=== PATIENT | female | born 1945 | race Caucasian/White ===

== ENCOUNTER → 2016-08-25 | Outpatient (CLI) | payer MEDICARE, OTHER ==
[~2016-08-25] MED LIST: ACET-2469 PO; ALPR0.254 PO; AMLO5TAB2 PO; ASPI-999 PO; CYCL10TA9 PO; DIPH25TA49 PO; DOCU-238 PO; FURO-125 PO; GLYC10.7 IH; LISI-552 PO; METO-395 PO; OMEP40CA36 PO; OXYC-471 PO; PIRO20CA2 PO; PRD10T PO; SIMV40TA4 PO; TRIA1CAP4 PO
== END ==
LOC: CARD 14:51
PROVIDERS: ATTEND Internal Medicine Cardiovascular Disease
DX: I25.10 Atherosclerotic heart disease of native coronary artery without angina pectoris (principal); I10 Essential (primary) hypertension; R06.02 Shortness of breath; Z72.0 Tobacco use
CPT/HCPCS: 93306

== ENCOUNTER → 2016-08-27 | Outpatient (CLI) | payer MEDICARE, OTHER ==
--- NOTE | 2016-08-27 12:28 | Diagnostic Imaging Report ---
PROCEDURE: Lung cancer screening CT chest without contrast. TECHNIQUE: Multiple contiguous axial images were obtained through the chest without the use of intravenous contrast. This is performed with a low-dose protocol. INDICATION: Currently asymptomatic patient with 46 pack years history of smoking. Comparison: None. Findings: There is upper lobe predominant emphysema. There is a noncalcified nonspecific 6 mm nodule in the right lower lobe, axial image 36 and 6 mm left lower lobe nodule image 37 seen. There are other nodules that are calcified, less than a centimeter in size in the left lung base and there are calcified lymph nodes in the right hilum. There are focal areas of consolidation with suggestion of volume loss within the medial segment of the right middle lobe and the inferior lingula suggestive of scarring or atelectasis. No fibrotic changes or bronchiectasis. The mediastinum demonstrates no significantly enlarged noncalcified nodes. No enlarged axillary lymph nodes. Normal caliber of the thoracic aorta is seen. The heart size is normal. No pericardial or pleural effusion. Moderate coronary artery calcified atherosclerotic plaque is seen. The osseous structures demonstrate an age-indeterminate compression fracture of T6 vertebral body. Nonspecific slightly asymmetric parenchymal densities are seen in the breast, possibly a normal variation. Correlation with clinical exam and mammography is recommended. IMPRESSION: 1. Noncalcified bilateral lower lobe 6 mm pulmonary nodules seen. Other calcified nodules are suggestive of prior granulomatous infection. Six months followup for the noncalcified nodules recommended. 2. Nonspecific atelectasis or scarring is seen in the medial segment of the right middle lobe, and in the inferior lingula presumably sequela of prior infection. 3. Mild emphysema. 4. Age-indeterminate compression fracture of T6 vertebral body. 5. Nonspecific slightly asymmetric appearance of the breast parenchyma could be a normal variation. Correlate with mammography and breast ultrasound. Lung Rads Category 3. Likely benign. Recommendations: 6 months low-dose CT scan followup exam. Also clinical correlation for the other findings and mammography evaluation is suggested. Dictated by: Dictated on workstation # [id number]
== END ==
LOC: RAD 11:08 → EDUNIT# 11:45
PROVIDERS: ATTEND Nurse Practitioner Family
DX: R91.8 Other nonspecific abnormal finding of lung field (principal); M48.54XA Collapsed vertebra, not elsewhere classified, thoracic region, initial encounter for fracture; N64.89 Other specified disorders of breast; F17.210 Nicotine dependence, cigarettes, uncomplicated

== ENCOUNTER → 2016-09-10 | Outpatient (CLI) | payer MEDICARE, OTHER ==
[~2016-09-10] MED LIST changes: -ACET-2469 PO; -ALPR0.254 PO; -AMLO5TAB2 PO; -ASPI-999 PO; -CYCL10TA9 PO; -DIPH25TA49 PO; -DOCU-238 PO; -FURO-125 PO; -GLYC10.7 IH; -LISI-552 PO; -METO-395 PO; -OMEP40CA36 PO; -OXYC-471 PO; -PIRO20CA2 PO; -PRD10T PO; +RT-ALBUTEROL SULF 2.5 MG/3 ML PRE-MIX VIAL IH ONE; -SIMV40TA4 PO; -TRIA1CAP4 PO
== END ==
LOC: EDUNIT# 08-30 16:45 → RT 14:51
PROVIDERS: ATTEND Nurse Practitioner Family
DX: R06.02 Shortness of breath (principal); F17.200 Nicotine dependence, unspecified, uncomplicated
CPT/HCPCS: 94060; 94640; 94726; 94729

== ENCOUNTER → 2016-10-04 | Outpatient (CLI) | payer MEDICARE, OTHER | LOC: LAB 08:20 | PROVIDERS: ATTEND Nurse Practitioner Family | DX: R06.02 Shortness of breath (principal) ==

== ENCOUNTER → 2016-10-04 | Outpatient (CLI) | payer MEDICARE, OTHER ==
[~2016-10-04] VITALS: Ht 160 cm; Wt 64.9 kg
[~2016-10-04] MED LIST changes: +CATHETER FLUSH 10 ML SYR IV PRN; +REGADENOSON 0.4 MG/5 ML SYR (LEXISCAN) IV ONE; -RT-ALBUTEROL SULF 2.5 MG/3 ML PRE-MIX VIAL IH ONE
[2016-10-04 09:29] VITALS: BP 157/121
--- NOTE | 2016-10-04 12:29 | STRESS TEST ---
DATE OF SERVICE: 10/04/2016 LEXISCAN MYOVIEW STRESS TEST REPORT REFERRING PHYSICIAN: There is no local physician. Baseline heart rate is 71. Baseline blood pressure is 157/120. Baseline EKG is sinus rhythm with no ischemic changes. SUMMARY: The patient was injected with 10.43 mCi of technetium-99 Myoview and the resting images were obtained. Then, the patient received 0.4 mg of Lexiscan followed by 32.5 mCi of technetium-99 Myoview. Throughout the test, there were no EKG changes. The resting and stress images were reviewed and compared in the short axis, horizontal long axis, and vertical long axis views. Review of the images showed good radiotracer uptake with no significant ischemia or infarction with SSS is zero TID value 1.07. On the gated images, the left ventricle appeared to be normal size with normal contractility, calculated ejection fraction 84%. CONCLUSION: 1. The patient tolerated Lexiscan well. 2. No ischemia or infarction on SPECT images. 3. Normal left ventricular size with normal contractility, calculated ejection fraction 84%. Job ID: [id number] DocumentID: [id number] Dictated Date: 10/04/2016 11:51:54 Manager Multicultural Date: 10/04/2016 12:23:32 Dictated By: ORTEGA SCHAEFFER MD
== END ==
LOC: CARD 08:14 → EDUNIT# 10:45
PROVIDERS: ATTEND Internal Medicine Cardiovascular Disease
DX: I25.10 Atherosclerotic heart disease of native coronary artery without angina pectoris (principal); I10 Essential (primary) hypertension; R06.02 Shortness of breath; Z72.0 Tobacco use
CPT/HCPCS: 78452; 93017

== ENCOUNTER 2016-11-22 09:15 | Outpatient (CLI) | payer MEDICARE, OTHER ==
[~2016-11-22] VITALS: Ht 154.9 cm; Wt 69.4 kg
[2016-11-22 09:24] VITALS: BP 138/71
[2016-11-22] MEDS ORDERED: GLYC10.7 IH (09:45)
[2016-11-22] MEDS ORDERED: DOCU-238 PO (09:45)
[2016-11-22] MEDS ORDERED: METO-274 PO (09:45)
[2016-11-22] MEDS ORDERED: ALPR0.254 PO (09:45)
[2016-11-22] MEDS ORDERED: ACET-2469 PO (09:45)
[2016-11-22] MEDS ORDERED: TRIA1CAP4 PO (09:45)
[2016-11-22] MEDS ORDERED: ASPI-999 PO (09:45)
[2016-11-22] MEDS ORDERED: SIMV40TA4 PO (09:45)
[2016-11-22] MEDS ORDERED: DIPH25TA49 PO (09:45)
[2016-11-22] MEDS ORDERED: OMEP40CA36 PO (09:45)
[2016-11-22] MEDS ORDERED: LISI-552 PO (09:45)
[2016-11-22] MEDS ORDERED: PIRO20CA2 PO (09:45)
[2016-11-22 10:24] LABS: BASOPHILS % (AUTO) 0 % (0-10); EOSINOPHILS # (AUTO) 0.2 10^3/uL (0.0-0.3); EOSINOPHILS % (AUTO) 2 % (0-10); LYMPHOCYTES # (AUTO) 2.5 X 10^3 (1.0-4.0); LYMPHOCYTES % (AUTO) 33 % (12-44); MEAN CORPUSCULAR HEMOGLOBIN 31 PG (25-34); MEAN CORPUSCULAR HGB CONC 34 G/DL (32-36); MEAN CORPUSCULAR VOLUME 90 FL (80-99); MEAN PLATELET VOLUME 9.3 FL (7.4-10.4); MONOCYTES # (AUTO) 0.8 X 10^3 (0.0-1.0); MONOCYTES % (AUTO) 11 % (0-12); NEUTROPHILS # (AUTO) 3.9 X 10^3 (1.8-7.8); NEUTROPHILS % (AUTO) 53 % (42-75); PLATELET COUNT 241 10^3/uL (130-400); RED BLOOD COUNT 4.96 10^6/uL (4.35-5.85); RED CELL DISTRIBUTION WIDTH 13.2 % (10.0-14.5); WHITE BLOOD COUNT 7.4 10^3/uL (4.3-11.0)
[2016-11-22 10:55] LABS: ANION GAP 12 MMOL/L (5-14); BLOOD UREA NITROGEN 22 MG/DL (7-18); BUN/CREATININE RATIO 28; CALCIUM 9.2 MG/DL (8.5-10.1); CARBON DIOXIDE 25 MMOL/L (21-32); CHLORIDE 98 MMOL/L (98-107); CREATININE SERUM 0.78 MG/DL (0.60-1.30); GFR ESTIMATED > 60; GLUCOSE 99 MG/DL (70-105); POTASSIUM 4.5 MMOL/L (3.6-5.0); SODIUM 135 MMOL/L (135-145)
== END 2016-11-22 10:15 | disposition home or self-care (01) ==
LOC: PREOP 09:15
PROVIDERS: ATTEND Orthopaedic Surgery
DX: Z01.812 Encounter for preprocedural laboratory examination (principal); M48.061 Spinal stenosis, lumbar region without neurogenic claudication
CPT/HCPCS: 36415; 80048; 85025; 86850; 86900; 86901; 87081

== ENCOUNTER 2016-12-06 07:45 | Inpatient (IN) | payer MEDICARE, OTHER ==
[2016-12-06] VITALS (10 sets, daily range): BP systolic 74–150; BP diastolic 42–86
[~2016-12-06] VITALS: Ht 154.9 cm; Wt 69.4 kg
[~2016-12-06 07:45] MED LIST changes: +ACET-2469 PO; +ALPR0.254 PO; +ASPI-999 PO; -CATHETER FLUSH 10 ML SYR IV PRN; +DIPH25TA49 PO; +DOCU-238 PO; +GLYC10.7 IH; +LISI-552 PO; +METO-274 PO; +OMEP40CA36 PO; +PIRO20CA2 PO; -REGADENOSON 0.4 MG/5 ML SYR (LEXISCAN) IV ONE; +SIMV40TA4 PO; +TRIA1CAP4 PO
--- OUTSIDE RECORDS SUMMARY | 2016-12-06 07:53 | XMS REPORT ---
Author Author [facility] Medical Staff Organization [facility] Address [address] [id number] Phone [phone] Summary purpose TRANSITION OF CARE AUTO GENERATION Chief Complaint and Reason for Visit No authorized Reason for Visit (Admitting Diagnosis) is available for this visit. Problem list No authorized problems tracked for continuity of care are available for this visit. Encounters No authorized problems tracked for encounter diagnoses are available for this visit. Medications No medications recorded for this patient visit Allergies, adverse reactions, alerts Allergen Category Ingredient Status Reaction Severity Onset No known drug allergies No known drug allergies No known drug allergies Confirmed or Verified Immunizations No immunizations recorded for this patient visit Relevant diagnostic tests and/or laboratory data RESULTS Radiology Results [id number] Bilateral Screen Digital Mammo DATE OF EXAM: 2015 [facility] 0845-BILAT SCREEN DIG MAMMO : RADIOLOGY REPORT ADDENDED REPORT: DATE OF SERVICE: 05/28/15 HISTORY: Screening exam BILATERAL DIGITAL SCREENING MAMMOGRAM 0917 HOURS Comparison is made with 11/05/2013 and 10/10/2012. There are scattered residual fibroglandular densities. There are no masses or grouped microcalculi. There is no distortion or asymmetry. IMPRESSION: Negative mammograms BI-RADS I. Fidel White MD [facility]/mo05/28/2015 09:49:00 / 05/28/2015 09:53:01 cc:Dr. Rajesh Acosta This document has been electronically Signed by: FIDEL WHITE MD On: Jun 06 20154:40P History of procedures Procedure Code Code Type Description Date Performed Performing Physician 17608 CPT-4 MAMMOGRAM, SCREENING 05-28-2015 RAJESH ACOSTA 10870 CPT-4 COMP SCREEN MAMMOGRAM ADD-ON 05-28-2015 RAJESH ACOSTA Functional status No functional or cognitive status observations are available for this visit. Vital signs No authorized vital signs are available for this visit. Social history No Social History or smoking status observations were recorded for this visit. ( Unknown if ever smoked.) Treatment Plan No treatment plan text is available for this visit. Hospital discharge instructions No discharge instruction text is available for this visit.
--- OUTSIDE RECORDS SUMMARY | 2016-12-06 07:54 | XMS REPORT | Clinical Summary ---
Author Author Admin, HILARIA Organization [employer] Address Unknown Phone Unavailable Allergies, Adverse Reactions, Alerts Allergy Name Reaction Description Start Date Severity Status Provider HYDROCODONE Critical Active Danuta Modi Conditions or Problems Problem Name Problem Code Onset Date Status Entry Date Provider Comment Standard Description Annotate HYPERTENSION 401.9 Active Gareth Cancino MD Unspecified essential hypertension HYPERCHOLESTEROLEMIA, PURE 272.0 Active Gareth Cancino MD Pure hypercholesterolemia NICOTINE ADDICTION 305.1 Active Gareth Cancino MD Tobacco use disorder INSOMNIA 780.52 Active Gareth Cancino MD Insomnia, unspecified HYPERLIPIDEMIA, OTHER UNSPECIFIED 272.4 Active Gareth Cancino MD Other and unspecified hyperlipidemia PREVENTIVE HEALTH CARE V70.0 Active Gareth Cancino MD Routine general medical examination at a health care facility SKIN LESION 709.9 Active Gareth Cancino MD Unspecified disorder of skin and subcutaneous tissue CAULIFLOWER EAR 738.7 Active Gareth Cancino MD Cauliflower ear DYSPLASTIC NEVUS, CHEST 216.5 Active Gareth Cancino MD Benign neoplasm of skin of trunk, except scrotum DYSPLASTIC NEVUS, FACE 216.3 Active Gareth Cancino MD Benign neoplasm of skin of other and unspecified parts of face SEBACEOUS CYST 706.2 Active Gareth Cancino MD Sebaceous cyst ENCOUNTER FOR REMOVAL OF SUTURES V58.32 Active Gareth Cancino MD Encounter for removal of sutures BRONCHITIS, ACUTE WITH MILD BRONCHOSPASM 466.0 Active Noman Edwards DO Acute bronchitis URINARY FREQUENCY 788.41 Active Danuta Modi Urinary frequency URINARY HESITANCY 788.64 Active Gareth Cancino MD Urinary hesitancy TOBACCO ABUSE 305.1 Active Gareth Cancino MD Tobacco use disorder SEBORRHEIC KERATOSIS 702.19 Active Gareth Cancino MD Other seborrheic keratosis COPD 496 Active Gareth Cancino MD Chronic airway obstruction, not elsewhere classified ACTINIC KERATOSIS, CHEEK, LEFT 702.0 Active Gareth Cancino MD Actinic keratosis Rib pain, left sided 786.50 Active Gareth Cancino MD Unspecified chest pain Bronchitis-Acute 466.0 Inactive Gareth Cancino MD Acute bronchitis GERD 530.81 Active Gareth Cancino MD Esophageal reflux Dysuria 788.1 Active Gareth Cancino MD Dysuria Contact dermatitis 692.9 Active Gareth Cancino MD Contact dermatitis and other eczema, unspecified cause Skin lesion 709.9 Active 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 Unspecified disorder of skin and subcutaneous tissue Folliculitis 704.8 Active Gareth Cancino MD Other specified diseases of hair and hair follicles Low back pain, chronic 724.2 Active Gareth Cancino MD Lumbago Frequency of urination 788.41 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 Urinary frequency Actinic keratosis 702.0 Active Gareth Cancino MD Actinic keratosis Pneumonia 486 Active Gareth Cancino MD Pneumonia, organism unspecified Hypokalemia 276.8 Active Gareth Cancino MD Hypopotassemia Spinal stenosis 724.00 Active Gareth Cancino MD Spinal stenosis of unspecified region Bronchitis-Acute ICD-466.0 Inactive Gareth Cancino MD Medication List Medication Instructions Start Date Stop Date Generic Name NDC Status Provider Patient Instruction IPRATROPIUM-ALBUTEROL 0.5-2.5 (3) MG/3ML INH SOLN nebulize 1 vial every 6hrs prn shortness of breath IPRATROPIUM-ALBUTEROL 11346028985 Active Gareth Cancino MD Active FENTANYL 25 MCG/HR PT72 Apply to clean, dry skin and change every 72 hours FENTANYL 17922310255 Active Gareth Cancino MD Active AZITHROMYCIN 250 MG ORAL TABS 1 tab daily AZITHROMYCIN 32021126598 Active Gareth Cancino MD Active WELLBUTRIN SR 150 MG ORAL [id number] take 1 tab po BID BUPROPION HCL 71333379564 No Longer Active Gareth Cancino MD Active ZOFRAN 4 MG ORAL TABS 1 by mouth every 6 hours prn nausea ONDANSETRON HCL 12237022598 Active Tangela Forte Active TRAMADOL HCL 50 MG TABS 1 po tid PRN TRAMADOL HCL 10978855266 Active Danuta Modi Active HYDROCODONE-ACETAMINOPHEN 5-325 MG TABS 1 tab by mouth every 6 hours as needed for bck pain HYDROCODONE-ACETAMINOPHEN 03143881138 Active Gareth Cancino MD Active ALPRAZOLAM 0.25 MG TAB 1/2 to 1 tablet by mouth qhs prn ALPRAZOLAM 55796885350 No Longer Active Gareth Cancino MD Active CLOBETASOL PROPIONATE 0.05 % CREA apply to hand rash bid CLOBETASOL PROPIONATE 83874699665 No Longer Active Gareth Cancino MD Active BACTROBAN 2 % CREAM Apply to affected area BID MUPIROCIN CALCIUM 01365709203 No Longer Active Gareth Cancino MD Active LISINOPRIL 20 MG TABS 1 tablet by mouth daily for high blood pressure 10/14 LISINOPRIL 09061188659 Active Gareth Cancino MD Active BACTRIM DS 800-160 MG TAB 1 tab by mouth twice daily TRIMETHOPRIM-SULFAMETHOXAZOLE 64952498906 No Longer Active Gareth Cancino MD Active METOPROLOL SUCCINATE ER 100 MG [id number] 1 pill by mouth daily, for blood pressure METOPROLOL SUCCINATE 13549541451 Active Gareth Cancino MD Active KEFLEX 500 MG CAP 1 po TID x 10 days CEPHALEXIN 02013374414 No Longer Active Blanca Castillo APRN Active METOPROLOL SUCCINATE 50 MG TB24 1 tablet by mouth daily METOPROLOL SUCCINATE 85917760316 No Longer Active Gareth Cancino MD Active OMEPRAZOLE 20 MG TBEC Take one by mouth daily OMEPRAZOLE 77895740839 No Longer Active Gareth Cancino MD Active OMEPRAZOLE 40 MG CPDR 1 tab po qday for acid reflux. OMEPRAZOLE 32132616880 Active Mary Shah APRN Active LEVAQUIN 500 MG TAB 1 tablet by mouth daily LEVOFLOXACIN 10892217442 No Longer Active Gareth Cancino MD Active ALEVE 220 MG TAB 2 tab po qd NAPROXEN SODIUM 90897861670 Active Gareth Cancino MD Active ASPIRIN 81 MG CHEW TAB 1 tablet by mouth daily ASPIRIN 61526449974 Active Gareth Cancino MD Active VENTOLIN HFA 108 (90 BASE) MCG/ACT AERS 1-2 puffs four times a day PRN shortness of breath ALBUTEROL SULFATE 08237380291 Active Mary Shah APRN Active CENTRUM SILVER TABS 1 TAB PO DAILY MULTIPLE VITAMINS-MINERALS 79212407708 Active Gareth Cancino MD Active VITAMIN B12 100 MCG TABS 1 TAB PO DAILY CYANOCOBALAMIN 79628522692 Active Gareth Cancino MD Active CIPRO 500 MG TABS 1 TAB PO BID CIPROFLOXACIN HCL 60187441843 No Longer Active Gareth Cancino MD Active BACTRIM DS 800-160 MG TAB 1 tab by mouth twice daily TRIMETHOPRIM-SULFAMETHOXAZOLE 70462534138 No Longer Active Gareth Cancino MD Active PREDNISONE 20 MG TAB 1 tab po BID for 3 days, then 1 tab po qday for 3 days PREDNISONE 07815766838 No Longer Active Gareth Cancino MD Active FOLIC ACID 800 MCG TABS Take one by mouth daily FOLIC ACID 81167214476 No Longer Active Gareth Cancino MD Active VITAMIN B-6 250 MG TABS Take one by mouth daily PYRIDOXINE HCL 60124431594 No Longer Active Gareth Cancino MD Active B-12 1000 MCG CAPS Take one by mouth daily CYANOCOBALAMIN 16580671516 No Longer Active Gareth Cancino MD Active DOXYCYCLINE HYCLATE 100 MG CAP 1 cap by mouth twice daily DOXYCYCLINE HYCLATE 59552991176 No Longer Active Gareth Cancino MD Active PREDNISONE 20 MG TAB 1 po bid 3 days, then 1 po q day 3 days 2011 PREDNISONE 01627720552 No Longer Active Gareth Cancino MD Active CHANTIX STARTING MONTH RUBEN 0.5 MG X 11 & 1 MG X 42 TABS 0.5mg daily for 3 days , then 0.5mg BID for 4 days, then 1mg BID VARENICLINE TARTRATE 26104988619 No Longer Active Gareth Cancino MD Active SIMVASTATIN 40 MG TABS Take one by mouth daily SIMVASTATIN 63314457956 Active Gareth Cancino MD Active TRIAMTERENE-HCTZ 37.5-25 MG CAPS Take one by mouth daily TRIAMTERENE- HCTZ 14273204591 Active Gareth Cancino MD Active CHANTIX STARTING MONTH RUBEN 0.5 MG X 11 & 1 MG X 42 TABS 0.5mg daily for 3 days , then 0.5mg BID for 4 days, then 1mg BID CHANTIX STARTING MONTH RUBEN 0.5 MG X 11 & 1 MG X 42 TABS VARENICLINE TARTRATE Inactive PREDNISONE 20 MG TAB 1 po bid 3 days, then 1 po q day 3 days 2011 PREDNISONE 20 MG TAB 004399 PREDNISONE Inactive DOXYCYCLINE HYCLATE 100 MG CAP 1 cap by mouth twice daily DOXYCYCLINE HYCLATE 100 MG CAP 4873301 DOXYCYCLINE HYCLATE Inactive B-12 1000 MCG CAPS Take one by mouth daily B-12 1000 MCG CAPS CYANOCOBALAMIN Inactive VITAMIN B-6 250 MG TABS Take one by mouth daily VITAMIN B-6 250 MG TABS PYRIDOXINE HCL Inactive FOLIC ACID 800 MCG TABS Take one by mouth daily FOLIC ACID 800 MCG TABS 454423 FOLIC ACID Inactive CIPRO 500 MG TABS 1 TAB PO BID CIPRO 500 MG TABS 224963 CIPROFLOXACIN HCL Inactive OMEPRAZOLE 20 MG TBEC Take one by mouth daily OMEPRAZOLE 20 MG TBEC 554966 OMEPRAZOLE Inactive METOPROLOL SUCCINATE 50 MG TB24 1 tablet by mouth daily METOPROLOL SUCCINATE 50 MG TB24 METOPROLOL SUCCINATE Inactive BACTROBAN 2 % CREAM Apply to affected area BID BACTROBAN 2 % CREAM 707142 MUPIROCIN CALCIUM Inactive CLOBETASOL PROPIONATE 0.05 % CREA apply to hand rash bid CLOBETASOL PROPIONATE 0.05 % CREA 545057 CLOBETASOL PROPIONATE Inactive ALPRAZOLAM 0.25 MG TAB 1/2 to 1 tablet by mouth qhs prn ALPRAZOLAM 0.25 MG TAB 323994 ALPRAZOLAM Inactive WELLBUTRIN SR 150 MG ORAL [id number] take 1 tab po BID WELLBUTRIN SR 150 MG ORAL [id number] BUPROPION HCL Inactive PREDNISONE 20 MG TAB 1 tab po BID for 3 days, then 1 tab po qday for 3 days PREDNISONE 20 MG TAB 520834 PREDNISONE Inactive BACTRIM DS 800-160 MG TAB 1 tab by mouth twice daily BACTRIM DS 800-160 MG TAB 518192 TRIMETHOPRIM-SULFAMETHOXAZOLE Inactive LEVAQUIN 500 MG TAB 1 tablet by mouth daily LEVAQUIN 500 MG TAB 887263 LEVOFLOXACIN Inactive KEFLEX 500 MG CAP 1 po TID x 10 days KEFLEX 500 MG CAP 369882 CEPHALEXIN Inactive BACTRIM DS 800-160 MG TAB 1 tab by mouth twice daily BACTRIM DS 800-160 MG TAB 435251 TRIMETHOPRIM-SULFAMETHOXAZOLE Inactive Vital Signs Date Name Value Unit Range Description blood pressure, diastolic - 8462-4 88 mm[Hg] BP mcmahon blood pressure, systolic - 8480-6 150 mm[Hg] BP sys pulse rate E&M - 8867-4 70 /min Heart rate temperature E&M 98.2 [degF] Body temperature weight E&M - 3141-9 156 [lb_av] Weight Measured blood pressure, diastolic - 8462-4 88 mm[Hg] BP mcmahon blood pressure, systolic - 8480-6 170 mm[Hg] BP sys pulse rate E&M - 8867-4 72 /min Heart rate temperature E&M 98.2 [degF] Body temperature weight E&M - 3141-9 156.5 [lb_av] Weight Measured blood pressure, diastolic - 8462-4 67 mm[Hg] BP mcmahon blood pressure, systolic - 8480-6 159 mm[Hg] BP sys pulse rate E&M - 8867-4 70 /min Heart rate temperature E&M 98.4 [degF] Body temperature weight E&M - 3141-9 157 [lb_av] Weight Measured Diagnostic Results Date Name Value Unit Range Description Lab Report: Basic Metabolic Panel - Chemistry sodium, serum 133 mmol/L 606-624 1206/08/24 potassium, serum 4.4 mmol/L 3.5-5.2 chloride, serum 95 mmol/L 98-107 carbon dioxide, venous blood 33.0 mmol/L 21.0-32.0 blood glucose 107 mg/dL 65-110 calcium, serum 8.8 mg/dL 8.5-10.1 urea nitrogen, blood 12 mg/dL 7-18 creatinine, serum 0.69 mg/dL 0.55-1.30 Lab Report: CBC, Basic Metabolic Panel - Chemistry sodium, serum 132 mmol/L 168-966 1637/10/12 potassium, serum 4.7 mmol/L 3.5-5.2 chloride, serum 95 mmol/L 98-107 carbon dioxide, venous blood 30.5 mmol/L 21.0-32.0 blood glucose 103 mg/dL 65-110 calcium, serum 8.7 mg/dL 8.5-10.1 urea nitrogen, blood 11 mg/dL 7-18 creatinine, serum 0.56 mg/dL 0.55-1.30 Lab Report: CBC, Basic Metabolic Panel - Hematology leukocyte count, blood 5.9 10^3/MM^3 10*3/mm3 4.6-10.2 erythrocyte (RBC) count 4.29 10^6/MM^3 10*6/mm3 4.04-5.48 hemoglobin, blood 14.1 g/dL 12.0-16.0 hematocrit, blood 40.7 % 36.0-46.0 mean corpuscular volume, RBC 95 fL 80-97 mean corpuscular hemoglobin, RBC 33.0 pg 27.0-31.2 mean corpuscular hemoglobin concentration, RBC 34.8 G/DL % 31.8- 35.4 red blood cell distribution width 12.9 % 11.6-14.8 platelet count 305 10^3/MM^3 10*3/mm3 142-424 Lab Report: Lipid Panel, Comp. Metabolic Panel, CBC W/DIFF, MICROALB/CRE ... - Chemistry cholesterol, serum 195 mg/dL 355-019 1861/12/02 triglyceride, serum, fasting 74 mg/dL 30-200 HDL cholesterol, serum 52 mg/dL 32-96 LDL cholesterol, serum 128 mg/dL 0-130 sodium, serum 134 mmol/L 001-037 2318/12/02 carbon dioxide, venous blood 30.3 mmol/L 21.0-32.0 potassium, serum 5.2 mmol/L 3.5-5.2 chloride, serum 97 mmol/L 98-107 blood glucose 103 mg/dL 65-110 urea nitrogen, blood 13 mg/dL 7-18 creatinine, serum 0.76 mg/dL 0.55-1.30 alanine aminotransferase (SGPT), serum 24 U/L 12-78 aspartate aminotransferase (SGOT), serum 19 U/L 15-37 calcium, serum 9.2 mg/dL 8.5-10.1 bilirubin, serum, total 0.50 mg/dL 0.00-1.00 albumin/creatinine ratio, urine < 30 mg/g mg/g{creat} 0-29 Lab Report: Lipid Panel, Comp. Metabolic Panel, CBC W/DIFF, MICROALB/CRE ... - Hematology leukocyte count, blood 6.2 10^3/MM^3 10*3/mm3 4.6-10.2 neutrophils as percent of blood leukocytes 48.0 % 42.2-75.2 monocytes as percent of blood leukocytes 5.3 % 1.7-9.3 lymphocytes as percent of blood leukocytes 42.6 % 20.5-51.1 erythrocyte (RBC) count 4.45 10^6/MM^3 10*6/mm3 4.04-5.48 hemoglobin, blood 15.0 g/dL 12.0-16.0 hematocrit, blood 42.8 % 36.0-46.0 mean corpuscular volume, RBC 96 fL 80-97 mean corpuscular hemoglobin, RBC 33.6 pg 27.0-31.2 mean corpuscular hemoglobin concentration, RBC 35.0 G/DL % 31.8- 35.4 red blood cell distribution width 13.3 % 11.6-14.8 platelet count 277 10^3/MM^3 10*3/mm3 142-424 Lab Report: Lipid Panel, Comp. Metabolic Panel, CBC W/DIFF, MICROALB/CRE ... - Lab microalbumin, urine 10 0-19 Lab Report: UADIP W/MICRO, AUTO - Chemistry protein, total urine random Negative mg/dL Negative RBC, urine, dipstick Negative Negative Lab Report: UADIP W/MICRO, AUTO - Urinalysis urobilinogen, urine, semiquantitative (dipstick) 0.2 Normal leukocyte esterase, urine, by dipstick Negative Negative nitrite, urine, semiquantitative Negative Negative glucose, urine, semiquantitative Negative Negative ketones, urine, by test strip Negative Negative bilirubin, urine Negative Negative urine color Yellow Colorless;Lightyellow;Straw;Yellow appearance, urine Clear Clear specific gravity, urine 1.015 1.000-1.030 pH, urine, semiquantitative 7.5 5.0-8.5 Encounters Code Encounter Date Provider Facility CPT-21752 Level 4 Est. Patient 09:00:18 CDT Gareth Cancino MD [facility]-63383 Level 3 Est. Patient 15:12:03 CDT Gareth Cancino MD [facility] CPT-63781 Level 3 Est. Patient 23:08:20 CDT Gareth Cancino MD [facility]-69383 Level 4 Est. Patient 20:40:10 CDT Gareth Cancino MD [facility]-18645 Level 4 Est. Patient 19:50:11 CDT Gareth Cancino MD [facility] CPT-41322 Level 3 Est. Patient 11:00:13 CDT Gareth Cancino MD [facility]-26244 Level 4 Est. Patient 11:20:21 CDT Gareth Cancino MD [facility]-53927 Level 4 Est. Patient 09:22:18 NETEZZA ARCHITECT Gareth Cancino MD [facility] CPT-13074 Level 3 Est. Patient 09:48:04 CDT Gareth Cancino MD [facility]-02684 Level 3 Est. Patient 10:13:16 CDT Gareth Cancino MD [facility] CPT-21209 Level 2 Est. Patient 18:36:56 CDT Gareth Cancino MD [facility] CPT-69973 Level 4 Est. Patient 13:50:53 CDT Gareth Cancino MD [facility] CPT-26199 Level 3 Est. Patient 14:58:33 NETEZZA ARCHITECT Gareth Cancino MD [facility]-44527 Level 4 Est. Patient 09:25:57 CDT Gareth Cancino MD [facility]-46246 Level 3 Est. Patient 20:39:33 CDT Noman Edwards DO [facility] CPT-03147 Level 2 Est. Patient 13:17:39 CDT Gareth Cancino MD [facility] CPT-04480 Level 3 Est. Patient 13:37:20 CDT Gareth Cancino MD [facility] CPT-70752 Level 3 Est. Patient 18:09:08 CDT Gareth Cancino MD [facility] CPT-67882 Level 4 Est. Patient 09:59:07 CDT Gareth Cancino MD [facility] Procedures Code Procedure Name Date Entry Date Standard Description CPT-50842 BMP - LAB USE ONLY 14:37:27 CDT CPT-27650 CBC - LAB USE ONLY 14:37:27 CDT CPT-12018 Venipuncture Draw Fee 14:37:27 CDT CPT-TCMM Transitional Care Mgmt-Moderate 14:43:38 CDT CPT-64759 Venipuncture Draw Fee 10:33:47 CDT CPT-82424 BMP - LAB USE ONLY 10:33:46 CDT CPT-Cryo Cryotherapy 15:12:03 CDT CPT-41111 LS spine AP and Lat - XRAY USE ONLY 10:31:51 CDT 07/27 CPT-12879 Punch biopsy 1 lsn 20:40:09 CDT CPT-G0008 Administration of Influenza Virus Vaccine 10:04:48 NETEZZA ARCHITECT CPT-16854 Fluzone High-Dose Intramuscular Suspension 10:04:48 NETEZZA ARCHITECT CPT-66510 Ribs unilat w PA chst min 3V 10:45:40 CDT CPT-LR Lesion Removal 13:14:55 CDT CPT-Cryo Cryotherapy 13:14:55 CDT CPT-73722 Venipuncture Draw Fee 10:25:49 CDT CPT-98875 Administration single or combination vaccine inc oral 13 :22:14 NETEZZA ARCHITECT CPT-57267 Influenza High Dose age 65+ 13:22:14 NETEZZA ARCHITECT
--- OUTSIDE RECORDS SUMMARY | 2016-12-06 07:55 | XMS REPORT | Clinical Summary ---
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 Unspecified disorder of skin and subcutaneous tissue Folliculitis 704.8 Active Gareth Cancino MD Other specified diseases of hair and hair follicles Bronchitis-Acute ICD-466.0 Inactive Gareth Cancino MD Medication List Medication Instructions Start Date Stop Date Generic Name NDC Status Provider Patient Instruction ALPRAZOLAM 0.25 MG TAB 1/2 to 1 tablet by mouth qhs prn ALPRAZOLAM 86931062223 No Longer Active Gareth Cancino MD Active CLOBETASOL PROPIONATE 0.05 % CREA apply to hand rash bid CLOBETASOL PROPIONATE 16589960398 No Longer Active Gareth Cancino MD Active BACTROBAN 2 % CREAM Apply to affected area BID MUPIROCIN CALCIUM 37948615667 No Longer Active Gareth Cancino MD Active LISINOPRIL 20 MG TABS 1 tablet by mouth daily for high blood pressure 10/14 LISINOPRIL 51729696663 Active Gareth Cancino MD Active BACTRIM DS 800-160 MG TAB 1 tab by mouth twice daily TRIMETHOPRIM-SULFAMETHOXAZOLE 85610277029 No Longer Active Gareth Cancino MD Active METOPROLOL SUCCINATE ER 100 MG [id number] 1 pill by mouth daily, for blood pressure METOPROLOL SUCCINATE 99669739431 Active Gareth Cancino MD Active KEFLEX 500 MG CAP 1 po TID x 10 days CEPHALEXIN 67052579713 No Longer Active Blanca Castillo APRN Active WELLBUTRIN SR 150 MG ORAL [id number] take 1 tab po BID BUPROPION HCL 53935028578 Active Gareth Cancino MD Active METOPROLOL SUCCINATE 50 MG TB24 1 tablet by mouth daily METOPROLOL SUCCINATE 24517584228 No Longer Active Gareth Cancino MD Active OMEPRAZOLE 20 MG TBEC Take one by mouth daily OMEPRAZOLE 38755579658 No Longer Active Gareth Cancino MD Active OMEPRAZOLE 40 MG CPDR 1 tab po qday for acid reflux. OMEPRAZOLE 11104527022 Active Mary Shah APRN Active LEVAQUIN 500 MG TAB 1 tablet by mouth daily LEVOFLOXACIN 19784934708 No Longer Active Gareth Cancino MD Active ALEVE 220 MG TAB 2 tab po qd NAPROXEN SODIUM 06263611399 Active Gareth Cancino MD Active ASPIRIN 81 MG CHEW TAB 1 tablet by mouth daily ASPIRIN 72606085877 Active Gareth Cancino MD Active VENTOLIN HFA 108 (90 BASE) MCG/ACT AERS 1-2 puffs four times a day PRN shortness of breath ALBUTEROL SULFATE 55084883267 Active Mary Shah FINANCIAL SALES CONSULTANT Active CENTRUM SILVER TABS 1 TAB PO DAILY MULTIPLE VITAMINS-MINERALS 43556263161 Active Gareth Cancino MD Active VITAMIN B12 100 MCG TABS 1 TAB PO DAILY CYANOCOBALAMIN 64831174112 Active Gareth Cancino MD Active CIPRO 500 MG TABS 1 TAB PO BID CIPROFLOXACIN HCL 32236314443 No Longer Active Gareth Cancino MD Active BACTRIM DS 800-160 MG TAB 1 tab by mouth twice daily TRIMETHOPRIM-SULFAMETHOXAZOLE 30552197935 No Longer Active Gareth Cancino MD Active PREDNISONE 20 MG TAB 1 tab po BID for 3 days, then 1 tab po qday for 3 days PREDNISONE 76589095034 No Longer Active Gareth Cancino MD Active FOLIC ACID 800 MCG TABS Take one by mouth daily FOLIC ACID 97341115159 No Longer Active Gareth Cancino MD Active VITAMIN B-6 250 MG TABS Take one by mouth daily PYRIDOXINE HCL 19397434917 No Longer Active Gareth Cancino MD Active B-12 1000 MCG CAPS Take one by mouth daily CYANOCOBALAMIN 55050192046 No Longer Active Gareth Cancino MD Active DOXYCYCLINE HYCLATE 100 MG CAP 1 cap by mouth twice daily DOXYCYCLINE HYCLATE 34164813986 No Longer Active Gareth Cancino MD Active PREDNISONE 20 MG TAB 1 po bid 3 days, then 1 po q day 3 days 2011 PREDNISONE 73323371283 No Longer Active Gareth Cancino MD Active CHANTIX STARTING MONTH RUBEN 0.5 MG X 11 & 1 MG X 42 TABS 0.5mg daily for 3 days , then 0.5mg BID for 4 days, then 1mg BID VARENICLINE TARTRATE 02048366751 No Longer Active Gareth Cancino MD Active SIMVASTATIN 40 MG TABS Take one by mouth daily SIMVASTATIN 20558288948 Active Gareth Cancino MD Active TRIAMTERENE-HCTZ 37.5-25 MG CAPS Take one by mouth daily TRIAMTERENE- HCTZ 66522539019 Active Gareth Cancino MD Active CHANTIX STARTING [...] 3 days 2011 PREDNISONE 20 MG TAB 551585 PREDNISONE Inactive DOXYCYCLINE HYCLATE 100 MG CAP 1 cap by mouth twice daily DOXYCYCLINE HYCLATE 100 MG CAP 4002660 DOXYCYCLINE HYCLATE Inactive B-12 1000 MCG CAPS Take one by mouth daily B-12 1000 MCG CAPS CYANOCOBALAMIN Inactive VITAMIN B-6 250 MG TABS Take one by mouth daily VITAMIN B-6 250 MG TABS PYRIDOXINE HCL Inactive FOLIC ACID 800 MCG TABS Take one by mouth daily FOLIC ACID 800 MCG TABS 883194 FOLIC ACID Inactive CIPRO 500 MG TABS 1 TAB PO BID CIPRO 500 MG TABS 134168 CIPROFLOXACIN HCL Inactive OMEPRAZOLE 20 MG TBEC Take one by mouth daily OMEPRAZOLE 20 MG TBEC 252467 OMEPRAZOLE Inactive METOPROLOL SUCCINATE 50 MG TB24 1 tablet by mouth daily METOPROLOL SUCCINATE 50 MG TB24 METOPROLOL SUCCINATE Inactive BACTROBAN 2 % CREAM Apply to affected area BID BACTROBAN 2 % CREAM 939443 MUPIROCIN CALCIUM Inactive CLOBETASOL PROPIONATE 0.05 % CREA apply to hand rash bid CLOBETASOL PROPIONATE 0.05 % CREA 645456 CLOBETASOL PROPIONATE Inactive ALPRAZOLAM 0.25 MG TAB 1/2 to 1 tablet by mouth qhs prn ALPRAZOLAM 0.25 MG TAB 888281 ALPRAZOLAM Inactive PREDNISONE 20 MG TAB 1 tab po BID for 3 days, then 1 tab po qday for 3 days PREDNISONE 20 MG TAB 706136 PREDNISONE Inactive BACTRIM DS 800-160 MG TAB 1 tab by mouth twice daily BACTRIM DS 800-160 MG TAB 815901 TRIMETHOPRIM-SULFAMETHOXAZOLE Inactive LEVAQUIN 500 MG TAB 1 tablet by mouth daily LEVAQUIN 500 MG TAB 153615 LEVOFLOXACIN Inactive KEFLEX 500 MG CAP 1 po TID x 10 days KEFLEX 500 MG CAP 267055 CEPHALEXIN Inactive BACTRIM DS 800-160 MG TAB 1 tab by mouth twice daily BACTRIM DS 800-160 MG TAB 19820425 TRIMETHOPRIM-SULFAMETHOXAZOLE Inactive Vital Signs Date Name Value Unit Range Description blood pressure, diastolic - 8462-4 79 mm[Hg] BP mcmahon blood pressure, systolic - 8480-6 121 mm[Hg] BP sys pulse rate E&M - 8867-4 62 /min Heart rate temperature E&M 99.0 [degF] Body temperature weight E&M - 3141-9 161 [lb_av] Weight Measured blood pressure, diastolic - 8462-4 86 mm[Hg] BP mcmahon blood pressure, systolic - 8480-6 151 mm[Hg] BP sys pulse rate E&M - 8867-4 67 /min Heart rate temperature E&M 98.7 [degF] Body temperature weight E&M - 3141-9 161 [lb_av] Weight Measured blood pressure, diastolic - 8462-4 83 mm[Hg] BP mcmahon blood pressure, systolic - 8480-6 138 mm[Hg] BP sys pulse rate E&M - 8867-4 56 /min Heart rate temperature E&M 98.8 [degF] Body temperature weight E&M - 3141-9 158 [lb_av] Weight Measured blood pressure, diastolic - 8462-4 83 mm[Hg] BP mcmahon blood pressure, systolic - 8480-6 155 mm[Hg] BP sys pulse rate E&M - 8867-4 76 /min Heart rate temperature E&M 98.9 [degF] Body temperature weight E&M - 3141-9 160 [lb_av] Weight Measured Diagnostic Results Date Name Value Unit Range Description Lab Report: Lipid Panel, Comp. Metabolic Panel, CBC W/DIFF, MICROALB/CRE ... - Chemistry cholesterol, serum 195 mg/dL 409-137 4685/12/02 triglyceride, serum, fasting 74 mg/dL 30-200 HDL cholesterol, serum 52 mg/dL 32-96 LDL cholesterol, serum 128 mg/dL 0-130 sodium, serum 134 mmol/L 536-303 7589/12/02 carbon dioxide, venous blood 30.3 mmol/L 21.0-32.0 [...] ... - Lab microalbumin, urine 10 0-19 Encounters Code Encounter Date Provider Facility CPT-89899 Level 4 Est. Patient 20:40:10 CDT Gareth Cancino MD [facility] CPT-10385 Level 4 Est. Patient 19:50:11 CDT Gareth Cancino MD [facility] CPT-56851 Level 3 Est. Patient 11:00:13 CDT Gareth Cancino MD [facility] CPT-19651 Level 4 Est. Patient 11:20:21 CDT Gareth Cancino MD [facility] CPT-31375 Level 4 Est. 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 Patient 09:48:04 CDT Gareth Cancino MD [facility] CPT-20501 Level 3 Est. Patient 10:13:16 CDT Gareth Cancino MD [facility] CPT-42543 Level 2 Est. Patient 18:36:56 CDT Gareth Cancino MD [facility] CPT-03414 Level 4 Est. Patient 13:50:53 CDT Gareth Cancino MD [facility] CPT-72431 Level 3 Est. Patient 14:58:33 GRAIN ELEVATOR MAN Gareth Cancino MD [facility] CPT-72406 Level 4 Est. Patient 09:25:57 CDT Gareth Cancino MD [facility] CPT-35835 Level 3 Est. Patient 20:39:33 CDT Noman Edwards DO [facility] CPT-06439 Level 2 Est. Patient 13:17:39 CDT Gareth Cancino MD [facility] CPT-27703 Level 3 Est. Patient 13:37:20 CDT Gareth Cancino MD [facility] CPT-53277 Level 3 Est. Patient 18:09:08 CDT Gareth Cancino MD [facility] CPT-29599 Level 4 Est. Patient 09:59:07 CDT Gareth Cancino MD [facility] Procedures Code Procedure Name Date Entry Date Standard Description CPT-14116 LS spine AP and Lat - XRAY USE ONLY 10:31:51 CDT 07/27 CPT-13391 Punch biopsy 1 lsn 20:40:09 CDT CPT-G0008 Administration of Influenza Virus Vaccine 10:04:48 GRAIN ELEVATOR MAN CPT-74938 Fluzone High-Dose Intramuscular Suspension 10:04:48 GRAIN ELEVATOR MAN CPT-38138 Ribs ida w PA chst min 3V 10:45:40 CDT CPT-LR Lesion Removal 13:14:55 CDT CPT-Cryo Cryotherapy 13:14:55 CDT CPT-42267 Venipuncture Draw Fee 10:25:49 CDT CPT-71491 Administration single or combination vaccine inc oral 13 :22:14 GRAIN ELEVATOR MAN CPT-37249 Influenza High Dose age 65+ 13:22:14 GRAIN ELEVATOR MAN
--- OUTSIDE RECORDS SUMMARY | 2016-12-06 07:55 | XMS REPORT | Clinical Summary ---
Author Author Admin, Leon Organization [facility] Address Unknown Phone Unavailable Allergies, Adverse Reactions, Alerts Allergy Name Reaction Description Start Date Severity Status Provider No Known Allergies Tangela Raida Conditions or Problems Problem Name Problem Code [...] cause Skin lesion 709.9 Active Blanca Castillo APRN Unspecified disorder of skin and subcutaneous tissue Folliculitis 704.8 Active Gareth Cancino MD Other specified diseases of hair and hair follicles Low back pain, chronic 724.2 Active Gareth Cancino MD Lumbago Bronchitis-Acute ICD-466.0 Inactive Gareth Cancino MD Medication List Medication Instructions Start Date Stop Date Generic Name NDC Status Provider Patient Instruction ALPRAZOLAM 0.25 MG TAB 1/2 to 1 tablet by mouth qhs prn ALPRAZOLAM 86634958819 No Longer Active Gareth Cancino MD Active CLOBETASOL PROPIONATE 0.05 % CREA apply to hand rash bid CLOBETASOL PROPIONATE 32816197089 No Longer Active Gareth Cancino MD Active BACTROBAN 2 % CREAM Apply to affected area BID MUPIROCIN CALCIUM 78058688626 No Longer Active Gareth Cancino MD Active LISINOPRIL 20 MG TABS 1 tablet by mouth daily for high blood pressure 10/14 LISINOPRIL 36839008226 Active Gareth Cancino MD Active BACTRIM DS 800-160 MG TAB 1 tab by mouth twice daily TRIMETHOPRIM-SULFAMETHOXAZOLE 51430389573 No Longer Active Gareth Cancino MD Active METOPROLOL SUCCINATE ER 100 MG [id number] 1 pill by mouth daily, for blood pressure METOPROLOL SUCCINATE 45299877280 Active Gareth Cancino MD Active KEFLEX 500 MG CAP 1 po TID x 10 days CEPHALEXIN 56275134811 No Longer Active Blanca Castillo APRN Active WELLBUTRIN SR 150 MG ORAL [id number] take 1 tab po BID BUPROPION HCL 98739019348 Active Gareth Cancino MD Active METOPROLOL SUCCINATE 50 MG TB24 1 tablet by mouth daily METOPROLOL SUCCINATE 62322642830 No Longer Active Gareth Cancino MD Active OMEPRAZOLE 20 MG TBEC Take one by mouth daily OMEPRAZOLE 51127302494 No Longer Active Gareth Cancino MD Active OMEPRAZOLE 40 MG CPDR 1 tab po qday for acid reflux. OMEPRAZOLE 47756180307 Active Mary Shah APRN Active LEVAQUIN 500 MG TAB 1 tablet by mouth daily LEVOFLOXACIN 07755546743 No Longer Active Gareth Cancino MD Active ALEVE 220 MG TAB 2 tab po qd NAPROXEN SODIUM 92963622219 Active Gareth Cancino MD Active ASPIRIN 81 MG CHEW TAB 1 tablet by mouth daily ASPIRIN 53682220399 Active Gareth Cancino MD Active VENTOLIN HFA 108 (90 BASE) MCG/ACT AERS 1-2 puffs four times a day PRN shortness of breath ALBUTEROL SULFATE 94250585673 Active Mary Shah ENGRAVER JEWELRY Active CENTRUM SILVER TABS 1 TAB PO DAILY MULTIPLE VITAMINS-MINERALS 37839244312 Active Gareth Cancino MD Active VITAMIN B12 100 MCG TABS 1 TAB PO DAILY CYANOCOBALAMIN 44122814094 Active Gareth Cancino MD Active CIPRO 500 MG TABS 1 TAB PO BID CIPROFLOXACIN HCL 37322318831 No Longer Active Gareth Cancino MD Active BACTRIM DS 800-160 MG TAB 1 tab by mouth twice daily TRIMETHOPRIM-SULFAMETHOXAZOLE 27619564543 No Longer Active Gareth Cancino MD Active PREDNISONE 20 MG TAB 1 tab po BID for 3 days, then 1 tab po qday for 3 days PREDNISONE 70528009834 No Longer Active Gareth Cancino MD Active FOLIC ACID 800 MCG TABS Take one by mouth daily FOLIC ACID 93385722034 No Longer Active Gareth Cancino MD Active VITAMIN B-6 250 MG TABS Take one by mouth daily PYRIDOXINE HCL 00024457347 No Longer Active Gareth Cancino MD Active B-12 1000 MCG CAPS Take one by mouth daily CYANOCOBALAMIN 10103428813 No Longer Active Gareth Cancino MD Active DOXYCYCLINE HYCLATE 100 MG CAP 1 cap by mouth twice daily DOXYCYCLINE HYCLATE 69957278760 No Longer Active Gareth Cancino MD Active PREDNISONE 20 MG TAB 1 po bid 3 days, then 1 po q day 3 days 2011 PREDNISONE 22707294036 No Longer Active Gareth Cancino MD Active CHANTIX STARTING MONTH RUBEN 0.5 MG X 11 & 1 MG X 42 TABS 0.5mg daily for 3 days , then 0.5mg BID for 4 days, then 1mg BID VARENICLINE TARTRATE 17480467396 No Longer Active Gareth Cancino MD Active SIMVASTATIN 40 MG TABS Take one by mouth daily SIMVASTATIN 80167683047 Active Gareth Cancino MD Active TRIAMTERENE-HCTZ 37.5-25 MG CAPS Take one by mouth daily TRIAMTERENE- HCTZ 37837756822 Active Gareth Cancino MD Active CHANTIX STARTING [...] 3 days 2011 PREDNISONE 20 MG TAB 976236 PREDNISONE Inactive DOXYCYCLINE HYCLATE 100 MG CAP 1 cap by mouth twice daily DOXYCYCLINE HYCLATE 100 MG CAP 4090328 DOXYCYCLINE HYCLATE Inactive B-12 1000 MCG CAPS Take one by mouth daily B-12 1000 MCG CAPS CYANOCOBALAMIN Inactive VITAMIN B-6 250 MG TABS Take one by mouth daily VITAMIN B-6 250 MG TABS PYRIDOXINE HCL Inactive FOLIC ACID 800 MCG TABS Take one by mouth daily FOLIC ACID 800 MCG TABS 760498 FOLIC ACID Inactive CIPRO 500 MG TABS 1 TAB PO BID CIPRO 500 MG TABS 437297 CIPROFLOXACIN HCL Inactive OMEPRAZOLE 20 MG TBEC Take one by mouth daily OMEPRAZOLE 20 MG TBEC 696169 OMEPRAZOLE Inactive METOPROLOL SUCCINATE 50 MG TB24 1 tablet by mouth daily METOPROLOL SUCCINATE 50 MG TB24 METOPROLOL SUCCINATE Inactive BACTROBAN 2 % CREAM Apply to affected area BID BACTROBAN 2 % CREAM 498835 MUPIROCIN CALCIUM Inactive CLOBETASOL PROPIONATE 0.05 % CREA apply to hand rash bid CLOBETASOL PROPIONATE 0.05 % CREA 110513 CLOBETASOL PROPIONATE Inactive ALPRAZOLAM 0.25 MG TAB 1/2 to 1 tablet by mouth qhs prn ALPRAZOLAM 0.25 MG TAB 173312 ALPRAZOLAM Inactive PREDNISONE 20 MG TAB 1 tab po BID for 3 days, then 1 tab po qday for 3 days PREDNISONE 20 MG TAB 513379 PREDNISONE Inactive BACTRIM DS 800-160 MG TAB 1 tab by mouth twice daily BACTRIM DS 800-160 MG TAB 800384 TRIMETHOPRIM-SULFAMETHOXAZOLE Inactive LEVAQUIN 500 MG TAB 1 tablet by mouth daily LEVAQUIN 500 MG TAB 290159 LEVOFLOXACIN Inactive KEFLEX 500 MG CAP 1 po TID x 10 days KEFLEX 500 MG CAP 463225 CEPHALEXIN Inactive BACTRIM DS 800-160 MG TAB 1 tab by mouth twice daily BACTRIM DS 800-160 MG TAB 019386 TRIMETHOPRIM-SULFAMETHOXAZOLE Inactive Vital Signs Date Name Value Unit Range Description blood pressure, diastolic - 8462-4 67 mm[Hg] BP mcmahon blood pressure, systolic - 8480-6 159 mm[Hg] BP sys pulse rate E&M - 8867-4 70 /min Heart rate temperature E&M 98.4 [degF] Body temperature weight E&M - 3141-9 157 [lb_av] Weight Measured blood pressure, diastolic - 8462-4 79 mm[Hg] [...] E&M - 3141-9 158 [lb_av] Weight Measured Diagnostic Results Date Name Value Unit Range Description Lab Report: Lipid Panel, Comp. Metabolic Panel, CBC W/DIFF, MICROALB/CRE ... - Chemistry cholesterol, serum 195 mg/dL 315-076 8008/12/02 triglyceride, serum, fasting 74 mg/dL 30-200 HDL cholesterol, serum 52 mg/dL 32-96 LDL cholesterol, serum 128 mg/dL 0-130 sodium, serum 134 mmol/L 078-889 7523/12/02 carbon dioxide, venous blood 30.3 mmol/L 21.0-32.0 [...] 0-19 Encounters Code Encounter Date Provider Facility CPT-80497 Level 3 Est. Patient 23:08:20 CDT Gareth Cancino MD [facility] CPT-34776 Level 4 Est. Patient 20:40:10 CDT Gareth Cancino MD [facility] CPT-36606 Level 4 Est. Patient 19:50:11 CDT Gareth Cancino MD [facility] CPT-37336 Level 3 Est. Patient 11:00:13 CDT Gareth Cancino MD [facility] CPT-42755 Level 4 Est. Patient 11:20:21 CDT Gareth Cancino MD [facility] CPT-98300 Level 4 Est. 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 Patient 09:48:04 CDT Gareth Cancino MD [facility] CPT-73733 Level 3 Est. Patient 10:13:16 CDT Gareth Cancino MD [facility] CPT-58474 Level 2 Est. Patient 18:36:56 CDT Gareth Cancino MD [facility] CPT-98468 Level 4 Est. Patient 13:50:53 CDT Gareth Cancino MD [facility] CPT-34736 Level 3 Est. 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 Patient 09:25:57 CDT Gareth Cancino MD [facility] CPT-45754 Level 3 Est. Patient 20:39:33 CDT Noman Edwards DO [facility] CPT-68178 Level 2 Est. Patient 13:17:39 CDT Gareth Cancino MD [facility] CPT-59577 Level 3 Est. Patient 13:37:20 CDT Gareth Cancino MD [facility] CPT-64501 Level 3 Est. Patient 18:09:08 CDT Gareth Cancino MD [facility] CPT-71835 Level 4 Est. 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
--- OUTSIDE RECORDS SUMMARY | 2016-12-06 07:56 | XMS REPORT | Clinical Summary ---
Author Author Admin, HILARIA Organization [facility] Address Unknown Phone Unavailable Allergies, Adverse Reactions, [...] Contact dermatitis and other eczema, unspecified cause Bronchitis-Acute ICD-466.0 Inactive Gareth Cancino MD Medication List Medication Instructions Start Date Stop Date Generic Name NDC Status Provider Patient Instruction CLOBETASOL PROPIONATE 0.05 % CREA apply to hand rash bid CLOBETASOL PROPIONATE 87115209081 Active Gareth Cancino MD Active WELLBUTRIN SR 150 MG ORAL [id number] take 1 tab po BID BUPROPION HCL 27565451150 Active Gareth Cancino MD Active METOPROLOL SUCCINATE 50 MG TB24 1 tablet by mouth daily METOPROLOL SUCCINATE 94622146622 No Longer Active Gareth Cancino MD Active METOPROLOL SUCCINATE ER 100 MG [id number] 1 pill by mouth daily, for blood pressure METOPROLOL SUCCINATE 81715830338 Active Gareth Cancino MD Active OMEPRAZOLE 20 MG TBEC Take one by mouth daily OMEPRAZOLE 73440888830 No Longer Active Gareth Cancino MD Active OMEPRAZOLE 40 MG CPDR 1 tab po qday for acid reflux. OMEPRAZOLE 42169387210 Active Gareth Cancino MD Active LEVAQUIN 500 MG TAB 1 tablet by mouth daily LEVOFLOXACIN 45911899882 No Longer Active Gareth Cancino MD Active ALEVE 220 MG TAB 2 tab po qd NAPROXEN SODIUM 77385844326 Active Gareth Cancino MD Active ASPIRIN 81 MG CHEW TAB 1 tablet by mouth daily ASPIRIN 22883728488 Active Gareth Cancino MD Active VENTOLIN HFA 108 (90 BASE) MCG/ACT AERS 1-2 puffs four times a day PRN shortness of breath ALBUTEROL SULFATE 50569807192 Active Fuad Franks MD Active CENTRUM SILVER TABS 1 TAB PO DAILY MULTIPLE VITAMINS-MINERALS 03163489556 Active Gareth Cancino MD Active VITAMIN B12 100 MCG TABS 1 TAB PO DAILY CYANOCOBALAMIN 88504724506 Active Gareth Cancino MD Active CIPRO 500 MG TABS 1 TAB PO BID CIPROFLOXACIN HCL 29172935617 No Longer Active Gareth Cancino MD Active BACTRIM DS 800-160 MG TAB 1 tab by mouth twice daily TRIMETHOPRIM-SULFAMETHOXAZOLE 65828418956 No Longer Active Gareth Cancino MD Active PREDNISONE 20 MG TAB 1 tab po BID for 3 days, then 1 tab po qday for 3 days PREDNISONE 28473326870 No Longer Active Gareth Cancino MD Active FOLIC ACID 800 MCG TABS Take one by mouth daily FOLIC ACID 92006101313 No Longer Active Gareth Cancino MD Active VITAMIN B-6 250 MG TABS Take one by mouth daily PYRIDOXINE HCL 28367897056 No Longer Active Gareth Cancino MD Active B-12 1000 MCG CAPS Take one by mouth daily CYANOCOBALAMIN 85440207895 No Longer Active Gareth Cancino MD Active DOXYCYCLINE HYCLATE 100 MG CAP 1 cap by mouth twice daily DOXYCYCLINE HYCLATE 00789017620 No Longer Active Gareth Cancino MD Active PREDNISONE 20 MG TAB 1 po bid 3 days, then 1 po q day 3 days 2011 PREDNISONE 65510088516 No Longer Active Gareth Cancino MD Active CHANTIX STARTING MONTH RUBEN 0.5 MG X 11 & 1 MG X 42 TABS 0.5mg daily for 3 days , then 0.5mg BID for 4 days, then 1mg BID VARENICLINE TARTRATE 88818106185 No Longer Active Gareth Cancino MD Active ALPRAZOLAM 0.25 MG TAB 1/2 to 1 tablet by mouth qhs prn ALPRAZOLAM 72216919493 Active Gareth Cancino MD Active SIMVASTATIN 40 MG TABS Take one by mouth daily SIMVASTATIN 14214047569 Active Gareth Cancino MD Active TRIAMTERENE-HCTZ 37.5-25 MG CAPS Take one by mouth daily TRIAMTERENE- HCTZ 26066053257 Active Gareth Cancino MD Active CHANTIX STARTING [...] 3 days 2011 PREDNISONE 20 MG TAB 719053 PREDNISONE Inactive DOXYCYCLINE HYCLATE 100 MG CAP 1 cap by mouth twice daily DOXYCYCLINE HYCLATE 100 MG CAP 9560813 DOXYCYCLINE HYCLATE Inactive B-12 1000 MCG CAPS Take one by mouth daily B-12 1000 MCG CAPS CYANOCOBALAMIN Inactive VITAMIN B-6 250 MG TABS Take one by mouth daily VITAMIN B-6 250 MG TABS PYRIDOXINE HCL Inactive FOLIC ACID 800 MCG TABS Take one by mouth daily FOLIC ACID 800 MCG TABS 768434 FOLIC ACID Inactive CIPRO 500 MG TABS 1 TAB PO BID CIPRO 500 MG TABS 564754 CIPROFLOXACIN HCL Inactive OMEPRAZOLE 20 MG TBEC Take one by mouth daily OMEPRAZOLE 20 MG TBEC 137582 OMEPRAZOLE Inactive METOPROLOL SUCCINATE 50 MG TB24 1 tablet by mouth daily METOPROLOL SUCCINATE 50 MG TB24 METOPROLOL SUCCINATE Inactive PREDNISONE 20 MG TAB 1 tab po BID for 3 days, then 1 tab po qday for 3 days PREDNISONE 20 MG TAB 607046 PREDNISONE Inactive BACTRIM DS 800-160 MG TAB 1 tab by mouth twice daily BACTRIM DS 800-160 MG TAB TRIMETHOPRIM-SULFAMETHOXAZOLE Inactive LEVAQUIN 500 MG TAB 1 tablet by mouth daily LEVAQUIN 500 MG TAB 534706 LEVOFLOXACIN Inactive Vital Signs Date Name Value Unit Range Description blood pressure, diastolic - 8462-4 83 mm[Hg] BP mcmahon blood pressure, systolic - 8480-6 144 mm[Hg] BP sys pulse rate E&M - 8867-4 79 /min Heart rate temperature E&M 98.4 [degF] Body temperature weight E&M - 3141-9 156 [lb_av] Weight Measured blood pressure, diastolic - 8462-4 80 mm[Hg] BP mcmahon blood pressure, systolic - 8480-6 153 mm[Hg] BP sys pulse rate E&M - 8867-4 87 /min Heart rate temperature E&M 98.5 [degF] Body temperature weight E&M - 3141-9 157 [lb_av] Weight Measured Diagnostic Results Date Name Value Unit Range Description Lab Report: CBC, Comp. Metabolic Panel, Lipid Panel, MICROALBUMIN - Chemistry sodium, serum 138 mmol/L 808-504 4350/09/10 potassium, serum 4.2 mmol/L 3.5-5.2 chloride, serum 100 mmol/L 98-107 carbon dioxide, venous blood 29.6 mmol/L 21.0-32.0 blood glucose 106 mg/dL 65-110 urea nitrogen, blood 10 mg/dL 7-18 creatinine, serum 0.70 mg/dL 0.60-1.30 alanine aminotransferase (SGPT), serum 19 U/L 12-78 aspartate aminotransferase (SGOT), serum 19 U/L 15-37 alkaline phosphatase, serum 75 U/L 50-136 calcium, serum 9.0 mg/dL 8.5-10.1 bilirubin, serum, total 0.20 mg/dL 0.00-1.00 cholesterol, serum 153 mg/dL 775-759 2703/09/10 triglyceride, serum, fasting 69 mg/dL 30-200 HDL cholesterol, serum 34 mg/dL 32-96 LDL cholesterol, serum 105 mg/dL 0-130 albumin/creatinine ratio, urine < 30 mg/g mg/g{creat} 0-29 Lab Report: CBC, Comp. Metabolic Panel, Lipid Panel, MICROALBUMIN - Hematology mean corpuscular hemoglobin, RBC 33.6 pg 27.0-31.2 mean corpuscular hemoglobin concentration, RBC 34.9 G/DL % 31.8- 35.4 red blood cell distribution width 13.6 % 11.6-14.8 platelet count 296 10^3/MM^3 10*3/mm3 357-939 5760/09/10 mean corpuscular volume, RBC 96 fL 80-97 hematocrit, blood 42.7 % 36.0-46.0 hemoglobin, blood 14.9 g/dL 12.0-16.0 erythrocyte (RBC) count 4.44 10^6/MM^3 10*6/mm3 4.04-5.48 leukocyte count, blood 5.2 10^3/MM^3 10*3/mm3 4.6-10.2 Lab Report: CBC, Comp. Metabolic Panel, Lipid Panel, MICROALBUMIN - Lab microalbumin, urine 30 0-19 Lab Report: UADIP W/MICRO, AUTO - Chemistry RBC, urine, dipstick Negative Negative protein, total urine random Negative mg/dL Negative RBC, urine, dipstick Negative Negative protein, total urine random Negative mg/dL Negative Lab Report: UADIP W/MICRO, AUTO - Urinalysis glucose, urine, semiquantitative Negative Negative ketones, urine, by test strip Trace Negative urobilinogen, urine, semiquantitative (dipstick) 0.2 Normal leukocyte esterase, urine, by dipstick Negative Negative nitrite, urine, semiquantitative Negative Negative glucose, urine, semiquantitative Negative Negative ketones, urine, by test strip Negative Negative bilirubin, urine Negative Negative urobilinogen, urine, semiquantitative (dipstick) 0.2 Normal leukocyte esterase, urine, by dipstick Negative Negative nitrite, urine, semiquantitative Negative Negative urine color Yellow Colorless;Lightyellow;Straw;Yellow appearance, urine Clear Clear specific gravity, urine 1.010 1.000-1.030 pH, urine, semiquantitative 7.5 5.0-8.5 bilirubin, urine 1+ Negative urine color Yellow Colorless;Lightyellow;Straw;Yellow appearance, urine Clear Clear specific gravity, urine 1.020 1.000-1.030 pH, urine, semiquantitative 6.5 5.0-8.5 Office Visit: NAUSEA, UPPER ABD. DISCOMFORT - Chemistry cholesterol, target level 200 mg/dL LDL target level 100 mg/dL HDL cholesterol, serum, target level 40 mg/dL triglyceride, target level 150 mg/dL Encounters Code Encounter Date Provider Facility CPT-16374 Level 4 Est. Patient 11:20:21 CDT Gareth Cancino MD [facility] CPT-55248 Level 4 Est. Patient 09:22:18 LAYER OFF Gareth Cancino MD [facility] CPT-82841 Level 3 Est. Patient 09:48:04 CDT Gareth Cancino MD [facility] CPT-58659 Level 3 Est. Patient 10:13:16 CDT Gareth Cancino MD [facility] CPT-81148 Level 2 Est. Patient 18:36:56 CDT Gareth Cancino MD [facility] CPT-45450 Level 4 Est. Patient 13:50:53 CDT Gareth Cancino MD [facility] CPT-71778 Level 3 Est. Patient 14:58:33 LAYER OFF Gareth Cancino MD [facility] CPT-89581 Level 4 Est. Patient 09:25:57 CDT Gareth Cancino MD [facility] CPT-41569 Level 3 Est. Patient 20:39:33 CDT Noman Edwards DO [facility] CPT-10767 Level 2 Est. Patient 13:17:39 CDT Gareth Cancino MD [facility] CPT-42324 Level 3 Est. Patient 13:37:20 CDT Gareth Cancino MD [facility] CPT-75488 Level 3 Est. Patient 18:09:08 CDT Gareth Cancino MD [facility] CPT-47243 Level 4 Est. Patient 09:59:07 CDT Gareth Cancino MD [facility] Procedures Code Procedure Name Date Entry Date Standard Description CPT-G0008 Administration of Influenza Virus Vaccine 10:04:48 LAYER OFF CPT-65550 Fluzone High-Dose Intramuscular Suspension 10:04:48 LAYER OFF CPT-40548 Ribs unilat w PA chst min 3V 10:45:40 CDT CPT-LR Lesion Removal 13:14:55 CDT CPT-Cryo Cryotherapy 13:14:55 CDT CPT-89243 Venipuncture Draw Fee 10:25:49 CDT CPT-45674 Administration single or combination vaccine inc oral 13 :22:14 LAYER OFF CPT-16906 Influenza High Dose age 65+ 13:22:14 LAYER OFF
--- OUTSIDE RECORDS SUMMARY | 2016-12-06 07:56 | XMS REPORT | Clinical Summary ---
Author Author Admin, HILARIA Organization [employer] Address Unknown Phone Unavailable Allergies, Adverse Reactions, [...] MD Insomnia, unspecified HYPERLIPIDEMIA, OTHER UNSPECIFIED 272.4 Resolved Gareth Cancino MD Other and unspecified hyperlipidemia PREVENTIVE HEALTH CARE V70.0 Active Gareth Cancino MD Routine general medical examination at a health care facility SKIN LESION 709.9 Resolved Gareth Cancino MD Unspecified disorder of skin and subcutaneous tissue CAULIFLOWER EAR 738.7 Resolved Gareth Cancino MD Cauliflower ear DYSPLASTIC NEVUS, CHEST 216.5 Resolved Gareth Cancino MD Benign neoplasm of skin of trunk, except scrotum DYSPLASTIC NEVUS, FACE 216.3 Resolved Gareth Cancino MD Benign neoplasm of skin of other and unspecified parts of face SEBACEOUS CYST 706.2 Resolved Gareth Cancino MD Sebaceous cyst ENCOUNTER FOR REMOVAL OF SUTURES V58.32 Resolved Gareth Cancino MD Encounter for removal of sutures BRONCHITIS, ACUTE WITH MILD BRONCHOSPASM 466.0 Resolved Gareth Cancino MD Acute bronchitis URINARY FREQUENCY 788.41 Resolved Gareth Cancino MD Urinary frequency URINARY HESITANCY 788.64 Resolved Gareth aCncino MD Urinary hesitancy TOBACCO ABUSE 305.1 Active Gareth Cancino MD Tobacco use disorder SEBORRHEIC KERATOSIS 702.19 Resolved Gareth Cancino MD Other seborrheic keratosis COPD 496 Active Gareth Cancino MD Chronic airway obstruction, not elsewhere classified ACTINIC KERATOSIS, CHEEK, LEFT 702.0 Resolved Gareth Cancino MD Actinic keratosis Rib pain, left sided 786.50 Resolved Gareth Cancino MD Unspecified chest pain Bronchitis-Acute 466.0 Inactive Gareth Cancino MD Acute bronchitis GERD 530.81 Active Gareth Cancino MD Esophageal reflux Dysuria 788.1 Resolved Gareth Cancino MD Dysuria Contact dermatitis 692.9 Resolved Gareth Cancino MD Contact dermatitis and other eczema, unspecified cause Skin lesion 709.9 Resolved Gareth Cancino MD Unspecified disorder of skin and subcutaneous tissue Folliculitis 704.8 Resolved Gareth Cancino MD Other specified diseases of hair and hair follicles Low back pain, chronic 724.2 Active Gareth Cancino MD Lumbago Frequency of urination 788.41 Resolved Gareth Cancino MD Urinary frequency Actinic keratosis 702.0 Resolved Gareth Cancino MD Actinic keratosis Pneumonia 486 Active Gareth Cancino MD Pneumonia, organism unspecified Hypokalemia 276.8 Resolved Gareth Cancino MD Hypopotassemia Spinal stenosis 724.00 Active Gareth Cancino MD Spinal stenosis of unspecified region Dizziness 780.4 Active Gareth Cancino MD Dizziness and giddiness Dysuria 788.1 Active Gareth Cancino MD Dysuria Preventive health care V70.0 Active Gareth Cancino MD Routine general medical examination at a health care facility Hyperlipidemia 272.4 Active Gareth Cancino MD Other and unspecified hyperlipidemia COPD, acute exacerbation 491.21 Active Mary Shah APRN Obstructive chronic bronchitis with (acute) exacerbation HYPERLIPIDEMIA, OTHER UNSPECIFIED ICD-272.4 Inactive Gareth Cancino MD SKIN LESION ICD-709.9 Inactive Gareth Cancino MD CAULIFLOWER EAR ICD-738.7 Inactive Gareth Cancino MD DYSPLASTIC NEVUS, CHEST ICD-216.5 Inactive Gareth Cancino MD DYSPLASTIC NEVUS, FACE ICD-216.3 Inactive Gareth Cancino MD SEBACEOUS CYST ICD-706.2 Inactive Gareth Cancino MD ENCOUNTER FOR REMOVAL OF SUTURES ICD-V58.32 Inactive Gareth Cancino MD BRONCHITIS, ACUTE WITH MILD BRONCHOSPASM ICD-466.0 Inactive Gareth Cancino MD URINARY FREQUENCY ICD-788.41 Inactive Garteh Cancino MD URINARY HESITANCY ICD-788.64 Inactive Gareth Cancino MD SEBORRHEIC KERATOSIS ICD-702.19 Inactive Gareth Cancino MD ACTINIC KERATOSIS, CHEEK, LEFT ICD-702.0 Inactive Gareth Cancino MD Rib pain, left sided ICD-786.50 Inactive Gareth Cancino MD Bronchitis-Acute ICD-466.0 Inactive Gareth Cancino MD Dysuria ICD-788.1 Inactive Gareth Cancino MD 2015 Contact dermatitis ICD-692.9 Inactive Gareth Cancino MD Skin lesion ICD-709.9 Inactive Gareth Cancino MD Folliculitis ICD-704.8 Inactive Gareth Cancino MD Frequency of urination ICD-788.41 Inactive Gareth Cancino MD Actinic keratosis ICD-702.0 Inactive Gareth Cancino MD Hypokalemia ICD-276.8 Inactive Gareth Cancino MD Medication List Medication Instructions Start Date Stop Date Generic Name NDC Status Provider Patient Instruction FENTANYL 25 MCG/HR TRANS PT72 1 patch every 72 hours FENTANYL [id number] Active Mary Shah APRN Active PREDNISONE 20 MG TAB take 3 tabs daily for 3 days, 2 tabs daily for 3 days, 1 tab daily for 3 days, 1/2 tab daily for 4 days PREDNISONE 08002524417 No Longer Active Mary Shah APRN Active LEVAQUIN 500 MG TAB 1 tablet by mouth daily for 7 days LEVOFLOXACIN 70648128301 Active Marylennox Shah APRN Active AZITHROMYCIN 250 MG TABS 2 po qd x 1 day, then 1 po qd x 4 days AZITHROMYCIN 72690118434 No Longer Active Danuta Modi Active AZITHROMYCIN 250 MG TABS 2 po qd x 1 day, then 1 po qd x 4 days AZITHROMYCIN 18889794503 No Longer Active Tangela Rameseret Active HYDROCODONE-ACETAMINOPHEN 5-325 MG TABS 1 tab by mouth every 6 hours as needed for bck pain HYDROCODONE-ACETAMINOPHEN 02311800057 No Longer Active Gareth Cancino MD Active ALPRAZOLAM 0.25 MG TAB 1 tablet by mouth q hs prn ALPRAZOLAM 51392667474 Active Gareth Cancino MD Active AZITHROMYCIN 250 MG ORAL TABS 1 tab daily AZITHROMYCIN 79770988376 No Longer Active Gareth Cancino MD Active ZITHROMAX 250 MG TAB 2 po today, then 1 po q days 2-5 AZITHROMYCIN 18839283913 No Longer Active Tangelashar Forte Active IPRATROPIUM-ALBUTEROL 0.5-2.5 (3) MG/3ML INH SOLN nebulize 1 vial every 6hrs prn shortness of breath IPRATROPIUM-ALBUTEROL 73791771161 Active Gareth Cancino MD Active FENTANYL 25 MCG/HR PT72 Apply to clean, dry skin and change every 72 hours FENTANYL 40399996642 No Longer Active Gareth Cancino MD Active WELLBUTRIN SR 150 MG ORAL [id number] take 1 tab po BID BUPROPION HCL 43755530288 No Longer Active Gareth Cancino MD Active ZOFRAN 4 MG ORAL TABS 1 by mouth every 6 hours prn nausea ONDANSETRON HCL 34914950422 Active Tangela Forte Active TRAMADOL HCL 50 MG TABS 1 po tid PRN TRAMADOL HCL 47985633024 Active Gareth Cancino MD Active ALPRAZOLAM 0.25 MG TAB 1/2 to 1 tablet by mouth qhs prn ALPRAZOLAM 49301932659 No Longer Active Gareth Cancino MD Active CLOBETASOL PROPIONATE 0.05 % CREA apply to hand rash bid CLOBETASOL PROPIONATE 51318179496 No Longer Active Gareth Cancino MD Active BACTROBAN 2 % CREAM Apply to affected area BID MUPIROCIN CALCIUM 10613960343 No Longer Active Gareth Cancino MD Active LISINOPRIL 20 MG TABS 1 tablet by mouth daily for high blood pressure 10/14 LISINOPRIL 58508846632 Active Mary Shah APRN Active BACTRIM DS 800-160 MG TAB 1 tab by mouth twice daily TRIMETHOPRIM-SULFAMETHOXAZOLE 20095996958 No Longer Active Gareth Cancino MD Active METOPROLOL SUCCINATE ER 100 MG [id number] 1 pill by mouth daily, for blood pressure METOPROLOL SUCCINATE 83505230081 Active Mary Shah APRN Active KEFLEX 500 MG CAP 1 po TID x 10 days CEPHALEXIN 23057221143 No Longer Active Blanca Castillo APRN Active METOPROLOL SUCCINATE 50 MG TB24 1 tablet by mouth daily METOPROLOL SUCCINATE 36346007579 No Longer Active Gareth Cancino MD Active OMEPRAZOLE 20 MG TBEC Take one by mouth daily OMEPRAZOLE 27956919817 No Longer Active Gareth Cancino MD Active OMEPRAZOLE 40 MG CPDR 1 tab po qday for acid reflux. 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 CENTRUM SILVER TABS 1 TAB PO DAILY MULTIPLE VITAMINS-MINERALS 45197093586 Active Gareth Cancino MD Active VITAMIN B12 100 MCG TABS 1 TAB PO DAILY CYANOCOBALAMIN 46773677742 Active Gareth Cancino MD Active CIPRO 500 MG TABS 1 TAB PO BID CIPROFLOXACIN HCL 37370197579 No Longer Active Gareth Cancino MD Active BACTRIM DS 800-160 MG TAB 1 tab by mouth twice daily TRIMETHOPRIM-SULFAMETHOXAZOLE 98338050458 No Longer Active Gareth Cancino MD Active PREDNISONE 20 MG TAB 1 tab po BID for 3 days, then 1 tab po qday for 3 days PREDNISONE 06603960160 No Longer Active Gareth Cancino MD Active FOLIC ACID 800 MCG TABS Take one by mouth daily FOLIC ACID 85406908288 No Longer Active Gareth Cancino MD Active VITAMIN B-6 250 MG TABS Take one by mouth daily PYRIDOXINE HCL 57379769004 No Longer Active Gareth Cancino MD Active B-12 1000 MCG CAPS Take one by mouth daily CYANOCOBALAMIN 48916414635 No Longer Active Gareth Cancino MD Active DOXYCYCLINE HYCLATE 100 MG CAP 1 cap by mouth twice daily DOXYCYCLINE HYCLATE 72044124516 No Longer Active Gareth Cancino MD Active PREDNISONE 20 MG TAB 1 po bid 3 days, then 1 po q day 3 days 2011 PREDNISONE 53887624407 No Longer Active Gareth Cancino MD Active CHANTIX STARTING MONTH RUBEN 0.5 MG X 11 & 1 MG X 42 TABS 0.5mg daily for 3 days , then 0.5mg BID for 4 days, then 1mg BID VARENICLINE TARTRATE 38846803257 No Longer Active Gareth Cancino MD Active SIMVASTATIN 40 MG TABS Take one by mouth daily SIMVASTATIN 03282013756 Active Gareth Cancino MD Active TRIAMTERENE-HCTZ 37.5-25 MG CAPS Take one by mouth daily TRIAMTERENE- HCTZ 73896472387 Active Gareth Cancino MD Active CHANTIX STARTING [...] 3 days 2011 PREDNISONE 20 MG TAB 789298 PREDNISONE Inactive DOXYCYCLINE HYCLATE 100 MG CAP 1 cap by mouth twice daily DOXYCYCLINE HYCLATE 100 MG CAP 1621747 DOXYCYCLINE HYCLATE Inactive B-12 1000 MCG CAPS Take one by mouth daily B-12 1000 MCG CAPS CYANOCOBALAMIN Inactive VITAMIN B-6 250 MG TABS Take one by mouth daily VITAMIN B-6 250 MG TABS PYRIDOXINE HCL Inactive FOLIC ACID 800 MCG TABS Take one by mouth daily FOLIC ACID 800 MCG TABS 851557 FOLIC ACID Inactive CIPRO 500 MG TABS 1 TAB PO BID CIPRO 500 MG TABS 664044 CIPROFLOXACIN HCL Inactive OMEPRAZOLE 20 MG TBEC Take one by mouth daily OMEPRAZOLE 20 MG TBEC 277728 OMEPRAZOLE Inactive METOPROLOL SUCCINATE 50 MG TB24 1 tablet by mouth daily METOPROLOL SUCCINATE 50 MG TB24 METOPROLOL SUCCINATE Inactive BACTROBAN 2 % CREAM Apply to affected area BID BACTROBAN 2 % CREAM 717188 MUPIROCIN CALCIUM Inactive CLOBETASOL PROPIONATE 0.05 % CREA apply to hand rash bid CLOBETASOL PROPIONATE 0.05 % CREA 884286 CLOBETASOL PROPIONATE Inactive ALPRAZOLAM 0.25 MG TAB 1/2 to 1 tablet by mouth qhs prn ALPRAZOLAM 0.25 MG TAB 446839 ALPRAZOLAM Inactive WELLBUTRIN SR 150 MG ORAL [id number] take 1 tab po BID WELLBUTRIN SR 150 MG ORAL [id number] BUPROPION HCL Inactive AZITHROMYCIN 250 MG ORAL TABS 1 tab daily AZITHROMYCIN 250 MG ORAL TABS 8417938 AZITHROMYCIN Inactive HYDROCODONE-ACETAMINOPHEN 5-325 MG TABS 1 tab by mouth every 6 hours as needed for bck pain HYDROCODONE-ACETAMINOPHEN 5-325 MG TABS 116310 HYDROCODONE-ACETAMINOPHEN Inactive PREDNISONE 20 MG TAB 1 tab po BID for 3 days, then 1 tab po qday for 3 days PREDNISONE 20 MG TAB 259095 PREDNISONE Inactive BACTRIM DS 800-160 MG TAB 1 tab by mouth twice daily BACTRIM DS 800-160 MG TAB 584468 TRIMETHOPRIM-SULFAMETHOXAZOLE Inactive LEVAQUIN 500 MG TAB 1 tablet by mouth daily LEVAQUIN 500 MG TAB 426876 LEVOFLOXACIN Inactive KEFLEX 500 MG CAP 1 po TID x 10 days KEFLEX 500 MG CAP 191753 CEPHALEXIN Inactive BACTRIM DS 800-160 MG TAB 1 tab by mouth twice daily BACTRIM DS 800-160 MG TAB 19820425 TRIMETHOPRIM-SULFAMETHOXAZOLE Inactive FENTANYL 25 MCG/HR PT72 Apply to clean, dry skin and change every 72 hours FENTANYL 25 MCG/HR PT72 952276 FENTANYL Inactive ZITHROMAX 250 MG TAB 2 po today, then 1 po q days 2-5 ZITHROMAX 250 MG TAB 1749115 AZITHROMYCIN Inactive AZITHROMYCIN 250 MG TABS 2 po qd x 1 day, then 1 po qd x 4 days AZITHROMYCIN 250 MG TABS 7200112 AZITHROMYCIN Inactive AZITHROMYCIN 250 MG TABS 2 po qd x 1 day, then 1 po qd x 4 days AZITHROMYCIN 250 MG TABS 9171196 AZITHROMYCIN Inactive PREDNISONE 20 MG TAB take 3 tabs daily for 3 days, 2 tabs daily for 3 days, 1 tab daily for 3 days, 1/2 tab daily for 4 days PREDNISONE 20 MG TAB 915706 PREDNISONE Inactive Vital Signs Date Name Value Unit Range Description blood pressure, diastolic - 8462-4 81 mm[Hg] BP mcmahon blood pressure, systolic - 8480-6 148 mm[Hg] BP sys pulse rate E&M - 8867-4 81 /min Heart rate temperature E&M 98.6 [degF] Body temperature weight E&M - 3141-9 147 [lb_av] Weight Measured blood pressure, diastolic - 8462-4 79 mm[Hg] BP mcmahon blood pressure, systolic - 8480-6 146 mm[Hg] BP sys pulse rate E&M - 8867-4 74 /min Heart rate temperature E&M 98.8 [degF] Body temperature weight E&M - 3141-9 152 [lb_av] Weight Measured blood pressure, diastolic - 8462-4 68 mm[Hg] BP mcmahon blood pressure, systolic - 8480-6 136 mm[Hg] BP sys pulse rate E&M - 8867-4 73 /min Heart rate temperature E&M 98.1 [degF] Body temperature weight E&M - 3141-9 152.5 [lb_av] Weight Measured blood pressure, diastolic - 8462-4 69 mm[Hg] BP mcmahon blood pressure, systolic - 8480-6 155 mm[Hg] BP sys pulse rate E&M - 8867-4 68 /min Heart rate temperature E&M 95.1 [degF] Body temperature weight E&M - 3141-9 154.70 [lb_av] Weight Measured blood pressure, diastolic - [...] Panel - Chemistry sodium, serum 133 mmol/L 068-513 8758/08/24 potassium, serum 4.4 mmol/L 3.5-5.2 chloride, serum 95 mmol/L 98-107 carbon dioxide, venous blood 33.0 mmol/L 21.0-32.0 blood glucose 107 mg/dL 65-110 calcium, serum 8.8 mg/dL 8.5-10.1 urea nitrogen, blood 12 mg/dL 7-18 creatinine, serum 0.69 mg/dL 0.55-1.30 Lab Report: CBC, Basic Metabolic Panel - Chemistry sodium, serum 132 mmol/L 727-026 1289/10/12 potassium, serum 4.7 mmol/L 3.5-5.2 chloride, serum [...] count 305 10^3/MM^3 10*3/mm3 142-424 Lab Report: Comp. Metabolic Panel, CBC - Chemistry sodium, serum 136 mmol/L 585-654 1217/11/01 carbon dioxide, venous blood 32.1 mmol/L 21.0-32.0 potassium, serum 4.9 mmol/L 3.5-5.2 chloride, serum 98 mmol/L 98-107 blood glucose 104 mg/dL 65-110 urea nitrogen, blood 7 mg/dL 7-18 creatinine, serum 0.67 mg/dL 0.55-1.30 alanine aminotransferase (SGPT), serum 23 U/L 12-78 aspartate aminotransferase (SGOT), serum 17 U/L 15-37 calcium, serum 9.3 mg/dL 8.5-10.1 bilirubin, serum, total 0.40 mg/dL 0.00-1.00 Lab Report: Comp. Metabolic Panel, CBC - Hematology leukocyte count, blood 5.6 10^3/MM^3 10*3/mm3 4.6-10.2 erythrocyte (RBC) count 4.63 10^6/MM^3 10*6/mm3 4.04-5.48 hemoglobin, blood 14.9 g/dL 12.0-16.0 hematocrit, blood 43.6 % 36.0-46.0 mean corpuscular volume, RBC 94 fL 80-97 mean corpuscular hemoglobin, RBC 32.2 pg 27.0-31.2 mean corpuscular hemoglobin concentration, RBC 34.2 G/DL % 31.8- 35.4 red blood cell distribution width 13.4 % 11.6-14.8 platelet count 262 10^3/MM^3 10*3/mm3 142-424 Lab Report: Free Thyroxine (L), Thyroid Stimulating Hormone (L) - Chemistry thyroxine, serum, free 1.11 ng/dL 0.76-1.46 TSH 2.59 m[iU]/mL 0.36-3.74 Lab Report: UADIP W/MICRO, AUTO - Chemistry [...] 1.015 1.000-1.030 pH, urine, semiquantitative 7.5 5.0-8.5 urine color Yellow Colorless;Lightyellow;Straw;Yellow appearance, urine Clear Clear specific gravity, urine 1.010 1.000-1.030 pH, urine, semiquantitative 7.5 5.0-8.5 urobilinogen, urine, semiquantitative (dipstick) 0.2 Normal leukocyte esterase, urine, by dipstick Negative Negative nitrite, urine, semiquantitative Negative Negative Encounters Code Encounter Date Provider Facility CPT-77378 Level 3 Est. Patient 09:05:25 [employer] Mary Shah APRN [facility] CPT-21056 Level 3 Est. Patient 20:53:25 [employer] Gareth Cancino MD [facility] CPT-38100 Level 3 Est. Patient 10:34:55 CDT Gareth Cancino MD [facility] CPT-81419 Level 4 Est. Patient 09:00:18 CDT Gareth Cancino MD [facility] CPT-74741 Level 3 Est. Patient 15:12:03 CDT Gareth Cancino MD [facility] CPT-94849 Level 3 Est. Patient 23:08:20 CDT Gareth Cancino MD [facility] CPT-52925 Level 4 Est. Patient 20:40:10 CDT Gareth Cancino MD [facility] CPT-80739 Level 4 Est. Patient 19:50:11 CDT Gareth Cancino MD [facility] CPT-05329 Level 3 Est. Patient 11:00:13 CDT Gareth Cancino MD [facility] CPT-65877 Level 4 Est. Patient 11:20:21 CDT Gareth Cancino MD [facility] CPT-82000 Level 4 Est. Patient 09:22:18 [employer] Gareth Cancino MD [facility] CPT-50301 Level 3 Est. Patient 09:48:04 CDT Gareth Cancino MD [facility] CPT-50440 Level 3 Est. Patient 10:13:16 CDT Gareth aCncino MD [facility] CPT-08135 Level 2 Est. Patient 18:36:56 CDT Gareth Cancino MD [facility] CPT-08574 Level 4 Est. Patient 13:50:53 CDT Gareth Cancino MD [facility] CPT-62058 Level 3 Est. Patient 14:58:33 [employer] Gareth Cancino MD [facility] CPT-23344 Level 4 Est. Patient 09:25:57 CDT Gareth Cancino MD [facility] CPT-68891 Level 3 Est. Patient 20:39:33 CDT Noman Edwards DO [facility] CPT-18997 Level 2 Est. Patient 13:17:39 CDT Gareth Cancino MD [facility]-11009 Level 3 Est. Patient 13:37:20 CDT Gareth Cancino MD [facility] CPT-08854 Level 3 Est. Patient 18:09:08 CDT Gareth Cancino MD [facility] CPT-63845 Level 4 Est. Patient 09:59:07 CDT Gareth Cancino MD [facility] Procedures Code Procedure Name Date Entry Date Standard Description CPT-000 Give Appropriate Flu Vaccine 09:29:52 [employer] CPT-000 Give Appropriate Flu Vaccine 09:22:20 [employer] CPT-71802 TSH - LAB USE ONLY 08:11:40 [employer] CPT-40894 Free T4 - LAB USE ONLY 08:11:40 [employer] CPT-07827 Venipuncture Draw Fee 08:11:40 [employer] CPT-02492 UA w micro - LAB USE ONLY 14:26:22 [employer] CPT-G0438 Initial Annual Wellness Exam 20:53:25 [employer] CPT-G0009 Administration of Pneumococcal Vaccine 11:42:53 [employer] CPT-02721 Prevnar 13 Intramuscular Suspension 11:42:53 [employer] 01/07 CPT-73041 First Vx - Ix admin for Medicare patients 11:39:44 [employer] CPT-15711 Fluzone High-Dose Intramuscular Suspension 11:39:44 [employer] CPT-89980 Prevnar 13 Intramuscular Suspension 09:29:52 [employer] 01/07 CPT-97086 CMP - LAB USE ONLY 16:31:15 CDT CPT-75115 CBC - LAB USE ONLY 16:31:14 CDT CPT-01971 Venipuncture Draw Fee 16:31:14 CDT CPT-48310 BMP - LAB USE ONLY 14:37:27 CDT CPT-14179 CBC - LAB USE ONLY 14:37:27 CDT CPT-25883 Venipuncture Draw Fee 14:37:27 CDT CPT-TCMM Transitional Care Mgmt-Moderate 14:43:38 CDT CPT-42763 Venipuncture Draw Fee 10:33:47 CDT CPT-18469 BMP - LAB USE ONLY 10:33:46 CDT CPT-Cryo Cryotherapy 15:12:03 CDT CPT-70601 LS spine AP and Lat - XRAY USE ONLY 10:31:51 CDT 07/27 CPT-76131 Punch biopsy 1 lsn 20:40:09 CDT CPT-G0008 Administration of Influenza Virus Vaccine 10:04:48 [employer] CPT-42238 Fluzone High-Dose Intramuscular Suspension 10:04:48 [employer] CPT-47791 Ribs unilat w PA chst min 3V 10:45:40 CDT CPT-LR Lesion Removal 13:14:55 CDT CPT-Cryo Cryotherapy 13:14:55 CDT CPT-21895 Venipuncture Draw Fee 10:25:49 CDT CPT-26574 Administration single or combination vaccine inc oral 13 :22:14 [employer] CPT-95414 Influenza High Dose age 65+ 13:22:14 [employer]
--- OUTSIDE RECORDS SUMMARY | 2016-12-06 07:57 | XMS REPORT | Clinical Summary ---
Author Author Admin, HILARIA Organization [employer] Address Unknown Phone Unavailable Allergies, Adverse Reactions, [...] FOR REMOVAL OF SUTURES V58.32 Resolved Gareth Cacnino MD Encounter for removal of sutures BRONCHITIS, ACUTE WITH MILD BRONCHOSPASM 466.0 Resolved Gareth Cancino MD Acute bronchitis URINARY FREQUENCY 788.41 Resolved Gareth Cancino MD Urinary frequency URINARY HESITANCY 788.64 Resolved Gareth Cancino MD Urinary hesitancy TOBACCO ABUSE [...] Gareth Cancino MD URINARY FREQUENCY ICD-788.41 Inactive Gareth Cancino MD URINARY HESITANCY ICD-788.64 Inactive Gareth [...] Generic Name NDC Status Provider Patient Instruction ZITHROMAX 1 GM ORAL PACK as directed AZITHROMYCIN [id number] Active Tangela Forte Active PIROXICAM 20 MG ORAL CAPS 1 po daily as needed for arthritis/pain PIROXICAM 43437330937 Active Gareth Cancino MD Active ZITHROMAX Z-RUBEN 250 MG TABS 2 today, then 1 daily for 4 days 2016 AZITHROMYCIN 54215959991 No Longer Active Tangelashar Forte Active FENTANYL 25 MCG/HR TRANS PT72 1 patch every 72 hours FENTANYL 04892268259 Active Mary Shah APRN Active PREDNISONE 20 MG TAB take 3 tabs daily for 3 days, 2 tabs daily for 3 days, 1 tab daily for 3 days, 1/2 tab daily for 4 days PREDNISONE 21049736504 No Longer Active Mary Shah APRN Active LEVAQUIN 500 MG TAB 1 tablet by mouth daily for 7 days LEVOFLOXACIN 04919434004 Active Mary Shah APRN Active AZITHROMYCIN 250 MG TABS 2 po qd x 1 day, then 1 po qd x 4 days AZITHROMYCIN 04593168650 No Longer Active Danuta Modi Active AZITHROMYCIN 250 MG TABS 2 po qd x 1 day, then 1 po qd x 4 days AZITHROMYCIN 79086052207 No Longer Active Tangela Forte Active HYDROCODONE-ACETAMINOPHEN 5-325 MG TABS 1 tab by mouth every 6 hours as needed for bck pain HYDROCODONE-ACETAMINOPHEN 61825799506 No Longer Active Gareth Cancino MD Active ALPRAZOLAM 0.25 MG TAB 1 tablet by mouth q hs prn ALPRAZOLAM 60631323703 Active Gareth Cancino MD Active AZITHROMYCIN 250 MG ORAL TABS 1 tab daily AZITHROMYCIN 21692978902 No Longer Active Gareth Cancino MD Active ZITHROMAX 250 MG TAB 2 po today, then 1 po q days 2-5 AZITHROMYCIN 64838167768 No Longer Active Tangela Forte Active IPRATROPIUM-ALBUTEROL 0.5-2.5 (3) MG/3ML INH SOLN nebulize 1 vial every 6hrs prn shortness of breath IPRATROPIUM-ALBUTEROL 95097188639 Active Gareth Cancino MD Active FENTANYL 25 MCG/HR PT72 Apply to clean, dry skin and change every 72 hours FENTANYL 43029194401 No Longer Active Gareth Cancino MD Active WELLBUTRIN SR 150 MG ORAL [id number] take 1 tab po BID BUPROPION HCL 82996972329 No Longer Active Gareth Cancino MD Active ZOFRAN 4 MG ORAL TABS 1 by mouth every 6 hours prn nausea ONDANSETRON HCL 98551903114 Active Tangela Forte Active TRAMADOL HCL 50 MG TABS 1 po tid PRN TRAMADOL HCL 10905586581 Active Gareth Cancino MD Active ALPRAZOLAM 0.25 MG TAB 1/2 to 1 tablet by mouth qhs prn ALPRAZOLAM 86283078234 No Longer Active Gareth Cancino MD Active CLOBETASOL PROPIONATE 0.05 % CREA apply to hand rash bid CLOBETASOL PROPIONATE 42061985640 No Longer Active Gareth Cancino MD Active BACTROBAN 2 % CREAM Apply to affected area BID MUPIROCIN CALCIUM 54897655062 No Longer Active Gareth Cancino MD Active LISINOPRIL 20 MG TABS 1 tablet by mouth daily for high blood pressure 10/14 LISINOPRIL 30040014091 Active Gareth Cancino MD Active BACTRIM DS 800-160 MG TAB 1 tab by mouth twice daily TRIMETHOPRIM-SULFAMETHOXAZOLE 77234746660 No Longer Active Gareth Cancino MD Active METOPROLOL SUCCINATE ER 100 MG [id number] 1 pill by mouth daily, for blood pressure METOPROLOL SUCCINATE 71587528644 Active Gareth Cancino MD Active KEFLEX 500 MG CAP 1 po TID x 10 days CEPHALEXIN 90201450069 No Longer Active Blanca Castillo APRN Active METOPROLOL SUCCINATE 50 MG TB24 1 tablet by mouth daily METOPROLOL SUCCINATE 80188634526 No Longer Active Gareth Cancino MD Active OMEPRAZOLE 20 MG TBEC Take one by mouth daily OMEPRAZOLE 92050608938 No Longer Active Gareth Cancino MD Active OMEPRAZOLE 40 MG CPDR 1 tab po qday for acid reflux. OMEPRAZOLE 73403343272 Active Mary Shah APRN Active LEVAQUIN 500 MG TAB 1 tablet by mouth daily LEVOFLOXACIN 42776149352 No Longer Active Gareth Cancino MD Active ALEVE 220 MG TAB 2 tab po qd NAPROXEN SODIUM 61125031405 Active Gareth Cancino MD Active ASPIRIN 81 MG CHEW TAB 1 tablet by mouth daily ASPIRIN 47337929153 Active Gareth Cancino MD Active VENTOLIN HFA 108 (90 BASE) MCG/ACT AERS 1-2 puffs four times a day PRN shortness of breath ALBUTEROL SULFATE 75940037623 Active Mary Shah APRN Active CENTRUM SILVER TABS 1 TAB PO DAILY MULTIPLE VITAMINS-MINERALS 65356187895 Active Gareth Cancino MD Active VITAMIN B12 100 MCG TABS 1 TAB PO DAILY CYANOCOBALAMIN 50252279112 Active Gareth Cancino MD Active CIPRO 500 MG TABS 1 TAB PO BID CIPROFLOXACIN HCL 36727150565 No Longer Active Gareth Cancino MD Active BACTRIM DS 800-160 MG TAB 1 tab by mouth twice daily TRIMETHOPRIM-SULFAMETHOXAZOLE 33750482551 No Longer Active Gareth Cancino MD Active PREDNISONE 20 MG TAB 1 tab po BID for 3 days, then 1 tab po qday for 3 days PREDNISONE 17523102780 No Longer Active Gareth Cancino MD Active FOLIC ACID 800 MCG TABS Take one by mouth daily FOLIC ACID 32798554125 No Longer Active Gareth Cancino MD Active VITAMIN B-6 250 MG TABS Take one by mouth daily PYRIDOXINE HCL 26883106611 No Longer Active Gareth Cancino MD Active B-12 1000 MCG CAPS Take one by mouth daily CYANOCOBALAMIN 92717553369 No Longer Active Gareth Cancino MD Active DOXYCYCLINE HYCLATE 100 MG CAP 1 cap by mouth twice daily DOXYCYCLINE HYCLATE 73485320361 No Longer Active Gareth Cancino MD Active PREDNISONE 20 MG TAB 1 po bid 3 days, then 1 po q day 3 days 2011 PREDNISONE 46287749505 No Longer Active Gareth Cancino MD Active CHANTIX STARTING MONTH RUBEN 0.5 MG X 11 & 1 MG X 42 TABS 0.5mg daily for 3 days , then 0.5mg BID for 4 days, then 1mg BID VARENICLINE TARTRATE 74201365583 No Longer Active Gareth Cancino MD Active SIMVASTATIN 40 MG TABS Take one by mouth daily SIMVASTATIN 23725386350 Active Gareth Cancino MD Active TRIAMTERENE-HCTZ 37.5-25 MG CAPS Take one by mouth daily TRIAMTERENE- HCTZ 20026795773 Active Mary Shah APRN Active CHANTIX STARTING MONTH RUBEN 0.5 MG [...] 3 days 2011 PREDNISONE 20 MG TAB 257750 PREDNISONE Inactive DOXYCYCLINE HYCLATE 100 MG CAP 1 cap by mouth twice daily DOXYCYCLINE HYCLATE 100 MG CAP 7522590 DOXYCYCLINE HYCLATE Inactive B-12 1000 MCG CAPS Take one by mouth daily B-12 1000 MCG CAPS CYANOCOBALAMIN Inactive VITAMIN B-6 250 MG TABS Take one by mouth daily VITAMIN B-6 250 MG TABS PYRIDOXINE HCL Inactive FOLIC ACID 800 MCG TABS Take one by mouth daily FOLIC ACID 800 MCG TABS 335195 FOLIC ACID Inactive CIPRO 500 MG TABS 1 TAB PO BID CIPRO 500 MG TABS 764945 CIPROFLOXACIN HCL Inactive OMEPRAZOLE 20 MG TBEC Take one by mouth daily OMEPRAZOLE 20 MG TBEC 459191 OMEPRAZOLE Inactive METOPROLOL SUCCINATE 50 MG TB24 1 tablet by mouth daily METOPROLOL SUCCINATE 50 MG TB24 METOPROLOL SUCCINATE Inactive BACTROBAN 2 % CREAM Apply to affected area BID BACTROBAN 2 % CREAM 370763 MUPIROCIN CALCIUM Inactive CLOBETASOL PROPIONATE 0.05 % CREA apply to hand rash bid CLOBETASOL PROPIONATE 0.05 % CREA 156185 CLOBETASOL PROPIONATE Inactive ALPRAZOLAM 0.25 MG TAB 1/2 to 1 tablet by mouth qhs prn ALPRAZOLAM 0.25 MG TAB 565408 ALPRAZOLAM Inactive WELLBUTRIN SR 150 MG ORAL [id number] take 1 tab po BID WELLBUTRIN SR 150 MG ORAL [id number] BUPROPION HCL Inactive AZITHROMYCIN 250 MG ORAL TABS 1 tab daily AZITHROMYCIN 250 MG ORAL TABS 0433248 AZITHROMYCIN Inactive HYDROCODONE-ACETAMINOPHEN 5-325 MG TABS 1 tab by mouth every 6 hours as needed for bck pain HYDROCODONE-ACETAMINOPHEN 5-325 MG TABS 925628 HYDROCODONE-ACETAMINOPHEN Inactive PREDNISONE 20 MG TAB 1 tab po BID for 3 days, then 1 tab po qday for 3 days PREDNISONE 20 MG TAB 001163 PREDNISONE Inactive BACTRIM DS 800-160 MG TAB 1 tab by mouth twice daily BACTRIM DS 800-160 MG TAB 850112 TRIMETHOPRIM-SULFAMETHOXAZOLE Inactive LEVAQUIN 500 MG TAB 1 tablet by mouth daily LEVAQUIN 500 MG TAB 947301 LEVOFLOXACIN Inactive KEFLEX 500 MG CAP 1 po TID x 10 days KEFLEX 500 MG CAP 734434 CEPHALEXIN Inactive BACTRIM DS 800-160 MG TAB 1 tab by mouth twice daily BACTRIM DS 800-160 MG TAB 823281 TRIMETHOPRIM-SULFAMETHOXAZOLE Inactive FENTANYL 25 MCG/HR PT72 Apply to clean, dry skin and change every 72 hours FENTANYL 25 MCG/HR PT72 485126 FENTANYL Inactive ZITHROMAX 250 MG TAB 2 po today, then 1 po q days 2-5 ZITHROMAX 250 MG TAB 2794571 AZITHROMYCIN Inactive AZITHROMYCIN 250 MG TABS 2 po qd x 1 day, then 1 po qd x 4 days AZITHROMYCIN 250 MG TABS 3051052 AZITHROMYCIN Inactive AZITHROMYCIN 250 MG TABS 2 po qd x 1 day, then 1 po qd x 4 days AZITHROMYCIN 250 MG TABS 6818693 AZITHROMYCIN Inactive PREDNISONE 20 MG TAB take 3 tabs daily for 3 days, 2 tabs daily for 3 days, 1 tab daily for 3 days, 1/2 tab daily for 4 days PREDNISONE 20 MG TAB 704405 PREDNISONE Inactive ZITHROMAX Z-RUBEN 250 MG TABS 2 today, then 1 daily for 4 days 2016 ZITHROMAX Z-RUBEN 250 MG TABS 2918541 AZITHROMYCIN Inactive Vital Signs Date Name Value Unit Range Description blood pressure, diastolic - 8462-4 67 mm[Hg] BP mcmahon blood pressure, systolic - 8480-6 137 mm[Hg] BP sys height E&M - 8302-2 63 [in_us] Bdy height pulse rate E&M - 8867-4 71 /min Heart rate temperature E&M 98.6 [degF] Body temperature weight E&M - 3141-9 140.5 [lb_av] Weight Measured blood pressure, diastolic - 8462-4 81 mm[Hg] [...] E&M - 3141-9 156.5 [lb_av] Weight Measured Diagnostic Results Date Name Value Unit Range Description Lab Report: Basic Metabolic Panel - Chemistry sodium, serum 133 mmol/L 230-313 7781/08/24 potassium, serum 4.4 mmol/L 3.5-5.2 chloride, serum 95 mmol/L 98-107 carbon dioxide, venous blood 33.0 mmol/L 21.0-32.0 blood glucose 107 mg/dL 65-110 calcium, serum 8.8 mg/dL 8.5-10.1 urea nitrogen, blood 12 mg/dL 7-18 creatinine, serum 0.69 mg/dL 0.55-1.30 Lab Report: CBC, Basic Metabolic Panel - Chemistry sodium, serum 132 mmol/L 152-052 7816/10/12 potassium, serum 4.7 mmol/L 3.5-5.2 chloride, serum [...] CBC - Chemistry sodium, serum 136 mmol/L 355-720 6785/11/01 carbon dioxide, venous blood 32.1 mmol/L 21.0-32.0 [...] 0.76-1.46 TSH 2.59 m[iU]/mL 0.36-3.74 Lab Report: LIPID PANEL - Chemistry cholesterol, serum 169 mg/dL 546-515 2716/05/09 HDL cholesterol, serum 54 mg/dL > OR=46 triglyceride, serum, fasting 79 mg/dL <150 LDL cholesterol, serum 99 MG/DL (CALC) mg/dL <130 cholesterol/HDL ratio, serum 3.1 (calc) < OR=5.0 Lab Report: UADIP W/MICRO, AUTO - Chemistry [...] Negative Negative nitrite, urine, semiquantitative Negative Negative Office Visit: labs and checkup - Basic LDL target level 130 mg/dL Office Visit: labs and checkup - Chemistry HDL cholesterol, serum, target level 40 mg/dL triglyceride, target level 150 mg/dL cholesterol, target level 200 mg/dL Encounters Code Encounter Date Provider Facility CPT-41171 Level 4 Est. Patient 07:23:02 CDT Gareth Cancino MD [facility] CPT-45188 Level 3 Est. Patient 09:05:25 CLIENT PARTNER Mary Shah APRN [facility] CPT-79024 Level 3 Est. Patient 20:53:25 CLIENT PARTNER Gareth Cancino MD [facility] CPT-47079 Level 3 Est. Patient 10:34:55 CDT Gareth Cancino MD [facility] CPT-03422 Level 4 Est. Patient 09:00:18 CDT Gareth Cancino MD [facility] CPT-46530 Level 3 Est. Patient 15:12:03 CDT Gareth Cancino MD [facility] CPT-43515 Level 3 Est. Patient 23:08:20 CDT Gareth Cancino MD [facility] CPT-12834 Level 4 Est. Patient 20:40:10 CDT Gareth Cancino MD [facility] CPT-36643 Level 4 Est. Patient 19:50:11 CDT Gareth Cancino MD [facility] CPT-93354 Level 3 Est. Patient 11:00:13 CDT Gareth Cancino MD [facility] CPT-73252 Level 4 Est. Patient 11:20:21 CDT Gareth Cancino MD [facility] CPT-22460 Level 4 Est. Patient 09:22:18 CLIENT PARTNER Gareth Cancino MD [facility] CPT-04744 Level 3 Est. Patient 09:48:04 CDT Gareth Cancino MD [facility] CPT-56727 Level 3 Est. Patient 10:13:16 CDT Gareth Cancino MD [facility] CPT-00700 Level 2 Est. Patient 18:36:56 CDT Gareth Cancino MD [facility] CPT-66867 Level 4 Est. Patient 13:50:53 CDT Gareth Cancino MD [facility] CPT-62882 Level 3 Est. Patient 14:58:33 CLIENT PARTNER Gareth Cancino MD [facility] CPT-55984 Level 4 Est. Patient 09:25:57 CDT Gareth Cancino MD [facility] CPT-68589 Level 3 Est. Patient 20:39:33 CDT Noman Edwards DO [facility] CPT-85059 Level 2 Est. Patient 13:17:39 CDT Gareth Cancino MD [facility] CPT-40839 Level 3 Est. Patient 13:37:20 CDT Gareth Cancino MD [facility] CPT-15706 Level 3 Est. Patient 18:09:08 CDT Gareth Cancino MD [facility] CPT-18396 Level 4 Est. Patient 09:59:07 CDT Gareth Cancino MD [facility] Procedures Code Procedure Name Date Entry Date Standard Description CPT-000 Give Appropriate Flu Vaccine 09:29:52 CLIENT PARTNER CPT-000 Give Appropriate Flu Vaccine 09:22:20 CLIENT PARTNER CPT-68340 TSH - LAB USE ONLY 08:11:40 CLIENT PARTNER CPT-98959 Free T4 - LAB USE ONLY 08:11:40 CLIENT PARTNER CPT-81540 Venipuncture Draw Fee 08:11:40 CLIENT PARTNER CPT-32340 UA w micro - LAB USE ONLY 14:26:22 CLIENT PARTNER CPT-G0438 Initial Annual Wellness Exam 20:53:25 CLIENT PARTNER CPT-G0009 Administration of Pneumococcal Vaccine 11:42:53 CLIENT PARTNER CPT-53761 Prevnar 13 Intramuscular Suspension 11:42:53 CLIENT PARTNER 01/07 CPT-19961 First Vx - Ix admin for Medicare patients 11:39:44 CLIENT PARTNER CPT-91072 Fluzone High-Dose Intramuscular Suspension 11:39:44 CLIENT PARTNER CPT-46787 Prevnar 13 Intramuscular Suspension 09:29:52 CLIENT PARTNER 01/07 CPT-67762 CMP - LAB USE ONLY 16:31:15 CDT CPT-44621 CBC - LAB USE ONLY 16:31:14 CDT CPT-05451 Venipuncture Draw Fee 16:31:14 CDT CPT-22955 BMP - LAB USE ONLY 14:37:27 CDT CPT-03382 CBC - LAB USE ONLY 14:37:27 CDT CPT-56903 Venipuncture Draw Fee 14:37:27 CDT CPT-TCMM Transitional Care Mgmt-Moderate 14:43:38 CDT CPT-19201 Venipuncture Draw Fee 10:33:47 CDT CPT-99961 BMP - LAB USE ONLY 10:33:46 CDT CPT-Cryo Cryotherapy 15:12:03 CDT CPT-74210 LS spine AP and Lat - XRAY USE ONLY 10:31:51 CDT 07/27 CPT-88819 Punch biopsy 1 lsn 20:40:09 CDT CPT-G0008 Administration of Influenza Virus Vaccine 10:04:48 CLIENT PARTNER CPT-83319 Fluzone High-Dose Intramuscular Suspension 10:04:48 CLIENT PARTNER CPT-70900 Ribs unilat w PA chst min 3V 10:45:40 CDT CPT-LR Lesion Removal 13:14:55 CDT CPT-Cryo Cryotherapy 13:14:55 CDT CPT-42834 Venipuncture Draw Fee 10:25:49 CDT CPT-67614 Administration single or combination vaccine inc oral 13 :22:14 CLIENT PARTNER CPT-95895 Influenza High Dose age 65+ 13:22:14 CLIENT PARTNER
--- OUTSIDE RECORDS SUMMARY | 2016-12-06 07:58 | XMS REPORT | Clinical Summary ---
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 Urinary frequency Actinic keratosis 702.0 Active Gareth Cancino MD Actinic keratosis Bronchitis-Acute ICD-466.0 Inactive Gareth Cancino MD Medication List Medication Instructions Start Date Stop Date Generic Name ND Status Provider Patient Instruction TRAMADOL HCL 50 MG TABS 1 po tid PRN TRAMADOL HCL 02348428629 Active Danuta Rian Active HYDROCODONE-ACETAMINOPHEN 5-325 MG TABS 1 tab by mouth every 6 hours as needed for bck pain HYDROCODONE-ACETAMINOPHEN 84361102443 Active Gareth Cancino MD Active ALPRAZOLAM 0.25 MG TAB 1/2 to 1 tablet by mouth qhs prn ALPRAZOLAM 57386930595 No Longer Active Gareth Cancino MD Active CLOBETASOL PROPIONATE 0.05 % CREA apply to hand rash bid CLOBETASOL PROPIONATE 07107178577 No Longer Active Gareth Cancino MD Active BACTROBAN 2 % CREAM Apply to affected area BID MUPIROCIN CALCIUM 55795137562 No Longer Active Gareth Cancino MD Active LISINOPRIL 20 MG TABS 1 tablet by mouth daily for high blood pressure 10/14 LISINOPRIL 31285432742 Active Gareth Cancino MD Active BACTRIM DS 800-160 MG TAB 1 tab by mouth twice daily TRIMETHOPRIM-SULFAMETHOXAZOLE 35193946658 No Longer Active Gareth Cancino MD Active METOPROLOL SUCCINATE ER 100 MG [id number] 1 pill by mouth daily, for blood pressure METOPROLOL SUCCINATE 74448436713 Active Gareth Cancino MD Active KEFLEX 500 MG CAP 1 po TID x 10 days CEPHALEXIN 25195884849 No Longer Active Blanca Castillo APRN Active WELLBUTRIN SR 150 MG ORAL [id number] take 1 tab po BID BUPROPION HCL 97930720275 Active Gareth Cancino MD Active METOPROLOL SUCCINATE 50 MG TB24 1 tablet by mouth daily METOPROLOL SUCCINATE 14311556306 No Longer Active Gareth Cancino MD Active OMEPRAZOLE 20 MG TBEC Take one by mouth daily OMEPRAZOLE 84870302460 No Longer Active Gareth Cancino MD Active OMEPRAZOLE 40 MG CPDR 1 tab po qday for acid reflux. OMEPRAZOLE 65414936548 Active Mary Shah APRN Active LEVAQUIN 500 MG TAB 1 tablet by mouth daily LEVOFLOXACIN 02877913735 No Longer Active Gareth Cancino MD Active ALEVE 220 MG TAB 2 tab po qd NAPROXEN SODIUM 87978705357 Active Gareth Cancino MD Active ASPIRIN 81 MG CHEW TAB 1 tablet by mouth daily ASPIRIN 97951088361 Active Gareth Cancino MD Active VENTOLIN HFA 108 (90 BASE) MCG/ACT AERS 1-2 puffs four times a day PRN shortness of breath ALBUTEROL SULFATE 48653058802 Active Mary Shah APRN Active CENTRUM SILVER TABS 1 TAB PO DAILY MULTIPLE VITAMINS-MINERALS 87229252198 Active Gareth Cancino MD Active VITAMIN B12 100 MCG TABS 1 TAB PO DAILY CYANOCOBALAMIN 22825601204 Active Gareth Cancino MD Active CIPRO 500 MG TABS 1 TAB PO BID CIPROFLOXACIN HCL 89607593230 No Longer Active Gareth Cancino MD Active BACTRIM DS 800-160 MG TAB 1 tab by mouth twice daily TRIMETHOPRIM-SULFAMETHOXAZOLE 95997806246 No Longer Active Gareth Cancino MD Active PREDNISONE 20 MG TAB 1 tab po BID for 3 days, then 1 tab po qday for 3 days PREDNISONE 72507046497 No Longer Active Gareth Cancino MD Active FOLIC ACID 800 MCG TABS Take one by mouth daily FOLIC ACID 15366922340 No Longer Active Gareth Cancino MD Active VITAMIN B-6 250 MG TABS Take one by mouth daily PYRIDOXINE HCL 36482277273 No Longer Active Gareth Cancino MD Active B-12 1000 MCG CAPS Take one by mouth daily CYANOCOBALAMIN 90918427185 No Longer Active Gareth Cancino MD Active DOXYCYCLINE HYCLATE 100 MG CAP 1 cap by mouth twice daily DOXYCYCLINE HYCLATE 76345690381 No Longer Active Gareth Cancino MD Active PREDNISONE 20 MG TAB 1 po bid 3 days, then 1 po q day 3 days 2011 PREDNISONE 34500108301 No Longer Active Gareth Cancino MD Active CHANTIX STARTING MONTH RUBEN 0.5 MG X 11 & 1 MG X 42 TABS 0.5mg daily for 3 days , then 0.5mg BID for 4 days, then 1mg BID VARENICLINE TARTRATE 78439243223 No Longer Active Gareth Cancino MD Active SIMVASTATIN 40 MG TABS Take one by mouth daily SIMVASTATIN 61349151496 Active Gareth Cancino MD Active TRIAMTERENE-HCTZ 37.5-25 MG CAPS Take one by mouth daily TRIAMTERENE- HCTZ 90128700296 Active Gareth Cancino MD Active CHANTIX STARTING [...] 3 days 2011 PREDNISONE 20 MG TAB 417388 PREDNISONE Inactive DOXYCYCLINE HYCLATE 100 MG CAP 1 cap by mouth twice daily DOXYCYCLINE HYCLATE 100 MG CAP 7314603 DOXYCYCLINE HYCLATE Inactive B-12 1000 MCG CAPS Take one by mouth daily B-12 1000 MCG CAPS CYANOCOBALAMIN Inactive VITAMIN B-6 250 MG TABS Take one by mouth daily VITAMIN B-6 250 MG TABS PYRIDOXINE HCL Inactive FOLIC ACID 800 MCG TABS Take one by mouth daily FOLIC ACID 800 MCG TABS 588636 FOLIC ACID Inactive CIPRO 500 MG TABS 1 TAB PO BID CIPRO 500 MG TABS 494537 CIPROFLOXACIN HCL Inactive OMEPRAZOLE 20 MG TBEC Take one by mouth daily OMEPRAZOLE 20 MG TBEC 563105 OMEPRAZOLE Inactive METOPROLOL SUCCINATE 50 MG TB24 1 tablet by mouth daily METOPROLOL SUCCINATE 50 MG TB24 METOPROLOL SUCCINATE Inactive BACTROBAN 2 % CREAM Apply to affected area BID BACTROBAN 2 % CREAM 927700 MUPIROCIN CALCIUM Inactive CLOBETASOL PROPIONATE 0.05 % CREA apply to hand rash bid CLOBETASOL PROPIONATE 0.05 % CREA 229431 CLOBETASOL PROPIONATE Inactive ALPRAZOLAM 0.25 MG TAB 1/2 to 1 tablet by mouth qhs prn ALPRAZOLAM 0.25 MG TAB 800506 ALPRAZOLAM Inactive PREDNISONE 20 MG TAB 1 tab po BID for 3 days, then 1 tab po qday for 3 days PREDNISONE 20 MG TAB 579406 PREDNISONE Inactive BACTRIM DS 800-160 MG TAB 1 tab by mouth twice daily BACTRIM DS 800-160 MG TAB 770647 TRIMETHOPRIM-SULFAMETHOXAZOLE Inactive LEVAQUIN 500 MG TAB 1 tablet by mouth daily LEVAQUIN 500 MG TAB 052158 LEVOFLOXACIN Inactive KEFLEX 500 MG CAP 1 po TID x 10 days KEFLEX 500 MG CAP 214497 CEPHALEXIN Inactive BACTRIM DS 800-160 MG TAB 1 tab by mouth twice daily BACTRIM DS 800-160 MG TAB 018808 TRIMETHOPRIM-SULFAMETHOXAZOLE Inactive Vital Signs Date Name Value [...] Panel - Chemistry sodium, serum 133 mmol/L 752-280 7526/08/24 potassium, serum 4.4 mmol/L 3.5-5.2 chloride, serum 95 mmol/L 98-107 carbon dioxide, venous blood 33.0 mmol/L 21.0-32.0 blood glucose 107 mg/dL 65-110 calcium, serum 8.8 mg/dL 8.5-10.1 urea nitrogen, blood 12 mg/dL 7-18 creatinine, serum 0.69 mg/dL 0.55-1.30 Lab Report: Lipid Panel, Comp. Metabolic Panel, CBC W/DIFF, MICROALB/CRE ... - Chemistry albumin/creatinine ratio, urine < 30 mg/g mg/g{creat} 0-29 cholesterol, serum 195 mg/dL 340-369 8966/12/02 triglyceride, serum, fasting 74 mg/dL 30-200 HDL cholesterol, serum 52 mg/dL 32-96 LDL cholesterol, serum 128 mg/dL 0-130 sodium, serum 134 mmol/L 071-941 4947/12/02 carbon dioxide, venous blood 30.3 mmol/L 21.0-32.0 potassium, serum 5.2 mmol/L 3.5-5.2 chloride, serum 97 mmol/L 98-107 blood glucose 103 mg/dL 65-110 urea nitrogen, blood 13 mg/dL 7-18 creatinine, serum 0.76 mg/dL 0.55-1.30 alanine aminotransferase (SGPT), serum 24 U/L 12-78 aspartate aminotransferase (SGOT), serum 19 U/L 15-37 calcium, serum 9.2 mg/dL 8.5-10.1 bilirubin, serum, total 0.50 mg/dL 0.00-1.00 Lab Report: Lipid Panel, Comp. Metabolic Panel, [...] 5.0-8.5 Encounters Code Encounter Date Provider Facility CPT-49345 Level 4 Est. Patient 09:00:18 CDT Gareth Cancino MD [facility] CPT-38182 Level 3 Est. Patient 15:12:03 CDT Gareth Cancino MD [facility] CPT-52579 Level 3 Est. Patient 23:08:20 CDT Gareth Cancino MD [facility] CPT-60737 Level 4 Est. Patient 20:40:10 CDT Gareth Cancino MD [facility] CPT-12451 Level 4 Est. Patient 19:50:11 CDT Gareth Cancino MD [facility] CPT-85700 Level 3 Est. Patient 11:00:13 CDT Gareth Cancino MD [facility] CPT-27818 Level 4 Est. Patient 11:20:21 CDT Gareth Cancino MD [facility] CPT-14297 Level 4 Est. Patient 09:22:18 ACCOUNT RESOLUTION SPECIALIST Gareth Cancino MD [facility] CPT-82902 Level 3 Est. Patient 09:48:04 CDT Gareth Cancino MD [facility] CPT-11596 Level 3 Est. Patient 10:13:16 CDT Gareth Cancino MD [facility] CPT-90820 Level 2 Est. Patient 18:36:56 CDT Gareth Cancino MD [facility] CPT-98229 Level 4 Est. Patient 13:50:53 CDT Gareth Cancino MD [facility] CPT-52759 Level 3 Est. Patient 14:58:33 ACCOUNT RESOLUTION SPECIALIST Gareth Cancino MD [facility] CPT-49506 Level 4 Est. Patient 09:25:57 CDT Gareth Cancino MD [facility] CPT-25040 Level 3 Est. Patient 20:39:33 CDT Noman Edwards DO [facility] CPT-45965 Level 2 Est. Patient 13:17:39 CDT Gareth Cancino MD [facility] CPT-85853 Level 3 Est. Patient 13:37:20 CDT Gareth Cancino MD [facility] CPT-42190 Level 3 Est. Patient 18:09:08 CDT Gareth Cancino MD [facility] CPT-38818 Level 4 Est. Patient 09:59:07 CDT Gareth Cancino MD [facility] Procedures Code Procedure Name Date Entry Date Standard Description CPT-28082 Venipuncture Draw Fee 10:33:47 CDT CPT-41071 BMP - LAB USE ONLY 10:33:46 CDT CPT-Cryo Cryotherapy 15:12:03 CDT CPT-81603 LS spine AP and Lat - XRAY USE ONLY 10:31:51 CDT 07/27 CPT-80255 Punch biopsy 1 lsn 20:40:09 CDT CPT-G0008 Administration of Influenza Virus Vaccine 10:04:48 ACCOUNT RESOLUTION SPECIALIST CPT-39361 Fluzone High-Dose Intramuscular Suspension 10:04:48 ACCOUNT RESOLUTION SPECIALIST CPT-71569 Ribs ida w PA chst min 3V 10:45:40 CDT CPT-LR Lesion Removal 13:14:55 CDT CPT-Cryo Cryotherapy 13:14:55 CDT CPT-34905 Venipuncture Draw Fee 10:25:49 CDT CPT-46223 Administration single or combination vaccine inc oral 13 :22:14 ACCOUNT RESOLUTION SPECIALIST CPT-14822 Influenza High Dose age 65+ 13:22:14 ACCOUNT RESOLUTION SPECIALIST
--- OUTSIDE RECORDS SUMMARY | 2016-12-06 07:59 | XMS REPORT | Clinical Summary ---
Author Author Admin, HILARIA Organization [facility] Address Unknown Phone Unavailable Allergies, Adverse Reactions, [...] Gareth Cancino MD Other and unspecified hyperlipidemia HYPERLIPIDEMIA, OTHER UNSPECIFIED ICD-272.4 Inactive Gareth Cancino [...] Generic Name NDC Status Provider Patient Instruction AZITHROMYCIN 250 MG TABS 2 po qd x 1 day, then 1 po qd x 4 days AZITHROMYCIN 72797469930 Active Tangela Forte Active HYDROCODONE-ACETAMINOPHEN 5-325 MG TABS 1 tab by mouth every 6 hours as needed for bck pain HYDROCODONE-ACETAMINOPHEN 51129422830 No Longer Active Gareth Cancino MD Active FENTANYL 12 MCG/HR PT72 Apply to clean, dry skin and change every 72 hours FENTANYL 12600697903 Active Gareth Cancino MD Active ALPRAZOLAM 0.25 MG TAB 1 tablet by mouth q hs prn ALPRAZOLAM 86719866132 Active Gareth Cancino MD Active AZITHROMYCIN 250 MG ORAL TABS 1 tab daily AZITHROMYCIN 23693139979 No Longer Active Gareth Cancino MD Active ZITHROMAX 250 MG TAB 2 po today, then 1 po q days 2-5 AZITHROMYCIN 57596372159 No Longer Active Tangela Forte Active IPRATROPIUM-ALBUTEROL 0.5-2.5 (3) MG/3ML INH SOLN nebulize 1 vial every 6hrs prn shortness of breath IPRATROPIUM-ALBUTEROL 58903546222 Active Gareth Cancino MD Active FENTANYL 25 MCG/HR PT72 Apply to clean, dry skin and change every 72 hours FENTANYL 09233724823 No Longer Active Gareth Cancino MD Active WELLBUTRIN SR 150 MG ORAL [id number] take 1 tab po BID BUPROPION HCL 16437252634 No Longer Active Gareth Cancino MD Active ZOFRAN 4 MG ORAL TABS 1 by mouth every 6 hours prn nausea ONDANSETRON HCL 02719176254 Active Tangela Forte Active TRAMADOL HCL 50 MG TABS 1 po tid PRN TRAMADOL HCL 95462171276 Active Gareth Cancino MD Active ALPRAZOLAM 0.25 MG TAB 1/2 to 1 tablet by mouth qhs prn ALPRAZOLAM 70932261860 No Longer Active Gareth Cancino MD Active CLOBETASOL PROPIONATE 0.05 % CREA apply to hand rash bid CLOBETASOL PROPIONATE 54139679701 No Longer Active Gareth Cancino MD Active BACTROBAN 2 % CREAM Apply to affected area BID MUPIROCIN CALCIUM 28609553842 No Longer Active Gareth Cancino MD Active LISINOPRIL 20 MG TABS 1 tablet by mouth daily for high blood pressure 10/14 LISINOPRIL 07220969081 Active Gareth Cancino MD Active BACTRIM DS 800-160 MG TAB 1 tab by mouth twice daily TRIMETHOPRIM-SULFAMETHOXAZOLE 58615430907 No Longer Active Gareth Cancino MD Active METOPROLOL SUCCINATE ER 100 MG [id number] 1 pill by mouth daily, for blood pressure METOPROLOL SUCCINATE 81495404782 Active Gareth Cancino MD Active KEFLEX 500 MG CAP 1 po TID x 10 days CEPHALEXIN 21994405293 No Longer Active Blanca Castillo APRN Active METOPROLOL SUCCINATE 50 MG TB24 1 tablet by mouth daily METOPROLOL SUCCINATE 97696346955 No Longer Active Gareth Cancino MD Active OMEPRAZOLE 20 MG TBEC Take one by mouth daily OMEPRAZOLE 01280767826 No Longer Active Gareth Cancino MD Active OMEPRAZOLE 40 MG CPDR 1 tab po qday for acid reflux. OMEPRAZOLE 11517575080 Active Mary Shah APRN Active LEVAQUIN 500 MG TAB 1 tablet by mouth daily LEVOFLOXACIN 48774010827 No Longer Active Gareth Cancino MD Active ALEVE 220 MG TAB 2 tab po qd NAPROXEN SODIUM 63461651517 Active Gareth Cancino MD Active ASPIRIN 81 MG CHEW TAB 1 tablet by mouth daily ASPIRIN 90389478988 Active Gareth Cancino MD Active VENTOLIN HFA 108 (90 BASE) MCG/ACT AERS 1-2 puffs four times a day PRN shortness of breath ALBUTEROL SULFATE 15807058028 Active Mary Shah APRN Active CENTRUM SILVER TABS 1 TAB PO DAILY MULTIPLE VITAMINS-MINERALS 29885753701 Active Gareth Cancino MD Active VITAMIN B12 100 MCG TABS 1 TAB PO DAILY CYANOCOBALAMIN 89677448997 Active Gareth Cancino MD Active CIPRO 500 MG TABS 1 TAB PO BID CIPROFLOXACIN HCL 08948147713 No Longer Active Gareth Cancino MD Active BACTRIM DS 800-160 MG TAB 1 tab by mouth twice daily TRIMETHOPRIM-SULFAMETHOXAZOLE 76202416985 No Longer Active Gareth Cancino MD Active PREDNISONE 20 MG TAB 1 tab po BID for 3 days, then 1 tab po qday for 3 days PREDNISONE 14604242716 No Longer Active Gareth Cancino MD Active FOLIC ACID 800 MCG TABS Take one by mouth daily FOLIC ACID 11780453905 No Longer Active Gareth Cancino MD Active VITAMIN B-6 250 MG TABS Take one by mouth daily PYRIDOXINE HCL 22964567631 No Longer Active Gareth Cancino MD Active B-12 1000 MCG CAPS Take one by mouth daily CYANOCOBALAMIN 25758529307 No Longer Active Gareth Cancino MD Active DOXYCYCLINE HYCLATE 100 MG CAP 1 cap by mouth twice daily DOXYCYCLINE HYCLATE 68742856837 No Longer Active Gareth Cancino MD Active PREDNISONE 20 MG TAB 1 po bid 3 days, then 1 po q day 3 days 2011 PREDNISONE 26874389101 No Longer Active Gareth Cancino MD Active CHANTIX STARTING MONTH RUBEN 0.5 MG X 11 & 1 MG X 42 TABS 0.5mg daily for 3 days , then 0.5mg BID for 4 days, then 1mg BID VARENICLINE TARTRATE 31421347632 No Longer Active Gareth Cancino MD Active SIMVASTATIN 40 MG TABS Take one by mouth daily SIMVASTATIN 00007099435 Active Gareth Cancino MD Active TRIAMTERENE-HCTZ 37.5-25 MG CAPS Take one by mouth daily TRIAMTERENE- HCTZ 59601628812 Active Gareth Cancino MD Active CHANTIX STARTING [...] 3 days 2011 PREDNISONE 20 MG TAB 263727 PREDNISONE Inactive DOXYCYCLINE HYCLATE 100 MG CAP 1 cap by mouth twice daily DOXYCYCLINE HYCLATE 100 MG CAP 3737148 DOXYCYCLINE HYCLATE Inactive B-12 1000 MCG CAPS Take one by mouth daily B-12 1000 MCG CAPS CYANOCOBALAMIN Inactive VITAMIN B-6 250 MG TABS Take one by mouth daily VITAMIN B-6 250 MG TABS PYRIDOXINE HCL Inactive FOLIC ACID 800 MCG TABS Take one by mouth daily FOLIC ACID 800 MCG TABS 878006 FOLIC ACID Inactive CIPRO 500 MG TABS 1 TAB PO BID CIPRO 500 MG TABS 653871 CIPROFLOXACIN HCL Inactive OMEPRAZOLE 20 MG TBEC Take one by mouth daily OMEPRAZOLE 20 MG TBEC 432429 OMEPRAZOLE Inactive METOPROLOL SUCCINATE 50 MG TB24 1 tablet by mouth daily METOPROLOL SUCCINATE 50 MG TB24 METOPROLOL SUCCINATE Inactive BACTROBAN 2 % CREAM Apply to affected area BID BACTROBAN 2 % CREAM 476488 MUPIROCIN CALCIUM Inactive CLOBETASOL PROPIONATE 0.05 % CREA apply to hand rash bid CLOBETASOL PROPIONATE 0.05 % CREA 867058 CLOBETASOL PROPIONATE Inactive ALPRAZOLAM 0.25 MG TAB 1/2 to 1 tablet by mouth qhs prn ALPRAZOLAM 0.25 MG TAB 281364 ALPRAZOLAM Inactive WELLBUTRIN SR 150 MG ORAL [id number] take 1 tab po BID WELLBUTRIN SR 150 MG ORAL [id number] BUPROPION HCL Inactive AZITHROMYCIN 250 MG ORAL TABS 1 tab daily AZITHROMYCIN 250 MG ORAL TABS 1423964 AZITHROMYCIN Inactive HYDROCODONE-ACETAMINOPHEN 5-325 MG TABS 1 tab by mouth every 6 hours as needed for bck pain HYDROCODONE-ACETAMINOPHEN 5-325 MG TABS 042044 HYDROCODONE-ACETAMINOPHEN Inactive PREDNISONE 20 MG TAB 1 tab po BID for 3 days, then 1 tab po qday for 3 days PREDNISONE 20 MG TAB 937880 PREDNISONE Inactive BACTRIM DS 800-160 MG TAB 1 tab by mouth twice daily BACTRIM DS 800-160 MG TAB 438866 TRIMETHOPRIM-SULFAMETHOXAZOLE Inactive LEVAQUIN 500 MG TAB 1 tablet by mouth daily LEVAQUIN 500 MG TAB 685179 LEVOFLOXACIN Inactive KEFLEX 500 MG CAP 1 po TID x 10 days KEFLEX 500 MG CAP 038167 CEPHALEXIN Inactive BACTRIM DS 800-160 MG TAB 1 tab by mouth twice daily BACTRIM DS 800-160 MG TAB 729468 TRIMETHOPRIM-SULFAMETHOXAZOLE Inactive FENTANYL 25 MCG/HR PT72 Apply to clean, dry skin and change every 72 hours FENTANYL 25 MCG/HR PT72 427422 FENTANYL Inactive ZITHROMAX 250 MG TAB 2 po today, then 1 po q days 2-5 ZITHROMAX 250 MG TAB 5403449 AZITHROMYCIN Inactive Vital Signs Date Name Value Unit Range Description blood pressure, diastolic - 8462-4 68 mm[Hg] [...] Panel - Chemistry sodium, serum 133 mmol/L 180-112 6618/08/24 potassium, serum 4.4 mmol/L 3.5-5.2 chloride, serum 95 mmol/L 98-107 carbon dioxide, venous blood 33.0 mmol/L 21.0-32.0 blood glucose 107 mg/dL 65-110 calcium, serum 8.8 mg/dL 8.5-10.1 urea nitrogen, blood 12 mg/dL 7-18 creatinine, serum 0.69 mg/dL 0.55-1.30 Lab Report: CBC, Basic Metabolic Panel - Chemistry sodium, serum 132 mmol/L 670-249 0925/10/12 potassium, serum 4.7 mmol/L 3.5-5.2 chloride, serum [...] CBC - Chemistry sodium, serum 136 mmol/L 843-544 5044/11/01 carbon dioxide, venous blood 32.1 mmol/L 21.0-32.0 [...] Negative Encounters Code Encounter Date Provider Facility CPT-75816 Level 3 Est. Patient 20:53:25 FORMING ACID DUMPER Gareth Cancino MD [facility] CPT-44963 Level 3 Est. Patient 10:34:55 CDT Gareth Cancino MD [facility] CPT-96831 Level 4 Est. Patient 09:00:18 CDT Gareth Cancino MD [facility] CPT-82636 Level 3 Est. Patient 15:12:03 CDT Gareth Cancino MD [facility] CPT-50723 Level 3 Est. Patient 23:08:20 CDT Gareth Cancino MD [facility] CPT-47675 Level 4 Est. Patient 20:40:10 CDT Gareth Cancino MD [facility] CPT-73814 Level 4 Est. Patient 19:50:11 CDT Gareth Cancino MD [facility]-68549 Level 3 Est. Patient 11:00:13 CDT Gareth Cancino MD [facility] CPT-88855 Level 4 Est. Patient 11:20:21 CDT Gareth Cancino MD [facility] CPT-17450 Level 4 Est. Patient 09:22:18 FORMING ACID DUMPER Gareth Cancino MD [facility] CPT-22801 Level 3 Est. Patient 09:48:04 CDT Gareth Cancino MD [facility] CPT-79414 Level 3 Est. Patient 10:13:16 CDT Gareth Cancino MD [facility] CPT-48466 Level 2 Est. Patient 18:36:56 CDT Gareth Cancino MD [facility] CPT-22911 Level 4 Est. Patient 13:50:53 CDT Gareth Cancino MD [facility]-29341 Level 3 Est. Patient 14:58:33 FORMING ACID DUMPER Gareth Cancino MD [facility] CPT-80727 Level 4 Est. Patient 09:25:57 CDT Gareth Cancino MD [facility] CPT-02965 Level 3 Est. Patient 20:39:33 CDT Noman Edwards DO [facility] CPT-00904 Level 2 Est. Patient 13:17:39 CDT Gareth Cancino MD [facility]-78927 Level 3 Est. Patient 13:37:20 CDT Gareth Cancino MD [facility]-47845 Level 3 Est. Patient 18:09:08 CDT Gareth Cancino MD [facility] CPT-30865 Level 4 Est. Patient 09:59:07 CDT Gareth Cancino MD [facility] Procedures Code Procedure Name Date Entry Date Standard Description CPT-53901 TSH - LAB USE ONLY 08:11:40 FORMING ACID DUMPER CPT-91818 Free T4 - LAB USE ONLY 08:11:40 FORMING ACID DUMPER CPT-28881 Venipuncture Draw Fee 08:11:40 FORMING ACID DUMPER CPT-12655 UA w micro - LAB USE ONLY 14:26:22 FORMING ACID DUMPER CPT-G0438 Initial Annual Wellness Exam 20:53:25 FORMING ACID DUMPER CPT-G0009 Administration of Pneumococcal Vaccine 11:42:53 FORMING ACID DUMPER CPT-32126 Prevnar 13 Intramuscular Suspension 11:42:53 FORMING ACID DUMPER 01/07 CPT-57300 First Vx - Ix admin for Medicare patients 11:39:44 FORMING ACID DUMPER CPT-94321 Fluzone High-Dose Intramuscular Suspension 11:39:44 FORMING ACID DUMPER CPT-58913 Prevnar 13 Intramuscular Suspension 09:29:52 FORMING ACID DUMPER 01/07 CPT-34074 CMP - LAB USE ONLY 16:31:15 CDT CPT-76818 CBC - LAB USE ONLY 16:31:14 CDT CPT-05224 Venipuncture Draw Fee 16:31:14 CDT CPT-85290 BMP - LAB USE ONLY 14:37:27 CDT CPT-11983 CBC - LAB USE ONLY 14:37:27 CDT CPT-49245 Venipuncture Draw Fee 14:37:27 CDT CPT-TCMM Transitional Care Mgmt-Moderate 14:43:38 CDT CPT-41169 Venipuncture Draw Fee 10:33:47 CDT CPT-32811 BMP - LAB USE ONLY 10:33:46 CDT CPT-Cryo Cryotherapy 15:12:03 CDT CPT-93112 LS spine AP and Lat - XRAY USE ONLY 10:31:51 CDT 07/27 CPT-16136 Punch biopsy 1 lsn 20:40:09 CDT CPT-G0008 Administration of Influenza Virus Vaccine 10:04:48 FORMING ACID DUMPER CPT-69653 Fluzone High-Dose Intramuscular Suspension 10:04:48 FORMING ACID DUMPER CPT-20453 Ribs unilat w PA chst min 3V 10:45:40 CDT CPT-LR Lesion Removal 13:14:55 CDT CPT-Cryo Cryotherapy 13:14:55 CDT CPT-15334 Venipuncture Draw Fee 10:25:49 CDT CPT-75531 Administration single or combination vaccine inc oral 13 :22:14 FORMING ACID DUMPER CPT-32500 Influenza High Dose age 65+ 13:22:14 FORMING ACID DUMPER
--- OUTSIDE RECORDS SUMMARY | 2016-12-06 08:00 | XMS REPORT | Clinical Summary ---
Author Author Admin, Leon Organization [employer] Address Unknown Phone Unavailable Allergies, Adverse Reactions, [...] cause Skin lesion 709.9 Active Blanca Castillo SAND ANALYST Unspecified disorder of skin and subcutaneous tissue Folliculitis 704.8 Active Gareth Cancino MD Other specified diseases of hair and hair follicles Low back pain, chronic 724.2 Active Graeth Cancino MD Lumbago Frequency of urination 788.41 Active Negin Garcia LPN Urinary frequency Bronchitis-Acute ICD-466.0 Inactive Gareth Cancino MD Medication List Medication Instructions Start Date Stop Date Generic Name [facility] Status Provider Patient Instruction ALPRAZOLAM 0.25 MG TAB 1/2 to 1 tablet by mouth qhs prn ALPRAZOLAM 76008471034 No Longer Active Gareth Cancino MD Active CLOBETASOL PROPIONATE 0.05 % CREA apply to hand rash bid CLOBETASOL PROPIONATE 82808493758 No Longer Active Gareth Cancino MD Active BACTROBAN 2 % CREAM Apply to affected area BID MUPIROCIN CALCIUM 63472122899 No Longer Active Gareth Cancino MD Active LISINOPRIL 20 MG TABS 1 tablet by mouth daily for high blood pressure 10/14 LISINOPRIL 48918043109 Active Gareth Cancino MD Active BACTRIM DS 800-160 MG TAB 1 tab by mouth twice daily TRIMETHOPRIM-SULFAMETHOXAZOLE 87703567871 No Longer Active Gareth Cancino MD Active METOPROLOL SUCCINATE ER 100 MG [id number] 1 pill by mouth daily, for blood pressure METOPROLOL SUCCINATE 63941366953 Active Gareth Cancino MD Active KEFLEX 500 MG CAP 1 po TID x 10 days CEPHALEXIN 10873128542 No Longer Active Blanca Castillo APRN Active WELLBUTRIN SR 150 MG ORAL AH85G-CAB take 1 tab po BID BUPROPION HCL 08538202072 Active Gareth Cancino MD Active METOPROLOL SUCCINATE 50 MG TB24 1 tablet by mouth daily METOPROLOL SUCCINATE 81165393960 No Longer Active Gareth Cancino MD Active OMEPRAZOLE 20 MG TBEC Take one by mouth daily OMEPRAZOLE 96697020382 No Longer Active Gareth Cancino MD Active OMEPRAZOLE 40 MG CPDR 1 tab po qday for acid reflux. OMEPRAZOLE 98582240916 Active Mary Shah APRN Active LEVAQUIN 500 MG TAB 1 tablet by mouth daily LEVOFLOXACIN 72856043089 No Longer Active Gareth Cancino MD Active ALEVE 220 MG TAB 2 tab po qd NAPROXEN SODIUM 45240624400 Active Gareth Cancino MD Active ASPIRIN 81 MG CHEW TAB 1 tablet by mouth daily ASPIRIN 11599395635 Active Gareth Cancino MD Active VENTOLIN HFA 108 (90 BASE) MCG/ACT AERS 1-2 puffs four times a day PRN shortness of breath ALBUTEROL SULFATE 89449219951 Active Mary Shah SAND ANALYST Active CENTRUM SILVER TABS 1 TAB PO DAILY MULTIPLE VITAMINS-MINERALS 30978089741 Active Gareth Cancino MD Active VITAMIN B12 100 MCG TABS 1 TAB PO DAILY CYANOCOBALAMIN 65654759186 Active Gareth Cancino MD Active CIPRO 500 MG TABS 1 TAB PO BID CIPROFLOXACIN HCL 00934326668 No Longer Active Gareth Cancino MD Active BACTRIM DS 800-160 MG TAB 1 tab by mouth twice daily TRIMETHOPRIM-SULFAMETHOXAZOLE 58281758984 No Longer Active Gareth Cancino MD Active PREDNISONE 20 MG TAB 1 tab po BID for 3 days, then 1 tab po qday for 3 days PREDNISONE 73162860688 No Longer Active Gareth Cancino MD Active FOLIC ACID 800 MCG TABS Take one by mouth daily FOLIC ACID 09744053056 No Longer Active Gareth Cancino MD Active VITAMIN B-6 250 MG TABS Take one by mouth daily PYRIDOXINE HCL 45122171311 No Longer Active Gareth Cancino MD Active B-12 1000 MCG CAPS Take one by mouth daily CYANOCOBALAMIN 08858628957 No Longer Active Gareth Cancino MD Active DOXYCYCLINE HYCLATE 100 MG CAP 1 cap by mouth twice daily DOXYCYCLINE HYCLATE 92379613856 No Longer Active Gareth Cancino MD Active PREDNISONE 20 MG TAB 1 po bid 3 days, then 1 po q day 3 days 2011 PREDNISONE 44845154997 No Longer Active Gareth Cancino MD Active CHANTIX STARTING MONTH RUBEN 0.5 MG X 11 & 1 MG X 42 TABS 0.5mg daily for 3 days , then 0.5mg BID for 4 days, then 1mg BID VARENICLINE TARTRATE 90868580790 No Longer Active Gareth Cancino MD Active SIMVASTATIN 40 MG TABS Take one by mouth daily SIMVASTATIN 38020300771 Active Gareth Cancino MD Active TRIAMTERENE-HCTZ 37.5-25 MG CAPS Take one by mouth daily TRIAMTERENE- HCTZ 38553834280 Active Gareth Cancino MD Active CHANTIX STARTING [...] 3 days 2011 PREDNISONE 20 MG TAB 903447 PREDNISONE Inactive DOXYCYCLINE HYCLATE 100 MG CAP 1 cap by mouth twice daily DOXYCYCLINE HYCLATE 100 MG CAP 3484683 DOXYCYCLINE HYCLATE Inactive B-12 1000 MCG CAPS Take one by mouth daily B-12 1000 MCG CAPS CYANOCOBALAMIN Inactive VITAMIN B-6 250 MG TABS Take one by mouth daily VITAMIN B-6 250 MG TABS PYRIDOXINE HCL Inactive FOLIC ACID 800 MCG TABS Take one by mouth daily FOLIC ACID 800 MCG TABS 697387 FOLIC ACID Inactive CIPRO 500 MG TABS 1 TAB PO BID CIPRO 500 MG TABS 792141 CIPROFLOXACIN HCL Inactive OMEPRAZOLE 20 MG TBEC Take one by mouth daily OMEPRAZOLE 20 MG TBEC 823853 OMEPRAZOLE Inactive METOPROLOL SUCCINATE 50 MG TB24 1 tablet by mouth daily METOPROLOL SUCCINATE 50 MG TB24 METOPROLOL SUCCINATE Inactive BACTROBAN 2 % CREAM Apply to affected area BID BACTROBAN 2 % CREAM 822632 MUPIROCIN CALCIUM Inactive CLOBETASOL PROPIONATE 0.05 % CREA apply to hand rash bid CLOBETASOL PROPIONATE 0.05 % CREA 496694 CLOBETASOL PROPIONATE Inactive ALPRAZOLAM 0.25 MG TAB 1/2 to 1 tablet by mouth qhs prn ALPRAZOLAM 0.25 MG TAB 925602 ALPRAZOLAM Inactive PREDNISONE 20 MG TAB 1 tab po BID for 3 days, then 1 tab po qday for 3 days PREDNISONE 20 MG TAB 528800 PREDNISONE Inactive BACTRIM DS 800-160 MG TAB 1 tab by mouth twice daily BACTRIM DS 800-160 MG TAB 396216 TRIMETHOPRIM-SULFAMETHOXAZOLE Inactive LEVAQUIN 500 MG TAB 1 tablet by mouth daily LEVAQUIN 500 MG TAB 068084 LEVOFLOXACIN Inactive KEFLEX 500 MG CAP 1 po TID x 10 days KEFLEX 500 MG CAP 604903 CEPHALEXIN Inactive BACTRIM DS 800-160 MG TAB 1 tab by mouth twice daily BACTRIM DS 800-160 MG TAB 810308 TRIMETHOPRIM-SULFAMETHOXAZOLE Inactive Vital Signs Date Name Value [...] ... - Chemistry cholesterol, serum 195 mg/dL 883-079 0217/12/02 triglyceride, serum, fasting 74 mg/dL 30-200 HDL cholesterol, serum 52 mg/dL 32-96 LDL cholesterol, serum 128 mg/dL 0-130 sodium, serum 134 mmol/L 356-506 9694/12/02 carbon dioxide, venous blood 30.3 mmol/L 21.0-32.0 [...] 0-19 Encounters Code Encounter Date Provider Facility CPT-40312 Level 3 Est. Patient 23:08:20 CDT Gareth Cancino MD [facility] CPT-15417 Level 4 Est. Patient 20:40:10 CDT Gareth Cancino MD [facility] CPT-12936 Level 4 Est. Patient 19:50:11 CDT Gareth Cancino MD [facility] CPT-00330 Level 3 Est. Patient 11:00:13 CDT Gareth Cancino MD [facility]-92880 Level 4 Est. Patient 11:20:21 CDT Gareth Cancino MD [facility] CPT-13533 Level 4 Est. Patient 09:22:18 VENEER GLUER Gareth Cancino MD [facility] CPT-36326 Level 3 Est. Patient 09:48:04 CDT Gareth Cancino MD [facility] CPT-56628 Level 3 Est. Patient 10:13:16 CDT Gareth Cancino MD [facility]-30381 Level 2 Est. Patient 18:36:56 CDT Gareth Cancino MD [facility]-46377 Level 4 Est. Patient 13:50:53 CDT Gareth Cancino MD [facility] CPT-22371 Level 3 Est. Patient 14:58:33 VENEER GLUER Gareth Cancino MD [facility] CPT-47382 Level 4 Est. Patient 09:25:57 CDT Gareth Cancino MD [facility] CPT-98055 Level 3 Est. Patient 20:39:33 CDT Noman Edwards DO [facility] CPT-59930 Level 2 Est. Patient 13:17:39 CDT Gareth Cancino MD [facility] CPT-25051 Level 3 Est. Patient 13:37:20 CDT Gareth Cancino MD [facility]-55858 Level 3 Est. Patient 18:09:08 CDT Gareth Cancino MD [facility]-13614 Level 4 Est. Patient 09:59:07 CDT Gareth Cancino MD [facility] Procedures Code Procedure Name Date Entry Date Standard Description CPT-51425 LS spine AP and Lat - XRAY USE ONLY 10:31:51 CDT 07/27 CPT-91118 Punch biopsy 1 lsn 20:40:09 CDT CPT-G0008 Administration of Influenza Virus Vaccine 10:04:48 VENEER GLUER CPT-29723 Fluzone High-Dose Intramuscular Suspension 10:04:48 VENEER GLUER CPT-41934 Ribs unilat w PA chst min 3V 10:45:40 CDT CPT-LR Lesion Removal 13:14:55 CDT CPT-Cryo Cryotherapy 13:14:55 CDT CPT-88579 Venipuncture Draw Fee 10:25:49 CDT CPT-17246 Administration single or combination vaccine inc oral 13 :22:14 VENEER GLUER CPT-00342 Influenza High Dose age 65+ 13:22:14 VENEER GLUER
--- OUTSIDE RECORDS SUMMARY | 2016-12-06 08:00 | XMS REPORT | Clinical Summary ---
Author Author Admin, HILARIA Organization [employer] Address Unknown Phone Unavailable Allergies, Adverse Reactions, [...] Gareth Cancino MD Hypokalemia ICD-276.8 Inactive Gareth Cancion MD Medication List Medication Instructions Start Date Stop Date Generic Name NDC Status Provider Patient Instruction ZITHROMAX 1 GM ORAL PACK as directed AZITHROMYCIN 55306069296 Active Tangela Forte Active PIROXICAM 20 MG ORAL CAPS 1 po daily as needed for arthritis/pain PIROXICAM 00996539318 Active Gareth Cancino MD Active ZITHROMAX Z-RUBEN 250 MG TABS 2 today, then 1 daily for 4 days 2016 AZITHROMYCIN 58059630878 No Longer Active Tangelashar Forte Active FENTANYL 25 MCG/HR TRANS PT72 1 patch every 72 hours FENTANYL 73721705320 Active Mary Shah APRN Active PREDNISONE 20 MG TAB take 3 tabs daily for 3 days, 2 tabs daily for 3 days, 1 tab daily for 3 days, 1/2 tab daily for 4 days PREDNISONE 33602676981 No Longer Active Mary Shah APRN Active LEVAQUIN 500 MG TAB 1 tablet by mouth daily for 7 days LEVOFLOXACIN 68100691663 Active Mary Shah APRN Active AZITHROMYCIN 250 MG TABS 2 po qd x 1 day, then 1 po qd x 4 days AZITHROMYCIN 93981029722 No Longer Active Danuta Modi Active AZITHROMYCIN 250 MG TABS 2 po qd x 1 day, then 1 po qd x 4 days AZITHROMYCIN 31235926535 No Longer Active Tangela Forte Active HYDROCODONE-ACETAMINOPHEN 5-325 MG TABS 1 tab by mouth every 6 hours as needed for bck pain HYDROCODONE-ACETAMINOPHEN 42473829945 No Longer Active Gareth Cancino MD Active ALPRAZOLAM 0.25 MG TAB 1 tablet by mouth q hs prn ALPRAZOLAM 65148101485 Active Gareth Cancino MD Active AZITHROMYCIN 250 MG ORAL TABS 1 tab daily AZITHROMYCIN 23409711470 No Longer Active Gareth Cancino MD Active ZITHROMAX 250 MG TAB 2 po today, then 1 po q days 2-5 AZITHROMYCIN 72982174933 No Longer Active Tangela Forte Active IPRATROPIUM-ALBUTEROL 0.5-2.5 (3) MG/3ML INH SOLN nebulize 1 vial every 6hrs prn shortness of breath IPRATROPIUM-ALBUTEROL 21570152681 Active Gareth Cancino MD Active FENTANYL 25 MCG/HR PT72 Apply to clean, dry skin and change every 72 hours FENTANYL 22359508800 No Longer Active Gareth Cancino MD Active WELLBUTRIN SR 150 MG ORAL [id number] take 1 tab po BID BUPROPION HCL 16780305412 No Longer Active Gareth Cancino MD Active ZOFRAN 4 MG ORAL TABS 1 by mouth every 6 hours prn nausea ONDANSETRON HCL 36854025416 Active Tangela oFrte Active TRAMADOL HCL 50 MG TABS 1 po tid PRN TRAMADOL HCL 17739295451 Active Gareth Cancino MD Active ALPRAZOLAM 0.25 MG TAB 1/2 to 1 tablet by mouth qhs prn ALPRAZOLAM 83118936994 No Longer Active Gareth Cancino MD Active CLOBETASOL PROPIONATE 0.05 % CREA apply to hand rash bid CLOBETASOL PROPIONATE 19018657483 No Longer Active Gareth Cancino MD Active BACTROBAN 2 % CREAM Apply to affected area BID MUPIROCIN CALCIUM 60383524271 No Longer Active Gareth Cancino MD Active LISINOPRIL 20 MG TABS 1 tablet by mouth daily for high blood pressure 10/14 LISINOPRIL 42475626460 Active Gareth Cancino MD Active BACTRIM DS 800-160 MG TAB 1 tab by mouth twice daily TRIMETHOPRIM-SULFAMETHOXAZOLE 31590736236 No Longer Active Gareth Cancino MD Active METOPROLOL SUCCINATE ER 100 MG [id number] 1 pill by mouth daily, for blood pressure METOPROLOL SUCCINATE 90166048228 Active Gareth Cancino MD Active KEFLEX 500 MG CAP 1 po TID x 10 days CEPHALEXIN 10750017865 No Longer Active Blanca Castillo APRN Active METOPROLOL SUCCINATE 50 MG TB24 1 tablet by mouth daily METOPROLOL SUCCINATE 92577361531 No Longer Active Gareth Cancino MD Active OMEPRAZOLE 20 MG TBEC Take one by mouth daily OMEPRAZOLE 24865347677 No Longer Active Gareth Cancino MD Active OMEPRAZOLE 40 MG CPDR 1 tab po qday for acid reflux. OMEPRAZOLE 50589612818 Active Mary Shah APRN Active LEVAQUIN 500 MG TAB 1 tablet by mouth daily LEVOFLOXACIN 49612481772 No Longer Active Gareth Cancino MD Active ALEVE 220 MG TAB 2 tab po qd NAPROXEN SODIUM 28336928079 Active Gareth Cancino MD Active ASPIRIN 81 MG CHEW TAB 1 tablet by mouth daily ASPIRIN 76605953882 Active Gareth Cancino MD Active VENTOLIN HFA 108 (90 BASE) MCG/ACT AERS 1-2 puffs four times a day PRN shortness of breath ALBUTEROL SULFATE 27445990749 Active Mary Shah APRN Active CENTRUM SILVER TABS 1 TAB PO DAILY MULTIPLE VITAMINS-MINERALS 34975561166 Active Gareth Cancino MD Active VITAMIN B12 100 MCG TABS 1 TAB PO DAILY CYANOCOBALAMIN 33511823390 Active Gareth Cancino MD Active CIPRO 500 MG TABS 1 TAB PO BID CIPROFLOXACIN HCL 70220035172 No Longer Active Gareth Cancino MD Active BACTRIM DS 800-160 MG TAB 1 tab by mouth twice daily TRIMETHOPRIM-SULFAMETHOXAZOLE 90946578635 No Longer Active Gareth Cancino MD Active PREDNISONE 20 MG TAB 1 tab po BID for 3 days, then 1 tab po qday for 3 days PREDNISONE 20188451697 No Longer Active Gareth Cancino MD Active FOLIC ACID 800 MCG TABS Take one by mouth daily FOLIC ACID 46167597576 No Longer Active Gareth Cancino MD Active VITAMIN B-6 250 MG TABS Take one by mouth daily PYRIDOXINE HCL 27991883306 No Longer Active Gareth Cancino MD Active B-12 1000 MCG CAPS Take one by mouth daily CYANOCOBALAMIN 53126250499 No Longer Active Gareth Cancino MD Active DOXYCYCLINE HYCLATE 100 MG CAP 1 cap by mouth twice daily DOXYCYCLINE HYCLATE 94006763063 No Longer Active Gareth Cancino MD Active PREDNISONE 20 MG TAB 1 po bid 3 days, then 1 po q day 3 days 2011 PREDNISONE 83975358157 No Longer Active Gareth Cancino MD Active CHANTIX STARTING MONTH RUBEN 0.5 MG X 11 & 1 MG X 42 TABS 0.5mg daily for 3 days , then 0.5mg BID for 4 days, then 1mg BID VARENICLINE TARTRATE 35457494733 No Longer Active Gareth Cancino MD Active SIMVASTATIN 40 MG TABS Take one by mouth daily SIMVASTATIN 16446069474 Active Gareth Cancino MD Active TRIAMTERENE-HCTZ 37.5-25 MG CAPS Take one by mouth daily TRIAMTERENE- HCTZ 24965971556 Active Mary Shah APRN Active CHANTIX STARTING [...] 3 days 2011 PREDNISONE 20 MG TAB 111871 PREDNISONE Inactive DOXYCYCLINE HYCLATE 100 MG CAP 1 cap by mouth twice daily DOXYCYCLINE HYCLATE 100 MG CAP 8008748 DOXYCYCLINE HYCLATE Inactive B-12 1000 MCG CAPS Take one by mouth daily B-12 1000 MCG CAPS CYANOCOBALAMIN Inactive VITAMIN B-6 250 MG TABS Take one by mouth daily VITAMIN B-6 250 MG TABS PYRIDOXINE HCL Inactive FOLIC ACID 800 MCG TABS Take one by mouth daily FOLIC ACID 800 MCG TABS 479526 FOLIC ACID Inactive CIPRO 500 MG TABS 1 TAB PO BID CIPRO 500 MG TABS 232694 CIPROFLOXACIN HCL Inactive OMEPRAZOLE 20 MG TBEC Take one by mouth daily OMEPRAZOLE 20 MG TBEC 832716 OMEPRAZOLE Inactive METOPROLOL SUCCINATE 50 MG TB24 1 tablet by mouth daily METOPROLOL SUCCINATE 50 MG TB24 METOPROLOL SUCCINATE Inactive BACTROBAN 2 % CREAM Apply to affected area BID BACTROBAN 2 % CREAM 838915 MUPIROCIN CALCIUM Inactive CLOBETASOL PROPIONATE 0.05 % CREA apply to hand rash bid CLOBETASOL PROPIONATE 0.05 % CREA 797122 CLOBETASOL PROPIONATE Inactive ALPRAZOLAM 0.25 MG TAB 1/2 to 1 tablet by mouth qhs prn ALPRAZOLAM 0.25 MG TAB 280578 ALPRAZOLAM Inactive WELLBUTRIN SR 150 MG ORAL [id number] take 1 tab po BID WELLBUTRIN SR 150 MG ORAL [id number] BUPROPION HCL Inactive AZITHROMYCIN 250 MG ORAL TABS 1 tab daily AZITHROMYCIN 250 MG ORAL TABS 6934606 AZITHROMYCIN Inactive HYDROCODONE-ACETAMINOPHEN 5-325 MG TABS 1 tab by mouth every 6 hours as needed for bck pain HYDROCODONE-ACETAMINOPHEN 5-325 MG TABS 127461 HYDROCODONE-ACETAMINOPHEN Inactive PREDNISONE 20 MG TAB 1 tab po BID for 3 days, then 1 tab po qday for 3 days PREDNISONE 20 MG TAB 672768 PREDNISONE Inactive BACTRIM DS 800-160 MG TAB 1 tab by mouth twice daily BACTRIM DS 800-160 MG TAB 044787 TRIMETHOPRIM-SULFAMETHOXAZOLE Inactive LEVAQUIN 500 MG TAB 1 tablet by mouth daily LEVAQUIN 500 MG TAB 862634 LEVOFLOXACIN Inactive KEFLEX 500 MG CAP 1 po TID x 10 days KEFLEX 500 MG CAP 940555 CEPHALEXIN Inactive BACTRIM DS 800-160 MG TAB 1 tab by mouth twice daily BACTRIM DS 800-160 MG TAB 200501 TRIMETHOPRIM-SULFAMETHOXAZOLE Inactive FENTANYL 25 MCG/HR PT72 Apply to clean, dry skin and change every 72 hours FENTANYL 25 MCG/HR PT72 335884 FENTANYL Inactive ZITHROMAX 250 MG TAB 2 po today, then 1 po q days 2-5 ZITHROMAX 250 MG TAB 4192344 AZITHROMYCIN Inactive AZITHROMYCIN 250 MG TABS 2 po qd x 1 day, then 1 po qd x 4 days AZITHROMYCIN 250 MG TABS 5772224 AZITHROMYCIN Inactive AZITHROMYCIN 250 MG TABS 2 po qd x 1 day, then 1 po qd x 4 days AZITHROMYCIN 250 MG TABS 1713660 AZITHROMYCIN Inactive PREDNISONE 20 MG TAB take 3 tabs daily for 3 days, 2 tabs daily for 3 days, 1 tab daily for 3 days, 1/2 tab daily for 4 days PREDNISONE 20 MG TAB 918291 PREDNISONE Inactive ZITHROMAX Z-RUBEN 250 MG TABS 2 today, then 1 daily for 4 days 2016 ZITHROMAX Z-RUBEN 250 MG TABS 8478843 AZITHROMYCIN Inactive Vital Signs Date Name Value Unit Range Description blood pressure, diastolic 67 mm[Hg] BP mcmahon blood pressure, systolic 137 mm[Hg] BP sys height E&M 63 [in_us] Bdy height pulse rate E&M 71 /min Heart rate temperature E&M 98.6 [degF] Body temperature weight E&M 140.5 [lb_av] Weight Measured blood pressure, diastolic 81 mm[Hg] BP mcmahon blood pressure, systolic 148 mm[Hg] BP sys pulse rate E&M 81 /min Heart rate temperature E&M 98.6 [degF] Body temperature weight E&M 147 [lb_av] Weight Measured blood pressure, diastolic 79 mm[Hg] BP mcmahon blood pressure, systolic 146 mm[Hg] BP sys pulse rate E&M 74 /min Heart rate temperature E&M 98.8 [degF] Body temperature weight E&M 152 [lb_av] Weight Measured blood pressure, diastolic 68 mm[Hg] BP mcmahon blood pressure, systolic 136 mm[Hg] BP sys pulse rate E&M 73 /min Heart rate temperature E&M 98.1 [degF] Body temperature weight E&M 152.5 [lb_av] Weight Measured blood pressure, diastolic 69 mm[Hg] BP mcmahon blood pressure, systolic 155 mm[Hg] BP sys pulse rate E&M 68 /min Heart rate temperature E&M 95.1 [degF] Body temperature weight E&M 154.70 [lb_av] Weight Measured blood pressure, diastolic 88 mm[Hg] BP mcmahon blood pressure, systolic 150 mm[Hg] BP sys pulse rate E&M 70 /min Heart rate temperature E&M 98.2 [degF] Body temperature weight E&M 156 [lb_av] Weight Measured Diagnostic Results Date Name Value Unit Range Description Lab Report: Basic Metabolic Panel - Chemistry sodium, serum 133 mmol/L 696-207 6292/08/24 potassium, serum 4.4 mmol/L 3.5-5.2 chloride, serum 95 mmol/L 98-107 carbon dioxide, venous blood 33.0 mmol/L 21.0-32.0 blood glucose 107 mg/dL 65-110 calcium, serum 8.8 mg/dL 8.5-10.1 urea nitrogen, blood 12 mg/dL 7-18 creatinine, serum 0.69 mg/dL 0.55-1.30 Lab Report: CBC, Basic Metabolic Panel - Chemistry sodium, serum 132 mmol/L 660-124 0191/10/12 potassium, serum 4.7 mmol/L 3.5-5.2 chloride, serum [...] CBC - Chemistry sodium, serum 136 mmol/L 545-656 8917/11/01 carbon dioxide, venous blood 32.1 mmol/L 21.0-32.0 [...] PANEL - Chemistry cholesterol, serum 169 mg/dL 624-092 4954/05/09 HDL cholesterol, serum 54 mg/dL > OR=46 triglyceride, serum, fasting 79 mg/dL <150 LDL cholesterol, serum 99 MG/DL (CALC) mg/dL <130 cholesterol/HDL ratio, serum 3.1 (calc) < OR=5.0 Lab Report: MICROALB/CREAT W/RATIO - Chemistry albumin/creatinine ratio, urine <30 mg/g Normal mg/g mg/g{creat} 0-29 Lab Report: MICROALB/CREAT W/RATIO - Lab microalbumin, urine 10 mg/L 0-19 Lab Report: UADIP W/MICRO, AUTO - [...] 1.010 1.000-1.030 pH, urine, semiquantitative 7.5 5.0-8.5 Office Visit: labs and checkup - Basic LDL target level 130 mg/dL Office Visit: labs and checkup - Chemistry HDL cholesterol, serum, target level 40 mg/dL triglyceride, target level 150 mg/dL cholesterol, target level 200 mg/dL Encounters Code Encounter Date Provider Facility CPT-52036 Level 4 Est. Patient 07:23:02 CDT Gareth Cancino MD [facility] CPT-18544 Level 3 Est. Patient 09:05:25 LEASING AGENT Mary Shah APRN [facility] CPT-62956 Level 3 Est. Patient 20:53:25 LEASING AGENT Gareth Cancino MD [facility] CPT-80588 Level 3 Est. Patient 10:34:55 CDT Gareth Cancino MD [facility] CPT-73474 Level 4 Est. Patient 09:00:18 CDT Gareth Cancino MD [facility] CPT-70665 Level 3 Est. Patient 15:12:03 CDT Gareth Cancino MD [facility] CPT-20504 Level 3 Est. Patient 23:08:20 CDT Gareth Cancino MD [facility] CPT-42589 Level 4 Est. Patient 20:40:10 CDT Gareth Cancino MD [facility] CPT-60876 Level 4 Est. Patient 19:50:11 CDT Gareth Cancino MD [facility] CPT-99473 Level 3 Est. Patient 11:00:13 CDT Gareth Cancino MD [facility]-73629 Level 4 Est. Patient 11:20:21 CDT Gareth Cancino MD [facility]-83812 Level 4 Est. Patient 09:22:18 LEASING AGENT Gareth Cancino MD [facility] CPT-47820 Level 3 Est. Patient 09:48:04 CDT Gareth Cancino MD [facility] CPT-01014 Level 3 Est. Patient 10:13:16 CDT Gareth Cancino MD [facility] CPT-78857 Level 2 Est. Patient 18:36:56 CDT Gareth Cancino MD [facility] CPT-30546 Level 4 Est. Patient 13:50:53 CDT Gareth Cancino MD [facility] CPT-88723 Level 3 Est. Patient 14:58:33 LEASING AGENT Gareth Cancino MD [facility] CPT-34332 Level 4 Est. Patient 09:25:57 CDT Gareth Cancino MD [facility] CPT-49561 Level 3 Est. Patient 20:39:33 CDT Noman Edwards DO [facility] CPT-45803 Level 2 Est. Patient 13:17:39 CDT Gareth Cancino MD [facility] CPT-19907 Level 3 Est. Patient 13:37:20 CDT Gareth Cancino MD [facility] CPT-83409 Level 3 Est. Patient 18:09:08 CDT Gareth Cancino MD [facility] CPT-66824 Level 4 Est. Patient 09:59:07 CDT Gareth Cancino MD [facility] Procedures Code Procedure Name Date Entry Date Standard Description CPT-000 Give Appropriate Flu Vaccine 09:29:52 LEASING AGENT CPT-000 Give Appropriate Flu Vaccine 09:22:20 LEASING AGENT CPT-43216 TSH - LAB USE ONLY 08:11:40 LEASING AGENT CPT-91309 Free T4 - LAB USE ONLY 08:11:40 LEASING AGENT CPT-34605 Venipuncture Draw Fee 08:11:40 LEASING AGENT CPT-26682 UA w micro - LAB USE ONLY 14:26:22 LEASING AGENT CPT-G0438 Initial Annual Wellness Exam 20:53:25 LEASING AGENT CPT-G0009 Administration of Pneumococcal Vaccine 11:42:53 LEASING AGENT CPT-97485 Prevnar 13 Intramuscular Suspension 11:42:53 LEASING AGENT 01/07 CPT-64817 First Vx - Ix admin for Medicare patients 11:39:44 LEASING AGENT CPT-66374 Fluzone High-Dose Intramuscular Suspension 11:39:44 LEASING AGENT CPT-20115 Prevnar 13 Intramuscular Suspension 09:29:52 LEASING AGENT 01/07 CPT-56450 CMP - LAB USE ONLY 16:31:15 CDT CPT-26958 CBC - LAB USE ONLY 16:31:14 CDT CPT-82324 Venipuncture Draw Fee 16:31:14 CDT CPT-47882 BMP - LAB USE ONLY 14:37:27 CDT CPT-53846 CBC - LAB USE ONLY 14:37:27 CDT CPT-43572 Venipuncture Draw Fee 14:37:27 CDT CPT-TCMM Transitional Care Mgmt-Moderate 14:43:38 CDT CPT-31207 Venipuncture Draw Fee 10:33:47 CDT CPT-65576 BMP - LAB USE ONLY 10:33:46 CDT CPT-Cryo Cryotherapy 15:12:03 CDT CPT-58747 LS spine AP and Lat - XRAY USE ONLY 10:31:51 CDT 07/27 CPT-52059 Punch biopsy 1 lsn 20:40:09 CDT CPT-G0008 Administration of Influenza Virus Vaccine 10:04:48 LEASING AGENT CPT-55542 Fluzone High-Dose Intramuscular Suspension 10:04:48 LEASING AGENT CPT-78119 Ribs unilat w PA chst min 3V 10:45:40 CDT CPT-LR Lesion Removal 13:14:55 CDT CPT-Cryo Cryotherapy 13:14:55 CDT CPT-08827 Venipuncture Draw Fee 10:25:49 CDT CPT-16277 Administration single or combination vaccine inc oral 13 :22:14 LEASING AGENT CPT-60502 Influenza High Dose age 65+ 13:22:14 LEASING AGENT
--- OUTSIDE RECORDS SUMMARY | 2016-12-06 08:01 | XMS REPORT | Clinical Summary ---
Author Author Admin, HILARIA Organization [facility] Address Unknown Phone Unavailable Allergies, Adverse Reactions, [...] apply to hand rash bid CLOBETASOL PROPIONATE 87325651760 Active Gareth Cancino MD Active WELLBUTRIN SR 150 MG ORAL [id number] take 1 tab po BID BUPROPION HCL 09490633030 Active Gareth Cancino MD Active METOPROLOL SUCCINATE 50 MG TB24 1 tablet by mouth daily METOPROLOL SUCCINATE 76050136810 No Longer Active Gareth Cancino MD Active METOPROLOL SUCCINATE ER 100 MG [id number] 1 pill by mouth daily, for blood pressure METOPROLOL SUCCINATE 80948587724 Active Gareth Cancino MD Active OMEPRAZOLE 20 MG TBEC Take one by mouth daily OMEPRAZOLE 27480349201 No Longer Active Gareth Cancino MD Active OMEPRAZOLE 40 MG CPDR 1 tab po qday for acid reflux. OMEPRAZOLE 80336877519 Active Gareth Cancino MD Active LEVAQUIN 500 MG TAB 1 tablet by mouth daily LEVOFLOXACIN 90785668614 No Longer Active Gareth Cancino MD Active ALEVE 220 MG TAB 2 tab po qd NAPROXEN SODIUM 73999561783 Active Gareth Cancino MD Active ASPIRIN 81 MG CHEW TAB 1 tablet by mouth daily ASPIRIN 23914638985 Active Gareth Cancino MD Active VENTOLIN HFA 108 (90 BASE) MCG/ACT AERS 1-2 puffs four times a day PRN shortness of breath ALBUTEROL SULFATE 49719060466 Active Fuad Franks MD Active CENTRUM SILVER TABS 1 TAB PO DAILY MULTIPLE VITAMINS-MINERALS 86968893284 Active Gareth Cancino MD Active VITAMIN B12 100 MCG TABS 1 TAB PO DAILY CYANOCOBALAMIN 73207983325 Active Gareth Cancino MD Active CIPRO 500 MG TABS 1 TAB PO BID CIPROFLOXACIN HCL 71925044209 No Longer Active Gareth Cancino MD Active BACTRIM DS 800-160 MG TAB 1 tab by mouth twice daily TRIMETHOPRIM-SULFAMETHOXAZOLE 21628059151 No Longer Active Gareth Cancino MD Active PREDNISONE 20 MG TAB 1 tab po BID for 3 days, then 1 tab po qday for 3 days PREDNISONE 05589715641 No Longer Active Gareth Cancino MD Active FOLIC ACID 800 MCG TABS Take one by mouth daily FOLIC ACID 24883178482 No Longer Active Gareth Cancino MD Active VITAMIN B-6 250 MG TABS Take one by mouth daily PYRIDOXINE HCL 72177077591 No Longer Active Gareth Cancino MD Active B-12 1000 MCG CAPS Take one by mouth daily CYANOCOBALAMIN 69171155860 No Longer Active Gareth Cancino MD Active DOXYCYCLINE HYCLATE 100 MG CAP 1 cap by mouth twice daily DOXYCYCLINE HYCLATE 99565103484 No Longer Active Gareth Cancino MD Active PREDNISONE 20 MG TAB 1 po bid 3 days, then 1 po q day 3 days 2011 PREDNISONE 81621923839 No Longer Active Gareth Cancino MD Active CHANTIX STARTING MONTH RUBEN 0.5 MG X 11 & 1 MG X 42 TABS 0.5mg daily for 3 days , then 0.5mg BID for 4 days, then 1mg BID VARENICLINE TARTRATE 77228544088 No Longer Active Gareth Cancino MD Active ALPRAZOLAM 0.25 MG TAB 1/2 to 1 tablet by mouth qhs prn ALPRAZOLAM 43263178820 Active Gareth Cancino MD Active SIMVASTATIN 40 MG TABS Take one by mouth daily SIMVASTATIN 99476917462 Active Gareth Cancino MD Active TRIAMTERENE-HCTZ 37.5-25 MG CAPS Take one by mouth daily TRIAMTERENE- HCTZ 76461911940 Active Gareth Cancino MD Active CHANTIX STARTING [...] 3 days 2011 PREDNISONE 20 MG TAB 235675 PREDNISONE Inactive DOXYCYCLINE HYCLATE 100 MG CAP 1 cap by mouth twice daily DOXYCYCLINE HYCLATE 100 MG CAP 3049079 DOXYCYCLINE HYCLATE Inactive B-12 1000 MCG CAPS Take one by mouth daily B-12 1000 MCG CAPS CYANOCOBALAMIN Inactive VITAMIN B-6 250 MG TABS Take one by mouth daily VITAMIN B-6 250 MG TABS PYRIDOXINE HCL Inactive FOLIC ACID 800 MCG TABS Take one by mouth daily FOLIC ACID 800 MCG TABS 078945 FOLIC ACID Inactive CIPRO 500 MG TABS 1 TAB PO BID CIPRO 500 MG TABS 341570 CIPROFLOXACIN HCL Inactive OMEPRAZOLE 20 MG TBEC Take one by mouth daily OMEPRAZOLE 20 MG TBEC 077312 OMEPRAZOLE Inactive METOPROLOL SUCCINATE 50 MG TB24 1 tablet by mouth daily METOPROLOL SUCCINATE 50 MG TB24 METOPROLOL SUCCINATE Inactive PREDNISONE 20 MG TAB 1 tab po BID for 3 days, then 1 tab po qday for 3 days PREDNISONE 20 MG TAB 346979 PREDNISONE Inactive BACTRIM DS 800-160 MG TAB 1 tab by mouth twice daily BACTRIM DS 800-160 MG TAB TRIMETHOPRIM-SULFAMETHOXAZOLE Inactive LEVAQUIN 500 MG TAB 1 tablet by mouth daily LEVAQUIN 500 MG TAB 701717 LEVOFLOXACIN Inactive Vital Signs Date Name Value [...] MICROALBUMIN - Chemistry sodium, serum 138 mmol/L 010-546 9140/09/10 potassium, serum 4.2 mmol/L 3.5-5.2 chloride, serum [...] 0.20 mg/dL 0.00-1.00 cholesterol, serum 153 mg/dL 404-300 8480/09/10 triglyceride, serum, fasting 69 mg/dL 30-200 HDL cholesterol, serum 34 mg/dL 32-96 LDL cholesterol, serum 105 mg/dL 0-130 albumin/creatinine ratio, urine < 30 mg/g mg/g{creat} 0-29 Lab Report: CBC, Comp. Metabolic Panel, Lipid Panel, MICROALBUMIN - Hematology leukocyte count, blood 5.2 10^3/MM^3 10*3/mm3 4.6-10.2 erythrocyte (RBC) count 4.44 10^6/MM^3 10*6/mm3 4.04-5.48 hemoglobin, blood 14.9 g/dL 12.0-16.0 hematocrit, blood 42.7 % 36.0-46.0 mean corpuscular volume, RBC 96 fL 80-97 mean corpuscular hemoglobin, RBC 33.6 pg 27.0-31.2 mean corpuscular hemoglobin concentration, RBC 34.9 G/DL % 31.8- 35.4 red blood cell distribution width 13.6 % 11.6-14.8 platelet count 296 10^3/MM^3 10*3/mm3 142-424 Lab Report: CBC, Comp. Metabolic Panel, Lipid Panel, MICROALBUMIN - Lab microalbumin, urine 30 0-19 Lab Report: UADIP W/MICRO, AUTO - Chemistry RBC, urine, dipstick Negative Negative protein, total urine random Negative mg/dL Negative protein, total urine random Negative mg/dL Negative RBC, urine, dipstick Negative Negative Lab Report: UADIP W/MICRO, AUTO - Urinalysis urobilinogen, urine, semiquantitative (dipstick) 0.2 Normal leukocyte esterase, urine, by dipstick Negative Negative nitrite, urine, semiquantitative Negative Negative glucose, urine, semiquantitative Negative Negative ketones, urine, by test strip Negative Negative bilirubin, urine Negative Negative glucose, urine, semiquantitative Negative Negative ketones, urine, by test strip Trace Negative bilirubin, urine 1+ Negative urobilinogen, urine, semiquantitative (dipstick) 0.2 Normal leukocyte esterase, urine, by dipstick Negative Negative nitrite, urine, semiquantitative Negative Negative urine color Yellow Colorless;Lightyellow;Straw;Yellow appearance, urine Clear Clear specific gravity, urine 1.010 1.000-1.030 pH, urine, semiquantitative 7.5 5.0-8.5 urine color Yellow Colorless;Lightyellow;Straw;Yellow appearance, urine Clear Clear specific gravity, urine 1.020 1.000-1.030 pH, urine, semiquantitative 6.5 5.0-8.5 Office Visit: NAUSEA, UPPER ABD. DISCOMFORT - Chemistry cholesterol, target level 200 mg/dL LDL target level 100 mg/dL HDL cholesterol, serum, target level 40 mg/dL triglyceride, target level 150 mg/dL Encounters Code Encounter Date Provider Facility CPT-56597 Level 4 Est. Patient 11:20:21 CDT Gareth Cancino MD [facility] CPT-34100 Level 4 Est. Patient 09:22:18 PARTITION ASSEMBLER Gareth Cancino MD [facility] CPT-52026 Level 3 Est. Patient 09:48:04 CDT Gareth Cancino MD [facility] CPT-19329 Level 3 Est. Patient 10:13:16 CDT Gareth Cancino MD [facility] CPT-03225 Level 2 Est. Patient 18:36:56 CDT Gareth Cancino MD [facility] CPT-85419 Level 4 Est. Patient 13:50:53 CDT Gareth Cancino MD [facility] CPT-90987 Level 3 Est. Patient 14:58:33 PARTITION ASSEMBLER Gareth Cancino MD [facility] CPT-50691 Level 4 Est. Patient 09:25:57 CDT Gareth Cancino MD [facility] CPT-00184 Level 3 Est. Patient 20:39:33 CDT Noman Edwards DO [facility] CPT-14638 Level 2 Est. Patient 13:17:39 CDT Gareth Cancino MD [facility] CPT-50098 Level 3 Est. Patient 13:37:20 CDT Gareth Cancino MD [facility] CPT-00418 Level 3 Est. Patient 18:09:08 CDT Gareth Cancino MD [facility] CPT-75034 Level 4 Est. Patient 09:59:07 CDT Gareth Cancino MD [facility] Procedures Code Procedure Name Date Entry Date Standard Description CPT-G0008 Administration of Influenza Virus Vaccine 10:04:48 PARTITION ASSEMBLER CPT-81753 Fluzone High-Dose Intramuscular Suspension 10:04:48 PARTITION ASSEMBLER CPT-55401 Ribs unilat w PA chst min 3V 10:45:40 CDT CPT-LR Lesion Removal 13:14:55 CDT CPT-Cryo Cryotherapy 13:14:55 CDT CPT-70100 Venipuncture Draw Fee 10:25:49 CDT CPT-82022 Administration single or combination vaccine inc oral 13 :22:14 PARTITION ASSEMBLER CPT-80785 Influenza High Dose age 65+ 13:22:14 PARTITION ASSEMBLER
--- OUTSIDE RECORDS SUMMARY | 2016-12-06 08:02 | XMS REPORT | Clinical Summary ---
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 Urinary frequency Actinic keratosis 702.0 Active Gareth [...] medical examination at a health care facility Bronchitis-Acute ICD-466.0 Inactive Gareth Cancino MD Medication List Medication Instructions Start Date Stop Date Generic Name NDC Status Provider Patient Instruction HYDROCODONE-ACETAMINOPHEN 5-325 MG TABS 1 tab by mouth every 6 hours as needed for bck pain HYDROCODONE-ACETAMINOPHEN 78991562752 No Longer Active Gareth Cancino MD Active FENTANYL 12 MCG/HR PT72 Apply to clean, dry skin and change every 72 hours FENTANYL 17465677341 Active Gareth Cancino MD Active ALPRAZOLAM 0.25 MG TAB 1 tablet by mouth q hs prn ALPRAZOLAM 62203438743 Active Gareth Cancino MD Active AZITHROMYCIN 250 MG ORAL TABS 1 tab daily AZITHROMYCIN 79336762231 No Longer Active Gareth Cancino MD Active ZITHROMAX 250 MG TAB 2 po today, then 1 po q days 2-5 AZITHROMYCIN 60063934469 No Longer Active Tangela Forte Active IPRATROPIUM-ALBUTEROL 0.5-2.5 (3) MG/3ML INH SOLN nebulize 1 vial every 6hrs prn shortness of breath IPRATROPIUM-ALBUTEROL 93735035981 Active Gareth Cancino MD Active FENTANYL 25 MCG/HR PT72 Apply to clean, dry skin and change every 72 hours FENTANYL 87039716213 No Longer Active Gareth Cancino MD Active WELLBUTRIN SR 150 MG ORAL [id number] take 1 tab po BID BUPROPION HCL 36192815381 No Longer Active Gareth Cancino MD Active ZOFRAN 4 MG ORAL TABS 1 by mouth every 6 hours prn nausea ONDANSETRON HCL 21888763965 Active Tangela Forte Active TRAMADOL HCL 50 MG TABS 1 po tid PRN TRAMADOL HCL 51451416794 Active Gareth Cancino MD Active ALPRAZOLAM 0.25 MG TAB 1/2 to 1 tablet by mouth qhs prn ALPRAZOLAM 04102000588 No Longer Active Gareth Cancino MD Active CLOBETASOL PROPIONATE 0.05 % CREA apply to hand rash bid CLOBETASOL PROPIONATE 67568163563 No Longer Active Gareth Cancino MD Active BACTROBAN 2 % CREAM Apply to affected area BID MUPIROCIN CALCIUM 44961370882 No Longer Active Gareth Cancino MD Active LISINOPRIL 20 MG TABS 1 tablet by mouth daily for high blood pressure 10/14 LISINOPRIL 29118430016 Active Gareth Cancino MD Active BACTRIM DS 800-160 MG TAB 1 tab by mouth twice daily TRIMETHOPRIM-SULFAMETHOXAZOLE 99702448511 No Longer Active Gareth Cancino MD Active METOPROLOL SUCCINATE ER 100 MG [id number] 1 pill by mouth daily, for blood pressure METOPROLOL SUCCINATE 87104425178 Active Gareth Cancino MD Active KEFLEX 500 MG CAP 1 po TID x 10 days CEPHALEXIN 14977662281 No Longer Active Blanca Castillo APRN Active METOPROLOL SUCCINATE 50 MG TB24 1 tablet by mouth daily METOPROLOL SUCCINATE 25213101916 No Longer Active Gareth Cancino MD Active OMEPRAZOLE 20 MG TBEC Take one by mouth daily OMEPRAZOLE 71505719512 No Longer Active Gareth Cancino MD Active OMEPRAZOLE 40 MG CPDR 1 tab po qday for acid reflux. OMEPRAZOLE 09884765911 Active Mary Shah APRN Active LEVAQUIN 500 MG TAB 1 tablet by mouth daily LEVOFLOXACIN 31700795803 No Longer Active Gareth Cancino MD Active ALEVE 220 MG TAB 2 tab po qd NAPROXEN SODIUM 40944449196 Active Gareth Cancino MD Active ASPIRIN 81 MG CHEW TAB 1 tablet by mouth daily ASPIRIN 66459842525 Active Gareth Cancino MD Active VENTOLIN HFA 108 (90 BASE) MCG/ACT AERS 1-2 puffs four times a day PRN shortness of breath ALBUTEROL SULFATE 74996818436 Active Mary Shah APRN Active CENTRUM SILVER TABS 1 TAB PO DAILY MULTIPLE VITAMINS-MINERALS 86326479843 Active Gareth Cancino MD Active VITAMIN B12 100 MCG TABS 1 TAB PO DAILY CYANOCOBALAMIN 33132258239 Active Gareth Cancino MD Active CIPRO 500 MG TABS 1 TAB PO BID CIPROFLOXACIN HCL 01803086919 No Longer Active Gareth Cancino MD Active BACTRIM DS 800-160 MG TAB 1 tab by mouth twice daily TRIMETHOPRIM-SULFAMETHOXAZOLE 47331936342 No Longer Active Gareth Cancino MD Active PREDNISONE 20 MG TAB 1 tab po BID for 3 days, then 1 tab po qday for 3 days PREDNISONE 94363976247 No Longer Active Gareth Cancino MD Active FOLIC ACID 800 MCG TABS Take one by mouth daily FOLIC ACID 77048359725 No Longer Active Gareth Cancino MD Active VITAMIN B-6 250 MG TABS Take one by mouth daily PYRIDOXINE HCL 00742179614 No Longer Active Gareth Cancino MD Active B-12 1000 MCG CAPS Take one by mouth daily CYANOCOBALAMIN 44044447322 No Longer Active Gareth Cancino MD Active DOXYCYCLINE HYCLATE 100 MG CAP 1 cap by mouth twice daily DOXYCYCLINE HYCLATE 62840264023 No Longer Active Gareth Cancino MD Active PREDNISONE 20 MG TAB 1 po bid 3 days, then 1 po q day 3 days 2011 PREDNISONE 86980298125 No Longer Active Gareth Cancino MD Active CHANTIX STARTING MONTH RUBEN 0.5 MG X 11 & 1 MG X 42 TABS 0.5mg daily for 3 days , then 0.5mg BID for 4 days, then 1mg BID VARENICLINE TARTRATE 27089815761 No Longer Active Gareth Cancino MD Active SIMVASTATIN 40 MG TABS Take one by mouth daily SIMVASTATIN 13677965231 Active Gareth Cancino MD Active TRIAMTERENE-HCTZ 37.5-25 MG CAPS Take one by mouth daily TRIAMTERENE- HCTZ 62476218704 Active Gareth Cancino MD Active CHANTIX STARTING [...] 3 days 2011 PREDNISONE 20 MG TAB 635821 PREDNISONE Inactive DOXYCYCLINE HYCLATE 100 MG CAP 1 cap by mouth twice daily DOXYCYCLINE HYCLATE 100 MG CAP 7085501 DOXYCYCLINE HYCLATE Inactive B-12 1000 MCG CAPS Take one by mouth daily B-12 1000 MCG CAPS CYANOCOBALAMIN Inactive VITAMIN B-6 250 MG TABS Take one by mouth daily VITAMIN B-6 250 MG TABS PYRIDOXINE HCL Inactive FOLIC ACID 800 MCG TABS Take one by mouth daily FOLIC ACID 800 MCG TABS 729812 FOLIC ACID Inactive CIPRO 500 MG TABS 1 TAB PO BID CIPRO 500 MG TABS 123426 CIPROFLOXACIN HCL Inactive OMEPRAZOLE 20 MG TBEC Take one by mouth daily OMEPRAZOLE 20 MG TBEC 653946 OMEPRAZOLE Inactive METOPROLOL SUCCINATE 50 MG TB24 1 tablet by mouth daily METOPROLOL SUCCINATE 50 MG TB24 METOPROLOL SUCCINATE Inactive BACTROBAN 2 % CREAM Apply to affected area BID BACTROBAN 2 % CREAM 959150 MUPIROCIN CALCIUM Inactive CLOBETASOL PROPIONATE 0.05 % CREA apply to hand rash bid CLOBETASOL PROPIONATE 0.05 % CREA 726677 CLOBETASOL PROPIONATE Inactive ALPRAZOLAM 0.25 MG TAB 1/2 to 1 tablet by mouth qhs prn ALPRAZOLAM 0.25 MG TAB 879617 ALPRAZOLAM Inactive WELLBUTRIN SR 150 MG ORAL [id number]-[id number] take 1 tab po BID WELLBUTRIN SR 150 MG ORAL [id number] BUPROPION HCL Inactive AZITHROMYCIN 250 MG ORAL TABS 1 tab daily AZITHROMYCIN 250 MG ORAL TABS 5875226 AZITHROMYCIN Inactive HYDROCODONE-ACETAMINOPHEN 5-325 MG TABS 1 tab by mouth every 6 hours as needed for bck pain HYDROCODONE-ACETAMINOPHEN 5-325 MG TABS 684252 HYDROCODONE-ACETAMINOPHEN Inactive PREDNISONE 20 MG TAB 1 tab po BID for 3 days, then 1 tab po qday for 3 days PREDNISONE 20 MG TAB 164122 PREDNISONE Inactive BACTRIM DS 800-160 MG TAB 1 tab by mouth twice daily BACTRIM DS 800-160 MG TAB 252921 TRIMETHOPRIM-SULFAMETHOXAZOLE Inactive LEVAQUIN 500 MG TAB 1 tablet by mouth daily LEVAQUIN 500 MG TAB 569148 LEVOFLOXACIN Inactive KEFLEX 500 MG CAP 1 po TID x 10 days KEFLEX 500 MG CAP 211059 CEPHALEXIN Inactive BACTRIM DS 800-160 MG TAB 1 tab by mouth twice daily BACTRIM DS 800-160 MG TAB 736882 TRIMETHOPRIM-SULFAMETHOXAZOLE Inactive FENTANYL 25 MCG/HR PT72 Apply to clean, dry skin and change every 72 hours FENTANYL 25 MCG/HR PT72 507785 FENTANYL Inactive ZITHROMAX 250 MG TAB 2 po today, then 1 po q days 2-5 ZITHROMAX 250 MG TAB 4519487 AZITHROMYCIN Inactive Vital Signs Date Name Value [...] Panel - Chemistry sodium, serum 133 mmol/L 473-849 0464/08/24 potassium, serum 4.4 mmol/L 3.5-5.2 chloride, serum 95 mmol/L 98-107 carbon dioxide, venous blood 33.0 mmol/L 21.0-32.0 blood glucose 107 mg/dL 65-110 calcium, serum 8.8 mg/dL 8.5-10.1 urea nitrogen, blood 12 mg/dL 7-18 creatinine, serum 0.69 mg/dL 0.55-1.30 Lab Report: CBC, Basic Metabolic Panel - Chemistry sodium, serum 132 mmol/L 481-472 7708/10/12 potassium, serum 4.7 mmol/L 3.5-5.2 chloride, serum [...] CBC - Chemistry sodium, serum 136 mmol/L 959-483 6995/11/01 carbon dioxide, venous blood 32.1 mmol/L 21.0-32.0 [...] count 262 10^3/MM^3 10*3/mm3 142-424 Lab Report: Lipid Panel, Comp. Metabolic Panel, CBC W/DIFF, MICROALB/CRE ... - Chemistry cholesterol, serum 195 mg/dL 860-698 4884/12/02 triglyceride, serum, fasting 74 mg/dL 30-200 HDL cholesterol, serum 52 mg/dL 32-96 LDL cholesterol, serum 128 mg/dL 0-130 sodium, serum 134 mmol/L 747-719 7379/12/02 carbon dioxide, venous blood 30.3 mmol/L 21.0-32.0 [...] 1.010 1.000-1.030 pH, urine, semiquantitative 7.5 5.0-8.5 Encounters Code Encounter Date Provider Facility CPT-65890 Level 3 Est. Patient 10:34:55 CDT Gareth Cancino MD [facility]-64157 Level 4 Est. Patient 09:00:18 CDT Gareth Cancino MD [facility]-41509 Level 3 Est. Patient 15:12:03 CDT Gareth Cancino MD [facility]-87057 Level 3 Est. Patient 23:08:20 CDT Gareth Cancino MD [facility]-28524 Level 4 Est. Patient 20:40:10 CDT Gareth Cancino MD [facility] CPT-08957 Level 4 Est. Patient 19:50:11 CDT Gareth Cancino MD [facility] CPT-37575 Level 3 Est. Patient 11:00:13 CDT Gareth Cancino MD [facility] CPT-33938 Level 4 Est. Patient 11:20:21 CDT Gareth Cancino MD [facility] CPT-81398 Level 4 Est. Patient 09:22:18 ADVERTISING SPECIALIST Gareth Cancino MD [facility] CPT-37417 Level 3 Est. Patient 09:48:04 CDT Gareth Cancino MD [facility] CPT-96238 Level 3 Est. Patient 10:13:16 CDT Gareth Cancino MD [facility] CPT-64004 Level 2 Est. Patient 18:36:56 CDT Gareth Cancino MD [facility] CPT-22937 Level 4 Est. Patient 13:50:53 CDT Gareth Cancino MD [facility] CPT-66408 Level 3 Est. Patient 14:58:33 ADVERTISING SPECIALIST Gareth Cancino MD [facility] CPT-09745 Level 4 Est. Patient 09:25:57 CDT Gareth Cancino MD [facility] CPT-46279 Level 3 Est. Patient 20:39:33 CDT Noman Edwards DO [facility] CPT-12165 Level 2 Est. Patient 13:17:39 CDT Gareth Cancino MD [facility] CPT-29655 Level 3 Est. Patient 13:37:20 CDT Gareth Cancino MD [facility] CPT-84184 Level 3 Est. Patient 18:09:08 CDT Gareth Cancino MD [facility] CPT-20930 Level 4 Est. Patient 09:59:07 CDT Gareth Cancino MD [facility] Procedures Code Procedure Name Date Entry Date Standard Description CPT-G0009 Administration of Pneumococcal Vaccine 11:42:53 ADVERTISING SPECIALIST CPT-53929 Prevnar 13 Intramuscular Suspension 11:42:53 ADVERTISING SPECIALIST 01/07 CPT-46254 First Vx - Ix admin for Medicare patients 11:39:44 ADVERTISING SPECIALIST CPT-17346 Fluzone High-Dose Intramuscular Suspension 11:39:44 ADVERTISING SPECIALIST CPT-24505 Prevnar 13 Intramuscular Suspension 09:29:52 ADVERTISING SPECIALIST 01/07 CPT-95065 CMP - LAB USE ONLY 16:31:15 CDT CPT-21473 CBC - LAB USE ONLY 16:31:14 CDT CPT-60974 Venipuncture Draw Fee 16:31:14 CDT CPT-62630 BMP - LAB USE ONLY 14:37:27 CDT CPT-37005 CBC - LAB USE ONLY 14:37:27 CDT CPT-97712 Venipuncture Draw Fee 14:37:27 CDT CPT-TCMM Transitional Care Mgmt-Moderate 14:43:38 CDT CPT-21580 Venipuncture Draw Fee 10:33:47 CDT CPT-81814 BMP - LAB USE ONLY 10:33:46 CDT CPT-Cryo Cryotherapy 15:12:03 CDT CPT-88848 LS spine AP and Lat - XRAY USE ONLY 10:31:51 CDT 07/27 CPT-48923 Punch biopsy 1 lsn 20:40:09 CDT CPT-G0008 Administration of Influenza Virus Vaccine 10:04:48 ADVERTISING SPECIALIST CPT-21826 Fluzone High-Dose Intramuscular Suspension 10:04:48 ADVERTISING SPECIALIST CPT-88455 Ribs unilat w PA chst min 3V 10:45:40 CDT CPT-LR Lesion Removal 13:14:55 CDT CPT-Cryo Cryotherapy 13:14:55 CDT CPT-04833 Venipuncture Draw Fee 10:25:49 CDT CPT-38448 Administration single or combination vaccine inc oral 13 :22:14 ADVERTISING SPECIALIST CPT-69367 Influenza High Dose age 65+ 13:22:14 ADVERTISING SPECIALIST
--- OUTSIDE RECORDS SUMMARY | 2016-12-06 08:03 | XMS REPORT | Clinical Summary ---
Author Author Admin, HILARIA Organization [facility] Address Unknown Phone Unavailable Allergies, Adverse Reactions, Alerts Allergy Name Reaction Description Start Date Severity Status Provider No Known Allergies Negin Garcia LPN Conditions or Problems Problem Name Problem Code [...] eczema, unspecified cause Skin lesion 709.9 Active Jillina Shannanl STOCKROOM SELECTOR Unspecified disorder of skin and subcutaneous tissue Bronchitis-Acute ICD-466.0 Inactive Gareth Cancino MD Medication List Medication Instructions Start Date Stop Date Generic Name NDC Status Provider Patient Instruction KEFLEX 500 MG CAP 1 po TID x 10 days CEPHALEXIN 60713667236 No Longer Active Jillina Frazell [employer]OCKROOM SELECTOR Active CLOBETASOL PROPIONATE 0.05 % CREA apply to hand rash bid CLOBETASOL PROPIONATE 00312743379 Active Gareth Cancino MD Active WELLBUTRIN SR 150 MG ORAL [id number] take 1 tab po BID BUPROPION HCL 33700866101 Active Gareth Cancino MD Active METOPROLOL SUCCINATE 50 MG TB24 1 tablet by mouth daily METOPROLOL SUCCINATE 63934419650 No Longer Active Gareth Cancino MD Active METOPROLOL SUCCINATE ER 100 MG [id number] 1 pill by mouth daily, for blood pressure METOPROLOL SUCCINATE 00936325034 Active Gareth Cancino MD Active OMEPRAZOLE 20 MG TBEC Take one by mouth daily OMEPRAZOLE 27783323068 No Longer Active Gareth Cancino MD Active OMEPRAZOLE 40 MG CPDR 1 tab po qday for acid reflux. OMEPRAZOLE 50217528282 Active Gareth Cancino MD Active LEVAQUIN 500 MG TAB 1 tablet by mouth daily LEVOFLOXACIN 58607612999 No Longer Active Gareth Cancino MD Active ALEVE 220 MG TAB 2 tab po qd NAPROXEN SODIUM 83565244392 Active Gareth Cancino MD Active ASPIRIN 81 MG CHEW TAB 1 tablet by mouth daily ASPIRIN 01352896343 Active Gareth Cancino MD Active VENTOLIN HFA 108 (90 BASE) MCG/ACT AERS 1-2 puffs four times a day PRN shortness of breath ALBUTEROL SULFATE 79116391181 Active Fuad Franks MD Active CENTRUM SILVER TABS 1 TAB PO DAILY MULTIPLE VITAMINS-MINERALS 22810281745 Active Gareth Cancino MD Active VITAMIN B12 100 MCG TABS 1 TAB PO DAILY CYANOCOBALAMIN 37499228509 Active Gareth Cancino MD Active CIPRO 500 MG TABS 1 TAB PO BID CIPROFLOXACIN HCL 24839021741 No Longer Active Gareth Cancino MD Active BACTRIM DS 800-160 MG TAB 1 tab by mouth twice daily TRIMETHOPRIM-SULFAMETHOXAZOLE 44101084536 No Longer Active Gareth Cancino MD Active PREDNISONE 20 MG TAB 1 tab po BID for 3 days, then 1 tab po qday for 3 days PREDNISONE 91483520668 No Longer Active Gareth Cancino MD Active FOLIC ACID 800 MCG TABS Take one by mouth daily FOLIC ACID 65332993875 No Longer Active Gareth Cancino MD Active VITAMIN B-6 250 MG TABS Take one by mouth daily PYRIDOXINE HCL 68188904431 No Longer Active Gareth Cancino MD Active B-12 1000 MCG CAPS Take one by mouth daily CYANOCOBALAMIN 08754003164 No Longer Active Gareth Cancino MD Active DOXYCYCLINE HYCLATE 100 MG CAP 1 cap by mouth twice daily DOXYCYCLINE HYCLATE 81922202956 No Longer Active Gareth Cancino MD Active PREDNISONE 20 MG TAB 1 po bid 3 days, then 1 po q day 3 days 2011 PREDNISONE 04005352870 No Longer Active Gareth Cancino MD Active CHANTIX STARTING MONTH RUBEN 0.5 MG X 11 & 1 MG X 42 TABS 0.5mg daily for 3 days , then 0.5mg BID for 4 days, then 1mg BID VARENICLINE TARTRATE 12513693575 No Longer Active Gareth Cancino MD Active ALPRAZOLAM 0.25 MG TAB 1/2 to 1 tablet by mouth qhs prn ALPRAZOLAM 20966641570 Active Gareth Cancino MD Active SIMVASTATIN 40 MG TABS Take one by mouth daily SIMVASTATIN 02144466741 Active Gareth Cancino MD Active TRIAMTERENE-HCTZ 37.5-25 MG CAPS Take one by mouth daily TRIAMTERENE- HCTZ 35335978372 Active Gareth Cancino MD Active CHANTIX STARTING [...] 3 days 2011 PREDNISONE 20 MG TAB 834130 PREDNISONE Inactive DOXYCYCLINE HYCLATE 100 MG CAP 1 cap by mouth twice daily DOXYCYCLINE HYCLATE 100 MG CAP 4519358 DOXYCYCLINE HYCLATE Inactive B-12 1000 MCG CAPS Take one by mouth daily B-12 1000 MCG CAPS CYANOCOBALAMIN Inactive VITAMIN B-6 250 MG TABS Take one by mouth daily VITAMIN B-6 250 MG TABS PYRIDOXINE HCL Inactive FOLIC ACID 800 MCG TABS Take one by mouth daily FOLIC ACID 800 MCG TABS 126649 FOLIC ACID Inactive CIPRO 500 MG TABS 1 TAB PO BID CIPRO 500 MG TABS 880721 CIPROFLOXACIN HCL Inactive OMEPRAZOLE 20 MG TBEC Take one by mouth daily OMEPRAZOLE 20 MG TBEC 339059 OMEPRAZOLE Inactive METOPROLOL SUCCINATE 50 MG TB24 1 tablet by mouth daily METOPROLOL SUCCINATE 50 MG TB24 METOPROLOL SUCCINATE Inactive PREDNISONE 20 MG TAB 1 tab po BID for 3 days, then 1 tab po qday for 3 days PREDNISONE 20 MG TAB 893685 PREDNISONE Inactive BACTRIM DS 800-160 MG TAB 1 tab by mouth twice daily BACTRIM DS 800-160 MG TAB TRIMETHOPRIM-SULFAMETHOXAZOLE Inactive LEVAQUIN 500 MG TAB 1 tablet by mouth daily LEVAQUIN 500 MG TAB 451824 LEVOFLOXACIN Inactive KEFLEX 500 MG CAP 1 po TID x 10 days KEFLEX 500 MG CAP 590458 CEPHALEXIN Inactive Vital Signs Date Name Value Unit [...] E&M - 3141-9 160 [lb_av] Weight Measured blood pressure, diastolic - [...] MICROALBUMIN - Chemistry sodium, serum 138 mmol/L 220-585 3553/09/10 potassium, serum 4.2 mmol/L 3.5-5.2 chloride, serum [...] 0.20 mg/dL 0.00-1.00 cholesterol, serum 153 mg/dL 297-615 9521/09/10 triglyceride, serum, fasting 69 mg/dL 30-200 HDL [...] mg/dL Encounters Code Encounter Date Provider Facility CPT-30780 Level 4 Est. Patient 11:20:21 CDT Gareth Cancnio MD [facility] CPT-17679 Level 4 Est. Patient 09:22:18 CODING COMPLIANCE MANAGER Gareth Cancino MD [facility] CPT-42570 Level 3 Est. Patient 09:48:04 CDT Gareth Cancino MD [facility] CPT-89760 Level 3 Est. Patient 10:13:16 CDT Gareth Cancino MD [facility] CPT-31097 Level 2 Est. Patient 18:36:56 CDT Gareth Cancino MD [facility] CPT-64325 Level 4 Est. Patient 13:50:53 CDT Gareth Cancino MD [facility] CPT-39183 Level 3 Est. Patient 14:58:33 CODING COMPLIANCE MANAGER Gareth Cancino MD [facility] CPT-20233 Level 4 Est. Patient 09:25:57 CDT Gareth Cancino MD [facility] CPT-32572 Level 3 Est. Patient 20:39:33 CDT Noman Edwards DO [facility] CPT-05031 Level 2 Est. Patient 13:17:39 CDT Gareth Cancino MD [facility] CPT-55865 Level 3 Est. Patient 13:37:20 CDT Gareth Cancino MD [facility] CPT-97705 Level 3 Est. Patient 18:09:08 CDT Gareth Cancino MD [facility] CPT-11016 Level 4 Est. Patient 09:59:07 CDT Gareth Cancino MD [facility] Procedures Code Procedure Name Date Entry Date Standard Description CPT-G0008 Administration of Influenza Virus Vaccine 10:04:48 CODING COMPLIANCE MANAGER CPT-03319 Fluzone High-Dose Intramuscular Suspension 10:04:48 CODING COMPLIANCE MANAGER CPT-90884 Ribs unilat w PA chst min 3V 10:45:40 CDT CPT-LR Lesion Removal 13:14:55 CDT CPT-Cryo Cryotherapy 13:14:55 CDT CPT-60261 Venipuncture Draw Fee 10:25:49 CDT CPT-25090 Administration single or combination vaccine inc oral 13 :22:14 CODING COMPLIANCE MANAGER CPT-25206 Influenza High Dose age 65+ 13:22:14 CODING COMPLIANCE MANAGER
--- OUTSIDE RECORDS SUMMARY | 2016-12-06 08:03 | XMS REPORT | Clinical Summary ---
Author Author Admin, HILARIA Organization [facility] Address Unknown Phone Unavailable Allergies, Adverse Reactions, [...] 1 GM ORAL PACK as directed AZITHROMYCIN 04807992761 Active Tangela Forte Active PIROXICAM 20 MG ORAL CAPS 1 po daily as needed for arthritis/pain PIROXICAM 51120977097 Active aGreth Cancino MD Active ZITHROMAX Z-RUBEN 250 MG TABS 2 today, then 1 daily for 4 days 2016 AZITHROMYCIN 78005690183 No Longer Active Tangelashar Forte Active FENTANYL 25 MCG/HR TRANS PT72 1 patch every 72 hours FENTANYL 61366789912 Active Mary Shah APRN Active PREDNISONE 20 MG TAB take 3 tabs daily for 3 days, 2 tabs daily for 3 days, 1 tab daily for 3 days, 1/2 tab daily for 4 days PREDNISONE 06090891004 No Longer Active Mary Shah APRN Active LEVAQUIN 500 MG TAB 1 tablet by mouth daily for 7 days LEVOFLOXACIN 50282076045 Active Mray Shah APRN Active AZITHROMYCIN 250 MG TABS 2 po qd x 1 day, then 1 po qd x 4 days AZITHROMYCIN 13558502548 No Longer Active Danuta Modi Active AZITHROMYCIN 250 MG TABS 2 po qd x 1 day, then 1 po qd x 4 days AZITHROMYCIN 19127985819 No Longer Active Tangela Forte Active HYDROCODONE-ACETAMINOPHEN 5-325 MG TABS 1 tab by mouth every 6 hours as needed for bck pain HYDROCODONE-ACETAMINOPHEN 34877942123 No Longer Active Gareth Cancino MD Active ALPRAZOLAM 0.25 MG TAB 1 tablet by mouth q hs prn ALPRAZOLAM 89470513833 Active Gareth Cancino MD Active AZITHROMYCIN 250 MG ORAL TABS 1 tab daily AZITHROMYCIN 66444992624 No Longer Active Gareth Cancino MD Active ZITHROMAX 250 MG TAB 2 po today, then 1 po q days 2-5 AZITHROMYCIN 85518249430 No Longer Active Tangela Forte Active IPRATROPIUM-ALBUTEROL 0.5-2.5 (3) MG/3ML INH SOLN nebulize 1 vial every 6hrs prn shortness of breath IPRATROPIUM-ALBUTEROL 21450119467 Active Gareth Cancino MD Active FENTANYL 25 MCG/HR PT72 Apply to clean, dry skin and change every 72 hours FENTANYL 19728180093 No Longer Active Gareth Cancino MD Active WELLBUTRIN SR 150 MG ORAL [id number] take 1 tab po BID BUPROPION HCL 94454342827 No Longer Active Gareth Cancino MD Active ZOFRAN 4 MG ORAL TABS 1 by mouth every 6 hours prn nausea ONDANSETRON HCL 63449560284 Active Tangela Forte Active TRAMADOL HCL 50 MG TABS 1 po tid PRN TRAMADOL HCL 27731706943 Active Gareth Cancino MD Active ALPRAZOLAM 0.25 MG TAB 1/2 to 1 tablet by mouth qhs prn ALPRAZOLAM 53734214071 No Longer Active Gareth Cancino MD Active CLOBETASOL PROPIONATE 0.05 % CREA apply to hand rash bid CLOBETASOL PROPIONATE 93782230091 No Longer Active Gareth Cancino MD Active BACTROBAN 2 % CREAM Apply to affected area BID MUPIROCIN CALCIUM 73066267434 No Longer Active Gareth Cancino MD Active LISINOPRIL 20 MG TABS 1 tablet by mouth daily for high blood pressure 10/14 LISINOPRIL 38044042145 Active Gareth Cancino MD Active BACTRIM DS 800-160 MG TAB 1 tab by mouth twice daily TRIMETHOPRIM-SULFAMETHOXAZOLE 58383529203 No Longer Active Gareth Cancino MD Active METOPROLOL SUCCINATE ER 100 MG [id number] 1 pill by mouth daily, for blood pressure METOPROLOL SUCCINATE 24987836236 Active Gareth Cancino MD Active KEFLEX 500 MG CAP 1 po TID x 10 days CEPHALEXIN 43079825192 No Longer Active Blanca Castillo APRN Active METOPROLOL SUCCINATE 50 MG TB24 1 tablet by mouth daily METOPROLOL SUCCINATE 57719565531 No Longer Active Gareth Cancino MD Active OMEPRAZOLE 20 MG TBEC Take one by mouth daily OMEPRAZOLE 34380922554 No Longer Active Gareth Cancino MD Active OMEPRAZOLE 40 MG CPDR 1 tab po qday for acid reflux. OMEPRAZOLE 82106279377 Active Mary Shah APRN Active LEVAQUIN 500 MG TAB 1 tablet by mouth daily LEVOFLOXACIN 23049223342 No Longer Active Gareth Cancino MD Active ALEVE 220 MG TAB 2 tab po qd NAPROXEN SODIUM 26921133906 Active Gareth Cancino MD Active ASPIRIN 81 MG CHEW TAB 1 tablet by mouth daily ASPIRIN 95587160283 Active Gareth Cancino MD Active VENTOLIN HFA 108 (90 BASE) MCG/ACT AERS 1-2 puffs four times a day PRN shortness of breath ALBUTEROL SULFATE 39280630318 Active Mary Shah APRN Active CENTRUM SILVER TABS 1 TAB PO DAILY MULTIPLE VITAMINS-MINERALS 02150183652 Active Gareth Cancino MD Active VITAMIN B12 100 MCG TABS 1 TAB PO DAILY CYANOCOBALAMIN 77814251007 Active Gareth Cancino MD Active CIPRO 500 MG TABS 1 TAB PO BID CIPROFLOXACIN HCL 63653551899 No Longer Active Gareth Cancino MD Active BACTRIM DS 800-160 MG TAB 1 tab by mouth twice daily TRIMETHOPRIM-SULFAMETHOXAZOLE 40603462537 No Longer Active Gareth Cancino MD Active PREDNISONE 20 MG TAB 1 tab po BID for 3 days, then 1 tab po qday for 3 days PREDNISONE 64560894693 No Longer Active Gareth Cancino MD Active FOLIC ACID 800 MCG TABS Take one by mouth daily FOLIC ACID 02319391010 No Longer Active Gareth Cancino MD Active VITAMIN B-6 250 MG TABS Take one by mouth daily PYRIDOXINE HCL 97140130716 No Longer Active Gareth Cancino MD Active B-12 1000 MCG CAPS Take one by mouth daily CYANOCOBALAMIN 76679883111 No Longer Active Gareth Cancino MD Active DOXYCYCLINE HYCLATE 100 MG CAP 1 cap by mouth twice daily DOXYCYCLINE HYCLATE 09239834509 No Longer Active Gareth Cancino MD Active PREDNISONE 20 MG TAB 1 po bid 3 days, then 1 po q day 3 days 2011 PREDNISONE 69976831805 No Longer Active Gareth Cancino MD Active CHANTIX STARTING MONTH RUBEN 0.5 MG X 11 & 1 MG X 42 TABS 0.5mg daily for 3 days , then 0.5mg BID for 4 days, then 1mg BID VARENICLINE TARTRATE 57056036216 No Longer Active Gareth Cancino MD Active SIMVASTATIN 40 MG TABS Take one by mouth daily SIMVASTATIN 03110087184 Active Gareth Cancino MD Active TRIAMTERENE-HCTZ 37.5-25 MG CAPS Take one by mouth daily TRIAMTERENE- HCTZ 53692455580 Active Mary Shah APRN Active CHANTIX STARTING [...] 3 days 2011 PREDNISONE 20 MG TAB 088113 PREDNISONE Inactive DOXYCYCLINE HYCLATE 100 MG CAP 1 cap by mouth twice daily DOXYCYCLINE HYCLATE 100 MG CAP 9448735 DOXYCYCLINE HYCLATE Inactive B-12 1000 MCG CAPS Take one by mouth daily B-12 1000 MCG CAPS CYANOCOBALAMIN Inactive VITAMIN B-6 250 MG TABS Take one by mouth daily VITAMIN B-6 250 MG TABS PYRIDOXINE HCL Inactive FOLIC ACID 800 MCG TABS Take one by mouth daily FOLIC ACID 800 MCG TABS 801903 FOLIC ACID Inactive CIPRO 500 MG TABS 1 TAB PO BID CIPRO 500 MG TABS 660069 CIPROFLOXACIN HCL Inactive OMEPRAZOLE 20 MG TBEC Take one by mouth daily OMEPRAZOLE 20 MG TBEC 463718 OMEPRAZOLE Inactive METOPROLOL SUCCINATE 50 MG TB24 1 tablet by mouth daily METOPROLOL SUCCINATE 50 MG TB24 METOPROLOL SUCCINATE Inactive BACTROBAN 2 % CREAM Apply to affected area BID BACTROBAN 2 % CREAM 466858 MUPIROCIN CALCIUM Inactive CLOBETASOL PROPIONATE 0.05 % CREA apply to hand rash bid CLOBETASOL PROPIONATE 0.05 % CREA 847089 CLOBETASOL PROPIONATE Inactive ALPRAZOLAM 0.25 MG TAB 1/2 to 1 tablet by mouth qhs prn ALPRAZOLAM 0.25 MG TAB 222198 ALPRAZOLAM Inactive WELLBUTRIN SR 150 MG ORAL [id number] take 1 tab po BID WELLBUTRIN SR 150 MG ORAL [id number] BUPROPION HCL Inactive AZITHROMYCIN 250 MG ORAL TABS 1 tab daily AZITHROMYCIN 250 MG ORAL TABS 0901031 AZITHROMYCIN Inactive HYDROCODONE-ACETAMINOPHEN 5-325 MG TABS 1 tab by mouth every 6 hours as needed for bck pain HYDROCODONE-ACETAMINOPHEN 5-325 MG TABS 189275 HYDROCODONE-ACETAMINOPHEN Inactive PREDNISONE 20 MG TAB 1 tab po BID for 3 days, then 1 tab po qday for 3 days PREDNISONE 20 MG TAB 161983 PREDNISONE Inactive BACTRIM DS 800-160 MG TAB 1 tab by mouth twice daily BACTRIM DS 800-160 MG TAB 874258 TRIMETHOPRIM-SULFAMETHOXAZOLE Inactive LEVAQUIN 500 MG TAB 1 tablet by mouth daily LEVAQUIN 500 MG TAB 917894 LEVOFLOXACIN Inactive KEFLEX 500 MG CAP 1 po TID x 10 days KEFLEX 500 MG CAP 784908 CEPHALEXIN Inactive BACTRIM DS 800-160 MG TAB 1 tab by mouth twice daily BACTRIM DS 800-160 MG TAB 813476 TRIMETHOPRIM-SULFAMETHOXAZOLE Inactive FENTANYL 25 MCG/HR PT72 Apply to clean, dry skin and change every 72 hours FENTANYL 25 MCG/HR PT72 150466 FENTANYL Inactive ZITHROMAX 250 MG TAB 2 po today, then 1 po q days 2-5 ZITHROMAX 250 MG TAB 0834108 AZITHROMYCIN Inactive AZITHROMYCIN 250 MG TABS 2 po qd x 1 day, then 1 po qd x 4 days AZITHROMYCIN 250 MG TABS 9168337 AZITHROMYCIN Inactive AZITHROMYCIN 250 MG TABS 2 po qd x 1 day, then 1 po qd x 4 days AZITHROMYCIN 250 MG TABS 4275175 AZITHROMYCIN Inactive PREDNISONE 20 MG TAB take 3 tabs daily for 3 days, 2 tabs daily for 3 days, 1 tab daily for 3 days, 1/2 tab daily for 4 days PREDNISONE 20 MG TAB 323411 PREDNISONE Inactive ZITHROMAX Z-RUBEN 250 MG TABS 2 today, then 1 daily for 4 days 2016 ZITHROMAX Z-RUBEN 250 MG TABS 7777142 AZITHROMYCIN Inactive Vital Signs Date Name Value [...] Panel - Chemistry sodium, serum 133 mmol/L 156-339 4386/08/24 potassium, serum 4.4 mmol/L 3.5-5.2 chloride, serum 95 mmol/L 98-107 carbon dioxide, venous blood 33.0 mmol/L 21.0-32.0 blood glucose 107 mg/dL 65-110 calcium, serum 8.8 mg/dL 8.5-10.1 urea nitrogen, blood 12 mg/dL 7-18 creatinine, serum 0.69 mg/dL 0.55-1.30 Lab Report: CBC, Basic Metabolic Panel - Chemistry sodium, serum 132 mmol/L 123-254 2383/10/12 potassium, serum 4.7 mmol/L 3.5-5.2 chloride, serum [...] CBC - Chemistry sodium, serum 136 mmol/L 318-613 8593/11/01 carbon dioxide, venous blood 32.1 mmol/L 21.0-32.0 [...] PANEL - Chemistry cholesterol, serum 169 mg/dL 764-244 2522/05/09 HDL cholesterol, serum 54 mg/dL > OR=46 [...] mg/dL Encounters Code Encounter Date Provider Facility CPT-52967 Level 4 Est. Patient 07:23:02 CDT Gareth Cancino MD [facility] CPT-33008 Level 3 Est. Patient 09:05:25 AIRPORT SKILLED MAINTENANCE SUPERVISOR Mary Shah APRN [facility] CPT-31401 Level 3 Est. Patient 20:53:25 AIRPORT SKILLED MAINTENANCE SUPERVISOR Gareth Cancino MD [facility] CPT-13626 Level 3 Est. Patient 10:34:55 CDT Gareth Cancino MD [facility] CPT-29110 Level 4 Est. Patient 09:00:18 CDT Gareth Cancino MD [facility] CPT-08661 Level 3 Est. Patient 15:12:03 CDT Gareth Cancino MD [facility] CPT-78138 Level 3 Est. Patient 23:08:20 CDT Gareth Cancino MD [facility] CPT-70627 Level 4 Est. Patient 20:40:10 CDT Gareth Cancino MD [facility] CPT-33647 Level 4 Est. Patient 19:50:11 CDT Gareth Cancino MD [facility] CPT-89404 Level 3 Est. Patient 11:00:13 CDT Gareth Cancino MD [facility] CPT-78067 Level 4 Est. Patient 11:20:21 CDT Gareth Cancino MD [facility] CPT-53851 Level 4 Est. Patient 09:22:18 AIRPORT SKILLED MAINTENANCE SUPERVISOR Gareth Cancino MD [facility] CPT-16008 Level 3 Est. Patient 09:48:04 CDT Gareth Cancino MD [facility] CPT-52158 Level 3 Est. Patient 10:13:16 CDT Gareth Cancino MD [facility] CPT-08273 Level 2 Est. Patient 18:36:56 CDT Gareth Cancino MD [facility] CPT-37128 Level 4 Est. Patient 13:50:53 CDT Gareth Cancino MD [facility] CPT-70087 Level 3 Est. Patient 14:58:33 AIRPORT SKILLED MAINTENANCE SUPERVISOR Gareth Cancino MD [facility] CPT-42681 Level 4 Est. Patient 09:25:57 CDT Gareth Cancino MD [facility] CPT-97097 Level 3 Est. Patient 20:39:33 CDT Noman Edwards DO [facility] CPT-51020 Level 2 Est. Patient 13:17:39 CDT Gareth Cancino MD [facility] CPT-49065 Level 3 Est. Patient 13:37:20 CDT Gareth Cancino MD [facility] CPT-68993 Level 3 Est. Patient 18:09:08 CDT Gareth Cancino MD [facility] CPT-20192 Level 4 Est. Patient 09:59:07 CDT Gareth Cancino MD [facility] Procedures Code Procedure Name Date Entry Date Standard Description CPT-000 Give Appropriate Flu Vaccine 09:29:52 AIRPORT SKILLED MAINTENANCE SUPERVISOR CPT-000 Give Appropriate Flu Vaccine 09:22:20 AIRPORT SKILLED MAINTENANCE SUPERVISOR CPT-64489 TSH - LAB USE ONLY 08:11:40 AIRPORT SKILLED MAINTENANCE SUPERVISOR CPT-36208 Free T4 - LAB USE ONLY 08:11:40 AIRPORT SKILLED MAINTENANCE SUPERVISOR CPT-51746 Venipuncture Draw Fee 08:11:40 AIRPORT SKILLED MAINTENANCE SUPERVISOR CPT-54918 UA w micro - LAB USE ONLY 14:26:22 AIRPORT SKILLED MAINTENANCE SUPERVISOR CPT-G0438 Initial Annual Wellness Exam 20:53:25 AIRPORT SKILLED MAINTENANCE SUPERVISOR CPT-G0009 Administration of Pneumococcal Vaccine 11:42:53 AIRPORT SKILLED MAINTENANCE SUPERVISOR CPT-72835 Prevnar 13 Intramuscular Suspension 11:42:53 AIRPORT SKILLED MAINTENANCE SUPERVISOR 01/07 CPT-25862 First Vx - Ix admin for Medicare patients 11:39:44 AIRPORT SKILLED MAINTENANCE SUPERVISOR CPT-38052 Fluzone High-Dose Intramuscular Suspension 11:39:44 AIRPORT SKILLED MAINTENANCE SUPERVISOR CPT-50946 Prevnar 13 Intramuscular Suspension 09:29:52 AIRPORT SKILLED MAINTENANCE SUPERVISOR 01/07 CPT-88600 CMP - LAB USE ONLY 16:31:15 CDT CPT-47795 CBC - LAB USE ONLY 16:31:14 CDT CPT-66696 Venipuncture Draw Fee 16:31:14 CDT CPT-86277 BMP - LAB USE ONLY 14:37:27 CDT CPT-28476 CBC - LAB USE ONLY 14:37:27 CDT CPT-77874 Venipuncture Draw Fee 14:37:27 CDT CPT-TCMM Transitional Care Mgmt-Moderate 14:43:38 CDT CPT-92156 Venipuncture Draw Fee 10:33:47 CDT CPT-18886 BMP - LAB USE ONLY 10:33:46 CDT CPT-Cryo Cryotherapy 15:12:03 CDT CPT-11828 LS spine AP and Lat - XRAY USE ONLY 10:31:51 CDT 07/27 CPT-42345 Punch biopsy 1 lsn 20:40:09 CDT CPT-G0008 Administration of Influenza Virus Vaccine 10:04:48 AIRPORT SKILLED MAINTENANCE SUPERVISOR CPT-23791 Fluzone High-Dose Intramuscular Suspension 10:04:48 AIRPORT SKILLED MAINTENANCE SUPERVISOR CPT-56467 Ribs unilat w PA chst min 3V 10:45:40 CDT CPT-LR Lesion Removal 13:14:55 CDT CPT-Cryo Cryotherapy 13:14:55 CDT CPT-76764 Venipuncture Draw Fee 10:25:49 CDT CPT-99662 Administration single or combination vaccine inc oral 13 :22:14 AIRPORT SKILLED MAINTENANCE SUPERVISOR CPT-41827 Influenza High Dose age 65+ 13:22:14 AIRPORT SKILLED MAINTENANCE SUPERVISOR
--- OUTSIDE RECORDS SUMMARY | 2016-12-06 08:04 | XMS REPORT | Clinical Summary ---
Author Author Admin, HILARIA Organization [facility] Address Unknown Phone Unavailable Allergies, Adverse Reactions, [...] MD Unspecified chest pain Bronchitis-Acute 466.0 Inactive Graeth Cancino MD Acute bronchitis GERD 530.81 Active [...] Generic Name NDC Status Provider Patient Instruction PIROXICAM 20 MG ORAL CAPS 1 po daily as needed for arthritis/pain PIROXICAM 86554069229 Active Gareth Cancino MD Active ZITHROMAX Z-RUBEN 250 MG TABS 2 today, then 1 daily for 4 days 2016 AZITHROMYCIN 78667791340 No Longer Active Tangelashar Forte Active FENTANYL 25 MCG/HR TRANS PT72 1 patch every 72 hours FENTANYL 77387666880 Active Mary Shah APRN Active PREDNISONE 20 MG TAB take 3 tabs daily for 3 days, 2 tabs daily for 3 days, 1 tab daily for 3 days, 1/2 tab daily for 4 days PREDNISONE 65777246147 No Longer Active Mary Shah APRN Active LEVAQUIN 500 MG TAB 1 tablet by mouth daily for 7 days LEVOFLOXACIN 73532012444 Active Marylennox Shah APRN Active AZITHROMYCIN 250 MG TABS 2 po qd x 1 day, then 1 po qd x 4 days AZITHROMYCIN 67037541069 No Longer Active Danuta Rian Active AZITHROMYCIN 250 MG TABS 2 po qd x 1 day, then 1 po qd x 4 days AZITHROMYCIN 34151161076 No Longer Active Tnagela Forte Active HYDROCODONE-ACETAMINOPHEN 5-325 MG TABS 1 tab by mouth every 6 hours as needed for bck pain HYDROCODONE-ACETAMINOPHEN 74070755561 No Longer Active Gareth Cancino MD Active ALPRAZOLAM 0.25 MG TAB 1 tablet by mouth q hs prn ALPRAZOLAM 08060556335 Active Gareth Cancino MD Active AZITHROMYCIN 250 MG ORAL TABS 1 tab daily AZITHROMYCIN 75629400515 No Longer Active Gareth Cancino MD Active ZITHROMAX 250 MG TAB 2 po today, then 1 po q days 2-5 AZITHROMYCIN 91249403490 No Longer Active Tangela Raida Active IPRATROPIUM-ALBUTEROL 0.5-2.5 (3) MG/3ML INH SOLN nebulize 1 vial every 6hrs prn shortness of breath IPRATROPIUM-ALBUTEROL 70432177514 Active Gareth Cancino MD Active FENTANYL 25 MCG/HR PT72 Apply to clean, dry skin and change every 72 hours FENTANYL 90997825559 No Longer Active Gareth Cancino MD Active WELLBUTRIN SR 150 MG ORAL [id number] take 1 tab po BID BUPROPION HCL 06915365680 No Longer Active Gareth Cancino MD Active ZOFRAN 4 MG ORAL TABS 1 by mouth every 6 hours prn nausea ONDANSETRON HCL 15090255356 Active Tangela Forte Active TRAMADOL HCL 50 MG TABS 1 po tid PRN TRAMADOL HCL 77616011696 Active Gareth Cancino MD Active ALPRAZOLAM 0.25 MG TAB 1/2 to 1 tablet by mouth qhs prn ALPRAZOLAM 89914507402 No Longer Active Gareth Cancino MD Active CLOBETASOL PROPIONATE 0.05 % CREA apply to hand rash bid CLOBETASOL PROPIONATE 25572918598 No Longer Active Gareth Cancino MD Active BACTROBAN 2 % CREAM Apply to affected area BID MUPIROCIN CALCIUM 50192601811 No Longer Active Gareth Cancino MD Active LISINOPRIL 20 MG TABS 1 tablet by mouth daily for high blood pressure 10/14 LISINOPRIL 99995502703 Active Gareth Cancino MD Active BACTRIM DS 800-160 MG TAB 1 tab by mouth twice daily TRIMETHOPRIM-SULFAMETHOXAZOLE 23827335593 No Longer Active Gareth Cancino MD Active METOPROLOL SUCCINATE ER 100 MG [id number] 1 pill by mouth daily, for blood pressure METOPROLOL SUCCINATE 70586770124 Active Garteh Cancino MD Active KEFLEX 500 MG CAP 1 po TID x 10 days CEPHALEXIN 72172806700 No Longer Active Blanca Castillo APRN Active METOPROLOL SUCCINATE 50 MG TB24 1 tablet by mouth daily METOPROLOL SUCCINATE 33868964205 No Longer Active Gareth Cancino MD Active OMEPRAZOLE 20 MG TBEC Take one by mouth daily OMEPRAZOLE 09536659133 No Longer Active Gareth Cancino MD Active OMEPRAZOLE 40 MG CPDR 1 tab po qday for acid reflux. OMEPRAZOLE 66620785002 Active Mary Shah APRN Active LEVAQUIN 500 MG TAB 1 tablet by mouth daily LEVOFLOXACIN 70610985069 No Longer Active Gareth Cancino MD Active ALEVE 220 MG TAB 2 tab po qd NAPROXEN SODIUM 37240014440 Active Gareth Cancino MD Active ASPIRIN 81 MG CHEW TAB 1 tablet by mouth daily ASPIRIN 35331698303 Active Gareth Cancino MD Active VENTOLIN HFA 108 (90 BASE) MCG/ACT AERS 1-2 puffs four times a day PRN shortness of breath ALBUTEROL SULFATE 81524945899 Active Mary Shah APRN Active CENTRUM SILVER TABS 1 TAB PO DAILY MULTIPLE VITAMINS-MINERALS 52816646938 Active Gareth Cancino MD Active VITAMIN B12 100 MCG TABS 1 TAB PO DAILY CYANOCOBALAMIN 51316478200 Active Gareth Cancino MD Active CIPRO 500 MG TABS 1 TAB PO BID CIPROFLOXACIN HCL 25802377072 No Longer Active Gareth Cancino MD Active BACTRIM DS 800-160 MG TAB 1 tab by mouth twice daily TRIMETHOPRIM-SULFAMETHOXAZOLE 33822447916 No Longer Active Gareth Cancino MD Active PREDNISONE 20 MG TAB 1 tab po BID for 3 days, then 1 tab po qday for 3 days PREDNISONE 37703308238 No Longer Active Gareth Cancino MD Active FOLIC ACID 800 MCG TABS Take one by mouth daily FOLIC ACID 40011105445 No Longer Active Gareth Cancino MD Active VITAMIN B-6 250 MG TABS Take one by mouth daily PYRIDOXINE HCL 44510096008 No Longer Active Gareth Cancino MD Active B-12 1000 MCG CAPS Take one by mouth daily CYANOCOBALAMIN 49012812021 No Longer Active Gareth Cancino MD Active DOXYCYCLINE HYCLATE 100 MG CAP 1 cap by mouth twice daily DOXYCYCLINE HYCLATE 66944086324 No Longer Active Gareth Cancino MD Active PREDNISONE 20 MG TAB 1 po bid 3 days, then 1 po q day 3 days 2011 PREDNISONE 00030751320 No Longer Active Gareth Cancino MD Active CHANTIX STARTING MONTH RUBEN 0.5 MG X 11 & 1 MG X 42 TABS 0.5mg daily for 3 days , then 0.5mg BID for 4 days, then 1mg BID VARENICLINE TARTRATE 19920720428 No Longer Active Gareth Cancino MD Active SIMVASTATIN 40 MG TABS Take one by mouth daily SIMVASTATIN 69470932852 Active Gareth Cancino MD Active TRIAMTERENE-HCTZ 37.5-25 MG CAPS Take one by mouth daily TRIAMTERENE- HCTZ 82506665963 Active Gareth Cancino MD Active CHANTIX STARTING [...] 3 days 2011 PREDNISONE 20 MG TAB 139828 PREDNISONE Inactive DOXYCYCLINE HYCLATE 100 MG CAP 1 cap by mouth twice daily DOXYCYCLINE HYCLATE 100 MG CAP 0194722 DOXYCYCLINE HYCLATE Inactive B-12 1000 MCG CAPS Take one by mouth daily B-12 1000 MCG CAPS CYANOCOBALAMIN Inactive VITAMIN B-6 250 MG TABS Take one by mouth daily VITAMIN B-6 250 MG TABS PYRIDOXINE HCL Inactive FOLIC ACID 800 MCG TABS Take one by mouth daily FOLIC ACID 800 MCG TABS 738361 FOLIC ACID Inactive CIPRO 500 MG TABS 1 TAB PO BID CIPRO 500 MG TABS 088621 CIPROFLOXACIN HCL Inactive OMEPRAZOLE 20 MG TBEC Take one by mouth daily OMEPRAZOLE 20 MG TBEC 730577 OMEPRAZOLE Inactive METOPROLOL SUCCINATE 50 MG TB24 1 tablet by mouth daily METOPROLOL SUCCINATE 50 MG TB24 METOPROLOL SUCCINATE Inactive BACTROBAN 2 % CREAM Apply to affected area BID BACTROBAN 2 % CREAM 999392 MUPIROCIN CALCIUM Inactive CLOBETASOL PROPIONATE 0.05 % CREA apply to hand rash bid CLOBETASOL PROPIONATE 0.05 % CREA 744008 CLOBETASOL PROPIONATE Inactive ALPRAZOLAM 0.25 MG TAB 1/2 to 1 tablet by mouth qhs prn ALPRAZOLAM 0.25 MG TAB 542459 ALPRAZOLAM Inactive WELLBUTRIN SR 150 MG ORAL [id number] take 1 tab po BID WELLBUTRIN SR 150 MG ORAL [id number] BUPROPION HCL Inactive AZITHROMYCIN 250 MG ORAL TABS 1 tab daily AZITHROMYCIN 250 MG ORAL TABS 1201310 AZITHROMYCIN Inactive HYDROCODONE-ACETAMINOPHEN 5-325 MG TABS 1 tab by mouth every 6 hours as needed for bck pain HYDROCODONE-ACETAMINOPHEN 5-325 MG TABS 379557 HYDROCODONE-ACETAMINOPHEN Inactive PREDNISONE 20 MG TAB 1 tab po BID for 3 days, then 1 tab po qday for 3 days PREDNISONE 20 MG TAB 471025 PREDNISONE Inactive BACTRIM DS 800-160 MG TAB 1 tab by mouth twice daily BACTRIM DS 800-160 MG TAB 237729 TRIMETHOPRIM-SULFAMETHOXAZOLE Inactive LEVAQUIN 500 MG TAB 1 tablet by mouth daily LEVAQUIN 500 MG TAB 251467 LEVOFLOXACIN Inactive KEFLEX 500 MG CAP 1 po TID x 10 days KEFLEX 500 MG CAP 268796 CEPHALEXIN Inactive BACTRIM DS 800-160 MG TAB 1 tab by mouth twice daily BACTRIM DS 800-160 MG TAB 19820425 TRIMETHOPRIM-SULFAMETHOXAZOLE Inactive FENTANYL 25 MCG/HR PT72 Apply to clean, dry skin and change every 72 hours FENTANYL 25 MCG/HR PT72 462222 FENTANYL Inactive ZITHROMAX 250 MG TAB 2 po today, then 1 po q days 2-5 ZITHROMAX 250 MG TAB 2266503 AZITHROMYCIN Inactive AZITHROMYCIN 250 MG TABS 2 po qd x 1 day, then 1 po qd x 4 days AZITHROMYCIN 250 MG TABS 1293312 AZITHROMYCIN Inactive AZITHROMYCIN 250 MG TABS 2 po qd x 1 day, then 1 po qd x 4 days AZITHROMYCIN 250 MG TABS 4557310 AZITHROMYCIN Inactive PREDNISONE 20 MG TAB take 3 tabs daily for 3 days, 2 tabs daily for 3 days, 1 tab daily for 3 days, 1/2 tab daily for 4 days PREDNISONE 20 MG TAB 759607 PREDNISONE Inactive ZITHROMAX Z-RUBEN 250 MG TABS 2 today, then 1 daily for 4 days 2016 ZITHROMAX Z-RUBEN 250 MG TABS 4747805 AZITHROMYCIN Inactive Vital Signs Date Name Value [...] Panel - Chemistry sodium, serum 133 mmol/L 636-578 0810/08/24 potassium, serum 4.4 mmol/L 3.5-5.2 chloride, serum 95 mmol/L 98-107 carbon dioxide, venous blood 33.0 mmol/L 21.0-32.0 blood glucose 107 mg/dL 65-110 calcium, serum 8.8 mg/dL 8.5-10.1 urea nitrogen, blood 12 mg/dL 7-18 creatinine, serum 0.69 mg/dL 0.55-1.30 Lab Report: CBC, Basic Metabolic Panel - Chemistry sodium, serum 132 mmol/L 953-172 3599/10/12 potassium, serum 4.7 mmol/L 3.5-5.2 chloride, serum [...] CBC - Chemistry sodium, serum 136 mmol/L 256-168 9619/11/01 carbon dioxide, venous blood 32.1 mmol/L 21.0-32.0 [...] PANEL - Chemistry cholesterol, serum 169 mg/dL 525-084 0040/05/09 HDL cholesterol, serum 54 mg/dL > OR=46 [...] Negative Encounters Code Encounter Date Provider Facility CPT-27514 Level 3 Est. 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 Patient 20:53:25 METAL MILLING MACHINE OPERATOR Gareth Cancino MD [facility] CPT-86468 Level 3 Est. Patient 10:34:55 CDT Gareth Cancino MD [facility] CPT-07772 Level 4 Est. Patient 09:00:18 CDT Gareth Cancino MD [facility] CPT-10905 Level 3 Est. Patient 15:12:03 CDT Gareth Cancino MD [facility] CPT-61581 Level 3 Est. Patient 23:08:20 CDT Gareth Cancino MD [facility] CPT-01495 Level 4 Est. Patient 20:40:10 CDT Gareth Cancino MD [facility] CPT-07341 Level 4 Est. Patient 19:50:11 CDT Gareth Cancino MD [facility] CPT-15046 Level 3 Est. Patient 11:00:13 CDT Gareth Cancino MD [facility] CPT-67525 Level 4 Est. Patient 11:20:21 CDT Gareth Cancino MD [facility] CPT-93862 Level 4 Est. 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 Patient 09:48:04 CDT Gareth Cancino MD [facility] CPT-96388 Level 3 Est. Patient 10:13:16 CDT Gareth Cancino MD [facility] CPT-75076 Level 2 Est. Patient 18:36:56 CDT Gareth Cancino MD [facility] CPT-51342 Level 4 Est. Patient 13:50:53 CDT Gareth Cancino MD [facility] CPT-32169 Level 3 Est. Patient 14:58:33 METAL MILLING MACHINE OPERATOR Gareth Cancino MD [facility] CPT-59670 Level 4 Est. Patient 09:25:57 CDT Gareth Cancino MD [facility] CPT-14277 Level 3 Est. Patient 20:39:33 CDT Noman Edwards DO [facility] CPT-91495 Level 2 Est. Patient 13:17:39 CDT Gareth Cancino MD [facility] CPT-75487 Level 3 Est. Patient 13:37:20 CDT Gareth Cancino MD [facility] CPT-32072 Level 3 Est. Patient 18:09:08 CDT Gareth Cancino MD [facility] CPT-82173 Level 4 Est. Patient 09:59:07 CDT Gareth Cancino MD [facility] Procedures Code Procedure Name Date Entry Date Standard Description CPT-000 Give Appropriate Flu Vaccine 09:29:52 METAL MILLING MACHINE OPERATOR CPT-000 Give Appropriate Flu Vaccine 09:22:20 METAL MILLING MACHINE OPERATOR CPT-32509 TSH - LAB USE ONLY 08:11:40 METAL MILLING MACHINE OPERATOR CPT-06180 Free T4 - LAB USE ONLY 08:11:40 METAL MILLING MACHINE OPERATOR CPT-50878 Venipuncture Draw Fee 08:11:40 METAL MILLING MACHINE OPERATOR CPT-35073 UA w micro - LAB USE ONLY 14:26:22 METAL MILLING MACHINE OPERATOR CPT-G0438 Initial Annual Wellness Exam 20:53:25 METAL MILLING MACHINE OPERATOR CPT-G0009 Administration of Pneumococcal Vaccine 11:42:53 METAL MILLING MACHINE OPERATOR CPT-64754 Prevnar 13 Intramuscular Suspension 11:42:53 METAL MILLING MACHINE OPERATOR 01/07 CPT-98030 First Vx - Ix admin for Medicare patients 11:39:44 METAL MILLING MACHINE OPERATOR CPT-87435 Fluzone High-Dose Intramuscular Suspension 11:39:44 METAL MILLING MACHINE OPERATOR CPT-63017 Prevnar 13 Intramuscular Suspension 09:29:52 METAL MILLING MACHINE OPERATOR 01/07 CPT-05987 CMP - LAB USE ONLY 16:31:15 CDT CPT-17347 CBC - LAB USE ONLY 16:31:14 CDT CPT-93594 Venipuncture Draw Fee 16:31:14 CDT CPT-97268 BMP - LAB USE ONLY 14:37:27 CDT CPT-21769 CBC - LAB USE ONLY 14:37:27 CDT CPT-01704 Venipuncture Draw Fee 14:37:27 CDT CPT-TCMM Transitional Care Mgmt-Moderate 14:43:38 CDT CPT-94167 Venipuncture Draw Fee 10:33:47 CDT CPT-30713 BMP - LAB USE ONLY 10:33:46 CDT CPT-Cryo Cryotherapy 15:12:03 CDT CPT-28521 LS spine AP and Lat - XRAY USE ONLY 10:31:51 CDT 07/27 CPT-53171 Punch biopsy 1 lsn 20:40:09 CDT CPT-G0008 Administration of Influenza Virus Vaccine 10:04:48 METAL MILLING MACHINE OPERATOR CPT-67741 Fluzone High-Dose Intramuscular Suspension 10:04:48 METAL MILLING MACHINE OPERATOR CPT-73815 Ribs unilat w PA chst min 3V 10:45:40 CDT CPT-LR Lesion Removal 13:14:55 CDT CPT-Cryo Cryotherapy 13:14:55 CDT CPT-11214 Venipuncture Draw Fee 10:25:49 CDT CPT-91757 Administration single or combination vaccine inc oral 13 :22:14 METAL MILLING MACHINE OPERATOR CPT-30392 Influenza High Dose age 65+ 13:22:14 METAL MILLING MACHINE OPERATOR
--- OUTSIDE RECORDS SUMMARY | 2016-12-06 08:05 | XMS REPORT | Clinical Summary ---
Author Author Admin, HILARIA Organization [employer] Address Unknown Phone Unavailable Allergies, Adverse Reactions, [...] Generic Name NDC Status Provider Patient Instruction PREDNISONE 20 MG TAB take 3 tabs daily for 3 days, 2 tabs daily for 3 days, 1 tab daily for 3 days, 1/2 tab daily for 4 days PREDNISONE 07249123699 No Longer Active Mary Shah APRN Active LEVAQUIN 500 MG TAB 1 tablet by mouth daily for 7 days LEVOFLOXACIN 36812739892 Active Mary Shah APRN Active AZITHROMYCIN 250 MG TABS 2 po qd x 1 day, then 1 po qd x 4 days AZITHROMYCIN 40524940868 No Longer Active Danuta Modi Active AZITHROMYCIN 250 MG TABS 2 po qd x 1 day, then 1 po qd x 4 days AZITHROMYCIN 69660972133 No Longer Active Tangela Forte Active HYDROCODONE-ACETAMINOPHEN 5-325 MG TABS 1 tab by mouth every 6 hours as needed for bck pain HYDROCODONE-ACETAMINOPHEN 82150858468 No Longer Active Gareth Cancino MD Active FENTANYL 12 MCG/HR PT72 Apply to clean, dry skin and change every 72 hours FENTANYL 08991409272 Active Gareth Cancino MD Active ALPRAZOLAM 0.25 MG TAB 1 tablet by mouth q hs prn ALPRAZOLAM 85055403043 Active Gareth Cancino MD Active AZITHROMYCIN 250 MG ORAL TABS 1 tab daily AZITHROMYCIN 26864245684 No Longer Active Gareth Cancino MD Active ZITHROMAX 250 MG TAB 2 po today, then 1 po q days 2-5 AZITHROMYCIN 24510975901 No Longer Active Tangela Forte Active IPRATROPIUM-ALBUTEROL 0.5-2.5 (3) MG/3ML INH SOLN nebulize 1 vial every 6hrs prn shortness of breath IPRATROPIUM-ALBUTEROL 44854776985 Active Gareth Cancino MD Active FENTANYL 25 MCG/HR PT72 Apply to clean, dry skin and change every 72 hours FENTANYL 96293423991 No Longer Active Gareth Cancino MD Active WELLBUTRIN SR 150 MG ORAL [id number] take 1 tab po BID BUPROPION HCL 22542753986 No Longer Active Gareth Cancino MD Active ZOFRAN 4 MG ORAL TABS 1 by mouth every 6 hours prn nausea ONDANSETRON HCL 24926716398 Active Tangela Forte Active TRAMADOL HCL 50 MG TABS 1 po tid PRN TRAMADOL HCL 42001453316 Active Gareth Cancino MD Active ALPRAZOLAM 0.25 MG TAB 1/2 to 1 tablet by mouth qhs prn ALPRAZOLAM 91300473811 No Longer Active Gareth Cancino MD Active CLOBETASOL PROPIONATE 0.05 % CREA apply to hand rash bid CLOBETASOL PROPIONATE 41334961619 No Longer Active Gareth Cancino MD Active BACTROBAN 2 % CREAM Apply to affected area BID MUPIROCIN CALCIUM 78854456630 No Longer Active Gareth Cancino MD Active LISINOPRIL 20 MG TABS 1 tablet by mouth daily for high blood pressure 10/14 LISINOPRIL 15971694623 Active Mary Shah APRN Active BACTRIM DS 800-160 MG TAB 1 tab by mouth twice daily TRIMETHOPRIM-SULFAMETHOXAZOLE 39544162165 No Longer Active Gareth Cancino MD Active METOPROLOL SUCCINATE ER 100 MG [id number] 1 pill by mouth daily, for blood pressure METOPROLOL SUCCINATE 25351923782 Active Mary Shah APRN Active KEFLEX 500 MG CAP 1 po TID x 10 days CEPHALEXIN 58974990163 No Longer Active Blanca Castillo APRN Active METOPROLOL SUCCINATE 50 MG TB24 1 tablet by mouth daily METOPROLOL SUCCINATE 45283843026 No Longer Active Gareth Cancino MD Active OMEPRAZOLE 20 MG TBEC Take one by mouth daily OMEPRAZOLE 32756759330 No Longer Active Gareth Cancino MD Active OMEPRAZOLE 40 MG CPDR 1 tab po qday for acid reflux. OMEPRAZOLE 67061271123 Active Mary Shah APRN Active LEVAQUIN 500 MG TAB 1 tablet by mouth daily LEVOFLOXACIN 42838255973 No Longer Active Gareth Cancino MD Active ALEVE 220 MG TAB 2 tab po qd NAPROXEN SODIUM 94154997081 Active Gareth Cancino MD Active ASPIRIN 81 MG CHEW TAB 1 tablet by mouth daily ASPIRIN 08873803344 Active Gareth Cancino MD Active VENTOLIN HFA 108 (90 BASE) MCG/ACT AERS 1-2 puffs four times a day PRN shortness of breath ALBUTEROL SULFATE 99690422322 Active Mary Shah SENIOR BUDGET ANALYST Active CENTRUM SILVER TABS 1 TAB PO DAILY MULTIPLE VITAMINS-MINERALS 71471960305 Active Gareth Cancino MD Active VITAMIN B12 100 MCG TABS 1 TAB PO DAILY CYANOCOBALAMIN 88650350291 Active Gareth Cancino MD Active CIPRO 500 MG TABS 1 TAB PO BID CIPROFLOXACIN HCL 98242946451 No Longer Active Gareth Cancino MD Active BACTRIM DS 800-160 MG TAB 1 tab by mouth twice daily TRIMETHOPRIM-SULFAMETHOXAZOLE 78673269129 No Longer Active Gareth Cancino MD Active PREDNISONE 20 MG TAB 1 tab po BID for 3 days, then 1 tab po qday for 3 days PREDNISONE 30039911707 No Longer Active Gareth Cancino MD Active FOLIC ACID 800 MCG TABS Take one by mouth daily FOLIC ACID 87630805087 No Longer Active Gareth Cancino MD Active VITAMIN B-6 250 MG TABS Take one by mouth daily PYRIDOXINE HCL 34403711670 No Longer Active Gareth Cancino MD Active B-12 1000 MCG CAPS Take one by mouth daily CYANOCOBALAMIN 07666025608 No Longer Active Gareth Cancino MD Active DOXYCYCLINE HYCLATE 100 MG CAP 1 cap by mouth twice daily DOXYCYCLINE HYCLATE 72555939140 No Longer Active Gareth Cancino MD Active PREDNISONE 20 MG TAB 1 po bid 3 days, then 1 po q day 3 days 2011 PREDNISONE 90337080912 No Longer Active Gareth Cancino MD Active CHANTIX STARTING MONTH RUBEN 0.5 MG X 11 & 1 MG X 42 TABS 0.5mg daily for 3 days , then 0.5mg BID for 4 days, then 1mg BID VARENICLINE TARTRATE 75734058830 No Longer Active Gareth Cancino MD Active SIMVASTATIN 40 MG TABS Take one by mouth daily SIMVASTATIN 91440440164 Active Gareth Cancino MD Active TRIAMTERENE-HCTZ 37.5-25 MG CAPS Take one by mouth daily TRIAMTERENE- HCTZ 11643232599 Active Gareth Cancino MD Active CHANTIX STARTING [...] 3 days 2011 PREDNISONE 20 MG TAB 124093 PREDNISONE Inactive DOXYCYCLINE HYCLATE 100 MG CAP 1 cap by mouth twice daily DOXYCYCLINE HYCLATE 100 MG CAP 4931243 DOXYCYCLINE HYCLATE Inactive B-12 1000 MCG CAPS Take one by mouth daily B-12 1000 MCG CAPS CYANOCOBALAMIN Inactive VITAMIN B-6 250 MG TABS Take one by mouth daily VITAMIN B-6 250 MG TABS PYRIDOXINE HCL Inactive FOLIC ACID 800 MCG TABS Take one by mouth daily FOLIC ACID 800 MCG TABS 462443 FOLIC ACID Inactive CIPRO 500 MG TABS 1 TAB PO BID CIPRO 500 MG TABS 557946 CIPROFLOXACIN HCL Inactive OMEPRAZOLE 20 MG TBEC Take one by mouth daily OMEPRAZOLE 20 MG TBEC 952937 OMEPRAZOLE Inactive METOPROLOL SUCCINATE 50 MG TB24 1 tablet by mouth daily METOPROLOL SUCCINATE 50 MG TB24 METOPROLOL SUCCINATE Inactive BACTROBAN 2 % CREAM Apply to affected area BID BACTROBAN 2 % CREAM 556451 MUPIROCIN CALCIUM Inactive CLOBETASOL PROPIONATE 0.05 % CREA apply to hand rash bid CLOBETASOL PROPIONATE 0.05 % CREA 467565 CLOBETASOL PROPIONATE Inactive ALPRAZOLAM 0.25 MG TAB 1/2 to 1 tablet by mouth qhs prn ALPRAZOLAM 0.25 MG TAB 135028 ALPRAZOLAM Inactive WELLBUTRIN SR 150 MG ORAL [id number] take 1 tab po BID WELLBUTRIN SR 150 MG ORAL [id number] BUPROPION HCL Inactive AZITHROMYCIN 250 MG ORAL TABS 1 tab daily AZITHROMYCIN 250 MG ORAL TABS 6222862 AZITHROMYCIN Inactive HYDROCODONE-ACETAMINOPHEN 5-325 MG TABS 1 tab by mouth every 6 hours as needed for bck pain HYDROCODONE-ACETAMINOPHEN 5-325 MG TABS 539900 HYDROCODONE-ACETAMINOPHEN Inactive PREDNISONE 20 MG TAB 1 tab po BID for 3 days, then 1 tab po qday for 3 days PREDNISONE 20 MG TAB 821963 PREDNISONE Inactive BACTRIM DS 800-160 MG TAB 1 tab by mouth twice daily BACTRIM DS 800-160 MG TAB 310710 TRIMETHOPRIM-SULFAMETHOXAZOLE Inactive LEVAQUIN 500 MG TAB 1 tablet by mouth daily LEVAQUIN 500 MG TAB 816042 LEVOFLOXACIN Inactive KEFLEX 500 MG CAP 1 po TID x 10 days KEFLEX 500 MG CAP 628349 CEPHALEXIN Inactive BACTRIM DS 800-160 MG TAB 1 tab by mouth twice daily BACTRIM DS 800-160 MG TAB 19820425 TRIMETHOPRIM-SULFAMETHOXAZOLE Inactive FENTANYL 25 MCG/HR PT72 Apply to clean, dry skin and change every 72 hours FENTANYL 25 MCG/HR PT72 513352 FENTANYL Inactive ZITHROMAX 250 MG TAB 2 po today, then 1 po q days 2-5 ZITHROMAX 250 MG TAB 4480667 AZITHROMYCIN Inactive AZITHROMYCIN 250 MG TABS 2 po qd x 1 day, then 1 po qd x 4 days AZITHROMYCIN 250 MG TABS 7885420 AZITHROMYCIN Inactive AZITHROMYCIN 250 MG TABS 2 po qd x 1 day, then 1 po qd x 4 days AZITHROMYCIN 250 MG TABS 4771918 AZITHROMYCIN Inactive PREDNISONE 20 MG TAB take 3 tabs daily for 3 days, 2 tabs daily for 3 days, 1 tab daily for 3 days, 1/2 tab daily for 4 days PREDNISONE 20 MG TAB 020927 PREDNISONE Inactive Vital Signs Date Name Value [...] Panel - Chemistry sodium, serum 133 mmol/L 293-735 1569/08/24 potassium, serum 4.4 mmol/L 3.5-5.2 chloride, serum 95 mmol/L 98-107 carbon dioxide, venous blood 33.0 mmol/L 21.0-32.0 blood glucose 107 mg/dL 65-110 calcium, serum 8.8 mg/dL 8.5-10.1 urea nitrogen, blood 12 mg/dL 7-18 creatinine, serum 0.69 mg/dL 0.55-1.30 Lab Report: CBC, Basic Metabolic Panel - Chemistry sodium, serum 132 mmol/L 011-719 0824/10/12 potassium, serum 4.7 mmol/L 3.5-5.2 chloride, serum [...] CBC - Chemistry sodium, serum 136 mmol/L 293-890 7647/11/01 carbon dioxide, venous blood 32.1 mmol/L 21.0-32.0 [...] Negative Encounters Code Encounter Date Provider Facility CPT-95433 Level 3 Est. Patient 09:05:25 ONLINE BANKING SPECIALIST Mary Shah APRN [facility] CPT-71275 Level 3 Est. Patient 20:53:25 ONLINE BANKING SPECIALIST Gareth Cancino MD [facility] CPT-77132 Level 3 Est. Patient 10:34:55 CDT Gareth Cancino MD [facility] CPT-60920 Level 4 Est. Patient 09:00:18 CDT Gareth Cancino MD [facility] CPT-96801 Level 3 Est. Patient 15:12:03 CDT Gareth Cancino MD [facility] CPT-50461 Level 3 Est. Patient 23:08:20 CDT Gareth Cancino MD [facility] CPT-47810 Level 4 Est. Patient 20:40:10 CDT Gareth Cancino MD [facility] CPT-93790 Level 4 Est. Patient 19:50:11 CDT Gareth Cancino MD [facility] CPT-27845 Level 3 Est. Patient 11:00:13 CDT Gareth Cancino MD [facility] CPT-73409 Level 4 Est. Patient 11:20:21 CDT Gareth Cancino MD [facility]-78892 Level 4 Est. Patient 09:22:18 ONLINE BANKING SPECIALIST Gareth Cancino MD [facility] CPT-87567 Level 3 Est. Patient 09:48:04 CDT Gareth Cancino MD [facility] CPT-43290 Level 3 Est. Patient 10:13:16 CDT Gareth Cancino MD [facility] CPT-46362 Level 2 Est. Patient 18:36:56 CDT Gareth Cancino MD [facility] CPT-82791 Level 4 Est. Patient 13:50:53 CDT Gareth Cancino MD [facility] CPT-71899 Level 3 Est. Patient 14:58:33 ONLINE BANKING SPECIALIST Gareth Cancino MD [facility] CPT-67438 Level 4 Est. Patient 09:25:57 CDT Gareth Cancino MD [facility] CPT-18609 Level 3 Est. Patient 20:39:33 CDT Noman Edwards DO [facility] CPT-60207 Level 2 Est. Patient 13:17:39 CDT Gareth Cancino MD [facility] CPT-43692 Level 3 Est. Patient 13:37:20 CDT Gareth Cancino MD [facility] CPT-11521 Level 3 Est. Patient 18:09:08 CDT Gareth Cancino MD [facility] CPT-66338 Level 4 Est. Patient 09:59:07 CDT Gareth Cancino MD [facility] Procedures Code Procedure Name Date Entry Date Standard Description CPT-000 Give Appropriate Flu Vaccine 09:29:52 ONLINE BANKING SPECIALIST CPT-000 Give Appropriate Flu Vaccine 09:22:20 ONLINE BANKING SPECIALIST CPT-80439 TSH - LAB USE ONLY 08:11:40 ONLINE BANKING SPECIALIST CPT-11888 Free T4 - LAB USE ONLY 08:11:40 ONLINE BANKING SPECIALIST CPT-68564 Venipuncture Draw Fee 08:11:40 ONLINE BANKING SPECIALIST CPT-32218 UA w micro - LAB USE ONLY 14:26:22 ONLINE BANKING SPECIALIST CPT-G0438 Initial Annual Wellness Exam 20:53:25 ONLINE BANKING SPECIALIST CPT-G0009 Administration of Pneumococcal Vaccine 11:42:53 ONLINE BANKING SPECIALIST CPT-62707 Prevnar 13 Intramuscular Suspension 11:42:53 ONLINE BANKING SPECIALIST 01/07 CPT-20476 First Vx - Ix admin for Medicare patients 11:39:44 ONLINE BANKING SPECIALIST CPT-81091 Fluzone High-Dose Intramuscular Suspension 11:39:44 ONLINE BANKING SPECIALIST CPT-60093 Prevnar 13 Intramuscular Suspension 09:29:52 ONLINE BANKING SPECIALIST 01/07 CPT-12782 CMP - LAB USE ONLY 16:31:15 CDT CPT-82943 CBC - LAB USE ONLY 16:31:14 CDT CPT-93757 Venipuncture Draw Fee 16:31:14 CDT CPT-20948 BMP - LAB USE ONLY 14:37:27 CDT CPT-94512 CBC - LAB USE ONLY 14:37:27 CDT CPT-26197 Venipuncture Draw Fee 14:37:27 CDT CPT-TCMM Transitional Care Mgmt-Moderate 14:43:38 CDT CPT-13793 Venipuncture Draw Fee 10:33:47 CDT CPT-57494 BMP - LAB USE ONLY 10:33:46 CDT CPT-Cryo Cryotherapy 15:12:03 CDT CPT-75211 LS spine AP and Lat - XRAY USE ONLY 10:31:51 CDT 07/27 CPT-68809 Punch biopsy 1 lsn 20:40:09 CDT CPT-G0008 Administration of Influenza Virus Vaccine 10:04:48 ONLINE BANKING SPECIALIST CPT-04025 Fluzone High-Dose Intramuscular Suspension 10:04:48 ONLINE BANKING SPECIALIST CPT-43633 Ribs unilat w PA chst min 3V 10:45:40 CDT CPT-LR Lesion Removal 13:14:55 CDT CPT-Cryo Cryotherapy 13:14:55 CDT CPT-30086 Venipuncture Draw Fee 10:25:49 CDT CPT-01981 Administration single or combination vaccine inc oral 13 :22:14 ONLINE BANKING SPECIALIST CPT-34081 Influenza High Dose age 65+ 13:22:14 ONLINE BANKING SPECIALIST
--- OUTSIDE RECORDS SUMMARY | 2016-12-06 08:06 | XMS REPORT | Clinical Summary ---
Author Author Admin, HILARIA Organization [employer] Address Unknown Phone Unavailable Allergies, Adverse Reactions, [...] 1 po qd x 4 days AZITHROMYCIN 51904411230 Active Tangela Forte Active HYDROCODONE-ACETAMINOPHEN 5-325 MG TABS 1 tab by mouth every 6 hours as needed for bck pain HYDROCODONE-ACETAMINOPHEN 91259929423 No Longer Active Gareth Cancino MD Active FENTANYL 12 MCG/HR PT72 Apply to clean, dry skin and change every 72 hours FENTANYL 16507102824 Active Gareth Cancino MD Active ALPRAZOLAM 0.25 MG TAB 1 tablet by mouth q hs prn ALPRAZOLAM 71373346163 Active Gareth Cancino MD Active AZITHROMYCIN 250 MG ORAL TABS 1 tab daily AZITHROMYCIN 61162629612 No Longer Active Gareth Cancino MD Active ZITHROMAX 250 MG TAB 2 po today, then 1 po q days 2-5 AZITHROMYCIN 25464612439 No Longer Active Tangela Forte Active IPRATROPIUM-ALBUTEROL 0.5-2.5 (3) MG/3ML INH SOLN nebulize 1 vial every 6hrs prn shortness of breath IPRATROPIUM-ALBUTEROL 89463529086 Active Gareth Cancino MD Active FENTANYL 25 MCG/HR PT72 Apply to clean, dry skin and change every 72 hours FENTANYL 94543414192 No Longer Active Gareth Cancino MD Active WELLBUTRIN SR 150 MG ORAL [id number] take 1 tab po BID BUPROPION HCL 77410298879 No Longer Active Gareth Cancino MD Active ZOFRAN 4 MG ORAL TABS 1 by mouth every 6 hours prn nausea ONDANSETRON HCL 83752176137 Active Tangela Forte Active TRAMADOL HCL 50 MG TABS 1 po tid PRN TRAMADOL HCL 89739426479 Active Gareth Cancino MD Active ALPRAZOLAM 0.25 MG TAB 1/2 to 1 tablet by mouth qhs prn ALPRAZOLAM 31418872080 No Longer Active Gareth Cancino MD Active CLOBETASOL PROPIONATE 0.05 % CREA apply to hand rash bid CLOBETASOL PROPIONATE 59073727875 No Longer Active Gareth Cancino MD Active BACTROBAN 2 % CREAM Apply to affected area BID MUPIROCIN CALCIUM 50851302289 No Longer Active Gareth Cancino MD Active LISINOPRIL 20 MG TABS 1 tablet by mouth daily for high blood pressure 10/14 LISINOPRIL 17175539924 Active Gareth Cancino MD Active BACTRIM DS 800-160 MG TAB 1 tab by mouth twice daily TRIMETHOPRIM-SULFAMETHOXAZOLE 18469082941 No Longer Active Gareth Cancino MD Active METOPROLOL SUCCINATE ER 100 MG [id number] 1 pill by mouth daily, for blood pressure METOPROLOL SUCCINATE 23041941923 Active Gareth Cancino MD Active KEFLEX 500 MG CAP 1 po TID x 10 days CEPHALEXIN 09030782205 No Longer Active Blanca Castillo APRN Active METOPROLOL SUCCINATE 50 MG TB24 1 tablet by mouth daily METOPROLOL SUCCINATE 28787608963 No Longer Active Gareth Cnacino MD Active OMEPRAZOLE 20 MG TBEC Take one by mouth daily OMEPRAZOLE 84198215999 No Longer Active Gareth Cancino MD Active OMEPRAZOLE 40 MG CPDR 1 tab po qday for acid reflux. OMEPRAZOLE 40104698054 Active Mary Shah APRN Active LEVAQUIN 500 MG TAB 1 tablet by mouth daily LEVOFLOXACIN 15645935945 No Longer Active Gareth Cancino MD Active ALEVE 220 MG TAB 2 tab po qd NAPROXEN SODIUM 24692673357 Active Gareth Cancino MD Active ASPIRIN 81 MG CHEW TAB 1 tablet by mouth daily ASPIRIN 80404676083 Active Gareth Cancino MD Active VENTOLIN HFA 108 (90 BASE) MCG/ACT AERS 1-2 puffs four times a day PRN shortness of breath ALBUTEROL SULFATE 82989098677 Active Mary Shah APRN Active CENTRUM SILVER TABS 1 TAB PO DAILY MULTIPLE VITAMINS-MINERALS 39838526758 Active Gareth Cancino MD Active VITAMIN B12 100 MCG TABS 1 TAB PO DAILY CYANOCOBALAMIN 85001822542 Active Gareth Cancino MD Active CIPRO 500 MG TABS 1 TAB PO BID CIPROFLOXACIN HCL 34371041835 No Longer Active Gareth Cancino MD Active BACTRIM DS 800-160 MG TAB 1 tab by mouth twice daily TRIMETHOPRIM-SULFAMETHOXAZOLE 23820943257 No Longer Active Gareth Cancino MD Active PREDNISONE 20 MG TAB 1 tab po BID for 3 days, then 1 tab po qday for 3 days PREDNISONE 25238074220 No Longer Active Gareth Cancino MD Active FOLIC ACID 800 MCG TABS Take one by mouth daily FOLIC ACID 76200559144 No Longer Active Gareth Cancino MD Active VITAMIN B-6 250 MG TABS Take one by mouth daily PYRIDOXINE HCL 23695979667 No Longer Active Gareth Cancino MD Active B-12 1000 MCG CAPS Take one by mouth daily CYANOCOBALAMIN 00296055108 No Longer Active Gareth Cancino MD Active DOXYCYCLINE HYCLATE 100 MG CAP 1 cap by mouth twice daily DOXYCYCLINE HYCLATE 80170831580 No Longer Active Gareth Cancino MD Active PREDNISONE 20 MG TAB 1 po bid 3 days, then 1 po q day 3 days 2011 PREDNISONE 67391132634 No Longer Active Gareth Cancino MD Active CHANTIX STARTING MONTH RUBEN 0.5 MG X 11 & 1 MG X 42 TABS 0.5mg daily for 3 days , then 0.5mg BID for 4 days, then 1mg BID VARENICLINE TARTRATE 86980341719 No Longer Active Gareth Cancino MD Active SIMVASTATIN 40 MG TABS Take one by mouth daily SIMVASTATIN 87480363911 Active Gareth Cancino MD Active TRIAMTERENE-HCTZ 37.5-25 MG CAPS Take one by mouth daily TRIAMTERENE- HCTZ 19249898113 Active Gareth Cancino MD Active CHANTIX STARTING [...] 3 days 2011 PREDNISONE 20 MG TAB 590165 PREDNISONE Inactive DOXYCYCLINE HYCLATE 100 MG CAP 1 cap by mouth twice daily DOXYCYCLINE HYCLATE 100 MG CAP 1808830 DOXYCYCLINE HYCLATE Inactive B-12 1000 MCG CAPS Take one by mouth daily B-12 1000 MCG CAPS CYANOCOBALAMIN Inactive VITAMIN B-6 250 MG TABS Take one by mouth daily VITAMIN B-6 250 MG TABS PYRIDOXINE HCL Inactive FOLIC ACID 800 MCG TABS Take one by mouth daily FOLIC ACID 800 MCG TABS 580192 FOLIC ACID Inactive CIPRO 500 MG TABS 1 TAB PO BID CIPRO 500 MG TABS 217311 CIPROFLOXACIN HCL Inactive OMEPRAZOLE 20 MG TBEC Take one by mouth daily OMEPRAZOLE 20 MG TBEC 123317 OMEPRAZOLE Inactive METOPROLOL SUCCINATE 50 MG TB24 1 tablet by mouth daily METOPROLOL SUCCINATE 50 MG TB24 METOPROLOL SUCCINATE Inactive BACTROBAN 2 % CREAM Apply to affected area BID BACTROBAN 2 % CREAM 540697 MUPIROCIN CALCIUM Inactive CLOBETASOL PROPIONATE 0.05 % CREA apply to hand rash bid CLOBETASOL PROPIONATE 0.05 % CREA 932878 CLOBETASOL PROPIONATE Inactive ALPRAZOLAM 0.25 MG TAB 1/2 to 1 tablet by mouth qhs prn ALPRAZOLAM 0.25 MG TAB 432901 ALPRAZOLAM Inactive WELLBUTRIN SR 150 MG ORAL [id number] take 1 tab po BID WELLBUTRIN SR 150 MG ORAL [id number] BUPROPION HCL Inactive AZITHROMYCIN 250 MG ORAL TABS 1 tab daily AZITHROMYCIN 250 MG ORAL TABS 3680487 AZITHROMYCIN Inactive HYDROCODONE-ACETAMINOPHEN 5-325 MG TABS 1 tab by mouth every 6 hours as needed for bck pain HYDROCODONE-ACETAMINOPHEN 5-325 MG TABS 023530 HYDROCODONE-ACETAMINOPHEN Inactive PREDNISONE 20 MG TAB 1 tab po BID for 3 days, then 1 tab po qday for 3 days PREDNISONE 20 MG TAB 241403 PREDNISONE Inactive BACTRIM DS 800-160 MG TAB 1 tab by mouth twice daily BACTRIM DS 800-160 MG TAB 063090 TRIMETHOPRIM-SULFAMETHOXAZOLE Inactive LEVAQUIN 500 MG TAB 1 tablet by mouth daily LEVAQUIN 500 MG TAB 864162 LEVOFLOXACIN Inactive KEFLEX 500 MG CAP 1 po TID x 10 days KEFLEX 500 MG CAP 831757 CEPHALEXIN Inactive BACTRIM DS 800-160 MG TAB 1 tab by mouth twice daily BACTRIM DS 800-160 MG TAB 039500 TRIMETHOPRIM-SULFAMETHOXAZOLE Inactive FENTANYL 25 MCG/HR PT72 Apply to clean, dry skin and change every 72 hours FENTANYL 25 MCG/HR PT72 358452 FENTANYL Inactive ZITHROMAX 250 MG TAB 2 po today, then 1 po q days 2-5 ZITHROMAX 250 MG TAB 0216181 AZITHROMYCIN Inactive Vital Signs Date Name Value [...] Panel - Chemistry sodium, serum 133 mmol/L 399-960 6923/08/24 potassium, serum 4.4 mmol/L 3.5-5.2 chloride, serum 95 mmol/L 98-107 carbon dioxide, venous blood 33.0 mmol/L 21.0-32.0 blood glucose 107 mg/dL 65-110 calcium, serum 8.8 mg/dL 8.5-10.1 urea nitrogen, blood 12 mg/dL 7-18 creatinine, serum 0.69 mg/dL 0.55-1.30 Lab Report: CBC, Basic Metabolic Panel - Chemistry sodium, serum 132 mmol/L 538-441 4175/10/12 potassium, serum 4.7 mmol/L 3.5-5.2 chloride, serum [...] CBC - Chemistry sodium, serum 136 mmol/L 764-780 4100/11/01 carbon dioxide, venous blood 32.1 mmol/L 21.0-32.0 [...] Negative Encounters Code Encounter Date Provider Facility CPT-44641 Level 3 Est. Patient 20:53:25 BUILDING DISMANTLER Gareth Cancino MD [facility] CPT-71794 Level 3 Est. Patient 10:34:55 CDT Gareth Cancino MD [facility] CPT-30366 Level 4 Est. Patient 09:00:18 CDT Gareth Cancino MD [facility] CPT-68457 Level 3 Est. Patient 15:12:03 CDT Gareth Cancino MD [facility]-37609 Level 3 Est. Patient 23:08:20 CDT Gareth Cancino MD [facility] CPT-67549 Level 4 Est. Patient 20:40:10 CDT Gareth Cancino MD [facility] CPT-60187 Level 4 Est. Patient 19:50:11 CDT Gareth Cancino MD [facility] CPT-48247 Level 3 Est. Patient 11:00:13 CDT Gareth Cancino MD [facility] [place]177 Level 4 Est. Patient 11:20:21 CDT Gareth Cancino MD [facility] [place]66137 Level 4 Est. Patient 09:22:18 BUILDING DISMANTLER Gareth Cancino MD [facility] CPT-85441 Level 3 Est. Patient 09:48:04 CDT Gareth Cancino MD [facility] CPT-54164 Level 3 Est. Patient 10:13:16 CDT Gareth Cancino MD [facility] CPT-17672 Level 2 Est. Patient 18:36:56 CDT Gareth Cancino MD [facility] CPT-57828 Level 4 Est. Patient 13:50:53 CDT Gareth Cancino MD [facility] CPT-43043 Level 3 Est. Patient 14:58:33 BUILDING DISMANTLER Gareth Cancino MD [facility] [place]-88192 Level 4 Est. Patient 09:25:57 CDT Gareth Cancino MD [facility] [place]-08674 Level 3 Est. Patient 20:39:33 CDT Noman Edwards DO [facility] CPT-33881 Level 2 Est. Patient 13:17:39 CDT Gareth Cancino MD [facility] CPT-53034 Level 3 Est. Patient 13:37:20 CDT Gareth Cancino MD [facility] CPT-30217 Level 3 Est. Patient 18:09:08 CDT Gareth Cancino MD [facility] CPT-17500 Level 4 Est. Patient 09:59:07 CDT Gareth Cancino MD [facility] Procedures Code Procedure Name Date Entry Date Standard Description CPT-23059 TSH - LAB USE ONLY 08:11:40 BUILDING DISMANTLER CPT-28070 Free T4 - LAB USE ONLY 08:11:40 BUILDING DISMANTLER CPT-38406 Venipuncture Draw Fee 08:11:40 BUILDING DISMANTLER CPT-33915 UA w micro - LAB USE ONLY 14:26:22 BUILDING DISMANTLER CPT-G0438 Initial Annual Wellness Exam 20:53:25 BUILDING DISMANTLER CPT-G0009 Administration of Pneumococcal Vaccine 11:42:53 BUILDING DISMANTLER CPT-05134 Prevnar 13 Intramuscular Suspension 11:42:53 BUILDING DISMANTLER 01/07 CPT-22399 First Vx - Ix admin for Medicare patients 11:39:44 BUILDING DISMANTLER CPT-90736 Fluzone High-Dose Intramuscular Suspension 11:39:44 BUILDING DISMANTLER CPT-49223 Prevnar 13 Intramuscular Suspension 09:29:52 BUILDING DISMANTLER 01/07 CPT-93619 CMP - LAB USE ONLY 16:31:15 CDT CPT-15975 CBC - LAB USE ONLY 16:31:14 CDT CPT-94570 Venipuncture Draw Fee 16:31:14 CDT CPT-05186 BMP - LAB USE ONLY 14:37:27 CDT CPT-47151 CBC - LAB USE ONLY 14:37:27 CDT CPT-77933 Venipuncture Draw Fee 14:37:27 CDT CPT-TCMM Transitional Care Mgmt-Moderate 14:43:38 CDT CPT-15591 Venipuncture Draw Fee 10:33:47 CDT CPT-31551 BMP - LAB USE ONLY 10:33:46 CDT CPT-Cryo Cryotherapy 15:12:03 CDT CPT-58540 LS spine AP and Lat - XRAY USE ONLY 10:31:51 CDT 07/27 CPT-36715 Punch biopsy 1 lsn 20:40:09 CDT CPT-G0008 Administration of Influenza Virus Vaccine 10:04:48 BUILDING DISMANTLER CPT-26084 Fluzone High-Dose Intramuscular Suspension 10:04:48 BUILDING DISMANTLER CPT-56924 Ribs unilat w PA chst min 3V 10:45:40 CDT CPT-LR Lesion Removal 13:14:55 CDT CPT-Cryo Cryotherapy 13:14:55 CDT CPT-42003 Venipuncture Draw Fee 10:25:49 CDT CPT-71513 Administration single or combination vaccine inc oral 13 :22:14 BUILDING DISMANTLER CPT-10384 Influenza High Dose age 65+ 13:22:14 BUILDING DISMANTLER
--- OUTSIDE RECORDS SUMMARY | 2016-12-06 08:07 | XMS REPORT | Clinical Summary ---
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 Unspecified disorder of skin and subcutaneous tissue Folliculitis 704.8 Active Gareth Cancino MD Other specified diseases of hair and hair follicles Low back pain, chronic 724.2 Active Gareth Cancino MD Lumbago Frequency of urination 788.41 Active 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 Urinary frequency Actinic keratosis 702.0 Active Gareth Cancino MD Actinic keratosis Bronchitis-Acute ICD-466.0 Inactive Gareth Cancino MD Medication List Medication Instructions Start Date Stop Date Generic Name NDC Status Provider Patient Instruction ZOFRAN 4 MG ORAL TABS 1 by mouth every 6 hours prn nausea ONDANSETRON HCL 64285679357 Active Tangela Forte Active TRAMADOL HCL 50 MG TABS 1 po tid PRN TRAMADOL HCL 14061310749 Active Danuta Modi Active HYDROCODONE-ACETAMINOPHEN 5-325 MG TABS 1 tab by mouth every 6 hours as needed for bck pain HYDROCODONE-ACETAMINOPHEN 64227497599 Active Gareth Cancino MD Active ALPRAZOLAM 0.25 MG TAB 1/2 to 1 tablet by mouth qhs prn ALPRAZOLAM 70329856117 No Longer Active Gareth Cancino MD Active CLOBETASOL PROPIONATE 0.05 % CREA apply to hand rash bid CLOBETASOL PROPIONATE 56312297186 No Longer Active Gareth Cancino MD Active BACTROBAN 2 % CREAM Apply to affected area BID MUPIROCIN CALCIUM 77089623784 No Longer Active Gareth Cancino MD Active LISINOPRIL 20 MG TABS 1 tablet by mouth daily for high blood pressure 10/14 LISINOPRIL 41448303618 Active Gareth Cancino MD Active BACTRIM DS 800-160 MG TAB 1 tab by mouth twice daily TRIMETHOPRIM-SULFAMETHOXAZOLE 38470952499 No Longer Active Gareth Cancino MD Active METOPROLOL SUCCINATE ER 100 MG [id number] 1 pill by mouth daily, for blood pressure METOPROLOL SUCCINATE 12452969251 Active Gareth Cancino MD Active KEFLEX 500 MG CAP 1 po TID x 10 days CEPHALEXIN 68896746385 No Longer Active Jillchaim Castillo TANK INSULATOR RUBBER Active WELLBUTRIN SR 150 MG ORAL [id number] take 1 tab po BID BUPROPION HCL 67182091151 Active Gareth Cancino MD Active METOPROLOL SUCCINATE 50 MG TB24 1 tablet by mouth daily METOPROLOL SUCCINATE 54356431583 No Longer Active Gareth Cancino MD Active OMEPRAZOLE 20 MG TBEC Take one by mouth daily OMEPRAZOLE 46827088568 No Longer Active Gareth Cancino MD Active OMEPRAZOLE 40 MG CPDR 1 tab po qday for acid reflux. OMEPRAZOLE 24629485465 Active Mary Shah APRN Active LEVAQUIN 500 MG TAB 1 tablet by mouth daily LEVOFLOXACIN 92816505188 No Longer Active Gareth Cancino MD Active ALEVE 220 MG TAB 2 tab po qd NAPROXEN SODIUM 67264085057 Active Gareth Cancino MD Active ASPIRIN 81 MG CHEW TAB 1 tablet by mouth daily ASPIRIN 36691540827 Active Gareth Cancino MD Active VENTOLIN HFA 108 (90 BASE) MCG/ACT AERS 1-2 puffs four times a day PRN shortness of breath ALBUTEROL SULFATE 83243295653 Active Mary Shah APRN Active CENTRUM SILVER TABS 1 TAB PO DAILY MULTIPLE VITAMINS-MINERALS 93058012463 Active Gareth Cancino MD Active VITAMIN B12 100 MCG TABS 1 TAB PO DAILY CYANOCOBALAMIN 93028780150 Active Gareth Cancino MD Active CIPRO 500 MG TABS 1 TAB PO BID CIPROFLOXACIN HCL 93377342204 No Longer Active Gareth Cancino MD Active BACTRIM DS 800-160 MG TAB 1 tab by mouth twice daily TRIMETHOPRIM-SULFAMETHOXAZOLE 96620929303 No Longer Active Gareth Cancino MD Active PREDNISONE 20 MG TAB 1 tab po BID for 3 days, then 1 tab po qday for 3 days PREDNISONE 95164717528 No Longer Active Gareth Cancino MD Active FOLIC ACID 800 MCG TABS Take one by mouth daily FOLIC ACID 19680436695 No Longer Active Gareth Cancino MD Active VITAMIN B-6 250 MG TABS Take one by mouth daily PYRIDOXINE HCL 47632215715 No Longer Active Gareth Cancino MD Active B-12 1000 MCG CAPS Take one by mouth daily CYANOCOBALAMIN 66444401841 No Longer Active Gareth Cancino MD Active DOXYCYCLINE HYCLATE 100 MG CAP 1 cap by mouth twice daily DOXYCYCLINE HYCLATE 44040425096 No Longer Active Gareth Cancino MD Active PREDNISONE 20 MG TAB 1 po bid 3 days, then 1 po q day 3 days 2011 PREDNISONE 82303483317 No Longer Active Gareth Cancino MD Active CHANTIX STARTING MONTH RUBEN 0.5 MG X 11 & 1 MG X 42 TABS 0.5mg daily for 3 days , then 0.5mg BID for 4 days, then 1mg BID VARENICLINE TARTRATE 86933146980 No Longer Active Gareth Cancino MD Active SIMVASTATIN 40 MG TABS Take one by mouth daily SIMVASTATIN 58546105500 Active Gareth Cancino MD Active TRIAMTERENE-HCTZ 37.5-25 MG CAPS Take one by mouth daily TRIAMTERENE- HCTZ 50928535577 Active Gareth Cancino MD Active CHANTIX STARTING [...] 3 days 2011 PREDNISONE 20 MG TAB 678195 PREDNISONE Inactive DOXYCYCLINE HYCLATE 100 MG CAP 1 cap by mouth twice daily DOXYCYCLINE HYCLATE 100 MG CAP 9402818 DOXYCYCLINE HYCLATE Inactive B-12 1000 MCG CAPS Take one by mouth daily B-12 1000 MCG CAPS CYANOCOBALAMIN Inactive VITAMIN B-6 250 MG TABS Take one by mouth daily VITAMIN B-6 250 MG TABS PYRIDOXINE HCL Inactive FOLIC ACID 800 MCG TABS Take one by mouth daily FOLIC ACID 800 MCG TABS 815782 FOLIC ACID Inactive CIPRO 500 MG TABS 1 TAB PO BID CIPRO 500 MG TABS 806222 CIPROFLOXACIN HCL Inactive OMEPRAZOLE 20 MG TBEC Take one by mouth daily OMEPRAZOLE 20 MG TBEC 821470 OMEPRAZOLE Inactive METOPROLOL SUCCINATE 50 MG TB24 1 tablet by mouth daily METOPROLOL SUCCINATE 50 MG TB24 METOPROLOL SUCCINATE Inactive BACTROBAN 2 % CREAM Apply to affected area BID BACTROBAN 2 % CREAM 424925 MUPIROCIN CALCIUM Inactive CLOBETASOL PROPIONATE 0.05 % CREA apply to hand rash bid CLOBETASOL PROPIONATE 0.05 % CREA 187289 CLOBETASOL PROPIONATE Inactive ALPRAZOLAM 0.25 MG TAB 1/2 to 1 tablet by mouth qhs prn ALPRAZOLAM 0.25 MG TAB 505940 ALPRAZOLAM Inactive PREDNISONE 20 MG TAB 1 tab po BID for 3 days, then 1 tab po qday for 3 days PREDNISONE 20 MG TAB 777130 PREDNISONE Inactive BACTRIM DS 800-160 MG TAB 1 tab by mouth twice daily BACTRIM DS 800-160 MG TAB 525235 TRIMETHOPRIM-SULFAMETHOXAZOLE Inactive LEVAQUIN 500 MG TAB 1 tablet by mouth daily LEVAQUIN 500 MG TAB 237109 LEVOFLOXACIN Inactive KEFLEX 500 MG CAP 1 po TID x 10 days KEFLEX 500 MG CAP 658074 CEPHALEXIN Inactive BACTRIM DS 800-160 MG TAB [...] Panel - Chemistry sodium, serum 133 mmol/L 182-842 1637/08/24 potassium, serum 4.4 mmol/L 3.5-5.2 chloride, serum 95 mmol/L 98-107 carbon dioxide, venous blood 33.0 mmol/L 21.0-32.0 blood glucose 107 mg/dL 65-110 calcium, serum 8.8 mg/dL 8.5-10.1 urea nitrogen, blood 12 mg/dL 7-18 creatinine, serum 0.69 mg/dL 0.55-1.30 Lab Report: Lipid Panel, Comp. Metabolic Panel, CBC W/DIFF, MICROALB/CRE ... - Chemistry albumin/creatinine ratio, urine < 30 mg/g mg/g{creat} 0-29 cholesterol, serum 195 mg/dL 761-336 2402/12/02 triglyceride, serum, fasting 74 mg/dL 30-200 HDL cholesterol, serum 52 mg/dL 32-96 LDL cholesterol, serum 128 mg/dL 0-130 sodium, serum 134 mmol/L 503-777 4080/12/02 carbon dioxide, venous blood 30.3 mmol/L 21.0-32.0 [...] 5.0-8.5 Encounters Code Encounter Date Provider Facility CPT-12907 Level 4 Est. Patient 09:00:18 CDT Gareth Cancino MD [facility] CPT-65461 Level 3 Est. Patient 15:12:03 CDT Gareth Cancino MD [facility] CPT-53106 Level 3 Est. Patient 23:08:20 CDT Graeth Cancino MD [facility] CPT-95598 Level 4 Est. Patient 20:40:10 CDT Gareth Cancino MD [facility] CPT-28953 Level 4 Est. Patient 19:50:11 CDT Gareth Cancino MD [facility] CPT-86381 Level 3 Est. Patient 11:00:13 CDT Gareth Cancino MD [facility] CPT-29213 Level 4 Est. Patient 11:20:21 CDT Gareth Cancino MD [facility] CPT-52856 Level 4 Est. Patient 09:22:18 SAP BW CONSULTANT Gareth Cancino MD [facility] CPT-81611 Level 3 Est. Patient 09:48:04 CDT Gareth Cancino MD [facility] CPT-63532 Level 3 Est. Patient 10:13:16 CDT Gareth Cancino MD [facility] CPT-14106 Level 2 Est. Patient 18:36:56 CDT Gareth Cancino MD [facility] CPT-94392 Level 4 Est. Patient 13:50:53 CDT Gareth Cancino MD [facility] CPT-85576 Level 3 Est. Patient 14:58:33 SAP BW CONSULTANT Gareth Cancino MD [facility] CPT-23103 Level 4 Est. Patient 09:25:57 CDT Gareth Cancino MD [facility] CPT-72586 Level 3 Est. Patient 20:39:33 CDT Noman Edwards DO [facility] CPT-32451 Level 2 Est. Patient 13:17:39 CDT Gareth Cancino MD [facility] CPT-20312 Level 3 Est. Patient 13:37:20 CDT Gareth Cancino MD [facility] CPT-01143 Level 3 Est. Patient 18:09:08 CDT Gareth Cancino MD [facility] CPT-07349 Level 4 Est. Patient 09:59:07 CDT Gareth Cancino MD [facility] Procedures Code Procedure Name Date Entry Date Standard Description CPT-51959 Venipuncture Draw Fee 10:33:47 CDT CPT-97185 BMP - LAB USE ONLY 10:33:46 CDT CPT-Cryo Cryotherapy 15:12:03 CDT CPT-19613 LS spine AP and Lat - XRAY USE ONLY 10:31:51 CDT 07/27 CPT-86834 Punch biopsy 1 lsn 20:40:09 CDT CPT-G0008 Administration of Influenza Virus Vaccine 10:04:48 SAP BW CONSULTANT CPT-66719 Fluzone High-Dose Intramuscular Suspension 10:04:48 SAP BW CONSULTANT CPT-13152 Ribs unilat w PA chst min 3V 10:45:40 CDT CPT-LR Lesion Removal 13:14:55 CDT CPT-Cryo Cryotherapy 13:14:55 CDT CPT-63437 Venipuncture Draw Fee 10:25:49 CDT CPT-45409 Administration single or combination vaccine inc oral 13 :22:14 SAP BW CONSULTANT CPT-90038 Influenza High Dose age 65+ 13:22:14 SAP BW CONSULTANT
--- OUTSIDE RECORDS SUMMARY | 2016-12-06 08:08 | XMS REPORT | Clinical Summary ---
Author Author Admin, HILARIA Organization [employer] Address Unknown Phone Unavailable Allergies, Adverse Reactions, [...] 1/2 tab daily for 4 days PREDNISONE 32623071138 Active Mary Pablo [employer]ING [employer]ES Active LEVAQUIN 500 MG TAB 1 tablet by mouth daily for 7 days LEVOFLOXACIN 01229534842 Active Mary Shah APRN Active AZITHROMYCIN 250 MG TABS 2 po qd x 1 day, then 1 po qd x 4 days AZITHROMYCIN 29440313243 No Longer Active Danuta Modi Active AZITHROMYCIN 250 MG TABS 2 po qd x 1 day, then 1 po qd x 4 days AZITHROMYCIN 48243246235 No Longer Active Tangela Forte Active HYDROCODONE-ACETAMINOPHEN 5-325 MG TABS 1 tab by mouth every 6 hours as needed for bck pain HYDROCODONE-ACETAMINOPHEN 59600350126 No Longer Active Gareth Cancino MD Active FENTANYL 12 MCG/HR PT72 Apply to clean, dry skin and change every 72 hours FENTANYL 96865153336 Active Gareth Cancino MD Active ALPRAZOLAM 0.25 MG TAB 1 tablet by mouth q hs prn ALPRAZOLAM 92670916462 Active Gareth Cancino MD Active AZITHROMYCIN 250 MG ORAL TABS 1 tab daily AZITHROMYCIN 21812811261 No Longer Active Gareth Cancino MD Active ZITHROMAX 250 MG TAB 2 po today, then 1 po q days 2-5 AZITHROMYCIN 05557013250 No Longer Active Tangela Forte Active IPRATROPIUM-ALBUTEROL 0.5-2.5 (3) MG/3ML INH SOLN nebulize 1 vial every 6hrs prn shortness of breath IPRATROPIUM-ALBUTEROL 14221411552 Active Gareth Cancino MD Active FENTANYL 25 MCG/HR PT72 Apply to clean, dry skin and change every 72 hours FENTANYL 36256077732 No Longer Active Gareth Cancino MD Active WELLBUTRIN SR 150 MG ORAL [id number] take 1 tab po BID BUPROPION HCL 10954647062 No Longer Active Gareth Cancino MD Active ZOFRAN 4 MG ORAL TABS 1 by mouth every 6 hours prn nausea ONDANSETRON HCL 78341052920 Active Tangela Forte Active TRAMADOL HCL 50 MG TABS 1 po tid PRN TRAMADOL HCL 54262401709 Active Gareth Cancino MD Active ALPRAZOLAM 0.25 MG TAB 1/2 to 1 tablet by mouth qhs prn ALPRAZOLAM 53955575473 No Longer Active Gareth Cancino MD Active CLOBETASOL PROPIONATE 0.05 % CREA apply to hand rash bid CLOBETASOL PROPIONATE 82842681556 No Longer Active Gareth Cancino MD Active BACTROBAN 2 % CREAM Apply to affected area BID MUPIROCIN CALCIUM 35031777125 No Longer Active Gareth Cancino MD Active LISINOPRIL 20 MG TABS 1 tablet by mouth daily for high blood pressure 10/14 LISINOPRIL 17855538385 Active Mary Shah APRN Active BACTRIM DS 800-160 MG TAB 1 tab by mouth twice daily TRIMETHOPRIM-SULFAMETHOXAZOLE 01604761156 No Longer Active Gareth Cancino MD Active METOPROLOL SUCCINATE ER 100 MG [id number] 1 pill by mouth daily, for blood pressure METOPROLOL SUCCINATE 86852931574 Active Mary Shah APRN Active KEFLEX 500 MG CAP 1 po TID x 10 days CEPHALEXIN 69114742452 No Longer Active Blanca Castillo APRN Active METOPROLOL SUCCINATE 50 MG TB24 1 tablet by mouth daily METOPROLOL SUCCINATE 22435568882 No Longer Active Gareht Cancino MD Active OMEPRAZOLE 20 MG TBEC Take one by mouth daily OMEPRAZOLE 37914722319 No Longer Active Gareth Cancino MD Active OMEPRAZOLE 40 MG CPDR 1 tab po qday for acid reflux. OMEPRAZOLE 47953410866 Active Mary Shah APRN Active LEVAQUIN 500 MG TAB 1 tablet by mouth daily LEVOFLOXACIN 71295293925 No Longer Active Gareth Cancino MD Active ALEVE 220 MG TAB 2 tab po qd NAPROXEN SODIUM 41340307797 Active Gareth Cancino MD Active ASPIRIN 81 MG CHEW TAB 1 tablet by mouth daily ASPIRIN 66187617376 Active Gareth Cancino MD Active VENTOLIN HFA 108 (90 BASE) MCG/ACT AERS 1-2 puffs four times a day PRN shortness of breath ALBUTEROL SULFATE 38540410041 Active Mary Shah [employer] Active CENTRUM SILVER TABS 1 TAB PO DAILY MULTIPLE VITAMINS-MINERALS 19664024428 Active Gareth Cancino MD Active VITAMIN B12 100 MCG TABS 1 TAB PO DAILY CYANOCOBALAMIN 21255676248 Active Gareth Cancino MD Active CIPRO 500 MG TABS 1 TAB PO BID CIPROFLOXACIN HCL 39011488231 No Longer Active Gareth Cancino MD Active BACTRIM DS 800-160 MG TAB 1 tab by mouth twice daily TRIMETHOPRIM-SULFAMETHOXAZOLE 03267030144 No Longer Active Gareth Cancino MD Active PREDNISONE 20 MG TAB 1 tab po BID for 3 days, then 1 tab po qday for 3 days PREDNISONE 48898615055 No Longer Active Gareth Cancino MD Active FOLIC ACID 800 MCG TABS Take one by mouth daily FOLIC ACID 33399949180 No Longer Active Gareth Cancino MD Active VITAMIN B-6 250 MG TABS Take one by mouth daily PYRIDOXINE HCL 76277100541 No Longer Active Gareth Cancino MD Active B-12 1000 MCG CAPS Take one by mouth daily CYANOCOBALAMIN 34369785042 No Longer Active Gareth Cancino MD Active DOXYCYCLINE HYCLATE 100 MG CAP 1 cap by mouth twice daily DOXYCYCLINE HYCLATE 77256858633 No Longer Active Gareth Cancino MD Active PREDNISONE 20 MG TAB 1 po bid 3 days, then 1 po q day 3 days 2011 PREDNISONE 20655897289 No Longer Active Gareth Cancino MD Active CHANTIX STARTING MONTH RUBEN 0.5 MG X 11 & 1 MG X 42 TABS 0.5mg daily for 3 days , then 0.5mg BID for 4 days, then 1mg BID VARENICLINE TARTRATE 93438047311 No Longer Active Gareth Cancino MD Active SIMVASTATIN 40 MG TABS Take one by mouth daily SIMVASTATIN 17356349042 Active Gareth Cancino MD Active TRIAMTERENE-HCTZ 37.5-25 MG CAPS Take one by mouth daily TRIAMTERENE- HCTZ 84665743090 Active Gareth Cancino MD Active CHANTIX STARTING [...] 3 days 2011 PREDNISONE 20 MG TAB 299205 PREDNISONE Inactive DOXYCYCLINE HYCLATE 100 MG CAP 1 cap by mouth twice daily DOXYCYCLINE HYCLATE 100 MG CAP 9062691 DOXYCYCLINE HYCLATE Inactive B-12 1000 MCG CAPS Take one by mouth daily B-12 1000 MCG CAPS CYANOCOBALAMIN Inactive VITAMIN B-6 250 MG TABS Take one by mouth daily VITAMIN B-6 250 MG TABS PYRIDOXINE HCL Inactive FOLIC ACID 800 MCG TABS Take one by mouth daily FOLIC ACID 800 MCG TABS 609241 FOLIC ACID Inactive CIPRO 500 MG TABS 1 TAB PO BID CIPRO 500 MG TABS 157996 CIPROFLOXACIN HCL Inactive OMEPRAZOLE 20 MG TBEC Take one by mouth daily OMEPRAZOLE 20 MG TBEC 859499 OMEPRAZOLE Inactive METOPROLOL SUCCINATE 50 MG TB24 1 tablet by mouth daily METOPROLOL SUCCINATE 50 MG TB24 METOPROLOL SUCCINATE Inactive BACTROBAN 2 % CREAM Apply to affected area BID BACTROBAN 2 % CREAM 754211 MUPIROCIN CALCIUM Inactive CLOBETASOL PROPIONATE 0.05 % CREA apply to hand rash bid CLOBETASOL PROPIONATE 0.05 % CREA 239777 CLOBETASOL PROPIONATE Inactive ALPRAZOLAM 0.25 MG TAB 1/2 to 1 tablet by mouth qhs prn ALPRAZOLAM 0.25 MG TAB 905526 ALPRAZOLAM Inactive WELLBUTRIN SR 150 MG ORAL [id number] take 1 tab po BID WELLBUTRIN SR 150 MG ORAL [id number] BUPROPION HCL Inactive AZITHROMYCIN 250 MG ORAL TABS 1 tab daily AZITHROMYCIN 250 MG ORAL TABS 0214038 AZITHROMYCIN Inactive HYDROCODONE-ACETAMINOPHEN 5-325 MG TABS 1 tab by mouth every 6 hours as needed for bck pain HYDROCODONE-ACETAMINOPHEN 5-325 MG TABS 501986 HYDROCODONE-ACETAMINOPHEN Inactive PREDNISONE 20 MG TAB 1 tab po BID for 3 days, then 1 tab po qday for 3 days PREDNISONE 20 MG TAB 299518 PREDNISONE Inactive BACTRIM DS 800-160 MG TAB 1 tab by mouth twice daily BACTRIM DS 800-160 MG TAB 277799 TRIMETHOPRIM-SULFAMETHOXAZOLE Inactive LEVAQUIN 500 MG TAB 1 tablet by mouth daily LEVAQUIN 500 MG TAB 139375 LEVOFLOXACIN Inactive KEFLEX 500 MG CAP 1 po TID x 10 days KEFLEX 500 MG CAP 415894 CEPHALEXIN Inactive BACTRIM DS 800-160 MG TAB 1 tab by mouth twice daily BACTRIM DS 800-160 MG TAB 19820425 TRIMETHOPRIM-SULFAMETHOXAZOLE Inactive FENTANYL 25 MCG/HR PT72 Apply to clean, dry skin and change every 72 hours FENTANYL 25 MCG/HR PT72 757517 FENTANYL Inactive ZITHROMAX 250 MG TAB 2 po today, then 1 po q days 2-5 ZITHROMAX 250 MG TAB 4291200 AZITHROMYCIN Inactive AZITHROMYCIN 250 MG TABS 2 po qd x 1 day, then 1 po qd x 4 days AZITHROMYCIN 250 MG TABS 9310715 AZITHROMYCIN Inactive AZITHROMYCIN 250 MG TABS 2 po qd x 1 day, then 1 po qd x 4 days AZITHROMYCIN 250 MG TABS 2321627 AZITHROMYCIN Inactive Vital Signs Date Name Value [...] Panel - Chemistry sodium, serum 133 mmol/L 482-281 2441/08/24 potassium, serum 4.4 mmol/L 3.5-5.2 chloride, serum 95 mmol/L 98-107 carbon dioxide, venous blood 33.0 mmol/L 21.0-32.0 blood glucose 107 mg/dL 65-110 calcium, serum 8.8 mg/dL 8.5-10.1 urea nitrogen, blood 12 mg/dL 7-18 creatinine, serum 0.69 mg/dL 0.55-1.30 Lab Report: CBC, Basic Metabolic Panel - Chemistry sodium, serum 132 mmol/L 971-877 4184/10/12 potassium, serum 4.7 mmol/L 3.5-5.2 chloride, serum [...] CBC - Chemistry sodium, serum 136 mmol/L 581-880 3365/11/01 carbon dioxide, venous blood 32.1 mmol/L 21.0-32.0 [...] Negative Encounters Code Encounter Date Provider Facility CPT-48695 Level 3 Est. Patient 20:53:25 DORMITORY MAID Gareth Cancino MD [facility] CPT-06412 Level 3 Est. Patient 10:34:55 CDT Gareth Cancino MD [facility]-45802 Level 4 Est. Patient 09:00:18 CDT Gareth Cancino MD [facility] CPT-89448 Level 3 Est. Patient 15:12:03 CDT Gareth Cancino MD [facility]-24185 Level 3 Est. Patient 23:08:20 CDT Gareth Cancino MD [facility] CPT-44655 Level 4 Est. Patient 20:40:10 CDT Gareth Cancino MD [facility] CPT-20508 Level 4 Est. Patient 19:50:11 CDT Gareth Cancino MD [facility] CPT-43803 Level 3 Est. Patient 11:00:13 CDT Gareth Cancino MD [facility] CPT-95276 Level 4 Est. Patient 11:20:21 CDT Gareth Cancino MD [facility] CPT-12094 Level 4 Est. Patient 09:22:18 DORMITORY MAID Gareth Cancino MD [facility] CPT-76427 Level 3 Est. Patient 09:48:04 CDT Gareth Cancino MD [facility] CPT-13193 Level 3 Est. Patient 10:13:16 CDT Gareth Cancino MD [facility] CPT-12921 Level 2 Est. Patient 18:36:56 CDT Gareth Cancino MD [facility] CPT-99255 Level 4 Est. Patient 13:50:53 CDT Gareth Cancino MD [facility] CPT-80032 Level 3 Est. Patient 14:58:33 DORMITORY MAID Gareth Cancino MD [facility] CPT-37056 Level 4 Est. Patient 09:25:57 CDT Gareth Cancino MD [facility] CPT-59182 Level 3 Est. Patient 20:39:33 CDT Noman Edwards DO [facility] CPT-98556 Level 2 Est. Patient 13:17:39 CDT Gareth Cancino MD [facility] CPT-26409 Level 3 Est. Patient 13:37:20 CDT Gareth Cancino MD [facility] CPT-34616 Level 3 Est. Patient 18:09:08 CDT Gareth Cancino MD [facility] CPT-91786 Level 4 Est. Patient 09:59:07 CDT Gareth Cancino MD [facility] Procedures Code Procedure Name Date Entry Date Standard Description CPT-000 Give Appropriate Flu Vaccine 09:29:52 DORMITORY MAID CPT-000 Give Appropriate Flu Vaccine 09:22:20 DORMITORY MAID CPT-61724 TSH - LAB USE ONLY 08:11:40 DORMITORY MAID CPT-30785 Free T4 - LAB USE ONLY 08:11:40 DORMITORY MAID CPT-60832 Venipuncture Draw Fee 08:11:40 DORMITORY MAID CPT-41077 UA w micro - LAB USE ONLY 14:26:22 DORMITORY MAID CPT-G0438 Initial Annual Wellness Exam 20:53:25 DORMITORY MAID CPT-G0009 Administration of Pneumococcal Vaccine 11:42:53 DORMITORY MAID CPT-93733 Prevnar 13 Intramuscular Suspension 11:42:53 DORMITORY MAID 01/07 CPT-13412 First Vx - Ix admin for Medicare patients 11:39:44 DORMITORY MAID CPT-57833 Fluzone High-Dose Intramuscular Suspension 11:39:44 DORMITORY MAID CPT-05322 Prevnar 13 Intramuscular Suspension 09:29:52 DORMITORY MAID 01/07 CPT-80885 CMP - LAB USE ONLY 16:31:15 CDT CPT-04430 CBC - LAB USE ONLY 16:31:14 CDT CPT-13097 Venipuncture Draw Fee 16:31:14 CDT CPT-91396 BMP - LAB USE ONLY 14:37:27 CDT CPT-37551 CBC - LAB USE ONLY 14:37:27 CDT CPT-25816 Venipuncture Draw Fee 14:37:27 CDT CPT-TCMM Transitional Care Mgmt-Moderate 14:43:38 CDT CPT-42473 Venipuncture Draw Fee 10:33:47 CDT CPT-08468 BMP - LAB USE ONLY 10:33:46 CDT CPT-Cryo Cryotherapy 15:12:03 CDT CPT-23804 LS spine AP and Lat - XRAY USE ONLY 10:31:51 CDT 07/27 CPT-96473 Punch biopsy 1 lsn 20:40:09 CDT CPT-G0008 Administration of Influenza Virus Vaccine 10:04:48 DORMITORY MAID CPT-90125 Fluzone High-Dose Intramuscular Suspension 10:04:48 DORMITORY MAID CPT-95832 Ribs unilat w PA chst min 3V 10:45:40 CDT CPT-LR Lesion Removal 13:14:55 CDT CPT-Cryo Cryotherapy 13:14:55 CDT CPT-21555 Venipuncture Draw Fee 10:25:49 CDT CPT-25856 Administration single or combination vaccine inc oral 13 :22:14 DORMITORY MAID CPT-56172 Influenza High Dose age 65+ 13:22:14 DORMITORY MAID
--- OUTSIDE RECORDS SUMMARY | 2016-12-06 08:08 | XMS REPORT | Clinical Summary ---
Author Author Admin, Leon Organization [employer] Address Unknown Phone Unavailable Allergies, Adverse Reactions, [...] BRONCHITIS, ACUTE WITH MILD BRONCHOSPASM 466.0 Active Nomna Edwards DO Acute bronchitis URINARY FREQUENCY 788.41 [...] cause Skin lesion 709.9 Active Blanca Castillo EDUCATIONAL ADMINISTRATION TEACHER Unspecified disorder of skin and subcutaneous tissue Folliculitis 704.8 Active Gareth Cancino MD Other specified diseases of hair and hair follicles Low back pain, chronic 724.2 Active Gareth Cancino MD Lumbago Frequency of urination 788.41 Active Negin Garcia TECHNOLOGY EDUCATION TEACHER Urinary frequency Actinic keratosis 702.0 Active Gareth Cancino MD Actinic keratosis Bronchitis-Acute ICD-466.0 Inactive Gareth Cancino MD Medication List Medication Instructions Start Date Stop Date Generic Name NDC Status Provider Patient Instruction ALPRAZOLAM 0.25 MG TAB 1/2 to 1 tablet by mouth qhs prn ALPRAZOLAM 17353234166 No Longer Active Gareth Cancino MD Active CLOBETASOL PROPIONATE 0.05 % CREA apply to hand rash bid CLOBETASOL PROPIONATE 27263714588 No Longer Active Gareth Cancino MD Active BACTROBAN 2 % CREAM Apply to affected area BID MUPIROCIN CALCIUM 51076104051 No Longer Active Gareth Cancino MD Active LISINOPRIL 20 MG TABS 1 tablet by mouth daily for high blood pressure 10/14 LISINOPRIL 24125888011 Active Gareth Cancino MD Active BACTRIM DS 800-160 MG TAB 1 tab by mouth twice daily TRIMETHOPRIM-SULFAMETHOXAZOLE 10124080533 No Longer Active Gareth Cancino MD Active METOPROLOL SUCCINATE ER 100 MG [id number] 1 pill by mouth daily, for blood pressure METOPROLOL SUCCINATE 77862100771 Active Gareth Cancino MD Active KEFLEX 500 MG CAP 1 po TID x 10 days CEPHALEXIN 43523287570 No Longer Active Blanca Castillo APRN Active WELLBUTRIN SR 150 MG ORAL [id number] take 1 tab po BID BUPROPION HCL 03819212107 Active Gareth Cancino MD Active METOPROLOL SUCCINATE 50 MG TB24 1 tablet by mouth daily METOPROLOL SUCCINATE 20742492650 No Longer Active Gareth Cancino MD Active OMEPRAZOLE 20 MG TBEC Take one by mouth daily OMEPRAZOLE 23610823175 No Longer Active Gareth Cancino MD Active OMEPRAZOLE 40 MG CPDR 1 tab po qday for acid reflux. OMEPRAZOLE 50117561248 Active aMry Shah APRN Active LEVAQUIN 500 MG TAB 1 tablet by mouth daily LEVOFLOXACIN 78590447469 No Longer Active Gareth Cancino MD Active ALEVE 220 MG TAB 2 tab po qd NAPROXEN SODIUM 33184524225 Active Gareth Cancino MD Active ASPIRIN 81 MG CHEW TAB 1 tablet by mouth daily ASPIRIN 54651006534 Active Gareth Cancino MD Active VENTOLIN HFA 108 (90 BASE) MCG/ACT AERS 1-2 puffs four times a day PRN shortness of breath ALBUTEROL SULFATE 06651600205 Active Mary Shah APRN Active CENTRUM SILVER TABS 1 TAB PO DAILY MULTIPLE VITAMINS-MINERALS 13564357973 Active Gareth Cancino MD Active VITAMIN B12 100 MCG TABS 1 TAB PO DAILY CYANOCOBALAMIN 69857136392 Active Gareth Cancino MD Active CIPRO 500 MG TABS 1 TAB PO BID CIPROFLOXACIN HCL 52527731114 No Longer Active Gareth Cancino MD Active BACTRIM DS 800-160 MG TAB 1 tab by mouth twice daily TRIMETHOPRIM-SULFAMETHOXAZOLE 32775315732 No Longer Active Gareth Cancino MD Active PREDNISONE 20 MG TAB 1 tab po BID for 3 days, then 1 tab po qday for 3 days PREDNISONE 77945058430 No Longer Active Gareth Cancino MD Active FOLIC ACID 800 MCG TABS Take one by mouth daily FOLIC ACID 59050529480 No Longer Active Gareth Cancino MD Active VITAMIN B-6 250 MG TABS Take one by mouth daily PYRIDOXINE HCL 00624334221 No Longer Active Gareth Cancino MD Active B-12 1000 MCG CAPS Take one by mouth daily CYANOCOBALAMIN 53591583627 No Longer Active Gareth Cancino MD Active DOXYCYCLINE HYCLATE 100 MG CAP 1 cap by mouth twice daily DOXYCYCLINE HYCLATE 24647043652 No Longer Active Gareth Cancino MD Active PREDNISONE 20 MG TAB 1 po bid 3 days, then 1 po q day 3 days 2011 PREDNISONE 48644161049 No Longer Active Gareth Cancino MD Active CHANTIX STARTING MONTH RUBEN 0.5 MG X 11 & 1 MG X 42 TABS 0.5mg daily for 3 days , then 0.5mg BID for 4 days, then 1mg BID VARENICLINE TARTRATE 12879761202 No Longer Active Gareth Cancino MD Active SIMVASTATIN 40 MG TABS Take one by mouth daily SIMVASTATIN 92345095646 Active Gareth Cancino MD Active TRIAMTERENE-HCTZ 37.5-25 MG CAPS Take one by mouth daily TRIAMTERENE- HCTZ 24820448501 Active Gareth Cancino MD Active CHANTIX STARTING [...] 3 days 2011 PREDNISONE 20 MG TAB 629769 PREDNISONE Inactive DOXYCYCLINE HYCLATE 100 MG CAP 1 cap by mouth twice daily DOXYCYCLINE HYCLATE 100 MG CAP 7681574 DOXYCYCLINE HYCLATE Inactive B-12 1000 MCG CAPS Take one by mouth daily B-12 1000 MCG CAPS CYANOCOBALAMIN Inactive VITAMIN B-6 250 MG TABS Take one by mouth daily VITAMIN B-6 250 MG TABS PYRIDOXINE HCL Inactive FOLIC ACID 800 MCG TABS Take one by mouth daily FOLIC ACID 800 MCG TABS 079167 FOLIC ACID Inactive CIPRO 500 MG TABS 1 TAB PO BID CIPRO 500 MG TABS 177999 CIPROFLOXACIN HCL Inactive OMEPRAZOLE 20 MG TBEC Take one by mouth daily OMEPRAZOLE 20 MG TBEC 956149 OMEPRAZOLE Inactive METOPROLOL SUCCINATE 50 MG TB24 1 tablet by mouth daily 2015/06/ 30 METOPROLOL SUCCINATE 50 MG TB24 METOPROLOL SUCCINATE Inactive BACTROBAN 2 % CREAM Apply to affected area BID BACTROBAN 2 % CREAM 044286 MUPIROCIN CALCIUM Inactive CLOBETASOL PROPIONATE 0.05 % CREA apply to hand rash bid CLOBETASOL PROPIONATE 0.05 % CREA 450555 CLOBETASOL PROPIONATE Inactive ALPRAZOLAM 0.25 MG TAB 1/2 to 1 tablet by mouth qhs prn ALPRAZOLAM 0.25 MG TAB 639071 ALPRAZOLAM Inactive PREDNISONE 20 MG TAB 1 tab po BID for 3 days, then 1 tab po qday for 3 days PREDNISONE 20 MG TAB 753810 PREDNISONE Inactive BACTRIM DS 800-160 MG TAB 1 tab by mouth twice daily BACTRIM DS 800-160 MG TAB 072939 TRIMETHOPRIM-SULFAMETHOXAZOLE Inactive LEVAQUIN 500 MG TAB 1 tablet by mouth daily LEVAQUIN 500 MG TAB 332768 LEVOFLOXACIN Inactive KEFLEX 500 MG CAP 1 po TID x 10 days KEFLEX 500 MG CAP 846495 CEPHALEXIN Inactive BACTRIM DS 800-160 MG TAB 1 tab by mouth twice daily BACTRIM DS 800-160 MG TAB 821828 TRIMETHOPRIM-SULFAMETHOXAZOLE Inactive Vital Signs Date Name Value [...] E&M - 3141-9 161 [lb_av] Weight Measured Diagnostic Results Date Name Value Unit Range Description Lab Report: Lipid Panel, Comp. Metabolic Panel, CBC W/DIFF, MICROALB/CRE ... - Chemistry cholesterol, serum 195 mg/dL 102-957 2252/12/02 triglyceride, serum, fasting 74 mg/dL 30-200 HDL cholesterol, serum 52 mg/dL 32-96 LDL cholesterol, serum 128 mg/dL 0-130 sodium, serum 134 mmol/L 258-105 8399/12/02 carbon dioxide, venous blood 30.3 mmol/L 21.0-32.0 [...] 5.0-8.5 Encounters Code Encounter Date Provider Facility CPT-88870 Level 3 Est. Patient 15:12:03 CDT Gareth Cancino MD [facility] CPT-16997 Level 3 Est. Patient 23:08:20 CDT Gareth Cancino MD [facility] CPT-37442 Level 4 Est. Patient 20:40:10 CDT Gareth Cancino MD [facility] CPT-16740 Level 4 Est. Patient 19:50:11 CDT Gareth Cancino MD [facility] CPT-42365 Level 3 Est. Patient 11:00:13 CDT Gareth Cancino MD [facility] CPT-01770 Level 4 Est. Patient 11:20:21 CDT Gareth Cancino MD [facility] CPT-04523 Level 4 Est. Patient 09:22:18 EXCAVATING MACHINE OPERATOR Gareth Cancino MD [facility] CPT-78205 Level 3 Est. Patient 09:48:04 CDT Gareth Cancino MD [facility] CPT-65859 Level 3 Est. Patient 10:13:16 CDT Gareth Cancino MD [facility] CPT-83551 Level 2 Est. Patient 18:36:56 CDT Gareth Cancino MD [facility] CPT-32429 Level 4 Est. Patient 13:50:53 CDT Gareth Cancino MD [facility] CPT-50388 Level 3 Est. Patient 14:58:33 EXCAVATING MACHINE OPERATOR Gareth Cancino MD [facility] CPT-35848 Level 4 Est. Patient 09:25:57 CDT Gareth Cancino MD [facility] CPT-91184 Level 3 Est. Patient 20:39:33 CDT Noman Edwards DO [facility] CPT-24134 Level 2 Est. Patient 13:17:39 CDT Gareth Cancino MD [facility] CPT-13533 Level 3 Est. Patient 13:37:20 CDT Gareth Cancino MD [facility] CPT-87360 Level 3 Est. Patient 18:09:08 CDT Gareth Cancino MD [facility] CPT-90879 Level 4 Est. Patient 09:59:07 CDT Gareth Cancino MD [facility] Procedures Code Procedure Name Date Entry Date Standard Description CPT-62237 Venipuncture Draw Fee 10:33:47 CDT CPT-77693 BMP - LAB USE ONLY 10:33:46 CDT CPT-Cryo Cryotherapy 15:12:03 CDT CPT-08248 LS spine AP and Lat - XRAY USE ONLY 10:31:51 CDT 07/27 CPT-95635 Punch biopsy 1 lsn 20:40:09 CDT CPT-G0008 Administration of Influenza Virus Vaccine 10:04:48 EXCAVATING MACHINE OPERATOR CPT-79656 Fluzone High-Dose Intramuscular Suspension 10:04:48 EXCAVATING MACHINE OPERATOR CPT-51492 Ribs unilat w PA chst min 3V 10:45:40 CDT CPT-LR Lesion Removal 13:14:55 CDT CPT-Cryo Cryotherapy 13:14:55 CDT CPT-89306 Venipuncture Draw Fee 10:25:49 CDT CPT-42221 Administration single or combination vaccine inc oral 13 :22:14 EXCAVATING MACHINE OPERATOR CPT-42030 Influenza High Dose age 65+ 13:22:14 EXCAVATING MACHINE OPERATOR
--- OUTSIDE RECORDS SUMMARY | 2016-12-06 08:09 | XMS REPORT | Clinical Summary ---
Author Author Admin, HILARIA Organization [employer] Address Unknown Phone Unavailable Allergies, Adverse Reactions, [...] Gareth Cancino MD Actinic keratosis ICD-702.0 Inactive Garteh Cancino MD Hypokalemia ICD-276.8 Inactive Gareth Cancino MD Medication List Medication Instructions Start Date Stop Date Generic Name NDC Status Provider Patient Instruction PIROXICAM 20 MG ORAL CAPS 1 po daily as needed for arthritis/pain PIROXICAM 56349861819 Active Gareth Cancino MD Active ZITHROMAX Z-RUBEN 250 MG TABS 2 today, then 1 daily for 4 days 2016 AZITHROMYCIN 60029923727 No Longer Active Tangelashar Forte Active FENTANYL 25 MCG/HR TRANS PT72 1 patch every 72 hours FENTANYL 97140556161 Active Mary Shah APRN Active PREDNISONE 20 MG TAB take 3 tabs daily for 3 days, 2 tabs daily for 3 days, 1 tab daily for 3 days, 1/2 tab daily for 4 days PREDNISONE 59368732196 No Longer Active Mary Shah APRN Active LEVAQUIN 500 MG TAB 1 tablet by mouth daily for 7 days LEVOFLOXACIN 74913432053 Active Marylennox Shah APRN Active AZITHROMYCIN 250 MG TABS 2 po qd x 1 day, then 1 po qd x 4 days AZITHROMYCIN 77893480592 No Longer Active Danuta Rian Active AZITHROMYCIN 250 MG TABS 2 po qd x 1 day, then 1 po qd x 4 days AZITHROMYCIN 80030488406 No Longer Active Tangela Forte Active HYDROCODONE-ACETAMINOPHEN 5-325 MG TABS 1 tab by mouth every 6 hours as needed for bck pain HYDROCODONE-ACETAMINOPHEN 19099901604 No Longer Active Gareth Cancino MD Active ALPRAZOLAM 0.25 MG TAB 1 tablet by mouth q hs prn ALPRAZOLAM 91289110703 Active Gareth Cancino MD Active AZITHROMYCIN 250 MG ORAL TABS 1 tab daily AZITHROMYCIN 25813965114 No Longer Active Gareth Cancino MD Active ZITHROMAX 250 MG TAB 2 po today, then 1 po q days 2-5 AZITHROMYCIN 85245498160 No Longer Active Tangela Raida Active IPRATROPIUM-ALBUTEROL 0.5-2.5 (3) MG/3ML INH SOLN nebulize 1 vial every 6hrs prn shortness of breath IPRATROPIUM-ALBUTEROL 08554974848 Active Gareth Cancino MD Active FENTANYL 25 MCG/HR PT72 Apply to clean, dry skin and change every 72 hours FENTANYL 16996452149 No Longer Active Gareth Cancino MD Active WELLBUTRIN SR 150 MG ORAL [id number] take 1 tab po BID BUPROPION HCL 52605295235 No Longer Active Gareth Cancino MD Active ZOFRAN 4 MG ORAL TABS 1 by mouth every 6 hours prn nausea ONDANSETRON HCL 26329741567 Active Tangela Forte Active TRAMADOL HCL 50 MG TABS 1 po tid PRN TRAMADOL HCL 10093945178 Active Gareth Cancino MD Active ALPRAZOLAM 0.25 MG TAB 1/2 to 1 tablet by mouth qhs prn ALPRAZOLAM 40109390662 No Longer Active Gareth Cancino MD Active CLOBETASOL PROPIONATE 0.05 % CREA apply to hand rash bid CLOBETASOL PROPIONATE 32396018755 No Longer Active Gareth Cancino MD Active BACTROBAN 2 % CREAM Apply to affected area BID MUPIROCIN CALCIUM 79883845126 No Longer Active Gareth Cancino MD Active LISINOPRIL 20 MG TABS 1 tablet by mouth daily for high blood pressure 10/14 LISINOPRIL 90208897806 Active Gareth Cancino MD Active BACTRIM DS 800-160 MG TAB 1 tab by mouth twice daily TRIMETHOPRIM-SULFAMETHOXAZOLE 67170740085 No Longer Active Gareth Cancino MD Active METOPROLOL SUCCINATE ER 100 MG [id number] 1 pill by mouth daily, for blood pressure METOPROLOL SUCCINATE 78985848870 Active Gareth Cancino MD Active KEFLEX 500 MG CAP 1 po TID x 10 days CEPHALEXIN 46194497812 No Longer Active Blanca Castillo APRN Active METOPROLOL SUCCINATE 50 MG TB24 1 tablet by mouth daily METOPROLOL SUCCINATE 97890374349 No Longer Active Gareth Cancino MD Active OMEPRAZOLE 20 MG TBEC Take one by mouth daily OMEPRAZOLE 26693042439 No Longer Active Gareth Cancino MD Active OMEPRAZOLE 40 MG CPDR 1 tab po qday for acid reflux. OMEPRAZOLE 24502790139 Active Mary Shah APRN Active LEVAQUIN 500 MG TAB 1 tablet by mouth daily LEVOFLOXACIN 47291807370 No Longer Active Gareth Cancino MD Active ALEVE 220 MG TAB 2 tab po qd NAPROXEN SODIUM 73203007467 Active Gareth Cancino MD Active ASPIRIN 81 MG CHEW TAB 1 tablet by mouth daily ASPIRIN 20788264059 Active Gareth Cancino MD Active VENTOLIN HFA 108 (90 BASE) MCG/ACT AERS 1-2 puffs four times a day PRN shortness of breath ALBUTEROL SULFATE 27964897082 Active Mary Shah APRN Active CENTRUM SILVER TABS 1 TAB PO DAILY MULTIPLE VITAMINS-MINERALS 80158202739 Active Gareth Cancino MD Active VITAMIN B12 100 MCG TABS 1 TAB PO DAILY CYANOCOBALAMIN 31664983862 Active Gareth Cancino MD Active CIPRO 500 MG TABS 1 TAB PO BID CIPROFLOXACIN HCL 03258242124 No Longer Active Gareth Cancino MD Active BACTRIM DS 800-160 MG TAB 1 tab by mouth twice daily TRIMETHOPRIM-SULFAMETHOXAZOLE 11105209156 No Longer Active Gareth Cancino MD Active PREDNISONE 20 MG TAB 1 tab po BID for 3 days, then 1 tab po qday for 3 days PREDNISONE 74387662462 No Longer Active Gareth Cancino MD Active FOLIC ACID 800 MCG TABS Take one by mouth daily FOLIC ACID 90207409670 No Longer Active Gareth Cancino MD Active VITAMIN B-6 250 MG TABS Take one by mouth daily PYRIDOXINE HCL 73223084690 No Longer Active Gareth Cancino MD Active B-12 1000 MCG CAPS Take one by mouth daily CYANOCOBALAMIN 06555512991 No Longer Active Gareth Cancino MD Active DOXYCYCLINE HYCLATE 100 MG CAP 1 cap by mouth twice daily DOXYCYCLINE HYCLATE 57532156097 No Longer Active Gareth Cancino MD Active PREDNISONE 20 MG TAB 1 po bid 3 days, then 1 po q day 3 days 2011 PREDNISONE 02467692165 No Longer Active Gareth Cancino MD Active CHANTIX STARTING MONTH RUBEN 0.5 MG X 11 & 1 MG X 42 TABS 0.5mg daily for 3 days , then 0.5mg BID for 4 days, then 1mg BID VARENICLINE TARTRATE 82058076661 No Longer Active Gareth Cancino MD Active SIMVASTATIN 40 MG TABS Take one by mouth daily SIMVASTATIN 55172352320 Active Gareth Cancino MD Active TRIAMTERENE-HCTZ 37.5-25 MG CAPS Take one by mouth daily TRIAMTERENE- HCTZ 87966246155 Active Mary Shah APRN Active CHANTIX STARTING [...] 3 days 2011 PREDNISONE 20 MG TAB 495427 PREDNISONE Inactive DOXYCYCLINE HYCLATE 100 MG CAP 1 cap by mouth twice daily DOXYCYCLINE HYCLATE 100 MG CAP 3993182 DOXYCYCLINE HYCLATE Inactive B-12 1000 MCG CAPS Take one by mouth daily B-12 1000 MCG CAPS CYANOCOBALAMIN Inactive VITAMIN B-6 250 MG TABS Take one by mouth daily VITAMIN B-6 250 MG TABS PYRIDOXINE HCL Inactive FOLIC ACID 800 MCG TABS Take one by mouth daily FOLIC ACID 800 MCG TABS 207312 FOLIC ACID Inactive CIPRO 500 MG TABS 1 TAB PO BID CIPRO 500 MG TABS 809713 CIPROFLOXACIN HCL Inactive OMEPRAZOLE 20 MG TBEC Take one by mouth daily OMEPRAZOLE 20 MG [facility] 017637 OMEPRAZOLE Inactive METOPROLOL SUCCINATE 50 MG TB24 1 tablet by mouth daily METOPROLOL SUCCINATE 50 MG TB24 METOPROLOL SUCCINATE Inactive BACTROBAN 2 % CREAM Apply to affected area BID BACTROBAN 2 % CREAM 423387 MUPIROCIN CALCIUM Inactive CLOBETASOL PROPIONATE 0.05 % CREA apply to hand rash bid CLOBETASOL PROPIONATE 0.05 % CREA 978120 CLOBETASOL PROPIONATE Inactive ALPRAZOLAM 0.25 MG TAB 1/2 to 1 tablet by mouth qhs prn ALPRAZOLAM 0.25 MG TAB 411095 ALPRAZOLAM Inactive WELLBUTRIN SR 150 MG ORAL [id number] take 1 tab po BID WELLBUTRIN SR 150 MG ORAL [id number] BUPROPION HCL Inactive AZITHROMYCIN 250 MG ORAL TABS 1 tab daily AZITHROMYCIN 250 MG ORAL TABS 9736174 AZITHROMYCIN Inactive HYDROCODONE-ACETAMINOPHEN 5-325 MG TABS 1 tab by mouth every 6 hours as needed for bck pain HYDROCODONE-ACETAMINOPHEN 5-325 MG TABS 264334 HYDROCODONE-ACETAMINOPHEN Inactive PREDNISONE 20 MG TAB 1 tab po BID for 3 days, then 1 tab po qday for 3 days PREDNISONE 20 MG TAB 685066 PREDNISONE Inactive BACTRIM DS 800-160 MG TAB 1 tab by mouth twice daily BACTRIM DS 800-160 MG TAB 798330 TRIMETHOPRIM-SULFAMETHOXAZOLE Inactive LEVAQUIN 500 MG TAB 1 tablet by mouth daily LEVAQUIN 500 MG TAB 343243 LEVOFLOXACIN Inactive KEFLEX 500 MG CAP 1 po TID x 10 days KEFLEX 500 MG CAP 859776 CEPHALEXIN Inactive BACTRIM DS 800-160 MG TAB 1 tab by mouth twice daily BACTRIM DS 800-160 MG TAB 798668 TRIMETHOPRIM-SULFAMETHOXAZOLE Inactive FENTANYL 25 MCG/HR PT72 Apply to clean, dry skin and change every 72 hours FENTANYL 25 MCG/HR PT72 103934 FENTANYL Inactive ZITHROMAX 250 MG TAB 2 po today, then 1 po q days 2-5 ZITHROMAX 250 MG TAB 9974968 AZITHROMYCIN Inactive AZITHROMYCIN 250 MG TABS 2 po qd x 1 day, then 1 po qd x 4 days AZITHROMYCIN 250 MG TABS 7626568 AZITHROMYCIN Inactive AZITHROMYCIN 250 MG TABS 2 po qd x 1 day, then 1 po qd x 4 days AZITHROMYCIN 250 MG TABS 8051154 AZITHROMYCIN Inactive PREDNISONE 20 MG TAB take 3 tabs daily for 3 days, 2 tabs daily for 3 days, 1 tab daily for 3 days, 1/2 tab daily for 4 days PREDNISONE 20 MG TAB 875555 PREDNISONE Inactive ZITHROMAX Z-RUBEN 250 MG TABS 2 today, then 1 daily for 4 days 2016 ZITHROMAX Z-RUBEN 250 MG TABS 7061465 AZITHROMYCIN Inactive Vital Signs Date Name Value [...] Panel - Chemistry sodium, serum 133 mmol/L 725-538 6841/08/24 potassium, serum 4.4 mmol/L 3.5-5.2 chloride, serum 95 mmol/L 98-107 carbon dioxide, venous blood 33.0 mmol/L 21.0-32.0 blood glucose 107 mg/dL 65-110 calcium, serum 8.8 mg/dL 8.5-10.1 urea nitrogen, blood 12 mg/dL 7-18 creatinine, serum 0.69 mg/dL 0.55-1.30 Lab Report: CBC, Basic Metabolic Panel - Chemistry sodium, serum 132 mmol/L 886-534 1389/10/12 potassium, serum 4.7 mmol/L 3.5-5.2 chloride, serum [...] CBC - Chemistry sodium, serum 136 mmol/L 783-527 9908/11/01 carbon dioxide, venous blood 32.1 mmol/L 21.0-32.0 [...] PANEL - Chemistry cholesterol, serum 169 mg/dL 186-501 0649/05/09 HDL cholesterol, serum 54 mg/dL > OR=46 [...] mg/dL Encounters Code Encounter Date Provider Facility CPT-00152 Level 4 Est. Patient 07:23:02 CDT Gareth Cancino MD [facility] CPT-66823 Level 3 Est. Patient 09:05:25 FOOD AND DRUG INSPECTOR Mary Shah APRN [facility] CPT-93228 Level 3 Est. Patient 20:53:25 FOOD AND DRUG INSPECTOR Gareth Cancino MD [facility] CPT-96975 Level 3 Est. Patient 10:34:55 CDT Gareth Cancino MD [facility] CPT-17028 Level 4 Est. Patient 09:00:18 CDT Gareth Cancino MD [facility] CPT-04808 Level 3 Est. Patient 15:12:03 CDT Gareth Cancino MD [facility] CPT-29628 Level 3 Est. Patient 23:08:20 CDT Gareth Cancino MD [facility] CPT-52884 Level 4 Est. Patient 20:40:10 CDT Gareth Cancino MD [facility] CPT-15317 Level 4 Est. Patient 19:50:11 CDT Gareth Cancino MD [facility] CPT-43512 Level 3 Est. Patient 11:00:13 CDT Gareth Cancino MD [facility] CPT-18785 Level 4 Est. Patient 11:20:21 CDT Gareth Cancino MD [facility] CPT-36076 Level 4 Est. Patient 09:22:18 FOOD AND DRUG INSPECTOR Gareth Cancino MD [facility] CPT-12226 Level 3 Est. Patient 09:48:04 CDT Gareth Cancino MD [facility] CPT-33473 Level 3 Est. Patient 10:13:16 CDT Gareth Cancino MD [facility] CPT-20876 Level 2 Est. Patient 18:36:56 CDT Gareth Cancino MD [facility] CPT-25977 Level 4 Est. Patient 13:50:53 CDT Gareth Cancino MD [facility] CPT-94873 Level 3 Est. Patient 14:58:33 FOOD AND DRUG INSPECTOR Gareth Cancino MD [facility] CPT-18939 Level 4 Est. Patient 09:25:57 CDT Gareth Cancino MD [facility] CPT-39218 Level 3 Est. Patient 20:39:33 CDT Noman Edwards DO [facility] CPT-33929 Level 2 Est. Patient 13:17:39 CDT Gareth Cancino MD [facility] CPT-00604 Level 3 Est. Patient 13:37:20 CDT Gareth Cancino MD [facility] CPT-65896 Level 3 Est. Patient 18:09:08 CDT Gareth Cancino MD [facility] CPT-85124 Level 4 Est. Patient 09:59:07 CDT Gareth Cancino MD [facility] Procedures Code Procedure Name Date Entry Date Standard Description CPT-000 Give Appropriate Flu Vaccine 09:29:52 FOOD AND DRUG INSPECTOR CPT-000 Give Appropriate Flu Vaccine 09:22:20 FOOD AND DRUG INSPECTOR CPT-74185 TSH - LAB USE ONLY 08:11:40 FOOD AND DRUG INSPECTOR CPT-07591 Free T4 - LAB USE ONLY 08:11:40 FOOD AND DRUG INSPECTOR CPT-83716 Venipuncture Draw Fee 08:11:40 FOOD AND DRUG INSPECTOR CPT-41785 UA w micro - LAB USE ONLY 14:26:22 FOOD AND DRUG INSPECTOR CPT-G0438 Initial Annual Wellness Exam 20:53:25 FOOD AND DRUG INSPECTOR CPT-G0009 Administration of Pneumococcal Vaccine 11:42:53 FOOD AND DRUG INSPECTOR CPT-82823 Prevnar 13 Intramuscular Suspension 11:42:53 FOOD AND DRUG INSPECTOR 01/07 CPT-91185 First Vx - Ix admin for Medicare patients 11:39:44 FOOD AND DRUG INSPECTOR CPT-80452 Fluzone High-Dose Intramuscular Suspension 11:39:44 FOOD AND DRUG INSPECTOR CPT-69286 Prevnar 13 Intramuscular Suspension 09:29:52 FOOD AND DRUG INSPECTOR 01/07 CPT-20163 CMP - LAB USE ONLY 16:31:15 CDT CPT-74150 CBC - LAB USE ONLY 16:31:14 CDT CPT-85186 Venipuncture Draw Fee 16:31:14 CDT CPT-79073 BMP - LAB USE ONLY 14:37:27 CDT CPT-80561 CBC - LAB USE ONLY 14:37:27 CDT CPT-42123 Venipuncture Draw Fee 14:37:27 CDT CPT-TCMM Transitional Care Mgmt-Moderate 14:43:38 CDT CPT-06666 Venipuncture Draw Fee 10:33:47 CDT CPT-63210 BMP - LAB USE ONLY 10:33:46 CDT CPT-Cryo Cryotherapy 15:12:03 CDT CPT-53914 LS spine AP and Lat - XRAY USE ONLY 10:31:51 CDT 07/27 CPT-00616 Punch biopsy 1 lsn 20:40:09 CDT CPT-G0008 Administration of Influenza Virus Vaccine 10:04:48 FOOD AND DRUG INSPECTOR CPT-88301 Fluzone High-Dose Intramuscular Suspension 10:04:48 FOOD AND DRUG INSPECTOR CPT-47047 Ribs unilat w PA chst min 3V 10:45:40 CDT CPT-LR Lesion Removal 13:14:55 CDT CPT-Cryo Cryotherapy 13:14:55 CDT CPT-61107 Venipuncture Draw Fee 10:25:49 CDT CPT-01384 Administration single or combination vaccine inc oral 13 :22:14 FOOD AND DRUG INSPECTOR CPT-51010 Influenza High Dose age 65+ 13:22:14 FOOD AND DRUG INSPECTOR
--- OUTSIDE RECORDS SUMMARY | 2016-12-06 08:10 | XMS REPORT | Clinical Summary ---
Author Author Admin, HILARIA Organization [employer] Address Unknown Phone Unavailable Allergies, Adverse Reactions, [...] Cancino MD Acute bronchitis GERD 530.81 Active Gaerth Cancino MD Esophageal reflux Dysuria 788.1 Resolved [...] (acute) exacerbation HYPERLIPIDEMIA, OTHER UNSPECIFIED ICD-272.4 Inactive Graeth Cancino MD SKIN LESION ICD-709.9 Inactive Gareth [...] PT72 1 patch every 72 hours FENTANYL 79144301267 Active Mary Shah APRN Active PREDNISONE 20 MG TAB take 3 tabs daily for 3 days, 2 tabs daily for 3 days, 1 tab daily for 3 days, 1/2 tab daily for 4 days PREDNISONE 43383065060 No Longer Active Mary Shah APRN Active LEVAQUIN 500 MG TAB 1 tablet by mouth daily for 7 days LEVOFLOXACIN 31461369958 Active Marylennox Shah APRN Active AZITHROMYCIN 250 MG TABS 2 po qd x 1 day, then 1 po qd x 4 days AZITHROMYCIN 54697042243 No Longer Active Danuta Modi Active AZITHROMYCIN 250 MG TABS 2 po qd x 1 day, then 1 po qd x 4 days AZITHROMYCIN 68753741046 No Longer Active Tangela Rameseret Active HYDROCODONE-ACETAMINOPHEN 5-325 MG TABS 1 tab by mouth every 6 hours as needed for bck pain HYDROCODONE-ACETAMINOPHEN 23179536825 No Longer Active Gareth Cancino MD Active ALPRAZOLAM 0.25 MG TAB 1 tablet by mouth q hs prn ALPRAZOLAM 81175729746 Active Gareth Cancino MD Active AZITHROMYCIN 250 MG ORAL TABS 1 tab daily AZITHROMYCIN 17879342462 No Longer Active Gareth Cancino MD Active ZITHROMAX 250 MG TAB 2 po today, then 1 po q days 2-5 AZITHROMYCIN 51973396076 No Longer Active Tangelashar Forte Active IPRATROPIUM-ALBUTEROL 0.5-2.5 (3) MG/3ML INH SOLN nebulize 1 vial every 6hrs prn shortness of breath IPRATROPIUM-ALBUTEROL 65805186530 Active Gareth Cancino MD Active FENTANYL 25 MCG/HR PT72 Apply to clean, dry skin and change every 72 hours FENTANYL 71149788028 No Longer Active Gareth Cancino MD Active WELLBUTRIN SR 150 MG ORAL [id number] take 1 tab po BID BUPROPION HCL 84451287637 No Longer Active Gareth Cancino MD Active ZOFRAN 4 MG ORAL TABS 1 by mouth every 6 hours prn nausea ONDANSETRON HCL 51172223426 Active Tangela Forte Active TRAMADOL HCL 50 MG TABS 1 po tid PRN TRAMADOL HCL 31270530813 Active Gareth Cancino MD Active ALPRAZOLAM 0.25 MG TAB 1/2 to 1 tablet by mouth qhs prn ALPRAZOLAM 40401105117 No Longer Active Gareth Cancino MD Active CLOBETASOL PROPIONATE 0.05 % CREA apply to hand rash bid CLOBETASOL PROPIONATE 43314766700 No Longer Active Gareth Cancino MD Active BACTROBAN 2 % CREAM Apply to affected area BID MUPIROCIN CALCIUM 84139360260 No Longer Active Gareth Cancino MD Active LISINOPRIL 20 MG TABS 1 tablet by mouth daily for high blood pressure 10/14 LISINOPRIL 51225187587 Active Mary Shah APRN Active BACTRIM DS 800-160 MG TAB 1 tab by mouth twice daily TRIMETHOPRIM-SULFAMETHOXAZOLE 89603301343 No Longer Active Gareth Cancino MD Active METOPROLOL SUCCINATE ER 100 MG [id number] 1 pill by mouth daily, for blood pressure METOPROLOL SUCCINATE 18416318188 Active Mary Shah APRN Active KEFLEX 500 MG CAP 1 po TID x 10 days CEPHALEXIN 47191443454 No Longer Active Blanca Castillo APRN Active METOPROLOL SUCCINATE 50 MG TB24 1 tablet by mouth daily METOPROLOL SUCCINATE 45787118341 No Longer Active Gareth Cancino MD Active OMEPRAZOLE 20 MG TBEC Take one by mouth daily OMEPRAZOLE 54843475396 No Longer Active Gareth Cancino MD Active OMEPRAZOLE 40 MG CPDR 1 tab po qday for acid reflux. OMEPRAZOLE 41475216417 Active Mary Shah APRN Active LEVAQUIN 500 MG TAB 1 tablet by mouth daily LEVOFLOXACIN 34466220441 No Longer Active Gareth Cancino MD Active ALEVE 220 MG TAB 2 tab po qd NAPROXEN SODIUM 19285338433 Active Gareth Cancino MD Active ASPIRIN 81 MG CHEW TAB 1 tablet by mouth daily ASPIRIN 13236769749 Active Gareth Cancino MD Active VENTOLIN HFA 108 (90 BASE) MCG/ACT AERS 1-2 puffs four times a day PRN shortness of breath ALBUTEROL SULFATE 41087566698 Active Mary Shah [employer]OR [employer] Active CENTRUM SILVER TABS 1 TAB PO DAILY MULTIPLE VITAMINS-MINERALS 47269820903 Active Gareth Cancino MD Active VITAMIN B12 100 MCG TABS 1 TAB PO DAILY CYANOCOBALAMIN 04161466928 Active Gareth Cancino MD Active CIPRO 500 MG TABS 1 TAB PO BID CIPROFLOXACIN HCL 44114277051 No Longer Active Gareth Cancino MD Active BACTRIM DS 800-160 MG TAB 1 tab by mouth twice daily TRIMETHOPRIM-SULFAMETHOXAZOLE 89548709308 No Longer Active Gareth Cancino MD Active PREDNISONE 20 MG TAB 1 tab po BID for 3 days, then 1 tab po qday for 3 days PREDNISONE 54215977606 No Longer Active Gareth Cancino MD Active FOLIC ACID 800 MCG TABS Take one by mouth daily FOLIC ACID 69784507964 No Longer Active Gareth Cancino MD Active VITAMIN B-6 250 MG TABS Take one by mouth daily PYRIDOXINE HCL 58730888627 No Longer Active Gareth Cancino MD Active B-12 1000 MCG CAPS Take one by mouth daily CYANOCOBALAMIN 48024673488 No Longer Active Gareth Cancino MD Active DOXYCYCLINE HYCLATE 100 MG CAP 1 cap by mouth twice daily DOXYCYCLINE HYCLATE 44283186366 No Longer Active Gareth Cancino MD Active PREDNISONE 20 MG TAB 1 po bid 3 days, then 1 po q day 3 days 2011 PREDNISONE 91854222285 No Longer Active Gareth Cancino MD Active CHANTIX STARTING MONTH RUBEN 0.5 MG X 11 & 1 MG X 42 TABS 0.5mg daily for 3 days , then 0.5mg BID for 4 days, then 1mg BID VARENICLINE TARTRATE 79621243981 No Longer Active Gareth Cancino MD Active SIMVASTATIN 40 MG TABS Take one by mouth daily SIMVASTATIN 50461984915 Active Gareth Cancino MD Active TRIAMTERENE-HCTZ 37.5-25 MG CAPS Take one by mouth daily TRIAMTERENE- HCTZ 64309510186 Active Gareth Cancino MD Active CHANTIX STARTING [...] 3 days 2011 PREDNISONE 20 MG TAB 114828 PREDNISONE Inactive DOXYCYCLINE HYCLATE 100 MG CAP 1 cap by mouth twice daily DOXYCYCLINE HYCLATE 100 MG CAP 2727291 DOXYCYCLINE HYCLATE Inactive B-12 1000 MCG CAPS Take one by mouth daily B-12 1000 MCG CAPS CYANOCOBALAMIN Inactive VITAMIN B-6 250 MG TABS Take one by mouth daily VITAMIN B-6 250 MG TABS PYRIDOXINE HCL Inactive FOLIC ACID 800 MCG TABS Take one by mouth daily FOLIC ACID 800 MCG TABS 942868 FOLIC ACID Inactive CIPRO 500 MG TABS 1 TAB PO BID CIPRO 500 MG TABS 555414 CIPROFLOXACIN HCL Inactive OMEPRAZOLE 20 MG TBEC Take one by mouth daily OMEPRAZOLE 20 MG TBEC 386628 OMEPRAZOLE Inactive METOPROLOL SUCCINATE 50 MG TB24 1 tablet by mouth daily METOPROLOL SUCCINATE 50 MG TB24 METOPROLOL SUCCINATE Inactive BACTROBAN 2 % CREAM Apply to affected area BID BACTROBAN 2 % CREAM 895688 MUPIROCIN CALCIUM Inactive CLOBETASOL PROPIONATE 0.05 % CREA apply to hand rash bid CLOBETASOL PROPIONATE 0.05 % CREA 565654 CLOBETASOL PROPIONATE Inactive ALPRAZOLAM 0.25 MG TAB 1/2 to 1 tablet by mouth qhs prn ALPRAZOLAM 0.25 MG TAB 809116 ALPRAZOLAM Inactive WELLBUTRIN SR 150 MG ORAL [id number] take 1 tab po BID WELLBUTRIN SR 150 MG ORAL [id number] BUPROPION HCL Inactive AZITHROMYCIN 250 MG ORAL TABS 1 tab daily AZITHROMYCIN 250 MG ORAL TABS 0138661 AZITHROMYCIN Inactive HYDROCODONE-ACETAMINOPHEN 5-325 MG TABS 1 tab by mouth every 6 hours as needed for bck pain HYDROCODONE-ACETAMINOPHEN 5-325 MG TABS 380715 HYDROCODONE-ACETAMINOPHEN Inactive PREDNISONE 20 MG TAB 1 tab po BID for 3 days, then 1 tab po qday for 3 days PREDNISONE 20 MG TAB 356844 PREDNISONE Inactive BACTRIM DS 800-160 MG TAB 1 tab by mouth twice daily BACTRIM DS 800-160 MG TAB 471891 TRIMETHOPRIM-SULFAMETHOXAZOLE Inactive LEVAQUIN 500 MG TAB 1 tablet by mouth daily LEVAQUIN 500 MG TAB 815091 LEVOFLOXACIN Inactive KEFLEX 500 MG CAP 1 po TID x 10 days KEFLEX 500 MG CAP 730336 CEPHALEXIN Inactive BACTRIM DS 800-160 MG TAB 1 tab by mouth twice daily BACTRIM DS 800-160 MG TAB 19820425 TRIMETHOPRIM-SULFAMETHOXAZOLE Inactive FENTANYL 25 MCG/HR PT72 Apply to clean, dry skin and change every 72 hours FENTANYL 25 MCG/HR PT72 535847 FENTANYL Inactive ZITHROMAX 250 MG TAB 2 po today, then 1 po q days 2-5 ZITHROMAX 250 MG TAB 7605857 AZITHROMYCIN Inactive AZITHROMYCIN 250 MG TABS 2 po qd x 1 day, then 1 po qd x 4 days AZITHROMYCIN 250 MG TABS 9471616 AZITHROMYCIN Inactive AZITHROMYCIN 250 MG TABS 2 po qd x 1 day, then 1 po qd x 4 days AZITHROMYCIN 250 MG TABS 9068681 AZITHROMYCIN Inactive PREDNISONE 20 MG TAB take 3 tabs daily for 3 days, 2 tabs daily for 3 days, 1 tab daily for 3 days, 1/2 tab daily for 4 days PREDNISONE 20 MG TAB 407760 PREDNISONE Inactive Vital Signs Date Name Value [...] Panel - Chemistry sodium, serum 133 mmol/L 651-735 4186/08/24 potassium, serum 4.4 mmol/L 3.5-5.2 chloride, serum 95 mmol/L 98-107 carbon dioxide, venous blood 33.0 mmol/L 21.0-32.0 blood glucose 107 mg/dL 65-110 calcium, serum 8.8 mg/dL 8.5-10.1 urea nitrogen, blood 12 mg/dL 7-18 creatinine, serum 0.69 mg/dL 0.55-1.30 Lab Report: CBC, Basic Metabolic Panel - Chemistry sodium, serum 132 mmol/L 103-292 1811/10/12 potassium, serum 4.7 mmol/L 3.5-5.2 chloride, serum [...] CBC - Chemistry sodium, serum 136 mmol/L 680-580 6537/11/01 carbon dioxide, venous blood 32.1 mmol/L 21.0-32.0 [...] Negative Encounters Code Encounter Date Provider Facility CPT-25880 Level 3 Est. Patient 09:05:25 SPECIAL OFFICER Mary Shah APRN [facility] CPT-86520 Level 3 Est. Patient 20:53:25 SPECIAL OFFICER Gareth Cancino MD [facility] CPT-35134 Level 3 Est. Patient 10:34:55 CDT Gareth Cancino MD [facility] CPT-36703 Level 4 Est. Patient 09:00:18 CDT Gareth Cancino MD [facility] CPT-99590 Level 3 Est. Patient 15:12:03 CDT Gareth Cancino MD [facility] CPT-06921 Level 3 Est. Patient 23:08:20 CDT Gareth Cancino MD [facility] CPT-80211 Level 4 Est. Patient 20:40:10 CDT Gareth Cancino MD [facility] CPT-08102 Level 4 Est. Patient 19:50:11 CDT Gareth Cancino MD [facility] CPT-48120 Level 3 Est. Patient 11:00:13 CDT Gareth Cancino MD [facility] CPT-30324 Level 4 Est. Patient 11:20:21 CDT Gareth Cancino MD [facility] CPT-10228 Level 4 Est. Patient 09:22:18 SPECIAL OFFICER Gareth Cancino MD [facility] CPT-21350 Level 3 Est. Patient 09:48:04 CDT Gareth Cancino MD [facility] CPT-49907 Level 3 Est. Patient 10:13:16 CDT Gareth Cancino MD [facility] CPT-89978 Level 2 Est. Patient 18:36:56 CDT Gareth Cancino MD [facility] CPT-08097 Level 4 Est. Patient 13:50:53 CDT Gareth Cancino MD [facility] CPT-42496 Level 3 Est. Patient 14:58:33 SPECIAL OFFICER Gareth Cancino MD [facility] CPT-25907 Level 4 Est. Patient 09:25:57 CDT Gareth Cancino MD [facility] CPT-05788 Level 3 Est. Patient 20:39:33 CDT Noman Edwards DO [facility] CPT-97385 Level 2 Est. Patient 13:17:39 CDT Gareth Cancino MD [facility]-21584 Level 3 Est. Patient 13:37:20 CDT Gareth Cancino MD [facility] CPT-38377 Level 3 Est. Patient 18:09:08 CDT Gareth Cancino MD [facility] CPT-35036 Level 4 Est. Patient 09:59:07 CDT Gareth Cancino MD [facility] Procedures Code Procedure Name Date Entry Date Standard Description CPT-000 Give Appropriate Flu Vaccine 09:29:52 SPECIAL OFFICER CPT-000 Give Appropriate Flu Vaccine 09:22:20 SPECIAL OFFICER CPT-00578 TSH - LAB USE ONLY 08:11:40 SPECIAL OFFICER CPT-12716 Free T4 - LAB USE ONLY 08:11:40 SPECIAL OFFICER CPT-36244 Venipuncture Draw Fee 08:11:40 SPECIAL OFFICER CPT-28455 UA w micro - LAB USE ONLY 14:26:22 SPECIAL OFFICER CPT-G0438 Initial Annual Wellness Exam 20:53:25 SPECIAL OFFICER CPT-G0009 Administration of Pneumococcal Vaccine 11:42:53 SPECIAL OFFICER CPT-96115 Prevnar 13 Intramuscular Suspension 11:42:53 SPECIAL OFFICER 01/07 CPT-34492 First Vx - Ix admin for Medicare patients 11:39:44 SPECIAL OFFICER CPT-69850 Fluzone High-Dose Intramuscular Suspension 11:39:44 SPECIAL OFFICER CPT-32564 Prevnar 13 Intramuscular Suspension 09:29:52 SPECIAL OFFICER 01/07 CPT-95443 CMP - LAB USE ONLY 16:31:15 CDT CPT-00940 CBC - LAB USE ONLY 16:31:14 CDT CPT-96328 Venipuncture Draw Fee 16:31:14 CDT CPT-40877 BMP - LAB USE ONLY 14:37:27 CDT CPT-86123 CBC - LAB USE ONLY 14:37:27 CDT CPT-71865 Venipuncture Draw Fee 14:37:27 CDT CPT-TCMM Transitional Care Mgmt-Moderate 14:43:38 CDT CPT-96770 Venipuncture Draw Fee 10:33:47 CDT CPT-18205 BMP - LAB USE ONLY 10:33:46 CDT CPT-Cryo Cryotherapy 15:12:03 CDT CPT-80192 LS spine AP and Lat - XRAY USE ONLY 10:31:51 CDT 07/27 CPT-92968 Punch biopsy 1 lsn 20:40:09 CDT CPT-G0008 Administration of Influenza Virus Vaccine 10:04:48 SPECIAL OFFICER CPT-46474 Fluzone High-Dose Intramuscular Suspension 10:04:48 SPECIAL OFFICER CPT-56170 Ribs unilat w PA chst min 3V 10:45:40 CDT CPT-LR Lesion Removal 13:14:55 CDT CPT-Cryo Cryotherapy 13:14:55 CDT CPT-50575 Venipuncture Draw Fee 10:25:49 CDT CPT-03261 Administration single or combination vaccine inc oral 13 :22:14 SPECIAL OFFICER CPT-22380 Influenza High Dose age 65+ 13:22:14 SPECIAL OFFICER
--- OUTSIDE RECORDS SUMMARY | 2016-12-06 08:10 | XMS REPORT ---
Author Author [employer] [facility] Medical Staff Organization [facility] Address [address] [phone] Phone [phone] Summary purpose TRANSITION OF CARE AUTO GENERATION [...] tests and/or laboratory data RESULTS Radiology Results [id number] Bilateral Screen Digital Mammo PACs Image DATE OF EXAM: 2015 [facility] 0845-BILAT SCREEN DIG MAMMO : RADIOLOGY REPORT DATE OF SERVICE: 05/28/15 HISTORY: Screening exam BILATERAL DIGITAL SCREENING MAMMOGRAM WITH iCAD SecondLook 7.2-H+ 0917 HOURS Comparison is made with 11/05/2013 and 10/10/2012. There are scattered residual fibroglandular densities. There are no masses or grouped microcalculi. There is no distortion or asymmetry. IMPRESSION: Negative mammograms BI-RADS I. Fidel White MD [facility]/ct05/28/2015 09:49:00 / 05/28/2015 09:53:01 cc:Dr. Gareth Cancino This document has been electronically Signed by: On: DATE OF EXAM: 2015 [facility] 0845-BILAT SCREEN DIG MAMMO : RADIOLOGY REPORT DATE OF SERVICE: 05/28/15 HISTORY: Screening exam BILATERAL DIGITAL SCREENING MAMMOGRAM WITH iCAD SecondLook 7.2-H+ 0917 HOURS Comparison is made with 11/05/2013 and 10/10/2012. There are scattered residual fibroglandular densities. There are no masses or grouped microcalculi. There is no distortion or asymmetry. IMPRESSION: Negative mammograms BI-RADS I. Fidel White MD [facility]/nh05/28/2015 09:49:00 / 05/28/2015 09:53:01 cc:Dr. Gareth Cancino This document has been electronically Signed by: FIDEL WHITE MD On: 2015 10:37A Result Amended on 2015-05-28 at 10:37:58. Previous status was [place]. History of procedures No procedures recorded for this patient visit. Functional status No functional or cognitive status [...]
--- OUTSIDE RECORDS SUMMARY | 2016-12-06 08:11 | XMS REPORT | Clinical Summary ---
Author Author Admin, HILARIA Organization [employer] Address Unknown Phone Unavailable Allergies, Adverse Reactions, [...] cause Skin lesion 709.9 Active Blanca Castillo ENTERPRISE INTEGRATION DEVELOPER Unspecified disorder of skin and subcutaneous tissue Folliculitis 704.8 Active Gareth Cancino MD Other specified diseases of hair and hair follicles Low back pain, chronic 724.2 Active Gareth Cancino MD Lumbago Frequency of urination 788.41 Active Negin Garcia PATTERN MAKER Urinary frequency Actinic keratosis 702.0 Active Gareth Cancino MD Actinic keratosis Pneumonia 486 Active Gareth Cancino MD Pneumonia, organism unspecified Hypokalemia 276.8 Active Gareth Cancino MD Hypopotassemia Spinal stenosis 724.00 Active Gareth Cancino MD Spinal stenosis of unspecified region Dizziness 780.4 Active Gareth Cancino MD Dizziness and giddiness Bronchitis-Acute ICD-466.0 Inactive Gareth Cancino MD Medication List Medication Instructions Start Date Stop Date Generic Name NDC Status Provider Patient Instruction AZITHROMYCIN 250 MG ORAL TABS 1 tab daily AZITHROMYCIN 64490218795 No Longer Active Gareth Cancino MD Active ZITHROMAX 250 MG TAB 2 po today, then 1 po q days 2-5 AZITHROMYCIN 75550924310 No Longer Active Tangela Forte Active IPRATROPIUM-ALBUTEROL 0.5-2.5 (3) MG/3ML INH SOLN nebulize 1 vial every 6hrs prn shortness of breath IPRATROPIUM-ALBUTEROL 49886304182 Active Gareth Cancino MD Active FENTANYL 25 MCG/HR PT72 Apply to clean, dry skin and change every 72 hours FENTANYL 83121635245 Active Gareth Cancino MD Active WELLBUTRIN SR 150 MG ORAL [id number] take 1 tab po BID BUPROPION HCL 66159662866 No Longer Active Gareth Cancino MD Active ZOFRAN 4 MG ORAL TABS 1 by mouth every 6 hours prn nausea ONDANSETRON HCL 53932530734 Active Tangela Forte Active TRAMADOL HCL 50 MG TABS 1 po tid PRN TRAMADOL HCL 73530583345 Active Gareth Cancino MD Active HYDROCODONE-ACETAMINOPHEN 5-325 MG TABS 1 tab by mouth every 6 hours as needed for bck pain HYDROCODONE-ACETAMINOPHEN 05673960552 Active Gareth Cancino MD Active ALPRAZOLAM 0.25 MG TAB 1/2 to 1 tablet by mouth qhs prn ALPRAZOLAM 67820686690 No Longer Active Gareth Cancino MD Active CLOBETASOL PROPIONATE 0.05 % CREA apply to hand rash bid CLOBETASOL PROPIONATE 52688429889 No Longer Active Gareth Cancino MD Active BACTROBAN 2 % CREAM Apply to affected area BID MUPIROCIN CALCIUM 85817817429 No Longer Active Gareth Cancino MD Active LISINOPRIL 20 MG TABS 1 tablet by mouth daily for high blood pressure 10/14 LISINOPRIL 58808599061 Active Gareth Cancino MD Active BACTRIM DS 800-160 MG TAB 1 tab by mouth twice daily TRIMETHOPRIM-SULFAMETHOXAZOLE 92804651329 No Longer Active Gareth Cancino MD Active METOPROLOL SUCCINATE ER 100 MG [id number] 1 pill by mouth daily, for blood pressure METOPROLOL SUCCINATE 90032885309 Active Gareth Cancino MD Active KEFLEX 500 MG CAP 1 po TID x 10 days CEPHALEXIN 16704091631 No Longer Active Blanca Castillo APRN Active METOPROLOL SUCCINATE 50 MG TB24 1 tablet by mouth daily METOPROLOL SUCCINATE 29234033243 No Longer Active Gareth Cancino MD Active OMEPRAZOLE 20 MG TBEC Take one by mouth daily OMEPRAZOLE 48510999534 No Longer Active Gareth Cancino MD Active OMEPRAZOLE 40 MG CPDR 1 tab po qday for acid reflux. OMEPRAZOLE 63020978207 Active Mary Shah APRN Active LEVAQUIN 500 MG TAB 1 tablet by mouth daily LEVOFLOXACIN 06150036879 No Longer Active Gareth Cancino MD Active ALEVE 220 MG TAB 2 tab po qd NAPROXEN SODIUM 26050538752 Active Gareth Cancino MD Active ASPIRIN 81 MG CHEW TAB 1 tablet by mouth daily ASPIRIN 02805587548 Active Gareth Cancino MD Active VENTOLIN HFA 108 (90 BASE) MCG/ACT AERS 1-2 puffs four times a day PRN shortness of breath ALBUTEROL SULFATE 30983251012 Active Mary Shah ENTERPRISE INTEGRATION DEVELOPER Active CENTRUM SILVER TABS 1 TAB PO DAILY MULTIPLE VITAMINS-MINERALS 29627987147 Active Gareth Cancino MD Active VITAMIN B12 100 MCG TABS 1 TAB PO DAILY CYANOCOBALAMIN 18512860253 Active Gareth Cancino MD Active CIPRO 500 MG TABS 1 TAB PO BID CIPROFLOXACIN HCL 29790485042 No Longer Active Gareth Cancino MD Active BACTRIM DS 800-160 MG TAB 1 tab by mouth twice daily TRIMETHOPRIM-SULFAMETHOXAZOLE 71537072366 No Longer Active Gareth Cancino MD Active PREDNISONE 20 MG TAB 1 tab po BID for 3 days, then 1 tab po qday for 3 days PREDNISONE 70131711610 No Longer Active Gareth Cancino MD Active FOLIC ACID 800 MCG TABS Take one by mouth daily FOLIC ACID 45678729693 No Longer Active Gareth Cancino MD Active VITAMIN B-6 250 MG TABS Take one by mouth daily PYRIDOXINE HCL 98108828273 No Longer Active Gareth Cancino MD Active B-12 1000 MCG CAPS Take one by mouth daily CYANOCOBALAMIN 80474961038 No Longer Active Gareth Cancino MD Active DOXYCYCLINE HYCLATE 100 MG CAP 1 cap by mouth twice daily DOXYCYCLINE HYCLATE 68705030135 No Longer Active Gareth Cancino MD Active PREDNISONE 20 MG TAB 1 po bid 3 days, then 1 po q day 3 days 2011 PREDNISONE 25434154870 No Longer Active Gareth Cancino MD Active CHANTIX STARTING MONTH RUBEN 0.5 MG X 11 & 1 MG X 42 TABS 0.5mg daily for 3 days , then 0.5mg BID for 4 days, then 1mg BID VARENICLINE TARTRATE 67001830801 No Longer Active Gareth Cancino MD Active SIMVASTATIN 40 MG TABS Take one by mouth daily SIMVASTATIN 33807677743 Active Gareth Cancino MD Active TRIAMTERENE-HCTZ 37.5-25 MG CAPS Take one by mouth daily TRIAMTERENE- HCTZ 40966921033 Active Gareth Cancino MD Active CHANTIX STARTING [...] 3 days 2011 PREDNISONE 20 MG TAB 676324 PREDNISONE Inactive DOXYCYCLINE HYCLATE 100 MG CAP 1 cap by mouth twice daily DOXYCYCLINE HYCLATE 100 MG CAP 6678895 DOXYCYCLINE HYCLATE Inactive B-12 1000 MCG CAPS Take one by mouth daily B-12 1000 MCG CAPS CYANOCOBALAMIN Inactive VITAMIN B-6 250 MG TABS Take one by mouth daily VITAMIN B-6 250 MG TABS PYRIDOXINE HCL Inactive FOLIC ACID 800 MCG TABS Take one by mouth daily FOLIC ACID 800 MCG TABS 441120 FOLIC ACID Inactive CIPRO 500 MG TABS 1 TAB PO BID CIPRO 500 MG TABS 390589 CIPROFLOXACIN HCL Inactive OMEPRAZOLE 20 MG TBEC Take one by mouth daily OMEPRAZOLE 20 MG TBEC 633513 OMEPRAZOLE Inactive METOPROLOL SUCCINATE 50 MG TB24 1 tablet by mouth daily METOPROLOL SUCCINATE 50 MG TB24 METOPROLOL SUCCINATE Inactive BACTROBAN 2 % CREAM Apply to affected area BID BACTROBAN 2 % CREAM 078115 MUPIROCIN CALCIUM Inactive CLOBETASOL PROPIONATE 0.05 % CREA apply to hand rash bid 2016/06/ 06 CLOBETASOL PROPIONATE 0.05 % CREA 939201 CLOBETASOL PROPIONATE Inactive ALPRAZOLAM 0.25 MG TAB 1/2 to 1 tablet by mouth qhs prn ALPRAZOLAM 0.25 MG TAB 412462 ALPRAZOLAM Inactive WELLBUTRIN SR 150 MG ORAL [id number] take 1 tab po BID WELLBUTRIN SR 150 MG ORAL [id number] BUPROPION HCL Inactive AZITHROMYCIN 250 MG ORAL TABS 1 tab daily AZITHROMYCIN 250 MG ORAL TABS 8750354 AZITHROMYCIN Inactive PREDNISONE 20 MG TAB 1 tab po BID for 3 days, then 1 tab po qday for 3 days PREDNISONE 20 MG TAB 015223 PREDNISONE Inactive BACTRIM DS 800-160 MG TAB 1 tab by mouth twice daily BACTRIM DS 800-160 MG TAB 641231 TRIMETHOPRIM-SULFAMETHOXAZOLE Inactive LEVAQUIN 500 MG TAB 1 tablet by mouth daily LEVAQUIN 500 MG TAB 610840 LEVOFLOXACIN Inactive KEFLEX 500 MG CAP 1 po TID x 10 days KEFLEX 500 MG CAP 214239 CEPHALEXIN Inactive BACTRIM DS 800-160 MG TAB 1 tab by mouth twice daily BACTRIM DS 800-160 MG TAB 916587 TRIMETHOPRIM-SULFAMETHOXAZOLE Inactive ZITHROMAX 250 MG TAB 2 po today, then 1 po q days 2-5 ZITHROMAX 250 MG TAB 7350185 AZITHROMYCIN Inactive Vital Signs Date Name Value [...] Panel - Chemistry sodium, serum 133 mmol/L 748-938 2594/08/24 potassium, serum 4.4 mmol/L 3.5-5.2 chloride, serum 95 mmol/L 98-107 carbon dioxide, venous blood 33.0 mmol/L 21.0-32.0 blood glucose 107 mg/dL 65-110 calcium, serum 8.8 mg/dL 8.5-10.1 urea nitrogen, blood 12 mg/dL 7-18 creatinine, serum 0.69 mg/dL 0.55-1.30 Lab Report: CBC, Basic Metabolic Panel - Chemistry sodium, serum 132 mmol/L 680-580 6121/10/12 potassium, serum 4.7 mmol/L 3.5-5.2 chloride, serum [...] CBC - Chemistry sodium, serum 136 mmol/L 527-501 0216/11/01 carbon dioxide, venous blood 32.1 mmol/L 21.0-32.0 [...] mg/g mg/g{creat} 0-29 cholesterol, serum 195 mg/dL 281-895 4544/12/02 triglyceride, serum, fasting 74 mg/dL 30-200 HDL cholesterol, serum 52 mg/dL 32-96 LDL cholesterol, serum 128 mg/dL 0-130 sodium, serum 134 mmol/L 449-097 6402/12/02 carbon dioxide, venous blood 30.3 mmol/L 21.0-32.0 [...] 5.0-8.5 Encounters Code Encounter Date Provider Facility CPT-13038 Level 3 Est. Patient 10:34:55 CDT Gareth Cancino MD [facility] CPT-48214 Level 4 Est. Patient 09:00:18 CDT Gareth Cancino MD [facility] CPT-77670 Level 3 Est. Patient 15:12:03 CDT Gareth Cancino MD [facility] CPT-19364 Level 3 Est. Patient 23:08:20 CDT Gareth Cancino MD [facility] CPT-70461 Level 4 Est. Patient 20:40:10 CDT Gareth Cancino MD [facility] CPT-35100 Level 4 Est. Patient 19:50:11 CDT Gareth Cancino MD [facility] CPT-05993 Level 3 Est. Patient 11:00:13 CDT Gareth Cancino MD [facility] CPT-00264 Level 4 Est. Patient 11:20:21 CDT Gareth Cancino MD [facility] CPT-85131 Level 4 Est. Patient 09:22:18 LINEN CHECKER Gareth Cancino MD [facility] CPT-53108 Level 3 Est. Patient 09:48:04 CDT Gareth Cancino MD [facility] CPT-08219 Level 3 Est. Patient 10:13:16 CDT Gareth Cancino MD [facility] CPT-48891 Level 2 Est. Patient 18:36:56 CDT Gareth Cancino MD [facility] CPT-84855 Level 4 Est. Patient 13:50:53 CDT Gareth Cancino MD [facility] CPT-05632 Level 3 Est. Patient 14:58:33 LINEN CHECKER Gareth Cancino MD [facility] CPT-55933 Level 4 Est. Patient 09:25:57 CDT Gareth Cancino MD [facility] CPT-31298 Level 3 Est. Patient 20:39:33 CDT Noman Edwards DO [facility] CPT-46430 Level 2 Est. Patient 13:17:39 CDT Gareth Cancino MD [facility] CPT-01622 Level 3 Est. Patient 13:37:20 CDT Gareth Cancino MD [facility] CPT-00941 Level 3 Est. Patient 18:09:08 CDT Gareth Cancino MD [facility] CPT-23797 Level 4 Est. Patient 09:59:07 CDT Gareth Cancino MD [facility] Procedures Code Procedure Name Date Entry Date Standard Description CPT-84589 CMP - LAB USE ONLY 16:31:15 CDT CPT-34807 CBC - LAB USE ONLY 16:31:14 CDT CPT-69354 Venipuncture Draw Fee 16:31:14 CDT CPT-67517 BMP - LAB USE ONLY 14:37:27 CDT CPT-97452 CBC - LAB USE ONLY 14:37:27 CDT CPT-09274 Venipuncture Draw Fee 14:37:27 CDT CPT-TCMM Transitional Care Mgmt-Moderate 14:43:38 CDT CPT-29276 Venipuncture Draw Fee 10:33:47 CDT CPT-12536 BMP - LAB USE ONLY 10:33:46 CDT CPT-Cryo Cryotherapy 15:12:03 CDT CPT-22954 LS spine AP and Lat - XRAY USE ONLY 10:31:51 CDT 07/27 CPT-49863 Punch biopsy 1 lsn 20:40:09 CDT CPT-G0008 Administration of Influenza Virus Vaccine 10:04:48 LINEN CHECKER CPT-63604 Fluzone High-Dose Intramuscular Suspension 10:04:48 LINEN CHECKER CPT-51926 Ribs unilat w PA chst min 3V 10:45:40 CDT CPT-LR Lesion Removal 13:14:55 CDT CPT-Cryo Cryotherapy 13:14:55 CDT CPT-25638 Venipuncture Draw Fee 10:25:49 CDT CPT-13816 Administration single or combination vaccine inc oral 13 :22:14 LINEN CHECKER CPT-90143 Influenza High Dose age 65+ 13:22:14 LINEN CHECKER
--- OUTSIDE RECORDS SUMMARY | 2016-12-06 08:12 | XMS REPORT | Clinical Summary ---
Author Author Admin, Leon Organization [employer] Address Unknown Phone Unavailable Allergies, Adverse Reactions, [...] 1 tablet by mouth qhs prn ALPRAZOLAM 61380146256 No Longer Active Gareth Cancino MD Active CLOBETASOL PROPIONATE 0.05 % CREA apply to hand rash bid CLOBETASOL PROPIONATE 99949758835 No Longer Active Gareth Cancino MD Active BACTROBAN 2 % CREAM Apply to affected area BID MUPIROCIN CALCIUM 81249673536 No Longer Active Gareth Cancino MD Active LISINOPRIL 20 MG TABS 1 tablet by mouth daily for high blood pressure 10/14 LISINOPRIL 48198142488 Active Gareth Cancino MD Active BACTRIM DS 800-160 MG TAB 1 tab by mouth twice daily TRIMETHOPRIM-SULFAMETHOXAZOLE 65263743737 No Longer Active Gareth Cancino MD Active METOPROLOL SUCCINATE ER 100 MG [id number] 1 pill by mouth daily, for blood pressure METOPROLOL SUCCINATE 82859991899 Active Gareth Cancino MD Active KEFLEX 500 MG CAP 1 po TID x 10 days CEPHALEXIN 28577721614 No Longer Active Blanca Castillo APRN Active WELLBUTRIN SR 150 MG ORAL [id number] take 1 tab po BID BUPROPION HCL 88503891757 Active Gareth Cancino MD Active METOPROLOL SUCCINATE 50 MG TB24 1 tablet by mouth daily METOPROLOL SUCCINATE 91352988866 No Longer Active Gareth Cancino MD Active OMEPRAZOLE 20 MG TBEC Take one by mouth daily OMEPRAZOLE 65254281274 No Longer Active Gareth Cancino MD Active OMEPRAZOLE 40 MG CPDR 1 tab po qday for acid reflux. OMEPRAZOLE 98752383592 Active Mary Shah APRN Active LEVAQUIN 500 MG TAB 1 tablet by mouth daily LEVOFLOXACIN 65237075909 No Longer Active Gareth Cancino MD Active ALEVE 220 MG TAB 2 tab po qd NAPROXEN SODIUM 04398744893 Active Gareth Cancino MD Active ASPIRIN 81 MG CHEW TAB 1 tablet by mouth daily ASPIRIN 54995098625 Active Gareth Cancino MD Active VENTOLIN HFA 108 (90 BASE) MCG/ACT AERS 1-2 puffs four times a day PRN shortness of breath ALBUTEROL SULFATE 13926426381 Active Mary Shah ROTOR ASSEMBLER Active CENTRUM SILVER TABS 1 TAB PO DAILY MULTIPLE VITAMINS-MINERALS 08205239661 Active Gareth Cancino MD Active VITAMIN B12 100 MCG TABS 1 TAB PO DAILY CYANOCOBALAMIN 61021176040 Active Gareth Cancino MD Active CIPRO 500 MG TABS 1 TAB PO BID CIPROFLOXACIN HCL 21724733847 No Longer Active Gareth Cancino MD Active BACTRIM DS 800-160 MG TAB 1 tab by mouth twice daily TRIMETHOPRIM-SULFAMETHOXAZOLE 84169981245 No Longer Active Gareth Cancino MD Active PREDNISONE 20 MG TAB 1 tab po BID for 3 days, then 1 tab po qday for 3 days PREDNISONE 33768303229 No Longer Active Gareth Cancino MD Active FOLIC ACID 800 MCG TABS Take one by mouth daily FOLIC ACID 56417283675 No Longer Active Gareth Cancino MD Active VITAMIN B-6 250 MG TABS Take one by mouth daily PYRIDOXINE HCL 31315365403 No Longer Active Gareth Cancino MD Active B-12 1000 MCG CAPS Take one by mouth daily CYANOCOBALAMIN 24312098810 No Longer Active Gareth Cancino MD Active DOXYCYCLINE HYCLATE 100 MG CAP 1 cap by mouth twice daily DOXYCYCLINE HYCLATE 42778056641 No Longer Active Gareth Cancino MD Active PREDNISONE 20 MG TAB 1 po bid 3 days, then 1 po q day 3 days 2011 PREDNISONE 32383178216 No Longer Active Gareth Cancino MD Active CHANTIX STARTING MONTH RUBEN 0.5 MG X 11 & 1 MG X 42 TABS 0.5mg daily for 3 days , then 0.5mg BID for 4 days, then 1mg BID VARENICLINE TARTRATE 53881894264 No Longer Active Gareth Cancino MD Active SIMVASTATIN 40 MG TABS Take one by mouth daily SIMVASTATIN 86329035158 Active Gareth Cancino MD Active TRIAMTERENE-HCTZ 37.5-25 MG CAPS Take one by mouth daily TRIAMTERENE- HCTZ 89341400415 Active Gareth Cancino MD Active CHANTIX STARTING [...] 3 days 2011 PREDNISONE 20 MG TAB 664302 PREDNISONE Inactive DOXYCYCLINE HYCLATE 100 MG CAP 1 cap by mouth twice daily DOXYCYCLINE HYCLATE 100 MG CAP 8486467 DOXYCYCLINE HYCLATE Inactive B-12 1000 MCG CAPS Take one by mouth daily B-12 1000 MCG CAPS CYANOCOBALAMIN Inactive VITAMIN B-6 250 MG TABS Take one by mouth daily VITAMIN B-6 250 MG TABS PYRIDOXINE HCL Inactive FOLIC ACID 800 MCG TABS Take one by mouth daily FOLIC ACID 800 MCG TABS 847557 FOLIC ACID Inactive CIPRO 500 MG TABS 1 TAB PO BID CIPRO 500 MG TABS 130903 CIPROFLOXACIN HCL Inactive OMEPRAZOLE 20 MG TBEC Take one by mouth daily OMEPRAZOLE 20 MG TBEC 475050 OMEPRAZOLE Inactive METOPROLOL SUCCINATE 50 MG TB24 1 tablet by mouth daily METOPROLOL SUCCINATE 50 MG TB24 METOPROLOL SUCCINATE Inactive BACTROBAN 2 % CREAM Apply to affected area BID BACTROBAN 2 % CREAM 037262 MUPIROCIN CALCIUM Inactive CLOBETASOL PROPIONATE 0.05 % CREA apply to hand rash bid CLOBETASOL PROPIONATE 0.05 % CREA 184784 CLOBETASOL PROPIONATE Inactive ALPRAZOLAM 0.25 MG TAB 1/2 to 1 tablet by mouth qhs prn ALPRAZOLAM 0.25 MG TAB 368572 ALPRAZOLAM Inactive PREDNISONE 20 MG TAB 1 tab po BID for 3 days, then 1 tab po qday for 3 days PREDNISONE 20 MG TAB 568229 PREDNISONE Inactive BACTRIM DS 800-160 MG TAB 1 tab by mouth twice daily BACTRIM DS 800-160 MG TAB 685270 TRIMETHOPRIM-SULFAMETHOXAZOLE Inactive LEVAQUIN 500 MG TAB 1 tablet by mouth daily LEVAQUIN 500 MG TAB 425460 LEVOFLOXACIN Inactive KEFLEX 500 MG CAP 1 po TID x 10 days KEFLEX 500 MG CAP 137001 CEPHALEXIN Inactive BACTRIM DS 800-160 MG TAB 1 tab by mouth twice daily BACTRIM DS 800-160 MG TAB 307919 TRIMETHOPRIM-SULFAMETHOXAZOLE Inactive Vital Signs Date Name Value [...] ... - Chemistry cholesterol, serum 195 mg/dL 406-389 8646/12/02 triglyceride, serum, fasting 74 mg/dL 30-200 HDL cholesterol, serum 52 mg/dL 32-96 LDL cholesterol, serum 128 mg/dL 0-130 sodium, serum 134 mmol/L 297-200 6193/12/02 carbon dioxide, venous blood 30.3 mmol/L 21.0-32.0 [...] 0-19 Encounters Code Encounter Date Provider Facility CPT-20333 Level 3 Est. Patient 23:08:20 CDT Gareth Cancino MD [facility] CPT-80111 Level 4 Est. Patient 20:40:10 CDT Gareth Cancino MD [facility] CPT-21375 Level 4 Est. Patient 19:50:11 CDT Gareth Cancino MD [facility] CPT-08182 Level 3 Est. Patient 11:00:13 CDT Gareth Cancino MD [facility] CPT-89907 Level 4 Est. Patient 11:20:21 CDT Gareth Cancino MD [facility] CPT-26776 Level 4 Est. Patient 09:22:18 PUBLIC SERVICE DIRECTOR Gareth Cacnino MD [facility] CPT-76428 Level 3 Est. Patient 09:48:04 CDT Gareth Cancino MD [facility] CPT-13551 Level 3 Est. Patient 10:13:16 CDT Gareth Cancino MD [facility] CPT-06049 Level 2 Est. Patient 18:36:56 CDT Gareth Cancino MD [facility] CPT-55854 Level 4 Est. Patient 13:50:53 CDT Gareth Cancino MD [facility] CPT-89654 Level 3 Est. Patient 14:58:33 PUBLIC SERVICE DIRECTOR Gareth Cancino MD [facility] CPT-48793 Level 4 Est. Patient 09:25:57 CDT Gareth Cancino MD [facility] CPT-52239 Level 3 Est. Patient 20:39:33 CDT Noman Edwards DO [facility] CPT-82775 Level 2 Est. Patient 13:17:39 CDT Gareth Cancino MD [facility] CPT-63425 Level 3 Est. Patient 13:37:20 CDT Gareth Cancino MD [facility] CPT-41730 Level 3 Est. Patient 18:09:08 CDT Gareth Cancino MD [facility] CPT-85882 Level 4 Est. Patient 09:59:07 CDT Gareth Cancino MD [facility] Procedures Code Procedure Name Date Entry Date Standard Description CPT-04649 LS spine AP and Lat - XRAY USE ONLY 10:31:51 CDT 07/27 CPT-76237 Punch biopsy 1 lsn 20:40:09 CDT CPT-G0008 Administration of Influenza Virus Vaccine 10:04:48 PUBLIC SERVICE DIRECTOR CPT-16167 Fluzone High-Dose Intramuscular Suspension 10:04:48 PUBLIC SERVICE DIRECTOR CPT-44206 Ribs unilat w PA chst min 3V 10:45:40 CDT CPT-LR Lesion Removal 13:14:55 CDT CPT-Cryo Cryotherapy 13:14:55 CDT CPT-58575 Venipuncture Draw Fee 10:25:49 CDT CPT-58124 Administration single or combination vaccine inc oral 13 :22:14 PUBLIC SERVICE DIRECTOR CPT-95199 Influenza High Dose age 65+ 13:22:14 PUBLIC SERVICE DIRECTOR
--- OUTSIDE RECORDS SUMMARY | 2016-12-06 08:12 | XMS REPORT | Clinical Summary ---
Author Author Admin, HILARIA Organization [employer] Address Unknown Phone Unavailable Allergies, Adverse Reactions, [...] po daily as needed for arthritis/pain PIROXICAM 35531523163 Active Tangela Raida Active ZITHROMAX Z-RUBEN 250 MG TABS 2 today, then 1 daily for 4 days 2016 AZITHROMYCIN 54268954112 No Longer Active Tangela Forte Active FENTANYL 25 MCG/HR TRANS PT72 1 patch every 72 hours FENTANYL 66721783975 Active Mary Shah APRN Active PREDNISONE 20 MG TAB take 3 tabs daily for 3 days, 2 tabs daily for 3 days, 1 tab daily for 3 days, 1/2 tab daily for 4 days PREDNISONE 46568216451 No Longer Active Mary Shah APRN Active LEVAQUIN 500 MG TAB 1 tablet by mouth daily for 7 days LEVOFLOXACIN 15848300867 Active Mary Shah APRN Active AZITHROMYCIN 250 MG TABS 2 po qd x 1 day, then 1 po qd x 4 days AZITHROMYCIN 20293310641 No Longer Active Danuta Rian Active AZITHROMYCIN 250 MG TABS 2 po qd x 1 day, then 1 po qd x 4 days AZITHROMYCIN 39594816576 No Longer Active Tangela Forte Active HYDROCODONE-ACETAMINOPHEN 5-325 MG TABS 1 tab by mouth every 6 hours as needed for bck pain HYDROCODONE-ACETAMINOPHEN 26880401660 No Longer Active Gareth Cancino MD Active ALPRAZOLAM 0.25 MG TAB 1 tablet by mouth q hs prn ALPRAZOLAM 27952990236 Active Gareth Cancino MD Active AZITHROMYCIN 250 MG ORAL TABS 1 tab daily AZITHROMYCIN 96638654296 No Longer Active Gareth Cancino MD Active ZITHROMAX 250 MG TAB 2 po today, then 1 po q days 2-5 AZITHROMYCIN 97670087630 No Longer Active Tangela Rameseret Active IPRATROPIUM-ALBUTEROL 0.5-2.5 (3) MG/3ML INH SOLN nebulize 1 vial every 6hrs prn shortness of breath IPRATROPIUM-ALBUTEROL 85726702964 Active Gareth Cancino MD Active FENTANYL 25 MCG/HR PT72 Apply to clean, dry skin and change every 72 hours FENTANYL 89982032082 No Longer Active Gareth Cancino MD Active WELLBUTRIN SR 150 MG ORAL [id number] take 1 tab po BID BUPROPION HCL 86641056617 No Longer Active Gareth Cancino MD Active ZOFRAN 4 MG ORAL TABS 1 by mouth every 6 hours prn nausea ONDANSETRON HCL 06654506234 Active Tangela Forte Active TRAMADOL HCL 50 MG TABS 1 po tid PRN TRAMADOL HCL 23774104395 Active Gareth Cancino MD Active ALPRAZOLAM 0.25 MG TAB 1/2 to 1 tablet by mouth qhs prn ALPRAZOLAM 88503905833 No Longer Active Gareth Cancino MD Active CLOBETASOL PROPIONATE 0.05 % CREA apply to hand rash bid CLOBETASOL PROPIONATE 12727379034 No Longer Active Gareth Cancino MD Active BACTROBAN 2 % CREAM Apply to affected area BID MUPIROCIN CALCIUM 16562539196 No Longer Active Gareth Cancino MD Active LISINOPRIL 20 MG TABS 1 tablet by mouth daily for high blood pressure 10/14 LISINOPRIL 34043090654 Active Mary Shah APRN Active BACTRIM DS 800-160 MG TAB 1 tab by mouth twice daily TRIMETHOPRIM-SULFAMETHOXAZOLE 70425067348 No Longer Active Gareth Cancino MD Active METOPROLOL SUCCINATE ER 100 MG [id number] 1 pill by mouth daily, for blood pressure METOPROLOL SUCCINATE 60163016837 Active Mary Shah APRN Active KEFLEX 500 MG CAP 1 po TID x 10 days CEPHALEXIN 75782659168 No Longer Active Blanca Castillo APRN Active METOPROLOL SUCCINATE 50 MG TB24 1 tablet by mouth daily METOPROLOL SUCCINATE 49939033249 No Longer Active Gareth Cancino MD Active OMEPRAZOLE 20 MG TBEC Take one by mouth daily OMEPRAZOLE 71436650932 No Longer Active Gareth Cancino MD Active OMEPRAZOLE 40 MG CPDR 1 tab po qday for acid reflux. OMEPRAZOLE 12954111949 Active Mary Shah APRN Active LEVAQUIN 500 MG TAB 1 tablet by mouth daily LEVOFLOXACIN 37006281909 No Longer Active Gareth Cancino MD Active ALEVE 220 MG TAB 2 tab po qd NAPROXEN SODIUM 33541111416 Active Gareth Cancino MD Active ASPIRIN 81 MG CHEW TAB 1 tablet by mouth daily ASPIRIN 15252902408 Active Gareth Cancino MD Active VENTOLIN HFA 108 (90 BASE) MCG/ACT AERS 1-2 puffs four times a day PRN shortness of breath ALBUTEROL SULFATE 88363932356 Active Mary Shah APRN Active CENTRUM SILVER TABS 1 TAB PO DAILY MULTIPLE VITAMINS-MINERALS 60243133852 Active Gareth Cancino MD Active VITAMIN B12 100 MCG TABS 1 TAB PO DAILY CYANOCOBALAMIN 16318174677 Active Gareth Cancino MD Active CIPRO 500 MG TABS 1 TAB PO BID CIPROFLOXACIN HCL 76980117729 No Longer Active Gareth Cancino MD Active BACTRIM DS 800-160 MG TAB 1 tab by mouth twice daily TRIMETHOPRIM-SULFAMETHOXAZOLE 29536362767 No Longer Active Gareth Cancino MD Active PREDNISONE 20 MG TAB 1 tab po BID for 3 days, then 1 tab po qday for 3 days PREDNISONE 95167840231 No Longer Active Gareth Cancino MD Active FOLIC ACID 800 MCG TABS Take one by mouth daily FOLIC ACID 08256993057 No Longer Active Gareth Cancino MD Active VITAMIN B-6 250 MG TABS Take one by mouth daily PYRIDOXINE HCL 44310590204 No Longer Active Gareth Cancino MD Active B-12 1000 MCG CAPS Take one by mouth daily CYANOCOBALAMIN 52252134782 No Longer Active Garteh Cancino MD Active DOXYCYCLINE HYCLATE 100 MG CAP 1 cap by mouth twice daily DOXYCYCLINE HYCLATE 52910881843 No Longer Active Gareth Cancino MD Active PREDNISONE 20 MG TAB 1 po bid 3 days, then 1 po q day 3 days 2011 PREDNISONE 88416235481 No Longer Active Gareth Cancino MD Active CHANTIX STARTING MONTH RUBEN 0.5 MG X 11 & 1 MG X 42 TABS 0.5mg daily for 3 days , then 0.5mg BID for 4 days, then 1mg BID VARENICLINE TARTRATE 39288427106 No Longer Active Gareth Cancino MD Active SIMVASTATIN 40 MG TABS Take one by mouth daily SIMVASTATIN 36456484575 Active Gareth Cancino MD Active TRIAMTERENE-HCTZ 37.5-25 MG CAPS Take one by mouth daily TRIAMTERENE- HCTZ 91361685982 Active Gareth Cancino MD Active CHANTIX STARTING [...] 3 days 2011 PREDNISONE 20 MG TAB 439766 PREDNISONE Inactive DOXYCYCLINE HYCLATE 100 MG CAP 1 cap by mouth twice daily DOXYCYCLINE HYCLATE 100 MG CAP 8136556 DOXYCYCLINE HYCLATE Inactive B-12 1000 MCG CAPS Take one by mouth daily B-12 1000 MCG CAPS CYANOCOBALAMIN Inactive VITAMIN B-6 250 MG TABS Take one by mouth daily VITAMIN B-6 250 MG TABS PYRIDOXINE HCL Inactive FOLIC ACID 800 MCG TABS Take one by mouth daily FOLIC ACID 800 MCG TABS 398325 FOLIC ACID Inactive CIPRO 500 MG TABS 1 TAB PO BID CIPRO 500 MG TABS 350976 CIPROFLOXACIN HCL Inactive OMEPRAZOLE 20 MG TBEC Take one by mouth daily OMEPRAZOLE 20 MG TBEC 440589 OMEPRAZOLE Inactive METOPROLOL SUCCINATE 50 MG TB24 1 tablet by mouth daily METOPROLOL SUCCINATE 50 MG TB24 METOPROLOL SUCCINATE Inactive BACTROBAN 2 % CREAM Apply to affected area BID BACTROBAN 2 % CREAM 041729 MUPIROCIN CALCIUM Inactive CLOBETASOL PROPIONATE 0.05 % CREA apply to hand rash bid CLOBETASOL PROPIONATE 0.05 % CREA 840248 CLOBETASOL PROPIONATE Inactive ALPRAZOLAM 0.25 MG TAB 1/2 to 1 tablet by mouth qhs prn ALPRAZOLAM 0.25 MG TAB 794492 ALPRAZOLAM Inactive WELLBUTRIN SR 150 MG ORAL [id number] take 1 tab po BID WELLBUTRIN SR 150 MG ORAL [id number] BUPROPION HCL Inactive AZITHROMYCIN 250 MG ORAL TABS 1 tab daily AZITHROMYCIN 250 MG ORAL TABS 2505036 AZITHROMYCIN Inactive HYDROCODONE-ACETAMINOPHEN 5-325 MG TABS 1 tab by mouth every 6 hours as needed for bck pain HYDROCODONE-ACETAMINOPHEN 5-325 MG TABS 994237 HYDROCODONE-ACETAMINOPHEN Inactive PREDNISONE 20 MG TAB 1 tab po BID for 3 days, then 1 tab po qday for 3 days PREDNISONE 20 MG TAB 481458 PREDNISONE Inactive BACTRIM DS 800-160 MG TAB 1 tab by mouth twice daily BACTRIM DS 800-160 MG TAB 500616 TRIMETHOPRIM-SULFAMETHOXAZOLE Inactive LEVAQUIN 500 MG TAB 1 tablet by mouth daily LEVAQUIN 500 MG TAB 095605 LEVOFLOXACIN Inactive KEFLEX 500 MG CAP 1 po TID x 10 days KEFLEX 500 MG CAP 501789 CEPHALEXIN Inactive BACTRIM DS 800-160 MG TAB 1 tab by mouth twice daily BACTRIM DS 800-160 MG TAB 19820425 TRIMETHOPRIM-SULFAMETHOXAZOLE Inactive FENTANYL 25 MCG/HR PT72 Apply to clean, dry skin and change every 72 hours FENTANYL 25 MCG/HR PT72 880005 FENTANYL Inactive ZITHROMAX 250 MG TAB 2 po today, then 1 po q days 2-5 ZITHROMAX 250 MG TAB 4246364 AZITHROMYCIN Inactive AZITHROMYCIN 250 MG TABS 2 po qd x 1 day, then 1 po qd x 4 days AZITHROMYCIN 250 MG TABS 5386771 AZITHROMYCIN Inactive AZITHROMYCIN 250 MG TABS 2 po qd x 1 day, then 1 po qd x 4 days AZITHROMYCIN 250 MG TABS 9194567 AZITHROMYCIN Inactive PREDNISONE 20 MG TAB take 3 tabs daily for 3 days, 2 tabs daily for 3 days, 1 tab daily for 3 days, 1/2 tab daily for 4 days PREDNISONE 20 MG TAB 953122 PREDNISONE Inactive ZITHROMAX Z-RUBEN 250 MG TABS 2 today, then 1 daily for 4 days 2016 ZITHROMAX Z-RUBEN 250 MG TABS 7397026 AZITHROMYCIN Inactive Vital Signs Date Name Value [...] Panel - Chemistry sodium, serum 133 mmol/L 096-278 8387/08/24 potassium, serum 4.4 mmol/L 3.5-5.2 chloride, serum 95 mmol/L 98-107 carbon dioxide, venous blood 33.0 mmol/L 21.0-32.0 blood glucose 107 mg/dL 65-110 calcium, serum 8.8 mg/dL 8.5-10.1 urea nitrogen, blood 12 mg/dL 7-18 creatinine, serum 0.69 mg/dL 0.55-1.30 Lab Report: CBC, Basic Metabolic Panel - Chemistry sodium, serum 132 mmol/L 433-455 4590/10/12 potassium, serum 4.7 mmol/L 3.5-5.2 chloride, serum [...] CBC - Chemistry sodium, serum 136 mmol/L 061-367 8580/11/01 carbon dioxide, venous blood 32.1 mmol/L 21.0-32.0 [...] Negative Encounters Code Encounter Date Provider Facility CPT-85593 Level 3 Est. Patient 09:05:25 CLINICAL GENETICIST Mary Shah [facility] CPT-81205 Level 3 Est. Patient 20:53:25 CLINICAL GENETICIST Gareth Cancino MD [facility]-71638 Level 3 Est. Patient 10:34:55 CDT Gareth Cancino MD [facility]-20061 Level 4 Est. Patient 09:00:18 CDT Gareth Cancino MD [facility]-95999 Level 3 Est. Patient 15:12:03 CDT Gareth Cancino MD [facility]-75913 Level 3 Est. Patient 23:08:20 CDT Gareth Cancino MD [facility]-82410 Level 4 Est. Patient 20:40:10 CDT Gareth Cancino MD [facility] [place]-49307 Level 4 Est. Patient 19:50:11 CDT Gareth Cancino MD [facility] [place]-67720 Level 3 Est. Patient 11:00:13 CDT Gareth Cancino MD [facility] [place]-16481 Level 4 Est. Patient 11:20:21 CDT Gareth Cancino MD [facility] [place]-34416 Level 4 Est. Patient 09:22:18 CLINICAL GENETICIST Gareth Cancino MD [facility] [place]-36865 Level 3 Est. Patient 09:48:04 CDT Gareth Cancino MD [facility] CPT-38989 Level 3 Est. Patient 10:13:16 CDT Gareth Cancino MD [facility] CPT-45424 Level 2 Est. Patient 18:36:56 CDT Gareth Cancino MD [facility] [place]-53582 Level 4 Est. Patient 13:50:53 CDT Gareth Cancino MD [facility] [place]-16624 Level 3 Est. Patient 14:58:33 CLINICAL GENETICIST Gareth Cancino MD [facility] [place]-36800 Level 4 Est. Patient 09:25:57 CDT Gareth Cancino MD [facility] CPT-16189 Level 3 Est. Patient 20:39:33 CDT Noman Edwards DO [facility] CPT-72470 Level 2 Est. Patient 13:17:39 CDT Gareth Cancino MD [facility] CPT-72879 Level 3 Est. Patient 13:37:20 CDT Gareth Cancino MD [facility] CPT-79411 Level 3 Est. Patient 18:09:08 CDT Gareth Cancino MD [facility] CPT-13071 Level 4 Est. Patient 09:59:07 CDT Gareth Cancino MD [facility] Procedures Code Procedure Name Date Entry Date Standard Description CPT-000 Give Appropriate Flu Vaccine 09:29:52 CLINICAL GENETICIST CPT-000 Give Appropriate Flu Vaccine 09:22:20 CLINICAL GENETICIST CPT-12940 TSH - LAB USE ONLY 08:11:40 CLINICAL GENETICIST CPT-20656 Free T4 - LAB USE ONLY 08:11:40 CLINICAL GENETICIST CPT-60650 Venipuncture Draw Fee 08:11:40 CLINICAL GENETICIST CPT-21014 UA w micro - LAB USE ONLY 14:26:22 CLINICAL GENETICIST CPT-G0438 Initial Annual Wellness Exam 20:53:25 CLINICAL GENETICIST CPT-G0009 Administration of Pneumococcal Vaccine 11:42:53 CLINICAL GENETICIST CPT-18910 Prevnar 13 Intramuscular Suspension 11:42:53 CLINICAL GENETICIST 01/07 CPT-49848 First Vx - Ix admin for Medicare patients 11:39:44 CLINICAL GENETICIST CPT-43341 Fluzone High-Dose Intramuscular Suspension 11:39:44 CLINICAL GENETICIST CPT-74332 Prevnar 13 Intramuscular Suspension 09:29:52 CLINICAL GENETICIST 01/07 CPT-19500 CMP - LAB USE ONLY 16:31:15 CDT CPT-67619 CBC - LAB USE ONLY 16:31:14 CDT CPT-20678 Venipuncture Draw Fee 16:31:14 CDT CPT-24160 BMP - LAB USE ONLY 14:37:27 CDT CPT-90508 CBC - LAB USE ONLY 14:37:27 CDT CPT-18219 Venipuncture Draw Fee 14:37:27 CDT CPT-TCMM Transitional Care Mgmt-Moderate 14:43:38 CDT CPT-38289 Venipuncture Draw Fee 10:33:47 CDT CPT-59930 BMP - LAB USE ONLY 10:33:46 CDT CPT-Cryo Cryotherapy 15:12:03 CDT CPT-66714 LS spine AP and Lat - XRAY USE ONLY 10:31:51 CDT 07/27 CPT-20512 Punch biopsy 1 lsn 20:40:09 CDT CPT-G0008 Administration of Influenza Virus Vaccine 10:04:48 CLINICAL GENETICIST CPT-96908 Fluzone High-Dose Intramuscular Suspension 10:04:48 CLINICAL GENETICIST CPT-38265 Ribs unilat w PA chst min 3V 10:45:40 CDT CPT-LR Lesion Removal 13:14:55 CDT CPT-Cryo Cryotherapy 13:14:55 CDT CPT-11587 Venipuncture Draw Fee 10:25:49 CDT CPT-54777 Administration single or combination vaccine inc oral 13 :22:14 CLINICAL GENETICIST CPT-95781 Influenza High Dose age 65+ 13:22:14 CLINICAL GENETICIST
--- OUTSIDE RECORDS SUMMARY | 2016-12-06 08:13 | XMS REPORT | Clinical Summary ---
Author Author Admin, HILARIA Organization [employer] Address Unknown Phone Unavailable Allergies, Adverse Reactions, [...] cause Skin lesion 709.9 Active Blanca Castillo POST DOCTORAL FELLOW Unspecified disorder of skin and subcutaneous tissue Folliculitis 704.8 Active Gareth Cancino MD Other specified diseases of hair and hair follicles Low back pain, chronic 724.2 Active Gareth Cancino MD Lumbago Frequency of urination 788.41 Active Negin Garcia RF ENGINEER Urinary frequency Actinic keratosis 702.0 Active Gareth Cancino MD Actinic keratosis Pneumonia 486 Active Gareth Cancino MD Pneumonia, organism unspecified Hypokalemia 276.8 Active Gareth Cancino MD Hypopotassemia Spinal stenosis 724.00 Active Gareth Cancino MD Spinal stenosis of unspecified region Bronchitis-Acute ICD-466.0 Inactive Gareth Cancino MD Medication List Medication Instructions Start Date Stop Date Generic Name NDC Status Provider Patient Instruction ZITHROMAX 250 MG TAB 2 po today, then 1 po q days 2-5 AZITHROMYCIN 06292290235 Active Tangela Forte Active IPRATROPIUM-ALBUTEROL 0.5-2.5 (3) MG/3ML INH SOLN nebulize 1 vial every 6hrs prn shortness of breath IPRATROPIUM-ALBUTEROL 61418507838 Active Gareth Cancino MD Active FENTANYL 25 MCG/HR PT72 Apply to clean, dry skin and change every 72 hours FENTANYL 21747976608 Active Gareth Cancino MD Active AZITHROMYCIN 250 MG ORAL TABS 1 tab daily AZITHROMYCIN 70495781230 Active Gareth Cancino MD Active WELLBUTRIN SR 150 MG ORAL [id number] take 1 tab po BID BUPROPION HCL 30958497229 No Longer Active Gareth Cancino MD Active ZOFRAN 4 MG ORAL TABS 1 by mouth every 6 hours prn nausea ONDANSETRON HCL 88760150205 Active Tangela Forte Active TRAMADOL HCL 50 MG TABS 1 po tid PRN TRAMADOL HCL 26294873465 Active Gareth Cancino MD Active HYDROCODONE-ACETAMINOPHEN 5-325 MG TABS 1 tab by mouth every 6 hours as needed for bck pain HYDROCODONE-ACETAMINOPHEN 11753310554 Active Gareth Cancino MD Active ALPRAZOLAM 0.25 MG TAB 1/2 to 1 tablet by mouth qhs prn ALPRAZOLAM 91490398692 No Longer Active Gareth Cancino MD Active CLOBETASOL PROPIONATE 0.05 % CREA apply to hand rash bid CLOBETASOL PROPIONATE 80613876385 No Longer Active Gareth Cancino MD Active BACTROBAN 2 % CREAM Apply to affected area BID MUPIROCIN CALCIUM 40024141754 No Longer Active Gareth Cancino MD Active LISINOPRIL 20 MG TABS 1 tablet by mouth daily for high blood pressure 10/14 LISINOPRIL 70834930709 Active Gareth Cancino MD Active BACTRIM DS 800-160 MG TAB 1 tab by mouth twice daily TRIMETHOPRIM-SULFAMETHOXAZOLE 35623243212 No Longer Active Gareth Cancino MD Active METOPROLOL SUCCINATE ER 100 MG [id number] 1 pill by mouth daily, for blood pressure METOPROLOL SUCCINATE 07869390124 Active Gareth Cancino MD Active KEFLEX 500 MG CAP 1 po TID x 10 days CEPHALEXIN 45314178536 No Longer Active Blanca Castillo APRN Active METOPROLOL SUCCINATE 50 MG TB24 1 tablet by mouth daily METOPROLOL SUCCINATE 35257637715 No Longer Active Gareth Cancino MD Active OMEPRAZOLE 20 MG TBEC Take one by mouth daily OMEPRAZOLE 01680840963 No Longer Active Gareth Cancino MD Active OMEPRAZOLE 40 MG CPDR 1 tab po qday for acid reflux. OMEPRAZOLE 07768265436 Active Mary Shah APRN Active LEVAQUIN 500 MG TAB 1 tablet by mouth daily LEVOFLOXACIN 82734557139 No Longer Active Gareth Cancino MD Active ALEVE 220 MG TAB 2 tab po qd NAPROXEN SODIUM 97846135712 Active Gareth Cancino MD Active ASPIRIN 81 MG CHEW TAB 1 tablet by mouth daily ASPIRIN 18240253921 Active Gareth Cancino MD Active VENTOLIN HFA 108 (90 BASE) MCG/ACT AERS 1-2 puffs four times a day PRN shortness of breath ALBUTEROL SULFATE 63883871160 Active Mary Shah POST DOCTORAL FELLOW Active CENTRUM SILVER TABS 1 TAB PO DAILY MULTIPLE VITAMINS-MINERALS 53183875072 Active Gareth Cancino MD Active VITAMIN B12 100 MCG TABS 1 TAB PO DAILY CYANOCOBALAMIN 57694188051 Active Gareth Cancino MD Active CIPRO 500 MG TABS 1 TAB PO BID CIPROFLOXACIN HCL 64937466935 No Longer Active Gareth Cancino MD Active BACTRIM DS 800-160 MG TAB 1 tab by mouth twice daily TRIMETHOPRIM-SULFAMETHOXAZOLE 40685142482 No Longer Active Gareth Cancino MD Active PREDNISONE 20 MG TAB 1 tab po BID for 3 days, then 1 tab po qday for 3 days PREDNISONE 88079703385 No Longer Active Gareth Cancino MD Active FOLIC ACID 800 MCG TABS Take one by mouth daily FOLIC ACID 23312963734 No Longer Active Gareth Cancino MD Active VITAMIN B-6 250 MG TABS Take one by mouth daily PYRIDOXINE HCL 71685318410 No Longer Active Gareth Cancino MD Active B-12 1000 MCG CAPS Take one by mouth daily CYANOCOBALAMIN 41282848395 No Longer Active Gareth Cancino MD Active DOXYCYCLINE HYCLATE 100 MG CAP 1 cap by mouth twice daily DOXYCYCLINE HYCLATE 80109373803 No Longer Active Gareth Cancino MD Active PREDNISONE 20 MG TAB 1 po bid 3 days, then 1 po q day 3 days 2011 PREDNISONE 31175972337 No Longer Active Gareth Cancino MD Active CHANTIX STARTING MONTH RUBEN 0.5 MG X 11 & 1 MG X 42 TABS 0.5mg daily for 3 days , then 0.5mg BID for 4 days, then 1mg BID VARENICLINE TARTRATE 59837469608 No Longer Active Gareth Cancino MD Active SIMVASTATIN 40 MG TABS Take one by mouth daily SIMVASTATIN 65071236363 Active Gareth Cancino MD Active TRIAMTERENE-HCTZ 37.5-25 MG CAPS Take one by mouth daily TRIAMTERENE- HCTZ 33383047606 Active Gareth Cancino MD Active CHANTIX STARTING [...] 3 days 2011 PREDNISONE 20 MG TAB 548933 PREDNISONE Inactive DOXYCYCLINE HYCLATE 100 MG CAP 1 cap by mouth twice daily DOXYCYCLINE HYCLATE 100 MG CAP 1097077 DOXYCYCLINE HYCLATE Inactive B-12 1000 MCG CAPS Take one by mouth daily B-12 1000 MCG CAPS CYANOCOBALAMIN Inactive VITAMIN B-6 250 MG TABS Take one by mouth daily VITAMIN B-6 250 MG TABS PYRIDOXINE HCL Inactive FOLIC ACID 800 MCG TABS Take one by mouth daily FOLIC ACID 800 MCG TABS 122014 FOLIC ACID Inactive CIPRO 500 MG TABS 1 TAB PO BID CIPRO 500 MG TABS 891032 CIPROFLOXACIN HCL Inactive OMEPRAZOLE 20 MG TBEC Take one by mouth daily OMEPRAZOLE 20 MG TBEC 578315 OMEPRAZOLE Inactive METOPROLOL SUCCINATE 50 MG TB24 1 tablet by mouth daily METOPROLOL SUCCINATE 50 MG TB24 METOPROLOL SUCCINATE Inactive BACTROBAN 2 % CREAM Apply to affected area BID BACTROBAN 2 % CREAM 434241 MUPIROCIN CALCIUM Inactive CLOBETASOL PROPIONATE 0.05 % CREA apply to hand rash bid CLOBETASOL PROPIONATE 0.05 % CREA 050609 CLOBETASOL PROPIONATE Inactive ALPRAZOLAM 0.25 MG TAB 1/2 to 1 tablet by mouth qhs prn ALPRAZOLAM 0.25 MG TAB 026864 ALPRAZOLAM Inactive WELLBUTRIN SR 150 MG ORAL [id number] take 1 tab po BID WELLBUTRIN SR 150 MG ORAL [id number] BUPROPION HCL Inactive PREDNISONE 20 MG TAB 1 tab po BID for 3 days, then 1 tab po qday for 3 days PREDNISONE 20 MG TAB 190937 PREDNISONE Inactive BACTRIM DS 800-160 MG TAB 1 tab by mouth twice daily BACTRIM DS 800-160 MG TAB 880449 TRIMETHOPRIM-SULFAMETHOXAZOLE Inactive LEVAQUIN 500 MG TAB 1 tablet by mouth daily LEVAQUIN 500 MG TAB 571482 LEVOFLOXACIN Inactive KEFLEX 500 MG CAP 1 po TID x 10 days KEFLEX 500 MG CAP 003048 CEPHALEXIN Inactive BACTRIM DS 800-160 MG TAB 1 tab by mouth twice daily BACTRIM DS 800-160 MG TAB 800835 TRIMETHOPRIM-SULFAMETHOXAZOLE Inactive Vital Signs Date Name Value Unit Range Description blood pressure, diastolic - 8462-4 69 mm[Hg] [...] Panel - Chemistry sodium, serum 133 mmol/L 088-977 2154/08/24 potassium, serum 4.4 mmol/L 3.5-5.2 chloride, serum 95 mmol/L 98-107 carbon dioxide, venous blood 33.0 mmol/L 21.0-32.0 blood glucose 107 mg/dL 65-110 calcium, serum 8.8 mg/dL 8.5-10.1 urea nitrogen, blood 12 mg/dL 7-18 creatinine, serum 0.69 mg/dL 0.55-1.30 Lab Report: CBC, Basic Metabolic Panel - Chemistry sodium, serum 132 mmol/L 647-670 5108/10/12 potassium, serum 4.7 mmol/L 3.5-5.2 chloride, serum [...] ... - Chemistry cholesterol, serum 195 mg/dL 778-065 1303/12/02 triglyceride, serum, fasting 74 mg/dL 30-200 HDL cholesterol, serum 52 mg/dL 32-96 LDL cholesterol, serum 128 mg/dL 0-130 sodium, serum 134 mmol/L 136-536 2017/12/02 carbon dioxide, venous blood 30.3 mmol/L 21.0-32.0 [...] 5.0-8.5 Encounters Code Encounter Date Provider Facility CPT-34112 Level 4 Est. Patient 09:00:18 CDT Gareth Cancino MD [facility]-02092 Level 3 Est. Patient 15:12:03 CDT Gareth Cancino MD [facility]-61911 Level 3 Est. Patient 23:08:20 CDT Gareth Cancino MD [facility]-97994 Level 4 Est. Patient 20:40:10 CDT Gareth Cancino MD [facility] CPT-91446 Level 4 Est. Patient 19:50:11 CDT Gareth Cancino MD [facility] CPT-97858 Level 3 Est. Patient 11:00:13 CDT Gareth Cancino MD [facility] CPT-38661 Level 4 Est. Patient 11:20:21 CDT Gareth Cancino MD [facility]-93275 Level 4 Est. Patient 09:22:18 LIBRARY SPECIALIST Gareth Cancino MD [facility] CPT-97520 Level 3 Est. Patient 09:48:04 CDT Gareth Cancino MD [facility]-64125 Level 3 Est. Patient 10:13:16 CDT Gareth Cancino MD [facility] CPT-65875 Level 2 Est. Patient 18:36:56 CDT Gareth Cancino MD [facility] CPT-17757 Level 4 Est. Patient 13:50:53 CDT Gareth Cancino MD [facility] CPT-56600 Level 3 Est. Patient 14:58:33 LIBRARY SPECIALIST Gareth Cancino MD [facility] CPT-58337 Level 4 Est. Patient 09:25:57 CDT Gareth Cancino MD [facility] CPT-92191 Level 3 Est. Patient 20:39:33 CDT Noman Edwards DO [facility] CPT-49991 Level 2 Est. Patient 13:17:39 CDT Gareth Cancino MD [facility] CPT-38852 Level 3 Est. Patient 13:37:20 CDT Gareth Cancino MD [facility] CPT-29831 Level 3 Est. Patient 18:09:08 CDT Gareth Cancino MD [facility] CPT-29973 Level 4 Est. Patient 09:59:07 CDT Gareth Cancino MD [facility] Procedures Code Procedure Name Date Entry Date Standard Description CPT-51288 BMP - LAB USE ONLY 14:37:27 CDT CPT-01951 CBC - LAB USE ONLY 14:37:27 CDT CPT-02995 Venipuncture Draw Fee 14:37:27 CDT CPT-TCMM Transitional Care Mgmt-Moderate 14:43:38 CDT CPT-81783 Venipuncture Draw Fee 10:33:47 CDT CPT-09612 BMP - LAB USE ONLY 10:33:46 CDT CPT-Cryo Cryotherapy 15:12:03 CDT CPT-56284 LS spine AP and Lat - XRAY USE ONLY 10:31:51 CDT 07/27 CPT-03414 Punch biopsy 1 lsn 20:40:09 CDT CPT-G0008 Administration of Influenza Virus Vaccine 10:04:48 LIBRARY SPECIALIST CPT-46587 Fluzone High-Dose Intramuscular Suspension 10:04:48 LIBRARY SPECIALIST CPT-64308 Ribs unilat w PA chst min 3V 10:45:40 CDT CPT-LR Lesion Removal 13:14:55 CDT CPT-Cryo Cryotherapy 13:14:55 CDT CPT-32113 Venipuncture Draw Fee 10:25:49 CDT CPT-97241 Administration single or combination vaccine inc oral 13 :22:14 LIBRARY SPECIALIST CPT-66336 Influenza High Dose age 65+ 13:22:14 LIBRARY SPECIALIST
--- OUTSIDE RECORDS SUMMARY | 2016-12-06 08:14 | XMS REPORT | Clinical Summary ---
Author Author Admin, Leon Organization [employer] Address Unknown Phone Unavailable Allergies, Adverse Reactions, [...] 1 tablet by mouth qhs prn ALPRAZOLAM 75848041420 No Longer Active Gareth Cancino MD Active CLOBETASOL PROPIONATE 0.05 % CREA apply to hand rash bid CLOBETASOL PROPIONATE 96622023120 No Longer Active Gareth Cancino MD Active BACTROBAN 2 % CREAM Apply to affected area BID MUPIROCIN CALCIUM 96813637353 No Longer Active Gareth Cancino MD Active LISINOPRIL 20 MG TABS 1 tablet by mouth daily for high blood pressure 10/14 LISINOPRIL 56133072792 Active Gareth Cancino MD Active BACTRIM DS 800-160 MG TAB 1 tab by mouth twice daily TRIMETHOPRIM-SULFAMETHOXAZOLE 92476143858 No Longer Active Gareth Cancino MD Active METOPROLOL SUCCINATE ER 100 MG [id number] 1 pill by mouth daily, for blood pressure METOPROLOL SUCCINATE 81808933765 Active Gareth Cancino MD Active KEFLEX 500 MG CAP 1 po TID x 10 days CEPHALEXIN 24143176015 No Longer Active Blanca Castillo APRN Active WELLBUTRIN SR 150 MG ORAL [id number] take 1 tab po BID BUPROPION HCL 47575423962 Active Gareth Cancino MD Active METOPROLOL SUCCINATE 50 MG TB24 1 tablet by mouth daily METOPROLOL SUCCINATE 83518452774 No Longer Active Gareth Cancino MD Active OMEPRAZOLE 20 MG TBEC Take one by mouth daily OMEPRAZOLE 33155941826 No Longer Active Gareth Cancino MD Active OMEPRAZOLE 40 MG CPDR 1 tab po qday for acid reflux. OMEPRAZOLE 10860894890 Active Mary Shah APRN Active LEVAQUIN 500 MG TAB 1 tablet by mouth daily LEVOFLOXACIN 96579493484 No Longer Active Gareth Cancino MD Active ALEVE 220 MG TAB 2 tab po qd NAPROXEN SODIUM 50548025259 Active Gareth Cancino MD Active ASPIRIN 81 MG CHEW TAB 1 tablet by mouth daily ASPIRIN 07887365812 Active Gareth Cancino MD Active VENTOLIN HFA 108 (90 BASE) MCG/ACT AERS 1-2 puffs four times a day PRN shortness of breath ALBUTEROL SULFATE 18002931843 Active Mary Shah STOCKROOM CLERK Active CENTRUM SILVER TABS 1 TAB PO DAILY MULTIPLE VITAMINS-MINERALS 92379496801 Active Gareth Cancino MD Active VITAMIN B12 100 MCG TABS 1 TAB PO DAILY CYANOCOBALAMIN 95047301580 Active Gareth Cancino MD Active CIPRO 500 MG TABS 1 TAB PO BID CIPROFLOXACIN HCL 44060186603 No Longer Active Gareth Cancino MD Active BACTRIM DS 800-160 MG TAB 1 tab by mouth twice daily TRIMETHOPRIM-SULFAMETHOXAZOLE 47729185258 No Longer Active Gareth Cancino MD Active PREDNISONE 20 MG TAB 1 tab po BID for 3 days, then 1 tab po qday for 3 days PREDNISONE 21305851434 No Longer Active Gareth Cancino MD Active FOLIC ACID 800 MCG TABS Take one by mouth daily FOLIC ACID 55508593919 No Longer Active Gareth Cancino MD Active VITAMIN B-6 250 MG TABS Take one by mouth daily PYRIDOXINE HCL 51670578402 No Longer Active Gareth Cancino MD Active B-12 1000 MCG CAPS Take one by mouth daily CYANOCOBALAMIN 25402809981 No Longer Active Gareth Cancino MD Active DOXYCYCLINE HYCLATE 100 MG CAP 1 cap by mouth twice daily DOXYCYCLINE HYCLATE 74323681619 No Longer Active Gareth Cancino MD Active PREDNISONE 20 MG TAB 1 po bid 3 days, then 1 po q day 3 days 2011 PREDNISONE 13345501906 No Longer Active Gareth Cancino MD Active CHANTIX STARTING MONTH RUBEN 0.5 MG X 11 & 1 MG X 42 TABS 0.5mg daily for 3 days , then 0.5mg BID for 4 days, then 1mg BID VARENICLINE TARTRATE 37059941508 No Longer Active Gareth Cancino MD Active SIMVASTATIN 40 MG TABS Take one by mouth daily SIMVASTATIN 47604869634 Active Gareth Cancino MD Active TRIAMTERENE-HCTZ 37.5-25 MG CAPS Take one by mouth daily TRIAMTERENE- HCTZ 91101905306 Active Gareth Cancino MD Active CHANTIX STARTING [...] 3 days 2011 PREDNISONE 20 MG TAB 962878 PREDNISONE Inactive DOXYCYCLINE HYCLATE 100 MG CAP 1 cap by mouth twice daily DOXYCYCLINE HYCLATE 100 MG CAP 5260726 DOXYCYCLINE HYCLATE Inactive B-12 1000 MCG CAPS Take one by mouth daily B-12 1000 MCG CAPS CYANOCOBALAMIN Inactive VITAMIN B-6 250 MG TABS Take one by mouth daily VITAMIN B-6 250 MG TABS PYRIDOXINE HCL Inactive FOLIC ACID 800 MCG TABS Take one by mouth daily FOLIC ACID 800 MCG TABS 690300 FOLIC ACID Inactive CIPRO 500 MG TABS 1 TAB PO BID CIPRO 500 MG TABS 002771 CIPROFLOXACIN HCL Inactive OMEPRAZOLE 20 MG TBEC Take one by mouth daily OMEPRAZOLE 20 MG TBEC 111506 OMEPRAZOLE Inactive METOPROLOL SUCCINATE 50 MG TB24 1 tablet by mouth daily METOPROLOL SUCCINATE 50 MG TB24 METOPROLOL SUCCINATE Inactive BACTROBAN 2 % CREAM Apply to affected area BID BACTROBAN 2 % CREAM 913848 MUPIROCIN CALCIUM Inactive CLOBETASOL PROPIONATE 0.05 % CREA apply to hand rash bid CLOBETASOL PROPIONATE 0.05 % CREA 489462 CLOBETASOL PROPIONATE Inactive ALPRAZOLAM 0.25 MG TAB 1/2 to 1 tablet by mouth qhs prn ALPRAZOLAM 0.25 MG TAB 309897 ALPRAZOLAM Inactive PREDNISONE 20 MG TAB 1 tab po BID for 3 days, then 1 tab po qday for 3 days PREDNISONE 20 MG TAB 254471 PREDNISONE Inactive BACTRIM DS 800-160 MG TAB 1 tab by mouth twice daily BACTRIM DS 800-160 MG TAB 708129 TRIMETHOPRIM-SULFAMETHOXAZOLE Inactive LEVAQUIN 500 MG TAB 1 tablet by mouth daily LEVAQUIN 500 MG TAB 162238 LEVOFLOXACIN Inactive KEFLEX 500 MG CAP 1 po TID x 10 days KEFLEX 500 MG CAP 918574 CEPHALEXIN Inactive BACTRIM DS 800-160 MG TAB 1 tab by mouth twice daily BACTRIM DS 800-160 MG TAB 335475 TRIMETHOPRIM-SULFAMETHOXAZOLE Inactive Vital Signs Date Name Value [...] ... - Chemistry cholesterol, serum 195 mg/dL 892-286 1998/12/02 triglyceride, serum, fasting 74 mg/dL 30-200 HDL cholesterol, serum 52 mg/dL 32-96 LDL cholesterol, serum 128 mg/dL 0-130 sodium, serum 134 mmol/L 589-739 1922/12/02 carbon dioxide, venous blood 30.3 mmol/L 21.0-32.0 [...] 0-19 Encounters Code Encounter Date Provider Facility CPT-60308 Level 3 Est. Patient 23:08:20 CDT Gareth Cancino MD [facility] CPT-38248 Level 4 Est. Patient 20:40:10 CDT Gareth Cancino MD [facility] CPT-72846 Level 4 Est. Patient 19:50:11 CDT Gareth Cancino MD [facility] CPT-89345 Level 3 Est. Patient 11:00:13 CDT Gareth Cancino MD [facility] CPT-52093 Level 4 Est. Patient 11:20:21 CDT Gareth Cancino MD [facility] CPT-27927 Level 4 Est. 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 Patient 09:48:04 CDT Gareth Cancino MD [facility] CPT-42941 Level 3 Est. Patient 10:13:16 CDT Gareth Cancino MD [facility] CPT-79297 Level 2 Est. Patient 18:36:56 CDT Gareth Cancino MD [facility] CPT-55658 Level 4 Est. Patient 13:50:53 CDT Gareth Cancino MD [facility] CPT-81520 Level 3 Est. Patient 14:58:33 COILED TUBING SUPERVISOR Gareth Cancino MD [facility] CPT-73227 Level 4 Est. Patient 09:25:57 CDT Gareth Cancino MD [facility] CPT-47398 Level 3 Est. Patient 20:39:33 CDT Noman Edwards DO [facility] CPT-88510 Level 2 Est. Patient 13:17:39 CDT Gareth Cancino MD [facility] CPT-02927 Level 3 Est. Patient 13:37:20 CDT Gareth Cancino MD [facility] CPT-66958 Level 3 Est. Patient 18:09:08 CDT Gareth Cancino MD [facility] CPT-82947 Level 4 Est. Patient 09:59:07 CDT Gareth Cancino MD [facility] Procedures Code Procedure Name Date Entry Date Standard Description CPT-02458 LS spine AP and Lat - XRAY USE ONLY 10:31:51 CDT 07/27 CPT-98020 Punch biopsy 1 lsn 20:40:09 CDT CPT-G0008 Administration of Influenza Virus Vaccine 10:04:48 COILED TUBING SUPERVISOR CPT-35897 Fluzone High-Dose Intramuscular Suspension 10:04:48 COILED TUBING SUPERVISOR CPT-93980 Ribs unilat w PA chst min 3V 10:45:40 CDT CPT-LR Lesion Removal 13:14:55 CDT CPT-Cryo Cryotherapy 13:14:55 CDT CPT-62028 Venipuncture Draw Fee 10:25:49 CDT CPT-48039 Administration single or combination vaccine inc oral 13 :22:14 COILED TUBING SUPERVISOR CPT-25305 Influenza High Dose age 65+ 13:22:14 COILED TUBING SUPERVISOR
--- OUTSIDE RECORDS SUMMARY | 2016-12-06 08:15 | XMS REPORT | Clinical Summary ---
Author Author Admin, Leon Organization [employer] Address Unknown Phone Unavailable Allergies, Adverse Reactions, [...] cause Skin lesion 709.9 Active Blanca Castillo THERMOFORMING OPERATOR Unspecified disorder of skin and subcutaneous tissue Folliculitis 704.8 Active Gareth Cancino MD Other specified diseases of hair and hair follicles Low back pain, chronic 724.2 Active Gareth Cancino MD Lumbago Frequency of urination 788.41 Active Negin Garcia POLYMERIZATION KETTLE OPERATOR Urinary frequency Actinic keratosis 702.0 Active Gareth Cancino MD Actinic keratosis Bronchitis-Acute ICD-466.0 Inactive Gareth Cancino MD Medication List Medication Instructions Start Date Stop Date Generic Name NDC Status Provider Patient Instruction ALPRAZOLAM 0.25 MG TAB 1/2 to 1 tablet by mouth qhs prn ALPRAZOLAM 21626710893 No Longer Active Gareth Cancino MD Active CLOBETASOL PROPIONATE 0.05 % CREA apply to hand rash bid CLOBETASOL PROPIONATE 50744392468 No Longer Active Gareth Cancino MD Active BACTROBAN 2 % CREAM Apply to affected area BID MUPIROCIN CALCIUM 98898519009 No Longer Active Gareth Cancino MD Active LISINOPRIL 20 MG TABS 1 tablet by mouth daily for high blood pressure 10/14 LISINOPRIL 89027375733 Active Gareth Cancino MD Active BACTRIM DS 800-160 MG TAB 1 tab by mouth twice daily TRIMETHOPRIM-SULFAMETHOXAZOLE 09216428056 No Longer Active Gareth Cancino MD Active METOPROLOL SUCCINATE ER 100 MG [id number] 1 pill by mouth daily, for blood pressure METOPROLOL SUCCINATE 53702309043 Active Gareth Cancino MD Active KEFLEX 500 MG CAP 1 po TID x 10 days CEPHALEXIN 10431426763 No Longer Active Blanca Castillo APRN Active WELLBUTRIN SR 150 MG ORAL [id number] take 1 tab po BID BUPROPION HCL 60836098424 Active Gareth Cancino MD Active METOPROLOL SUCCINATE 50 MG TB24 1 tablet by mouth daily METOPROLOL SUCCINATE 40889750459 No Longer Active Gareth Cancino MD Active OMEPRAZOLE 20 MG TBEC Take one by mouth daily OMEPRAZOLE 00011471920 No Longer Active Gareth Cancino MD Active OMEPRAZOLE 40 MG CPDR 1 tab po qday for acid reflux. OMEPRAZOLE 68888706639 Active Mary Shah APRN Active LEVAQUIN 500 MG TAB 1 tablet by mouth daily LEVOFLOXACIN 83407247944 No Longer Active Gareth Cancino MD Active ALEVE 220 MG TAB 2 tab po qd NAPROXEN SODIUM 13845593502 Active Gareth Cancino MD Active ASPIRIN 81 MG CHEW TAB 1 tablet by mouth daily ASPIRIN 50764650134 Active Gareth Cancino MD Active VENTOLIN HFA 108 (90 BASE) MCG/ACT AERS 1-2 puffs four times a day PRN shortness of breath ALBUTEROL SULFATE 86915643027 Active Mary Shah APRN Active CENTRUM SILVER TABS 1 TAB PO DAILY MULTIPLE VITAMINS-MINERALS 06140664218 Active Gareth Cancino MD Active VITAMIN B12 100 MCG TABS 1 TAB PO DAILY CYANOCOBALAMIN 40787765566 Active Gareth Cancino MD Active CIPRO 500 MG TABS 1 TAB PO BID CIPROFLOXACIN HCL 15839703966 No Longer Active Gareth Cancino MD Active BACTRIM DS 800-160 MG TAB 1 tab by mouth twice daily TRIMETHOPRIM-SULFAMETHOXAZOLE 33179744705 No Longer Active Gareth Cancino MD Active PREDNISONE 20 MG TAB 1 tab po BID for 3 days, then 1 tab po qday for 3 days PREDNISONE 82944077439 No Longer Active Gareth Cancino MD Active FOLIC ACID 800 MCG TABS Take one by mouth daily FOLIC ACID 09532555027 No Longer Active Gareth Cancino MD Active VITAMIN B-6 250 MG TABS Take one by mouth daily PYRIDOXINE HCL 57934914689 No Longer Active Gareth Cancino MD Active B-12 1000 MCG CAPS Take one by mouth daily CYANOCOBALAMIN 99411537258 No Longer Active Gareth Cancino MD Active DOXYCYCLINE HYCLATE 100 MG CAP 1 cap by mouth twice daily DOXYCYCLINE HYCLATE 13433685668 No Longer Active Gareth Cancino MD Active PREDNISONE 20 MG TAB 1 po bid 3 days, then 1 po q day 3 days 2011 PREDNISONE 80540457626 No Longer Active Gareth Cancino MD Active CHANTIX STARTING MONTH RUBEN 0.5 MG X 11 & 1 MG X 42 TABS 0.5mg daily for 3 days , then 0.5mg BID for 4 days, then 1mg BID VARENICLINE TARTRATE 25720648530 No Longer Active Gareth Cancino MD Active SIMVASTATIN 40 MG TABS Take one by mouth daily SIMVASTATIN 65737951077 Active Gareth Cancino MD Active TRIAMTERENE-HCTZ 37.5-25 MG CAPS Take one by mouth daily TRIAMTERENE- HCTZ 01266790942 Active Gareth Cancino MD Active CHANTIX STARTING [...] 3 days 2011 PREDNISONE 20 MG TAB 646326 PREDNISONE Inactive DOXYCYCLINE HYCLATE 100 MG CAP 1 cap by mouth twice daily DOXYCYCLINE HYCLATE 100 MG CAP 3799581 DOXYCYCLINE HYCLATE Inactive B-12 1000 MCG CAPS Take one by mouth daily B-12 1000 MCG CAPS CYANOCOBALAMIN Inactive VITAMIN B-6 250 MG TABS Take one by mouth daily VITAMIN B-6 250 MG TABS PYRIDOXINE HCL Inactive FOLIC ACID 800 MCG TABS Take one by mouth daily FOLIC ACID 800 MCG TABS 871553 FOLIC ACID Inactive CIPRO 500 MG TABS 1 TAB PO BID CIPRO 500 MG TABS 885260 CIPROFLOXACIN HCL Inactive OMEPRAZOLE 20 MG TBEC Take one by mouth daily OMEPRAZOLE 20 MG TBEC 694423 OMEPRAZOLE Inactive METOPROLOL SUCCINATE 50 MG TB24 1 tablet by mouth daily 2015/06/ 30 METOPROLOL SUCCINATE 50 MG TB24 METOPROLOL SUCCINATE Inactive BACTROBAN 2 % CREAM Apply to affected area BID BACTROBAN 2 % CREAM 728294 MUPIROCIN CALCIUM Inactive CLOBETASOL PROPIONATE 0.05 % CREA apply to hand rash bid CLOBETASOL PROPIONATE 0.05 % CREA 178953 CLOBETASOL PROPIONATE Inactive ALPRAZOLAM 0.25 MG TAB 1/2 to 1 tablet by mouth qhs prn ALPRAZOLAM 0.25 MG TAB 298999 ALPRAZOLAM Inactive PREDNISONE 20 MG TAB 1 tab po BID for 3 days, then 1 tab po qday for 3 days PREDNISONE 20 MG TAB 844279 PREDNISONE Inactive BACTRIM DS 800-160 MG TAB 1 tab by mouth twice daily BACTRIM DS 800-160 MG TAB 597230 TRIMETHOPRIM-SULFAMETHOXAZOLE Inactive LEVAQUIN 500 MG TAB 1 tablet by mouth daily LEVAQUIN 500 MG TAB 256726 LEVOFLOXACIN Inactive KEFLEX 500 MG CAP 1 po TID x 10 days KEFLEX 500 MG CAP 158052 CEPHALEXIN Inactive BACTRIM DS 800-160 MG TAB 1 tab by mouth twice daily BACTRIM DS 800-160 MG TAB 623779 TRIMETHOPRIM-SULFAMETHOXAZOLE Inactive Vital Signs Date Name Value [...] ... - Chemistry cholesterol, serum 195 mg/dL 456-741 2086/12/02 triglyceride, serum, fasting 74 mg/dL 30-200 HDL cholesterol, serum 52 mg/dL 32-96 LDL cholesterol, serum 128 mg/dL 0-130 sodium, serum 134 mmol/L 770-930 7643/12/02 carbon dioxide, venous blood 30.3 mmol/L 21.0-32.0 [...] 5.0-8.5 Encounters Code Encounter Date Provider Facility CPT-77831 Level 3 Est. Patient 15:12:03 CDT Gareth Cancino MD [facility] CPT-22828 Level 3 Est. Patient 23:08:20 CDT Gareth Cancino MD [facility]-91669 Level 4 Est. Patient 20:40:10 CDT Gareth Cancino MD [facility] CPT-11445 Level 4 Est. Patient 19:50:11 CDT Gareth Cancino MD [facility] CPT-50833 Level 3 Est. Patient 11:00:13 CDT Gareth Cancino MD [facility] CPT-93975 Level 4 Est. Patient 11:20:21 CDT Gareth Cancino MD [facility] CPT-52098 Level 4 Est. 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 Patient 09:48:04 CDT Gareth Cancino MD [facility] CPT-28085 Level 3 Est. Patient 10:13:16 CDT Gareth Cancino MD [facility] CPT-80667 Level 2 Est. Patient 18:36:56 CDT Gareth Cancino MD [facility] CPT-52837 Level 4 Est. Patient 13:50:53 CDT Gareth Cancino MD [facility] CPT-42436 Level 3 Est. Patient 14:58:33 COMMUNITY LIVING SPECIALIST Gareth Cancino MD [facility] CPT-21081 Level 4 Est. Patient 09:25:57 CDT Gareth Cancino MD [facility] CPT-72723 Level 3 Est. Patient 20:39:33 CDT Noman Edwards DO [facility] CPT-94472 Level 2 Est. Patient 13:17:39 CDT Gareth Cancino MD [facility] CPT-50362 Level 3 Est. Patient 13:37:20 CDT Gareth Cancino MD [facility] CPT-00011 Level 3 Est. Patient 18:09:08 CDT Gareth Cancino MD [facility] CPT-66456 Level 4 Est. Patient 09:59:07 CDT Gareth Cancino MD [facility] Procedures Code Procedure Name Date Entry Date Standard Description CPT-Cryo Cryotherapy 15:12:03 CDT CPT-33837 LS spine AP and Lat - XRAY USE ONLY 10:31:51 CDT 07/27 CPT-28100 Punch biopsy 1 lsn 20:40:09 CDT CPT-G0008 Administration of Influenza Virus Vaccine 10:04:48 COMMUNITY LIVING SPECIALIST CPT-13462 Fluzone High-Dose Intramuscular Suspension 10:04:48 COMMUNITY LIVING SPECIALIST CPT-98074 Ribs unilat w PA chst min 3V 10:45:40 CDT CPT-LR Lesion Removal 13:14:55 CDT CPT-Cryo Cryotherapy 13:14:55 CDT CPT-37232 Venipuncture Draw Fee 10:25:49 CDT CPT-62885 Administration single or combination vaccine inc oral 13 :22:14 COMMUNITY LIVING SPECIALIST CPT-15248 Influenza High Dose age 65+ 13:22:14 COMMUNITY LIVING SPECIALIST
--- OUTSIDE RECORDS SUMMARY | 2016-12-06 08:16 | XMS REPORT | Clinical Summary ---
Author Author Admin, HILARIA Organization [employer] Address Unknown Phone Unavailable Allergies, Adverse Reactions, [...] Gareth Cancino MD SEBACEOUS CYST ICD-706.2 Inactive aGreth Cancino MD ENCOUNTER FOR REMOVAL OF SUTURES [...] 1 GM ORAL PACK as directed AZITHROMYCIN 96762097079 Active Tangela Forte Active PIROXICAM 20 MG ORAL CAPS 1 po daily as needed for arthritis/pain PIROXICAM 33605869008 Active Gareth Cancino MD Active ZITHROMAX Z-RUBEN 250 MG TABS 2 today, then 1 daily for 4 days 2016 AZITHROMYCIN 00343177582 No Longer Active Tangelashar Forte Active FENTANYL 25 MCG/HR TRANS PT72 1 patch every 72 hours FENTANYL 33614749134 Active Mary Shah APRN Active PREDNISONE 20 MG TAB take 3 tabs daily for 3 days, 2 tabs daily for 3 days, 1 tab daily for 3 days, 1/2 tab daily for 4 days PREDNISONE 48863424631 No Longer Active Mary Shah APRN Active LEVAQUIN 500 MG TAB 1 tablet by mouth daily for 7 days LEVOFLOXACIN 85861274708 Active Mary Shah APRN Active AZITHROMYCIN 250 MG TABS 2 po qd x 1 day, then 1 po qd x 4 days AZITHROMYCIN 90263274285 No Longer Active Danuta Modi Active AZITHROMYCIN 250 MG TABS 2 po qd x 1 day, then 1 po qd x 4 days AZITHROMYCIN 42216652710 No Longer Active Tangela Forte Active HYDROCODONE-ACETAMINOPHEN 5-325 MG TABS 1 tab by mouth every 6 hours as needed for bck pain HYDROCODONE-ACETAMINOPHEN 39391520740 No Longer Active Gareth Cancino MD Active ALPRAZOLAM 0.25 MG TAB 1 tablet by mouth q hs prn ALPRAZOLAM 56138495046 Active Gareth Cancino MD Active AZITHROMYCIN 250 MG ORAL TABS 1 tab daily AZITHROMYCIN 04376973804 No Longer Active Gareth Cancino MD Active ZITHROMAX 250 MG TAB 2 po today, then 1 po q days 2-5 AZITHROMYCIN 56657340932 No Longer Active Tangela Forte Active IPRATROPIUM-ALBUTEROL 0.5-2.5 (3) MG/3ML INH SOLN nebulize 1 vial every 6hrs prn shortness of breath IPRATROPIUM-ALBUTEROL 62171971350 Active Gareth Cancino MD Active FENTANYL 25 MCG/HR PT72 Apply to clean, dry skin and change every 72 hours FENTANYL 03282978767 No Longer Active Gareth Cancino MD Active WELLBUTRIN SR 150 MG ORAL [id number] take 1 tab po BID BUPROPION HCL 08721017477 No Longer Active Gareth Cancino MD Active ZOFRAN 4 MG ORAL TABS 1 by mouth every 6 hours prn nausea ONDANSETRON HCL 31224426587 Active Tangela Forte Active TRAMADOL HCL 50 MG TABS 1 po tid PRN TRAMADOL HCL 01838752808 Active Gareth Cancino MD Active ALPRAZOLAM 0.25 MG TAB 1/2 to 1 tablet by mouth qhs prn ALPRAZOLAM 32990277137 No Longer Active Gareth Cancino MD Active CLOBETASOL PROPIONATE 0.05 % CREA apply to hand rash bid CLOBETASOL PROPIONATE 87583277820 No Longer Active Gareth Cancino MD Active BACTROBAN 2 % CREAM Apply to affected area BID MUPIROCIN CALCIUM 33804029636 No Longer Active Gareth Cancino MD Active LISINOPRIL 20 MG TABS 1 tablet by mouth daily for high blood pressure 10/14 LISINOPRIL 20010113811 Active Gareth Cancino MD Active BACTRIM DS 800-160 MG TAB 1 tab by mouth twice daily TRIMETHOPRIM-SULFAMETHOXAZOLE 70162208561 No Longer Active Gareth Cancino MD Active METOPROLOL SUCCINATE ER 100 MG [id number] 1 pill by mouth daily, for blood pressure METOPROLOL SUCCINATE 69112122363 Active Gareth Cancino MD Active KEFLEX 500 MG CAP 1 po TID x 10 days CEPHALEXIN 97667630402 No Longer Active Blanca Castillo APRN Active METOPROLOL SUCCINATE 50 MG TB24 1 tablet by mouth daily METOPROLOL SUCCINATE 69389605827 No Longer Active Gareth Cancino MD Active OMEPRAZOLE 20 MG TBEC Take one by mouth daily OMEPRAZOLE 10775525148 No Longer Active Gareth Cancino MD Active OMEPRAZOLE 40 MG CPDR 1 tab po qday for acid reflux. OMEPRAZOLE 48637386558 Active Mary Shah APRN Active LEVAQUIN 500 MG TAB 1 tablet by mouth daily LEVOFLOXACIN 16320380491 No Longer Active Gareth Cancino MD Active ALEVE 220 MG TAB 2 tab po qd NAPROXEN SODIUM 20828596575 Active Gareth Cancino MD Active ASPIRIN 81 MG CHEW TAB 1 tablet by mouth daily ASPIRIN 43368159098 Active Gareth Cancino MD Active VENTOLIN HFA 108 (90 BASE) MCG/ACT AERS 1-2 puffs four times a day PRN shortness of breath ALBUTEROL SULFATE 35743975969 Active Mary Shah APRN Active CENTRUM SILVER TABS 1 TAB PO DAILY MULTIPLE VITAMINS-MINERALS 08425932769 Active Gareth Cancino MD Active VITAMIN B12 100 MCG TABS 1 TAB PO DAILY CYANOCOBALAMIN 97914575748 Active Gareth Cancino MD Active CIPRO 500 MG TABS 1 TAB PO BID CIPROFLOXACIN HCL 26503929737 No Longer Active Gareth Cancino MD Active BACTRIM DS 800-160 MG TAB 1 tab by mouth twice daily TRIMETHOPRIM-SULFAMETHOXAZOLE 30571331112 No Longer Active Gareth Cancino MD Active PREDNISONE 20 MG TAB 1 tab po BID for 3 days, then 1 tab po qday for 3 days PREDNISONE 57062953783 No Longer Active Gareth Cancino MD Active FOLIC ACID 800 MCG TABS Take one by mouth daily FOLIC ACID 06719095713 No Longer Active Gareth Cancino MD Active VITAMIN B-6 250 MG TABS Take one by mouth daily PYRIDOXINE HCL 15370924795 No Longer Active Gareth Cancino MD Active B-12 1000 MCG CAPS Take one by mouth daily CYANOCOBALAMIN 15792081545 No Longer Active Gareth Cancino MD Active DOXYCYCLINE HYCLATE 100 MG CAP 1 cap by mouth twice daily DOXYCYCLINE HYCLATE 20578903176 No Longer Active Gareth Cancino MD Active PREDNISONE 20 MG TAB 1 po bid 3 days, then 1 po q day 3 days 2011 PREDNISONE 79933838893 No Longer Active Gareth Cancino MD Active CHANTIX STARTING MONTH RUBEN 0.5 MG X 11 & 1 MG X 42 TABS 0.5mg daily for 3 days , then 0.5mg BID for 4 days, then 1mg BID VARENICLINE TARTRATE 16625236387 No Longer Active Gareth Cancino MD Active SIMVASTATIN 40 MG TABS Take one by mouth daily SIMVASTATIN 27832572293 Active Gareth Cancino MD Active TRIAMTERENE-HCTZ 37.5-25 MG CAPS Take one by mouth daily TRIAMTERENE- HCTZ 12797909815 Active Mary Shah APRN Active CHANTIX STARTING [...] 3 days 2011 PREDNISONE 20 MG TAB 042407 PREDNISONE Inactive DOXYCYCLINE HYCLATE 100 MG CAP 1 cap by mouth twice daily DOXYCYCLINE HYCLATE 100 MG CAP 7143895 DOXYCYCLINE HYCLATE Inactive B-12 1000 MCG CAPS Take one by mouth daily B-12 1000 MCG CAPS CYANOCOBALAMIN Inactive VITAMIN B-6 250 MG TABS Take one by mouth daily VITAMIN B-6 250 MG TABS PYRIDOXINE HCL Inactive FOLIC ACID 800 MCG TABS Take one by mouth daily FOLIC ACID 800 MCG TABS 498108 FOLIC ACID Inactive CIPRO 500 MG TABS 1 TAB PO BID CIPRO 500 MG TABS 850170 CIPROFLOXACIN HCL Inactive OMEPRAZOLE 20 MG TBEC Take one by mouth daily OMEPRAZOLE 20 MG TBEC 025117 OMEPRAZOLE Inactive METOPROLOL SUCCINATE 50 MG TB24 1 tablet by mouth daily METOPROLOL SUCCINATE 50 MG TB24 METOPROLOL SUCCINATE Inactive BACTROBAN 2 % CREAM Apply to affected area BID BACTROBAN 2 % CREAM 544944 MUPIROCIN CALCIUM Inactive CLOBETASOL PROPIONATE 0.05 % CREA apply to hand rash bid CLOBETASOL PROPIONATE 0.05 % CREA 511825 CLOBETASOL PROPIONATE Inactive ALPRAZOLAM 0.25 MG TAB 1/2 to 1 tablet by mouth qhs prn ALPRAZOLAM 0.25 MG TAB 802631 ALPRAZOLAM Inactive WELLBUTRIN SR 150 MG ORAL [id number] take 1 tab po BID WELLBUTRIN SR 150 MG ORAL [id number] BUPROPION HCL Inactive AZITHROMYCIN 250 MG ORAL TABS 1 tab daily AZITHROMYCIN 250 MG ORAL TABS 0900145 AZITHROMYCIN Inactive HYDROCODONE-ACETAMINOPHEN 5-325 MG TABS 1 tab by mouth every 6 hours as needed for bck pain HYDROCODONE-ACETAMINOPHEN 5-325 MG TABS 865861 HYDROCODONE-ACETAMINOPHEN Inactive PREDNISONE 20 MG TAB 1 tab po BID for 3 days, then 1 tab po qday for 3 days PREDNISONE 20 MG TAB 406150 PREDNISONE Inactive BACTRIM DS 800-160 MG TAB 1 tab by mouth twice daily BACTRIM DS 800-160 MG TAB 791202 TRIMETHOPRIM-SULFAMETHOXAZOLE Inactive LEVAQUIN 500 MG TAB 1 tablet by mouth daily LEVAQUIN 500 MG TAB 342676 LEVOFLOXACIN Inactive KEFLEX 500 MG CAP 1 po TID x 10 days KEFLEX 500 MG CAP 887836 CEPHALEXIN Inactive BACTRIM DS 800-160 MG TAB 1 tab by mouth twice daily BACTRIM DS 800-160 MG TAB 385313 TRIMETHOPRIM-SULFAMETHOXAZOLE Inactive FENTANYL 25 MCG/HR PT72 Apply to clean, dry skin and change every 72 hours FENTANYL 25 MCG/HR PT72 602134 FENTANYL Inactive ZITHROMAX 250 MG TAB 2 po today, then 1 po q days 2-5 ZITHROMAX 250 MG TAB 6691188 AZITHROMYCIN Inactive AZITHROMYCIN 250 MG TABS 2 po qd x 1 day, then 1 po qd x 4 days AZITHROMYCIN 250 MG TABS 7351543 AZITHROMYCIN Inactive AZITHROMYCIN 250 MG TABS 2 po qd x 1 day, then 1 po qd x 4 days AZITHROMYCIN 250 MG TABS 1683440 AZITHROMYCIN Inactive PREDNISONE 20 MG TAB take 3 tabs daily for 3 days, 2 tabs daily for 3 days, 1 tab daily for 3 days, 1/2 tab daily for 4 days PREDNISONE 20 MG TAB 281618 PREDNISONE Inactive ZITHROMAX Z-RUBEN 250 MG TABS 2 today, then 1 daily for 4 days 2016 ZITHROMAX Z-RUBEN 250 MG TABS 4500352 AZITHROMYCIN Inactive Vital Signs Date Name Value [...] temperature weight E&M 156 [lb_av] Weight Measured blood pressure, diastolic 88 mm[Hg] BP mcmahon blood pressure, systolic 170 mm[Hg] BP sys pulse rate E&M 72 /min Heart rate temperature E&M 98.2 [degF] Body temperature weight E&M 156.5 [lb_av] Weight Measured Diagnostic Results Date Name Value Unit Range Description Lab Report: Basic Metabolic Panel - Chemistry sodium, serum 133 mmol/L 680-168 8824/08/24 potassium, serum 4.4 mmol/L 3.5-5.2 chloride, serum 95 mmol/L 98-107 carbon dioxide, venous blood 33.0 mmol/L 21.0-32.0 blood glucose 107 mg/dL 65-110 calcium, serum 8.8 mg/dL 8.5-10.1 urea nitrogen, blood 12 mg/dL 7-18 creatinine, serum 0.69 mg/dL 0.55-1.30 Lab Report: CBC, Basic Metabolic Panel - Chemistry sodium, serum 132 mmol/L 402-755 4897/10/12 potassium, serum 4.7 mmol/L 3.5-5.2 chloride, serum [...] CBC - Chemistry sodium, serum 136 mmol/L 355-617 0891/11/01 carbon dioxide, venous blood 32.1 mmol/L 21.0-32.0 [...] PANEL - Chemistry cholesterol, serum 169 mg/dL 967-115 6579/05/09 HDL cholesterol, serum 54 mg/dL > OR=46 [...] mg/dL Encounters Code Encounter Date Provider Facility CPT-70358 Level 4 Est. Patient 07:23:02 CDT Gareth Cancino MD [facility] CPT-39922 Level 3 Est. Patient 09:05:25 WARP TIER Mary Shah APRN [facility] CPT-96540 Level 3 Est. Patient 20:53:25 WARP TIER Gareth Cancino MD [facility] CPT-81712 Level 3 Est. Patient 10:34:55 CDT Gareth Cancino MD [facility] CPT-74467 Level 4 Est. Patient 09:00:18 CDT Gareth Cancino MD [facility] CPT-10775 Level 3 Est. Patient 15:12:03 CDT Gareth Cancino MD [facility] CPT-52058 Level 3 Est. Patient 23:08:20 CDT Gareth Cancino MD [facility] CPT-21838 Level 4 Est. Patient 20:40:10 CDT Gareth Cancino MD [facility] CPT-78427 Level 4 Est. Patient 19:50:11 CDT Gareth Cancino MD [facility] CPT-08736 Level 3 Est. Patient 11:00:13 CDT Gareth Cancino MD [facility] CPT-94435 Level 4 Est. Patient 11:20:21 CDT Gareth Cancino MD [facility] CPT-03591 Level 4 Est. Patient 09:22:18 WARP TIER Gareth Cancino MD [facility] CPT-93583 Level 3 Est. Patient 09:48:04 CDT Gareth Cancino MD [facility] CPT-57954 Level 3 Est. Patient 10:13:16 CDT Gareth Cancino MD [facility] CPT-27354 Level 2 Est. Patient 18:36:56 CDT Gareth Cancino MD [facility] CPT-39296 Level 4 Est. Patient 13:50:53 CDT Gareth Cancino MD [facility] CPT-96612 Level 3 Est. Patient 14:58:33 WARP TIER Gareth Cancino MD [facility] CPT-39862 Level 4 Est. Patient 09:25:57 CDT Gareth Cancino MD [facility] CPT-06922 Level 3 Est. Patient 20:39:33 CDT Noman Edwards DO [facility] CPT-72459 Level 2 Est. Patient 13:17:39 CDT Gareth Cancino MD [facility] CPT-66055 Level 3 Est. Patient 13:37:20 CDT Gareth Cancino MD [facility] CPT-19046 Level 3 Est. Patient 18:09:08 CDT Gareth Cancino MD [facility] CPT-29417 Level 4 Est. Patient 09:59:07 CDT Gareth Cancino MD [facility] Procedures Code Procedure Name Date Entry Date Standard Description CPT-000 Give Appropriate Flu Vaccine 09:29:52 WARP TIER CPT-000 Give Appropriate Flu Vaccine 09:22:20 WARP TIER CPT-86863 TSH - LAB USE ONLY 08:11:40 WARP TIER CPT-42365 Free T4 - LAB USE ONLY 08:11:40 WARP TIER CPT-36265 Venipuncture Draw Fee 08:11:40 WARP TIER CPT-41682 UA w micro - LAB USE ONLY 14:26:22 WARP TIER CPT-G0438 Initial Annual Wellness Exam 20:53:25 WARP TIER CPT-G0009 Administration of Pneumococcal Vaccine 11:42:53 WARP TIER CPT-16296 Prevnar 13 Intramuscular Suspension 11:42:53 WARP TIER 01/07 CPT-75479 First Vx - Ix admin for Medicare patients 11:39:44 WARP TIER CPT-56365 Fluzone High-Dose Intramuscular Suspension 11:39:44 WARP TIER CPT-71845 Prevnar 13 Intramuscular Suspension 09:29:52 WARP TIER 01/07 CPT-15049 CMP - LAB USE ONLY 16:31:15 CDT CPT-76879 CBC - LAB USE ONLY 16:31:14 CDT CPT-57212 Venipuncture Draw Fee 16:31:14 CDT CPT-93180 BMP - LAB USE ONLY 14:37:27 CDT CPT-19238 CBC - LAB USE ONLY 14:37:27 CDT CPT-92308 Venipuncture Draw Fee 14:37:27 CDT CPT-TCMM Transitional Care Mgmt-Moderate 14:43:38 CDT CPT-10068 Venipuncture Draw Fee 10:33:47 CDT CPT-85585 BMP - LAB USE ONLY 10:33:46 CDT CPT-Cryo Cryotherapy 15:12:03 CDT CPT-54635 LS spine AP and Lat - XRAY USE ONLY 10:31:51 CDT 07/27 CPT-75246 Punch biopsy 1 lsn 20:40:09 CDT CPT-G0008 Administration of Influenza Virus Vaccine 10:04:48 WARP TIER CPT-50371 Fluzone High-Dose Intramuscular Suspension 10:04:48 WARP TIER CPT-57705 Ribs unilat w PA chst min 3V 10:45:40 CDT CPT-LR Lesion Removal 13:14:55 CDT CPT-Cryo Cryotherapy 13:14:55 CDT CPT-86491 Venipuncture Draw Fee 10:25:49 CDT CPT-91095 Administration single or combination vaccine inc oral 13 :22:14 WARP TIER CPT-50621 Influenza High Dose age 65+ 13:22:14 WARP TIER
--- OUTSIDE RECORDS SUMMARY | 2016-12-06 08:17 | XMS REPORT | Clinical Summary ---
Author Author Admin, HILARIA Organization [facility] Address Unknown Phone Unavailable Allergies, Adverse Reactions, [...] Dysuria 788.1 Active Gareth Cancino MD Dysuria Bronchitis-Acute ICD-466.0 Inactive Gareth Cancino MD Medication List Medication Instructions Start Date Stop Date Generic Name ND Status Provider Patient Instruction OMEPRAZOLE 40 MG CPDR 1 tab po qday for acid reflux. OMEPRAZOLE 22485933625 Active Gareth Cancino MD Active LEVAQUIN 500 MG TAB 1 tablet by mouth daily LEVOFLOXACIN 48339623419 No Longer Active Gareth Cancino MD Active ALEVE 220 MG TAB 2 tab po qd NAPROXEN SODIUM 57514498227 Active Gareth Cancino MD Active ASPIRIN 81 MG CHEW TAB 1 tablet by mouth daily ASPIRIN 19891167747 Active Gareth Cancino MD Active VENTOLIN HFA 108 (90 BASE) MCG/ACT AERS 1-2 puffs four times a day PRN shortness of breath ALBUTEROL SULFATE 66114761402 Active Fuad Franks MD Active CENTRUM SILVER TABS 1 TAB PO DAILY MULTIPLE VITAMINS-MINERALS 15990900839 Active Gareth Cancino MD Active VITAMIN B12 100 MCG TABS 1 TAB PO DAILY CYANOCOBALAMIN 88183590500 Active Gareth Cancino MD Active CIPRO 500 MG TABS 1 TAB PO BID CIPROFLOXACIN HCL 68356040827 No Longer Active Gareth Cancino MD Active BACTRIM DS 800-160 MG TAB 1 tab by mouth twice daily TRIMETHOPRIM-SULFAMETHOXAZOLE 16652043221 No Longer Active Gareth Cancino MD Active METOPROLOL SUCCINATE 50 MG TB24 1 tablet by mouth daily METOPROLOL SUCCINATE 11481578889 Active Gareth Cancino MD Active PREDNISONE 20 MG TAB 1 tab po BID for 3 days, then 1 tab po qday for 3 days PREDNISONE 27901214365 No Longer Active Gareth Cancino MD Active FOLIC ACID 800 MCG TABS Take one by mouth daily FOLIC ACID 04419584916 No Longer Active Gareth Cancino MD Active VITAMIN B-6 250 MG TABS Take one by mouth daily PYRIDOXINE HCL 79700706609 No Longer Active Gareth Cancino MD Active B-12 1000 MCG CAPS Take one by mouth daily CYANOCOBALAMIN 45986571757 No Longer Active Gareth Cancino MD Active DOXYCYCLINE HYCLATE 100 MG CAP 1 cap by mouth twice daily DOXYCYCLINE HYCLATE 99465116753 No Longer Active Gareth Cancino MD Active PREDNISONE 20 MG TAB 1 po bid 3 days, then 1 po q day 3 days 2011 PREDNISONE 79416696162 No Longer Active Gareth Cancino MD Active CHANTIX STARTING MONTH RUBEN 0.5 MG X 11 & 1 MG X 42 TABS 0.5mg daily for 3 days , then 0.5mg BID for 4 days, then 1mg BID VARENICLINE TARTRATE 66073120866 No Longer Active Gareth Cancino MD Active ALPRAZOLAM 0.25 MG TAB 1/2 to 1 tablet by mouth qhs prn ALPRAZOLAM 84351828870 Active Gareth Cancino MD Active SIMVASTATIN 40 MG TABS Take one by mouth daily SIMVASTATIN 63980403512 Active Gareth Cancino MD Active TRIAMTERENE-HCTZ 37.5-25 MG CAPS Take one by mouth daily TRIAMTERENE- HCTZ 54562750492 Active Gareth Cancino MD Active OMEPRAZOLE 20 MG TBEC Take one by mouth daily OMEPRAZOLE 29818485552 Active Gareth Cancino MD Active CHANTIX STARTING [...] 3 days 2011 PREDNISONE 20 MG TAB 604319 PREDNISONE Inactive DOXYCYCLINE HYCLATE 100 MG CAP 1 cap by mouth twice daily DOXYCYCLINE HYCLATE 100 MG CAP 189708 DOXYCYCLINE HYCLATE Inactive B-12 1000 MCG CAPS Take one by mouth daily B-12 1000 MCG CAPS CYANOCOBALAMIN Inactive VITAMIN B-6 250 MG TABS Take one by mouth daily VITAMIN B-6 250 MG TABS PYRIDOXINE HCL Inactive FOLIC ACID 800 MCG TABS Take one by mouth daily FOLIC ACID 800 MCG TABS 604038 FOLIC ACID Inactive CIPRO 500 MG TABS 1 TAB PO BID CIPRO 500 MG TABS 055187 CIPROFLOXACIN HCL Inactive PREDNISONE 20 MG TAB 1 tab po BID for 3 days, then 1 tab po qday for 3 days PREDNISONE 20 MG TAB 252742 PREDNISONE Inactive BACTRIM DS 800-160 MG TAB 1 tab by mouth twice daily BACTRIM DS 800-160 MG TAB TRIMETHOPRIM-SULFAMETHOXAZOLE Inactive LEVAQUIN 500 MG TAB 1 tablet by mouth daily LEVAQUIN 500 MG TAB 861814 LEVOFLOXACIN Inactive Vital Signs Date Name Value [...] MICROALBUMIN - Chemistry sodium, serum 138 mmol/L 559-643 6296/09/10 potassium, serum 4.2 mmol/L 3.5-5.2 chloride, serum [...] 0.20 mg/dL 0.00-1.00 cholesterol, serum 153 mg/dL 662-736 9089/09/10 triglyceride, serum, fasting 69 mg/dL 30-200 HDL [...] mg/dL Encounters Code Encounter Date Provider Facility CPT-80957 Level 4 Est. Patient 09:22:18 [facility]ABIL[facility] C[facility] MANAGER Gareth Cancino MD [facility] CPT-77608 Level 3 Est. Patient 09:48:04 CDT Gareth Cancino MD [facility] CPT-89967 Level 3 Est. Patient 10:13:16 CDT Gareth Cancino MD [facility] CPT-51365 Level 2 Est. Patient 18:36:56 CDT Gareth Cancino MD [facility] CPT-60177 Level 4 Est. Patient 13:50:53 CDT Gareth Cancino MD [facility] CPT-68242 Level 3 Est. Patient 14:58:33 REHABILITATION CENTER MANAGER Gareth Cancino MD [facility] CPT-61976 Level 4 Est. Patient 09:25:57 CDT Gareth Cancino MD [facility] CPT-44416 Level 3 Est. Patient 20:39:33 CDT Noman Edwards DO [facility] CPT-63479 Level 2 Est. Patient 13:17:39 CDT Gareth Cancino MD [facility] CPT-36083 Level 3 Est. Patient 13:37:20 CDT Gareth Cancino MD [facility] CPT-08812 Level 3 Est. Patient 18:09:08 CDT Gareth Cancino MD [facility] CPT-79598 Level 4 Est. Patient 09:59:07 CDT Gareth Cancino MD [facility] Procedures Code Procedure Name Date Entry Date Standard Description CPT-G0008 Administration of Influenza Virus Vaccine 10:04:48 REHABILITATION CENTER MANAGER CPT-16589 Fluzone High-Dose Intramuscular Suspension 10:04:48 REHABILITATION CENTER MANAGER CPT-59383 Ribs unilat w PA chst min 3V 10:45:40 CDT CPT-LR Lesion Removal 13:14:55 CDT CPT-Cryo Cryotherapy 13:14:55 CDT CPT-38697 Venipuncture Draw Fee 10:25:49 CDT CPT-06295 Administration single or combination vaccine inc oral 13 :22:14 REHABILITATION CENTER MANAGER CPT-44722 Influenza High Dose age 65+ 13:22:14 REHABILITATION CENTER MANAGER
--- OUTSIDE RECORDS SUMMARY | 2016-12-06 08:17 | XMS REPORT | Clinical Summary ---
Author Author Admin, HILARIA Organization [employer] Address Unknown Phone Unavailable Allergies, Adverse Reactions, [...] classified ACTINIC KERATOSIS, CHEEK, LEFT 702.0 Resolved Garteh Cancino MD Actinic keratosis Rib pain, left [...] hours as needed for bck pain HYDROCODONE-ACETAMINOPHEN 11353571141 No Longer Active Gareth Cancino MD Active FENTANYL 12 MCG/HR PT72 Apply to clean, dry skin and change every 72 hours FENTANYL 49737431535 Active Gareth Cancino MD Active ALPRAZOLAM 0.25 MG TAB 1 tablet by mouth q hs prn ALPRAZOLAM 68323215710 Active Gareth Cancino MD Active AZITHROMYCIN 250 MG ORAL TABS 1 tab daily AZITHROMYCIN 76548972346 No Longer Active Gareth Cancino MD Active ZITHROMAX 250 MG TAB 2 po today, then 1 po q days 2-5 AZITHROMYCIN 11107687938 No Longer Active Tangela Forte Active IPRATROPIUM-ALBUTEROL 0.5-2.5 (3) MG/3ML INH SOLN nebulize 1 vial every 6hrs prn shortness of breath IPRATROPIUM-ALBUTEROL 32730395997 Active Gareth Cancino MD Active FENTANYL 25 MCG/HR PT72 Apply to clean, dry skin and change every 72 hours FENTANYL 42523321237 No Longer Active Gareth Cancino MD Active WELLBUTRIN SR 150 MG ORAL [id number] take 1 tab po BID BUPROPION HCL 98211540549 No Longer Active Gareth Cancino MD Active ZOFRAN 4 MG ORAL TABS 1 by mouth every 6 hours prn nausea ONDANSETRON HCL 48654848121 Active Tangela Forte Active TRAMADOL HCL 50 MG TABS 1 po tid PRN TRAMADOL HCL 38789889345 Active Gareth Cancino MD Active ALPRAZOLAM 0.25 MG TAB 1/2 to 1 tablet by mouth qhs prn ALPRAZOLAM 48585130760 No Longer Active Gareth Cancino MD Active CLOBETASOL PROPIONATE 0.05 % CREA apply to hand rash bid CLOBETASOL PROPIONATE 56705190679 No Longer Active Gareth Cancino MD Active BACTROBAN 2 % CREAM Apply to affected area BID MUPIROCIN CALCIUM 56030545659 No Longer Active Gareth Cancino MD Active LISINOPRIL 20 MG TABS 1 tablet by mouth daily for high blood pressure 10/14 LISINOPRIL 84569732545 Active Gareth Cancino MD Active BACTRIM DS 800-160 MG TAB 1 tab by mouth twice daily TRIMETHOPRIM-SULFAMETHOXAZOLE 83248485109 No Longer Active Gareth Cancino MD Active METOPROLOL SUCCINATE ER 100 MG [id number] 1 pill by mouth daily, for blood pressure METOPROLOL SUCCINATE 35822789364 Active Gareth Cancino MD Active KEFLEX 500 MG CAP 1 po TID x 10 days CEPHALEXIN 76297943856 No Longer Active Blanca Castillo APRN Active METOPROLOL SUCCINATE 50 MG TB24 1 tablet by mouth daily METOPROLOL SUCCINATE 98073721565 No Longer Active Gareth Cancino MD Active OMEPRAZOLE 20 MG TBEC Take one by mouth daily OMEPRAZOLE 70046665236 No Longer Active Gareth Cancino MD Active OMEPRAZOLE 40 MG CPDR 1 tab po qday for acid reflux. OMEPRAZOLE 98924867078 Active Mary Shah APRN Active LEVAQUIN 500 MG TAB 1 tablet by mouth daily LEVOFLOXACIN 39288344200 No Longer Active Gareth Cancino MD Active ALEVE 220 MG TAB 2 tab po qd NAPROXEN SODIUM 12831164934 Active Gareth Cancino MD Active ASPIRIN 81 MG CHEW TAB 1 tablet by mouth daily ASPIRIN 85698375353 Active Gareth Cancino MD Active VENTOLIN HFA 108 (90 BASE) MCG/ACT AERS 1-2 puffs four times a day PRN shortness of breath ALBUTEROL SULFATE 85165018890 Active Mary Shah APRN Active CENTRUM SILVER TABS 1 TAB PO DAILY MULTIPLE VITAMINS-MINERALS 54905936501 Active Gareth Cancino MD Active VITAMIN B12 100 MCG TABS 1 TAB PO DAILY CYANOCOBALAMIN 89359120647 Active Gareth Cancino MD Active CIPRO 500 MG TABS 1 TAB PO BID CIPROFLOXACIN HCL 39418673006 No Longer Active Gareth Cancino MD Active BACTRIM DS 800-160 MG TAB 1 tab by mouth twice daily TRIMETHOPRIM-SULFAMETHOXAZOLE 57680281820 No Longer Active Gareth Cancino MD Active PREDNISONE 20 MG TAB 1 tab po BID for 3 days, then 1 tab po qday for 3 days PREDNISONE 30298693310 No Longer Active Gareth Cancino MD Active FOLIC ACID 800 MCG TABS Take one by mouth daily FOLIC ACID 15256442764 No Longer Active Gareth Cancino MD Active VITAMIN B-6 250 MG TABS Take one by mouth daily PYRIDOXINE HCL 48656806250 No Longer Active Gareth Cancino MD Active B-12 1000 MCG CAPS Take one by mouth daily CYANOCOBALAMIN 98898361003 No Longer Active Gareth Cancino MD Active DOXYCYCLINE HYCLATE 100 MG CAP 1 cap by mouth twice daily DOXYCYCLINE HYCLATE 04951462704 No Longer Active Gareth Cancino MD Active PREDNISONE 20 MG TAB 1 po bid 3 days, then 1 po q day 3 days 2011 PREDNISONE 92947797374 No Longer Active Gareth Cancino MD Active CHANTIX STARTING MONTH RUBEN 0.5 MG X 11 & 1 MG X 42 TABS 0.5mg daily for 3 days , then 0.5mg BID for 4 days, then 1mg BID VARENICLINE TARTRATE 80908301836 No Longer Active Gareth Cancino MD Active SIMVASTATIN 40 MG TABS Take one by mouth daily SIMVASTATIN 56091061387 Active Gareth Cancino MD Active TRIAMTERENE-HCTZ 37.5-25 MG CAPS Take one by mouth daily TRIAMTERENE- HCTZ 73243585913 Active Gareth Cancino MD Active CHANTIX STARTING [...] 3 days 2011 PREDNISONE 20 MG TAB 173747 PREDNISONE Inactive DOXYCYCLINE HYCLATE 100 MG CAP 1 cap by mouth twice daily DOXYCYCLINE HYCLATE 100 MG CAP 1322994 DOXYCYCLINE HYCLATE Inactive B-12 1000 MCG CAPS Take one by mouth daily B-12 1000 MCG CAPS CYANOCOBALAMIN Inactive VITAMIN B-6 250 MG TABS Take one by mouth daily VITAMIN B-6 250 MG TABS PYRIDOXINE HCL Inactive FOLIC ACID 800 MCG TABS Take one by mouth daily FOLIC ACID 800 MCG TABS 755541 FOLIC ACID Inactive CIPRO 500 MG TABS 1 TAB PO BID CIPRO 500 MG TABS 430068 CIPROFLOXACIN HCL Inactive OMEPRAZOLE 20 MG TBEC Take one by mouth daily OMEPRAZOLE 20 MG TBEC 541848 OMEPRAZOLE Inactive METOPROLOL SUCCINATE 50 MG TB24 1 tablet by mouth daily METOPROLOL SUCCINATE 50 MG TB24 METOPROLOL SUCCINATE Inactive BACTROBAN 2 % CREAM Apply to affected area BID BACTROBAN 2 % CREAM 175475 MUPIROCIN CALCIUM Inactive CLOBETASOL PROPIONATE 0.05 % CREA apply to hand rash bid CLOBETASOL PROPIONATE 0.05 % CREA 909447 CLOBETASOL PROPIONATE Inactive ALPRAZOLAM 0.25 MG TAB 1/2 to 1 tablet by mouth qhs prn ALPRAZOLAM 0.25 MG TAB 897464 ALPRAZOLAM Inactive WELLBUTRIN SR 150 MG ORAL [id number] take 1 tab po BID WELLBUTRIN SR 150 MG ORAL SA36I-ROR BUPROPION HCL Inactive AZITHROMYCIN 250 MG ORAL TABS 1 tab daily AZITHROMYCIN 250 MG ORAL TABS 0249373 AZITHROMYCIN Inactive HYDROCODONE-ACETAMINOPHEN 5-325 MG TABS 1 tab by mouth every 6 hours as needed for bck pain HYDROCODONE-ACETAMINOPHEN 5-325 MG TABS 143650 HYDROCODONE-ACETAMINOPHEN Inactive PREDNISONE 20 MG TAB 1 tab po BID for 3 days, then 1 tab po qday for 3 days PREDNISONE 20 MG TAB 683495 PREDNISONE Inactive BACTRIM DS 800-160 MG TAB 1 tab by mouth twice daily BACTRIM DS 800-160 MG TAB 499524 TRIMETHOPRIM-SULFAMETHOXAZOLE Inactive LEVAQUIN 500 MG TAB 1 tablet by mouth daily LEVAQUIN 500 MG TAB 797284 LEVOFLOXACIN Inactive KEFLEX 500 MG CAP 1 po TID x 10 days KEFLEX 500 MG CAP 548604 CEPHALEXIN Inactive BACTRIM DS 800-160 MG TAB 1 tab by mouth twice daily BACTRIM DS 800-160 MG TAB 559792 TRIMETHOPRIM-SULFAMETHOXAZOLE Inactive FENTANYL 25 MCG/HR PT72 Apply to clean, dry skin and change every 72 hours FENTANYL 25 MCG/HR PT72 350308 FENTANYL Inactive ZITHROMAX 250 MG TAB 2 po today, then 1 po q days 2-5 ZITHROMAX 250 MG TAB 9315054 AZITHROMYCIN Inactive Vital Signs Date Name Value [...] Panel - Chemistry sodium, serum 133 mmol/L 614-612 5463/08/24 potassium, serum 4.4 mmol/L 3.5-5.2 chloride, serum 95 mmol/L 98-107 carbon dioxide, venous blood 33.0 mmol/L 21.0-32.0 blood glucose 107 mg/dL 65-110 calcium, serum 8.8 mg/dL 8.5-10.1 urea nitrogen, blood 12 mg/dL 7-18 creatinine, serum 0.69 mg/dL 0.55-1.30 Lab Report: CBC, Basic Metabolic Panel - Chemistry sodium, serum 132 mmol/L 426-178 7263/10/12 potassium, serum 4.7 mmol/L 3.5-5.2 chloride, serum [...] CBC - Chemistry sodium, serum 136 mmol/L 636-124 5504/11/01 carbon dioxide, venous blood 32.1 mmol/L 21.0-32.0 [...] count 262 10^3/MM^3 10*3/mm3 142-424 Lab Report: UADIP W/MICRO, AUTO - Chemistry [...] 5.0-8.5 Encounters Code Encounter Date Provider Facility CPT-46962 Level 3 Est. Patient 20:53:25 ASSET PROTECTION REPRESENTATIVE Gareth Cancino MD [facility] CPT-73723 Level 3 Est. Patient 10:34:55 CDT Gareth Cancino MD [facility] CPT-84066 Level 4 Est. Patient 09:00:18 CDT Gareth Cancino MD [facility] CPT-67669 Level 3 Est. Patient 15:12:03 CDT Gareth Cancino MD [facility] CPT-53975 Level 3 Est. Patient 23:08:20 CDT Gareth Cancino MD [facility] CPT-34205 Level 4 Est. Patient 20:40:10 CDT Gareth Cancino MD [facility] CPT-93828 Level 4 Est. Patient 19:50:11 CDT Gareth Cancino MD [facility] CPT-54179 Level 3 Est. Patient 11:00:13 CDT Gareth Cancino MD [facility] CPT-89774 Level 4 Est. Patient 11:20:21 CDT Gareth Cancino MD [facility] CPT-80130 Level 4 Est. Patient 09:22:18 ASSET PROTECTION REPRESENTATIVE Gareth Cancino MD [facility] CPT-28556 Level 3 Est. Patient 09:48:04 CDT Gareth Cancino MD [facility] CPT-32750 Level 3 Est. Patient 10:13:16 CDT Gareth Cancino MD [facility] CPT-04096 Level 2 Est. Patient 18:36:56 CDT Gareth Cancino MD [facility] CPT-89098 Level 4 Est. Patient 13:50:53 CDT Gareth Cancino MD [facility] CPT-85968 Level 3 Est. Patient 14:58:33 ASSET PROTECTION REPRESENTATIVE Gareth Cancino MD [facility] CPT-60472 Level 4 Est. Patient 09:25:57 CDT Gareth Cancino MD [facility] CPT-03549 Level 3 Est. Patient 20:39:33 CDT Noman Edwards DO [facility] CPT-87761 Level 2 Est. Patient 13:17:39 CDT Gareth Cancino MD [facility] CPT-00212 Level 3 Est. Patient 13:37:20 CDT Gareth Cancino MD [facility] CPT-28573 Level 3 Est. Patient 18:09:08 CDT Gareth Cancino MD [facility] CPT-61928 Level 4 Est. Patient 09:59:07 CDT Gareth Cancino MD [facility] Procedures Code Procedure Name Date Entry Date Standard Description CPT-76290 TSH - LAB USE ONLY 08:11:40 ASSET PROTECTION REPRESENTATIVE CPT-88980 Free T4 - LAB USE ONLY 08:11:40 ASSET PROTECTION REPRESENTATIVE CPT-77555 Venipuncture Draw Fee 08:11:40 ASSET PROTECTION REPRESENTATIVE CPT-00557 UA w micro - LAB USE ONLY 14:26:22 ASSET PROTECTION REPRESENTATIVE CPT-G0438 Initial Annual Wellness Exam 20:53:25 ASSET PROTECTION REPRESENTATIVE CPT-G0009 Administration of Pneumococcal Vaccine 11:42:53 ASSET PROTECTION REPRESENTATIVE CPT-17168 Prevnar 13 Intramuscular Suspension 11:42:53 ASSET PROTECTION REPRESENTATIVE 01/07 CPT-50394 First Vx - Ix admin for Medicare patients 11:39:44 ASSET PROTECTION REPRESENTATIVE CPT-53885 Fluzone High-Dose Intramuscular Suspension 11:39:44 ASSET PROTECTION REPRESENTATIVE CPT-64513 Prevnar 13 Intramuscular Suspension 09:29:52 ASSET PROTECTION REPRESENTATIVE 01/07 CPT-97310 CMP - LAB USE ONLY 16:31:15 CDT CPT-19577 CBC - LAB USE ONLY 16:31:14 CDT CPT-91043 Venipuncture Draw Fee 16:31:14 CDT CPT-11212 BMP - LAB USE ONLY 14:37:27 CDT CPT-80838 CBC - LAB USE ONLY 14:37:27 CDT CPT-61450 Venipuncture Draw Fee 14:37:27 CDT CPT-TCMM Transitional Care Mgmt-Moderate 14:43:38 CDT CPT-87863 Venipuncture Draw Fee 10:33:47 CDT CPT-61977 BMP - LAB USE ONLY 10:33:46 CDT CPT-Cryo Cryotherapy 15:12:03 CDT CPT-73556 LS spine AP and Lat - XRAY USE ONLY 10:31:51 CDT 07/27 CPT-43688 Punch biopsy 1 lsn 20:40:09 CDT CPT-G0008 Administration of Influenza Virus Vaccine 10:04:48 ASSET PROTECTION REPRESENTATIVE CPT-80555 Fluzone High-Dose Intramuscular Suspension 10:04:48 ASSET PROTECTION REPRESENTATIVE CPT-54493 Ribs unilat w PA chst min 3V 10:45:40 CDT CPT-LR Lesion Removal 13:14:55 CDT CPT-Cryo Cryotherapy 13:14:55 CDT CPT-86970 Venipuncture Draw Fee 10:25:49 CDT CPT-61502 Administration single or combination vaccine inc oral 13 :22:14 ASSET PROTECTION REPRESENTATIVE CPT-94690 Influenza High Dose age 65+ 13:22:14 ASSET PROTECTION REPRESENTATIVE
--- OUTSIDE RECORDS SUMMARY | 2016-12-06 08:18 | XMS REPORT | Clinical Summary ---
Author Author Admin, Leon Organization [employer] Address Unknown Phone Unavailable Allergies, Adverse Reactions, [...] cause Skin lesion 709.9 Active Blanca Castillo MANAGER FILTER Unspecified disorder of skin and subcutaneous tissue Folliculitis 704.8 Active Gareth Cancino MD Other specified diseases of hair and hair follicles Low back pain, chronic 724.2 Active Gareth Cancino MD Lumbago Frequency of urination 788.41 Active Negin Garcia LPN Urinary frequency Bronchitis-Acute ICD-466.0 Inactive Gareth Cancino MD Medication List Medication Instructions Start Date Stop Date Generic Name [facility] Status Provider Patient Instruction ALPRAZOLAM 0.25 MG TAB 1/2 to 1 tablet by mouth qhs prn ALPRAZOLAM 26433375588 No Longer Active Gareth Cancino MD Active CLOBETASOL PROPIONATE 0.05 % CREA apply to hand rash bid CLOBETASOL PROPIONATE 78988346950 No Longer Active Gareth Cancino MD Active BACTROBAN 2 % CREAM Apply to affected area BID MUPIROCIN CALCIUM 42419178978 No Longer Active Gareth Cancino MD Active LISINOPRIL 20 MG TABS 1 tablet by mouth daily for high blood pressure 10/14 LISINOPRIL 27222191649 Active Gareth Cancino MD Active BACTRIM DS 800-160 MG TAB 1 tab by mouth twice daily TRIMETHOPRIM-SULFAMETHOXAZOLE 89594061368 No Longer Active Gareth Cancino MD Active METOPROLOL SUCCINATE ER 100 MG [id number] 1 pill by mouth daily, for blood pressure METOPROLOL SUCCINATE 69280233490 Active Gareth Cancino MD Active KEFLEX 500 MG CAP 1 po TID x 10 days CEPHALEXIN 76094470595 No Longer Active Blanca Castillo APRN Active WELLBUTRIN SR 150 MG ORAL [id number] take 1 tab po BID BUPROPION HCL 47297198749 Active Gareth Cancino MD Active METOPROLOL SUCCINATE 50 MG TB24 1 tablet by mouth daily METOPROLOL SUCCINATE 45165728899 No Longer Active Gareth Cancino MD Active OMEPRAZOLE 20 MG TBEC Take one by mouth daily OMEPRAZOLE 14152995030 No Longer Active Gareth Cancino MD Active OMEPRAZOLE 40 MG CPDR 1 tab po qday for acid reflux. OMEPRAZOLE 25273733818 Active Mary Shah APRN Active LEVAQUIN 500 MG TAB 1 tablet by mouth daily LEVOFLOXACIN 98727975633 No Longer Active Gareth Cancino MD Active ALEVE 220 MG TAB 2 tab po qd NAPROXEN SODIUM 08329452305 Active Gareth Cancino MD Active ASPIRIN 81 MG CHEW TAB 1 tablet by mouth daily ASPIRIN 46965873017 Active Gareth Cancino MD Active VENTOLIN HFA 108 (90 BASE) MCG/ACT AERS 1-2 puffs four times a day PRN shortness of breath ALBUTEROL SULFATE 48427888551 Active Mary Shah MANAGER FILTER Active CENTRUM SILVER TABS 1 TAB PO DAILY MULTIPLE VITAMINS-MINERALS 91538722509 Active Gareth Cancino MD Active VITAMIN B12 100 MCG TABS 1 TAB PO DAILY CYANOCOBALAMIN 51532630946 Active Gareth Cancino MD Active CIPRO 500 MG TABS 1 TAB PO BID CIPROFLOXACIN HCL 90541554256 No Longer Active Gareth Cancino MD Active BACTRIM DS 800-160 MG TAB 1 tab by mouth twice daily TRIMETHOPRIM-SULFAMETHOXAZOLE 65107979057 No Longer Active Gareth Cancino MD Active PREDNISONE 20 MG TAB 1 tab po BID for 3 days, then 1 tab po qday for 3 days PREDNISONE 18059574427 No Longer Active Gareth Cancino MD Active FOLIC ACID 800 MCG TABS Take one by mouth daily FOLIC ACID 57046803160 No Longer Active Gareth Cancino MD Active VITAMIN B-6 250 MG TABS Take one by mouth daily PYRIDOXINE HCL 07532503059 No Longer Active Gareth Cancino MD Active B-12 1000 MCG CAPS Take one by mouth daily CYANOCOBALAMIN 05872813276 No Longer Active Gareth Cancino MD Active DOXYCYCLINE HYCLATE 100 MG CAP 1 cap by mouth twice daily DOXYCYCLINE HYCLATE 79286473573 No Longer Active Gareth Cancino MD Active PREDNISONE 20 MG TAB 1 po bid 3 days, then 1 po q day 3 days 2011 PREDNISONE 07850685929 No Longer Active Gareth Cancino MD Active CHANTIX STARTING MONTH RUBEN 0.5 MG X 11 & 1 MG X 42 TABS 0.5mg daily for 3 days , then 0.5mg BID for 4 days, then 1mg BID VARENICLINE TARTRATE 59214982872 No Longer Active Gareth Cancino MD Active SIMVASTATIN 40 MG TABS Take one by mouth daily SIMVASTATIN 64893055525 Active Gareth Cancino MD Active TRIAMTERENE-HCTZ 37.5-25 MG CAPS Take one by mouth daily TRIAMTERENE- HCTZ 90552027841 Active Gareth Cancino MD Active CHANTIX STARTING [...] 3 days 2011 PREDNISONE 20 MG TAB 125498 PREDNISONE Inactive DOXYCYCLINE HYCLATE 100 MG CAP 1 cap by mouth twice daily DOXYCYCLINE HYCLATE 100 MG CAP 5719839 DOXYCYCLINE HYCLATE Inactive B-12 1000 MCG CAPS Take one by mouth daily B-12 1000 MCG CAPS CYANOCOBALAMIN Inactive VITAMIN B-6 250 MG TABS Take one by mouth daily VITAMIN B-6 250 MG TABS PYRIDOXINE HCL Inactive FOLIC ACID 800 MCG TABS Take one by mouth daily FOLIC ACID 800 MCG TABS 818733 FOLIC ACID Inactive CIPRO 500 MG TABS 1 TAB PO BID CIPRO 500 MG TABS 221829 CIPROFLOXACIN HCL Inactive OMEPRAZOLE 20 MG TBEC Take one by mouth daily OMEPRAZOLE 20 MG TBEC 453283 OMEPRAZOLE Inactive METOPROLOL SUCCINATE 50 MG TB24 1 tablet by mouth daily METOPROLOL SUCCINATE 50 MG TB24 METOPROLOL SUCCINATE Inactive BACTROBAN 2 % CREAM Apply to affected area BID BACTROBAN 2 % CREAM 430711 MUPIROCIN CALCIUM Inactive CLOBETASOL PROPIONATE 0.05 % CREA apply to hand rash bid CLOBETASOL PROPIONATE 0.05 % CREA 103621 CLOBETASOL PROPIONATE Inactive ALPRAZOLAM 0.25 MG TAB 1/2 to 1 tablet by mouth qhs prn ALPRAZOLAM 0.25 MG TAB 138977 ALPRAZOLAM Inactive PREDNISONE 20 MG TAB 1 tab po BID for 3 days, then 1 tab po qday for 3 days PREDNISONE 20 MG TAB 942519 PREDNISONE Inactive BACTRIM DS 800-160 MG TAB 1 tab by mouth twice daily BACTRIM DS 800-160 MG TAB 714873 TRIMETHOPRIM-SULFAMETHOXAZOLE Inactive LEVAQUIN 500 MG TAB 1 tablet by mouth daily LEVAQUIN 500 MG TAB 763293 LEVOFLOXACIN Inactive KEFLEX 500 MG CAP 1 po TID x 10 days KEFLEX 500 MG CAP 738883 CEPHALEXIN Inactive BACTRIM DS 800-160 MG TAB 1 tab by mouth twice daily BACTRIM DS 800-160 MG TAB 426019 TRIMETHOPRIM-SULFAMETHOXAZOLE Inactive Vital Signs Date Name Value [...] ... - Chemistry cholesterol, serum 195 mg/dL 300-968 9955/12/02 triglyceride, serum, fasting 74 mg/dL 30-200 HDL cholesterol, serum 52 mg/dL 32-96 LDL cholesterol, serum 128 mg/dL 0-130 sodium, serum 134 mmol/L 159-462 3045/12/02 carbon dioxide, venous blood 30.3 mmol/L 21.0-32.0 [...] 5.0-8.5 Encounters Code Encounter Date Provider Facility CPT-80456 Level 3 Est. Patient 23:08:20 CDT Gareth Cancino MD [facility]-36365 Level 4 Est. Patient 20:40:10 CDT Gareth Cancino MD [facility]-15661 Level 4 Est. Patient 19:50:11 CDT Gareth Cancino MD [facility]-80234 Level 3 Est. Patient 11:00:13 CDT Gareth Cancino MD [facility]-42857 Level 4 Est. Patient 11:20:21 CDT Gareth Cancino MD [facility]-62602 Level 4 Est. Patient 09:22:18 COMMISSIONING AGENT Gareth Cancino MD [facility]-75290 Level 3 Est. Patient 09:48:04 CDT Gareth Cancino MD [facility]-15754 Level 3 Est. Patient 10:13:16 CDT Gareth Cancino MD [facility]-24076 Level 2 Est. Patient 18:36:56 CDT Gareth Cancino MD [facility]-69324 Level 4 Est. Patient 13:50:53 CDT Gareth Cancino MD [facility]-27734 Level 3 Est. Patient 14:58:33 COMMISSIONING AGENT Gareth Cancino MD [facility] CPT-88788 Level 4 Est. Patient 09:25:57 CDT Gareth Cancino MD [facility] CPT-67076 Level 3 Est. Patient 20:39:33 CDT Noman Edwards [facility] CPT-58021 Level 2 Est. Patient 13:17:39 CDT Gareth Cancino MD [facility] CPT-43469 Level 3 Est. Patient 13:37:20 CDT Gareth Cancino MD [facility] CPT-93477 Level 3 Est. Patient 18:09:08 CDT Gareth Cancino MD [facility] CPT-40696 Level 4 Est. Patient 09:59:07 CDT Gareth Cancino MD [facility] Procedures Code Procedure Name Date Entry Date Standard Description CPT-67803 LS spine AP and Lat - XRAY USE ONLY 10:31:51 CDT 07/27 CPT-39853 Punch biopsy 1 lsn 20:40:09 CDT CPT-G0008 Administration of Influenza Virus Vaccine 10:04:48 COMMISSIONING AGENT CPT-03060 Fluzone High-Dose Intramuscular Suspension 10:04:48 COMMISSIONING AGENT CPT-93751 Ribs unilat w PA chst min 3V 10:45:40 CDT CPT-LR Lesion Removal 13:14:55 CDT CPT-Cryo Cryotherapy 13:14:55 CDT CPT-26113 Venipuncture Draw Fee 10:25:49 CDT CPT-01581 Administration single or combination vaccine inc oral 13 :22:14 COMMISSIONING AGENT CPT-48209 Influenza High Dose age 65+ 13:22:14 COMMISSIONING AGENT
--- OUTSIDE RECORDS SUMMARY | 2016-12-06 08:18 | XMS REPORT | Clinical Summary ---
Author Author Admin, HILARIA Organization [facility] Address Unknown Phone Unavailable Allergies, Adverse Reactions, Alerts Allergy Name Reaction Description Start Date Severity Status Provider No Known Allergies Danuta Modi Conditions or Problems Problem Name [...] Generic Name NDC Status Provider Patient Instruction LISINOPRIL 20 MG TABS 1 tablet by mouth daily for high blood pressure 10/14 LISINOPRIL 11256349037 Active Gareth Cancino MD Active BACTROBAN 2 % CREAM Apply to affected area BID MUPIROCIN CALCIUM 81693306381 Active Gareth Cancino MD Active BACTRIM DS 800-160 MG TAB 1 tab by mouth twice daily TRIMETHOPRIM-SULFAMETHOXAZOLE 84550999493 No Longer Active Gareth Cancino MD Active METOPROLOL SUCCINATE ER 100 MG [id number] 1 pill by mouth daily, for blood pressure METOPROLOL SUCCINATE 39057885379 Active Gareth Cancino MD Active KEFLEX 500 MG CAP 1 po TID x 10 days CEPHALEXIN 85787590992 No Longer Active Jillina Frazell FRANCINE Active CLOBETASOL PROPIONATE 0.05 % CREA apply to hand rash bid CLOBETASOL PROPIONATE 96076827651 Active Gareth Cancino MD Active WELLBUTRIN SR 150 MG ORAL [id number] take 1 tab po BID BUPROPION HCL 15047798239 Active Gareth Cancino MD Active METOPROLOL SUCCINATE 50 MG TB24 1 tablet by mouth daily METOPROLOL SUCCINATE 49980716038 No Longer Active Gareth Cancino MD Active OMEPRAZOLE 20 MG TBEC Take one by mouth daily OMEPRAZOLE 95881511450 No Longer Active Gareth Cancino MD Active OMEPRAZOLE 40 MG CPDR 1 tab po qday for acid reflux. 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 CENTRUM SILVER TABS 1 TAB PO DAILY MULTIPLE VITAMINS-MINERALS 45011726109 Active Gareth Cancino MD Active VITAMIN B12 100 MCG TABS 1 TAB PO DAILY CYANOCOBALAMIN 12843290065 Active Gareth Cancino MD Active CIPRO 500 MG TABS 1 TAB PO BID CIPROFLOXACIN HCL 86251242207 No Longer Active Gareth Cancino MD Active BACTRIM DS 800-160 MG TAB 1 tab by mouth twice daily TRIMETHOPRIM-SULFAMETHOXAZOLE 52127024744 No Longer Active Gareth Cancino MD Active PREDNISONE 20 MG TAB 1 tab po BID for 3 days, then 1 tab po qday for 3 days PREDNISONE 59417047373 No Longer Active Gareth Cancino MD Active FOLIC ACID 800 MCG TABS Take one by mouth daily FOLIC ACID 64516774786 No Longer Active Gareth Cancino MD Active VITAMIN B-6 250 MG TABS Take one by mouth daily PYRIDOXINE HCL 63317737105 No Longer Active Gareth Cancino MD Active B-12 1000 MCG CAPS Take one by mouth daily CYANOCOBALAMIN 46634815503 No Longer Active Gareth Cancino MD Active DOXYCYCLINE HYCLATE 100 MG CAP 1 cap by mouth twice daily DOXYCYCLINE HYCLATE 82457780035 No Longer Active Gareth Cancino MD Active PREDNISONE 20 MG TAB 1 po bid 3 days, then 1 po q day 3 days 2011 PREDNISONE 70981544801 No Longer Active Gareth Cancino MD Active CHANTIX STARTING MONTH RUBEN 0.5 MG X 11 & 1 MG X 42 TABS 0.5mg daily for 3 days , then 0.5mg BID for 4 days, then 1mg BID VARENICLINE TARTRATE 49386295211 No Longer Active Gareth Cancino MD Active ALPRAZOLAM 0.25 MG TAB 1/2 to 1 tablet by mouth qhs prn ALPRAZOLAM 06784128811 Active Gareth Cancino MD Active SIMVASTATIN 40 MG TABS Take one by mouth daily SIMVASTATIN 67314446759 Active Gareth Cancino MD Active TRIAMTERENE-HCTZ 37.5-25 MG CAPS Take one by mouth daily TRIAMTERENE- HCTZ 89696952090 Active Gareth Cancino MD Active CHANTIX STARTING [...] 3 days 2011 PREDNISONE 20 MG TAB 431306 PREDNISONE Inactive DOXYCYCLINE HYCLATE 100 MG CAP 1 cap by mouth twice daily DOXYCYCLINE HYCLATE 100 MG CAP 2168014 DOXYCYCLINE HYCLATE Inactive B-12 1000 MCG CAPS Take one by mouth daily B-12 1000 MCG CAPS CYANOCOBALAMIN Inactive VITAMIN B-6 250 MG TABS Take one by mouth daily VITAMIN B-6 250 MG TABS PYRIDOXINE HCL Inactive FOLIC ACID 800 MCG TABS Take one by mouth daily FOLIC ACID 800 MCG TABS 456248 FOLIC ACID Inactive CIPRO 500 MG TABS 1 TAB PO BID CIPRO 500 MG TABS 974803 CIPROFLOXACIN HCL Inactive OMEPRAZOLE 20 MG TBEC Take one by mouth daily OMEPRAZOLE 20 MG TBEC 936889 OMEPRAZOLE Inactive METOPROLOL SUCCINATE 50 MG TB24 1 tablet by mouth daily METOPROLOL SUCCINATE 50 MG TB24 METOPROLOL SUCCINATE Inactive PREDNISONE 20 MG TAB 1 tab po BID for 3 days, then 1 tab po qday for 3 days PREDNISONE 20 MG TAB 098647 PREDNISONE Inactive BACTRIM DS 800-160 MG TAB 1 tab by mouth twice daily BACTRIM DS 800-160 MG TAB 930654 TRIMETHOPRIM-SULFAMETHOXAZOLE Inactive LEVAQUIN 500 MG TAB 1 tablet by mouth daily LEVAQUIN 500 MG TAB 909526 LEVOFLOXACIN Inactive KEFLEX 500 MG CAP 1 po TID x 10 days KEFLEX 500 MG CAP 764259 CEPHALEXIN Inactive BACTRIM DS 800-160 MG TAB 1 tab by mouth twice daily BACTRIM DS 800-160 MG TAB 032216 TRIMETHOPRIM-SULFAMETHOXAZOLE Inactive Vital Signs Date Name Value [...] ... - Chemistry cholesterol, serum 195 mg/dL 236-720 0057/12/02 triglyceride, serum, fasting 74 mg/dL 30-200 HDL cholesterol, serum 52 mg/dL 32-96 LDL cholesterol, serum 128 mg/dL 0-130 sodium, serum 134 mmol/L 338-849 7624/12/02 carbon dioxide, venous blood 30.3 mmol/L 21.0-32.0 [...] Panel, CBC W/DIFF, MICROALB/CRE ... - Hematology platelet count 277 10^3/MM^3 10*3/mm3 853-293 3904/12/02 leukocyte count, blood 6.2 10^3/MM^3 10*3/mm3 4.6-10.2 [...] blood cell distribution width 13.3 % 11.6-14.8 Lab Report: Lipid Panel, Comp. Metabolic Panel, CBC W/DIFF, MICROALB/CRE ... - Lab microalbumin, urine 10 0-19 Lab Report: UADIP W/MICRO, AUTO - Chemistry RBC, urine, dipstick Negative Negative protein, total urine random Negative mg/dL Negative Lab Report: UADIP W/MICRO, AUTO - Urinalysis pH, urine, semiquantitative 7.5 5.0-8.5 specific gravity, urine 1.010 1.000-1.030 appearance, urine Clear Clear urine color Yellow Colorless;Lightyellow;Straw;Yellow urobilinogen, urine, semiquantitative (dipstick) 0.2 Normal leukocyte esterase, urine, by dipstick Negative Negative nitrite, urine, semiquantitative Negative Negative glucose, urine, semiquantitative Negative Negative ketones, urine, by test strip Negative Negative bilirubin, urine Negative Negative Encounters Code Encounter Date Provider Facility CPT-56211 Level 4 Est. Patient 20:40:10 CDT Gareth Cancino MD [facility] CPT-03219 Level 4 Est. Patient 19:50:11 CDT Gareth Cancino MD [facility] CPT-72364 Level 3 Est. Patient 11:00:13 CDT Gareth Cancino MD [facility] CPT-85399 Level 4 Est. Patient 11:20:21 CDT Gareth Cancino MD [facility] CPT-39699 Level 4 Est. Patient 09:22:18 INDIGO VAT TENDER CLOTH Gareth Cancino MD [facility] CPT-15247 Level 3 Est. Patient 09:48:04 CDT Gareth Cancino MD [facility] CPT-45341 Level 3 Est. Patient 10:13:16 CDT Gareth Cancino MD [facility] CPT-04241 Level 2 Est. Patient 18:36:56 CDT Gareth Cancino MD [facility] CPT-61922 Level 4 Est. Patient 13:50:53 CDT Gareth Cancino MD [facility] CPT-96977 Level 3 Est. Patient 14:58:33 INDIGO VAT TENDER CLOTH Gareth Cancino MD [facility] CPT-28761 Level 4 Est. Patient 09:25:57 CDT Gareth Cancino MD [facility] CPT-21770 Level 3 Est. Patient 20:39:33 CDT Noman Edwards DO [facility] CPT-81310 Level 2 Est. Patient 13:17:39 CDT Gareth Cancino MD [facility] CPT-53932 Level 3 Est. Patient 13:37:20 CDT Gareth Cancino MD [facility] CPT-60563 Level 3 Est. Patient 18:09:08 CDT Gareth Cancino MD [facility] CPT-83705 Level 4 Est. Patient 09:59:07 CDT Gareth Cancino MD [facility] Procedures Code Procedure Name Date Entry Date Standard Description CPT-80892 Punch biopsy 1 lsn 20:40:09 CDT CPT-G0008 Administration of Influenza Virus Vaccine 10:04:48 INDIGO VAT TENDER CLOTH CPT-97619 Fluzone High-Dose Intramuscular Suspension 10:04:48 INDIGO VAT TENDER CLOTH CPT-03340 Ribs unilat w PA chst min 3V 10:45:40 CDT CPT-LR Lesion Removal 13:14:55 CDT CPT-Cryo Cryotherapy 13:14:55 CDT CPT-20466 Venipuncture Draw Fee 10:25:49 CDT CPT-43898 Administration single or combination vaccine inc oral 13 :22:14 INDIGO VAT TENDER CLOTH CPT-08590 Influenza High Dose age 65+ 13:22:14 INDIGO VAT TENDER CLOTH
--- OUTSIDE RECORDS SUMMARY | 2016-12-06 08:19 | XMS REPORT | Clinical Summary ---
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 Unspecified disorder of skin and subcutaneous tissue Folliculitis 704.8 Active Gareth Cancino MD Other specified diseases of hair and hair follicles Low back pain, chronic 724.2 Active Gareth Cancino MD Lumbago Frequency of urination 788.41 Active Negin Garcia NET MANAGER Urinary frequency Actinic keratosis 702.0 Active Gareth [...] hours as needed for bck pain HYDROCODONE-ACETAMINOPHEN 12816645184 No Longer Active Gareth Cancino MD Active FENTANYL 12 MCG/HR PT72 Apply to clean, dry skin and change every 72 hours FENTANYL 09770470783 Active Gareth Cancino MD Active ALPRAZOLAM 0.25 MG TAB 1 tablet by mouth q hs prn ALPRAZOLAM 52340522319 Active Gareth Cancino MD Active AZITHROMYCIN 250 MG ORAL TABS 1 tab daily AZITHROMYCIN 95966381514 No Longer Active Gareth Cancino MD Active ZITHROMAX 250 MG TAB 2 po today, then 1 po q days 2-5 AZITHROMYCIN 57793562635 No Longer Active Tangela Forte Active IPRATROPIUM-ALBUTEROL 0.5-2.5 (3) MG/3ML INH SOLN nebulize 1 vial every 6hrs prn shortness of breath IPRATROPIUM-ALBUTEROL 30050652402 Active Gareth Cancino MD Active FENTANYL 25 MCG/HR PT72 Apply to clean, dry skin and change every 72 hours FENTANYL 04770326190 No Longer Active Gareth Cancino MD Active WELLBUTRIN SR 150 MG ORAL [id number] take 1 tab po BID BUPROPION HCL 85111513926 No Longer Active Gareth Cancino MD Active ZOFRAN 4 MG ORAL TABS 1 by mouth every 6 hours prn nausea ONDANSETRON HCL 28808372692 Active Tangela Forte Active TRAMADOL HCL 50 MG TABS 1 po tid PRN TRAMADOL HCL 95917523507 Active Gareth Cancino MD Active ALPRAZOLAM 0.25 MG TAB 1/2 to 1 tablet by mouth qhs prn ALPRAZOLAM 89634976731 No Longer Active Gareth Cancino MD Active CLOBETASOL PROPIONATE 0.05 % CREA apply to hand rash bid CLOBETASOL PROPIONATE 98690616108 No Longer Active Gareth Cancino MD Active BACTROBAN 2 % CREAM Apply to affected area BID MUPIROCIN CALCIUM 99702194110 No Longer Active Gareth Cancino MD Active LISINOPRIL 20 MG TABS 1 tablet by mouth daily for high blood pressure 10/14 LISINOPRIL 84654972156 Active Gareth Cancino MD Active BACTRIM DS 800-160 MG TAB 1 tab by mouth twice daily TRIMETHOPRIM-SULFAMETHOXAZOLE 20959366111 No Longer Active Gareth Cancino MD Active METOPROLOL SUCCINATE ER 100 MG [id number] 1 pill by mouth daily, for blood pressure METOPROLOL SUCCINATE 06326455803 Active Gareth Cancino MD Active KEFLEX 500 MG CAP 1 po TID x 10 days CEPHALEXIN 73309343979 No Longer Active Blanca Castillo APRN Active METOPROLOL SUCCINATE 50 MG TB24 1 tablet by mouth daily METOPROLOL SUCCINATE 45624045082 No Longer Active Gareth Cancino MD Active OMEPRAZOLE 20 MG TBEC Take one by mouth daily OMEPRAZOLE 94192725815 No Longer Active Gareth Cancino MD Active OMEPRAZOLE 40 MG CPDR 1 tab po qday for acid reflux. OMEPRAZOLE 37801511314 Active Mary Shah APRN Active LEVAQUIN 500 MG TAB 1 tablet by mouth daily LEVOFLOXACIN 39396766728 No Longer Active Gareth Cancino MD Active ALEVE 220 MG TAB 2 tab po qd NAPROXEN SODIUM 57386070812 Active Gareth Cancino MD Active ASPIRIN 81 MG CHEW TAB 1 tablet by mouth daily ASPIRIN 05186573062 Active Gareth Cancino MD Active VENTOLIN HFA 108 (90 BASE) MCG/ACT AERS 1-2 puffs four times a day PRN shortness of breath ALBUTEROL SULFATE 70285122093 Active Mary Shah APRN Active CENTRUM SILVER TABS 1 TAB PO DAILY MULTIPLE VITAMINS-MINERALS 84913135175 Active Gareth Cancino MD Active VITAMIN B12 100 MCG TABS 1 TAB PO DAILY CYANOCOBALAMIN 90934383582 Active Gareth Cancino MD Active CIPRO 500 MG TABS 1 TAB PO BID CIPROFLOXACIN HCL 86837475706 No Longer Active Gareth Cancino MD Active BACTRIM DS 800-160 MG TAB 1 tab by mouth twice daily TRIMETHOPRIM-SULFAMETHOXAZOLE 46389191229 No Longer Active Gareth Cancino MD Active PREDNISONE 20 MG TAB 1 tab po BID for 3 days, then 1 tab po qday for 3 days PREDNISONE 11261808631 No Longer Active Gareth Cancino MD Active FOLIC ACID 800 MCG TABS Take one by mouth daily FOLIC ACID 30968466080 No Longer Active Gareth Cancino MD Active VITAMIN B-6 250 MG TABS Take one by mouth daily PYRIDOXINE HCL 03827085744 No Longer Active Gareth Cancino MD Active B-12 1000 MCG CAPS Take one by mouth daily CYANOCOBALAMIN 24538379603 No Longer Active Gareth Cancino MD Active DOXYCYCLINE HYCLATE 100 MG CAP 1 cap by mouth twice daily DOXYCYCLINE HYCLATE 60381895037 No Longer Active Gareth Cancino MD Active PREDNISONE 20 MG TAB 1 po bid 3 days, then 1 po q day 3 days 2011 PREDNISONE 38892924530 No Longer Active Gareth Cancino MD Active CHANTIX STARTING MONTH RUBEN 0.5 MG X 11 & 1 MG X 42 TABS 0.5mg daily for 3 days , then 0.5mg BID for 4 days, then 1mg BID VARENICLINE TARTRATE 39169117526 No Longer Active Gareth Cancino MD Active SIMVASTATIN 40 MG TABS Take one by mouth daily SIMVASTATIN 11491748726 Active Gareth Cancino MD Active TRIAMTERENE-HCTZ 37.5-25 MG CAPS Take one by mouth daily TRIAMTERENE- HCTZ 39761873827 Active Gareth Cancino MD Active CHANTIX STARTING [...] 3 days 2011 PREDNISONE 20 MG TAB 120419 PREDNISONE Inactive DOXYCYCLINE HYCLATE 100 MG CAP 1 cap by mouth twice daily DOXYCYCLINE HYCLATE 100 MG CAP 1219884 DOXYCYCLINE HYCLATE Inactive B-12 1000 MCG CAPS Take one by mouth daily B-12 1000 MCG CAPS CYANOCOBALAMIN Inactive VITAMIN B-6 250 MG TABS Take one by mouth daily VITAMIN B-6 250 MG TABS PYRIDOXINE HCL Inactive FOLIC ACID 800 MCG TABS Take one by mouth daily FOLIC ACID 800 MCG TABS 894883 FOLIC ACID Inactive CIPRO 500 MG TABS 1 TAB PO BID CIPRO 500 MG TABS 184852 CIPROFLOXACIN HCL Inactive OMEPRAZOLE 20 MG TBEC Take one by mouth daily OMEPRAZOLE 20 MG TBEC 382322 OMEPRAZOLE Inactive METOPROLOL SUCCINATE 50 MG TB24 1 tablet by mouth daily METOPROLOL SUCCINATE 50 MG TB24 METOPROLOL SUCCINATE Inactive BACTROBAN 2 % CREAM Apply to affected area BID BACTROBAN 2 % CREAM 469869 MUPIROCIN CALCIUM Inactive CLOBETASOL PROPIONATE 0.05 % CREA apply to hand rash bid CLOBETASOL PROPIONATE 0.05 % CREA 490200 CLOBETASOL PROPIONATE Inactive ALPRAZOLAM 0.25 MG TAB 1/2 to 1 tablet by mouth qhs prn ALPRAZOLAM 0.25 MG TAB 171777 ALPRAZOLAM Inactive WELLBUTRIN SR 150 MG ORAL [id number] take 1 tab po BID WELLBUTRIN SR 150 MG ORAL [id number] BUPROPION HCL Inactive AZITHROMYCIN 250 MG ORAL TABS 1 tab daily AZITHROMYCIN 250 MG ORAL TABS 5795030 AZITHROMYCIN Inactive HYDROCODONE-ACETAMINOPHEN 5-325 MG TABS 1 tab by mouth every 6 hours as needed for bck pain HYDROCODONE-ACETAMINOPHEN 5-325 MG TABS 046266 HYDROCODONE-ACETAMINOPHEN Inactive PREDNISONE 20 MG TAB 1 tab po BID for 3 days, then 1 tab po qday for 3 days PREDNISONE 20 MG TAB 420678 PREDNISONE Inactive BACTRIM DS 800-160 MG TAB 1 tab by mouth twice daily BACTRIM DS 800-160 MG TAB 159388 TRIMETHOPRIM-SULFAMETHOXAZOLE Inactive LEVAQUIN 500 MG TAB 1 tablet by mouth daily LEVAQUIN 500 MG TAB 792314 LEVOFLOXACIN Inactive KEFLEX 500 MG CAP 1 po TID x 10 days KEFLEX 500 MG CAP 803506 CEPHALEXIN Inactive BACTRIM DS 800-160 MG TAB 1 tab by mouth twice daily BACTRIM DS 800-160 MG TAB 482208 TRIMETHOPRIM-SULFAMETHOXAZOLE Inactive FENTANYL 25 MCG/HR PT72 Apply to clean, dry skin and change every 72 hours FENTANYL 25 MCG/HR PT72 879916 FENTANYL Inactive ZITHROMAX 250 MG TAB 2 po today, then 1 po q days 2-5 ZITHROMAX 250 MG TAB 8466676 AZITHROMYCIN Inactive Vital Signs Date Name Value [...] Panel - Chemistry sodium, serum 133 mmol/L 007-393 4302/08/24 potassium, serum 4.4 mmol/L 3.5-5.2 chloride, serum 95 mmol/L 98-107 carbon dioxide, venous blood 33.0 mmol/L 21.0-32.0 blood glucose 107 mg/dL 65-110 calcium, serum 8.8 mg/dL 8.5-10.1 urea nitrogen, blood 12 mg/dL 7-18 creatinine, serum 0.69 mg/dL 0.55-1.30 Lab Report: CBC, Basic Metabolic Panel - Chemistry sodium, serum 132 mmol/L 989-881 0294/10/12 potassium, serum 4.7 mmol/L 3.5-5.2 chloride, serum [...] CBC - Chemistry sodium, serum 136 mmol/L 638-732 8187/11/01 carbon dioxide, venous blood 32.1 mmol/L 21.0-32.0 [...] ... - Chemistry cholesterol, serum 195 mg/dL 210-758 5779/12/02 triglyceride, serum, fasting 74 mg/dL 30-200 HDL cholesterol, serum 52 mg/dL 32-96 LDL cholesterol, serum 128 mg/dL 0-130 sodium, serum 134 mmol/L 771-698 0908/12/02 carbon dioxide, venous blood 30.3 mmol/L 21.0-32.0 [...] 5.0-8.5 Encounters Code Encounter Date Provider Facility CPT-11202 Level 3 Est. Patient 10:34:55 CDT Gareth Cancino MD [facility]-82099 Level 4 Est. Patient 09:00:18 CDT Gareth Cancino MD [facility]-44129 Level 3 Est. Patient 15:12:03 CDT Gareth Cancino MD [facility]-08573 Level 3 Est. Patient 23:08:20 CDT Gareth Cancino MD [facility]-09355 Level 4 Est. Patient 20:40:10 CDT Gareth Cancino MD [facility] CPT-26979 Level 4 Est. Patient 19:50:11 CDT Gareth Cancino MD [facility] CPT-57575 Level 3 Est. Patient 11:00:13 CDT Gareth Cancino MD [facility] CPT-40607 Level 4 Est. Patient 11:20:21 CDT Gareth Cancino MD [facility] CPT-10317 Level 4 Est. Patient 09:22:18 MEMBER SERVICES COORDINATOR Gareth Cancino MD [facility] CPT-20188 Level 3 Est. Patient 09:48:04 CDT Gareth Cancino MD [facility] CPT-49507 Level 3 Est. Patient 10:13:16 CDT Gareth Cancino MD [facility] CPT-85605 Level 2 Est. Patient 18:36:56 CDT Gareth Cancino MD [facility] CPT-90275 Level 4 Est. Patient 13:50:53 CDT Gareth Cancino MD [facility] CPT-23219 Level 3 Est. Patient 14:58:33 MEMBER SERVICES COORDINATOR Gareth Cancino MD [facility] CPT-89634 Level 4 Est. Patient 09:25:57 CDT Gareth Cancino MD [facility] CPT-07473 Level 3 Est. Patient 20:39:33 CDT Noman Edwards DO [facility] CPT-99681 Level 2 Est. Patient 13:17:39 CDT Gareth Cancino MD [facility] CPT-64988 Level 3 Est. Patient 13:37:20 CDT Gareth Cancino MD [facility] CPT-94620 Level 3 Est. Patient 18:09:08 CDT Gareth Cancino MD [facility] CPT-66875 Level 4 Est. Patient 09:59:07 CDT Gareth Cancino MD [facility] Procedures Code Procedure Name Date Entry Date Standard Description CPT-G0009 Administration of Pneumococcal Vaccine 11:42:53 MEMBER SERVICES COORDINATOR CPT-90550 Prevnar 13 Intramuscular Suspension 11:42:53 MEMBER SERVICES COORDINATOR 01/07 CPT-39527 First Vx - Ix admin for Medicare patients 11:39:44 MEMBER SERVICES COORDINATOR CPT-94894 Fluzone High-Dose Intramuscular Suspension 11:39:44 MEMBER SERVICES COORDINATOR CPT-95429 Prevnar 13 Intramuscular Suspension 09:29:52 MEMBER SERVICES COORDINATOR 01/07 CPT-85460 CMP - LAB USE ONLY 16:31:15 CDT CPT-75280 CBC - LAB USE ONLY 16:31:14 CDT CPT-46819 Venipuncture Draw Fee 16:31:14 CDT CPT-23830 BMP - LAB USE ONLY 14:37:27 CDT CPT-77481 CBC - LAB USE ONLY 14:37:27 CDT CPT-88792 Venipuncture Draw Fee 14:37:27 CDT CPT-TCMM Transitional Care Mgmt-Moderate 14:43:38 CDT CPT-91175 Venipuncture Draw Fee 10:33:47 CDT CPT-52752 BMP - LAB USE ONLY 10:33:46 CDT CPT-Cryo Cryotherapy 15:12:03 CDT CPT-02472 LS spine AP and Lat - XRAY USE ONLY 10:31:51 CDT 07/27 CPT-76709 Punch biopsy 1 lsn 20:40:09 CDT CPT-G0008 Administration of Influenza Virus Vaccine 10:04:48 MEMBER SERVICES COORDINATOR CPT-63164 Fluzone High-Dose Intramuscular Suspension 10:04:48 MEMBER SERVICES COORDINATOR CPT-03574 Ribs unilat w PA chst min 3V 10:45:40 CDT CPT-LR Lesion Removal 13:14:55 CDT CPT-Cryo Cryotherapy 13:14:55 CDT CPT-01642 Venipuncture Draw Fee 10:25:49 CDT CPT-23963 Administration single or combination vaccine inc oral 13 :22:14 MEMBER SERVICES COORDINATOR CPT-00411 Influenza High Dose age 65+ 13:22:14 MEMBER SERVICES COORDINATOR
--- OUTSIDE RECORDS SUMMARY | 2016-12-06 08:20 | XMS REPORT | Clinical Summary ---
Author Author Admin, HILARIA Organization [employer] Address Unknown Phone Unavailable Allergies, Adverse Reactions, [...] Gareth Cancino MD SKIN LESION ICD-709.9 Inactive Garteh Cancino MD CAULIFLOWER EAR ICD-738.7 Inactive Gareth [...] Gareth Cancino MD SEBORRHEIC KERATOSIS ICD-702.19 Inactive Gaerth Cancino MD ACTINIC KERATOSIS, CHEEK, LEFT ICD-702.0 Inactive Gareth Cancino MD Rib pain, left sided ICD-786.50 Inactive Gareth Cnacino MD Bronchitis-Acute ICD-466.0 Inactive Gareth Cancino MD [...] 1/2 tab daily for 4 days PREDNISONE 86583100203 No Longer Active Mary Shah APRN Active LEVAQUIN 500 MG TAB 1 tablet by mouth daily for 7 days LEVOFLOXACIN 16676483367 Active Mary Shah APRN Active AZITHROMYCIN 250 MG TABS 2 po qd x 1 day, then 1 po qd x 4 days AZITHROMYCIN 52139095341 No Longer Active Danuta Modi Active AZITHROMYCIN 250 MG TABS 2 po qd x 1 day, then 1 po qd x 4 days AZITHROMYCIN 38102313041 No Longer Active Tangela Forte Active HYDROCODONE-ACETAMINOPHEN 5-325 MG TABS 1 tab by mouth every 6 hours as needed for bck pain HYDROCODONE-ACETAMINOPHEN 05342868646 No Longer Active Gareth Cancino MD Active FENTANYL 12 MCG/HR PT72 Apply to clean, dry skin and change every 72 hours FENTANYL 08131222984 Active Gareth Cancino MD Active ALPRAZOLAM 0.25 MG TAB 1 tablet by mouth q hs prn ALPRAZOLAM 43656049418 Active Gareth Cancino MD Active AZITHROMYCIN 250 MG ORAL TABS 1 tab daily AZITHROMYCIN 31494526670 No Longer Active Gareth Cancino MD Active ZITHROMAX 250 MG TAB 2 po today, then 1 po q days 2-5 AZITHROMYCIN 46400216936 No Longer Active Tangela Forte Active IPRATROPIUM-ALBUTEROL 0.5-2.5 (3) MG/3ML INH SOLN nebulize 1 vial every 6hrs prn shortness of breath IPRATROPIUM-ALBUTEROL 86296060118 Active Gareth Cancino MD Active FENTANYL 25 MCG/HR PT72 Apply to clean, dry skin and change every 72 hours FENTANYL 08588127016 No Longer Active Gareth Cancino MD Active WELLBUTRIN SR 150 MG ORAL [id number] take 1 tab po BID BUPROPION HCL 73277174128 No Longer Active Gareth Cancino MD Active ZOFRAN 4 MG ORAL TABS 1 by mouth every 6 hours prn nausea ONDANSETRON HCL 75783101075 Active Tangela Forte Active TRAMADOL HCL 50 MG TABS 1 po tid PRN TRAMADOL HCL 90293525628 Active Gareth Cancino MD Active ALPRAZOLAM 0.25 MG TAB 1/2 to 1 tablet by mouth qhs prn ALPRAZOLAM 94472675069 No Longer Active Gareth Cancino MD Active CLOBETASOL PROPIONATE 0.05 % CREA apply to hand rash bid CLOBETASOL PROPIONATE 99289447694 No Longer Active Gareth Cancino MD Active BACTROBAN 2 % CREAM Apply to affected area BID MUPIROCIN CALCIUM 30237985032 No Longer Active Gareth Cancino MD Active LISINOPRIL 20 MG TABS 1 tablet by mouth daily for high blood pressure 10/14 LISINOPRIL 11613039465 Active Mary Sahh APRN Active BACTRIM DS 800-160 MG TAB 1 tab by mouth twice daily TRIMETHOPRIM-SULFAMETHOXAZOLE 68602817869 No Longer Active Gareth Cancino MD Active METOPROLOL SUCCINATE ER 100 MG [id number] 1 pill by mouth daily, for blood pressure METOPROLOL SUCCINATE 09222345073 Active Mary Shah APRN Active KEFLEX 500 MG CAP 1 po TID x 10 days CEPHALEXIN 33929255491 No Longer Active Blanca Castillo APRN Active METOPROLOL SUCCINATE 50 MG TB24 1 tablet by mouth daily METOPROLOL SUCCINATE 23616978022 No Longer Active Gareth Cancino MD Active OMEPRAZOLE 20 MG TBEC Take one by mouth daily OMEPRAZOLE 82729678620 No Longer Active Gareth Cancino MD Active OMEPRAZOLE 40 MG CPDR 1 tab po qday for acid reflux. OMEPRAZOLE 25577148114 Active Mary Shah APRN Active LEVAQUIN 500 MG TAB 1 tablet by mouth daily LEVOFLOXACIN 57899832649 No Longer Active Gareth Cancino MD Active ALEVE 220 MG TAB 2 tab po qd NAPROXEN SODIUM 34125218434 Active Gareth Cancino MD Active ASPIRIN 81 MG CHEW TAB 1 tablet by mouth daily ASPIRIN 30257868257 Active Gareth Cancino MD Active VENTOLIN HFA 108 (90 BASE) MCG/ACT AERS 1-2 puffs four times a day PRN shortness of breath ALBUTEROL SULFATE 02995922554 Active Mary Shah CLAY MINER Active CENTRUM SILVER TABS 1 TAB PO DAILY MULTIPLE VITAMINS-MINERALS 25445961491 Active Gareth Cancino MD Active VITAMIN B12 100 MCG TABS 1 TAB PO DAILY CYANOCOBALAMIN 00466147767 Active Gareth Cancino MD Active CIPRO 500 MG TABS 1 TAB PO BID CIPROFLOXACIN HCL 75439651766 No Longer Active Gareth Cancino MD Active BACTRIM DS 800-160 MG TAB 1 tab by mouth twice daily TRIMETHOPRIM-SULFAMETHOXAZOLE 24582524651 No Longer Active Gareth Cancino MD Active PREDNISONE 20 MG TAB 1 tab po BID for 3 days, then 1 tab po qday for 3 days PREDNISONE 32213212975 No Longer Active Gareth Cancino MD Active FOLIC ACID 800 MCG TABS Take one by mouth daily FOLIC ACID 46975459877 No Longer Active Gareth Cancino MD Active VITAMIN B-6 250 MG TABS Take one by mouth daily PYRIDOXINE HCL 68525099405 No Longer Active Gareth Cancino MD Active B-12 1000 MCG CAPS Take one by mouth daily CYANOCOBALAMIN 40886611787 No Longer Active Gareth Cancino MD Active DOXYCYCLINE HYCLATE 100 MG CAP 1 cap by mouth twice daily DOXYCYCLINE HYCLATE 90082093594 No Longer Active Gareth Cancino MD Active PREDNISONE 20 MG TAB 1 po bid 3 days, then 1 po q day 3 days 2011 PREDNISONE 00416972402 No Longer Active Gareth Cancino MD Active CHANTIX STARTING MONTH RUBEN 0.5 MG X 11 & 1 MG X 42 TABS 0.5mg daily for 3 days , then 0.5mg BID for 4 days, then 1mg BID VARENICLINE TARTRATE 70227346098 No Longer Active Gareth Cancino MD Active SIMVASTATIN 40 MG TABS Take one by mouth daily SIMVASTATIN 00524414574 Active Gareth Cancino MD Active TRIAMTERENE-HCTZ 37.5-25 MG CAPS Take one by mouth daily TRIAMTERENE- HCTZ 52176148201 Active Gareth Cancino MD Active CHANTIX STARTING [...] 3 days 2011 PREDNISONE 20 MG TAB 837925 PREDNISONE Inactive DOXYCYCLINE HYCLATE 100 MG CAP 1 cap by mouth twice daily DOXYCYCLINE HYCLATE 100 MG CAP 0534791 DOXYCYCLINE HYCLATE Inactive B-12 1000 MCG CAPS Take one by mouth daily B-12 1000 MCG CAPS CYANOCOBALAMIN Inactive VITAMIN B-6 250 MG TABS Take one by mouth daily VITAMIN B-6 250 MG TABS PYRIDOXINE HCL Inactive FOLIC ACID 800 MCG TABS Take one by mouth daily FOLIC ACID 800 MCG TABS 154770 FOLIC ACID Inactive CIPRO 500 MG TABS 1 TAB PO BID CIPRO 500 MG TABS 013405 CIPROFLOXACIN HCL Inactive OMEPRAZOLE 20 MG TBEC Take one by mouth daily OMEPRAZOLE 20 MG TBEC 176391 OMEPRAZOLE Inactive METOPROLOL SUCCINATE 50 MG TB24 1 tablet by mouth daily METOPROLOL SUCCINATE 50 MG TB24 METOPROLOL SUCCINATE Inactive BACTROBAN 2 % CREAM Apply to affected area BID BACTROBAN 2 % CREAM 044144 MUPIROCIN CALCIUM Inactive CLOBETASOL PROPIONATE 0.05 % CREA apply to hand rash bid CLOBETASOL PROPIONATE 0.05 % CREA 219846 CLOBETASOL PROPIONATE Inactive ALPRAZOLAM 0.25 MG TAB 1/2 to 1 tablet by mouth qhs prn ALPRAZOLAM 0.25 MG TAB 921439 ALPRAZOLAM Inactive WELLBUTRIN SR 150 MG ORAL [id number] take 1 tab po BID WELLBUTRIN SR 150 MG ORAL [id number] BUPROPION HCL Inactive AZITHROMYCIN 250 MG ORAL TABS 1 tab daily AZITHROMYCIN 250 MG ORAL TABS 2308609 AZITHROMYCIN Inactive HYDROCODONE-ACETAMINOPHEN 5-325 MG TABS 1 tab by mouth every 6 hours as needed for bck pain HYDROCODONE-ACETAMINOPHEN 5-325 MG TABS 502202 HYDROCODONE-ACETAMINOPHEN Inactive PREDNISONE 20 MG TAB 1 tab po BID for 3 days, then 1 tab po qday for 3 days PREDNISONE 20 MG TAB 718418 PREDNISONE Inactive BACTRIM DS 800-160 MG TAB 1 tab by mouth twice daily BACTRIM DS 800-160 MG TAB 198797 TRIMETHOPRIM-SULFAMETHOXAZOLE Inactive LEVAQUIN 500 MG TAB 1 tablet by mouth daily LEVAQUIN 500 MG TAB 572915 LEVOFLOXACIN Inactive KEFLEX 500 MG CAP 1 po TID x 10 days KEFLEX 500 MG CAP 902365 CEPHALEXIN Inactive BACTRIM DS 800-160 MG TAB 1 tab by mouth twice daily BACTRIM DS 800-160 MG TAB 19820425 TRIMETHOPRIM-SULFAMETHOXAZOLE Inactive FENTANYL 25 MCG/HR PT72 Apply to clean, dry skin and change every 72 hours FENTANYL 25 MCG/HR PT72 002526 FENTANYL Inactive ZITHROMAX 250 MG TAB 2 po today, then 1 po q days 2-5 ZITHROMAX 250 MG TAB 1793404 AZITHROMYCIN Inactive AZITHROMYCIN 250 MG TABS 2 po qd x 1 day, then 1 po qd x 4 days AZITHROMYCIN 250 MG TABS 4576674 AZITHROMYCIN Inactive AZITHROMYCIN 250 MG TABS 2 po qd x 1 day, then 1 po qd x 4 days AZITHROMYCIN 250 MG TABS 5078603 AZITHROMYCIN Inactive PREDNISONE 20 MG TAB take 3 tabs daily for 3 days, 2 tabs daily for 3 days, 1 tab daily for 3 days, 1/2 tab daily for 4 days PREDNISONE 20 MG TAB 410645 PREDNISONE Inactive Vital Signs Date Name Value [...] Panel - Chemistry sodium, serum 133 mmol/L 774-225 9660/08/24 potassium, serum 4.4 mmol/L 3.5-5.2 chloride, serum 95 mmol/L 98-107 carbon dioxide, venous blood 33.0 mmol/L 21.0-32.0 blood glucose 107 mg/dL 65-110 calcium, serum 8.8 mg/dL 8.5-10.1 urea nitrogen, blood 12 mg/dL 7-18 creatinine, serum 0.69 mg/dL 0.55-1.30 Lab Report: CBC, Basic Metabolic Panel - Chemistry sodium, serum 132 mmol/L 163-315 4532/10/12 potassium, serum 4.7 mmol/L 3.5-5.2 chloride, serum [...] CBC - Chemistry sodium, serum 136 mmol/L 015-473 9154/11/01 carbon dioxide, venous blood 32.1 mmol/L 21.0-32.0 [...] Negative Encounters Code Encounter Date Provider Facility CPT-19947 Level 3 Est. Patient 09:05:25 ASTROBIOLOGIST Mary Shah APRN [facility] CPT-83977 Level 3 Est. Patient 20:53:25 ASTROBIOLOGIST Gareth Cancino MD [facility] CPT-27434 Level 3 Est. Patient 10:34:55 CDT Gareth Cancino MD [facility] CPT-41540 Level 4 Est. Patient 09:00:18 CDT Gareth Cancino MD [facility] CPT-45610 Level 3 Est. Patient 15:12:03 CDT Gareth Cancino MD [facility] CPT-52641 Level 3 Est. Patient 23:08:20 CDT Gareth Cancino MD [facility] CPT-58671 Level 4 Est. Patient 20:40:10 CDT Gareth Cancino MD [facility] CPT-43006 Level 4 Est. Patient 19:50:11 CDT Gareth Cancino MD [facility] CPT-25574 Level 3 Est. Patient 11:00:13 CDT Gareth Cancino MD [facility] CPT-61934 Level 4 Est. Patient 11:20:21 CDT Gareth Cancino MD [facility]-83440 Level 4 Est. Patient 09:22:18 ASTROBIOLOGIST Gareth Cancino MD [facility] CPT-76049 Level 3 Est. Patient 09:48:04 CDT Gareth Cancino MD [facility] CPT-96033 Level 3 Est. Patient 10:13:16 CDT Gareth Cancino MD [facility] CPT-83849 Level 2 Est. Patient 18:36:56 CDT Gareth Cancino MD [facility] CPT-55490 Level 4 Est. Patient 13:50:53 CDT Gareth Cancino MD [facility] CPT-59150 Level 3 Est. Patient 14:58:33 ASTROBIOLOGIST Gareth Cancino MD [facility] CPT-92500 Level 4 Est. Patient 09:25:57 CDT Gareth Cancino MD [facility] CPT-24085 Level 3 Est. Patient 20:39:33 CDT Noman Edwards DO [facility] CPT-05546 Level 2 Est. Patient 13:17:39 CDT Gareth Cancino MD [facility] CPT-48517 Level 3 Est. Patient 13:37:20 CDT Gareth Cancino MD [facility] CPT-89366 Level 3 Est. Patient 18:09:08 CDT Gareth Cancino MD [facility] CPT-14882 Level 4 Est. Patient 09:59:07 CDT Gareth Cancino MD [facility] Procedures Code Procedure Name Date Entry Date Standard Description CPT-000 Give Appropriate Flu Vaccine 09:29:52 ASTROBIOLOGIST CPT-000 Give Appropriate Flu Vaccine 09:22:20 ASTROBIOLOGIST CPT-16342 TSH - LAB USE ONLY 08:11:40 ASTROBIOLOGIST CPT-17457 Free T4 - LAB USE ONLY 08:11:40 ASTROBIOLOGIST CPT-15272 Venipuncture Draw Fee 08:11:40 ASTROBIOLOGIST CPT-68118 UA w micro - LAB USE ONLY 14:26:22 ASTROBIOLOGIST CPT-G0438 Initial Annual Wellness Exam 20:53:25 ASTROBIOLOGIST CPT-G0009 Administration of Pneumococcal Vaccine 11:42:53 ASTROBIOLOGIST CPT-49905 Prevnar 13 Intramuscular Suspension 11:42:53 ASTROBIOLOGIST 01/07 CPT-56615 First Vx - Ix admin for Medicare patients 11:39:44 ASTROBIOLOGIST CPT-66796 Fluzone High-Dose Intramuscular Suspension 11:39:44 ASTROBIOLOGIST CPT-31710 Prevnar 13 Intramuscular Suspension 09:29:52 ASTROBIOLOGIST 01/07 CPT-35027 CMP - LAB USE ONLY 16:31:15 CDT CPT-80348 CBC - LAB USE ONLY 16:31:14 CDT CPT-72468 Venipuncture Draw Fee 16:31:14 CDT CPT-65659 BMP - LAB USE ONLY 14:37:27 CDT CPT-81357 CBC - LAB USE ONLY 14:37:27 CDT CPT-52352 Venipuncture Draw Fee 14:37:27 CDT CPT-TCMM Transitional Care Mgmt-Moderate 14:43:38 CDT CPT-54337 Venipuncture Draw Fee 10:33:47 CDT CPT-52153 BMP - LAB USE ONLY 10:33:46 CDT CPT-Cryo Cryotherapy 15:12:03 CDT CPT-97772 LS spine AP and Lat - XRAY USE ONLY 10:31:51 CDT 07/27 CPT-31268 Punch biopsy 1 lsn 20:40:09 CDT CPT-G0008 Administration of Influenza Virus Vaccine 10:04:48 ASTROBIOLOGIST CPT-11590 Fluzone High-Dose Intramuscular Suspension 10:04:48 ASTROBIOLOGIST CPT-49630 Ribs unilat w PA chst min 3V 10:45:40 CDT CPT-LR Lesion Removal 13:14:55 CDT CPT-Cryo Cryotherapy 13:14:55 CDT CPT-93660 Venipuncture Draw Fee 10:25:49 CDT CPT-79784 Administration single or combination vaccine inc oral 13 :22:14 ASTROBIOLOGIST CPT-53932 Influenza High Dose age 65+ 13:22:14 ASTROBIOLOGIST
--- OUTSIDE RECORDS SUMMARY | 2016-12-06 08:21 | XMS REPORT | Clinical Summary ---
Author Author Admin, Leon Organization [employer] Address Unknown Phone Unavailable Allergies, Adverse Reactions, Alerts Allergy Name Reaction Description Start Date Severity Status Provider No Known Allergies Tangela Raida Conditions or Problems Problem Name Problem Code Onset Date Status Entry Date Provider Comment Standard Description Annotate HYPERTENSION 401.9 Active Gareth Cnacino MD Unspecified essential hypertension HYPERCHOLESTEROLEMIA, PURE 272.0 [...] cause Skin lesion 709.9 Active Blanca Castillo MORTGAGE PROCESSOR Unspecified disorder of skin and subcutaneous tissue Folliculitis 704.8 Active Gareth Cancino MD Other specified diseases of hair and hair follicles Low back pain, chronic 724.2 Active Gareth Cancino MD Lumbago Frequency of urination 788.41 Active Negin Garcia LPN Urinary frequency Bronchitis-Acute ICD-466.0 Inactive Gareth Cancino MD Medication List Medication Instructions Start Date Stop Date Generic Name [facility] Status Provider Patient Instruction ALPRAZOLAM 0.25 MG TAB 1/2 to 1 tablet by mouth qhs prn ALPRAZOLAM 26989672125 No Longer Active Gareth Cancino MD Active CLOBETASOL PROPIONATE 0.05 % CREA apply to hand rash bid CLOBETASOL PROPIONATE 55495603040 No Longer Active Gareth Cancino MD Active BACTROBAN 2 % CREAM Apply to affected area BID MUPIROCIN CALCIUM 99761337655 No Longer Active Gareth Cancino MD Active LISINOPRIL 20 MG TABS 1 tablet by mouth daily for high blood pressure 10/14 LISINOPRIL 29379412158 Active Gareth Cancino MD Active BACTRIM DS 800-160 MG TAB 1 tab by mouth twice daily TRIMETHOPRIM-SULFAMETHOXAZOLE 07078673441 No Longer Active Gareth Cancino MD Active METOPROLOL SUCCINATE ER 100 MG [id number] 1 pill by mouth daily, for blood pressure METOPROLOL SUCCINATE 33396381723 Active Gareth Cancino MD Active KEFLEX 500 MG CAP 1 po TID x 10 days CEPHALEXIN 29597690728 No Longer Active Blanca Castillo APRN Active WELLBUTRIN SR 150 MG ORAL [id number] take 1 tab po BID BUPROPION HCL 05700267465 Active Gareth Cancino MD Active METOPROLOL SUCCINATE 50 MG TB24 1 tablet by mouth daily METOPROLOL SUCCINATE 26165038075 No Longer Active Gareth Cancino MD Active OMEPRAZOLE 20 MG TBEC Take one by mouth daily OMEPRAZOLE 56513025484 No Longer Active Gareth Cancino MD Active OMEPRAZOLE 40 MG CPDR 1 tab po qday for acid reflux. OMEPRAZOLE 86861753302 Active Mary Shah APRN Active LEVAQUIN 500 MG TAB 1 tablet by mouth daily LEVOFLOXACIN 25446432356 No Longer Active Gareth Cancino MD Active ALEVE 220 MG TAB 2 tab po qd NAPROXEN SODIUM 10437726201 Active Gareth Cancino MD Active ASPIRIN 81 MG CHEW TAB 1 tablet by mouth daily ASPIRIN 66331643781 Active Gareth Cancino MD Active VENTOLIN HFA 108 (90 BASE) MCG/ACT AERS 1-2 puffs four times a day PRN shortness of breath ALBUTEROL SULFATE 83918042988 Active Mary Shah MORTGAGE PROCESSOR Active CENTRUM SILVER TABS 1 TAB PO DAILY MULTIPLE VITAMINS-MINERALS 32580761612 Active Gareth Cancino MD Active VITAMIN B12 100 MCG TABS 1 TAB PO DAILY CYANOCOBALAMIN 46423837677 Active Gareth Cancino MD Active CIPRO 500 MG TABS 1 TAB PO BID CIPROFLOXACIN HCL 25062365450 No Longer Active Gareth Cancino MD Active BACTRIM DS 800-160 MG TAB 1 tab by mouth twice daily TRIMETHOPRIM-SULFAMETHOXAZOLE 77530831582 No Longer Active Gareth Cancino MD Active PREDNISONE 20 MG TAB 1 tab po BID for 3 days, then 1 tab po qday for 3 days PREDNISONE 59098625592 No Longer Active Gareth Cancino MD Active FOLIC ACID 800 MCG TABS Take one by mouth daily FOLIC ACID 06801553116 No Longer Active Gareth Cancino MD Active VITAMIN B-6 250 MG TABS Take one by mouth daily PYRIDOXINE HCL 59237492227 No Longer Active Gareth Cancino MD Active B-12 1000 MCG CAPS Take one by mouth daily CYANOCOBALAMIN 26891363904 No Longer Active Gareth Cancino MD Active DOXYCYCLINE HYCLATE 100 MG CAP 1 cap by mouth twice daily DOXYCYCLINE HYCLATE 32331606375 No Longer Active Gareth Cancino MD Active PREDNISONE 20 MG TAB 1 po bid 3 days, then 1 po q day 3 days 2011 PREDNISONE 32271618068 No Longer Active Gareth Cancino MD Active CHANTIX STARTING MONTH RUBEN 0.5 MG X 11 & 1 MG X 42 TABS 0.5mg daily for 3 days , then 0.5mg BID for 4 days, then 1mg BID VARENICLINE TARTRATE 36054362855 No Longer Active Gareth Cancino MD Active SIMVASTATIN 40 MG TABS Take one by mouth daily SIMVASTATIN 79204177656 Active Gareth Cancino MD Active TRIAMTERENE-HCTZ 37.5-25 MG CAPS Take one by mouth daily TRIAMTERENE- HCTZ 85963345560 Active Gareth Cancino MD Active CHANTIX STARTING [...] 3 days 2011 PREDNISONE 20 MG TAB 549024 PREDNISONE Inactive DOXYCYCLINE HYCLATE 100 MG CAP 1 cap by mouth twice daily DOXYCYCLINE HYCLATE 100 MG CAP 8128937 DOXYCYCLINE HYCLATE Inactive B-12 1000 MCG CAPS Take one by mouth daily B-12 1000 MCG CAPS CYANOCOBALAMIN Inactive VITAMIN B-6 250 MG TABS Take one by mouth daily VITAMIN B-6 250 MG TABS PYRIDOXINE HCL Inactive FOLIC ACID 800 MCG TABS Take one by mouth daily FOLIC ACID 800 MCG TABS 998893 FOLIC ACID Inactive CIPRO 500 MG TABS 1 TAB PO BID CIPRO 500 MG TABS 730220 CIPROFLOXACIN HCL Inactive OMEPRAZOLE 20 MG TBEC Take one by mouth daily OMEPRAZOLE 20 MG TBEC 611842 OMEPRAZOLE Inactive METOPROLOL SUCCINATE 50 MG TB24 1 tablet by mouth daily METOPROLOL SUCCINATE 50 MG TB24 METOPROLOL SUCCINATE Inactive BACTROBAN 2 % CREAM Apply to affected area BID BACTROBAN 2 % CREAM 080840 MUPIROCIN CALCIUM Inactive CLOBETASOL PROPIONATE 0.05 % CREA apply to hand rash bid CLOBETASOL PROPIONATE 0.05 % CREA 055042 CLOBETASOL PROPIONATE Inactive ALPRAZOLAM 0.25 MG TAB 1/2 to 1 tablet by mouth qhs prn ALPRAZOLAM 0.25 MG TAB 249881 ALPRAZOLAM Inactive PREDNISONE 20 MG TAB 1 tab po BID for 3 days, then 1 tab po qday for 3 days PREDNISONE 20 MG TAB 947833 PREDNISONE Inactive BACTRIM DS 800-160 MG TAB 1 tab by mouth twice daily BACTRIM DS 800-160 MG TAB 862471 TRIMETHOPRIM-SULFAMETHOXAZOLE Inactive LEVAQUIN 500 MG TAB 1 tablet by mouth daily LEVAQUIN 500 MG TAB 856365 LEVOFLOXACIN Inactive KEFLEX 500 MG CAP 1 po TID x 10 days KEFLEX 500 MG CAP 995226 CEPHALEXIN Inactive BACTRIM DS 800-160 MG TAB 1 tab by mouth twice daily BACTRIM DS 800-160 MG TAB 565583 TRIMETHOPRIM-SULFAMETHOXAZOLE Inactive Vital Signs Date Name Value [...] ... - Chemistry cholesterol, serum 195 mg/dL 110-381 5231/12/02 triglyceride, serum, fasting 74 mg/dL 30-200 HDL cholesterol, serum 52 mg/dL 32-96 LDL cholesterol, serum 128 mg/dL 0-130 sodium, serum 134 mmol/L 737-552 2311/12/02 carbon dioxide, venous blood 30.3 mmol/L 21.0-32.0 [...] 0-19 Encounters Code Encounter Date Provider Facility CPT-85621 Level 3 Est. Patient 23:08:20 CDT Gareth Cancino MD [facility] CPT-85277 Level 4 Est. Patient 20:40:10 CDT Gareth Cancino MD [facility] CPT-68678 Level 4 Est. Patient 19:50:11 CDT Gareth Cancino MD [facility] CPT-65076 Level 3 Est. Patient 11:00:13 CDT Gareth Cancino MD [facility]-01121 Level 4 Est. Patient 11:20:21 CDT Gareth Cancino MD [facility] CPT-33996 Level 4 Est. Patient 09:22:18 INJECTION SPECIALIST Gareth Cancino MD [facility] CPT-25420 Level 3 Est. Patient 09:48:04 CDT Gareth Cancino MD [facility] CPT-35467 Level 3 Est. Patient 10:13:16 CDT Gareth Cancino MD [facility]-61998 Level 2 Est. Patient 18:36:56 CDT Gareth Cancino MD [facility]-02432 Level 4 Est. Patient 13:50:53 CDT Gareth Cancino MD [facility] CPT-01965 Level 3 Est. Patient 14:58:33 INJECTION SPECIALIST Gareth Cancino MD [facility] CPT-18752 Level 4 Est. Patient 09:25:57 CDT Gareth Cancino MD [facility] CPT-90172 Level 3 Est. Patient 20:39:33 CDT Noman Edwards DO [facility] CPT-07555 Level 2 Est. Patient 13:17:39 CDT Gareth Cancino MD [facility] CPT-70972 Level 3 Est. Patient 13:37:20 CDT Gareth Cancino MD [facility]-68708 Level 3 Est. Patient 18:09:08 CDT Gareth Cancino MD [facility]-68648 Level 4 Est. Patient 09:59:07 CDT Gareth Cancino MD [facility] Procedures Code Procedure Name Date Entry Date Standard Description CPT-83348 LS spine AP and Lat - XRAY USE ONLY 10:31:51 CDT 07/27 CPT-19616 Punch biopsy 1 lsn 20:40:09 CDT CPT-G0008 Administration of Influenza Virus Vaccine 10:04:48 INJECTION SPECIALIST CPT-67922 Fluzone High-Dose Intramuscular Suspension 10:04:48 INJECTION SPECIALIST CPT-80145 Ribs unilat w PA chst min 3V 10:45:40 CDT CPT-LR Lesion Removal 13:14:55 CDT CPT-Cryo Cryotherapy 13:14:55 CDT CPT-48985 Venipuncture Draw Fee 10:25:49 CDT CPT-14532 Administration single or combination vaccine inc oral 13 :22:14 INJECTION SPECIALIST CPT-18444 Influenza High Dose age 65+ 13:22:14 INJECTION SPECIALIST
--- OUTSIDE RECORDS SUMMARY | 2016-12-06 08:21 | XMS REPORT | Clinical Summary ---
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 Urinary frequency Actinic keratosis 702.0 Active Gareth [...] hours as needed for bck pain HYDROCODONE-ACETAMINOPHEN 65296283447 No Longer Active Gareth Cancino MD Active FENTANYL 12 MCG/HR PT72 Apply to clean, dry skin and change every 72 hours FENTANYL 95577038783 Active Gareth Cancino MD Active ALPRAZOLAM 0.25 MG TAB 1 tablet by mouth q hs prn ALPRAZOLAM 55444036230 Active Gareth Cancino MD Active AZITHROMYCIN 250 MG ORAL TABS 1 tab daily AZITHROMYCIN 48283143408 No Longer Active Gareth Cancino MD Active ZITHROMAX 250 MG TAB 2 po today, then 1 po q days 2-5 AZITHROMYCIN 86117494435 No Longer Active Tangela Forte Active IPRATROPIUM-ALBUTEROL 0.5-2.5 (3) MG/3ML INH SOLN nebulize 1 vial every 6hrs prn shortness of breath IPRATROPIUM-ALBUTEROL 49219574651 Active Gareth Cancino MD Active FENTANYL 25 MCG/HR PT72 Apply to clean, dry skin and change every 72 hours FENTANYL 52824794637 No Longer Active Gareth Cancino MD Active WELLBUTRIN SR 150 MG ORAL [id number] take 1 tab po BID BUPROPION HCL 64317133159 No Longer Active Gareth Cancino MD Active ZOFRAN 4 MG ORAL TABS 1 by mouth every 6 hours prn nausea ONDANSETRON HCL 02291484191 Active Tangela Forte Active TRAMADOL HCL 50 MG TABS 1 po tid PRN TRAMADOL HCL 05608818868 Active Gareth Cancino MD Active ALPRAZOLAM 0.25 MG TAB 1/2 to 1 tablet by mouth qhs prn ALPRAZOLAM 95765488530 No Longer Active Gareth Cancino MD Active CLOBETASOL PROPIONATE 0.05 % CREA apply to hand rash bid CLOBETASOL PROPIONATE 34878275939 No Longer Active Gareth Cancino MD Active BACTROBAN 2 % CREAM Apply to affected area BID MUPIROCIN CALCIUM 21830258618 No Longer Active Gareth Cancino MD Active LISINOPRIL 20 MG TABS 1 tablet by mouth daily for high blood pressure 10/14 LISINOPRIL 61288832257 Active Gareth Cancino MD Active BACTRIM DS 800-160 MG TAB 1 tab by mouth twice daily TRIMETHOPRIM-SULFAMETHOXAZOLE 91787837296 No Longer Active Gareth Cancino MD Active METOPROLOL SUCCINATE ER 100 MG [id number] 1 pill by mouth daily, for blood pressure METOPROLOL SUCCINATE 39393289726 Active Gareth Cancino MD Active KEFLEX 500 MG CAP 1 po TID x 10 days CEPHALEXIN 38774713813 No Longer Active Blanca Castillo APRN Active METOPROLOL SUCCINATE 50 MG TB24 1 tablet by mouth daily METOPROLOL SUCCINATE 26342160486 No Longer Active Gareth Cancino MD Active OMEPRAZOLE 20 MG TBEC Take one by mouth daily OMEPRAZOLE 65841253179 No Longer Active Gareth Cancino MD Active OMEPRAZOLE 40 MG CPDR 1 tab po qday for acid reflux. OMEPRAZOLE 45983361016 Active Mary Shah APRN Active LEVAQUIN 500 MG TAB 1 tablet by mouth daily LEVOFLOXACIN 88457549572 No Longer Active Gareth Cancino MD Active ALEVE 220 MG TAB 2 tab po qd NAPROXEN SODIUM 82691510836 Active Gareth Cancino MD Active ASPIRIN 81 MG CHEW TAB 1 tablet by mouth daily ASPIRIN 69500882668 Active Gareth Cancino MD Active VENTOLIN HFA 108 (90 BASE) MCG/ACT AERS 1-2 puffs four times a day PRN shortness of breath ALBUTEROL SULFATE 18373657023 Active Mary Shah APRN Active CENTRUM SILVER TABS 1 TAB PO DAILY MULTIPLE VITAMINS-MINERALS 60026368174 Active Gareth Cancino MD Active VITAMIN B12 100 MCG TABS 1 TAB PO DAILY CYANOCOBALAMIN 98293399681 Active Gareth Cancino MD Active CIPRO 500 MG TABS 1 TAB PO BID CIPROFLOXACIN HCL 85876025647 No Longer Active Gareth Cancino MD Active BACTRIM DS 800-160 MG TAB 1 tab by mouth twice daily TRIMETHOPRIM-SULFAMETHOXAZOLE 50327972899 No Longer Active Gareth Cancino MD Active PREDNISONE 20 MG TAB 1 tab po BID for 3 days, then 1 tab po qday for 3 days PREDNISONE 43572358230 No Longer Active Gareth Cancino MD Active FOLIC ACID 800 MCG TABS Take one by mouth daily FOLIC ACID 80727850624 No Longer Active Gareth Cancino MD Active VITAMIN B-6 250 MG TABS Take one by mouth daily PYRIDOXINE HCL 66784818049 No Longer Active Gareth Cancino MD Active B-12 1000 MCG CAPS Take one by mouth daily CYANOCOBALAMIN 51068312956 No Longer Active Gareth Cancino MD Active DOXYCYCLINE HYCLATE 100 MG CAP 1 cap by mouth twice daily DOXYCYCLINE HYCLATE 00412436922 No Longer Active Gareth Cancino MD Active PREDNISONE 20 MG TAB 1 po bid 3 days, then 1 po q day 3 days 2011 PREDNISONE 21970101172 No Longer Active Gareth Cancino MD Active CHANTIX STARTING MONTH RUBEN 0.5 MG X 11 & 1 MG X 42 TABS 0.5mg daily for 3 days , then 0.5mg BID for 4 days, then 1mg BID VARENICLINE TARTRATE 44994567956 No Longer Active Gareth Cancino MD Active SIMVASTATIN 40 MG TABS Take one by mouth daily SIMVASTATIN 78593725092 Active Gareth Cancino MD Active TRIAMTERENE-HCTZ 37.5-25 MG CAPS Take one by mouth daily TRIAMTERENE- HCTZ 03336701061 Active Gareth Cancino MD Active CHANTIX STARTING [...] 3 days 2011 PREDNISONE 20 MG TAB 577877 PREDNISONE Inactive DOXYCYCLINE HYCLATE 100 MG CAP 1 cap by mouth twice daily DOXYCYCLINE HYCLATE 100 MG CAP 5149847 DOXYCYCLINE HYCLATE Inactive B-12 1000 MCG CAPS Take one by mouth daily B-12 1000 MCG CAPS CYANOCOBALAMIN Inactive VITAMIN B-6 250 MG TABS Take one by mouth daily VITAMIN B-6 250 MG TABS PYRIDOXINE HCL Inactive FOLIC ACID 800 MCG TABS Take one by mouth daily FOLIC ACID 800 MCG TABS 362244 FOLIC ACID Inactive CIPRO 500 MG TABS 1 TAB PO BID CIPRO 500 MG TABS 305059 CIPROFLOXACIN HCL Inactive OMEPRAZOLE 20 MG TBEC Take one by mouth daily OMEPRAZOLE 20 MG TBEC 805362 OMEPRAZOLE Inactive METOPROLOL SUCCINATE 50 MG TB24 1 tablet by mouth daily METOPROLOL SUCCINATE 50 MG TB24 METOPROLOL SUCCINATE Inactive BACTROBAN 2 % CREAM Apply to affected area BID BACTROBAN 2 % CREAM 405083 MUPIROCIN CALCIUM Inactive CLOBETASOL PROPIONATE 0.05 % CREA apply to hand rash bid CLOBETASOL PROPIONATE 0.05 % CREA 108077 CLOBETASOL PROPIONATE Inactive ALPRAZOLAM 0.25 MG TAB 1/2 to 1 tablet by mouth qhs prn ALPRAZOLAM 0.25 MG TAB 065286 ALPRAZOLAM Inactive WELLBUTRIN SR 150 MG ORAL [id number] take 1 tab po BID WELLBUTRIN SR 150 MG ORAL [id number] BUPROPION HCL Inactive AZITHROMYCIN 250 MG ORAL TABS 1 tab daily AZITHROMYCIN 250 MG ORAL TABS 2661330 AZITHROMYCIN Inactive HYDROCODONE-ACETAMINOPHEN 5-325 MG TABS 1 tab by mouth every 6 hours as needed for bck pain HYDROCODONE-ACETAMINOPHEN 5-325 MG TABS 522120 HYDROCODONE-ACETAMINOPHEN Inactive PREDNISONE 20 MG TAB 1 tab po BID for 3 days, then 1 tab po qday for 3 days PREDNISONE 20 MG TAB 330114 PREDNISONE Inactive BACTRIM DS 800-160 MG TAB 1 tab by mouth twice daily BACTRIM DS 800-160 MG TAB 404468 TRIMETHOPRIM-SULFAMETHOXAZOLE Inactive LEVAQUIN 500 MG TAB 1 tablet by mouth daily LEVAQUIN 500 MG TAB 205154 LEVOFLOXACIN Inactive KEFLEX 500 MG CAP 1 po TID x 10 days KEFLEX 500 MG CAP 246113 CEPHALEXIN Inactive BACTRIM DS 800-160 MG TAB 1 tab by mouth twice daily BACTRIM DS 800-160 MG TAB 491567 TRIMETHOPRIM-SULFAMETHOXAZOLE Inactive FENTANYL 25 MCG/HR PT72 Apply to clean, dry skin and change every 72 hours FENTANYL 25 MCG/HR PT72 279387 FENTANYL Inactive ZITHROMAX 250 MG TAB 2 po today, then 1 po q days 2-5 ZITHROMAX 250 MG TAB 4890529 AZITHROMYCIN Inactive Vital Signs Date Name Value [...] Panel - Chemistry sodium, serum 133 mmol/L 271-263 6750/08/24 potassium, serum 4.4 mmol/L 3.5-5.2 chloride, serum 95 mmol/L 98-107 carbon dioxide, venous blood 33.0 mmol/L 21.0-32.0 blood glucose 107 mg/dL 65-110 calcium, serum 8.8 mg/dL 8.5-10.1 urea nitrogen, blood 12 mg/dL 7-18 creatinine, serum 0.69 mg/dL 0.55-1.30 Lab Report: CBC, Basic Metabolic Panel - Chemistry sodium, serum 132 mmol/L 086-009 1593/10/12 potassium, serum 4.7 mmol/L 3.5-5.2 chloride, serum [...] CBC - Chemistry sodium, serum 136 mmol/L 328-634 0230/11/01 carbon dioxide, venous blood 32.1 mmol/L 21.0-32.0 [...] mg/g mg/g{creat} 0-29 cholesterol, serum 195 mg/dL 307-093 2815/12/02 triglyceride, serum, fasting 74 mg/dL 30-200 HDL cholesterol, serum 52 mg/dL 32-96 LDL cholesterol, serum 128 mg/dL 0-130 sodium, serum 134 mmol/L 267-473 3793/12/02 carbon dioxide, venous blood 30.3 mmol/L 21.0-32.0 [...] 5.0-8.5 Encounters Code Encounter Date Provider Facility CPT-18056 Level 3 Est. Patient 10:34:55 CDT Gareth Cancino MD [facility]-38324 Level 4 Est. Patient 09:00:18 CDT Gareth Cancino MD [facility]-75563 Level 3 Est. Patient 15:12:03 CDT Gareth Cancino MD [facility]-75557 Level 3 Est. Patient 23:08:20 CDT Gareth Cancino MD [facility]-04930 Level 4 Est. Patient 20:40:10 CDT Gareth Cancino MD [facility]-70745 Level 4 Est. Patient 19:50:11 CDT Gareth Cancino MD [facility]-28608 Level 3 Est. Patient 11:00:13 CDT Gareth Cancino MD [facility] CPT-26010 Level 4 Est. Patient 11:20:21 CDT Gareth Cancino MD [facility]-27217 Level 4 Est. Patient 09:22:18 EM PHYSICIAN Gaerth Cancino MD [facility]-75431 Level 3 Est. Patient 09:48:04 CDT Gareth Cancino MD [facility]-09872 Level 3 Est. Patient 10:13:16 CDT Gareth Cancino MD [facility] CPT-56749 Level 2 Est. Patient 18:36:56 CDT Gareth Cancino MD [facility]-86615 Level 4 Est. Patient 13:50:53 CDT Gareth Cancino MD [facility]-51437 Level 3 Est. Patient 14:58:33 EM PHYSICIAN Gareth Cancino MD [facility] CPT-28933 Level 4 Est. Patient 09:25:57 CDT Gareth Cancino MD [facility] CPT-38162 Level 3 Est. Patient 20:39:33 CDT Noman Edwards DO [facility] CPT-89194 Level 2 Est. Patient 13:17:39 CDT Gareth Cancino MD [facility] CPT-19258 Level 3 Est. Patient 13:37:20 CDT Gareth Cancino MD [facility] CPT-86093 Level 3 Est. Patient 18:09:08 CDT Gareth Cancino MD [facility] CPT-24726 Level 4 Est. Patient 09:59:07 CDT Gareth Cancino MD [facility] Procedures Code Procedure Name Date Entry Date Standard Description CPT-G0009 Administration of Pneumococcal Vaccine 11:42:53 EM PHYSICIAN CPT-91850 Prevnar 13 Intramuscular Suspension 11:42:53 EM PHYSICIAN 01/07 CPT-02054 First Vx - Ix admin for Medicare patients 11:39:44 EM PHYSICIAN CPT-42647 Fluzone High-Dose Intramuscular Suspension 11:39:44 EM PHYSICIAN CPT-42186 Prevnar 13 Intramuscular Suspension 09:29:52 EM PHYSICIAN 01/07 CPT-22705 CMP - LAB USE ONLY 16:31:15 CDT CPT-61326 CBC - LAB USE ONLY 16:31:14 CDT CPT-35826 Venipuncture Draw Fee 16:31:14 CDT CPT-65081 BMP - LAB USE ONLY 14:37:27 CDT CPT-95978 CBC - LAB USE ONLY 14:37:27 CDT CPT-02080 Venipuncture Draw Fee 14:37:27 CDT CPT-TCMM Transitional Care Mgmt-Moderate 14:43:38 CDT CPT-67621 Venipuncture Draw Fee 10:33:47 CDT CPT-04841 BMP - LAB USE ONLY 10:33:46 CDT CPT-Cryo Cryotherapy 15:12:03 CDT CPT-72817 LS spine AP and Lat - XRAY USE ONLY 10:31:51 CDT 07/27 CPT-38615 Punch biopsy 1 lsn 20:40:09 CDT CPT-G0008 Administration of Influenza Virus Vaccine 10:04:48 EM PHYSICIAN CPT-21885 Fluzone High-Dose Intramuscular Suspension 10:04:48 EM PHYSICIAN CPT-63861 Ribs unilat w PA chst min 3V 10:45:40 CDT CPT-LR Lesion Removal 13:14:55 CDT CPT-Cryo Cryotherapy 13:14:55 CDT CPT-97985 Venipuncture Draw Fee 10:25:49 CDT CPT-60614 Administration single or combination vaccine inc oral 13 :22:14 EM PHYSICIAN CPT-94217 Influenza High Dose age 65+ 13:22:14 EM PHYSICIAN
--- OUTSIDE RECORDS SUMMARY | 2016-12-06 08:22 | XMS REPORT | Clinical Summary ---
Author Author Admin, HILARIA Organization [facility] Address Unknown Phone Unavailable Allergies, Adverse Reactions, [...] hours as needed for bck pain HYDROCODONE-ACETAMINOPHEN 91957907293 No Longer Active Gareth Cancino MD Active FENTANYL 12 MCG/HR PT72 Apply to clean, dry skin and change every 72 hours FENTANYL 65962460248 Active Gareth Cancino MD Active ALPRAZOLAM 0.25 MG TAB 1 tablet by mouth q hs prn ALPRAZOLAM 73100662689 Active Gareth Cancino MD Active AZITHROMYCIN 250 MG ORAL TABS 1 tab daily AZITHROMYCIN 94511395248 No Longer Active Gareth Cancino MD Active ZITHROMAX 250 MG TAB 2 po today, then 1 po q days 2-5 AZITHROMYCIN 38796529989 No Longer Active Tangela Forte Active IPRATROPIUM-ALBUTEROL 0.5-2.5 (3) MG/3ML INH SOLN nebulize 1 vial every 6hrs prn shortness of breath IPRATROPIUM-ALBUTEROL 78219642888 Active Gareth Cancino MD Active FENTANYL 25 MCG/HR PT72 Apply to clean, dry skin and change every 72 hours FENTANYL 92875077128 No Longer Active Gareth Cancino MD Active WELLBUTRIN SR 150 MG ORAL [id number] take 1 tab po BID BUPROPION HCL 46684367742 No Longer Active Gareth Cancino MD Active ZOFRAN 4 MG ORAL TABS 1 by mouth every 6 hours prn nausea ONDANSETRON HCL 96355127726 Active Tangela Forte Active TRAMADOL HCL 50 MG TABS 1 po tid PRN TRAMADOL HCL 79484239227 Active Gareth Cancino MD Active ALPRAZOLAM 0.25 MG TAB 1/2 to 1 tablet by mouth qhs prn ALPRAZOLAM 43911042476 No Longer Active Gareth Cancino MD Active CLOBETASOL PROPIONATE 0.05 % CREA apply to hand rash bid CLOBETASOL PROPIONATE 08687324267 No Longer Active Gareth Cancino MD Active BACTROBAN 2 % CREAM Apply to affected area BID MUPIROCIN CALCIUM 19945761628 No Longer Active Gareth Cancino MD Active LISINOPRIL 20 MG TABS 1 tablet by mouth daily for high blood pressure 10/14 LISINOPRIL 73989378708 Active Gareth Cancino MD Active BACTRIM DS 800-160 MG TAB 1 tab by mouth twice daily TRIMETHOPRIM-SULFAMETHOXAZOLE 23836927401 No Longer Active Gareth Cancino MD Active METOPROLOL SUCCINATE ER 100 MG [id number] 1 pill by mouth daily, for blood pressure METOPROLOL SUCCINATE 62777610847 Active Gareth Cancino MD Active KEFLEX 500 MG CAP 1 po TID x 10 days CEPHALEXIN 11530598861 No Longer Active Blanca Castillo APRN Active METOPROLOL SUCCINATE 50 MG TB24 1 tablet by mouth daily METOPROLOL SUCCINATE 76091749441 No Longer Active Gareth Cancino MD Active OMEPRAZOLE 20 MG TBEC Take one by mouth daily OMEPRAZOLE 97920126132 No Longer Active Gareth Cancino MD Active OMEPRAZOLE 40 MG CPDR 1 tab po qday for acid reflux. OMEPRAZOLE 08784197141 Active Mary Shah APRN Active LEVAQUIN 500 MG TAB 1 tablet by mouth daily LEVOFLOXACIN 90724936368 No Longer Active Gareth Cancino MD Active ALEVE 220 MG TAB 2 tab po qd NAPROXEN SODIUM 01189237945 Active Gareth Cancino MD Active ASPIRIN 81 MG CHEW TAB 1 tablet by mouth daily ASPIRIN 01509462532 Active Gareth Cancino MD Active VENTOLIN HFA 108 (90 BASE) MCG/ACT AERS 1-2 puffs four times a day PRN shortness of breath ALBUTEROL SULFATE 62254037584 Active Mary Shah APRN Active CENTRUM SILVER TABS 1 TAB PO DAILY MULTIPLE VITAMINS-MINERALS 98019332950 Active Gareth Cancino MD Active VITAMIN B12 100 MCG TABS 1 TAB PO DAILY CYANOCOBALAMIN 72507265581 Active Gareth Cancino MD Active CIPRO 500 MG TABS 1 TAB PO BID CIPROFLOXACIN HCL 41126996107 No Longer Active Gareth Cancino MD Active BACTRIM DS 800-160 MG TAB 1 tab by mouth twice daily TRIMETHOPRIM-SULFAMETHOXAZOLE 59254034175 No Longer Active Gareth Cancino MD Active PREDNISONE 20 MG TAB 1 tab po BID for 3 days, then 1 tab po qday for 3 days PREDNISONE 82573730131 No Longer Active Gareth Cancino MD Active FOLIC ACID 800 MCG TABS Take one by mouth daily FOLIC ACID 69912581642 No Longer Active Gareth Cancino MD Active VITAMIN B-6 250 MG TABS Take one by mouth daily PYRIDOXINE HCL 42090615709 No Longer Active Gareth Cancino MD Active B-12 1000 MCG CAPS Take one by mouth daily CYANOCOBALAMIN 58878295213 No Longer Active Gareth Cancino MD Active DOXYCYCLINE HYCLATE 100 MG CAP 1 cap by mouth twice daily DOXYCYCLINE HYCLATE 48363782987 No Longer Active Gareth Cancino MD Active PREDNISONE 20 MG TAB 1 po bid 3 days, then 1 po q day 3 days 2011 PREDNISONE 36556815935 No Longer Active Gareth Cancino MD Active CHANTIX STARTING MONTH RUBEN 0.5 MG X 11 & 1 MG X 42 TABS 0.5mg daily for 3 days , then 0.5mg BID for 4 days, then 1mg BID VARENICLINE TARTRATE 15888282228 No Longer Active Gareth Cancino MD Active SIMVASTATIN 40 MG TABS Take one by mouth daily SIMVASTATIN 19388625864 Active Gareth Cancino MD Active TRIAMTERENE-HCTZ 37.5-25 MG CAPS Take one by mouth daily TRIAMTERENE- HCTZ 12232772443 Active Gareth Cancino MD Active CHANTIX STARTING [...] 3 days 2011 PREDNISONE 20 MG TAB 574098 PREDNISONE Inactive DOXYCYCLINE HYCLATE 100 MG CAP 1 cap by mouth twice daily DOXYCYCLINE HYCLATE 100 MG CAP 2779556 DOXYCYCLINE HYCLATE Inactive B-12 1000 MCG CAPS Take one by mouth daily B-12 1000 MCG CAPS CYANOCOBALAMIN Inactive VITAMIN B-6 250 MG TABS Take one by mouth daily VITAMIN B-6 250 MG TABS PYRIDOXINE HCL Inactive FOLIC ACID 800 MCG TABS Take one by mouth daily FOLIC ACID 800 MCG TABS 542742 FOLIC ACID Inactive CIPRO 500 MG TABS 1 TAB PO BID CIPRO 500 MG TABS 014142 CIPROFLOXACIN HCL Inactive OMEPRAZOLE 20 MG TBEC Take one by mouth daily OMEPRAZOLE 20 MG TBEC 841153 OMEPRAZOLE Inactive METOPROLOL SUCCINATE 50 MG TB24 1 tablet by mouth daily METOPROLOL SUCCINATE 50 MG TB24 METOPROLOL SUCCINATE Inactive BACTROBAN 2 % CREAM Apply to affected area BID BACTROBAN 2 % CREAM 080459 MUPIROCIN CALCIUM Inactive CLOBETASOL PROPIONATE 0.05 % CREA apply to hand rash bid CLOBETASOL PROPIONATE 0.05 % CREA 972210 CLOBETASOL PROPIONATE Inactive ALPRAZOLAM 0.25 MG TAB 1/2 to 1 tablet by mouth qhs prn ALPRAZOLAM 0.25 MG TAB 057645 ALPRAZOLAM Inactive WELLBUTRIN SR 150 MG ORAL [id number] take 1 tab po BID WELLBUTRIN SR 150 MG ORAL [id number] BUPROPION HCL Inactive AZITHROMYCIN 250 MG ORAL TABS 1 tab daily AZITHROMYCIN 250 MG ORAL TABS 5448002 AZITHROMYCIN Inactive HYDROCODONE-ACETAMINOPHEN 5-325 MG TABS 1 tab by mouth every 6 hours as needed for bck pain HYDROCODONE-ACETAMINOPHEN 5-325 MG TABS 467638 HYDROCODONE-ACETAMINOPHEN Inactive PREDNISONE 20 MG TAB 1 tab po BID for 3 days, then 1 tab po qday for 3 days PREDNISONE 20 MG TAB 598773 PREDNISONE Inactive BACTRIM DS 800-160 MG TAB 1 tab by mouth twice daily BACTRIM DS 800-160 MG TAB 875696 TRIMETHOPRIM-SULFAMETHOXAZOLE Inactive LEVAQUIN 500 MG TAB 1 tablet by mouth daily LEVAQUIN 500 MG TAB 575369 LEVOFLOXACIN Inactive KEFLEX 500 MG CAP 1 po TID x 10 days KEFLEX 500 MG CAP 838450 CEPHALEXIN Inactive BACTRIM DS 800-160 MG TAB 1 tab by mouth twice daily BACTRIM DS 800-160 MG TAB 627011 TRIMETHOPRIM-SULFAMETHOXAZOLE Inactive FENTANYL 25 MCG/HR PT72 Apply to clean, dry skin and change every 72 hours FENTANYL 25 MCG/HR PT72 450683 FENTANYL Inactive ZITHROMAX 250 MG TAB 2 po today, then 1 po q days 2-5 ZITHROMAX 250 MG TAB 9681101 AZITHROMYCIN Inactive Vital Signs Date Name Value [...] Panel - Chemistry sodium, serum 133 mmol/L 793-250 2315/08/24 potassium, serum 4.4 mmol/L 3.5-5.2 chloride, serum 95 mmol/L 98-107 carbon dioxide, venous blood 33.0 mmol/L 21.0-32.0 blood glucose 107 mg/dL 65-110 calcium, serum 8.8 mg/dL 8.5-10.1 urea nitrogen, blood 12 mg/dL 7-18 creatinine, serum 0.69 mg/dL 0.55-1.30 Lab Report: CBC, Basic Metabolic Panel - Chemistry sodium, serum 132 mmol/L 946-866 4472/10/12 potassium, serum 4.7 mmol/L 3.5-5.2 chloride, serum [...] CBC - Chemistry sodium, serum 136 mmol/L 916-649 8955/11/01 carbon dioxide, venous blood 32.1 mmol/L 21.0-32.0 [...] Negative Encounters Code Encounter Date Provider Facility CPT-97893 Level 3 Est. Patient 20:53:25 CEILING CLEANER Gareth Cancino MD [facility] CPT-59663 Level 3 Est. Patient 10:34:55 CDT Gareth Cancino MD [facility] CPT-63860 Level 4 Est. Patient 09:00:18 CDT Gareth Cancino MD [facility] CPT-83429 Level 3 Est. Patient 15:12:03 CDT Gareth Cancino MD [facility] CPT-84106 Level 3 Est. Patient 23:08:20 CDT Gareth Cancino MD [facility] CPT-25329 Level 4 Est. Patient 20:40:10 CDT Gareth Cancino MD [facility] CPT-98510 Level 4 Est. Patient 19:50:11 CDT Gareth Cancino MD [facility] CPT-89464 Level 3 Est. Patient 11:00:13 CDT Gareth Cancino MD [facility]-24627 Level 4 Est. Patient 11:20:21 CDT Gareth Cancino MD [facility] CPT-83948 Level 4 Est. Patient 09:22:18 CEILING CLEANER Gareth Cancino MD [facility] CPT-68808 Level 3 Est. Patient 09:48:04 CDT Gareth Cancino MD [facility]-52421 Level 3 Est. Patient 10:13:16 CDT Gareth Cancino MD [facility]-78583 Level 2 Est. Patient 18:36:56 CDT Gareth Cancino MD [facility]-11079 Level 4 Est. Patient 13:50:53 CDT Gareth Cancino MD [facility] CPT-74293 Level 3 Est. Patient 14:58:33 CEILING CLEANER Gareth Cancino MD [facility] CPT-65992 Level 4 Est. Patient 09:25:57 CDT Gareth Cancino MD [facility]-89203 Level 3 Est. Patient 20:39:33 CDT Noman Edwards DO [facility] CPT-96310 Level 2 Est. Patient 13:17:39 CDT Gareth Cancino MD [facility]-72148 Level 3 Est. Patient 13:37:20 CDT Gareth Cancino MD [facility]-71171 Level 3 Est. Patient 18:09:08 CDT Gareth Cancino MD [facility]-64647 Level 4 Est. Patient 09:59:07 CDT Gareth Cancino MD [facility] Procedures Code Procedure Name Date Entry Date Standard Description CPT-29723 TSH - LAB USE ONLY 08:11:40 CEILING CLEANER CPT-63896 Free T4 - LAB USE ONLY 08:11:40 CEILING CLEANER CPT-70034 Venipuncture Draw Fee 08:11:40 CEILING CLEANER CPT-11098 UA w micro - LAB USE ONLY 14:26:22 CEILING CLEANER CPT-G0438 Initial Annual Wellness Exam 20:53:25 CEILING CLEANER CPT-G0009 Administration of Pneumococcal Vaccine 11:42:53 CEILING CLEANER CPT-82460 Prevnar 13 Intramuscular Suspension 11:42:53 CEILING CLEANER 01/07 CPT-97906 First Vx - Ix admin for Medicare patients 11:39:44 CEILING CLEANER CPT-44377 Fluzone High-Dose Intramuscular Suspension 11:39:44 CEILING CLEANER CPT-00521 Prevnar 13 Intramuscular Suspension 09:29:52 CEILING CLEANER 01/07 CPT-27307 CMP - LAB USE ONLY 16:31:15 CDT CPT-07110 CBC - LAB USE ONLY 16:31:14 CDT CPT-35116 Venipuncture Draw Fee 16:31:14 CDT CPT-27231 BMP - LAB USE ONLY 14:37:27 CDT CPT-96280 CBC - LAB USE ONLY 14:37:27 CDT CPT-59813 Venipuncture Draw Fee 14:37:27 CDT CPT-TCMM Transitional Care Mgmt-Moderate 14:43:38 CDT CPT-93179 Venipuncture Draw Fee 10:33:47 CDT CPT-01009 BMP - LAB USE ONLY 10:33:46 CDT CPT-Cryo Cryotherapy 15:12:03 CDT CPT-40116 LS spine AP and Lat - XRAY USE ONLY 10:31:51 CDT 07/27 CPT-90968 Punch biopsy 1 lsn 20:40:09 CDT CPT-G0008 Administration of Influenza Virus Vaccine 10:04:48 CEILING CLEANER CPT-68235 Fluzone High-Dose Intramuscular Suspension 10:04:48 CEILING CLEANER CPT-37868 Ribs unilat w PA chst min 3V 10:45:40 CDT CPT-LR Lesion Removal 13:14:55 CDT CPT-Cryo Cryotherapy 13:14:55 CDT CPT-47104 Venipuncture Draw Fee 10:25:49 CDT CPT-10429 Administration single or combination vaccine inc oral 13 :22:14 CEILING CLEANER CPT-96287 Influenza High Dose age 65+ 13:22:14 CEILING CLEANER
--- OUTSIDE RECORDS SUMMARY | 2016-12-06 08:23 | XMS REPORT | Clinical Summary ---
Author Author Admin, HILARIA Organization [facility] Address Unknown Phone Unavailable Allergies, Adverse [...] unspecified cause Skin lesion 709.9 Active Blanca Campbelll BELL SPINNER Unspecified disorder of skin and subcutaneous tissue Bronchitis-Acute ICD-466.0 Inactive Gareth Cancino MD Medication List Medication Instructions Start Date Stop Date Generic Name NDC Status Provider Patient Instruction KEFLEX 500 MG CAP 1 po TID x 10 days CEPHALEXIN 20182121421 Active Jillina Frazell BELL SPINNER Active CLOBETASOL PROPIONATE 0.05 % CREA apply to hand rash bid CLOBETASOL PROPIONATE 28459010306 Active Gareth Cancino MD Active WELLBUTRIN SR 150 MG ORAL [id number] take 1 tab po BID BUPROPION HCL 50096386126 Active Gareth Cancino MD Active METOPROLOL SUCCINATE 50 MG TB24 1 tablet by mouth daily METOPROLOL SUCCINATE 05759864731 No Longer Active Gareth Cancino MD Active METOPROLOL SUCCINATE ER 100 MG [id number] 1 pill by mouth daily, for blood pressure METOPROLOL SUCCINATE 75189359742 Active Gareth Cancino MD Active OMEPRAZOLE 20 MG TBEC Take one by mouth daily OMEPRAZOLE 55656633090 No Longer Active Gareth Cancino MD Active OMEPRAZOLE 40 MG CPDR 1 tab po qday for acid reflux. OMEPRAZOLE 92217890732 Active Gareth Cancino MD Active LEVAQUIN 500 MG TAB 1 tablet by mouth daily LEVOFLOXACIN 55459006622 No Longer Active Gareth Cancino MD Active ALEVE 220 MG TAB 2 tab po qd NAPROXEN SODIUM 99263162154 Active Gareth Cancino MD Active ASPIRIN 81 MG CHEW TAB 1 tablet by mouth daily ASPIRIN 24377714567 Active Gareth Cancino MD Active VENTOLIN HFA 108 (90 BASE) MCG/ACT AERS 1-2 puffs four times a day PRN shortness of breath ALBUTEROL SULFATE 48826138560 Active Fuad Franks MD Active CENTRUM SILVER TABS 1 TAB PO DAILY MULTIPLE VITAMINS-MINERALS 72259051028 Active Gareth Cancino MD Active VITAMIN B12 100 MCG TABS 1 TAB PO DAILY CYANOCOBALAMIN 14442711481 Active Gareth Cancino MD Active CIPRO 500 MG TABS 1 TAB PO BID CIPROFLOXACIN HCL 03147100886 No Longer Active Gareth Cancino MD Active BACTRIM DS 800-160 MG TAB 1 tab by mouth twice daily TRIMETHOPRIM-SULFAMETHOXAZOLE 22591848410 No Longer Active Gareth Cancino MD Active PREDNISONE 20 MG TAB 1 tab po BID for 3 days, then 1 tab po qday for 3 days PREDNISONE 56959218530 No Longer Active Gareth Cancino MD Active FOLIC ACID 800 MCG TABS Take one by mouth daily FOLIC ACID 72970386591 No Longer Active Gareth Cancino MD Active VITAMIN B-6 250 MG TABS Take one by mouth daily PYRIDOXINE HCL 09415572025 No Longer Active Gareth Cancino MD Active B-12 1000 MCG CAPS Take one by mouth daily CYANOCOBALAMIN 67974813166 No Longer Active Gareth Cancino MD Active DOXYCYCLINE HYCLATE 100 MG CAP 1 cap by mouth twice daily DOXYCYCLINE HYCLATE 72899940063 No Longer Active Gareth Cancino MD Active PREDNISONE 20 MG TAB 1 po bid 3 days, then 1 po q day 3 days 2011 PREDNISONE 55003717758 No Longer Active Gareth Cancino MD Active CHANTIX STARTING MONTH RUBEN 0.5 MG X 11 & 1 MG X 42 TABS 0.5mg daily for 3 days , then 0.5mg BID for 4 days, then 1mg BID VARENICLINE TARTRATE 76607567074 No Longer Active Gareth Cancino MD Active ALPRAZOLAM 0.25 MG TAB 1/2 to 1 tablet by mouth qhs prn ALPRAZOLAM 93408439318 Active Gareth Cancino MD Active SIMVASTATIN 40 MG TABS Take one by mouth daily SIMVASTATIN 40682493802 Active Gareth Cancino MD Active TRIAMTERENE-HCTZ 37.5-25 MG CAPS Take one by mouth daily TRIAMTERENE- HCTZ 44465873774 Active Gareth Cancino MD Active CHANTIX STARTING [...] 3 days 2011 PREDNISONE 20 MG TAB 021497 PREDNISONE Inactive DOXYCYCLINE HYCLATE 100 MG CAP 1 cap by mouth twice daily DOXYCYCLINE HYCLATE 100 MG CAP 2858683 DOXYCYCLINE HYCLATE Inactive B-12 1000 MCG CAPS Take one by mouth daily B-12 1000 MCG CAPS CYANOCOBALAMIN Inactive VITAMIN B-6 250 MG TABS Take one by mouth daily VITAMIN B-6 250 MG TABS PYRIDOXINE HCL Inactive FOLIC ACID 800 MCG TABS Take one by mouth daily FOLIC ACID 800 MCG TABS 773614 FOLIC ACID Inactive CIPRO 500 MG TABS 1 TAB PO BID CIPRO 500 MG TABS 480529 CIPROFLOXACIN HCL Inactive OMEPRAZOLE 20 MG TBEC Take one by mouth daily OMEPRAZOLE 20 MG TBEC 961752 OMEPRAZOLE Inactive METOPROLOL SUCCINATE 50 MG TB24 1 tablet by mouth daily METOPROLOL SUCCINATE 50 MG TB24 METOPROLOL SUCCINATE Inactive PREDNISONE 20 MG TAB 1 tab po BID for 3 days, then 1 tab po qday for 3 days PREDNISONE 20 MG TAB 375350 PREDNISONE Inactive BACTRIM DS 800-160 MG TAB 1 tab by mouth twice daily BACTRIM DS 800-160 MG TAB TRIMETHOPRIM-SULFAMETHOXAZOLE Inactive LEVAQUIN 500 MG TAB 1 tablet by mouth daily LEVAQUIN 500 MG TAB 327342 LEVOFLOXACIN Inactive Vital Signs Date Name Value [...] MICROALBUMIN - Chemistry sodium, serum 138 mmol/L 572-566 5299/09/10 potassium, serum 4.2 mmol/L 3.5-5.2 chloride, serum [...] 0.20 mg/dL 0.00-1.00 cholesterol, serum 153 mg/dL 188-729 0456/09/10 triglyceride, serum, fasting 69 mg/dL 30-200 HDL [...] mg/dL Encounters Code Encounter Date Provider Facility CPT-70003 Level 4 Est. Patient 11:20:21 CDT Gareth Cancino MD [facility] CPT-34721 Level 4 Est. Patient 09:22:18 SCRAP WORKER Gareth Cancino MD [facility] CPT-50355 Level 3 Est. Patient 09:48:04 CDT Gareth Cancino MD [facility] CPT-00291 Level 3 Est. Patient 10:13:16 CDT Gareth Cancino MD [facility] CPT-70137 Level 2 Est. Patient 18:36:56 CDT Gareth Cancino MD [facility] CPT-58369 Level 4 Est. Patient 13:50:53 CDT Gareth Cancino MD [facility] CPT-27650 Level 3 Est. Patient 14:58:33 SCRAP WORKER Gareth Cancino MD [facility] CPT-61117 Level 4 Est. Patient 09:25:57 CDT Gareth Cancino MD [facility] CPT-64809 Level 3 Est. Patient 20:39:33 CDT Noman Edwards DO [facility] CPT-90718 Level 2 Est. Patient 13:17:39 CDT Gareth Cancino MD [facility] CPT-40985 Level 3 Est. Patient 13:37:20 CDT Gareth Cancino MD [facility] CPT-11914 Level 3 Est. Patient 18:09:08 CDT Gareth Cancino MD [facility] CPT-96642 Level 4 Est. Patient 09:59:07 CDT Gareth Cancino MD [facility] Procedures Code Procedure Name Date Entry Date Standard Description CPT-G0008 Administration of Influenza Virus Vaccine 10:04:48 SCRAP WORKER CPT-83481 Fluzone High-Dose Intramuscular Suspension 10:04:48 SCRAP WORKER CPT-46382 Ribs unilat w PA chst min 3V 10:45:40 CDT CPT-LR Lesion Removal 13:14:55 CDT CPT-Cryo Cryotherapy 13:14:55 CDT CPT-98748 Venipuncture Draw Fee 10:25:49 CDT CPT-53826 Administration single or combination vaccine inc oral 13 :22:14 SCRAP WORKER CPT-16716 Influenza High Dose age 65+ 13:22:14 SCRAP WORKER
--- OUTSIDE RECORDS SUMMARY | 2016-12-06 08:23 | XMS REPORT | Clinical Summary ---
Author Author Admin, HILARIA Organization [facility] Address Unknown Phone Unavailable Allergies, Adverse Reactions, [...] daily for high blood pressure 10/14 LISINOPRIL 55566269757 Active Gaerth Cancino MD Active BACTROBAN 2 % CREAM Apply to affected area BID MUPIROCIN CALCIUM 59632486651 Active Gareth Cancino MD Active BACTRIM DS 800-160 MG TAB 1 tab by mouth twice daily TRIMETHOPRIM-SULFAMETHOXAZOLE 05189882275 Active Gareth Cancino MD Active METOPROLOL SUCCINATE ER 100 MG [id number] 1 pill by mouth daily, for blood pressure METOPROLOL SUCCINATE 35429706533 Active Gareth Cancino MD Active KEFLEX 500 MG CAP 1 po TID x 10 days CEPHALEXIN 88930086787 No Longer Active Jillchaim Fuenteszellinda SPECIAL EFFECTS TECHNICIAN Active CLOBETASOL PROPIONATE 0.05 % CREA apply to hand rash bid CLOBETASOL PROPIONATE 52550771358 Active Gareth Cancino MD Active WELLBUTRIN SR 150 MG ORAL [id number] take 1 tab po BID BUPROPION HCL 68149419654 Active Gareth Cancino MD Active METOPROLOL SUCCINATE 50 MG TB24 1 tablet by mouth daily METOPROLOL SUCCINATE 50029870408 No Longer Active Gareth Cancino MD Active OMEPRAZOLE 20 MG TBEC Take one by mouth daily OMEPRAZOLE 14504803885 No Longer Active Gareth Cancino MD Active OMEPRAZOLE 40 MG CPDR 1 tab po qday for acid reflux. OMEPRAZOLE 57899289633 Active Gareth Cancino MD Active LEVAQUIN 500 MG TAB 1 tablet by mouth daily LEVOFLOXACIN 15791752654 No Longer Active Gareth Cancino MD Active ALEVE 220 MG TAB 2 tab po qd NAPROXEN SODIUM 18984455821 Active Gareth Cancino MD Active ASPIRIN 81 MG CHEW TAB 1 tablet by mouth daily ASPIRIN 87906321769 Active Gareth Cancino MD Active VENTOLIN HFA 108 (90 BASE) MCG/ACT AERS 1-2 puffs four times a day PRN shortness of breath ALBUTEROL SULFATE 05616113053 Active Fuad Franks MD Active CENTRUM SILVER TABS 1 TAB PO DAILY MULTIPLE VITAMINS-MINERALS 27151252549 Active Gareth Cancino MD Active VITAMIN B12 100 MCG TABS 1 TAB PO DAILY CYANOCOBALAMIN 94399045310 Active Gareth Cancino MD Active CIPRO 500 MG TABS 1 TAB PO BID CIPROFLOXACIN HCL 75582527458 No Longer Active Gareth Cancino MD Active BACTRIM DS 800-160 MG TAB 1 tab by mouth twice daily TRIMETHOPRIM-SULFAMETHOXAZOLE 20313405420 No Longer Active Gareth Canicno MD Active PREDNISONE 20 MG TAB 1 tab po BID for 3 days, then 1 tab po qday for 3 days PREDNISONE 80196944311 No Longer Active Gareth Cancino MD Active FOLIC ACID 800 MCG TABS Take one by mouth daily FOLIC ACID 26948523984 No Longer Active Gareth Cancino MD Active VITAMIN B-6 250 MG TABS Take one by mouth daily PYRIDOXINE HCL 36138158483 No Longer Active Gareth Cancino MD Active B-12 1000 MCG CAPS Take one by mouth daily CYANOCOBALAMIN 56021591388 No Longer Active Gareth Cancino MD Active DOXYCYCLINE HYCLATE 100 MG CAP 1 cap by mouth twice daily DOXYCYCLINE HYCLATE 25296469769 No Longer Active Gareth Cancino MD Active PREDNISONE 20 MG TAB 1 po bid 3 days, then 1 po q day 3 days 2011 PREDNISONE 00111235220 No Longer Active Gareth Cancino MD Active CHANTIX STARTING MONTH RUBEN 0.5 MG X 11 & 1 MG X 42 TABS 0.5mg daily for 3 days , then 0.5mg BID for 4 days, then 1mg BID VARENICLINE TARTRATE 42193511136 No Longer Active Gareth Cancino MD Active ALPRAZOLAM 0.25 MG TAB 1/2 to 1 tablet by mouth qhs prn ALPRAZOLAM 33482244494 Active Gareth Cancino MD Active SIMVASTATIN 40 MG TABS Take one by mouth daily SIMVASTATIN 07957379013 Active Gareth Cancino MD Active TRIAMTERENE-HCTZ 37.5-25 MG CAPS Take one by mouth daily TRIAMTERENE- HCTZ 82706787278 Active Gareth Cancino MD Active CHANTIX STARTING [...] 3 days 2011 PREDNISONE 20 MG TAB 898325 PREDNISONE Inactive DOXYCYCLINE HYCLATE 100 MG CAP 1 cap by mouth twice daily DOXYCYCLINE HYCLATE 100 MG CAP 0630457 DOXYCYCLINE HYCLATE Inactive B-12 1000 MCG CAPS Take one by mouth daily B-12 1000 MCG CAPS CYANOCOBALAMIN Inactive VITAMIN B-6 250 MG TABS Take one by mouth daily VITAMIN B-6 250 MG TABS PYRIDOXINE HCL Inactive FOLIC ACID 800 MCG TABS Take one by mouth daily FOLIC ACID 800 MCG TABS 135730 FOLIC ACID Inactive CIPRO 500 MG TABS 1 TAB PO BID CIPRO 500 MG TABS 472950 CIPROFLOXACIN HCL Inactive OMEPRAZOLE 20 MG TBEC Take one by mouth daily OMEPRAZOLE 20 MG TBEC 799456 OMEPRAZOLE Inactive METOPROLOL SUCCINATE 50 MG TB24 1 tablet by mouth daily METOPROLOL SUCCINATE 50 MG TB24 METOPROLOL SUCCINATE Inactive PREDNISONE 20 MG TAB 1 tab po BID for 3 days, then 1 tab po qday for 3 days PREDNISONE 20 MG TAB 145126 PREDNISONE Inactive BACTRIM DS 800-160 MG TAB 1 tab by mouth twice daily BACTRIM DS 800-160 MG TAB TRIMETHOPRIM-SULFAMETHOXAZOLE Inactive LEVAQUIN 500 MG TAB 1 tablet by mouth daily LEVAQUIN 500 MG TAB 282041 LEVOFLOXACIN Inactive KEFLEX 500 MG CAP 1 po TID x 10 days KEFLEX 500 MG CAP 126094 CEPHALEXIN Inactive Vital Signs Date Name Value Unit Range Description blood pressure, diastolic - 8462-4 86 mm[Hg] [...] MICROALBUMIN - Chemistry sodium, serum 138 mmol/L 881-608 9927/09/10 potassium, serum 4.2 mmol/L 3.5-5.2 chloride, serum [...] 0.20 mg/dL 0.00-1.00 cholesterol, serum 153 mg/dL 994-106 8279/09/10 triglyceride, serum, fasting 69 mg/dL 30-200 HDL [...] mg/dL Encounters Code Encounter Date Provider Facility CPT-24621 Level 4 Est. Patient 19:50:11 CDT Gareth Cancino MD [facility] CPT-49138 Level 3 Est. Patient 11:00:13 CDT Gareth Cancino MD [facility] CPT-37000 Level 4 Est. Patient 11:20:21 CDT Gareth Cancino MD [facility] CPT-34777 Level 4 Est. Patient 09:22:18 PHYSICAL OPTICS TEACHER Gareth Cancino MD [facility] CPT-43750 Level 3 Est. Patient 09:48:04 CDT Graeth Cancino MD [facility] CPT-89256 Level 3 Est. Patient 10:13:16 CDT Gareth Cancino MD [facility] CPT-88211 Level 2 Est. Patient 18:36:56 CDT Gareth Cancino MD [facility] CPT-41102 Level 4 Est. Patient 13:50:53 CDT Gareth Cancino MD [facility] CPT-92250 Level 3 Est. Patient 14:58:33 PHYSICAL OPTICS TEACHER Gareth Cancino MD [facility] CPT-95319 Level 4 Est. Patient 09:25:57 CDT Gareth Cancino MD [facility] CPT-67564 Level 3 Est. Patient 20:39:33 CDT Noman Edwards DO [facility] CPT-37006 Level 2 Est. Patient 13:17:39 CDT Gareth Cancino MD [facility] CPT-51099 Level 3 Est. Patient 13:37:20 CDT Gareth Cancino MD [facility] CPT-48218 Level 3 Est. Patient 18:09:08 CDT Gareth Cancino MD [facility] CPT-65808 Level 4 Est. Patient 09:59:07 CDT Gareth Cancino MD [facility] Procedures Code Procedure Name Date Entry Date Standard Description CPT-G0008 Administration of Influenza Virus Vaccine 10:04:48 PHYSICAL OPTICS TEACHER CPT-15408 Fluzone High-Dose Intramuscular Suspension 10:04:48 PHYSICAL OPTICS TEACHER CPT-12832 Ribs unilat w PA chst min 3V 10:45:40 CDT CPT-LR Lesion Removal 13:14:55 CDT CPT-Cryo Cryotherapy 13:14:55 CDT CPT-22498 Venipuncture Draw Fee 10:25:49 CDT CPT-07402 Administration single or combination vaccine inc oral 13 :22:14 PHYSICAL OPTICS TEACHER CPT-26287 Influenza High Dose age 65+ 13:22:14 PHYSICAL OPTICS TEACHER
--- OUTSIDE RECORDS SUMMARY | 2016-12-06 08:24 | XMS REPORT | Clinical Summary ---
Author Author Admin, HILARIA Organization [facility] Address Unknown Phone Unavailable Allergies, Adverse [...] unspecified HYPERLIPIDEMIA, OTHER UNSPECIFIED 272.4 Active Gareth aCncino MD Other and unspecified hyperlipidemia PREVENTIVE HEALTH [...] apply to hand rash bid CLOBETASOL PROPIONATE 65997805073 Active Gareth Cancino MD Active WELLBUTRIN SR 150 MG ORAL [id number] take 1 tab po BID BUPROPION HCL 02187272080 Active Gareth Cancino MD Active METOPROLOL SUCCINATE 50 MG TB24 1 tablet by mouth daily METOPROLOL SUCCINATE 10922690391 No Longer Active Gareth Cancino MD Active METOPROLOL SUCCINATE ER 100 MG [id number] 1 pill by mouth daily, for blood pressure METOPROLOL SUCCINATE 16158934149 Active Gareth Cancino MD Active OMEPRAZOLE 20 MG TBEC Take one by mouth daily OMEPRAZOLE 44208574767 No Longer Active Gareth Cancino MD Active OMEPRAZOLE 40 MG CPDR 1 tab po qday for acid reflux. OMEPRAZOLE 09760360839 Active Gareth Cancino MD Active LEVAQUIN 500 MG TAB 1 tablet by mouth daily LEVOFLOXACIN 69736151379 No Longer Active Gareth Cancino MD Active ALEVE 220 MG TAB 2 tab po qd NAPROXEN SODIUM 59914214376 Active Gareth Cancino MD Active ASPIRIN 81 MG CHEW TAB 1 tablet by mouth daily ASPIRIN 88305385431 Active Gareth Cancino MD Active VENTOLIN HFA 108 (90 BASE) MCG/ACT AERS 1-2 puffs four times a day PRN shortness of breath ALBUTEROL SULFATE 35407808238 Active Fuad Franks MD Active CENTRUM SILVER TABS 1 TAB PO DAILY MULTIPLE VITAMINS-MINERALS 24665251685 Active Gareth Cancino MD Active VITAMIN B12 100 MCG TABS 1 TAB PO DAILY CYANOCOBALAMIN 03472183743 Active Gareth Cancino MD Active CIPRO 500 MG TABS 1 TAB PO BID CIPROFLOXACIN HCL 68046058038 No Longer Active Gareth Cancino MD Active BACTRIM DS 800-160 MG TAB 1 tab by mouth twice daily TRIMETHOPRIM-SULFAMETHOXAZOLE 73533155099 No Longer Active Gareth Cancino MD Active PREDNISONE 20 MG TAB 1 tab po BID for 3 days, then 1 tab po qday for 3 days PREDNISONE 82463583314 No Longer Active Gareth Cancino MD Active FOLIC ACID 800 MCG TABS Take one by mouth daily FOLIC ACID 99375674862 No Longer Active Gareth Cancino MD Active VITAMIN B-6 250 MG TABS Take one by mouth daily PYRIDOXINE HCL 18065672392 No Longer Active Gareth Cancino MD Active B-12 1000 MCG CAPS Take one by mouth daily CYANOCOBALAMIN 53645771654 No Longer Active Gareth Cancino MD Active DOXYCYCLINE HYCLATE 100 MG CAP 1 cap by mouth twice daily DOXYCYCLINE HYCLATE 27330007242 No Longer Active Gareth Cancino MD Active PREDNISONE 20 MG TAB 1 po bid 3 days, then 1 po q day 3 days 2011 PREDNISONE 91607144650 No Longer Active Gareth Cnacino MD Active CHANTIX STARTING MONTH RUBEN 0.5 MG X 11 & 1 MG X 42 TABS 0.5mg daily for 3 days , then 0.5mg BID for 4 days, then 1mg BID VARENICLINE TARTRATE 85370356109 No Longer Active Gareth Cancino MD Active ALPRAZOLAM 0.25 MG TAB 1/2 to 1 tablet by mouth qhs prn ALPRAZOLAM 45673830249 Active Gareth Cancino MD Active SIMVASTATIN 40 MG TABS Take one by mouth daily SIMVASTATIN 68353832306 Active Gareth Cancino MD Active TRIAMTERENE-HCTZ 37.5-25 MG CAPS Take one by mouth daily TRIAMTERENE- HCTZ 47885574693 Active Gareth Cancino MD Active CHANTIX STARTING [...] 3 days 2011 PREDNISONE 20 MG TAB 257199 PREDNISONE Inactive DOXYCYCLINE HYCLATE 100 MG CAP 1 cap by mouth twice daily DOXYCYCLINE HYCLATE 100 MG CAP 4711891 DOXYCYCLINE HYCLATE Inactive B-12 1000 MCG CAPS Take one by mouth daily B-12 1000 MCG CAPS CYANOCOBALAMIN Inactive VITAMIN B-6 250 MG TABS Take one by mouth daily VITAMIN B-6 250 MG TABS PYRIDOXINE HCL Inactive FOLIC ACID 800 MCG TABS Take one by mouth daily FOLIC ACID 800 MCG TABS 932726 FOLIC ACID Inactive CIPRO 500 MG TABS 1 TAB PO BID CIPRO 500 MG TABS 197314 CIPROFLOXACIN HCL Inactive OMEPRAZOLE 20 MG TBEC Take one by mouth daily OMEPRAZOLE 20 MG TBEC 454242 OMEPRAZOLE Inactive METOPROLOL SUCCINATE 50 MG TB24 1 tablet by mouth daily METOPROLOL SUCCINATE 50 MG TB24 METOPROLOL SUCCINATE Inactive PREDNISONE 20 MG TAB 1 tab po BID for 3 days, then 1 tab po qday for 3 days PREDNISONE 20 MG TAB 482823 PREDNISONE Inactive BACTRIM DS 800-160 MG TAB 1 tab by mouth twice daily BACTRIM DS 800-160 MG TAB TRIMETHOPRIM-SULFAMETHOXAZOLE Inactive LEVAQUIN 500 MG TAB 1 tablet by mouth daily LEVAQUIN 500 MG TAB 923131 LEVOFLOXACIN Inactive Vital Signs Date Name Value [...] MICROALBUMIN - Chemistry sodium, serum 138 mmol/L 926-537 7447/09/10 potassium, serum 4.2 mmol/L 3.5-5.2 chloride, serum [...] 0.20 mg/dL 0.00-1.00 cholesterol, serum 153 mg/dL 124-543 4305/09/10 triglyceride, serum, fasting 69 mg/dL 30-200 HDL [...] mg/dL Encounters Code Encounter Date Provider Facility CPT-59977 Level 4 Est. Patient 11:20:21 CDT Gareth Cancino MD [facility] CPT-81408 Level 4 Est. Patient 09:22:18 CONSULTING HR PROFESSIONAL Gareth Cancino MD [facility] CPT-86406 Level 3 Est. Patient 09:48:04 CDT Gareth Cancino MD [facility] CPT-63063 Level 3 Est. Patient 10:13:16 CDT Gareth Cancino MD [facility] CPT-97242 Level 2 Est. Patient 18:36:56 CDT Gareth Cancino MD [facility] CPT-29568 Level 4 Est. Patient 13:50:53 CDT Gareth Cancino MD [facility] CPT-30266 Level 3 Est. Patient 14:58:33 CONSULTING HR PROFESSIONAL Gareth Cancino MD [facility] CPT-70009 Level 4 Est. Patient 09:25:57 CDT Gareth Cancino MD [facility] CPT-95220 Level 3 Est. Patient 20:39:33 CDT Noman Edwards DO [facility] CPT-71639 Level 2 Est. Patient 13:17:39 CDT Gareth Cancino MD [facility] CPT-04554 Level 3 Est. Patient 13:37:20 CDT Gareth Cancino MD [facility] CPT-08946 Level 3 Est. Patient 18:09:08 CDT Gareth Cancino MD [facility] CPT-18489 Level 4 Est. Patient 09:59:07 CDT Gareth Cancino MD [facility] Procedures Code Procedure Name Date Entry Date Standard Description CPT-G0008 Administration of Influenza Virus Vaccine 10:04:48 CONSULTING HR PROFESSIONAL CPT-63570 Fluzone High-Dose Intramuscular Suspension 10:04:48 CONSULTING HR PROFESSIONAL CPT-85891 Ribs unilat w PA chst min 3V 10:45:40 CDT CPT-LR Lesion Removal 13:14:55 CDT CPT-Cryo Cryotherapy 13:14:55 CDT CPT-98123 Venipuncture Draw Fee 10:25:49 CDT CPT-52500 Administration single or combination vaccine inc oral 13 :22:14 CONSULTING HR PROFESSIONAL CPT-45723 Influenza High Dose age 65+ 13:22:14 CONSULTING HR PROFESSIONAL
--- OUTSIDE RECORDS SUMMARY | 2016-12-06 08:24 | XMS REPORT | Clinical Summary ---
Author Author Admin, HILARIA Organization [facility] Address Unknown Phone Unavailable Allergies, Adverse [...] daily for high blood pressure 10/14 LISINOPRIL 38290255442 Active Gareth Cancino MD Active BACTROBAN 2 % CREAM Apply to affected area BID MUPIROCIN CALCIUM 53574097155 Active Gareth Cancino MD Active BACTRIM DS 800-160 MG TAB 1 tab by mouth twice daily TRIMETHOPRIM-SULFAMETHOXAZOLE 05460230359 No Longer Active Gareth Cancino MD Active METOPROLOL SUCCINATE ER 100 MG [id number] 1 pill by mouth daily, for blood pressure METOPROLOL SUCCINATE 11014453071 Active Gareth Cancino MD Active KEFLEX 500 MG CAP 1 po TID x 10 days CEPHALEXIN 59224069737 No Longer Active Jillina Frazell FRANCINE Active CLOBETASOL PROPIONATE 0.05 % CREA apply to hand rash bid CLOBETASOL PROPIONATE 62746007997 Active Gareth Cancino MD Active WELLBUTRIN SR 150 MG ORAL [id number] take 1 tab po BID BUPROPION HCL 48440415324 Active Gareth Cancino MD Active METOPROLOL SUCCINATE 50 MG TB24 1 tablet by mouth daily METOPROLOL SUCCINATE 72221448596 No Longer Active Gareth Cancino MD Active OMEPRAZOLE 20 MG TBEC Take one by mouth daily OMEPRAZOLE 75762098721 No Longer Active Gareth Cancino MD Active OMEPRAZOLE 40 MG CPDR 1 tab po qday for acid reflux. OMEPRAZOLE 41709990880 Active Mary Shah APRN Active LEVAQUIN 500 MG TAB 1 tablet by mouth daily LEVOFLOXACIN 07848891610 No Longer Active Gareth Cancino MD Active ALEVE 220 MG TAB 2 tab po qd NAPROXEN SODIUM 31085519464 Active Gareth Cancino MD Active ASPIRIN 81 MG CHEW TAB 1 tablet by mouth daily ASPIRIN 26588495943 Active Gareth Cancino MD Active VENTOLIN HFA 108 (90 BASE) MCG/ACT AERS 1-2 puffs four times a day PRN shortness of breath ALBUTEROL SULFATE 88694956666 Active Mary Pablo CONVALESCENT SITTER Active CENTRUM SILVER TABS 1 TAB PO DAILY MULTIPLE VITAMINS-MINERALS 36525313937 Active Gareth Cancino MD Active VITAMIN B12 100 MCG TABS 1 TAB PO DAILY CYANOCOBALAMIN 55021955632 Active Gareth Cancino MD Active CIPRO 500 MG TABS 1 TAB PO BID CIPROFLOXACIN HCL 51401266170 No Longer Active Gareth Cancino MD Active BACTRIM DS 800-160 MG TAB 1 tab by mouth twice daily TRIMETHOPRIM-SULFAMETHOXAZOLE 48587219005 No Longer Active Gareth Cancino MD Active PREDNISONE 20 MG TAB 1 tab po BID for 3 days, then 1 tab po qday for 3 days PREDNISONE 92225881022 No Longer Active Gareth Cancino MD Active FOLIC ACID 800 MCG TABS Take one by mouth daily FOLIC ACID 18287525662 No Longer Active Gareth Cancino MD Active VITAMIN B-6 250 MG TABS Take one by mouth daily PYRIDOXINE HCL 30497963506 No Longer Active Gareth Cancino MD Active B-12 1000 MCG CAPS Take one by mouth daily CYANOCOBALAMIN 27789666108 No Longer Active Gareth Cancino MD Active DOXYCYCLINE HYCLATE 100 MG CAP 1 cap by mouth twice daily DOXYCYCLINE HYCLATE 23389988649 No Longer Active Gareth Cancino MD Active PREDNISONE 20 MG TAB 1 po bid 3 days, then 1 po q day 3 days 2011 PREDNISONE 61035064001 No Longer Active Gareth Cancino MD Active CHANTIX STARTING MONTH RUBEN 0.5 MG X 11 & 1 MG X 42 TABS 0.5mg daily for 3 days , then 0.5mg BID for 4 days, then 1mg BID VARENICLINE TARTRATE 61897255026 No Longer Active Gareth Cancino MD Active ALPRAZOLAM 0.25 MG TAB 1/2 to 1 tablet by mouth qhs prn ALPRAZOLAM 21054374510 Active Gareth Cancino MD Active SIMVASTATIN 40 MG TABS Take one by mouth daily SIMVASTATIN 34259282242 Active Gareth Cancino MD Active TRIAMTERENE-HCTZ 37.5-25 MG CAPS Take one by mouth daily TRIAMTERENE- HCTZ 29241536786 Active Gareth Cancino MD Active CHANTIX STARTING [...] 3 days 2011 PREDNISONE 20 MG TAB 781941 PREDNISONE Inactive DOXYCYCLINE HYCLATE 100 MG CAP 1 cap by mouth twice daily DOXYCYCLINE HYCLATE 100 MG CAP 1881840 DOXYCYCLINE HYCLATE Inactive B-12 1000 MCG CAPS Take one by mouth daily B-12 1000 MCG CAPS CYANOCOBALAMIN Inactive VITAMIN B-6 250 MG TABS Take one by mouth daily VITAMIN B-6 250 MG TABS PYRIDOXINE HCL Inactive FOLIC ACID 800 MCG TABS Take one by mouth daily FOLIC ACID 800 MCG TABS 837040 FOLIC ACID Inactive CIPRO 500 MG TABS 1 TAB PO BID CIPRO 500 MG TABS 161285 CIPROFLOXACIN HCL Inactive OMEPRAZOLE 20 MG TBEC Take one by mouth daily OMEPRAZOLE 20 MG TBEC 477583 OMEPRAZOLE Inactive METOPROLOL SUCCINATE 50 MG TB24 1 tablet by mouth daily METOPROLOL SUCCINATE 50 MG TB24 METOPROLOL SUCCINATE Inactive PREDNISONE 20 MG TAB 1 tab po BID for 3 days, then 1 tab po qday for 3 days PREDNISONE 20 MG TAB 176535 PREDNISONE Inactive BACTRIM DS 800-160 MG TAB 1 tab by mouth twice daily BACTRIM DS 800-160 MG TAB 079830 TRIMETHOPRIM-SULFAMETHOXAZOLE Inactive LEVAQUIN 500 MG TAB 1 tablet by mouth daily LEVAQUIN 500 MG TAB 588941 LEVOFLOXACIN Inactive KEFLEX 500 MG CAP 1 po TID x 10 days KEFLEX 500 MG CAP 818520 CEPHALEXIN Inactive BACTRIM DS 800-160 MG TAB 1 tab by mouth twice daily BACTRIM DS 800-160 MG TAB 500444 TRIMETHOPRIM-SULFAMETHOXAZOLE Inactive Vital Signs Date Name Value [...] ... - Chemistry cholesterol, serum 195 mg/dL 254-160 3256/12/02 triglyceride, serum, fasting 74 mg/dL 30-200 HDL cholesterol, serum 52 mg/dL 32-96 LDL cholesterol, serum 128 mg/dL 0-130 sodium, serum 134 mmol/L 569-961 4150/12/02 carbon dioxide, venous blood 30.3 mmol/L 21.0-32.0 [...] Negative Encounters Code Encounter Date Provider Facility CPT-[id number] Level 4 Est. Patient 20:40:10 CDT Gareth Cancino MD [facility] CPT-63164 Level 4 Est. Patient 19:50:11 CDT Gareth Cancino MD [facility] CPT-86652 Level 3 Est. Patient 11:00:13 CDT Gareth Cancino MD [facility] CPT-72418 Level 4 Est. Patient 11:20:21 CDT Gareth Cancino MD [facility] CPT-43510 Level 4 Est. Patient 09:22:18 PIT SUPERVISOR Gareth Cancino MD [facility] CPT-79796 Level 3 Est. Patient 09:48:04 CDT Gareth Cancino MD [facility] CPT-21315 Level 3 Est. Patient 10:13:16 CDT Gareth Cancino MD [facility] CPT-02651 Level 2 Est. Patient 18:36:56 CDT Gareth Cancino MD [facility] CPT-46922 Level 4 Est. Patient 13:50:53 CDT Gareth Cancino MD [facility] CPT-15398 Level 3 Est. Patient 14:58:33 PIT SUPERVISOR Gareth Cancino MD [facility] CPT-30009 Level 4 Est. Patient 09:25:57 CDT Gareth Cancino MD [facility] CPT-04598 Level 3 Est. Patient 20:39:33 CDT Noman Edwards DO [facility] CPT-98829 Level 2 Est. Patient 13:17:39 CDT Gareth Cancino MD [facility] CPT-28080 Level 3 Est. Patient 13:37:20 CDT Gareth Cancino MD [facility] CPT-57086 Level 3 Est. Patient 18:09:08 CDT Gareth Cancino MD [facility] CPT-38566 Level 4 Est. Patient 09:59:07 CDT Gareth Cancino MD [facility] Procedures Code Procedure Name Date Entry Date Standard Description CPT-55786 Punch biopsy 1 lsn 20:40:09 CDT CPT-G0008 Administration of Influenza Virus Vaccine 10:04:48 PIT SUPERVISOR CPT-39757 Fluzone High-Dose Intramuscular Suspension 10:04:48 PIT SUPERVISOR CPT-22767 Ribs unilat w PA chst min 3V 10:45:40 CDT CPT-LR Lesion Removal 13:14:55 CDT CPT-Cryo Cryotherapy 13:14:55 CDT CPT-38451 Venipuncture Draw Fee 10:25:49 CDT CPT-08420 Administration single or combination vaccine inc oral 13 :22:14 PIT SUPERVISOR CPT-09129 Influenza High Dose age 65+ 13:22:14 PIT SUPERVISOR
--- OUTSIDE RECORDS SUMMARY | 2016-12-06 08:25 | XMS REPORT | Clinical Summary ---
Author Author Admin, HILARIA Organization [facility] Address Unknown Phone Unavailable Allergies, Adverse [...] daily for high blood pressure 10/14 LISINOPRIL 45888486010 Active Gareth Cancino MD Active BACTROBAN 2 % CREAM Apply to affected area BID MUPIROCIN CALCIUM 88128831725 Active Gareth Cancino MD Active BACTRIM DS 800-160 MG TAB 1 tab by mouth twice daily TRIMETHOPRIM-SULFAMETHOXAZOLE 71465893825 No Longer Active Gareth Cancino MD Active METOPROLOL SUCCINATE ER 100 MG [id number] 1 pill by mouth daily, for blood pressure METOPROLOL SUCCINATE 75010773149 Active Gareth Cancino MD Active KEFLEX 500 MG CAP 1 po TID x 10 days CEPHALEXIN 03069838157 No Longer Active Jillina Frazell FRANCINE Active CLOBETASOL PROPIONATE 0.05 % CREA apply to hand rash bid CLOBETASOL PROPIONATE 77253414090 Active Gareth Cancino MD Active WELLBUTRIN SR 150 MG ORAL [id number] take 1 tab po BID BUPROPION HCL 72623929781 Active Gareth Cancino MD Active METOPROLOL SUCCINATE 50 MG TB24 1 tablet by mouth daily METOPROLOL SUCCINATE 15641666153 No Longer Active Gareth Cancino MD Active OMEPRAZOLE 20 MG TBEC Take one by mouth daily OMEPRAZOLE 71749296693 No Longer Active Gareth Cancino MD Active OMEPRAZOLE 40 MG CPDR 1 tab po qday for acid reflux. OMEPRAZOLE 85534502387 Active Mary Shah APRN Active LEVAQUIN 500 MG TAB 1 tablet by mouth daily LEVOFLOXACIN 64591130143 No Longer Active Gareth Cancino MD Active ALEVE 220 MG TAB 2 tab po qd NAPROXEN SODIUM 24830556172 Active Gareth Cancino MD Active ASPIRIN 81 MG CHEW TAB 1 tablet by mouth daily ASPIRIN 20778027484 Active Gareth Cancino MD Active VENTOLIN HFA 108 (90 BASE) MCG/ACT AERS 1-2 puffs four times a day PRN shortness of breath ALBUTEROL SULFATE 69534504278 Active Mary Pablo SPRING ASSEMBLER SUPERVISOR Active CENTRUM SILVER TABS 1 TAB PO DAILY MULTIPLE VITAMINS-MINERALS 27010080310 Active Gareth Cancino MD Active VITAMIN B12 100 MCG TABS 1 TAB PO DAILY CYANOCOBALAMIN 48642488411 Active Gareth Cancino MD Active CIPRO 500 MG TABS 1 TAB PO BID CIPROFLOXACIN HCL 21584721846 No Longer Active Gareth Cancino MD Active BACTRIM DS 800-160 MG TAB 1 tab by mouth twice daily TRIMETHOPRIM-SULFAMETHOXAZOLE 60621198567 No Longer Active Gareth Cancino MD Active PREDNISONE 20 MG TAB 1 tab po BID for 3 days, then 1 tab po qday for 3 days PREDNISONE 76634156356 No Longer Active Gareth Cancino MD Active FOLIC ACID 800 MCG TABS Take one by mouth daily FOLIC ACID 87491010036 No Longer Active Gareth Cancino MD Active VITAMIN B-6 250 MG TABS Take one by mouth daily PYRIDOXINE HCL 01650675931 No Longer Active Gareth Cancino MD Active B-12 1000 MCG CAPS Take one by mouth daily CYANOCOBALAMIN 04804422979 No Longer Active Gareth Cancino MD Active DOXYCYCLINE HYCLATE 100 MG CAP 1 cap by mouth twice daily DOXYCYCLINE HYCLATE 05643829627 No Longer Active Gareth Cancino MD Active PREDNISONE 20 MG TAB 1 po bid 3 days, then 1 po q day 3 days 2011 PREDNISONE 21766044925 No Longer Active Gareth Cancino MD Active CHANTIX STARTING MONTH RUBEN 0.5 MG X 11 & 1 MG X 42 TABS 0.5mg daily for 3 days , then 0.5mg BID for 4 days, then 1mg BID VARENICLINE TARTRATE 62881169522 No Longer Active Gareth Cancino MD Active ALPRAZOLAM 0.25 MG TAB 1/2 to 1 tablet by mouth qhs prn ALPRAZOLAM 49802038950 Active Gareth Cancino MD Active SIMVASTATIN 40 MG TABS Take one by mouth daily SIMVASTATIN 28964984162 Active Gareth Cancino MD Active TRIAMTERENE-HCTZ 37.5-25 MG CAPS Take one by mouth daily TRIAMTERENE- HCTZ 30409587552 Active Gareth Cancino MD Active CHANTIX STARTING [...] 3 days 2011 PREDNISONE 20 MG TAB 226156 PREDNISONE Inactive DOXYCYCLINE HYCLATE 100 MG CAP 1 cap by mouth twice daily DOXYCYCLINE HYCLATE 100 MG CAP 7279070 DOXYCYCLINE HYCLATE Inactive B-12 1000 MCG CAPS Take one by mouth daily B-12 1000 MCG CAPS CYANOCOBALAMIN Inactive VITAMIN B-6 250 MG TABS Take one by mouth daily VITAMIN B-6 250 MG TABS PYRIDOXINE HCL Inactive FOLIC ACID 800 MCG TABS Take one by mouth daily FOLIC ACID 800 MCG TABS 219345 FOLIC ACID Inactive CIPRO 500 MG TABS 1 TAB PO BID CIPRO 500 MG TABS 827550 CIPROFLOXACIN HCL Inactive OMEPRAZOLE 20 MG TBEC Take one by mouth daily OMEPRAZOLE 20 MG TBEC 358609 OMEPRAZOLE Inactive METOPROLOL SUCCINATE 50 MG TB24 1 tablet by mouth daily METOPROLOL SUCCINATE 50 MG TB24 METOPROLOL SUCCINATE Inactive PREDNISONE 20 MG TAB 1 tab po BID for 3 days, then 1 tab po qday for 3 days PREDNISONE 20 MG TAB 092780 PREDNISONE Inactive BACTRIM DS 800-160 MG TAB 1 tab by mouth twice daily BACTRIM DS 800-160 MG TAB 331324 TRIMETHOPRIM-SULFAMETHOXAZOLE Inactive LEVAQUIN 500 MG TAB 1 tablet by mouth daily LEVAQUIN 500 MG TAB 390038 LEVOFLOXACIN Inactive KEFLEX 500 MG CAP 1 po TID x 10 days KEFLEX 500 MG CAP 470636 CEPHALEXIN Inactive BACTRIM DS 800-160 MG TAB 1 tab by mouth twice daily BACTRIM DS 800-160 MG TAB 763813 TRIMETHOPRIM-SULFAMETHOXAZOLE Inactive Vital Signs Date Name Value [...] ... - Chemistry cholesterol, serum 195 mg/dL 098-356 2054/12/02 triglyceride, serum, fasting 74 mg/dL 30-200 HDL cholesterol, serum 52 mg/dL 32-96 LDL cholesterol, serum 128 mg/dL 0-130 sodium, serum 134 mmol/L 712-363 4152/12/02 carbon dioxide, venous blood 30.3 mmol/L 21.0-32.0 [...] Negative Encounters Code Encounter Date Provider Facility CPT-[id number] Level 4 Est. Patient 20:40:10 CDT Gareth Cancino MD [facility] CPT-48864 Level 4 Est. Patient 19:50:11 CDT Gareth Cancino MD [facility] CPT-56149 Level 3 Est. Patient 11:00:13 CDT Gareth Cancino MD [facility] CPT-73388 Level 4 Est. Patient 11:20:21 CDT Gareth Cancino MD [facility] CPT-91303 Level 4 Est. Patient 09:22:18 TECHNICAL DOCUMENT WRITER Gareth Cancino MD [facility] CPT-40448 Level 3 Est. Patient 09:48:04 CDT Gareth Cancino MD [facility] CPT-96275 Level 3 Est. Patient 10:13:16 CDT Gareth Cancino MD [facility] CPT-97588 Level 2 Est. Patient 18:36:56 CDT Gareth Cancino MD [facility] CPT-28022 Level 4 Est. Patient 13:50:53 CDT Gareth Cancino MD [facility] CPT-17826 Level 3 Est. Patient 14:58:33 TECHNICAL DOCUMENT WRITER Gareth Cancino MD [facility] CPT-63665 Level 4 Est. Patient 09:25:57 CDT Gareth Cancino MD [facility] CPT-45776 Level 3 Est. Patient 20:39:33 CDT Nomna Edwards DO [facility] CPT-84893 Level 2 Est. Patient 13:17:39 CDT Gareth Cancino MD [facility] CPT-50550 Level 3 Est. Patient 13:37:20 CDT Gareth Cancino MD [facility] CPT-28339 Level 3 Est. Patient 18:09:08 CDT Gareth Cancino MD [facility] CPT-32692 Level 4 Est. Patient 09:59:07 CDT Gareth Cancino MD [facility] Procedures Code Procedure Name Date Entry Date Standard Description CPT-25146 Punch biopsy 1 lsn 20:40:09 CDT CPT-G0008 Administration of Influenza Virus Vaccine 10:04:48 TECHNICAL DOCUMENT WRITER CPT-05638 Fluzone High-Dose Intramuscular Suspension 10:04:48 TECHNICAL DOCUMENT WRITER CPT-91400 Ribs unilat w PA chst min 3V 10:45:40 CDT CPT-LR Lesion Removal 13:14:55 CDT CPT-Cryo Cryotherapy 13:14:55 CDT CPT-05059 Venipuncture Draw Fee 10:25:49 CDT CPT-14236 Administration single or combination vaccine inc oral 13 :22:14 TECHNICAL DOCUMENT WRITER CPT-77562 Influenza High Dose age 65+ 13:22:14 TECHNICAL DOCUMENT WRITER
--- OUTSIDE RECORDS SUMMARY | 2016-12-06 08:26 | XMS REPORT | Clinical Summary ---
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 Unspecified disorder of skin and subcutaneous tissue Folliculitis 704.8 Active Gareth Cancino MD Other specified diseases of hair and hair follicles Low back pain, chronic 724.2 Active Gareth Cancino MD Lumbago Frequency of urination 788.41 Active Negin Garcia DIVER ASSISTANT Urinary frequency Actinic keratosis 702.0 Active Gareth [...] hours as needed for bck pain HYDROCODONE-ACETAMINOPHEN 50129292727 No Longer Active Gareth Cancino MD Active FENTANYL 12 MCG/HR PT72 Apply to clean, dry skin and change every 72 hours FENTANYL 42037056826 Active Gareth Cancino MD Active ALPRAZOLAM 0.25 MG TAB 1 tablet by mouth q hs prn ALPRAZOLAM 82456685168 Active Gareth Cancino MD Active AZITHROMYCIN 250 MG ORAL TABS 1 tab daily AZITHROMYCIN 38660006544 No Longer Active Gareth Cancino MD Active ZITHROMAX 250 MG TAB 2 po today, then 1 po q days 2-5 AZITHROMYCIN 17436119580 No Longer Active Tangela Forte Active IPRATROPIUM-ALBUTEROL 0.5-2.5 (3) MG/3ML INH SOLN nebulize 1 vial every 6hrs prn shortness of breath IPRATROPIUM-ALBUTEROL 81872831960 Active Gareth Cancino MD Active FENTANYL 25 MCG/HR PT72 Apply to clean, dry skin and change every 72 hours FENTANYL 09888514295 No Longer Active Gareth Cancino MD Active WELLBUTRIN SR 150 MG ORAL [id number] take 1 tab po BID BUPROPION HCL 77171457628 No Longer Active Gareth Cancino MD Active ZOFRAN 4 MG ORAL TABS 1 by mouth every 6 hours prn nausea ONDANSETRON HCL 74782619617 Active Tangela Forte Active TRAMADOL HCL 50 MG TABS 1 po tid PRN TRAMADOL HCL 21229270835 Active Gareth Cancino MD Active ALPRAZOLAM 0.25 MG TAB 1/2 to 1 tablet by mouth qhs prn ALPRAZOLAM 44456656910 No Longer Active Gareth Cancino MD Active CLOBETASOL PROPIONATE 0.05 % CREA apply to hand rash bid CLOBETASOL PROPIONATE 41735251865 No Longer Active Gareth Cancino MD Active BACTROBAN 2 % CREAM Apply to affected area BID MUPIROCIN CALCIUM 17584030900 No Longer Active Gareth Cancino MD Active LISINOPRIL 20 MG TABS 1 tablet by mouth daily for high blood pressure 10/14 LISINOPRIL 32448323847 Active Gareth Cancino MD Active BACTRIM DS 800-160 MG TAB 1 tab by mouth twice daily TRIMETHOPRIM-SULFAMETHOXAZOLE 97984910524 No Longer Active Gareth Cancino MD Active METOPROLOL SUCCINATE ER 100 MG [id number] 1 pill by mouth daily, for blood pressure METOPROLOL SUCCINATE 94320454196 Active Gareth Cancino MD Active KEFLEX 500 MG CAP 1 po TID x 10 days CEPHALEXIN 01595969102 No Longer Active Blanca Castillo APRN Active METOPROLOL SUCCINATE 50 MG TB24 1 tablet by mouth daily METOPROLOL SUCCINATE 56011378545 No Longer Active Gareth Cancino MD Active OMEPRAZOLE 20 MG TBEC Take one by mouth daily OMEPRAZOLE 05697487987 No Longer Active Gareth Cancino MD Active OMEPRAZOLE 40 MG CPDR 1 tab po qday for acid reflux. OMEPRAZOLE 51288400674 Active Mary Shah APRN Active LEVAQUIN 500 MG TAB 1 tablet by mouth daily LEVOFLOXACIN 18744952178 No Longer Active Gareth Cancino MD Active ALEVE 220 MG TAB 2 tab po qd NAPROXEN SODIUM 51870447648 Active Gareth Cancino MD Active ASPIRIN 81 MG CHEW TAB 1 tablet by mouth daily ASPIRIN 52727358320 Active Gareth Cancino MD Active VENTOLIN HFA 108 (90 BASE) MCG/ACT AERS 1-2 puffs four times a day PRN shortness of breath ALBUTEROL SULFATE 48865722210 Active Mary Shah APRN Active CENTRUM SILVER TABS 1 TAB PO DAILY MULTIPLE VITAMINS-MINERALS 17898711574 Active Gareth Cancino MD Active VITAMIN B12 100 MCG TABS 1 TAB PO DAILY CYANOCOBALAMIN 35643357874 Active Gareth Cancino MD Active CIPRO 500 MG TABS 1 TAB PO BID CIPROFLOXACIN HCL 57206442505 No Longer Active Gareth Cancino MD Active BACTRIM DS 800-160 MG TAB 1 tab by mouth twice daily TRIMETHOPRIM-SULFAMETHOXAZOLE 92200211898 No Longer Active Gareth Cancino MD Active PREDNISONE 20 MG TAB 1 tab po BID for 3 days, then 1 tab po qday for 3 days PREDNISONE 67025696122 No Longer Active Gareth Cancino MD Active FOLIC ACID 800 MCG TABS Take one by mouth daily FOLIC ACID 58514157012 No Longer Active Gareth Cancino MD Active VITAMIN B-6 250 MG TABS Take one by mouth daily PYRIDOXINE HCL 28126190828 No Longer Active Gareth Cancino MD Active B-12 1000 MCG CAPS Take one by mouth daily CYANOCOBALAMIN 19777813763 No Longer Active Gareth Cancino MD Active DOXYCYCLINE HYCLATE 100 MG CAP 1 cap by mouth twice daily DOXYCYCLINE HYCLATE 01134345230 No Longer Active Gareth Cancino MD Active PREDNISONE 20 MG TAB 1 po bid 3 days, then 1 po q day 3 days 2011 PREDNISONE 60125127174 No Longer Active Gareth Cancino MD Active CHANTIX STARTING MONTH RUBEN 0.5 MG X 11 & 1 MG X 42 TABS 0.5mg daily for 3 days , then 0.5mg BID for 4 days, then 1mg BID VARENICLINE TARTRATE 17019654925 No Longer Active Gareth Cancino MD Active SIMVASTATIN 40 MG TABS Take one by mouth daily SIMVASTATIN 99862567461 Active Gareth Cancino MD Active TRIAMTERENE-HCTZ 37.5-25 MG CAPS Take one by mouth daily TRIAMTERENE- HCTZ 67070558165 Active Gareth Cancino MD Active CHANTIX STARTING [...] 3 days 2011 PREDNISONE 20 MG TAB 275360 PREDNISONE Inactive DOXYCYCLINE HYCLATE 100 MG CAP 1 cap by mouth twice daily DOXYCYCLINE HYCLATE 100 MG CAP 6529175 DOXYCYCLINE HYCLATE Inactive B-12 1000 MCG CAPS Take one by mouth daily B-12 1000 MCG CAPS CYANOCOBALAMIN Inactive VITAMIN B-6 250 MG TABS Take one by mouth daily VITAMIN B-6 250 MG TABS PYRIDOXINE HCL Inactive FOLIC ACID 800 MCG TABS Take one by mouth daily FOLIC ACID 800 MCG TABS 050712 FOLIC ACID Inactive CIPRO 500 MG TABS 1 TAB PO BID CIPRO 500 MG TABS 761569 CIPROFLOXACIN HCL Inactive OMEPRAZOLE 20 MG TBEC Take one by mouth daily OMEPRAZOLE 20 MG TBEC 994764 OMEPRAZOLE Inactive METOPROLOL SUCCINATE 50 MG TB24 1 tablet by mouth daily METOPROLOL SUCCINATE 50 MG TB24 METOPROLOL SUCCINATE Inactive BACTROBAN 2 % CREAM Apply to affected area BID BACTROBAN 2 % CREAM 965874 MUPIROCIN CALCIUM Inactive CLOBETASOL PROPIONATE 0.05 % CREA apply to hand rash bid CLOBETASOL PROPIONATE 0.05 % CREA 567002 CLOBETASOL PROPIONATE Inactive ALPRAZOLAM 0.25 MG TAB 1/2 to 1 tablet by mouth qhs prn ALPRAZOLAM 0.25 MG TAB 319259 ALPRAZOLAM Inactive WELLBUTRIN SR 150 MG ORAL [id number] take 1 tab po BID WELLBUTRIN SR 150 MG ORAL [id number] BUPROPION HCL Inactive AZITHROMYCIN 250 MG ORAL TABS 1 tab daily AZITHROMYCIN 250 MG ORAL TABS 5566678 AZITHROMYCIN Inactive HYDROCODONE-ACETAMINOPHEN 5-325 MG TABS 1 tab by mouth every 6 hours as needed for bck pain HYDROCODONE-ACETAMINOPHEN 5-325 MG TABS 190976 HYDROCODONE-ACETAMINOPHEN Inactive PREDNISONE 20 MG TAB 1 tab po BID for 3 days, then 1 tab po qday for 3 days PREDNISONE 20 MG TAB 209503 PREDNISONE Inactive BACTRIM DS 800-160 MG TAB 1 tab by mouth twice daily BACTRIM DS 800-160 MG TAB 480176 TRIMETHOPRIM-SULFAMETHOXAZOLE Inactive LEVAQUIN 500 MG TAB 1 tablet by mouth daily LEVAQUIN 500 MG TAB 028353 LEVOFLOXACIN Inactive KEFLEX 500 MG CAP 1 po TID x 10 days KEFLEX 500 MG CAP 520279 CEPHALEXIN Inactive BACTRIM DS 800-160 MG TAB 1 tab by mouth twice daily BACTRIM DS 800-160 MG TAB 067307 TRIMETHOPRIM-SULFAMETHOXAZOLE Inactive FENTANYL 25 MCG/HR PT72 Apply to clean, dry skin and change every 72 hours FENTANYL 25 MCG/HR PT72 804919 FENTANYL Inactive ZITHROMAX 250 MG TAB 2 po today, then 1 po q days 2-5 ZITHROMAX 250 MG TAB 2151086 AZITHROMYCIN Inactive Vital Signs Date Name Value [...] Panel - Chemistry sodium, serum 133 mmol/L 748-862 3588/08/24 potassium, serum 4.4 mmol/L 3.5-5.2 chloride, serum 95 mmol/L 98-107 carbon dioxide, venous blood 33.0 mmol/L 21.0-32.0 blood glucose 107 mg/dL 65-110 calcium, serum 8.8 mg/dL 8.5-10.1 urea nitrogen, blood 12 mg/dL 7-18 creatinine, serum 0.69 mg/dL 0.55-1.30 Lab Report: CBC, Basic Metabolic Panel - Chemistry sodium, serum 132 mmol/L 983-479 5494/10/12 potassium, serum 4.7 mmol/L 3.5-5.2 chloride, serum [...] CBC - Chemistry sodium, serum 136 mmol/L 357-670 6019/11/01 carbon dioxide, venous blood 32.1 mmol/L 21.0-32.0 [...] mg/g mg/g{creat} 0-29 cholesterol, serum 195 mg/dL 560-552 2851/12/02 triglyceride, serum, fasting 74 mg/dL 30-200 HDL cholesterol, serum 52 mg/dL 32-96 LDL cholesterol, serum 128 mg/dL 0-130 sodium, serum 134 mmol/L 699-734 8789/12/02 carbon dioxide, venous blood 30.3 mmol/L 21.0-32.0 [...] 5.0-8.5 Encounters Code Encounter Date Provider Facility CPT-17156 Level 3 Est. Patient 10:34:55 CDT Gareth Cancino MD [facility]-34923 Level 4 Est. Patient 09:00:18 CDT Gareth Cancino MD [facility]-57101 Level 3 Est. Patient 15:12:03 CDT Gareth Cancino MD [facility]-06097 Level 3 Est. Patient 23:08:20 CDT Gareth Cancino MD [facility]-12047 Level 4 Est. Patient 20:40:10 CDT Gareth Cancino MD [facility]-86364 Level 4 Est. Patient 19:50:11 CDT Gareth Cancion MD [facility]-17779 Level 3 Est. Patient 11:00:13 CDT Gareth Cancino MD [facility] CPT-56795 Level 4 Est. Patient 11:20:21 CDT Gareth Cancino MD [facility]-01024 Level 4 Est. 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 Patient 09:48:04 CDT Gareth Cancino MD [facility]-08748 Level 3 Est. Patient 10:13:16 CDT Gareth Cancino MD [facility] CPT-57166 Level 2 Est. Patient 18:36:56 CDT Gareth Cancino MD [facility]-05088 Level 4 Est. Patient 13:50:53 CDT Gareth Cancino MD [facility]-47373 Level 3 Est. Patient 14:58:33 COMMERCIAL FRONT LOAD OPERATOR Gareth Cancino MD [facility] CPT-43858 Level 4 Est. Patient 09:25:57 CDT Gareth Cancino MD [facility] CPT-31543 Level 3 Est. Patient 20:39:33 CDT Noman Edwards DO [facility] CPT-02242 Level 2 Est. Patient 13:17:39 CDT Gareth Cancino MD [facility] CPT-42539 Level 3 Est. Patient 13:37:20 CDT Gareth Cancino MD [facility] CPT-31225 Level 3 Est. Patient 18:09:08 CDT Gareth Cancino MD [facility] CPT-39955 Level 4 Est. Patient 09:59:07 CDT Gareth Cancino MD [facility] Procedures Code Procedure Name Date Entry Date Standard Description CPT-G0009 Administration of Pneumococcal Vaccine 11:42:53 COMMERCIAL FRONT LOAD OPERATOR CPT-93047 Prevnar 13 Intramuscular Suspension 11:42:53 COMMERCIAL FRONT LOAD OPERATOR 01/07 CPT-76775 First Vx - Ix admin for Medicare patients 11:39:44 COMMERCIAL FRONT LOAD OPERATOR CPT-44895 Fluzone High-Dose Intramuscular Suspension 11:39:44 COMMERCIAL FRONT LOAD OPERATOR CPT-32270 Prevnar 13 Intramuscular Suspension 09:29:52 COMMERCIAL FRONT LOAD OPERATOR 01/07 CPT-71909 CMP - LAB USE ONLY 16:31:15 CDT CPT-13673 CBC - LAB USE ONLY 16:31:14 CDT CPT-34988 Venipuncture Draw Fee 16:31:14 CDT CPT-71688 BMP - LAB USE ONLY 14:37:27 CDT CPT-72709 CBC - LAB USE ONLY 14:37:27 CDT CPT-97817 Venipuncture Draw Fee 14:37:27 CDT CPT-TCMM Transitional Care Mgmt-Moderate 14:43:38 CDT CPT-06927 Venipuncture Draw Fee 10:33:47 CDT CPT-64464 BMP - LAB USE ONLY 10:33:46 CDT CPT-Cryo Cryotherapy 15:12:03 CDT CPT-29545 LS spine AP and Lat - XRAY USE ONLY 10:31:51 CDT 07/27 CPT-04969 Punch biopsy 1 lsn 20:40:09 CDT CPT-G0008 Administration of Influenza Virus Vaccine 10:04:48 COMMERCIAL FRONT LOAD OPERATOR CPT-92118 Fluzone High-Dose Intramuscular Suspension 10:04:48 COMMERCIAL FRONT LOAD OPERATOR CPT-45650 Ribs unilat w PA chst min 3V 10:45:40 CDT CPT-LR Lesion Removal 13:14:55 CDT CPT-Cryo Cryotherapy 13:14:55 CDT CPT-52428 Venipuncture Draw Fee 10:25:49 CDT CPT-70783 Administration single or combination vaccine inc oral 13 :22:14 COMMERCIAL FRONT LOAD OPERATOR CPT-79896 Influenza High Dose age 65+ 13:22:14 COMMERCIAL FRONT LOAD OPERATOR
--- OUTSIDE RECORDS SUMMARY | 2016-12-06 08:26 | XMS REPORT | Clinical Summary ---
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 Unspecified disorder of skin and subcutaneous tissue Folliculitis 704.8 Active Gareth Cancino MD Other specified diseases of hair and hair follicles Low back pain, chronic 724.2 Active Gareth Cancino MD Lumbago Frequency of urination 788.41 Active Negin Garcia PROFESSOR OF RELIGIOUS STUDIES Urinary frequency Actinic keratosis 702.0 Active Gareth Cancino MD Actinic keratosis Bronchitis-Acute ICD-466.0 Inactive Gareth Cancino MD Medication List Medication Instructions Start Date Stop Date Generic Name NDC Status Provider Patient Instruction HYDROCODONE-ACETAMINOPHEN 5-325 MG TABS 1 tab by mouth every 6 hours as needed for bck pain HYDROCODONE-ACETAMINOPHEN 89083116422 Active Gareth Cancino MD Active ALPRAZOLAM 0.25 MG TAB 1/2 to 1 tablet by mouth qhs prn ALPRAZOLAM 64011650233 No Longer Active Gareth Cancino MD Active CLOBETASOL PROPIONATE 0.05 % CREA apply to hand rash bid CLOBETASOL PROPIONATE 12827917238 No Longer Active Gareth Cancino MD Active BACTROBAN 2 % CREAM Apply to affected area BID MUPIROCIN CALCIUM 85235814916 No Longer Active Gareth Cancino MD Active LISINOPRIL 20 MG TABS 1 tablet by mouth daily for high blood pressure 10/14 LISINOPRIL 08186748523 Active Gareth Cancino MD Active BACTRIM DS 800-160 MG TAB 1 tab by mouth twice daily TRIMETHOPRIM-SULFAMETHOXAZOLE 87643551040 No Longer Active Gareth Cancino MD Active METOPROLOL SUCCINATE ER 100 MG [id number] 1 pill by mouth daily, for blood pressure METOPROLOL SUCCINATE 46401342531 Active Gareth Cancino MD Active KEFLEX 500 MG CAP 1 po TID x 10 days CEPHALEXIN 95097911002 No Longer Active Jillchaim Castillo APRN Active WELLBUTRIN SR 150 MG ORAL [id number] take 1 tab po BID BUPROPION HCL 18416656565 Active Gareth Cancino MD Active METOPROLOL SUCCINATE 50 MG TB24 1 tablet by mouth daily METOPROLOL SUCCINATE 31697370841 No Longer Active Gareth Cancino MD Active OMEPRAZOLE 20 MG TBEC Take one by mouth daily OMEPRAZOLE 85038858735 No Longer Active Gareth Cancino MD Active OMEPRAZOLE 40 MG CPDR 1 tab po qday for acid reflux. OMEPRAZOLE 53609787524 Active Mary Shah APRN Active LEVAQUIN 500 MG TAB 1 tablet by mouth daily LEVOFLOXACIN 31859702154 No Longer Active Gareth Cancino MD Active ALEVE 220 MG TAB 2 tab po qd NAPROXEN SODIUM 14067928267 Active Gareth Cancino MD Active ASPIRIN 81 MG CHEW TAB 1 tablet by mouth daily ASPIRIN 78744896963 Active Gareth Cancino MD Active VENTOLIN HFA 108 (90 BASE) MCG/ACT AERS 1-2 puffs four times a day PRN shortness of breath ALBUTEROL SULFATE 22063384546 Active Mary Shah APRN Active CENTRUM SILVER TABS 1 TAB PO DAILY MULTIPLE VITAMINS-MINERALS 11965390552 Active Gareth Cancino MD Active VITAMIN B12 100 MCG TABS 1 TAB PO DAILY CYANOCOBALAMIN 50916641914 Active Gareth Cancino MD Active CIPRO 500 MG TABS 1 TAB PO BID CIPROFLOXACIN HCL 35504576901 No Longer Active Gareth Cancino MD Active BACTRIM DS 800-160 MG TAB 1 tab by mouth twice daily TRIMETHOPRIM-SULFAMETHOXAZOLE 89428670545 No Longer Active Gareth Cancino MD Active PREDNISONE 20 MG TAB 1 tab po BID for 3 days, then 1 tab po qday for 3 days PREDNISONE 75236179539 No Longer Active Gareth Cancino MD Active FOLIC ACID 800 MCG TABS Take one by mouth daily FOLIC ACID 74381278887 No Longer Active Gareth Cancino MD Active VITAMIN B-6 250 MG TABS Take one by mouth daily PYRIDOXINE HCL 78924949167 No Longer Active Gareth Cancino MD Active B-12 1000 MCG CAPS Take one by mouth daily CYANOCOBALAMIN 32101567432 No Longer Active Gareth Cancino MD Active DOXYCYCLINE HYCLATE 100 MG CAP 1 cap by mouth twice daily DOXYCYCLINE HYCLATE 63096177777 No Longer Active Gareth Cancino MD Active PREDNISONE 20 MG TAB 1 po bid 3 days, then 1 po q day 3 days 2011 PREDNISONE 13549131155 No Longer Active Gareth Cancino MD Active CHANTIX STARTING MONTH RUBEN 0.5 MG X 11 & 1 MG X 42 TABS 0.5mg daily for 3 days , then 0.5mg BID for 4 days, then 1mg BID VARENICLINE TARTRATE 93383998200 No Longer Active Gareth Cancino MD Active SIMVASTATIN 40 MG TABS Take one by mouth daily SIMVASTATIN 05369207437 Active Gareth Cancino MD Active TRIAMTERENE-HCTZ 37.5-25 MG CAPS Take one by mouth daily TRIAMTERENE- HCTZ 16922335225 Active Gareth Cancino MD Active CHANTIX STARTING [...] 3 days 2011 PREDNISONE 20 MG TAB 233939 PREDNISONE Inactive DOXYCYCLINE HYCLATE 100 MG CAP 1 cap by mouth twice daily DOXYCYCLINE HYCLATE 100 MG CAP 5761070 DOXYCYCLINE HYCLATE Inactive B-12 1000 MCG CAPS Take one by mouth daily B-12 1000 MCG CAPS CYANOCOBALAMIN Inactive VITAMIN B-6 250 MG TABS Take one by mouth daily VITAMIN B-6 250 MG TABS PYRIDOXINE HCL Inactive FOLIC ACID 800 MCG TABS Take one by mouth daily FOLIC ACID 800 MCG TABS 566002 FOLIC ACID Inactive CIPRO 500 MG TABS 1 TAB PO BID CIPRO 500 MG TABS 400692 CIPROFLOXACIN HCL Inactive OMEPRAZOLE 20 MG TBEC Take one by mouth daily OMEPRAZOLE 20 MG TBEC 161926 OMEPRAZOLE Inactive METOPROLOL SUCCINATE 50 MG TB24 1 tablet by mouth daily METOPROLOL SUCCINATE 50 MG TB24 METOPROLOL SUCCINATE Inactive BACTROBAN 2 % CREAM Apply to affected area BID BACTROBAN 2 % CREAM 745334 MUPIROCIN CALCIUM Inactive CLOBETASOL PROPIONATE 0.05 % CREA apply to hand rash bid CLOBETASOL PROPIONATE 0.05 % CREA 670760 CLOBETASOL PROPIONATE Inactive ALPRAZOLAM 0.25 MG TAB 1/2 to 1 tablet by mouth qhs prn ALPRAZOLAM 0.25 MG TAB 144536 ALPRAZOLAM Inactive PREDNISONE 20 MG TAB 1 tab po BID for 3 days, then 1 tab po qday for 3 days PREDNISONE 20 MG TAB 338444 PREDNISONE Inactive BACTRIM DS 800-160 MG TAB 1 tab by mouth twice daily BACTRIM DS 800-160 MG TAB 023748 TRIMETHOPRIM-SULFAMETHOXAZOLE Inactive LEVAQUIN 500 MG TAB 1 tablet by mouth daily LEVAQUIN 500 MG TAB 466910 LEVOFLOXACIN Inactive KEFLEX 500 MG CAP 1 po TID x 10 days KEFLEX 500 MG CAP 417848 CEPHALEXIN Inactive BACTRIM DS 800-160 MG TAB 1 tab by mouth twice daily BACTRIM DS 800-160 MG TAB 607916 TRIMETHOPRIM-SULFAMETHOXAZOLE Inactive Vital Signs Date Name Value [...] Panel - Chemistry sodium, serum 133 mmol/L 968-752 3071/08/24 potassium, serum 4.4 mmol/L 3.5-5.2 chloride, serum 95 mmol/L 98-107 carbon dioxide, venous blood 33.0 mmol/L 21.0-32.0 blood glucose 107 mg/dL 65-110 calcium, serum 8.8 mg/dL 8.5-10.1 urea nitrogen, blood 12 mg/dL 7-18 creatinine, serum 0.69 mg/dL 0.55-1.30 Lab Report: Lipid Panel, Comp. Metabolic Panel, CBC W/DIFF, MICROALB/CRE ... - Chemistry albumin/creatinine ratio, urine < 30 mg/g mg/g{creat} 0-29 cholesterol, serum 195 mg/dL 352-186 1696/12/02 triglyceride, serum, fasting 74 mg/dL 30-200 HDL cholesterol, serum 52 mg/dL 32-96 LDL cholesterol, serum 128 mg/dL 0-130 sodium, serum 134 mmol/L 453-281 8719/12/02 carbon dioxide, venous blood 30.3 mmol/L 21.0-32.0 [...] 5.0-8.5 Encounters Code Encounter Date Provider Facility CPT-23175 Level 4 Est. Patient 09:00:18 CDT Gareth Cancino MD [facility] CPT-61427 Level 3 Est. Patient 15:12:03 CDT Gareth Cancino MD [facility] CPT-27987 Level 3 Est. Patient 23:08:20 CDT Gareth Cancino MD [facility] CPT-44743 Level 4 Est. Patient 20:40:10 CDT Gareth Cancino MD [facility] CPT-54942 Level 4 Est. Patient 19:50:11 CDT Gaerth Cancino MD [facility] CPT-04356 Level 3 Est. Patient 11:00:13 CDT Gareth Cancino MD [facility] CPT-85991 Level 4 Est. Patient 11:20:21 CDT Gareth Cancino MD [facility] CPT-72486 Level 4 Est. Patient 09:22:18 MANAGER EVENT Gareth Cancino MD [facility] CPT-47847 Level 3 Est. Patient 09:48:04 CDT Gareth Cancino MD [facility] CPT-05344 Level 3 Est. Patient 10:13:16 CDT Gareth Cancino MD [facility] CPT-60413 Level 2 Est. Patient 18:36:56 CDT Gareth Cancino MD [facility] CPT-63200 Level 4 Est. Patient 13:50:53 CDT Gareth Cancino MD [facility] CPT-94788 Level 3 Est. Patient 14:58:33 MANAGER EVENT Gareth Cancino MD [facility] CPT-03665 Level 4 Est. Patient 09:25:57 CDT Gareth Cancino MD [facility] CPT-94906 Level 3 Est. Patient 20:39:33 CDT Noman Edwards DO [facility] CPT-76387 Level 2 Est. Patient 13:17:39 CDT Gareth Cancino MD [facility] CPT-38177 Level 3 Est. Patient 13:37:20 CDT Gareth Cancino MD [facility] CPT-38658 Level 3 Est. Patient 18:09:08 CDT Gareth Cancino MD [facility] CPT-01316 Level 4 Est. Patient 09:59:07 CDT Gareth Cancino MD [facility] Procedures Code Procedure Name Date Entry Date Standard Description CPT-16577 Venipuncture Draw Fee 10:33:47 CDT CPT-31407 BMP - LAB USE ONLY 10:33:46 CDT CPT-Cryo Cryotherapy 15:12:03 CDT CPT-00822 LS spine AP and Lat - XRAY USE ONLY 10:31:51 CDT 07/27 CPT-35668 Punch biopsy 1 lsn 20:40:09 CDT CPT-G0008 Administration of Influenza Virus Vaccine 10:04:48 MANAGER EVENT CPT-27021 Fluzone High-Dose Intramuscular Suspension 10:04:48 MANAGER EVENT CPT-60719 Ribs unilat w PA chst min 3V 10:45:40 CDT CPT-LR Lesion Removal 13:14:55 CDT CPT-Cryo Cryotherapy 13:14:55 CDT CPT-28745 Venipuncture Draw Fee 10:25:49 CDT CPT-19150 Administration single or combination vaccine inc oral 13 :22:14 MANAGER EVENT CPT-53182 Influenza High Dose age 65+ 13:22:14 MANAGER EVENT
--- OUTSIDE RECORDS SUMMARY | 2016-12-06 08:27 | XMS REPORT | Clinical Summary ---
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 Unspecified disorder of skin and subcutaneous tissue Folliculitis 704.8 Active Gareth Cancino MD Other specified diseases of hair and hair follicles Low back pain, chronic 724.2 Active Gareth Cancino MD Lumbago Frequency of urination 788.41 Active Negin Garcia COUNTER PERSON Urinary frequency Actinic keratosis 702.0 Active Gareth [...] hours as needed for bck pain HYDROCODONE-ACETAMINOPHEN 81336988487 No Longer Active Gareth Cancino MD Active FENTANYL 12 MCG/HR PT72 Apply to clean, dry skin and change every 72 hours FENTANYL 13103286645 Active Gareth Cancino MD Active ALPRAZOLAM 0.25 MG TAB 1 tablet by mouth q hs prn ALPRAZOLAM 83062812939 Active Gareth Cancino MD Active AZITHROMYCIN 250 MG ORAL TABS 1 tab daily AZITHROMYCIN 37184758309 No Longer Active Gareth Cancino MD Active ZITHROMAX 250 MG TAB 2 po today, then 1 po q days 2-5 AZITHROMYCIN 98114953886 No Longer Active Tangela Forte Active IPRATROPIUM-ALBUTEROL 0.5-2.5 (3) MG/3ML INH SOLN nebulize 1 vial every 6hrs prn shortness of breath IPRATROPIUM-ALBUTEROL 13863778654 Active Gareth Cancino MD Active FENTANYL 25 MCG/HR PT72 Apply to clean, dry skin and change every 72 hours FENTANYL 62558117673 No Longer Active Gareth Cancino MD Active WELLBUTRIN SR 150 MG ORAL [id number]-VUG take 1 tab po BID BUPROPION HCL 86248473886 No Longer Active Gareth Cancino MD Active ZOFRAN 4 MG ORAL TABS 1 by mouth every 6 hours prn nausea ONDANSETRON HCL 48578460198 Active Tangela Forte Active TRAMADOL HCL 50 MG TABS 1 po tid PRN TRAMADOL HCL 82212230612 Active Gareth Cancino MD Active ALPRAZOLAM 0.25 MG TAB 1/2 to 1 tablet by mouth qhs prn ALPRAZOLAM 50622615605 No Longer Active Gareth Cancino MD Active CLOBETASOL PROPIONATE 0.05 % CREA apply to hand rash bid CLOBETASOL PROPIONATE 79660874015 No Longer Active Gareth Cancino MD Active BACTROBAN 2 % CREAM Apply to affected area BID MUPIROCIN CALCIUM 97515997467 No Longer Active Gareth Cancino MD Active LISINOPRIL 20 MG TABS 1 tablet by mouth daily for high blood pressure 10/14 LISINOPRIL 82069913122 Active Gareth Cancino MD Active BACTRIM DS 800-160 MG TAB 1 tab by mouth twice daily TRIMETHOPRIM-SULFAMETHOXAZOLE 67326851481 No Longer Active Gareth Cancino MD Active METOPROLOL SUCCINATE ER 100 MG RI44D-MDS 1 pill by mouth daily, for blood pressure METOPROLOL SUCCINATE 75461293048 Active Gareth Cancino MD Active KEFLEX 500 MG CAP 1 po TID x 10 days CEPHALEXIN 27305713967 No Longer Active Blanca Castillo APRN Active METOPROLOL SUCCINATE 50 MG TB24 1 tablet by mouth daily METOPROLOL SUCCINATE 93207097725 No Longer Active Gareth Cancino MD Active OMEPRAZOLE 20 MG TBEC Take one by mouth daily OMEPRAZOLE 79629635681 No Longer Active Gareth Cancino MD Active OMEPRAZOLE 40 MG CPDR 1 tab po qday for acid reflux. OMEPRAZOLE 00253205227 Active Mary Shah APRN Active LEVAQUIN 500 MG TAB 1 tablet by mouth daily LEVOFLOXACIN 07428535340 No Longer Active Gareth Cancino MD Active ALEVE 220 MG TAB 2 tab po qd NAPROXEN SODIUM 70149503746 Active Gareth Cancino MD Active ASPIRIN 81 MG CHEW TAB 1 tablet by mouth daily ASPIRIN 95710301008 Active Gareth Cancino MD Active VENTOLIN HFA 108 (90 BASE) MCG/ACT AERS 1-2 puffs four times a day PRN shortness of breath ALBUTEROL SULFATE 68572512886 Active Mary Shah APRN Active CENTRUM SILVER TABS 1 TAB PO DAILY MULTIPLE VITAMINS-MINERALS 88670128824 Active Gareth Cancino MD Active VITAMIN B12 100 MCG TABS 1 TAB PO DAILY CYANOCOBALAMIN 90717405591 Active Gareth Cancino MD Active CIPRO 500 MG TABS 1 TAB PO BID CIPROFLOXACIN HCL 84994136916 No Longer Active Gareth Cancino MD Active BACTRIM DS 800-160 MG TAB 1 tab by mouth twice daily TRIMETHOPRIM-SULFAMETHOXAZOLE 50499633935 No Longer Active Gareth Cancino MD Active PREDNISONE 20 MG TAB 1 tab po BID for 3 days, then 1 tab po qday for 3 days PREDNISONE 04518627240 No Longer Active Gareth Cancino MD Active FOLIC ACID 800 MCG TABS Take one by mouth daily FOLIC ACID 10376114921 No Longer Active Gareth Cancino MD Active VITAMIN B-6 250 MG TABS Take one by mouth daily PYRIDOXINE HCL 03587602467 No Longer Active Gareth Cancino MD Active B-12 1000 MCG CAPS Take one by mouth daily CYANOCOBALAMIN 13537198675 No Longer Active Gareth Cancino MD Active DOXYCYCLINE HYCLATE 100 MG CAP 1 cap by mouth twice daily DOXYCYCLINE HYCLATE 96411195862 No Longer Active Gareth Cancino MD Active PREDNISONE 20 MG TAB 1 po bid 3 days, then 1 po q day 3 days 2011 PREDNISONE 26599135458 No Longer Active Gareth Cancino MD Active CHANTIX STARTING MONTH RUBEN 0.5 MG X 11 & 1 MG X 42 TABS 0.5mg daily for 3 days , then 0.5mg BID for 4 days, then 1mg BID VARENICLINE TARTRATE 57450583982 No Longer Active Gareth Cacnino MD Active SIMVASTATIN 40 MG TABS Take one by mouth daily SIMVASTATIN 21573845864 Active Gareth Cancino MD Active TRIAMTERENE-HCTZ 37.5-25 MG CAPS Take one by mouth daily TRIAMTERENE- HCTZ 32470754166 Active Gareth Cancino MD Active CHANTIX STARTING [...] 3 days 2011 PREDNISONE 20 MG TAB 387746 PREDNISONE Inactive DOXYCYCLINE HYCLATE 100 MG CAP 1 cap by mouth twice daily DOXYCYCLINE HYCLATE 100 MG CAP 1866965 DOXYCYCLINE HYCLATE Inactive B-12 1000 MCG CAPS Take one by mouth daily B-12 1000 MCG CAPS CYANOCOBALAMIN Inactive VITAMIN B-6 250 MG TABS Take one by mouth daily VITAMIN B-6 250 MG TABS PYRIDOXINE HCL Inactive FOLIC ACID 800 MCG TABS Take one by mouth daily FOLIC ACID 800 MCG TABS 668567 FOLIC ACID Inactive CIPRO 500 MG TABS 1 TAB PO BID CIPRO 500 MG TABS 493299 CIPROFLOXACIN HCL Inactive OMEPRAZOLE 20 MG TBEC Take one by mouth daily OMEPRAZOLE 20 MG TBEC 928629 OMEPRAZOLE Inactive METOPROLOL SUCCINATE 50 MG TB24 1 tablet by mouth daily METOPROLOL SUCCINATE 50 MG TB24 METOPROLOL SUCCINATE Inactive BACTROBAN 2 % CREAM Apply to affected area BID BACTROBAN 2 % CREAM 076484 MUPIROCIN CALCIUM Inactive CLOBETASOL PROPIONATE 0.05 % CREA apply to hand rash bid CLOBETASOL PROPIONATE 0.05 % CREA 446009 CLOBETASOL PROPIONATE Inactive ALPRAZOLAM 0.25 MG TAB 1/2 to 1 tablet by mouth qhs prn ALPRAZOLAM 0.25 MG TAB 557128 ALPRAZOLAM Inactive WELLBUTRIN SR 150 MG ORAL FY71X-TBI take 1 tab po BID WELLBUTRIN SR 150 MG ORAL [id number] BUPROPION HCL Inactive AZITHROMYCIN 250 MG ORAL TABS 1 tab daily AZITHROMYCIN 250 MG ORAL TABS 9296505 AZITHROMYCIN Inactive HYDROCODONE-ACETAMINOPHEN 5-325 MG TABS 1 tab by mouth every 6 hours as needed for bck pain HYDROCODONE-ACETAMINOPHEN 5-325 MG TABS 135342 HYDROCODONE-ACETAMINOPHEN Inactive PREDNISONE 20 MG TAB 1 tab po BID for 3 days, then 1 tab po qday for 3 days PREDNISONE 20 MG TAB 133885 PREDNISONE Inactive BACTRIM DS 800-160 MG TAB 1 tab by mouth twice daily BACTRIM DS 800-160 MG TAB 366592 TRIMETHOPRIM-SULFAMETHOXAZOLE Inactive LEVAQUIN 500 MG TAB 1 tablet by mouth daily LEVAQUIN 500 MG TAB 992860 LEVOFLOXACIN Inactive KEFLEX 500 MG CAP 1 po TID x 10 days KEFLEX 500 MG CAP 208135 CEPHALEXIN Inactive BACTRIM DS 800-160 MG TAB 1 tab by mouth twice daily BACTRIM DS 800-160 MG TAB 696595 TRIMETHOPRIM-SULFAMETHOXAZOLE Inactive FENTANYL 25 MCG/HR PT72 Apply to clean, dry skin and change every 72 hours FENTANYL 25 MCG/HR PT72 602907 FENTANYL Inactive ZITHROMAX 250 MG TAB 2 po today, then 1 po q days 2-5 ZITHROMAX 250 MG TAB 3008788 AZITHROMYCIN Inactive Vital Signs Date Name Value [...] Panel - Chemistry sodium, serum 133 mmol/L 080-009 1127/08/24 potassium, serum 4.4 mmol/L 3.5-5.2 chloride, serum 95 mmol/L 98-107 carbon dioxide, venous blood 33.0 mmol/L 21.0-32.0 blood glucose 107 mg/dL 65-110 calcium, serum 8.8 mg/dL 8.5-10.1 urea nitrogen, blood 12 mg/dL 7-18 creatinine, serum 0.69 mg/dL 0.55-1.30 Lab Report: CBC, Basic Metabolic Panel - Chemistry sodium, serum 132 mmol/L 980-469 6484/10/12 potassium, serum 4.7 mmol/L 3.5-5.2 chloride, serum [...] CBC - Chemistry sodium, serum 136 mmol/L 797-427 5618/11/01 carbon dioxide, venous blood 32.1 mmol/L 21.0-32.0 [...] ... - Chemistry cholesterol, serum 195 mg/dL 958-877 4478/12/02 triglyceride, serum, fasting 74 mg/dL 30-200 HDL cholesterol, serum 52 mg/dL 32-96 LDL cholesterol, serum 128 mg/dL 0-130 sodium, serum 134 mmol/L 767-172 8344/12/02 carbon dioxide, venous blood 30.3 mmol/L 21.0-32.0 [...] 5.0-8.5 Encounters Code Encounter Date Provider Facility CPT-52861 Level 3 Est. Patient 10:34:55 CDT Gareth Cancino MD [facility]-26637 Level 4 Est. Patient 09:00:18 CDT Gareth Cancino MD [facility]-63175 Level 3 Est. Patient 15:12:03 CDT Gareth Cancino MD [facility]-32533 Level 3 Est. Patient 23:08:20 CDT Gareth Cancino MD [facility]-60825 Level 4 Est. Patient 20:40:10 CDT Gareth Cancino MD [facility] CPT-86667 Level 4 Est. Patient 19:50:11 CDT Gareth Cancino MD [facility] CPT-05634 Level 3 Est. Patient 11:00:13 CDT Gareth Cancino MD [facility] CPT-83330 Level 4 Est. Patient 11:20:21 CDT Gareth Cancino MD [facility] CPT-82525 Level 4 Est. Patient 09:22:18 ASSISTANT COOK Gareth Cancino MD [facility] CPT-67947 Level 3 Est. Patient 09:48:04 CDT Gareth Cancino MD [facility] CPT-61497 Level 3 Est. Patient 10:13:16 CDT Gareth Cancino MD [facility] CPT-65203 Level 2 Est. Patient 18:36:56 CDT Gareth Cancino MD [facility] CPT-55207 Level 4 Est. Patient 13:50:53 CDT Gareth Cancino MD [facility] CPT-84317 Level 3 Est. Patient 14:58:33 ASSISTANT COOK Gareth Cancino MD [facility] CPT-45886 Level 4 Est. Patient 09:25:57 CDT Gareth Cancino MD [facility] CPT-86211 Level 3 Est. Patient 20:39:33 CDT Noman Edwards DO [facility] CPT-86621 Level 2 Est. Patient 13:17:39 CDT Gareth Cancino MD [facility] CPT-55028 Level 3 Est. Patient 13:37:20 CDT Gareth Cancino MD [facility] CPT-12725 Level 3 Est. Patient 18:09:08 CDT Gareth Cancino MD [facility] CPT-36621 Level 4 Est. Patient 09:59:07 CDT Gareth Cancino MD [facility] Procedures Code Procedure Name Date Entry Date Standard Description CPT-G0009 Administration of Pneumococcal Vaccine 11:42:53 ASSISTANT COOK CPT-00023 Prevnar 13 Intramuscular Suspension 11:42:53 ASSISTANT COOK 01/07 CPT-49828 First Vx - Ix admin for Medicare patients 11:39:44 ASSISTANT COOK CPT-12582 Fluzone High-Dose Intramuscular Suspension 11:39:44 ASSISTANT COOK CPT-78956 Prevnar 13 Intramuscular Suspension 09:29:52 ASSISTANT COOK 01/07 CPT-27271 CMP - LAB USE ONLY 16:31:15 CDT CPT-15088 CBC - LAB USE ONLY 16:31:14 CDT CPT-13104 Venipuncture Draw Fee 16:31:14 CDT CPT-06306 BMP - LAB USE ONLY 14:37:27 CDT CPT-41590 CBC - LAB USE ONLY 14:37:27 CDT CPT-66798 Venipuncture Draw Fee 14:37:27 CDT CPT-TCMM Transitional Care Mgmt-Moderate 14:43:38 CDT CPT-57918 Venipuncture Draw Fee 10:33:47 CDT CPT-51981 BMP - LAB USE ONLY 10:33:46 CDT CPT-Cryo Cryotherapy 15:12:03 CDT CPT-47094 LS spine AP and Lat - XRAY USE ONLY 10:31:51 CDT 07/27 CPT-23573 Punch biopsy 1 lsn 20:40:09 CDT CPT-G0008 Administration of Influenza Virus Vaccine 10:04:48 ASSISTANT COOK CPT-62821 Fluzone High-Dose Intramuscular Suspension 10:04:48 ASSISTANT COOK CPT-60241 Ribs unilat w PA chst min 3V 10:45:40 CDT CPT-LR Lesion Removal 13:14:55 CDT CPT-Cryo Cryotherapy 13:14:55 CDT CPT-92631 Venipuncture Draw Fee 10:25:49 CDT CPT-95145 Administration single or combination vaccine inc oral 13 :22:14 ASSISTANT COOK CPT-56011 Influenza High Dose age 65+ 13:22:14 ASSISTANT COOK
--- OUTSIDE RECORDS SUMMARY | 2016-12-06 08:27 | XMS REPORT | Clinical Summary ---
Author Author Admin, HILARIA Organization [facility] Address Unknown Phone Unavailable Allergies, Adverse [...] scrotum DYSPLASTIC NEVUS, FACE 216.3 Active Gareth Cnacino MD Benign neoplasm of skin of other [...] tab po qday for acid reflux. OMEPRAZOLE 74082098704 Active Gareth Cancino MD Active LEVAQUIN 500 MG TAB 1 tablet by mouth daily LEVOFLOXACIN 77888712509 No Longer Active Gareth Cancino MD Active ALEVE 220 MG TAB 2 tab po qd NAPROXEN SODIUM 84779414366 Active Gareth Cancino MD Active ASPIRIN 81 MG CHEW TAB 1 tablet by mouth daily ASPIRIN 01501074633 Active Gareth Cancino MD Active VENTOLIN HFA 108 (90 BASE) MCG/ACT AERS 1-2 puffs four times a day PRN shortness of breath ALBUTEROL SULFATE 62579880938 Active Gareth Cancino MD Active CENTRUM SILVER TABS 1 TAB PO DAILY MULTIPLE VITAMINS-MINERALS 88803090589 Active Gareth Cancino MD Active VITAMIN B12 100 MCG TABS 1 TAB PO DAILY CYANOCOBALAMIN 89219616020 Active Gareth Cancino MD Active CIPRO 500 MG TABS 1 TAB PO BID CIPROFLOXACIN HCL 81199610578 No Longer Active Gareth Cancino MD Active BACTRIM DS 800-160 MG TAB 1 tab by mouth twice daily TRIMETHOPRIM-SULFAMETHOXAZOLE 18794087647 No Longer Active Gareth Cancino MD Active METOPROLOL SUCCINATE 50 MG TB24 1 tablet by mouth daily METOPROLOL SUCCINATE 53503607084 Active Gareth Cancino MD Active PREDNISONE 20 MG TAB 1 tab po BID for 3 days, then 1 tab po qday for 3 days PREDNISONE 50805417252 No Longer Active Gareth Cancino MD Active FOLIC ACID 800 MCG TABS Take one by mouth daily FOLIC ACID 46539079269 No Longer Active Gareth Cancino MD Active VITAMIN B-6 250 MG TABS Take one by mouth daily PYRIDOXINE HCL 70635947735 No Longer Active Gareth Cancino MD Active B-12 1000 MCG CAPS Take one by mouth daily CYANOCOBALAMIN 80286318639 No Longer Active Gareth Cancino MD Active DOXYCYCLINE HYCLATE 100 MG CAP 1 cap by mouth twice daily DOXYCYCLINE HYCLATE 77217131883 No Longer Active Gareth Cancino MD Active PREDNISONE 20 MG TAB 1 po bid 3 days, then 1 po q day 3 days 2011 PREDNISONE 41746873316 No Longer Active Gareth Cancino MD Active CHANTIX STARTING MONTH RUBEN 0.5 MG X 11 & 1 MG X 42 TABS 0.5mg daily for 3 days , then 0.5mg BID for 4 days, then 1mg BID VARENICLINE TARTRATE 87033185771 No Longer Active Gareth Cancino MD Active ALPRAZOLAM 0.25 MG TAB 1/2 to 1 tablet by mouth qhs prn ALPRAZOLAM 27107122431 Active Gareth Cancino MD Active SIMVASTATIN 40 MG TABS Take one by mouth daily SIMVASTATIN 47052441201 Active Gareth Cancino MD Active TRIAMTERENE-HCTZ 37.5-25 MG CAPS Take one by mouth daily TRIAMTERENE- HCTZ 23335844351 Active Gareth Cancino MD Active OMEPRAZOLE 20 MG TBEC Take one by mouth daily OMEPRAZOLE 98083072783 Active Gareth Cancino MD Active CHANTIX STARTING [...] 3 days 2011 PREDNISONE 20 MG TAB 247760 PREDNISONE Inactive DOXYCYCLINE HYCLATE 100 MG CAP 1 cap by mouth twice daily DOXYCYCLINE HYCLATE 100 MG CAP 437966 DOXYCYCLINE HYCLATE Inactive B-12 1000 MCG CAPS Take one by mouth daily B-12 1000 MCG CAPS CYANOCOBALAMIN Inactive VITAMIN B-6 250 MG TABS Take one by mouth daily VITAMIN B-6 250 MG TABS PYRIDOXINE HCL Inactive FOLIC ACID 800 MCG TABS Take one by mouth daily FOLIC ACID 800 MCG TABS 582006 FOLIC ACID Inactive CIPRO 500 MG TABS 1 TAB PO BID CIPRO 500 MG TABS 729148 CIPROFLOXACIN HCL Inactive PREDNISONE 20 MG TAB 1 tab po BID for 3 days, then 1 tab po qday for 3 days PREDNISONE 20 MG TAB 178871 PREDNISONE Inactive BACTRIM DS 800-160 MG TAB 1 tab by mouth twice daily BACTRIM DS 800-160 MG TAB TRIMETHOPRIM-SULFAMETHOXAZOLE Inactive LEVAQUIN 500 MG TAB 1 tablet by mouth daily LEVAQUIN 500 MG TAB 441198 LEVOFLOXACIN Inactive Vital Signs Date Name Value [...] MICROALBUMIN - Chemistry sodium, serum 138 mmol/L 510-986 5812/09/10 potassium, serum 4.2 mmol/L 3.5-5.2 chloride, serum [...] 0.20 mg/dL 0.00-1.00 cholesterol, serum 153 mg/dL 231-150 8239/09/10 triglyceride, serum, fasting 69 mg/dL 30-200 HDL [...] % 11.6-14.8 platelet count 296 10^3/MM^3 10*3/mm3 890-297 5870/09/10 mean corpuscular volume, RBC 96 fL 80-97 [...] - Urinalysis glucose, urine, semiquantitative Negative Negative urobilinogen, urine, semiquantitative (dipstick) 0.2 Normal leukocyte esterase, urine, by dipstick Negative Negative nitrite, urine, semiquantitative Negative Negative appearance, urine Clear Clear specific gravity, urine 1.010 1.000-1.030 pH, urine, semiquantitative 7.5 5.0-8.5 glucose, urine, semiquantitative Negative Negative urine color Yellow Colorless;Lightyellow;Straw;Yellow ketones, urine, by test strip Negative Negative bilirubin, urine Negative Negative urobilinogen, urine, semiquantitative (dipstick) 0.2 Normal leukocyte esterase, urine, by dipstick Negative Negative nitrite, urine, semiquantitative Negative Negative appearance, urine Clear Clear specific gravity, urine 1.020 1.000-1.030 pH, urine, semiquantitative 6.5 5.0-8.5 urine color Yellow Colorless;Lightyellow;Straw;Yellow ketones, urine, by test strip Trace Negative bilirubin, urine 1+ Negative Office Visit: NAUSEA, UPPER ABD. DISCOMFORT - Chemistry cholesterol, target level 200 mg/dL LDL target level 100 mg/dL HDL cholesterol, serum, target level 40 mg/dL triglyceride, target level 150 mg/dL Encounters Code Encounter Date Provider Facility CPT-32477 Level 4 Est. Patient 09:22:18 CLAIM MANAGER Gareth Cancino MD [facility] CPT-94666 Level 3 Est. Patient 09:48:04 CDT Gareth Cancino MD [facility] CPT-81862 Level 3 Est. Patient 10:13:16 CDT Gareth Cancino MD [facility] CPT-83853 Level 2 Est. Patient 18:36:56 CDT Gareth Cancino MD [facility] CPT-13895 Level 4 Est. Patient 13:50:53 CDT Gareth Cancino MD [facility] CPT-76495 Level 3 Est. Patient 14:58:33 CLAIM MANAGER Gareth Cancino MD [facility] CPT-22145 Level 4 Est. Patient 09:25:57 CDT Gareth Cancino MD [facility] CPT-56077 Level 3 Est. Patient 20:39:33 CDT Noman Edwards DO [facility] CPT-09853 Level 2 Est. Patient 13:17:39 CDT Gareth Cancino MD [facility] CPT-51902 Level 3 Est. Patient 13:37:20 CDT Gareth Cancino MD [facility] CPT-79190 Level 3 Est. Patient 18:09:08 CDT Gareth Cancino MD [facility] CPT-11927 Level 4 Est. Patient 09:59:07 CDT Gareth Cancino MD [facility] Procedures Code Procedure Name Date Entry Date Standard Description CPT-G0008 Administration of Influenza Virus Vaccine 10:04:48 CLAIM MANAGER CPT-32506 Fluzone High-Dose Intramuscular Suspension 10:04:48 CLAIM MANAGER CPT-02004 Ribs unilat w PA chst min 3V 10:45:40 CDT CPT-LR Lesion Removal 13:14:55 CDT CPT-Cryo Cryotherapy 13:14:55 CDT CPT-06617 Venipuncture Draw Fee 10:25:49 CDT CPT-34978 Administration single or combination vaccine inc oral 13 :22:14 CLAIM MANAGER CPT-05954 Influenza High Dose age 65+ 13:22:14 CLAIM MANAGER
--- OUTSIDE RECORDS SUMMARY | 2016-12-06 08:28 | XMS REPORT | Clinical Summary ---
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 Urinary frequency Actinic keratosis 702.0 Active Gareth [...] hours as needed for bck pain HYDROCODONE-ACETAMINOPHEN 72404424056 No Longer Active Gareth Cancino MD Active FENTANYL 12 MCG/HR PT72 Apply to clean, dry skin and change every 72 hours FENTANYL 93490353173 Active Gareth Cancino MD Active ALPRAZOLAM 0.25 MG TAB 1 tablet by mouth q hs prn ALPRAZOLAM 39906653999 Active Graeth Cancino MD Active AZITHROMYCIN 250 MG ORAL TABS 1 tab daily AZITHROMYCIN 42580111908 No Longer Active Gareth Cancino MD Active ZITHROMAX 250 MG TAB 2 po today, then 1 po q days 2-5 AZITHROMYCIN 15460610402 No Longer Active Tangela Forte Active IPRATROPIUM-ALBUTEROL 0.5-2.5 (3) MG/3ML INH SOLN nebulize 1 vial every 6hrs prn shortness of breath IPRATROPIUM-ALBUTEROL 35288694530 Active Gareth Cancino MD Active FENTANYL 25 MCG/HR PT72 Apply to clean, dry skin and change every 72 hours FENTANYL 51095328195 No Longer Active Gareth Cancino MD Active WELLBUTRIN SR 150 MG ORAL [id number] take 1 tab po BID BUPROPION HCL 69177813295 No Longer Active Gareth Cancino MD Active ZOFRAN 4 MG ORAL TABS 1 by mouth every 6 hours prn nausea ONDANSETRON HCL 77875886578 Active Tangela Forte Active TRAMADOL HCL 50 MG TABS 1 po tid PRN TRAMADOL HCL 20977394847 Active Gareth Cancino MD Active ALPRAZOLAM 0.25 MG TAB 1/2 to 1 tablet by mouth qhs prn ALPRAZOLAM 34996280151 No Longer Active Gareth Cancino MD Active CLOBETASOL PROPIONATE 0.05 % CREA apply to hand rash bid CLOBETASOL PROPIONATE 00049737845 No Longer Active Gareth Cancino MD Active BACTROBAN 2 % CREAM Apply to affected area BID MUPIROCIN CALCIUM 88303190225 No Longer Active Gareth Cancino MD Active LISINOPRIL 20 MG TABS 1 tablet by mouth daily for high blood pressure 10/14 LISINOPRIL 10632461143 Active Gareth Cancino MD Active BACTRIM DS 800-160 MG TAB 1 tab by mouth twice daily TRIMETHOPRIM-SULFAMETHOXAZOLE 82815954098 No Longer Active Gareth Cancino MD Active METOPROLOL SUCCINATE ER 100 MG [id number] 1 pill by mouth daily, for blood pressure METOPROLOL SUCCINATE 46612628963 Active Gareth Cancino MD Active KEFLEX 500 MG CAP 1 po TID x 10 days CEPHALEXIN 46673728205 No Longer Active Blanca Castillo APRN Active METOPROLOL SUCCINATE 50 MG TB24 1 tablet by mouth daily METOPROLOL SUCCINATE 02894734520 No Longer Active Gareth Cancino MD Active OMEPRAZOLE 20 MG TBEC Take one by mouth daily OMEPRAZOLE 69839413069 No Longer Active Gareth Cancino MD Active OMEPRAZOLE 40 MG CPDR 1 tab po qday for acid reflux. OMEPRAZOLE 41913839152 Active Mary Shah APRN Active LEVAQUIN 500 MG TAB 1 tablet by mouth daily LEVOFLOXACIN 96463592149 No Longer Active Gareth Cancino MD Active ALEVE 220 MG TAB 2 tab po qd NAPROXEN SODIUM 80282113171 Active Gareth Cancino MD Active ASPIRIN 81 MG CHEW TAB 1 tablet by mouth daily ASPIRIN 09171187282 Active Gareth Cancino MD Active VENTOLIN HFA 108 (90 BASE) MCG/ACT AERS 1-2 puffs four times a day PRN shortness of breath ALBUTEROL SULFATE 69293246809 Active Mary Shah APRN Active CENTRUM SILVER TABS 1 TAB PO DAILY MULTIPLE VITAMINS-MINERALS 37776425691 Active Gareth Cancino MD Active VITAMIN B12 100 MCG TABS 1 TAB PO DAILY CYANOCOBALAMIN 02473277003 Active Gareth Cancino MD Active CIPRO 500 MG TABS 1 TAB PO BID CIPROFLOXACIN HCL 56549242000 No Longer Active Gareth Cancino MD Active BACTRIM DS 800-160 MG TAB 1 tab by mouth twice daily TRIMETHOPRIM-SULFAMETHOXAZOLE 30668904151 No Longer Active Gareth Cancino MD Active PREDNISONE 20 MG TAB 1 tab po BID for 3 days, then 1 tab po qday for 3 days PREDNISONE 14477017058 No Longer Active Gareth Cancino MD Active FOLIC ACID 800 MCG TABS Take one by mouth daily FOLIC ACID 33556887884 No Longer Active Gareth Cancino MD Active VITAMIN B-6 250 MG TABS Take one by mouth daily PYRIDOXINE HCL 89024397432 No Longer Active Gareth Cancino MD Active B-12 1000 MCG CAPS Take one by mouth daily CYANOCOBALAMIN 07648304873 No Longer Active Gareth Cancino MD Active DOXYCYCLINE HYCLATE 100 MG CAP 1 cap by mouth twice daily DOXYCYCLINE HYCLATE 71071189895 No Longer Active Gareth Cancino MD Active PREDNISONE 20 MG TAB 1 po bid 3 days, then 1 po q day 3 days 2011 PREDNISONE 69958365517 No Longer Active Gareth Cancino MD Active CHANTIX STARTING MONTH RUBEN 0.5 MG X 11 & 1 MG X 42 TABS 0.5mg daily for 3 days , then 0.5mg BID for 4 days, then 1mg BID VARENICLINE TARTRATE 82556441123 No Longer Active Gareth Cancino MD Active SIMVASTATIN 40 MG TABS Take one by mouth daily SIMVASTATIN 61942992756 Active Gareth Cancino MD Active TRIAMTERENE-HCTZ 37.5-25 MG CAPS Take one by mouth daily TRIAMTERENE- HCTZ 54310780107 Active Gareth Cancino MD Active CHANTIX STARTING [...] 3 days 2011 PREDNISONE 20 MG TAB 031838 PREDNISONE Inactive DOXYCYCLINE HYCLATE 100 MG CAP 1 cap by mouth twice daily DOXYCYCLINE HYCLATE 100 MG CAP 9091338 DOXYCYCLINE HYCLATE Inactive B-12 1000 MCG CAPS Take one by mouth daily B-12 1000 MCG CAPS CYANOCOBALAMIN Inactive VITAMIN B-6 250 MG TABS Take one by mouth daily VITAMIN B-6 250 MG TABS PYRIDOXINE HCL Inactive FOLIC ACID 800 MCG TABS Take one by mouth daily FOLIC ACID 800 MCG TABS 524999 FOLIC ACID Inactive CIPRO 500 MG TABS 1 TAB PO BID CIPRO 500 MG TABS 016753 CIPROFLOXACIN HCL Inactive OMEPRAZOLE 20 MG TBEC Take one by mouth daily OMEPRAZOLE 20 MG TBEC 301254 OMEPRAZOLE Inactive METOPROLOL SUCCINATE 50 MG TB24 1 tablet by mouth daily METOPROLOL SUCCINATE 50 MG TB24 METOPROLOL SUCCINATE Inactive BACTROBAN 2 % CREAM Apply to affected area BID BACTROBAN 2 % CREAM 627340 MUPIROCIN CALCIUM Inactive CLOBETASOL PROPIONATE 0.05 % CREA apply to hand rash bid CLOBETASOL PROPIONATE 0.05 % CREA 921551 CLOBETASOL PROPIONATE Inactive ALPRAZOLAM 0.25 MG TAB 1/2 to 1 tablet by mouth qhs prn ALPRAZOLAM 0.25 MG TAB 955330 ALPRAZOLAM Inactive WELLBUTRIN SR 150 MG ORAL [id number] take 1 tab po BID WELLBUTRIN SR 150 MG ORAL [id number] BUPROPION HCL Inactive AZITHROMYCIN 250 MG ORAL TABS 1 tab daily AZITHROMYCIN 250 MG ORAL TABS 1580380 AZITHROMYCIN Inactive HYDROCODONE-ACETAMINOPHEN 5-325 MG TABS 1 tab by mouth every 6 hours as needed for bck pain HYDROCODONE-ACETAMINOPHEN 5-325 MG TABS 782484 HYDROCODONE-ACETAMINOPHEN Inactive PREDNISONE 20 MG TAB 1 tab po BID for 3 days, then 1 tab po qday for 3 days PREDNISONE 20 MG TAB 802068 PREDNISONE Inactive BACTRIM DS 800-160 MG TAB 1 tab by mouth twice daily BACTRIM DS 800-160 MG TAB 300213 TRIMETHOPRIM-SULFAMETHOXAZOLE Inactive LEVAQUIN 500 MG TAB 1 tablet by mouth daily LEVAQUIN 500 MG TAB 171725 LEVOFLOXACIN Inactive KEFLEX 500 MG CAP 1 po TID x 10 days KEFLEX 500 MG CAP 985872 CEPHALEXIN Inactive BACTRIM DS 800-160 MG TAB 1 tab by mouth twice daily BACTRIM DS 800-160 MG TAB 392990 TRIMETHOPRIM-SULFAMETHOXAZOLE Inactive FENTANYL 25 MCG/HR PT72 Apply to clean, dry skin and change every 72 hours FENTANYL 25 MCG/HR PT72 283857 FENTANYL Inactive ZITHROMAX 250 MG TAB 2 po today, then 1 po q days 2-5 ZITHROMAX 250 MG TAB 5342273 AZITHROMYCIN Inactive Vital Signs Date Name Value [...] Panel - Chemistry sodium, serum 133 mmol/L 984-787 9317/08/24 potassium, serum 4.4 mmol/L 3.5-5.2 chloride, serum 95 mmol/L 98-107 carbon dioxide, venous blood 33.0 mmol/L 21.0-32.0 blood glucose 107 mg/dL 65-110 calcium, serum 8.8 mg/dL 8.5-10.1 urea nitrogen, blood 12 mg/dL 7-18 creatinine, serum 0.69 mg/dL 0.55-1.30 Lab Report: CBC, Basic Metabolic Panel - Chemistry sodium, serum 132 mmol/L 289-631 1333/10/12 potassium, serum 4.7 mmol/L 3.5-5.2 chloride, serum [...] CBC - Chemistry sodium, serum 136 mmol/L 522-603 4171/11/01 carbon dioxide, venous blood 32.1 mmol/L 21.0-32.0 [...] ... - Chemistry cholesterol, serum 195 mg/dL 508-158 3124/12/02 triglyceride, serum, fasting 74 mg/dL 30-200 HDL cholesterol, serum 52 mg/dL 32-96 LDL cholesterol, serum 128 mg/dL 0-130 sodium, serum 134 mmol/L 048-534 9914/12/02 carbon dioxide, venous blood 30.3 mmol/L 21.0-32.0 [...] 5.0-8.5 Encounters Code Encounter Date Provider Facility CPT-48517 Level 3 Est. Patient 10:34:55 CDT Gareth Cancino MD [facility]-93463 Level 4 Est. Patient 09:00:18 CDT Gareth Cancino MD [facility]-72379 Level 3 Est. Patient 15:12:03 CDT Gareth Cancino MD [facility]-30973 Level 3 Est. Patient 23:08:20 CDT Gareth Cancino MD [facility]-07607 Level 4 Est. Patient 20:40:10 CDT Gareth Cancino MD [facility] CPT-67880 Level 4 Est. Patient 19:50:11 CDT Gareth Cancino MD [facility] CPT-52958 Level 3 Est. Patient 11:00:13 CDT Gareth Cancino MD [facility] CPT-27386 Level 4 Est. Patient 11:20:21 CDT Gareth Cancino MD [facility] CPT-56805 Level 4 Est. Patient 09:22:18 MANAGER FINE DINING Gareth Cancino MD [facility] CPT-71664 Level 3 Est. Patient 09:48:04 CDT Gareth Cancino MD [facility] CPT-05624 Level 3 Est. Patient 10:13:16 CDT Gareth Cancino MD [facility] CPT-52996 Level 2 Est. Patient 18:36:56 CDT Gareth Cancino MD [facility] CPT-60861 Level 4 Est. Patient 13:50:53 CDT Gareth Cancino MD [facility] CPT-22290 Level 3 Est. Patient 14:58:33 MANAGER FINE DINING Gareth Cancino MD [facility] CPT-65147 Level 4 Est. Patient 09:25:57 CDT Gareth Cancino MD [facility] CPT-83224 Level 3 Est. Patient 20:39:33 CDT Noman Edwards DO [facility] CPT-56492 Level 2 Est. Patient 13:17:39 CDT Gareth Cancino MD [facility] CPT-02643 Level 3 Est. Patient 13:37:20 CDT Gareth Cancino MD [facility] CPT-35992 Level 3 Est. Patient 18:09:08 CDT Gareth Cancino MD [facility] CPT-26391 Level 4 Est. Patient 09:59:07 CDT Gareth Cancino MD [facility] Procedures Code Procedure Name Date Entry Date Standard Description CPT-G0009 Administration of Pneumococcal Vaccine 11:42:53 MANAGER FINE DINING CPT-78165 Prevnar 13 Intramuscular Suspension 11:42:53 MANAGER FINE DINING 01/07 CPT-54150 First Vx - Ix admin for Medicare patients 11:39:44 MANAGER FINE DINING CPT-57318 Fluzone High-Dose Intramuscular Suspension 11:39:44 MANAGER FINE DINING CPT-62832 Prevnar 13 Intramuscular Suspension 09:29:52 MANAGER FINE DINING 01/07 CPT-02124 CMP - LAB USE ONLY 16:31:15 CDT CPT-99782 CBC - LAB USE ONLY 16:31:14 CDT CPT-37170 Venipuncture Draw Fee 16:31:14 CDT CPT-84772 BMP - LAB USE ONLY 14:37:27 CDT CPT-53800 CBC - LAB USE ONLY 14:37:27 CDT CPT-28204 Venipuncture Draw Fee 14:37:27 CDT CPT-TCMM Transitional Care Mgmt-Moderate 14:43:38 CDT CPT-59711 Venipuncture Draw Fee 10:33:47 CDT CPT-78795 BMP - LAB USE ONLY 10:33:46 CDT CPT-Cryo Cryotherapy 15:12:03 CDT CPT-33959 LS spine AP and Lat - XRAY USE ONLY 10:31:51 CDT 07/27 CPT-13122 Punch biopsy 1 lsn 20:40:09 CDT CPT-G0008 Administration of Influenza Virus Vaccine 10:04:48 MANAGER FINE DINING CPT-53120 Fluzone High-Dose Intramuscular Suspension 10:04:48 MANAGER FINE DINING CPT-19558 Ribs unilat w PA chst min 3V 10:45:40 CDT CPT-LR Lesion Removal 13:14:55 CDT CPT-Cryo Cryotherapy 13:14:55 CDT CPT-64183 Venipuncture Draw Fee 10:25:49 CDT CPT-86028 Administration single or combination vaccine inc oral 13 :22:14 MANAGER FINE DINING CPT-70825 Influenza High Dose age 65+ 13:22:14 MANAGER FINE DINING
--- OUTSIDE RECORDS SUMMARY | 2016-12-06 08:29 | XMS REPORT | Clinical Summary ---
Author Author Admin, HILARIA Organization [employer] Address Unknown Phone Unavailable Allergies, Adverse Reactions, [...] Inactive Gareth Cancino MD Folliculitis ICD-704.8 Inactive Gareht Cancino MD Frequency of urination ICD-788.41 Inactive [...] 1/2 tab daily for 4 days PREDNISONE 95586893078 Active Mary Pablo DIRECTOR OF DESIGN Active LEVAQUIN 500 MG TAB 1 tablet by mouth daily for 7 days LEVOFLOXACIN 53397770841 Active Mary Shah APRN Active AZITHROMYCIN 250 MG TABS 2 po qd x 1 day, then 1 po qd x 4 days AZITHROMYCIN 81898467753 No Longer Active Danuta Modi Active AZITHROMYCIN 250 MG TABS 2 po qd x 1 day, then 1 po qd x 4 days AZITHROMYCIN 30297677775 No Longer Active Tangela Forte Active HYDROCODONE-ACETAMINOPHEN 5-325 MG TABS 1 tab by mouth every 6 hours as needed for bck pain HYDROCODONE-ACETAMINOPHEN 43784863144 No Longer Active Gareth Cancino MD Active FENTANYL 12 MCG/HR PT72 Apply to clean, dry skin and change every 72 hours FENTANYL 98585469729 Active Gareth Cancino MD Active ALPRAZOLAM 0.25 MG TAB 1 tablet by mouth q hs prn ALPRAZOLAM 49138165807 Active Gareth Cancino MD Active AZITHROMYCIN 250 MG ORAL TABS 1 tab daily AZITHROMYCIN 26837715377 No Longer Active Gareth Cancino MD Active ZITHROMAX 250 MG TAB 2 po today, then 1 po q days 2-5 AZITHROMYCIN 37476503514 No Longer Active Tangela Forte Active IPRATROPIUM-ALBUTEROL 0.5-2.5 (3) MG/3ML INH SOLN nebulize 1 vial every 6hrs prn shortness of breath IPRATROPIUM-ALBUTEROL 66025071758 Active Gareth Cancino MD Active FENTANYL 25 MCG/HR PT72 Apply to clean, dry skin and change every 72 hours FENTANYL 53703953004 No Longer Active Gareth Cancino MD Active WELLBUTRIN SR 150 MG ORAL [id number] take 1 tab po BID BUPROPION HCL 13353880791 No Longer Active Gareth Cancino MD Active ZOFRAN 4 MG ORAL TABS 1 by mouth every 6 hours prn nausea ONDANSETRON HCL 11686750949 Active Tangela Forte Active TRAMADOL HCL 50 MG TABS 1 po tid PRN TRAMADOL HCL 25785582546 Active Gareth Cancino MD Active ALPRAZOLAM 0.25 MG TAB 1/2 to 1 tablet by mouth qhs prn ALPRAZOLAM 18924195316 No Longer Active Gareth Cancino MD Active CLOBETASOL PROPIONATE 0.05 % CREA apply to hand rash bid CLOBETASOL PROPIONATE 83900622885 No Longer Active Gareth Cancino MD Active BACTROBAN 2 % CREAM Apply to affected area BID MUPIROCIN CALCIUM 81113376275 No Longer Active Gareth Cancino MD Active LISINOPRIL 20 MG TABS 1 tablet by mouth daily for high blood pressure 10/14 LISINOPRIL 20125285562 Active Gareth Cancino MD Active BACTRIM DS 800-160 MG TAB 1 tab by mouth twice daily TRIMETHOPRIM-SULFAMETHOXAZOLE 09111656215 No Longer Active Gareth Cancino MD Active METOPROLOL SUCCINATE ER 100 MG [id number] 1 pill by mouth daily, for blood pressure METOPROLOL SUCCINATE 93096210133 Active Gareth Cancino MD Active KEFLEX 500 MG CAP 1 po TID x 10 days CEPHALEXIN 80549465934 No Longer Active Blanca Casitllo APRN Active METOPROLOL SUCCINATE 50 MG TB24 1 tablet by mouth daily METOPROLOL SUCCINATE 43127933068 No Longer Active Gareth Cancino MD Active OMEPRAZOLE 20 MG TBEC Take one by mouth daily OMEPRAZOLE 49813520649 No Longer Active Gareth Cancino MD Active OMEPRAZOLE 40 MG CPDR 1 tab po qday for acid reflux. OMEPRAZOLE 75294996583 Active Mary Shah APRN Active LEVAQUIN 500 MG TAB 1 tablet by mouth daily LEVOFLOXACIN 95392739665 No Longer Active Gareth Cancino MD Active ALEVE 220 MG TAB 2 tab po qd NAPROXEN SODIUM 57164852799 Active Gareth Cancino MD Active ASPIRIN 81 MG CHEW TAB 1 tablet by mouth daily ASPIRIN 90932910942 Active Gareth Cancino MD Active VENTOLIN HFA 108 (90 BASE) MCG/ACT AERS 1-2 puffs four times a day PRN shortness of breath ALBUTEROL SULFATE 81153464444 Active Mary Shah DIRECTOR OF DESIGN Active CENTRUM SILVER TABS 1 TAB PO DAILY MULTIPLE VITAMINS-MINERALS 60594609203 Active Gareth Cancino MD Active VITAMIN B12 100 MCG TABS 1 TAB PO DAILY CYANOCOBALAMIN 56820801768 Active Gareth Cancino MD Active CIPRO 500 MG TABS 1 TAB PO BID CIPROFLOXACIN HCL 48498936404 No Longer Active Gareth Cancino MD Active BACTRIM DS 800-160 MG TAB 1 tab by mouth twice daily TRIMETHOPRIM-SULFAMETHOXAZOLE 42645224050 No Longer Active Gareth Cancino MD Active PREDNISONE 20 MG TAB 1 tab po BID for 3 days, then 1 tab po qday for 3 days PREDNISONE 72385364736 No Longer Active Gareth Cancino MD Active FOLIC ACID 800 MCG TABS Take one by mouth daily FOLIC ACID 69510043257 No Longer Active Gaerth Cancino MD Active VITAMIN B-6 250 MG TABS Take one by mouth daily PYRIDOXINE HCL 91040423381 No Longer Active Gareth Cancino MD Active B-12 1000 MCG CAPS Take one by mouth daily CYANOCOBALAMIN 05680785061 No Longer Active Gareth Cancino MD Active DOXYCYCLINE HYCLATE 100 MG CAP 1 cap by mouth twice daily DOXYCYCLINE HYCLATE 25003894615 No Longer Active Gareth Cancino MD Active PREDNISONE 20 MG TAB 1 po bid 3 days, then 1 po q day 3 days 2011 PREDNISONE 46608804541 No Longer Active Gareth Cancino MD Active CHANTIX STARTING MONTH RUBEN 0.5 MG X 11 & 1 MG X 42 TABS 0.5mg daily for 3 days , then 0.5mg BID for 4 days, then 1mg BID VARENICLINE TARTRATE 29236253835 No Longer Active Gareth Cancino MD Active SIMVASTATIN 40 MG TABS Take one by mouth daily SIMVASTATIN 12212831955 Active Gareth Cancino MD Active TRIAMTERENE-HCTZ 37.5-25 MG CAPS Take one by mouth daily TRIAMTERENE- HCTZ 92163203682 Active Gareth Cancino MD Active CHANTIX STARTING [...] 3 days 2011 PREDNISONE 20 MG TAB 860842 PREDNISONE Inactive DOXYCYCLINE HYCLATE 100 MG CAP 1 cap by mouth twice daily DOXYCYCLINE HYCLATE 100 MG CAP 5982199 DOXYCYCLINE HYCLATE Inactive B-12 1000 MCG CAPS Take one by mouth daily B-12 1000 MCG CAPS CYANOCOBALAMIN Inactive VITAMIN B-6 250 MG TABS Take one by mouth daily VITAMIN B-6 250 MG TABS PYRIDOXINE HCL Inactive FOLIC ACID 800 MCG TABS Take one by mouth daily FOLIC ACID 800 MCG TABS 539342 FOLIC ACID Inactive CIPRO 500 MG TABS 1 TAB PO BID CIPRO 500 MG TABS 909731 CIPROFLOXACIN HCL Inactive OMEPRAZOLE 20 MG TBEC Take one by mouth daily OMEPRAZOLE 20 MG TBEC 419651 OMEPRAZOLE Inactive METOPROLOL SUCCINATE 50 MG TB24 1 tablet by mouth daily METOPROLOL SUCCINATE 50 MG TB24 METOPROLOL SUCCINATE Inactive BACTROBAN 2 % CREAM Apply to affected area BID BACTROBAN 2 % CREAM 618234 MUPIROCIN CALCIUM Inactive CLOBETASOL PROPIONATE 0.05 % CREA apply to hand rash bid CLOBETASOL PROPIONATE 0.05 % CREA 552667 CLOBETASOL PROPIONATE Inactive ALPRAZOLAM 0.25 MG TAB 1/2 to 1 tablet by mouth qhs prn ALPRAZOLAM 0.25 MG TAB 910980 ALPRAZOLAM Inactive WELLBUTRIN SR 150 MG ORAL [id number] take 1 tab po BID WELLBUTRIN SR 150 MG ORAL [id number] BUPROPION HCL Inactive AZITHROMYCIN 250 MG ORAL TABS 1 tab daily AZITHROMYCIN 250 MG ORAL TABS 8542251 AZITHROMYCIN Inactive HYDROCODONE-ACETAMINOPHEN 5-325 MG TABS 1 tab by mouth every 6 hours as needed for bck pain HYDROCODONE-ACETAMINOPHEN 5-325 MG TABS 644137 HYDROCODONE-ACETAMINOPHEN Inactive PREDNISONE 20 MG TAB 1 tab po BID for 3 days, then 1 tab po qday for 3 days PREDNISONE 20 MG TAB 862135 PREDNISONE Inactive BACTRIM DS 800-160 MG TAB 1 tab by mouth twice daily BACTRIM DS 800-160 MG TAB 139302 TRIMETHOPRIM-SULFAMETHOXAZOLE Inactive LEVAQUIN 500 MG TAB 1 tablet by mouth daily LEVAQUIN 500 MG TAB 669638 LEVOFLOXACIN Inactive KEFLEX 500 MG CAP 1 po TID x 10 days KEFLEX 500 MG CAP 821180 CEPHALEXIN Inactive BACTRIM DS 800-160 MG TAB 1 tab by mouth twice daily BACTRIM DS 800-160 MG TAB 19820425 TRIMETHOPRIM-SULFAMETHOXAZOLE Inactive FENTANYL 25 MCG/HR PT72 Apply to clean, dry skin and change every 72 hours FENTANYL 25 MCG/HR PT72 839100 FENTANYL Inactive ZITHROMAX 250 MG TAB 2 po today, then 1 po q days 2-5 ZITHROMAX 250 MG TAB 7691449 AZITHROMYCIN Inactive AZITHROMYCIN 250 MG TABS 2 po qd x 1 day, then 1 po qd x 4 days AZITHROMYCIN 250 MG TABS 1692287 AZITHROMYCIN Inactive AZITHROMYCIN 250 MG TABS 2 po qd x 1 day, then 1 po qd x 4 days AZITHROMYCIN 250 MG TABS 9316354 AZITHROMYCIN Inactive Vital Signs Date Name Value [...] Panel - Chemistry sodium, serum 133 mmol/L 073-377 1450/08/24 potassium, serum 4.4 mmol/L 3.5-5.2 chloride, serum 95 mmol/L 98-107 carbon dioxide, venous blood 33.0 mmol/L 21.0-32.0 blood glucose 107 mg/dL 65-110 calcium, serum 8.8 mg/dL 8.5-10.1 urea nitrogen, blood 12 mg/dL 7-18 creatinine, serum 0.69 mg/dL 0.55-1.30 Lab Report: CBC, Basic Metabolic Panel - Chemistry sodium, serum 132 mmol/L 176-928 5074/10/12 potassium, serum 4.7 mmol/L 3.5-5.2 chloride, serum [...] CBC - Chemistry sodium, serum 136 mmol/L 733-111 6253/11/01 carbon dioxide, venous blood 32.1 mmol/L 21.0-32.0 [...] Negative Encounters Code Encounter Date Provider Facility CPT-30026 Level 3 Est. Patient 20:53:25 CLAIMS ADMINISTRATOR Gareth Cancino MD [facility] CPT-79992 Level 3 Est. Patient 10:34:55 CDT Gareth Cancino MD [facility]-55858 Level 4 Est. Patient 09:00:18 CDT Gareth Cancino MD [facility] CPT-60376 Level 3 Est. Patient 15:12:03 CDT Gareth Cancino MD [facility] CPT-03330 Level 3 Est. Patient 23:08:20 CDT Gareth Cancino MD [facility] CPT-28043 Level 4 Est. Patient 20:40:10 CDT Gareth Cancino MD [facility] CPT-25281 Level 4 Est. Patient 19:50:11 CDT Gareth Cancino MD [facility] CPT-09242 Level 3 Est. Patient 11:00:13 CDT Gareth Cancino MD [facility] CPT-28367 Level 4 Est. Patient 11:20:21 CDT Gareth Cancino MD [facility] CPT-84229 Level 4 Est. Patient 09:22:18 CLAIMS ADMINISTRATOR Gareth Cancino MD [facility] CPT-29926 Level 3 Est. Patient 09:48:04 CDT Gareth Cancino MD [facility] CPT-64174 Level 3 Est. Patient 10:13:16 CDT Gareth Cancino MD [facility] CPT-96085 Level 2 Est. Patient 18:36:56 CDT Gareth Cancino MD [facility] CPT-17974 Level 4 Est. Patient 13:50:53 CDT Gareth Cancino MD [facility] CPT-79767 Level 3 Est. Patient 14:58:33 CLAIMS ADMINISTRATOR Gareth Cancino MD [facility] CPT-63440 Level 4 Est. Patient 09:25:57 CDT Gareth Cancino MD [facility] CPT-73034 Level 3 Est. Patient 20:39:33 CDT Noman Edwards DO [facility] CPT-60997 Level 2 Est. Patient 13:17:39 CDT Gareth Cancino MD [facility] CPT-68236 Level 3 Est. Patient 13:37:20 CDT Gareth Cancino MD [facility] CPT-82796 Level 3 Est. Patient 18:09:08 CDT Gareth Cancino MD [facility] CPT-76185 Level 4 Est. Patient 09:59:07 CDT Gareth Cancino MD [facility] Procedures Code Procedure Name Date Entry Date Standard Description CPT-000 Give Appropriate Flu Vaccine 09:29:52 CLAIMS ADMINISTRATOR CPT-000 Give Appropriate Flu Vaccine 09:22:20 CLAIMS ADMINISTRATOR CPT-25106 TSH - LAB USE ONLY 08:11:40 CLAIMS ADMINISTRATOR CPT-61519 Free T4 - LAB USE ONLY 08:11:40 CLAIMS ADMINISTRATOR CPT-89657 Venipuncture Draw Fee 08:11:40 CLAIMS ADMINISTRATOR CPT-70747 UA w micro - LAB USE ONLY 14:26:22 CLAIMS ADMINISTRATOR CPT-G0438 Initial Annual Wellness Exam 20:53:25 CLAIMS ADMINISTRATOR CPT-G0009 Administration of Pneumococcal Vaccine 11:42:53 CLAIMS ADMINISTRATOR CPT-62502 Prevnar 13 Intramuscular Suspension 11:42:53 CLAIMS ADMINISTRATOR 01/07 CPT-07650 First Vx - Ix admin for Medicare patients 11:39:44 CLAIMS ADMINISTRATOR CPT-82956 Fluzone High-Dose Intramuscular Suspension 11:39:44 CLAIMS ADMINISTRATOR CPT-65819 Prevnar 13 Intramuscular Suspension 09:29:52 CLAIMS ADMINISTRATOR 01/07 CPT-12920 CMP - LAB USE ONLY 16:31:15 CDT CPT-91268 CBC - LAB USE ONLY 16:31:14 CDT CPT-64634 Venipuncture Draw Fee 16:31:14 CDT CPT-51596 BMP - LAB USE ONLY 14:37:27 CDT CPT-87322 CBC - LAB USE ONLY 14:37:27 CDT CPT-02149 Venipuncture Draw Fee 14:37:27 CDT CPT-TCMM Transitional Care Mgmt-Moderate 14:43:38 CDT CPT-38398 Venipuncture Draw Fee 10:33:47 CDT CPT-04182 BMP - LAB USE ONLY 10:33:46 CDT CPT-Cryo Cryotherapy 15:12:03 CDT CPT-02553 LS spine AP and Lat - XRAY USE ONLY 10:31:51 CDT 07/27 CPT-13389 Punch biopsy 1 lsn 20:40:09 CDT CPT-G0008 Administration of Influenza Virus Vaccine 10:04:48 CLAIMS ADMINISTRATOR CPT-96959 Fluzone High-Dose Intramuscular Suspension 10:04:48 CLAIMS ADMINISTRATOR CPT-54739 Ribs unilat w PA chst min 3V 10:45:40 CDT CPT-LR Lesion Removal 13:14:55 CDT CPT-Cryo Cryotherapy 13:14:55 CDT CPT-14453 Venipuncture Draw Fee 10:25:49 CDT CPT-29543 Administration single or combination vaccine inc oral 13 :22:14 CLAIMS ADMINISTRATOR CPT-14761 Influenza High Dose age 65+ 13:22:14 CLAIMS ADMINISTRATOR
[2016-12-06] MEDS ORDERED: BACITRACIN 100,000 UNIT/NS 1000 ML POUR BOTTLE IR ONE ×2 (08:30)
[2016-12-06] MEDS ORDERED: ceFAZolin 2 GM/NS 50 ML IV ONE (08:30)
--- OUTSIDE RECORDS SUMMARY | 2016-12-06 08:30 | XMS REPORT | Clinical Summary ---
Author Author Admin, HILARIA Organization [facility] [employer] Address Unknown Phone Unavailable Allergies, Adverse Reactions, [...] cause Skin lesion 709.9 Active Blanca Castillo PAPER SLITTER Unspecified disorder of skin and subcutaneous tissue Folliculitis 704.8 Active Gareth Cancino MD Other specified diseases of hair and hair follicles Low back pain, chronic 724.2 Active Gareth Cancino MD Lumbago Frequency of urination 788.41 Active Negin Garcia DIRECTOR PACKAGING Urinary frequency Actinic keratosis 702.0 Active Gareth [...] MG ORAL TABS 1 tab daily AZITHROMYCIN 43276400175 No Longer Active Gareth Cancino MD Active ZITHROMAX 250 MG TAB 2 po today, then 1 po q days 2-5 AZITHROMYCIN 46818070610 No Longer Active Tangela Forte Active IPRATROPIUM-ALBUTEROL 0.5-2.5 (3) MG/3ML INH SOLN nebulize 1 vial every 6hrs prn shortness of breath IPRATROPIUM-ALBUTEROL 23322874575 Active Gareth Cancino MD Active FENTANYL 25 MCG/HR PT72 Apply to clean, dry skin and change every 72 hours FENTANYL 96685326788 Active Gareth Cancino MD Active WELLBUTRIN SR 150 MG ORAL [id number] take 1 tab po BID BUPROPION HCL 06753558551 No Longer Active Gareth Cancino MD Active ZOFRAN 4 MG ORAL TABS 1 by mouth every 6 hours prn nausea ONDANSETRON HCL 40255466691 Active Tangela Forte Active TRAMADOL HCL 50 MG TABS 1 po tid PRN TRAMADOL HCL 21894172351 Active Gareth Cancino MD Active HYDROCODONE-ACETAMINOPHEN 5-325 MG TABS 1 tab by mouth every 6 hours as needed for bck pain HYDROCODONE-ACETAMINOPHEN 90143117076 Active Gareth Cancino MD Active ALPRAZOLAM 0.25 MG TAB 1/2 to 1 tablet by mouth qhs prn ALPRAZOLAM 92569256815 No Longer Active Gareth Cancino MD Active CLOBETASOL PROPIONATE 0.05 % CREA apply to hand rash bid CLOBETASOL PROPIONATE 04313586564 No Longer Active Gareth Cancino MD Active BACTROBAN 2 % CREAM Apply to affected area BID MUPIROCIN CALCIUM 54215351397 No Longer Active Gareth Cancino MD Active LISINOPRIL 20 MG TABS 1 tablet by mouth daily for high blood pressure 10/14 LISINOPRIL 27775003975 Active Gareth Cancino MD Active BACTRIM DS 800-160 MG TAB 1 tab by mouth twice daily TRIMETHOPRIM-SULFAMETHOXAZOLE 11680856685 No Longer Active Gaerth Cancino MD Active METOPROLOL SUCCINATE ER 100 MG [id number] 1 pill by mouth daily, for blood pressure METOPROLOL SUCCINATE 95999046553 Active Gareth Cancino MD Active KEFLEX 500 MG CAP 1 po TID x 10 days CEPHALEXIN 61494898322 No Longer Active Blanca Castillo APRN Active METOPROLOL SUCCINATE 50 MG TB24 1 tablet by mouth daily METOPROLOL SUCCINATE 97722184104 No Longer Active Gareth Cancino MD Active OMEPRAZOLE 20 MG TBEC Take one by mouth daily OMEPRAZOLE 36590189549 No Longer Active Gareth Cancino MD Active OMEPRAZOLE 40 MG CPDR 1 tab po qday for acid reflux. OMEPRAZOLE 22472690105 Active Mary Shah APRN Active LEVAQUIN 500 MG TAB 1 tablet by mouth daily LEVOFLOXACIN 39084902849 No Longer Active Gareth Cancino MD Active ALEVE 220 MG TAB 2 tab po qd NAPROXEN SODIUM 39911950686 Active Gareth Cancino MD Active ASPIRIN 81 MG CHEW TAB 1 tablet by mouth daily ASPIRIN 31042352556 Active Gareth Cancino MD Active VENTOLIN HFA 108 (90 BASE) MCG/ACT AERS 1-2 puffs four times a day PRN shortness of breath ALBUTEROL SULFATE 21434986487 Active Mary Shah PAPER SLITTER Active CENTRUM SILVER TABS 1 TAB PO DAILY MULTIPLE VITAMINS-MINERALS 67204587782 Active Gareth Cancino MD Active VITAMIN B12 100 MCG TABS 1 TAB PO DAILY CYANOCOBALAMIN 66913680402 Active Gareth Cancino MD Active CIPRO 500 MG TABS 1 TAB PO BID CIPROFLOXACIN HCL 22116026431 No Longer Active Gareth Cancino MD Active BACTRIM DS 800-160 MG TAB 1 tab by mouth twice daily TRIMETHOPRIM-SULFAMETHOXAZOLE 94638900708 No Longer Active Gareth Cancino MD Active PREDNISONE 20 MG TAB 1 tab po BID for 3 days, then 1 tab po qday for 3 days PREDNISONE 48904422676 No Longer Active Gareth Cancino MD Active FOLIC ACID 800 MCG TABS Take one by mouth daily FOLIC ACID 64669681773 No Longer Active Gareth Cancino MD Active VITAMIN B-6 250 MG TABS Take one by mouth daily PYRIDOXINE HCL 08313258208 No Longer Active Gareth Cancino MD Active B-12 1000 MCG CAPS Take one by mouth daily CYANOCOBALAMIN 60717423952 No Longer Active Gareth Cancino MD Active DOXYCYCLINE HYCLATE 100 MG CAP 1 cap by mouth twice daily DOXYCYCLINE HYCLATE 36754107989 No Longer Active Gareth Cancino MD Active PREDNISONE 20 MG TAB 1 po bid 3 days, then 1 po q day 3 days 2011 PREDNISONE 25093880502 No Longer Active Gareth Cancino MD Active CHANTIX STARTING MONTH RUBEN 0.5 MG X 11 & 1 MG X 42 TABS 0.5mg daily for 3 days , then 0.5mg BID for 4 days, then 1mg BID VARENICLINE TARTRATE 51468069549 No Longer Active Gareth Cancino MD Active SIMVASTATIN 40 MG TABS Take one by mouth daily SIMVASTATIN 74574802671 Active Gareth Cancino MD Active TRIAMTERENE-HCTZ 37.5-25 MG CAPS Take one by mouth daily TRIAMTERENE- HCTZ 81343795781 Active Gareth Cancino MD Active CHANTIX STARTING [...] 3 days 2011 PREDNISONE 20 MG TAB 253686 PREDNISONE Inactive DOXYCYCLINE HYCLATE 100 MG CAP 1 cap by mouth twice daily DOXYCYCLINE HYCLATE 100 MG CAP 9827374 DOXYCYCLINE HYCLATE Inactive B-12 1000 MCG CAPS Take one by mouth daily B-12 1000 MCG CAPS CYANOCOBALAMIN Inactive VITAMIN B-6 250 MG TABS Take one by mouth daily VITAMIN B-6 250 MG TABS PYRIDOXINE HCL Inactive FOLIC ACID 800 MCG TABS Take one by mouth daily FOLIC ACID 800 MCG TABS 355673 FOLIC ACID Inactive CIPRO 500 MG TABS 1 TAB PO BID CIPRO 500 MG TABS 633828 CIPROFLOXACIN HCL Inactive OMEPRAZOLE 20 MG TBEC Take one by mouth daily OMEPRAZOLE 20 MG TBEC 803957 OMEPRAZOLE Inactive METOPROLOL SUCCINATE 50 MG TB24 1 tablet by mouth daily METOPROLOL SUCCINATE 50 MG TB24 METOPROLOL SUCCINATE Inactive BACTROBAN 2 % CREAM Apply to affected area BID BACTROBAN 2 % CREAM 256430 MUPIROCIN CALCIUM Inactive CLOBETASOL PROPIONATE 0.05 % CREA apply to hand rash bid 2016/06/ 06 CLOBETASOL PROPIONATE 0.05 % CREA 553257 CLOBETASOL PROPIONATE Inactive ALPRAZOLAM 0.25 MG TAB 1/2 to 1 tablet by mouth qhs prn ALPRAZOLAM 0.25 MG TAB 858220 ALPRAZOLAM Inactive WELLBUTRIN SR 150 MG ORAL [id number] take 1 tab po BID WELLBUTRIN SR 150 MG ORAL [id number] BUPROPION HCL Inactive AZITHROMYCIN 250 MG ORAL TABS 1 tab daily AZITHROMYCIN 250 MG ORAL TABS 6616796 AZITHROMYCIN Inactive PREDNISONE 20 MG TAB 1 tab po BID for 3 days, then 1 tab po qday for 3 days PREDNISONE 20 MG TAB 480268 PREDNISONE Inactive BACTRIM DS 800-160 MG TAB 1 tab by mouth twice daily BACTRIM DS 800-160 MG TAB 321104 TRIMETHOPRIM-SULFAMETHOXAZOLE Inactive LEVAQUIN 500 MG TAB 1 tablet by mouth daily LEVAQUIN 500 MG TAB 919312 LEVOFLOXACIN Inactive KEFLEX 500 MG CAP 1 po TID x 10 days KEFLEX 500 MG CAP 537684 CEPHALEXIN Inactive BACTRIM DS 800-160 MG TAB 1 tab by mouth twice daily BACTRIM DS 800-160 MG TAB 892987 TRIMETHOPRIM-SULFAMETHOXAZOLE Inactive ZITHROMAX 250 MG TAB 2 po today, then 1 po q days 2-5 ZITHROMAX 250 MG TAB 8378113 AZITHROMYCIN Inactive Vital Signs Date Name Value [...] Panel - Chemistry sodium, serum 133 mmol/L 727-016 5962/08/24 potassium, serum 4.4 mmol/L 3.5-5.2 chloride, serum 95 mmol/L 98-107 carbon dioxide, venous blood 33.0 mmol/L 21.0-32.0 blood glucose 107 mg/dL 65-110 calcium, serum 8.8 mg/dL 8.5-10.1 urea nitrogen, blood 12 mg/dL 7-18 creatinine, serum 0.69 mg/dL 0.55-1.30 Lab Report: CBC, Basic Metabolic Panel - Chemistry sodium, serum 132 mmol/L 528-839 9136/10/12 potassium, serum 4.7 mmol/L 3.5-5.2 chloride, serum [...] CBC - Chemistry sodium, serum 136 mmol/L 915-804 3549/11/01 carbon dioxide, venous blood 32.1 mmol/L 21.0-32.0 [...] mg/g mg/g{creat} 0-29 cholesterol, serum 195 mg/dL 763-795 1165/12/02 triglyceride, serum, fasting 74 mg/dL 30-200 HDL cholesterol, serum 52 mg/dL 32-96 LDL cholesterol, serum 128 mg/dL 0-130 sodium, serum 134 mmol/L 832-607 9795/12/02 carbon dioxide, venous blood 30.3 mmol/L 21.0-32.0 [...] 5.0-8.5 Encounters Code Encounter Date Provider Facility CPT-36572 Level 3 Est. Patient 10:34:55 CDT Gareth Cancino MD [facility] CPT-30103 Level 4 Est. Patient 09:00:18 CDT Gareth Cancino MD [facility] CPT-73655 Level 3 Est. Patient 15:12:03 CDT Gareth Cancino MD [facility] CPT-06536 Level 3 Est. Patient 23:08:20 CDT Gareth Cancino MD [facility] CPT-16162 Level 4 Est. Patient 20:40:10 CDT Gareth Cancino MD [facility] CPT-61915 Level 4 Est. Patient 19:50:11 CDT Gareth Cancino MD [facility] CPT-78829 Level 3 Est. Patient 11:00:13 CDT Gareth Cancino MD [facility] CPT-90754 Level 4 Est. Patient 11:20:21 CDT Gareth Cancino MD [facility] CPT-97602 Level 4 Est. Patient 09:22:18 MACHINE CEMENTER Gareth Cancino MD [facility] CPT-74048 Level 3 Est. Patient 09:48:04 CDT Gareth Cancino MD [facility] CPT-12391 Level 3 Est. Patient 10:13:16 CDT Gareth Cancino MD [facility] CPT-28176 Level 2 Est. Patient 18:36:56 CDT Gareth Cancino MD [facility] CPT-74078 Level 4 Est. Patient 13:50:53 CDT Gareth Cancino MD [facility] CPT-25925 Level 3 Est. Patient 14:58:33 MACHINE CEMENTER Gareth Cancino MD [facility] CPT-89816 Level 4 Est. Patient 09:25:57 CDT Gareth Cancino MD [facility] CPT-30299 Level 3 Est. Patient 20:39:33 CDT Noman Edwards DO [facility] CPT-85844 Level 2 Est. Patient 13:17:39 CDT Gareth Cancino MD [facility] CPT-96760 Level 3 Est. Patient 13:37:20 CDT Gareth Cancino MD [facility] CPT-79385 Level 3 Est. Patient 18:09:08 CDT Gareth Cancino MD [facility] CPT-00444 Level 4 Est. Patient 09:59:07 CDT Gareth Cancino MD [facility] Procedures Code Procedure Name Date Entry Date Standard Description CPT-27682 CMP - LAB USE ONLY 16:31:15 CDT CPT-36218 CBC - LAB USE ONLY 16:31:14 CDT CPT-33489 Venipuncture Draw Fee 16:31:14 CDT CPT-48280 BMP - LAB USE ONLY 14:37:27 CDT CPT-44221 CBC - LAB USE ONLY 14:37:27 CDT CPT-14616 Venipuncture Draw Fee 14:37:27 CDT CPT-TCMM Transitional Care Mgmt-Moderate 14:43:38 CDT CPT-75762 Venipuncture Draw Fee 10:33:47 CDT CPT-16513 BMP - LAB USE ONLY 10:33:46 CDT CPT-Cryo Cryotherapy 15:12:03 CDT CPT-49932 LS spine AP and Lat - XRAY USE ONLY 10:31:51 CDT 07/27 CPT-07571 Punch biopsy 1 lsn 20:40:09 CDT CPT-G0008 Administration of Influenza Virus Vaccine 10:04:48 MACHINE CEMENTER CPT-04399 Fluzone High-Dose Intramuscular Suspension 10:04:48 MACHINE CEMENTER CPT-88136 Ribs unilat w PA chst min 3V 10:45:40 CDT CPT-LR Lesion Removal 13:14:55 CDT CPT-Cryo Cryotherapy 13:14:55 CDT CPT-91054 Venipuncture Draw Fee 10:25:49 CDT CPT-70409 Administration single or combination vaccine inc oral 13 :22:14 MACHINE CEMENTER CPT-63422 Influenza High Dose age 65+ 13:22:14 MACHINE CEMENTER
--- OUTSIDE RECORDS SUMMARY | 2016-12-06 08:31 | XMS REPORT | Clinical Summary ---
Author Author Admin, HILARIA Organization [employer] Address Unknown Phone Unavailable Allergies, Adverse Reactions, [...] po daily as needed for arthritis/pain PIROXICAM [id number] Active Gareth Cancino MD Active ZITHROMAX Z-RUBEN 250 MG TABS 2 today, then 1 daily for 4 days 2016 AZITHROMYCIN 11625113821 No Longer Active Tangelashar Forte Active FENTANYL 25 MCG/HR TRANS PT72 1 patch every 72 hours FENTANYL 87683204846 Active Mary Shah APRN Active PREDNISONE 20 MG TAB take 3 tabs daily for 3 days, 2 tabs daily for 3 days, 1 tab daily for 3 days, 1/2 tab daily for 4 days PREDNISONE 03121270552 No Longer Active Mary Shah APRN Active LEVAQUIN 500 MG TAB 1 tablet by mouth daily for 7 days LEVOFLOXACIN 86419314194 Active Marylennox Shah APRN Active AZITHROMYCIN 250 MG TABS 2 po qd x 1 day, then 1 po qd x 4 days AZITHROMYCIN 66218480134 No Longer Active Danuta Rian Active AZITHROMYCIN 250 MG TABS 2 po qd x 1 day, then 1 po qd x 4 days AZITHROMYCIN 44403684438 No Longer Active Tangela Forte Active HYDROCODONE-ACETAMINOPHEN 5-325 MG TABS 1 tab by mouth every 6 hours as needed for bck pain HYDROCODONE-ACETAMINOPHEN 91722771552 No Longer Active Gareth Cancino MD Active ALPRAZOLAM 0.25 MG TAB 1 tablet by mouth q hs prn ALPRAZOLAM 66348721191 Active Gareth Cancino MD Active AZITHROMYCIN 250 MG ORAL TABS 1 tab daily AZITHROMYCIN 26958496168 No Longer Active Gareth Cancino MD Active ZITHROMAX 250 MG TAB 2 po today, then 1 po q days 2-5 AZITHROMYCIN 51754909978 No Longer Active Tangela Raida Active IPRATROPIUM-ALBUTEROL 0.5-2.5 (3) MG/3ML INH SOLN nebulize 1 vial every 6hrs prn shortness of breath IPRATROPIUM-ALBUTEROL 08131414690 Active Gareth Cancino MD Active FENTANYL 25 MCG/HR PT72 Apply to clean, dry skin and change every 72 hours FENTANYL 54772504618 No Longer Active Gareth Cancino MD Active WELLBUTRIN SR 150 MG ORAL [id number] take 1 tab po BID BUPROPION HCL 74567105813 No Longer Active Gareth Cancino MD Active ZOFRAN 4 MG ORAL TABS 1 by mouth every 6 hours prn nausea ONDANSETRON HCL 11246035310 Active Tangela Forte Active TRAMADOL HCL 50 MG TABS 1 po tid PRN TRAMADOL HCL 22856851037 Active Gareth Cancino MD Active ALPRAZOLAM 0.25 MG TAB 1/2 to 1 tablet by mouth qhs prn ALPRAZOLAM 14479525012 No Longer Active Gareth Cancino MD Active CLOBETASOL PROPIONATE 0.05 % CREA apply to hand rash bid CLOBETASOL PROPIONATE 11920737527 No Longer Active Gareth Cancino MD Active BACTROBAN 2 % CREAM Apply to affected area BID MUPIROCIN CALCIUM 89976471582 No Longer Active Gareth Cancino MD Active LISINOPRIL 20 MG TABS 1 tablet by mouth daily for high blood pressure 10/14 LISINOPRIL 16824936819 Active Gareth Cancino MD Active BACTRIM DS 800-160 MG TAB 1 tab by mouth twice daily TRIMETHOPRIM-SULFAMETHOXAZOLE 43738460857 No Longer Active Gareth Cancino MD Active METOPROLOL SUCCINATE ER 100 MG [id number] 1 pill by mouth daily, for blood pressure METOPROLOL SUCCINATE 87469947272 Active Gareth Cancino MD Active KEFLEX 500 MG CAP 1 po TID x 10 days CEPHALEXIN 04531046022 No Longer Active Blanca Castillo APRN Active METOPROLOL SUCCINATE 50 MG TB24 1 tablet by mouth daily METOPROLOL SUCCINATE 02714497090 No Longer Active Gareth Cancino MD Active OMEPRAZOLE 20 MG TBEC Take one by mouth daily OMEPRAZOLE 61155005468 No Longer Active Gareth Cancino MD Active OMEPRAZOLE 40 MG CPDR 1 tab po qday for acid reflux. OMEPRAZOLE 43734973471 Active Mary Shah APRN Active LEVAQUIN 500 MG TAB 1 tablet by mouth daily LEVOFLOXACIN 11785712938 No Longer Active Gareth Cancino MD Active ALEVE 220 MG TAB 2 tab po qd NAPROXEN SODIUM 78841826173 Active Gareth Cancino MD Active ASPIRIN 81 MG CHEW TAB 1 tablet by mouth daily ASPIRIN 27425435057 Active Gareth Cancino MD Active VENTOLIN HFA 108 (90 BASE) MCG/ACT AERS 1-2 puffs four times a day PRN shortness of breath ALBUTEROL SULFATE 37689978977 Active Mary Shah APRN Active CENTRUM SILVER TABS 1 TAB PO DAILY MULTIPLE VITAMINS-MINERALS 75463283685 Active Gareth Cancino MD Active VITAMIN B12 100 MCG TABS 1 TAB PO DAILY CYANOCOBALAMIN 55992439127 Active Gareth Cancino MD Active CIPRO 500 MG TABS 1 TAB PO BID CIPROFLOXACIN HCL 43151963696 No Longer Active Gareth Cancino MD Active BACTRIM DS 800-160 MG TAB 1 tab by mouth twice daily TRIMETHOPRIM-SULFAMETHOXAZOLE 17850550240 No Longer Active Gareth Cancino MD Active PREDNISONE 20 MG TAB 1 tab po BID for 3 days, then 1 tab po qday for 3 days PREDNISONE 45159153958 No Longer Active Gareth Cancino MD Active FOLIC ACID 800 MCG TABS Take one by mouth daily FOLIC ACID 45581440629 No Longer Active Gareth Cancino MD Active VITAMIN B-6 250 MG TABS Take one by mouth daily PYRIDOXINE HCL 04712023052 No Longer Active Gareth Cancino MD Active B-12 1000 MCG CAPS Take one by mouth daily CYANOCOBALAMIN 57911543381 No Longer Active Gareth Cancino MD Active DOXYCYCLINE HYCLATE 100 MG CAP 1 cap by mouth twice daily DOXYCYCLINE HYCLATE 43859296076 No Longer Active Gareth Cancino MD Active PREDNISONE 20 MG TAB 1 po bid 3 days, then 1 po q day 3 days 2011 PREDNISONE 65621991342 No Longer Active Gareth Cancino MD Active CHANTIX STARTING MONTH RUBEN 0.5 MG X 11 & 1 MG X 42 TABS 0.5mg daily for 3 days , then 0.5mg BID for 4 days, then 1mg BID VARENICLINE TARTRATE 27454160796 No Longer Active Gareth Cancino MD Active SIMVASTATIN 40 MG TABS Take one by mouth daily SIMVASTATIN 84194297230 Active Gareth Cancino MD Active TRIAMTERENE-HCTZ 37.5-25 MG CAPS Take one by mouth daily TRIAMTERENE- HCTZ 32986726162 Active Gareth Cancino MD Active CHANTIX STARTING [...] 3 days 2011 PREDNISONE 20 MG TAB 994381 PREDNISONE Inactive DOXYCYCLINE HYCLATE 100 MG CAP 1 cap by mouth twice daily DOXYCYCLINE HYCLATE 100 MG CAP 5961748 DOXYCYCLINE HYCLATE Inactive B-12 1000 MCG CAPS Take one by mouth daily B-12 1000 MCG CAPS CYANOCOBALAMIN Inactive VITAMIN B-6 250 MG TABS Take one by mouth daily VITAMIN B-6 250 MG TABS PYRIDOXINE HCL Inactive FOLIC ACID 800 MCG TABS Take one by mouth daily FOLIC ACID 800 MCG TABS 425043 FOLIC ACID Inactive CIPRO 500 MG TABS 1 TAB PO BID CIPRO 500 MG TABS 004491 CIPROFLOXACIN HCL Inactive OMEPRAZOLE 20 MG TBEC Take one by mouth daily OMEPRAZOLE 20 MG TBEC 168534 OMEPRAZOLE Inactive METOPROLOL SUCCINATE 50 MG TB24 1 tablet by mouth daily METOPROLOL SUCCINATE 50 MG TB24 METOPROLOL SUCCINATE Inactive BACTROBAN 2 % CREAM Apply to affected area BID BACTROBAN 2 % CREAM 725916 MUPIROCIN CALCIUM Inactive CLOBETASOL PROPIONATE 0.05 % CREA apply to hand rash bid CLOBETASOL PROPIONATE 0.05 % CREA 329061 CLOBETASOL PROPIONATE Inactive ALPRAZOLAM 0.25 MG TAB 1/2 to 1 tablet by mouth qhs prn ALPRAZOLAM 0.25 MG TAB 954049 ALPRAZOLAM Inactive WELLBUTRIN SR 150 MG ORAL [id number]-[id number] take 1 tab po BID WELLBUTRIN SR 150 MG ORAL [id number] BUPROPION HCL Inactive AZITHROMYCIN 250 MG ORAL TABS 1 tab daily AZITHROMYCIN 250 MG ORAL TABS 0387309 AZITHROMYCIN Inactive HYDROCODONE-ACETAMINOPHEN 5-325 MG TABS 1 tab by mouth every 6 hours as needed for bck pain HYDROCODONE-ACETAMINOPHEN 5-325 MG TABS 884036 HYDROCODONE-ACETAMINOPHEN Inactive PREDNISONE 20 MG TAB 1 tab po BID for 3 days, then 1 tab po qday for 3 days PREDNISONE 20 MG TAB 841940 PREDNISONE Inactive BACTRIM DS 800-160 MG TAB 1 tab by mouth twice daily BACTRIM DS 800-160 MG TAB 890061 TRIMETHOPRIM-SULFAMETHOXAZOLE Inactive LEVAQUIN 500 MG TAB 1 tablet by mouth daily LEVAQUIN 500 MG TAB 740297 LEVOFLOXACIN Inactive KEFLEX 500 MG CAP 1 po TID x 10 days KEFLEX 500 MG CAP 550780 CEPHALEXIN Inactive BACTRIM DS 800-160 MG TAB 1 tab by mouth twice daily BACTRIM DS 800-160 MG TAB 19820425 TRIMETHOPRIM-SULFAMETHOXAZOLE Inactive FENTANYL 25 MCG/HR PT72 Apply to clean, dry skin and change every 72 hours FENTANYL 25 MCG/HR PT72 319549 FENTANYL Inactive ZITHROMAX 250 MG TAB 2 po today, then 1 po q days 2-5 ZITHROMAX 250 MG TAB 7976025 AZITHROMYCIN Inactive AZITHROMYCIN 250 MG TABS 2 po qd x 1 day, then 1 po qd x 4 days AZITHROMYCIN 250 MG TABS 6617048 AZITHROMYCIN Inactive AZITHROMYCIN 250 MG TABS 2 po qd x 1 day, then 1 po qd x 4 days AZITHROMYCIN 250 MG TABS 9244348 AZITHROMYCIN Inactive PREDNISONE 20 MG TAB take 3 tabs daily for 3 days, 2 tabs daily for 3 days, 1 tab daily for 3 days, 1/2 tab daily for 4 days PREDNISONE 20 MG TAB 089340 PREDNISONE Inactive ZITHROMAX Z-RUBEN 250 MG TABS 2 today, then 1 daily for 4 days 2016 ZITHROMAX Z-RUBEN 250 MG TABS 8611241 AZITHROMYCIN Inactive Vital Signs Date Name Value [...] Panel - Chemistry sodium, serum 133 mmol/L 629-305 7400/08/24 potassium, serum 4.4 mmol/L 3.5-5.2 chloride, serum 95 mmol/L 98-107 carbon dioxide, venous blood 33.0 mmol/L 21.0-32.0 blood glucose 107 mg/dL 65-110 calcium, serum 8.8 mg/dL 8.5-10.1 urea nitrogen, blood 12 mg/dL 7-18 creatinine, serum 0.69 mg/dL 0.55-1.30 Lab Report: CBC, Basic Metabolic Panel - Chemistry sodium, serum 132 mmol/L 095-637 7198/10/12 potassium, serum 4.7 mmol/L 3.5-5.2 chloride, serum [...] CBC - Chemistry sodium, serum 136 mmol/L 410-990 8898/11/01 carbon dioxide, venous blood 32.1 mmol/L 21.0-32.0 [...] PANEL - Chemistry cholesterol, serum 169 mg/dL 592-261 8349/05/09 HDL cholesterol, serum 54 mg/dL > OR=46 [...] Negative Encounters Code Encounter Date Provider Facility CPT-95032 Level 3 Est. Patient 09:05:25 INJECTION MOLDING OPERATOR Mary Shah APRN [facility] CPT-40950 Level 3 Est. Patient 20:53:25 INJECTION MOLDING OPERATOR Gareth Cancino MD [facility] CPT-29015 Level 3 Est. Patient 10:34:55 CDT Gareth Cancino MD [facility] CPT-85244 Level 4 Est. Patient 09:00:18 CDT Gareth Cancino MD [facility] CPT-05574 Level 3 Est. Patient 15:12:03 CDT Gareth Cancino MD [facility] CPT-26911 Level 3 Est. Patient 23:08:20 CDT Gareth Cancino MD [facility] CPT-94675 Level 4 Est. Patient 20:40:10 CDT Gareth Cancino MD [facility] CPT-23007 Level 4 Est. Patient 19:50:11 CDT Gareth Cancino MD [facility] CPT-20315 Level 3 Est. Patient 11:00:13 CDT Gareth Cancino MD [facility] CPT-12157 Level 4 Est. Patient 11:20:21 CDT Gareth Cancino MD [facility] CPT-96901 Level 4 Est. Patient 09:22:18 INJECTION MOLDING OPERATOR Gareth Cancino MD [facility] CPT-14523 Level 3 Est. Patient 09:48:04 CDT Gareth Cancino MD [facility] CPT-50866 Level 3 Est. Patient 10:13:16 CDT Gareth Cancino MD [facility] CPT-75009 Level 2 Est. Patient 18:36:56 CDT Gareth Cancino MD [facility] CPT-44368 Level 4 Est. Patient 13:50:53 CDT Gareth Cancino MD [facility] CPT-08080 Level 3 Est. Patient 14:58:33 INJECTION MOLDING OPERATOR Gareth Cancino MD [facility] CPT-80195 Level 4 Est. Patient 09:25:57 CDT Gareth Cancino MD [facility] CPT-75022 Level 3 Est. Patient 20:39:33 CDT Noman Edwards DO [facility] CPT-53832 Level 2 Est. Patient 13:17:39 CDT Gareth Cancino MD [facility] CPT-52016 Level 3 Est. Patient 13:37:20 CDT Gareth Cancino MD [facility] CPT-89856 Level 3 Est. Patient 18:09:08 CDT Gareth Cancino MD [facility] CPT-22122 Level 4 Est. Patient 09:59:07 CDT Gareth Cancino MD [facility] Procedures Code Procedure Name Date Entry Date Standard Description CPT-000 Give Appropriate Flu Vaccine 09:29:52 INJECTION MOLDING OPERATOR CPT-000 Give Appropriate Flu Vaccine 09:22:20 INJECTION MOLDING OPERATOR CPT-07346 TSH - LAB USE ONLY 08:11:40 INJECTION MOLDING OPERATOR CPT-77945 Free T4 - LAB USE ONLY 08:11:40 INJECTION MOLDING OPERATOR CPT-54570 Venipuncture Draw Fee 08:11:40 INJECTION MOLDING OPERATOR CPT-82376 UA w micro - LAB USE ONLY 14:26:22 INJECTION MOLDING OPERATOR CPT-G0438 Initial Annual Wellness Exam 20:53:25 INJECTION MOLDING OPERATOR CPT-G0009 Administration of Pneumococcal Vaccine 11:42:53 INJECTION MOLDING OPERATOR CPT-94664 Prevnar 13 Intramuscular Suspension 11:42:53 INJECTION MOLDING OPERATOR 01/07 CPT-42587 First Vx - Ix admin for Medicare patients 11:39:44 INJECTION MOLDING OPERATOR CPT-09290 Fluzone High-Dose Intramuscular Suspension 11:39:44 INJECTION MOLDING OPERATOR CPT-26544 Prevnar 13 Intramuscular Suspension 09:29:52 INJECTION MOLDING OPERATOR 01/07 CPT-13224 CMP - LAB USE ONLY 16:31:15 CDT CPT-74375 CBC - LAB USE ONLY 16:31:14 CDT CPT-28693 Venipuncture Draw Fee 16:31:14 CDT CPT-75783 BMP - LAB USE ONLY 14:37:27 CDT CPT-23109 CBC - LAB USE ONLY 14:37:27 CDT CPT-11173 Venipuncture Draw Fee 14:37:27 CDT CPT-TCMM Transitional Care Mgmt-Moderate 14:43:38 CDT CPT-37741 Venipuncture Draw Fee 10:33:47 CDT CPT-92127 BMP - LAB USE ONLY 10:33:46 CDT CPT-Cryo Cryotherapy 15:12:03 CDT CPT-50687 LS spine AP and Lat - XRAY USE ONLY 10:31:51 CDT 07/27 CPT-15795 Punch biopsy 1 lsn 20:40:09 CDT CPT-G0008 Administration of Influenza Virus Vaccine 10:04:48 INJECTION MOLDING OPERATOR CPT-66561 Fluzone High-Dose Intramuscular Suspension 10:04:48 INJECTION MOLDING OPERATOR CPT-11770 Ribs unilat w PA chst min 3V 10:45:40 CDT CPT-LR Lesion Removal 13:14:55 CDT CPT-Cryo Cryotherapy 13:14:55 CDT CPT-42286 Venipuncture Draw Fee 10:25:49 CDT CPT-07435 Administration single or combination vaccine inc oral 13 :22:14 INJECTION MOLDING OPERATOR CPT-55285 Influenza High Dose age 65+ 13:22:14 INJECTION MOLDING OPERATOR
--- OUTSIDE RECORDS SUMMARY | 2016-12-06 08:32 | XMS REPORT | Clinical Summary ---
Author Author Admin, HILARIA Organization [employer] Address Unknown Phone Unavailable Allergies, Adverse Reactions, [...] 1 GM ORAL PACK as directed AZITHROMYCIN 56547567214 Active Tangela Forte Active PIROXICAM 20 MG ORAL CAPS 1 po daily as needed for arthritis/pain PIROXICAM 28487739622 Active Gareth Cancino MD Active ZITHROMAX Z-RUBEN 250 MG TABS 2 today, then 1 daily for 4 days 2016 AZITHROMYCIN 65604323639 No Longer Active Tangelashar Forte Active FENTANYL 25 MCG/HR TRANS PT72 1 patch every 72 hours FENTANYL 90827932228 Active Mary Shah APRN Active PREDNISONE 20 MG TAB take 3 tabs daily for 3 days, 2 tabs daily for 3 days, 1 tab daily for 3 days, 1/2 tab daily for 4 days PREDNISONE 72336716980 No Longer Active Mary Shah APRN Active LEVAQUIN 500 MG TAB 1 tablet by mouth daily for 7 days LEVOFLOXACIN 11147229643 Active Mary Shah APRN Active AZITHROMYCIN 250 MG TABS 2 po qd x 1 day, then 1 po qd x 4 days AZITHROMYCIN 52544444885 No Longer Active Danuta Modi Active AZITHROMYCIN 250 MG TABS 2 po qd x 1 day, then 1 po qd x 4 days AZITHROMYCIN 15910925978 No Longer Active Tangela Forte Active HYDROCODONE-ACETAMINOPHEN 5-325 MG TABS 1 tab by mouth every 6 hours as needed for bck pain HYDROCODONE-ACETAMINOPHEN 25418531965 No Longer Active Gareth Cancino MD Active ALPRAZOLAM 0.25 MG TAB 1 tablet by mouth q hs prn ALPRAZOLAM 79691240693 Active Gareth Cancino MD Active AZITHROMYCIN 250 MG ORAL TABS 1 tab daily AZITHROMYCIN 63524987875 No Longer Active Gareth Cancino MD Active ZITHROMAX 250 MG TAB 2 po today, then 1 po q days 2-5 AZITHROMYCIN 78496803929 No Longer Active Tangela Forte Active IPRATROPIUM-ALBUTEROL 0.5-2.5 (3) MG/3ML INH SOLN nebulize 1 vial every 6hrs prn shortness of breath IPRATROPIUM-ALBUTEROL 46969631434 Active Gareth Cancino MD Active FENTANYL 25 MCG/HR PT72 Apply to clean, dry skin and change every 72 hours FENTANYL 14098126488 No Longer Active Gareth Cancino MD Active WELLBUTRIN SR 150 MG ORAL [id number] take 1 tab po BID BUPROPION HCL 29979568008 No Longer Active Gareth Cancino MD Active ZOFRAN 4 MG ORAL TABS 1 by mouth every 6 hours prn nausea ONDANSETRON HCL 16620195855 Active Tangela Forte Active TRAMADOL HCL 50 MG TABS 1 po tid PRN TRAMADOL HCL 13452963587 Active Gareth Cancino MD Active ALPRAZOLAM 0.25 MG TAB 1/2 to 1 tablet by mouth qhs prn ALPRAZOLAM 68890435297 No Longer Active Gareth Cancino MD Active CLOBETASOL PROPIONATE 0.05 % CREA apply to hand rash bid CLOBETASOL PROPIONATE 48886042039 No Longer Active Gareth Cancino MD Active BACTROBAN 2 % CREAM Apply to affected area BID MUPIROCIN CALCIUM 01676206673 No Longer Active Gareth Cancino MD Active LISINOPRIL 20 MG TABS 1 tablet by mouth daily for high blood pressure 10/14 LISINOPRIL 91821440556 Active Gareth Cancino MD Active BACTRIM DS 800-160 MG TAB 1 tab by mouth twice daily TRIMETHOPRIM-SULFAMETHOXAZOLE 32820305501 No Longer Active Gareth Cancino MD Active METOPROLOL SUCCINATE ER 100 MG [id number] 1 pill by mouth daily, for blood pressure METOPROLOL SUCCINATE 25784239248 Active Gareth Cancino MD Active KEFLEX 500 MG CAP 1 po TID x 10 days CEPHALEXIN 08487082651 No Longer Active Blanca Castillo APRN Active METOPROLOL SUCCINATE 50 MG TB24 1 tablet by mouth daily METOPROLOL SUCCINATE 07264558430 No Longer Active Gareth Cancino MD Active OMEPRAZOLE 20 MG TBEC Take one by mouth daily OMEPRAZOLE 62402580769 No Longer Active Gareth Cancino MD Active OMEPRAZOLE 40 MG CPDR 1 tab po qday for acid reflux. OMEPRAZOLE 97820219079 Active Mary Shah APRN Active LEVAQUIN 500 MG TAB 1 tablet by mouth daily LEVOFLOXACIN 08869078494 No Longer Active Gareth Cancino MD Active ALEVE 220 MG TAB 2 tab po qd NAPROXEN SODIUM 13406326221 Active Gareth Cancino MD Active ASPIRIN 81 MG CHEW TAB 1 tablet by mouth daily ASPIRIN 93563938933 Active Gareth Cancino MD Active VENTOLIN HFA 108 (90 BASE) MCG/ACT AERS 1-2 puffs four times a day PRN shortness of breath ALBUTEROL SULFATE 96515162499 Active Mary Shah APRN Active CENTRUM SILVER TABS 1 TAB PO DAILY MULTIPLE VITAMINS-MINERALS 07269481761 Active Gareth Cancino MD Active VITAMIN B12 100 MCG TABS 1 TAB PO DAILY CYANOCOBALAMIN 58337000321 Active Gareth Cancino MD Active CIPRO 500 MG TABS 1 TAB PO BID CIPROFLOXACIN HCL 10253798445 No Longer Active Gareth Cancino MD Active BACTRIM DS 800-160 MG TAB 1 tab by mouth twice daily TRIMETHOPRIM-SULFAMETHOXAZOLE 34067211476 No Longer Active Gareth Cancino MD Active PREDNISONE 20 MG TAB 1 tab po BID for 3 days, then 1 tab po qday for 3 days PREDNISONE 77704164237 No Longer Active Gareth Cancino MD Active FOLIC ACID 800 MCG TABS Take one by mouth daily FOLIC ACID 73617519675 No Longer Active Gareth Cancino MD Active VITAMIN B-6 250 MG TABS Take one by mouth daily PYRIDOXINE HCL 56164503842 No Longer Active Gareth Cancino MD Active B-12 1000 MCG CAPS Take one by mouth daily CYANOCOBALAMIN 16235745336 No Longer Active Gareth Cancino MD Active DOXYCYCLINE HYCLATE 100 MG CAP 1 cap by mouth twice daily DOXYCYCLINE HYCLATE 64027481228 No Longer Active Gareth Cancino MD Active PREDNISONE 20 MG TAB 1 po bid 3 days, then 1 po q day 3 days 2011 PREDNISONE 32816334692 No Longer Active Gareth Cancino MD Active CHANTIX STARTING MONTH RUBEN 0.5 MG X 11 & 1 MG X 42 TABS 0.5mg daily for 3 days , then 0.5mg BID for 4 days, then 1mg BID VARENICLINE TARTRATE 04149884871 No Longer Active Gareth Cancino MD Active SIMVASTATIN 40 MG TABS Take one by mouth daily SIMVASTATIN 48198566780 Active Gareth Cancino MD Active TRIAMTERENE-HCTZ 37.5-25 MG CAPS Take one by mouth daily TRIAMTERENE- HCTZ 06991325758 Active Mary Shah APRN Active CHANTIX STARTING [...] 3 days 2011 PREDNISONE 20 MG TAB 546427 PREDNISONE Inactive DOXYCYCLINE HYCLATE 100 MG CAP 1 cap by mouth twice daily DOXYCYCLINE HYCLATE 100 MG CAP 4671976 DOXYCYCLINE HYCLATE Inactive B-12 1000 MCG CAPS Take one by mouth daily B-12 1000 MCG CAPS CYANOCOBALAMIN Inactive VITAMIN B-6 250 MG TABS Take one by mouth daily VITAMIN B-6 250 MG TABS PYRIDOXINE HCL Inactive FOLIC ACID 800 MCG TABS Take one by mouth daily FOLIC ACID 800 MCG TABS 549536 FOLIC ACID Inactive CIPRO 500 MG TABS 1 TAB PO BID CIPRO 500 MG TABS 381916 CIPROFLOXACIN HCL Inactive OMEPRAZOLE 20 MG TBEC Take one by mouth daily OMEPRAZOLE 20 MG TBEC 270715 OMEPRAZOLE Inactive METOPROLOL SUCCINATE 50 MG TB24 1 tablet by mouth daily METOPROLOL SUCCINATE 50 MG TB24 METOPROLOL SUCCINATE Inactive BACTROBAN 2 % CREAM Apply to affected area BID BACTROBAN 2 % CREAM 738683 MUPIROCIN CALCIUM Inactive CLOBETASOL PROPIONATE 0.05 % CREA apply to hand rash bid CLOBETASOL PROPIONATE 0.05 % CREA 755360 CLOBETASOL PROPIONATE Inactive ALPRAZOLAM 0.25 MG TAB 1/2 to 1 tablet by mouth qhs prn ALPRAZOLAM 0.25 MG TAB 994556 ALPRAZOLAM Inactive WELLBUTRIN SR 150 MG ORAL [id number] take 1 tab po BID WELLBUTRIN SR 150 MG ORAL [id number] BUPROPION HCL Inactive AZITHROMYCIN 250 MG ORAL TABS 1 tab daily AZITHROMYCIN 250 MG ORAL TABS 8516435 AZITHROMYCIN Inactive HYDROCODONE-ACETAMINOPHEN 5-325 MG TABS 1 tab by mouth every 6 hours as needed for bck pain HYDROCODONE-ACETAMINOPHEN 5-325 MG TABS 555754 HYDROCODONE-ACETAMINOPHEN Inactive PREDNISONE 20 MG TAB 1 tab po BID for 3 days, then 1 tab po qday for 3 days PREDNISONE 20 MG TAB 340422 PREDNISONE Inactive BACTRIM DS 800-160 MG TAB 1 tab by mouth twice daily BACTRIM DS 800-160 MG TAB 881590 TRIMETHOPRIM-SULFAMETHOXAZOLE Inactive LEVAQUIN 500 MG TAB 1 tablet by mouth daily LEVAQUIN 500 MG TAB 609718 LEVOFLOXACIN Inactive KEFLEX 500 MG CAP 1 po TID x 10 days KEFLEX 500 MG CAP 472399 CEPHALEXIN Inactive BACTRIM DS 800-160 MG TAB 1 tab by mouth twice daily BACTRIM DS 800-160 MG TAB 415671 TRIMETHOPRIM-SULFAMETHOXAZOLE Inactive FENTANYL 25 MCG/HR PT72 Apply to clean, dry skin and change every 72 hours FENTANYL 25 MCG/HR PT72 889813 FENTANYL Inactive ZITHROMAX 250 MG TAB 2 po today, then 1 po q days 2-5 ZITHROMAX 250 MG TAB 3445534 AZITHROMYCIN Inactive AZITHROMYCIN 250 MG TABS 2 po qd x 1 day, then 1 po qd x 4 days AZITHROMYCIN 250 MG TABS 9751640 AZITHROMYCIN Inactive AZITHROMYCIN 250 MG TABS 2 po qd x 1 day, then 1 po qd x 4 days AZITHROMYCIN 250 MG TABS 9576865 AZITHROMYCIN Inactive PREDNISONE 20 MG TAB take 3 tabs daily for 3 days, 2 tabs daily for 3 days, 1 tab daily for 3 days, 1/2 tab daily for 4 days PREDNISONE 20 MG TAB 710424 PREDNISONE Inactive ZITHROMAX Z-RUBEN 250 MG TABS 2 today, then 1 daily for 4 days 2016 ZITHROMAX Z-RUBEN 250 MG TABS 0433965 AZITHROMYCIN Inactive Vital Signs Date Name Value [...] Panel - Chemistry sodium, serum 133 mmol/L 102-391 9399/08/24 potassium, serum 4.4 mmol/L 3.5-5.2 chloride, serum 95 mmol/L 98-107 carbon dioxide, venous blood 33.0 mmol/L 21.0-32.0 blood glucose 107 mg/dL 65-110 calcium, serum 8.8 mg/dL 8.5-10.1 urea nitrogen, blood 12 mg/dL 7-18 creatinine, serum 0.69 mg/dL 0.55-1.30 Lab Report: CBC, Basic Metabolic Panel - Chemistry sodium, serum 132 mmol/L 465-946 8589/10/12 potassium, serum 4.7 mmol/L 3.5-5.2 chloride, serum [...] CBC - Chemistry sodium, serum 136 mmol/L 338-415 2535/11/01 carbon dioxide, venous blood 32.1 mmol/L 21.0-32.0 [...] PANEL - Chemistry cholesterol, serum 169 mg/dL 376-061 9270/05/09 HDL cholesterol, serum 54 mg/dL > OR=46 [...] mg/dL Encounters Code Encounter Date Provider Facility CPT-82062 Level 4 Est. Patient 07:23:02 CDT Gareth Cancino MD [facility] CPT-41556 Level 3 Est. Patient 09:05:25 [employer] Mary Shah APRN [facility] CPT-39826 Level 3 Est. Patient 20:53:25 [employer] Gareth Cancino MD [facility] CPT-65982 Level 3 Est. Patient 10:34:55 CDT Gareth Cancino MD [facility] CPT-09903 Level 4 Est. Patient 09:00:18 CDT Gareth Cancino MD [facility] CPT-10088 Level 3 Est. Patient 15:12:03 CDT Gareth Cancino MD [facility] CPT-76007 Level 3 Est. Patient 23:08:20 CDT Gareth Cancino MD [facility] CPT-16360 Level 4 Est. Patient 20:40:10 CDT Gareth Cancino MD [facility] CPT-54062 Level 4 Est. Patient 19:50:11 CDT Gareth Cancino MD [facility] CPT-52629 Level 3 Est. Patient 11:00:13 CDT Gareth Cancino MD [facility] CPT-53413 Level 4 Est. Patient 11:20:21 CDT Gareth Cancino MD [facility] CPT-23725 Level 4 Est. Patient 09:22:18 [employer] Gareth Cancino MD [facility] CPT-83483 Level 3 Est. Patient 09:48:04 CDT Gareth Cancino MD [facility] CPT-69700 Level 3 Est. Patient 10:13:16 CDT Gareth Cancino MD [facility] CPT-67779 Level 2 Est. Patient 18:36:56 CDT Gareth Cancino MD [facility] CPT-64259 Level 4 Est. Patient 13:50:53 CDT Gareth Cancino MD [facility] CPT-72594 Level 3 Est. Patient 14:58:33 [employer] Gareth Cancino MD [facility] CPT-76828 Level 4 Est. Patient 09:25:57 CDT Gareth Cancino MD [facility] CPT-15626 Level 3 Est. Patient 20:39:33 CDT Noman Edwards DO [facility] CPT-47665 Level 2 Est. Patient 13:17:39 CDT Gareth Cancino MD [facility] CPT-79946 Level 3 Est. Patient 13:37:20 CDT Gareth Cancino MD [facility] CPT-91625 Level 3 Est. Patient 18:09:08 CDT Gareth Cancino MD [facility] CPT-35818 Level 4 Est. Patient 09:59:07 CDT Gareth Cancino MD [facility] Procedures Code Procedure Name Date Entry Date Standard Description CPT-000 Give Appropriate Flu Vaccine 09:29:52 [employer] CPT-000 Give Appropriate Flu Vaccine 09:22:20 [employer] CPT-95155 TSH - LAB USE ONLY 08:11:40 [employer] CPT-79024 Free T4 - LAB USE ONLY 08:11:40 [employer] CPT-42398 Venipuncture Draw Fee 08:11:40 [employer] CPT-91805 UA w micro - LAB USE ONLY 14:26:22 [employer] CPT-G0438 Initial Annual Wellness Exam 20:53:25 [employer] CPT-G0009 Administration of Pneumococcal Vaccine 11:42:53 [employer] CPT-62305 Prevnar 13 Intramuscular Suspension 11:42:53 [employer] 01/07 CPT-15735 First Vx - Ix admin for Medicare patients 11:39:44 [employer] CPT-82634 Fluzone High-Dose Intramuscular Suspension 11:39:44 [employer] CPT-02146 Prevnar 13 Intramuscular Suspension 09:29:52 [employer] 01/07 CPT-25122 CMP - LAB USE ONLY 16:31:15 CDT CPT-93719 CBC - LAB USE ONLY 16:31:14 CDT CPT-44012 Venipuncture Draw Fee 16:31:14 CDT CPT-99926 BMP - LAB USE ONLY 14:37:27 CDT CPT-50950 CBC - LAB USE ONLY 14:37:27 CDT CPT-56445 Venipuncture Draw Fee 14:37:27 CDT CPT-TCMM Transitional Care Mgmt-Moderate 14:43:38 CDT CPT-29592 Venipuncture Draw Fee 10:33:47 CDT CPT-49847 BMP - LAB USE ONLY 10:33:46 CDT CPT-Cryo Cryotherapy 15:12:03 CDT CPT-35104 LS spine AP and Lat - XRAY USE ONLY 10:31:51 CDT 07/27 CPT-21597 Punch biopsy 1 lsn 20:40:09 CDT CPT-G0008 Administration of Influenza Virus Vaccine 10:04:48 [employer] CPT-64491 Fluzone High-Dose Intramuscular Suspension 10:04:48 [employer] CPT-34192 Ribs unilat w PA chst min 3V 10:45:40 CDT CPT-LR Lesion Removal 13:14:55 CDT CPT-Cryo Cryotherapy 13:14:55 CDT CPT-00814 Venipuncture Draw Fee 10:25:49 CDT CPT-31625 Administration single or combination vaccine inc oral 13 :22:14 [employer] CPT-46660 Influenza High Dose age 65+ 13:22:14 [employer]
--- OUTSIDE RECORDS SUMMARY | 2016-12-06 08:33 | XMS REPORT | Clinical Summary ---
Author Author Admin, HILARIA Organization [employer] Address Unknown Phone Unavailable Allergies, Adverse Reactions, [...] cause Skin lesion 709.9 Active Blanca Castillo AIRCRAFT FUELER Unspecified disorder of skin and subcutaneous tissue Folliculitis 704.8 Active Gareth Cancino MD Other specified diseases of hair and hair follicles Low back pain, chronic 724.2 Active Gareth Cancino MD Lumbago Frequency of urination 788.41 Active Negin Garcia TECHNICIAN TERMINAL AND REPEATER Urinary frequency Actinic keratosis 702.0 Active Gareth [...] every 6hrs prn shortness of breath IPRATROPIUM-ALBUTEROL 85997632306 Active Gareth Cancino MD Active FENTANYL 25 MCG/HR PT72 Apply to clean, dry skin and change every 72 hours FENTANYL 22361505714 Active Gareth Cancino MD Active AZITHROMYCIN 250 MG ORAL TABS 1 tab daily AZITHROMYCIN 07669590552 Active Gareth Cancino MD Active WELLBUTRIN SR 150 MG ORAL [id number]-VOY take 1 tab po BID BUPROPION HCL 61387383494 No Longer Active Gareth Cancino MD Active ZOFRAN 4 MG ORAL TABS 1 by mouth every 6 hours prn nausea ONDANSETRON HCL 24083850630 Active Tangela Forte Active TRAMADOL HCL 50 MG TABS 1 po tid PRN TRAMADOL HCL 64385892041 Active Danuta Modi Active HYDROCODONE-ACETAMINOPHEN 5-325 MG TABS 1 tab by mouth every 6 hours as needed for bck pain HYDROCODONE-ACETAMINOPHEN 47478182563 Active Gareth Cancino MD Active ALPRAZOLAM 0.25 MG TAB 1/2 to 1 tablet by mouth qhs prn ALPRAZOLAM 41483664124 No Longer Active Gareth Cancino MD Active CLOBETASOL PROPIONATE 0.05 % CREA apply to hand rash bid CLOBETASOL PROPIONATE 97869005328 No Longer Active Gareth Cancino MD Active BACTROBAN 2 % CREAM Apply to affected area BID MUPIROCIN CALCIUM 63504996011 No Longer Active Gareth Cancino MD Active LISINOPRIL 20 MG TABS 1 tablet by mouth daily for high blood pressure 10/14 LISINOPRIL 39455098167 Active Gareth Cancino MD Active BACTRIM DS 800-160 MG TAB 1 tab by mouth twice daily TRIMETHOPRIM-SULFAMETHOXAZOLE 00748047421 No Longer Active Gareth Cancino MD Active METOPROLOL SUCCINATE ER 100 MG [id number] 1 pill by mouth daily, for blood pressure METOPROLOL SUCCINATE 64434209414 Active Gareth Cancino MD Active KEFLEX 500 MG CAP 1 po TID x 10 days CEPHALEXIN 78509713865 No Longer Active Blanca Castillo APRN Active METOPROLOL SUCCINATE 50 MG TB24 1 tablet by mouth daily METOPROLOL SUCCINATE 57166204291 No Longer Active Gareth Cancino MD Active OMEPRAZOLE 20 MG TBEC Take one by mouth daily OMEPRAZOLE 39547453298 No Longer Active Gareth Cancino MD Active OMEPRAZOLE 40 MG CPDR 1 tab po qday for acid reflux. OMEPRAZOLE 96765825686 Active Mary Shah APRN Active LEVAQUIN 500 MG TAB 1 tablet by mouth daily LEVOFLOXACIN 18752547223 No Longer Active Gareth Cancino MD Active ALEVE 220 MG TAB 2 tab po qd NAPROXEN SODIUM 47051537717 Active Gareth Cancino MD Active ASPIRIN 81 MG CHEW TAB 1 tablet by mouth daily ASPIRIN 85718050568 Active Gareth Cancino MD Active VENTOLIN HFA 108 (90 BASE) MCG/ACT AERS 1-2 puffs four times a day PRN shortness of breath ALBUTEROL SULFATE 63481218207 Active Mary Shah APRN Active CENTRUM SILVER TABS 1 TAB PO DAILY MULTIPLE VITAMINS-MINERALS 56254810690 Active Gareth Cancino MD Active VITAMIN B12 100 MCG TABS 1 TAB PO DAILY CYANOCOBALAMIN 37767926804 Active Gareth Cancino MD Active CIPRO 500 MG TABS 1 TAB PO BID CIPROFLOXACIN HCL 00605421643 No Longer Active Gareth Cancino MD Active BACTRIM DS 800-160 MG TAB 1 tab by mouth twice daily TRIMETHOPRIM-SULFAMETHOXAZOLE 73832134443 No Longer Active Gareth Cancino MD Active PREDNISONE 20 MG TAB 1 tab po BID for 3 days, then 1 tab po qday for 3 days PREDNISONE 84584531607 No Longer Active Gareth Cancino MD Active FOLIC ACID 800 MCG TABS Take one by mouth daily FOLIC ACID 92348740319 No Longer Active Gareth Cancino MD Active VITAMIN B-6 250 MG TABS Take one by mouth daily PYRIDOXINE HCL 73294482406 No Longer Active Gareth Cancino MD Active B-12 1000 MCG CAPS Take one by mouth daily CYANOCOBALAMIN 41747438211 No Longer Active Gareth Cancino MD Active DOXYCYCLINE HYCLATE 100 MG CAP 1 cap by mouth twice daily DOXYCYCLINE HYCLATE 46777409742 No Longer Active Gareth Cancino MD Active PREDNISONE 20 MG TAB 1 po bid 3 days, then 1 po q day 3 days 2011 PREDNISONE 28569496001 No Longer Active Gareth Cancino MD Active CHANTIX STARTING MONTH RUBEN 0.5 MG X 11 & 1 MG X 42 TABS 0.5mg daily for 3 days , then 0.5mg BID for 4 days, then 1mg BID VARENICLINE TARTRATE 52657090275 No Longer Active Gareth Cancino MD Active SIMVASTATIN 40 MG TABS Take one by mouth daily SIMVASTATIN 45533208354 Active Gareth Cancino MD Active TRIAMTERENE-HCTZ 37.5-25 MG CAPS Take one by mouth daily TRIAMTERENE- HCTZ 62250441354 Active Gareth Canicno MD Active CHANTIX STARTING MONTH RUBEN 0.5 [...] 3 days 2011 PREDNISONE 20 MG TAB 492112 PREDNISONE Inactive DOXYCYCLINE HYCLATE 100 MG CAP 1 cap by mouth twice daily DOXYCYCLINE HYCLATE 100 MG CAP 3599643 DOXYCYCLINE HYCLATE Inactive B-12 1000 MCG CAPS Take one by mouth daily B-12 1000 MCG CAPS CYANOCOBALAMIN Inactive VITAMIN B-6 250 MG TABS Take one by mouth daily VITAMIN B-6 250 MG TABS PYRIDOXINE HCL Inactive FOLIC ACID 800 MCG TABS Take one by mouth daily FOLIC ACID 800 MCG TABS 914640 FOLIC ACID Inactive CIPRO 500 MG TABS 1 TAB PO BID CIPRO 500 MG TABS 289970 CIPROFLOXACIN HCL Inactive OMEPRAZOLE 20 MG TBEC Take one by mouth daily OMEPRAZOLE 20 MG TBEC 006331 OMEPRAZOLE Inactive METOPROLOL SUCCINATE 50 MG TB24 1 tablet by mouth daily METOPROLOL SUCCINATE 50 MG TB24 METOPROLOL SUCCINATE Inactive BACTROBAN 2 % CREAM Apply to affected area BID BACTROBAN 2 % CREAM 352475 MUPIROCIN CALCIUM Inactive CLOBETASOL PROPIONATE 0.05 % CREA apply to hand rash bid CLOBETASOL PROPIONATE 0.05 % CREA 032931 CLOBETASOL PROPIONATE Inactive ALPRAZOLAM 0.25 MG TAB 1/2 to 1 tablet by mouth qhs prn ALPRAZOLAM 0.25 MG TAB 522993 ALPRAZOLAM Inactive WELLBUTRIN SR 150 MG ORAL [id number] take 1 tab po BID WELLBUTRIN SR 150 MG ORAL [id number] BUPROPION HCL Inactive PREDNISONE 20 MG TAB 1 tab po BID for 3 days, then 1 tab po qday for 3 days PREDNISONE 20 MG TAB 209523 PREDNISONE Inactive BACTRIM DS 800-160 MG TAB 1 tab by mouth twice daily BACTRIM DS 800-160 MG TAB 260814 TRIMETHOPRIM-SULFAMETHOXAZOLE Inactive LEVAQUIN 500 MG TAB 1 tablet by mouth daily LEVAQUIN 500 MG TAB 165574 LEVOFLOXACIN Inactive KEFLEX 500 MG CAP 1 po TID x 10 days KEFLEX 500 MG CAP 724331 CEPHALEXIN Inactive BACTRIM DS 800-160 MG TAB 1 tab by mouth twice daily BACTRIM DS 800-160 MG TAB 320643 TRIMETHOPRIM-SULFAMETHOXAZOLE Inactive Vital Signs Date Name Value [...] Panel - Chemistry sodium, serum 133 mmol/L 077-185 3717/08/24 potassium, serum 4.4 mmol/L 3.5-5.2 chloride, serum 95 mmol/L 98-107 carbon dioxide, venous blood 33.0 mmol/L 21.0-32.0 blood glucose 107 mg/dL 65-110 calcium, serum 8.8 mg/dL 8.5-10.1 urea nitrogen, blood 12 mg/dL 7-18 creatinine, serum 0.69 mg/dL 0.55-1.30 Lab Report: CBC, Basic Metabolic Panel - Chemistry sodium, serum 132 mmol/L 056-963 9617/10/12 potassium, serum 4.7 mmol/L 3.5-5.2 chloride, serum [...] ... - Chemistry cholesterol, serum 195 mg/dL 686-601 7438/12/02 triglyceride, serum, fasting 74 mg/dL 30-200 HDL cholesterol, serum 52 mg/dL 32-96 LDL cholesterol, serum 128 mg/dL 0-130 sodium, serum 134 mmol/L 590-155 3537/12/02 carbon dioxide, venous blood 30.3 mmol/L 21.0-32.0 [...] 5.0-8.5 Encounters Code Encounter Date Provider Facility CPT-27487 Level 4 Est. Patient 09:00:18 CDT Gareth Cancino MD [facility]-67420 Level 3 Est. Patient 15:12:03 CDT Gareth Cancino MD [facility] CPT-32393 Level 3 Est. Patient 23:08:20 CDT Gareth Cancino MD [facility]-44931 Level 4 Est. Patient 20:40:10 CDT Gareth Cancino MD [facility]-05848 Level 4 Est. Patient 19:50:11 CDT Gareth Cancino MD [facility] CPT-11965 Level 3 Est. Patient 11:00:13 CDT Gareth Cancino MD [facility]-46014 Level 4 Est. Patient 11:20:21 CDT Gareth Cancino MD [facility]-21225 Level 4 Est. Patient 09:22:18 [employer] INS[employer] CLAIM EXAMINER Gareth Cancino MD [facility] CPT-56565 Level 3 Est. Patient 09:48:04 CDT Gareth Cancino MD [facility]-71850 Level 3 Est. Patient 10:13:16 CDT Gareth Cancino MD [facility] CPT-82712 Level 2 Est. Patient 18:36:56 CDT Gareth Cancino MD [facility] CPT-83739 Level 4 Est. Patient 13:50:53 CDT Gareth Cancino MD [facility] CPT-66921 Level 3 Est. Patient 14:58:33 [employer] INSURANCE CLAIM EXAMINER Gareth Cancino MD [facility]-59326 Level 4 Est. Patient 09:25:57 CDT Gareth Cancino MD [facility]-49984 Level 3 Est. Patient 20:39:33 CDT Noman Edwards DO [facility] CPT-41605 Level 2 Est. Patient 13:17:39 CDT Gareth Cancino MD [facility] CPT-67055 Level 3 Est. Patient 13:37:20 CDT Gareth Cancino MD [facility] CPT-03972 Level 3 Est. Patient 18:09:08 CDT Gareth Cancino MD [facility] CPT-42228 Level 4 Est. Patient 09:59:07 CDT Gareth Cancino MD [facility] Procedures Code Procedure Name Date Entry Date Standard Description CPT-TCMM Transitional Care Mgmt-Moderate 14:43:38 CDT CPT-53230 Venipuncture Draw Fee 10:33:47 CDT CPT-91460 BMP - LAB USE ONLY 10:33:46 CDT CPT-Cryo Cryotherapy 15:12:03 CDT CPT-41500 LS spine AP and Lat - XRAY USE ONLY 10:31:51 CDT 07/27 CPT-69159 Punch biopsy 1 lsn 20:40:09 CDT CPT-G0008 Administration of Influenza Virus Vaccine 10:04:48 [employer] CLAIM EXAMINER CPT-64936 Fluzone High-Dose Intramuscular Suspension 10:04:48 [employer] INS[employer]ANCE CLAIM EXAMINER CPT-52319 Ribs unilat w PA chst min 3V 10:45:40 CDT CPT-LR Lesion Removal 13:14:55 CDT CPT-Cryo Cryotherapy 13:14:55 CDT CPT-68802 Venipuncture Draw Fee 10:25:49 CDT CPT-07678 Administration single or combination vaccine inc oral 13 :22:14 [employer] INSURANCE CLAIM EXAMINER CPT-04591 Influenza High Dose age 65+ 13:22:14 [employer]OMO[employer] INSURANCE CLAIM EXAMINER
--- OUTSIDE RECORDS SUMMARY | 2016-12-06 08:33 | XMS REPORT | Clinical Summary ---
Author Author Admin, HILARIA Organization [employer] Address Unknown Phone Unavailable Allergies, Adverse Reactions, [...] cause Skin lesion 709.9 Active Blanca Castillo METEOROLOGICAL AIDE Unspecified disorder of skin and subcutaneous tissue Folliculitis 704.8 Active Gareth Cancino MD Other specified diseases of hair and hair follicles Low back pain, chronic 724.2 Active Gareth Cancino MD Lumbago Frequency of urination 788.41 Active Negin Garcia OUTBOARD MOTOR TESTER Urinary frequency Actinic keratosis 702.0 Active Gareth [...] MG ORAL TABS 1 tab daily AZITHROMYCIN 53828692681 No Longer Active Gareth Cancino MD Active ZITHROMAX 250 MG TAB 2 po today, then 1 po q days 2-5 AZITHROMYCIN 40872663362 No Longer Active Tangela Forte Active IPRATROPIUM-ALBUTEROL 0.5-2.5 (3) MG/3ML INH SOLN nebulize 1 vial every 6hrs prn shortness of breath IPRATROPIUM-ALBUTEROL 37469367148 Active Gareth Cancino MD Active FENTANYL 25 MCG/HR PT72 Apply to clean, dry skin and change every 72 hours FENTANYL 03308247787 Active Gareth Cancino MD Active WELLBUTRIN SR 150 MG ORAL [id number] take 1 tab po BID BUPROPION HCL 64418991113 No Longer Active Gareth Cancino MD Active ZOFRAN 4 MG ORAL TABS 1 by mouth every 6 hours prn nausea ONDANSETRON HCL 95435293409 Active Tangela Forte Active TRAMADOL HCL 50 MG TABS 1 po tid PRN TRAMADOL HCL 13481507661 Active Gareth Cancino MD Active HYDROCODONE-ACETAMINOPHEN 5-325 MG TABS 1 tab by mouth every 6 hours as needed for bck pain HYDROCODONE-ACETAMINOPHEN 35795794292 Active Gareth Cancino MD Active ALPRAZOLAM 0.25 MG TAB 1/2 to 1 tablet by mouth qhs prn ALPRAZOLAM 04662438550 No Longer Active Gareth Cancino MD Active CLOBETASOL PROPIONATE 0.05 % CREA apply to hand rash bid CLOBETASOL PROPIONATE 27316555597 No Longer Active Gareth Cancino MD Active BACTROBAN 2 % CREAM Apply to affected area BID MUPIROCIN CALCIUM 88325050072 No Longer Active Gareth Cancino MD Active LISINOPRIL 20 MG TABS 1 tablet by mouth daily for high blood pressure 10/14 LISINOPRIL 28911432537 Active Gareth Cancino MD Active BACTRIM DS 800-160 MG TAB 1 tab by mouth twice daily TRIMETHOPRIM-SULFAMETHOXAZOLE 04012273875 No Longer Active Gareth Cancino MD Active METOPROLOL SUCCINATE ER 100 MG [id number] 1 pill by mouth daily, for blood pressure METOPROLOL SUCCINATE 37943052200 Active Gareth Cancino MD Active KEFLEX 500 MG CAP 1 po TID x 10 days CEPHALEXIN 20136826231 No Longer Active Blanca Castillo APRN Active METOPROLOL SUCCINATE 50 MG TB24 1 tablet by mouth daily METOPROLOL SUCCINATE 12658404281 No Longer Active Gareth Cancino MD Active OMEPRAZOLE 20 MG TBEC Take one by mouth daily OMEPRAZOLE 26785037223 No Longer Active Gareth Cancino MD Active OMEPRAZOLE 40 MG CPDR 1 tab po qday for acid reflux. OMEPRAZOLE 58554646239 Active Mary Shah APRN Active LEVAQUIN 500 MG TAB 1 tablet by mouth daily LEVOFLOXACIN 71699733666 No Longer Active Gareth Cancino MD Active ALEVE 220 MG TAB 2 tab po qd NAPROXEN SODIUM 65943791832 Active Gareth Cancino MD Active ASPIRIN 81 MG CHEW TAB 1 tablet by mouth daily ASPIRIN 05407219374 Active Gareth Cancino MD Active VENTOLIN HFA 108 (90 BASE) MCG/ACT AERS 1-2 puffs four times a day PRN shortness of breath ALBUTEROL SULFATE 48338114380 Active Mary Shah METEOROLOGICAL AIDE Active CENTRUM SILVER TABS 1 TAB PO DAILY MULTIPLE VITAMINS-MINERALS 75745934121 Active Gareth Cancino MD Active VITAMIN B12 100 MCG TABS 1 TAB PO DAILY CYANOCOBALAMIN 79002593338 Active Gareth Cancino MD Active CIPRO 500 MG TABS 1 TAB PO BID CIPROFLOXACIN HCL 95390855071 No Longer Active Gareth Cancino MD Active BACTRIM DS 800-160 MG TAB 1 tab by mouth twice daily TRIMETHOPRIM-SULFAMETHOXAZOLE 42162317985 No Longer Active Gareth Cancino MD Active PREDNISONE 20 MG TAB 1 tab po BID for 3 days, then 1 tab po qday for 3 days PREDNISONE 04750879913 No Longer Active Gareth Cancino MD Active FOLIC ACID 800 MCG TABS Take one by mouth daily FOLIC ACID 80378427165 No Longer Active Gareth Cancino MD Active VITAMIN B-6 250 MG TABS Take one by mouth daily PYRIDOXINE HCL 24996203169 No Longer Active Gareth Cancino MD Active B-12 1000 MCG CAPS Take one by mouth daily CYANOCOBALAMIN 97738985848 No Longer Active Gareth Cancino MD Active DOXYCYCLINE HYCLATE 100 MG CAP 1 cap by mouth twice daily DOXYCYCLINE HYCLATE 19232977465 No Longer Active Gareth Cancino MD Active PREDNISONE 20 MG TAB 1 po bid 3 days, then 1 po q day 3 days 2011 PREDNISONE 40986532786 No Longer Active Gareth Cancino MD Active CHANTIX STARTING MONTH RUBEN 0.5 MG X 11 & 1 MG X 42 TABS 0.5mg daily for 3 days , then 0.5mg BID for 4 days, then 1mg BID VARENICLINE TARTRATE 60925509480 No Longer Active Gareth Cancino MD Active SIMVASTATIN 40 MG TABS Take one by mouth daily SIMVASTATIN 28652022300 Active Gareth Cancino MD Active TRIAMTERENE-HCTZ 37.5-25 MG CAPS Take one by mouth daily TRIAMTERENE- HCTZ 67717252878 Active Gareth Cancino MD Active CHANTIX STARTING [...] 3 days 2011 PREDNISONE 20 MG TAB 957332 PREDNISONE Inactive DOXYCYCLINE HYCLATE 100 MG CAP 1 cap by mouth twice daily DOXYCYCLINE HYCLATE 100 MG CAP 1710103 DOXYCYCLINE HYCLATE Inactive B-12 1000 MCG CAPS Take one by mouth daily B-12 1000 MCG CAPS CYANOCOBALAMIN Inactive VITAMIN B-6 250 MG TABS Take one by mouth daily VITAMIN B-6 250 MG TABS PYRIDOXINE HCL Inactive FOLIC ACID 800 MCG TABS Take one by mouth daily FOLIC ACID 800 MCG TABS 088291 FOLIC ACID Inactive CIPRO 500 MG TABS 1 TAB PO BID CIPRO 500 MG TABS 990018 CIPROFLOXACIN HCL Inactive OMEPRAZOLE 20 MG TBEC Take one by mouth daily OMEPRAZOLE 20 MG TBEC 748783 OMEPRAZOLE Inactive METOPROLOL SUCCINATE 50 MG TB24 1 tablet by mouth daily METOPROLOL SUCCINATE 50 MG TB24 METOPROLOL SUCCINATE Inactive BACTROBAN 2 % CREAM Apply to affected area BID BACTROBAN 2 % CREAM 655821 MUPIROCIN CALCIUM Inactive CLOBETASOL PROPIONATE 0.05 % CREA apply to hand rash bid 2016/06/ 06 CLOBETASOL PROPIONATE 0.05 % CREA 138238 CLOBETASOL PROPIONATE Inactive ALPRAZOLAM 0.25 MG TAB 1/2 to 1 tablet by mouth qhs prn ALPRAZOLAM 0.25 MG TAB 820278 ALPRAZOLAM Inactive WELLBUTRIN SR 150 MG ORAL [id number] take 1 tab po BID WELLBUTRIN SR 150 MG ORAL [id number] BUPROPION HCL Inactive AZITHROMYCIN 250 MG ORAL TABS 1 tab daily AZITHROMYCIN 250 MG ORAL TABS 1779575 AZITHROMYCIN Inactive PREDNISONE 20 MG TAB 1 tab po BID for 3 days, then 1 tab po qday for 3 days PREDNISONE 20 MG TAB 067471 PREDNISONE Inactive BACTRIM DS 800-160 MG TAB 1 tab by mouth twice daily BACTRIM DS 800-160 MG TAB 501180 TRIMETHOPRIM-SULFAMETHOXAZOLE Inactive LEVAQUIN 500 MG TAB 1 tablet by mouth daily LEVAQUIN 500 MG TAB 206253 LEVOFLOXACIN Inactive KEFLEX 500 MG CAP 1 po TID x 10 days KEFLEX 500 MG CAP 084520 CEPHALEXIN Inactive BACTRIM DS 800-160 MG TAB 1 tab by mouth twice daily BACTRIM DS 800-160 MG TAB 989872 TRIMETHOPRIM-SULFAMETHOXAZOLE Inactive ZITHROMAX 250 MG TAB 2 po today, then 1 po q days 2-5 ZITHROMAX 250 MG TAB 6485518 AZITHROMYCIN Inactive Vital Signs Date Name Value [...] Panel - Chemistry sodium, serum 133 mmol/L 801-850 8245/08/24 potassium, serum 4.4 mmol/L 3.5-5.2 chloride, serum 95 mmol/L 98-107 carbon dioxide, venous blood 33.0 mmol/L 21.0-32.0 blood glucose 107 mg/dL 65-110 calcium, serum 8.8 mg/dL 8.5-10.1 urea nitrogen, blood 12 mg/dL 7-18 creatinine, serum 0.69 mg/dL 0.55-1.30 Lab Report: CBC, Basic Metabolic Panel - Chemistry sodium, serum 132 mmol/L 809-340 3854/10/12 potassium, serum 4.7 mmol/L 3.5-5.2 chloride, serum [...] CBC - Chemistry sodium, serum 136 mmol/L 237-357 0846/11/01 carbon dioxide, venous blood 32.1 mmol/L 21.0-32.0 [...] mg/g mg/g{creat} 0-29 cholesterol, serum 195 mg/dL 868-545 9961/12/02 triglyceride, serum, fasting 74 mg/dL 30-200 HDL cholesterol, serum 52 mg/dL 32-96 LDL cholesterol, serum 128 mg/dL 0-130 sodium, serum 134 mmol/L 033-789 4275/12/02 carbon dioxide, venous blood 30.3 mmol/L 21.0-32.0 [...] 5.0-8.5 Encounters Code Encounter Date Provider Facility CPT-47215 Level 3 Est. Patient 10:34:55 CDT Gareth Cancino MD [facility] CPT-93457 Level 4 Est. Patient 09:00:18 CDT Gareth Cancino MD [facility] CPT-20914 Level 3 Est. Patient 15:12:03 CDT Gareth Cancino MD [facility] CPT-16522 Level 3 Est. Patient 23:08:20 CDT Gareth Cancino MD [facility] CPT-73460 Level 4 Est. Patient 20:40:10 CDT Gareth Cancino MD [facility] CPT-06003 Level 4 Est. Patient 19:50:11 CDT Gareth Cancino MD [facility] CPT-00239 Level 3 Est. Patient 11:00:13 CDT Gareth Cancino MD [facility] CPT-18733 Level 4 Est. Patient 11:20:21 CDT Gareth Cancino MD [facility] CPT-85970 Level 4 Est. Patient 09:22:18 NURSE CHARGE RN Gareth Cancino MD [facility] CPT-51386 Level 3 Est. Patient 09:48:04 CDT Gareth Cancino MD [facility] CPT-90468 Level 3 Est. Patient 10:13:16 CDT Gareth Cancino MD [facility] CPT-07089 Level 2 Est. Patient 18:36:56 CDT Gareth Cancino MD [facility] CPT-53792 Level 4 Est. Patient 13:50:53 CDT Gareth Cancino MD [facility] CPT-33934 Level 3 Est. Patient 14:58:33 NURSE CHARGE RN Gareth Cancino MD [facility] CPT-51003 Level 4 Est. Patient 09:25:57 CDT Gareth Cancino MD [facility] CPT-86748 Level 3 Est. Patient 20:39:33 CDT Noman Edwards DO [facility] CPT-38658 Level 2 Est. Patient 13:17:39 CDT Gareht Cancino MD [facility] CPT-89335 Level 3 Est. Patient 13:37:20 CDT Gareth Cancino MD [facility] CPT-57083 Level 3 Est. Patient 18:09:08 CDT Gareth Cancino MD [facility] CPT-96391 Level 4 Est. Patient 09:59:07 CDT Gareth Cancino MD [facility] Procedures Code Procedure Name Date Entry Date Standard Description CPT-11661 CMP - LAB USE ONLY 16:31:15 CDT CPT-02754 CBC - LAB USE ONLY 16:31:14 CDT CPT-90062 Venipuncture Draw Fee 16:31:14 CDT CPT-90013 BMP - LAB USE ONLY 14:37:27 CDT CPT-50524 CBC - LAB USE ONLY 14:37:27 CDT CPT-94904 Venipuncture Draw Fee 14:37:27 CDT CPT-TCMM Transitional Care Mgmt-Moderate 14:43:38 CDT CPT-89514 Venipuncture Draw Fee 10:33:47 CDT CPT-76621 BMP - LAB USE ONLY 10:33:46 CDT CPT-Cryo Cryotherapy 15:12:03 CDT CPT-32236 LS spine AP and Lat - XRAY USE ONLY 10:31:51 CDT 07/27 CPT-33793 Punch biopsy 1 lsn 20:40:09 CDT CPT-G0008 Administration of Influenza Virus Vaccine 10:04:48 NURSE CHARGE RN CPT-85122 Fluzone High-Dose Intramuscular Suspension 10:04:48 NURSE CHARGE RN CPT-57556 Ribs unilat w PA chst min 3V 10:45:40 CDT CPT-LR Lesion Removal 13:14:55 CDT CPT-Cryo Cryotherapy 13:14:55 CDT CPT-71485 Venipuncture Draw Fee 10:25:49 CDT CPT-91644 Administration single or combination vaccine inc oral 13 :22:14 NURSE CHARGE RN CPT-27145 Influenza High Dose age 65+ 13:22:14 NURSE CHARGE RN
--- OUTSIDE RECORDS SUMMARY | 2016-12-06 08:34 | XMS REPORT | Clinical Summary ---
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 Unspecified disorder of skin and subcutaneous tissue Folliculitis 704.8 Active Gareth Cancino MD Other specified diseases of hair and hair follicles Low back pain, chronic 724.2 Active Gareth Cancino MD Lumbago Frequency of urination 788.41 Active Negin Garcia CERTIFIED DIABETES EDUCATOR Urinary frequency Actinic keratosis 702.0 Active Gareth Cancino MD Actinic keratosis Bronchitis-Acute ICD-466.0 Inactive Gareth Cancino MD Medication List Medication Instructions Start Date Stop Date Generic Name NDC Status Provider Patient Instruction ALPRAZOLAM 0.25 MG TAB 1/2 to 1 tablet by mouth qhs prn ALPRAZOLAM 91720272322 No Longer Active Gareth Cancino MD Active CLOBETASOL PROPIONATE 0.05 % CREA apply to hand rash bid CLOBETASOL PROPIONATE 82960068411 No Longer Active Gareth Cancino MD Active BACTROBAN 2 % CREAM Apply to affected area BID MUPIROCIN CALCIUM 56126187574 No Longer Active Gareth Cancino MD Active LISINOPRIL 20 MG TABS 1 tablet by mouth daily for high blood pressure 10/14 LISINOPRIL 03074777463 Active Gareth Cancino MD Active BACTRIM DS 800-160 MG TAB 1 tab by mouth twice daily TRIMETHOPRIM-SULFAMETHOXAZOLE 75994679539 No Longer Active Gareth Cancino MD Active METOPROLOL SUCCINATE ER 100 MG [id number] 1 pill by mouth daily, for blood pressure METOPROLOL SUCCINATE 94295607235 Active Gareth Cancino MD Active KEFLEX 500 MG CAP 1 po TID x 10 days CEPHALEXIN 23792747578 No Longer Active Blanca Castillo APRN Active WELLBUTRIN SR 150 MG ORAL [id number] take 1 tab po BID BUPROPION HCL 43559671729 Active Gareth Cancino MD Active METOPROLOL SUCCINATE 50 MG TB24 1 tablet by mouth daily METOPROLOL SUCCINATE 18191264513 No Longer Active Gareth Cancino MD Active OMEPRAZOLE 20 MG TBEC Take one by mouth daily OMEPRAZOLE 61751522148 No Longer Active Gareth Cancino MD Active OMEPRAZOLE 40 MG CPDR 1 tab po qday for acid reflux. OMEPRAZOLE 09218875382 Active Mary Shah APRN Active LEVAQUIN 500 MG TAB 1 tablet by mouth daily LEVOFLOXACIN 03604903879 No Longer Active Gareth Cancino MD Active ALEVE 220 MG TAB 2 tab po qd NAPROXEN SODIUM 50761164033 Active Gareth Cancino MD Active ASPIRIN 81 MG CHEW TAB 1 tablet by mouth daily ASPIRIN 15165761072 Active Gareth Cancino MD Active VENTOLIN HFA 108 (90 BASE) MCG/ACT AERS 1-2 puffs four times a day PRN shortness of breath ALBUTEROL SULFATE 55651337235 Active Mary Shah APRN Active CENTRUM SILVER TABS 1 TAB PO DAILY MULTIPLE VITAMINS-MINERALS 89481518247 Active Gareth Cancino MD Active VITAMIN B12 100 MCG TABS 1 TAB PO DAILY CYANOCOBALAMIN 24282830983 Active Gareth Cancino MD Active CIPRO 500 MG TABS 1 TAB PO BID CIPROFLOXACIN HCL 27753724820 No Longer Active Gareth Cancino MD Active BACTRIM DS 800-160 MG TAB 1 tab by mouth twice daily TRIMETHOPRIM-SULFAMETHOXAZOLE 57241208734 No Longer Active Gareth Cancino MD Active PREDNISONE 20 MG TAB 1 tab po BID for 3 days, then 1 tab po qday for 3 days PREDNISONE 98075626849 No Longer Active Gareth Cancino MD Active FOLIC ACID 800 MCG TABS Take one by mouth daily FOLIC ACID 06732015768 No Longer Active Gareth Cancino MD Active VITAMIN B-6 250 MG TABS Take one by mouth daily PYRIDOXINE HCL 74462105405 No Longer Active Gareth Cancino MD Active B-12 1000 MCG CAPS Take one by mouth daily CYANOCOBALAMIN 48820233391 No Longer Active Gareth Cancino MD Active DOXYCYCLINE HYCLATE 100 MG CAP 1 cap by mouth twice daily DOXYCYCLINE HYCLATE 09413993816 No Longer Active Gareth Cancino MD Active PREDNISONE 20 MG TAB 1 po bid 3 days, then 1 po q day 3 days 2011 PREDNISONE 00676842979 No Longer Active Gareth Cancino MD Active CHANTIX STARTING MONTH RUBEN 0.5 MG X 11 & 1 MG X 42 TABS 0.5mg daily for 3 days , then 0.5mg BID for 4 days, then 1mg BID VARENICLINE TARTRATE 91539687693 No Longer Active Gareth Cancino MD Active SIMVASTATIN 40 MG TABS Take one by mouth daily SIMVASTATIN 53527531836 Active Gareth Cancino MD Active TRIAMTERENE-HCTZ 37.5-25 MG CAPS Take one by mouth daily TRIAMTERENE- HCTZ 40525633116 Active Gareth Cancino MD Active CHANTIX STARTING [...] 3 days 2011 PREDNISONE 20 MG TAB 897462 PREDNISONE Inactive DOXYCYCLINE HYCLATE 100 MG CAP 1 cap by mouth twice daily DOXYCYCLINE HYCLATE 100 MG CAP 8817467 DOXYCYCLINE HYCLATE Inactive B-12 1000 MCG CAPS Take one by mouth daily B-12 1000 MCG CAPS CYANOCOBALAMIN Inactive VITAMIN B-6 250 MG TABS Take one by mouth daily VITAMIN B-6 250 MG TABS PYRIDOXINE HCL Inactive FOLIC ACID 800 MCG TABS Take one by mouth daily FOLIC ACID 800 MCG TABS 150264 FOLIC ACID Inactive CIPRO 500 MG TABS 1 TAB PO BID CIPRO 500 MG TABS 459995 CIPROFLOXACIN HCL Inactive OMEPRAZOLE 20 MG TBEC Take one by mouth daily OMEPRAZOLE 20 MG TBEC 966550 OMEPRAZOLE Inactive METOPROLOL SUCCINATE 50 MG TB24 1 tablet by mouth daily 2015/06/ 30 METOPROLOL SUCCINATE 50 MG TB24 METOPROLOL SUCCINATE Inactive BACTROBAN 2 % CREAM Apply to affected area BID BACTROBAN 2 % CREAM 534204 MUPIROCIN CALCIUM Inactive CLOBETASOL PROPIONATE 0.05 % CREA apply to hand rash bid CLOBETASOL PROPIONATE 0.05 % CREA 458912 CLOBETASOL PROPIONATE Inactive ALPRAZOLAM 0.25 MG TAB 1/2 to 1 tablet by mouth qhs prn ALPRAZOLAM 0.25 MG TAB 467018 ALPRAZOLAM Inactive PREDNISONE 20 MG TAB 1 tab po BID for 3 days, then 1 tab po qday for 3 days PREDNISONE 20 MG TAB 171104 PREDNISONE Inactive BACTRIM DS 800-160 MG TAB 1 tab by mouth twice daily BACTRIM DS 800-160 MG TAB 176120 TRIMETHOPRIM-SULFAMETHOXAZOLE Inactive LEVAQUIN 500 MG TAB 1 tablet by mouth daily LEVAQUIN 500 MG TAB 031439 LEVOFLOXACIN Inactive KEFLEX 500 MG CAP 1 po TID x 10 days KEFLEX 500 MG CAP 205312 CEPHALEXIN Inactive BACTRIM DS 800-160 MG TAB 1 tab by mouth twice daily BACTRIM DS 800-160 MG TAB 453583 TRIMETHOPRIM-SULFAMETHOXAZOLE Inactive Vital Signs Date Name Value [...] Panel - Chemistry sodium, serum 133 mmol/L 078-161 0676/08/24 potassium, serum 4.4 mmol/L 3.5-5.2 chloride, serum 95 mmol/L 98-107 carbon dioxide, venous blood 33.0 mmol/L 21.0-32.0 blood glucose 107 mg/dL 65-110 calcium, serum 8.8 mg/dL 8.5-10.1 urea nitrogen, blood 12 mg/dL 7-18 creatinine, serum 0.69 mg/dL 0.55-1.30 Lab Report: Lipid Panel, Comp. Metabolic Panel, CBC W/DIFF, MICROALB/CRE ... - Chemistry albumin/creatinine ratio, urine < 30 mg/g mg/g{creat} 0-29 cholesterol, serum 195 mg/dL 723-555 0274/12/02 triglyceride, serum, fasting 74 mg/dL 30-200 HDL cholesterol, serum 52 mg/dL 32-96 LDL cholesterol, serum 128 mg/dL 0-130 sodium, serum 134 mmol/L 552-193 1778/12/02 carbon dioxide, venous blood 30.3 mmol/L 21.0-32.0 [...] 5.0-8.5 Encounters Code Encounter Date Provider Facility CPT-75285 Level 3 Est. Patient 15:12:03 CDT Gareth Cancino MD [facility] CPT-06127 Level 3 Est. Patient 23:08:20 CDT Gareth Cancino MD [facility] CPT-55188 Level 4 Est. Patient 20:40:10 CDT Gareth Cancino MD [facility] CPT-01491 Level 4 Est. Patient 19:50:11 CDT Gareth Cancino MD [facility] CPT-18959 Level 3 Est. Patient 11:00:13 CDT Gareth Cancino MD [facility] CPT-82008 Level 4 Est. Patient 11:20:21 CDT Gareth Cancino MD [facility] CPT-64929 Level 4 Est. Patient 09:22:18 LARRY OPERATOR Gareth Cancino MD [facility] CPT-74692 Level 3 Est. Patient 09:48:04 CDT Gareth Cancino MD [facility] CPT-83351 Level 3 Est. Patient 10:13:16 CDT Gareth Cancino MD [facility] CPT-46240 Level 2 Est. Patient 18:36:56 CDT Gareth Cancino MD [facility] CPT-47929 Level 4 Est. Patient 13:50:53 CDT Gareth Cancino MD [facility] CPT-31477 Level 3 Est. Patient 14:58:33 LARRY OPERATOR Gareth Cancino MD [facility] CPT-39954 Level 4 Est. Patient 09:25:57 CDT Gareth aCncino MD [facility] CPT-74184 Level 3 Est. Patient 20:39:33 CDT Noman Edwards DO [facility] CPT-81497 Level 2 Est. Patient 13:17:39 CDT Gareth Cancino MD [facility] CPT-30184 Level 3 Est. Patient 13:37:20 CDT Gareth Cancino MD [facility] CPT-90852 Level 3 Est. Patient 18:09:08 CDT Gareth Cancino MD [facility] CPT-04082 Level 4 Est. Patient 09:59:07 CDT Gareth Cancino MD [facility] Procedures Code Procedure Name Date Entry Date Standard Description CPT-54223 Venipuncture Draw Fee 10:33:47 CDT CPT-02900 BMP - LAB USE ONLY 10:33:46 CDT CPT-Cryo Cryotherapy 15:12:03 CDT CPT-44213 LS spine AP and Lat - XRAY USE ONLY 10:31:51 CDT 07/27 CPT-85176 Punch biopsy 1 lsn 20:40:09 CDT CPT-G0008 Administration of Influenza Virus Vaccine 10:04:48 LARRY OPERATOR CPT-57400 Fluzone High-Dose Intramuscular Suspension 10:04:48 LARRY OPERATOR CPT-09090 Ribs unilat w PA chst min 3V 10:45:40 CDT CPT-LR Lesion Removal 13:14:55 CDT CPT-Cryo Cryotherapy 13:14:55 CDT CPT-68079 Venipuncture Draw Fee 10:25:49 CDT CPT-78625 Administration single or combination vaccine inc oral 13 :22:14 LARRY OPERATOR CPT-59734 Influenza High Dose age 65+ 13:22:14 LARRY OPERATOR
--- OUTSIDE RECORDS SUMMARY | 2016-12-06 08:35 | XMS REPORT | Clinical Summary ---
Author Author Admin, HILARIA Organization [employer] Address Unknown Phone Unavailable Allergies, Adverse Reactions, [...] PT72 1 patch every 72 hours FENTANYL 49302633255 Active Mary Shah APRN Active PREDNISONE 20 MG TAB take 3 tabs daily for 3 days, 2 tabs daily for 3 days, 1 tab daily for 3 days, 1/2 tab daily for 4 days PREDNISONE 41265085266 No Longer Active Mary Shah APRN Active LEVAQUIN 500 MG TAB 1 tablet by mouth daily for 7 days LEVOFLOXACIN 03520022873 Active Marylennox Shah APRN Active AZITHROMYCIN 250 MG TABS 2 po qd x 1 day, then 1 po qd x 4 days AZITHROMYCIN 55482801002 No Longer Active Danuta Modi Active AZITHROMYCIN 250 MG TABS 2 po qd x 1 day, then 1 po qd x 4 days AZITHROMYCIN 24018949734 No Longer Active Tangela Rameseret Active HYDROCODONE-ACETAMINOPHEN 5-325 MG TABS 1 tab by mouth every 6 hours as needed for bck pain HYDROCODONE-ACETAMINOPHEN 96978360450 No Longer Active Gareth Cancino MD Active ALPRAZOLAM 0.25 MG TAB 1 tablet by mouth q hs prn ALPRAZOLAM 37393383862 Active Gareth Cancino MD Active AZITHROMYCIN 250 MG ORAL TABS 1 tab daily AZITHROMYCIN 97184983889 No Longer Active Gareth Cancino MD Active ZITHROMAX 250 MG TAB 2 po today, then 1 po q days 2-5 AZITHROMYCIN 81961480624 No Longer Active Tangelashar Forte Active IPRATROPIUM-ALBUTEROL 0.5-2.5 (3) MG/3ML INH SOLN nebulize 1 vial every 6hrs prn shortness of breath IPRATROPIUM-ALBUTEROL 81238267403 Active Gareth Cancino MD Active FENTANYL 25 MCG/HR PT72 Apply to clean, dry skin and change every 72 hours FENTANYL 99784672941 No Longer Active Gareth Cancino MD Active WELLBUTRIN SR 150 MG ORAL [id number] take 1 tab po BID BUPROPION HCL 43075234806 No Longer Active Gareth Cancino MD Active ZOFRAN 4 MG ORAL TABS 1 by mouth every 6 hours prn nausea ONDANSETRON HCL 04329219726 Active Tanegla Forte Active TRAMADOL HCL 50 MG TABS 1 po tid PRN TRAMADOL HCL 53833095787 Active Gareth Cancino MD Active ALPRAZOLAM 0.25 MG TAB 1/2 to 1 tablet by mouth qhs prn ALPRAZOLAM 18603188260 No Longer Active Gareth Cancino MD Active CLOBETASOL PROPIONATE 0.05 % CREA apply to hand rash bid CLOBETASOL PROPIONATE 73204603435 No Longer Active Gareth Cancino MD Active BACTROBAN 2 % CREAM Apply to affected area BID MUPIROCIN CALCIUM 38231760902 No Longer Active Gareth Cancino MD Active LISINOPRIL 20 MG TABS 1 tablet by mouth daily for high blood pressure 10/14 LISINOPRIL 47523424077 Active Mary Shah APRN Active BACTRIM DS 800-160 MG TAB 1 tab by mouth twice daily TRIMETHOPRIM-SULFAMETHOXAZOLE 53945233494 No Longer Active Gareth Cancino MD Active METOPROLOL SUCCINATE ER 100 MG [id number] 1 pill by mouth daily, for blood pressure METOPROLOL SUCCINATE 37246335409 Active Mary Shah APRN Active KEFLEX 500 MG CAP 1 po TID x 10 days CEPHALEXIN 46121446929 No Longer Active Blanca Castillo APRN Active METOPROLOL SUCCINATE 50 MG TB24 1 tablet by mouth daily METOPROLOL SUCCINATE 36835789402 No Longer Active Gareth Cancino MD Active OMEPRAZOLE 20 MG TBEC Take one by mouth daily OMEPRAZOLE 91442879518 No Longer Active Gareth Cancino MD Active OMEPRAZOLE 40 MG CPDR 1 tab po qday for acid reflux. OMEPRAZOLE 65136162948 Active Mary Shah APRN Active LEVAQUIN 500 MG TAB 1 tablet by mouth daily LEVOFLOXACIN 91660989848 No Longer Active Gareth Cancino MD Active ALEVE 220 MG TAB 2 tab po qd NAPROXEN SODIUM 75456707836 Active Gareth Cancino MD Active ASPIRIN 81 MG CHEW TAB 1 tablet by mouth daily ASPIRIN 33310279687 Active Gareth Cancino MD Active VENTOLIN HFA 108 (90 BASE) MCG/ACT AERS 1-2 puffs four times a day PRN shortness of breath ALBUTEROL SULFATE 20628862937 Active Mary Shah PLUSH CUTTER Active CENTRUM SILVER TABS 1 TAB PO DAILY MULTIPLE VITAMINS-MINERALS 28782910595 Active Gareth Cancino MD Active VITAMIN B12 100 MCG TABS 1 TAB PO DAILY CYANOCOBALAMIN 83177538950 Active Gareth Cancino MD Active CIPRO 500 MG TABS 1 TAB PO BID CIPROFLOXACIN HCL 02844803123 No Longer Active Gareth Cancino MD Active BACTRIM DS 800-160 MG TAB 1 tab by mouth twice daily TRIMETHOPRIM-SULFAMETHOXAZOLE 64078427079 No Longer Active Gareth Cancino MD Active PREDNISONE 20 MG TAB 1 tab po BID for 3 days, then 1 tab po qday for 3 days PREDNISONE 20228271682 No Longer Active Gareth Cancino MD Active FOLIC ACID 800 MCG TABS Take one by mouth daily FOLIC ACID 83466471671 No Longer Active Gareth Cancino MD Active VITAMIN B-6 250 MG TABS Take one by mouth daily PYRIDOXINE HCL 64807952363 No Longer Active Gareth Cancino MD Active B-12 1000 MCG CAPS Take one by mouth daily CYANOCOBALAMIN 34157547800 No Longer Active Gareth Cancino MD Active DOXYCYCLINE HYCLATE 100 MG CAP 1 cap by mouth twice daily DOXYCYCLINE HYCLATE 59106632727 No Longer Active Gareth Cancino MD Active PREDNISONE 20 MG TAB 1 po bid 3 days, then 1 po q day 3 days 2011 PREDNISONE 11635928230 No Longer Active Gareth Cancino MD Active CHANTIX STARTING MONTH RUBEN 0.5 MG X 11 & 1 MG X 42 TABS 0.5mg daily for 3 days , then 0.5mg BID for 4 days, then 1mg BID VARENICLINE TARTRATE 92388508793 No Longer Active Gareth Cancino MD Active SIMVASTATIN 40 MG TABS Take one by mouth daily SIMVASTATIN 62346636016 Active Gareth Cancino MD Active TRIAMTERENE-HCTZ 37.5-25 MG CAPS Take one by mouth daily TRIAMTERENE- HCTZ 83541756371 Active Gareth Cancino MD Active CHANTIX STARTING [...] 3 days 2011 PREDNISONE 20 MG TAB 783588 PREDNISONE Inactive DOXYCYCLINE HYCLATE 100 MG CAP 1 cap by mouth twice daily DOXYCYCLINE HYCLATE 100 MG CAP 8468964 DOXYCYCLINE HYCLATE Inactive B-12 1000 MCG CAPS Take one by mouth daily B-12 1000 MCG CAPS CYANOCOBALAMIN Inactive VITAMIN B-6 250 MG TABS Take one by mouth daily VITAMIN B-6 250 MG TABS PYRIDOXINE HCL Inactive FOLIC ACID 800 MCG TABS Take one by mouth daily FOLIC ACID 800 MCG TABS 910378 FOLIC ACID Inactive CIPRO 500 MG TABS 1 TAB PO BID CIPRO 500 MG TABS 108877 CIPROFLOXACIN HCL Inactive OMEPRAZOLE 20 MG TBEC Take one by mouth daily OMEPRAZOLE 20 MG TBEC 263897 OMEPRAZOLE Inactive METOPROLOL SUCCINATE 50 MG TB24 1 tablet by mouth daily METOPROLOL SUCCINATE 50 MG TB24 METOPROLOL SUCCINATE Inactive BACTROBAN 2 % CREAM Apply to affected area BID BACTROBAN 2 % CREAM 031307 MUPIROCIN CALCIUM Inactive CLOBETASOL PROPIONATE 0.05 % CREA apply to hand rash bid CLOBETASOL PROPIONATE 0.05 % CREA 299339 CLOBETASOL PROPIONATE Inactive ALPRAZOLAM 0.25 MG TAB 1/2 to 1 tablet by mouth qhs prn ALPRAZOLAM 0.25 MG TAB 172842 ALPRAZOLAM Inactive WELLBUTRIN SR 150 MG ORAL [id number] take 1 tab po BID WELLBUTRIN SR 150 MG ORAL [id number] BUPROPION HCL Inactive AZITHROMYCIN 250 MG ORAL TABS 1 tab daily AZITHROMYCIN 250 MG ORAL TABS 0001973 AZITHROMYCIN Inactive HYDROCODONE-ACETAMINOPHEN 5-325 MG TABS 1 tab by mouth every 6 hours as needed for bck pain HYDROCODONE-ACETAMINOPHEN 5-325 MG TABS 821701 HYDROCODONE-ACETAMINOPHEN Inactive PREDNISONE 20 MG TAB 1 tab po BID for 3 days, then 1 tab po qday for 3 days PREDNISONE 20 MG TAB 598368 PREDNISONE Inactive BACTRIM DS 800-160 MG TAB 1 tab by mouth twice daily BACTRIM DS 800-160 MG TAB 580886 TRIMETHOPRIM-SULFAMETHOXAZOLE Inactive LEVAQUIN 500 MG TAB 1 tablet by mouth daily LEVAQUIN 500 MG TAB 697756 LEVOFLOXACIN Inactive KEFLEX 500 MG CAP 1 po TID x 10 days KEFLEX 500 MG CAP 521616 CEPHALEXIN Inactive BACTRIM DS 800-160 MG TAB 1 tab by mouth twice daily BACTRIM DS 800-160 MG TAB 19820425 TRIMETHOPRIM-SULFAMETHOXAZOLE Inactive FENTANYL 25 MCG/HR PT72 Apply to clean, dry skin and change every 72 hours FENTANYL 25 MCG/HR PT72 927358 FENTANYL Inactive ZITHROMAX 250 MG TAB 2 po today, then 1 po q days 2-5 ZITHROMAX 250 MG TAB 9882812 AZITHROMYCIN Inactive AZITHROMYCIN 250 MG TABS 2 po qd x 1 day, then 1 po qd x 4 days AZITHROMYCIN 250 MG TABS 6526763 AZITHROMYCIN Inactive AZITHROMYCIN 250 MG TABS 2 po qd x 1 day, then 1 po qd x 4 days AZITHROMYCIN 250 MG TABS 6852822 AZITHROMYCIN Inactive PREDNISONE 20 MG TAB take 3 tabs daily for 3 days, 2 tabs daily for 3 days, 1 tab daily for 3 days, 1/2 tab daily for 4 days PREDNISONE 20 MG TAB 271203 PREDNISONE Inactive Vital Signs Date Name Value [...] Panel - Chemistry sodium, serum 133 mmol/L 836-270 8940/08/24 potassium, serum 4.4 mmol/L 3.5-5.2 chloride, serum 95 mmol/L 98-107 carbon dioxide, venous blood 33.0 mmol/L 21.0-32.0 blood glucose 107 mg/dL 65-110 calcium, serum 8.8 mg/dL 8.5-10.1 urea nitrogen, blood 12 mg/dL 7-18 creatinine, serum 0.69 mg/dL 0.55-1.30 Lab Report: CBC, Basic Metabolic Panel - Chemistry sodium, serum 132 mmol/L 823-581 9989/10/12 potassium, serum 4.7 mmol/L 3.5-5.2 chloride, serum [...] CBC - Chemistry sodium, serum 136 mmol/L 478-703 5076/11/01 carbon dioxide, venous blood 32.1 mmol/L 21.0-32.0 [...] Negative Encounters Code Encounter Date Provider Facility CPT-46073 Level 3 Est. Patient 09:05:25 [employer] Mary Shah APRN [facility] CPT-87890 Level 3 Est. Patient 20:53:25 [employer] Gareth Cancino MD [facility] CPT-70965 Level 3 Est. Patient 10:34:55 CDT Gareth Cancino MD [facility] CPT-72959 Level 4 Est. Patient 09:00:18 CDT Gareth Cancino MD [facility] CPT-45835 Level 3 Est. Patient 15:12:03 CDT Gareth Cancino MD [facility] CPT-25455 Level 3 Est. Patient 23:08:20 CDT Gareth Cancino MD [facility] CPT-19711 Level 4 Est. Patient 20:40:10 CDT Gareth Cancino MD [facility] CPT-35090 Level 4 Est. Patient 19:50:11 CDT Gareth Cancino MD [facility] CPT-00490 Level 3 Est. Patient 11:00:13 CDT Gareth Cnacino MD [facility] CPT-94980 Level 4 Est. Patient 11:20:21 CDT Gareth Cancino MD [facility] CPT-08018 Level 4 Est. Patient 09:22:18 [employer] Gareth Cancino MD [facility] CPT-62395 Level 3 Est. Patient 09:48:04 CDT Gareth Cancino MD [facility] CPT-26166 Level 3 Est. Patient 10:13:16 CDT Gareth Cancino MD [facility] CPT-31896 Level 2 Est. Patient 18:36:56 CDT Gareth Cancino MD [facility] CPT-24638 Level 4 Est. Patient 13:50:53 CDT Gareth Cancino MD [facility] CPT-63685 Level 3 Est. Patient 14:58:33 [employer] Gareth Cancino MD [facility] CPT-05292 Level 4 Est. Patient 09:25:57 CDT Gareth Cancino MD [facility] CPT-55197 Level 3 Est. Patient 20:39:33 CDT Noman Edwards DO [facility] CPT-17497 Level 2 Est. Patient 13:17:39 CDT Gareth Cancino MD [facility]-24101 Level 3 Est. Patient 13:37:20 CDT Gareth Cancino MD [facility] CPT-80460 Level 3 Est. Patient 18:09:08 CDT Gareth Cancino MD [facility] CPT-68412 Level 4 Est. Patient 09:59:07 CDT Gareth Cancino MD [facility] Procedures Code Procedure Name Date Entry Date Standard Description CPT-000 Give Appropriate Flu Vaccine 09:29:52 [employer] CPT-000 Give Appropriate Flu Vaccine 09:22:20 [employer] CPT-94235 TSH - LAB USE ONLY 08:11:40 [employer] CPT-70028 Free T4 - LAB USE ONLY 08:11:40 [employer] CPT-30297 Venipuncture Draw Fee 08:11:40 [employer] CPT-18793 UA w micro - LAB USE ONLY 14:26:22 [employer] CPT-G0438 Initial Annual Wellness Exam 20:53:25 [employer] CPT-G0009 Administration of Pneumococcal Vaccine 11:42:53 [employer] CPT-85536 Prevnar 13 Intramuscular Suspension 11:42:53 [employer] 01/07 CPT-64612 First Vx - Ix admin for Medicare patients 11:39:44 [employer] CPT-89617 Fluzone High-Dose Intramuscular Suspension 11:39:44 [employer] CPT-60348 Prevnar 13 Intramuscular Suspension 09:29:52 [employer] 01/07 CPT-35048 CMP - LAB USE ONLY 16:31:15 CDT CPT-49912 CBC - LAB USE ONLY 16:31:14 CDT CPT-48400 Venipuncture Draw Fee 16:31:14 CDT CPT-98866 BMP - LAB USE ONLY 14:37:27 CDT CPT-74605 CBC - LAB USE ONLY 14:37:27 CDT CPT-50606 Venipuncture Draw Fee 14:37:27 CDT CPT-TCMM Transitional Care Mgmt-Moderate 14:43:38 CDT CPT-64247 Venipuncture Draw Fee 10:33:47 CDT CPT-35785 BMP - LAB USE ONLY 10:33:46 CDT CPT-Cryo Cryotherapy 15:12:03 CDT CPT-68570 LS spine AP and Lat - XRAY USE ONLY 10:31:51 CDT 07/27 CPT-83984 Punch biopsy 1 lsn 20:40:09 CDT CPT-G0008 Administration of Influenza Virus Vaccine 10:04:48 [employer] CPT-85948 Fluzone High-Dose Intramuscular Suspension 10:04:48 [employer] CPT-57037 Ribs unilat w PA chst min 3V 10:45:40 CDT CPT-LR Lesion Removal 13:14:55 CDT CPT-Cryo Cryotherapy 13:14:55 CDT CPT-43729 Venipuncture Draw Fee 10:25:49 CDT CPT-94693 Administration single or combination vaccine inc oral 13 :22:14 [employer] CPT-66728 Influenza High Dose age 65+ 13:22:14 [employer]
--- OUTSIDE RECORDS SUMMARY | 2016-12-06 08:36 | XMS REPORT | Clinical Summary ---
Author Author Admin, HILARIA Organization [employer] Address Unknown Phone Unavailable Allergies, Adverse Reactions, [...] cause Skin lesion 709.9 Active Blanca Castillo TIMBER MANAGEMENT SPECIALIST Unspecified disorder of skin and subcutaneous tissue Folliculitis 704.8 Active Gareth Cancino MD Other specified diseases of hair and hair follicles Low back pain, chronic 724.2 Active Gareth Cancino MD Lumbago Frequency of urination 788.41 Active Negin Garcia RISK CONTROL MANAGER Urinary frequency Actinic keratosis 702.0 Active [...] hours as needed for bck pain HYDROCODONE-ACETAMINOPHEN 10700191782 No Longer Active Gareth Cancino MD Active FENTANYL 12 MCG/HR PT72 Apply to clean, dry skin and change every 72 hours FENTANYL 45716998254 Active Gareth Cancino MD Active ALPRAZOLAM 0.25 MG TAB 1 tablet by mouth q hs prn ALPRAZOLAM 93960683583 Active Gareth Cancino MD Active AZITHROMYCIN 250 MG ORAL TABS 1 tab daily AZITHROMYCIN 84757038851 No Longer Active Gareth Cancino MD Active ZITHROMAX 250 MG TAB 2 po today, then 1 po q days 2-5 AZITHROMYCIN 12308719676 No Longer Active Tangela Forte Active IPRATROPIUM-ALBUTEROL 0.5-2.5 (3) MG/3ML INH SOLN nebulize 1 vial every 6hrs prn shortness of breath IPRATROPIUM-ALBUTEROL 47745848384 Active Gareth Cancino MD Active FENTANYL 25 MCG/HR PT72 Apply to clean, dry skin and change every 72 hours FENTANYL 65638284171 No Longer Active Gareth Cancino MD Active WELLBUTRIN SR 150 MG ORAL [id number] take 1 tab po BID BUPROPION HCL 49669459572 No Longer Active Gareth Cancino MD Active ZOFRAN 4 MG ORAL TABS 1 by mouth every 6 hours prn nausea ONDANSETRON HCL 47728380775 Active Tangela Forte Active TRAMADOL HCL 50 MG TABS 1 po tid PRN TRAMADOL HCL 43298192771 Active Gareth Cancino MD Active ALPRAZOLAM 0.25 MG TAB 1/2 to 1 tablet by mouth qhs prn ALPRAZOLAM 84378066034 No Longer Active Gareth Cancino MD Active CLOBETASOL PROPIONATE 0.05 % CREA apply to hand rash bid CLOBETASOL PROPIONATE 40359807010 No Longer Active Gareth Cancino MD Active BACTROBAN 2 % CREAM Apply to affected area BID MUPIROCIN CALCIUM 03836760761 No Longer Active Gareth Cancino MD Active LISINOPRIL 20 MG TABS 1 tablet by mouth daily for high blood pressure 10/14 LISINOPRIL 26678415283 Active Gareth Cancino MD Active BACTRIM DS 800-160 MG TAB 1 tab by mouth twice daily TRIMETHOPRIM-SULFAMETHOXAZOLE 64489728267 No Longer Active Gareth Cancino MD Active METOPROLOL SUCCINATE ER 100 MG [id number] 1 pill by mouth daily, for blood pressure METOPROLOL SUCCINATE 15473736931 Active Gareth Cancino MD Active KEFLEX 500 MG CAP 1 po TID x 10 days CEPHALEXIN 71414037542 No Longer Active Blanca Castillo APRN Active METOPROLOL SUCCINATE 50 MG TB24 1 tablet by mouth daily METOPROLOL SUCCINATE 44434902847 No Longer Active Gareth Cancino MD Active OMEPRAZOLE 20 MG TBEC Take one by mouth daily OMEPRAZOLE 21701573984 No Longer Active Gareth Cancino MD Active OMEPRAZOLE 40 MG CPDR 1 tab po qday for acid reflux. OMEPRAZOLE 11198732092 Active Mary Shah APRN Active LEVAQUIN 500 MG TAB 1 tablet by mouth daily LEVOFLOXACIN 54272638554 No Longer Active Garteh Cancino MD Active ALEVE 220 MG TAB 2 tab po qd NAPROXEN SODIUM 47373748362 Active Gareth Cancino MD Active ASPIRIN 81 MG CHEW TAB 1 tablet by mouth daily ASPIRIN 27206298480 Active Gareth Cancino MD Active VENTOLIN HFA 108 (90 BASE) MCG/ACT AERS 1-2 puffs four times a day PRN shortness of breath ALBUTEROL SULFATE 42336823735 Active Mary Shah APRN Active CENTRUM SILVER TABS 1 TAB PO DAILY MULTIPLE VITAMINS-MINERALS 68789985770 Active Gareth Cancino MD Active VITAMIN B12 100 MCG TABS 1 TAB PO DAILY CYANOCOBALAMIN 45937946484 Active Gareth Cancino MD Active CIPRO 500 MG TABS 1 TAB PO BID CIPROFLOXACIN HCL 17511427319 No Longer Active Gareth Cancino MD Active BACTRIM DS 800-160 MG TAB 1 tab by mouth twice daily TRIMETHOPRIM-SULFAMETHOXAZOLE 51383299290 No Longer Active Gareth Cancino MD Active PREDNISONE 20 MG TAB 1 tab po BID for 3 days, then 1 tab po qday for 3 days PREDNISONE 53090170239 No Longer Active Gareth Cancino MD Active FOLIC ACID 800 MCG TABS Take one by mouth daily FOLIC ACID 91609239799 No Longer Active Gareth Cancino MD Active VITAMIN B-6 250 MG TABS Take one by mouth daily PYRIDOXINE HCL 22869624684 No Longer Active Gareth Cancino MD Active B-12 1000 MCG CAPS Take one by mouth daily CYANOCOBALAMIN 34480123157 No Longer Active Gareth Cancino MD Active DOXYCYCLINE HYCLATE 100 MG CAP 1 cap by mouth twice daily DOXYCYCLINE HYCLATE 32285104854 No Longer Active Gareth Cancino MD Active PREDNISONE 20 MG TAB 1 po bid 3 days, then 1 po q day 3 days 2011 PREDNISONE 51155932012 No Longer Active Gareth Cancino MD Active CHANTIX STARTING MONTH RUBEN 0.5 MG X 11 & 1 MG X 42 TABS 0.5mg daily for 3 days , then 0.5mg BID for 4 days, then 1mg BID VARENICLINE TARTRATE 13271292522 No Longer Active Gareth Cancino MD Active SIMVASTATIN 40 MG TABS Take one by mouth daily SIMVASTATIN 39541154170 Active Gareth Cancino MD Active TRIAMTERENE-HCTZ 37.5-25 MG CAPS Take one by mouth daily TRIAMTERENE- HCTZ 94105832523 Active Gareth Cancino MD Active CHANTIX STARTING [...] 3 days 2011 PREDNISONE 20 MG TAB 899311 PREDNISONE Inactive DOXYCYCLINE HYCLATE 100 MG CAP 1 cap by mouth twice daily DOXYCYCLINE HYCLATE 100 MG CAP 0823034 DOXYCYCLINE HYCLATE Inactive B-12 1000 MCG CAPS Take one by mouth daily B-12 1000 MCG CAPS CYANOCOBALAMIN Inactive VITAMIN B-6 250 MG TABS Take one by mouth daily VITAMIN B-6 250 MG TABS PYRIDOXINE HCL Inactive FOLIC ACID 800 MCG TABS Take one by mouth daily FOLIC ACID 800 MCG TABS 710219 FOLIC ACID Inactive CIPRO 500 MG TABS 1 TAB PO BID CIPRO 500 MG TABS 744972 CIPROFLOXACIN HCL Inactive OMEPRAZOLE 20 MG TBEC Take one by mouth daily OMEPRAZOLE 20 MG TBEC 002948 OMEPRAZOLE Inactive METOPROLOL SUCCINATE 50 MG TB24 1 tablet by mouth daily METOPROLOL SUCCINATE 50 MG TB24 METOPROLOL SUCCINATE Inactive BACTROBAN 2 % CREAM Apply to affected area BID BACTROBAN 2 % CREAM 553417 MUPIROCIN CALCIUM Inactive CLOBETASOL PROPIONATE 0.05 % CREA apply to hand rash bid CLOBETASOL PROPIONATE 0.05 % CREA 781536 CLOBETASOL PROPIONATE Inactive ALPRAZOLAM 0.25 MG TAB 1/2 to 1 tablet by mouth qhs prn ALPRAZOLAM 0.25 MG TAB 593629 ALPRAZOLAM Inactive WELLBUTRIN SR 150 MG ORAL [id number] take 1 tab po BID WELLBUTRIN SR 150 MG ORAL [id number] BUPROPION HCL Inactive AZITHROMYCIN 250 MG ORAL TABS 1 tab daily AZITHROMYCIN 250 MG ORAL TABS 3671534 AZITHROMYCIN Inactive HYDROCODONE-ACETAMINOPHEN 5-325 MG TABS 1 tab by mouth every 6 hours as needed for bck pain HYDROCODONE-ACETAMINOPHEN 5-325 MG TABS 669167 HYDROCODONE-ACETAMINOPHEN Inactive PREDNISONE 20 MG TAB 1 tab po BID for 3 days, then 1 tab po qday for 3 days PREDNISONE 20 MG TAB 476270 PREDNISONE Inactive BACTRIM DS 800-160 MG TAB 1 tab by mouth twice daily BACTRIM DS 800-160 MG TAB 532872 TRIMETHOPRIM-SULFAMETHOXAZOLE Inactive LEVAQUIN 500 MG TAB 1 tablet by mouth daily LEVAQUIN 500 MG TAB 799628 LEVOFLOXACIN Inactive KEFLEX 500 MG CAP 1 po TID x 10 days KEFLEX 500 MG CAP 938648 CEPHALEXIN Inactive BACTRIM DS 800-160 MG TAB 1 tab by mouth twice daily BACTRIM DS 800-160 MG TAB 319418 TRIMETHOPRIM-SULFAMETHOXAZOLE Inactive FENTANYL 25 MCG/HR PT72 Apply to clean, dry skin and change every 72 hours FENTANYL 25 MCG/HR PT72 005858 FENTANYL Inactive ZITHROMAX 250 MG TAB 2 po today, then 1 po q days 2-5 ZITHROMAX 250 MG TAB 8667677 AZITHROMYCIN Inactive Vital Signs Date Name Value [...] Panel - Chemistry sodium, serum 133 mmol/L 276-265 4624/08/24 potassium, serum 4.4 mmol/L 3.5-5.2 chloride, serum 95 mmol/L 98-107 carbon dioxide, venous blood 33.0 mmol/L 21.0-32.0 blood glucose 107 mg/dL 65-110 calcium, serum 8.8 mg/dL 8.5-10.1 urea nitrogen, blood 12 mg/dL 7-18 creatinine, serum 0.69 mg/dL 0.55-1.30 Lab Report: CBC, Basic Metabolic Panel - Chemistry sodium, serum 132 mmol/L 475-020 9898/10/12 potassium, serum 4.7 mmol/L 3.5-5.2 chloride, serum [...] CBC - Chemistry sodium, serum 136 mmol/L 611-424 6634/11/01 carbon dioxide, venous blood 32.1 mmol/L 21.0-32.0 [...] mg/g mg/g{creat} 0-29 cholesterol, serum 195 mg/dL 132-868 1181/12/02 triglyceride, serum, fasting 74 mg/dL 30-200 HDL cholesterol, serum 52 mg/dL 32-96 LDL cholesterol, serum 128 mg/dL 0-130 sodium, serum 134 mmol/L 267-708 9879/12/02 carbon dioxide, venous blood 30.3 mmol/L 21.0-32.0 [...] 5.0-8.5 Encounters Code Encounter Date Provider Facility CPT-92099 Level 3 Est. Patient 10:34:55 CDT Gareth Cancino MD [facility]-25533 Level 4 Est. Patient 09:00:18 CDT Gareth Cancino MD [facility]-84728 Level 3 Est. Patient 15:12:03 CDT Gareth Cancino MD [facility]-77352 Level 3 Est. Patient 23:08:20 CDT Gareth Cancino MD [facility]-22920 Level 4 Est. Patient 20:40:10 CDT Gareth Cancino MD [facility]-56421 Level 4 Est. Patient 19:50:11 CDT Gareth Cancino MD [facility]-24452 Level 3 Est. Patient 11:00:13 CDT Gareth Cancino MD [facility] CPT-59210 Level 4 Est. Patient 11:20:21 CDT Gareth Cancino MD [facility]-44924 Level 4 Est. Patient 09:22:18 FISH TECHNOLOGIST Gareth Cancino MD [facility]-13042 Level 3 Est. Patient 09:48:04 CDT Gareth Cancino MD [facility]-96119 Level 3 Est. Patient 10:13:16 CDT Gareth Cancino MD [facility] CPT-48473 Level 2 Est. Patient 18:36:56 CDT Gareth Cancino MD [facility]-55245 Level 4 Est. Patient 13:50:53 CDT Gareth Cancino MD [facility]-54774 Level 3 Est. Patient 14:58:33 FISH TECHNOLOGIST Gareth Cancino MD [facility] CPT-39461 Level 4 Est. Patient 09:25:57 CDT Gareth Cancino MD [facility] CPT-92910 Level 3 Est. Patient 20:39:33 CDT Noman Edwards DO [facility] CPT-52462 Level 2 Est. Patient 13:17:39 CDT Gareth Cancino MD [facility] CPT-54355 Level 3 Est. Patient 13:37:20 CDT Gareth Cancino MD [facility] CPT-19675 Level 3 Est. Patient 18:09:08 CDT Gareth Cancino MD [facility] CPT-18881 Level 4 Est. Patient 09:59:07 CDT Gareth Cancino MD [facility] Procedures Code Procedure Name Date Entry Date Standard Description CPT-G0009 Administration of Pneumococcal Vaccine 11:42:53 FISH TECHNOLOGIST CPT-67637 Prevnar 13 Intramuscular Suspension 11:42:53 FISH TECHNOLOGIST 01/07 CPT-22529 First Vx - Ix admin for Medicare patients 11:39:44 FISH TECHNOLOGIST CPT-00949 Fluzone High-Dose Intramuscular Suspension 11:39:44 FISH TECHNOLOGIST CPT-18330 Prevnar 13 Intramuscular Suspension 09:29:52 FISH TECHNOLOGIST 01/07 CPT-15193 CMP - LAB USE ONLY 16:31:15 CDT CPT-16717 CBC - LAB USE ONLY 16:31:14 CDT CPT-32453 Venipuncture Draw Fee 16:31:14 CDT CPT-85917 BMP - LAB USE ONLY 14:37:27 CDT CPT-97726 CBC - LAB USE ONLY 14:37:27 CDT CPT-91269 Venipuncture Draw Fee 14:37:27 CDT CPT-TCMM Transitional Care Mgmt-Moderate 14:43:38 CDT CPT-95037 Venipuncture Draw Fee 10:33:47 CDT CPT-37085 BMP - LAB USE ONLY 10:33:46 CDT CPT-Cryo Cryotherapy 15:12:03 CDT CPT-16455 LS spine AP and Lat - XRAY USE ONLY 10:31:51 CDT 07/27 CPT-96303 Punch biopsy 1 lsn 20:40:09 CDT CPT-G0008 Administration of Influenza Virus Vaccine 10:04:48 FISH TECHNOLOGIST CPT-05371 Fluzone High-Dose Intramuscular Suspension 10:04:48 FISH TECHNOLOGIST CPT-50577 Ribs unilat w PA chst min 3V 10:45:40 CDT CPT-LR Lesion Removal 13:14:55 CDT CPT-Cryo Cryotherapy 13:14:55 CDT CPT-56957 Venipuncture Draw Fee 10:25:49 CDT CPT-28836 Administration single or combination vaccine inc oral 13 :22:14 FISH TECHNOLOGIST CPT-71120 Influenza High Dose age 65+ 13:22:14 FISH TECHNOLOGIST
--- OUTSIDE RECORDS SUMMARY | 2016-12-06 08:37 | XMS REPORT | Clinical Summary ---
Author Author Admin, HILARIA Organization [employer] Address Unknown Phone Unavailable Allergies, Adverse Reactions, [...] 1 GM ORAL PACK as directed AZITHROMYCIN 39742853178 Active Tangela Forte Active PIROXICAM 20 MG ORAL CAPS 1 po daily as needed for arthritis/pain PIROXICAM 39072514523 Active Gareth Cancino MD Active ZITHROMAX Z-RUBEN 250 MG TABS 2 today, then 1 daily for 4 days 2016 AZITHROMYCIN 00235789630 No Longer Active Tangelashar Forte Active FENTANYL 25 MCG/HR TRANS PT72 1 patch every 72 hours FENTANYL 73559411296 Active Mary Shah APRN Active PREDNISONE 20 MG TAB take 3 tabs daily for 3 days, 2 tabs daily for 3 days, 1 tab daily for 3 days, 1/2 tab daily for 4 days PREDNISONE 39440762772 No Longer Active Mary Shah APRN Active LEVAQUIN 500 MG TAB 1 tablet by mouth daily for 7 days LEVOFLOXACIN 47411233114 Active Mary Shah APRN Active AZITHROMYCIN 250 MG TABS 2 po qd x 1 day, then 1 po qd x 4 days AZITHROMYCIN 86773252930 No Longer Active Danuta Modi Active AZITHROMYCIN 250 MG TABS 2 po qd x 1 day, then 1 po qd x 4 days AZITHROMYCIN 28419756010 No Longer Active Tangela Forte Active HYDROCODONE-ACETAMINOPHEN 5-325 MG TABS 1 tab by mouth every 6 hours as needed for bck pain HYDROCODONE-ACETAMINOPHEN 26603786319 No Longer Active Gareth Cancino MD Active ALPRAZOLAM 0.25 MG TAB 1 tablet by mouth q hs prn ALPRAZOLAM 28715450059 Active Gareth Cancino MD Active AZITHROMYCIN 250 MG ORAL TABS 1 tab daily AZITHROMYCIN 50783761701 No Longer Active Gareth Cancino MD Active ZITHROMAX 250 MG TAB 2 po today, then 1 po q days 2-5 AZITHROMYCIN 25504626945 No Longer Active Tangela Forte Active IPRATROPIUM-ALBUTEROL 0.5-2.5 (3) MG/3ML INH SOLN nebulize 1 vial every 6hrs prn shortness of breath IPRATROPIUM-ALBUTEROL 04538218226 Active Gareth Cancino MD Active FENTANYL 25 MCG/HR PT72 Apply to clean, dry skin and change every 72 hours FENTANYL 55090325419 No Longer Active Gareth Cancino MD Active WELLBUTRIN SR 150 MG ORAL [id number] take 1 tab po BID BUPROPION HCL 00275638448 No Longer Active Gareth Cancino MD Active ZOFRAN 4 MG ORAL TABS 1 by mouth every 6 hours prn nausea ONDANSETRON HCL 75117174349 Active Tangela Forte Active TRAMADOL HCL 50 MG TABS 1 po tid PRN TRAMADOL HCL 39876707025 Active Gareth Cancino MD Active ALPRAZOLAM 0.25 MG TAB 1/2 to 1 tablet by mouth qhs prn ALPRAZOLAM 18083768490 No Longer Active Gareth Cancino MD Active CLOBETASOL PROPIONATE 0.05 % CREA apply to hand rash bid CLOBETASOL PROPIONATE 19388225167 No Longer Active Gareth Cancino MD Active BACTROBAN 2 % CREAM Apply to affected area BID MUPIROCIN CALCIUM 08774838556 No Longer Active Gareth Cancino MD Active LISINOPRIL 20 MG TABS 1 tablet by mouth daily for high blood pressure 10/14 LISINOPRIL 95288124962 Active Gareth Cancino MD Active BACTRIM DS 800-160 MG TAB 1 tab by mouth twice daily TRIMETHOPRIM-SULFAMETHOXAZOLE 92511597573 No Longer Active Gareth Cancino MD Active METOPROLOL SUCCINATE ER 100 MG [id number] 1 pill by mouth daily, for blood pressure METOPROLOL SUCCINATE 06464319729 Active Gareth Cancino MD Active KEFLEX 500 MG CAP 1 po TID x 10 days CEPHALEXIN 54402740937 No Longer Active Blanca Castillo APRN Active METOPROLOL SUCCINATE 50 MG TB24 1 tablet by mouth daily METOPROLOL SUCCINATE 28145980440 No Longer Active Gareth Cancino MD Active OMEPRAZOLE 20 MG TBEC Take one by mouth daily OMEPRAZOLE 65497617261 No Longer Active Gareth Cancino MD Active OMEPRAZOLE 40 MG CPDR 1 tab po qday for acid reflux. OMEPRAZOLE 62425937876 Active Mary Shah APRN Active LEVAQUIN 500 MG TAB 1 tablet by mouth daily LEVOFLOXACIN 69560195081 No Longer Active Gareth Cancino MD Active ALEVE 220 MG TAB 2 tab po qd NAPROXEN SODIUM 13758579125 Active Gareth Cancino MD Active ASPIRIN 81 MG CHEW TAB 1 tablet by mouth daily ASPIRIN 33150884769 Active Gareth Cancino MD Active VENTOLIN HFA 108 (90 BASE) MCG/ACT AERS 1-2 puffs four times a day PRN shortness of breath ALBUTEROL SULFATE 49996011385 Active Mary Shah APRN Active CENTRUM SILVER TABS 1 TAB PO DAILY MULTIPLE VITAMINS-MINERALS 46177297635 Active Gareth Cancino MD Active VITAMIN B12 100 MCG TABS 1 TAB PO DAILY CYANOCOBALAMIN 88076148213 Active Gareth Cancino MD Active CIPRO 500 MG TABS 1 TAB PO BID CIPROFLOXACIN HCL 14368426349 No Longer Active Gareth Cancino MD Active BACTRIM DS 800-160 MG TAB 1 tab by mouth twice daily TRIMETHOPRIM-SULFAMETHOXAZOLE 18079431924 No Longer Active Gareth Cancino MD Active PREDNISONE 20 MG TAB 1 tab po BID for 3 days, then 1 tab po qday for 3 days PREDNISONE 91769906592 No Longer Active Gareth Cancino MD Active FOLIC ACID 800 MCG TABS Take one by mouth daily FOLIC ACID 98336749382 No Longer Active Gareth Cancino MD Active VITAMIN B-6 250 MG TABS Take one by mouth daily PYRIDOXINE HCL 82028249678 No Longer Active Gareth Cancino MD Active B-12 1000 MCG CAPS Take one by mouth daily CYANOCOBALAMIN 15385098937 No Longer Active Gareth Cancino MD Active DOXYCYCLINE HYCLATE 100 MG CAP 1 cap by mouth twice daily DOXYCYCLINE HYCLATE 94343410005 No Longer Active Gareth Cancino MD Active PREDNISONE 20 MG TAB 1 po bid 3 days, then 1 po q day 3 days 2011 PREDNISONE 43102536686 No Longer Active Gareth Cancino MD Active CHANTIX STARTING MONTH RUBEN 0.5 MG X 11 & 1 MG X 42 TABS 0.5mg daily for 3 days , then 0.5mg BID for 4 days, then 1mg BID VARENICLINE TARTRATE 63650139000 No Longer Active Gareth Cancino MD Active SIMVASTATIN 40 MG TABS Take one by mouth daily SIMVASTATIN 03971439215 Active Gareth Cancino MD Active TRIAMTERENE-HCTZ 37.5-25 MG CAPS Take one by mouth daily TRIAMTERENE- HCTZ 69667287596 Active Mary Shah APRN Active CHANTIX STARTING [...] 3 days 2011 PREDNISONE 20 MG TAB 221600 PREDNISONE Inactive DOXYCYCLINE HYCLATE 100 MG CAP 1 cap by mouth twice daily DOXYCYCLINE HYCLATE 100 MG CAP 4587556 DOXYCYCLINE HYCLATE Inactive B-12 1000 MCG CAPS Take one by mouth daily B-12 1000 MCG CAPS CYANOCOBALAMIN Inactive VITAMIN B-6 250 MG TABS Take one by mouth daily VITAMIN B-6 250 MG TABS PYRIDOXINE HCL Inactive FOLIC ACID 800 MCG TABS Take one by mouth daily FOLIC ACID 800 MCG TABS 062346 FOLIC ACID Inactive CIPRO 500 MG TABS 1 TAB PO BID CIPRO 500 MG TABS 927177 CIPROFLOXACIN HCL Inactive OMEPRAZOLE 20 MG TBEC Take one by mouth daily OMEPRAZOLE 20 MG TBEC 644514 OMEPRAZOLE Inactive METOPROLOL SUCCINATE 50 MG TB24 1 tablet by mouth daily METOPROLOL SUCCINATE 50 MG TB24 METOPROLOL SUCCINATE Inactive BACTROBAN 2 % CREAM Apply to affected area BID BACTROBAN 2 % CREAM 288166 MUPIROCIN CALCIUM Inactive CLOBETASOL PROPIONATE 0.05 % CREA apply to hand rash bid CLOBETASOL PROPIONATE 0.05 % CREA 198900 CLOBETASOL PROPIONATE Inactive ALPRAZOLAM 0.25 MG TAB 1/2 to 1 tablet by mouth qhs prn ALPRAZOLAM 0.25 MG TAB 988541 ALPRAZOLAM Inactive WELLBUTRIN SR 150 MG ORAL [id number] take 1 tab po BID WELLBUTRIN SR 150 MG ORAL [id number] BUPROPION HCL Inactive AZITHROMYCIN 250 MG ORAL TABS 1 tab daily AZITHROMYCIN 250 MG ORAL TABS 8153866 AZITHROMYCIN Inactive HYDROCODONE-ACETAMINOPHEN 5-325 MG TABS 1 tab by mouth every 6 hours as needed for bck pain HYDROCODONE-ACETAMINOPHEN 5-325 MG TABS 677800 HYDROCODONE-ACETAMINOPHEN Inactive PREDNISONE 20 MG TAB 1 tab po BID for 3 days, then 1 tab po qday for 3 days PREDNISONE 20 MG TAB 012591 PREDNISONE Inactive BACTRIM DS 800-160 MG TAB 1 tab by mouth twice daily BACTRIM DS 800-160 MG TAB 635841 TRIMETHOPRIM-SULFAMETHOXAZOLE Inactive LEVAQUIN 500 MG TAB 1 tablet by mouth daily LEVAQUIN 500 MG TAB 175477 LEVOFLOXACIN Inactive KEFLEX 500 MG CAP 1 po TID x 10 days KEFLEX 500 MG CAP 454022 CEPHALEXIN Inactive BACTRIM DS 800-160 MG TAB 1 tab by mouth twice daily BACTRIM DS 800-160 MG TAB 063530 TRIMETHOPRIM-SULFAMETHOXAZOLE Inactive FENTANYL 25 MCG/HR PT72 Apply to clean, dry skin and change every 72 hours FENTANYL 25 MCG/HR PT72 137163 FENTANYL Inactive ZITHROMAX 250 MG TAB 2 po today, then 1 po q days 2-5 ZITHROMAX 250 MG TAB 3964484 AZITHROMYCIN Inactive AZITHROMYCIN 250 MG TABS 2 po qd x 1 day, then 1 po qd x 4 days AZITHROMYCIN 250 MG TABS 3242960 AZITHROMYCIN Inactive AZITHROMYCIN 250 MG TABS 2 po qd x 1 day, then 1 po qd x 4 days AZITHROMYCIN 250 MG TABS 6288055 AZITHROMYCIN Inactive PREDNISONE 20 MG TAB take 3 tabs daily for 3 days, 2 tabs daily for 3 days, 1 tab daily for 3 days, 1/2 tab daily for 4 days PREDNISONE 20 MG TAB 691608 PREDNISONE Inactive ZITHROMAX Z-RUBEN 250 MG TABS 2 today, then 1 daily for 4 days 2016 ZITHROMAX Z-RUBEN 250 MG TABS 8957451 AZITHROMYCIN Inactive Vital Signs Date Name Value [...] Panel - Chemistry sodium, serum 133 mmol/L 236-674 7711/08/24 potassium, serum 4.4 mmol/L 3.5-5.2 chloride, serum 95 mmol/L 98-107 carbon dioxide, venous blood 33.0 mmol/L 21.0-32.0 blood glucose 107 mg/dL 65-110 calcium, serum 8.8 mg/dL 8.5-10.1 urea nitrogen, blood 12 mg/dL 7-18 creatinine, serum 0.69 mg/dL 0.55-1.30 Lab Report: CBC, Basic Metabolic Panel - Chemistry sodium, serum 132 mmol/L 892-019 1102/10/12 potassium, serum 4.7 mmol/L 3.5-5.2 chloride, serum [...] CBC - Chemistry sodium, serum 136 mmol/L 305-863 8077/11/01 carbon dioxide, venous blood 32.1 mmol/L 21.0-32.0 [...] PANEL - Chemistry cholesterol, serum 169 mg/dL 805-312 8800/05/09 HDL cholesterol, serum 54 mg/dL > OR=46 [...] mg/dL Encounters Code Encounter Date Provider Facility CPT-66226 Level 4 Est. Patient 07:23:02 CDT Gareth Cancino MD [facility] CPT-60383 Level 3 Est. Patient 09:05:25 [employer] SALES REPRESENTATIVE Mary Shah APRN [facility] CPT-06235 Level 3 Est. Patient 20:53:25 [employer] SALES REPRESENTATIVE Gareth Cancino MD [facility] CPT-74526 Level 3 Est. Patient 10:34:55 CDT Gareth Cancino MD [facility] CPT-03708 Level 4 Est. Patient 09:00:18 CDT Gareth Cancino MD [facility] CPT-62271 Level 3 Est. Patient 15:12:03 CDT Gareth Cancino MD [facility] CPT-59122 Level 3 Est. Patient 23:08:20 CDT Gareth Cancino MD [facility] CPT-07112 Level 4 Est. Patient 20:40:10 CDT Gareth Cancino MD [facility] CPT-81571 Level 4 Est. Patient 19:50:11 CDT Gareth Cancino MD [facility] CPT-20342 Level 3 Est. Patient 11:00:13 CDT Gareth Cancino MD [facility] CPT-95468 Level 4 Est. Patient 11:20:21 CDT Gareth Cancino MD [facility] CPT-98706 Level 4 Est. Patient 09:22:18 [employer] SALES REPRESENTATIVE Gareth Cancino MD [facility] CPT-18255 Level 3 Est. Patient 09:48:04 CDT Gareth Cancino MD [facility] CPT-44426 Level 3 Est. Patient 10:13:16 CDT Gareth Cancino MD [facility] CPT-89798 Level 2 Est. Patient 18:36:56 CDT Gareth Cancino MD [facility] CPT-70146 Level 4 Est. Patient 13:50:53 CDT Gareth Cancino MD [facility] CPT-44893 Level 3 Est. Patient 14:58:33 [employer] SALES REPRESENTATIVE Gareth Cancino MD [facility] CPT-50184 Level 4 Est. Patient 09:25:57 CDT Gareth Cancino MD [facility] CPT-18139 Level 3 Est. Patient 20:39:33 CDT Noman Edwards DO [facility] CPT-96294 Level 2 Est. Patient 13:17:39 CDT Gareth Cancino MD [facility] CPT-74582 Level 3 Est. Patient 13:37:20 CDT Gareth Cancino MD [facility] CPT-53722 Level 3 Est. Patient 18:09:08 CDT Gareth Cancino MD [facility] CPT-69063 Level 4 Est. Patient 09:59:07 CDT Gareth Cancino MD [facility] Procedures Code Procedure Name Date Entry Date Standard Description CPT-000 Give Appropriate Flu Vaccine 09:29:52 [employer] SALES REPRESENTATIVE CPT-000 Give Appropriate Flu Vaccine 09:22:20 [employer] REPRESENTATIVE CPT-30795 TSH - LAB USE ONLY 08:11:40 [employer] SALES REPRESENTATIVE CPT-30016 Free T4 - LAB USE ONLY 08:11:40 [employer] SALES REPRESENTATIVE CPT-46519 Venipuncture Draw Fee 08:11:40 [employer] SALES REPRESENTATIVE CPT-33686 UA w micro - LAB USE ONLY 14:26:22 [employer] SALES REPRESENTATIVE CPT-G0438 Initial Annual Wellness Exam 20:53:25 [employer] SALES REPRESENTATIVE CPT-G0009 Administration of Pneumococcal Vaccine 11:42:53 [employer] SALES REPRESENTATIVE CPT-17407 Prevnar 13 Intramuscular Suspension 11:42:53 [employer] SALES REPRESENTATIVE 01/07 CPT-14252 First Vx - Ix admin for Medicare patients 11:39:44 [employer] SALES REPRESENTATIVE CPT-66542 Fluzone High-Dose Intramuscular Suspension 11:39:44 [employer] SALES REPRESENTATIVE CPT-72464 Prevnar 13 Intramuscular Suspension 09:29:52 [employer] SALES REPRESENTATIVE 01/07 CPT-91045 CMP - LAB USE ONLY 16:31:15 CDT CPT-58291 CBC - LAB USE ONLY 16:31:14 CDT CPT-21483 Venipuncture Draw Fee 16:31:14 CDT CPT-03772 BMP - LAB USE ONLY 14:37:27 CDT CPT-66301 CBC - LAB USE ONLY 14:37:27 CDT CPT-12639 Venipuncture Draw Fee 14:37:27 CDT CPT-TCMM Transitional Care Mgmt-Moderate 14:43:38 CDT CPT-62213 Venipuncture Draw Fee 10:33:47 CDT CPT-69174 BMP - LAB USE ONLY 10:33:46 CDT CPT-Cryo Cryotherapy 15:12:03 CDT CPT-25802 LS spine AP and Lat - XRAY USE ONLY 10:31:51 CDT 07/27 CPT-92493 Punch biopsy 1 lsn 20:40:09 CDT CPT-G0008 Administration of Influenza Virus Vaccine 10:04:48 [employer] REPRESENTATIVE CPT-55374 Fluzone High-Dose Intramuscular Suspension 10:04:48 [employer]ES REPRESENTATIVE CPT-88093 Ribs unilat w PA chst min 3V 10:45:40 CDT CPT-LR Lesion Removal 13:14:55 CDT CPT-Cryo Cryotherapy 13:14:55 CDT CPT-05572 Venipuncture Draw Fee 10:25:49 CDT CPT-95815 Administration single or combination vaccine inc oral 13 :22:14 [employer] SALES REPRESENTATIVE CPT-09480 Influenza High Dose age 65+ 13:22:14 [employer] SALES REPRESENTATIVE
--- OUTSIDE RECORDS SUMMARY | 2016-12-06 08:37 | XMS REPORT | Clinical Summary ---
Author Author Admin, Leon Organization [employer] Address Unknown Phone Unavailable Allergies, Adverse Reactions, [...] 1 tablet by mouth qhs prn ALPRAZOLAM 55121148780 No Longer Active Gareth Cancino MD Active CLOBETASOL PROPIONATE 0.05 % CREA apply to hand rash bid CLOBETASOL PROPIONATE 74978726328 No Longer Active Gareth Cancino MD Active BACTROBAN 2 % CREAM Apply to affected area BID MUPIROCIN CALCIUM 35130158657 No Longer Active Gareth Cancino MD Active LISINOPRIL 20 MG TABS 1 tablet by mouth daily for high blood pressure 10/14 LISINOPRIL 40118217579 Active Gareth Cancino MD Active BACTRIM DS 800-160 MG TAB 1 tab by mouth twice daily TRIMETHOPRIM-SULFAMETHOXAZOLE 88518806652 No Longer Active Gareth Cancino MD Active METOPROLOL SUCCINATE ER 100 MG [id number] 1 pill by mouth daily, for blood pressure METOPROLOL SUCCINATE 23129875237 Active Gareth Cancino MD Active KEFLEX 500 MG CAP 1 po TID x 10 days CEPHALEXIN 78919629178 No Longer Active Blanca Castillo APRN Active WELLBUTRIN SR 150 MG ORAL [id number] take 1 tab po BID BUPROPION HCL 06267685373 Active Gareth Cancino MD Active METOPROLOL SUCCINATE 50 MG TB24 1 tablet by mouth daily METOPROLOL SUCCINATE 98776743472 No Longer Active Gareth Cancino MD Active OMEPRAZOLE 20 MG TBEC Take one by mouth daily OMEPRAZOLE 31216217821 No Longer Active Gareth Cancino MD Active OMEPRAZOLE 40 MG CPDR 1 tab po qday for acid reflux. OMEPRAZOLE 28692538864 Active Mary Shah APRN Active LEVAQUIN 500 MG TAB 1 tablet by mouth daily LEVOFLOXACIN 24477234087 No Longer Active Gareth Cancino MD Active ALEVE 220 MG TAB 2 tab po qd NAPROXEN SODIUM 37995627185 Active Gareth Cancino MD Active ASPIRIN 81 MG CHEW TAB 1 tablet by mouth daily ASPIRIN 89226187566 Active Gareth Cancino MD Active VENTOLIN HFA 108 (90 BASE) MCG/ACT AERS 1-2 puffs four times a day PRN shortness of breath ALBUTEROL SULFATE 33698088915 Active Mary Shah [employer] REPAIRER Active CENTRUM SILVER TABS 1 TAB PO DAILY MULTIPLE VITAMINS-MINERALS 76100217349 Active Gareth Cancino MD Active VITAMIN B12 100 MCG TABS 1 TAB PO DAILY CYANOCOBALAMIN 14551718817 Active Gareth Cancino MD Active CIPRO 500 MG TABS 1 TAB PO BID CIPROFLOXACIN HCL 57079318562 No Longer Active Gareth Cancino MD Active BACTRIM DS 800-160 MG TAB 1 tab by mouth twice daily TRIMETHOPRIM-SULFAMETHOXAZOLE 12699728510 No Longer Active Gareth Cancino MD Active PREDNISONE 20 MG TAB 1 tab po BID for 3 days, then 1 tab po qday for 3 days PREDNISONE 65138696487 No Longer Active Gareth Cancino MD Active FOLIC ACID 800 MCG TABS Take one by mouth daily FOLIC ACID 51775661960 No Longer Active Gareth Cancino MD Active VITAMIN B-6 250 MG TABS Take one by mouth daily PYRIDOXINE HCL 60772093872 No Longer Active Gareth Cancino MD Active B-12 1000 MCG CAPS Take one by mouth daily CYANOCOBALAMIN 23884226455 No Longer Active Gareth Cancino MD Active DOXYCYCLINE HYCLATE 100 MG CAP 1 cap by mouth twice daily DOXYCYCLINE HYCLATE 74034550471 No Longer Active Gareth Cancino MD Active PREDNISONE 20 MG TAB 1 po bid 3 days, then 1 po q day 3 days 2011 PREDNISONE 55446502759 No Longer Active Gareth Cancino MD Active CHANTIX STARTING MONTH RUBEN 0.5 MG X 11 & 1 MG X 42 TABS 0.5mg daily for 3 days , then 0.5mg BID for 4 days, then 1mg BID VARENICLINE TARTRATE 84222813977 No Longer Active Gareth Cancino MD Active SIMVASTATIN 40 MG TABS Take one by mouth daily SIMVASTATIN 92692333581 Active Gareth Cancino MD Active TRIAMTERENE-HCTZ 37.5-25 MG CAPS Take one by mouth daily TRIAMTERENE- HCTZ 67694616510 Active Gareth Cancino MD Active CHANTIX STARTING [...] 3 days 2011 PREDNISONE 20 MG TAB 553285 PREDNISONE Inactive DOXYCYCLINE HYCLATE 100 MG CAP 1 cap by mouth twice daily DOXYCYCLINE HYCLATE 100 MG CAP 8222285 DOXYCYCLINE HYCLATE Inactive B-12 1000 MCG CAPS Take one by mouth daily B-12 1000 MCG CAPS CYANOCOBALAMIN Inactive VITAMIN B-6 250 MG TABS Take one by mouth daily VITAMIN B-6 250 MG TABS PYRIDOXINE HCL Inactive FOLIC ACID 800 MCG TABS Take one by mouth daily FOLIC ACID 800 MCG TABS 947942 FOLIC ACID Inactive CIPRO 500 MG TABS 1 TAB PO BID CIPRO 500 MG TABS 528692 CIPROFLOXACIN HCL Inactive OMEPRAZOLE 20 MG TBEC Take one by mouth daily OMEPRAZOLE 20 MG TBEC 295686 OMEPRAZOLE Inactive METOPROLOL SUCCINATE 50 MG TB24 1 tablet by mouth daily METOPROLOL SUCCINATE 50 MG TB24 METOPROLOL SUCCINATE Inactive BACTROBAN 2 % CREAM Apply to affected area BID BACTROBAN 2 % CREAM 152970 MUPIROCIN CALCIUM Inactive CLOBETASOL PROPIONATE 0.05 % CREA apply to hand rash bid CLOBETASOL PROPIONATE 0.05 % CREA 071724 CLOBETASOL PROPIONATE Inactive ALPRAZOLAM 0.25 MG TAB 1/2 to 1 tablet by mouth qhs prn ALPRAZOLAM 0.25 MG TAB 083395 ALPRAZOLAM Inactive PREDNISONE 20 MG TAB 1 tab po BID for 3 days, then 1 tab po qday for 3 days PREDNISONE 20 MG TAB 538001 PREDNISONE Inactive BACTRIM DS 800-160 MG TAB 1 tab by mouth twice daily BACTRIM DS 800-160 MG TAB 603290 TRIMETHOPRIM-SULFAMETHOXAZOLE Inactive LEVAQUIN 500 MG TAB 1 tablet by mouth daily LEVAQUIN 500 MG TAB 920216 LEVOFLOXACIN Inactive KEFLEX 500 MG CAP 1 po TID x 10 days KEFLEX 500 MG CAP 992981 CEPHALEXIN Inactive BACTRIM DS 800-160 MG TAB 1 tab by mouth twice daily BACTRIM DS 800-160 MG TAB 590947 TRIMETHOPRIM-SULFAMETHOXAZOLE Inactive Vital Signs Date Name Value [...] ... - Chemistry cholesterol, serum 195 mg/dL 383-420 1936/12/02 triglyceride, serum, fasting 74 mg/dL 30-200 HDL cholesterol, serum 52 mg/dL 32-96 LDL cholesterol, serum 128 mg/dL 0-130 sodium, serum 134 mmol/L 193-883 7917/12/02 carbon dioxide, venous blood 30.3 mmol/L 21.0-32.0 [...] 0-19 Encounters Code Encounter Date Provider Facility CPT-05448 Level 3 Est. Patient 23:08:20 CDT Gareth Cancino MD [facility] CPT-33082 Level 4 Est. Patient 20:40:10 CDT Gareth Cancino MD [facility] CPT-18438 Level 4 Est. Patient 19:50:11 CDT Gareth Cancino MD [facility] CPT-96826 Level 3 Est. Patient 11:00:13 CDT Gareth Cancino MD [facility] CPT-96290 Level 4 Est. Patient 11:20:21 CDT Gareth Cancino MD [facility] CPT-94188 Level 4 Est. Patient 09:22:18 [employer]PECT[employer] Gareth Cancino MD [facility] CPT-58962 Level 3 Est. Patient 09:48:04 CDT Gareth Cancino MD [facility] CPT-55894 Level 3 Est. Patient 10:13:16 CDT Gareth Cancino MD [facility] CPT-11633 Level 2 Est. Patient 18:36:56 CDT Gareth Cancino MD [facility] CPT-19714 Level 4 Est. Patient 13:50:53 CDT Gareth Cancino MD [facility] CPT-19514 Level 3 Est. Patient 14:58:33 [employer] INSPECT[employer] Gareth Cancino MD [facility] CPT-56884 Level 4 Est. Patient 09:25:57 CDT Gareth Cancino MD [facility] CPT-13459 Level 3 Est. Patient 20:39:33 CDT Noman Edwards DO [facility] CPT-34071 Level 2 Est. Patient 13:17:39 CDT Gareth Cancino MD [facility] CPT-90371 Level 3 Est. Patient 13:37:20 CDT Gareth Cancino MD [facility] CPT-43662 Level 3 Est. Patient 18:09:08 CDT Gareth Cancino MD [facility] CPT-49663 Level 4 Est. Patient 09:59:07 CDT Gareth Cancino MD [facility] Procedures Code Procedure Name Date Entry Date Standard Description CPT-40327 LS spine AP and Lat - XRAY USE ONLY 10:31:51 CDT 07/27 CPT-38066 Punch biopsy 1 lsn 20:40:09 CDT CPT-G0008 Administration of Influenza Virus Vaccine 10:04:48 [employer] CPT-41310 Fluzone High-Dose Intramuscular Suspension 10:04:48 [employer] CPT-10874 Ribs unilat w PA chst min 3V 10:45:40 CDT CPT-LR Lesion Removal 13:14:55 CDT CPT-Cryo Cryotherapy 13:14:55 CDT CPT-93770 Venipuncture Draw Fee 10:25:49 CDT CPT-04340 Administration single or combination vaccine inc oral 13 :22:14 [employer] CPT-97071 Influenza High Dose age 65+ 13:22:14 [employer]
--- OUTSIDE RECORDS SUMMARY | 2016-12-06 08:38 | XMS REPORT | Clinical Summary ---
Author Author Admin, HILARIA Organization [employer] Address Unknown Phone Unavailable Allergies, Adverse Reactions, [...] Tobacco use disorder SEBORRHEIC KERATOSIS 702.19 Resolved Gaerth Cancino MD Other seborrheic keratosis COPD 496 [...] APRN Obstructive chronic bronchitis with (acute) exacerbation SKIN LESION ICD-709.9 Inactive Gareth Cancino MD [...] MD Folliculitis ICD-704.8 Inactive Gareth Cancino MD HYPERLIPIDEMIA, OTHER UNSPECIFIED ICD-272.4 Inactive Gareth Cancino MD Frequency of urination ICD-788.41 Inactive Gareth Cancino MD Actinic keratosis ICD-702.0 Inactive Gareth Cancino MD Hypokalemia ICD-276.8 Inactive Gareth Cancino MD Medication List Medication Instructions Start Date Stop Date Generic Name NDC Status Provider Patient Instruction PIROXICAM 20 MG ORAL CAPS 1 po daily as needed for arthritis/pain PIROXICAM 40993038473 Active Gareth Cancino MD Active ZITHROMAX Z-RUBEN 250 MG TABS 2 today, then 1 daily for 4 days 2016 AZITHROMYCIN 91290142598 No Longer Active Tangelashar Forte Active FENTANYL 25 MCG/HR TRANS PT72 1 patch every 72 hours FENTANYL 89989403655 Active Mary Shah APRN Active PREDNISONE 20 MG TAB take 3 tabs daily for 3 days, 2 tabs daily for 3 days, 1 tab daily for 3 days, 1/2 tab daily for 4 days PREDNISONE 61895049020 No Longer Active Mary Shah APRN Active LEVAQUIN 500 MG TAB 1 tablet by mouth daily for 7 days LEVOFLOXACIN 93308819956 Active Marylennox Shah APRN Active AZITHROMYCIN 250 MG TABS 2 po qd x 1 day, then 1 po qd x 4 days AZITHROMYCIN 29120284069 No Longer Active Danuta Rian Active AZITHROMYCIN 250 MG TABS 2 po qd x 1 day, then 1 po qd x 4 days AZITHROMYCIN 73959849246 No Longer Active Tangela Forte Active HYDROCODONE-ACETAMINOPHEN 5-325 MG TABS 1 tab by mouth every 6 hours as needed for bck pain HYDROCODONE-ACETAMINOPHEN 07930777124 No Longer Active Gareth Cancino MD Active ALPRAZOLAM 0.25 MG TAB 1 tablet by mouth q hs prn ALPRAZOLAM 63569369917 Active Gareth Cancino MD Active AZITHROMYCIN 250 MG ORAL TABS 1 tab daily AZITHROMYCIN 53660227594 No Longer Active Gareth Cancino MD Active ZITHROMAX 250 MG TAB 2 po today, then 1 po q days 2-5 AZITHROMYCIN 53911439088 No Longer Active Tangela Raida Active IPRATROPIUM-ALBUTEROL 0.5-2.5 (3) MG/3ML INH SOLN nebulize 1 vial every 6hrs prn shortness of breath IPRATROPIUM-ALBUTEROL 35975193801 Active Gareth Cancino MD Active FENTANYL 25 MCG/HR PT72 Apply to clean, dry skin and change every 72 hours FENTANYL 66157529797 No Longer Active Gareth Cancino MD Active WELLBUTRIN SR 150 MG ORAL [id number] take 1 tab po BID BUPROPION HCL 58473930844 No Longer Active Gareth Cancino MD Active ZOFRAN 4 MG ORAL TABS 1 by mouth every 6 hours prn nausea ONDANSETRON HCL 47015735410 Active Tangela Forte Active TRAMADOL HCL 50 MG TABS 1 po tid PRN TRAMADOL HCL 04570623277 Active Gareth Cancino MD Active ALPRAZOLAM 0.25 MG TAB 1/2 to 1 tablet by mouth qhs prn ALPRAZOLAM 01309965768 No Longer Active Gareth Cancino MD Active CLOBETASOL PROPIONATE 0.05 % CREA apply to hand rash bid CLOBETASOL PROPIONATE 91345182623 No Longer Active Gareth Cancino MD Active BACTROBAN 2 % CREAM Apply to affected area BID MUPIROCIN CALCIUM 76399121885 No Longer Active Gareth Cancino MD Active LISINOPRIL 20 MG TABS 1 tablet by mouth daily for high blood pressure 10/14 LISINOPRIL 58630846636 Active Gareth Cancino MD Active BACTRIM DS 800-160 MG TAB 1 tab by mouth twice daily TRIMETHOPRIM-SULFAMETHOXAZOLE 92863653326 No Longer Active Gareth Cancino MD Active METOPROLOL SUCCINATE ER 100 MG [id number] 1 pill by mouth daily, for blood pressure METOPROLOL SUCCINATE 80819771111 Active Gareth Cancino MD Active KEFLEX 500 MG CAP 1 po TID x 10 days CEPHALEXIN 57950170656 No Longer Active Blanca Castillo APRN Active METOPROLOL SUCCINATE 50 MG TB24 1 tablet by mouth daily METOPROLOL SUCCINATE 14568416551 No Longer Active Gareth Cancino MD Active OMEPRAZOLE 20 MG TBEC Take one by mouth daily OMEPRAZOLE 63075148629 No Longer Active Gareth Cancino MD Active OMEPRAZOLE 40 MG CPDR 1 tab po qday for acid reflux. OMEPRAZOLE 04603556264 Active Mary Shah APRN Active LEVAQUIN 500 MG TAB 1 tablet by mouth daily LEVOFLOXACIN 38493738292 No Longer Active Gareth Cancino MD Active ALEVE 220 MG TAB 2 tab po qd NAPROXEN SODIUM 23654710564 Active Gareth Cancino MD Active ASPIRIN 81 MG CHEW TAB 1 tablet by mouth daily ASPIRIN 91757589389 Active Gareth Cancino MD Active VENTOLIN HFA 108 (90 BASE) MCG/ACT AERS 1-2 puffs four times a day PRN shortness of breath ALBUTEROL SULFATE 08208002587 Active Mary Shah APRN Active CENTRUM SILVER TABS 1 TAB PO DAILY MULTIPLE VITAMINS-MINERALS 05928095781 Active Gareth Cancino MD Active VITAMIN B12 100 MCG TABS 1 TAB PO DAILY CYANOCOBALAMIN 46422032194 Active Gareth Cancino MD Active CIPRO 500 MG TABS 1 TAB PO BID CIPROFLOXACIN HCL 04945453206 No Longer Active Gareth Cancino MD Active BACTRIM DS 800-160 MG TAB 1 tab by mouth twice daily TRIMETHOPRIM-SULFAMETHOXAZOLE 67212271761 No Longer Active Gareth Cancino MD Active PREDNISONE 20 MG TAB 1 tab po BID for 3 days, then 1 tab po qday for 3 days PREDNISONE 19717229411 No Longer Active Gareth Cancino MD Active FOLIC ACID 800 MCG TABS Take one by mouth daily FOLIC ACID 88994274787 No Longer Active Gareth Cancino MD Active VITAMIN B-6 250 MG TABS Take one by mouth daily PYRIDOXINE HCL 51496227509 No Longer Active Gareth Cancino MD Active B-12 1000 MCG CAPS Take one by mouth daily CYANOCOBALAMIN 80910318432 No Longer Active Gareth Cancino MD Active DOXYCYCLINE HYCLATE 100 MG CAP 1 cap by mouth twice daily DOXYCYCLINE HYCLATE 83265861433 No Longer Active Gareth Cancino MD Active PREDNISONE 20 MG TAB 1 po bid 3 days, then 1 po q day 3 days 2011 PREDNISONE 84627929986 No Longer Active Gareth Cancino MD Active CHANTIX STARTING MONTH RUBEN 0.5 MG X 11 & 1 MG X 42 TABS 0.5mg daily for 3 days , then 0.5mg BID for 4 days, then 1mg BID VARENICLINE TARTRATE 57132863815 No Longer Active Gareth Cancino MD Active SIMVASTATIN 40 MG TABS Take one by mouth daily SIMVASTATIN 79809631263 Active Gareth Cancino MD Active TRIAMTERENE-HCTZ 37.5-25 MG CAPS Take one by mouth daily TRIAMTERENE- HCTZ 44160297744 Active Mary Shah APRN Active CHANTIX STARTING [...] 3 days 2011 PREDNISONE 20 MG TAB 276622 PREDNISONE Inactive DOXYCYCLINE HYCLATE 100 MG CAP 1 cap by mouth twice daily DOXYCYCLINE HYCLATE 100 MG CAP 7804088 DOXYCYCLINE HYCLATE Inactive B-12 1000 MCG CAPS Take one by mouth daily B-12 1000 MCG CAPS CYANOCOBALAMIN Inactive VITAMIN B-6 250 MG TABS Take one by mouth daily VITAMIN B-6 250 MG TABS PYRIDOXINE HCL Inactive FOLIC ACID 800 MCG TABS Take one by mouth daily FOLIC ACID 800 MCG TABS 909989 FOLIC ACID Inactive CIPRO 500 MG TABS 1 TAB PO BID CIPRO 500 MG TABS 775286 CIPROFLOXACIN HCL Inactive OMEPRAZOLE 20 MG TBEC Take one by mouth daily OMEPRAZOLE 20 MG [facility] 211085 OMEPRAZOLE Inactive METOPROLOL SUCCINATE 50 MG TB24 1 tablet by mouth daily METOPROLOL SUCCINATE 50 MG TB24 METOPROLOL SUCCINATE Inactive BACTROBAN 2 % CREAM Apply to affected area BID BACTROBAN 2 % CREAM 219707 MUPIROCIN CALCIUM Inactive CLOBETASOL PROPIONATE 0.05 % CREA apply to hand rash bid CLOBETASOL PROPIONATE 0.05 % CREA 574292 CLOBETASOL PROPIONATE Inactive ALPRAZOLAM 0.25 MG TAB 1/2 to 1 tablet by mouth qhs prn ALPRAZOLAM 0.25 MG TAB 437477 ALPRAZOLAM Inactive WELLBUTRIN SR 150 MG ORAL [id number] take 1 tab po BID WELLBUTRIN SR 150 MG ORAL [id number] BUPROPION HCL Inactive AZITHROMYCIN 250 MG ORAL TABS 1 tab daily AZITHROMYCIN 250 MG ORAL TABS 0903740 AZITHROMYCIN Inactive HYDROCODONE-ACETAMINOPHEN 5-325 MG TABS 1 tab by mouth every 6 hours as needed for bck pain HYDROCODONE-ACETAMINOPHEN 5-325 MG TABS 305045 HYDROCODONE-ACETAMINOPHEN Inactive PREDNISONE 20 MG TAB 1 tab po BID for 3 days, then 1 tab po qday for 3 days PREDNISONE 20 MG TAB 194543 PREDNISONE Inactive BACTRIM DS 800-160 MG TAB 1 tab by mouth twice daily BACTRIM DS 800-160 MG TAB 433971 TRIMETHOPRIM-SULFAMETHOXAZOLE Inactive LEVAQUIN 500 MG TAB 1 tablet by mouth daily LEVAQUIN 500 MG TAB 462317 LEVOFLOXACIN Inactive KEFLEX 500 MG CAP 1 po TID x 10 days KEFLEX 500 MG CAP 388630 CEPHALEXIN Inactive BACTRIM DS 800-160 MG TAB 1 tab by mouth twice daily BACTRIM DS 800-160 MG TAB 881334 TRIMETHOPRIM-SULFAMETHOXAZOLE Inactive FENTANYL 25 MCG/HR PT72 Apply to clean, dry skin and change every 72 hours FENTANYL 25 MCG/HR PT72 590494 FENTANYL Inactive ZITHROMAX 250 MG TAB 2 po today, then 1 po q days 2-5 ZITHROMAX 250 MG TAB 6857922 AZITHROMYCIN Inactive AZITHROMYCIN 250 MG TABS 2 po qd x 1 day, then 1 po qd x 4 days AZITHROMYCIN 250 MG TABS 3287661 AZITHROMYCIN Inactive AZITHROMYCIN 250 MG TABS 2 po qd x 1 day, then 1 po qd x 4 days AZITHROMYCIN 250 MG TABS 5888915 AZITHROMYCIN Inactive PREDNISONE 20 MG TAB take 3 tabs daily for 3 days, 2 tabs daily for 3 days, 1 tab daily for 3 days, 1/2 tab daily for 4 days PREDNISONE 20 MG TAB 330035 PREDNISONE Inactive ZITHROMAX Z-RUBEN 250 MG TABS 2 today, then 1 daily for 4 days 2016 ZITHROMAX Z-RUBEN 250 MG TABS 2033063 AZITHROMYCIN Inactive Vital Signs Date Name Value [...] Panel - Chemistry sodium, serum 133 mmol/L 780-112 4188/08/24 potassium, serum 4.4 mmol/L 3.5-5.2 chloride, serum 95 mmol/L 98-107 carbon dioxide, venous blood 33.0 mmol/L 21.0-32.0 blood glucose 107 mg/dL 65-110 calcium, serum 8.8 mg/dL 8.5-10.1 urea nitrogen, blood 12 mg/dL 7-18 creatinine, serum 0.69 mg/dL 0.55-1.30 Lab Report: CBC, Basic Metabolic Panel - Chemistry sodium, serum 132 mmol/L 646-497 3469/10/12 potassium, serum 4.7 mmol/L 3.5-5.2 chloride, serum [...] CBC - Chemistry sodium, serum 136 mmol/L 683-912 3414/11/01 carbon dioxide, venous blood 32.1 mmol/L 21.0-32.0 [...] PANEL - Chemistry cholesterol, serum 169 mg/dL 497-063 8903/05/09 HDL cholesterol, serum 54 mg/dL > OR=46 [...] mg/dL Encounters Code Encounter Date Provider Facility CPT-41000 Level 4 Est. Patient 07:23:02 CDT Gareth Cancino MD [facility] CPT-00295 Level 3 Est. Patient 09:05:25 DRAWER IN Mary Shah APRN [facility] CPT-98261 Level 3 Est. Patient 20:53:25 DRAWER IN Gareth Cancino MD [facility] CPT-57092 Level 3 Est. Patient 10:34:55 CDT Gareth Cancino MD [facility] CPT-39635 Level 4 Est. Patient 09:00:18 CDT Gareth Cancino MD [facility] CPT-88344 Level 3 Est. Patient 15:12:03 CDT Gareth Cancino MD [facility] CPT-99984 Level 3 Est. Patient 23:08:20 CDT Gareth Cancino MD [facility] CPT-04911 Level 4 Est. Patient 20:40:10 CDT Gareth Cancino MD [facility] CPT-14852 Level 4 Est. Patient 19:50:11 CDT Gareth Cancino MD [facility] CPT-62841 Level 3 Est. Patient 11:00:13 CDT Gareth Cancino MD [facility] CPT-29793 Level 4 Est. Patient 11:20:21 CDT Gareth Cancino MD [facility] CPT-40841 Level 4 Est. Patient 09:22:18 DRAWER IN Gareth Cancino MD [facility] CPT-23065 Level 3 Est. Patient 09:48:04 CDT Gareth Cancino MD [facility] CPT-49329 Level 3 Est. Patient 10:13:16 CDT Gareth Cancino MD [facility] CPT-03238 Level 2 Est. Patient 18:36:56 CDT Gareth Cancino MD [facility] CPT-87753 Level 4 Est. Patient 13:50:53 CDT Gareth Cancino MD [facility] CPT-63686 Level 3 Est. Patient 14:58:33 DRAWER IN Gareth Cancino MD [facility] CPT-33205 Level 4 Est. Patient 09:25:57 CDT Gareth Cancino MD [facility] CPT-27026 Level 3 Est. Patient 20:39:33 CDT Noman Edwards DO [facility] CPT-36119 Level 2 Est. Patient 13:17:39 CDT Gareth Cancino MD [facility] CPT-15497 Level 3 Est. Patient 13:37:20 CDT Gareth Cancino MD [facility] CPT-99763 Level 3 Est. Patient 18:09:08 CDT Gareth Cancino MD [facility] CPT-08196 Level 4 Est. Patient 09:59:07 CDT Gareth Cancino MD [facility] Procedures Code Procedure Name Date Entry Date Standard Description CPT-000 Give Appropriate Flu Vaccine 09:29:52 DRAWER IN CPT-000 Give Appropriate Flu Vaccine 09:22:20 DRAWER IN CPT-79807 TSH - LAB USE ONLY 08:11:40 DRAWER IN CPT-84698 Free T4 - LAB USE ONLY 08:11:40 DRAWER IN CPT-15092 Venipuncture Draw Fee 08:11:40 DRAWER IN CPT-73192 UA w micro - LAB USE ONLY 14:26:22 DRAWER IN CPT-G0438 Initial Annual Wellness Exam 20:53:25 DRAWER IN CPT-G0009 Administration of Pneumococcal Vaccine 11:42:53 DRAWER IN CPT-24199 Prevnar 13 Intramuscular Suspension 11:42:53 DRAWER IN 01/07 CPT-45760 First Vx - Ix admin for Medicare patients 11:39:44 DRAWER IN CPT-31070 Fluzone High-Dose Intramuscular Suspension 11:39:44 DRAWER IN CPT-76875 Prevnar 13 Intramuscular Suspension 09:29:52 DRAWER IN 01/07 CPT-75659 CMP - LAB USE ONLY 16:31:15 CDT CPT-92022 CBC - LAB USE ONLY 16:31:14 CDT CPT-23118 Venipuncture Draw Fee 16:31:14 CDT CPT-55191 BMP - LAB USE ONLY 14:37:27 CDT CPT-64961 CBC - LAB USE ONLY 14:37:27 CDT CPT-31226 Venipuncture Draw Fee 14:37:27 CDT CPT-TCMM Transitional Care Mgmt-Moderate 14:43:38 CDT CPT-32704 Venipuncture Draw Fee 10:33:47 CDT CPT-91940 BMP - LAB USE ONLY 10:33:46 CDT CPT-Cryo Cryotherapy 15:12:03 CDT CPT-48697 LS spine AP and Lat - XRAY USE ONLY 10:31:51 CDT 07/27 CPT-61729 Punch biopsy 1 lsn 20:40:09 CDT CPT-G0008 Administration of Influenza Virus Vaccine 10:04:48 DRAWER IN CPT-12016 Fluzone High-Dose Intramuscular Suspension 10:04:48 DRAWER IN CPT-31917 Ribs unilat w PA chst min 3V 10:45:40 CDT CPT-LR Lesion Removal 13:14:55 CDT CPT-Cryo Cryotherapy 13:14:55 CDT CPT-25264 Venipuncture Draw Fee 10:25:49 CDT CPT-96370 Administration single or combination vaccine inc oral 13 :22:14 DRAWER IN CPT-59211 Influenza High Dose age 65+ 13:22:14 DRAWER IN
--- OUTSIDE RECORDS SUMMARY | 2016-12-06 08:39 | XMS REPORT | Clinical Summary ---
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 Unspecified disorder of skin and subcutaneous tissue Folliculitis 704.8 Active Gareth Cancino MD Other specified diseases of hair and hair follicles Low back pain, chronic 724.2 Active Gareth Cancino MD Lumbago Frequency of urination 788.41 Active Negin Garcia [employer] Urinary frequency Actinic keratosis 702.0 Active Gareth Cancino MD Actinic keratosis Bronchitis-Acute ICD-466.0 Inactive Gareth Cancino MD Medication List Medication Instructions Start Date Stop Date Generic Name NDC Status Provider Patient Instruction ALPRAZOLAM 0.25 MG TAB 1/2 to 1 tablet by mouth qhs prn ALPRAZOLAM 37100924327 No Longer Active Gareth Cancino MD Active CLOBETASOL PROPIONATE 0.05 % CREA apply to hand rash bid CLOBETASOL PROPIONATE 94204772746 No Longer Active Gareth Cancino MD Active BACTROBAN 2 % CREAM Apply to affected area BID MUPIROCIN CALCIUM 25038536953 No Longer Active Gareth Cancino MD Active LISINOPRIL 20 MG TABS 1 tablet by mouth daily for high blood pressure 10/14 LISINOPRIL 71637660244 Active Gareth Cancino MD Active BACTRIM DS 800-160 MG TAB 1 tab by mouth twice daily TRIMETHOPRIM-SULFAMETHOXAZOLE 13702725475 No Longer Active Gareth Cancino MD Active METOPROLOL SUCCINATE ER 100 MG [id number] 1 pill by mouth daily, for blood pressure METOPROLOL SUCCINATE 05532805752 Active Gareth Cancino MD Active KEFLEX 500 MG CAP 1 po TID x 10 days CEPHALEXIN 07683535471 No Longer Active Blanca Castillo APRN Active WELLBUTRIN SR 150 MG ORAL [id number] take 1 tab po BID BUPROPION HCL 52639746449 Active Gareth Cancino MD Active METOPROLOL SUCCINATE 50 MG TB24 1 tablet by mouth daily METOPROLOL SUCCINATE 46465062426 No Longer Active Gareth Cancino MD Active OMEPRAZOLE 20 MG TBEC Take one by mouth daily OMEPRAZOLE 05237795752 No Longer Active Gareth Cancino MD Active OMEPRAZOLE 40 MG CPDR 1 tab po qday for acid reflux. OMEPRAZOLE 60583993507 Active Mary Shah APRN Active LEVAQUIN 500 MG TAB 1 tablet by mouth daily LEVOFLOXACIN 92362818161 No Longer Active Gareth Cancino MD Active ALEVE 220 MG TAB 2 tab po qd NAPROXEN SODIUM 87215985633 Active Gareth Cancino MD Active ASPIRIN 81 MG CHEW TAB 1 tablet by mouth daily ASPIRIN 41776903511 Active Gareth Cancino MD Active VENTOLIN HFA 108 (90 BASE) MCG/ACT AERS 1-2 puffs four times a day PRN shortness of breath ALBUTEROL SULFATE 12440209055 Active Mary Shah APRN Active CENTRUM SILVER TABS 1 TAB PO DAILY MULTIPLE VITAMINS-MINERALS 62577250813 Active Gareth Cancino MD Active VITAMIN B12 100 MCG TABS 1 TAB PO DAILY CYANOCOBALAMIN 00557124968 Active Gareth Cancino MD Active CIPRO 500 MG TABS 1 TAB PO BID CIPROFLOXACIN HCL 68896540584 No Longer Active Gareth Cancino MD Active BACTRIM DS 800-160 MG TAB 1 tab by mouth twice daily TRIMETHOPRIM-SULFAMETHOXAZOLE 63288461643 No Longer Active Gareth Cancino MD Active PREDNISONE 20 MG TAB 1 tab po BID for 3 days, then 1 tab po qday for 3 days PREDNISONE 79664472635 No Longer Active Gareth Cancino MD Active FOLIC ACID 800 MCG TABS Take one by mouth daily FOLIC ACID 86121946789 No Longer Active Gareth Cancino MD Active VITAMIN B-6 250 MG TABS Take one by mouth daily PYRIDOXINE HCL 65266827525 No Longer Active Gareth Cancino MD Active B-12 1000 MCG CAPS Take one by mouth daily CYANOCOBALAMIN 03294065032 No Longer Active Gareth Cancino MD Active DOXYCYCLINE HYCLATE 100 MG CAP 1 cap by mouth twice daily DOXYCYCLINE HYCLATE 87433003269 No Longer Active Gareth Cancino MD Active PREDNISONE 20 MG TAB 1 po bid 3 days, then 1 po q day 3 days 2011 PREDNISONE 53542756436 No Longer Active Gareth Cancino MD Active CHANTIX STARTING MONTH RUBEN 0.5 MG X 11 & 1 MG X 42 TABS 0.5mg daily for 3 days , then 0.5mg BID for 4 days, then 1mg BID VARENICLINE TARTRATE 10934708507 No Longer Active Gareth Cancino MD Active SIMVASTATIN 40 MG TABS Take one by mouth daily SIMVASTATIN 41555318716 Active Gareth Cancino MD Active TRIAMTERENE-HCTZ 37.5-25 MG CAPS Take one by mouth daily TRIAMTERENE- HCTZ 55282127682 Active Gareth Cancino MD Active CHANTIX STARTING [...] 3 days 2011 PREDNISONE 20 MG TAB 943660 PREDNISONE Inactive DOXYCYCLINE HYCLATE 100 MG CAP 1 cap by mouth twice daily DOXYCYCLINE HYCLATE 100 MG CAP 4435354 DOXYCYCLINE HYCLATE Inactive B-12 1000 MCG CAPS Take one by mouth daily B-12 1000 MCG CAPS CYANOCOBALAMIN Inactive VITAMIN B-6 250 MG TABS Take one by mouth daily VITAMIN B-6 250 MG TABS PYRIDOXINE HCL Inactive FOLIC ACID 800 MCG TABS Take one by mouth daily FOLIC ACID 800 MCG TABS 635240 FOLIC ACID Inactive CIPRO 500 MG TABS 1 TAB PO BID CIPRO 500 MG TABS 122788 CIPROFLOXACIN HCL Inactive OMEPRAZOLE 20 MG TBEC Take one by mouth daily OMEPRAZOLE 20 MG TBEC 211560 OMEPRAZOLE Inactive METOPROLOL SUCCINATE 50 MG TB24 1 tablet by mouth daily 2015/06/ 30 METOPROLOL SUCCINATE 50 MG TB24 METOPROLOL SUCCINATE Inactive BACTROBAN 2 % CREAM Apply to affected area BID BACTROBAN 2 % CREAM 242244 MUPIROCIN CALCIUM Inactive CLOBETASOL PROPIONATE 0.05 % CREA apply to hand rash bid CLOBETASOL PROPIONATE 0.05 % CREA 090731 CLOBETASOL PROPIONATE Inactive ALPRAZOLAM 0.25 MG TAB 1/2 to 1 tablet by mouth qhs prn ALPRAZOLAM 0.25 MG TAB 949051 ALPRAZOLAM Inactive PREDNISONE 20 MG TAB 1 tab po BID for 3 days, then 1 tab po qday for 3 days PREDNISONE 20 MG TAB 666862 PREDNISONE Inactive BACTRIM DS 800-160 MG TAB 1 tab by mouth twice daily BACTRIM DS 800-160 MG TAB 289968 TRIMETHOPRIM-SULFAMETHOXAZOLE Inactive LEVAQUIN 500 MG TAB 1 tablet by mouth daily LEVAQUIN 500 MG TAB 971257 LEVOFLOXACIN Inactive KEFLEX 500 MG CAP 1 po TID x 10 days KEFLEX 500 MG CAP 210526 CEPHALEXIN Inactive BACTRIM DS 800-160 MG TAB 1 tab by mouth twice daily BACTRIM DS 800-160 MG TAB 077271 TRIMETHOPRIM-SULFAMETHOXAZOLE Inactive Vital Signs Date Name Value [...] Panel - Chemistry sodium, serum 133 mmol/L 596-527 8148/08/24 potassium, serum 4.4 mmol/L 3.5-5.2 chloride, serum 95 mmol/L 98-107 carbon dioxide, venous blood 33.0 mmol/L 21.0-32.0 blood glucose 107 mg/dL 65-110 calcium, serum 8.8 mg/dL 8.5-10.1 urea nitrogen, blood 12 mg/dL 7-18 creatinine, serum 0.69 mg/dL 0.55-1.30 Lab Report: Lipid Panel, Comp. Metabolic Panel, CBC W/DIFF, MICROALB/CRE ... - Chemistry albumin/creatinine ratio, urine < 30 mg/g mg/g{creat} 0-29 cholesterol, serum 195 mg/dL 873-423 3393/12/02 triglyceride, serum, fasting 74 mg/dL 30-200 HDL cholesterol, serum 52 mg/dL 32-96 LDL cholesterol, serum 128 mg/dL 0-130 sodium, serum 134 mmol/L 500-477 8657/12/02 carbon dioxide, venous blood 30.3 mmol/L 21.0-32.0 [...] 5.0-8.5 Encounters Code Encounter Date Provider Facility [facility]-[id number] Level 3 Est. Patient 15:12:03 CDT Gareth Cancino MD [facility]-78719 Level 3 Est. Patient 23:08:20 CDT Gareth Cancino MD [facility]-63145 Level 4 Est. Patient 20:40:10 CDT Gareth Cancino MD [facility]-14464 Level 4 Est. Patient 19:50:11 CDT Gareth Cancino MD [facility]-94832 Level 3 Est. Patient 11:00:13 CDT Gareth Cancino MD [facility]-60753 Level 4 Est. Patient 11:20:21 CDT Gareth Cancino MD [facility]-44865 Level 4 Est. Patient 09:22:18 PATIENT ACCESS COORDINATOR Gareth Cancino MD [facility]-09491 Level 3 Est. Patient 09:48:04 CDT Gareth Cancino MD [facility]-48827 Level 3 Est. Patient 10:13:16 CDT Gareth Cancino MD [facility]-88619 Level 2 Est. Patient 18:36:56 CDT Gareth Cancino MD [facility]-36443 Level 4 Est. Patient 13:50:53 CDT Gareth Cancino MD [facility]-91853 Level 3 Est. Patient 14:58:33 PATIENT ACCESS COORDINATOR Gareth Cancino MD [facility] CPT-17202 Level 4 Est. Patient 09:25:57 CDT Gareth Cancino MD [facility] CPT-15683 Level 3 Est. Patient 20:39:33 CDT Noman Bravo Jerry GALARZA [facility] CPT-98519 Level 2 Est. Patient 13:17:39 CDT Gareth Cancino MD [facility] CPT-77320 Level 3 Est. Patient 13:37:20 CDT Gareth Cancino MD [facility] CPT-65999 Level 3 Est. Patient 18:09:08 CDT Gareth Cancino MD [facility] CPT-08436 Level 4 Est. Patient 09:59:07 CDT Gareth Cancino MD [facility] Procedures Code Procedure Name Date Entry Date Standard Description CPT-62649 Venipuncture Draw Fee 10:33:47 CDT CPT-08959 BMP - LAB USE ONLY 10:33:46 CDT CPT-Cryo Cryotherapy 15:12:03 CDT CPT-07900 LS spine AP and Lat - XRAY USE ONLY 10:31:51 CDT 07/27 CPT-63088 Punch biopsy 1 lsn 20:40:09 CDT CPT-G0008 Administration of Influenza Virus Vaccine 10:04:48 PATIENT ACCESS COORDINATOR CPT-31074 Fluzone High-Dose Intramuscular Suspension 10:04:48 PATIENT ACCESS COORDINATOR CPT-27522 Ribs unilat w PA chst min 3V 10:45:40 CDT CPT-LR Lesion Removal 13:14:55 CDT CPT-Cryo Cryotherapy 13:14:55 CDT CPT-95628 Venipuncture Draw Fee 10:25:49 CDT CPT-25618 Administration single or combination vaccine inc oral 13 :22:14 PATIENT ACCESS COORDINATOR CPT-74859 Influenza High Dose age 65+ 13:22:14 PATIENT ACCESS COORDINATOR
--- OUTSIDE RECORDS SUMMARY | 2016-12-06 08:40 | XMS REPORT | Clinical Summary ---
Author Author Admin, Leon Organization [employer] Address Unknown Phone Unavailable Allergies, Adverse Reactions, [...] cause Skin lesion 709.9 Active Blanca Castillo SPA HOST Unspecified disorder of skin and subcutaneous tissue Folliculitis 704.8 Active Gareth Cancino MD Other specified diseases of hair and hair follicles Low back pain, chronic 724.2 Active Gareth Cancino MD Lumbago Frequency of urination 788.41 Active Negin Garcia SPRAGGER Urinary frequency Actinic keratosis 702.0 Active Gareth Cancino MD Actinic keratosis Bronchitis-Acute ICD-466.0 Inactive Gareth Cancino MD Medication List Medication Instructions Start Date Stop Date Generic Name NDC Status Provider Patient Instruction ALPRAZOLAM 0.25 MG TAB 1/2 to 1 tablet by mouth qhs prn ALPRAZOLAM 83098096621 No Longer Active Gareth Cancino MD Active CLOBETASOL PROPIONATE 0.05 % CREA apply to hand rash bid CLOBETASOL PROPIONATE 27788992410 No Longer Active Gareth Cancino MD Active BACTROBAN 2 % CREAM Apply to affected area BID MUPIROCIN CALCIUM 57276721168 No Longer Active Gareth Cancino MD Active LISINOPRIL 20 MG TABS 1 tablet by mouth daily for high blood pressure 10/14 LISINOPRIL 71335744968 Active Gareth Cancino MD Active BACTRIM DS 800-160 MG TAB 1 tab by mouth twice daily TRIMETHOPRIM-SULFAMETHOXAZOLE 73006942048 No Longer Active Gareth Cancino MD Active METOPROLOL SUCCINATE ER 100 MG [id number] 1 pill by mouth daily, for blood pressure METOPROLOL SUCCINATE 43186680414 Active Gareth Cancino MD Active KEFLEX 500 MG CAP 1 po TID x 10 days CEPHALEXIN 99018727751 No Longer Active Blanca Castillo APRN Active WELLBUTRIN SR 150 MG ORAL [id number] take 1 tab po BID BUPROPION HCL 43506401295 Active Gareth Cancino MD Active METOPROLOL SUCCINATE 50 MG TB24 1 tablet by mouth daily METOPROLOL SUCCINATE 78827522682 No Longer Active Gareth Cancino MD Active OMEPRAZOLE 20 MG TBEC Take one by mouth daily OMEPRAZOLE 26844186823 No Longer Active Gareth Cancino MD Active OMEPRAZOLE 40 MG CPDR 1 tab po qday for acid reflux. OMEPRAZOLE 26273271114 Active Mary Shah APRN Active LEVAQUIN 500 MG TAB 1 tablet by mouth daily LEVOFLOXACIN 41345631181 No Longer Active Gareth Cancino MD Active ALEVE 220 MG TAB 2 tab po qd NAPROXEN SODIUM 89926376245 Active Gareth Cancino MD Active ASPIRIN 81 MG CHEW TAB 1 tablet by mouth daily ASPIRIN 12798899219 Active Gareth Cancino MD Active VENTOLIN HFA 108 (90 BASE) MCG/ACT AERS 1-2 puffs four times a day PRN shortness of breath ALBUTEROL SULFATE 75934629664 Active Mary Shah APRN Active CENTRUM SILVER TABS 1 TAB PO DAILY MULTIPLE VITAMINS-MINERALS 19284078934 Active Gareth Cancino MD Active VITAMIN B12 100 MCG TABS 1 TAB PO DAILY CYANOCOBALAMIN 90829165700 Active Gareth Cancino MD Active CIPRO 500 MG TABS 1 TAB PO BID CIPROFLOXACIN HCL 81751671231 No Longer Active Gareth Cancino MD Active BACTRIM DS 800-160 MG TAB 1 tab by mouth twice daily TRIMETHOPRIM-SULFAMETHOXAZOLE 05497338231 No Longer Active Gareth Cancino MD Active PREDNISONE 20 MG TAB 1 tab po BID for 3 days, then 1 tab po qday for 3 days PREDNISONE 13819532723 No Longer Active Gareth Cancino MD Active FOLIC ACID 800 MCG TABS Take one by mouth daily FOLIC ACID 51731545871 No Longer Active Gareth Cancino MD Active VITAMIN B-6 250 MG TABS Take one by mouth daily PYRIDOXINE HCL 71268312235 No Longer Active Gareth Cancino MD Active B-12 1000 MCG CAPS Take one by mouth daily CYANOCOBALAMIN 23206085917 No Longer Active Gareth Cancino MD Active DOXYCYCLINE HYCLATE 100 MG CAP 1 cap by mouth twice daily DOXYCYCLINE HYCLATE 86137373874 No Longer Active Gareth Cancino MD Active PREDNISONE 20 MG TAB 1 po bid 3 days, then 1 po q day 3 days 2011 PREDNISONE 26600757241 No Longer Active Gareth Cancino MD Active CHANTIX STARTING MONTH RUBEN 0.5 MG X 11 & 1 MG X 42 TABS 0.5mg daily for 3 days , then 0.5mg BID for 4 days, then 1mg BID VARENICLINE TARTRATE 20040178911 No Longer Active Gareth Cancino MD Active SIMVASTATIN 40 MG TABS Take one by mouth daily SIMVASTATIN 03273219082 Active Gareth Cancino MD Active TRIAMTERENE-HCTZ 37.5-25 MG CAPS Take one by mouth daily TRIAMTERENE- HCTZ 23993378410 Active Gareth Cancino MD Active CHANTIX STARTING [...] 3 days 2011 PREDNISONE 20 MG TAB 193491 PREDNISONE Inactive DOXYCYCLINE HYCLATE 100 MG CAP 1 cap by mouth twice daily DOXYCYCLINE HYCLATE 100 MG CAP 5680457 DOXYCYCLINE HYCLATE Inactive B-12 1000 MCG CAPS Take one by mouth daily B-12 1000 MCG CAPS CYANOCOBALAMIN Inactive VITAMIN B-6 250 MG TABS Take one by mouth daily VITAMIN B-6 250 MG TABS PYRIDOXINE HCL Inactive FOLIC ACID 800 MCG TABS Take one by mouth daily FOLIC ACID 800 MCG TABS 303091 FOLIC ACID Inactive CIPRO 500 MG TABS 1 TAB PO BID CIPRO 500 MG TABS 894393 CIPROFLOXACIN HCL Inactive OMEPRAZOLE 20 MG TBEC Take one by mouth daily OMEPRAZOLE 20 MG TBEC 097077 OMEPRAZOLE Inactive METOPROLOL SUCCINATE 50 MG TB24 1 tablet by mouth daily 2015/06/ 30 METOPROLOL SUCCINATE 50 MG TB24 METOPROLOL SUCCINATE Inactive BACTROBAN 2 % CREAM Apply to affected area BID BACTROBAN 2 % CREAM 733289 MUPIROCIN CALCIUM Inactive CLOBETASOL PROPIONATE 0.05 % CREA apply to hand rash bid CLOBETASOL PROPIONATE 0.05 % CREA 878409 CLOBETASOL PROPIONATE Inactive ALPRAZOLAM 0.25 MG TAB 1/2 to 1 tablet by mouth qhs prn ALPRAZOLAM 0.25 MG TAB 497797 ALPRAZOLAM Inactive PREDNISONE 20 MG TAB 1 tab po BID for 3 days, then 1 tab po qday for 3 days PREDNISONE 20 MG TAB 117150 PREDNISONE Inactive BACTRIM DS 800-160 MG TAB 1 tab by mouth twice daily BACTRIM DS 800-160 MG TAB 474752 TRIMETHOPRIM-SULFAMETHOXAZOLE Inactive LEVAQUIN 500 MG TAB 1 tablet by mouth daily LEVAQUIN 500 MG TAB 683127 LEVOFLOXACIN Inactive KEFLEX 500 MG CAP 1 po TID x 10 days KEFLEX 500 MG CAP 268264 CEPHALEXIN Inactive BACTRIM DS 800-160 MG TAB 1 tab by mouth twice daily BACTRIM DS 800-160 MG TAB 482013 TRIMETHOPRIM-SULFAMETHOXAZOLE Inactive Vital Signs Date Name Value [...] Panel - Chemistry sodium, serum 133 mmol/L 577-209 2081/08/24 potassium, serum 4.4 mmol/L 3.5-5.2 chloride, serum 95 mmol/L 98-107 carbon dioxide, venous blood 33.0 mmol/L 21.0-32.0 blood glucose 107 mg/dL 65-110 calcium, serum 8.8 mg/dL 8.5-10.1 urea nitrogen, blood 12 mg/dL 7-18 creatinine, serum 0.69 mg/dL 0.55-1.30 Lab Report: Lipid Panel, Comp. Metabolic Panel, CBC W/DIFF, MICROALB/CRE ... - Chemistry albumin/creatinine ratio, urine < 30 mg/g mg/g{creat} 0-29 cholesterol, serum 195 mg/dL 459-828 1342/12/02 triglyceride, serum, fasting 74 mg/dL 30-200 HDL cholesterol, serum 52 mg/dL 32-96 LDL cholesterol, serum 128 mg/dL 0-130 sodium, serum 134 mmol/L 636-196 8849/12/02 carbon dioxide, venous blood 30.3 mmol/L 21.0-32.0 [...] 5.0-8.5 Encounters Code Encounter Date Provider Facility CPT-[id number] Level 3 Est. Patient 15:12:03 CDT Gareth Cancino MD [facility] CPT-37385 Level 3 Est. Patient 23:08:20 CDT Gareth Cancino MD [facility] CPT-47962 Level 4 Est. Patient 20:40:10 CDT Gareth Cancino MD [facility] CPT-17442 Level 4 Est. Patient 19:50:11 CDT Gareth Cancino MD [facility] CPT-20958 Level 3 Est. Patient 11:00:13 CDT Gareth Cancino MD [facility] CPT-48620 Level 4 Est. Patient 11:20:21 CDT Gareth Cancino MD [facility] CPT-22753 Level 4 Est. Patient 09:22:18 BRUSH OR [employer] C[employer]TER Gareth Cancino MD [facility] CPT-98849 Level 3 Est. Patient 09:48:04 CDT Gareth Cancino MD [facility] CPT-33289 Level 3 Est. Patient 10:13:16 CDT Gareth Cancino MD [facility] CPT-61281 Level 2 Est. Patient 18:36:56 CDT Gareth Cancino MD [facility] CPT-46471 Level 4 Est. Patient 13:50:53 CDT Gareth Cancino MD [facility] CPT-98693 Level 3 Est. 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 CPT-51437 Level 4 Est. Patient 09:25:57 CDT Gareth Cancino MD [facility] CPT-23675 Level 3 Est. Patient 20:39:33 CDT Noman Edwards DO [facility] CPT-76875 Level 2 Est. Patient 13:17:39 CDT Gareth Cancino MD [facility] CPT-19682 Level 3 Est. Patient 13:37:20 CDT Gareth Cancino MD [facility] CPT-65985 Level 3 Est. Patient 18:09:08 CDT Gareth Cancino MD [facility] CPT-98444 Level 4 Est. Patient 09:59:07 CDT Gareth Cancino MD [facility] Procedures Code Procedure Name Date Entry Date Standard Description CPT-07279 Venipuncture Draw Fee 10:33:47 CDT CPT-06087 BMP - LAB USE ONLY 10:33:46 CDT CPT-Cryo Cryotherapy 15:12:03 CDT CPT-78471 LS spine AP and Lat - XRAY USE ONLY 10:31:51 CDT 07/27 CPT-51850 Punch biopsy 1 lsn 20:40:09 CDT CPT-G0008 Administration of Influenza Virus Vaccine 10:04:48 [employer] OR [employer] CPT-00866 Fluzone High-Dose Intramuscular Suspension 10:04:48 BR[employer] OR [employer] CPT-25475 Ribs unilat w PA chst min 3V 10:45:40 CDT CPT-LR Lesion Removal 13:14:55 CDT CPT-Cryo Cryotherapy 13:14:55 CDT CPT-47925 Venipuncture Draw Fee 10:25:49 CDT CPT-12427 Administration single or combination vaccine inc oral 13 :22:14 BRUSH OR BROOM CUTTER CPT-58874 Influenza High Dose age 65+ 13:22:14 BRUSH OR BROOM CUTTER
--- OUTSIDE RECORDS SUMMARY | 2016-12-06 08:40 | XMS REPORT | Clinical Summary ---
Author Author Admin, Leon Organization [employer] Address Unknown Phone Unavailable Allergies, Adverse Reactions, [...] cause Skin lesion 709.9 Active Blanca Castillo STAFF ASSISTANT Unspecified disorder of skin and subcutaneous tissue Folliculitis 704.8 Active Gareth Cancino MD Other specified diseases of hair and hair follicles Low back pain, chronic 724.2 Active Gareth Cancino MD Lumbago Frequency of urination 788.41 Active Negin Garcia SKID ADZER Urinary frequency Actinic keratosis 702.0 Active Gareth Cancino MD Actinic keratosis Bronchitis-Acute ICD-466.0 Inactive Gareth Cancino MD Medication List Medication Instructions Start Date Stop Date Generic Name NDC Status Provider Patient Instruction ALPRAZOLAM 0.25 MG TAB 1/2 to 1 tablet by mouth qhs prn ALPRAZOLAM 05587705727 No Longer Active Gareth Cancino MD Active CLOBETASOL PROPIONATE 0.05 % CREA apply to hand rash bid CLOBETASOL PROPIONATE 29638254787 No Longer Active Gareth Cancino MD Active BACTROBAN 2 % CREAM Apply to affected area BID MUPIROCIN CALCIUM 02325673788 No Longer Active Gareth Cancino MD Active LISINOPRIL 20 MG TABS 1 tablet by mouth daily for high blood pressure 10/14 LISINOPRIL 33817265464 Active Gareth Cancino MD Active BACTRIM DS 800-160 MG TAB 1 tab by mouth twice daily TRIMETHOPRIM-SULFAMETHOXAZOLE 56893945928 No Longer Active Gareth Cancino MD Active METOPROLOL SUCCINATE ER 100 MG [id number] 1 pill by mouth daily, for blood pressure METOPROLOL SUCCINATE 42099838456 Active Gareth Cancino MD Active KEFLEX 500 MG CAP 1 po TID x 10 days CEPHALEXIN 37881516237 No Longer Active Blanca Casitllo APRN Active WELLBUTRIN SR 150 MG ORAL [id number] take 1 tab po BID BUPROPION HCL 11293729029 Active Gareth Cancino MD Active METOPROLOL SUCCINATE 50 MG TB24 1 tablet by mouth daily METOPROLOL SUCCINATE 24596101776 No Longer Active Gareth Cancino MD Active OMEPRAZOLE 20 MG TBEC Take one by mouth daily OMEPRAZOLE 71579715383 No Longer Active Gareth Cancino MD Active OMEPRAZOLE 40 MG CPDR 1 tab po qday for acid reflux. OMEPRAZOLE 43697034452 Active Mary Shah APRN Active LEVAQUIN 500 MG TAB 1 tablet by mouth daily LEVOFLOXACIN 90507265624 No Longer Active Gareth Cancino MD Active ALEVE 220 MG TAB 2 tab po qd NAPROXEN SODIUM 57942482896 Active Gareth Cancino MD Active ASPIRIN 81 MG CHEW TAB 1 tablet by mouth daily ASPIRIN 97323299726 Active Gareth Cancino MD Active VENTOLIN HFA 108 (90 BASE) MCG/ACT AERS 1-2 puffs four times a day PRN shortness of breath ALBUTEROL SULFATE 97508458112 Active Mary Shah APRN Active CENTRUM SILVER TABS 1 TAB PO DAILY MULTIPLE VITAMINS-MINERALS 02373458401 Active Gareth Cancino MD Active VITAMIN B12 100 MCG TABS 1 TAB PO DAILY CYANOCOBALAMIN 00040783193 Active Gareth Cancino MD Active CIPRO 500 MG TABS 1 TAB PO BID CIPROFLOXACIN HCL 71732647049 No Longer Active Gareth Cancino MD Active BACTRIM DS 800-160 MG TAB 1 tab by mouth twice daily TRIMETHOPRIM-SULFAMETHOXAZOLE 72981532407 No Longer Active Gareth Cancino MD Active PREDNISONE 20 MG TAB 1 tab po BID for 3 days, then 1 tab po qday for 3 days PREDNISONE 64256056591 No Longer Active Gareth Cancino MD Active FOLIC ACID 800 MCG TABS Take one by mouth daily FOLIC ACID 69930754218 No Longer Active Gareth Cancino MD Active VITAMIN B-6 250 MG TABS Take one by mouth daily PYRIDOXINE HCL 42436643565 No Longer Active Gareth Cancino MD Active B-12 1000 MCG CAPS Take one by mouth daily CYANOCOBALAMIN 13371179941 No Longer Active Gareth Cancino MD Active DOXYCYCLINE HYCLATE 100 MG CAP 1 cap by mouth twice daily DOXYCYCLINE HYCLATE 80179271406 No Longer Active Gareth Cancino MD Active PREDNISONE 20 MG TAB 1 po bid 3 days, then 1 po q day 3 days 2011 PREDNISONE 03165837004 No Longer Active Gareth Cancino MD Active CHANTIX STARTING MONTH RUBEN 0.5 MG X 11 & 1 MG X 42 TABS 0.5mg daily for 3 days , then 0.5mg BID for 4 days, then 1mg BID VARENICLINE TARTRATE 10496063794 No Longer Active Gareth Cancino MD Active SIMVASTATIN 40 MG TABS Take one by mouth daily SIMVASTATIN 07200200458 Active Gareth Cancino MD Active TRIAMTERENE-HCTZ 37.5-25 MG CAPS Take one by mouth daily TRIAMTERENE- HCTZ 83567848369 Active Gareth Cancino MD Active CHANTIX STARTING [...] 3 days 2011 PREDNISONE 20 MG TAB 204708 PREDNISONE Inactive DOXYCYCLINE HYCLATE 100 MG CAP 1 cap by mouth twice daily DOXYCYCLINE HYCLATE 100 MG CAP 3872105 DOXYCYCLINE HYCLATE Inactive B-12 1000 MCG CAPS Take one by mouth daily B-12 1000 MCG CAPS CYANOCOBALAMIN Inactive VITAMIN B-6 250 MG TABS Take one by mouth daily VITAMIN B-6 250 MG TABS PYRIDOXINE HCL Inactive FOLIC ACID 800 MCG TABS Take one by mouth daily FOLIC ACID 800 MCG TABS 526356 FOLIC ACID Inactive CIPRO 500 MG TABS 1 TAB PO BID CIPRO 500 MG TABS 939901 CIPROFLOXACIN HCL Inactive OMEPRAZOLE 20 MG TBEC Take one by mouth daily OMEPRAZOLE 20 MG TBEC 150228 OMEPRAZOLE Inactive METOPROLOL SUCCINATE 50 MG TB24 1 tablet by mouth daily 2015/06/ 30 METOPROLOL SUCCINATE 50 MG TB24 METOPROLOL SUCCINATE Inactive BACTROBAN 2 % CREAM Apply to affected area BID BACTROBAN 2 % CREAM 762832 MUPIROCIN CALCIUM Inactive CLOBETASOL PROPIONATE 0.05 % CREA apply to hand rash bid CLOBETASOL PROPIONATE 0.05 % CREA 450345 CLOBETASOL PROPIONATE Inactive ALPRAZOLAM 0.25 MG TAB 1/2 to 1 tablet by mouth qhs prn ALPRAZOLAM 0.25 MG TAB 277507 ALPRAZOLAM Inactive PREDNISONE 20 MG TAB 1 tab po BID for 3 days, then 1 tab po qday for 3 days PREDNISONE 20 MG TAB 891093 PREDNISONE Inactive BACTRIM DS 800-160 MG TAB 1 tab by mouth twice daily BACTRIM DS 800-160 MG TAB 739185 TRIMETHOPRIM-SULFAMETHOXAZOLE Inactive LEVAQUIN 500 MG TAB 1 tablet by mouth daily LEVAQUIN 500 MG TAB 855284 LEVOFLOXACIN Inactive KEFLEX 500 MG CAP 1 po TID x 10 days KEFLEX 500 MG CAP 343282 CEPHALEXIN Inactive BACTRIM DS 800-160 MG TAB 1 tab by mouth twice daily BACTRIM DS 800-160 MG TAB 462850 TRIMETHOPRIM-SULFAMETHOXAZOLE Inactive Vital Signs Date Name Value [...] Panel - Chemistry sodium, serum 133 mmol/L 363-821 7370/08/24 potassium, serum 4.4 mmol/L 3.5-5.2 chloride, serum 95 mmol/L 98-107 carbon dioxide, venous blood 33.0 mmol/L 21.0-32.0 blood glucose 107 mg/dL 65-110 calcium, serum 8.8 mg/dL 8.5-10.1 urea nitrogen, blood 12 mg/dL 7-18 creatinine, serum 0.69 mg/dL 0.55-1.30 Lab Report: Lipid Panel, Comp. Metabolic Panel, CBC W/DIFF, MICROALB/CRE ... - Chemistry albumin/creatinine ratio, urine < 30 mg/g mg/g{creat} 0-29 cholesterol, serum 195 mg/dL 101-593 8216/12/02 triglyceride, serum, fasting 74 mg/dL 30-200 HDL cholesterol, serum 52 mg/dL 32-96 LDL cholesterol, serum 128 mg/dL 0-130 sodium, serum 134 mmol/L 959-877 1204/12/02 carbon dioxide, venous blood 30.3 mmol/L 21.0-32.0 [...] 5.0-8.5 Encounters Code Encounter Date Provider Facility [facility]-[id number] Level 3 Est. Patient 15:12:03 CDT Gareth Cancino MD [facility]-91131 Level 3 Est. Patient 23:08:20 CDT Gareth Cancino MD [facility]-17140 Level 4 Est. Patient 20:40:10 CDT Gareth Cancino MD [facility]-19334 Level 4 Est. Patient 19:50:11 CDT Gareth Cancino MD [facility]-99916 Level 3 Est. Patient 11:00:13 CDT Gareth Cancino MD [facility]-28413 Level 4 Est. Patient 11:20:21 CDT Gareth Cancino MD [facility]-25300 Level 4 Est. Patient 09:22:18 [employer] POLL[employer] SPECIALIST Gareth Cancino MD [facility]-85578 Level 3 Est. Patient 09:48:04 CDT Gareth Cancino MD [facility]-01469 Level 3 Est. Patient 10:13:16 CDT Gareth Cancino MD [facility]-39370 Level 2 Est. Patient 18:36:56 CDT Gareth Cancino MD [facility]-81581 Level 4 Est. Patient 13:50:53 CDT Gareth Cancino MD [facility]-05564 Level 3 Est. 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 Patient 09:25:57 CDT Gareth Cancino MD [facility] CPT-68831 Level 3 Est. Patient 20:39:33 CDT Noman Bravo Jerry GALARZA [facility] CPT-00779 Level 2 Est. Patient 13:17:39 CDT Gareth Cancino MD [facility] CPT-84024 Level 3 Est. Patient 13:37:20 CDT Gareth Cancino MD [facility] CPT-57285 Level 3 Est. Patient 18:09:08 CDT Gareth Cancino MD [facility] CPT-14917 Level 4 Est. Patient 09:59:07 CDT Gareth Cancino MD [facility] Procedures Code Procedure Name Date Entry Date Standard Description CPT-59450 Venipuncture Draw Fee 10:33:47 CDT CPT-29265 BMP - LAB USE ONLY 10:33:46 CDT CPT-Cryo Cryotherapy 15:12:03 CDT CPT-25313 LS spine AP and Lat - XRAY USE ONLY 10:31:51 CDT 07/27 CPT-87782 Punch biopsy 1 lsn 20:40:09 CDT CPT-G0008 Administration of Influenza Virus Vaccine 10:04:48 AIR [employer]LLUTION SPECIALIST CPT-20637 Fluzone High-Dose Intramuscular Suspension 10:04:48 AIR POLLUTION SPECIALIST CPT-21699 Ribs unilat w PA chst min 3V 10:45:40 CDT CPT-LR Lesion Removal 13:14:55 CDT CPT-Cryo Cryotherapy 13:14:55 CDT CPT-24071 Venipuncture Draw Fee 10:25:49 CDT CPT-00581 Administration single or combination vaccine inc oral 13 :22:14 AIR POLLUTION SPECIALIST CPT-25321 Influenza High Dose age 65+ 13:22:14 AIR POLLUTION SPECIALIST
--- OUTSIDE RECORDS SUMMARY | 2016-12-06 08:41 | XMS REPORT | Clinical Summary ---
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 Unspecified disorder of skin and subcutaneous tissue Folliculitis 704.8 Active Gareth Cancino MD Other specified diseases of hair and hair follicles Low back pain, chronic 724.2 Active Gareth Cancino MD Lumbago Frequency of urination 788.41 Active Negin Garcia REHABILITATION CONSULTANT Urinary frequency Actinic keratosis 702.0 Active Gareth Cacnino MD Actinic keratosis Pneumonia 486 Active Gareth [...] MG ORAL TABS 1 tab daily AZITHROMYCIN 39326309125 No Longer Active Gareth Cancino MD Active ZITHROMAX 250 MG TAB 2 po today, then 1 po q days 2-5 AZITHROMYCIN 62818534747 No Longer Active Tangela Forte Active IPRATROPIUM-ALBUTEROL 0.5-2.5 (3) MG/3ML INH SOLN nebulize 1 vial every 6hrs prn shortness of breath IPRATROPIUM-ALBUTEROL 29828525130 Active Gareth Cancino MD Active FENTANYL 25 MCG/HR PT72 Apply to clean, dry skin and change every 72 hours FENTANYL 26995817693 Active Gareth Cancino MD Active WELLBUTRIN SR 150 MG ORAL [id number] take 1 tab po BID BUPROPION HCL 82176576775 No Longer Active Gareth Cancino MD Active ZOFRAN 4 MG ORAL TABS 1 by mouth every 6 hours prn nausea ONDANSETRON HCL 10205293724 Active Tangela Forte Active TRAMADOL HCL 50 MG TABS 1 po tid PRN TRAMADOL HCL 52705867293 Active Gareth Cancino MD Active HYDROCODONE-ACETAMINOPHEN 5-325 MG TABS 1 tab by mouth every 6 hours as needed for bck pain HYDROCODONE-ACETAMINOPHEN 02985243917 Active Gareth Cancino MD Active ALPRAZOLAM 0.25 MG TAB 1/2 to 1 tablet by mouth qhs prn ALPRAZOLAM 20747698004 No Longer Active Gareth Cancino MD Active CLOBETASOL PROPIONATE 0.05 % CREA apply to hand rash bid CLOBETASOL PROPIONATE 43542601151 No Longer Active Gareth Cancino MD Active BACTROBAN 2 % CREAM Apply to affected area BID MUPIROCIN CALCIUM 04042022597 No Longer Active Gareth Cancino MD Active LISINOPRIL 20 MG TABS 1 tablet by mouth daily for high blood pressure 10/14 LISINOPRIL 99046914215 Active Gareth Cancino MD Active BACTRIM DS 800-160 MG TAB 1 tab by mouth twice daily TRIMETHOPRIM-SULFAMETHOXAZOLE 14823198561 No Longer Active Gareth Cancino MD Active METOPROLOL SUCCINATE ER 100 MG [id number] 1 pill by mouth daily, for blood pressure METOPROLOL SUCCINATE 67722964582 Active Gareth Cancino MD Active KEFLEX 500 MG CAP 1 po TID x 10 days CEPHALEXIN 24314701633 No Longer Active Blanca Castillo APRN Active METOPROLOL SUCCINATE 50 MG TB24 1 tablet by mouth daily METOPROLOL SUCCINATE 03344556564 No Longer Active Gareth Cancino MD Active OMEPRAZOLE 20 MG TBEC Take one by mouth daily OMEPRAZOLE 93371364666 No Longer Active Gareth Cancino MD Active OMEPRAZOLE 40 MG CPDR 1 tab po qday for acid reflux. OMEPRAZOLE 49375319025 Active Mary Shah APRN Active LEVAQUIN 500 MG TAB 1 tablet by mouth daily LEVOFLOXACIN 99059343921 No Longer Active Gareth Cancino MD Active ALEVE 220 MG TAB 2 tab po qd NAPROXEN SODIUM 01425007017 Active Gareth Cancino MD Active ASPIRIN 81 MG CHEW TAB 1 tablet by mouth daily ASPIRIN 14721658674 Active Gareth Cancino MD Active VENTOLIN HFA 108 (90 BASE) MCG/ACT AERS 1-2 puffs four times a day PRN shortness of breath ALBUTEROL SULFATE 44449109211 Active Mary Shah CEMENT CRUSHER OPERATOR Active CENTRUM SILVER TABS 1 TAB PO DAILY MULTIPLE VITAMINS-MINERALS 79938687796 Active Gareth Cancino MD Active VITAMIN B12 100 MCG TABS 1 TAB PO DAILY CYANOCOBALAMIN 71052804359 Active Gareth Cancino MD Active CIPRO 500 MG TABS 1 TAB PO BID CIPROFLOXACIN HCL 36813392763 No Longer Active Gareth Cancino MD Active BACTRIM DS 800-160 MG TAB 1 tab by mouth twice daily TRIMETHOPRIM-SULFAMETHOXAZOLE 46969650958 No Longer Active Gareth Cancino MD Active PREDNISONE 20 MG TAB 1 tab po BID for 3 days, then 1 tab po qday for 3 days PREDNISONE 63491938200 No Longer Active Gareth Cancino MD Active FOLIC ACID 800 MCG TABS Take one by mouth daily FOLIC ACID 05877707480 No Longer Active Gareth Cancino MD Active VITAMIN B-6 250 MG TABS Take one by mouth daily PYRIDOXINE HCL 08308369188 No Longer Active Gareth Cancino MD Active B-12 1000 MCG CAPS Take one by mouth daily CYANOCOBALAMIN 09487651167 No Longer Active Gareth Cancino MD Active DOXYCYCLINE HYCLATE 100 MG CAP 1 cap by mouth twice daily DOXYCYCLINE HYCLATE 61078609561 No Longer Active Gareth Cancino MD Active PREDNISONE 20 MG TAB 1 po bid 3 days, then 1 po q day 3 days 2011 PREDNISONE 80805116614 No Longer Active Gareth Cancino MD Active CHANTIX STARTING MONTH RUBEN 0.5 MG X 11 & 1 MG X 42 TABS 0.5mg daily for 3 days , then 0.5mg BID for 4 days, then 1mg BID VARENICLINE TARTRATE 41730636712 No Longer Active Gareth Cancino MD Active SIMVASTATIN 40 MG TABS Take one by mouth daily SIMVASTATIN 20563461120 Active Gareth Cancino MD Active TRIAMTERENE-HCTZ 37.5-25 MG CAPS Take one by mouth daily TRIAMTERENE- HCTZ 50600089797 Active Gareth Cancino MD Active CHANTIX STARTING [...] 3 days 2011 PREDNISONE 20 MG TAB 941991 PREDNISONE Inactive DOXYCYCLINE HYCLATE 100 MG CAP 1 cap by mouth twice daily DOXYCYCLINE HYCLATE 100 MG CAP 0827355 DOXYCYCLINE HYCLATE Inactive B-12 1000 MCG CAPS Take one by mouth daily B-12 1000 MCG CAPS CYANOCOBALAMIN Inactive VITAMIN B-6 250 MG TABS Take one by mouth daily VITAMIN B-6 250 MG TABS PYRIDOXINE HCL Inactive FOLIC ACID 800 MCG TABS Take one by mouth daily FOLIC ACID 800 MCG TABS 449224 FOLIC ACID Inactive CIPRO 500 MG TABS 1 TAB PO BID CIPRO 500 MG TABS 161250 CIPROFLOXACIN HCL Inactive OMEPRAZOLE 20 MG TBEC Take one by mouth daily OMEPRAZOLE 20 MG TBEC 991256 OMEPRAZOLE Inactive METOPROLOL SUCCINATE 50 MG TB24 1 tablet by mouth daily METOPROLOL SUCCINATE 50 MG TB24 METOPROLOL SUCCINATE Inactive BACTROBAN 2 % CREAM Apply to affected area BID BACTROBAN 2 % CREAM 110892 MUPIROCIN CALCIUM Inactive CLOBETASOL PROPIONATE 0.05 % CREA apply to hand rash bid CLOBETASOL PROPIONATE 0.05 % CREA 456766 CLOBETASOL PROPIONATE Inactive ALPRAZOLAM 0.25 MG TAB 1/2 to 1 tablet by mouth qhs prn ALPRAZOLAM 0.25 MG TAB 897181 ALPRAZOLAM Inactive WELLBUTRIN SR 150 MG ORAL [id number] take 1 tab po BID WELLBUTRIN SR 150 MG ORAL [id number] BUPROPION HCL Inactive AZITHROMYCIN 250 MG ORAL TABS 1 tab daily AZITHROMYCIN 250 MG ORAL TABS 2799112 AZITHROMYCIN Inactive PREDNISONE 20 MG TAB 1 tab po BID for 3 days, then 1 tab po qday for 3 days PREDNISONE 20 MG TAB 498713 PREDNISONE Inactive BACTRIM DS 800-160 MG TAB 1 tab by mouth twice daily BACTRIM DS 800-160 MG TAB 597232 TRIMETHOPRIM-SULFAMETHOXAZOLE Inactive LEVAQUIN 500 MG TAB 1 tablet by mouth daily LEVAQUIN 500 MG TAB 753226 LEVOFLOXACIN Inactive KEFLEX 500 MG CAP 1 po TID x 10 days KEFLEX 500 MG CAP 809927 CEPHALEXIN Inactive BACTRIM DS 800-160 MG TAB 1 tab by mouth twice daily BACTRIM DS 800-160 MG TAB 870019 TRIMETHOPRIM-SULFAMETHOXAZOLE Inactive ZITHROMAX 250 MG TAB 2 po today, then 1 po q days 2-5 ZITHROMAX 250 MG TAB 2229450 AZITHROMYCIN Inactive Vital Signs Date Name Value [...] Panel - Chemistry sodium, serum 133 mmol/L 924-585 8505/08/24 potassium, serum 4.4 mmol/L 3.5-5.2 chloride, serum 95 mmol/L 98-107 carbon dioxide, venous blood 33.0 mmol/L 21.0-32.0 blood glucose 107 mg/dL 65-110 calcium, serum 8.8 mg/dL 8.5-10.1 urea nitrogen, blood 12 mg/dL 7-18 creatinine, serum 0.69 mg/dL 0.55-1.30 Lab Report: CBC, Basic Metabolic Panel - Chemistry sodium, serum 132 mmol/L 865-055 9629/10/12 potassium, serum 4.7 mmol/L 3.5-5.2 chloride, serum [...] CBC - Chemistry sodium, serum 136 mmol/L 636-341 9131/11/01 carbon dioxide, venous blood 32.1 mmol/L 21.0-32.0 [...] mg/g mg/g{creat} 0-29 cholesterol, serum 195 mg/dL 292-232 1556/12/02 triglyceride, serum, fasting 74 mg/dL 30-200 HDL cholesterol, serum 52 mg/dL 32-96 LDL cholesterol, serum 128 mg/dL 0-130 sodium, serum 134 mmol/L 610-736 3771/12/02 carbon dioxide, venous blood 30.3 mmol/L 21.0-32.0 [...] 5.0-8.5 Encounters Code Encounter Date Provider Facility CPT-25462 Level 3 Est. Patient 10:34:55 CDT Gareth Cancino MD [facility] CPT-89786 Level 4 Est. Patient 09:00:18 CDT Gareth Cancino MD [facility] CPT-95506 Level 3 Est. Patient 15:12:03 CDT Gareth Cancino MD [facility] CPT-43020 Level 3 Est. Patient 23:08:20 CDT Gareth Cancino MD [facility]-83776 Level 4 Est. Patient 20:40:10 CDT Gareth Cancino MD [facility] CPT-81895 Level 4 Est. Patient 19:50:11 CDT Gareth Cancino MD [facility] CPT-83809 Level 3 Est. Patient 11:00:13 CDT Gareth Cancino MD [facility] CPT-80782 Level 4 Est. Patient 11:20:21 CDT Gareth Cancino MD [facility] CPT-13700 Level 4 Est. Patient 09:22:18 RECOOPERER Gareth Cancino MD [facility] CPT-43206 Level 3 Est. Patient 09:48:04 CDT Gareth Cancino MD [facility] CPT-50067 Level 3 Est. Patient 10:13:16 CDT Gareth Cancino MD [facility] CPT-67153 Level 2 Est. Patient 18:36:56 CDT Gareth Cancino MD [facility] CPT-47088 Level 4 Est. Patient 13:50:53 CDT Gareth Cancino MD [facility] CPT-32255 Level 3 Est. Patient 14:58:33 RECOOPERER Gareth Cancino MD [facility] CPT-61819 Level 4 Est. Patient 09:25:57 CDT Gareth Cancino MD [facility] CPT-53435 Level 3 Est. Patient 20:39:33 CDT Noman Edwards DO [facility] CPT-68690 Level 2 Est. Patient 13:17:39 CDT Gareth Cancino MD [facility] CPT-36337 Level 3 Est. Patient 13:37:20 CDT Gareth Cancino MD [facility] CPT-93989 Level 3 Est. Patient 18:09:08 CDT Gareth Cancino MD [facility] CPT-53947 Level 4 Est. Patient 09:59:07 CDT Gareth Cancino MD [facility] Procedures Code Procedure Name Date Entry Date Standard Description CPT-57960 BMP - LAB USE ONLY 14:37:27 CDT CPT-13293 CBC - LAB USE ONLY 14:37:27 CDT CPT-37191 Venipuncture Draw Fee 14:37:27 CDT CPT-TCMM Transitional Care Mgmt-Moderate 14:43:38 CDT CPT-61052 Venipuncture Draw Fee 10:33:47 CDT CPT-47835 BMP - LAB USE ONLY 10:33:46 CDT CPT-Cryo Cryotherapy 15:12:03 CDT CPT-12320 LS spine AP and Lat - XRAY USE ONLY 10:31:51 CDT 07/27 CPT-12528 Punch biopsy 1 lsn 20:40:09 CDT CPT-G0008 Administration of Influenza Virus Vaccine 10:04:48 RECOOPERER CPT-25766 Fluzone High-Dose Intramuscular Suspension 10:04:48 RECOOPERER CPT-02455 Ribs unilat w PA chst min 3V 10:45:40 CDT CPT-LR Lesion Removal 13:14:55 CDT CPT-Cryo Cryotherapy 13:14:55 CDT CPT-06944 Venipuncture Draw Fee 10:25:49 CDT CPT-76608 Administration single or combination vaccine inc oral 13 :22:14 RECOOPERER CPT-81139 Influenza High Dose age 65+ 13:22:14 RECOOPERER
--- OUTSIDE RECORDS SUMMARY | 2016-12-06 08:42 | XMS REPORT | Clinical Summary ---
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 Urinary frequency Actinic keratosis 702.0 Active Gareth [...] hours as needed for bck pain HYDROCODONE-ACETAMINOPHEN 97979051530 No Longer Active Gareth Cancino MD Active FENTANYL 12 MCG/HR PT72 Apply to clean, dry skin and change every 72 hours FENTANYL 24850648769 Active Gareth Cancino MD Active ALPRAZOLAM 0.25 MG TAB 1 tablet by mouth q hs prn ALPRAZOLAM 99569941021 Active Gareth Cancino MD Active AZITHROMYCIN 250 MG ORAL TABS 1 tab daily AZITHROMYCIN 37461763923 No Longer Active Gareth Cancino MD Active ZITHROMAX 250 MG TAB 2 po today, then 1 po q days 2-5 AZITHROMYCIN 38027124256 No Longer Active Tangela Forte Active IPRATROPIUM-ALBUTEROL 0.5-2.5 (3) MG/3ML INH SOLN nebulize 1 vial every 6hrs prn shortness of breath IPRATROPIUM-ALBUTEROL 14850281305 Active Gareth Cancino MD Active FENTANYL 25 MCG/HR PT72 Apply to clean, dry skin and change every 72 hours FENTANYL 76487296699 No Longer Active Gareth Cancino MD Active WELLBUTRIN SR 150 MG ORAL [id number] take 1 tab po BID BUPROPION HCL 59322579571 No Longer Active Gareth Cancino MD Active ZOFRAN 4 MG ORAL TABS 1 by mouth every 6 hours prn nausea ONDANSETRON HCL 78635036461 Active Tangela Forte Active TRAMADOL HCL 50 MG TABS 1 po tid PRN TRAMADOL HCL 46999432479 Active Gareth Cancino MD Active ALPRAZOLAM 0.25 MG TAB 1/2 to 1 tablet by mouth qhs prn ALPRAZOLAM 67211947395 No Longer Active Gareth Cancino MD Active CLOBETASOL PROPIONATE 0.05 % CREA apply to hand rash bid CLOBETASOL PROPIONATE 78128004860 No Longer Active Gareth Cancino MD Active BACTROBAN 2 % CREAM Apply to affected area BID MUPIROCIN CALCIUM 13972884747 No Longer Active Gareth Cancino MD Active LISINOPRIL 20 MG TABS 1 tablet by mouth daily for high blood pressure 10/14 LISINOPRIL 68609187033 Active Gareth Cancino MD Active BACTRIM DS 800-160 MG TAB 1 tab by mouth twice daily TRIMETHOPRIM-SULFAMETHOXAZOLE 11919115511 No Longer Active Gareth Cancino MD Active METOPROLOL SUCCINATE ER 100 MG [id number] 1 pill by mouth daily, for blood pressure METOPROLOL SUCCINATE 41522238935 Active Gareth Cancino MD Active KEFLEX 500 MG CAP 1 po TID x 10 days CEPHALEXIN 78762909902 No Longer Active Blanca Castillo APRN Active METOPROLOL SUCCINATE 50 MG TB24 1 tablet by mouth daily METOPROLOL SUCCINATE 81053503468 No Longer Active Gareth Cancino MD Active OMEPRAZOLE 20 MG TBEC Take one by mouth daily OMEPRAZOLE 88073151203 No Longer Active Gareth Cancino MD Active OMEPRAZOLE 40 MG CPDR 1 tab po qday for acid reflux. OMEPRAZOLE 84523822335 Active Mary Shah APRN Active LEVAQUIN 500 MG TAB 1 tablet by mouth daily LEVOFLOXACIN 83827788042 No Longer Active Gareth Cancino MD Active ALEVE 220 MG TAB 2 tab po qd NAPROXEN SODIUM 73005670153 Active Gareth Cancino MD Active ASPIRIN 81 MG CHEW TAB 1 tablet by mouth daily ASPIRIN 42593223467 Active Gareth Cancino MD Active VENTOLIN HFA 108 (90 BASE) MCG/ACT AERS 1-2 puffs four times a day PRN shortness of breath ALBUTEROL SULFATE 78919422101 Active Mary Shah APRN Active CENTRUM SILVER TABS 1 TAB PO DAILY MULTIPLE VITAMINS-MINERALS 55901848908 Active Gareth Cancino MD Active VITAMIN B12 100 MCG TABS 1 TAB PO DAILY CYANOCOBALAMIN 99155731244 Active Gareth Cancino MD Active CIPRO 500 MG TABS 1 TAB PO BID CIPROFLOXACIN HCL 86030688947 No Longer Active Gareth Cancino MD Active BACTRIM DS 800-160 MG TAB 1 tab by mouth twice daily TRIMETHOPRIM-SULFAMETHOXAZOLE 99793005258 No Longer Active Gareth Cancino MD Active PREDNISONE 20 MG TAB 1 tab po BID for 3 days, then 1 tab po qday for 3 days PREDNISONE 39463175154 No Longer Active Gareth Cancino MD Active FOLIC ACID 800 MCG TABS Take one by mouth daily FOLIC ACID 51645493663 No Longer Active Gareth Cancino MD Active VITAMIN B-6 250 MG TABS Take one by mouth daily PYRIDOXINE HCL 63725229339 No Longer Active Gareth Cancino MD Active B-12 1000 MCG CAPS Take one by mouth daily CYANOCOBALAMIN 23160647397 No Longer Active Gareth Cancino MD Active DOXYCYCLINE HYCLATE 100 MG CAP 1 cap by mouth twice daily DOXYCYCLINE HYCLATE 45129392602 No Longer Active Gareth Cancino MD Active PREDNISONE 20 MG TAB 1 po bid 3 days, then 1 po q day 3 days 2011 PREDNISONE 79516638517 No Longer Active Gareth Cancino MD Active CHANTIX STARTING MONTH RUBEN 0.5 MG X 11 & 1 MG X 42 TABS 0.5mg daily for 3 days , then 0.5mg BID for 4 days, then 1mg BID VARENICLINE TARTRATE 44853245039 No Longer Active Gareth Cancino MD Active SIMVASTATIN 40 MG TABS Take one by mouth daily SIMVASTATIN 69057732022 Active Gareth Cancino MD Active TRIAMTERENE-HCTZ 37.5-25 MG CAPS Take one by mouth daily TRIAMTERENE- HCTZ 54035327577 Active Gareth Cancino MD Active CHANTIX STARTING [...] 3 days 2011 PREDNISONE 20 MG TAB 192924 PREDNISONE Inactive DOXYCYCLINE HYCLATE 100 MG CAP 1 cap by mouth twice daily DOXYCYCLINE HYCLATE 100 MG CAP 4220631 DOXYCYCLINE HYCLATE Inactive B-12 1000 MCG CAPS Take one by mouth daily B-12 1000 MCG CAPS CYANOCOBALAMIN Inactive VITAMIN B-6 250 MG TABS Take one by mouth daily VITAMIN B-6 250 MG TABS PYRIDOXINE HCL Inactive FOLIC ACID 800 MCG TABS Take one by mouth daily FOLIC ACID 800 MCG TABS 791679 FOLIC ACID Inactive CIPRO 500 MG TABS 1 TAB PO BID CIPRO 500 MG TABS 923615 CIPROFLOXACIN HCL Inactive OMEPRAZOLE 20 MG TBEC Take one by mouth daily OMEPRAZOLE 20 MG TBEC 796377 OMEPRAZOLE Inactive METOPROLOL SUCCINATE 50 MG TB24 1 tablet by mouth daily METOPROLOL SUCCINATE 50 MG TB24 METOPROLOL SUCCINATE Inactive BACTROBAN 2 % CREAM Apply to affected area BID BACTROBAN 2 % CREAM 707515 MUPIROCIN CALCIUM Inactive CLOBETASOL PROPIONATE 0.05 % CREA apply to hand rash bid CLOBETASOL PROPIONATE 0.05 % CREA 330140 CLOBETASOL PROPIONATE Inactive ALPRAZOLAM 0.25 MG TAB 1/2 to 1 tablet by mouth qhs prn ALPRAZOLAM 0.25 MG TAB 394314 ALPRAZOLAM Inactive WELLBUTRIN SR 150 MG ORAL [id number] take 1 tab po BID WELLBUTRIN SR 150 MG ORAL [id number] BUPROPION HCL Inactive AZITHROMYCIN 250 MG ORAL TABS 1 tab daily AZITHROMYCIN 250 MG ORAL TABS 7856308 AZITHROMYCIN Inactive HYDROCODONE-ACETAMINOPHEN 5-325 MG TABS 1 tab by mouth every 6 hours as needed for bck pain HYDROCODONE-ACETAMINOPHEN 5-325 MG TABS 292162 HYDROCODONE-ACETAMINOPHEN Inactive PREDNISONE 20 MG TAB 1 tab po BID for 3 days, then 1 tab po qday for 3 days PREDNISONE 20 MG TAB 377057 PREDNISONE Inactive BACTRIM DS 800-160 MG TAB 1 tab by mouth twice daily BACTRIM DS 800-160 MG TAB 951504 TRIMETHOPRIM-SULFAMETHOXAZOLE Inactive LEVAQUIN 500 MG TAB 1 tablet by mouth daily LEVAQUIN 500 MG TAB 852454 LEVOFLOXACIN Inactive KEFLEX 500 MG CAP 1 po TID x 10 days KEFLEX 500 MG CAP 004284 CEPHALEXIN Inactive BACTRIM DS 800-160 MG TAB 1 tab by mouth twice daily BACTRIM DS 800-160 MG TAB 607116 TRIMETHOPRIM-SULFAMETHOXAZOLE Inactive FENTANYL 25 MCG/HR PT72 Apply to clean, dry skin and change every 72 hours FENTANYL 25 MCG/HR PT72 602081 FENTANYL Inactive ZITHROMAX 250 MG TAB 2 po today, then 1 po q days 2-5 ZITHROMAX 250 MG TAB 8910404 AZITHROMYCIN Inactive Vital Signs Date Name Value [...] Panel - Chemistry sodium, serum 133 mmol/L 077-074 1892/08/24 potassium, serum 4.4 mmol/L 3.5-5.2 chloride, serum 95 mmol/L 98-107 carbon dioxide, venous blood 33.0 mmol/L 21.0-32.0 blood glucose 107 mg/dL 65-110 calcium, serum 8.8 mg/dL 8.5-10.1 urea nitrogen, blood 12 mg/dL 7-18 creatinine, serum 0.69 mg/dL 0.55-1.30 Lab Report: CBC, Basic Metabolic Panel - Chemistry sodium, serum 132 mmol/L 138-702 8800/10/12 potassium, serum 4.7 mmol/L 3.5-5.2 chloride, serum [...] CBC - Chemistry sodium, serum 136 mmol/L 664-908 1874/11/01 carbon dioxide, venous blood 32.1 mmol/L 21.0-32.0 [...] ... - Chemistry cholesterol, serum 195 mg/dL 566-759 5345/12/02 triglyceride, serum, fasting 74 mg/dL 30-200 HDL cholesterol, serum 52 mg/dL 32-96 LDL cholesterol, serum 128 mg/dL 0-130 sodium, serum 134 mmol/L 327-154 8154/12/02 carbon dioxide, venous blood 30.3 mmol/L 21.0-32.0 [...] 5.0-8.5 Encounters Code Encounter Date Provider Facility CPT-75260 Level 3 Est. Patient 10:34:55 CDT Gareth Cancino MD [facility] [place]-62861 Level 4 Est. Patient 09:00:18 CDT Gareth Cancino MD [facility] [place]-83262 Level 3 Est. Patient 15:12:03 CDT Gareth Cancino MD [facility] [place]-94086 Level 3 Est. Patient 23:08:20 CDT Gareth Cancnio MD [facility] [place]-16446 Level 4 Est. Patient 20:40:10 CDT Gareth Cancino MD [facility] CPT-36576 Level 4 Est. Patient 19:50:11 CDT Gareth Cancino MD [facility] CPT-39547 Level 3 Est. Patient 11:00:13 CDT Gareth Cancino MD [facility] CPT-21354 Level 4 Est. Patient 11:20:21 CDT Gareth Cancino MD [facility] CPT-34560 Level 4 Est. Patient 09:22:18 GLOBAL SOURCING MANAGER Gareth Cancino MD [facility] CPT-65231 Level 3 Est. Patient 09:48:04 CDT Gareth Cancino MD [facility] CPT-49874 Level 3 Est. Patient 10:13:16 CDT Gareth Cancino MD [facility] CPT-24152 Level 2 Est. Patient 18:36:56 CDT Gareth Cancino MD [facility] CPT-37170 Level 4 Est. Patient 13:50:53 CDT Gareth Cancino MD [facility] CPT-18879 Level 3 Est. Patient 14:58:33 GLOBAL SOURCING MANAGER Gareth Cancino MD [facility] CPT-24399 Level 4 Est. Patient 09:25:57 CDT Gareth Cancino MD [facility] CPT-24961 Level 3 Est. Patient 20:39:33 CDT Noman Edwards DO [facility] CPT-64631 Level 2 Est. Patient 13:17:39 CDT Gareth Cancino MD [facility] CPT-84124 Level 3 Est. Patient 13:37:20 CDT Gareth Cancino MD [facility] CPT-09091 Level 3 Est. Patient 18:09:08 CDT Gareth Cancino MD [facility] CPT-83070 Level 4 Est. Patient 09:59:07 CDT Gareth Cancino MD [facility] Procedures Code Procedure Name Date Entry Date Standard Description CPT-G0009 Administration of Pneumococcal Vaccine 11:42:53 GLOBAL SOURCING MANAGER CPT-22585 Prevnar 13 Intramuscular Suspension 11:42:53 GLOBAL SOURCING MANAGER 01/07 CPT-34996 First Vx - Ix admin for Medicare patients 11:39:44 GLOBAL SOURCING MANAGER CPT-69051 Fluzone High-Dose Intramuscular Suspension 11:39:44 GLOBAL SOURCING MANAGER CPT-76354 Prevnar 13 Intramuscular Suspension 09:29:52 GLOBAL SOURCING MANAGER 01/07 CPT-17376 CMP - LAB USE ONLY 16:31:15 CDT CPT-62654 CBC - LAB USE ONLY 16:31:14 CDT CPT-12063 Venipuncture Draw Fee 16:31:14 CDT CPT-25311 BMP - LAB USE ONLY 14:37:27 CDT CPT-97707 CBC - LAB USE ONLY 14:37:27 CDT CPT-61244 Venipuncture Draw Fee 14:37:27 CDT CPT-TCMM Transitional Care Mgmt-Moderate 14:43:38 CDT CPT-51634 Venipuncture Draw Fee 10:33:47 CDT CPT-20590 BMP - LAB USE ONLY 10:33:46 CDT CPT-Cryo Cryotherapy 15:12:03 CDT CPT-57673 LS spine AP and Lat - XRAY USE ONLY 10:31:51 CDT 07/27 CPT-79766 Punch biopsy 1 lsn 20:40:09 CDT CPT-G0008 Administration of Influenza Virus Vaccine 10:04:48 GLOBAL SOURCING MANAGER CPT-09609 Fluzone High-Dose Intramuscular Suspension 10:04:48 GLOBAL SOURCING MANAGER CPT-05895 Ribs unilat w PA chst min 3V 10:45:40 CDT CPT-LR Lesion Removal 13:14:55 CDT CPT-Cryo Cryotherapy 13:14:55 CDT CPT-80594 Venipuncture Draw Fee 10:25:49 CDT CPT-73012 Administration single or combination vaccine inc oral 13 :22:14 GLOBAL SOURCING MANAGER CPT-90321 Influenza High Dose age 65+ 13:22:14 GLOBAL SOURCING MANAGER
--- OUTSIDE RECORDS SUMMARY | 2016-12-06 08:43 | XMS REPORT | Clinical Summary ---
Author Author Admin, HILARIA Organization [facility] Address Unknown Phone Unavailable Allergies, Adverse Reactions, [...] stenosis of unspecified region Dizziness 780.4 Active aGreth Cancino MD Dizziness and giddiness Dysuria 788.1 [...] po daily as needed for arthritis/pain PIROXICAM 87613372077 Active Gareth Cancino MD Active ZITHROMAX Z-RUBEN 250 MG TABS 2 today, then 1 daily for 4 days 2016 AZITHROMYCIN 88111878895 No Longer Active Tangelashar Forte Active FENTANYL 25 MCG/HR TRANS PT72 1 patch every 72 hours FENTANYL 15905432868 Active Mary Shah APRN Active PREDNISONE 20 MG TAB take 3 tabs daily for 3 days, 2 tabs daily for 3 days, 1 tab daily for 3 days, 1/2 tab daily for 4 days PREDNISONE 72343957575 No Longer Active Mary Shah APRN Active LEVAQUIN 500 MG TAB 1 tablet by mouth daily for 7 days LEVOFLOXACIN 54483172532 Active Marylennox Shah APRN Active AZITHROMYCIN 250 MG TABS 2 po qd x 1 day, then 1 po qd x 4 days AZITHROMYCIN 49875564131 No Longer Active Danuta Rian Active AZITHROMYCIN 250 MG TABS 2 po qd x 1 day, then 1 po qd x 4 days AZITHROMYCIN 27757222277 No Longer Active Tangela Forte Active HYDROCODONE-ACETAMINOPHEN 5-325 MG TABS 1 tab by mouth every 6 hours as needed for bck pain HYDROCODONE-ACETAMINOPHEN 01251322187 No Longer Active Gareth Cancino MD Active ALPRAZOLAM 0.25 MG TAB 1 tablet by mouth q hs prn ALPRAZOLAM 49174097882 Active Gareth Cancino MD Active AZITHROMYCIN 250 MG ORAL TABS 1 tab daily AZITHROMYCIN 52327110434 No Longer Active Gareth Cancino MD Active ZITHROMAX 250 MG TAB 2 po today, then 1 po q days 2-5 AZITHROMYCIN 78578721257 No Longer Active Tangela Raida Active IPRATROPIUM-ALBUTEROL 0.5-2.5 (3) MG/3ML INH SOLN nebulize 1 vial every 6hrs prn shortness of breath IPRATROPIUM-ALBUTEROL 57658155387 Active Gareth Cancino MD Active FENTANYL 25 MCG/HR PT72 Apply to clean, dry skin and change every 72 hours FENTANYL 85145327497 No Longer Active Gareth Cancino MD Active WELLBUTRIN SR 150 MG ORAL [id number] take 1 tab po BID BUPROPION HCL 44408516899 No Longer Active Gareth Cancino MD Active ZOFRAN 4 MG ORAL TABS 1 by mouth every 6 hours prn nausea ONDANSETRON HCL 74391402583 Active Tangela Forte Active TRAMADOL HCL 50 MG TABS 1 po tid PRN TRAMADOL HCL 94384308897 Active Gareth Cancino MD Active ALPRAZOLAM 0.25 MG TAB 1/2 to 1 tablet by mouth qhs prn ALPRAZOLAM 94859396086 No Longer Active Gareth Cancino MD Active CLOBETASOL PROPIONATE 0.05 % CREA apply to hand rash bid CLOBETASOL PROPIONATE 31745254603 No Longer Active Gareth Cancino MD Active BACTROBAN 2 % CREAM Apply to affected area BID MUPIROCIN CALCIUM 40525507308 No Longer Active Gareth Cancino MD Active LISINOPRIL 20 MG TABS 1 tablet by mouth daily for high blood pressure 10/14 LISINOPRIL 58560836025 Active Gareth Cancino MD Active BACTRIM DS 800-160 MG TAB 1 tab by mouth twice daily TRIMETHOPRIM-SULFAMETHOXAZOLE 73967644581 No Longer Active Gareth Cancino MD Active METOPROLOL SUCCINATE ER 100 MG [id number] 1 pill by mouth daily, for blood pressure METOPROLOL SUCCINATE 56377440333 Active Gareth Cancino MD Active KEFLEX 500 MG CAP 1 po TID x 10 days CEPHALEXIN 14692391107 No Longer Active Blanca Castillo APRN Active METOPROLOL SUCCINATE 50 MG TB24 1 tablet by mouth daily METOPROLOL SUCCINATE 44109841487 No Longer Active Gareth Cancino MD Active OMEPRAZOLE 20 MG TBEC Take one by mouth daily OMEPRAZOLE 24423950915 No Longer Active Gareth Cancino MD Active OMEPRAZOLE 40 MG CPDR 1 tab po qday for acid reflux. OMEPRAZOLE 53411128057 Active Mary Shah APRN Active LEVAQUIN 500 MG TAB 1 tablet by mouth daily LEVOFLOXACIN 67446105557 No Longer Active Gareth Cancino MD Active ALEVE 220 MG TAB 2 tab po qd NAPROXEN SODIUM 56220914489 Active Gareth Cancino MD Active ASPIRIN 81 MG CHEW TAB 1 tablet by mouth daily ASPIRIN 52397947881 Active Gareth Cancino MD Active VENTOLIN HFA 108 (90 BASE) MCG/ACT AERS 1-2 puffs four times a day PRN shortness of breath ALBUTEROL SULFATE 33356194410 Active Mary Shah APRN Active CENTRUM SILVER TABS 1 TAB PO DAILY MULTIPLE VITAMINS-MINERALS 67025100483 Active Gareth Cancino MD Active VITAMIN B12 100 MCG TABS 1 TAB PO DAILY CYANOCOBALAMIN 39228361400 Active Gareth Cancino MD Active CIPRO 500 MG TABS 1 TAB PO BID CIPROFLOXACIN HCL 24454050886 No Longer Active Gareth Cancino MD Active BACTRIM DS 800-160 MG TAB 1 tab by mouth twice daily TRIMETHOPRIM-SULFAMETHOXAZOLE 74919518386 No Longer Active Gareth Cancino MD Active PREDNISONE 20 MG TAB 1 tab po BID for 3 days, then 1 tab po qday for 3 days PREDNISONE 71283959460 No Longer Active Gareth Cancino MD Active FOLIC ACID 800 MCG TABS Take one by mouth daily FOLIC ACID 63425709888 No Longer Active Gareth Cancino MD Active VITAMIN B-6 250 MG TABS Take one by mouth daily PYRIDOXINE HCL 39884938164 No Longer Active Gareth Cancino MD Active B-12 1000 MCG CAPS Take one by mouth daily CYANOCOBALAMIN 57910867251 No Longer Active Gareth Cancino MD Active DOXYCYCLINE HYCLATE 100 MG CAP 1 cap by mouth twice daily DOXYCYCLINE HYCLATE 66505086077 No Longer Active Gareth Cancino MD Active PREDNISONE 20 MG TAB 1 po bid 3 days, then 1 po q day 3 days 2011 PREDNISONE 57219387254 No Longer Active Gareth Cancino MD Active CHANTIX STARTING MONTH RUBEN 0.5 MG X 11 & 1 MG X 42 TABS 0.5mg daily for 3 days , then 0.5mg BID for 4 days, then 1mg BID VARENICLINE TARTRATE 27509462244 No Longer Active Gareth Cancino MD Active SIMVASTATIN 40 MG TABS Take one by mouth daily SIMVASTATIN 20581612111 Active Gareth Cancino MD Active TRIAMTERENE-HCTZ 37.5-25 MG CAPS Take one by mouth daily TRIAMTERENE- HCTZ 77196820862 Active Mary Shah APRN Active CHANTIX STARTING [...] 3 days 2011 PREDNISONE 20 MG TAB 935369 PREDNISONE Inactive DOXYCYCLINE HYCLATE 100 MG CAP 1 cap by mouth twice daily DOXYCYCLINE HYCLATE 100 MG CAP 1632854 DOXYCYCLINE HYCLATE Inactive B-12 1000 MCG CAPS Take one by mouth daily B-12 1000 MCG CAPS CYANOCOBALAMIN Inactive VITAMIN B-6 250 MG TABS Take one by mouth daily VITAMIN B-6 250 MG TABS PYRIDOXINE HCL Inactive FOLIC ACID 800 MCG TABS Take one by mouth daily FOLIC ACID 800 MCG TABS 758090 FOLIC ACID Inactive CIPRO 500 MG TABS 1 TAB PO BID CIPRO 500 MG TABS 374737 CIPROFLOXACIN HCL Inactive OMEPRAZOLE 20 MG TBEC Take one by mouth daily OMEPRAZOLE 20 MG [facility] 699066 OMEPRAZOLE Inactive METOPROLOL SUCCINATE 50 MG TB24 1 tablet by mouth daily METOPROLOL SUCCINATE 50 MG TB24 METOPROLOL SUCCINATE Inactive BACTROBAN 2 % CREAM Apply to affected area BID BACTROBAN 2 % CREAM 975207 MUPIROCIN CALCIUM Inactive CLOBETASOL PROPIONATE 0.05 % CREA apply to hand rash bid CLOBETASOL PROPIONATE 0.05 % CREA 445489 CLOBETASOL PROPIONATE Inactive ALPRAZOLAM 0.25 MG TAB 1/2 to 1 tablet by mouth qhs prn ALPRAZOLAM 0.25 MG TAB 059998 ALPRAZOLAM Inactive WELLBUTRIN SR 150 MG ORAL [id number] take 1 tab po BID WELLBUTRIN SR 150 MG ORAL [id number] BUPROPION HCL Inactive AZITHROMYCIN 250 MG ORAL TABS 1 tab daily AZITHROMYCIN 250 MG ORAL TABS 6330491 AZITHROMYCIN Inactive HYDROCODONE-ACETAMINOPHEN 5-325 MG TABS 1 tab by mouth every 6 hours as needed for bck pain HYDROCODONE-ACETAMINOPHEN 5-325 MG TABS 466046 HYDROCODONE-ACETAMINOPHEN Inactive PREDNISONE 20 MG TAB 1 tab po BID for 3 days, then 1 tab po qday for 3 days PREDNISONE 20 MG TAB 949765 PREDNISONE Inactive BACTRIM DS 800-160 MG TAB 1 tab by mouth twice daily BACTRIM DS 800-160 MG TAB 843207 TRIMETHOPRIM-SULFAMETHOXAZOLE Inactive LEVAQUIN 500 MG TAB 1 tablet by mouth daily LEVAQUIN 500 MG TAB 725337 LEVOFLOXACIN Inactive KEFLEX 500 MG CAP 1 po TID x 10 days KEFLEX 500 MG CAP 492265 CEPHALEXIN Inactive BACTRIM DS 800-160 MG TAB 1 tab by mouth twice daily BACTRIM DS 800-160 MG TAB 355429 TRIMETHOPRIM-SULFAMETHOXAZOLE Inactive FENTANYL 25 MCG/HR PT72 Apply to clean, dry skin and change every 72 hours FENTANYL 25 MCG/HR PT72 853298 FENTANYL Inactive ZITHROMAX 250 MG TAB 2 po today, then 1 po q days 2-5 ZITHROMAX 250 MG TAB 1364497 AZITHROMYCIN Inactive AZITHROMYCIN 250 MG TABS 2 po qd x 1 day, then 1 po qd x 4 days AZITHROMYCIN 250 MG TABS 7537172 AZITHROMYCIN Inactive AZITHROMYCIN 250 MG TABS 2 po qd x 1 day, then 1 po qd x 4 days AZITHROMYCIN 250 MG TABS 8769648 AZITHROMYCIN Inactive PREDNISONE 20 MG TAB take 3 tabs daily for 3 days, 2 tabs daily for 3 days, 1 tab daily for 3 days, 1/2 tab daily for 4 days PREDNISONE 20 MG TAB 451004 PREDNISONE Inactive ZITHROMAX Z-RUBEN 250 MG TABS 2 today, then 1 daily for 4 days 2016 ZITHROMAX Z-RUBEN 250 MG TABS 5044492 AZITHROMYCIN Inactive Vital Signs Date Name Value [...] Panel - Chemistry sodium, serum 133 mmol/L 478-900 4062/08/24 potassium, serum 4.4 mmol/L 3.5-5.2 chloride, serum 95 mmol/L 98-107 carbon dioxide, venous blood 33.0 mmol/L 21.0-32.0 blood glucose 107 mg/dL 65-110 calcium, serum 8.8 mg/dL 8.5-10.1 urea nitrogen, blood 12 mg/dL 7-18 creatinine, serum 0.69 mg/dL 0.55-1.30 Lab Report: CBC, Basic Metabolic Panel - Chemistry sodium, serum 132 mmol/L 653-302 1590/10/12 potassium, serum 4.7 mmol/L 3.5-5.2 chloride, serum [...] CBC - Chemistry sodium, serum 136 mmol/L 238-568 3432/11/01 carbon dioxide, venous blood 32.1 mmol/L 21.0-32.0 [...] PANEL - Chemistry cholesterol, serum 169 mg/dL 811-538 2039/05/09 HDL cholesterol, serum 54 mg/dL > OR=46 [...] mg/dL Encounters Code Encounter Date Provider Facility CPT-96648 Level 4 Est. Patient 07:23:02 CDT Gareth Cancino MD [facility] CPT-45688 Level 3 Est. Patient 09:05:25 SENIOR MARKETING ENGINEER Mary Shah APRN [facility] CPT-20133 Level 3 Est. Patient 20:53:25 SENIOR MARKETING ENGINEER Gareth Cancino MD [facility] CPT-65370 Level 3 Est. Patient 10:34:55 CDT Gareth Cancino MD [facility] CPT-35268 Level 4 Est. Patient 09:00:18 CDT Gareth Cancino MD [facility] CPT-61011 Level 3 Est. Patient 15:12:03 CDT Gareth Cancino MD [facility] CPT-04038 Level 3 Est. Patient 23:08:20 CDT Gareth Cancino MD [facility] CPT-98248 Level 4 Est. Patient 20:40:10 CDT Garteh Cancino MD [facility] CPT-05894 Level 4 Est. Patient 19:50:11 CDT Gareth Cancino MD [facility] CPT-31660 Level 3 Est. Patient 11:00:13 CDT Gareth Cancino MD [facility] CPT-91034 Level 4 Est. Patient 11:20:21 CDT Gareth Cancino MD [facility] CPT-57031 Level 4 Est. Patient 09:22:18 SENIOR MARKETING ENGINEER Gareth Cancino MD [facility] CPT-70078 Level 3 Est. Patient 09:48:04 CDT Gareth Cancino MD [facility] CPT-67909 Level 3 Est. Patient 10:13:16 CDT Gareth Cancino MD [facility] CPT-15341 Level 2 Est. Patient 18:36:56 CDT Gareth Cancino MD [facility] CPT-43680 Level 4 Est. Patient 13:50:53 CDT Gareth Cancino MD [facility] CPT-66108 Level 3 Est. Patient 14:58:33 SENIOR MARKETING ENGINEER Gareth Cancino MD [facility] CPT-33884 Level 4 Est. Patient 09:25:57 CDT Gareth Cancino MD [facility] CPT-67306 Level 3 Est. Patient 20:39:33 CDT Noman Edwards DO [facility] CPT-54866 Level 2 Est. Patient 13:17:39 CDT Gareth Cancino MD [facility] CPT-22997 Level 3 Est. Patient 13:37:20 CDT Gareth Cancino MD [facility] CPT-55646 Level 3 Est. Patient 18:09:08 CDT Gareth Cancino MD [facility] CPT-24142 Level 4 Est. Patient 09:59:07 CDT Gareth Cancino MD [facility] Procedures Code Procedure Name Date Entry Date Standard Description CPT-000 Give Appropriate Flu Vaccine 09:29:52 SENIOR MARKETING ENGINEER CPT-000 Give Appropriate Flu Vaccine 09:22:20 SENIOR MARKETING ENGINEER CPT-68598 TSH - LAB USE ONLY 08:11:40 SENIOR MARKETING ENGINEER CPT-70759 Free T4 - LAB USE ONLY 08:11:40 SENIOR MARKETING ENGINEER CPT-40223 Venipuncture Draw Fee 08:11:40 SENIOR MARKETING ENGINEER CPT-53667 UA w micro - LAB USE ONLY 14:26:22 SENIOR MARKETING ENGINEER CPT-G0438 Initial Annual Wellness Exam 20:53:25 SENIOR MARKETING ENGINEER CPT-G0009 Administration of Pneumococcal Vaccine 11:42:53 SENIOR MARKETING ENGINEER CPT-06498 Prevnar 13 Intramuscular Suspension 11:42:53 SENIOR MARKETING ENGINEER 01/07 CPT-04478 First Vx - Ix admin for Medicare patients 11:39:44 SENIOR MARKETING ENGINEER CPT-40225 Fluzone High-Dose Intramuscular Suspension 11:39:44 SENIOR MARKETING ENGINEER CPT-80722 Prevnar 13 Intramuscular Suspension 09:29:52 SENIOR MARKETING ENGINEER 01/07 CPT-15055 CMP - LAB USE ONLY 16:31:15 CDT CPT-89670 CBC - LAB USE ONLY 16:31:14 CDT CPT-78458 Venipuncture Draw Fee 16:31:14 CDT CPT-32323 BMP - LAB USE ONLY 14:37:27 CDT CPT-76501 CBC - LAB USE ONLY 14:37:27 CDT CPT-04458 Venipuncture Draw Fee 14:37:27 CDT CPT-TCMM Transitional Care Mgmt-Moderate 14:43:38 CDT CPT-00905 Venipuncture Draw Fee 10:33:47 CDT CPT-21210 BMP - LAB USE ONLY 10:33:46 CDT CPT-Cryo Cryotherapy 15:12:03 CDT CPT-86804 LS spine AP and Lat - XRAY USE ONLY 10:31:51 CDT 07/27 CPT-22782 Punch biopsy 1 lsn 20:40:09 CDT CPT-G0008 Administration of Influenza Virus Vaccine 10:04:48 SENIOR MARKETING ENGINEER CPT-93214 Fluzone High-Dose Intramuscular Suspension 10:04:48 SENIOR MARKETING ENGINEER CPT-72083 Ribs unilat w PA chst min 3V 10:45:40 CDT CPT-LR Lesion Removal 13:14:55 CDT CPT-Cryo Cryotherapy 13:14:55 CDT CPT-47447 Venipuncture Draw Fee 10:25:49 CDT CPT-77793 Administration single or combination vaccine inc oral 13 :22:14 SENIOR MARKETING ENGINEER CPT-70371 Influenza High Dose age 65+ 13:22:14 SENIOR MARKETING ENGINEER
--- OUTSIDE RECORDS SUMMARY | 2016-12-06 08:44 | XMS REPORT | Clinical Summary ---
Author Author Admin, HILARIA Organization [facility] Address Unknown Phone Unavailable Allergies, Adverse [...] daily for high blood pressure 10/14 LISINOPRIL 83981669064 Active Gareth Cancino MD Active BACTROBAN 2 % CREAM Apply to affected area BID MUPIROCIN CALCIUM 02768809958 Active Gareth Cancino MD Active BACTRIM DS 800-160 MG TAB 1 tab by mouth twice daily TRIMETHOPRIM-SULFAMETHOXAZOLE 84625118569 No Longer Active Gareth Cancino MD Active METOPROLOL SUCCINATE ER 100 MG [id number] 1 pill by mouth daily, for blood pressure METOPROLOL SUCCINATE 76562037292 Active Gareth Cancino MD Active KEFLEX 500 MG CAP 1 po TID x 10 days CEPHALEXIN 07220783551 No Longer Active Jillina Frazell FRANCINE Active CLOBETASOL PROPIONATE 0.05 % CREA apply to hand rash bid CLOBETASOL PROPIONATE 95611282332 Active Gareth Cancino MD Active WELLBUTRIN SR 150 MG ORAL [id number] take 1 tab po BID BUPROPION HCL 87932549035 Active Gareth Cancino MD Active METOPROLOL SUCCINATE 50 MG TB24 1 tablet by mouth daily METOPROLOL SUCCINATE 67277564271 No Longer Active Gareth Cancino MD Active OMEPRAZOLE 20 MG TBEC Take one by mouth daily OMEPRAZOLE 73654793516 No Longer Active Gareth Cancino MD Active OMEPRAZOLE 40 MG CPDR 1 tab po qday for acid reflux. OMEPRAZOLE 76806039405 Active Mary Shah APRN Active LEVAQUIN 500 MG TAB 1 tablet by mouth daily LEVOFLOXACIN 60023078946 No Longer Active Gareth Cancino MD Active ALEVE 220 MG TAB 2 tab po qd NAPROXEN SODIUM 30364072857 Active Gareth Cancino MD Active ASPIRIN 81 MG CHEW TAB 1 tablet by mouth daily ASPIRIN 54163337606 Active Gareth Cancino MD Active VENTOLIN HFA 108 (90 BASE) MCG/ACT AERS 1-2 puffs four times a day PRN shortness of breath ALBUTEROL SULFATE 49532527123 Active Mary Pablo IN FILE OPERATOR Active CENTRUM SILVER TABS 1 TAB PO DAILY MULTIPLE VITAMINS-MINERALS 37855703162 Active Gareth Cancino MD Active VITAMIN B12 100 MCG TABS 1 TAB PO DAILY CYANOCOBALAMIN 06029270972 Active Gareth Cancino MD Active CIPRO 500 MG TABS 1 TAB PO BID CIPROFLOXACIN HCL 36259410132 No Longer Active Gareth Cancino MD Active BACTRIM DS 800-160 MG TAB 1 tab by mouth twice daily TRIMETHOPRIM-SULFAMETHOXAZOLE 70771211823 No Longer Active Gareth Cancino MD Active PREDNISONE 20 MG TAB 1 tab po BID for 3 days, then 1 tab po qday for 3 days PREDNISONE 33656951760 No Longer Active Gareth Cancino MD Active FOLIC ACID 800 MCG TABS Take one by mouth daily FOLIC ACID 52650524901 No Longer Active Gareth Cancino MD Active VITAMIN B-6 250 MG TABS Take one by mouth daily PYRIDOXINE HCL 39015141252 No Longer Active Gareth Cancino MD Active B-12 1000 MCG CAPS Take one by mouth daily CYANOCOBALAMIN 71446423468 No Longer Active Gareth Cancino MD Active DOXYCYCLINE HYCLATE 100 MG CAP 1 cap by mouth twice daily DOXYCYCLINE HYCLATE 93722632181 No Longer Active Gareth Cancino MD Active PREDNISONE 20 MG TAB 1 po bid 3 days, then 1 po q day 3 days 2011 PREDNISONE 20331784875 No Longer Active Gareth Cancino MD Active CHANTIX STARTING MONTH RUBEN 0.5 MG X 11 & 1 MG X 42 TABS 0.5mg daily for 3 days , then 0.5mg BID for 4 days, then 1mg BID VARENICLINE TARTRATE 39023905874 No Longer Active Gareth Cancino MD Active ALPRAZOLAM 0.25 MG TAB 1/2 to 1 tablet by mouth qhs prn ALPRAZOLAM 33965265355 Active Gareth Cancino MD Active SIMVASTATIN 40 MG TABS Take one by mouth daily SIMVASTATIN 93187668425 Active Gareth Cancino MD Active TRIAMTERENE-HCTZ 37.5-25 MG CAPS Take one by mouth daily TRIAMTERENE- HCTZ 78794089395 Active Gareth Cancino MD Active CHANTIX STARTING [...] 3 days 2011 PREDNISONE 20 MG TAB 184271 PREDNISONE Inactive DOXYCYCLINE HYCLATE 100 MG CAP 1 cap by mouth twice daily DOXYCYCLINE HYCLATE 100 MG CAP 2637362 DOXYCYCLINE HYCLATE Inactive B-12 1000 MCG CAPS Take one by mouth daily B-12 1000 MCG CAPS CYANOCOBALAMIN Inactive VITAMIN B-6 250 MG TABS Take one by mouth daily VITAMIN B-6 250 MG TABS PYRIDOXINE HCL Inactive FOLIC ACID 800 MCG TABS Take one by mouth daily FOLIC ACID 800 MCG TABS 268065 FOLIC ACID Inactive CIPRO 500 MG TABS 1 TAB PO BID CIPRO 500 MG TABS 597307 CIPROFLOXACIN HCL Inactive OMEPRAZOLE 20 MG TBEC Take one by mouth daily OMEPRAZOLE 20 MG TBEC 691271 OMEPRAZOLE Inactive METOPROLOL SUCCINATE 50 MG TB24 1 tablet by mouth daily METOPROLOL SUCCINATE 50 MG TB24 METOPROLOL SUCCINATE Inactive PREDNISONE 20 MG TAB 1 tab po BID for 3 days, then 1 tab po qday for 3 days PREDNISONE 20 MG TAB 046237 PREDNISONE Inactive BACTRIM DS 800-160 MG TAB 1 tab by mouth twice daily BACTRIM DS 800-160 MG TAB 401745 TRIMETHOPRIM-SULFAMETHOXAZOLE Inactive LEVAQUIN 500 MG TAB 1 tablet by mouth daily LEVAQUIN 500 MG TAB 521911 LEVOFLOXACIN Inactive KEFLEX 500 MG CAP 1 po TID x 10 days KEFLEX 500 MG CAP 136732 CEPHALEXIN Inactive BACTRIM DS 800-160 MG TAB 1 tab by mouth twice daily BACTRIM DS 800-160 MG TAB 761780 TRIMETHOPRIM-SULFAMETHOXAZOLE Inactive Vital Signs Date Name Value [...] ... - Chemistry cholesterol, serum 195 mg/dL 265-143 1005/12/02 triglyceride, serum, fasting 74 mg/dL 30-200 HDL cholesterol, serum 52 mg/dL 32-96 LDL cholesterol, serum 128 mg/dL 0-130 sodium, serum 134 mmol/L 582-657 9874/12/02 carbon dioxide, venous blood 30.3 mmol/L 21.0-32.0 [...] Negative Encounters Code Encounter Date Provider Facility CPT-74758 Level 4 Est. Patient 20:40:10 CDT Gareth Cancino MD [facility] CPT-97015 Level 4 Est. Patient 19:50:11 CDT Gareth Cancino MD [facility] CPT-67617 Level 3 Est. Patient 11:00:13 CDT Gareth Cancino MD [facility] CPT-75374 Level 4 Est. Patient 11:20:21 CDT Gareth Cancino MD [facility] CPT-27053 Level 4 Est. Patient 09:22:18 HARNESS REPAIRER Gareth Cancino MD [facility] CPT-98504 Level 3 Est. Patient 09:48:04 CDT Gareth Cancino MD [facility] CPT-10577 Level 3 Est. Patient 10:13:16 CDT Gareth Cancino MD [facility] CPT-76413 Level 2 Est. Patient 18:36:56 CDT Gareth Cancino MD [facility] CPT-10524 Level 4 Est. Patient 13:50:53 CDT Gareth Cancino MD [facility] CPT-03359 Level 3 Est. Patient 14:58:33 HARNESS REPAIRER Gareth Cancino MD [facility] CPT-03882 Level 4 Est. Patient 09:25:57 CDT Gareth Cancino MD [facility] CPT-28292 Level 3 Est. Patient 20:39:33 CDT Noman Edwards DO [facility] CPT-88831 Level 2 Est. Patient 13:17:39 CDT Gareth Cancino MD [facility] CPT-22769 Level 3 Est. Patient 13:37:20 CDT Gareth Cancino MD [facility] CPT-91051 Level 3 Est. Patient 18:09:08 CDT Gareth Cancino MD [facility] CPT-34655 Level 4 Est. Patient 09:59:07 CDT Gareth Cancino MD [facility] Procedures Code Procedure Name Date Entry Date Standard Description CPT-27352 Punch biopsy 1 lsn 20:40:09 CDT CPT-G0008 Administration of Influenza Virus Vaccine 10:04:48 HARNESS REPAIRER CPT-79802 Fluzone High-Dose Intramuscular Suspension 10:04:48 HARNESS REPAIRER CPT-61890 Ribs unilat w PA chst min 3V 10:45:40 CDT CPT-LR Lesion Removal 13:14:55 CDT CPT-Cryo Cryotherapy 13:14:55 CDT CPT-34316 Venipuncture Draw Fee 10:25:49 CDT CPT-44423 Administration single or combination vaccine inc oral 13 :22:14 HARNESS REPAIRER CPT-22275 Influenza High Dose age 65+ 13:22:14 HARNESS REPAIRER
--- OUTSIDE RECORDS SUMMARY | 2016-12-06 08:45 | XMS REPORT | Clinical Summary ---
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 Urinary frequency Actinic keratosis 702.0 Active Gareth [...] MG ORAL TABS 1 tab daily AZITHROMYCIN 80931113400 No Longer Active Gareth Cancino MD Active ZITHROMAX 250 MG TAB 2 po today, then 1 po q days 2-5 AZITHROMYCIN 53879984428 No Longer Active Tangela Forte Active IPRATROPIUM-ALBUTEROL 0.5-2.5 (3) MG/3ML INH SOLN nebulize 1 vial every 6hrs prn shortness of breath IPRATROPIUM-ALBUTEROL 36657501748 Active Gareth Cancino MD Active FENTANYL 25 MCG/HR PT72 Apply to clean, dry skin and change every 72 hours FENTANYL 34399283293 Active Gareth Cancino MD Active WELLBUTRIN SR 150 MG ORAL [id number] take 1 tab po BID BUPROPION HCL 27253479056 No Longer Active Gareth Cancino MD Active ZOFRAN 4 MG ORAL TABS 1 by mouth every 6 hours prn nausea ONDANSETRON HCL 42847619252 Active Tangela Forte Active TRAMADOL HCL 50 MG TABS 1 po tid PRN TRAMADOL HCL 78887568750 Active Gareth Cancino MD Active HYDROCODONE-ACETAMINOPHEN 5-325 MG TABS 1 tab by mouth every 6 hours as needed for bck pain HYDROCODONE-ACETAMINOPHEN 23190366789 Active Gareth Cancino MD Active ALPRAZOLAM 0.25 MG TAB 1/2 to 1 tablet by mouth qhs prn ALPRAZOLAM 22168533310 No Longer Active Gareth Cancino MD Active CLOBETASOL PROPIONATE 0.05 % CREA apply to hand rash bid CLOBETASOL PROPIONATE 84415657283 No Longer Active Gareth Cancino MD Active BACTROBAN 2 % CREAM Apply to affected area BID MUPIROCIN CALCIUM 12964303807 No Longer Active Gareth Cancino MD Active LISINOPRIL 20 MG TABS 1 tablet by mouth daily for high blood pressure 10/14 LISINOPRIL 57382728138 Active Gareth Cancino MD Active BACTRIM DS 800-160 MG TAB 1 tab by mouth twice daily TRIMETHOPRIM-SULFAMETHOXAZOLE 39730395988 No Longer Active Gareth Cancino MD Active METOPROLOL SUCCINATE ER 100 MG [id number] 1 pill by mouth daily, for blood pressure METOPROLOL SUCCINATE 56477790570 Active Gareth Cancino MD Active KEFLEX 500 MG CAP 1 po TID x 10 days CEPHALEXIN 30224618906 No Longer Active Blanca Castillo APRN Active METOPROLOL SUCCINATE 50 MG TB24 1 tablet by mouth daily METOPROLOL SUCCINATE 88224640046 No Longer Active Gareth Cnacino MD Active OMEPRAZOLE 20 MG TBEC Take one by mouth daily OMEPRAZOLE 63754106576 No Longer Active Gareth Cancino MD Active OMEPRAZOLE 40 MG CPDR 1 tab po qday for acid reflux. OMEPRAZOLE 16352580814 Active Mary Shah APRN Active LEVAQUIN 500 MG TAB 1 tablet by mouth daily LEVOFLOXACIN 12401918090 No Longer Active Gareth Cancino MD Active ALEVE 220 MG TAB 2 tab po qd NAPROXEN SODIUM 98722054172 Active Gareth Cancino MD Active ASPIRIN 81 MG CHEW TAB 1 tablet by mouth daily ASPIRIN 36529142429 Active Gareth Cancino MD Active VENTOLIN HFA 108 (90 BASE) MCG/ACT AERS 1-2 puffs four times a day PRN shortness of breath ALBUTEROL SULFATE 12529840363 Active Mary Shah MALL MANAGER Active CENTRUM SILVER TABS 1 TAB PO DAILY MULTIPLE VITAMINS-MINERALS 13880746167 Active Gareth Cancino MD Active VITAMIN B12 100 MCG TABS 1 TAB PO DAILY CYANOCOBALAMIN 15728130212 Active Gareth Cancino MD Active CIPRO 500 MG TABS 1 TAB PO BID CIPROFLOXACIN HCL 38035504511 No Longer Active Gareth Cancino MD Active BACTRIM DS 800-160 MG TAB 1 tab by mouth twice daily TRIMETHOPRIM-SULFAMETHOXAZOLE 08582360687 No Longer Active Gareth Cancino MD Active PREDNISONE 20 MG TAB 1 tab po BID for 3 days, then 1 tab po qday for 3 days PREDNISONE 74608368596 No Longer Active Gareth Cancino MD Active FOLIC ACID 800 MCG TABS Take one by mouth daily FOLIC ACID 03639538938 No Longer Active Gareth Cancino MD Active VITAMIN B-6 250 MG TABS Take one by mouth daily PYRIDOXINE HCL 67544851570 No Longer Active Gareth Cancino MD Active B-12 1000 MCG CAPS Take one by mouth daily CYANOCOBALAMIN 23609192074 No Longer Active Gareth Cancino MD Active DOXYCYCLINE HYCLATE 100 MG CAP 1 cap by mouth twice daily DOXYCYCLINE HYCLATE 69105276478 No Longer Active Gareth Cancino MD Active PREDNISONE 20 MG TAB 1 po bid 3 days, then 1 po q day 3 days 2011 PREDNISONE 68189372618 No Longer Active Gareth Cancino MD Active CHANTIX STARTING MONTH RUBEN 0.5 MG X 11 & 1 MG X 42 TABS 0.5mg daily for 3 days , then 0.5mg BID for 4 days, then 1mg BID VARENICLINE TARTRATE 14166308569 No Longer Active Gareth Cancino MD Active SIMVASTATIN 40 MG TABS Take one by mouth daily SIMVASTATIN 29457381330 Active Gareth Cancino MD Active TRIAMTERENE-HCTZ 37.5-25 MG CAPS Take one by mouth daily TRIAMTERENE- HCTZ 21890233404 Active Gareth Cancino MD Active CHANTIX STARTING [...] 3 days 2011 PREDNISONE 20 MG TAB 317118 PREDNISONE Inactive DOXYCYCLINE HYCLATE 100 MG CAP 1 cap by mouth twice daily DOXYCYCLINE HYCLATE 100 MG CAP 2239546 DOXYCYCLINE HYCLATE Inactive B-12 1000 MCG CAPS Take one by mouth daily B-12 1000 MCG CAPS CYANOCOBALAMIN Inactive VITAMIN B-6 250 MG TABS Take one by mouth daily VITAMIN B-6 250 MG TABS PYRIDOXINE HCL Inactive FOLIC ACID 800 MCG TABS Take one by mouth daily FOLIC ACID 800 MCG TABS 263317 FOLIC ACID Inactive CIPRO 500 MG TABS 1 TAB PO BID CIPRO 500 MG TABS 891173 CIPROFLOXACIN HCL Inactive OMEPRAZOLE 20 MG TBEC Take one by mouth daily OMEPRAZOLE 20 MG TBEC 762014 OMEPRAZOLE Inactive METOPROLOL SUCCINATE 50 MG TB24 1 tablet by mouth daily METOPROLOL SUCCINATE 50 MG TB24 METOPROLOL SUCCINATE Inactive BACTROBAN 2 % CREAM Apply to affected area BID BACTROBAN 2 % CREAM 373224 MUPIROCIN CALCIUM Inactive CLOBETASOL PROPIONATE 0.05 % CREA apply to hand rash bid 2016/06/ 06 CLOBETASOL PROPIONATE 0.05 % CREA 684801 CLOBETASOL PROPIONATE Inactive ALPRAZOLAM 0.25 MG TAB 1/2 to 1 tablet by mouth qhs prn ALPRAZOLAM 0.25 MG TAB 212118 ALPRAZOLAM Inactive WELLBUTRIN SR 150 MG ORAL [id number] take 1 tab po BID WELLBUTRIN SR 150 MG ORAL [id number] BUPROPION HCL Inactive AZITHROMYCIN 250 MG ORAL TABS 1 tab daily AZITHROMYCIN 250 MG ORAL TABS 3941827 AZITHROMYCIN Inactive PREDNISONE 20 MG TAB 1 tab po BID for 3 days, then 1 tab po qday for 3 days PREDNISONE 20 MG TAB 379432 PREDNISONE Inactive BACTRIM DS 800-160 MG TAB 1 tab by mouth twice daily BACTRIM DS 800-160 MG TAB 393105 TRIMETHOPRIM-SULFAMETHOXAZOLE Inactive LEVAQUIN 500 MG TAB 1 tablet by mouth daily LEVAQUIN 500 MG TAB 345908 LEVOFLOXACIN Inactive KEFLEX 500 MG CAP 1 po TID x 10 days KEFLEX 500 MG CAP 607158 CEPHALEXIN Inactive BACTRIM DS 800-160 MG TAB 1 tab by mouth twice daily BACTRIM DS 800-160 MG TAB 237803 TRIMETHOPRIM-SULFAMETHOXAZOLE Inactive ZITHROMAX 250 MG TAB 2 po today, then 1 po q days 2-5 ZITHROMAX 250 MG TAB 1936158 AZITHROMYCIN Inactive Vital Signs Date Name Value [...] Panel - Chemistry sodium, serum 133 mmol/L 246-747 6695/08/24 potassium, serum 4.4 mmol/L 3.5-5.2 chloride, serum 95 mmol/L 98-107 carbon dioxide, venous blood 33.0 mmol/L 21.0-32.0 blood glucose 107 mg/dL 65-110 calcium, serum 8.8 mg/dL 8.5-10.1 urea nitrogen, blood 12 mg/dL 7-18 creatinine, serum 0.69 mg/dL 0.55-1.30 Lab Report: CBC, Basic Metabolic Panel - Chemistry sodium, serum 132 mmol/L 244-211 2334/10/12 potassium, serum 4.7 mmol/L 3.5-5.2 chloride, serum [...] CBC - Chemistry sodium, serum 136 mmol/L 614-175 5850/11/01 carbon dioxide, venous blood 32.1 mmol/L 21.0-32.0 [...] mg/g mg/g{creat} 0-29 cholesterol, serum 195 mg/dL 756-004 3965/12/02 triglyceride, serum, fasting 74 mg/dL 30-200 HDL cholesterol, serum 52 mg/dL 32-96 LDL cholesterol, serum 128 mg/dL 0-130 sodium, serum 134 mmol/L 106-829 4699/12/02 carbon dioxide, venous blood 30.3 mmol/L 21.0-32.0 [...] 5.0-8.5 Encounters Code Encounter Date Provider Facility CPT-73829 Level 3 Est. Patient 10:34:55 CDT Gareth Cancino MD [facility] CPT-03140 Level 4 Est. Patient 09:00:18 CDT Gareth Cancino MD [facility] CPT-47003 Level 3 Est. Patient 15:12:03 CDT Gareth Cancino MD [facility] CPT-81305 Level 3 Est. Patient 23:08:20 CDT Gareth Cancino MD [facility] CPT-02250 Level 4 Est. Patient 20:40:10 CDT Gareth Cancino MD [facility] CPT-84264 Level 4 Est. Patient 19:50:11 CDT Gareht Cancino MD [facility] CPT-25788 Level 3 Est. Patient 11:00:13 CDT Gareth Cancino MD [facility] CPT-97994 Level 4 Est. Patient 11:20:21 CDT Gareth Cancino MD [facility] CPT-81081 Level 4 Est. Patient 09:22:18 METABOLIC SPECIALIST Gareth Cancino MD [facility] CPT-14198 Level 3 Est. Patient 09:48:04 CDT Gareth Cancino MD [facility] CPT-25147 Level 3 Est. Patient 10:13:16 CDT Gareht Cancino MD [facility] CPT-30426 Level 2 Est. Patient 18:36:56 CDT Gareth Cancino MD [facility] CPT-91891 Level 4 Est. Patient 13:50:53 CDT Gareth Cancino MD [facility] CPT-47301 Level 3 Est. Patient 14:58:33 METABOLIC SPECIALIST Gareth Cancino MD [facility] CPT-00741 Level 4 Est. Patient 09:25:57 CDT Gareth Cancino MD [facility] CPT-67376 Level 3 Est. Patient 20:39:33 CDT Noman Edwards DO [facility] CPT-27114 Level 2 Est. Patient 13:17:39 CDT Gareth Cancino MD [facility] CPT-36742 Level 3 Est. Patient 13:37:20 CDT Gareth Cancino MD [facility] CPT-86331 Level 3 Est. Patient 18:09:08 CDT Gareth Cancino MD [facility] CPT-50694 Level 4 Est. Patient 09:59:07 CDT Gareth Cancino MD [facility] Procedures Code Procedure Name Date Entry Date Standard Description CPT-19663 CMP - LAB USE ONLY 16:31:15 CDT CPT-59669 CBC - LAB USE ONLY 16:31:14 CDT CPT-76521 Venipuncture Draw Fee 16:31:14 CDT CPT-42515 BMP - LAB USE ONLY 14:37:27 CDT CPT-13826 CBC - LAB USE ONLY 14:37:27 CDT CPT-35182 Venipuncture Draw Fee 14:37:27 CDT CPT-TCMM Transitional Care Mgmt-Moderate 14:43:38 CDT CPT-54064 Venipuncture Draw Fee 10:33:47 CDT CPT-41357 BMP - LAB USE ONLY 10:33:46 CDT CPT-Cryo Cryotherapy 15:12:03 CDT CPT-33452 LS spine AP and Lat - XRAY USE ONLY 10:31:51 CDT 07/27 CPT-09698 Punch biopsy 1 lsn 20:40:09 CDT CPT-G0008 Administration of Influenza Virus Vaccine 10:04:48 METABOLIC SPECIALIST CPT-16486 Fluzone High-Dose Intramuscular Suspension 10:04:48 METABOLIC SPECIALIST CPT-65649 Ribs unilat w PA chst min 3V 10:45:40 CDT CPT-LR Lesion Removal 13:14:55 CDT CPT-Cryo Cryotherapy 13:14:55 CDT CPT-06660 Venipuncture Draw Fee 10:25:49 CDT CPT-28912 Administration single or combination vaccine inc oral 13 :22:14 METABOLIC SPECIALIST CPT-31434 Influenza High Dose age 65+ 13:22:14 METABOLIC SPECIALIST
--- OUTSIDE RECORDS SUMMARY | 2016-12-06 08:46 | XMS REPORT | Clinical Summary ---
Author Author Admin, HILARIA Organization [employer] Address Unknown Phone Unavailable Allergies, Adverse [...] hours as needed for bck pain HYDROCODONE-ACETAMINOPHEN 80470536527 No Longer Active Gareth Cancino MD Active FENTANYL 12 MCG/HR PT72 Apply to clean, dry skin and change every 72 hours FENTANYL 22182201079 Active Gareth Cancino MD Active ALPRAZOLAM 0.25 MG TAB 1 tablet by mouth q hs prn ALPRAZOLAM 01777008228 Active Gareth Cancino MD Active AZITHROMYCIN 250 MG ORAL TABS 1 tab daily AZITHROMYCIN 79123855493 No Longer Active Gareth Cancino MD Active ZITHROMAX 250 MG TAB 2 po today, then 1 po q days 2-5 AZITHROMYCIN 57296733470 No Longer Active Tangela Forte Active IPRATROPIUM-ALBUTEROL 0.5-2.5 (3) MG/3ML INH SOLN nebulize 1 vial every 6hrs prn shortness of breath IPRATROPIUM-ALBUTEROL 82612862187 Active Gareth Cancino MD Active FENTANYL 25 MCG/HR PT72 Apply to clean, dry skin and change every 72 hours FENTANYL 79024564024 No Longer Active Gareth Cancino MD Active WELLBUTRIN SR 150 MG ORAL [id number] take 1 tab po BID BUPROPION HCL 92189690544 No Longer Active Gareth Cancino MD Active ZOFRAN 4 MG ORAL TABS 1 by mouth every 6 hours prn nausea ONDANSETRON HCL 47746488997 Active Tangela Forte Active TRAMADOL HCL 50 MG TABS 1 po tid PRN TRAMADOL HCL 59309479505 Active Gareth Cancino MD Active ALPRAZOLAM 0.25 MG TAB 1/2 to 1 tablet by mouth qhs prn ALPRAZOLAM 60066533289 No Longer Active Gareth Cancino MD Active CLOBETASOL PROPIONATE 0.05 % CREA apply to hand rash bid CLOBETASOL PROPIONATE 56060297718 No Longer Active Gareth Cancino MD Active BACTROBAN 2 % CREAM Apply to affected area BID MUPIROCIN CALCIUM 49543068982 No Longer Active Gareth Cancino MD Active LISINOPRIL 20 MG TABS 1 tablet by mouth daily for high blood pressure 10/14 LISINOPRIL 05188398656 Active Gareth Cancino MD Active BACTRIM DS 800-160 MG TAB 1 tab by mouth twice daily TRIMETHOPRIM-SULFAMETHOXAZOLE 34407279999 No Longer Active Gareth Cancino MD Active METOPROLOL SUCCINATE ER 100 MG [id number] 1 pill by mouth daily, for blood pressure METOPROLOL SUCCINATE 97514286883 Active Gareth Cancino MD Active KEFLEX 500 MG CAP 1 po TID x 10 days CEPHALEXIN 91247951191 No Longer Active Blanca Castillo APRN Active METOPROLOL SUCCINATE 50 MG TB24 1 tablet by mouth daily METOPROLOL SUCCINATE 42764809890 No Longer Active Gareth Cancino MD Active OMEPRAZOLE 20 MG TBEC Take one by mouth daily OMEPRAZOLE 33460342097 No Longer Active Gareth Cancino MD Active OMEPRAZOLE 40 MG CPDR 1 tab po qday for acid reflux. OMEPRAZOLE 21269663608 Active Mary Shah APRN Active LEVAQUIN 500 MG TAB 1 tablet by mouth daily LEVOFLOXACIN 11656392928 No Longer Active Gareth Cancino MD Active ALEVE 220 MG TAB 2 tab po qd NAPROXEN SODIUM 51074207067 Active Gareth Cancino MD Active ASPIRIN 81 MG CHEW TAB 1 tablet by mouth daily ASPIRIN 77855105288 Active Gareth Cancino MD Active VENTOLIN HFA 108 (90 BASE) MCG/ACT AERS 1-2 puffs four times a day PRN shortness of breath ALBUTEROL SULFATE 16811692621 Active Mary Shah APRN Active CENTRUM SILVER TABS 1 TAB PO DAILY MULTIPLE VITAMINS-MINERALS 61348849201 Active Gareth Cancino MD Active VITAMIN B12 100 MCG TABS 1 TAB PO DAILY CYANOCOBALAMIN 65339178631 Active Gareth Cancino MD Active CIPRO 500 MG TABS 1 TAB PO BID CIPROFLOXACIN HCL 89872816988 No Longer Active Gareth Cancino MD Active BACTRIM DS 800-160 MG TAB 1 tab by mouth twice daily TRIMETHOPRIM-SULFAMETHOXAZOLE 93567024254 No Longer Active Gareth Cancino MD Active PREDNISONE 20 MG TAB 1 tab po BID for 3 days, then 1 tab po qday for 3 days PREDNISONE 33067222210 No Longer Active Gareth Cancino MD Active FOLIC ACID 800 MCG TABS Take one by mouth daily FOLIC ACID 00131926934 No Longer Active Gareth Cancino MD Active VITAMIN B-6 250 MG TABS Take one by mouth daily PYRIDOXINE HCL 90836667156 No Longer Active Gareth Cancino MD Active B-12 1000 MCG CAPS Take one by mouth daily CYANOCOBALAMIN 06079086669 No Longer Active Gareth Cancino MD Active DOXYCYCLINE HYCLATE 100 MG CAP 1 cap by mouth twice daily DOXYCYCLINE HYCLATE 63809196536 No Longer Active Gareth Cancino MD Active PREDNISONE 20 MG TAB 1 po bid 3 days, then 1 po q day 3 days 2011 PREDNISONE 67732865652 No Longer Active Gareth Cancino MD Active CHANTIX STARTING MONTH RUBEN 0.5 MG X 11 & 1 MG X 42 TABS 0.5mg daily for 3 days , then 0.5mg BID for 4 days, then 1mg BID VARENICLINE TARTRATE 42483649624 No Longer Active Gareth Cancino MD Active SIMVASTATIN 40 MG TABS Take one by mouth daily SIMVASTATIN 10095241100 Active Gareth Cancino MD Active TRIAMTERENE-HCTZ 37.5-25 MG CAPS Take one by mouth daily TRIAMTERENE- HCTZ 21773346583 Active Gareth Cnacino MD Active CHANTIX STARTING [...] 3 days 2011 PREDNISONE 20 MG TAB 036763 PREDNISONE Inactive DOXYCYCLINE HYCLATE 100 MG CAP 1 cap by mouth twice daily DOXYCYCLINE HYCLATE 100 MG CAP 1081863 DOXYCYCLINE HYCLATE Inactive B-12 1000 MCG CAPS Take one by mouth daily B-12 1000 MCG CAPS CYANOCOBALAMIN Inactive VITAMIN B-6 250 MG TABS Take one by mouth daily VITAMIN B-6 250 MG TABS PYRIDOXINE HCL Inactive FOLIC ACID 800 MCG TABS Take one by mouth daily FOLIC ACID 800 MCG TABS 432802 FOLIC ACID Inactive CIPRO 500 MG TABS 1 TAB PO BID CIPRO 500 MG TABS 272888 CIPROFLOXACIN HCL Inactive OMEPRAZOLE 20 MG TBEC Take one by mouth daily OMEPRAZOLE 20 MG TBEC 219427 OMEPRAZOLE Inactive METOPROLOL SUCCINATE 50 MG TB24 1 tablet by mouth daily METOPROLOL SUCCINATE 50 MG TB24 METOPROLOL SUCCINATE Inactive BACTROBAN 2 % CREAM Apply to affected area BID BACTROBAN 2 % CREAM 393199 MUPIROCIN CALCIUM Inactive CLOBETASOL PROPIONATE 0.05 % CREA apply to hand rash bid CLOBETASOL PROPIONATE 0.05 % CREA 415387 CLOBETASOL PROPIONATE Inactive ALPRAZOLAM 0.25 MG TAB 1/2 to 1 tablet by mouth qhs prn ALPRAZOLAM 0.25 MG TAB 402532 ALPRAZOLAM Inactive WELLBUTRIN SR 150 MG ORAL [id number] take 1 tab po BID WELLBUTRIN SR 150 MG ORAL [id number] BUPROPION HCL Inactive AZITHROMYCIN 250 MG ORAL TABS 1 tab daily AZITHROMYCIN 250 MG ORAL TABS 0128466 AZITHROMYCIN Inactive HYDROCODONE-ACETAMINOPHEN 5-325 MG TABS 1 tab by mouth every 6 hours as needed for bck pain HYDROCODONE-ACETAMINOPHEN 5-325 MG TABS 120594 HYDROCODONE-ACETAMINOPHEN Inactive PREDNISONE 20 MG TAB 1 tab po BID for 3 days, then 1 tab po qday for 3 days PREDNISONE 20 MG TAB 438052 PREDNISONE Inactive BACTRIM DS 800-160 MG TAB 1 tab by mouth twice daily BACTRIM DS 800-160 MG TAB 167371 TRIMETHOPRIM-SULFAMETHOXAZOLE Inactive LEVAQUIN 500 MG TAB 1 tablet by mouth daily LEVAQUIN 500 MG TAB 531745 LEVOFLOXACIN Inactive KEFLEX 500 MG CAP 1 po TID x 10 days KEFLEX 500 MG CAP 815442 CEPHALEXIN Inactive BACTRIM DS 800-160 MG TAB 1 tab by mouth twice daily BACTRIM DS 800-160 MG TAB 544286 TRIMETHOPRIM-SULFAMETHOXAZOLE Inactive FENTANYL 25 MCG/HR PT72 Apply to clean, dry skin and change every 72 hours FENTANYL 25 MCG/HR PT72 820622 FENTANYL Inactive ZITHROMAX 250 MG TAB 2 po today, then 1 po q days 2-5 ZITHROMAX 250 MG TAB 2657164 AZITHROMYCIN Inactive Vital Signs Date Name Value [...] Panel - Chemistry sodium, serum 133 mmol/L 084-070 0123/08/24 potassium, serum 4.4 mmol/L 3.5-5.2 chloride, serum 95 mmol/L 98-107 carbon dioxide, venous blood 33.0 mmol/L 21.0-32.0 blood glucose 107 mg/dL 65-110 calcium, serum 8.8 mg/dL 8.5-10.1 urea nitrogen, blood 12 mg/dL 7-18 creatinine, serum 0.69 mg/dL 0.55-1.30 Lab Report: CBC, Basic Metabolic Panel - Chemistry sodium, serum 132 mmol/L 405-146 8340/10/12 potassium, serum 4.7 mmol/L 3.5-5.2 chloride, serum [...] CBC - Chemistry sodium, serum 136 mmol/L 227-328 5382/11/01 carbon dioxide, venous blood 32.1 mmol/L 21.0-32.0 [...] 5.0-8.5 Encounters Code Encounter Date Provider Facility CPT-63398 Level 3 Est. Patient 20:53:25 SYSTEMS SOFTWARE ENGINEER Gareth Cancino MD [facility] CPT-87968 Level 3 Est. Patient 10:34:55 CDT Gareth Cancino MD [facility] CPT-09131 Level 4 Est. Patient 09:00:18 CDT Gareth Cancino MD [facility] CPT-98183 Level 3 Est. Patient 15:12:03 CDT Gareth Cancino MD [facility] CPT-09137 Level 3 Est. Patient 23:08:20 CDT Gareth Cancino MD [facility] CPT-29368 Level 4 Est. Patient 20:40:10 CDT Gareth Cancino MD [facility] CPT-97974 Level 4 Est. Patient 19:50:11 CDT Gareth Cancino MD [facility] CPT-24209 Level 3 Est. Patient 11:00:13 CDT Gareth Cancino MD [facility] CPT-07616 Level 4 Est. Patient 11:20:21 CDT Gareth Cancino MD [facility] CPT-83211 Level 4 Est. Patient 09:22:18 SYSTEMS SOFTWARE ENGINEER Gareth Cancino MD [facility] CPT-29723 Level 3 Est. Patient 09:48:04 CDT Gareth Cancino MD [facility] CPT-13131 Level 3 Est. Patient 10:13:16 CDT Gareth Cancino MD [facility] CPT-30750 Level 2 Est. Patient 18:36:56 CDT Gareth Cancino MD [facility] CPT-59751 Level 4 Est. Patient 13:50:53 CDT Gareth Cancino MD [facility] CPT-39496 Level 3 Est. Patient 14:58:33 SYSTEMS SOFTWARE ENGINEER Gareth Cancino MD [facility] CPT-52786 Level 4 Est. Patient 09:25:57 CDT Gareth Cnacino MD [facility] CPT-48369 Level 3 Est. Patient 20:39:33 CDT Noman Edwards DO [facility] CPT-48138 Level 2 Est. Patient 13:17:39 CDT Gareth Cancino MD [facility] CPT-34310 Level 3 Est. Patient 13:37:20 CDT Gareth Cancino MD [facility] CPT-13943 Level 3 Est. Patient 18:09:08 CDT Gareth Cancino MD [facility] CPT-01929 Level 4 Est. Patient 09:59:07 CDT Gareth Cancino MD [facility] Procedures Code Procedure Name Date Entry Date Standard Description CPT-33402 UA w micro - LAB USE ONLY 14:26:22 SYSTEMS SOFTWARE ENGINEER CPT-G0438 Initial Annual Wellness Exam 20:53:25 SYSTEMS SOFTWARE ENGINEER CPT-G0009 Administration of Pneumococcal Vaccine 11:42:53 SYSTEMS SOFTWARE ENGINEER CPT-71680 Prevnar 13 Intramuscular Suspension 11:42:53 SYSTEMS SOFTWARE ENGINEER 01/07 CPT-23900 First Vx - Ix admin for Medicare patients 11:39:44 SYSTEMS SOFTWARE ENGINEER CPT-90340 Fluzone High-Dose Intramuscular Suspension 11:39:44 SYSTEMS SOFTWARE ENGINEER CPT-27439 Prevnar 13 Intramuscular Suspension 09:29:52 SYSTEMS SOFTWARE ENGINEER 01/07 CPT-80977 CMP - LAB USE ONLY 16:31:15 CDT CPT-47897 CBC - LAB USE ONLY 16:31:14 CDT CPT-22034 Venipuncture Draw Fee 16:31:14 CDT CPT-52856 BMP - LAB USE ONLY 14:37:27 CDT CPT-26562 CBC - LAB USE ONLY 14:37:27 CDT CPT-63598 Venipuncture Draw Fee 14:37:27 CDT CPT-TCMM Transitional Care Mgmt-Moderate 14:43:38 CDT CPT-40697 Venipuncture Draw Fee 10:33:47 CDT CPT-47233 BMP - LAB USE ONLY 10:33:46 CDT CPT-Cryo Cryotherapy 15:12:03 CDT CPT-93377 LS spine AP and Lat - XRAY USE ONLY 10:31:51 CDT 07/27 CPT-15948 Punch biopsy 1 lsn 20:40:09 CDT CPT-G0008 Administration of Influenza Virus Vaccine 10:04:48 SYSTEMS SOFTWARE ENGINEER CPT-33905 Fluzone High-Dose Intramuscular Suspension 10:04:48 SYSTEMS SOFTWARE ENGINEER CPT-46995 Ribs unilat w PA chst min 3V 10:45:40 CDT CPT-LR Lesion Removal 13:14:55 CDT CPT-Cryo Cryotherapy 13:14:55 CDT CPT-69234 Venipuncture Draw Fee 10:25:49 CDT CPT-20287 Administration single or combination vaccine inc oral 13 :22:14 SYSTEMS SOFTWARE ENGINEER CPT-10657 Influenza High Dose age 65+ 13:22:14 SYSTEMS SOFTWARE ENGINEER
--- OUTSIDE RECORDS SUMMARY | 2016-12-06 08:47 | XMS REPORT | Clinical Summary ---
Author Author Admin, HILARIA Organization [employer] Address Unknown Phone Unavailable Allergies, Adverse Reactions, [...] 1/2 tab daily for 4 days PREDNISONE 16939750503 Active Mary Pablo [employer] [employer] Active LEVAQUIN 500 MG TAB 1 tablet by mouth daily for 7 days LEVOFLOXACIN 78431832791 Active Mary Shah APRN Active AZITHROMYCIN 250 MG TABS 2 po qd x 1 day, then 1 po qd x 4 days AZITHROMYCIN 08341612162 No Longer Active Danuta Modi Active AZITHROMYCIN 250 MG TABS 2 po qd x 1 day, then 1 po qd x 4 days AZITHROMYCIN 04123634776 No Longer Active Tangela Forte Active HYDROCODONE-ACETAMINOPHEN 5-325 MG TABS 1 tab by mouth every 6 hours as needed for bck pain HYDROCODONE-ACETAMINOPHEN 62724185814 No Longer Active Gareth Cancino MD Active FENTANYL 12 MCG/HR PT72 Apply to clean, dry skin and change every 72 hours FENTANYL 41787790729 Active Gareth Cancino MD Active ALPRAZOLAM 0.25 MG TAB 1 tablet by mouth q hs prn ALPRAZOLAM 04247945095 Active Gareth Cancino MD Active AZITHROMYCIN 250 MG ORAL TABS 1 tab daily AZITHROMYCIN 94668315809 No Longer Active Gareth Cancino MD Active ZITHROMAX 250 MG TAB 2 po today, then 1 po q days 2-5 AZITHROMYCIN 89943695082 No Longer Active Tangela Forte Active IPRATROPIUM-ALBUTEROL 0.5-2.5 (3) MG/3ML INH SOLN nebulize 1 vial every 6hrs prn shortness of breath IPRATROPIUM-ALBUTEROL 79478853425 Active Gareth Cancino MD Active FENTANYL 25 MCG/HR PT72 Apply to clean, dry skin and change every 72 hours FENTANYL 65235227596 No Longer Active Gareth Cancino MD Active WELLBUTRIN SR 150 MG ORAL NQ23O-SVC take 1 tab po BID BUPROPION HCL 70309844482 No Longer Active Gareth Cancino MD Active ZOFRAN 4 MG ORAL TABS 1 by mouth every 6 hours prn nausea ONDANSETRON HCL 49990620764 Active Tangela Forte Active TRAMADOL HCL 50 MG TABS 1 po tid PRN TRAMADOL HCL 83006077156 Active Gareth Cancino MD Active ALPRAZOLAM 0.25 MG TAB 1/2 to 1 tablet by mouth qhs prn ALPRAZOLAM 51120832481 No Longer Active Gareth Cancino MD Active CLOBETASOL PROPIONATE 0.05 % CREA apply to hand rash bid CLOBETASOL PROPIONATE 98609629426 No Longer Active Gareth Cancino MD Active BACTROBAN 2 % CREAM Apply to affected area BID MUPIROCIN CALCIUM 07160004234 No Longer Active Gareth Cancino MD Active LISINOPRIL 20 MG TABS 1 tablet by mouth daily for high blood pressure 10/14 LISINOPRIL 51431523167 Active Gareth Cancino MD Active BACTRIM DS 800-160 MG TAB 1 tab by mouth twice daily TRIMETHOPRIM-SULFAMETHOXAZOLE 53493582259 No Longer Active Gareth Cancino MD Active METOPROLOL SUCCINATE ER 100 MG [id number] 1 pill by mouth daily, for blood pressure METOPROLOL SUCCINATE 92938805498 Active Gareth Cancino MD Active KEFLEX 500 MG CAP 1 po TID x 10 days CEPHALEXIN 63618587450 No Longer Active Blanca Castillo APRN Active METOPROLOL SUCCINATE 50 MG TB24 1 tablet by mouth daily METOPROLOL SUCCINATE 78608730126 No Longer Active Gareth Cancino MD Active OMEPRAZOLE 20 MG TBEC Take one by mouth daily OMEPRAZOLE 99347049921 No Longer Active Gareth Cancino MD Active OMEPRAZOLE 40 MG CPDR 1 tab po qday for acid reflux. OMEPRAZOLE 03257272758 Active Mary Shah APRN Active LEVAQUIN 500 MG TAB 1 tablet by mouth daily LEVOFLOXACIN 57199679271 No Longer Active Gareth Cancino MD Active ALEVE 220 MG TAB 2 tab po qd NAPROXEN SODIUM 96195669491 Active Gareth Cancino MD Active ASPIRIN 81 MG CHEW TAB 1 tablet by mouth daily ASPIRIN 75867358723 Active Gareth Cancino MD Active VENTOLIN HFA 108 (90 BASE) MCG/ACT AERS 1-2 puffs four times a day PRN shortness of breath ALBUTEROL SULFATE 81591001189 Active Mary Shah [facility] Active CENTRUM SILVER TABS 1 TAB PO DAILY MULTIPLE VITAMINS-MINERALS 54292921826 Active Gareth Cancino MD Active VITAMIN B12 100 MCG TABS 1 TAB PO DAILY CYANOCOBALAMIN 00692708636 Active Gareth Cancino MD Active CIPRO 500 MG TABS 1 TAB PO BID CIPROFLOXACIN HCL 83214243330 No Longer Active Gareth Cancino MD Active BACTRIM DS 800-160 MG TAB 1 tab by mouth twice daily TRIMETHOPRIM-SULFAMETHOXAZOLE 07552656626 No Longer Active Gareth Cancino MD Active PREDNISONE 20 MG TAB 1 tab po BID for 3 days, then 1 tab po qday for 3 days PREDNISONE 11729543485 No Longer Active Gareth Cancino MD Active FOLIC ACID 800 MCG TABS Take one by mouth daily FOLIC ACID 01781540852 No Longer Active Gareth Cancino MD Active VITAMIN B-6 250 MG TABS Take one by mouth daily PYRIDOXINE HCL 96286645113 No Longer Active Gareth Cancino MD Active B-12 1000 MCG CAPS Take one by mouth daily CYANOCOBALAMIN 18096191440 No Longer Active Gareth Cancino MD Active DOXYCYCLINE HYCLATE 100 MG CAP 1 cap by mouth twice daily DOXYCYCLINE HYCLATE 52852937046 No Longer Active Gareth Cancino MD Active PREDNISONE 20 MG TAB 1 po bid 3 days, then 1 po q day 3 days 2011 PREDNISONE 75194378495 No Longer Active Gareth Cancino MD Active CHANTIX STARTING MONTH RUBEN 0.5 MG X 11 & 1 MG X 42 TABS 0.5mg daily for 3 days , then 0.5mg BID for 4 days, then 1mg BID VARENICLINE TARTRATE 94767356700 No Longer Active Gareth Cancino MD Active SIMVASTATIN 40 MG TABS Take one by mouth daily SIMVASTATIN 92925256071 Active Gareth Canicno MD Active TRIAMTERENE-HCTZ 37.5-25 MG CAPS Take one by mouth daily TRIAMTERENE- HCTZ 55354601003 Active Gareth Cancino MD Active CHANTIX STARTING [...] 3 days 2011 PREDNISONE 20 MG TAB 409620 PREDNISONE Inactive DOXYCYCLINE HYCLATE 100 MG CAP 1 cap by mouth twice daily DOXYCYCLINE HYCLATE 100 MG CAP 9158978 DOXYCYCLINE HYCLATE Inactive B-12 1000 MCG CAPS Take one by mouth daily B-12 1000 MCG CAPS CYANOCOBALAMIN Inactive VITAMIN B-6 250 MG TABS Take one by mouth daily VITAMIN B-6 250 MG TABS PYRIDOXINE HCL Inactive FOLIC ACID 800 MCG TABS Take one by mouth daily FOLIC ACID 800 MCG TABS 320529 FOLIC ACID Inactive CIPRO 500 MG TABS 1 TAB PO BID CIPRO 500 MG TABS 554281 CIPROFLOXACIN HCL Inactive OMEPRAZOLE 20 MG TBEC Take one by mouth daily OMEPRAZOLE 20 MG TBEC 903206 OMEPRAZOLE Inactive METOPROLOL SUCCINATE 50 MG TB24 1 tablet by mouth daily METOPROLOL SUCCINATE 50 MG TB24 METOPROLOL SUCCINATE Inactive BACTROBAN 2 % CREAM Apply to affected area BID BACTROBAN 2 % CREAM 076697 MUPIROCIN CALCIUM Inactive CLOBETASOL PROPIONATE 0.05 % CREA apply to hand rash bid CLOBETASOL PROPIONATE 0.05 % CREA 583191 CLOBETASOL PROPIONATE Inactive ALPRAZOLAM 0.25 MG TAB 1/2 to 1 tablet by mouth qhs prn ALPRAZOLAM 0.25 MG TAB 619440 ALPRAZOLAM Inactive WELLBUTRIN SR 150 MG ORAL [id number] take 1 tab po BID WELLBUTRIN SR 150 MG ORAL [id number] BUPROPION HCL Inactive AZITHROMYCIN 250 MG ORAL TABS 1 tab daily AZITHROMYCIN 250 MG ORAL TABS 1038166 AZITHROMYCIN Inactive HYDROCODONE-ACETAMINOPHEN 5-325 MG TABS 1 tab by mouth every 6 hours as needed for bck pain HYDROCODONE-ACETAMINOPHEN 5-325 MG TABS 039576 HYDROCODONE-ACETAMINOPHEN Inactive PREDNISONE 20 MG TAB 1 tab po BID for 3 days, then 1 tab po qday for 3 days PREDNISONE 20 MG TAB 101886 PREDNISONE Inactive BACTRIM DS 800-160 MG TAB 1 tab by mouth twice daily BACTRIM DS 800-160 MG TAB 386746 TRIMETHOPRIM-SULFAMETHOXAZOLE Inactive LEVAQUIN 500 MG TAB 1 tablet by mouth daily LEVAQUIN 500 MG TAB 325590 LEVOFLOXACIN Inactive KEFLEX 500 MG CAP 1 po TID x 10 days KEFLEX 500 MG CAP 711067 CEPHALEXIN Inactive BACTRIM DS 800-160 MG TAB 1 tab by mouth twice daily BACTRIM DS 800-160 MG TAB 19820425 TRIMETHOPRIM-SULFAMETHOXAZOLE Inactive FENTANYL 25 MCG/HR PT72 Apply to clean, dry skin and change every 72 hours FENTANYL 25 MCG/HR PT72 077777 FENTANYL Inactive ZITHROMAX 250 MG TAB 2 po today, then 1 po q days 2-5 ZITHROMAX 250 MG TAB 9719992 AZITHROMYCIN Inactive AZITHROMYCIN 250 MG TABS 2 po qd x 1 day, then 1 po qd x 4 days AZITHROMYCIN 250 MG TABS 5889094 AZITHROMYCIN Inactive AZITHROMYCIN 250 MG TABS 2 po qd x 1 day, then 1 po qd x 4 days AZITHROMYCIN 250 MG TABS 7214632 AZITHROMYCIN Inactive Vital Signs Date Name Value [...] Panel - Chemistry sodium, serum 133 mmol/L 976-162 8022/08/24 potassium, serum 4.4 mmol/L 3.5-5.2 chloride, serum 95 mmol/L 98-107 carbon dioxide, venous blood 33.0 mmol/L 21.0-32.0 blood glucose 107 mg/dL 65-110 calcium, serum 8.8 mg/dL 8.5-10.1 urea nitrogen, blood 12 mg/dL 7-18 creatinine, serum 0.69 mg/dL 0.55-1.30 Lab Report: CBC, Basic Metabolic Panel - Chemistry sodium, serum 132 mmol/L 969-400 8635/10/12 potassium, serum 4.7 mmol/L 3.5-5.2 chloride, serum [...] CBC - Chemistry sodium, serum 136 mmol/L 173-582 0399/11/01 carbon dioxide, venous blood 32.1 mmol/L 21.0-32.0 [...] Negative Encounters Code Encounter Date Provider Facility CPT-20963 Level 3 Est. Patient 20:53:25 DOUBLE BOTTOM DRIVER Gareth Cancino MD [facility] CPT-06582 Level 3 Est. Patient 10:34:55 CDT Gareth Cancino MD [facility]-88731 Level 4 Est. Patient 09:00:18 CDT Gareth Cancino MD [facility] CPT-59914 Level 3 Est. Patient 15:12:03 CDT Gareth Cancino MD [facility] CPT-52937 Level 3 Est. Patient 23:08:20 CDT Gareth Cancino MD [facility] CPT-07595 Level 4 Est. Patient 20:40:10 CDT Gareth Cancino MD [facility] CPT-72793 Level 4 Est. Patient 19:50:11 CDT Gareth Cancino MD [facility] CPT-16116 Level 3 Est. Patient 11:00:13 CDT Gareth Cancino MD [facility] CPT-44737 Level 4 Est. Patient 11:20:21 CDT Gareth Cancino MD [facility] CPT-32547 Level 4 Est. Patient 09:22:18 DOUBLE BOTTOM DRIVER Gareth Cancino MD [facility] CPT-28212 Level 3 Est. Patient 09:48:04 CDT Gareth Cancino MD [facility] CPT-55559 Level 3 Est. Patient 10:13:16 CDT Gareth Cancino MD [facility] CPT-36093 Level 2 Est. Patient 18:36:56 CDT Gareth Cancino MD [facility] CPT-67858 Level 4 Est. Patient 13:50:53 CDT Gareth Cancino MD [facility] CPT-82979 Level 3 Est. Patient 14:58:33 DOUBLE BOTTOM DRIVER Gareth Cancino MD [facility] CPT-25158 Level 4 Est. Patient 09:25:57 CDT Gareth Cancino MD [facility] CPT-52652 Level 3 Est. Patient 20:39:33 CDT Noman Edwards DO [facility] CPT-94116 Level 2 Est. Patient 13:17:39 CDT Gareth Cancino MD [facility] CPT-51194 Level 3 Est. Patient 13:37:20 CDT Gareth Cancino MD [facility] CPT-01388 Level 3 Est. Patient 18:09:08 CDT Gareth Cancino MD [facility] CPT-56626 Level 4 Est. Patient 09:59:07 CDT Gareth Cancino MD [facility] Procedures Code Procedure Name Date Entry Date Standard Description CPT-000 Give Appropriate Flu Vaccine 09:29:52 DOUBLE BOTTOM DRIVER CPT-000 Give Appropriate Flu Vaccine 09:22:20 DOUBLE BOTTOM DRIVER CPT-86446 TSH - LAB USE ONLY 08:11:40 DOUBLE BOTTOM DRIVER CPT-39689 Free T4 - LAB USE ONLY 08:11:40 DOUBLE BOTTOM DRIVER CPT-75803 Venipuncture Draw Fee 08:11:40 DOUBLE BOTTOM DRIVER CPT-14346 UA w micro - LAB USE ONLY 14:26:22 DOUBLE BOTTOM DRIVER CPT-G0438 Initial Annual Wellness Exam 20:53:25 DOUBLE BOTTOM DRIVER CPT-G0009 Administration of Pneumococcal Vaccine 11:42:53 DOUBLE BOTTOM DRIVER CPT-22837 Prevnar 13 Intramuscular Suspension 11:42:53 DOUBLE BOTTOM DRIVER 01/07 CPT-81079 First Vx - Ix admin for Medicare patients 11:39:44 DOUBLE BOTTOM DRIVER CPT-52371 Fluzone High-Dose Intramuscular Suspension 11:39:44 DOUBLE BOTTOM DRIVER CPT-92291 Prevnar 13 Intramuscular Suspension 09:29:52 DOUBLE BOTTOM DRIVER 01/07 CPT-89770 CMP - LAB USE ONLY 16:31:15 CDT CPT-31179 CBC - LAB USE ONLY 16:31:14 CDT CPT-94018 Venipuncture Draw Fee 16:31:14 CDT CPT-89793 BMP - LAB USE ONLY 14:37:27 CDT CPT-80493 CBC - LAB USE ONLY 14:37:27 CDT CPT-05401 Venipuncture Draw Fee 14:37:27 CDT CPT-TCMM Transitional Care Mgmt-Moderate 14:43:38 CDT CPT-42422 Venipuncture Draw Fee 10:33:47 CDT CPT-22796 BMP - LAB USE ONLY 10:33:46 CDT CPT-Cryo Cryotherapy 15:12:03 CDT CPT-46589 LS spine AP and Lat - XRAY USE ONLY 10:31:51 CDT 07/27 CPT-00473 Punch biopsy 1 lsn 20:40:09 CDT CPT-G0008 Administration of Influenza Virus Vaccine 10:04:48 DOUBLE BOTTOM DRIVER CPT-83054 Fluzone High-Dose Intramuscular Suspension 10:04:48 DOUBLE BOTTOM DRIVER CPT-76622 Ribs unilat w PA chst min 3V 10:45:40 CDT CPT-LR Lesion Removal 13:14:55 CDT CPT-Cryo Cryotherapy 13:14:55 CDT CPT-73530 Venipuncture Draw Fee 10:25:49 CDT CPT-24880 Administration single or combination vaccine inc oral 13 :22:14 DOUBLE BOTTOM DRIVER CPT-08983 Influenza High Dose age 65+ 13:22:14 DOUBLE BOTTOM DRIVER
--- OUTSIDE RECORDS SUMMARY | 2016-12-06 08:48 | XMS REPORT | Clinical Summary ---
Author Author Admin, Leon Organization [facility] Address Unknown Phone Unavailable Allergies, Adverse Reactions, Alerts Allergy Name Reaction Description Start Date Severity Status Provider No Known Allergies Tangela Raida Conditions or Problems Problem Name Problem Code Onset Date Status Entry Date Provider Comment Standard Description Annotate HYPERTENSION 401.9 Active Gareth Cancion MD Unspecified essential hypertension HYPERCHOLESTEROLEMIA, PURE 272.0 [...] Urinary hesitancy TOBACCO ABUSE 305.1 Active Gareth Canicno MD Tobacco use disorder SEBORRHEIC KERATOSIS 702.19 [...] 1 tablet by mouth qhs prn ALPRAZOLAM 47443013740 No Longer Active Gareth Cancino MD Active CLOBETASOL PROPIONATE 0.05 % CREA apply to hand rash bid CLOBETASOL PROPIONATE 53262340684 No Longer Active Gareth Cancino MD Active BACTROBAN 2 % CREAM Apply to affected area BID MUPIROCIN CALCIUM 47916263813 No Longer Active Gareth Cancino MD Active LISINOPRIL 20 MG TABS 1 tablet by mouth daily for high blood pressure 10/14 LISINOPRIL 21434053603 Active Gareth Cancino MD Active BACTRIM DS 800-160 MG TAB 1 tab by mouth twice daily TRIMETHOPRIM-SULFAMETHOXAZOLE 90670374830 No Longer Active Gareth Cancino MD Active METOPROLOL SUCCINATE ER 100 MG [id number] 1 pill by mouth daily, for blood pressure METOPROLOL SUCCINATE 89954829323 Active Gareth Cancino MD Active KEFLEX 500 MG CAP 1 po TID x 10 days CEPHALEXIN 30131541632 No Longer Active Blanca Castillo APRN Active WELLBUTRIN SR 150 MG ORAL [id number]-CCZ take 1 tab po BID BUPROPION HCL 67342695008 Active Gareth Cancino MD Active METOPROLOL SUCCINATE 50 MG TB24 1 tablet by mouth daily METOPROLOL SUCCINATE 78713843682 No Longer Active Gareth Cancino MD Active OMEPRAZOLE 20 MG TBEC Take one by mouth daily OMEPRAZOLE 76171437796 No Longer Active Gareth Cancino MD Active OMEPRAZOLE 40 MG CPDR 1 tab po qday for acid reflux. OMEPRAZOLE 08849957008 Active Mary Shah APRN Active LEVAQUIN 500 MG TAB 1 tablet by mouth daily LEVOFLOXACIN 92211928128 No Longer Active Gareth Cancino MD Active ALEVE 220 MG TAB 2 tab po qd NAPROXEN SODIUM 53076839094 Active Gareth Cancino MD Active ASPIRIN 81 MG CHEW TAB 1 tablet by mouth daily ASPIRIN 03493253891 Active Gareth Cancino MD Active VENTOLIN HFA 108 (90 BASE) MCG/ACT AERS 1-2 puffs four times a day PRN shortness of breath ALBUTEROL SULFATE 94410815530 Active Mary Shah [employer] Active CENTRUM SILVER TABS 1 TAB PO DAILY MULTIPLE VITAMINS-MINERALS 59468886993 Active Gareth Cancino MD Active VITAMIN B12 100 MCG TABS 1 TAB PO DAILY CYANOCOBALAMIN 11179176088 Active Gareth Cancino MD Active CIPRO 500 MG TABS 1 TAB PO BID CIPROFLOXACIN HCL 92086643302 No Longer Active Gareth Cancino MD Active BACTRIM DS 800-160 MG TAB 1 tab by mouth twice daily TRIMETHOPRIM-SULFAMETHOXAZOLE 28035448555 No Longer Active Gareth Cancino MD Active PREDNISONE 20 MG TAB 1 tab po BID for 3 days, then 1 tab po qday for 3 days PREDNISONE 91584500499 No Longer Active Gareth Cancino MD Active FOLIC ACID 800 MCG TABS Take one by mouth daily FOLIC ACID 38986311430 No Longer Active Gareth Cancino MD Active VITAMIN B-6 250 MG TABS Take one by mouth daily PYRIDOXINE HCL 86583805899 No Longer Active Gareth Cancino MD Active B-12 1000 MCG CAPS Take one by mouth daily CYANOCOBALAMIN 71174214738 No Longer Active Gareth Cancino MD Active DOXYCYCLINE HYCLATE 100 MG CAP 1 cap by mouth twice daily DOXYCYCLINE HYCLATE 10129047935 No Longer Active Gareth Cancino MD Active PREDNISONE 20 MG TAB 1 po bid 3 days, then 1 po q day 3 days 2011 PREDNISONE 01357590888 No Longer Active Gareth Cancino MD Active CHANTIX STARTING MONTH RUBEN 0.5 MG X 11 & 1 MG X 42 TABS 0.5mg daily for 3 days , then 0.5mg BID for 4 days, then 1mg BID VARENICLINE TARTRATE 22180587147 No Longer Active Gareth Cancino MD Active SIMVASTATIN 40 MG TABS Take one by mouth daily SIMVASTATIN 79059524062 Active Gareth Cancino MD Active TRIAMTERENE-HCTZ 37.5-25 MG CAPS Take one by mouth daily TRIAMTERENE- HCTZ 05240799428 Active Gareth Cancino MD Active CHANTIX STARTING [...] 3 days 2011 PREDNISONE 20 MG TAB 311363 PREDNISONE Inactive DOXYCYCLINE HYCLATE 100 MG CAP 1 cap by mouth twice daily DOXYCYCLINE HYCLATE 100 MG CAP 7414922 DOXYCYCLINE HYCLATE Inactive B-12 1000 MCG CAPS Take one by mouth daily B-12 1000 MCG CAPS CYANOCOBALAMIN Inactive VITAMIN B-6 250 MG TABS Take one by mouth daily VITAMIN B-6 250 MG TABS PYRIDOXINE HCL Inactive FOLIC ACID 800 MCG TABS Take one by mouth daily FOLIC ACID 800 MCG TABS 010405 FOLIC ACID Inactive CIPRO 500 MG TABS 1 TAB PO BID CIPRO 500 MG TABS 770291 CIPROFLOXACIN HCL Inactive OMEPRAZOLE 20 MG TBEC Take one by mouth daily OMEPRAZOLE 20 MG TBEC 019795 OMEPRAZOLE Inactive METOPROLOL SUCCINATE 50 MG TB24 1 tablet by mouth daily METOPROLOL SUCCINATE 50 MG TB24 METOPROLOL SUCCINATE Inactive BACTROBAN 2 % CREAM Apply to affected area BID BACTROBAN 2 % CREAM 415765 MUPIROCIN CALCIUM Inactive CLOBETASOL PROPIONATE 0.05 % CREA apply to hand rash bid CLOBETASOL PROPIONATE 0.05 % CREA 157294 CLOBETASOL PROPIONATE Inactive ALPRAZOLAM 0.25 MG TAB 1/2 to 1 tablet by mouth qhs prn ALPRAZOLAM 0.25 MG TAB 822131 ALPRAZOLAM Inactive PREDNISONE 20 MG TAB 1 tab po BID for 3 days, then 1 tab po qday for 3 days PREDNISONE 20 MG TAB 315051 PREDNISONE Inactive BACTRIM DS 800-160 MG TAB 1 tab by mouth twice daily BACTRIM DS 800-160 MG TAB 277706 TRIMETHOPRIM-SULFAMETHOXAZOLE Inactive LEVAQUIN 500 MG TAB 1 tablet by mouth daily LEVAQUIN 500 MG TAB 809522 LEVOFLOXACIN Inactive KEFLEX 500 MG CAP 1 po TID x 10 days KEFLEX 500 MG CAP 017148 CEPHALEXIN Inactive BACTRIM DS 800-160 MG TAB 1 tab by mouth twice daily BACTRIM DS 800-160 MG TAB 591181 TRIMETHOPRIM-SULFAMETHOXAZOLE Inactive Vital Signs Date Name Value [...] ... - Chemistry cholesterol, serum 195 mg/dL 519-198 5147/12/02 triglyceride, serum, fasting 74 mg/dL 30-200 HDL cholesterol, serum 52 mg/dL 32-96 LDL cholesterol, serum 128 mg/dL 0-130 sodium, serum 134 mmol/L 204-639 9448/12/02 carbon dioxide, venous blood 30.3 mmol/L 21.0-32.0 [...] 0-19 Encounters Code Encounter Date Provider Facility CPT-08248 Level 3 Est. Patient 23:08:20 CDT Gareth Cancino MD [facility] CPT-00739 Level 4 Est. Patient 20:40:10 CDT Gareth Cancino MD [facility] CPT-79467 Level 4 Est. Patient 19:50:11 CDT Gareth Cancino MD [facility] CPT-49982 Level 3 Est. Patient 11:00:13 CDT Gareth Cancino MD [facility] CPT-95432 Level 4 Est. Patient 11:20:21 CDT Gareth Cancino MD [facility] CPT-79249 Level 4 Est. Patient 09:22:18 IN STORE DEMONSTRATOR Gareth Cancino MD [facility] CPT-20520 Level 3 Est. Patient 09:48:04 CDT Gareth Cancino MD [facility] CPT-85250 Level 3 Est. Patient 10:13:16 CDT Gareth Cancino MD [facility] CPT-50098 Level 2 Est. Patient 18:36:56 CDT Gareth Cancino MD [facility] CPT-42083 Level 4 Est. Patient 13:50:53 CDT Gareth Cancino MD [facility] CPT-57080 Level 3 Est. Patient 14:58:33 IN STORE DEMONSTRATOR Gareth Cancino MD [facility] CPT-34300 Level 4 Est. Patient 09:25:57 CDT Gareth Cancino MD [facility] CPT-78089 Level 3 Est. Patient 20:39:33 CDT Noman Edwards DO [facility] CPT-82747 Level 2 Est. Patient 13:17:39 CDT Gareth Cancino MD [facility] CPT-49959 Level 3 Est. Patient 13:37:20 CDT Gareth Cancino MD [facility] CPT-56269 Level 3 Est. Patient 18:09:08 CDT Gareth Cancino MD [facility] CPT-11152 Level 4 Est. Patient 09:59:07 CDT Gareth Cancino MD [facility] Procedures Code Procedure Name Date Entry Date Standard Description CPT-68287 LS spine AP and Lat - XRAY USE ONLY 10:31:51 CDT 07/27 CPT-51323 Punch biopsy 1 lsn 20:40:09 CDT CPT-G0008 Administration of Influenza Virus Vaccine 10:04:48 IN STORE DEMONSTRATOR CPT-18132 Fluzone High-Dose Intramuscular Suspension 10:04:48 IN STORE DEMONSTRATOR CPT-20203 Ribs unilat w PA chst min 3V 10:45:40 CDT CPT-LR Lesion Removal 13:14:55 CDT CPT-Cryo Cryotherapy 13:14:55 CDT CPT-57382 Venipuncture Draw Fee 10:25:49 CDT CPT-49655 Administration single or combination vaccine inc oral 13 :22:14 IN STORE DEMONSTRATOR CPT-38133 Influenza High Dose age 65+ 13:22:14 IN STORE DEMONSTRATOR
--- OUTSIDE RECORDS SUMMARY | 2016-12-06 08:48 | XMS REPORT | Clinical Summary ---
Author Author Admin, HILARIA Organization [facility] Address Unknown Phone Unavailable Allergies, Adverse Reactions, [...] tab po qday for acid reflux. OMEPRAZOLE 70358898548 Active Gareth Cancino MD Active LEVAQUIN 500 MG TAB 1 tablet by mouth daily LEVOFLOXACIN 62324509029 No Longer Active Gareth Cancino MD Active ALEVE 220 MG TAB 2 tab po qd NAPROXEN SODIUM 62530580257 Active Gareth Cancino MD Active ASPIRIN 81 MG CHEW TAB 1 tablet by mouth daily ASPIRIN 69292384913 Active Gareth Cancino MD Active VENTOLIN HFA 108 (90 BASE) MCG/ACT AERS 1-2 puffs four times a day PRN shortness of breath ALBUTEROL SULFATE 37916626735 Active Gareth Cancino MD Active CENTRUM SILVER TABS 1 TAB PO DAILY MULTIPLE VITAMINS-MINERALS 68263330809 Active Gareth Cancino MD Active VITAMIN B12 100 MCG TABS 1 TAB PO DAILY CYANOCOBALAMIN 26954764804 Active Gareth Cancino MD Active CIPRO 500 MG TABS 1 TAB PO BID CIPROFLOXACIN HCL 79738455646 No Longer Active Gareth Cancino MD Active BACTRIM DS 800-160 MG TAB 1 tab by mouth twice daily TRIMETHOPRIM-SULFAMETHOXAZOLE 09120013675 No Longer Active Gareth Cancino MD Active METOPROLOL SUCCINATE 50 MG TB24 1 tablet by mouth daily METOPROLOL SUCCINATE 97029255076 Active Gareth Cancino MD Active PREDNISONE 20 MG TAB 1 tab po BID for 3 days, then 1 tab po qday for 3 days PREDNISONE 82284335420 No Longer Active Gareth Cancino MD Active FOLIC ACID 800 MCG TABS Take one by mouth daily FOLIC ACID 33145928667 No Longer Active Gareth Cancino MD Active VITAMIN B-6 250 MG TABS Take one by mouth daily PYRIDOXINE HCL 80899207717 No Longer Active Gareth Cancino MD Active B-12 1000 MCG CAPS Take one by mouth daily CYANOCOBALAMIN 20141355328 No Longer Active Gareth Cancino MD Active DOXYCYCLINE HYCLATE 100 MG CAP 1 cap by mouth twice daily DOXYCYCLINE HYCLATE 08982934261 No Longer Active Gareth Cancino MD Active PREDNISONE 20 MG TAB 1 po bid 3 days, then 1 po q day 3 days 2011 PREDNISONE 60862038640 No Longer Active Gareth Cancino MD Active CHANTIX STARTING MONTH RUBEN 0.5 MG X 11 & 1 MG X 42 TABS 0.5mg daily for 3 days , then 0.5mg BID for 4 days, then 1mg BID VARENICLINE TARTRATE 88308843899 No Longer Active Gareth Cancino MD Active ALPRAZOLAM 0.25 MG TAB 1/2 to 1 tablet by mouth qhs prn ALPRAZOLAM 89732918619 Active Gareth Cancino MD Active SIMVASTATIN 40 MG TABS Take one by mouth daily SIMVASTATIN 29561451239 Active Gareth Cancino MD Active TRIAMTERENE-HCTZ 37.5-25 MG CAPS Take one by mouth daily TRIAMTERENE- HCTZ 63050012013 Active Gareth Cancino MD Active OMEPRAZOLE 20 MG TBEC Take one by mouth daily OMEPRAZOLE 37710408533 Active Gareth Cancino MD Active CHANTIX STARTING [...] 3 days 2011 PREDNISONE 20 MG TAB 981485 PREDNISONE Inactive DOXYCYCLINE HYCLATE 100 MG CAP 1 cap by mouth twice daily DOXYCYCLINE HYCLATE 100 MG CAP 196568 DOXYCYCLINE HYCLATE Inactive B-12 1000 MCG CAPS Take one by mouth daily B-12 1000 MCG CAPS CYANOCOBALAMIN Inactive VITAMIN B-6 250 MG TABS Take one by mouth daily VITAMIN B-6 250 MG TABS PYRIDOXINE HCL Inactive FOLIC ACID 800 MCG TABS Take one by mouth daily FOLIC ACID 800 MCG TABS 695099 FOLIC ACID Inactive CIPRO 500 MG TABS 1 TAB PO BID CIPRO 500 MG TABS 959958 CIPROFLOXACIN HCL Inactive PREDNISONE 20 MG TAB 1 tab po BID for 3 days, then 1 tab po qday for 3 days PREDNISONE 20 MG TAB 767609 PREDNISONE Inactive BACTRIM DS 800-160 MG TAB 1 tab by mouth twice daily BACTRIM DS 800-160 MG TAB TRIMETHOPRIM-SULFAMETHOXAZOLE Inactive LEVAQUIN 500 MG TAB 1 tablet by mouth daily LEVAQUIN 500 MG TAB 922129 LEVOFLOXACIN Inactive Vital Signs Date Name Value [...] MICROALBUMIN - Chemistry sodium, serum 138 mmol/L 845-574 9744/09/10 potassium, serum 4.2 mmol/L 3.5-5.2 chloride, serum [...] 0.20 mg/dL 0.00-1.00 cholesterol, serum 153 mg/dL 574-050 3416/09/10 triglyceride, serum, fasting 69 mg/dL 30-200 HDL [...] mg/dL Encounters Code Encounter Date Provider Facility CPT-32413 Level 4 Est. 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 Patient 09:48:04 CDT Gareth Cancino MD [facility] CPT-86589 Level 3 Est. Patient 10:13:16 CDT Gareth Cancino MD [facility] CPT-64678 Level 2 Est. Patient 18:36:56 CDT Gareth Cancion MD [facility] CPT-55916 Level 4 Est. Patient 13:50:53 CDT Gareth Cancino MD [facility] CPT-53478 Level 3 Est. 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 Patient 09:25:57 CDT Gareth Cancino MD [facility] CPT-81425 Level 3 Est. Patient 20:39:33 CDT Noman Edwards DO [facility] CPT-37611 Level 2 Est. Patient 13:17:39 CDT Gareth Cancino MD [facility] CPT-60771 Level 3 Est. Patient 13:37:20 CDT Gareth Cancino MD [facility] CPT-84274 Level 3 Est. Patient 18:09:08 CDT Gareth Cancino MD [facility] CPT-44129 Level 4 Est. Patient 09:59:07 CDT Gareth Cancino MD [facility] Procedures Code Procedure Name Date Entry Date Standard Description CPT-G0008 Administration of Influenza Virus Vaccine 10:04:48 RAIL MAINTENANCE WORKER CPT-24361 Fluzone High-Dose Intramuscular Suspension 10:04:48 RAIL MAINTENANCE WORKER CPT-46756 Ribs unilat w PA chst min 3V 10:45:40 CDT CPT-LR Lesion Removal 13:14:55 CDT CPT-Cryo Cryotherapy 13:14:55 CDT CPT-61873 Venipuncture Draw Fee 10:25:49 CDT CPT-02676 Administration single or combination vaccine inc oral 13 :22:14 RAIL MAINTENANCE WORKER CPT-21982 Influenza High Dose age 65+ 13:22:14 RAIL MAINTENANCE WORKER
--- OUTSIDE RECORDS SUMMARY | 2016-12-06 08:49 | XMS REPORT | Clinical Summary ---
Author Author Admin, HILARIA Organization [email or web address] Address Unknown Phone Unavailable Allergies, Adverse Reactions, [...] 1/2 tab daily for 4 days PREDNISONE 73040477785 No Longer Active Mary Shah APRN Active LEVAQUIN 500 MG TAB 1 tablet by mouth daily for 7 days LEVOFLOXACIN 49301649565 Active Mary Shah APRN Active AZITHROMYCIN 250 MG TABS 2 po qd x 1 day, then 1 po qd x 4 days AZITHROMYCIN 49039547115 No Longer Active Danuta Modi Active AZITHROMYCIN 250 MG TABS 2 po qd x 1 day, then 1 po qd x 4 days AZITHROMYCIN 96007276061 No Longer Active Tangela Forte Active HYDROCODONE-ACETAMINOPHEN 5-325 MG TABS 1 tab by mouth every 6 hours as needed for bck pain HYDROCODONE-ACETAMINOPHEN 23849300679 No Longer Active Gareth Cancino MD Active FENTANYL 12 MCG/HR PT72 Apply to clean, dry skin and change every 72 hours FENTANYL 65010450418 Active Gareth Cancino MD Active ALPRAZOLAM 0.25 MG TAB 1 tablet by mouth q hs prn ALPRAZOLAM 97908271988 Active Gareth Cancino MD Active AZITHROMYCIN 250 MG ORAL TABS 1 tab daily AZITHROMYCIN 64098041469 No Longer Active Gareth Cancino MD Active ZITHROMAX 250 MG TAB 2 po today, then 1 po q days 2-5 AZITHROMYCIN 89881924255 No Longer Active Tangela Forte Active IPRATROPIUM-ALBUTEROL 0.5-2.5 (3) MG/3ML INH SOLN nebulize 1 vial every 6hrs prn shortness of breath IPRATROPIUM-ALBUTEROL 06547745793 Active Gareth Cancino MD Active FENTANYL 25 MCG/HR PT72 Apply to clean, dry skin and change every 72 hours FENTANYL 63087549093 No Longer Active Gareth Cancino MD Active WELLBUTRIN SR 150 MG ORAL [id number] take 1 tab po BID BUPROPION HCL 60116552415 No Longer Active Gareth Cancino MD Active ZOFRAN 4 MG ORAL TABS 1 by mouth every 6 hours prn nausea ONDANSETRON HCL 51126042656 Active Tangela Forte Active TRAMADOL HCL 50 MG TABS 1 po tid PRN TRAMADOL HCL 09886328368 Active Gareth Cancino MD Active ALPRAZOLAM 0.25 MG TAB 1/2 to 1 tablet by mouth qhs prn ALPRAZOLAM 19126891524 No Longer Active Gareth Cancino MD Active CLOBETASOL PROPIONATE 0.05 % CREA apply to hand rash bid CLOBETASOL PROPIONATE 39728289025 No Longer Active Gareth Cancino MD Active BACTROBAN 2 % CREAM Apply to affected area BID MUPIROCIN CALCIUM 50955057978 No Longer Active Gareth Cancino MD Active LISINOPRIL 20 MG TABS 1 tablet by mouth daily for high blood pressure 10/14 LISINOPRIL 74681899390 Active Mary Shah APRN Active BACTRIM DS 800-160 MG TAB 1 tab by mouth twice daily TRIMETHOPRIM-SULFAMETHOXAZOLE 01523854134 No Longer Active Gareth Cancino MD Active METOPROLOL SUCCINATE ER 100 MG [id number] 1 pill by mouth daily, for blood pressure METOPROLOL SUCCINATE 63920121958 Active Mary Shah APRN Active KEFLEX 500 MG CAP 1 po TID x 10 days CEPHALEXIN 76336530953 No Longer Active Blanca Castillo APRN Active METOPROLOL SUCCINATE 50 MG TB24 1 tablet by mouth daily METOPROLOL SUCCINATE 22066388996 No Longer Active Gareth Cancino MD Active OMEPRAZOLE 20 MG TBEC Take one by mouth daily OMEPRAZOLE 93817962744 No Longer Active Gareth Cancino MD Active OMEPRAZOLE 40 MG CPDR 1 tab po qday for acid reflux. OMEPRAZOLE 64563210455 Active Mary Shah APRN Active LEVAQUIN 500 MG TAB 1 tablet by mouth daily LEVOFLOXACIN 12538453141 No Longer Active Gareth Cancino MD Active ALEVE 220 MG TAB 2 tab po qd NAPROXEN SODIUM 54795728333 Active Gareth Cancino MD Active ASPIRIN 81 MG CHEW TAB 1 tablet by mouth daily ASPIRIN 08231143141 Active Gareth Cancino MD Active VENTOLIN HFA 108 (90 BASE) MCG/ACT AERS 1-2 puffs four times a day PRN shortness of breath ALBUTEROL SULFATE 48307973658 Active Mary Shah TRAY SERVER Active CENTRUM SILVER TABS 1 TAB PO DAILY MULTIPLE VITAMINS-MINERALS 72904767827 Active Gareth Cancino MD Active VITAMIN B12 100 MCG TABS 1 TAB PO DAILY CYANOCOBALAMIN 03247476374 Active Gareth Cancino MD Active CIPRO 500 MG TABS 1 TAB PO BID CIPROFLOXACIN HCL 93429510835 No Longer Active Gareth Cancino MD Active BACTRIM DS 800-160 MG TAB 1 tab by mouth twice daily TRIMETHOPRIM-SULFAMETHOXAZOLE 46851026676 No Longer Active Gareth Cancino MD Active PREDNISONE 20 MG TAB 1 tab po BID for 3 days, then 1 tab po qday for 3 days PREDNISONE 42878592251 No Longer Active Gareth Cancino MD Active FOLIC ACID 800 MCG TABS Take one by mouth daily FOLIC ACID 48195478252 No Longer Active Gareth Cancino MD Active VITAMIN B-6 250 MG TABS Take one by mouth daily PYRIDOXINE HCL 31463374282 No Longer Active Gareth Cancino MD Active B-12 1000 MCG CAPS Take one by mouth daily CYANOCOBALAMIN 70122134423 No Longer Active Gareth Cancino MD Active DOXYCYCLINE HYCLATE 100 MG CAP 1 cap by mouth twice daily DOXYCYCLINE HYCLATE 99530865788 No Longer Active Gareth Cancino MD Active PREDNISONE 20 MG TAB 1 po bid 3 days, then 1 po q day 3 days 2011 PREDNISONE 66813416446 No Longer Active Gareth Cancino MD Active CHANTIX STARTING MONTH RUBEN 0.5 MG X 11 & 1 MG X 42 TABS 0.5mg daily for 3 days , then 0.5mg BID for 4 days, then 1mg BID VARENICLINE TARTRATE 34984038579 No Longer Active Gareth Cancino MD Active SIMVASTATIN 40 MG TABS Take one by mouth daily SIMVASTATIN 14599310868 Active Gareth Cancino MD Active TRIAMTERENE-HCTZ 37.5-25 MG CAPS Take one by mouth daily TRIAMTERENE- HCTZ 47324427819 Active Gareth Cnacino MD Active CHANTIX STARTING [...] 3 days 2011 PREDNISONE 20 MG TAB 429888 PREDNISONE Inactive DOXYCYCLINE HYCLATE 100 MG CAP 1 cap by mouth twice daily DOXYCYCLINE HYCLATE 100 MG CAP 0099502 DOXYCYCLINE HYCLATE Inactive B-12 1000 MCG CAPS Take one by mouth daily B-12 1000 MCG CAPS CYANOCOBALAMIN Inactive VITAMIN B-6 250 MG TABS Take one by mouth daily VITAMIN B-6 250 MG TABS PYRIDOXINE HCL Inactive FOLIC ACID 800 MCG TABS Take one by mouth daily FOLIC ACID 800 MCG TABS 814027 FOLIC ACID Inactive CIPRO 500 MG TABS 1 TAB PO BID CIPRO 500 MG TABS 778802 CIPROFLOXACIN HCL Inactive OMEPRAZOLE 20 MG TBEC Take one by mouth daily OMEPRAZOLE 20 MG TBEC 859775 OMEPRAZOLE Inactive METOPROLOL SUCCINATE 50 MG TB24 1 tablet by mouth daily METOPROLOL SUCCINATE 50 MG TB24 METOPROLOL SUCCINATE Inactive BACTROBAN 2 % CREAM Apply to affected area BID BACTROBAN 2 % CREAM 758594 MUPIROCIN CALCIUM Inactive CLOBETASOL PROPIONATE 0.05 % CREA apply to hand rash bid CLOBETASOL PROPIONATE 0.05 % CREA 363020 CLOBETASOL PROPIONATE Inactive ALPRAZOLAM 0.25 MG TAB 1/2 to 1 tablet by mouth qhs prn ALPRAZOLAM 0.25 MG TAB 189902 ALPRAZOLAM Inactive WELLBUTRIN SR 150 MG ORAL [id number] take 1 tab po BID WELLBUTRIN SR 150 MG ORAL [id number] BUPROPION HCL Inactive AZITHROMYCIN 250 MG ORAL TABS 1 tab daily AZITHROMYCIN 250 MG ORAL TABS 3488951 AZITHROMYCIN Inactive HYDROCODONE-ACETAMINOPHEN 5-325 MG TABS 1 tab by mouth every 6 hours as needed for bck pain HYDROCODONE-ACETAMINOPHEN 5-325 MG TABS 657110 HYDROCODONE-ACETAMINOPHEN Inactive PREDNISONE 20 MG TAB 1 tab po BID for 3 days, then 1 tab po qday for 3 days PREDNISONE 20 MG TAB 487575 PREDNISONE Inactive BACTRIM DS 800-160 MG TAB 1 tab by mouth twice daily BACTRIM DS 800-160 MG TAB 948286 TRIMETHOPRIM-SULFAMETHOXAZOLE Inactive LEVAQUIN 500 MG TAB 1 tablet by mouth daily LEVAQUIN 500 MG TAB 240666 LEVOFLOXACIN Inactive KEFLEX 500 MG CAP 1 po TID x 10 days KEFLEX 500 MG CAP 223216 CEPHALEXIN Inactive BACTRIM DS 800-160 MG TAB 1 tab by mouth twice daily BACTRIM DS 800-160 MG TAB 19820425 TRIMETHOPRIM-SULFAMETHOXAZOLE Inactive FENTANYL 25 MCG/HR PT72 Apply to clean, dry skin and change every 72 hours FENTANYL 25 MCG/HR PT72 286157 FENTANYL Inactive ZITHROMAX 250 MG TAB 2 po today, then 1 po q days 2-5 ZITHROMAX 250 MG TAB 2985687 AZITHROMYCIN Inactive AZITHROMYCIN 250 MG TABS 2 po qd x 1 day, then 1 po qd x 4 days AZITHROMYCIN 250 MG TABS 8796395 AZITHROMYCIN Inactive AZITHROMYCIN 250 MG TABS 2 po qd x 1 day, then 1 po qd x 4 days AZITHROMYCIN 250 MG TABS 4678268 AZITHROMYCIN Inactive PREDNISONE 20 MG TAB take 3 tabs daily for 3 days, 2 tabs daily for 3 days, 1 tab daily for 3 days, 1/2 tab daily for 4 days PREDNISONE 20 MG TAB 071771 PREDNISONE Inactive Vital Signs Date Name Value [...] Panel - Chemistry sodium, serum 133 mmol/L 291-421 2954/08/24 potassium, serum 4.4 mmol/L 3.5-5.2 chloride, serum 95 mmol/L 98-107 carbon dioxide, venous blood 33.0 mmol/L 21.0-32.0 blood glucose 107 mg/dL 65-110 calcium, serum 8.8 mg/dL 8.5-10.1 urea nitrogen, blood 12 mg/dL 7-18 creatinine, serum 0.69 mg/dL 0.55-1.30 Lab Report: CBC, Basic Metabolic Panel - Chemistry sodium, serum 132 mmol/L 401-122 7579/10/12 potassium, serum 4.7 mmol/L 3.5-5.2 chloride, serum [...] CBC - Chemistry sodium, serum 136 mmol/L 413-880 9592/11/01 carbon dioxide, venous blood 32.1 mmol/L 21.0-32.0 [...] Negative Encounters Code Encounter Date Provider Facility CPT-02353 Level 3 Est. Patient 20:53:25 COMPUTER TECHNOLOGY TRAINER Gareth Cancino MD [facility] CPT-76413 Level 3 Est. Patient 10:34:55 CDT Gareth Cancino MD [facility] CPT-67699 Level 4 Est. Patient 09:00:18 CDT Gareth Cancino MD [facility] CPT-53527 Level 3 Est. Patient 15:12:03 CDT Gareth Cancino MD [facility] CPT-66170 Level 3 Est. Patient 23:08:20 CDT Gareth Cancino MD [facility] CPT-43025 Level 4 Est. Patient 20:40:10 CDT Gareth Cancino MD [facility] CPT-24311 Level 4 Est. Patient 19:50:11 CDT Gareth Cancino MD [facility] CPT-20091 Level 3 Est. Patient 11:00:13 CDT Gareth Cancino MD [facility] CPT-66091 Level 4 Est. Patient 11:20:21 CDT Gareth Cancino MD [facility] CPT-76234 Level 4 Est. Patient 09:22:18 COMPUTER TECHNOLOGY TRAINER Gareth Cancino MD [facility] CPT-08359 Level 3 Est. Patient 09:48:04 CDT Gareth Cancino MD [facility] CPT-94559 Level 3 Est. Patient 10:13:16 CDT Gareth Cancino MD [facility] CPT-37758 Level 2 Est. Patient 18:36:56 CDT Gareth Cancino MD [facility] CPT-97067 Level 4 Est. Patient 13:50:53 CDT Gareth Cancino MD [facility] CPT-79191 Level 3 Est. Patient 14:58:33 COMPUTER TECHNOLOGY TRAINER Gareth Cancino MD [facility] CPT-53263 Level 4 Est. Patient 09:25:57 CDT Gareth Cancino MD [facility] CPT-96173 Level 3 Est. Patient 20:39:33 CDT Noman Edwards DO [facility] CPT-77725 Level 2 Est. Patient 13:17:39 CDT Gareth Cancino MD [facility] CPT-82759 Level 3 Est. Patient 13:37:20 CDT Gareth Cancino MD [facility] CPT-06120 Level 3 Est. Patient 18:09:08 CDT Gareth Cancino MD [facility] CPT-17509 Level 4 Est. Patient 09:59:07 CDT Gareth Cancino MD [facility] Procedures Code Procedure Name Date Entry Date Standard Description CPT-000 Give Appropriate Flu Vaccine 09:29:52 COMPUTER TECHNOLOGY TRAINER CPT-000 Give Appropriate Flu Vaccine 09:22:20 COMPUTER TECHNOLOGY TRAINER CPT-10939 TSH - LAB USE ONLY 08:11:40 COMPUTER TECHNOLOGY TRAINER CPT-72428 Free T4 - LAB USE ONLY 08:11:40 COMPUTER TECHNOLOGY TRAINER CPT-70607 Venipuncture Draw Fee 08:11:40 COMPUTER TECHNOLOGY TRAINER CPT-20664 UA w micro - LAB USE ONLY 14:26:22 COMPUTER TECHNOLOGY TRAINER CPT-G0438 Initial Annual Wellness Exam 20:53:25 COMPUTER TECHNOLOGY TRAINER CPT-G0009 Administration of Pneumococcal Vaccine 11:42:53 COMPUTER TECHNOLOGY TRAINER CPT-14002 Prevnar 13 Intramuscular Suspension 11:42:53 COMPUTER TECHNOLOGY TRAINER 01/07 CPT-00404 First Vx - Ix admin for Medicare patients 11:39:44 COMPUTER TECHNOLOGY TRAINER CPT-29270 Fluzone High-Dose Intramuscular Suspension 11:39:44 COMPUTER TECHNOLOGY TRAINER CPT-16487 Prevnar 13 Intramuscular Suspension 09:29:52 COMPUTER TECHNOLOGY TRAINER 01/07 CPT-66518 CMP - LAB USE ONLY 16:31:15 CDT CPT-26028 CBC - LAB USE ONLY 16:31:14 CDT CPT-96815 Venipuncture Draw Fee 16:31:14 CDT CPT-52208 BMP - LAB USE ONLY 14:37:27 CDT CPT-14723 CBC - LAB USE ONLY 14:37:27 CDT CPT-67162 Venipuncture Draw Fee 14:37:27 CDT CPT-TCMM Transitional Care Mgmt-Moderate 14:43:38 CDT CPT-09959 Venipuncture Draw Fee 10:33:47 CDT CPT-89880 BMP - LAB USE ONLY 10:33:46 CDT CPT-Cryo Cryotherapy 15:12:03 CDT CPT-01619 LS spine AP and Lat - XRAY USE ONLY 10:31:51 CDT 07/27 CPT-65900 Punch biopsy 1 lsn 20:40:09 CDT CPT-G0008 Administration of Influenza Virus Vaccine 10:04:48 COMPUTER TECHNOLOGY TRAINER CPT-40404 Fluzone High-Dose Intramuscular Suspension 10:04:48 COMPUTER TECHNOLOGY TRAINER CPT-42117 Ribs unilat w PA chst min 3V 10:45:40 CDT CPT-LR Lesion Removal 13:14:55 CDT CPT-Cryo Cryotherapy 13:14:55 CDT CPT-19130 Venipuncture Draw Fee 10:25:49 CDT CPT-53444 Administration single or combination vaccine inc oral 13 :22:14 COMPUTER TECHNOLOGY TRAINER CPT-83474 Influenza High Dose age 65+ 13:22:14 COMPUTER TECHNOLOGY TRAINER
--- OUTSIDE RECORDS SUMMARY | 2016-12-06 08:51 | XMS REPORT | Clinical Summary ---
Author Author Admin, HILARIA Organization [employer] Address Unknown Phone Unavailable Allergies, Adverse Reactions, [...] Rib pain, left sided 786.50 Resolved Gareth Cancnio MD Unspecified chest pain Bronchitis-Acute 466.0 Inactive [...] po daily as needed for arthritis/pain PIROXICAM 46993532919 Active Gareth Cancino MD Active ZITHROMAX Z-RUBEN 250 MG TABS 2 today, then 1 daily for 4 days 2016 AZITHROMYCIN 06134918893 No Longer Active Tangelashar Forte Active FENTANYL 25 MCG/HR TRANS PT72 1 patch every 72 hours FENTANYL 01694911908 Active Mary Shah APRN Active PREDNISONE 20 MG TAB take 3 tabs daily for 3 days, 2 tabs daily for 3 days, 1 tab daily for 3 days, 1/2 tab daily for 4 days PREDNISONE 18449545503 No Longer Active Mary Shah APRN Active LEVAQUIN 500 MG TAB 1 tablet by mouth daily for 7 days LEVOFLOXACIN 13251126439 Active Marylennox Shah APRN Active AZITHROMYCIN 250 MG TABS 2 po qd x 1 day, then 1 po qd x 4 days AZITHROMYCIN 88297002271 No Longer Active Danuta Rian Active AZITHROMYCIN 250 MG TABS 2 po qd x 1 day, then 1 po qd x 4 days AZITHROMYCIN 61929472354 No Longer Active Tangela Forte Active HYDROCODONE-ACETAMINOPHEN 5-325 MG TABS 1 tab by mouth every 6 hours as needed for bck pain HYDROCODONE-ACETAMINOPHEN 56994783994 No Longer Active Gareth Cancino MD Active ALPRAZOLAM 0.25 MG TAB 1 tablet by mouth q hs prn ALPRAZOLAM 52328309383 Active Gareth Cancino MD Active AZITHROMYCIN 250 MG ORAL TABS 1 tab daily AZITHROMYCIN 34043727078 No Longer Active Gareth Cancino MD Active ZITHROMAX 250 MG TAB 2 po today, then 1 po q days 2-5 AZITHROMYCIN 49403670840 No Longer Active Tangela Raida Active IPRATROPIUM-ALBUTEROL 0.5-2.5 (3) MG/3ML INH SOLN nebulize 1 vial every 6hrs prn shortness of breath IPRATROPIUM-ALBUTEROL 39664265056 Active Gareth Cancino MD Active FENTANYL 25 MCG/HR PT72 Apply to clean, dry skin and change every 72 hours FENTANYL 61693639739 No Longer Active Gareth Cancino MD Active WELLBUTRIN SR 150 MG ORAL [id number] take 1 tab po BID BUPROPION HCL 08904544654 No Longer Active Gareth Cancino MD Active ZOFRAN 4 MG ORAL TABS 1 by mouth every 6 hours prn nausea ONDANSETRON HCL 52480542684 Active Tangela Forte Active TRAMADOL HCL 50 MG TABS 1 po tid PRN TRAMADOL HCL 11913836828 Active Gareth Cancino MD Active ALPRAZOLAM 0.25 MG TAB 1/2 to 1 tablet by mouth qhs prn ALPRAZOLAM 26348743548 No Longer Active Gareth Cancino MD Active CLOBETASOL PROPIONATE 0.05 % CREA apply to hand rash bid CLOBETASOL PROPIONATE 46679294226 No Longer Active Gareth Cancino MD Active BACTROBAN 2 % CREAM Apply to affected area BID MUPIROCIN CALCIUM 44679640074 No Longer Active Gareth Cancino MD Active LISINOPRIL 20 MG TABS 1 tablet by mouth daily for high blood pressure 10/14 LISINOPRIL 70860524660 Active Gareth Cancino MD Active BACTRIM DS 800-160 MG TAB 1 tab by mouth twice daily TRIMETHOPRIM-SULFAMETHOXAZOLE 40763050737 No Longer Active Gareth Cancino MD Active METOPROLOL SUCCINATE ER 100 MG [id number] 1 pill by mouth daily, for blood pressure METOPROLOL SUCCINATE 23855700228 Active Gareth Cancino MD Active KEFLEX 500 MG CAP 1 po TID x 10 days CEPHALEXIN 56736148599 No Longer Active Blanca Castillo APRN Active METOPROLOL SUCCINATE 50 MG TB24 1 tablet by mouth daily METOPROLOL SUCCINATE 90265597651 No Longer Active Gareth Cancino MD Active OMEPRAZOLE 20 MG TBEC Take one by mouth daily OMEPRAZOLE 09587789377 No Longer Active Gareth Cancino MD Active OMEPRAZOLE 40 MG CPDR 1 tab po qday for acid reflux. OMEPRAZOLE 98558462615 Active Mary Shah APRN Active LEVAQUIN 500 MG TAB 1 tablet by mouth daily LEVOFLOXACIN 81099409369 No Longer Active Gareth Cancino MD Active ALEVE 220 MG TAB 2 tab po qd NAPROXEN SODIUM 14278047067 Active Gareth Cancino MD Active ASPIRIN 81 MG CHEW TAB 1 tablet by mouth daily ASPIRIN 86303766901 Active Gareth Cancino MD Active VENTOLIN HFA 108 (90 BASE) MCG/ACT AERS 1-2 puffs four times a day PRN shortness of breath ALBUTEROL SULFATE 18303874055 Active Mary Shah APRN Active CENTRUM SILVER TABS 1 TAB PO DAILY MULTIPLE VITAMINS-MINERALS 69196977015 Active Gareth Cancino MD Active VITAMIN B12 100 MCG TABS 1 TAB PO DAILY CYANOCOBALAMIN 33223416284 Active Gareth Cancino MD Active CIPRO 500 MG TABS 1 TAB PO BID CIPROFLOXACIN HCL 47452341861 No Longer Active Gareth Cancino MD Active BACTRIM DS 800-160 MG TAB 1 tab by mouth twice daily TRIMETHOPRIM-SULFAMETHOXAZOLE 26374966776 No Longer Active Gareth Cancino MD Active PREDNISONE 20 MG TAB 1 tab po BID for 3 days, then 1 tab po qday for 3 days PREDNISONE 45308051046 No Longer Active Gareth Cancino MD Active FOLIC ACID 800 MCG TABS Take one by mouth daily FOLIC ACID 16545344751 No Longer Active Gareth Cancino MD Active VITAMIN B-6 250 MG TABS Take one by mouth daily PYRIDOXINE HCL 43886652318 No Longer Active Gareth Cancino MD Active B-12 1000 MCG CAPS Take one by mouth daily CYANOCOBALAMIN 89482239394 No Longer Active Gareth Cancino MD Active DOXYCYCLINE HYCLATE 100 MG CAP 1 cap by mouth twice daily DOXYCYCLINE HYCLATE 84460496025 No Longer Active Gareth Cancino MD Active PREDNISONE 20 MG TAB 1 po bid 3 days, then 1 po q day 3 days 2011 PREDNISONE 24508115083 No Longer Active Gareth Cancino MD Active CHANTIX STARTING MONTH RUBEN 0.5 MG X 11 & 1 MG X 42 TABS 0.5mg daily for 3 days , then 0.5mg BID for 4 days, then 1mg BID VARENICLINE TARTRATE 23263325917 No Longer Active Gareth Cancino MD Active SIMVASTATIN 40 MG TABS Take one by mouth daily SIMVASTATIN 51294131822 Active Gareth Cancino MD Active TRIAMTERENE-HCTZ 37.5-25 MG CAPS Take one by mouth daily TRIAMTERENE- HCTZ 07147630484 Active Mary Shah APRN Active CHANTIX STARTING [...] 3 days 2011 PREDNISONE 20 MG TAB 696904 PREDNISONE Inactive DOXYCYCLINE HYCLATE 100 MG CAP 1 cap by mouth twice daily DOXYCYCLINE HYCLATE 100 MG CAP 9614434 DOXYCYCLINE HYCLATE Inactive B-12 1000 MCG CAPS Take one by mouth daily B-12 1000 MCG CAPS CYANOCOBALAMIN Inactive VITAMIN B-6 250 MG TABS Take one by mouth daily VITAMIN B-6 250 MG TABS PYRIDOXINE HCL Inactive FOLIC ACID 800 MCG TABS Take one by mouth daily FOLIC ACID 800 MCG TABS 919186 FOLIC ACID Inactive CIPRO 500 MG TABS 1 TAB PO BID CIPRO 500 MG TABS 719277 CIPROFLOXACIN HCL Inactive OMEPRAZOLE 20 MG TBEC Take one by mouth daily OMEPRAZOLE 20 MG [facility] 715705 OMEPRAZOLE Inactive METOPROLOL SUCCINATE 50 MG TB24 1 tablet by mouth daily METOPROLOL SUCCINATE 50 MG TB24 METOPROLOL SUCCINATE Inactive BACTROBAN 2 % CREAM Apply to affected area BID BACTROBAN 2 % CREAM 699551 MUPIROCIN CALCIUM Inactive CLOBETASOL PROPIONATE 0.05 % CREA apply to hand rash bid CLOBETASOL PROPIONATE 0.05 % CREA 918349 CLOBETASOL PROPIONATE Inactive ALPRAZOLAM 0.25 MG TAB 1/2 to 1 tablet by mouth qhs prn ALPRAZOLAM 0.25 MG TAB 380191 ALPRAZOLAM Inactive WELLBUTRIN SR 150 MG ORAL [id number] take 1 tab po BID WELLBUTRIN SR 150 MG ORAL [id number] BUPROPION HCL Inactive AZITHROMYCIN 250 MG ORAL TABS 1 tab daily AZITHROMYCIN 250 MG ORAL TABS 0868446 AZITHROMYCIN Inactive HYDROCODONE-ACETAMINOPHEN 5-325 MG TABS 1 tab by mouth every 6 hours as needed for bck pain HYDROCODONE-ACETAMINOPHEN 5-325 MG TABS 282475 HYDROCODONE-ACETAMINOPHEN Inactive PREDNISONE 20 MG TAB 1 tab po BID for 3 days, then 1 tab po qday for 3 days PREDNISONE 20 MG TAB 036054 PREDNISONE Inactive BACTRIM DS 800-160 MG TAB 1 tab by mouth twice daily BACTRIM DS 800-160 MG TAB 721984 TRIMETHOPRIM-SULFAMETHOXAZOLE Inactive LEVAQUIN 500 MG TAB 1 tablet by mouth daily LEVAQUIN 500 MG TAB 053236 LEVOFLOXACIN Inactive KEFLEX 500 MG CAP 1 po TID x 10 days KEFLEX 500 MG CAP 569677 CEPHALEXIN Inactive BACTRIM DS 800-160 MG TAB 1 tab by mouth twice daily BACTRIM DS 800-160 MG TAB 596321 TRIMETHOPRIM-SULFAMETHOXAZOLE Inactive FENTANYL 25 MCG/HR PT72 Apply to clean, dry skin and change every 72 hours FENTANYL 25 MCG/HR PT72 457193 FENTANYL Inactive ZITHROMAX 250 MG TAB 2 po today, then 1 po q days 2-5 ZITHROMAX 250 MG TAB 6746288 AZITHROMYCIN Inactive AZITHROMYCIN 250 MG TABS 2 po qd x 1 day, then 1 po qd x 4 days AZITHROMYCIN 250 MG TABS 9285751 AZITHROMYCIN Inactive AZITHROMYCIN 250 MG TABS 2 po qd x 1 day, then 1 po qd x 4 days AZITHROMYCIN 250 MG TABS 2834860 AZITHROMYCIN Inactive PREDNISONE 20 MG TAB take 3 tabs daily for 3 days, 2 tabs daily for 3 days, 1 tab daily for 3 days, 1/2 tab daily for 4 days PREDNISONE 20 MG TAB 377623 PREDNISONE Inactive ZITHROMAX Z-RUBEN 250 MG TABS 2 today, then 1 daily for 4 days 2016 ZITHROMAX Z-RUBEN 250 MG TABS 5299509 AZITHROMYCIN Inactive Vital Signs Date Name Value [...] Panel - Chemistry sodium, serum 133 mmol/L 083-659 4842/08/24 potassium, serum 4.4 mmol/L 3.5-5.2 chloride, serum 95 mmol/L 98-107 carbon dioxide, venous blood 33.0 mmol/L 21.0-32.0 blood glucose 107 mg/dL 65-110 calcium, serum 8.8 mg/dL 8.5-10.1 urea nitrogen, blood 12 mg/dL 7-18 creatinine, serum 0.69 mg/dL 0.55-1.30 Lab Report: CBC, Basic Metabolic Panel - Chemistry sodium, serum 132 mmol/L 422-859 8257/10/12 potassium, serum 4.7 mmol/L 3.5-5.2 chloride, serum [...] CBC - Chemistry sodium, serum 136 mmol/L 059-697 6827/11/01 carbon dioxide, venous blood 32.1 mmol/L 21.0-32.0 [...] PANEL - Chemistry cholesterol, serum 169 mg/dL 449-592 2653/05/09 HDL cholesterol, serum 54 mg/dL > OR=46 [...] mg/dL Encounters Code Encounter Date Provider Facility CPT-57857 Level 4 Est. Patient 07:23:02 CDT Gareth Cancino MD [facility] CPT-03750 Level 3 Est. Patient 09:05:25 POULTRY INSPECTOR Mary Shah APRN [facility] CPT-79509 Level 3 Est. Patient 20:53:25 POULTRY INSPECTOR Gareth Cancino MD [facility] CPT-99380 Level 3 Est. Patient 10:34:55 CDT Gareth Cancino MD [facility] CPT-55405 Level 4 Est. Patient 09:00:18 CDT Gareth Cancino MD [facility] CPT-00141 Level 3 Est. Patient 15:12:03 CDT Gareth Cancino MD [facility] CPT-01234 Level 3 Est. Patient 23:08:20 CDT Gareth Cancino MD [facility] CPT-50692 Level 4 Est. Patient 20:40:10 CDT Gareth Cancino MD [facility] CPT-67573 Level 4 Est. Patient 19:50:11 CDT Gareth Cancino MD [facility] CPT-13130 Level 3 Est. Patient 11:00:13 CDT Gareth Cancino MD [facility] CPT-99933 Level 4 Est. Patient 11:20:21 CDT Gareth Cancino MD [facility] CPT-39895 Level 4 Est. Patient 09:22:18 POULTRY INSPECTOR Gareth Cancino MD [facility] CPT-61534 Level 3 Est. Patient 09:48:04 CDT Gareth Cancino MD [facility] CPT-38913 Level 3 Est. Patient 10:13:16 CDT Gareth Cancino MD [facility] CPT-98366 Level 2 Est. Patient 18:36:56 CDT Gareth Cancino MD [facility] CPT-21529 Level 4 Est. Patient 13:50:53 CDT Gareth Cancino MD [facility] CPT-97739 Level 3 Est. Patient 14:58:33 POULTRY INSPECTOR Gareth Cancino MD [facility] CPT-49360 Level 4 Est. Patient 09:25:57 CDT Gareth Cancino MD [facility] CPT-18743 Level 3 Est. Patient 20:39:33 CDT Noman Edwards DO [facility] CPT-18902 Level 2 Est. Patient 13:17:39 CDT Gareth Cancino MD [facility] CPT-52931 Level 3 Est. Patient 13:37:20 CDT Gareth Cancino MD [facility] CPT-81131 Level 3 Est. Patient 18:09:08 CDT Gareth Cancino MD [facility] CPT-42542 Level 4 Est. Patient 09:59:07 CDT Gareth Cancino MD [facility] Procedures Code Procedure Name Date Entry Date Standard Description CPT-000 Give Appropriate Flu Vaccine 09:29:52 POULTRY INSPECTOR CPT-000 Give Appropriate Flu Vaccine 09:22:20 POULTRY INSPECTOR CPT-21563 TSH - LAB USE ONLY 08:11:40 POULTRY INSPECTOR CPT-61223 Free T4 - LAB USE ONLY 08:11:40 POULTRY INSPECTOR CPT-44632 Venipuncture Draw Fee 08:11:40 POULTRY INSPECTOR CPT-29614 UA w micro - LAB USE ONLY 14:26:22 POULTRY INSPECTOR CPT-G0438 Initial Annual Wellness Exam 20:53:25 POULTRY INSPECTOR CPT-G0009 Administration of Pneumococcal Vaccine 11:42:53 POULTRY INSPECTOR CPT-39116 Prevnar 13 Intramuscular Suspension 11:42:53 POULTRY INSPECTOR 01/07 CPT-45733 First Vx - Ix admin for Medicare patients 11:39:44 POULTRY INSPECTOR CPT-36961 Fluzone High-Dose Intramuscular Suspension 11:39:44 POULTRY INSPECTOR CPT-48292 Prevnar 13 Intramuscular Suspension 09:29:52 POULTRY INSPECTOR 01/07 CPT-05784 CMP - LAB USE ONLY 16:31:15 CDT CPT-02598 CBC - LAB USE ONLY 16:31:14 CDT CPT-70823 Venipuncture Draw Fee 16:31:14 CDT CPT-61738 BMP - LAB USE ONLY 14:37:27 CDT CPT-98128 CBC - LAB USE ONLY 14:37:27 CDT CPT-06481 Venipuncture Draw Fee 14:37:27 CDT CPT-TCMM Transitional Care Mgmt-Moderate 14:43:38 CDT CPT-79999 Venipuncture Draw Fee 10:33:47 CDT CPT-18211 BMP - LAB USE ONLY 10:33:46 CDT CPT-Cryo Cryotherapy 15:12:03 CDT CPT-33386 LS spine AP and Lat - XRAY USE ONLY 10:31:51 CDT 07/27 CPT-96456 Punch biopsy 1 lsn 20:40:09 CDT CPT-G0008 Administration of Influenza Virus Vaccine 10:04:48 POULTRY INSPECTOR CPT-08985 Fluzone High-Dose Intramuscular Suspension 10:04:48 POULTRY INSPECTOR CPT-53517 Ribs unilat w PA chst min 3V 10:45:40 CDT CPT-LR Lesion Removal 13:14:55 CDT CPT-Cryo Cryotherapy 13:14:55 CDT CPT-11222 Venipuncture Draw Fee 10:25:49 CDT CPT-21099 Administration single or combination vaccine inc oral 13 :22:14 POULTRY INSPECTOR CPT-70992 Influenza High Dose age 65+ 13:22:14 POULTRY INSPECTOR
--- OUTSIDE RECORDS SUMMARY | 2016-12-06 08:52 | XMS REPORT | Clinical Summary ---
Author Author Admin, HILARIA Organization [employer] Address Unknown Phone Unavailable Allergies, Adverse Reactions, [...] hours as needed for bck pain HYDROCODONE-ACETAMINOPHEN 88476508888 No Longer Active Gareth Cancino MD Active FENTANYL 12 MCG/HR PT72 Apply to clean, dry skin and change every 72 hours FENTANYL 36382973048 Active Gareth Cancino MD Active ALPRAZOLAM 0.25 MG TAB 1 tablet by mouth q hs prn ALPRAZOLAM 85326272277 Active Gareth Cancino MD Active AZITHROMYCIN 250 MG ORAL TABS 1 tab daily AZITHROMYCIN 78393208802 No Longer Active Gareth Cancino MD Active ZITHROMAX 250 MG TAB 2 po today, then 1 po q days 2-5 AZITHROMYCIN 82995798394 No Longer Active Tangela Forte Active IPRATROPIUM-ALBUTEROL 0.5-2.5 (3) MG/3ML INH SOLN nebulize 1 vial every 6hrs prn shortness of breath IPRATROPIUM-ALBUTEROL 13013397241 Active Gareth Cancion MD Active FENTANYL 25 MCG/HR PT72 Apply to clean, dry skin and change every 72 hours FENTANYL 46222933487 No Longer Active Gareth Cancino MD Active WELLBUTRIN SR 150 MG ORAL [id number] take 1 tab po BID BUPROPION HCL 51347529086 No Longer Active Gareth Cancino MD Active ZOFRAN 4 MG ORAL TABS 1 by mouth every 6 hours prn nausea ONDANSETRON HCL 04348537610 Active Tangela Forte Active TRAMADOL HCL 50 MG TABS 1 po tid PRN TRAMADOL HCL 79730410393 Active Gareth Cancino MD Active ALPRAZOLAM 0.25 MG TAB 1/2 to 1 tablet by mouth qhs prn ALPRAZOLAM 44425406178 No Longer Active Gareth Cancino MD Active CLOBETASOL PROPIONATE 0.05 % CREA apply to hand rash bid CLOBETASOL PROPIONATE 84100854640 No Longer Active Gareth Cancino MD Active BACTROBAN 2 % CREAM Apply to affected area BID MUPIROCIN CALCIUM 71476820363 No Longer Active Gareth Cancino MD Active LISINOPRIL 20 MG TABS 1 tablet by mouth daily for high blood pressure 10/14 LISINOPRIL 25111818094 Active Gareth Cancino MD Active BACTRIM DS 800-160 MG TAB 1 tab by mouth twice daily TRIMETHOPRIM-SULFAMETHOXAZOLE 75450013376 No Longer Active Gareth Cancino MD Active METOPROLOL SUCCINATE ER 100 MG [id number] 1 pill by mouth daily, for blood pressure METOPROLOL SUCCINATE 97653646475 Active Gareth Cancino MD Active KEFLEX 500 MG CAP 1 po TID x 10 days CEPHALEXIN 42508844288 No Longer Active Blanca Castillo APRN Active METOPROLOL SUCCINATE 50 MG TB24 1 tablet by mouth daily METOPROLOL SUCCINATE 14464232217 No Longer Active Gareth Cancino MD Active OMEPRAZOLE 20 MG TBEC Take one by mouth daily OMEPRAZOLE 08989524836 No Longer Active Gareth Cancino MD Active OMEPRAZOLE 40 MG CPDR 1 tab po qday for acid reflux. OMEPRAZOLE 03795535377 Active Mary Shah APRN Active LEVAQUIN 500 MG TAB 1 tablet by mouth daily LEVOFLOXACIN 62151455107 No Longer Active Gareth Cancino MD Active ALEVE 220 MG TAB 2 tab po qd NAPROXEN SODIUM 22166449383 Active Gareth Cancino MD Active ASPIRIN 81 MG CHEW TAB 1 tablet by mouth daily ASPIRIN 64748260085 Active Gareth Cancino MD Active VENTOLIN HFA 108 (90 BASE) MCG/ACT AERS 1-2 puffs four times a day PRN shortness of breath ALBUTEROL SULFATE 58181832250 Active Mary Shah APRN Active CENTRUM SILVER TABS 1 TAB PO DAILY MULTIPLE VITAMINS-MINERALS 85467194887 Active Gareth Cancino MD Active VITAMIN B12 100 MCG TABS 1 TAB PO DAILY CYANOCOBALAMIN 54291433861 Active Gareth Cancino MD Active CIPRO 500 MG TABS 1 TAB PO BID CIPROFLOXACIN HCL 88373243829 No Longer Active Gareth Cancino MD Active BACTRIM DS 800-160 MG TAB 1 tab by mouth twice daily TRIMETHOPRIM-SULFAMETHOXAZOLE 18409537167 No Longer Active Gareth Cancino MD Active PREDNISONE 20 MG TAB 1 tab po BID for 3 days, then 1 tab po qday for 3 days PREDNISONE 54131745784 No Longer Active Gareth Cancino MD Active FOLIC ACID 800 MCG TABS Take one by mouth daily FOLIC ACID 76083004648 No Longer Active Gareth Cancino MD Active VITAMIN B-6 250 MG TABS Take one by mouth daily PYRIDOXINE HCL 06605447556 No Longer Active Gareth Cancino MD Active B-12 1000 MCG CAPS Take one by mouth daily CYANOCOBALAMIN 83743783622 No Longer Active Gareth Cancino MD Active DOXYCYCLINE HYCLATE 100 MG CAP 1 cap by mouth twice daily DOXYCYCLINE HYCLATE 00948997373 No Longer Active Gareht Cancino MD Active PREDNISONE 20 MG TAB 1 po bid 3 days, then 1 po q day 3 days 2011 PREDNISONE 61638594912 No Longer Active Gareth Cancino MD Active CHANTIX STARTING MONTH RUBEN 0.5 MG X 11 & 1 MG X 42 TABS 0.5mg daily for 3 days , then 0.5mg BID for 4 days, then 1mg BID VARENICLINE TARTRATE 05047149210 No Longer Active Gareth Cancino MD Active SIMVASTATIN 40 MG TABS Take one by mouth daily SIMVASTATIN 93506262183 Active Gareth Cancino MD Active TRIAMTERENE-HCTZ 37.5-25 MG CAPS Take one by mouth daily TRIAMTERENE- HCTZ 52281573290 Active Gareth Cancino MD Active CHANTIX STARTING [...] 3 days 2011 PREDNISONE 20 MG TAB 425543 PREDNISONE Inactive DOXYCYCLINE HYCLATE 100 MG CAP 1 cap by mouth twice daily DOXYCYCLINE HYCLATE 100 MG CAP 9314281 DOXYCYCLINE HYCLATE Inactive B-12 1000 MCG CAPS Take one by mouth daily B-12 1000 MCG CAPS CYANOCOBALAMIN Inactive VITAMIN B-6 250 MG TABS Take one by mouth daily VITAMIN B-6 250 MG TABS PYRIDOXINE HCL Inactive FOLIC ACID 800 MCG TABS Take one by mouth daily FOLIC ACID 800 MCG TABS 044872 FOLIC ACID Inactive CIPRO 500 MG TABS 1 TAB PO BID CIPRO 500 MG TABS 135661 CIPROFLOXACIN HCL Inactive OMEPRAZOLE 20 MG TBEC Take one by mouth daily OMEPRAZOLE 20 MG TBEC 635626 OMEPRAZOLE Inactive METOPROLOL SUCCINATE 50 MG TB24 1 tablet by mouth daily METOPROLOL SUCCINATE 50 MG TB24 METOPROLOL SUCCINATE Inactive BACTROBAN 2 % CREAM Apply to affected area BID BACTROBAN 2 % CREAM 365338 MUPIROCIN CALCIUM Inactive CLOBETASOL PROPIONATE 0.05 % CREA apply to hand rash bid CLOBETASOL PROPIONATE 0.05 % CREA 954940 CLOBETASOL PROPIONATE Inactive ALPRAZOLAM 0.25 MG TAB 1/2 to 1 tablet by mouth qhs prn ALPRAZOLAM 0.25 MG TAB 979695 ALPRAZOLAM Inactive WELLBUTRIN SR 150 MG ORAL [id number] take 1 tab po BID WELLBUTRIN SR 150 MG ORAL [id number] BUPROPION HCL Inactive AZITHROMYCIN 250 MG ORAL TABS 1 tab daily AZITHROMYCIN 250 MG ORAL TABS 5523058 AZITHROMYCIN Inactive HYDROCODONE-ACETAMINOPHEN 5-325 MG TABS 1 tab by mouth every 6 hours as needed for bck pain HYDROCODONE-ACETAMINOPHEN 5-325 MG TABS 931031 HYDROCODONE-ACETAMINOPHEN Inactive PREDNISONE 20 MG TAB 1 tab po BID for 3 days, then 1 tab po qday for 3 days PREDNISONE 20 MG TAB 189116 PREDNISONE Inactive BACTRIM DS 800-160 MG TAB 1 tab by mouth twice daily BACTRIM DS 800-160 MG TAB 392434 TRIMETHOPRIM-SULFAMETHOXAZOLE Inactive LEVAQUIN 500 MG TAB 1 tablet by mouth daily LEVAQUIN 500 MG TAB 322675 LEVOFLOXACIN Inactive KEFLEX 500 MG CAP 1 po TID x 10 days KEFLEX 500 MG CAP 806810 CEPHALEXIN Inactive BACTRIM DS 800-160 MG TAB 1 tab by mouth twice daily BACTRIM DS 800-160 MG TAB 004570 TRIMETHOPRIM-SULFAMETHOXAZOLE Inactive FENTANYL 25 MCG/HR PT72 Apply to clean, dry skin and change every 72 hours FENTANYL 25 MCG/HR PT72 786380 FENTANYL Inactive ZITHROMAX 250 MG TAB 2 po today, then 1 po q days 2-5 ZITHROMAX 250 MG TAB 4028589 AZITHROMYCIN Inactive Vital Signs Date Name Value [...] Panel - Chemistry sodium, serum 133 mmol/L 690-665 6411/08/24 potassium, serum 4.4 mmol/L 3.5-5.2 chloride, serum 95 mmol/L 98-107 carbon dioxide, venous blood 33.0 mmol/L 21.0-32.0 blood glucose 107 mg/dL 65-110 calcium, serum 8.8 mg/dL 8.5-10.1 urea nitrogen, blood 12 mg/dL 7-18 creatinine, serum 0.69 mg/dL 0.55-1.30 Lab Report: CBC, Basic Metabolic Panel - Chemistry sodium, serum 132 mmol/L 989-889 2237/10/12 potassium, serum 4.7 mmol/L 3.5-5.2 chloride, serum [...] CBC - Chemistry sodium, serum 136 mmol/L 451-757 8801/11/01 carbon dioxide, venous blood 32.1 mmol/L 21.0-32.0 [...] 5.0-8.5 Encounters Code Encounter Date Provider Facility CPT-81614 Level 3 Est. Patient 20:53:25 CHOKE REAMER Gareth Cancino MD [facility] CPT-95379 Level 3 Est. Patient 10:34:55 CDT Gareth Cancino MD [facility] CPT-76469 Level 4 Est. Patient 09:00:18 CDT Gareth Cancino MD [facility] CPT-00242 Level 3 Est. Patient 15:12:03 CDT Gareth Cancino MD [facility] CPT-89483 Level 3 Est. Patient 23:08:20 CDT Gareth Cancino MD [facility] CPT-21553 Level 4 Est. Patient 20:40:10 CDT Gareth Cancino MD [facility] CPT-10023 Level 4 Est. Patient 19:50:11 CDT Gareth Cancino MD [facility] CPT-26721 Level 3 Est. Patient 11:00:13 CDT Gareth Cancino MD [facility] CPT-39545 Level 4 Est. Patient 11:20:21 CDT Gareth Cancino MD [facility] CPT-94690 Level 4 Est. Patient 09:22:18 CHOKE REAMER Gareth Cancino MD [facility] CPT-53283 Level 3 Est. Patient 09:48:04 CDT Gareth Cancino MD [facility] CPT-02679 Level 3 Est. Patient 10:13:16 CDT Gareth Cancino MD [facility] CPT-38903 Level 2 Est. Patient 18:36:56 CDT Gareth Cancino MD [facility] CPT-04912 Level 4 Est. Patient 13:50:53 CDT Gareth Cancino MD [facility] CPT-65833 Level 3 Est. Patient 14:58:33 CHOKE REAMER Gareth Cancino MD [facility] CPT-49974 Level 4 Est. Patient 09:25:57 CDT Gareth Cancino MD [facility] CPT-56275 Level 3 Est. Patient 20:39:33 CDT Noman Edwards DO [facility] CPT-47718 Level 2 Est. Patient 13:17:39 CDT Gareth Cancino MD [facility] CPT-41589 Level 3 Est. Patient 13:37:20 CDT Gareth Cancino MD [facility] CPT-66825 Level 3 Est. Patient 18:09:08 CDT Gareth Cancino MD [facility] CPT-75992 Level 4 Est. Patient 09:59:07 CDT Gareth Cancino MD [facility] Procedures Code Procedure Name Date Entry Date Standard Description CPT-56609 UA w micro - LAB USE ONLY 14:26:22 CHOKE REAMER CPT-G0438 Initial Annual Wellness Exam 20:53:25 CHOKE REAMER CPT-G0009 Administration of Pneumococcal Vaccine 11:42:53 CHOKE REAMER CPT-26632 Prevnar 13 Intramuscular Suspension 11:42:53 CHOKE REAMER 01/07 CPT-07655 First Vx - Ix admin for Medicare patients 11:39:44 CHOKE REAMER CPT-75603 Fluzone High-Dose Intramuscular Suspension 11:39:44 CHOKE REAMER CPT-33433 Prevnar 13 Intramuscular Suspension 09:29:52 CHOKE REAMER 01/07 CPT-85318 CMP - LAB USE ONLY 16:31:15 CDT CPT-78645 CBC - LAB USE ONLY 16:31:14 CDT CPT-56855 Venipuncture Draw Fee 16:31:14 CDT CPT-71129 BMP - LAB USE ONLY 14:37:27 CDT CPT-47389 CBC - LAB USE ONLY 14:37:27 CDT CPT-63818 Venipuncture Draw Fee 14:37:27 CDT CPT-TCMM Transitional Care Mgmt-Moderate 14:43:38 CDT CPT-04560 Venipuncture Draw Fee 10:33:47 CDT CPT-14059 BMP - LAB USE ONLY 10:33:46 CDT CPT-Cryo Cryotherapy 15:12:03 CDT CPT-25466 LS spine AP and Lat - XRAY USE ONLY 10:31:51 CDT 07/27 CPT-47715 Punch biopsy 1 lsn 20:40:09 CDT CPT-G0008 Administration of Influenza Virus Vaccine 10:04:48 CHOKE REAMER CPT-71122 Fluzone High-Dose Intramuscular Suspension 10:04:48 CHOKE REAMER CPT-49808 Ribs unilat w PA chst min 3V 10:45:40 CDT CPT-LR Lesion Removal 13:14:55 CDT CPT-Cryo Cryotherapy 13:14:55 CDT CPT-75499 Venipuncture Draw Fee 10:25:49 CDT CPT-41916 Administration single or combination vaccine inc oral 13 :22:14 CHOKE REAMER CPT-67919 Influenza High Dose age 65+ 13:22:14 CHOKE REAMER
--- OUTSIDE RECORDS SUMMARY | 2016-12-06 08:53 | XMS REPORT | Clinical Summary ---
Author Author Admin, HILARIA Organization [employer] Address Unknown Phone Unavailable Allergies, Adverse Reactions, [...] cause Skin lesion 709.9 Active Blanca Castillo LOG LOADER Unspecified disorder of skin and subcutaneous tissue Folliculitis 704.8 Active Gareth Cancino MD Other specified diseases of hair and hair follicles Low back pain, chronic 724.2 Active Gareth Cancino MD Lumbago Frequency of urination 788.41 Active Negin Garcia OPERATIONS MANAGER ASSISTANT Urinary frequency Actinic keratosis 702.0 Active Gareth Cancino MD Actinic keratosis Bronchitis-Acute ICD-466.0 Inactive Gareth Cancino MD Medication List Medication Instructions Start Date Stop Date Generic Name ND Status Provider Patient Instruction TRAMADOL HCL 50 MG TABS 1 po tid PRN TRAMADOL HCL 00693610662 Active Danuta Rian Active HYDROCODONE-ACETAMINOPHEN 5-325 MG TABS 1 tab by mouth every 6 hours as needed for bck pain HYDROCODONE-ACETAMINOPHEN 16554790428 Active Gareth Cancino MD Active ALPRAZOLAM 0.25 MG TAB 1/2 to 1 tablet by mouth qhs prn ALPRAZOLAM 76372525889 No Longer Active Gareth Cancino MD Active CLOBETASOL PROPIONATE 0.05 % CREA apply to hand rash bid CLOBETASOL PROPIONATE 61730889959 No Longer Active Gareth Cancino MD Active BACTROBAN 2 % CREAM Apply to affected area BID MUPIROCIN CALCIUM 50097303045 No Longer Active Gareth Cancino MD Active LISINOPRIL 20 MG TABS 1 tablet by mouth daily for high blood pressure 10/14 LISINOPRIL 98033393629 Active Gareth Cancino MD Active BACTRIM DS 800-160 MG TAB 1 tab by mouth twice daily TRIMETHOPRIM-SULFAMETHOXAZOLE 20615361121 No Longer Active Gareth Cancino MD Active METOPROLOL SUCCINATE ER 100 MG [id number] 1 pill by mouth daily, for blood pressure METOPROLOL SUCCINATE 42355745537 Active Gareth Cancino MD Active KEFLEX 500 MG CAP 1 po TID x 10 days CEPHALEXIN 65576639950 No Longer Active Blanca Castillo APRN Active WELLBUTRIN SR 150 MG ORAL [id number] take 1 tab po BID BUPROPION HCL 47684251685 Active Gareth aCncino MD Active METOPROLOL SUCCINATE 50 MG TB24 1 tablet by mouth daily METOPROLOL SUCCINATE 81269394150 No Longer Active Gareth Cancino MD Active OMEPRAZOLE 20 MG TBEC Take one by mouth daily OMEPRAZOLE 93844154539 No Longer Active Gareth Cancino MD Active OMEPRAZOLE 40 MG CPDR 1 tab po qday for acid reflux. OMEPRAZOLE 55021281226 Active Mary Shah APRN Active LEVAQUIN 500 MG TAB 1 tablet by mouth daily LEVOFLOXACIN 30618726764 No Longer Active Gareth Cancino MD Active ALEVE 220 MG TAB 2 tab po qd NAPROXEN SODIUM 31574134372 Active Gareth Cancino MD Active ASPIRIN 81 MG CHEW TAB 1 tablet by mouth daily ASPIRIN 47965326218 Active Gareth Cancino MD Active VENTOLIN HFA 108 (90 BASE) MCG/ACT AERS 1-2 puffs four times a day PRN shortness of breath ALBUTEROL SULFATE 41210965315 Active Mary Shah APRN Active CENTRUM SILVER TABS 1 TAB PO DAILY MULTIPLE VITAMINS-MINERALS 42780860373 Active Gareth Cancino MD Active VITAMIN B12 100 MCG TABS 1 TAB PO DAILY CYANOCOBALAMIN 35099560644 Active Gareth Cancino MD Active CIPRO 500 MG TABS 1 TAB PO BID CIPROFLOXACIN HCL 08771376238 No Longer Active Gareth Cancino MD Active BACTRIM DS 800-160 MG TAB 1 tab by mouth twice daily TRIMETHOPRIM-SULFAMETHOXAZOLE 98739802796 No Longer Active Gareth Cancino MD Active PREDNISONE 20 MG TAB 1 tab po BID for 3 days, then 1 tab po qday for 3 days PREDNISONE 05657200365 No Longer Active Gareth Cancino MD Active FOLIC ACID 800 MCG TABS Take one by mouth daily FOLIC ACID 60125673015 No Longer Active Gareth Cancino MD Active VITAMIN B-6 250 MG TABS Take one by mouth daily PYRIDOXINE HCL 25399699953 No Longer Active Gareth Cancino MD Active B-12 1000 MCG CAPS Take one by mouth daily CYANOCOBALAMIN 20436813723 No Longer Active Gareth Cancino MD Active DOXYCYCLINE HYCLATE 100 MG CAP 1 cap by mouth twice daily DOXYCYCLINE HYCLATE 30501961411 No Longer Active Gareth Cancino MD Active PREDNISONE 20 MG TAB 1 po bid 3 days, then 1 po q day 3 days 2011 PREDNISONE 08872026174 No Longer Active Gareth Cancino MD Active CHANTIX STARTING MONTH RUBEN 0.5 MG X 11 & 1 MG X 42 TABS 0.5mg daily for 3 days , then 0.5mg BID for 4 days, then 1mg BID VARENICLINE TARTRATE 84514154624 No Longer Active Gareth Cancino MD Active SIMVASTATIN 40 MG TABS Take one by mouth daily SIMVASTATIN 87949141985 Active Gareth Cancino MD Active TRIAMTERENE-HCTZ 37.5-25 MG CAPS Take one by mouth daily TRIAMTERENE- HCTZ 77005028546 Active Gareth Cancino MD Active CHANTIX STARTING [...] 3 days 2011 PREDNISONE 20 MG TAB 607063 PREDNISONE Inactive DOXYCYCLINE HYCLATE 100 MG CAP 1 cap by mouth twice daily DOXYCYCLINE HYCLATE 100 MG CAP 6322353 DOXYCYCLINE HYCLATE Inactive B-12 1000 MCG CAPS Take one by mouth daily B-12 1000 MCG CAPS CYANOCOBALAMIN Inactive VITAMIN B-6 250 MG TABS Take one by mouth daily VITAMIN B-6 250 MG TABS PYRIDOXINE HCL Inactive FOLIC ACID 800 MCG TABS Take one by mouth daily FOLIC ACID 800 MCG TABS 355867 FOLIC ACID Inactive CIPRO 500 MG TABS 1 TAB PO BID CIPRO 500 MG TABS 332448 CIPROFLOXACIN HCL Inactive OMEPRAZOLE 20 MG TBEC Take one by mouth daily OMEPRAZOLE 20 MG TBEC 954992 OMEPRAZOLE Inactive METOPROLOL SUCCINATE 50 MG TB24 1 tablet by mouth daily METOPROLOL SUCCINATE 50 MG TB24 METOPROLOL SUCCINATE Inactive BACTROBAN 2 % CREAM Apply to affected area BID BACTROBAN 2 % CREAM 848255 MUPIROCIN CALCIUM Inactive CLOBETASOL PROPIONATE 0.05 % CREA apply to hand rash bid CLOBETASOL PROPIONATE 0.05 % CREA 732854 CLOBETASOL PROPIONATE Inactive ALPRAZOLAM 0.25 MG TAB 1/2 to 1 tablet by mouth qhs prn ALPRAZOLAM 0.25 MG TAB 237649 ALPRAZOLAM Inactive PREDNISONE 20 MG TAB 1 tab po BID for 3 days, then 1 tab po qday for 3 days PREDNISONE 20 MG TAB 325117 PREDNISONE Inactive BACTRIM DS 800-160 MG TAB 1 tab by mouth twice daily BACTRIM DS 800-160 MG TAB 814407 TRIMETHOPRIM-SULFAMETHOXAZOLE Inactive LEVAQUIN 500 MG TAB 1 tablet by mouth daily LEVAQUIN 500 MG TAB 846866 LEVOFLOXACIN Inactive KEFLEX 500 MG CAP 1 po TID x 10 days KEFLEX 500 MG CAP 195845 CEPHALEXIN Inactive BACTRIM DS 800-160 MG TAB 1 tab by mouth twice daily BACTRIM DS 800-160 MG TAB 943515 TRIMETHOPRIM-SULFAMETHOXAZOLE Inactive Vital Signs Date Name Value [...] Panel - Chemistry sodium, serum 133 mmol/L 094-724 1004/08/24 potassium, serum 4.4 mmol/L 3.5-5.2 chloride, serum 95 mmol/L 98-107 carbon dioxide, venous blood 33.0 mmol/L 21.0-32.0 blood glucose 107 mg/dL 65-110 calcium, serum 8.8 mg/dL 8.5-10.1 urea nitrogen, blood 12 mg/dL 7-18 creatinine, serum 0.69 mg/dL 0.55-1.30 Lab Report: Lipid Panel, Comp. Metabolic Panel, CBC W/DIFF, MICROALB/CRE ... - Chemistry albumin/creatinine ratio, urine < 30 mg/g mg/g{creat} 0-29 cholesterol, serum 195 mg/dL 814-077 3483/12/02 triglyceride, serum, fasting 74 mg/dL 30-200 HDL cholesterol, serum 52 mg/dL 32-96 LDL cholesterol, serum 128 mg/dL 0-130 sodium, serum 134 mmol/L 907-344 9317/12/02 carbon dioxide, venous blood 30.3 mmol/L 21.0-32.0 [...] 5.0-8.5 Encounters Code Encounter Date Provider Facility CPT-58646 Level 4 Est. Patient 09:00:18 CDT Gareth Cancino MD [facility] CPT-77598 Level 3 Est. Patient 15:12:03 CDT Gareth Cancino MD [facility] CPT-05150 Level 3 Est. Patient 23:08:20 CDT Gareth Cancino MD [facility] CPT-38140 Level 4 Est. Patient 20:40:10 CDT Gareth Cancino MD [facility] CPT-88225 Level 4 Est. Patient 19:50:11 CDT Gareth Cancino MD [facility] CPT-25784 Level 3 Est. Patient 11:00:13 CDT Gareth Cancino MD [facility] CPT-99275 Level 4 Est. Patient 11:20:21 CDT Gareth Cancino MD [facility] CPT-93378 Level 4 Est. 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 Patient 09:48:04 CDT Gareth Cancino MD [facility] CPT-90190 Level 3 Est. Patient 10:13:16 CDT Gareth Cancino MD [facility] CPT-85173 Level 2 Est. Patient 18:36:56 CDT Gareth Cancino MD [facility] CPT-93207 Level 4 Est. Patient 13:50:53 CDT Gareth Cancino MD [facility] CPT-68882 Level 3 Est. Patient 14:58:33 LINUX KERNEL DEVELOPER Gareth Cancino MD [facility] CPT-23598 Level 4 Est. Patient 09:25:57 CDT Gareth Cancino MD [facility] CPT-10166 Level 3 Est. Patient 20:39:33 CDT Noman Edwards DO [facility] CPT-12097 Level 2 Est. Patient 13:17:39 CDT Gareth Cancino MD [facility] CPT-05197 Level 3 Est. Patient 13:37:20 CDT Gareth Cancino MD [facility] CPT-75730 Level 3 Est. Patient 18:09:08 CDT Gareth Cancino MD [facility] CPT-21031 Level 4 Est. Patient 09:59:07 CDT Gareth Cancino MD [facility] Procedures Code Procedure Name Date Entry Date Standard Description CPT-16508 Venipuncture Draw Fee 10:33:47 CDT CPT-32837 BMP - LAB USE ONLY 10:33:46 CDT CPT-Cryo Cryotherapy 15:12:03 CDT CPT-11439 LS spine AP and Lat - XRAY USE ONLY 10:31:51 CDT 07/27 CPT-24671 Punch biopsy 1 lsn 20:40:09 CDT CPT-G0008 Administration of Influenza Virus Vaccine 10:04:48 LINUX KERNEL DEVELOPER CPT-06705 Fluzone High-Dose Intramuscular Suspension 10:04:48 LINUX KERNEL DEVELOPER CPT-36619 Ribs ida w PA chst min 3V 10:45:40 CDT CPT-LR Lesion Removal 13:14:55 CDT CPT-Cryo Cryotherapy 13:14:55 CDT CPT-25670 Venipuncture Draw Fee 10:25:49 CDT CPT-45796 Administration single or combination vaccine inc oral 13 :22:14 LINUX KERNEL DEVELOPER CPT-30660 Influenza High Dose age 65+ 13:22:14 LINUX KERNEL DEVELOPER
--- OUTSIDE RECORDS SUMMARY | 2016-12-06 08:53 | XMS REPORT | Clinical Summary ---
Author Author Admin, Leon Organization [email or web address] Address Unknown Phone Unavailable Allergies, Adverse Reactions, [...] keratosis Rib pain, left sided 786.50 Active Gaerth Cancino MD Unspecified chest pain Bronchitis-Acute 466.0 [...] 1 tablet by mouth qhs prn ALPRAZOLAM 52141293142 No Longer Active Gareth Cancino MD Active CLOBETASOL PROPIONATE 0.05 % CREA apply to hand rash bid CLOBETASOL PROPIONATE 17176422858 No Longer Active Gareth Cancino MD Active BACTROBAN 2 % CREAM Apply to affected area BID MUPIROCIN CALCIUM 37990881788 No Longer Active Gareth Cancino MD Active LISINOPRIL 20 MG TABS 1 tablet by mouth daily for high blood pressure 10/14 LISINOPRIL 24357056494 Active Gareth Cancino MD Active BACTRIM DS 800-160 MG TAB 1 tab by mouth twice daily TRIMETHOPRIM-SULFAMETHOXAZOLE 02579055612 No Longer Active Gareth Cancino MD Active METOPROLOL SUCCINATE ER 100 MG [id number] 1 pill by mouth daily, for blood pressure METOPROLOL SUCCINATE 61825005614 Active Gareth Cancino MD Active KEFLEX 500 MG CAP 1 po TID x 10 days CEPHALEXIN 83710009924 No Longer Active Blanca Castillo APRN Active WELLBUTRIN SR 150 MG ORAL [id number] take 1 tab po BID BUPROPION HCL 73239588300 Active Gareth Cancino MD Active METOPROLOL SUCCINATE 50 MG TB24 1 tablet by mouth daily METOPROLOL SUCCINATE 39032101399 No Longer Active Gareth Cancino MD Active OMEPRAZOLE 20 MG TBEC Take one by mouth daily OMEPRAZOLE 89456639517 No Longer Active Gareth Cancino MD Active OMEPRAZOLE 40 MG CPDR 1 tab po qday for acid reflux. OMEPRAZOLE 31349075169 Active Mary Shah APRN Active LEVAQUIN 500 MG TAB 1 tablet by mouth daily LEVOFLOXACIN 62640696865 No Longer Active Gareth Cancino MD Active ALEVE 220 MG TAB 2 tab po qd NAPROXEN SODIUM 32657321722 Active Gareth Cancino MD Active ASPIRIN 81 MG CHEW TAB 1 tablet by mouth daily ASPIRIN 99052080349 Active Gareth Cancino MD Active VENTOLIN HFA 108 (90 BASE) MCG/ACT AERS 1-2 puffs four times a day PRN shortness of breath ALBUTEROL SULFATE 13955574485 Active Mary Shah SCIENCE AND OPERATIONS OFFICER Active CENTRUM SILVER TABS 1 TAB PO DAILY MULTIPLE VITAMINS-MINERALS 19417331525 Active Gareth Cancino MD Active VITAMIN B12 100 MCG TABS 1 TAB PO DAILY CYANOCOBALAMIN 25114596917 Active Gareth Cancino MD Active CIPRO 500 MG TABS 1 TAB PO BID CIPROFLOXACIN HCL 86473028148 No Longer Active Gareth Cancino MD Active BACTRIM DS 800-160 MG TAB 1 tab by mouth twice daily TRIMETHOPRIM-SULFAMETHOXAZOLE 32380707796 No Longer Active Gareth Cancino MD Active PREDNISONE 20 MG TAB 1 tab po BID for 3 days, then 1 tab po qday for 3 days PREDNISONE 50345405857 No Longer Active Gareth Cancino MD Active FOLIC ACID 800 MCG TABS Take one by mouth daily FOLIC ACID 92825140400 No Longer Active Gareth Cancino MD Active VITAMIN B-6 250 MG TABS Take one by mouth daily PYRIDOXINE HCL 65011832570 No Longer Active Gareth Cancino MD Active B-12 1000 MCG CAPS Take one by mouth daily CYANOCOBALAMIN 41927504077 No Longer Active Gareth Cancino MD Active DOXYCYCLINE HYCLATE 100 MG CAP 1 cap by mouth twice daily DOXYCYCLINE HYCLATE 16887577110 No Longer Active Gareth Cancino MD Active PREDNISONE 20 MG TAB 1 po bid 3 days, then 1 po q day 3 days 2011 PREDNISONE 53963760331 No Longer Active Gareth Cancino MD Active CHANTIX STARTING MONTH RUBEN 0.5 MG X 11 & 1 MG X 42 TABS 0.5mg daily for 3 days , then 0.5mg BID for 4 days, then 1mg BID VARENICLINE TARTRATE 76385425057 No Longer Active Gareth Cancino MD Active SIMVASTATIN 40 MG TABS Take one by mouth daily SIMVASTATIN 85041388480 Active Gareth Cancino MD Active TRIAMTERENE-HCTZ 37.5-25 MG CAPS Take one by mouth daily TRIAMTERENE- HCTZ 30732075206 Active Gareth Cancino MD Active CHANTIX STARTING [...] 3 days 2011 PREDNISONE 20 MG TAB 050871 PREDNISONE Inactive DOXYCYCLINE HYCLATE 100 MG CAP 1 cap by mouth twice daily DOXYCYCLINE HYCLATE 100 MG CAP 4003444 DOXYCYCLINE HYCLATE Inactive B-12 1000 MCG CAPS Take one by mouth daily B-12 1000 MCG CAPS CYANOCOBALAMIN Inactive VITAMIN B-6 250 MG TABS Take one by mouth daily VITAMIN B-6 250 MG TABS PYRIDOXINE HCL Inactive FOLIC ACID 800 MCG TABS Take one by mouth daily FOLIC ACID 800 MCG TABS 977206 FOLIC ACID Inactive CIPRO 500 MG TABS 1 TAB PO BID CIPRO 500 MG TABS 532186 CIPROFLOXACIN HCL Inactive OMEPRAZOLE 20 MG TBEC Take one by mouth daily OMEPRAZOLE 20 MG TBEC 934395 OMEPRAZOLE Inactive METOPROLOL SUCCINATE 50 MG TB24 1 tablet by mouth daily METOPROLOL SUCCINATE 50 MG TB24 METOPROLOL SUCCINATE Inactive BACTROBAN 2 % CREAM Apply to affected area BID BACTROBAN 2 % CREAM 552522 MUPIROCIN CALCIUM Inactive CLOBETASOL PROPIONATE 0.05 % CREA apply to hand rash bid CLOBETASOL PROPIONATE 0.05 % CREA 822627 CLOBETASOL PROPIONATE Inactive ALPRAZOLAM 0.25 MG TAB 1/2 to 1 tablet by mouth qhs prn ALPRAZOLAM 0.25 MG TAB 295466 ALPRAZOLAM Inactive PREDNISONE 20 MG TAB 1 tab po BID for 3 days, then 1 tab po qday for 3 days PREDNISONE 20 MG TAB 670617 PREDNISONE Inactive BACTRIM DS 800-160 MG TAB 1 tab by mouth twice daily BACTRIM DS 800-160 MG TAB 069837 TRIMETHOPRIM-SULFAMETHOXAZOLE Inactive LEVAQUIN 500 MG TAB 1 tablet by mouth daily LEVAQUIN 500 MG TAB 842887 LEVOFLOXACIN Inactive KEFLEX 500 MG CAP 1 po TID x 10 days KEFLEX 500 MG CAP 713544 CEPHALEXIN Inactive BACTRIM DS 800-160 MG TAB 1 tab by mouth twice daily BACTRIM DS 800-160 MG TAB 105478 TRIMETHOPRIM-SULFAMETHOXAZOLE Inactive Vital Signs Date Name Value [...] ... - Chemistry cholesterol, serum 195 mg/dL 581-141 3371/12/02 triglyceride, serum, fasting 74 mg/dL 30-200 HDL cholesterol, serum 52 mg/dL 32-96 LDL cholesterol, serum 128 mg/dL 0-130 sodium, serum 134 mmol/L 468-743 5844/12/02 carbon dioxide, venous blood 30.3 mmol/L 21.0-32.0 [...] 0-19 Encounters Code Encounter Date Provider Facility CPT-65708 Level 3 Est. Patient 23:08:20 CDT Gareth Cancino MD [facility] CPT-41506 Level 4 Est. Patient 20:40:10 CDT Gareth Cancino MD [facility] CPT-76492 Level 4 Est. Patient 19:50:11 CDT Gareth Cancino MD [facility] CPT-71305 Level 3 Est. Patient 11:00:13 CDT Gareth Cancino MD [facility] CPT-50258 Level 4 Est. Patient 11:20:21 CDT Gareth Cancino MD [facility] CPT-51292 Level 4 Est. Patient 09:22:18 AIRCRAFT SYSTEMS REPAIRER Gareth Cancino MD [facility] CPT-83203 Level 3 Est. Patient 09:48:04 CDT Gareth Cancino MD [facility] CPT-91016 Level 3 Est. Patient 10:13:16 CDT Gareth Cancino MD [facility] CPT-26420 Level 2 Est. Patient 18:36:56 CDT Gareth Cancino MD [facility] CPT-97194 Level 4 Est. Patient 13:50:53 CDT Gareth Cancino MD [facility] CPT-42717 Level 3 Est. Patient 14:58:33 AIRCRAFT SYSTEMS REPAIRER Gareth Cancino MD [facility] CPT-33189 Level 4 Est. Patient 09:25:57 CDT Gareth Cancino MD [facility] CPT-04232 Level 3 Est. Patient 20:39:33 CDT Noman Edwards DO [facility] CPT-60532 Level 2 Est. Patient 13:17:39 CDT Gareth Cancino MD [facility] CPT-14540 Level 3 Est. Patient 13:37:20 CDT Gareth Cancino MD [facility] CPT-27766 Level 3 Est. Patient 18:09:08 CDT Gareth Cancino MD [facility] CPT-82374 Level 4 Est. Patient 09:59:07 CDT Gareth Cancino MD [facility] Procedures Code Procedure Name Date Entry Date Standard Description CPT-19677 LS spine AP and Lat - XRAY USE ONLY 10:31:51 CDT 07/27 CPT-76696 Punch biopsy 1 lsn 20:40:09 CDT CPT-G0008 Administration of Influenza Virus Vaccine 10:04:48 AIRCRAFT SYSTEMS REPAIRER CPT-38707 Fluzone High-Dose Intramuscular Suspension 10:04:48 AIRCRAFT SYSTEMS REPAIRER CPT-08618 Ribs unilat w PA chst min 3V 10:45:40 CDT CPT-LR Lesion Removal 13:14:55 CDT CPT-Cryo Cryotherapy 13:14:55 CDT CPT-62064 Venipuncture Draw Fee 10:25:49 CDT CPT-23837 Administration single or combination vaccine inc oral 13 :22:14 AIRCRAFT SYSTEMS REPAIRER CPT-48687 Influenza High Dose age 65+ 13:22:14 AIRCRAFT SYSTEMS REPAIRER
--- OUTSIDE RECORDS SUMMARY | 2016-12-06 08:54 | XMS REPORT | Clinical Summary ---
Author Author Admin, HILARIA Organization [employer] Address Unknown Phone Unavailable Allergies, Adverse Reactions, [...] care facility SKIN LESION 709.9 Active Gareth Cancion MD Unspecified disorder of skin and subcutaneous [...] cause Skin lesion 709.9 Active Blanca Castillo DEICER TESTER Unspecified disorder of skin and subcutaneous tissue Folliculitis 704.8 Active Gareth Cancino MD Other specified diseases of hair and hair follicles Low back pain, chronic 724.2 Active Gareth Cancino MD Lumbago Frequency of urination 788.41 Active Negin Garcia EXECUTIVE COORDINATOR Urinary frequency Actinic keratosis 702.0 Active [...] MG ORAL TABS 1 tab daily AZITHROMYCIN 71605775545 No Longer Active Gareth Cancino MD Active ZITHROMAX 250 MG TAB 2 po today, then 1 po q days 2-5 AZITHROMYCIN 87471424758 No Longer Active Tangela Forte Active IPRATROPIUM-ALBUTEROL 0.5-2.5 (3) MG/3ML INH SOLN nebulize 1 vial every 6hrs prn shortness of breath IPRATROPIUM-ALBUTEROL 23221212543 Active Gareth Cancino MD Active FENTANYL 25 MCG/HR PT72 Apply to clean, dry skin and change every 72 hours FENTANYL 21803381376 Active Gareth Cancino MD Active WELLBUTRIN SR 150 MG ORAL [id number] take 1 tab po BID BUPROPION HCL 97525246363 No Longer Active Gareth Cancino MD Active ZOFRAN 4 MG ORAL TABS 1 by mouth every 6 hours prn nausea ONDANSETRON HCL 52526662295 Active Tangela Forte Active TRAMADOL HCL 50 MG TABS 1 po tid PRN TRAMADOL HCL 88665414766 Active Gareth Cancino MD Active HYDROCODONE-ACETAMINOPHEN 5-325 MG TABS 1 tab by mouth every 6 hours as needed for bck pain HYDROCODONE-ACETAMINOPHEN 66057731569 Active Gareth Cancino MD Active ALPRAZOLAM 0.25 MG TAB 1/2 to 1 tablet by mouth qhs prn ALPRAZOLAM 26491868422 No Longer Active Gareth Cancino MD Active CLOBETASOL PROPIONATE 0.05 % CREA apply to hand rash bid CLOBETASOL PROPIONATE 19959685512 No Longer Active Gareth Cancino MD Active BACTROBAN 2 % CREAM Apply to affected area BID MUPIROCIN CALCIUM 36511437920 No Longer Active Gareth Cancino MD Active LISINOPRIL 20 MG TABS 1 tablet by mouth daily for high blood pressure 10/14 LISINOPRIL 69813889694 Active Gareth Cancino MD Active BACTRIM DS 800-160 MG TAB 1 tab by mouth twice daily TRIMETHOPRIM-SULFAMETHOXAZOLE 56660287196 No Longer Active Gareth Cancino MD Active METOPROLOL SUCCINATE ER 100 MG [id number] 1 pill by mouth daily, for blood pressure METOPROLOL SUCCINATE 46235793758 Active Gareth Cancino MD Active KEFLEX 500 MG CAP 1 po TID x 10 days CEPHALEXIN 84917219069 No Longer Active Blanca Castillo APRN Active METOPROLOL SUCCINATE 50 MG TB24 1 tablet by mouth daily METOPROLOL SUCCINATE 63971564832 No Longer Active Gareth Cancino MD Active OMEPRAZOLE 20 MG TBEC Take one by mouth daily OMEPRAZOLE 09933750955 No Longer Active Gareth Cancino MD Active OMEPRAZOLE 40 MG CPDR 1 tab po qday for acid reflux. OMEPRAZOLE 28351897501 Active Mary Shah APRN Active LEVAQUIN 500 MG TAB 1 tablet by mouth daily LEVOFLOXACIN 91695090049 No Longer Active Gareth Cancino MD Active ALEVE 220 MG TAB 2 tab po qd NAPROXEN SODIUM 66997798546 Active Gareth Cancino MD Active ASPIRIN 81 MG CHEW TAB 1 tablet by mouth daily ASPIRIN 47982064475 Active Gareth Cancino MD Active VENTOLIN HFA 108 (90 BASE) MCG/ACT AERS 1-2 puffs four times a day PRN shortness of breath ALBUTEROL SULFATE 95655132274 Active Mary Shah DEICER TESTER Active CENTRUM SILVER TABS 1 TAB PO DAILY MULTIPLE VITAMINS-MINERALS 25521785865 Active Gareth Cancino MD Active VITAMIN B12 100 MCG TABS 1 TAB PO DAILY CYANOCOBALAMIN 83079751916 Active Gareth Cancino MD Active CIPRO 500 MG TABS 1 TAB PO BID CIPROFLOXACIN HCL 83672429583 No Longer Active Gareth Cancino MD Active BACTRIM DS 800-160 MG TAB 1 tab by mouth twice daily TRIMETHOPRIM-SULFAMETHOXAZOLE 96069807498 No Longer Active Gareth Cancino MD Active PREDNISONE 20 MG TAB 1 tab po BID for 3 days, then 1 tab po qday for 3 days PREDNISONE 36574558543 No Longer Active Gareth Cancino MD Active FOLIC ACID 800 MCG TABS Take one by mouth daily FOLIC ACID 95204180891 No Longer Active Gareth Cancino MD Active VITAMIN B-6 250 MG TABS Take one by mouth daily PYRIDOXINE HCL 56055767494 No Longer Active Gareth Cancino MD Active B-12 1000 MCG CAPS Take one by mouth daily CYANOCOBALAMIN 52994018765 No Longer Active Gareth Cancino MD Active DOXYCYCLINE HYCLATE 100 MG CAP 1 cap by mouth twice daily DOXYCYCLINE HYCLATE 76935859189 No Longer Active Gareth Cancino MD Active PREDNISONE 20 MG TAB 1 po bid 3 days, then 1 po q day 3 days 2011 PREDNISONE 27599970546 No Longer Active Gareth Cancino MD Active CHANTIX STARTING MONTH RUBEN 0.5 MG X 11 & 1 MG X 42 TABS 0.5mg daily for 3 days , then 0.5mg BID for 4 days, then 1mg BID VARENICLINE TARTRATE 72123385383 No Longer Active Gareth Cancino MD Active SIMVASTATIN 40 MG TABS Take one by mouth daily SIMVASTATIN 72702281598 Active Gareth Cancino MD Active TRIAMTERENE-HCTZ 37.5-25 MG CAPS Take one by mouth daily TRIAMTERENE- HCTZ 21376186793 Active Gareth Cancino MD Active CHANTIX STARTING [...] 3 days 2011 PREDNISONE 20 MG TAB 481521 PREDNISONE Inactive DOXYCYCLINE HYCLATE 100 MG CAP 1 cap by mouth twice daily DOXYCYCLINE HYCLATE 100 MG CAP 3984975 DOXYCYCLINE HYCLATE Inactive B-12 1000 MCG CAPS Take one by mouth daily B-12 1000 MCG CAPS CYANOCOBALAMIN Inactive VITAMIN B-6 250 MG TABS Take one by mouth daily VITAMIN B-6 250 MG TABS PYRIDOXINE HCL Inactive FOLIC ACID 800 MCG TABS Take one by mouth daily FOLIC ACID 800 MCG TABS 691966 FOLIC ACID Inactive CIPRO 500 MG TABS 1 TAB PO BID CIPRO 500 MG TABS 310945 CIPROFLOXACIN HCL Inactive OMEPRAZOLE 20 MG TBEC Take one by mouth daily OMEPRAZOLE 20 MG TBEC 119698 OMEPRAZOLE Inactive METOPROLOL SUCCINATE 50 MG TB24 1 tablet by mouth daily METOPROLOL SUCCINATE 50 MG TB24 METOPROLOL SUCCINATE Inactive BACTROBAN 2 % CREAM Apply to affected area BID BACTROBAN 2 % CREAM 364270 MUPIROCIN CALCIUM Inactive CLOBETASOL PROPIONATE 0.05 % CREA apply to hand rash bid 2016/06/ 06 CLOBETASOL PROPIONATE 0.05 % CREA 381009 CLOBETASOL PROPIONATE Inactive ALPRAZOLAM 0.25 MG TAB 1/2 to 1 tablet by mouth qhs prn ALPRAZOLAM 0.25 MG TAB 393075 ALPRAZOLAM Inactive WELLBUTRIN SR 150 MG ORAL [id number] take 1 tab po BID WELLBUTRIN SR 150 MG ORAL [id number] BUPROPION HCL Inactive AZITHROMYCIN 250 MG ORAL TABS 1 tab daily AZITHROMYCIN 250 MG ORAL TABS 0600270 AZITHROMYCIN Inactive PREDNISONE 20 MG TAB 1 tab po BID for 3 days, then 1 tab po qday for 3 days PREDNISONE 20 MG TAB 774128 PREDNISONE Inactive BACTRIM DS 800-160 MG TAB 1 tab by mouth twice daily BACTRIM DS 800-160 MG TAB 466299 TRIMETHOPRIM-SULFAMETHOXAZOLE Inactive LEVAQUIN 500 MG TAB 1 tablet by mouth daily LEVAQUIN 500 MG TAB 341105 LEVOFLOXACIN Inactive KEFLEX 500 MG CAP 1 po TID x 10 days KEFLEX 500 MG CAP 790664 CEPHALEXIN Inactive BACTRIM DS 800-160 MG TAB 1 tab by mouth twice daily BACTRIM DS 800-160 MG TAB 414660 TRIMETHOPRIM-SULFAMETHOXAZOLE Inactive ZITHROMAX 250 MG TAB 2 po today, then 1 po q days 2-5 ZITHROMAX 250 MG TAB 7210102 AZITHROMYCIN Inactive Vital Signs Date Name Value [...] Panel - Chemistry sodium, serum 133 mmol/L 124-124 3916/08/24 potassium, serum 4.4 mmol/L 3.5-5.2 chloride, serum 95 mmol/L 98-107 carbon dioxide, venous blood 33.0 mmol/L 21.0-32.0 blood glucose 107 mg/dL 65-110 calcium, serum 8.8 mg/dL 8.5-10.1 urea nitrogen, blood 12 mg/dL 7-18 creatinine, serum 0.69 mg/dL 0.55-1.30 Lab Report: CBC, Basic Metabolic Panel - Chemistry sodium, serum 132 mmol/L 646-746 1534/10/12 potassium, serum 4.7 mmol/L 3.5-5.2 chloride, serum [...] CBC - Chemistry sodium, serum 136 mmol/L 401-125 3536/11/01 carbon dioxide, venous blood 32.1 mmol/L 21.0-32.0 [...] mg/g mg/g{creat} 0-29 cholesterol, serum 195 mg/dL 306-032 8404/12/02 triglyceride, serum, fasting 74 mg/dL 30-200 HDL cholesterol, serum 52 mg/dL 32-96 LDL cholesterol, serum 128 mg/dL 0-130 sodium, serum 134 mmol/L 315-239 3936/12/02 carbon dioxide, venous blood 30.3 mmol/L 21.0-32.0 [...] 5.0-8.5 Encounters Code Encounter Date Provider Facility CPT-70776 Level 3 Est. Patient 10:34:55 CDT Gareth Cancino MD [facility] CPT-75603 Level 4 Est. Patient 09:00:18 CDT Gareth Cancino MD [facility] CPT-01401 Level 3 Est. Patient 15:12:03 CDT Gareth Cancino MD [facility] CPT-27011 Level 3 Est. Patient 23:08:20 CDT Gareth Cancino MD [facility] CPT-85761 Level 4 Est. Patient 20:40:10 CDT Gareth Cancino MD [facility] CPT-02724 Level 4 Est. Patient 19:50:11 CDT Gareth Cancino MD [facility] CPT-34128 Level 3 Est. Patient 11:00:13 CDT Gareth Cancino MD [facility] CPT-60890 Level 4 Est. Patient 11:20:21 CDT Gareth Cancino MD [facility] CPT-70233 Level 4 Est. 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 Patient 09:48:04 CDT Gareth Cancino MD [facility] CPT-39005 Level 3 Est. Patient 10:13:16 CDT Gareth Cancino MD [facility] CPT-88868 Level 2 Est. Patient 18:36:56 CDT Gareth Cancino MD [facility] CPT-37308 Level 4 Est. Patient 13:50:53 CDT Gareth Cancino MD [facility] CPT-75970 Level 3 Est. Patient 14:58:33 COMMERCIAL MAKEUP ARTIST Gareth Cancino MD [facility] CPT-57832 Level 4 Est. Patient 09:25:57 CDT Gareth Cancino MD [facility] CPT-11756 Level 3 Est. Patient 20:39:33 CDT Noman Edwards DO [facility] CPT-47423 Level 2 Est. Patient 13:17:39 CDT Gareth Cancino MD [facility] CPT-31227 Level 3 Est. Patient 13:37:20 CDT Gareth Cancino MD [facility] CPT-82535 Level 3 Est. Patient 18:09:08 CDT Gareth Cancino MD [facility] CPT-36421 Level 4 Est. Patient 09:59:07 CDT Gareth Cancino MD [facility] Procedures Code Procedure Name Date Entry Date Standard Description CPT-24491 CMP - LAB USE ONLY 16:31:15 CDT CPT-90547 CBC - LAB USE ONLY 16:31:14 CDT CPT-93061 Venipuncture Draw Fee 16:31:14 CDT CPT-56662 BMP - LAB USE ONLY 14:37:27 CDT CPT-55355 CBC - LAB USE ONLY 14:37:27 CDT CPT-91159 Venipuncture Draw Fee 14:37:27 CDT CPT-TCMM Transitional Care Mgmt-Moderate 14:43:38 CDT CPT-48600 Venipuncture Draw Fee 10:33:47 CDT CPT-00326 BMP - LAB USE ONLY 10:33:46 CDT CPT-Cryo Cryotherapy 15:12:03 CDT CPT-72706 LS spine AP and Lat - XRAY USE ONLY 10:31:51 CDT 07/27 CPT-62091 Punch biopsy 1 lsn 20:40:09 CDT CPT-G0008 Administration of Influenza Virus Vaccine 10:04:48 COMMERCIAL MAKEUP ARTIST CPT-52468 Fluzone High-Dose Intramuscular Suspension 10:04:48 COMMERCIAL MAKEUP ARTIST CPT-11462 Ribs unilat w PA chst min 3V 10:45:40 CDT CPT-LR Lesion Removal 13:14:55 CDT CPT-Cryo Cryotherapy 13:14:55 CDT CPT-75779 Venipuncture Draw Fee 10:25:49 CDT CPT-65794 Administration single or combination vaccine inc oral 13 :22:14 COMMERCIAL MAKEUP ARTIST CPT-35719 Influenza High Dose age 65+ 13:22:14 COMMERCIAL MAKEUP ARTIST
--- OUTSIDE RECORDS SUMMARY | 2016-12-06 08:56 | XMS REPORT | Clinical Summary ---
Author Author Admin, HILARIA Organization [employer] Address Unknown Phone Unavailable Allergies, Adverse Reactions, [...] BRONCHITIS, ACUTE WITH MILD BRONCHOSPASM 466.0 Resolved aGreth Cancino MD Acute bronchitis URINARY FREQUENCY 788.41 [...] 1 GM ORAL PACK as directed AZITHROMYCIN 79882795378 Active Tangela Forte Active PIROXICAM 20 MG ORAL CAPS 1 po daily as needed for arthritis/pain PIROXICAM 35630332561 Active Gareth Cancino MD Active ZITHROMAX Z-RUBEN 250 MG TABS 2 today, then 1 daily for 4 days 2016 AZITHROMYCIN 73347963472 No Longer Active Tangelashar Forte Active FENTANYL 25 MCG/HR TRANS PT72 1 patch every 72 hours FENTANYL 72225945049 Active Mary Shah APRN Active PREDNISONE 20 MG TAB take 3 tabs daily for 3 days, 2 tabs daily for 3 days, 1 tab daily for 3 days, 1/2 tab daily for 4 days PREDNISONE 37210086231 No Longer Active Mary Shah APRN Active LEVAQUIN 500 MG TAB 1 tablet by mouth daily for 7 days LEVOFLOXACIN 60422432531 Active Mary Shah APRN Active AZITHROMYCIN 250 MG TABS 2 po qd x 1 day, then 1 po qd x 4 days AZITHROMYCIN 08572247130 No Longer Active Danuta Modi Active AZITHROMYCIN 250 MG TABS 2 po qd x 1 day, then 1 po qd x 4 days AZITHROMYCIN 35305949893 No Longer Active Tangela Forte Active HYDROCODONE-ACETAMINOPHEN 5-325 MG TABS 1 tab by mouth every 6 hours as needed for bck pain HYDROCODONE-ACETAMINOPHEN 61889859870 No Longer Active Gareth Cancino MD Active ALPRAZOLAM 0.25 MG TAB 1 tablet by mouth q hs prn ALPRAZOLAM 72075715427 Active Gareth Cancino MD Active AZITHROMYCIN 250 MG ORAL TABS 1 tab daily AZITHROMYCIN 21190420685 No Longer Active Gareth Cancino MD Active ZITHROMAX 250 MG TAB 2 po today, then 1 po q days 2-5 AZITHROMYCIN 84042760351 No Longer Active Tangela Forte Active IPRATROPIUM-ALBUTEROL 0.5-2.5 (3) MG/3ML INH SOLN nebulize 1 vial every 6hrs prn shortness of breath IPRATROPIUM-ALBUTEROL 05322412503 Active Gareth Cancino MD Active FENTANYL 25 MCG/HR PT72 Apply to clean, dry skin and change every 72 hours FENTANYL 47034394217 No Longer Active Gareth Cancino MD Active WELLBUTRIN SR 150 MG ORAL [id number] take 1 tab po BID BUPROPION HCL 72332552881 No Longer Active Gareth Cancino MD Active ZOFRAN 4 MG ORAL TABS 1 by mouth every 6 hours prn nausea ONDANSETRON HCL 79754441376 Active Tangela Forte Active TRAMADOL HCL 50 MG TABS 1 po tid PRN TRAMADOL HCL 27866828061 Active Gareth Cancino MD Active ALPRAZOLAM 0.25 MG TAB 1/2 to 1 tablet by mouth qhs prn ALPRAZOLAM 13982469193 No Longer Active Gareth Cancino MD Active CLOBETASOL PROPIONATE 0.05 % CREA apply to hand rash bid CLOBETASOL PROPIONATE 50108687802 No Longer Active Gareth Cancino MD Active BACTROBAN 2 % CREAM Apply to affected area BID MUPIROCIN CALCIUM 82275324831 No Longer Active Gareth Cancino MD Active LISINOPRIL 20 MG TABS 1 tablet by mouth daily for high blood pressure 10/14 LISINOPRIL 10078534264 Active Gareth Cancino MD Active BACTRIM DS 800-160 MG TAB 1 tab by mouth twice daily TRIMETHOPRIM-SULFAMETHOXAZOLE 70021851675 No Longer Active Gareth Cancino MD Active METOPROLOL SUCCINATE ER 100 MG [id number] 1 pill by mouth daily, for blood pressure METOPROLOL SUCCINATE 10417742569 Active Gareth Cancino MD Active KEFLEX 500 MG CAP 1 po TID x 10 days CEPHALEXIN 95016553483 No Longer Active Blanca Castillo APRN Active METOPROLOL SUCCINATE 50 MG TB24 1 tablet by mouth daily METOPROLOL SUCCINATE 40562171005 No Longer Active Gareth Cancino MD Active OMEPRAZOLE 20 MG TBEC Take one by mouth daily OMEPRAZOLE 50720737458 No Longer Active Gareth Cancino MD Active OMEPRAZOLE 40 MG CPDR 1 tab po qday for acid reflux. OMEPRAZOLE 99563872409 Active Mary Shah APRN Active LEVAQUIN 500 MG TAB 1 tablet by mouth daily LEVOFLOXACIN 99613621582 No Longer Active Gareth Cancino MD Active ALEVE 220 MG TAB 2 tab po qd NAPROXEN SODIUM 41939365167 Active Gareth Cancino MD Active ASPIRIN 81 MG CHEW TAB 1 tablet by mouth daily ASPIRIN 06905517839 Active Gareth Cancino MD Active VENTOLIN HFA 108 (90 BASE) MCG/ACT AERS 1-2 puffs four times a day PRN shortness of breath ALBUTEROL SULFATE 93624981340 Active Mary Shah APRN Active CENTRUM SILVER TABS 1 TAB PO DAILY MULTIPLE VITAMINS-MINERALS 89522134723 Active Gareth Cancino MD Active VITAMIN B12 100 MCG TABS 1 TAB PO DAILY CYANOCOBALAMIN 31311866917 Active Gareth Cancino MD Active CIPRO 500 MG TABS 1 TAB PO BID CIPROFLOXACIN HCL 28687242798 No Longer Active Gareth Cancino MD Active BACTRIM DS 800-160 MG TAB 1 tab by mouth twice daily TRIMETHOPRIM-SULFAMETHOXAZOLE 43913991480 No Longer Active Gareth Cancino MD Active PREDNISONE 20 MG TAB 1 tab po BID for 3 days, then 1 tab po qday for 3 days PREDNISONE 90236606033 No Longer Active Gareth Cancino MD Active FOLIC ACID 800 MCG TABS Take one by mouth daily FOLIC ACID 39545059399 No Longer Active Gareth Cancino MD Active VITAMIN B-6 250 MG TABS Take one by mouth daily PYRIDOXINE HCL 25612400905 No Longer Active Gareth Cancino MD Active B-12 1000 MCG CAPS Take one by mouth daily CYANOCOBALAMIN 89884324889 No Longer Active Gareth Cancino MD Active DOXYCYCLINE HYCLATE 100 MG CAP 1 cap by mouth twice daily DOXYCYCLINE HYCLATE 56857932613 No Longer Active Gareth Cancino MD Active PREDNISONE 20 MG TAB 1 po bid 3 days, then 1 po q day 3 days 2011 PREDNISONE 40679314106 No Longer Active Gareth Cancino MD Active CHANTIX STARTING MONTH RUBEN 0.5 MG X 11 & 1 MG X 42 TABS 0.5mg daily for 3 days , then 0.5mg BID for 4 days, then 1mg BID VARENICLINE TARTRATE 36916740757 No Longer Active Gareth Cancino MD Active SIMVASTATIN 40 MG TABS Take one by mouth daily SIMVASTATIN 41067491528 Active Gareth Cancino MD Active TRIAMTERENE-HCTZ 37.5-25 MG CAPS Take one by mouth daily TRIAMTERENE- HCTZ 03768958472 Active Mary Shah APRN Active CHANTIX STARTING [...] 3 days 2011 PREDNISONE 20 MG TAB 217165 PREDNISONE Inactive DOXYCYCLINE HYCLATE 100 MG CAP 1 cap by mouth twice daily DOXYCYCLINE HYCLATE 100 MG CAP 1897463 DOXYCYCLINE HYCLATE Inactive B-12 1000 MCG CAPS Take one by mouth daily B-12 1000 MCG CAPS CYANOCOBALAMIN Inactive VITAMIN B-6 250 MG TABS Take one by mouth daily VITAMIN B-6 250 MG TABS PYRIDOXINE HCL Inactive FOLIC ACID 800 MCG TABS Take one by mouth daily FOLIC ACID 800 MCG TABS 913310 FOLIC ACID Inactive CIPRO 500 MG TABS 1 TAB PO BID CIPRO 500 MG TABS 462315 CIPROFLOXACIN HCL Inactive OMEPRAZOLE 20 MG TBEC Take one by mouth daily OMEPRAZOLE 20 MG TBEC 104487 OMEPRAZOLE Inactive METOPROLOL SUCCINATE 50 MG TB24 1 tablet by mouth daily METOPROLOL SUCCINATE 50 MG TB24 METOPROLOL SUCCINATE Inactive BACTROBAN 2 % CREAM Apply to affected area BID BACTROBAN 2 % CREAM 606254 MUPIROCIN CALCIUM Inactive CLOBETASOL PROPIONATE 0.05 % CREA apply to hand rash bid CLOBETASOL PROPIONATE 0.05 % CREA 335528 CLOBETASOL PROPIONATE Inactive ALPRAZOLAM 0.25 MG TAB 1/2 to 1 tablet by mouth qhs prn ALPRAZOLAM 0.25 MG TAB 561084 ALPRAZOLAM Inactive WELLBUTRIN SR 150 MG ORAL [id number] take 1 tab po BID WELLBUTRIN SR 150 MG ORAL [id number] BUPROPION HCL Inactive AZITHROMYCIN 250 MG ORAL TABS 1 tab daily AZITHROMYCIN 250 MG ORAL TABS 0088870 AZITHROMYCIN Inactive HYDROCODONE-ACETAMINOPHEN 5-325 MG TABS 1 tab by mouth every 6 hours as needed for bck pain HYDROCODONE-ACETAMINOPHEN 5-325 MG TABS 800590 HYDROCODONE-ACETAMINOPHEN Inactive PREDNISONE 20 MG TAB 1 tab po BID for 3 days, then 1 tab po qday for 3 days PREDNISONE 20 MG TAB 945052 PREDNISONE Inactive BACTRIM DS 800-160 MG TAB 1 tab by mouth twice daily BACTRIM DS 800-160 MG TAB 204987 TRIMETHOPRIM-SULFAMETHOXAZOLE Inactive LEVAQUIN 500 MG TAB 1 tablet by mouth daily LEVAQUIN 500 MG TAB 860956 LEVOFLOXACIN Inactive KEFLEX 500 MG CAP 1 po TID x 10 days KEFLEX 500 MG CAP 525420 CEPHALEXIN Inactive BACTRIM DS 800-160 MG TAB 1 tab by mouth twice daily BACTRIM DS 800-160 MG TAB 861500 TRIMETHOPRIM-SULFAMETHOXAZOLE Inactive FENTANYL 25 MCG/HR PT72 Apply to clean, dry skin and change every 72 hours FENTANYL 25 MCG/HR PT72 358170 FENTANYL Inactive ZITHROMAX 250 MG TAB 2 po today, then 1 po q days 2-5 ZITHROMAX 250 MG TAB 0106687 AZITHROMYCIN Inactive AZITHROMYCIN 250 MG TABS 2 po qd x 1 day, then 1 po qd x 4 days AZITHROMYCIN 250 MG TABS 9717033 AZITHROMYCIN Inactive AZITHROMYCIN 250 MG TABS 2 po qd x 1 day, then 1 po qd x 4 days AZITHROMYCIN 250 MG TABS 8024179 AZITHROMYCIN Inactive PREDNISONE 20 MG TAB take 3 tabs daily for 3 days, 2 tabs daily for 3 days, 1 tab daily for 3 days, 1/2 tab daily for 4 days PREDNISONE 20 MG TAB 258626 PREDNISONE Inactive ZITHROMAX Z-RUBEN 250 MG TABS 2 today, then 1 daily for 4 days 2016 ZITHROMAX Z-RUBEN 250 MG TABS 0531508 AZITHROMYCIN Inactive Vital Signs Date Name Value [...] Panel - Chemistry sodium, serum 133 mmol/L 705-715 5051/08/24 potassium, serum 4.4 mmol/L 3.5-5.2 chloride, serum 95 mmol/L 98-107 carbon dioxide, venous blood 33.0 mmol/L 21.0-32.0 blood glucose 107 mg/dL 65-110 calcium, serum 8.8 mg/dL 8.5-10.1 urea nitrogen, blood 12 mg/dL 7-18 creatinine, serum 0.69 mg/dL 0.55-1.30 Lab Report: CBC, Basic Metabolic Panel - Chemistry sodium, serum 132 mmol/L 369-052 7281/10/12 potassium, serum 4.7 mmol/L 3.5-5.2 chloride, serum [...] CBC - Chemistry sodium, serum 136 mmol/L 036-648 1268/11/01 carbon dioxide, venous blood 32.1 mmol/L 21.0-32.0 [...] PANEL - Chemistry cholesterol, serum 169 mg/dL 615-805 0323/05/09 HDL cholesterol, serum 54 mg/dL > OR=46 [...] mg/dL Encounters Code Encounter Date Provider Facility CPT-86383 Level 4 Est. Patient 07:23:02 CDT Gareth Cancino MD [facility] CPT-10393 Level 3 Est. Patient 09:05:25 [employer] Mary Shah APRN [facility] CPT-89172 Level 3 Est. Patient 20:53:25 [employer] Gareth Cancino MD [facility] CPT-95841 Level 3 Est. Patient 10:34:55 CDT Gareth Cancino MD [facility] CPT-56059 Level 4 Est. Patient 09:00:18 CDT Gareth Cancino MD [facility] CPT-04515 Level 3 Est. Patient 15:12:03 CDT Gareth Cancino MD [facility] CPT-48299 Level 3 Est. Patient 23:08:20 CDT Gareth Cancino MD [facility] CPT-37062 Level 4 Est. Patient 20:40:10 CDT Gareth Cancino MD [facility] CPT-37686 Level 4 Est. Patient 19:50:11 CDT Gareth Cancino MD [facility] CPT-66718 Level 3 Est. Patient 11:00:13 CDT Gareth Cancino MD [facility] CPT-52154 Level 4 Est. Patient 11:20:21 CDT Gareth Cancino MD [facility] CPT-97148 Level 4 Est. Patient 09:22:18 [employer] Gareth Cancino MD [facility] CPT-71854 Level 3 Est. Patient 09:48:04 CDT Gareth Cancino MD [facility] CPT-84364 Level 3 Est. Patient 10:13:16 CDT Gareth Cancino MD [facility] CPT-87999 Level 2 Est. Patient 18:36:56 CDT Gareth Cancino MD [facility] CPT-93253 Level 4 Est. Patient 13:50:53 CDT Gareth Cancino MD [facility] CPT-39018 Level 3 Est. Patient 14:58:33 [employer] Gareth Cancino MD [facility] CPT-90525 Level 4 Est. Patient 09:25:57 CDT Gareth Cancino MD [facility] CPT-10167 Level 3 Est. Patient 20:39:33 CDT Noman Edwards DO [facility] CPT-56598 Level 2 Est. Patient 13:17:39 CDT Gareth Cancino MD [facility] CPT-39504 Level 3 Est. Patient 13:37:20 CDT Gareth Cancino MD [facility] CPT-69638 Level 3 Est. Patient 18:09:08 CDT Gareth Cancino MD [facility] CPT-32477 Level 4 Est. Patient 09:59:07 CDT Gareth Cancino MD [facility] Procedures Code Procedure Name Date Entry Date Standard Description CPT-000 Give Appropriate Flu Vaccine 09:29:52 [employer] CPT-000 Give Appropriate Flu Vaccine 09:22:20 [employer] CPT-89594 TSH - LAB USE ONLY 08:11:40 [employer] CPT-47033 Free T4 - LAB USE ONLY 08:11:40 [employer] CPT-90960 Venipuncture Draw Fee 08:11:40 [employer] CPT-72363 UA w micro - LAB USE ONLY 14:26:22 [employer] CPT-G0438 Initial Annual Wellness Exam 20:53:25 [employer] CPT-G0009 Administration of Pneumococcal Vaccine 11:42:53 [employer] CPT-54611 Prevnar 13 Intramuscular Suspension 11:42:53 [employer] 01/07 CPT-23855 First Vx - Ix admin for Medicare patients 11:39:44 [employer] CPT-94620 Fluzone High-Dose Intramuscular Suspension 11:39:44 [employer] CPT-21159 Prevnar 13 Intramuscular Suspension 09:29:52 [employer] 01/07 CPT-71641 CMP - LAB USE ONLY 16:31:15 CDT CPT-88273 CBC - LAB USE ONLY 16:31:14 CDT CPT-03651 Venipuncture Draw Fee 16:31:14 CDT CPT-54203 BMP - LAB USE ONLY 14:37:27 CDT CPT-68538 CBC - LAB USE ONLY 14:37:27 CDT CPT-15487 Venipuncture Draw Fee 14:37:27 CDT CPT-TCMM Transitional Care Mgmt-Moderate 14:43:38 CDT CPT-55003 Venipuncture Draw Fee 10:33:47 CDT CPT-30878 BMP - LAB USE ONLY 10:33:46 CDT CPT-Cryo Cryotherapy 15:12:03 CDT CPT-76114 LS spine AP and Lat - XRAY USE ONLY 10:31:51 CDT 07/27 CPT-81118 Punch biopsy 1 lsn 20:40:09 CDT CPT-G0008 Administration of Influenza Virus Vaccine 10:04:48 [employer] CPT-07258 Fluzone High-Dose Intramuscular Suspension 10:04:48 [employer] CPT-92348 Ribs unilat w PA chst min 3V 10:45:40 CDT CPT-LR Lesion Removal 13:14:55 CDT CPT-Cryo Cryotherapy 13:14:55 CDT CPT-10113 Venipuncture Draw Fee 10:25:49 CDT CPT-50203 Administration single or combination vaccine inc oral 13 :22:14 [employer] CPT-89342 Influenza High Dose age 65+ 13:22:14 [employer]
--- OUTSIDE RECORDS SUMMARY | 2016-12-06 08:57 | XMS REPORT | Clinical Summary ---
Author Author Admin, HILARIA Organization [employer] Address Unknown Phone Unavailable Allergies, Adverse Reactions, [...] Gareth Cancino MD Other and unspecified hyperlipidemia SKIN LESION ICD-709.9 Inactive Gareth Cancino MD [...] hours as needed for bck pain HYDROCODONE-ACETAMINOPHEN [id number] No Longer Active Gareth Cancino MD Active FENTANYL 12 MCG/HR PT72 Apply to clean, dry skin and change every 72 hours FENTANYL 87045520783 Active Gareth Cancino MD Active ALPRAZOLAM 0.25 MG TAB 1 tablet by mouth q hs prn ALPRAZOLAM 39963231883 Active Gareth Cancino MD Active AZITHROMYCIN 250 MG ORAL TABS 1 tab daily AZITHROMYCIN 73158203764 No Longer Active Gareth Cancion MD Active ZITHROMAX 250 MG TAB 2 po today, then 1 po q days 2-5 AZITHROMYCIN 29363949867 No Longer Active Tangela Forte Active IPRATROPIUM-ALBUTEROL 0.5-2.5 (3) MG/3ML INH SOLN nebulize 1 vial every 6hrs prn shortness of breath IPRATROPIUM-ALBUTEROL 68362832578 Active Gareth Cancino MD Active FENTANYL 25 MCG/HR PT72 Apply to clean, dry skin and change every 72 hours FENTANYL 01588141805 No Longer Active Gareth Cancino MD Active WELLBUTRIN SR 150 MG ORAL [id number] take 1 tab po BID BUPROPION HCL 49439432697 No Longer Active Gareth Cancino MD Active ZOFRAN 4 MG ORAL TABS 1 by mouth every 6 hours prn nausea ONDANSETRON HCL 55289820622 Active Tangela Forte Active TRAMADOL HCL 50 MG TABS 1 po tid PRN TRAMADOL HCL 27805529101 Active Gareth Cancino MD Active ALPRAZOLAM 0.25 MG TAB 1/2 to 1 tablet by mouth qhs prn ALPRAZOLAM 98104808001 No Longer Active Gareth Cancino MD Active CLOBETASOL PROPIONATE 0.05 % CREA apply to hand rash bid CLOBETASOL PROPIONATE 93923008155 No Longer Active Gareth Cancino MD Active BACTROBAN 2 % CREAM Apply to affected area BID MUPIROCIN CALCIUM 48152624259 No Longer Active Graeth Cancino MD Active LISINOPRIL 20 MG TABS 1 tablet by mouth daily for high blood pressure 10/14 LISINOPRIL 87092732465 Active Gareth Cancino MD Active BACTRIM DS 800-160 MG TAB 1 tab by mouth twice daily TRIMETHOPRIM-SULFAMETHOXAZOLE 77160146419 No Longer Active Gareth Cancino MD Active METOPROLOL SUCCINATE ER 100 MG [id number] 1 pill by mouth daily, for blood pressure METOPROLOL SUCCINATE 09671695276 Active Gareth Cancino MD Active KEFLEX 500 MG CAP 1 po TID x 10 days CEPHALEXIN 26756566210 No Longer Active Blanca Castillo APRN Active METOPROLOL SUCCINATE 50 MG TB24 1 tablet by mouth daily METOPROLOL SUCCINATE 90467895033 No Longer Active Gareth Cancino MD Active OMEPRAZOLE 20 MG TBEC Take one by mouth daily OMEPRAZOLE 16038304277 No Longer Active Gareth Cancino MD Active OMEPRAZOLE 40 MG CPDR 1 tab po qday for acid reflux. OMEPRAZOLE 78882280817 Active Mary Shah APRN Active LEVAQUIN 500 MG TAB 1 tablet by mouth daily LEVOFLOXACIN 51260285254 No Longer Active Gareth Cancino MD Active ALEVE 220 MG TAB 2 tab po qd NAPROXEN SODIUM 51367880844 Active Gareth Cancino MD Active ASPIRIN 81 MG CHEW TAB 1 tablet by mouth daily ASPIRIN 04039610036 Active Gareth Cancino MD Active VENTOLIN HFA 108 (90 BASE) MCG/ACT AERS 1-2 puffs four times a day PRN shortness of breath ALBUTEROL SULFATE 16338254630 Active Mary Shah APRN Active CENTRUM SILVER TABS 1 TAB PO DAILY MULTIPLE VITAMINS-MINERALS 31378834539 Active Gareth Cancino MD Active VITAMIN B12 100 MCG TABS 1 TAB PO DAILY CYANOCOBALAMIN 45201440700 Active Gareth Cancino MD Active CIPRO 500 MG TABS 1 TAB PO BID CIPROFLOXACIN HCL 58879658928 No Longer Active Gareth Cancino MD Active BACTRIM DS 800-160 MG TAB 1 tab by mouth twice daily TRIMETHOPRIM-SULFAMETHOXAZOLE 80084072437 No Longer Active Gareth Cancino MD Active PREDNISONE 20 MG TAB 1 tab po BID for 3 days, then 1 tab po qday for 3 days PREDNISONE 60239535086 No Longer Active Gareth Cancino MD Active FOLIC ACID 800 MCG TABS Take one by mouth daily FOLIC ACID 46711562451 No Longer Active Gareth Cancino MD Active VITAMIN B-6 250 MG TABS Take one by mouth daily PYRIDOXINE HCL 81122521576 No Longer Active Gareth Cancino MD Active B-12 1000 MCG CAPS Take one by mouth daily CYANOCOBALAMIN 68237689435 No Longer Active Gaerth Cancino MD Active DOXYCYCLINE HYCLATE 100 MG CAP 1 cap by mouth twice daily DOXYCYCLINE HYCLATE 83956969698 No Longer Active Gareth Cancino MD Active PREDNISONE 20 MG TAB 1 po bid 3 days, then 1 po q day 3 days 2011 PREDNISONE 05721078184 No Longer Active Gareth Cancino MD Active CHANTIX STARTING MONTH RUBEN 0.5 MG X 11 & 1 MG X 42 TABS 0.5mg daily for 3 days , then 0.5mg BID for 4 days, then 1mg BID VARENICLINE TARTRATE 01491402175 No Longer Active Gareth Cancino MD Active SIMVASTATIN 40 MG TABS Take one by mouth daily SIMVASTATIN 56467213557 Active Gareth Cancino MD Active TRIAMTERENE-HCTZ 37.5-25 MG CAPS Take one by mouth daily TRIAMTERENE- HCTZ 85672462417 Active Gareth Cancino MD Active CHANTIX STARTING [...] 3 days 2011 PREDNISONE 20 MG TAB 638374 PREDNISONE Inactive DOXYCYCLINE HYCLATE 100 MG CAP 1 cap by mouth twice daily DOXYCYCLINE HYCLATE 100 MG CAP 4914870 DOXYCYCLINE HYCLATE Inactive B-12 1000 MCG CAPS Take one by mouth daily B-12 1000 MCG CAPS CYANOCOBALAMIN Inactive VITAMIN B-6 250 MG TABS Take one by mouth daily VITAMIN B-6 250 MG TABS PYRIDOXINE HCL Inactive FOLIC ACID 800 MCG TABS Take one by mouth daily FOLIC ACID 800 MCG TABS 252348 FOLIC ACID Inactive CIPRO 500 MG TABS 1 TAB PO BID CIPRO 500 MG TABS 513857 CIPROFLOXACIN HCL Inactive OMEPRAZOLE 20 MG TBEC Take one by mouth daily OMEPRAZOLE 20 MG TBEC 324482 OMEPRAZOLE Inactive METOPROLOL SUCCINATE 50 MG TB24 1 tablet by mouth daily METOPROLOL SUCCINATE 50 MG TB24 METOPROLOL SUCCINATE Inactive BACTROBAN 2 % CREAM Apply to affected area BID BACTROBAN 2 % CREAM 626832 MUPIROCIN CALCIUM Inactive CLOBETASOL PROPIONATE 0.05 % CREA apply to hand rash bid CLOBETASOL PROPIONATE 0.05 % CREA 131177 CLOBETASOL PROPIONATE Inactive ALPRAZOLAM 0.25 MG TAB 1/2 to 1 tablet by mouth qhs prn ALPRAZOLAM 0.25 MG TAB 441833 ALPRAZOLAM Inactive WELLBUTRIN SR 150 MG ORAL [id number] take 1 tab po BID WELLBUTRIN SR 150 MG ORAL [id number] BUPROPION HCL Inactive AZITHROMYCIN 250 MG ORAL TABS 1 tab daily AZITHROMYCIN 250 MG ORAL TABS 1053044 AZITHROMYCIN Inactive HYDROCODONE-ACETAMINOPHEN 5-325 MG TABS 1 tab by mouth every 6 hours as needed for bck pain HYDROCODONE-ACETAMINOPHEN 5-325 MG TABS 562264 HYDROCODONE-ACETAMINOPHEN Inactive PREDNISONE 20 MG TAB 1 tab po BID for 3 days, then 1 tab po qday for 3 days PREDNISONE 20 MG TAB 063323 PREDNISONE Inactive BACTRIM DS 800-160 MG TAB 1 tab by mouth twice daily BACTRIM DS 800-160 MG TAB 542362 TRIMETHOPRIM-SULFAMETHOXAZOLE Inactive LEVAQUIN 500 MG TAB 1 tablet by mouth daily LEVAQUIN 500 MG TAB 595462 LEVOFLOXACIN Inactive KEFLEX 500 MG CAP 1 po TID x 10 days KEFLEX 500 MG CAP 316389 CEPHALEXIN Inactive BACTRIM DS 800-160 MG TAB 1 tab by mouth twice daily BACTRIM DS 800-160 MG TAB 859602 TRIMETHOPRIM-SULFAMETHOXAZOLE Inactive FENTANYL 25 MCG/HR PT72 Apply to clean, dry skin and change every 72 hours FENTANYL 25 MCG/HR PT72 381698 FENTANYL Inactive ZITHROMAX 250 MG TAB 2 po today, then 1 po q days 2-5 ZITHROMAX 250 MG TAB 6578496 AZITHROMYCIN Inactive Vital Signs Date Name Value [...] Panel - Chemistry sodium, serum 133 mmol/L 789-449 8035/08/24 potassium, serum 4.4 mmol/L 3.5-5.2 chloride, serum 95 mmol/L 98-107 carbon dioxide, venous blood 33.0 mmol/L 21.0-32.0 blood glucose 107 mg/dL 65-110 calcium, serum 8.8 mg/dL 8.5-10.1 urea nitrogen, blood 12 mg/dL 7-18 creatinine, serum 0.69 mg/dL 0.55-1.30 Lab Report: CBC, Basic Metabolic Panel - Chemistry sodium, serum 132 mmol/L 127-264 2801/10/12 potassium, serum 4.7 mmol/L 3.5-5.2 chloride, serum [...] CBC - Chemistry sodium, serum 136 mmol/L 483-588 7009/11/01 carbon dioxide, venous blood 32.1 mmol/L 21.0-32.0 [...] 5.0-8.5 Encounters Code Encounter Date Provider Facility CPT-30853 Level 3 Est. Patient 20:53:25 ARSON INVESTIGATOR Gareth Cancino MD [facility] CPT-84744 Level 3 Est. Patient 10:34:55 CDT Gareth Cancino MD [facility] CPT-94587 Level 4 Est. Patient 09:00:18 CDT Gareth Cancino MD [facility] CPT-56003 Level 3 Est. Patient 15:12:03 CDT Gareth Cancino MD [facility] CPT-23237 Level 3 Est. Patient 23:08:20 CDT Gareth Cancino MD [facility] CPT-91553 Level 4 Est. Patient 20:40:10 CDT Gareth Cancino MD [facility] CPT-61796 Level 4 Est. Patient 19:50:11 CDT Gareth Cancino MD [facility] CPT-38433 Level 3 Est. Patient 11:00:13 CDT Gareth Cancino MD [facility] CPT-77236 Level 4 Est. Patient 11:20:21 CDT Gareth Cancino MD [facility] CPT-00840 Level 4 Est. Patient 09:22:18 ARSON INVESTIGATOR Gareth Cancino MD [facility] CPT-99751 Level 3 Est. Patient 09:48:04 CDT Gareth Cancino MD [facility] CPT-61624 Level 3 Est. Patient 10:13:16 CDT Gareth Cancino MD [facility] CPT-00787 Level 2 Est. Patient 18:36:56 CDT Gareth Cancino MD [facility] CPT-08458 Level 4 Est. Patient 13:50:53 CDT Gareth Cancino MD [facility] CPT-96986 Level 3 Est. Patient 14:58:33 ARSON INVESTIGATOR Garteh Cancino MD [facility] CPT-70751 Level 4 Est. Patient 09:25:57 CDT Gareth Cancino MD [facility] CPT-40752 Level 3 Est. Patient 20:39:33 CDT Noman Edwards DO [facility] CPT-71939 Level 2 Est. Patient 13:17:39 CDT Gareth Cancino MD [facility] CPT-70555 Level 3 Est. Patient 13:37:20 CDT Gareth Cancino MD [facility] CPT-01320 Level 3 Est. Patient 18:09:08 CDT Gareth Cancino MD [facility] CPT-49510 Level 4 Est. Patient 09:59:07 CDT Gareth Cancino MD [facility] Procedures Code Procedure Name Date Entry Date Standard Description CPT-49297 TSH - LAB USE ONLY 08:11:40 ARSON INVESTIGATOR CPT-17692 Free T4 - LAB USE ONLY 08:11:40 ARSON INVESTIGATOR CPT-76206 Venipuncture Draw Fee 08:11:40 ARSON INVESTIGATOR CPT-21510 UA w micro - LAB USE ONLY 14:26:22 ARSON INVESTIGATOR CPT-G0438 Initial Annual Wellness Exam 20:53:25 ARSON INVESTIGATOR CPT-G0009 Administration of Pneumococcal Vaccine 11:42:53 ARSON INVESTIGATOR CPT-13497 Prevnar 13 Intramuscular Suspension 11:42:53 ARSON INVESTIGATOR 01/07 CPT-79244 First Vx - Ix admin for Medicare patients 11:39:44 ARSON INVESTIGATOR CPT-91155 Fluzone High-Dose Intramuscular Suspension 11:39:44 ARSON INVESTIGATOR CPT-09072 Prevnar 13 Intramuscular Suspension 09:29:52 ARSON INVESTIGATOR 01/07 CPT-87407 CMP - LAB USE ONLY 16:31:15 CDT CPT-84089 CBC - LAB USE ONLY 16:31:14 CDT CPT-90404 Venipuncture Draw Fee 16:31:14 CDT CPT-02186 BMP - LAB USE ONLY 14:37:27 CDT CPT-54455 CBC - LAB USE ONLY 14:37:27 CDT CPT-09869 Venipuncture Draw Fee 14:37:27 CDT CPT-TCMM Transitional Care Mgmt-Moderate 14:43:38 CDT CPT-41030 Venipuncture Draw Fee 10:33:47 CDT CPT-43802 BMP - LAB USE ONLY 10:33:46 CDT CPT-Cryo Cryotherapy 15:12:03 CDT CPT-01217 LS spine AP and Lat - XRAY USE ONLY 10:31:51 CDT 07/27 CPT-69525 Punch biopsy 1 lsn 20:40:09 CDT CPT-G0008 Administration of Influenza Virus Vaccine 10:04:48 ARSON INVESTIGATOR CPT-97850 Fluzone High-Dose Intramuscular Suspension 10:04:48 ARSON INVESTIGATOR CPT-09114 Ribs unilat w PA chst min 3V 10:45:40 CDT CPT-LR Lesion Removal 13:14:55 CDT CPT-Cryo Cryotherapy 13:14:55 CDT CPT-03035 Venipuncture Draw Fee 10:25:49 CDT CPT-89478 Administration single or combination vaccine inc oral 13 :22:14 ARSON INVESTIGATOR CPT-59740 Influenza High Dose age 65+ 13:22:14 ARSON INVESTIGATOR
--- OUTSIDE RECORDS SUMMARY | 2016-12-06 08:57 | XMS REPORT | Clinical Summary ---
Author Author Admin, Leon Organization [employer] Address Unknown Phone Unavailable Allergies, Adverse Reactions, [...] cause Skin lesion 709.9 Active Blanca Castillo OXYHYDROGEN WELDER Unspecified disorder of skin and subcutaneous tissue Folliculitis 704.8 Active Gareth Cancino MD Other specified diseases of hair and hair follicles Low back pain, chronic 724.2 Active Gareth Cancino MD Lumbago Frequency of urination 788.41 Active Negin Garcia PRACTICE NURSE Urinary frequency Actinic keratosis 702.0 Active Gareth Cancino MD Actinic keratosis Bronchitis-Acute ICD-466.0 Inactive Gareth Cancino MD Medication List Medication Instructions Start Date Stop Date Generic Name NDC Status Provider Patient Instruction ALPRAZOLAM 0.25 MG TAB 1/2 to 1 tablet by mouth qhs prn ALPRAZOLAM 71177848838 No Longer Active Gareth Cancnio MD Active CLOBETASOL PROPIONATE 0.05 % CREA apply to hand rash bid CLOBETASOL PROPIONATE 68109370210 No Longer Active Gareth Cancino MD Active BACTROBAN 2 % CREAM Apply to affected area BID MUPIROCIN CALCIUM 00085942655 No Longer Active Gareth Cancino MD Active LISINOPRIL 20 MG TABS 1 tablet by mouth daily for high blood pressure 10/14 LISINOPRIL 90850654064 Active Gareth Cancino MD Active BACTRIM DS 800-160 MG TAB 1 tab by mouth twice daily TRIMETHOPRIM-SULFAMETHOXAZOLE 45988191530 No Longer Active Gareth Cancino MD Active METOPROLOL SUCCINATE ER 100 MG [id number] 1 pill by mouth daily, for blood pressure METOPROLOL SUCCINATE 44728203874 Active Gareth Cancino MD Active KEFLEX 500 MG CAP 1 po TID x 10 days CEPHALEXIN 08877239738 No Longer Active Blanca Castillo APRN Active WELLBUTRIN SR 150 MG ORAL AH35V-TDH take 1 tab po BID BUPROPION HCL 66367256635 Active Gareth Cancino MD Active METOPROLOL SUCCINATE 50 MG TB24 1 tablet by mouth daily METOPROLOL SUCCINATE 80784978636 No Longer Active Gareth Cancino MD Active OMEPRAZOLE 20 MG TBEC Take one by mouth daily OMEPRAZOLE 24861491190 No Longer Active Gareth Cancino MD Active OMEPRAZOLE 40 MG CPDR 1 tab po qday for acid reflux. OMEPRAZOLE 12732407916 Active Mary Shah APRN Active LEVAQUIN 500 MG TAB 1 tablet by mouth daily LEVOFLOXACIN 22926013270 No Longer Active Gareth Cancino MD Active ALEVE 220 MG TAB 2 tab po qd NAPROXEN SODIUM 18601389517 Active Gareth Cancino MD Active ASPIRIN 81 MG CHEW TAB 1 tablet by mouth daily ASPIRIN 75196130712 Active Gareth Cancino MD Active VENTOLIN HFA 108 (90 BASE) MCG/ACT AERS 1-2 puffs four times a day PRN shortness of breath ALBUTEROL SULFATE 00744484879 Active Mary Shah APRN Active CENTRUM SILVER TABS 1 TAB PO DAILY MULTIPLE VITAMINS-MINERALS 29564554107 Active Gareth Cancino MD Active VITAMIN B12 100 MCG TABS 1 TAB PO DAILY CYANOCOBALAMIN 22864641364 Active Gareth Cancino MD Active CIPRO 500 MG TABS 1 TAB PO BID CIPROFLOXACIN HCL 08368312803 No Longer Active Gareth Cancino MD Active BACTRIM DS 800-160 MG TAB 1 tab by mouth twice daily TRIMETHOPRIM-SULFAMETHOXAZOLE 03549169002 No Longer Active Gareth Cancino MD Active PREDNISONE 20 MG TAB 1 tab po BID for 3 days, then 1 tab po qday for 3 days PREDNISONE 03616407076 No Longer Active Gareth Cancino MD Active FOLIC ACID 800 MCG TABS Take one by mouth daily FOLIC ACID 27269920493 No Longer Active Gareth Cancino MD Active VITAMIN B-6 250 MG TABS Take one by mouth daily PYRIDOXINE HCL 83794349032 No Longer Active Gareth Cancino MD Active B-12 1000 MCG CAPS Take one by mouth daily CYANOCOBALAMIN 63411616750 No Longer Active Gareth Cancino MD Active DOXYCYCLINE HYCLATE 100 MG CAP 1 cap by mouth twice daily DOXYCYCLINE HYCLATE 30662886778 No Longer Active Gareth Cancino MD Active PREDNISONE 20 MG TAB 1 po bid 3 days, then 1 po q day 3 days 2011 PREDNISONE 00458596126 No Longer Active Gareth Cancino MD Active CHANTIX STARTING MONTH RUBEN 0.5 MG X 11 & 1 MG X 42 TABS 0.5mg daily for 3 days , then 0.5mg BID for 4 days, then 1mg BID VARENICLINE TARTRATE 13424522895 No Longer Active Gareth Cancino MD Active SIMVASTATIN 40 MG TABS Take one by mouth daily SIMVASTATIN 56394019381 Active Gareth Cancino MD Active TRIAMTERENE-HCTZ 37.5-25 MG CAPS Take one by mouth daily TRIAMTERENE- HCTZ 43900370954 Active Gareth Cancino MD Active CHANTIX STARTING [...] 3 days 2011 PREDNISONE 20 MG TAB 247225 PREDNISONE Inactive DOXYCYCLINE HYCLATE 100 MG CAP 1 cap by mouth twice daily DOXYCYCLINE HYCLATE 100 MG CAP 1375610 DOXYCYCLINE HYCLATE Inactive B-12 1000 MCG CAPS Take one by mouth daily B-12 1000 MCG CAPS CYANOCOBALAMIN Inactive VITAMIN B-6 250 MG TABS Take one by mouth daily VITAMIN B-6 250 MG TABS PYRIDOXINE HCL Inactive FOLIC ACID 800 MCG TABS Take one by mouth daily FOLIC ACID 800 MCG TABS 564568 FOLIC ACID Inactive CIPRO 500 MG TABS 1 TAB PO BID CIPRO 500 MG TABS 084504 CIPROFLOXACIN HCL Inactive OMEPRAZOLE 20 MG TBEC Take one by mouth daily OMEPRAZOLE 20 MG TBEC 208908 OMEPRAZOLE Inactive METOPROLOL SUCCINATE 50 MG TB24 1 tablet by mouth daily 2015/06/ 30 METOPROLOL SUCCINATE 50 MG TB24 METOPROLOL SUCCINATE Inactive BACTROBAN 2 % CREAM Apply to affected area BID BACTROBAN 2 % CREAM 084209 MUPIROCIN CALCIUM Inactive CLOBETASOL PROPIONATE 0.05 % CREA apply to hand rash bid CLOBETASOL PROPIONATE 0.05 % CREA 850004 CLOBETASOL PROPIONATE Inactive ALPRAZOLAM 0.25 MG TAB 1/2 to 1 tablet by mouth qhs prn ALPRAZOLAM 0.25 MG TAB 585399 ALPRAZOLAM Inactive PREDNISONE 20 MG TAB 1 tab po BID for 3 days, then 1 tab po qday for 3 days PREDNISONE 20 MG TAB 889749 PREDNISONE Inactive BACTRIM DS 800-160 MG TAB 1 tab by mouth twice daily BACTRIM DS 800-160 MG TAB 118803 TRIMETHOPRIM-SULFAMETHOXAZOLE Inactive LEVAQUIN 500 MG TAB 1 tablet by mouth daily LEVAQUIN 500 MG TAB 423058 LEVOFLOXACIN Inactive KEFLEX 500 MG CAP 1 po TID x 10 days KEFLEX 500 MG CAP 201389 CEPHALEXIN Inactive BACTRIM DS 800-160 MG TAB 1 tab by mouth twice daily BACTRIM DS 800-160 MG TAB 577965 TRIMETHOPRIM-SULFAMETHOXAZOLE Inactive Vital Signs Date Name Value [...] ... - Chemistry cholesterol, serum 195 mg/dL 027-946 6942/12/02 triglyceride, serum, fasting 74 mg/dL 30-200 HDL cholesterol, serum 52 mg/dL 32-96 LDL cholesterol, serum 128 mg/dL 0-130 sodium, serum 134 mmol/L 861-960 9152/12/02 carbon dioxide, venous blood 30.3 mmol/L 21.0-32.0 [...] 5.0-8.5 Encounters Code Encounter Date Provider Facility CPT-65859 Level 3 Est. Patient 15:12:03 CDT Gareth Cancino MD [facility] CPT-34148 Level 3 Est. Patient 23:08:20 CDT Gareth Cacnino MD [facility] CPT-03784 Level 4 Est. Patient 20:40:10 CDT Gareth Cancino MD [facility] CPT-18070 Level 4 Est. Patient 19:50:11 CDT Gareth Cancino MD [facility] CPT-51415 Level 3 Est. Patient 11:00:13 CDT Gareth Cancino MD [facility] CPT-59758 Level 4 Est. Patient 11:20:21 CDT Gareth Cancino MD [facility] CPT-17124 Level 4 Est. Patient 09:22:18 HOG SCRAPER Gareth Cancino MD [facility] CPT-95374 Level 3 Est. Patient 09:48:04 CDT Gareth Cancino MD [facility] CPT-68598 Level 3 Est. Patient 10:13:16 CDT Gareth Cnacino MD [facility] CPT-16510 Level 2 Est. Patient 18:36:56 CDT Gareth Cancino MD [facility] CPT-95055 Level 4 Est. Patient 13:50:53 CDT Gareth Cancino MD [facility] CPT-66025 Level 3 Est. Patient 14:58:33 HOG SCRAPER Gareth Cancino MD [facility] CPT-17299 Level 4 Est. Patient 09:25:57 CDT Gareth Cancino MD [facility] CPT-64873 Level 3 Est. Patient 20:39:33 CDT Noman Edwards DO [facility] CPT-30304 Level 2 Est. Patient 13:17:39 CDT Gareth Cancino MD [facility] CPT-57697 Level 3 Est. Patient 13:37:20 CDT Gareth Cancino MD [facility] CPT-92502 Level 3 Est. Patient 18:09:08 CDT Gareth Cancino MD [facility] CPT-80767 Level 4 Est. Patient 09:59:07 CDT Gareth Cancino MD [facility] Procedures Code Procedure Name Date Entry Date Standard Description CPT-57632 Venipuncture Draw Fee 10:33:47 CDT CPT-95830 BMP - LAB USE ONLY 10:33:46 CDT CPT-Cryo Cryotherapy 15:12:03 CDT CPT-38349 LS spine AP and Lat - XRAY USE ONLY 10:31:51 CDT 07/27 CPT-51452 Punch biopsy 1 lsn 20:40:09 CDT CPT-G0008 Administration of Influenza Virus Vaccine 10:04:48 HOG SCRAPER CPT-61398 Fluzone High-Dose Intramuscular Suspension 10:04:48 HOG SCRAPER CPT-86983 Ribs unilat w PA chst min 3V 10:45:40 CDT CPT-LR Lesion Removal 13:14:55 CDT CPT-Cryo Cryotherapy 13:14:55 CDT CPT-62237 Venipuncture Draw Fee 10:25:49 CDT CPT-12000 Administration single or combination vaccine inc oral 13 :22:14 HOG SCRAPER CPT-57823 Influenza High Dose age 65+ 13:22:14 HOG SCRAPER
--- OUTSIDE RECORDS SUMMARY | 2016-12-06 08:59 | XMS REPORT | Clinical Summary ---
Author Author Admin, HILARIA Organization [employer] Address Unknown Phone Unavailable Allergies, Adverse Reactions, [...] MD Hypopotassemia Spinal stenosis 724.00 Active Gareth Canicno MD Spinal stenosis of unspecified region Dizziness [...] 1 po qd x 4 days AZITHROMYCIN 62403858380 Active Danuta Modi Active AZITHROMYCIN 250 MG TABS 2 po qd x 1 day, then 1 po qd x 4 days AZITHROMYCIN 66291434604 No Longer Active Tangela Forte Active HYDROCODONE-ACETAMINOPHEN 5-325 MG TABS 1 tab by mouth every 6 hours as needed for bck pain HYDROCODONE-ACETAMINOPHEN 26489663937 No Longer Active Gareth Cancino MD Active FENTANYL 12 MCG/HR PT72 Apply to clean, dry skin and change every 72 hours FENTANYL 07729656037 Active Gareth Cancino MD Active ALPRAZOLAM 0.25 MG TAB 1 tablet by mouth q hs prn ALPRAZOLAM 10922670935 Active Gareth Cancino MD Active AZITHROMYCIN 250 MG ORAL TABS 1 tab daily AZITHROMYCIN 11233000195 No Longer Active Gareth Cancino MD Active ZITHROMAX 250 MG TAB 2 po today, then 1 po q days 2-5 AZITHROMYCIN 15328240019 No Longer Active Tangela Forte Active IPRATROPIUM-ALBUTEROL 0.5-2.5 (3) MG/3ML INH SOLN nebulize 1 vial every 6hrs prn shortness of breath IPRATROPIUM-ALBUTEROL 74687452563 Active Gareth Cancino MD Active FENTANYL 25 MCG/HR PT72 Apply to clean, dry skin and change every 72 hours FENTANYL 85143269178 No Longer Active Gareth Cancino MD Active WELLBUTRIN SR 150 MG ORAL [id number] take 1 tab po BID BUPROPION HCL 04763818557 No Longer Active Gareth Cancino MD Active ZOFRAN 4 MG ORAL TABS 1 by mouth every 6 hours prn nausea ONDANSETRON HCL 06266271312 Active Tangela Forte Active TRAMADOL HCL 50 MG TABS 1 po tid PRN TRAMADOL HCL 87338670478 Active Gareth Cancino MD Active ALPRAZOLAM 0.25 MG TAB 1/2 to 1 tablet by mouth qhs prn ALPRAZOLAM 13397483571 No Longer Active Gareth Cancino MD Active CLOBETASOL PROPIONATE 0.05 % CREA apply to hand rash bid CLOBETASOL PROPIONATE 71975213569 No Longer Active Gareth Cancino MD Active BACTROBAN 2 % CREAM Apply to affected area BID MUPIROCIN CALCIUM 96850523619 No Longer Active Gareth Cancino MD Active LISINOPRIL 20 MG TABS 1 tablet by mouth daily for high blood pressure 10/14 LISINOPRIL 72960956965 Active Gareth Cancino MD Active BACTRIM DS 800-160 MG TAB 1 tab by mouth twice daily TRIMETHOPRIM-SULFAMETHOXAZOLE 46991753713 No Longer Active Gareth Cancino MD Active METOPROLOL SUCCINATE ER 100 MG PD83L-CBC 1 pill by mouth daily, for blood pressure METOPROLOL SUCCINATE 64236792956 Active Gareth Cancino MD Active KEFLEX 500 MG CAP 1 po TID x 10 days CEPHALEXIN 13206261042 No Longer Active Blanca Castillo APRN Active METOPROLOL SUCCINATE 50 MG TB24 1 tablet by mouth daily METOPROLOL SUCCINATE 77211763038 No Longer Active Gareth Cancino MD Active OMEPRAZOLE 20 MG TBEC Take one by mouth daily OMEPRAZOLE 48830807432 No Longer Active Gareth Cancino MD Active OMEPRAZOLE 40 MG CPDR 1 tab po qday for acid reflux. OMEPRAZOLE 52288468772 Active Mary Shah APRN Active LEVAQUIN 500 MG TAB 1 tablet by mouth daily LEVOFLOXACIN 10504934365 No Longer Active Gareth Cancino MD Active ALEVE 220 MG TAB 2 tab po qd NAPROXEN SODIUM 17820747005 Active Gareth Cancino MD Active ASPIRIN 81 MG CHEW TAB 1 tablet by mouth daily ASPIRIN 69460472856 Active Gareth Cancino MD Active VENTOLIN HFA 108 (90 BASE) MCG/ACT AERS 1-2 puffs four times a day PRN shortness of breath ALBUTEROL SULFATE 43331961156 Active Mary Shah APRN Active CENTRUM SILVER TABS 1 TAB PO DAILY MULTIPLE VITAMINS-MINERALS 33973037674 Active Gareth Cancino MD Active VITAMIN B12 100 MCG TABS 1 TAB PO DAILY CYANOCOBALAMIN 63262865563 Active Gareth Cancino MD Active CIPRO 500 MG TABS 1 TAB PO BID CIPROFLOXACIN HCL 84776162257 No Longer Active Gareth Cancino MD Active BACTRIM DS 800-160 MG TAB 1 tab by mouth twice daily TRIMETHOPRIM-SULFAMETHOXAZOLE 85638835078 No Longer Active Gareth Cancino MD Active PREDNISONE 20 MG TAB 1 tab po BID for 3 days, then 1 tab po qday for 3 days PREDNISONE 36751608016 No Longer Active Gareth Cancino MD Active FOLIC ACID 800 MCG TABS Take one by mouth daily FOLIC ACID 85114603304 No Longer Active Gareth Cancino MD Active VITAMIN B-6 250 MG TABS Take one by mouth daily PYRIDOXINE HCL 58202609221 No Longer Active Gareth Cancino MD Active B-12 1000 MCG CAPS Take one by mouth daily CYANOCOBALAMIN 74938036192 No Longer Active Gareth Cancino MD Active DOXYCYCLINE HYCLATE 100 MG CAP 1 cap by mouth twice daily DOXYCYCLINE HYCLATE 48192319666 No Longer Active Gareth Cancino MD Active PREDNISONE 20 MG TAB 1 po bid 3 days, then 1 po q day 3 days 2011 PREDNISONE 95169131796 No Longer Active Gareth Cancino MD Active CHANTIX STARTING MONTH RUBEN 0.5 MG X 11 & 1 MG X 42 TABS 0.5mg daily for 3 days , then 0.5mg BID for 4 days, then 1mg BID VARENICLINE TARTRATE 29540024262 No Longer Active Gareth Cancino MD Active SIMVASTATIN 40 MG TABS Take one by mouth daily SIMVASTATIN 49877368174 Active Gareth Cancino MD Active TRIAMTERENE-HCTZ 37.5-25 MG CAPS Take one by mouth daily TRIAMTERENE- HCTZ 76650633547 Active Gareth Cancino MD Active CHANTIX STARTING [...] 3 days 2011 PREDNISONE 20 MG TAB 244427 PREDNISONE Inactive DOXYCYCLINE HYCLATE 100 MG CAP 1 cap by mouth twice daily DOXYCYCLINE HYCLATE 100 MG CAP 2643741 DOXYCYCLINE HYCLATE Inactive B-12 1000 MCG CAPS Take one by mouth daily B-12 1000 MCG CAPS CYANOCOBALAMIN Inactive VITAMIN B-6 250 MG TABS Take one by mouth daily VITAMIN B-6 250 MG TABS PYRIDOXINE HCL Inactive FOLIC ACID 800 MCG TABS Take one by mouth daily FOLIC ACID 800 MCG TABS 905549 FOLIC ACID Inactive CIPRO 500 MG TABS 1 TAB PO BID CIPRO 500 MG TABS 270985 CIPROFLOXACIN HCL Inactive OMEPRAZOLE 20 MG TBEC Take one by mouth daily OMEPRAZOLE 20 MG TBEC 355761 OMEPRAZOLE Inactive METOPROLOL SUCCINATE 50 MG TB24 1 tablet by mouth daily METOPROLOL SUCCINATE 50 MG TB24 METOPROLOL SUCCINATE Inactive BACTROBAN 2 % CREAM Apply to affected area BID BACTROBAN 2 % CREAM 299453 MUPIROCIN CALCIUM Inactive CLOBETASOL PROPIONATE 0.05 % CREA apply to hand rash bid CLOBETASOL PROPIONATE 0.05 % CREA 263153 CLOBETASOL PROPIONATE Inactive ALPRAZOLAM 0.25 MG TAB 1/2 to 1 tablet by mouth qhs prn ALPRAZOLAM 0.25 MG TAB 457060 ALPRAZOLAM Inactive WELLBUTRIN SR 150 MG ORAL [id number] take 1 tab po BID WELLBUTRIN SR 150 MG ORAL [id number] BUPROPION HCL Inactive AZITHROMYCIN 250 MG ORAL TABS 1 tab daily AZITHROMYCIN 250 MG ORAL TABS 3360193 AZITHROMYCIN Inactive HYDROCODONE-ACETAMINOPHEN 5-325 MG TABS 1 tab by mouth every 6 hours as needed for bck pain HYDROCODONE-ACETAMINOPHEN 5-325 MG TABS 309547 HYDROCODONE-ACETAMINOPHEN Inactive PREDNISONE 20 MG TAB 1 tab po BID for 3 days, then 1 tab po qday for 3 days PREDNISONE 20 MG TAB 442249 PREDNISONE Inactive BACTRIM DS 800-160 MG TAB 1 tab by mouth twice daily BACTRIM DS 800-160 MG TAB 960000 TRIMETHOPRIM-SULFAMETHOXAZOLE Inactive LEVAQUIN 500 MG TAB 1 tablet by mouth daily LEVAQUIN 500 MG TAB 904982 LEVOFLOXACIN Inactive KEFLEX 500 MG CAP 1 po TID x 10 days KEFLEX 500 MG CAP 562013 CEPHALEXIN Inactive BACTRIM DS 800-160 MG TAB 1 tab by mouth twice daily BACTRIM DS 800-160 MG TAB 616543 TRIMETHOPRIM-SULFAMETHOXAZOLE Inactive FENTANYL 25 MCG/HR PT72 Apply to clean, dry skin and change every 72 hours FENTANYL 25 MCG/HR PT72 079485 FENTANYL Inactive ZITHROMAX 250 MG TAB 2 po today, then 1 po q days 2-5 ZITHROMAX 250 MG TAB 6649769 AZITHROMYCIN Inactive AZITHROMYCIN 250 MG TABS 2 po qd x 1 day, then 1 po qd x 4 days AZITHROMYCIN 250 MG TABS 3386337 AZITHROMYCIN Inactive Vital Signs Date Name Value [...] Panel - Chemistry sodium, serum 133 mmol/L 340-737 9688/08/24 potassium, serum 4.4 mmol/L 3.5-5.2 chloride, serum 95 mmol/L 98-107 carbon dioxide, venous blood 33.0 mmol/L 21.0-32.0 blood glucose 107 mg/dL 65-110 calcium, serum 8.8 mg/dL 8.5-10.1 urea nitrogen, blood 12 mg/dL 7-18 creatinine, serum 0.69 mg/dL 0.55-1.30 Lab Report: CBC, Basic Metabolic Panel - Chemistry sodium, serum 132 mmol/L 474-484 2317/10/12 potassium, serum 4.7 mmol/L 3.5-5.2 chloride, serum [...] CBC - Chemistry sodium, serum 136 mmol/L 700-849 1546/11/01 carbon dioxide, venous blood 32.1 mmol/L 21.0-32.0 [...] Negative Encounters Code Encounter Date Provider Facility CPT-90990 Level 3 Est. Patient 20:53:25 NON[employer]IT [employer]CIAL [employer]OLLER Gareth Cancino MD [facility]-44986 Level 3 Est. Patient 10:34:55 CDT Gareth Cancino MD [facility]-05525 Level 4 Est. Patient 09:00:18 CDT Gareth Cancino MD [facility]-12770 Level 3 Est. Patient 15:12:03 CDT Gareth Cancino MD [facility]-36854 Level 3 Est. Patient 23:08:20 CDT Gareth Cancino MD [facility]-50186 Level 4 Est. Patient 20:40:10 CDT Gareth Cancino MD [facility] CPT-84059 Level 4 Est. Patient 19:50:11 CDT Gareth Cancino MD [facility] CPT-47265 Level 3 Est. Patient 11:00:13 CDT Gareth Cancino MD [facility] CPT-82894 Level 4 Est. Patient 11:20:21 CDT Gareth Cancino MD [facility]-75542 Level 4 Est. Patient 09:22:18 [employer]IT [employer]CIAL [employer]ER Gareth Cancino MD [facility] CPT-39133 Level 3 Est. Patient 09:48:04 CDT Gareth Cancino MD [facility] CPT-74495 Level 3 Est. Patient 10:13:16 CDT Gareth Cancino MD [facility] CPT-68963 Level 2 Est. Patient 18:36:56 CDT Gareth Cancino MD [facility] CPT-11515 Level 4 Est. Patient 13:50:53 CDT Gareth Cancino MD [facility]-18520 Level 3 Est. Patient 14:58:33 [employer]IT [employer]CIAL [employer]ER Gareth Cancino MD [facility] CPT-36490 Level 4 Est. Patient 09:25:57 CDT Gareth Cancino MD [facility] CPT-08700 Level 3 Est. Patient 20:39:33 CDT Noman Edwards DO [facility] CPT-59986 Level 2 Est. Patient 13:17:39 CDT Gareth Cancino MD [facility] CPT-60512 Level 3 Est. Patient 13:37:20 CDT Gareth Cancino MD [facility] CPT-82950 Level 3 Est. Patient 18:09:08 CDT Gareth Cancino MD [facility] CPT-01745 Level 4 Est. Patient 09:59:07 CDT Gareth Cancino MD [facility] Procedures Code Procedure Name Date Entry Date Standard Description CPT-000 Give Appropriate Flu Vaccine 09:29:52 [employer]ER CPT-000 Give Appropriate Flu Vaccine 09:22:20 NON[employer]IT [employer]CIAL [employer]ER CPT-53402 TSH - LAB USE ONLY 08:11:40 NON[employer]IT [employer]CIAL [employer]OLLER CPT-58612 Free T4 - LAB USE ONLY 08:11:40 NON[employer]IT FIN[employer]CIAL [employer]OLLER CPT-57786 Venipuncture Draw Fee 08:11:40 NON[employer]IT FIN[employer]CIAL [employer]OLLER CPT-82726 UA w micro - LAB USE ONLY 14:26:22 NON[employer]OFIT FIN[employer]CIAL CONTROLLER CPT-G0438 Initial Annual Wellness Exam 20:53:25 NON[employer]IT FIN[employer]CIAL [employer]OLLER CPT-G0009 Administration of Pneumococcal Vaccine 11:42:53 NON[employer]IT FIN[employer]CIAL [employer]OLLER CPT-50772 Prevnar 13 Intramuscular Suspension 11:42:53 NON[employer]OFIT FIN[employer]CIAL CONTROLLER 01/07 CPT-63109 First Vx - Ix admin for Medicare patients 11:39:44 NONPROFIT FINANCIAL CONTROLLER CPT-89434 Fluzone High-Dose Intramuscular Suspension 11:39:44 NONPROFIT FINANCIAL CONTROLLER CPT-26467 Prevnar 13 Intramuscular Suspension 09:29:52 NONPROFIT FINANCIAL CONTROLLER 01/07 CPT-99029 CMP - LAB USE ONLY 16:31:15 CDT CPT-07317 CBC - LAB USE ONLY 16:31:14 CDT CPT-23649 Venipuncture Draw Fee 16:31:14 CDT CPT-45554 BMP - LAB USE ONLY 14:37:27 CDT CPT-34286 CBC - LAB USE ONLY 14:37:27 CDT CPT-60648 Venipuncture Draw Fee 14:37:27 CDT CPT-TCMM Transitional Care Mgmt-Moderate 14:43:38 CDT CPT-48562 Venipuncture Draw Fee 10:33:47 CDT CPT-55868 BMP - LAB USE ONLY 10:33:46 CDT CPT-Cryo Cryotherapy 15:12:03 CDT CPT-21266 LS spine AP and Lat - XRAY USE ONLY 10:31:51 CDT 07/27 CPT-47826 Punch biopsy 1 lsn 20:40:09 CDT CPT-G0008 Administration of Influenza Virus Vaccine 10:04:48 NON[employer]OFIT FIN[employer]CIAL CONTROLLER CPT-02931 Fluzone High-Dose Intramuscular Suspension 10:04:48 NON[employer]OFIT FINANCIAL CONTROLLER CPT-21763 Ribs unilat w PA chst min 3V 10:45:40 CDT CPT-LR Lesion Removal 13:14:55 CDT CPT-Cryo Cryotherapy 13:14:55 CDT CPT-92876 Venipuncture Draw Fee 10:25:49 CDT CPT-16728 Administration single or combination vaccine inc oral 13 :22:14 NON[employer]OFIT FINANCIAL CONTROLLER CPT-72373 Influenza High Dose age 65+ 13:22:14 NONPROFIT FINANCIAL CONTROLLER
--- OUTSIDE RECORDS SUMMARY | 2016-12-06 08:59 | XMS REPORT | Clinical Summary ---
Author Author Admin, HILARIA Organization [facility] Address Unknown Phone Unavailable Allergies, Adverse Reactions, Alerts Allergy Name Reaction Description Start Date Severity Status Provider No Known Allergies Danuta Rian Conditions or Problems Problem Name Problem Code Onset Date Status Entry Date Provider Comment Standard Description Annotate HYPERTENSION 401.9 Active Gareth Cancnio MD Unspecified essential hypertension HYPERCHOLESTEROLEMIA, PURE 272.0 [...] tab po qday for acid reflux. OMEPRAZOLE 68391935013 Active Gareth Cancino MD Active LEVAQUIN 500 MG TAB 1 tablet by mouth daily LEVOFLOXACIN 49300465409 No Longer Active Gareth Cancino MD Active ALEVE 220 MG TAB 2 tab po qd NAPROXEN SODIUM 43863970326 Active Gareth Cancino MD Active ASPIRIN 81 MG CHEW TAB 1 tablet by mouth daily ASPIRIN 60062226930 Active Gareth Cancino MD Active VENTOLIN HFA 108 (90 BASE) MCG/ACT AERS 1-2 puffs four times a day PRN shortness of breath ALBUTEROL SULFATE 97210240940 Active Gareth Cancino MD Active CENTRUM SILVER TABS 1 TAB PO DAILY MULTIPLE VITAMINS-MINERALS 56161765840 Active Gareth Cancino MD Active VITAMIN B12 100 MCG TABS 1 TAB PO DAILY CYANOCOBALAMIN 49147827632 Active Gareth Cancino MD Active CIPRO 500 MG TABS 1 TAB PO BID CIPROFLOXACIN HCL 99361833787 No Longer Active Gareth Cancino MD Active BACTRIM DS 800-160 MG TAB 1 tab by mouth twice daily TRIMETHOPRIM-SULFAMETHOXAZOLE 31977432811 No Longer Active Gareth Cancino MD Active METOPROLOL SUCCINATE 50 MG TB24 1 tablet by mouth daily METOPROLOL SUCCINATE 61916148371 Active Gareth Cancino MD Active PREDNISONE 20 MG TAB 1 tab po BID for 3 days, then 1 tab po qday for 3 days PREDNISONE 38510403515 No Longer Active Gareth Cancino MD Active FOLIC ACID 800 MCG TABS Take one by mouth daily FOLIC ACID 22323164834 No Longer Active Gareth Cancino MD Active VITAMIN B-6 250 MG TABS Take one by mouth daily PYRIDOXINE HCL 96446779329 No Longer Active Gareth Cancino MD Active B-12 1000 MCG CAPS Take one by mouth daily CYANOCOBALAMIN 09919340794 No Longer Active Gareth Cancino MD Active DOXYCYCLINE HYCLATE 100 MG CAP 1 cap by mouth twice daily DOXYCYCLINE HYCLATE 35257434636 No Longer Active Gareth Cancino MD Active PREDNISONE 20 MG TAB 1 po bid 3 days, then 1 po q day 3 days 2011 PREDNISONE 43440958583 No Longer Active Gareth Cancino MD Active CHANTIX STARTING MONTH RUBEN 0.5 MG X 11 & 1 MG X 42 TABS 0.5mg daily for 3 days , then 0.5mg BID for 4 days, then 1mg BID VARENICLINE TARTRATE 00363755072 No Longer Active Gareth Cancino MD Active ALPRAZOLAM 0.25 MG TAB 1/2 to 1 tablet by mouth qhs prn ALPRAZOLAM 31086258115 Active Gareth Cancino MD Active SIMVASTATIN 40 MG TABS Take one by mouth daily SIMVASTATIN 28886523848 Active Gareth Cancino MD Active TRIAMTERENE-HCTZ 37.5-25 MG CAPS Take one by mouth daily TRIAMTERENE- HCTZ 00506782886 Active Gareth Cancino MD Active OMEPRAZOLE 20 MG TBEC Take one by mouth daily OMEPRAZOLE 44284063938 Active Gareth Cancino MD Active CHANTIX STARTING [...] 3 days 2011 PREDNISONE 20 MG TAB 269767 PREDNISONE Inactive DOXYCYCLINE HYCLATE 100 MG CAP 1 cap by mouth twice daily DOXYCYCLINE HYCLATE 100 MG CAP 832807 DOXYCYCLINE HYCLATE Inactive B-12 1000 MCG CAPS Take one by mouth daily B-12 1000 MCG CAPS CYANOCOBALAMIN Inactive VITAMIN B-6 250 MG TABS Take one by mouth daily VITAMIN B-6 250 MG TABS PYRIDOXINE HCL Inactive FOLIC ACID 800 MCG TABS Take one by mouth daily FOLIC ACID 800 MCG TABS 683725 FOLIC ACID Inactive CIPRO 500 MG TABS 1 TAB PO BID CIPRO 500 MG TABS 879452 CIPROFLOXACIN HCL Inactive PREDNISONE 20 MG TAB 1 tab po BID for 3 days, then 1 tab po qday for 3 days PREDNISONE 20 MG TAB 702251 PREDNISONE Inactive BACTRIM DS 800-160 MG TAB 1 tab by mouth twice daily BACTRIM DS 800-160 MG TAB TRIMETHOPRIM-SULFAMETHOXAZOLE Inactive LEVAQUIN 500 MG TAB 1 tablet by mouth daily LEVAQUIN 500 MG TAB 764122 LEVOFLOXACIN Inactive Vital Signs Date Name Value [...] MICROALBUMIN - Chemistry sodium, serum 138 mmol/L 681-611 5130/09/10 potassium, serum 4.2 mmol/L 3.5-5.2 chloride, serum [...] 0.20 mg/dL 0.00-1.00 cholesterol, serum 153 mg/dL 196-097 1562/09/10 triglyceride, serum, fasting 69 mg/dL 30-200 HDL [...] mg/dL Encounters Code Encounter Date Provider Facility CPT-41557 Level 4 Est. Patient 09:22:18 [employer] Gareth Cancino MD [facility] CPT-57403 Level 3 Est. Patient 09:48:04 CDT Gareth Cancino MD [facility] CPT-19229 Level 3 Est. Patient 10:13:16 CDT Gareth Cancino MD [facility] CPT-69316 Level 2 Est. Patient 18:36:56 CDT Gareth Cancino MD [facility] CPT-51518 Level 4 Est. Patient 13:50:53 CDT Gareth Cancino MD [facility] CPT-33771 Level 3 Est. Patient 14:58:33 [employer]LE[employer] CLERK Gareth Cancino MD [facility] CPT-93489 Level 4 Est. Patient 09:25:57 CDT Gareth Cancino MD [facility] CPT-24038 Level 3 Est. Patient 20:39:33 CDT Noman Edwards DO [facility] CPT-45527 Level 2 Est. Patient 13:17:39 CDT Gareth Cancino MD [facility] CPT-50306 Level 3 Est. Patient 13:37:20 CDT Gareth Cancino MD [facility] CPT-66459 Level 3 Est. Patient 18:09:08 CDT Gareth Cancino MD [facility] CPT-05944 Level 4 Est. Patient 09:59:07 CDT Gareth Cancino MD [facility] Procedures Code Procedure Name Date Entry Date Standard Description CPT-G0008 Administration of Influenza Virus Vaccine 10:04:48 [employer] CPT-42322 Fluzone High-Dose Intramuscular Suspension 10:04:48 [employer] CPT-07293 Ribs unilat w PA chst min 3V 10:45:40 CDT CPT-LR Lesion Removal 13:14:55 CDT CPT-Cryo Cryotherapy 13:14:55 CDT CPT-02401 Venipuncture Draw Fee 10:25:49 CDT CPT-06874 Administration single or combination vaccine inc oral 13 :22:14 [employer]ERK CPT-24125 Influenza High Dose age 65+ 13:22:14 [employer]LE[employer] CLERK
--- OUTSIDE RECORDS SUMMARY | 2016-12-06 09:00 | XMS REPORT | Clinical Summary ---
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 Urinary frequency Actinic keratosis 702.0 Active Gareth Cancino MD Actinic keratosis Bronchitis-Acute ICD-466.0 Inactive Gareth Cancino MD Medication List Medication Instructions Start Date Stop Date Generic Name NDC Status Provider Patient Instruction ZOFRAN 4 MG ORAL TABS 1 by mouth every 6 hours prn nausea ONDANSETRON HCL 01975985992 Active Tangela Forte Active TRAMADOL HCL 50 MG TABS 1 po tid PRN TRAMADOL HCL 39273872538 Active Danuta Modi Active HYDROCODONE-ACETAMINOPHEN 5-325 MG TABS 1 tab by mouth every 6 hours as needed for bck pain HYDROCODONE-ACETAMINOPHEN 74534788387 Active Gareth Cancino MD Active ALPRAZOLAM 0.25 MG TAB 1/2 to 1 tablet by mouth qhs prn ALPRAZOLAM 19004238324 No Longer Active Gareth Cancino MD Active CLOBETASOL PROPIONATE 0.05 % CREA apply to hand rash bid CLOBETASOL PROPIONATE 62594384568 No Longer Active Gareth Cancino MD Active BACTROBAN 2 % CREAM Apply to affected area BID MUPIROCIN CALCIUM 10011976732 No Longer Active Gareth Cancino MD Active LISINOPRIL 20 MG TABS 1 tablet by mouth daily for high blood pressure 10/14 LISINOPRIL 88135346846 Active Gareth Cancino MD Active BACTRIM DS 800-160 MG TAB 1 tab by mouth twice daily TRIMETHOPRIM-SULFAMETHOXAZOLE 34326837014 No Longer Active Gareth Cancino MD Active METOPROLOL SUCCINATE ER 100 MG [id number] 1 pill by mouth daily, for blood pressure METOPROLOL SUCCINATE 44504060336 Active Gareth Cancino MD Active KEFLEX 500 MG CAP 1 po TID x 10 days CEPHALEXIN 47367168189 No Longer Active Jillchaim Castillo MOTION GRAPHICS DESIGNER Active WELLBUTRIN SR 150 MG ORAL [id number] take 1 tab po BID BUPROPION HCL 74837503539 Active Gareth Cancino MD Active METOPROLOL SUCCINATE 50 MG TB24 1 tablet by mouth daily METOPROLOL SUCCINATE 12711899991 No Longer Active Gareth Cancino MD Active OMEPRAZOLE 20 MG TBEC Take one by mouth daily OMEPRAZOLE 40991364410 No Longer Active Gareth Cancino MD Active OMEPRAZOLE 40 MG CPDR 1 tab po qday for acid reflux. OMEPRAZOLE 44499681145 Active Mary Shah APRN Active LEVAQUIN 500 MG TAB 1 tablet by mouth daily LEVOFLOXACIN 37796905342 No Longer Active Gareth Cancino MD Active ALEVE 220 MG TAB 2 tab po qd NAPROXEN SODIUM 97586351345 Active Gareth Cancino MD Active ASPIRIN 81 MG CHEW TAB 1 tablet by mouth daily ASPIRIN 90120978356 Active Gareth Cancino MD Active VENTOLIN HFA 108 (90 BASE) MCG/ACT AERS 1-2 puffs four times a day PRN shortness of breath ALBUTEROL SULFATE 39837617901 Active Mary Shah APRN Active CENTRUM SILVER TABS 1 TAB PO DAILY MULTIPLE VITAMINS-MINERALS 36346166329 Active Gareth Cancino MD Active VITAMIN B12 100 MCG TABS 1 TAB PO DAILY CYANOCOBALAMIN 24906378700 Active Gareth Cancino MD Active CIPRO 500 MG TABS 1 TAB PO BID CIPROFLOXACIN HCL 13647624544 No Longer Active Gareth Cancino MD Active BACTRIM DS 800-160 MG TAB 1 tab by mouth twice daily TRIMETHOPRIM-SULFAMETHOXAZOLE 87555102401 No Longer Active Gareth Cancino MD Active PREDNISONE 20 MG TAB 1 tab po BID for 3 days, then 1 tab po qday for 3 days PREDNISONE 61586928027 No Longer Active Gareth Cancino MD Active FOLIC ACID 800 MCG TABS Take one by mouth daily FOLIC ACID 67595733120 No Longer Active Gareth Cancino MD Active VITAMIN B-6 250 MG TABS Take one by mouth daily PYRIDOXINE HCL 61534570573 No Longer Active Gareth Cancino MD Active B-12 1000 MCG CAPS Take one by mouth daily CYANOCOBALAMIN 44699339513 No Longer Active Gareth Cancino MD Active DOXYCYCLINE HYCLATE 100 MG CAP 1 cap by mouth twice daily DOXYCYCLINE HYCLATE 02405446284 No Longer Active Gareth Cancino MD Active PREDNISONE 20 MG TAB 1 po bid 3 days, then 1 po q day 3 days 2011 PREDNISONE 05541938705 No Longer Active Gareth Cancino MD Active CHANTIX STARTING MONTH RUBEN 0.5 MG X 11 & 1 MG X 42 TABS 0.5mg daily for 3 days , then 0.5mg BID for 4 days, then 1mg BID VARENICLINE TARTRATE 19949231835 No Longer Active Gareth Cancino MD Active SIMVASTATIN 40 MG TABS Take one by mouth daily SIMVASTATIN 46936789410 Active Gareth Cancino MD Active TRIAMTERENE-HCTZ 37.5-25 MG CAPS Take one by mouth daily TRIAMTERENE- HCTZ 78540054066 Active Gareth Cancino MD Active CHANTIX STARTING [...] 3 days 2011 PREDNISONE 20 MG TAB 689167 PREDNISONE Inactive DOXYCYCLINE HYCLATE 100 MG CAP 1 cap by mouth twice daily DOXYCYCLINE HYCLATE 100 MG CAP 3147233 DOXYCYCLINE HYCLATE Inactive B-12 1000 MCG CAPS Take one by mouth daily B-12 1000 MCG CAPS CYANOCOBALAMIN Inactive VITAMIN B-6 250 MG TABS Take one by mouth daily VITAMIN B-6 250 MG TABS PYRIDOXINE HCL Inactive FOLIC ACID 800 MCG TABS Take one by mouth daily FOLIC ACID 800 MCG TABS 148850 FOLIC ACID Inactive CIPRO 500 MG TABS 1 TAB PO BID CIPRO 500 MG TABS 239123 CIPROFLOXACIN HCL Inactive OMEPRAZOLE 20 MG TBEC Take one by mouth daily OMEPRAZOLE 20 MG TBEC 329181 OMEPRAZOLE Inactive METOPROLOL SUCCINATE 50 MG TB24 1 tablet by mouth daily METOPROLOL SUCCINATE 50 MG TB24 METOPROLOL SUCCINATE Inactive BACTROBAN 2 % CREAM Apply to affected area BID BACTROBAN 2 % CREAM 908765 MUPIROCIN CALCIUM Inactive CLOBETASOL PROPIONATE 0.05 % CREA apply to hand rash bid CLOBETASOL PROPIONATE 0.05 % CREA 843348 CLOBETASOL PROPIONATE Inactive ALPRAZOLAM 0.25 MG TAB 1/2 to 1 tablet by mouth qhs prn ALPRAZOLAM 0.25 MG TAB 430758 ALPRAZOLAM Inactive PREDNISONE 20 MG TAB 1 tab po BID for 3 days, then 1 tab po qday for 3 days PREDNISONE 20 MG TAB 216026 PREDNISONE Inactive BACTRIM DS 800-160 MG TAB 1 tab by mouth twice daily BACTRIM DS 800-160 MG TAB 883448 TRIMETHOPRIM-SULFAMETHOXAZOLE Inactive LEVAQUIN 500 MG TAB 1 tablet by mouth daily LEVAQUIN 500 MG TAB 371302 LEVOFLOXACIN Inactive KEFLEX 500 MG CAP 1 po TID x 10 days KEFLEX 500 MG CAP 760908 CEPHALEXIN Inactive BACTRIM DS 800-160 MG TAB [...] Panel - Chemistry sodium, serum 133 mmol/L 917-405 2278/08/24 potassium, serum 4.4 mmol/L 3.5-5.2 chloride, serum 95 mmol/L 98-107 carbon dioxide, venous blood 33.0 mmol/L 21.0-32.0 blood glucose 107 mg/dL 65-110 calcium, serum 8.8 mg/dL 8.5-10.1 urea nitrogen, blood 12 mg/dL 7-18 creatinine, serum 0.69 mg/dL 0.55-1.30 Lab Report: Lipid Panel, Comp. Metabolic Panel, CBC W/DIFF, MICROALB/CRE ... - Chemistry albumin/creatinine ratio, urine < 30 mg/g mg/g{creat} 0-29 cholesterol, serum 195 mg/dL 103-236 7627/12/02 triglyceride, serum, fasting 74 mg/dL 30-200 HDL cholesterol, serum 52 mg/dL 32-96 LDL cholesterol, serum 128 mg/dL 0-130 sodium, serum 134 mmol/L 391-292 5902/12/02 carbon dioxide, venous blood 30.3 mmol/L 21.0-32.0 [...] 5.0-8.5 Encounters Code Encounter Date Provider Facility CPT-14188 Level 4 Est. Patient 09:00:18 CDT Gareth Cancino MD [facility] CPT-65052 Level 3 Est. Patient 15:12:03 CDT Gareth Cancino MD [facility] CPT-64180 Level 3 Est. Patient 23:08:20 CDT Gareth Cancino MD [facility] CPT-32505 Level 4 Est. Patient 20:40:10 CDT Gareth Cancino MD [facility] CPT-27622 Level 4 Est. Patient 19:50:11 CDT Gareth Cancino MD [facility] CPT-58493 Level 3 Est. Patient 11:00:13 CDT Gareth Cancino MD [facility] CPT-84766 Level 4 Est. Patient 11:20:21 CDT Gareth Cancino MD [facility] CPT-37774 Level 4 Est. Patient 09:22:18 INTEGRATIVE MEDICINE PHYSICIAN Gareth Cancino MD [facility] CPT-18720 Level 3 Est. Patient 09:48:04 CDT Gareth Cancino MD [facility] CPT-77031 Level 3 Est. Patient 10:13:16 CDT Gareth Cancino MD [facility] CPT-64797 Level 2 Est. Patient 18:36:56 CDT Gareth Cancino MD [facility] CPT-11252 Level 4 Est. Patient 13:50:53 CDT Gareth Cancino MD [facility] CPT-05594 Level 3 Est. Patient 14:58:33 INTEGRATIVE MEDICINE PHYSICIAN Gareth Cancino MD [facility] CPT-38866 Level 4 Est. Patient 09:25:57 CDT Gareth Cancino MD [facility] CPT-71711 Level 3 Est. Patient 20:39:33 CDT Noman Edwards DO [facility] CPT-22286 Level 2 Est. Patient 13:17:39 CDT Gareth Cancino MD [facility] CPT-91775 Level 3 Est. Patient 13:37:20 CDT Gareth Cancino MD [facility] CPT-85508 Level 3 Est. Patient 18:09:08 CDT Gareth Cancino MD [facility] CPT-77041 Level 4 Est. Patient 09:59:07 CDT Gareth Cancino MD [facility] Procedures Code Procedure Name Date Entry Date Standard Description CPT-49083 Venipuncture Draw Fee 10:33:47 CDT CPT-50285 BMP - LAB USE ONLY 10:33:46 CDT CPT-Cryo Cryotherapy 15:12:03 CDT CPT-91235 LS spine AP and Lat - XRAY USE ONLY 10:31:51 CDT 07/27 CPT-72831 Punch biopsy 1 lsn 20:40:09 CDT CPT-G0008 Administration of Influenza Virus Vaccine 10:04:48 INTEGRATIVE MEDICINE PHYSICIAN CPT-81937 Fluzone High-Dose Intramuscular Suspension 10:04:48 INTEGRATIVE MEDICINE PHYSICIAN CPT-22072 Ribs unilat w PA chst min 3V 10:45:40 CDT CPT-LR Lesion Removal 13:14:55 CDT CPT-Cryo Cryotherapy 13:14:55 CDT CPT-76024 Venipuncture Draw Fee 10:25:49 CDT CPT-04211 Administration single or combination vaccine inc oral 13 :22:14 INTEGRATIVE MEDICINE PHYSICIAN CPT-11445 Influenza High Dose age 65+ 13:22:14 INTEGRATIVE MEDICINE PHYSICIAN
--- OUTSIDE RECORDS SUMMARY | 2016-12-06 09:01 | XMS REPORT | Clinical Summary ---
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 Urinary frequency Actinic keratosis 702.0 Active [...] MG ORAL TABS 1 tab daily AZITHROMYCIN 58823329228 No Longer Active Gareth Cancino MD Active ZITHROMAX 250 MG TAB 2 po today, then 1 po q days 2-5 AZITHROMYCIN 71951960216 No Longer Active Tangela Forte Active IPRATROPIUM-ALBUTEROL 0.5-2.5 (3) MG/3ML INH SOLN nebulize 1 vial every 6hrs prn shortness of breath IPRATROPIUM-ALBUTEROL 26793446330 Active Gareth Cancino MD Active FENTANYL 25 MCG/HR PT72 Apply to clean, dry skin and change every 72 hours FENTANYL 64813108094 Active Gareth Cancino MD Active WELLBUTRIN SR 150 MG ORAL BB65G-CUP take 1 tab po BID BUPROPION HCL 65200063275 No Longer Active Gareth Cancino MD Active ZOFRAN 4 MG ORAL TABS 1 by mouth every 6 hours prn nausea ONDANSETRON HCL 99919446904 Active Tangela Forte Active TRAMADOL HCL 50 MG TABS 1 po tid PRN TRAMADOL HCL 78396402528 Active Gareth Cancino MD Active HYDROCODONE-ACETAMINOPHEN 5-325 MG TABS 1 tab by mouth every 6 hours as needed for bck pain HYDROCODONE-ACETAMINOPHEN 71478792580 Active Gareth Cancino MD Active ALPRAZOLAM 0.25 MG TAB 1/2 to 1 tablet by mouth qhs prn ALPRAZOLAM 02062432097 No Longer Active Gareth Cancino MD Active CLOBETASOL PROPIONATE 0.05 % CREA apply to hand rash bid CLOBETASOL PROPIONATE 42128044799 No Longer Active Gareth Cancino MD Active BACTROBAN 2 % CREAM Apply to affected area BID MUPIROCIN CALCIUM 92888886599 No Longer Active Gareth Cancino MD Active LISINOPRIL 20 MG TABS 1 tablet by mouth daily for high blood pressure 10/14 LISINOPRIL 48567169411 Active Gareth Cancino MD Active BACTRIM DS 800-160 MG TAB 1 tab by mouth twice daily TRIMETHOPRIM-SULFAMETHOXAZOLE 91190396542 No Longer Active Gareth Cancino MD Active METOPROLOL SUCCINATE ER 100 MG [id number] 1 pill by mouth daily, for blood pressure METOPROLOL SUCCINATE 38178739114 Active Gareth Cancino MD Active KEFLEX 500 MG CAP 1 po TID x 10 days CEPHALEXIN 10038913055 No Longer Active Blanca Castillo APRN Active METOPROLOL SUCCINATE 50 MG TB24 1 tablet by mouth daily METOPROLOL SUCCINATE 11360426765 No Longer Active Gareth Cancino MD Active OMEPRAZOLE 20 MG TBEC Take one by mouth daily OMEPRAZOLE 56640991862 No Longer Active Gareth Cancino MD Active OMEPRAZOLE 40 MG CPDR 1 tab po qday for acid reflux. OMEPRAZOLE 08411708142 Active Mary Shah APRN Active LEVAQUIN 500 MG TAB 1 tablet by mouth daily LEVOFLOXACIN 79260770073 No Longer Active Gareth Cancino MD Active ALEVE 220 MG TAB 2 tab po qd NAPROXEN SODIUM 84454555780 Active Gareth Cancino MD Active ASPIRIN 81 MG CHEW TAB 1 tablet by mouth daily ASPIRIN 28137339794 Active Gareth Cancino MD Active VENTOLIN HFA 108 (90 BASE) MCG/ACT AERS 1-2 puffs four times a day PRN shortness of breath ALBUTEROL SULFATE 23992997767 Active Mary Shah BLENDER SNUFF Active CENTRUM SILVER TABS 1 TAB PO DAILY MULTIPLE VITAMINS-MINERALS 17254935898 Active Gareth Cancino MD Active VITAMIN B12 100 MCG TABS 1 TAB PO DAILY CYANOCOBALAMIN 03707323101 Active Gareth Cancino MD Active CIPRO 500 MG TABS 1 TAB PO BID CIPROFLOXACIN HCL 58349059080 No Longer Active Gareth Cancino MD Active BACTRIM DS 800-160 MG TAB 1 tab by mouth twice daily TRIMETHOPRIM-SULFAMETHOXAZOLE 44632525685 No Longer Active Gareth Cancino MD Active PREDNISONE 20 MG TAB 1 tab po BID for 3 days, then 1 tab po qday for 3 days PREDNISONE 12914343872 No Longer Active Gareth Cancino MD Active FOLIC ACID 800 MCG TABS Take one by mouth daily FOLIC ACID 78309877809 No Longer Active Gareth Cancino MD Active VITAMIN B-6 250 MG TABS Take one by mouth daily PYRIDOXINE HCL 37617878139 No Longer Active Gareth Cancino MD Active B-12 1000 MCG CAPS Take one by mouth daily CYANOCOBALAMIN 70042666739 No Longer Active Gareth Cancino MD Active DOXYCYCLINE HYCLATE 100 MG CAP 1 cap by mouth twice daily DOXYCYCLINE HYCLATE 44825202234 No Longer Active Gareth Cancino MD Active PREDNISONE 20 MG TAB 1 po bid 3 days, then 1 po q day 3 days 2011 PREDNISONE 36912313580 No Longer Active Gareth Cancino MD Active CHANTIX STARTING MONTH RUBEN 0.5 MG X 11 & 1 MG X 42 TABS 0.5mg daily for 3 days , then 0.5mg BID for 4 days, then 1mg BID VARENICLINE TARTRATE 12912757286 No Longer Active Gareth Cancino MD Active SIMVASTATIN 40 MG TABS Take one by mouth daily SIMVASTATIN 98853497567 Active Gareth Cancino MD Active TRIAMTERENE-HCTZ 37.5-25 MG CAPS Take one by mouth daily TRIAMTERENE- HCTZ 78354735506 Active Gareth Cancino MD Active CHANTIX STARTING [...] 3 days 2011 PREDNISONE 20 MG TAB 931972 PREDNISONE Inactive DOXYCYCLINE HYCLATE 100 MG CAP 1 cap by mouth twice daily DOXYCYCLINE HYCLATE 100 MG CAP 4922253 DOXYCYCLINE HYCLATE Inactive B-12 1000 MCG CAPS Take one by mouth daily B-12 1000 MCG CAPS CYANOCOBALAMIN Inactive VITAMIN B-6 250 MG TABS Take one by mouth daily VITAMIN B-6 250 MG TABS PYRIDOXINE HCL Inactive FOLIC ACID 800 MCG TABS Take one by mouth daily FOLIC ACID 800 MCG TABS 737632 FOLIC ACID Inactive CIPRO 500 MG TABS 1 TAB PO BID CIPRO 500 MG TABS 509762 CIPROFLOXACIN HCL Inactive OMEPRAZOLE 20 MG TBEC Take one by mouth daily OMEPRAZOLE 20 MG TBEC 313332 OMEPRAZOLE Inactive METOPROLOL SUCCINATE 50 MG TB24 1 tablet by mouth daily METOPROLOL SUCCINATE 50 MG TB24 METOPROLOL SUCCINATE Inactive BACTROBAN 2 % CREAM Apply to affected area BID BACTROBAN 2 % CREAM 782604 MUPIROCIN CALCIUM Inactive CLOBETASOL PROPIONATE 0.05 % CREA apply to hand rash bid 2016/06/ 06 CLOBETASOL PROPIONATE 0.05 % CREA 257981 CLOBETASOL PROPIONATE Inactive ALPRAZOLAM 0.25 MG TAB 1/2 to 1 tablet by mouth qhs prn ALPRAZOLAM 0.25 MG TAB 402113 ALPRAZOLAM Inactive WELLBUTRIN SR 150 MG ORAL BN60F-IVE take 1 tab po BID WELLBUTRIN SR 150 MG ORAL SZ25P-PED BUPROPION HCL Inactive AZITHROMYCIN 250 MG ORAL TABS 1 tab daily AZITHROMYCIN 250 MG ORAL TABS 1952352 AZITHROMYCIN Inactive PREDNISONE 20 MG TAB 1 tab po BID for 3 days, then 1 tab po qday for 3 days PREDNISONE 20 MG TAB 903450 PREDNISONE Inactive BACTRIM DS 800-160 MG TAB 1 tab by mouth twice daily BACTRIM DS 800-160 MG TAB 935870 TRIMETHOPRIM-SULFAMETHOXAZOLE Inactive LEVAQUIN 500 MG TAB 1 tablet by mouth daily LEVAQUIN 500 MG TAB 459800 LEVOFLOXACIN Inactive KEFLEX 500 MG CAP 1 po TID x 10 days KEFLEX 500 MG CAP 718328 CEPHALEXIN Inactive BACTRIM DS 800-160 MG TAB 1 tab by mouth twice daily BACTRIM DS 800-160 MG TAB 919080 TRIMETHOPRIM-SULFAMETHOXAZOLE Inactive ZITHROMAX 250 MG TAB 2 po today, then 1 po q days 2-5 ZITHROMAX 250 MG TAB 1163338 AZITHROMYCIN Inactive Vital Signs Date Name Value [...] Panel - Chemistry sodium, serum 133 mmol/L 715-791 3261/08/24 potassium, serum 4.4 mmol/L 3.5-5.2 chloride, serum 95 mmol/L 98-107 carbon dioxide, venous blood 33.0 mmol/L 21.0-32.0 blood glucose 107 mg/dL 65-110 calcium, serum 8.8 mg/dL 8.5-10.1 urea nitrogen, blood 12 mg/dL 7-18 creatinine, serum 0.69 mg/dL 0.55-1.30 Lab Report: CBC, Basic Metabolic Panel - Chemistry sodium, serum 132 mmol/L 478-052 9998/10/12 potassium, serum 4.7 mmol/L 3.5-5.2 chloride, serum [...] CBC - Chemistry sodium, serum 136 mmol/L 051-507 4269/11/01 carbon dioxide, venous blood 32.1 mmol/L 21.0-32.0 [...] mg/g mg/g{creat} 0-29 cholesterol, serum 195 mg/dL 544-310 2983/12/02 triglyceride, serum, fasting 74 mg/dL 30-200 HDL cholesterol, serum 52 mg/dL 32-96 LDL cholesterol, serum 128 mg/dL 0-130 sodium, serum 134 mmol/L 103-056 3109/12/02 carbon dioxide, venous blood 30.3 mmol/L 21.0-32.0 [...] 5.0-8.5 Encounters Code Encounter Date Provider Facility CPT-96602 Level 3 Est. Patient 10:34:55 CDT Gareth Cancino MD [facility] CPT-02578 Level 4 Est. Patient 09:00:18 CDT Gareth Cancino MD [facility] CPT-83532 Level 3 Est. Patient 15:12:03 CDT Gareth Cancino MD [facility] CPT-37764 Level 3 Est. Patient 23:08:20 CDT Gareth Cancino MD [facility] CPT-54958 Level 4 Est. Patient 20:40:10 CDT Gareth Cancino MD [facility] CPT-30557 Level 4 Est. Patient 19:50:11 CDT Gareth Cancino MD [facility] CPT-35784 Level 3 Est. Patient 11:00:13 CDT Gareth Cancino MD [facility] CPT-08536 Level 4 Est. Patient 11:20:21 CDT Gareth Cancino MD [facility] CPT-25157 Level 4 Est. Patient 09:22:18 WELL TENDER Gareth Cancino MD [facility] CPT-68183 Level 3 Est. Patient 09:48:04 CDT Gareth Cancino MD [facility] CPT-52338 Level 3 Est. Patient 10:13:16 CDT Gareth Cancino MD [facility] CPT-26746 Level 2 Est. Patient 18:36:56 CDT Gareth Cancino MD [facility] CPT-32967 Level 4 Est. Patient 13:50:53 CDT Gareth Cancino MD [facility] CPT-33996 Level 3 Est. Patient 14:58:33 WELL TENDER Gareth Cancino MD [facility] CPT-25786 Level 4 Est. Patient 09:25:57 CDT Gareth Cancino MD [facility] CPT-55156 Level 3 Est. Patient 20:39:33 CDT Noman Edwards DO [facility] CPT-91085 Level 2 Est. Patient 13:17:39 CDT Gareth Cancino MD [facility] CPT-68477 Level 3 Est. Patient 13:37:20 CDT Gareth Cancino MD [facility] CPT-33849 Level 3 Est. Patient 18:09:08 CDT Gareth Cancino MD [facility] CPT-07129 Level 4 Est. Patient 09:59:07 CDT Gareth Cancino MD [facility] Procedures Code Procedure Name Date Entry Date Standard Description CPT-40792 CMP - LAB USE ONLY 16:31:15 CDT CPT-38296 CBC - LAB USE ONLY 16:31:14 CDT CPT-17098 Venipuncture Draw Fee 16:31:14 CDT CPT-53440 BMP - LAB USE ONLY 14:37:27 CDT CPT-06040 CBC - LAB USE ONLY 14:37:27 CDT CPT-81722 Venipuncture Draw Fee 14:37:27 CDT CPT-TCMM Transitional Care Mgmt-Moderate 14:43:38 CDT CPT-84329 Venipuncture Draw Fee 10:33:47 CDT CPT-86265 BMP - LAB USE ONLY 10:33:46 CDT CPT-Cryo Cryotherapy 15:12:03 CDT CPT-34633 LS spine AP and Lat - XRAY USE ONLY 10:31:51 CDT 07/27 CPT-76172 Punch biopsy 1 lsn 20:40:09 CDT CPT-G0008 Administration of Influenza Virus Vaccine 10:04:48 WELL TENDER CPT-65508 Fluzone High-Dose Intramuscular Suspension 10:04:48 WELL TENDER CPT-81849 Ribs unilat w PA chst min 3V 10:45:40 CDT CPT-LR Lesion Removal 13:14:55 CDT CPT-Cryo Cryotherapy 13:14:55 CDT CPT-36929 Venipuncture Draw Fee 10:25:49 CDT CPT-36943 Administration single or combination vaccine inc oral 13 :22:14 WELL TENDER CPT-84553 Influenza High Dose age 65+ 13:22:14 WELL TENDER
--- OUTSIDE RECORDS SUMMARY | 2016-12-06 09:02 | XMS REPORT | Clinical Summary ---
Author Author Admin, HILARIA Organization [employer] Address Unknown Phone Unavailable Allergies, Adverse [...] Gareth Cancino MD SEBACEOUS CYST ICD-706.2 Inactive Gaerth Cancino MD ENCOUNTER FOR REMOVAL OF SUTURES [...] PT72 1 patch every 72 hours FENTANYL 24121601272 Active Mary Shah APRN Active PREDNISONE 20 MG TAB take 3 tabs daily for 3 days, 2 tabs daily for 3 days, 1 tab daily for 3 days, 1/2 tab daily for 4 days PREDNISONE 39417431556 No Longer Active Mary Shah APRN Active LEVAQUIN 500 MG TAB 1 tablet by mouth daily for 7 days LEVOFLOXACIN 02153907455 Active Marylennox Shah APRN Active AZITHROMYCIN 250 MG TABS 2 po qd x 1 day, then 1 po qd x 4 days AZITHROMYCIN 98829780031 No Longer Active Danuta Modi Active AZITHROMYCIN 250 MG TABS 2 po qd x 1 day, then 1 po qd x 4 days AZITHROMYCIN 88795597756 No Longer Active Tangela Rameseret Active HYDROCODONE-ACETAMINOPHEN 5-325 MG TABS 1 tab by mouth every 6 hours as needed for bck pain HYDROCODONE-ACETAMINOPHEN 71575366088 No Longer Active Gareth Cancino MD Active ALPRAZOLAM 0.25 MG TAB 1 tablet by mouth q hs prn ALPRAZOLAM 24766717351 Active Gareth Cancino MD Active AZITHROMYCIN 250 MG ORAL TABS 1 tab daily AZITHROMYCIN 82900224245 No Longer Active Gareth Cancino MD Active ZITHROMAX 250 MG TAB 2 po today, then 1 po q days 2-5 AZITHROMYCIN 12773252431 No Longer Active Tangelashar Forte Active IPRATROPIUM-ALBUTEROL 0.5-2.5 (3) MG/3ML INH SOLN nebulize 1 vial every 6hrs prn shortness of breath IPRATROPIUM-ALBUTEROL 49578572066 Active Gareth Cancino MD Active FENTANYL 25 MCG/HR PT72 Apply to clean, dry skin and change every 72 hours FENTANYL 30186744377 No Longer Active Gareth Cancino MD Active WELLBUTRIN SR 150 MG ORAL [id number] take 1 tab po BID BUPROPION HCL 89362728256 No Longer Active Gareth Cancino MD Active ZOFRAN 4 MG ORAL TABS 1 by mouth every 6 hours prn nausea ONDANSETRON HCL 26816750647 Active Tangela Forte Active TRAMADOL HCL 50 MG TABS 1 po tid PRN TRAMADOL HCL 42881216016 Active Gareth Cancino MD Active ALPRAZOLAM 0.25 MG TAB 1/2 to 1 tablet by mouth qhs prn ALPRAZOLAM 20771899786 No Longer Active Gareth Cancino MD Active CLOBETASOL PROPIONATE 0.05 % CREA apply to hand rash bid CLOBETASOL PROPIONATE 77573483304 No Longer Active Gareth Cancino MD Active BACTROBAN 2 % CREAM Apply to affected area BID MUPIROCIN CALCIUM 94464701135 No Longer Active Gareth Cancino MD Active LISINOPRIL 20 MG TABS 1 tablet by mouth daily for high blood pressure 10/14 LISINOPRIL 78755271689 Active Mary Shah APRN Active BACTRIM DS 800-160 MG TAB 1 tab by mouth twice daily TRIMETHOPRIM-SULFAMETHOXAZOLE 90081181208 No Longer Active Gareth Cancino MD Active METOPROLOL SUCCINATE ER 100 MG [id number] 1 pill by mouth daily, for blood pressure METOPROLOL SUCCINATE 81006609023 Active Mary Shah APRN Active KEFLEX 500 MG CAP 1 po TID x 10 days CEPHALEXIN 83472206190 No Longer Active Blanca Castillo APRN Active METOPROLOL SUCCINATE 50 MG TB24 1 tablet by mouth daily METOPROLOL SUCCINATE 23854881566 No Longer Active Gareth Cancino MD Active OMEPRAZOLE 20 MG TBEC Take one by mouth daily OMEPRAZOLE 37510422071 No Longer Active Gareth Cancino MD Active OMEPRAZOLE 40 MG CPDR 1 tab po qday for acid reflux. OMEPRAZOLE 47644105353 Active Mary Shah APRN Active LEVAQUIN 500 MG TAB 1 tablet by mouth daily LEVOFLOXACIN 01726323284 No Longer Active Gareth Cancino MD Active ALEVE 220 MG TAB 2 tab po qd NAPROXEN SODIUM 65937137688 Active Gareth Cancino MD Active ASPIRIN 81 MG CHEW TAB 1 tablet by mouth daily ASPIRIN 48300518062 Active Gareth Cancino MD Active VENTOLIN HFA 108 (90 BASE) MCG/ACT AERS 1-2 puffs four times a day PRN shortness of breath ALBUTEROL SULFATE 90722488210 Active Mary Shah FRICTION SAW OPERATOR Active CENTRUM SILVER TABS 1 TAB PO DAILY MULTIPLE VITAMINS-MINERALS 82814973727 Active Gareth Cancino MD Active VITAMIN B12 100 MCG TABS 1 TAB PO DAILY CYANOCOBALAMIN 17251058654 Active Gareth Cancino MD Active CIPRO 500 MG TABS 1 TAB PO BID CIPROFLOXACIN HCL 57527566082 No Longer Active Gareth Cancino MD Active BACTRIM DS 800-160 MG TAB 1 tab by mouth twice daily TRIMETHOPRIM-SULFAMETHOXAZOLE 58926453438 No Longer Active Gareth Cancino MD Active PREDNISONE 20 MG TAB 1 tab po BID for 3 days, then 1 tab po qday for 3 days PREDNISONE 25362229380 No Longer Active Gareth Cancino MD Active FOLIC ACID 800 MCG TABS Take one by mouth daily FOLIC ACID 55902138839 No Longer Active Gareth Cancino MD Active VITAMIN B-6 250 MG TABS Take one by mouth daily PYRIDOXINE HCL 67162973833 No Longer Active Gareth Cancino MD Active B-12 1000 MCG CAPS Take one by mouth daily CYANOCOBALAMIN 12573693944 No Longer Active Gareth Cancino MD Active DOXYCYCLINE HYCLATE 100 MG CAP 1 cap by mouth twice daily DOXYCYCLINE HYCLATE 65362924829 No Longer Active Gareth Cancino MD Active PREDNISONE 20 MG TAB 1 po bid 3 days, then 1 po q day 3 days 2011 PREDNISONE 94941461190 No Longer Active Gareth Cancino MD Active CHANTIX STARTING MONTH RUBEN 0.5 MG X 11 & 1 MG X 42 TABS 0.5mg daily for 3 days , then 0.5mg BID for 4 days, then 1mg BID VARENICLINE TARTRATE 48340958310 No Longer Active Gareth Cancino MD Active SIMVASTATIN 40 MG TABS Take one by mouth daily SIMVASTATIN 91640558540 Active Gareth Cancino MD Active TRIAMTERENE-HCTZ 37.5-25 MG CAPS Take one by mouth daily TRIAMTERENE- HCTZ 64690446070 Active Gareth Cancino MD Active CHANTIX STARTING [...] 3 days 2011 PREDNISONE 20 MG TAB 984345 PREDNISONE Inactive DOXYCYCLINE HYCLATE 100 MG CAP 1 cap by mouth twice daily DOXYCYCLINE HYCLATE 100 MG CAP 2780825 DOXYCYCLINE HYCLATE Inactive B-12 1000 MCG CAPS Take one by mouth daily B-12 1000 MCG CAPS CYANOCOBALAMIN Inactive VITAMIN B-6 250 MG TABS Take one by mouth daily VITAMIN B-6 250 MG TABS PYRIDOXINE HCL Inactive FOLIC ACID 800 MCG TABS Take one by mouth daily FOLIC ACID 800 MCG TABS 103535 FOLIC ACID Inactive CIPRO 500 MG TABS 1 TAB PO BID CIPRO 500 MG TABS 000884 CIPROFLOXACIN HCL Inactive OMEPRAZOLE 20 MG TBEC Take one by mouth daily OMEPRAZOLE 20 MG TBEC 689747 OMEPRAZOLE Inactive METOPROLOL SUCCINATE 50 MG TB24 1 tablet by mouth daily METOPROLOL SUCCINATE 50 MG TB24 METOPROLOL SUCCINATE Inactive BACTROBAN 2 % CREAM Apply to affected area BID BACTROBAN 2 % CREAM 687686 MUPIROCIN CALCIUM Inactive CLOBETASOL PROPIONATE 0.05 % CREA apply to hand rash bid CLOBETASOL PROPIONATE 0.05 % CREA 557728 CLOBETASOL PROPIONATE Inactive ALPRAZOLAM 0.25 MG TAB 1/2 to 1 tablet by mouth qhs prn ALPRAZOLAM 0.25 MG TAB 575480 ALPRAZOLAM Inactive WELLBUTRIN SR 150 MG ORAL [id number] take 1 tab po BID WELLBUTRIN SR 150 MG ORAL [id number] BUPROPION HCL Inactive AZITHROMYCIN 250 MG ORAL TABS 1 tab daily AZITHROMYCIN 250 MG ORAL TABS 6656426 AZITHROMYCIN Inactive HYDROCODONE-ACETAMINOPHEN 5-325 MG TABS 1 tab by mouth every 6 hours as needed for bck pain HYDROCODONE-ACETAMINOPHEN 5-325 MG TABS 062643 HYDROCODONE-ACETAMINOPHEN Inactive PREDNISONE 20 MG TAB 1 tab po BID for 3 days, then 1 tab po qday for 3 days PREDNISONE 20 MG TAB 940301 PREDNISONE Inactive BACTRIM DS 800-160 MG TAB 1 tab by mouth twice daily BACTRIM DS 800-160 MG TAB 707974 TRIMETHOPRIM-SULFAMETHOXAZOLE Inactive LEVAQUIN 500 MG TAB 1 tablet by mouth daily LEVAQUIN 500 MG TAB 349594 LEVOFLOXACIN Inactive KEFLEX 500 MG CAP 1 po TID x 10 days KEFLEX 500 MG CAP 939000 CEPHALEXIN Inactive BACTRIM DS 800-160 MG TAB 1 tab by mouth twice daily BACTRIM DS 800-160 MG TAB 19820425 TRIMETHOPRIM-SULFAMETHOXAZOLE Inactive FENTANYL 25 MCG/HR PT72 Apply to clean, dry skin and change every 72 hours FENTANYL 25 MCG/HR PT72 596746 FENTANYL Inactive ZITHROMAX 250 MG TAB 2 po today, then 1 po q days 2-5 ZITHROMAX 250 MG TAB 1422203 AZITHROMYCIN Inactive AZITHROMYCIN 250 MG TABS 2 po qd x 1 day, then 1 po qd x 4 days AZITHROMYCIN 250 MG TABS 6065808 AZITHROMYCIN Inactive AZITHROMYCIN 250 MG TABS 2 po qd x 1 day, then 1 po qd x 4 days AZITHROMYCIN 250 MG TABS 2792751 AZITHROMYCIN Inactive PREDNISONE 20 MG TAB take 3 tabs daily for 3 days, 2 tabs daily for 3 days, 1 tab daily for 3 days, 1/2 tab daily for 4 days PREDNISONE 20 MG TAB 594348 PREDNISONE Inactive Vital Signs Date Name Value [...] Panel - Chemistry sodium, serum 133 mmol/L 428-304 0387/08/24 potassium, serum 4.4 mmol/L 3.5-5.2 chloride, serum 95 mmol/L 98-107 carbon dioxide, venous blood 33.0 mmol/L 21.0-32.0 blood glucose 107 mg/dL 65-110 calcium, serum 8.8 mg/dL 8.5-10.1 urea nitrogen, blood 12 mg/dL 7-18 creatinine, serum 0.69 mg/dL 0.55-1.30 Lab Report: CBC, Basic Metabolic Panel - Chemistry sodium, serum 132 mmol/L 138-873 0140/10/12 potassium, serum 4.7 mmol/L 3.5-5.2 chloride, serum [...] CBC - Chemistry sodium, serum 136 mmol/L 820-490 4261/11/01 carbon dioxide, venous blood 32.1 mmol/L 21.0-32.0 [...] Negative Encounters Code Encounter Date Provider Facility CPT-38332 Level 3 Est. Patient 09:05:25 FOOT PIECE ASSEMBLER Mary Shah APRN [facility] CPT-32073 Level 3 Est. Patient 20:53:25 FOOT PIECE ASSEMBLER Gareth Cancino MD [facility] CPT-17531 Level 3 Est. Patient 10:34:55 CDT Gareth Cancino MD [facility] CPT-34589 Level 4 Est. Patient 09:00:18 CDT Gareth Cancino MD [facility] CPT-71955 Level 3 Est. Patient 15:12:03 CDT Gareth Cancino MD [facility] CPT-93334 Level 3 Est. Patient 23:08:20 CDT Gareth Cancino MD [facility] CPT-05154 Level 4 Est. Patient 20:40:10 CDT Gareth Cancino MD [facility] CPT-87237 Level 4 Est. Patient 19:50:11 CDT Gareth Cancino MD [facility] CPT-49533 Level 3 Est. Patient 11:00:13 CDT Gareth Cancino MD [facility] CPT-08756 Level 4 Est. Patient 11:20:21 CDT Gareth Cancino MD [facility] CPT-98123 Level 4 Est. Patient 09:22:18 FOOT PIECE ASSEMBLER Gareth Cancino MD [facility] CPT-04693 Level 3 Est. Patient 09:48:04 CDT Gareth Cancino MD [facility] CPT-65874 Level 3 Est. Patient 10:13:16 CDT Gareth Cancino MD [facility] CPT-79812 Level 2 Est. Patient 18:36:56 CDT Gareth Cancino MD [facility] CPT-11481 Level 4 Est. Patient 13:50:53 CDT Gareth Cancino MD [facility] CPT-95461 Level 3 Est. Patient 14:58:33 FOOT PIECE ASSEMBLER Gareth Cancino MD [facility] CPT-47309 Level 4 Est. Patient 09:25:57 CDT Gareth Cancino MD [facility] CPT-56803 Level 3 Est. Patient 20:39:33 CDT Noman Edwards DO [facility] CPT-08764 Level 2 Est. Patient 13:17:39 CDT Gareth Cancino MD [facility]-36101 Level 3 Est. Patient 13:37:20 CDT Gareth Cancino MD [facility] CPT-41213 Level 3 Est. Patient 18:09:08 CDT Gareth Cancino MD [facility] CPT-54532 Level 4 Est. Patient 09:59:07 CDT Gareth Cancino MD [facility] Procedures Code Procedure Name Date Entry Date Standard Description CPT-000 Give Appropriate Flu Vaccine 09:29:52 FOOT PIECE ASSEMBLER CPT-000 Give Appropriate Flu Vaccine 09:22:20 FOOT PIECE ASSEMBLER CPT-96447 TSH - LAB USE ONLY 08:11:40 FOOT PIECE ASSEMBLER CPT-56891 Free T4 - LAB USE ONLY 08:11:40 FOOT PIECE ASSEMBLER CPT-09919 Venipuncture Draw Fee 08:11:40 FOOT PIECE ASSEMBLER CPT-85463 UA w micro - LAB USE ONLY 14:26:22 FOOT PIECE ASSEMBLER CPT-G0438 Initial Annual Wellness Exam 20:53:25 FOOT PIECE ASSEMBLER CPT-G0009 Administration of Pneumococcal Vaccine 11:42:53 FOOT PIECE ASSEMBLER CPT-39185 Prevnar 13 Intramuscular Suspension 11:42:53 FOOT PIECE ASSEMBLER 01/07 CPT-94889 First Vx - Ix admin for Medicare patients 11:39:44 FOOT PIECE ASSEMBLER CPT-72875 Fluzone High-Dose Intramuscular Suspension 11:39:44 FOOT PIECE ASSEMBLER CPT-92323 Prevnar 13 Intramuscular Suspension 09:29:52 FOOT PIECE ASSEMBLER 01/07 CPT-47039 CMP - LAB USE ONLY 16:31:15 CDT CPT-65821 CBC - LAB USE ONLY 16:31:14 CDT CPT-00066 Venipuncture Draw Fee 16:31:14 CDT CPT-90804 BMP - LAB USE ONLY 14:37:27 CDT CPT-03135 CBC - LAB USE ONLY 14:37:27 CDT CPT-14053 Venipuncture Draw Fee 14:37:27 CDT CPT-TCMM Transitional Care Mgmt-Moderate 14:43:38 CDT CPT-90602 Venipuncture Draw Fee 10:33:47 CDT CPT-59091 BMP - LAB USE ONLY 10:33:46 CDT CPT-Cryo Cryotherapy 15:12:03 CDT CPT-76637 LS spine AP and Lat - XRAY USE ONLY 10:31:51 CDT 07/27 CPT-09531 Punch biopsy 1 lsn 20:40:09 CDT CPT-G0008 Administration of Influenza Virus Vaccine 10:04:48 FOOT PIECE ASSEMBLER CPT-58441 Fluzone High-Dose Intramuscular Suspension 10:04:48 FOOT PIECE ASSEMBLER CPT-33924 Ribs unilat w PA chst min 3V 10:45:40 CDT CPT-LR Lesion Removal 13:14:55 CDT CPT-Cryo Cryotherapy 13:14:55 CDT CPT-67015 Venipuncture Draw Fee 10:25:49 CDT CPT-90190 Administration single or combination vaccine inc oral 13 :22:14 FOOT PIECE ASSEMBLER CPT-26441 Influenza High Dose age 65+ 13:22:14 FOOT PIECE ASSEMBLER
--- OUTSIDE RECORDS SUMMARY | 2016-12-06 09:03 | XMS REPORT | Clinical Summary ---
Author Author Admin, Leon Organization [employer] Address Unknown Phone Unavailable Allergies, Adverse Reactions, [...] 1 tablet by mouth qhs prn ALPRAZOLAM 38223336882 No Longer Active Gareth Cancino MD Active CLOBETASOL PROPIONATE 0.05 % CREA apply to hand rash bid CLOBETASOL PROPIONATE 30190998315 No Longer Active Gareth Cancino MD Active BACTROBAN 2 % CREAM Apply to affected area BID MUPIROCIN CALCIUM 71396214702 No Longer Active Gareth Cancino MD Active LISINOPRIL 20 MG TABS 1 tablet by mouth daily for high blood pressure 10/14 LISINOPRIL 20195664843 Active Gareth Cancino MD Active BACTRIM DS 800-160 MG TAB 1 tab by mouth twice daily TRIMETHOPRIM-SULFAMETHOXAZOLE 80740395100 No Longer Active Gareth Cancino MD Active METOPROLOL SUCCINATE ER 100 MG [id number] 1 pill by mouth daily, for blood pressure METOPROLOL SUCCINATE 81207876153 Active Gareth Cancino MD Active KEFLEX 500 MG CAP 1 po TID x 10 days CEPHALEXIN 67550337753 No Longer Active Blanca Castillo APRN Active WELLBUTRIN SR 150 MG ORAL [id number] take 1 tab po BID BUPROPION HCL 18992773639 Active Gareth Cancino MD Active METOPROLOL SUCCINATE 50 MG TB24 1 tablet by mouth daily METOPROLOL SUCCINATE 60397828726 No Longer Active Gareth Cancino MD Active OMEPRAZOLE 20 MG TBEC Take one by mouth daily OMEPRAZOLE 33654119294 No Longer Active Gareth Cancino MD Active OMEPRAZOLE 40 MG CPDR 1 tab po qday for acid reflux. OMEPRAZOLE 46900861024 Active Mary Shah APRN Active LEVAQUIN 500 MG TAB 1 tablet by mouth daily LEVOFLOXACIN 86737842894 No Longer Active Gareth Cancino MD Active ALEVE 220 MG TAB 2 tab po qd NAPROXEN SODIUM 72641507718 Active Gareth Cancino MD Active ASPIRIN 81 MG CHEW TAB 1 tablet by mouth daily ASPIRIN 77177537558 Active Gareth Cancino MD Active VENTOLIN HFA 108 (90 BASE) MCG/ACT AERS 1-2 puffs four times a day PRN shortness of breath ALBUTEROL SULFATE 92769944760 Active Mary Shah RN DOCUMENT IMPROVEMENT SPECIALIST Active CENTRUM SILVER TABS 1 TAB PO DAILY MULTIPLE VITAMINS-MINERALS 05580095986 Active Gareth Cancino MD Active VITAMIN B12 100 MCG TABS 1 TAB PO DAILY CYANOCOBALAMIN 51439362326 Active Gareth Cancino MD Active CIPRO 500 MG TABS 1 TAB PO BID CIPROFLOXACIN HCL 38764636563 No Longer Active Gareth Cancino MD Active BACTRIM DS 800-160 MG TAB 1 tab by mouth twice daily TRIMETHOPRIM-SULFAMETHOXAZOLE 40411474362 No Longer Active Gareth Cancino MD Active PREDNISONE 20 MG TAB 1 tab po BID for 3 days, then 1 tab po qday for 3 days PREDNISONE 26464537124 No Longer Active Gareth Cancino MD Active FOLIC ACID 800 MCG TABS Take one by mouth daily FOLIC ACID 17217811957 No Longer Active Gareth Cancino MD Active VITAMIN B-6 250 MG TABS Take one by mouth daily PYRIDOXINE HCL 11371019903 No Longer Active Gareth Cancino MD Active B-12 1000 MCG CAPS Take one by mouth daily CYANOCOBALAMIN 29510217254 No Longer Active Gareth Cancino MD Active DOXYCYCLINE HYCLATE 100 MG CAP 1 cap by mouth twice daily DOXYCYCLINE HYCLATE 54840477923 No Longer Active Gareth Cancino MD Active PREDNISONE 20 MG TAB 1 po bid 3 days, then 1 po q day 3 days 2011 PREDNISONE 73720772966 No Longer Active Gareth Cancino MD Active CHANTIX STARTING MONTH RUBEN 0.5 MG X 11 & 1 MG X 42 TABS 0.5mg daily for 3 days , then 0.5mg BID for 4 days, then 1mg BID VARENICLINE TARTRATE 55100953389 No Longer Active Gareth Cancino MD Active SIMVASTATIN 40 MG TABS Take one by mouth daily SIMVASTATIN 10804411979 Active Gareth Cancino MD Active TRIAMTERENE-HCTZ 37.5-25 MG CAPS Take one by mouth daily TRIAMTERENE- HCTZ 69605906083 Active Gareth Cancino MD Active CHANTIX STARTING [...] 3 days 2011 PREDNISONE 20 MG TAB 547600 PREDNISONE Inactive DOXYCYCLINE HYCLATE 100 MG CAP 1 cap by mouth twice daily DOXYCYCLINE HYCLATE 100 MG CAP 0061756 DOXYCYCLINE HYCLATE Inactive B-12 1000 MCG CAPS Take one by mouth daily B-12 1000 MCG CAPS CYANOCOBALAMIN Inactive VITAMIN B-6 250 MG TABS Take one by mouth daily VITAMIN B-6 250 MG TABS PYRIDOXINE HCL Inactive FOLIC ACID 800 MCG TABS Take one by mouth daily FOLIC ACID 800 MCG TABS 343211 FOLIC ACID Inactive CIPRO 500 MG TABS 1 TAB PO BID CIPRO 500 MG TABS 950564 CIPROFLOXACIN HCL Inactive OMEPRAZOLE 20 MG TBEC Take one by mouth daily OMEPRAZOLE 20 MG TBEC 674850 OMEPRAZOLE Inactive METOPROLOL SUCCINATE 50 MG TB24 1 tablet by mouth daily METOPROLOL SUCCINATE 50 MG TB24 METOPROLOL SUCCINATE Inactive BACTROBAN 2 % CREAM Apply to affected area BID BACTROBAN 2 % CREAM 247969 MUPIROCIN CALCIUM Inactive CLOBETASOL PROPIONATE 0.05 % CREA apply to hand rash bid CLOBETASOL PROPIONATE 0.05 % CREA 462674 CLOBETASOL PROPIONATE Inactive ALPRAZOLAM 0.25 MG TAB 1/2 to 1 tablet by mouth qhs prn ALPRAZOLAM 0.25 MG TAB 103123 ALPRAZOLAM Inactive PREDNISONE 20 MG TAB 1 tab po BID for 3 days, then 1 tab po qday for 3 days PREDNISONE 20 MG TAB 015095 PREDNISONE Inactive BACTRIM DS 800-160 MG TAB 1 tab by mouth twice daily BACTRIM DS 800-160 MG TAB 294769 TRIMETHOPRIM-SULFAMETHOXAZOLE Inactive LEVAQUIN 500 MG TAB 1 tablet by mouth daily LEVAQUIN 500 MG TAB 581543 LEVOFLOXACIN Inactive KEFLEX 500 MG CAP 1 po TID x 10 days KEFLEX 500 MG CAP 134668 CEPHALEXIN Inactive BACTRIM DS 800-160 MG TAB 1 tab by mouth twice daily BACTRIM DS 800-160 MG TAB 239794 TRIMETHOPRIM-SULFAMETHOXAZOLE Inactive Vital Signs Date Name Value [...] ... - Chemistry cholesterol, serum 195 mg/dL 304-353 1854/12/02 triglyceride, serum, fasting 74 mg/dL 30-200 HDL cholesterol, serum 52 mg/dL 32-96 LDL cholesterol, serum 128 mg/dL 0-130 sodium, serum 134 mmol/L 430-667 2743/12/02 carbon dioxide, venous blood 30.3 mmol/L 21.0-32.0 [...] 0-19 Encounters Code Encounter Date Provider Facility CPT-75883 Level 3 Est. Patient 23:08:20 CDT Gareth Cancino MD [facility] CPT-72722 Level 4 Est. Patient 20:40:10 CDT Gareth Cancino MD [facility] CPT-33959 Level 4 Est. Patient 19:50:11 CDT Gareth Cancino MD [facility] CPT-72663 Level 3 Est. Patient 11:00:13 CDT Gareth Cancino MD [facility] CPT-49180 Level 4 Est. Patient 11:20:21 CDT Gareth Cancino MD [facility] CPT-49083 Level 4 Est. Patient 09:22:18 CLEANING AND MAINTENANCE WORKER Gareth Cancino MD [facility] CPT-43509 Level 3 Est. Patient 09:48:04 CDT Gareth Cancino MD [facility] CPT-25687 Level 3 Est. Patient 10:13:16 CDT Gareth Cancino MD [facility] CPT-43369 Level 2 Est. Patient 18:36:56 CDT Gareth Cancino MD [facility] CPT-52208 Level 4 Est. Patient 13:50:53 CDT Gareth Cancino MD [facility] CPT-83155 Level 3 Est. Patient 14:58:33 CLEANING AND MAINTENANCE WORKER Gareth Cancino MD [facility] CPT-00384 Level 4 Est. Patient 09:25:57 CDT Gareth Cancino MD [facility] CPT-63334 Level 3 Est. Patient 20:39:33 CDT Noman Edwards DO [facility] CPT-22757 Level 2 Est. Patient 13:17:39 CDT Gareth Cancino MD [facility] CPT-39973 Level 3 Est. Patient 13:37:20 CDT Gareth Cancino MD [facility] CPT-90897 Level 3 Est. Patient 18:09:08 CDT Gareth Cancino MD [facility] CPT-68162 Level 4 Est. Patient 09:59:07 CDT Gareth Cancino MD [facility] Procedures Code Procedure Name Date Entry Date Standard Description CPT-45505 LS spine AP and Lat - XRAY USE ONLY 10:31:51 CDT 07/27 CPT-21879 Punch biopsy 1 lsn 20:40:09 CDT CPT-G0008 Administration of Influenza Virus Vaccine 10:04:48 CLEANING AND MAINTENANCE WORKER CPT-60433 Fluzone High-Dose Intramuscular Suspension 10:04:48 CLEANING AND MAINTENANCE WORKER CPT-37776 Ribs unilat w PA chst min 3V 10:45:40 CDT CPT-LR Lesion Removal 13:14:55 CDT CPT-Cryo Cryotherapy 13:14:55 CDT CPT-53387 Venipuncture Draw Fee 10:25:49 CDT CPT-95362 Administration single or combination vaccine inc oral 13 :22:14 CLEANING AND MAINTENANCE WORKER CPT-60536 Influenza High Dose age 65+ 13:22:14 CLEANING AND MAINTENANCE WORKER
--- OUTSIDE RECORDS SUMMARY | 2016-12-06 09:04 | XMS REPORT | Clinical Summary ---
Author Author Admin, HILARIA Organization [facility] Address Unknown Phone Unavailable Allergies, Adverse Reactions, [...] Dysuria Preventive health care V70.0 Active Gareth Canicno MD Routine general medical examination at a [...] 1/2 tab daily for 4 days PREDNISONE [id number] No Longer Active Mary Shah APRN Active LEVAQUIN 500 MG TAB 1 tablet by mouth daily for 7 days LEVOFLOXACIN 63291299287 Active Mary Shah APRN Active AZITHROMYCIN 250 MG TABS 2 po qd x 1 day, then 1 po qd x 4 days AZITHROMYCIN 41143607190 No Longer Active Danuta Modi Active AZITHROMYCIN 250 MG TABS 2 po qd x 1 day, then 1 po qd x 4 days AZITHROMYCIN 66650704179 No Longer Active Tangela Forte Active HYDROCODONE-ACETAMINOPHEN 5-325 MG TABS 1 tab by mouth every 6 hours as needed for bck pain HYDROCODONE-ACETAMINOPHEN 82220732445 No Longer Active Gareth Cancino MD Active FENTANYL 12 MCG/HR PT72 Apply to clean, dry skin and change every 72 hours FENTANYL 82150206780 Active Gareth Cancino MD Active ALPRAZOLAM 0.25 MG TAB 1 tablet by mouth q hs prn ALPRAZOLAM 71302257891 Active Gareth Cancino MD Active AZITHROMYCIN 250 MG ORAL TABS 1 tab daily AZITHROMYCIN 12048536873 No Longer Active Gareth Cancino MD Active ZITHROMAX 250 MG TAB 2 po today, then 1 po q days 2-5 AZITHROMYCIN 42404668257 No Longer Active Tangela Forte Active IPRATROPIUM-ALBUTEROL 0.5-2.5 (3) MG/3ML INH SOLN nebulize 1 vial every 6hrs prn shortness of breath IPRATROPIUM-ALBUTEROL 35942978875 Active Gareth Cancino MD Active FENTANYL 25 MCG/HR PT72 Apply to clean, dry skin and change every 72 hours FENTANYL 25912037313 No Longer Active Gareth Cancino MD Active WELLBUTRIN SR 150 MG ORAL [id number] take 1 tab po BID BUPROPION HCL 55241602603 No Longer Active Gareth Cancino MD Active ZOFRAN 4 MG ORAL TABS 1 by mouth every 6 hours prn nausea ONDANSETRON HCL 97753361362 Active Tangela Forte Active TRAMADOL HCL 50 MG TABS 1 po tid PRN TRAMADOL HCL 44796792442 Active Gareth Cancino MD Active ALPRAZOLAM 0.25 MG TAB 1/2 to 1 tablet by mouth qhs prn ALPRAZOLAM 22991807143 No Longer Active Gareth Cancino MD Active CLOBETASOL PROPIONATE 0.05 % CREA apply to hand rash bid CLOBETASOL PROPIONATE 51199582072 No Longer Active Gareth Cancino MD Active BACTROBAN 2 % CREAM Apply to affected area BID MUPIROCIN CALCIUM 92106124466 No Longer Active Gareth Cancino MD Active LISINOPRIL 20 MG TABS 1 tablet by mouth daily for high blood pressure 10/14 LISINOPRIL 22023443012 Active Mary Shah APRN Active BACTRIM DS 800-160 MG TAB 1 tab by mouth twice daily TRIMETHOPRIM-SULFAMETHOXAZOLE 37285332542 No Longer Active Gareth Cancino MD Active METOPROLOL SUCCINATE ER 100 MG [id number] 1 pill by mouth daily, for blood pressure METOPROLOL SUCCINATE 28487835847 Active Mary Shah APRN Active KEFLEX 500 MG CAP 1 po TID x 10 days CEPHALEXIN 46274979027 No Longer Active Blanca Castillo APRN Active METOPROLOL SUCCINATE 50 MG TB24 1 tablet by mouth daily METOPROLOL SUCCINATE 60679367312 No Longer Active Gareth Cancino MD Active OMEPRAZOLE 20 MG TBEC Take one by mouth daily OMEPRAZOLE 36884384354 No Longer Active Gareth Cancino MD Active OMEPRAZOLE 40 MG CPDR 1 tab po qday for acid reflux. OMEPRAZOLE 38490134987 Active Mary Shah APRN Active LEVAQUIN 500 MG TAB 1 tablet by mouth daily LEVOFLOXACIN 79452452454 No Longer Active Gareth Cancino MD Active ALEVE 220 MG TAB 2 tab po qd NAPROXEN SODIUM 57944181590 Active Gareth Cancino MD Active ASPIRIN 81 MG CHEW TAB 1 tablet by mouth daily ASPIRIN 76184019051 Active Gareth Cancino MD Active VENTOLIN HFA 108 (90 BASE) MCG/ACT AERS 1-2 puffs four times a day PRN shortness of breath ALBUTEROL SULFATE 35446259614 Active Mary Shah BI DATA ARCHITECT Active CENTRUM SILVER TABS 1 TAB PO DAILY MULTIPLE VITAMINS-MINERALS 79991081254 Active Gareth Cancino MD Active VITAMIN B12 100 MCG TABS 1 TAB PO DAILY CYANOCOBALAMIN 54878194314 Active Gareth Cancino MD Active CIPRO 500 MG TABS 1 TAB PO BID CIPROFLOXACIN HCL 87225647908 No Longer Active Gareth Cancino MD Active BACTRIM DS 800-160 MG TAB 1 tab by mouth twice daily TRIMETHOPRIM-SULFAMETHOXAZOLE 51378162814 No Longer Active Gareth Cancino MD Active PREDNISONE 20 MG TAB 1 tab po BID for 3 days, then 1 tab po qday for 3 days PREDNISONE 38426857377 No Longer Active Gareth Cancino MD Active FOLIC ACID 800 MCG TABS Take one by mouth daily FOLIC ACID 24268555436 No Longer Active Gareth Cancino MD Active VITAMIN B-6 250 MG TABS Take one by mouth daily PYRIDOXINE HCL 36297706311 No Longer Active Gareth Cancino MD Active B-12 1000 MCG CAPS Take one by mouth daily CYANOCOBALAMIN 33359884003 No Longer Active Gareth Cancino MD Active DOXYCYCLINE HYCLATE 100 MG CAP 1 cap by mouth twice daily DOXYCYCLINE HYCLATE 05151389241 No Longer Active Gareth Cancino MD Active PREDNISONE 20 MG TAB 1 po bid 3 days, then 1 po q day 3 days 2011 PREDNISONE 79914000131 No Longer Active Gareth Cancino MD Active CHANTIX STARTING MONTH RUBEN 0.5 MG X 11 & 1 MG X 42 TABS 0.5mg daily for 3 days , then 0.5mg BID for 4 days, then 1mg BID VARENICLINE TARTRATE 53535240327 No Longer Active Gareth Cancino MD Active SIMVASTATIN 40 MG TABS Take one by mouth daily SIMVASTATIN 69935286934 Active Gareth Cancino MD Active TRIAMTERENE-HCTZ 37.5-25 MG CAPS Take one by mouth daily TRIAMTERENE- HCTZ 77121741005 Active Gareth Cancino MD Active CHANTIX STARTING [...] 3 days 2011 PREDNISONE 20 MG TAB 752137 PREDNISONE Inactive DOXYCYCLINE HYCLATE 100 MG CAP 1 cap by mouth twice daily DOXYCYCLINE HYCLATE 100 MG CAP 2287043 DOXYCYCLINE HYCLATE Inactive B-12 1000 MCG CAPS Take one by mouth daily B-12 1000 MCG CAPS CYANOCOBALAMIN Inactive VITAMIN B-6 250 MG TABS Take one by mouth daily VITAMIN B-6 250 MG TABS PYRIDOXINE HCL Inactive FOLIC ACID 800 MCG TABS Take one by mouth daily FOLIC ACID 800 MCG TABS 776456 FOLIC ACID Inactive CIPRO 500 MG TABS 1 TAB PO BID CIPRO 500 MG TABS 228023 CIPROFLOXACIN HCL Inactive OMEPRAZOLE 20 MG TBEC Take one by mouth daily OMEPRAZOLE 20 MG TBEC 818495 OMEPRAZOLE Inactive METOPROLOL SUCCINATE 50 MG TB24 1 tablet by mouth daily METOPROLOL SUCCINATE 50 MG TB24 METOPROLOL SUCCINATE Inactive BACTROBAN 2 % CREAM Apply to affected area BID BACTROBAN 2 % CREAM 707227 MUPIROCIN CALCIUM Inactive CLOBETASOL PROPIONATE 0.05 % CREA apply to hand rash bid CLOBETASOL PROPIONATE 0.05 % CREA 363895 CLOBETASOL PROPIONATE Inactive ALPRAZOLAM 0.25 MG TAB 1/2 to 1 tablet by mouth qhs prn ALPRAZOLAM 0.25 MG TAB 624957 ALPRAZOLAM Inactive WELLBUTRIN SR 150 MG ORAL [id number] take 1 tab po BID WELLBUTRIN SR 150 MG ORAL [id number] BUPROPION HCL Inactive AZITHROMYCIN 250 MG ORAL TABS 1 tab daily AZITHROMYCIN 250 MG ORAL TABS 5739823 AZITHROMYCIN Inactive HYDROCODONE-ACETAMINOPHEN 5-325 MG TABS 1 tab by mouth every 6 hours as needed for bck pain HYDROCODONE-ACETAMINOPHEN 5-325 MG TABS 105842 HYDROCODONE-ACETAMINOPHEN Inactive PREDNISONE 20 MG TAB 1 tab po BID for 3 days, then 1 tab po qday for 3 days PREDNISONE 20 MG TAB 165438 PREDNISONE Inactive BACTRIM DS 800-160 MG TAB 1 tab by mouth twice daily BACTRIM DS 800-160 MG TAB 348097 TRIMETHOPRIM-SULFAMETHOXAZOLE Inactive LEVAQUIN 500 MG TAB 1 tablet by mouth daily LEVAQUIN 500 MG TAB 464181 LEVOFLOXACIN Inactive KEFLEX 500 MG CAP 1 po TID x 10 days KEFLEX 500 MG CAP 370652 CEPHALEXIN Inactive BACTRIM DS 800-160 MG TAB 1 tab by mouth twice daily BACTRIM DS 800-160 MG TAB 19820425 TRIMETHOPRIM-SULFAMETHOXAZOLE Inactive FENTANYL 25 MCG/HR PT72 Apply to clean, dry skin and change every 72 hours FENTANYL 25 MCG/HR PT72 624143 FENTANYL Inactive ZITHROMAX 250 MG TAB 2 po today, then 1 po q days 2-5 ZITHROMAX 250 MG TAB 2612793 AZITHROMYCIN Inactive AZITHROMYCIN 250 MG TABS 2 po qd x 1 day, then 1 po qd x 4 days AZITHROMYCIN 250 MG TABS 8755226 AZITHROMYCIN Inactive AZITHROMYCIN 250 MG TABS 2 po qd x 1 day, then 1 po qd x 4 days AZITHROMYCIN 250 MG TABS 8700716 AZITHROMYCIN Inactive PREDNISONE 20 MG TAB take 3 tabs daily for 3 days, 2 tabs daily for 3 days, 1 tab daily for 3 days, 1/2 tab daily for 4 days PREDNISONE 20 MG TAB 545090 PREDNISONE Inactive Vital Signs Date Name Value [...] Panel - Chemistry sodium, serum 133 mmol/L 676-137 9870/08/24 potassium, serum 4.4 mmol/L 3.5-5.2 chloride, serum 95 mmol/L 98-107 carbon dioxide, venous blood 33.0 mmol/L 21.0-32.0 blood glucose 107 mg/dL 65-110 calcium, serum 8.8 mg/dL 8.5-10.1 urea nitrogen, blood 12 mg/dL 7-18 creatinine, serum 0.69 mg/dL 0.55-1.30 Lab Report: CBC, Basic Metabolic Panel - Chemistry sodium, serum 132 mmol/L 384-978 3207/10/12 potassium, serum 4.7 mmol/L 3.5-5.2 chloride, serum [...] CBC - Chemistry sodium, serum 136 mmol/L 472-185 8259/11/01 carbon dioxide, venous blood 32.1 mmol/L 21.0-32.0 [...] Negative Encounters Code Encounter Date Provider Facility CPT-22868 Level 3 Est. Patient 09:05:25 AMBULATORY CARE Mary Shah APRN [facility] CPT-12568 Level 3 Est. Patient 20:53:25 AMBULATORY CARE Gareth Cancino MD [facility] CPT-43543 Level 3 Est. Patient 10:34:55 CDT Gareth Cancino MD [facility] CPT-49595 Level 4 Est. Patient 09:00:18 CDT Gareth Cancino MD [facility] CPT-48539 Level 3 Est. Patient 15:12:03 CDT Gareth Cancino MD [facility] CPT-99099 Level 3 Est. Patient 23:08:20 CDT Gareth Cancino MD [facility] CPT-13165 Level 4 Est. Patient 20:40:10 CDT Gareth Cancino MD [facility] CPT-10239 Level 4 Est. Patient 19:50:11 CDT Gareth Cancino MD [facility] CPT-48115 Level 3 Est. Patient 11:00:13 CDT Gareth Cancino MD [facility] CPT-62969 Level 4 Est. Patient 11:20:21 CDT Gareth Cancino MD [facility]-49177 Level 4 Est. Patient 09:22:18 AMBULATORY CARE Gareth Cancino MD [facility] CPT-41606 Level 3 Est. Patient 09:48:04 CDT Gareth Cancino MD [facility] CPT-14458 Level 3 Est. Patient 10:13:16 CDT Gareth Cancino MD [facility] CPT-97414 Level 2 Est. Patient 18:36:56 CDT Gareth Cancino MD [facility] CPT-97861 Level 4 Est. Patient 13:50:53 CDT Gareth Cancino MD [facility] CPT-33272 Level 3 Est. Patient 14:58:33 AMBULATORY CARE Gareth Cancino MD [facility] CPT-28361 Level 4 Est. Patient 09:25:57 CDT Gareth Cancino MD [facility] CPT-19622 Level 3 Est. Patient 20:39:33 CDT Noman Edwards DO [facility] CPT-93405 Level 2 Est. Patient 13:17:39 CDT Gareth Cancino MD [facility] CPT-86816 Level 3 Est. Patient 13:37:20 CDT Gareth Cancino MD [facility] CPT-94550 Level 3 Est. Patient 18:09:08 CDT Gareth Cancino MD [facility] CPT-05514 Level 4 Est. Patient 09:59:07 CDT Gareth Cancino MD [facility] Procedures Code Procedure Name Date Entry Date Standard Description CPT-000 Give Appropriate Flu Vaccine 09:29:52 AMBULATORY CARE CPT-000 Give Appropriate Flu Vaccine 09:22:20 AMBULATORY CARE CPT-25569 TSH - LAB USE ONLY 08:11:40 AMBULATORY CARE CPT-21883 Free T4 - LAB USE ONLY 08:11:40 AMBULATORY CARE CPT-90159 Venipuncture Draw Fee 08:11:40 AMBULATORY CARE CPT-08530 UA w micro - LAB USE ONLY 14:26:22 AMBULATORY CARE CPT-G0438 Initial Annual Wellness Exam 20:53:25 AMBULATORY CARE CPT-G0009 Administration of Pneumococcal Vaccine 11:42:53 AMBULATORY CARE CPT-34877 Prevnar 13 Intramuscular Suspension 11:42:53 AMBULATORY CARE 01/07 CPT-80697 First Vx - Ix admin for Medicare patients 11:39:44 AMBULATORY CARE CPT-13256 Fluzone High-Dose Intramuscular Suspension 11:39:44 AMBULATORY CARE CPT-31806 Prevnar 13 Intramuscular Suspension 09:29:52 AMBULATORY CARE 01/07 CPT-34460 CMP - LAB USE ONLY 16:31:15 CDT CPT-75040 CBC - LAB USE ONLY 16:31:14 CDT CPT-70076 Venipuncture Draw Fee 16:31:14 CDT CPT-05011 BMP - LAB USE ONLY 14:37:27 CDT CPT-66773 CBC - LAB USE ONLY 14:37:27 CDT CPT-92374 Venipuncture Draw Fee 14:37:27 CDT CPT-TCMM Transitional Care Mgmt-Moderate 14:43:38 CDT CPT-33618 Venipuncture Draw Fee 10:33:47 CDT CPT-58000 BMP - LAB USE ONLY 10:33:46 CDT CPT-Cryo Cryotherapy 15:12:03 CDT CPT-76903 LS spine AP and Lat - XRAY USE ONLY 10:31:51 CDT 07/27 CPT-12147 Punch biopsy 1 lsn 20:40:09 CDT CPT-G0008 Administration of Influenza Virus Vaccine 10:04:48 AMBULATORY CARE CPT-01487 Fluzone High-Dose Intramuscular Suspension 10:04:48 AMBULATORY CARE CPT-33316 Ribs unilat w PA chst min 3V 10:45:40 CDT CPT-LR Lesion Removal 13:14:55 CDT CPT-Cryo Cryotherapy 13:14:55 CDT CPT-84873 Venipuncture Draw Fee 10:25:49 CDT CPT-14985 Administration single or combination vaccine inc oral 13 :22:14 AMBULATORY CARE CPT-11285 Influenza High Dose age 65+ 13:22:14 AMBULATORY CARE
--- OUTSIDE RECORDS SUMMARY | 2016-12-06 09:05 | XMS REPORT | Clinical Summary ---
Author Author Admin, HILARIA Organization [employer] Address Unknown Phone Unavailable Allergies, Adverse Reactions, [...] po daily as needed for arthritis/pain PIROXICAM 50388762180 Active Gareth Cancino MD Active ZITHROMAX Z-RUBEN 250 MG TABS 2 today, then 1 daily for 4 days 2016 AZITHROMYCIN 12650881010 No Longer Active Tangelashar Forte Active FENTANYL 25 MCG/HR TRANS PT72 1 patch every 72 hours FENTANYL 46721164790 Active Mary Shah APRN Active PREDNISONE 20 MG TAB take 3 tabs daily for 3 days, 2 tabs daily for 3 days, 1 tab daily for 3 days, 1/2 tab daily for 4 days PREDNISONE 71396063587 No Longer Active Mary Shah APRN Active LEVAQUIN 500 MG TAB 1 tablet by mouth daily for 7 days LEVOFLOXACIN 64656737331 Active Marylennox Shah APRN Active AZITHROMYCIN 250 MG TABS 2 po qd x 1 day, then 1 po qd x 4 days AZITHROMYCIN 23195854464 No Longer Active Danuta Rian Active AZITHROMYCIN 250 MG TABS 2 po qd x 1 day, then 1 po qd x 4 days AZITHROMYCIN 72236490937 No Longer Active Tangela Forte Active HYDROCODONE-ACETAMINOPHEN 5-325 MG TABS 1 tab by mouth every 6 hours as needed for bck pain HYDROCODONE-ACETAMINOPHEN 88265451414 No Longer Active Gareth Cancino MD Active ALPRAZOLAM 0.25 MG TAB 1 tablet by mouth q hs prn ALPRAZOLAM 07507040466 Active Gareth Cancino MD Active AZITHROMYCIN 250 MG ORAL TABS 1 tab daily AZITHROMYCIN 34410981940 No Longer Active Gareth Cancino MD Active ZITHROMAX 250 MG TAB 2 po today, then 1 po q days 2-5 AZITHROMYCIN 83477681190 No Longer Active Tangela Raida Active IPRATROPIUM-ALBUTEROL 0.5-2.5 (3) MG/3ML INH SOLN nebulize 1 vial every 6hrs prn shortness of breath IPRATROPIUM-ALBUTEROL 53986981094 Active Gareth Cancino MD Active FENTANYL 25 MCG/HR PT72 Apply to clean, dry skin and change every 72 hours FENTANYL 62607103084 No Longer Active Gareth Cancino MD Active WELLBUTRIN SR 150 MG ORAL [id number] take 1 tab po BID BUPROPION HCL 52587601939 No Longer Active Gareth Cancino MD Active ZOFRAN 4 MG ORAL TABS 1 by mouth every 6 hours prn nausea ONDANSETRON HCL 05814748257 Active Tangela Forte Active TRAMADOL HCL 50 MG TABS 1 po tid PRN TRAMADOL HCL 44760823975 Active Gareth Cancino MD Active ALPRAZOLAM 0.25 MG TAB 1/2 to 1 tablet by mouth qhs prn ALPRAZOLAM 64674673226 No Longer Active Gareth Cancino MD Active CLOBETASOL PROPIONATE 0.05 % CREA apply to hand rash bid CLOBETASOL PROPIONATE 97691357079 No Longer Active Gareth Cancino MD Active BACTROBAN 2 % CREAM Apply to affected area BID MUPIROCIN CALCIUM 64361484193 No Longer Active Gareth Cancino MD Active LISINOPRIL 20 MG TABS 1 tablet by mouth daily for high blood pressure 10/14 LISINOPRIL 77895008566 Active Gareth Cancino MD Active BACTRIM DS 800-160 MG TAB 1 tab by mouth twice daily TRIMETHOPRIM-SULFAMETHOXAZOLE 96238169646 No Longer Active Gareth Cancino MD Active METOPROLOL SUCCINATE ER 100 MG [id number] 1 pill by mouth daily, for blood pressure METOPROLOL SUCCINATE 94419461673 Active Gareth Cancino MD Active KEFLEX 500 MG CAP 1 po TID x 10 days CEPHALEXIN 24953921102 No Longer Active Blanca Castillo APRN Active METOPROLOL SUCCINATE 50 MG TB24 1 tablet by mouth daily METOPROLOL SUCCINATE 54384828789 No Longer Active Gareth Cancino MD Active OMEPRAZOLE 20 MG TBEC Take one by mouth daily OMEPRAZOLE 10108363427 No Longer Active Gareth Cancino MD Active OMEPRAZOLE 40 MG CPDR 1 tab po qday for acid reflux. OMEPRAZOLE 12649469908 Active Mary Shah APRN Active LEVAQUIN 500 MG TAB 1 tablet by mouth daily LEVOFLOXACIN 52964332171 No Longer Active Gareth Cancino MD Active ALEVE 220 MG TAB 2 tab po qd NAPROXEN SODIUM 50693962738 Active Gareth Cancino MD Active ASPIRIN 81 MG CHEW TAB 1 tablet by mouth daily ASPIRIN 24668526215 Active Gareth Cancino MD Active VENTOLIN HFA 108 (90 BASE) MCG/ACT AERS 1-2 puffs four times a day PRN shortness of breath ALBUTEROL SULFATE 14255028571 Active Mary Shah APRN Active CENTRUM SILVER TABS 1 TAB PO DAILY MULTIPLE VITAMINS-MINERALS 37295002212 Active Gareth Cancino MD Active VITAMIN B12 100 MCG TABS 1 TAB PO DAILY CYANOCOBALAMIN 88478310291 Active Gareth Cancino MD Active CIPRO 500 MG TABS 1 TAB PO BID CIPROFLOXACIN HCL 94865601236 No Longer Active Gareth Cancino MD Active BACTRIM DS 800-160 MG TAB 1 tab by mouth twice daily TRIMETHOPRIM-SULFAMETHOXAZOLE 33093475370 No Longer Active Gareth Cancino MD Active PREDNISONE 20 MG TAB 1 tab po BID for 3 days, then 1 tab po qday for 3 days PREDNISONE 18138322744 No Longer Active Gareth Cancino MD Active FOLIC ACID 800 MCG TABS Take one by mouth daily FOLIC ACID 68646782900 No Longer Active Gareth Cancino MD Active VITAMIN B-6 250 MG TABS Take one by mouth daily PYRIDOXINE HCL 05744555846 No Longer Active Gareth Cancino MD Active B-12 1000 MCG CAPS Take one by mouth daily CYANOCOBALAMIN 71897344184 No Longer Active Gareth Cancino MD Active DOXYCYCLINE HYCLATE 100 MG CAP 1 cap by mouth twice daily DOXYCYCLINE HYCLATE 96271749077 No Longer Active Gareth Cancino MD Active PREDNISONE 20 MG TAB 1 po bid 3 days, then 1 po q day 3 days 2011 PREDNISONE 89306423433 No Longer Active Gareth Cancino MD Active CHANTIX STARTING MONTH RUBEN 0.5 MG X 11 & 1 MG X 42 TABS 0.5mg daily for 3 days , then 0.5mg BID for 4 days, then 1mg BID VARENICLINE TARTRATE 03716883925 No Longer Active Gareth Cancino MD Active SIMVASTATIN 40 MG TABS Take one by mouth daily SIMVASTATIN 96191948314 Active Gareth Cancino MD Active TRIAMTERENE-HCTZ 37.5-25 MG CAPS Take one by mouth daily TRIAMTERENE- HCTZ 65464847646 Active Gareth Cancino MD Active CHANTIX STARTING [...] 3 days 2011 PREDNISONE 20 MG TAB 258620 PREDNISONE Inactive DOXYCYCLINE HYCLATE 100 MG CAP 1 cap by mouth twice daily DOXYCYCLINE HYCLATE 100 MG CAP 0964373 DOXYCYCLINE HYCLATE Inactive B-12 1000 MCG CAPS Take one by mouth daily B-12 1000 MCG CAPS CYANOCOBALAMIN Inactive VITAMIN B-6 250 MG TABS Take one by mouth daily VITAMIN B-6 250 MG TABS PYRIDOXINE HCL Inactive FOLIC ACID 800 MCG TABS Take one by mouth daily FOLIC ACID 800 MCG TABS 650699 FOLIC ACID Inactive CIPRO 500 MG TABS 1 TAB PO BID CIPRO 500 MG TABS 625243 CIPROFLOXACIN HCL Inactive OMEPRAZOLE 20 MG TBEC Take one by mouth daily OMEPRAZOLE 20 MG TBEC 160672 OMEPRAZOLE Inactive METOPROLOL SUCCINATE 50 MG TB24 1 tablet by mouth daily METOPROLOL SUCCINATE 50 MG TB24 METOPROLOL SUCCINATE Inactive BACTROBAN 2 % CREAM Apply to affected area BID BACTROBAN 2 % CREAM 309985 MUPIROCIN CALCIUM Inactive CLOBETASOL PROPIONATE 0.05 % CREA apply to hand rash bid CLOBETASOL PROPIONATE 0.05 % CREA 009235 CLOBETASOL PROPIONATE Inactive ALPRAZOLAM 0.25 MG TAB 1/2 to 1 tablet by mouth qhs prn ALPRAZOLAM 0.25 MG TAB 444838 ALPRAZOLAM Inactive WELLBUTRIN SR 150 MG ORAL [id number] take 1 tab po BID WELLBUTRIN SR 150 MG ORAL [id number] BUPROPION HCL Inactive AZITHROMYCIN 250 MG ORAL TABS 1 tab daily AZITHROMYCIN 250 MG ORAL TABS 5492442 AZITHROMYCIN Inactive HYDROCODONE-ACETAMINOPHEN 5-325 MG TABS 1 tab by mouth every 6 hours as needed for bck pain HYDROCODONE-ACETAMINOPHEN 5-325 MG TABS 537639 HYDROCODONE-ACETAMINOPHEN Inactive PREDNISONE 20 MG TAB 1 tab po BID for 3 days, then 1 tab po qday for 3 days PREDNISONE 20 MG TAB 312895 PREDNISONE Inactive BACTRIM DS 800-160 MG TAB 1 tab by mouth twice daily BACTRIM DS 800-160 MG TAB 942802 TRIMETHOPRIM-SULFAMETHOXAZOLE Inactive LEVAQUIN 500 MG TAB 1 tablet by mouth daily LEVAQUIN 500 MG TAB 211926 LEVOFLOXACIN Inactive KEFLEX 500 MG CAP 1 po TID x 10 days KEFLEX 500 MG CAP 146231 CEPHALEXIN Inactive BACTRIM DS 800-160 MG TAB 1 tab by mouth twice daily BACTRIM DS 800-160 MG TAB 19820425 TRIMETHOPRIM-SULFAMETHOXAZOLE Inactive FENTANYL 25 MCG/HR PT72 Apply to clean, dry skin and change every 72 hours FENTANYL 25 MCG/HR PT72 912929 FENTANYL Inactive ZITHROMAX 250 MG TAB 2 po today, then 1 po q days 2-5 ZITHROMAX 250 MG TAB 0783375 AZITHROMYCIN Inactive AZITHROMYCIN 250 MG TABS 2 po qd x 1 day, then 1 po qd x 4 days AZITHROMYCIN 250 MG TABS 9317764 AZITHROMYCIN Inactive AZITHROMYCIN 250 MG TABS 2 po qd x 1 day, then 1 po qd x 4 days AZITHROMYCIN 250 MG TABS 4511753 AZITHROMYCIN Inactive PREDNISONE 20 MG TAB take 3 tabs daily for 3 days, 2 tabs daily for 3 days, 1 tab daily for 3 days, 1/2 tab daily for 4 days PREDNISONE 20 MG TAB 314182 PREDNISONE Inactive ZITHROMAX Z-RUBEN 250 MG TABS 2 today, then 1 daily for 4 days 2016 ZITHROMAX Z-RUBEN 250 MG TABS 1804160 AZITHROMYCIN Inactive Vital Signs Date Name Value [...] Panel - Chemistry sodium, serum 133 mmol/L 204-529 0590/08/24 potassium, serum 4.4 mmol/L 3.5-5.2 chloride, serum 95 mmol/L 98-107 carbon dioxide, venous blood 33.0 mmol/L 21.0-32.0 blood glucose 107 mg/dL 65-110 calcium, serum 8.8 mg/dL 8.5-10.1 urea nitrogen, blood 12 mg/dL 7-18 creatinine, serum 0.69 mg/dL 0.55-1.30 Lab Report: CBC, Basic Metabolic Panel - Chemistry sodium, serum 132 mmol/L 122-588 7370/10/12 potassium, serum 4.7 mmol/L 3.5-5.2 chloride, serum [...] CBC - Chemistry sodium, serum 136 mmol/L 164-976 3642/11/01 carbon dioxide, venous blood 32.1 mmol/L 21.0-32.0 [...] PANEL - Chemistry cholesterol, serum 169 mg/dL 920-811 4252/05/09 HDL cholesterol, serum 54 mg/dL > OR=46 [...] Negative Encounters Code Encounter Date Provider Facility CPT-51253 Level 3 Est. Patient 09:05:25 [employer] Mary Shah APRN [facility] CPT-85120 Level 3 Est. Patient 20:53:25 [employer] Gareth Cancino MD [facility] CPT-96488 Level 3 Est. Patient 10:34:55 CDT Gareth Cancino MD [facility] CPT-64400 Level 4 Est. Patient 09:00:18 CDT Gareth Cancino MD [facility] CPT-88942 Level 3 Est. Patient 15:12:03 CDT Gareth Cancino MD [facility] CPT-78107 Level 3 Est. Patient 23:08:20 CDT Gareth Cancino MD [facility] CPT-85271 Level 4 Est. Patient 20:40:10 CDT Gareth Cancino MD [facility] CPT-91092 Level 4 Est. Patient 19:50:11 CDT Gareth Cancino MD [facility] CPT-66609 Level 3 Est. Patient 11:00:13 CDT Gareth Cancino MD [facility] CPT-43991 Level 4 Est. Patient 11:20:21 CDT Gareth Cancino MD [facility] CPT-25692 Level 4 Est. Patient 09:22:18 [employer] Gareth Cancino MD [facility] CPT-84388 Level 3 Est. Patient 09:48:04 CDT Gareth Cancino MD [facility] CPT-01436 Level 3 Est. Patient 10:13:16 CDT Gareth Cancino MD [facility] CPT-62462 Level 2 Est. Patient 18:36:56 CDT Gareth Cancino MD [facility] CPT-39644 Level 4 Est. Patient 13:50:53 CDT Gareth Cancino MD [facility] CPT-27133 Level 3 Est. Patient 14:58:33 [employer] Gareth Cancino MD [facility] CPT-80118 Level 4 Est. Patient 09:25:57 CDT Gareth Cancino MD [facility] CPT-25204 Level 3 Est. Patient 20:39:33 CDT Noman Edwards DO [facility] CPT-67148 Level 2 Est. Patient 13:17:39 CDT Gareth Cancino MD [facility] CPT-90038 Level 3 Est. Patient 13:37:20 CDT Gareth Cancino MD [facility] CPT-66749 Level 3 Est. Patient 18:09:08 CDT Gareth Cancino MD [facility] CPT-41382 Level 4 Est. Patient 09:59:07 CDT Gareth Cancino MD [facility] Procedures Code Procedure Name Date Entry Date Standard Description CPT-000 Give Appropriate Flu Vaccine 09:29:52 [employer] CPT-000 Give Appropriate Flu Vaccine 09:22:20 [employer] CPT-08382 TSH - LAB USE ONLY 08:11:40 [employer] CPT-24112 Free T4 - LAB USE ONLY 08:11:40 [employer] CPT-65667 Venipuncture Draw Fee 08:11:40 [employer] CPT-28639 UA w micro - LAB USE ONLY 14:26:22 [employer] CPT-G0438 Initial Annual Wellness Exam 20:53:25 [employer] CPT-G0009 Administration of Pneumococcal Vaccine 11:42:53 [employer] CPT-21194 Prevnar 13 Intramuscular Suspension 11:42:53 [employer] 01/07 CPT-55017 First Vx - Ix admin for Medicare patients 11:39:44 [employer] CPT-74604 Fluzone High-Dose Intramuscular Suspension 11:39:44 [employer] CPT-88544 Prevnar 13 Intramuscular Suspension 09:29:52 [employer] 01/07 CPT-33826 CMP - LAB USE ONLY 16:31:15 CDT CPT-31375 CBC - LAB USE ONLY 16:31:14 CDT CPT-53504 Venipuncture Draw Fee 16:31:14 CDT CPT-00935 BMP - LAB USE ONLY 14:37:27 CDT CPT-79508 CBC - LAB USE ONLY 14:37:27 CDT CPT-81914 Venipuncture Draw Fee 14:37:27 CDT CPT-TCMM Transitional Care Mgmt-Moderate 14:43:38 CDT CPT-85441 Venipuncture Draw Fee 10:33:47 CDT CPT-00079 BMP - LAB USE ONLY 10:33:46 CDT CPT-Cryo Cryotherapy 15:12:03 CDT CPT-50471 LS spine AP and Lat - XRAY USE ONLY 10:31:51 CDT 07/27 CPT-76904 Punch biopsy 1 lsn 20:40:09 CDT CPT-G0008 Administration of Influenza Virus Vaccine 10:04:48 [employer] CPT-69061 Fluzone High-Dose Intramuscular Suspension 10:04:48 [employer] CPT-54945 Ribs unilat w PA chst min 3V 10:45:40 CDT CPT-LR Lesion Removal 13:14:55 CDT CPT-Cryo Cryotherapy 13:14:55 CDT CPT-25951 Venipuncture Draw Fee 10:25:49 CDT CPT-03086 Administration single or combination vaccine inc oral 13 :22:14 [employer] CPT-03703 Influenza High Dose age 65+ 13:22:14 [employer]
--- OUTSIDE RECORDS SUMMARY | 2016-12-06 09:06 | XMS REPORT | Clinical Summary ---
Author Author Admin, Leon Organization [employer] Address Unknown Phone Unavailable Allergies, Adverse Reactions, [...] 1 tablet by mouth qhs prn ALPRAZOLAM 08348841287 No Longer Active Gareth Cancino MD Active CLOBETASOL PROPIONATE 0.05 % CREA apply to hand rash bid CLOBETASOL PROPIONATE 05140392325 No Longer Active Gareth Cancino MD Active BACTROBAN 2 % CREAM Apply to affected area BID MUPIROCIN CALCIUM 90294000144 No Longer Active Gareth Cancino MD Active LISINOPRIL 20 MG TABS 1 tablet by mouth daily for high blood pressure 10/14 LISINOPRIL 49981748463 Active Gareth Cancino MD Active BACTRIM DS 800-160 MG TAB 1 tab by mouth twice daily TRIMETHOPRIM-SULFAMETHOXAZOLE 37556898831 No Longer Active Gareth Cancino MD Active METOPROLOL SUCCINATE ER 100 MG [id number] 1 pill by mouth daily, for blood pressure METOPROLOL SUCCINATE 27391335991 Active Gareth Cancino MD Active KEFLEX 500 MG CAP 1 po TID x 10 days CEPHALEXIN 09790011308 No Longer Active Blanca Castillo APRN Active WELLBUTRIN SR 150 MG ORAL [id number] take 1 tab po BID BUPROPION HCL 96774708578 Active Gareth Cancino MD Active METOPROLOL SUCCINATE 50 MG TB24 1 tablet by mouth daily METOPROLOL SUCCINATE 30983083248 No Longer Active Gareth Cancino MD Active OMEPRAZOLE 20 MG TBEC Take one by mouth daily OMEPRAZOLE 78415554259 No Longer Active Gareth Cancino MD Active OMEPRAZOLE 40 MG CPDR 1 tab po qday for acid reflux. OMEPRAZOLE 04490619838 Active Mary Shah APRN Active LEVAQUIN 500 MG TAB 1 tablet by mouth daily LEVOFLOXACIN 51168755894 No Longer Active Gareth Cancino MD Active ALEVE 220 MG TAB 2 tab po qd NAPROXEN SODIUM 99010440332 Active Gareth Cancino MD Active ASPIRIN 81 MG CHEW TAB 1 tablet by mouth daily ASPIRIN 81963484370 Active Gareth Cancino MD Active VENTOLIN HFA 108 (90 BASE) MCG/ACT AERS 1-2 puffs four times a day PRN shortness of breath ALBUTEROL SULFATE 74784605349 Active Mary Shah SCHEDULING ADMINISTRATOR Active CENTRUM SILVER TABS 1 TAB PO DAILY MULTIPLE VITAMINS-MINERALS 80446225214 Active Gareth Cancino MD Active VITAMIN B12 100 MCG TABS 1 TAB PO DAILY CYANOCOBALAMIN 98266972649 Active Gareth Cancino MD Active CIPRO 500 MG TABS 1 TAB PO BID CIPROFLOXACIN HCL 59522420339 No Longer Active Gareth Cancino MD Active BACTRIM DS 800-160 MG TAB 1 tab by mouth twice daily TRIMETHOPRIM-SULFAMETHOXAZOLE 32004143843 No Longer Active Gareth Cancino MD Active PREDNISONE 20 MG TAB 1 tab po BID for 3 days, then 1 tab po qday for 3 days PREDNISONE 66128417976 No Longer Active Gareth Cancino MD Active FOLIC ACID 800 MCG TABS Take one by mouth daily FOLIC ACID 18134279719 No Longer Active Gareth Cancino MD Active VITAMIN B-6 250 MG TABS Take one by mouth daily PYRIDOXINE HCL 57184285043 No Longer Active Gareth Cancino MD Active B-12 1000 MCG CAPS Take one by mouth daily CYANOCOBALAMIN 15547105566 No Longer Active Gareth Cancino MD Active DOXYCYCLINE HYCLATE 100 MG CAP 1 cap by mouth twice daily DOXYCYCLINE HYCLATE 20957169064 No Longer Active Gareth Cancino MD Active PREDNISONE 20 MG TAB 1 po bid 3 days, then 1 po q day 3 days 2011 PREDNISONE 36036037527 No Longer Active Gareth Cancino MD Active CHANTIX STARTING MONTH RUBEN 0.5 MG X 11 & 1 MG X 42 TABS 0.5mg daily for 3 days , then 0.5mg BID for 4 days, then 1mg BID VARENICLINE TARTRATE 79978202529 No Longer Active Gareth Cancino MD Active SIMVASTATIN 40 MG TABS Take one by mouth daily SIMVASTATIN 83861776355 Active Gareth Cancino MD Active TRIAMTERENE-HCTZ 37.5-25 MG CAPS Take one by mouth daily TRIAMTERENE- HCTZ 06552756281 Active Gareth Cancino MD Active CHANTIX STARTING [...] 3 days 2011 PREDNISONE 20 MG TAB 462762 PREDNISONE Inactive DOXYCYCLINE HYCLATE 100 MG CAP 1 cap by mouth twice daily DOXYCYCLINE HYCLATE 100 MG CAP 2543962 DOXYCYCLINE HYCLATE Inactive B-12 1000 MCG CAPS Take one by mouth daily B-12 1000 MCG CAPS CYANOCOBALAMIN Inactive VITAMIN B-6 250 MG TABS Take one by mouth daily VITAMIN B-6 250 MG TABS PYRIDOXINE HCL Inactive FOLIC ACID 800 MCG TABS Take one by mouth daily FOLIC ACID 800 MCG TABS 652885 FOLIC ACID Inactive CIPRO 500 MG TABS 1 TAB PO BID CIPRO 500 MG TABS 064656 CIPROFLOXACIN HCL Inactive OMEPRAZOLE 20 MG TBEC Take one by mouth daily OMEPRAZOLE 20 MG TBEC 867406 OMEPRAZOLE Inactive METOPROLOL SUCCINATE 50 MG TB24 1 tablet by mouth daily METOPROLOL SUCCINATE 50 MG TB24 METOPROLOL SUCCINATE Inactive BACTROBAN 2 % CREAM Apply to affected area BID BACTROBAN 2 % CREAM 213598 MUPIROCIN CALCIUM Inactive CLOBETASOL PROPIONATE 0.05 % CREA apply to hand rash bid CLOBETASOL PROPIONATE 0.05 % CREA 919538 CLOBETASOL PROPIONATE Inactive ALPRAZOLAM 0.25 MG TAB 1/2 to 1 tablet by mouth qhs prn ALPRAZOLAM 0.25 MG TAB 931593 ALPRAZOLAM Inactive PREDNISONE 20 MG TAB 1 tab po BID for 3 days, then 1 tab po qday for 3 days PREDNISONE 20 MG TAB 372024 PREDNISONE Inactive BACTRIM DS 800-160 MG TAB 1 tab by mouth twice daily BACTRIM DS 800-160 MG TAB 728334 TRIMETHOPRIM-SULFAMETHOXAZOLE Inactive LEVAQUIN 500 MG TAB 1 tablet by mouth daily LEVAQUIN 500 MG TAB 969907 LEVOFLOXACIN Inactive KEFLEX 500 MG CAP 1 po TID x 10 days KEFLEX 500 MG CAP 267214 CEPHALEXIN Inactive BACTRIM DS 800-160 MG TAB 1 tab by mouth twice daily BACTRIM DS 800-160 MG TAB 914462 TRIMETHOPRIM-SULFAMETHOXAZOLE Inactive Vital Signs Date Name Value [...] ... - Chemistry cholesterol, serum 195 mg/dL 967-368 6164/12/02 triglyceride, serum, fasting 74 mg/dL 30-200 HDL cholesterol, serum 52 mg/dL 32-96 LDL cholesterol, serum 128 mg/dL 0-130 sodium, serum 134 mmol/L 686-269 4619/12/02 carbon dioxide, venous blood 30.3 mmol/L 21.0-32.0 [...] 0-19 Encounters Code Encounter Date Provider Facility CPT-76594 Level 3 Est. Patient 23:08:20 CDT Gareth Cancino MD [facility] CPT-12401 Level 4 Est. Patient 20:40:10 CDT Gareth Cancino MD [facility] CPT-31657 Level 4 Est. Patient 19:50:11 CDT Gareth Cancino MD [facility] CPT-59225 Level 3 Est. Patient 11:00:13 CDT Gareth Cancino MD [facility] CPT-12689 Level 4 Est. Patient 11:20:21 CDT Gareth Cancino MD [facility] CPT-84594 Level 4 Est. Patient 09:22:18 B[employer]ENDER MANAGER Gareth Cancino MD [facility] CPT-74710 Level 3 Est. Patient 09:48:04 CDT Gareth Cancino MD [facility] CPT-30977 Level 3 Est. Patient 10:13:16 CDT Gareth Cancino MD [facility] CPT-19033 Level 2 Est. Patient 18:36:56 CDT Gareth Cancino MD [facility] CPT-77434 Level 4 Est. Patient 13:50:53 CDT Gareth Cancino MD [facility] CPT-10137 Level 3 Est. Patient 14:58:33 BARTENDER MANAGER Gareth Cancino MD [facility] CPT-84916 Level 4 Est. Patient 09:25:57 CDT Gareth Cancino MD [facility] CPT-14996 Level 3 Est. Patient 20:39:33 CDT Noman Edwards DO [facility] CPT-66520 Level 2 Est. Patient 13:17:39 CDT Gareth Cancino MD [facility] CPT-09381 Level 3 Est. Patient 13:37:20 CDT Gareth Cancino MD [facility] CPT-36593 Level 3 Est. Patient 18:09:08 CDT Gareth Cancino MD [facility] CPT-10299 Level 4 Est. Patient 09:59:07 CDT Gareth Cancino MD [facility] Procedures Code Procedure Name Date Entry Date Standard Description CPT-63853 LS spine AP and Lat - XRAY USE ONLY 10:31:51 CDT 07/27 CPT-05063 Punch biopsy 1 lsn 20:40:09 CDT CPT-G0008 Administration of Influenza Virus Vaccine 10:04:48 [employer]ENDER MANAGER CPT-67580 Fluzone High-Dose Intramuscular Suspension 10:04:48 BARTENDER MANAGER CPT-83936 Ribs unilat w PA chst min 3V 10:45:40 CDT CPT-LR Lesion Removal 13:14:55 CDT CPT-Cryo Cryotherapy 13:14:55 CDT CPT-26848 Venipuncture Draw Fee 10:25:49 CDT CPT-78177 Administration single or combination vaccine inc oral 13 :22:14 BARTENDER MANAGER CPT-45836 Influenza High Dose age 65+ 13:22:14 BARTENDER MANAGER
[2016-12-06] MEDS ORDERED: BUP/EPI 0.5% 1:200,000 (MARCAINE) 10ML VIAL IJ ONE ×2 (09:07→12:49)
[2016-12-06] MEDS ORDERED: VANCOMYCIN 1000 MG/VIAL ONE (09:07)
--- OUTSIDE RECORDS SUMMARY | 2016-12-06 09:07 | XMS REPORT | Clinical Summary ---
Author Author Admin, HILARIA Organization [employer] Address Unknown Phone Unavailable Allergies, Adverse Reactions, [...] cause Skin lesion 709.9 Active Blanca Castillo STENOGRAPHER SECRETARY Unspecified disorder of skin and subcutaneous tissue Folliculitis 704.8 Active Gareth Cancino MD Other specified diseases of hair and hair follicles Low back pain, chronic 724.2 Active Gareth Cancino MD Lumbago Frequency of urination 788.41 Active Negin Garcia HR BUSINESS PARTNER Urinary frequency Actinic keratosis 702.0 Active Gareth [...] MG ORAL TABS 1 tab daily AZITHROMYCIN 03629026752 No Longer Active Gareth Cancino MD Active ZITHROMAX 250 MG TAB 2 po today, then 1 po q days 2-5 AZITHROMYCIN 18666238808 No Longer Active Tangela Forte Active IPRATROPIUM-ALBUTEROL 0.5-2.5 (3) MG/3ML INH SOLN nebulize 1 vial every 6hrs prn shortness of breath IPRATROPIUM-ALBUTEROL 40426662691 Active Gareth Cancino MD Active FENTANYL 25 MCG/HR PT72 Apply to clean, dry skin and change every 72 hours FENTANYL 42940238337 Active Gareth Cancino MD Active WELLBUTRIN SR 150 MG ORAL [id number] take 1 tab po BID BUPROPION HCL 54721781587 No Longer Active Gareth Cancino MD Active ZOFRAN 4 MG ORAL TABS 1 by mouth every 6 hours prn nausea ONDANSETRON HCL 70310363036 Active Tangela Forte Active TRAMADOL HCL 50 MG TABS 1 po tid PRN TRAMADOL HCL 52378651797 Active Gareth Cancino MD Active HYDROCODONE-ACETAMINOPHEN 5-325 MG TABS 1 tab by mouth every 6 hours as needed for bck pain HYDROCODONE-ACETAMINOPHEN 72224139520 Active Gareth Cancino MD Active ALPRAZOLAM 0.25 MG TAB 1/2 to 1 tablet by mouth qhs prn ALPRAZOLAM 96883885713 No Longer Active Gareth Cancino MD Active CLOBETASOL PROPIONATE 0.05 % CREA apply to hand rash bid CLOBETASOL PROPIONATE 68493637331 No Longer Active Gareth Cancino MD Active BACTROBAN 2 % CREAM Apply to affected area BID MUPIROCIN CALCIUM 14952707485 No Longer Active Gareth Cancino MD Active LISINOPRIL 20 MG TABS 1 tablet by mouth daily for high blood pressure 10/14 LISINOPRIL 58645325408 Active Gareth Cancino MD Active BACTRIM DS 800-160 MG TAB 1 tab by mouth twice daily TRIMETHOPRIM-SULFAMETHOXAZOLE 86330532958 No Longer Active Gareth Cancino MD Active METOPROLOL SUCCINATE ER 100 MG [id number] 1 pill by mouth daily, for blood pressure METOPROLOL SUCCINATE 34843788740 Active Gareth Cancino MD Active KEFLEX 500 MG CAP 1 po TID x 10 days CEPHALEXIN 43354763985 No Longer Active Blanca Castillo APRN Active METOPROLOL SUCCINATE 50 MG TB24 1 tablet by mouth daily METOPROLOL SUCCINATE 93264144186 No Longer Active Gareth Cancino MD Active OMEPRAZOLE 20 MG TBEC Take one by mouth daily OMEPRAZOLE 71876562108 No Longer Active Gareth Cancino MD Active OMEPRAZOLE 40 MG CPDR 1 tab po qday for acid reflux. OMEPRAZOLE 82541556759 Active Mary Shah APRN Active LEVAQUIN 500 MG TAB 1 tablet by mouth daily LEVOFLOXACIN 16301727022 No Longer Active aGreth Cancino MD Active ALEVE 220 MG TAB 2 tab po qd NAPROXEN SODIUM 83408226543 Active Gareth Cancino MD Active ASPIRIN 81 MG CHEW TAB 1 tablet by mouth daily ASPIRIN 45864246174 Active Gareth Cancino MD Active VENTOLIN HFA 108 (90 BASE) MCG/ACT AERS 1-2 puffs four times a day PRN shortness of breath ALBUTEROL SULFATE 38489334008 Active Mary Shah STENOGRAPHER SECRETARY Active CENTRUM SILVER TABS 1 TAB PO DAILY MULTIPLE VITAMINS-MINERALS 10551578917 Active Gareth Cancino MD Active VITAMIN B12 100 MCG TABS 1 TAB PO DAILY CYANOCOBALAMIN 33378819194 Active Gareth Cancino MD Active CIPRO 500 MG TABS 1 TAB PO BID CIPROFLOXACIN HCL 32729810301 No Longer Active Gareth Cancino MD Active BACTRIM DS 800-160 MG TAB 1 tab by mouth twice daily TRIMETHOPRIM-SULFAMETHOXAZOLE 00973756796 No Longer Active Gareth Cancino MD Active PREDNISONE 20 MG TAB 1 tab po BID for 3 days, then 1 tab po qday for 3 days PREDNISONE 52720439348 No Longer Active Gareth Cancino MD Active FOLIC ACID 800 MCG TABS Take one by mouth daily FOLIC ACID 71985126595 No Longer Active Gareth Cancino MD Active VITAMIN B-6 250 MG TABS Take one by mouth daily PYRIDOXINE HCL 42342543737 No Longer Active Gareth Cancino MD Active B-12 1000 MCG CAPS Take one by mouth daily CYANOCOBALAMIN 47542813781 No Longer Active Gareth Cancino MD Active DOXYCYCLINE HYCLATE 100 MG CAP 1 cap by mouth twice daily DOXYCYCLINE HYCLATE 10643893047 No Longer Active Gareth Cancino MD Active PREDNISONE 20 MG TAB 1 po bid 3 days, then 1 po q day 3 days 2011 PREDNISONE 10708280604 No Longer Active Gareth Cancino MD Active CHANTIX STARTING MONTH RUBEN 0.5 MG X 11 & 1 MG X 42 TABS 0.5mg daily for 3 days , then 0.5mg BID for 4 days, then 1mg BID VARENICLINE TARTRATE 88144261217 No Longer Active Gareth Cancino MD Active SIMVASTATIN 40 MG TABS Take one by mouth daily SIMVASTATIN 11921041581 Active Gareth Cancino MD Active TRIAMTERENE-HCTZ 37.5-25 MG CAPS Take one by mouth daily TRIAMTERENE- HCTZ 82024865744 Active Gareth Cancino MD Active CHANTIX STARTING [...] 3 days 2011 PREDNISONE 20 MG TAB 528389 PREDNISONE Inactive DOXYCYCLINE HYCLATE 100 MG CAP 1 cap by mouth twice daily DOXYCYCLINE HYCLATE 100 MG CAP 4883769 DOXYCYCLINE HYCLATE Inactive B-12 1000 MCG CAPS Take one by mouth daily B-12 1000 MCG CAPS CYANOCOBALAMIN Inactive VITAMIN B-6 250 MG TABS Take one by mouth daily VITAMIN B-6 250 MG TABS PYRIDOXINE HCL Inactive FOLIC ACID 800 MCG TABS Take one by mouth daily FOLIC ACID 800 MCG TABS 819030 FOLIC ACID Inactive CIPRO 500 MG TABS 1 TAB PO BID CIPRO 500 MG TABS 961937 CIPROFLOXACIN HCL Inactive OMEPRAZOLE 20 MG TBEC Take one by mouth daily OMEPRAZOLE 20 MG TBEC 598169 OMEPRAZOLE Inactive METOPROLOL SUCCINATE 50 MG TB24 1 tablet by mouth daily METOPROLOL SUCCINATE 50 MG TB24 METOPROLOL SUCCINATE Inactive BACTROBAN 2 % CREAM Apply to affected area BID BACTROBAN 2 % CREAM 809832 MUPIROCIN CALCIUM Inactive CLOBETASOL PROPIONATE 0.05 % CREA apply to hand rash bid 2016/06/ 06 CLOBETASOL PROPIONATE 0.05 % CREA 989290 CLOBETASOL PROPIONATE Inactive ALPRAZOLAM 0.25 MG TAB 1/2 to 1 tablet by mouth qhs prn ALPRAZOLAM 0.25 MG TAB 981415 ALPRAZOLAM Inactive WELLBUTRIN SR 150 MG ORAL [id number] take 1 tab po BID WELLBUTRIN SR 150 MG ORAL [id number] BUPROPION HCL Inactive AZITHROMYCIN 250 MG ORAL TABS 1 tab daily AZITHROMYCIN 250 MG ORAL TABS 7360838 AZITHROMYCIN Inactive PREDNISONE 20 MG TAB 1 tab po BID for 3 days, then 1 tab po qday for 3 days PREDNISONE 20 MG TAB 696800 PREDNISONE Inactive BACTRIM DS 800-160 MG TAB 1 tab by mouth twice daily BACTRIM DS 800-160 MG TAB 209939 TRIMETHOPRIM-SULFAMETHOXAZOLE Inactive LEVAQUIN 500 MG TAB 1 tablet by mouth daily LEVAQUIN 500 MG TAB 050704 LEVOFLOXACIN Inactive KEFLEX 500 MG CAP 1 po TID x 10 days KEFLEX 500 MG CAP 742992 CEPHALEXIN Inactive BACTRIM DS 800-160 MG TAB 1 tab by mouth twice daily BACTRIM DS 800-160 MG TAB 370768 TRIMETHOPRIM-SULFAMETHOXAZOLE Inactive ZITHROMAX 250 MG TAB 2 po today, then 1 po q days 2-5 ZITHROMAX 250 MG TAB 4183140 AZITHROMYCIN Inactive Vital Signs Date Name Value [...] Panel - Chemistry sodium, serum 133 mmol/L 495-325 1767/08/24 potassium, serum 4.4 mmol/L 3.5-5.2 chloride, serum 95 mmol/L 98-107 carbon dioxide, venous blood 33.0 mmol/L 21.0-32.0 blood glucose 107 mg/dL 65-110 calcium, serum 8.8 mg/dL 8.5-10.1 urea nitrogen, blood 12 mg/dL 7-18 creatinine, serum 0.69 mg/dL 0.55-1.30 Lab Report: CBC, Basic Metabolic Panel - Chemistry sodium, serum 132 mmol/L 932-533 1765/10/12 potassium, serum 4.7 mmol/L 3.5-5.2 chloride, serum [...] CBC - Chemistry sodium, serum 136 mmol/L 116-995 4737/11/01 carbon dioxide, venous blood 32.1 mmol/L 21.0-32.0 [...] mg/g mg/g{creat} 0-29 cholesterol, serum 195 mg/dL 698-502 8424/12/02 triglyceride, serum, fasting 74 mg/dL 30-200 HDL cholesterol, serum 52 mg/dL 32-96 LDL cholesterol, serum 128 mg/dL 0-130 sodium, serum 134 mmol/L 996-530 5408/12/02 carbon dioxide, venous blood 30.3 mmol/L 21.0-32.0 [...] 5.0-8.5 Encounters Code Encounter Date Provider Facility CPT-21348 Level 3 Est. Patient 10:34:55 CDT Gareth Cancino MD [facility] CPT-11461 Level 4 Est. Patient 09:00:18 CDT Gareth Cancino MD [facility] CPT-37767 Level 3 Est. Patient 15:12:03 CDT Gareth Cancino MD [facility] CPT-82375 Level 3 Est. Patient 23:08:20 CDT Gareth Cancino MD [facility] CPT-88934 Level 4 Est. Patient 20:40:10 CDT Gareth Cancino MD [facility] CPT-28886 Level 4 Est. Patient 19:50:11 CDT Gareth Cancino MD [facility] CPT-91826 Level 3 Est. Patient 11:00:13 CDT Gareth Cancino MD [facility] CPT-15516 Level 4 Est. Patient 11:20:21 CDT Gareth Cancino MD [facility] CPT-96765 Level 4 Est. Patient 09:22:18 AUTOMATION AND CONTROLS INSTRUCTOR Gareth Cancino MD [facility] CPT-69997 Level 3 Est. Patient 09:48:04 CDT Gareth Cancino MD [facility] CPT-01404 Level 3 Est. Patient 10:13:16 CDT Gareth Cancino MD [facility] CPT-18361 Level 2 Est. Patient 18:36:56 CDT Gareth Cancino MD [facility] CPT-20088 Level 4 Est. Patient 13:50:53 CDT Gareth Cancino MD [facility] CPT-76095 Level 3 Est. Patient 14:58:33 AUTOMATION AND CONTROLS INSTRUCTOR Gareth Cancino MD [facility] CPT-23849 Level 4 Est. Patient 09:25:57 CDT Gareth Cancino MD [facility] CPT-11008 Level 3 Est. Patient 20:39:33 CDT Noman Edwards DO [facility] CPT-25883 Level 2 Est. Patient 13:17:39 CDT Gareth Cancino MD [facility] CPT-39720 Level 3 Est. Patient 13:37:20 CDT Gareth Cancino MD [facility] CPT-34841 Level 3 Est. Patient 18:09:08 CDT Gareth Cancino MD [facility] CPT-65211 Level 4 Est. Patient 09:59:07 CDT Gareth Cancino MD [facility] Procedures Code Procedure Name Date Entry Date Standard Description CPT-90583 CMP - LAB USE ONLY 16:31:15 CDT CPT-57403 CBC - LAB USE ONLY 16:31:14 CDT CPT-92504 Venipuncture Draw Fee 16:31:14 CDT CPT-03841 BMP - LAB USE ONLY 14:37:27 CDT CPT-80634 CBC - LAB USE ONLY 14:37:27 CDT CPT-38425 Venipuncture Draw Fee 14:37:27 CDT CPT-TCMM Transitional Care Mgmt-Moderate 14:43:38 CDT CPT-87317 Venipuncture Draw Fee 10:33:47 CDT CPT-66550 BMP - LAB USE ONLY 10:33:46 CDT CPT-Cryo Cryotherapy 15:12:03 CDT CPT-48632 LS spine AP and Lat - XRAY USE ONLY 10:31:51 CDT 07/27 CPT-38346 Punch biopsy 1 lsn 20:40:09 CDT CPT-G0008 Administration of Influenza Virus Vaccine 10:04:48 AUTOMATION AND CONTROLS INSTRUCTOR CPT-65186 Fluzone High-Dose Intramuscular Suspension 10:04:48 AUTOMATION AND CONTROLS INSTRUCTOR CPT-04076 Ribs unilat w PA chst min 3V 10:45:40 CDT CPT-LR Lesion Removal 13:14:55 CDT CPT-Cryo Cryotherapy 13:14:55 CDT CPT-78578 Venipuncture Draw Fee 10:25:49 CDT CPT-49948 Administration single or combination vaccine inc oral 13 :22:14 AUTOMATION AND CONTROLS INSTRUCTOR CPT-23207 Influenza High Dose age 65+ 13:22:14 AUTOMATION AND CONTROLS INSTRUCTOR
--- OUTSIDE RECORDS SUMMARY | 2016-12-06 09:08 | XMS REPORT | Clinical Summary ---
Author Author Admin, HILARIA Organization [employer] Address Unknown Phone Unavailable Allergies, Adverse Reactions, [...] MD 2015 Contact dermatitis ICD-692.9 Inactive Gareth aCncino MD Skin lesion ICD-709.9 Inactive Gareth Cancino [...] 1/2 tab daily for 4 days PREDNISONE 05788986330 No Longer Active Mary Shah APRN Active LEVAQUIN 500 MG TAB 1 tablet by mouth daily for 7 days LEVOFLOXACIN 09992383402 Active Mary Shah APRN Active AZITHROMYCIN 250 MG TABS 2 po qd x 1 day, then 1 po qd x 4 days AZITHROMYCIN 88178652207 No Longer Active Danuta Modi Active AZITHROMYCIN 250 MG TABS 2 po qd x 1 day, then 1 po qd x 4 days AZITHROMYCIN 61207749705 No Longer Active Tangela Forte Active HYDROCODONE-ACETAMINOPHEN 5-325 MG TABS 1 tab by mouth every 6 hours as needed for bck pain HYDROCODONE-ACETAMINOPHEN 28994183698 No Longer Active Gareth Cancino MD Active FENTANYL 12 MCG/HR PT72 Apply to clean, dry skin and change every 72 hours FENTANYL 81646909655 Active Gareth Cancino MD Active ALPRAZOLAM 0.25 MG TAB 1 tablet by mouth q hs prn ALPRAZOLAM 86418950648 Active Gareth Cancino MD Active AZITHROMYCIN 250 MG ORAL TABS 1 tab daily AZITHROMYCIN 38204690557 No Longer Active Gareth Cancino MD Active ZITHROMAX 250 MG TAB 2 po today, then 1 po q days 2-5 AZITHROMYCIN 25281026691 No Longer Active Tangela Forte Active IPRATROPIUM-ALBUTEROL 0.5-2.5 (3) MG/3ML INH SOLN nebulize 1 vial every 6hrs prn shortness of breath IPRATROPIUM-ALBUTEROL 97926155452 Active Gareth Cancino MD Active FENTANYL 25 MCG/HR PT72 Apply to clean, dry skin and change every 72 hours FENTANYL 85399950321 No Longer Active Gareth Cancino MD Active WELLBUTRIN SR 150 MG ORAL [id number] take 1 tab po BID BUPROPION HCL 54009266395 No Longer Active Gareth Cancino MD Active ZOFRAN 4 MG ORAL TABS 1 by mouth every 6 hours prn nausea ONDANSETRON HCL 96307325608 Active Tangela Forte Active TRAMADOL HCL 50 MG TABS 1 po tid PRN TRAMADOL HCL 05040967857 Active Gareth Cancino MD Active ALPRAZOLAM 0.25 MG TAB 1/2 to 1 tablet by mouth qhs prn ALPRAZOLAM 91993509014 No Longer Active Gareth Cancino MD Active CLOBETASOL PROPIONATE 0.05 % CREA apply to hand rash bid CLOBETASOL PROPIONATE 66841402366 No Longer Active Gareth Cancino MD Active BACTROBAN 2 % CREAM Apply to affected area BID MUPIROCIN CALCIUM 10575825460 No Longer Active Gareth Cancino MD Active LISINOPRIL 20 MG TABS 1 tablet by mouth daily for high blood pressure 10/14 LISINOPRIL 07553467362 Active Mary Shah APRN Active BACTRIM DS 800-160 MG TAB 1 tab by mouth twice daily TRIMETHOPRIM-SULFAMETHOXAZOLE 89120668099 No Longer Active Gareth Cancino MD Active METOPROLOL SUCCINATE ER 100 MG [id number] 1 pill by mouth daily, for blood pressure METOPROLOL SUCCINATE 30768971342 Active Mary Shah APRN Active KEFLEX 500 MG CAP 1 po TID x 10 days CEPHALEXIN 23769546676 No Longer Active Blanca Castillo APRN Active METOPROLOL SUCCINATE 50 MG TB24 1 tablet by mouth daily METOPROLOL SUCCINATE 79062949840 No Longer Active Gareth Cancino MD Active OMEPRAZOLE 20 MG TBEC Take one by mouth daily OMEPRAZOLE 51777276137 No Longer Active Gareth Cancino MD Active OMEPRAZOLE 40 MG CPDR 1 tab po qday for acid reflux. OMEPRAZOLE 82276746206 Active Mary Shah APRN Active LEVAQUIN 500 MG TAB 1 tablet by mouth daily LEVOFLOXACIN 50742925115 No Longer Active Gareth Cancino MD Active ALEVE 220 MG TAB 2 tab po qd NAPROXEN SODIUM 09683191635 Active Gareth Cancino MD Active ASPIRIN 81 MG CHEW TAB 1 tablet by mouth daily ASPIRIN 82603752561 Active Gareth Cancino MD Active VENTOLIN HFA 108 (90 BASE) MCG/ACT AERS 1-2 puffs four times a day PRN shortness of breath ALBUTEROL SULFATE 31138708868 Active Mary Shah SUPERVISOR DYER Active CENTRUM SILVER TABS 1 TAB PO DAILY MULTIPLE VITAMINS-MINERALS 25006793866 Active Gareth Cancino MD Active VITAMIN B12 100 MCG TABS 1 TAB PO DAILY CYANOCOBALAMIN 58188425848 Active Gareth Cancino MD Active CIPRO 500 MG TABS 1 TAB PO BID CIPROFLOXACIN HCL 49523217392 No Longer Active Gareth Cancino MD Active BACTRIM DS 800-160 MG TAB 1 tab by mouth twice daily TRIMETHOPRIM-SULFAMETHOXAZOLE 32090580626 No Longer Active Gareth Cancino MD Active PREDNISONE 20 MG TAB 1 tab po BID for 3 days, then 1 tab po qday for 3 days PREDNISONE 21580360919 No Longer Active Gareth Cancino MD Active FOLIC ACID 800 MCG TABS Take one by mouth daily FOLIC ACID 47778625254 No Longer Active Gareth Cancino MD Active VITAMIN B-6 250 MG TABS Take one by mouth daily PYRIDOXINE HCL 10105603374 No Longer Active Gareth Cancino MD Active B-12 1000 MCG CAPS Take one by mouth daily CYANOCOBALAMIN 71229296864 No Longer Active Gareth Cancino MD Active DOXYCYCLINE HYCLATE 100 MG CAP 1 cap by mouth twice daily DOXYCYCLINE HYCLATE 51045620570 No Longer Active Gareth Cancino MD Active PREDNISONE 20 MG TAB 1 po bid 3 days, then 1 po q day 3 days 2011 PREDNISONE 71537578325 No Longer Active Gareth Cancino MD Active CHANTIX STARTING MONTH RUBEN 0.5 MG X 11 & 1 MG X 42 TABS 0.5mg daily for 3 days , then 0.5mg BID for 4 days, then 1mg BID VARENICLINE TARTRATE 95890882015 No Longer Active Gareth Cancino MD Active SIMVASTATIN 40 MG TABS Take one by mouth daily SIMVASTATIN 33214124205 Active Gareth Cancino MD Active TRIAMTERENE-HCTZ 37.5-25 MG CAPS Take one by mouth daily TRIAMTERENE- HCTZ 38709688762 Active Gareth Cancino MD Active CHANTIX STARTING [...] 3 days 2011 PREDNISONE 20 MG TAB 298554 PREDNISONE Inactive DOXYCYCLINE HYCLATE 100 MG CAP 1 cap by mouth twice daily DOXYCYCLINE HYCLATE 100 MG CAP 9015584 DOXYCYCLINE HYCLATE Inactive B-12 1000 MCG CAPS Take one by mouth daily B-12 1000 MCG CAPS CYANOCOBALAMIN Inactive VITAMIN B-6 250 MG TABS Take one by mouth daily VITAMIN B-6 250 MG TABS PYRIDOXINE HCL Inactive FOLIC ACID 800 MCG TABS Take one by mouth daily FOLIC ACID 800 MCG TABS 553945 FOLIC ACID Inactive CIPRO 500 MG TABS 1 TAB PO BID CIPRO 500 MG TABS 738887 CIPROFLOXACIN HCL Inactive OMEPRAZOLE 20 MG TBEC Take one by mouth daily OMEPRAZOLE 20 MG TBEC 809308 OMEPRAZOLE Inactive METOPROLOL SUCCINATE 50 MG TB24 1 tablet by mouth daily METOPROLOL SUCCINATE 50 MG TB24 METOPROLOL SUCCINATE Inactive BACTROBAN 2 % CREAM Apply to affected area BID BACTROBAN 2 % CREAM 115345 MUPIROCIN CALCIUM Inactive CLOBETASOL PROPIONATE 0.05 % CREA apply to hand rash bid CLOBETASOL PROPIONATE 0.05 % CREA 342052 CLOBETASOL PROPIONATE Inactive ALPRAZOLAM 0.25 MG TAB 1/2 to 1 tablet by mouth qhs prn ALPRAZOLAM 0.25 MG TAB 313014 ALPRAZOLAM Inactive WELLBUTRIN SR 150 MG ORAL [id number] take 1 tab po BID WELLBUTRIN SR 150 MG ORAL [id number] BUPROPION HCL Inactive AZITHROMYCIN 250 MG ORAL TABS 1 tab daily AZITHROMYCIN 250 MG ORAL TABS 0222503 AZITHROMYCIN Inactive HYDROCODONE-ACETAMINOPHEN 5-325 MG TABS 1 tab by mouth every 6 hours as needed for bck pain HYDROCODONE-ACETAMINOPHEN 5-325 MG TABS 413276 HYDROCODONE-ACETAMINOPHEN Inactive PREDNISONE 20 MG TAB 1 tab po BID for 3 days, then 1 tab po qday for 3 days PREDNISONE 20 MG TAB 664815 PREDNISONE Inactive BACTRIM DS 800-160 MG TAB 1 tab by mouth twice daily BACTRIM DS 800-160 MG TAB 721519 TRIMETHOPRIM-SULFAMETHOXAZOLE Inactive LEVAQUIN 500 MG TAB 1 tablet by mouth daily LEVAQUIN 500 MG TAB 373956 LEVOFLOXACIN Inactive KEFLEX 500 MG CAP 1 po TID x 10 days KEFLEX 500 MG CAP 335166 CEPHALEXIN Inactive BACTRIM DS 800-160 MG TAB 1 tab by mouth twice daily BACTRIM DS 800-160 MG TAB 19820425 TRIMETHOPRIM-SULFAMETHOXAZOLE Inactive FENTANYL 25 MCG/HR PT72 Apply to clean, dry skin and change every 72 hours FENTANYL 25 MCG/HR PT72 783307 FENTANYL Inactive ZITHROMAX 250 MG TAB 2 po today, then 1 po q days 2-5 ZITHROMAX 250 MG TAB 2462602 AZITHROMYCIN Inactive AZITHROMYCIN 250 MG TABS 2 po qd x 1 day, then 1 po qd x 4 days AZITHROMYCIN 250 MG TABS 3117802 AZITHROMYCIN Inactive AZITHROMYCIN 250 MG TABS 2 po qd x 1 day, then 1 po qd x 4 days AZITHROMYCIN 250 MG TABS 6703752 AZITHROMYCIN Inactive PREDNISONE 20 MG TAB take 3 tabs daily for 3 days, 2 tabs daily for 3 days, 1 tab daily for 3 days, 1/2 tab daily for 4 days PREDNISONE 20 MG TAB 918799 PREDNISONE Inactive Vital Signs Date Name Value [...] Panel - Chemistry sodium, serum 133 mmol/L 789-645 3247/08/24 potassium, serum 4.4 mmol/L 3.5-5.2 chloride, serum 95 mmol/L 98-107 carbon dioxide, venous blood 33.0 mmol/L 21.0-32.0 blood glucose 107 mg/dL 65-110 calcium, serum 8.8 mg/dL 8.5-10.1 urea nitrogen, blood 12 mg/dL 7-18 creatinine, serum 0.69 mg/dL 0.55-1.30 Lab Report: CBC, Basic Metabolic Panel - Chemistry sodium, serum 132 mmol/L 661-971 4067/10/12 potassium, serum 4.7 mmol/L 3.5-5.2 chloride, serum [...] CBC - Chemistry sodium, serum 136 mmol/L 129-377 1553/11/01 carbon dioxide, venous blood 32.1 mmol/L 21.0-32.0 [...] Negative Encounters Code Encounter Date Provider Facility CPT-34138 Level 3 Est. Patient 09:05:25 BIAS MACHINE OPERATOR HELPER Mayr Shah APRN [facility] CPT-81538 Level 3 Est. Patient 20:53:25 BIAS MACHINE OPERATOR HELPER Garteh Cancino MD [facility] CPT-62928 Level 3 Est. Patient 10:34:55 CDT Gareth Cancino MD [facility] CPT-85123 Level 4 Est. Patient 09:00:18 CDT Gareth Cancino MD [facility] CPT-09368 Level 3 Est. Patient 15:12:03 CDT Gareth Cancino MD [facility] CPT-06598 Level 3 Est. Patient 23:08:20 CDT Gareth Cancino MD [facility] CPT-11692 Level 4 Est. Patient 20:40:10 CDT Gareth Cancino MD [facility] CPT-83927 Level 4 Est. Patient 19:50:11 CDT Gareth Cancino MD [facility] CPT-61775 Level 3 Est. Patient 11:00:13 CDT Gareth Cancino MD [facility] CPT-75980 Level 4 Est. Patient 11:20:21 CDT Gareth Cancino MD [facility] CPT-55424 Level 4 Est. Patient 09:22:18 BIAS MACHINE OPERATOR HELPER Gareth Cancino MD [facility] CPT-52206 Level 3 Est. Patient 09:48:04 CDT Gareth Cancino MD [facility] CPT-93634 Level 3 Est. Patient 10:13:16 CDT Gareth Cancino MD [facility] CPT-86378 Level 2 Est. Patient 18:36:56 CDT Gareth Cancino MD [facility] CPT-23384 Level 4 Est. Patient 13:50:53 CDT Gareth Cancino MD [facility] CPT-12995 Level 3 Est. Patient 14:58:33 BIAS MACHINE OPERATOR HELPER Gareth Cancino MD [facility] CPT-99849 Level 4 Est. Patient 09:25:57 CDT Gareth Cancino MD [facility] CPT-21464 Level 3 Est. Patient 20:39:33 CDT Noman Edwards DO [facility] CPT-85746 Level 2 Est. Patient 13:17:39 CDT Gareth Cancino MD [facility] CPT-52445 Level 3 Est. Patient 13:37:20 CDT Gareth Cancino MD [facility] CPT-69437 Level 3 Est. Patient 18:09:08 CDT Gareth Cancino MD [facility] CPT-77159 Level 4 Est. Patient 09:59:07 CDT Gareth Cancino MD [facility] Procedures Code Procedure Name Date Entry Date Standard Description CPT-000 Give Appropriate Flu Vaccine 09:29:52 BIAS MACHINE OPERATOR HELPER CPT-000 Give Appropriate Flu Vaccine 09:22:20 BIAS MACHINE OPERATOR HELPER CPT-29249 TSH - LAB USE ONLY 08:11:40 BIAS MACHINE OPERATOR HELPER CPT-68003 Free T4 - LAB USE ONLY 08:11:40 BIAS MACHINE OPERATOR HELPER CPT-01902 Venipuncture Draw Fee 08:11:40 BIAS MACHINE OPERATOR HELPER CPT-13488 UA w micro - LAB USE ONLY 14:26:22 BIAS MACHINE OPERATOR HELPER CPT-G0438 Initial Annual Wellness Exam 20:53:25 BIAS MACHINE OPERATOR HELPER CPT-G0009 Administration of Pneumococcal Vaccine 11:42:53 BIAS MACHINE OPERATOR HELPER CPT-55424 Prevnar 13 Intramuscular Suspension 11:42:53 BIAS MACHINE OPERATOR HELPER 01/07 CPT-70947 First Vx - Ix admin for Medicare patients 11:39:44 BIAS MACHINE OPERATOR HELPER CPT-67953 Fluzone High-Dose Intramuscular Suspension 11:39:44 BIAS MACHINE OPERATOR HELPER CPT-75074 Prevnar 13 Intramuscular Suspension 09:29:52 BIAS MACHINE OPERATOR HELPER 01/07 CPT-95971 CMP - LAB USE ONLY 16:31:15 CDT CPT-87596 CBC - LAB USE ONLY 16:31:14 CDT CPT-79834 Venipuncture Draw Fee 16:31:14 CDT CPT-21618 BMP - LAB USE ONLY 14:37:27 CDT CPT-82552 CBC - LAB USE ONLY 14:37:27 CDT CPT-30177 Venipuncture Draw Fee 14:37:27 CDT CPT-TCMM Transitional Care Mgmt-Moderate 14:43:38 CDT CPT-18481 Venipuncture Draw Fee 10:33:47 CDT CPT-17531 BMP - LAB USE ONLY 10:33:46 CDT CPT-Cryo Cryotherapy 15:12:03 CDT CPT-71437 LS spine AP and Lat - XRAY USE ONLY 10:31:51 CDT 07/27 CPT-48222 Punch biopsy 1 lsn 20:40:09 CDT CPT-G0008 Administration of Influenza Virus Vaccine 10:04:48 BIAS MACHINE OPERATOR HELPER CPT-30779 Fluzone High-Dose Intramuscular Suspension 10:04:48 BIAS MACHINE OPERATOR HELPER CPT-87541 Ribs unilat w PA chst min 3V 10:45:40 CDT CPT-LR Lesion Removal 13:14:55 CDT CPT-Cryo Cryotherapy 13:14:55 CDT CPT-52896 Venipuncture Draw Fee 10:25:49 CDT CPT-48994 Administration single or combination vaccine inc oral 13 :22:14 BIAS MACHINE OPERATOR HELPER CPT-48608 Influenza High Dose age 65+ 13:22:14 BIAS MACHINE OPERATOR HELPER
--- OUTSIDE RECORDS SUMMARY | 2016-12-06 09:10 | XMS REPORT | Clinical Summary ---
Author Author Admin, HILARIA Organization [employer] Address Unknown Phone Unavailable Allergies, Adverse Reactions, [...] ENCOUNTER FOR REMOVAL OF SUTURES V58.32 Resolved Gaerth Cancino MD Encounter for removal of sutures [...] po daily as needed for arthritis/pain PIROXICAM 81890154487 Active Tangela Raida Active ZITHROMAX Z-RUBEN 250 MG TABS 2 today, then 1 daily for 4 days 2016 AZITHROMYCIN 70701194238 No Longer Active Tangela Forte Active FENTANYL 25 MCG/HR TRANS PT72 1 patch every 72 hours FENTANYL 67468101991 Active Mary Shah APRN Active PREDNISONE 20 MG TAB take 3 tabs daily for 3 days, 2 tabs daily for 3 days, 1 tab daily for 3 days, 1/2 tab daily for 4 days PREDNISONE 00398201761 No Longer Active Mary Shah APRN Active LEVAQUIN 500 MG TAB 1 tablet by mouth daily for 7 days LEVOFLOXACIN 16339192918 Active Mary Shah APRN Active AZITHROMYCIN 250 MG TABS 2 po qd x 1 day, then 1 po qd x 4 days AZITHROMYCIN 44803427830 No Longer Active Danuta Rain Active AZITHROMYCIN 250 MG TABS 2 po qd x 1 day, then 1 po qd x 4 days AZITHROMYCIN 21964022470 No Longer Active Tangela Forte Active HYDROCODONE-ACETAMINOPHEN 5-325 MG TABS 1 tab by mouth every 6 hours as needed for bck pain HYDROCODONE-ACETAMINOPHEN 45550652961 No Longer Active Gareth Cancino MD Active ALPRAZOLAM 0.25 MG TAB 1 tablet by mouth q hs prn ALPRAZOLAM 18627367771 Active Gareth Cancino MD Active AZITHROMYCIN 250 MG ORAL TABS 1 tab daily AZITHROMYCIN 18583921311 No Longer Active Gareth Cancino MD Active ZITHROMAX 250 MG TAB 2 po today, then 1 po q days 2-5 AZITHROMYCIN 55754682510 No Longer Active Tangela Rameseret Active IPRATROPIUM-ALBUTEROL 0.5-2.5 (3) MG/3ML INH SOLN nebulize 1 vial every 6hrs prn shortness of breath IPRATROPIUM-ALBUTEROL 89218195380 Active Gareth Cancino MD Active FENTANYL 25 MCG/HR PT72 Apply to clean, dry skin and change every 72 hours FENTANYL 77986765158 No Longer Active Gareth Cancino MD Active WELLBUTRIN SR 150 MG ORAL [id number] take 1 tab po BID BUPROPION HCL 66932935095 No Longer Active Gareth Cancino MD Active ZOFRAN 4 MG ORAL TABS 1 by mouth every 6 hours prn nausea ONDANSETRON HCL 01490837035 Active Tangela Forte Active TRAMADOL HCL 50 MG TABS 1 po tid PRN TRAMADOL HCL 69691083560 Active Gareth Cancino MD Active ALPRAZOLAM 0.25 MG TAB 1/2 to 1 tablet by mouth qhs prn ALPRAZOLAM 01588831379 No Longer Active Gareth Cancino MD Active CLOBETASOL PROPIONATE 0.05 % CREA apply to hand rash bid CLOBETASOL PROPIONATE 65632158878 No Longer Active Gareth Cancino MD Active BACTROBAN 2 % CREAM Apply to affected area BID MUPIROCIN CALCIUM 96946387072 No Longer Active Gareth Cancino MD Active LISINOPRIL 20 MG TABS 1 tablet by mouth daily for high blood pressure 10/14 LISINOPRIL 65954409302 Active Mary Shah APRN Active BACTRIM DS 800-160 MG TAB 1 tab by mouth twice daily TRIMETHOPRIM-SULFAMETHOXAZOLE 61696369396 No Longer Active Gareth Cancino MD Active METOPROLOL SUCCINATE ER 100 MG [id number] 1 pill by mouth daily, for blood pressure METOPROLOL SUCCINATE 15260109521 Active Mary Shah APRN Active KEFLEX 500 MG CAP 1 po TID x 10 days CEPHALEXIN 14487155778 No Longer Active Blanca Castillo APRN Active METOPROLOL SUCCINATE 50 MG TB24 1 tablet by mouth daily METOPROLOL SUCCINATE 69840621088 No Longer Active Gareth Cancino MD Active OMEPRAZOLE 20 MG TBEC Take one by mouth daily OMEPRAZOLE 76988148748 No Longer Active Gareth Cancino MD Active OMEPRAZOLE 40 MG CPDR 1 tab po qday for acid reflux. OMEPRAZOLE 79027785072 Active Mary Shah APRN Active LEVAQUIN 500 MG TAB 1 tablet by mouth daily LEVOFLOXACIN 63990877711 No Longer Active Gareth Cancino MD Active ALEVE 220 MG TAB 2 tab po qd NAPROXEN SODIUM 30247799478 Active Gareth Cancino MD Active ASPIRIN 81 MG CHEW TAB 1 tablet by mouth daily ASPIRIN 75213518871 Active Gareth Cancino MD Active VENTOLIN HFA 108 (90 BASE) MCG/ACT AERS 1-2 puffs four times a day PRN shortness of breath ALBUTEROL SULFATE 33280377624 Active Mary Shah APRN Active CENTRUM SILVER TABS 1 TAB PO DAILY MULTIPLE VITAMINS-MINERALS 50578611882 Active Gareth Cancino MD Active VITAMIN B12 100 MCG TABS 1 TAB PO DAILY CYANOCOBALAMIN 30864682998 Active Gareth Cancino MD Active CIPRO 500 MG TABS 1 TAB PO BID CIPROFLOXACIN HCL 07412410787 No Longer Active Gareth Cancino MD Active BACTRIM DS 800-160 MG TAB 1 tab by mouth twice daily TRIMETHOPRIM-SULFAMETHOXAZOLE 61349374516 No Longer Active Gareth Cancino MD Active PREDNISONE 20 MG TAB 1 tab po BID for 3 days, then 1 tab po qday for 3 days PREDNISONE 49436981489 No Longer Active Gareth Cancino MD Active FOLIC ACID 800 MCG TABS Take one by mouth daily FOLIC ACID 25427062508 No Longer Active Gareth Cancino MD Active VITAMIN B-6 250 MG TABS Take one by mouth daily PYRIDOXINE HCL 06935261836 No Longer Active Gareth Cancino MD Active B-12 1000 MCG CAPS Take one by mouth daily CYANOCOBALAMIN 17789891650 No Longer Active Gareth Cancino MD Active DOXYCYCLINE HYCLATE 100 MG CAP 1 cap by mouth twice daily DOXYCYCLINE HYCLATE 42374245784 No Longer Active Gareth Cancino MD Active PREDNISONE 20 MG TAB 1 po bid 3 days, then 1 po q day 3 days 2011 PREDNISONE 93626450960 No Longer Active Gareth Cancino MD Active CHANTIX STARTING MONTH RUBEN 0.5 MG X 11 & 1 MG X 42 TABS 0.5mg daily for 3 days , then 0.5mg BID for 4 days, then 1mg BID VARENICLINE TARTRATE 08169759028 No Longer Active Gareth Cancino MD Active SIMVASTATIN 40 MG TABS Take one by mouth daily SIMVASTATIN 93160449831 Active Gareth Cancino MD Active TRIAMTERENE-HCTZ 37.5-25 MG CAPS Take one by mouth daily TRIAMTERENE- HCTZ 14976426871 Active Gareth Cancino MD Active CHANTIX STARTING [...] 3 days 2011 PREDNISONE 20 MG TAB 488693 PREDNISONE Inactive DOXYCYCLINE HYCLATE 100 MG CAP 1 cap by mouth twice daily DOXYCYCLINE HYCLATE 100 MG CAP 6081446 DOXYCYCLINE HYCLATE Inactive B-12 1000 MCG CAPS Take one by mouth daily B-12 1000 MCG CAPS CYANOCOBALAMIN Inactive VITAMIN B-6 250 MG TABS Take one by mouth daily VITAMIN B-6 250 MG TABS PYRIDOXINE HCL Inactive FOLIC ACID 800 MCG TABS Take one by mouth daily FOLIC ACID 800 MCG TABS 223181 FOLIC ACID Inactive CIPRO 500 MG TABS 1 TAB PO BID CIPRO 500 MG TABS 694577 CIPROFLOXACIN HCL Inactive OMEPRAZOLE 20 MG TBEC Take one by mouth daily OMEPRAZOLE 20 MG TBEC 763842 OMEPRAZOLE Inactive METOPROLOL SUCCINATE 50 MG TB24 1 tablet by mouth daily METOPROLOL SUCCINATE 50 MG TB24 METOPROLOL SUCCINATE Inactive BACTROBAN 2 % CREAM Apply to affected area BID BACTROBAN 2 % CREAM 538970 MUPIROCIN CALCIUM Inactive CLOBETASOL PROPIONATE 0.05 % CREA apply to hand rash bid CLOBETASOL PROPIONATE 0.05 % CREA 255120 CLOBETASOL PROPIONATE Inactive ALPRAZOLAM 0.25 MG TAB 1/2 to 1 tablet by mouth qhs prn ALPRAZOLAM 0.25 MG TAB 488685 ALPRAZOLAM Inactive WELLBUTRIN SR 150 MG ORAL [id number] take 1 tab po BID WELLBUTRIN SR 150 MG ORAL [id number] BUPROPION HCL Inactive AZITHROMYCIN 250 MG ORAL TABS 1 tab daily AZITHROMYCIN 250 MG ORAL TABS 1891611 AZITHROMYCIN Inactive HYDROCODONE-ACETAMINOPHEN 5-325 MG TABS 1 tab by mouth every 6 hours as needed for bck pain HYDROCODONE-ACETAMINOPHEN 5-325 MG TABS 949873 HYDROCODONE-ACETAMINOPHEN Inactive PREDNISONE 20 MG TAB 1 tab po BID for 3 days, then 1 tab po qday for 3 days PREDNISONE 20 MG TAB 056169 PREDNISONE Inactive BACTRIM DS 800-160 MG TAB 1 tab by mouth twice daily BACTRIM DS 800-160 MG TAB 628528 TRIMETHOPRIM-SULFAMETHOXAZOLE Inactive LEVAQUIN 500 MG TAB 1 tablet by mouth daily LEVAQUIN 500 MG TAB 189048 LEVOFLOXACIN Inactive KEFLEX 500 MG CAP 1 po TID x 10 days KEFLEX 500 MG CAP 686885 CEPHALEXIN Inactive BACTRIM DS 800-160 MG TAB 1 tab by mouth twice daily BACTRIM DS 800-160 MG TAB 19820425 TRIMETHOPRIM-SULFAMETHOXAZOLE Inactive FENTANYL 25 MCG/HR PT72 Apply to clean, dry skin and change every 72 hours FENTANYL 25 MCG/HR PT72 619926 FENTANYL Inactive ZITHROMAX 250 MG TAB 2 po today, then 1 po q days 2-5 ZITHROMAX 250 MG TAB 6159881 AZITHROMYCIN Inactive AZITHROMYCIN 250 MG TABS 2 po qd x 1 day, then 1 po qd x 4 days AZITHROMYCIN 250 MG TABS 9769133 AZITHROMYCIN Inactive AZITHROMYCIN 250 MG TABS 2 po qd x 1 day, then 1 po qd x 4 days AZITHROMYCIN 250 MG TABS 3000773 AZITHROMYCIN Inactive PREDNISONE 20 MG TAB take 3 tabs daily for 3 days, 2 tabs daily for 3 days, 1 tab daily for 3 days, 1/2 tab daily for 4 days PREDNISONE 20 MG TAB 532358 PREDNISONE Inactive ZITHROMAX Z-RUBEN 250 MG TABS 2 today, then 1 daily for 4 days 2016 ZITHROMAX Z-RUBEN 250 MG TABS 7627585 AZITHROMYCIN Inactive Vital Signs Date Name Value [...] Panel - Chemistry sodium, serum 133 mmol/L 660-347 8213/08/24 potassium, serum 4.4 mmol/L 3.5-5.2 chloride, serum 95 mmol/L 98-107 carbon dioxide, venous blood 33.0 mmol/L 21.0-32.0 blood glucose 107 mg/dL 65-110 calcium, serum 8.8 mg/dL 8.5-10.1 urea nitrogen, blood 12 mg/dL 7-18 creatinine, serum 0.69 mg/dL 0.55-1.30 Lab Report: CBC, Basic Metabolic Panel - Chemistry sodium, serum 132 mmol/L 669-388 6490/10/12 potassium, serum 4.7 mmol/L 3.5-5.2 chloride, serum [...] CBC - Chemistry sodium, serum 136 mmol/L 077-279 5177/11/01 carbon dioxide, venous blood 32.1 mmol/L 21.0-32.0 [...] Negative Encounters Code Encounter Date Provider Facility CPT-58770 Level 3 Est. Patient 09:05:25 FIRE CAPTAIN Mary Shah [facility] [place] CPT-99433 Level 3 Est. Patient 20:53:25 FIRE CAPTAIN Gareth Cancino MD [facility]-59192 Level 3 Est. Patient 10:34:55 CDT Gareth Cancino MD [facility]-87958 Level 4 Est. Patient 09:00:18 CDT Gareth Cancino MD [facility]-09669 Level 3 Est. Patient 15:12:03 CDT Gareth Cancino MD [facility]-95806 Level 3 Est. Patient 23:08:20 CDT Gareth Cancino MD [facility]-95351 Level 4 Est. Patient 20:40:10 CDT Gareth Cancino MD [facility]-50886 Level 4 Est. Patient 19:50:11 CDT Gareth Cancino MD [facility]-84386 Level 3 Est. Patient 11:00:13 CDT Gareth Cancino MD [facility]-90289 Level 4 Est. Patient 11:20:21 CDT Gareth Cancino MD [facility]-16638 Level 4 Est. Patient 09:22:18 FIRE CAPTAIN Gareth Cancino MD [facility]-95491 Level 3 Est. Patient 09:48:04 CDT Gareth Cancino MD [facility] CPT-14457 Level 3 Est. Patient 10:13:16 CDT Gareth Cancino MD [facility] CPT-54069 Level 2 Est. Patient 18:36:56 CDT Gareth Cancino MD [facility]-59642 Level 4 Est. Patient 13:50:53 CDT Gareth Cancino MD [facility]-88975 Level 3 Est. Patient 14:58:33 FIRE CAPTAIN Gareth Cancino MD [facility]-43156 Level 4 Est. Patient 09:25:57 CDT Gareth Cancino MD [facility] CPT-06075 Level 3 Est. Patient 20:39:33 CDT Noman Edwards DO [facility] CPT-09565 Level 2 Est. Patient 13:17:39 CDT Gareth Cancino MD [facility] CPT-71449 Level 3 Est. Patient 13:37:20 CDT Gareth Cancino MD [facility] CPT-43622 Level 3 Est. Patient 18:09:08 CDT Gareth Cancino MD [facility] CPT-94701 Level 4 Est. Patient 09:59:07 CDT Gareth Cancino MD [facility] Procedures Code Procedure Name Date Entry Date Standard Description CPT-000 Give Appropriate Flu Vaccine 09:29:52 FIRE CAPTAIN CPT-000 Give Appropriate Flu Vaccine 09:22:20 FIRE CAPTAIN CPT-03539 TSH - LAB USE ONLY 08:11:40 FIRE CAPTAIN CPT-12887 Free T4 - LAB USE ONLY 08:11:40 FIRE CAPTAIN CPT-03956 Venipuncture Draw Fee 08:11:40 FIRE CAPTAIN CPT-39471 UA w micro - LAB USE ONLY 14:26:22 FIRE CAPTAIN CPT-G0438 Initial Annual Wellness Exam 20:53:25 FIRE CAPTAIN CPT-G0009 Administration of Pneumococcal Vaccine 11:42:53 FIRE CAPTAIN CPT-60618 Prevnar 13 Intramuscular Suspension 11:42:53 FIRE CAPTAIN 01/07 CPT-58923 First Vx - Ix admin for Medicare patients 11:39:44 FIRE CAPTAIN CPT-28134 Fluzone High-Dose Intramuscular Suspension 11:39:44 FIRE CAPTAIN CPT-69217 Prevnar 13 Intramuscular Suspension 09:29:52 FIRE CAPTAIN 01/07 CPT-30237 CMP - LAB USE ONLY 16:31:15 CDT CPT-92829 CBC - LAB USE ONLY 16:31:14 CDT CPT-54140 Venipuncture Draw Fee 16:31:14 CDT CPT-75742 BMP - LAB USE ONLY 14:37:27 CDT CPT-46703 CBC - LAB USE ONLY 14:37:27 CDT CPT-14995 Venipuncture Draw Fee 14:37:27 CDT CPT-TCMM Transitional Care Mgmt-Moderate 14:43:38 CDT CPT-80432 Venipuncture Draw Fee 10:33:47 CDT CPT-24653 BMP - LAB USE ONLY 10:33:46 CDT CPT-Cryo Cryotherapy 15:12:03 CDT CPT-22052 LS spine AP and Lat - XRAY USE ONLY 10:31:51 CDT 07/27 CPT-17922 Punch biopsy 1 lsn 20:40:09 CDT CPT-G0008 Administration of Influenza Virus Vaccine 10:04:48 FIRE CAPTAIN CPT-36844 Fluzone High-Dose Intramuscular Suspension 10:04:48 FIRE CAPTAIN CPT-35280 Ribs unilat w PA chst min 3V 10:45:40 CDT CPT-LR Lesion Removal 13:14:55 CDT CPT-Cryo Cryotherapy 13:14:55 CDT CPT-65518 Venipuncture Draw Fee 10:25:49 CDT CPT-47929 Administration single or combination vaccine inc oral 13 :22:14 FIRE CAPTAIN CPT-16840 Influenza High Dose age 65+ 13:22:14 FIRE CAPTAIN
--- OUTSIDE RECORDS SUMMARY | 2016-12-06 09:11 | XMS REPORT | Clinical Summary ---
Author Author Admin, HILARIA Organization [employer] Address Unknown Phone Unavailable Allergies, Adverse Reactions, [...] MD Unspecified chest pain Bronchitis-Acute 466.0 Inactive Garteh Cancino MD Acute bronchitis GERD 530.81 Active [...] Name NDC Status Provider Patient Instruction ZITHROMAX Z-RUBEN 250 MG TABS 2 today, then 1 daily for 4 days 2016 AZITHROMYCIN 58793683321 Active Tangela Forte Active FENTANYL 25 MCG/HR TRANS PT72 1 patch every 72 hours FENTANYL 17962409566 Active Mary Shah APRN Active PREDNISONE 20 MG TAB take 3 tabs daily for 3 days, 2 tabs daily for 3 days, 1 tab daily for 3 days, 1/2 tab daily for 4 days PREDNISONE 63398865421 No Longer Active Mary Shah APRN Active LEVAQUIN 500 MG TAB 1 tablet by mouth daily for 7 days LEVOFLOXACIN 15903543687 Active Mary Shah APRN Active AZITHROMYCIN 250 MG TABS 2 po qd x 1 day, then 1 po qd x 4 days AZITHROMYCIN 48271708816 No Longer Active Danuta Rian Active AZITHROMYCIN 250 MG TABS 2 po qd x 1 day, then 1 po qd x 4 days AZITHROMYCIN 59663673644 No Longer Active Tangela Forte Active HYDROCODONE-ACETAMINOPHEN 5-325 MG TABS 1 tab by mouth every 6 hours as needed for bck pain HYDROCODONE-ACETAMINOPHEN 07586762023 No Longer Active Gareth Cancino MD Active ALPRAZOLAM 0.25 MG TAB 1 tablet by mouth q hs prn ALPRAZOLAM 07064469238 Active Gareth Cancino MD Active AZITHROMYCIN 250 MG ORAL TABS 1 tab daily AZITHROMYCIN 17576906178 No Longer Active Gareth Cancino MD Active ZITHROMAX 250 MG TAB 2 po today, then 1 po q days 2-5 AZITHROMYCIN 72908291906 No Longer Active Tangela Forte Active IPRATROPIUM-ALBUTEROL 0.5-2.5 (3) MG/3ML INH SOLN nebulize 1 vial every 6hrs prn shortness of breath IPRATROPIUM-ALBUTEROL 71705239502 Active Gareth Cancino MD Active FENTANYL 25 MCG/HR PT72 Apply to clean, dry skin and change every 72 hours FENTANYL 36655197358 No Longer Active Gareth Cancino MD Active WELLBUTRIN SR 150 MG ORAL [id number] take 1 tab po BID BUPROPION HCL 37112908086 No Longer Active Gareth Cancino MD Active ZOFRAN 4 MG ORAL TABS 1 by mouth every 6 hours prn nausea ONDANSETRON HCL 66541032866 Active Tangela Forte Active TRAMADOL HCL 50 MG TABS 1 po tid PRN TRAMADOL HCL 02220522800 Active Gareth Cancino MD Active ALPRAZOLAM 0.25 MG TAB 1/2 to 1 tablet by mouth qhs prn ALPRAZOLAM 76076874073 No Longer Active Gareth Cancino MD Active CLOBETASOL PROPIONATE 0.05 % CREA apply to hand rash bid CLOBETASOL PROPIONATE 29043535434 No Longer Active Gareth Cancino MD Active BACTROBAN 2 % CREAM Apply to affected area BID MUPIROCIN CALCIUM 51253028957 No Longer Active Gareth Cancino MD Active LISINOPRIL 20 MG TABS 1 tablet by mouth daily for high blood pressure 10/14 LISINOPRIL 07729929199 Active Mary Shah APRN Active BACTRIM DS 800-160 MG TAB 1 tab by mouth twice daily TRIMETHOPRIM-SULFAMETHOXAZOLE 86361115384 No Longer Active Gareth Cancino MD Active METOPROLOL SUCCINATE ER 100 MG [id number] 1 pill by mouth daily, for blood pressure METOPROLOL SUCCINATE 51237702986 Active Mary Shah APRN Active KEFLEX 500 MG CAP 1 po TID x 10 days CEPHALEXIN 32819512771 No Longer Active Jillina Ginazellinda ESCAMILLA Active METOPROLOL SUCCINATE 50 MG TB24 1 tablet by mouth daily METOPROLOL SUCCINATE 57277913777 No Longer Active Gareth Cancino MD Active OMEPRAZOLE 20 MG TBEC Take one by mouth daily OMEPRAZOLE 15946289226 No Longer Active Gareth Cancino MD Active OMEPRAZOLE 40 MG CPDR 1 tab po qday for acid reflux. OMEPRAZOLE 22570086516 Active Mary Sahh APRN Active LEVAQUIN 500 MG TAB 1 tablet by mouth daily LEVOFLOXACIN 76350420843 No Longer Active Gareth Cancino MD Active ALEVE 220 MG TAB 2 tab po qd NAPROXEN SODIUM 23272338308 Active Gareth Cancino MD Active ASPIRIN 81 MG CHEW TAB 1 tablet by mouth daily ASPIRIN 44038602380 Active Gareth Cancino MD Active VENTOLIN HFA 108 (90 BASE) MCG/ACT AERS 1-2 puffs four times a day PRN shortness of breath ALBUTEROL SULFATE 35236387208 Active Mary Shah APRN Active CENTRUM SILVER TABS 1 TAB PO DAILY MULTIPLE VITAMINS-MINERALS 08369322551 Active Gareth Cancino MD Active VITAMIN B12 100 MCG TABS 1 TAB PO DAILY CYANOCOBALAMIN 48305642149 Active Gareth Cancino MD Active CIPRO 500 MG TABS 1 TAB PO BID CIPROFLOXACIN HCL 40345070428 No Longer Active Gareth Cancino MD Active BACTRIM DS 800-160 MG TAB 1 tab by mouth twice daily TRIMETHOPRIM-SULFAMETHOXAZOLE 73209412859 No Longer Active Gareth Cancino MD Active PREDNISONE 20 MG TAB 1 tab po BID for 3 days, then 1 tab po qday for 3 days PREDNISONE 97115307446 No Longer Active Gareth Cancino MD Active FOLIC ACID 800 MCG TABS Take one by mouth daily FOLIC ACID 97337663769 No Longer Active Gareth Cancino MD Active VITAMIN B-6 250 MG TABS Take one by mouth daily PYRIDOXINE HCL 26875363358 No Longer Active Gareth Cancino MD Active B-12 1000 MCG CAPS Take one by mouth daily CYANOCOBALAMIN 58603728615 No Longer Active Gareth Cancino MD Active DOXYCYCLINE HYCLATE 100 MG CAP 1 cap by mouth twice daily DOXYCYCLINE HYCLATE 29086352825 No Longer Active Gareth Cancino MD Active PREDNISONE 20 MG TAB 1 po bid 3 days, then 1 po q day 3 days 2011 PREDNISONE 73341291850 No Longer Active Gareth Cancino MD Active CHANTIX STARTING MONTH RUBEN 0.5 MG X 11 & 1 MG X 42 TABS 0.5mg daily for 3 days , then 0.5mg BID for 4 days, then 1mg BID VARENICLINE TARTRATE 75725442874 No Longer Active Gareth Cancino MD Active SIMVASTATIN 40 MG TABS Take one by mouth daily SIMVASTATIN 45024213935 Active Gareth Cancino MD Active TRIAMTERENE-HCTZ 37.5-25 MG CAPS Take one by mouth daily TRIAMTERENE- HCTZ 65631364869 Active Gareth Cancino MD Active CHANTIX STARTING [...] 3 days 2011 PREDNISONE 20 MG TAB 448252 PREDNISONE Inactive DOXYCYCLINE HYCLATE 100 MG CAP 1 cap by mouth twice daily DOXYCYCLINE HYCLATE 100 MG CAP 6133139 DOXYCYCLINE HYCLATE Inactive B-12 1000 MCG CAPS Take one by mouth daily B-12 1000 MCG CAPS CYANOCOBALAMIN Inactive VITAMIN B-6 250 MG TABS Take one by mouth daily VITAMIN B-6 250 MG TABS PYRIDOXINE HCL Inactive FOLIC ACID 800 MCG TABS Take one by mouth daily FOLIC ACID 800 MCG TABS 133561 FOLIC ACID Inactive CIPRO 500 MG TABS 1 TAB PO BID CIPRO 500 MG TABS 529298 CIPROFLOXACIN HCL Inactive OMEPRAZOLE 20 MG TBEC Take one by mouth daily OMEPRAZOLE 20 MG TBEC 414027 OMEPRAZOLE Inactive METOPROLOL SUCCINATE 50 MG TB24 1 tablet by mouth daily METOPROLOL SUCCINATE 50 MG TB24 METOPROLOL SUCCINATE Inactive BACTROBAN 2 % CREAM Apply to affected area BID BACTROBAN 2 % CREAM 426573 MUPIROCIN CALCIUM Inactive CLOBETASOL PROPIONATE 0.05 % CREA apply to hand rash bid CLOBETASOL PROPIONATE 0.05 % CREA 477675 CLOBETASOL PROPIONATE Inactive ALPRAZOLAM 0.25 MG TAB 1/2 to 1 tablet by mouth qhs prn ALPRAZOLAM 0.25 MG TAB 214663 ALPRAZOLAM Inactive WELLBUTRIN SR 150 MG ORAL [id number] take 1 tab po BID WELLBUTRIN SR 150 MG ORAL [id number] BUPROPION HCL Inactive AZITHROMYCIN 250 MG ORAL TABS 1 tab daily AZITHROMYCIN 250 MG ORAL TABS 1302721 AZITHROMYCIN Inactive HYDROCODONE-ACETAMINOPHEN 5-325 MG TABS 1 tab by mouth every 6 hours as needed for bck pain HYDROCODONE-ACETAMINOPHEN 5-325 MG TABS 488529 HYDROCODONE-ACETAMINOPHEN Inactive PREDNISONE 20 MG TAB 1 tab po BID for 3 days, then 1 tab po qday for 3 days PREDNISONE 20 MG TAB 837996 PREDNISONE Inactive BACTRIM DS 800-160 MG TAB 1 tab by mouth twice daily BACTRIM DS 800-160 MG TAB 786602 TRIMETHOPRIM-SULFAMETHOXAZOLE Inactive LEVAQUIN 500 MG TAB 1 tablet by mouth daily LEVAQUIN 500 MG TAB 611919 LEVOFLOXACIN Inactive KEFLEX 500 MG CAP 1 po TID x 10 days KEFLEX 500 MG CAP 230804 CEPHALEXIN Inactive BACTRIM DS 800-160 MG TAB 1 tab by mouth twice daily BACTRIM DS 800-160 MG TAB 19820425 TRIMETHOPRIM-SULFAMETHOXAZOLE Inactive FENTANYL 25 MCG/HR PT72 Apply to clean, dry skin and change every 72 hours FENTANYL 25 MCG/HR PT72 822436 FENTANYL Inactive ZITHROMAX 250 MG TAB 2 po today, then 1 po q days 2-5 ZITHROMAX 250 MG TAB 9891461 AZITHROMYCIN Inactive AZITHROMYCIN 250 MG TABS 2 po qd x 1 day, then 1 po qd x 4 days AZITHROMYCIN 250 MG TABS 5675781 AZITHROMYCIN Inactive AZITHROMYCIN 250 MG TABS 2 po qd x 1 day, then 1 po qd x 4 days AZITHROMYCIN 250 MG TABS 7419600 AZITHROMYCIN Inactive PREDNISONE 20 MG TAB take 3 tabs daily for 3 days, 2 tabs daily for 3 days, 1 tab daily for 3 days, 1/2 tab daily for 4 days PREDNISONE 20 MG TAB 498620 PREDNISONE Inactive Vital Signs Date Name Value [...] pressure, diastolic - 8462-4 88 mm[Hg] BP mcmaohn blood pressure, systolic - 8480-6 170 mm[Hg] [...] Panel - Chemistry sodium, serum 133 mmol/L 725-468 8491/08/24 potassium, serum 4.4 mmol/L 3.5-5.2 chloride, serum 95 mmol/L 98-107 carbon dioxide, venous blood 33.0 mmol/L 21.0-32.0 blood glucose 107 mg/dL 65-110 calcium, serum 8.8 mg/dL 8.5-10.1 urea nitrogen, blood 12 mg/dL 7-18 creatinine, serum 0.69 mg/dL 0.55-1.30 Lab Report: CBC, Basic Metabolic Panel - Chemistry sodium, serum 132 mmol/L 815-512 5161/10/12 potassium, serum 4.7 mmol/L 3.5-5.2 chloride, serum [...] CBC - Chemistry sodium, serum 136 mmol/L 750-550 3632/11/01 carbon dioxide, venous blood 32.1 mmol/L 21.0-32.0 [...] Negative Encounters Code Encounter Date Provider Facility CPT-54002 Level 3 Est. Patient 09:05:25 [employer] Mary Shah APRN [facility] CPT-49773 Level 3 Est. Patient 20:53:25 [employer]ACH[employer] Gareth Cancino MD [facility] CPT-26306 Level 3 Est. Patient 10:34:55 CDT Gareth Cancino MD [facility] CPT-79182 Level 4 Est. Patient 09:00:18 CDT Gareth Cancino MD [facility] CPT-89139 Level 3 Est. Patient 15:12:03 CDT Gareth Cancino MD [facility] CPT-95871 Level 3 Est. Patient 23:08:20 CDT Gareth Cancino MD [facility]-27906 Level 4 Est. Patient 20:40:10 CDT Gareth Cancino MD [facility]-23269 Level 4 Est. Patient 19:50:11 CDT Gareth Cancino MD [facility]-61667 Level 3 Est. Patient 11:00:13 CDT Gareth Cancino MD [facility]-13502 Level 4 Est. Patient 11:20:21 CDT Gareth Cancino MD [facility]-12069 Level 4 Est. 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 Patient 09:48:04 CDT Gareth Cancino MD [facility] CPT-32315 Level 3 Est. Patient 10:13:16 CDT Gareth Cancino MD [facility]-60428 Level 2 Est. Patient 18:36:56 CDT Gareth Cancino MD [facility] CPT-55487 Level 4 Est. Patient 13:50:53 CDT Gareth Cancino MD [facility]-00711 Level 3 Est. Patient 14:58:33 MACHINE [employer] Gareth Cancino MD [facility]-29345 Level 4 Est. Patient 09:25:57 CDT Gareth Cancino MD [facility]-41739 Level 3 Est. Patient 20:39:33 CDT Noman Edwards DO [facility] CPT-08959 Level 2 Est. Patient 13:17:39 CDT Gareth Cancino MD [facility] CPT-09753 Level 3 Est. Patient 13:37:20 CDT Gareth Cancino MD [facility] CPT-52331 Level 3 Est. Patient 18:09:08 CDT Gareth Cancino MD [facility] CPT-81547 Level 4 Est. Patient 09:59:07 CDT Gareth Cancino MD [facility] Procedures Code Procedure Name Date Entry Date Standard Description CPT-000 Give Appropriate Flu Vaccine 09:29:52 [employer] CPT-000 Give Appropriate Flu Vaccine 09:22:20 [employer] CPT-99386 TSH - LAB USE ONLY 08:11:40 [employer] CPT-19073 Free T4 - LAB USE ONLY 08:11:40 [employer]ACH[employer] CPT-41249 Venipuncture Draw Fee 08:11:40 [employer] CPT-22068 UA w micro - LAB USE ONLY 14:26:22 MACH[employer] CPT-G0438 Initial Annual Wellness Exam 20:53:25 MACHINE [employer] CPT-G0009 Administration of Pneumococcal Vaccine 11:42:53 [employer]ACH[employer] CPT-19222 Prevnar 13 Intramuscular Suspension 11:42:53 MACHINE [employer] 01/07 CPT-63357 First Vx - Ix admin for Medicare patients 11:39:44 MACHINE [employer] CPT-12904 Fluzone High-Dose Intramuscular Suspension 11:39:44 MACHINE [employer] CPT-94598 Prevnar 13 Intramuscular Suspension 09:29:52 MACHINE [employer]PER 01/07 CPT-56105 CMP - LAB USE ONLY 16:31:15 CDT CPT-55389 CBC - LAB USE ONLY 16:31:14 CDT CPT-71037 Venipuncture Draw Fee 16:31:14 CDT CPT-53448 BMP - LAB USE ONLY 14:37:27 CDT CPT-22027 CBC - LAB USE ONLY 14:37:27 CDT CPT-97602 Venipuncture Draw Fee 14:37:27 CDT CPT-TCMM Transitional Care Mgmt-Moderate 14:43:38 CDT CPT-70642 Venipuncture Draw Fee 10:33:47 CDT CPT-14827 BMP - LAB USE ONLY 10:33:46 CDT CPT-Cryo Cryotherapy 15:12:03 CDT CPT-42735 LS spine AP and Lat - XRAY USE ONLY 10:31:51 CDT 07/27 CPT-81567 Punch biopsy 1 lsn 20:40:09 CDT CPT-G0008 Administration of Influenza Virus Vaccine 10:04:48 [employer]ACH[employer] CPT-00561 Fluzone High-Dose Intramuscular Suspension 10:04:48 MACHINE [employer] CPT-95195 Ribs unilat w PA chst min 3V 10:45:40 CDT CPT-LR Lesion Removal 13:14:55 CDT CPT-Cryo Cryotherapy 13:14:55 CDT CPT-18188 Venipuncture Draw Fee 10:25:49 CDT CPT-46888 Administration single or combination vaccine inc oral 13 :22:14 MACHINE [employer] CPT-59379 Influenza High Dose age 65+ 13:22:14 MACHINE [employer]ER [employer]PER
--- OUTSIDE RECORDS SUMMARY | 2016-12-06 09:12 | XMS REPORT | Clinical Summary ---
Author Author Admin, HILARIA Organization [employer] Address Unknown Phone Unavailable Allergies, Adverse Reactions, [...] 1 GM ORAL PACK as directed AZITHROMYCIN 65350788062 Active Tangela Forte Active PIROXICAM 20 MG ORAL CAPS 1 po daily as needed for arthritis/pain PIROXICAM 82313511405 Active Gareth Cancino MD Active ZITHROMAX Z-RUBEN 250 MG TABS 2 today, then 1 daily for 4 days 2016 AZITHROMYCIN 20604200717 No Longer Active Tangelashar Forte Active FENTANYL 25 MCG/HR TRANS PT72 1 patch every 72 hours FENTANYL 79848948672 Active Mary Shah APRN Active PREDNISONE 20 MG TAB take 3 tabs daily for 3 days, 2 tabs daily for 3 days, 1 tab daily for 3 days, 1/2 tab daily for 4 days PREDNISONE 84143999690 No Longer Active Mary Shah APRN Active LEVAQUIN 500 MG TAB 1 tablet by mouth daily for 7 days LEVOFLOXACIN 32184807678 Active Mary Shah APRN Active AZITHROMYCIN 250 MG TABS 2 po qd x 1 day, then 1 po qd x 4 days AZITHROMYCIN 69554148904 No Longer Active Danuta Modi Active AZITHROMYCIN 250 MG TABS 2 po qd x 1 day, then 1 po qd x 4 days AZITHROMYCIN 41016652282 No Longer Active Tangela Forte Active HYDROCODONE-ACETAMINOPHEN 5-325 MG TABS 1 tab by mouth every 6 hours as needed for bck pain HYDROCODONE-ACETAMINOPHEN 08600288073 No Longer Active Gareth Cancino MD Active ALPRAZOLAM 0.25 MG TAB 1 tablet by mouth q hs prn ALPRAZOLAM 27140392108 Active Gareth Cancino MD Active AZITHROMYCIN 250 MG ORAL TABS 1 tab daily AZITHROMYCIN 36016104586 No Longer Active Gareth Cnacino MD Active ZITHROMAX 250 MG TAB 2 po today, then 1 po q days 2-5 AZITHROMYCIN 62138895104 No Longer Active Tangela Forte Active IPRATROPIUM-ALBUTEROL 0.5-2.5 (3) MG/3ML INH SOLN nebulize 1 vial every 6hrs prn shortness of breath IPRATROPIUM-ALBUTEROL 43538347540 Active Gareth Cancino MD Active FENTANYL 25 MCG/HR PT72 Apply to clean, dry skin and change every 72 hours FENTANYL 42831682335 No Longer Active Gareth Cancino MD Active WELLBUTRIN SR 150 MG ORAL [id number] take 1 tab po BID BUPROPION HCL 66893801996 No Longer Active Gareth Cancino MD Active ZOFRAN 4 MG ORAL TABS 1 by mouth every 6 hours prn nausea ONDANSETRON HCL 52570761381 Active Tangela Forte Active TRAMADOL HCL 50 MG TABS 1 po tid PRN TRAMADOL HCL 35187003515 Active Gareth Cancino MD Active ALPRAZOLAM 0.25 MG TAB 1/2 to 1 tablet by mouth qhs prn ALPRAZOLAM 28482817087 No Longer Active Gareth Cancino MD Active CLOBETASOL PROPIONATE 0.05 % CREA apply to hand rash bid CLOBETASOL PROPIONATE 87052276575 No Longer Active Gareth Cancino MD Active BACTROBAN 2 % CREAM Apply to affected area BID MUPIROCIN CALCIUM 64707644863 No Longer Active Gareth Cancino MD Active LISINOPRIL 20 MG TABS 1 tablet by mouth daily for high blood pressure 10/14 LISINOPRIL 93647493464 Active Gareth Cancino MD Active BACTRIM DS 800-160 MG TAB 1 tab by mouth twice daily TRIMETHOPRIM-SULFAMETHOXAZOLE 33218995856 No Longer Active Gareth Cancino MD Active METOPROLOL SUCCINATE ER 100 MG [id number] 1 pill by mouth daily, for blood pressure METOPROLOL SUCCINATE 83393247060 Active Gareth Cancino MD Active KEFLEX 500 MG CAP 1 po TID x 10 days CEPHALEXIN 07050474653 No Longer Active Blanca Castillo APRN Active METOPROLOL SUCCINATE 50 MG TB24 1 tablet by mouth daily METOPROLOL SUCCINATE 59509792290 No Longer Active Gareth Cancino MD Active OMEPRAZOLE 20 MG TBEC Take one by mouth daily OMEPRAZOLE 07659686210 No Longer Active Gareth Cancino MD Active OMEPRAZOLE 40 MG CPDR 1 tab po qday for acid reflux. OMEPRAZOLE 34060680606 Active Mary Shah APRN Active LEVAQUIN 500 MG TAB 1 tablet by mouth daily LEVOFLOXACIN 58131453302 No Longer Active Gareth Cancino MD Active ALEVE 220 MG TAB 2 tab po qd NAPROXEN SODIUM 33283518232 Active Gareth Cancino MD Active ASPIRIN 81 MG CHEW TAB 1 tablet by mouth daily ASPIRIN 96839892416 Active Gareth Cancino MD Active VENTOLIN HFA 108 (90 BASE) MCG/ACT AERS 1-2 puffs four times a day PRN shortness of breath ALBUTEROL SULFATE 61935696979 Active Mary Shah APRN Active CENTRUM SILVER TABS 1 TAB PO DAILY MULTIPLE VITAMINS-MINERALS 29941349137 Active Gareth Cancino MD Active VITAMIN B12 100 MCG TABS 1 TAB PO DAILY CYANOCOBALAMIN 25657219735 Active Gareth Cancino MD Active CIPRO 500 MG TABS 1 TAB PO BID CIPROFLOXACIN HCL 03663037315 No Longer Active Gareth Cancino MD Active BACTRIM DS 800-160 MG TAB 1 tab by mouth twice daily TRIMETHOPRIM-SULFAMETHOXAZOLE 07053180059 No Longer Active Gareth Cancino MD Active PREDNISONE 20 MG TAB 1 tab po BID for 3 days, then 1 tab po qday for 3 days PREDNISONE 79660020036 No Longer Active Gareth Cancino MD Active FOLIC ACID 800 MCG TABS Take one by mouth daily FOLIC ACID 08387613640 No Longer Active Gareth Cancino MD Active VITAMIN B-6 250 MG TABS Take one by mouth daily PYRIDOXINE HCL 37106408063 No Longer Active Gareth Cancino MD Active B-12 1000 MCG CAPS Take one by mouth daily CYANOCOBALAMIN 65247873078 No Longer Active Gareth Cancino MD Active DOXYCYCLINE HYCLATE 100 MG CAP 1 cap by mouth twice daily DOXYCYCLINE HYCLATE 14314426514 No Longer Active Gareth Cancino MD Active PREDNISONE 20 MG TAB 1 po bid 3 days, then 1 po q day 3 days 2011 PREDNISONE 94811668401 No Longer Active Gareth Cancino MD Active CHANTIX STARTING MONTH RUBEN 0.5 MG X 11 & 1 MG X 42 TABS 0.5mg daily for 3 days , then 0.5mg BID for 4 days, then 1mg BID VARENICLINE TARTRATE 16901038901 No Longer Active Gareth Cancino MD Active SIMVASTATIN 40 MG TABS Take one by mouth daily SIMVASTATIN 45075449865 Active Gareth Cancino MD Active TRIAMTERENE-HCTZ 37.5-25 MG CAPS Take one by mouth daily TRIAMTERENE- HCTZ 94991608283 Active Mary Shah APRN Active CHANTIX STARTING [...] 3 days 2011 PREDNISONE 20 MG TAB 363594 PREDNISONE Inactive DOXYCYCLINE HYCLATE 100 MG CAP 1 cap by mouth twice daily DOXYCYCLINE HYCLATE 100 MG CAP 4448132 DOXYCYCLINE HYCLATE Inactive B-12 1000 MCG CAPS Take one by mouth daily B-12 1000 MCG CAPS CYANOCOBALAMIN Inactive VITAMIN B-6 250 MG TABS Take one by mouth daily VITAMIN B-6 250 MG TABS PYRIDOXINE HCL Inactive FOLIC ACID 800 MCG TABS Take one by mouth daily FOLIC ACID 800 MCG TABS 905165 FOLIC ACID Inactive CIPRO 500 MG TABS 1 TAB PO BID CIPRO 500 MG TABS 866377 CIPROFLOXACIN HCL Inactive OMEPRAZOLE 20 MG TBEC Take one by mouth daily OMEPRAZOLE 20 MG TBEC 611364 OMEPRAZOLE Inactive METOPROLOL SUCCINATE 50 MG TB24 1 tablet by mouth daily METOPROLOL SUCCINATE 50 MG TB24 METOPROLOL SUCCINATE Inactive BACTROBAN 2 % CREAM Apply to affected area BID BACTROBAN 2 % CREAM 536978 MUPIROCIN CALCIUM Inactive CLOBETASOL PROPIONATE 0.05 % CREA apply to hand rash bid CLOBETASOL PROPIONATE 0.05 % CREA 062081 CLOBETASOL PROPIONATE Inactive ALPRAZOLAM 0.25 MG TAB 1/2 to 1 tablet by mouth qhs prn ALPRAZOLAM 0.25 MG TAB 549520 ALPRAZOLAM Inactive WELLBUTRIN SR 150 MG ORAL [id number] take 1 tab po BID WELLBUTRIN SR 150 MG ORAL [id number] BUPROPION HCL Inactive AZITHROMYCIN 250 MG ORAL TABS 1 tab daily AZITHROMYCIN 250 MG ORAL TABS 0259544 AZITHROMYCIN Inactive HYDROCODONE-ACETAMINOPHEN 5-325 MG TABS 1 tab by mouth every 6 hours as needed for bck pain HYDROCODONE-ACETAMINOPHEN 5-325 MG TABS 150942 HYDROCODONE-ACETAMINOPHEN Inactive PREDNISONE 20 MG TAB 1 tab po BID for 3 days, then 1 tab po qday for 3 days PREDNISONE 20 MG TAB 708131 PREDNISONE Inactive BACTRIM DS 800-160 MG TAB 1 tab by mouth twice daily BACTRIM DS 800-160 MG TAB 129245 TRIMETHOPRIM-SULFAMETHOXAZOLE Inactive LEVAQUIN 500 MG TAB 1 tablet by mouth daily LEVAQUIN 500 MG TAB 359253 LEVOFLOXACIN Inactive KEFLEX 500 MG CAP 1 po TID x 10 days KEFLEX 500 MG CAP 478198 CEPHALEXIN Inactive BACTRIM DS 800-160 MG TAB 1 tab by mouth twice daily BACTRIM DS 800-160 MG TAB 630941 TRIMETHOPRIM-SULFAMETHOXAZOLE Inactive FENTANYL 25 MCG/HR PT72 Apply to clean, dry skin and change every 72 hours FENTANYL 25 MCG/HR PT72 520691 FENTANYL Inactive ZITHROMAX 250 MG TAB 2 po today, then 1 po q days 2-5 ZITHROMAX 250 MG TAB 9287672 AZITHROMYCIN Inactive AZITHROMYCIN 250 MG TABS 2 po qd x 1 day, then 1 po qd x 4 days AZITHROMYCIN 250 MG TABS 0315156 AZITHROMYCIN Inactive AZITHROMYCIN 250 MG TABS 2 po qd x 1 day, then 1 po qd x 4 days AZITHROMYCIN 250 MG TABS 9406046 AZITHROMYCIN Inactive PREDNISONE 20 MG TAB take 3 tabs daily for 3 days, 2 tabs daily for 3 days, 1 tab daily for 3 days, 1/2 tab daily for 4 days PREDNISONE 20 MG TAB 719978 PREDNISONE Inactive ZITHROMAX Z-RUBEN 250 MG TABS 2 today, then 1 daily for 4 days 2016 ZITHROMAX Z-RUBEN 250 MG TABS 1685361 AZITHROMYCIN Inactive Vital Signs Date Name Value [...] Panel - Chemistry sodium, serum 133 mmol/L 677-715 2494/08/24 potassium, serum 4.4 mmol/L 3.5-5.2 chloride, serum 95 mmol/L 98-107 carbon dioxide, venous blood 33.0 mmol/L 21.0-32.0 blood glucose 107 mg/dL 65-110 calcium, serum 8.8 mg/dL 8.5-10.1 urea nitrogen, blood 12 mg/dL 7-18 creatinine, serum 0.69 mg/dL 0.55-1.30 Lab Report: CBC, Basic Metabolic Panel - Chemistry sodium, serum 132 mmol/L 290-134 8418/10/12 potassium, serum 4.7 mmol/L 3.5-5.2 chloride, serum [...] CBC - Chemistry sodium, serum 136 mmol/L 358-000 4560/11/01 carbon dioxide, venous blood 32.1 mmol/L 21.0-32.0 [...] PANEL - Chemistry cholesterol, serum 169 mg/dL 791-339 9268/05/09 HDL cholesterol, serum 54 mg/dL > OR=46 [...] mg/dL Encounters Code Encounter Date Provider Facility CPT-85921 Level 4 Est. Patient 07:23:02 CDT Gareth Cancino MD [facility] CPT-71576 Level 3 Est. Patient 09:05:25 PULLEY WORKER Mary Sahh APRN [facility] CPT-15993 Level 3 Est. Patient 20:53:25 PULLEY WORKER Gareth Cancino MD [facility] CPT-27880 Level 3 Est. Patient 10:34:55 CDT Gareth Cancino MD [facility] CPT-42307 Level 4 Est. Patient 09:00:18 CDT Gareth Cancino MD [facility] CPT-39076 Level 3 Est. Patient 15:12:03 CDT Gareth Cancino MD [facility] CPT-56364 Level 3 Est. Patient 23:08:20 CDT Gareth Cancino MD [facility] CPT-88709 Level 4 Est. Patient 20:40:10 CDT Gareth Cancino MD [facility] CPT-56202 Level 4 Est. Patient 19:50:11 CDT Gareth Cancino MD [facility] CPT-84932 Level 3 Est. Patient 11:00:13 CDT Gareth Cancino MD [facility] [place]-36729 Level 4 Est. Patient 11:20:21 CDT Gareth Cancino MD [facility] [place]-52125 Level 4 Est. Patient 09:22:18 PULLEY WORKER Gareth Cancino MD [facility] CPT-89161 Level 3 Est. Patient 09:48:04 CDT Gareth Cancino MD [facility] CPT-88055 Level 3 Est. Patient 10:13:16 CDT Gareth Cancino MD [facility] CPT-39906 Level 2 Est. Patient 18:36:56 CDT Gareth Cancino MD [facility] CPT-27882 Level 4 Est. Patient 13:50:53 CDT Gareth Cancino MD [facility] CPT-14762 Level 3 Est. Patient 14:58:33 PULLEY WORKER Gareth Cancino MD [facility] CPT-85169 Level 4 Est. Patient 09:25:57 CDT Gareth Cancino MD [facility] CPT-41051 Level 3 Est. Patient 20:39:33 CDT Noman Edwards DO [facility] CPT-23512 Level 2 Est. Patient 13:17:39 CDT Gareth Cancino MD [facility] CPT-66400 Level 3 Est. Patient 13:37:20 CDT Gareth Cancino MD [facility] CPT-00643 Level 3 Est. Patient 18:09:08 CDT Gareth Cancino MD [facility] CPT-37719 Level 4 Est. Patient 09:59:07 CDT Gareth Cancino MD [facility] Procedures Code Procedure Name Date Entry Date Standard Description CPT-000 Give Appropriate Flu Vaccine 09:29:52 PULLEY WORKER CPT-000 Give Appropriate Flu Vaccine 09:22:20 PULLEY WORKER CPT-75059 TSH - LAB USE ONLY 08:11:40 PULLEY WORKER CPT-98836 Free T4 - LAB USE ONLY 08:11:40 PULLEY WORKER CPT-14774 Venipuncture Draw Fee 08:11:40 PULLEY WORKER CPT-45827 UA w micro - LAB USE ONLY 14:26:22 PULLEY WORKER CPT-G0438 Initial Annual Wellness Exam 20:53:25 PULLEY WORKER CPT-G0009 Administration of Pneumococcal Vaccine 11:42:53 PULLEY WORKER CPT-01878 Prevnar 13 Intramuscular Suspension 11:42:53 PULLEY WORKER 01/07 CPT-19359 First Vx - Ix admin for Medicare patients 11:39:44 PULLEY WORKER CPT-29292 Fluzone High-Dose Intramuscular Suspension 11:39:44 PULLEY WORKER CPT-36867 Prevnar 13 Intramuscular Suspension 09:29:52 PULLEY WORKER 01/07 CPT-56118 CMP - LAB USE ONLY 16:31:15 CDT CPT-72338 CBC - LAB USE ONLY 16:31:14 CDT CPT-07169 Venipuncture Draw Fee 16:31:14 CDT CPT-48535 BMP - LAB USE ONLY 14:37:27 CDT CPT-65115 CBC - LAB USE ONLY 14:37:27 CDT CPT-76359 Venipuncture Draw Fee 14:37:27 CDT CPT-TCMM Transitional Care Mgmt-Moderate 14:43:38 CDT CPT-83587 Venipuncture Draw Fee 10:33:47 CDT CPT-18781 BMP - LAB USE ONLY 10:33:46 CDT CPT-Cryo Cryotherapy 15:12:03 CDT CPT-87703 LS spine AP and Lat - XRAY USE ONLY 10:31:51 CDT 07/27 CPT-98182 Punch biopsy 1 lsn 20:40:09 CDT CPT-G0008 Administration of Influenza Virus Vaccine 10:04:48 PULLEY WORKER CPT-93381 Fluzone High-Dose Intramuscular Suspension 10:04:48 PULLEY WORKER CPT-29705 Ribs unilat w PA chst min 3V 10:45:40 CDT CPT-LR Lesion Removal 13:14:55 CDT CPT-Cryo Cryotherapy 13:14:55 CDT CPT-15323 Venipuncture Draw Fee 10:25:49 CDT CPT-93548 Administration single or combination vaccine inc oral 13 :22:14 PULLEY WORKER CPT-04430 Influenza High Dose age 65+ 13:22:14 PULLEY WORKER
--- OUTSIDE RECORDS SUMMARY | 2016-12-06 09:14 | XMS REPORT | Clinical Summary ---
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 Urinary frequency Actinic keratosis 702.0 Active Gareth [...] every 6hrs prn shortness of breath IPRATROPIUM-ALBUTEROL 36212602444 Active Gareth Cancino MD Active FENTANYL 25 MCG/HR PT72 Apply to clean, dry skin and change every 72 hours FENTANYL 23498840107 Active Gareth Cancino MD Active AZITHROMYCIN 250 MG ORAL TABS 1 tab daily AZITHROMYCIN 78002644620 Active Gareth Cancino MD Active WELLBUTRIN SR 150 MG ORAL [id number] take 1 tab po BID BUPROPION HCL 60169033520 No Longer Active Gareth Cancino MD Active ZOFRAN 4 MG ORAL TABS 1 by mouth every 6 hours prn nausea ONDANSETRON HCL 37519449826 Active Tangela Forte Active TRAMADOL HCL 50 MG TABS 1 po tid PRN TRAMADOL HCL 43746005522 Active Danuta Modi Active HYDROCODONE-ACETAMINOPHEN 5-325 MG TABS 1 tab by mouth every 6 hours as needed for bck pain HYDROCODONE-ACETAMINOPHEN 93182258210 Active Gareth Cancino MD Active ALPRAZOLAM 0.25 MG TAB 1/2 to 1 tablet by mouth qhs prn ALPRAZOLAM 10207305694 No Longer Active Gareth Cancino MD Active CLOBETASOL PROPIONATE 0.05 % CREA apply to hand rash bid CLOBETASOL PROPIONATE 12753426873 No Longer Active Gareth Cancino MD Active BACTROBAN 2 % CREAM Apply to affected area BID MUPIROCIN CALCIUM 21728907149 No Longer Active Gareth Cancino MD Active LISINOPRIL 20 MG TABS 1 tablet by mouth daily for high blood pressure 10/14 LISINOPRIL 02667660971 Active Gareth Cancino MD Active BACTRIM DS 800-160 MG TAB 1 tab by mouth twice daily TRIMETHOPRIM-SULFAMETHOXAZOLE 00194417323 No Longer Active Gareth Cancino MD Active METOPROLOL SUCCINATE ER 100 MG [id number] 1 pill by mouth daily, for blood pressure METOPROLOL SUCCINATE 85329364454 Active Gareth Cancino MD Active KEFLEX 500 MG CAP 1 po TID x 10 days CEPHALEXIN 72843685471 No Longer Active Blanca Castillo APRN Active METOPROLOL SUCCINATE 50 MG TB24 1 tablet by mouth daily METOPROLOL SUCCINATE 94983717077 No Longer Active Gareth Cancino MD Active OMEPRAZOLE 20 MG TBEC Take one by mouth daily OMEPRAZOLE 91221989273 No Longer Active Gareth Cancino MD Active OMEPRAZOLE 40 MG CPDR 1 tab po qday for acid reflux. OMEPRAZOLE 05551951168 Active Mary Shah APRN Active LEVAQUIN 500 MG TAB 1 tablet by mouth daily LEVOFLOXACIN 35748036946 No Longer Active Gareth Cancino MD Active ALEVE 220 MG TAB 2 tab po qd NAPROXEN SODIUM 55516676756 Active Gareth Cancino MD Active ASPIRIN 81 MG CHEW TAB 1 tablet by mouth daily ASPIRIN 84907951480 Active Gareth Cancino MD Active VENTOLIN HFA 108 (90 BASE) MCG/ACT AERS 1-2 puffs four times a day PRN shortness of breath ALBUTEROL SULFATE 40447916359 Active Mary Shah APRN Active CENTRUM SILVER TABS 1 TAB PO DAILY MULTIPLE VITAMINS-MINERALS 69000607535 Active Gareth Cancino MD Active VITAMIN B12 100 MCG TABS 1 TAB PO DAILY CYANOCOBALAMIN 14752892480 Active Gareth Cancino MD Active CIPRO 500 MG TABS 1 TAB PO BID CIPROFLOXACIN HCL 25586194177 No Longer Active Gareth Cancino MD Active BACTRIM DS 800-160 MG TAB 1 tab by mouth twice daily TRIMETHOPRIM-SULFAMETHOXAZOLE 65925366369 No Longer Active Gareth Cancino MD Active PREDNISONE 20 MG TAB 1 tab po BID for 3 days, then 1 tab po qday for 3 days PREDNISONE 90334016113 No Longer Active Gareth Cancino MD Active FOLIC ACID 800 MCG TABS Take one by mouth daily FOLIC ACID 48455249046 No Longer Active Gareth Cancino MD Active VITAMIN B-6 250 MG TABS Take one by mouth daily PYRIDOXINE HCL 79596976263 No Longer Active Gareth Cancino MD Active B-12 1000 MCG CAPS Take one by mouth daily CYANOCOBALAMIN 27084550831 No Longer Active Gareth Cancino MD Active DOXYCYCLINE HYCLATE 100 MG CAP 1 cap by mouth twice daily DOXYCYCLINE HYCLATE 80074199963 No Longer Active Gareth Cancino MD Active PREDNISONE 20 MG TAB 1 po bid 3 days, then 1 po q day 3 days 2011 PREDNISONE 24277015933 No Longer Active Gareth Cancino MD Active CHANTIX STARTING MONTH RUBEN 0.5 MG X 11 & 1 MG X 42 TABS 0.5mg daily for 3 days , then 0.5mg BID for 4 days, then 1mg BID VARENICLINE TARTRATE 10574719674 No Longer Active Gareth Cancino MD Active SIMVASTATIN 40 MG TABS Take one by mouth daily SIMVASTATIN 91715180674 Active Gareth Cancino MD Active TRIAMTERENE-HCTZ 37.5-25 MG CAPS Take one by mouth daily TRIAMTERENE- HCTZ 49338439834 Active Gareth Cancino MD Active CHANTIX STARTING [...] 3 days 2011 PREDNISONE 20 MG TAB 954643 PREDNISONE Inactive DOXYCYCLINE HYCLATE 100 MG CAP 1 cap by mouth twice daily DOXYCYCLINE HYCLATE 100 MG CAP 4757398 DOXYCYCLINE HYCLATE Inactive B-12 1000 MCG CAPS Take one by mouth daily B-12 1000 MCG CAPS CYANOCOBALAMIN Inactive VITAMIN B-6 250 MG TABS Take one by mouth daily VITAMIN B-6 250 MG TABS PYRIDOXINE HCL Inactive FOLIC ACID 800 MCG TABS Take one by mouth daily FOLIC ACID 800 MCG TABS 923534 FOLIC ACID Inactive CIPRO 500 MG TABS 1 TAB PO BID CIPRO 500 MG TABS 862767 CIPROFLOXACIN HCL Inactive OMEPRAZOLE 20 MG TBEC Take one by mouth daily OMEPRAZOLE 20 MG TBEC 204409 OMEPRAZOLE Inactive METOPROLOL SUCCINATE 50 MG TB24 1 tablet by mouth daily METOPROLOL SUCCINATE 50 MG TB24 METOPROLOL SUCCINATE Inactive BACTROBAN 2 % CREAM Apply to affected area BID BACTROBAN 2 % CREAM 883164 MUPIROCIN CALCIUM Inactive CLOBETASOL PROPIONATE 0.05 % CREA apply to hand rash bid CLOBETASOL PROPIONATE 0.05 % CREA 847135 CLOBETASOL PROPIONATE Inactive ALPRAZOLAM 0.25 MG TAB 1/2 to 1 tablet by mouth qhs prn ALPRAZOLAM 0.25 MG TAB 488055 ALPRAZOLAM Inactive WELLBUTRIN SR 150 MG ORAL [id number]-IWO take 1 tab po BID WELLBUTRIN SR 150 MG ORAL [id number] BUPROPION HCL Inactive PREDNISONE 20 MG TAB 1 tab po BID for 3 days, then 1 tab po qday for 3 days PREDNISONE 20 MG TAB 602345 PREDNISONE Inactive BACTRIM DS 800-160 MG TAB 1 tab by mouth twice daily BACTRIM DS 800-160 MG TAB 729526 TRIMETHOPRIM-SULFAMETHOXAZOLE Inactive LEVAQUIN 500 MG TAB 1 tablet by mouth daily LEVAQUIN 500 MG TAB 456691 LEVOFLOXACIN Inactive KEFLEX 500 MG CAP 1 po TID x 10 days KEFLEX 500 MG CAP 386726 CEPHALEXIN Inactive BACTRIM DS 800-160 MG TAB 1 tab by mouth twice daily BACTRIM DS 800-160 MG TAB 249216 TRIMETHOPRIM-SULFAMETHOXAZOLE Inactive Vital Signs Date Name Value [...] Panel - Chemistry sodium, serum 133 mmol/L 211-432 7070/08/24 potassium, serum 4.4 mmol/L 3.5-5.2 chloride, serum 95 mmol/L 98-107 carbon dioxide, venous blood 33.0 mmol/L 21.0-32.0 blood glucose 107 mg/dL 65-110 calcium, serum 8.8 mg/dL 8.5-10.1 urea nitrogen, blood 12 mg/dL 7-18 creatinine, serum 0.69 mg/dL 0.55-1.30 Lab Report: CBC, Basic Metabolic Panel - Chemistry sodium, serum 132 mmol/L 443-914 2390/10/12 potassium, serum 4.7 mmol/L 3.5-5.2 chloride, serum [...] ... - Chemistry cholesterol, serum 195 mg/dL 427-212 8689/12/02 triglyceride, serum, fasting 74 mg/dL 30-200 HDL cholesterol, serum 52 mg/dL 32-96 LDL cholesterol, serum 128 mg/dL 0-130 sodium, serum 134 mmol/L 573-981 9621/12/02 carbon dioxide, venous blood 30.3 mmol/L 21.0-32.0 [...] 5.0-8.5 Encounters Code Encounter Date Provider Facility CPT-33291 Level 4 Est. Patient 09:00:18 CDT Gareth Cancino MD [facility]-10107 Level 3 Est. Patient 15:12:03 CDT Gareth Cancino MD [facility] CPT-58841 Level 3 Est. Patient 23:08:20 CDT Gareth Cancino MD [facility]-69703 Level 4 Est. Patient 20:40:10 CDT Gareth Cancino MD [facility]-09894 Level 4 Est. Patient 19:50:11 CDT Gareth Cancino MD [facility] CPT-55204 Level 3 Est. Patient 11:00:13 CDT Gareth Cancino MD [facility]-10047 Level 4 Est. Patient 11:20:21 CDT Gareth Cancino MD [facility]-39410 Level 4 Est. Patient 09:22:18 DELIVERY REPRESENTATIVE Gareth Cancino MD [facility] CPT-21565 Level 3 Est. Patient 09:48:04 CDT Gareth Cancino MD [facility]-71451 Level 3 Est. Patient 10:13:16 CDT Gareth Cancino MD [facility] CPT-90972 Level 2 Est. Patient 18:36:56 CDT Gareth Cancino MD [facility] CPT-26056 Level 4 Est. Patient 13:50:53 CDT Gareth Cancino MD [facility] CPT-89815 Level 3 Est. Patient 14:58:33 DELIVERY REPRESENTATIVE Gareth Cancino MD [facility]-99401 Level 4 Est. Patient 09:25:57 CDT Gareth Cancino MD [facility]-23957 Level 3 Est. Patient 20:39:33 CDT Noman Edwards DO [facility] CPT-05557 Level 2 Est. Patient 13:17:39 CDT Gareth Cancino MD [facility] CPT-36498 Level 3 Est. Patient 13:37:20 CDT Gareth Cancino MD [facility] CPT-79509 Level 3 Est. Patient 18:09:08 CDT Gareth Cancino MD [facility] CPT-49333 Level 4 Est. Patient 09:59:07 CDT Gareth Cancino MD [facility] Procedures Code Procedure Name Date Entry Date Standard Description CPT-92641 BMP - LAB USE ONLY 14:37:27 CDT CPT-42802 CBC - LAB USE ONLY 14:37:27 CDT CPT-12671 Venipuncture Draw Fee 14:37:27 CDT CPT-TCMM Transitional Care Mgmt-Moderate 14:43:38 CDT CPT-07003 Venipuncture Draw Fee 10:33:47 CDT CPT-68119 BMP - LAB USE ONLY 10:33:46 CDT CPT-Cryo Cryotherapy 15:12:03 CDT CPT-61740 LS spine AP and Lat - XRAY USE ONLY 10:31:51 CDT 07/27 CPT-24755 Punch biopsy 1 lsn 20:40:09 CDT CPT-G0008 Administration of Influenza Virus Vaccine 10:04:48 DELIVERY REPRESENTATIVE CPT-50313 Fluzone High-Dose Intramuscular Suspension 10:04:48 DELIVERY REPRESENTATIVE CPT-91086 Ribs unilat w PA chst min 3V 10:45:40 CDT CPT-LR Lesion Removal 13:14:55 CDT CPT-Cryo Cryotherapy 13:14:55 CDT CPT-88403 Venipuncture Draw Fee 10:25:49 CDT CPT-70298 Administration single or combination vaccine inc oral 13 :22:14 DELIVERY REPRESENTATIVE CPT-29684 Influenza High Dose age 65+ 13:22:14 DELIVERY REPRESENTATIVE
--- OUTSIDE RECORDS SUMMARY | 2016-12-06 09:14 | XMS REPORT | Clinical Summary ---
Author Author Admin, HILARIA Organization [employer] Address Unknown Phone Unavailable Allergies, Adverse Reactions, [...] 1 GM ORAL PACK as directed AZITHROMYCIN 75783385801 Active Tangela Forte Active PIROXICAM 20 MG ORAL CAPS 1 po daily as needed for arthritis/pain PIROXICAM 90447023403 Active Gareth Cancino MD Active ZITHROMAX Z-RUBEN 250 MG TABS 2 today, then 1 daily for 4 days 2016 AZITHROMYCIN 31525117431 No Longer Active Tangelashar Forte Active FENTANYL 25 MCG/HR TRANS PT72 1 patch every 72 hours FENTANYL 06791836783 Active Mary Shah APRN Active PREDNISONE 20 MG TAB take 3 tabs daily for 3 days, 2 tabs daily for 3 days, 1 tab daily for 3 days, 1/2 tab daily for 4 days PREDNISONE 36532910040 No Longer Active Mary Shah APRN Active LEVAQUIN 500 MG TAB 1 tablet by mouth daily for 7 days LEVOFLOXACIN 00073780351 Active Mary Shah APRN Active AZITHROMYCIN 250 MG TABS 2 po qd x 1 day, then 1 po qd x 4 days AZITHROMYCIN 14524658128 No Longer Active Danuta Modi Active AZITHROMYCIN 250 MG TABS 2 po qd x 1 day, then 1 po qd x 4 days AZITHROMYCIN 77543938406 No Longer Active Tangela Forte Active HYDROCODONE-ACETAMINOPHEN 5-325 MG TABS 1 tab by mouth every 6 hours as needed for bck pain HYDROCODONE-ACETAMINOPHEN 96654746134 No Longer Active Gareth Cancino MD Active ALPRAZOLAM 0.25 MG TAB 1 tablet by mouth q hs prn ALPRAZOLAM 55114828132 Active Gareth Cancino MD Active AZITHROMYCIN 250 MG ORAL TABS 1 tab daily AZITHROMYCIN 41075441573 No Longer Active Gareth Cancino MD Active ZITHROMAX 250 MG TAB 2 po today, then 1 po q days 2-5 AZITHROMYCIN 71803653318 No Longer Active Tangela Forte Active IPRATROPIUM-ALBUTEROL 0.5-2.5 (3) MG/3ML INH SOLN nebulize 1 vial every 6hrs prn shortness of breath IPRATROPIUM-ALBUTEROL 08660102816 Active Gareth Cancino MD Active FENTANYL 25 MCG/HR PT72 Apply to clean, dry skin and change every 72 hours FENTANYL 91776719007 No Longer Active Gareth Cancino MD Active WELLBUTRIN SR 150 MG ORAL [id number] take 1 tab po BID BUPROPION HCL 50962454509 No Longer Active Gareth Cancino MD Active ZOFRAN 4 MG ORAL TABS 1 by mouth every 6 hours prn nausea ONDANSETRON HCL 32823954403 Active Tangela Forte Active TRAMADOL HCL 50 MG TABS 1 po tid PRN TRAMADOL HCL 69106177852 Active Gareth Cancino MD Active ALPRAZOLAM 0.25 MG TAB 1/2 to 1 tablet by mouth qhs prn ALPRAZOLAM 19761638670 No Longer Active Gareth Cancino MD Active CLOBETASOL PROPIONATE 0.05 % CREA apply to hand rash bid CLOBETASOL PROPIONATE 22213377920 No Longer Active Gareth Cancino MD Active BACTROBAN 2 % CREAM Apply to affected area BID MUPIROCIN CALCIUM 27429555199 No Longer Active Gareth Cancino MD Active LISINOPRIL 20 MG TABS 1 tablet by mouth daily for high blood pressure 10/14 LISINOPRIL 80488545749 Active Gareth Cancino MD Active BACTRIM DS 800-160 MG TAB 1 tab by mouth twice daily TRIMETHOPRIM-SULFAMETHOXAZOLE 91383120760 No Longer Active Gareth Cancino MD Active METOPROLOL SUCCINATE ER 100 MG [id number] 1 pill by mouth daily, for blood pressure METOPROLOL SUCCINATE 70650334227 Active Gareth Cancino MD Active KEFLEX 500 MG CAP 1 po TID x 10 days CEPHALEXIN 69332134613 No Longer Active Blanca Castillo APRN Active METOPROLOL SUCCINATE 50 MG TB24 1 tablet by mouth daily METOPROLOL SUCCINATE 30460338405 No Longer Active Gareth Cancino MD Active OMEPRAZOLE 20 MG TBEC Take one by mouth daily OMEPRAZOLE 00360540996 No Longer Active Gareth Cancino MD Active OMEPRAZOLE 40 MG CPDR 1 tab po qday for acid reflux. OMEPRAZOLE 76662242582 Active Mary Shah APRN Active LEVAQUIN 500 MG TAB 1 tablet by mouth daily LEVOFLOXACIN 63535711884 No Longer Active Gareth Cancino MD Active ALEVE 220 MG TAB 2 tab po qd NAPROXEN SODIUM 14239949389 Active Gareth Cancino MD Active ASPIRIN 81 MG CHEW TAB 1 tablet by mouth daily ASPIRIN 22656398997 Active Gareth Cancino MD Active VENTOLIN HFA 108 (90 BASE) MCG/ACT AERS 1-2 puffs four times a day PRN shortness of breath ALBUTEROL SULFATE 07172185660 Active Mary Shah APRN Active CENTRUM SILVER TABS 1 TAB PO DAILY MULTIPLE VITAMINS-MINERALS 87981377193 Active Gareth Cancino MD Active VITAMIN B12 100 MCG TABS 1 TAB PO DAILY CYANOCOBALAMIN 14550666282 Active Gareth Cancino MD Active CIPRO 500 MG TABS 1 TAB PO BID CIPROFLOXACIN HCL 82464536901 No Longer Active Gareth Cancino MD Active BACTRIM DS 800-160 MG TAB 1 tab by mouth twice daily TRIMETHOPRIM-SULFAMETHOXAZOLE 86637280201 No Longer Active Gareth Cancino MD Active PREDNISONE 20 MG TAB 1 tab po BID for 3 days, then 1 tab po qday for 3 days PREDNISONE 60707655085 No Longer Active Gareth Cancino MD Active FOLIC ACID 800 MCG TABS Take one by mouth daily FOLIC ACID 41881358867 No Longer Active Gareth Cancino MD Active VITAMIN B-6 250 MG TABS Take one by mouth daily PYRIDOXINE HCL 72619621017 No Longer Active Gareth Cancino MD Active B-12 1000 MCG CAPS Take one by mouth daily CYANOCOBALAMIN 74755331911 No Longer Active Gareth Cancino MD Active DOXYCYCLINE HYCLATE 100 MG CAP 1 cap by mouth twice daily DOXYCYCLINE HYCLATE 50682616891 No Longer Active Gareth Cancino MD Active PREDNISONE 20 MG TAB 1 po bid 3 days, then 1 po q day 3 days 2011 PREDNISONE 58929562420 No Longer Active Gareth Cancino MD Active CHANTIX STARTING MONTH RUBEN 0.5 MG X 11 & 1 MG X 42 TABS 0.5mg daily for 3 days , then 0.5mg BID for 4 days, then 1mg BID VARENICLINE TARTRATE 22651760894 No Longer Active Gareth Cancino MD Active SIMVASTATIN 40 MG TABS Take one by mouth daily SIMVASTATIN 18772080243 Active Gareth Cancino MD Active TRIAMTERENE-HCTZ 37.5-25 MG CAPS Take one by mouth daily TRIAMTERENE- HCTZ 72320104597 Active Mary Shah APRN Active CHANTIX STARTING [...] 3 days 2011 PREDNISONE 20 MG TAB 204034 PREDNISONE Inactive DOXYCYCLINE HYCLATE 100 MG CAP 1 cap by mouth twice daily DOXYCYCLINE HYCLATE 100 MG CAP 1027271 DOXYCYCLINE HYCLATE Inactive B-12 1000 MCG CAPS Take one by mouth daily B-12 1000 MCG CAPS CYANOCOBALAMIN Inactive VITAMIN B-6 250 MG TABS Take one by mouth daily VITAMIN B-6 250 MG TABS PYRIDOXINE HCL Inactive FOLIC ACID 800 MCG TABS Take one by mouth daily FOLIC ACID 800 MCG TABS 020341 FOLIC ACID Inactive CIPRO 500 MG TABS 1 TAB PO BID CIPRO 500 MG TABS 246427 CIPROFLOXACIN HCL Inactive OMEPRAZOLE 20 MG TBEC Take one by mouth daily OMEPRAZOLE 20 MG TBEC 464589 OMEPRAZOLE Inactive METOPROLOL SUCCINATE 50 MG TB24 1 tablet by mouth daily METOPROLOL SUCCINATE 50 MG TB24 METOPROLOL SUCCINATE Inactive BACTROBAN 2 % CREAM Apply to affected area BID BACTROBAN 2 % CREAM 425414 MUPIROCIN CALCIUM Inactive CLOBETASOL PROPIONATE 0.05 % CREA apply to hand rash bid CLOBETASOL PROPIONATE 0.05 % CREA 182987 CLOBETASOL PROPIONATE Inactive ALPRAZOLAM 0.25 MG TAB 1/2 to 1 tablet by mouth qhs prn ALPRAZOLAM 0.25 MG TAB 475050 ALPRAZOLAM Inactive WELLBUTRIN SR 150 MG ORAL [id number] take 1 tab po BID WELLBUTRIN SR 150 MG ORAL [id number] BUPROPION HCL Inactive AZITHROMYCIN 250 MG ORAL TABS 1 tab daily AZITHROMYCIN 250 MG ORAL TABS 0025824 AZITHROMYCIN Inactive HYDROCODONE-ACETAMINOPHEN 5-325 MG TABS 1 tab by mouth every 6 hours as needed for bck pain HYDROCODONE-ACETAMINOPHEN 5-325 MG TABS 544730 HYDROCODONE-ACETAMINOPHEN Inactive PREDNISONE 20 MG TAB 1 tab po BID for 3 days, then 1 tab po qday for 3 days PREDNISONE 20 MG TAB 541564 PREDNISONE Inactive BACTRIM DS 800-160 MG TAB 1 tab by mouth twice daily BACTRIM DS 800-160 MG TAB 795357 TRIMETHOPRIM-SULFAMETHOXAZOLE Inactive LEVAQUIN 500 MG TAB 1 tablet by mouth daily LEVAQUIN 500 MG TAB 676231 LEVOFLOXACIN Inactive KEFLEX 500 MG CAP 1 po TID x 10 days KEFLEX 500 MG CAP 890827 CEPHALEXIN Inactive BACTRIM DS 800-160 MG TAB 1 tab by mouth twice daily BACTRIM DS 800-160 MG TAB 948360 TRIMETHOPRIM-SULFAMETHOXAZOLE Inactive FENTANYL 25 MCG/HR PT72 Apply to clean, dry skin and change every 72 hours FENTANYL 25 MCG/HR PT72 878410 FENTANYL Inactive ZITHROMAX 250 MG TAB 2 po today, then 1 po q days 2-5 ZITHROMAX 250 MG TAB 4534267 AZITHROMYCIN Inactive AZITHROMYCIN 250 MG TABS 2 po qd x 1 day, then 1 po qd x 4 days AZITHROMYCIN 250 MG TABS 1650570 AZITHROMYCIN Inactive AZITHROMYCIN 250 MG TABS 2 po qd x 1 day, then 1 po qd x 4 days AZITHROMYCIN 250 MG TABS 0104946 AZITHROMYCIN Inactive PREDNISONE 20 MG TAB take 3 tabs daily for 3 days, 2 tabs daily for 3 days, 1 tab daily for 3 days, 1/2 tab daily for 4 days PREDNISONE 20 MG TAB 853908 PREDNISONE Inactive ZITHROMAX Z-RUBEN 250 MG TABS 2 today, then 1 daily for 4 days 2016 ZITHROMAX Z-RUBEN 250 MG TABS 0943821 AZITHROMYCIN Inactive Vital Signs Date Name Value [...] Panel - Chemistry sodium, serum 133 mmol/L 367-738 7648/08/24 potassium, serum 4.4 mmol/L 3.5-5.2 chloride, serum 95 mmol/L 98-107 carbon dioxide, venous blood 33.0 mmol/L 21.0-32.0 blood glucose 107 mg/dL 65-110 calcium, serum 8.8 mg/dL 8.5-10.1 urea nitrogen, blood 12 mg/dL 7-18 creatinine, serum 0.69 mg/dL 0.55-1.30 Lab Report: CBC, Basic Metabolic Panel - Chemistry sodium, serum 132 mmol/L 262-440 2806/10/12 potassium, serum 4.7 mmol/L 3.5-5.2 chloride, serum [...] CBC - Chemistry sodium, serum 136 mmol/L 957-183 3499/11/01 carbon dioxide, venous blood 32.1 mmol/L 21.0-32.0 [...] PANEL - Chemistry cholesterol, serum 169 mg/dL 803-661 7772/05/09 HDL cholesterol, serum 54 mg/dL > OR=46 [...] mg/dL Encounters Code Encounter Date Provider Facility CPT-80391 Level 4 Est. Patient 07:23:02 CDT Gareth Cancino MD [facility] CPT-10301 Level 3 Est. Patient 09:05:25 REFLOW OPERATOR Mary Shah APRN [facility] CPT-64369 Level 3 Est. Patient 20:53:25 REFLOW OPERATOR Gareth Cancino MD [facility] CPT-61416 Level 3 Est. Patient 10:34:55 CDT Gareth Cancino MD [facility] CPT-23093 Level 4 Est. Patient 09:00:18 CDT Gareth Cancino MD [facility] CPT-50462 Level 3 Est. Patient 15:12:03 CDT Gareth Cancino MD [facility] CPT-00132 Level 3 Est. Patient 23:08:20 CDT Gareth Cancino MD [facility] CPT-62018 Level 4 Est. Patient 20:40:10 CDT Gareth Cancino MD [facility] CPT-50114 Level 4 Est. Patient 19:50:11 CDT Gareth Cancino MD [facility] CPT-04823 Level 3 Est. Patient 11:00:13 CDT Gareth Cancino MD [facility] CPT-31908 Level 4 Est. Patient 11:20:21 CDT Gareth Cancino MD [facility] CPT-30169 Level 4 Est. Patient 09:22:18 REFLOW OPERATOR Gareth Cancino MD [facility] CPT-83958 Level 3 Est. Patient 09:48:04 CDT Gareth Cancino MD [facility] CPT-60362 Level 3 Est. Patient 10:13:16 CDT Gareth Cancino MD [facility] CPT-15797 Level 2 Est. Patient 18:36:56 CDT Gareth Cancino MD [facility] CPT-62328 Level 4 Est. Patient 13:50:53 CDT Gareth Cancino MD [facility] CPT-10322 Level 3 Est. Patient 14:58:33 REFLOW OPERATOR Gareth Cancino MD [facility] CPT-38623 Level 4 Est. Patient 09:25:57 CDT Gareth Cancino MD [facility] CPT-89108 Level 3 Est. Patient 20:39:33 CDT Noman Edwards DO [facility] CPT-85252 Level 2 Est. Patient 13:17:39 CDT Gareth Cancino MD [facility] CPT-57304 Level 3 Est. Patient 13:37:20 CDT Gareth Cancino MD [facility] CPT-44878 Level 3 Est. Patient 18:09:08 CDT Gareth Cancino MD [facility] CPT-85803 Level 4 Est. Patient 09:59:07 CDT Gareth Cancino MD [facility] Procedures Code Procedure Name Date Entry Date Standard Description CPT-000 Give Appropriate Flu Vaccine 09:29:52 REFLOW OPERATOR CPT-000 Give Appropriate Flu Vaccine 09:22:20 REFLOW OPERATOR CPT-78920 TSH - LAB USE ONLY 08:11:40 REFLOW OPERATOR CPT-33355 Free T4 - LAB USE ONLY 08:11:40 REFLOW OPERATOR CPT-03316 Venipuncture Draw Fee 08:11:40 REFLOW OPERATOR CPT-47887 UA w micro - LAB USE ONLY 14:26:22 REFLOW OPERATOR CPT-G0438 Initial Annual Wellness Exam 20:53:25 REFLOW OPERATOR CPT-G0009 Administration of Pneumococcal Vaccine 11:42:53 REFLOW OPERATOR CPT-95407 Prevnar 13 Intramuscular Suspension 11:42:53 REFLOW OPERATOR 01/07 CPT-73775 First Vx - Ix admin for Medicare patients 11:39:44 REFLOW OPERATOR CPT-82050 Fluzone High-Dose Intramuscular Suspension 11:39:44 REFLOW OPERATOR CPT-24956 Prevnar 13 Intramuscular Suspension 09:29:52 REFLOW OPERATOR 01/07 CPT-07602 CMP - LAB USE ONLY 16:31:15 CDT CPT-57460 CBC - LAB USE ONLY 16:31:14 CDT CPT-72128 Venipuncture Draw Fee 16:31:14 CDT CPT-25404 BMP - LAB USE ONLY 14:37:27 CDT CPT-73692 CBC - LAB USE ONLY 14:37:27 CDT CPT-46483 Venipuncture Draw Fee 14:37:27 CDT CPT-TCMM Transitional Care Mgmt-Moderate 14:43:38 CDT CPT-79511 Venipuncture Draw Fee 10:33:47 CDT CPT-30609 BMP - LAB USE ONLY 10:33:46 CDT CPT-Cryo Cryotherapy 15:12:03 CDT CPT-30735 LS spine AP and Lat - XRAY USE ONLY 10:31:51 CDT 07/27 CPT-35454 Punch biopsy 1 lsn 20:40:09 CDT CPT-G0008 Administration of Influenza Virus Vaccine 10:04:48 REFLOW OPERATOR CPT-12206 Fluzone High-Dose Intramuscular Suspension 10:04:48 REFLOW OPERATOR CPT-53948 Ribs unilat w PA chst min 3V 10:45:40 CDT CPT-LR Lesion Removal 13:14:55 CDT CPT-Cryo Cryotherapy 13:14:55 CDT CPT-80370 Venipuncture Draw Fee 10:25:49 CDT CPT-70136 Administration single or combination vaccine inc oral 13 :22:14 REFLOW OPERATOR CPT-10797 Influenza High Dose age 65+ 13:22:14 REFLOW OPERATOR
--- OUTSIDE RECORDS SUMMARY | 2016-12-06 09:15 | XMS REPORT | Clinical Summary ---
Author Author Admin, HILARIA Organization [email or web address] Address Unknown Phone Unavailable Allergies, Adverse Reactions, [...] cause Skin lesion 709.9 Active Blanca Castillo SHAPE CARVER Unspecified disorder of skin and subcutaneous tissue Folliculitis 704.8 Active Gareth Cancino MD Other specified diseases of hair and hair follicles Low back pain, chronic 724.2 Active Gareth Cancino MD Lumbago Frequency of urination 788.41 Active Negin Garcia SUPERVISOR [employer]ER [employer]PAIR Urinary frequency Actinic keratosis 702.0 Active Gareth Cancino MD Actinic keratosis Bronchitis-Acute ICD-466.0 Inactive Gareth Cancino MD Medication List Medication Instructions Start Date Stop Date Generic Name ND Status Provider Patient Instruction TRAMADOL HCL 50 MG TABS 1 po tid PRN TRAMADOL HCL 33340430947 Active Danuta Rian Active HYDROCODONE-ACETAMINOPHEN 5-325 MG TABS 1 tab by mouth every 6 hours as needed for bck pain HYDROCODONE-ACETAMINOPHEN 03134861780 Active Gareth Cancino MD Active ALPRAZOLAM 0.25 MG TAB 1/2 to 1 tablet by mouth qhs prn ALPRAZOLAM 48122967401 No Longer Active Gareth Cancino MD Active CLOBETASOL PROPIONATE 0.05 % CREA apply to hand rash bid CLOBETASOL PROPIONATE 64742405013 No Longer Active Gareth Cancino MD Active BACTROBAN 2 % CREAM Apply to affected area BID MUPIROCIN CALCIUM 51723134233 No Longer Active Gareth Cancino MD Active LISINOPRIL 20 MG TABS 1 tablet by mouth daily for high blood pressure 10/14 LISINOPRIL 07556354776 Active Gareth Cancino MD Active BACTRIM DS 800-160 MG TAB 1 tab by mouth twice daily TRIMETHOPRIM-SULFAMETHOXAZOLE 14887674059 No Longer Active Gareth Cancino MD Active METOPROLOL SUCCINATE ER 100 MG [id number] 1 pill by mouth daily, for blood pressure METOPROLOL SUCCINATE 54205930928 Active Gareth Cancino MD Active KEFLEX 500 MG CAP 1 po TID x 10 days CEPHALEXIN 42744020416 No Longer Active Blanca Castillo APRN Active WELLBUTRIN SR 150 MG ORAL [id number] take 1 tab po BID BUPROPION HCL 66570085656 Active Gareth Cancino MD Active METOPROLOL SUCCINATE 50 MG TB24 1 tablet by mouth daily METOPROLOL SUCCINATE 65256336583 No Longer Active Gareth Cancino MD Active OMEPRAZOLE 20 MG TBEC Take one by mouth daily OMEPRAZOLE 09227231473 No Longer Active Gareth Cancino MD Active OMEPRAZOLE 40 MG CPDR 1 tab po qday for acid reflux. OMEPRAZOLE 54306856231 Active Mary Shah APRN Active LEVAQUIN 500 MG TAB 1 tablet by mouth daily LEVOFLOXACIN 20925185794 No Longer Active Gareth Cancino MD Active ALEVE 220 MG TAB 2 tab po qd NAPROXEN SODIUM 56461466263 Active Gareth Cancino MD Active ASPIRIN 81 MG CHEW TAB 1 tablet by mouth daily ASPIRIN 27303488907 Active Gareth Cancino MD Active VENTOLIN HFA 108 (90 BASE) MCG/ACT AERS 1-2 puffs four times a day PRN shortness of breath ALBUTEROL SULFATE 76065786093 Active Mary Shah APRN Active CENTRUM SILVER TABS 1 TAB PO DAILY MULTIPLE VITAMINS-MINERALS 15378191134 Active Gareth Cancino MD Active VITAMIN B12 100 MCG TABS 1 TAB PO DAILY CYANOCOBALAMIN 25989346013 Active Gareth Cancino MD Active CIPRO 500 MG TABS 1 TAB PO BID CIPROFLOXACIN HCL 61067072644 No Longer Active Gareth Cancino MD Active BACTRIM DS 800-160 MG TAB 1 tab by mouth twice daily TRIMETHOPRIM-SULFAMETHOXAZOLE 39072972130 No Longer Active Gareth Cancino MD Active PREDNISONE 20 MG TAB 1 tab po BID for 3 days, then 1 tab po qday for 3 days PREDNISONE 17777272547 No Longer Active Gareth Cancino MD Active FOLIC ACID 800 MCG TABS Take one by mouth daily FOLIC ACID 15965702334 No Longer Active Gareth Cancino MD Active VITAMIN B-6 250 MG TABS Take one by mouth daily PYRIDOXINE HCL 54698525056 No Longer Active Gareth Cancino MD Active B-12 1000 MCG CAPS Take one by mouth daily CYANOCOBALAMIN 21321513031 No Longer Active Gareth Cancino MD Active DOXYCYCLINE HYCLATE 100 MG CAP 1 cap by mouth twice daily DOXYCYCLINE HYCLATE 94420946498 No Longer Active Gareth Cancino MD Active PREDNISONE 20 MG TAB 1 po bid 3 days, then 1 po q day 3 days 2011 PREDNISONE 68062470129 No Longer Active Gareth Cancino MD Active CHANTIX STARTING MONTH RUBEN 0.5 MG X 11 & 1 MG X 42 TABS 0.5mg daily for 3 days , then 0.5mg BID for 4 days, then 1mg BID VARENICLINE TARTRATE 86569497707 No Longer Active Gareth Cancino MD Active SIMVASTATIN 40 MG TABS Take one by mouth daily SIMVASTATIN 60287066121 Active Gareth Cancino MD Active TRIAMTERENE-HCTZ 37.5-25 MG CAPS Take one by mouth daily TRIAMTERENE- HCTZ 80297282213 Active Gareth Cancino MD Active CHANTIX STARTING [...] 3 days 2011 PREDNISONE 20 MG TAB 714625 PREDNISONE Inactive DOXYCYCLINE HYCLATE 100 MG CAP 1 cap by mouth twice daily DOXYCYCLINE HYCLATE 100 MG CAP 7815084 DOXYCYCLINE HYCLATE Inactive B-12 1000 MCG CAPS Take one by mouth daily B-12 1000 MCG CAPS CYANOCOBALAMIN Inactive VITAMIN B-6 250 MG TABS Take one by mouth daily VITAMIN B-6 250 MG TABS PYRIDOXINE HCL Inactive FOLIC ACID 800 MCG TABS Take one by mouth daily FOLIC ACID 800 MCG TABS 743257 FOLIC ACID Inactive CIPRO 500 MG TABS 1 TAB PO BID CIPRO 500 MG TABS 669727 CIPROFLOXACIN HCL Inactive OMEPRAZOLE 20 MG TBEC Take one by mouth daily OMEPRAZOLE 20 MG TBEC 060127 OMEPRAZOLE Inactive METOPROLOL SUCCINATE 50 MG TB24 1 tablet by mouth daily METOPROLOL SUCCINATE 50 MG TB24 METOPROLOL SUCCINATE Inactive BACTROBAN 2 % CREAM Apply to affected area BID BACTROBAN 2 % CREAM 665099 MUPIROCIN CALCIUM Inactive CLOBETASOL PROPIONATE 0.05 % CREA apply to hand rash bid CLOBETASOL PROPIONATE 0.05 % CREA 068548 CLOBETASOL PROPIONATE Inactive ALPRAZOLAM 0.25 MG TAB 1/2 to 1 tablet by mouth qhs prn ALPRAZOLAM 0.25 MG TAB 658212 ALPRAZOLAM Inactive PREDNISONE 20 MG TAB 1 tab po BID for 3 days, then 1 tab po qday for 3 days PREDNISONE 20 MG TAB 569216 PREDNISONE Inactive BACTRIM DS 800-160 MG TAB 1 tab by mouth twice daily BACTRIM DS 800-160 MG TAB 494069 TRIMETHOPRIM-SULFAMETHOXAZOLE Inactive LEVAQUIN 500 MG TAB 1 tablet by mouth daily LEVAQUIN 500 MG TAB 087436 LEVOFLOXACIN Inactive KEFLEX 500 MG CAP 1 po TID x 10 days KEFLEX 500 MG CAP 066277 CEPHALEXIN Inactive BACTRIM DS 800-160 MG TAB 1 tab by mouth twice daily BACTRIM DS 800-160 MG TAB 050745 TRIMETHOPRIM-SULFAMETHOXAZOLE Inactive Vital Signs Date Name Value [...] Panel - Chemistry sodium, serum 133 mmol/L 118-566 7064/08/24 potassium, serum 4.4 mmol/L 3.5-5.2 chloride, serum 95 mmol/L 98-107 carbon dioxide, venous blood 33.0 mmol/L 21.0-32.0 blood glucose 107 mg/dL 65-110 calcium, serum 8.8 mg/dL 8.5-10.1 urea nitrogen, blood 12 mg/dL 7-18 creatinine, serum 0.69 mg/dL 0.55-1.30 Lab Report: Lipid Panel, Comp. Metabolic Panel, CBC W/DIFF, MICROALB/CRE ... - Chemistry albumin/creatinine ratio, urine < 30 mg/g mg/g{creat} 0-29 cholesterol, serum 195 mg/dL 294-747 6960/12/02 triglyceride, serum, fasting 74 mg/dL 30-200 HDL cholesterol, serum 52 mg/dL 32-96 LDL cholesterol, serum 128 mg/dL 0-130 sodium, serum 134 mmol/L 575-337 5195/12/02 carbon dioxide, venous blood 30.3 mmol/L 21.0-32.0 [...] 5.0-8.5 Encounters Code Encounter Date Provider Facility CPT-66097 Level 4 Est. Patient 09:00:18 CDT Gareth Cancino MD [facility] CPT-17772 Level 3 Est. Patient 15:12:03 CDT Gareth Cancino MD [facility] CPT-32024 Level 3 Est. Patient 23:08:20 CDT Gareth Cancino MD [facility] CPT-37175 Level 4 Est. Patient 20:40:10 CDT Gareth Cancino MD [facility] CPT-51594 Level 4 Est. Patient 19:50:11 CDT Gareth Cancino MD [facility] CPT-00717 Level 3 Est. Patient 11:00:13 CDT Gareth Cancino MD [facility] CPT-69803 Level 4 Est. Patient 11:20:21 CDT Gareth Cancino MD [facility] CPT-36073 Level 4 Est. Patient 09:22:18 SALES ACCOUNT ASSOCIATE Gareth Cancino MD [facility] CPT-47794 Level 3 Est. Patient 09:48:04 CDT Gareth Cancino MD [facility] CPT-48754 Level 3 Est. Patient 10:13:16 CDT Gareth Cancino MD [facility] CPT-54446 Level 2 Est. Patient 18:36:56 CDT Gareth Cancino MD [facility] CPT-92150 Level 4 Est. Patient 13:50:53 CDT Gareth Cancino MD [facility] CPT-02626 Level 3 Est. Patient 14:58:33 SALES ACCOUNT ASSOCIATE Gareth Cancino MD [facility] CPT-21563 Level 4 Est. Patient 09:25:57 CDT Gareth Cancino MD [facility] CPT-46064 Level 3 Est. Patient 20:39:33 CDT Noman Edwards DO [facility] CPT-92042 Level 2 Est. Patient 13:17:39 CDT Gareth Cancino MD [facility] CPT-25921 Level 3 Est. Patient 13:37:20 CDT Gareth Cancino MD [facility] CPT-10747 Level 3 Est. Patient 18:09:08 CDT Gareth Cancino MD [facility] CPT-69442 Level 4 Est. Patient 09:59:07 CDT Gareth Cancino MD [facility] Procedures Code Procedure Name Date Entry Date Standard Description CPT-86123 Venipuncture Draw Fee 10:33:47 CDT CPT-41068 BMP - LAB USE ONLY 10:33:46 CDT CPT-Cryo Cryotherapy 15:12:03 CDT CPT-58012 LS spine AP and Lat - XRAY USE ONLY 10:31:51 CDT 07/27 CPT-03441 Punch biopsy 1 lsn 20:40:09 CDT CPT-G0008 Administration of Influenza Virus Vaccine 10:04:48 SALES ACCOUNT ASSOCIATE CPT-90526 Fluzone High-Dose Intramuscular Suspension 10:04:48 SALES ACCOUNT ASSOCIATE CPT-89025 Ribs unilat w PA chst min 3V 10:45:40 CDT CPT-LR Lesion Removal 13:14:55 CDT CPT-Cryo Cryotherapy 13:14:55 CDT CPT-02403 Venipuncture Draw Fee 10:25:49 CDT CPT-42845 Administration single or combination vaccine inc oral 13 :22:14 SALES ACCOUNT ASSOCIATE CPT-69409 Influenza High Dose age 65+ 13:22:14 SALES ACCOUNT ASSOCIATE
--- OUTSIDE RECORDS SUMMARY | 2016-12-06 09:17 | XMS REPORT | Clinical Summary ---
Author Author Admin, HILARIA Organization [employer] Address Unknown Phone Unavailable Allergies, Adverse Reactions, [...] po daily as needed for arthritis/pain PIROXICAM 41157542566 Active Gareth Cancino MD Active ZITHROMAX Z-RUBEN 250 MG TABS 2 today, then 1 daily for 4 days 2016 AZITHROMYCIN 35736037809 No Longer Active Tangelashar Forte Active FENTANYL 25 MCG/HR TRANS PT72 1 patch every 72 hours FENTANYL 83070263258 Active Mary Shah APRN Active PREDNISONE 20 MG TAB take 3 tabs daily for 3 days, 2 tabs daily for 3 days, 1 tab daily for 3 days, 1/2 tab daily for 4 days PREDNISONE 02937405768 No Longer Active Mary Shah APRN Active LEVAQUIN 500 MG TAB 1 tablet by mouth daily for 7 days LEVOFLOXACIN 32473797569 Active Marylennox Shah APRN Active AZITHROMYCIN 250 MG TABS 2 po qd x 1 day, then 1 po qd x 4 days AZITHROMYCIN 79162550034 No Longer Active Danuta Rian Active AZITHROMYCIN 250 MG TABS 2 po qd x 1 day, then 1 po qd x 4 days AZITHROMYCIN 70190312919 No Longer Active Tangela Forte Active HYDROCODONE-ACETAMINOPHEN 5-325 MG TABS 1 tab by mouth every 6 hours as needed for bck pain HYDROCODONE-ACETAMINOPHEN 12416944039 No Longer Active Gareth Cancino MD Active ALPRAZOLAM 0.25 MG TAB 1 tablet by mouth q hs prn ALPRAZOLAM 45734669731 Active Gareth Cancino MD Active AZITHROMYCIN 250 MG ORAL TABS 1 tab daily AZITHROMYCIN 56335399580 No Longer Active Gareth Cancino MD Active ZITHROMAX 250 MG TAB 2 po today, then 1 po q days 2-5 AZITHROMYCIN 95570732642 No Longer Active Tangela Raida Active IPRATROPIUM-ALBUTEROL 0.5-2.5 (3) MG/3ML INH SOLN nebulize 1 vial every 6hrs prn shortness of breath IPRATROPIUM-ALBUTEROL 64455240879 Active Gareth Cancino MD Active FENTANYL 25 MCG/HR PT72 Apply to clean, dry skin and change every 72 hours FENTANYL 23337448080 No Longer Active Gareth Cancino MD Active WELLBUTRIN SR 150 MG ORAL [id number] take 1 tab po BID BUPROPION HCL 86093719024 No Longer Active Gareth Cancino MD Active ZOFRAN 4 MG ORAL TABS 1 by mouth every 6 hours prn nausea ONDANSETRON HCL 63693465581 Active Tangela Forte Active TRAMADOL HCL 50 MG TABS 1 po tid PRN TRAMADOL HCL 18635986148 Active Gareth Cancino MD Active ALPRAZOLAM 0.25 MG TAB 1/2 to 1 tablet by mouth qhs prn ALPRAZOLAM 85165667900 No Longer Active Gareth Cancino MD Active CLOBETASOL PROPIONATE 0.05 % CREA apply to hand rash bid CLOBETASOL PROPIONATE 73917345368 No Longer Active Gareth Cancino MD Active BACTROBAN 2 % CREAM Apply to affected area BID MUPIROCIN CALCIUM 34966346665 No Longer Active Gareth Cancino MD Active LISINOPRIL 20 MG TABS 1 tablet by mouth daily for high blood pressure 10/14 LISINOPRIL 94576341845 Active Gareth Cancino MD Active BACTRIM DS 800-160 MG TAB 1 tab by mouth twice daily TRIMETHOPRIM-SULFAMETHOXAZOLE 12850067525 No Longer Active Gareth Cancino MD Active METOPROLOL SUCCINATE ER 100 MG [id number] 1 pill by mouth daily, for blood pressure METOPROLOL SUCCINATE 30438314532 Active Gareth Cancino MD Active KEFLEX 500 MG CAP 1 po TID x 10 days CEPHALEXIN 51737382620 No Longer Active Blanca Castillo APRN Active METOPROLOL SUCCINATE 50 MG TB24 1 tablet by mouth daily METOPROLOL SUCCINATE 64243870106 No Longer Active Gareth Cancino MD Active OMEPRAZOLE 20 MG TBEC Take one by mouth daily OMEPRAZOLE 05400566286 No Longer Active Gareth Cancino MD Active OMEPRAZOLE 40 MG CPDR 1 tab po qday for acid reflux. OMEPRAZOLE 34254616329 Active Mary Shah APRN Active LEVAQUIN 500 MG TAB 1 tablet by mouth daily LEVOFLOXACIN 16180754188 No Longer Active Gareth Cancino MD Active ALEVE 220 MG TAB 2 tab po qd NAPROXEN SODIUM 36007207437 Active Gareth Cancino MD Active ASPIRIN 81 MG CHEW TAB 1 tablet by mouth daily ASPIRIN 19605535924 Active Gareth Cancino MD Active VENTOLIN HFA 108 (90 BASE) MCG/ACT AERS 1-2 puffs four times a day PRN shortness of breath ALBUTEROL SULFATE 91228990248 Active Mary Shah APRN Active CENTRUM SILVER TABS 1 TAB PO DAILY MULTIPLE VITAMINS-MINERALS 48225287229 Active Gareth Cancino MD Active VITAMIN B12 100 MCG TABS 1 TAB PO DAILY CYANOCOBALAMIN 91975020095 Active Gareth Cancino MD Active CIPRO 500 MG TABS 1 TAB PO BID CIPROFLOXACIN HCL 55769197305 No Longer Active Gareth Cancino MD Active BACTRIM DS 800-160 MG TAB 1 tab by mouth twice daily TRIMETHOPRIM-SULFAMETHOXAZOLE 24045174641 No Longer Active Gareth Cancino MD Active PREDNISONE 20 MG TAB 1 tab po BID for 3 days, then 1 tab po qday for 3 days PREDNISONE 00554462879 No Longer Active Gareth Cancino MD Active FOLIC ACID 800 MCG TABS Take one by mouth daily FOLIC ACID 76481042823 No Longer Active Gareth Cancino MD Active VITAMIN B-6 250 MG TABS Take one by mouth daily PYRIDOXINE HCL 06051592856 No Longer Active Gareth Cancino MD Active B-12 1000 MCG CAPS Take one by mouth daily CYANOCOBALAMIN 87895932759 No Longer Active Gareth Cancino MD Active DOXYCYCLINE HYCLATE 100 MG CAP 1 cap by mouth twice daily DOXYCYCLINE HYCLATE 42828706015 No Longer Active Gareth Cancino MD Active PREDNISONE 20 MG TAB 1 po bid 3 days, then 1 po q day 3 days 2011 PREDNISONE 12206872835 No Longer Active Gareth Cancino MD Active CHANTIX STARTING MONTH RUBEN 0.5 MG X 11 & 1 MG X 42 TABS 0.5mg daily for 3 days , then 0.5mg BID for 4 days, then 1mg BID VARENICLINE TARTRATE 78912019268 No Longer Active Gareth Cancino MD Active SIMVASTATIN 40 MG TABS Take one by mouth daily SIMVASTATIN 90652465304 Active Gareth Cancino MD Active TRIAMTERENE-HCTZ 37.5-25 MG CAPS Take one by mouth daily TRIAMTERENE- HCTZ 86158790098 Active Mary Shah APRN Active CHANTIX STARTING [...] 3 days 2011 PREDNISONE 20 MG TAB 547583 PREDNISONE Inactive DOXYCYCLINE HYCLATE 100 MG CAP 1 cap by mouth twice daily DOXYCYCLINE HYCLATE 100 MG CAP 6600010 DOXYCYCLINE HYCLATE Inactive B-12 1000 MCG CAPS Take one by mouth daily B-12 1000 MCG CAPS CYANOCOBALAMIN Inactive VITAMIN B-6 250 MG TABS Take one by mouth daily VITAMIN B-6 250 MG TABS PYRIDOXINE HCL Inactive FOLIC ACID 800 MCG TABS Take one by mouth daily FOLIC ACID 800 MCG TABS 493238 FOLIC ACID Inactive CIPRO 500 MG TABS 1 TAB PO BID CIPRO 500 MG TABS 909668 CIPROFLOXACIN HCL Inactive OMEPRAZOLE 20 MG TBEC Take one by mouth daily OMEPRAZOLE [address] [facility] 737221 OMEPRAZOLE Inactive METOPROLOL SUCCINATE 50 MG TB24 1 tablet by mouth daily METOPROLOL SUCCINATE 50 MG TB24 METOPROLOL SUCCINATE Inactive BACTROBAN 2 % CREAM Apply to affected area BID BACTROBAN 2 % CREAM 919543 MUPIROCIN CALCIUM Inactive CLOBETASOL PROPIONATE 0.05 % CREA apply to hand rash bid CLOBETASOL PROPIONATE 0.05 % CREA 625575 CLOBETASOL PROPIONATE Inactive ALPRAZOLAM 0.25 MG TAB 1/2 to 1 tablet by mouth qhs prn ALPRAZOLAM 0.25 MG TAB 174842 ALPRAZOLAM Inactive WELLBUTRIN SR 150 MG ORAL [id number] take 1 tab po BID WELLBUTRIN SR 150 MG ORAL [id number] BUPROPION HCL Inactive AZITHROMYCIN 250 MG ORAL TABS 1 tab daily AZITHROMYCIN 250 MG ORAL TABS 3715864 AZITHROMYCIN Inactive HYDROCODONE-ACETAMINOPHEN 5-325 MG TABS 1 tab by mouth every 6 hours as needed for bck pain HYDROCODONE-ACETAMINOPHEN 5-325 MG TABS 379480 HYDROCODONE-ACETAMINOPHEN Inactive PREDNISONE 20 MG TAB 1 tab po BID for 3 days, then 1 tab po qday for 3 days PREDNISONE 20 MG TAB 892475 PREDNISONE Inactive BACTRIM DS 800-160 MG TAB 1 tab by mouth twice daily BACTRIM DS 800-160 MG TAB 968080 TRIMETHOPRIM-SULFAMETHOXAZOLE Inactive LEVAQUIN 500 MG TAB 1 tablet by mouth daily LEVAQUIN 500 MG TAB 565510 LEVOFLOXACIN Inactive KEFLEX 500 MG CAP 1 po TID x 10 days KEFLEX 500 MG CAP 041413 CEPHALEXIN Inactive BACTRIM DS 800-160 MG TAB 1 tab by mouth twice daily BACTRIM DS 800-160 MG TAB 979493 TRIMETHOPRIM-SULFAMETHOXAZOLE Inactive FENTANYL 25 MCG/HR PT72 Apply to clean, dry skin and change every 72 hours FENTANYL 25 MCG/HR PT72 858852 FENTANYL Inactive ZITHROMAX 250 MG TAB 2 po today, then 1 po q days 2-5 ZITHROMAX 250 MG TAB 1694167 AZITHROMYCIN Inactive AZITHROMYCIN 250 MG TABS 2 po qd x 1 day, then 1 po qd x 4 days AZITHROMYCIN 250 MG TABS 7542953 AZITHROMYCIN Inactive AZITHROMYCIN 250 MG TABS 2 po qd x 1 day, then 1 po qd x 4 days AZITHROMYCIN 250 MG TABS 7634583 AZITHROMYCIN Inactive PREDNISONE 20 MG TAB take 3 tabs daily for 3 days, 2 tabs daily for 3 days, 1 tab daily for 3 days, 1/2 tab daily for 4 days PREDNISONE 20 MG TAB 089502 PREDNISONE Inactive ZITHROMAX Z-RUBEN 250 MG TABS 2 today, then 1 daily for 4 days 2016 ZITHROMAX Z-RUBEN 250 MG TABS 1544970 AZITHROMYCIN Inactive Vital Signs Date Name Value [...] Panel - Chemistry sodium, serum 133 mmol/L 013-120 6826/08/24 potassium, serum 4.4 mmol/L 3.5-5.2 chloride, serum 95 mmol/L 98-107 carbon dioxide, venous blood 33.0 mmol/L 21.0-32.0 blood glucose 107 mg/dL 65-110 calcium, serum 8.8 mg/dL 8.5-10.1 urea nitrogen, blood 12 mg/dL 7-18 creatinine, serum 0.69 mg/dL 0.55-1.30 Lab Report: CBC, Basic Metabolic Panel - Chemistry sodium, serum 132 mmol/L 153-381 0808/10/12 potassium, serum 4.7 mmol/L 3.5-5.2 chloride, serum [...] CBC - Chemistry sodium, serum 136 mmol/L 235-674 6971/11/01 carbon dioxide, venous blood 32.1 mmol/L 21.0-32.0 [...] PANEL - Chemistry cholesterol, serum 169 mg/dL 202-018 4368/05/09 HDL cholesterol, serum 54 mg/dL > OR=46 [...] mg/dL Encounters Code Encounter Date Provider Facility CPT-76492 Level 4 Est. Patient 07:23:02 CDT Gareth Cancino MD [facility] CPT-25061 Level 3 Est. Patient 09:05:25 [employer] Mary Shah APRN [facility] CPT-90598 Level 3 Est. Patient 20:53:25 [employer] Gareth Cancino MD [facility] CPT-64695 Level 3 Est. Patient 10:34:55 CDT Gareth Cancino MD [facility] CPT-63324 Level 4 Est. Patient 09:00:18 CDT Gareth Cancino MD [facility] CPT-74035 Level 3 Est. Patient 15:12:03 CDT Gareth Cancino MD [facility] CPT-89483 Level 3 Est. Patient 23:08:20 CDT Gareth Cancino MD [facility] CPT-51389 Level 4 Est. Patient 20:40:10 CDT Gareth Cancino MD [facility] CPT-32667 Level 4 Est. Patient 19:50:11 CDT Gareth Cancino MD [facility] CPT-44490 Level 3 Est. Patient 11:00:13 CDT Gareth Cancino MD [facility] CPT-81258 Level 4 Est. Patient 11:20:21 CDT Gareth Cancino MD [facility] CPT-67399 Level 4 Est. Patient 09:22:18 [employer] Gareth Cancino MD [facility] CPT-60962 Level 3 Est. Patient 09:48:04 CDT Gareth Cancino MD [facility] CPT-49055 Level 3 Est. Patient 10:13:16 CDT Gareth Cancino MD [facility] CPT-36445 Level 2 Est. Patient 18:36:56 CDT Gareth Cancino MD [facility] CPT-76921 Level 4 Est. Patient 13:50:53 CDT Gareth Cancino MD [facility] CPT-29337 Level 3 Est. Patient 14:58:33 [employer] Gareth Cancino MD [facility] CPT-27322 Level 4 Est. Patient 09:25:57 CDT Gareth Cancino MD [facility] CPT-25313 Level 3 Est. Patient 20:39:33 CDT Noman Edwards DO [facility] CPT-61513 Level 2 Est. Patient 13:17:39 CDT Gareth Cancino MD [facility] CPT-33871 Level 3 Est. Patient 13:37:20 CDT Gareth Cancino MD [facility] CPT-56707 Level 3 Est. Patient 18:09:08 CDT Gareth Cancino MD [facility] CPT-02287 Level 4 Est. Patient 09:59:07 CDT Gareth Cancino MD [facility] Procedures Code Procedure Name Date Entry Date Standard Description CPT-000 Give Appropriate Flu Vaccine 09:29:52 [employer] CPT-000 Give Appropriate Flu Vaccine 09:22:20 [employer] CPT-75779 TSH - LAB USE ONLY 08:11:40 [employer] CPT-05914 Free T4 - LAB USE ONLY 08:11:40 [employer] CPT-17219 Venipuncture Draw Fee 08:11:40 [employer] CPT-70581 UA w micro - LAB USE ONLY 14:26:22 [employer] CPT-G0438 Initial Annual Wellness Exam 20:53:25 [employer] CPT-G0009 Administration of Pneumococcal Vaccine 11:42:53 [employer] CPT-48141 Prevnar 13 Intramuscular Suspension 11:42:53 [employer] 01/07 CPT-78171 First Vx - Ix admin for Medicare patients 11:39:44 [employer] CPT-77063 Fluzone High-Dose Intramuscular Suspension 11:39:44 [employer] CPT-56379 Prevnar 13 Intramuscular Suspension 09:29:52 [employer] 01/07 CPT-70795 CMP - LAB USE ONLY 16:31:15 CDT CPT-99051 CBC - LAB USE ONLY 16:31:14 CDT CPT-22749 Venipuncture Draw Fee 16:31:14 CDT CPT-93969 BMP - LAB USE ONLY 14:37:27 CDT CPT-60459 CBC - LAB USE ONLY 14:37:27 CDT CPT-71777 Venipuncture Draw Fee 14:37:27 CDT CPT-TCMM Transitional Care Mgmt-Moderate 14:43:38 CDT CPT-76454 Venipuncture Draw Fee 10:33:47 CDT CPT-39779 BMP - LAB USE ONLY 10:33:46 CDT CPT-Cryo Cryotherapy 15:12:03 CDT CPT-52652 LS spine AP and Lat - XRAY USE ONLY 10:31:51 CDT 07/27 CPT-70898 Punch biopsy 1 lsn 20:40:09 CDT CPT-G0008 Administration of Influenza Virus Vaccine 10:04:48 [employer] CPT-94619 Fluzone High-Dose Intramuscular Suspension 10:04:48 [employer] CPT-04849 Ribs unilat w PA chst min 3V 10:45:40 CDT CPT-LR Lesion Removal 13:14:55 CDT CPT-Cryo Cryotherapy 13:14:55 CDT CPT-72566 Venipuncture Draw Fee 10:25:49 CDT CPT-95628 Administration single or combination vaccine inc oral 13 :22:14 [employer] CPT-09290 Influenza High Dose age 65+ 13:22:14 [employer]
--- OUTSIDE RECORDS SUMMARY | 2016-12-06 09:18 | XMS REPORT | Clinical Summary ---
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 Urinary frequency Actinic keratosis 702.0 Active [...] MG ORAL TABS 1 tab daily AZITHROMYCIN 34123023182 No Longer Active Gareth Cancino MD Active ZITHROMAX 250 MG TAB 2 po today, then 1 po q days 2-5 AZITHROMYCIN 44865812778 No Longer Active Tangela Forte Active IPRATROPIUM-ALBUTEROL 0.5-2.5 (3) MG/3ML INH SOLN nebulize 1 vial every 6hrs prn shortness of breath IPRATROPIUM-ALBUTEROL 83051113908 Active Gareth Cancino MD Active FENTANYL 25 MCG/HR PT72 Apply to clean, dry skin and change every 72 hours FENTANYL 04440676644 Active Gareth Cancino MD Active WELLBUTRIN SR 150 MG ORAL [id number] take 1 tab po BID BUPROPION HCL 37754909472 No Longer Active Gareth Cancino MD Active ZOFRAN 4 MG ORAL TABS 1 by mouth every 6 hours prn nausea ONDANSETRON HCL 39917344358 Active Tangela Forte Active TRAMADOL HCL 50 MG TABS 1 po tid PRN TRAMADOL HCL 78703858160 Active Gareth Cancino MD Active HYDROCODONE-ACETAMINOPHEN 5-325 MG TABS 1 tab by mouth every 6 hours as needed for bck pain HYDROCODONE-ACETAMINOPHEN 44218373539 Active Gareth Cancino MD Active ALPRAZOLAM 0.25 MG TAB 1/2 to 1 tablet by mouth qhs prn ALPRAZOLAM 79966419622 No Longer Active Gareth Cancino MD Active CLOBETASOL PROPIONATE 0.05 % CREA apply to hand rash bid CLOBETASOL PROPIONATE 23989772688 No Longer Active Gareth Cancino MD Active BACTROBAN 2 % CREAM Apply to affected area BID MUPIROCIN CALCIUM 23612479992 No Longer Active Gareth Cancino MD Active LISINOPRIL 20 MG TABS 1 tablet by mouth daily for high blood pressure 10/14 LISINOPRIL 17901269716 Active Gareth Cancino MD Active BACTRIM DS 800-160 MG TAB 1 tab by mouth twice daily TRIMETHOPRIM-SULFAMETHOXAZOLE 79067774867 No Longer Active Gareth Cancino MD Active METOPROLOL SUCCINATE ER 100 MG [id number] 1 pill by mouth daily, for blood pressure METOPROLOL SUCCINATE 60049149365 Active Gareth Cancino MD Active KEFLEX 500 MG CAP 1 po TID x 10 days CEPHALEXIN 96151673350 No Longer Active Blanca Castillo APRN Active METOPROLOL SUCCINATE 50 MG TB24 1 tablet by mouth daily METOPROLOL SUCCINATE 41131898293 No Longer Active Gareth Cancino MD Active OMEPRAZOLE 20 MG TBEC Take one by mouth daily OMEPRAZOLE 78535168004 No Longer Active Gareth Cancino MD Active OMEPRAZOLE 40 MG CPDR 1 tab po qday for acid reflux. OMEPRAZOLE 92575869075 Active Mary Shah APRN Active LEVAQUIN 500 MG TAB 1 tablet by mouth daily LEVOFLOXACIN 57466965307 No Longer Active Gareth Cancino MD Active ALEVE 220 MG TAB 2 tab po qd NAPROXEN SODIUM 43202502808 Active Gareth Cancino MD Active ASPIRIN 81 MG CHEW TAB 1 tablet by mouth daily ASPIRIN 35393494364 Active Gareth Cancino MD Active VENTOLIN HFA 108 (90 BASE) MCG/ACT AERS 1-2 puffs four times a day PRN shortness of breath ALBUTEROL SULFATE 96498602910 Active Mary Shah RN PLACEMENT Active CENTRUM SILVER TABS 1 TAB PO DAILY MULTIPLE VITAMINS-MINERALS 97639102290 Active Gareth Cancino MD Active VITAMIN B12 100 MCG TABS 1 TAB PO DAILY CYANOCOBALAMIN 83873575863 Active Gareth Cancino MD Active CIPRO 500 MG TABS 1 TAB PO BID CIPROFLOXACIN HCL 44880104925 No Longer Active Gareth Cancino MD Active BACTRIM DS 800-160 MG TAB 1 tab by mouth twice daily TRIMETHOPRIM-SULFAMETHOXAZOLE 06783710734 No Longer Active Gareth Cancino MD Active PREDNISONE 20 MG TAB 1 tab po BID for 3 days, then 1 tab po qday for 3 days PREDNISONE 68178412396 No Longer Active Gareth Cancino MD Active FOLIC ACID 800 MCG TABS Take one by mouth daily FOLIC ACID 14671506084 No Longer Active Gareth Cancino MD Active VITAMIN B-6 250 MG TABS Take one by mouth daily PYRIDOXINE HCL 11638622187 No Longer Active Gareth Cancino MD Active B-12 1000 MCG CAPS Take one by mouth daily CYANOCOBALAMIN 97634132037 No Longer Active Gareth Cancino MD Active DOXYCYCLINE HYCLATE 100 MG CAP 1 cap by mouth twice daily DOXYCYCLINE HYCLATE 62659183822 No Longer Active Gareth Cancino MD Active PREDNISONE 20 MG TAB 1 po bid 3 days, then 1 po q day 3 days 2011 PREDNISONE 84169003262 No Longer Active Gareth Cancino MD Active CHANTIX STARTING MONTH RUBEN 0.5 MG X 11 & 1 MG X 42 TABS 0.5mg daily for 3 days , then 0.5mg BID for 4 days, then 1mg BID VARENICLINE TARTRATE 82805798241 No Longer Active Gareth Cancino MD Active SIMVASTATIN 40 MG TABS Take one by mouth daily SIMVASTATIN 56626948184 Active Gareth Cancino MD Active TRIAMTERENE-HCTZ 37.5-25 MG CAPS Take one by mouth daily TRIAMTERENE- HCTZ 28676633216 Active Gareth Cancino MD Active CHANTIX STARTING [...] 3 days 2011 PREDNISONE 20 MG TAB 193042 PREDNISONE Inactive DOXYCYCLINE HYCLATE 100 MG CAP 1 cap by mouth twice daily DOXYCYCLINE HYCLATE 100 MG CAP 8577682 DOXYCYCLINE HYCLATE Inactive B-12 1000 MCG CAPS Take one by mouth daily B-12 1000 MCG CAPS CYANOCOBALAMIN Inactive VITAMIN B-6 250 MG TABS Take one by mouth daily VITAMIN B-6 250 MG TABS PYRIDOXINE HCL Inactive FOLIC ACID 800 MCG TABS Take one by mouth daily FOLIC ACID 800 MCG TABS 526228 FOLIC ACID Inactive CIPRO 500 MG TABS 1 TAB PO BID CIPRO 500 MG TABS 510529 CIPROFLOXACIN HCL Inactive OMEPRAZOLE 20 MG TBEC Take one by mouth daily OMEPRAZOLE 20 MG TBEC 515846 OMEPRAZOLE Inactive METOPROLOL SUCCINATE 50 MG TB24 1 tablet by mouth daily METOPROLOL SUCCINATE 50 MG TB24 METOPROLOL SUCCINATE Inactive BACTROBAN 2 % CREAM Apply to affected area BID BACTROBAN 2 % CREAM 476736 MUPIROCIN CALCIUM Inactive CLOBETASOL PROPIONATE 0.05 % CREA apply to hand rash bid 2016/06/ 06 CLOBETASOL PROPIONATE 0.05 % CREA 868307 CLOBETASOL PROPIONATE Inactive ALPRAZOLAM 0.25 MG TAB 1/2 to 1 tablet by mouth qhs prn ALPRAZOLAM 0.25 MG TAB 814178 ALPRAZOLAM Inactive WELLBUTRIN SR 150 MG ORAL [id number]-VTP take 1 tab po BID WELLBUTRIN SR 150 MG ORAL [id number] BUPROPION HCL Inactive AZITHROMYCIN 250 MG ORAL TABS 1 tab daily AZITHROMYCIN 250 MG ORAL TABS 0528114 AZITHROMYCIN Inactive PREDNISONE 20 MG TAB 1 tab po BID for 3 days, then 1 tab po qday for 3 days PREDNISONE 20 MG TAB 565514 PREDNISONE Inactive BACTRIM DS 800-160 MG TAB 1 tab by mouth twice daily BACTRIM DS 800-160 MG TAB 017599 TRIMETHOPRIM-SULFAMETHOXAZOLE Inactive LEVAQUIN 500 MG TAB 1 tablet by mouth daily LEVAQUIN 500 MG TAB 765040 LEVOFLOXACIN Inactive KEFLEX 500 MG CAP 1 po TID x 10 days KEFLEX 500 MG CAP 162674 CEPHALEXIN Inactive BACTRIM DS 800-160 MG TAB 1 tab by mouth twice daily BACTRIM DS 800-160 MG TAB 668510 TRIMETHOPRIM-SULFAMETHOXAZOLE Inactive ZITHROMAX 250 MG TAB 2 po today, then 1 po q days 2-5 ZITHROMAX 250 MG TAB 2030386 AZITHROMYCIN Inactive Vital Signs Date Name Value [...] Panel - Chemistry sodium, serum 133 mmol/L 310-886 6933/08/24 potassium, serum 4.4 mmol/L 3.5-5.2 chloride, serum 95 mmol/L 98-107 carbon dioxide, venous blood 33.0 mmol/L 21.0-32.0 blood glucose 107 mg/dL 65-110 calcium, serum 8.8 mg/dL 8.5-10.1 urea nitrogen, blood 12 mg/dL 7-18 creatinine, serum 0.69 mg/dL 0.55-1.30 Lab Report: CBC, Basic Metabolic Panel - Chemistry sodium, serum 132 mmol/L 992-002 5809/10/12 potassium, serum 4.7 mmol/L 3.5-5.2 chloride, serum [...] CBC - Chemistry sodium, serum 136 mmol/L 754-683 2386/11/01 carbon dioxide, venous blood 32.1 mmol/L 21.0-32.0 [...] mg/g mg/g{creat} 0-29 cholesterol, serum 195 mg/dL 852-105 5136/12/02 triglyceride, serum, fasting 74 mg/dL 30-200 HDL cholesterol, serum 52 mg/dL 32-96 LDL cholesterol, serum 128 mg/dL 0-130 sodium, serum 134 mmol/L 835-640 6068/12/02 carbon dioxide, venous blood 30.3 mmol/L 21.0-32.0 [...] 5.0-8.5 Encounters Code Encounter Date Provider Facility CPT-38899 Level 3 Est. Patient 10:34:55 CDT Gareth Cancino MD [facility] CPT-50184 Level 4 Est. Patient 09:00:18 CDT Gareth Cancino MD [facility] CPT-36734 Level 3 Est. Patient 15:12:03 CDT Gareth Cancino MD [facility] CPT-70895 Level 3 Est. Patient 23:08:20 CDT Gareth Cancino MD [facility] CPT-90879 Level 4 Est. Patient 20:40:10 CDT Gareth Cancino MD [facility] CPT-00046 Level 4 Est. Patient 19:50:11 CDT Gareth Cancino MD [facility] CPT-82736 Level 3 Est. Patient 11:00:13 CDT Gareth Cancino MD [facility] CPT-21432 Level 4 Est. Patient 11:20:21 CDT Gareth Cancino MD [facility] CPT-75207 Level 4 Est. Patient 09:22:18 EDGE GRINDER Gareth Cancino MD [facility] CPT-41927 Level 3 Est. Patient 09:48:04 CDT Gareth Cancino MD [facility] CPT-59784 Level 3 Est. Patient 10:13:16 CDT Gareth Cancino MD [facility] CPT-90979 Level 2 Est. Patient 18:36:56 CDT Gareth Cancino MD [facility] CPT-89059 Level 4 Est. Patient 13:50:53 CDT Gareth Cancino MD [facility] CPT-64364 Level 3 Est. Patient 14:58:33 EDGE GRINDER Gareth Cancino MD [facility] CPT-50226 Level 4 Est. Patient 09:25:57 CDT Gareth Cancino MD [facility] CPT-49422 Level 3 Est. Patient 20:39:33 CDT Noman Edwards DO [facility] CPT-90642 Level 2 Est. Patient 13:17:39 CDT Gareth Cancino MD [facility] CPT-45205 Level 3 Est. Patient 13:37:20 CDT Gareth Cancino MD [facility] CPT-45922 Level 3 Est. Patient 18:09:08 CDT Gareth aCncino MD [facility] CPT-91236 Level 4 Est. Patient 09:59:07 CDT Gareth Cancino MD [facility] Procedures Code Procedure Name Date Entry Date Standard Description CPT-07026 CMP - LAB USE ONLY 16:31:15 CDT CPT-50167 CBC - LAB USE ONLY 16:31:14 CDT CPT-75217 Venipuncture Draw Fee 16:31:14 CDT CPT-44001 BMP - LAB USE ONLY 14:37:27 CDT CPT-28414 CBC - LAB USE ONLY 14:37:27 CDT CPT-31681 Venipuncture Draw Fee 14:37:27 CDT CPT-TCMM Transitional Care Mgmt-Moderate 14:43:38 CDT CPT-70439 Venipuncture Draw Fee 10:33:47 CDT CPT-71032 BMP - LAB USE ONLY 10:33:46 CDT CPT-Cryo Cryotherapy 15:12:03 CDT CPT-88822 LS spine AP and Lat - XRAY USE ONLY 10:31:51 CDT 07/27 CPT-77390 Punch biopsy 1 lsn 20:40:09 CDT CPT-G0008 Administration of Influenza Virus Vaccine 10:04:48 EDGE GRINDER CPT-61855 Fluzone High-Dose Intramuscular Suspension 10:04:48 EDGE GRINDER CPT-52744 Ribs unilat w PA chst min 3V 10:45:40 CDT CPT-LR Lesion Removal 13:14:55 CDT CPT-Cryo Cryotherapy 13:14:55 CDT CPT-74061 Venipuncture Draw Fee 10:25:49 CDT CPT-65056 Administration single or combination vaccine inc oral 13 :22:14 EDGE GRINDER CPT-44327 Influenza High Dose age 65+ 13:22:14 EDGE GRINDER
--- OUTSIDE RECORDS SUMMARY | 2016-12-06 09:19 | XMS REPORT | Clinical Summary ---
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 Urinary frequency Actinic keratosis 702.0 Active [...] MG ORAL TABS 1 tab daily AZITHROMYCIN 68133658846 No Longer Active Gareth Cancino MD Active ZITHROMAX 250 MG TAB 2 po today, then 1 po q days 2-5 AZITHROMYCIN 77880234148 No Longer Active Tangela Forte Active IPRATROPIUM-ALBUTEROL 0.5-2.5 (3) MG/3ML INH SOLN nebulize 1 vial every 6hrs prn shortness of breath IPRATROPIUM-ALBUTEROL 77479148383 Active Gareth Cancino MD Active FENTANYL 25 MCG/HR PT72 Apply to clean, dry skin and change every 72 hours FENTANYL 03470467068 Active Gareth Cancino MD Active WELLBUTRIN SR 150 MG ORAL [id number]-ZCT take 1 tab po BID BUPROPION HCL 85686381103 No Longer Active Gareth Cancino MD Active ZOFRAN 4 MG ORAL TABS 1 by mouth every 6 hours prn nausea ONDANSETRON HCL 17866199790 Active Tangela Forte Active TRAMADOL HCL 50 MG TABS 1 po tid PRN TRAMADOL HCL 54637434205 Active Gareth Cancino MD Active HYDROCODONE-ACETAMINOPHEN 5-325 MG TABS 1 tab by mouth every 6 hours as needed for bck pain HYDROCODONE-ACETAMINOPHEN 49204952210 Active Gareth Cancino MD Active ALPRAZOLAM 0.25 MG TAB 1/2 to 1 tablet by mouth qhs prn ALPRAZOLAM 18716559956 No Longer Active Gareth Cancino MD Active CLOBETASOL PROPIONATE 0.05 % CREA apply to hand rash bid CLOBETASOL PROPIONATE 45928998787 No Longer Active Gareth Cancino MD Active BACTROBAN 2 % CREAM Apply to affected area BID MUPIROCIN CALCIUM 94449193145 No Longer Active Gareth Cancino MD Active LISINOPRIL 20 MG TABS 1 tablet by mouth daily for high blood pressure 10/14 LISINOPRIL 83785086734 Active Gareth Cancino MD Active BACTRIM DS 800-160 MG TAB 1 tab by mouth twice daily TRIMETHOPRIM-SULFAMETHOXAZOLE 56789298764 No Longer Active Gareth Cancino MD Active METOPROLOL SUCCINATE ER 100 MG [id number] 1 pill by mouth daily, for blood pressure METOPROLOL SUCCINATE 46322266057 Active Gareth Cancino MD Active KEFLEX 500 MG CAP 1 po TID x 10 days CEPHALEXIN 05288439395 No Longer Active Blanca Castillo APRN Active METOPROLOL SUCCINATE 50 MG TB24 1 tablet by mouth daily METOPROLOL SUCCINATE 03934317773 No Longer Active Gareth Cancino MD Active OMEPRAZOLE 20 MG TBEC Take one by mouth daily OMEPRAZOLE 24757339851 No Longer Active Gareth Cancino MD Active OMEPRAZOLE 40 MG CPDR 1 tab po qday for acid reflux. OMEPRAZOLE 04529432801 Active Mary Shah APRN Active LEVAQUIN 500 MG TAB 1 tablet by mouth daily LEVOFLOXACIN 50404513355 No Longer Active Gareth Cancino MD Active ALEVE 220 MG TAB 2 tab po qd NAPROXEN SODIUM 39960845495 Active Gareth Cancino MD Active ASPIRIN 81 MG CHEW TAB 1 tablet by mouth daily ASPIRIN 88043840467 Active Gareth Cancino MD Active VENTOLIN HFA 108 (90 BASE) MCG/ACT AERS 1-2 puffs four times a day PRN shortness of breath ALBUTEROL SULFATE 25858710250 Active Mary Shah RAYON CONER Active CENTRUM SILVER TABS 1 TAB PO DAILY MULTIPLE VITAMINS-MINERALS 64024179787 Active Gareth Cancino MD Active VITAMIN B12 100 MCG TABS 1 TAB PO DAILY CYANOCOBALAMIN 08443378051 Active Gareth Cancino MD Active CIPRO 500 MG TABS 1 TAB PO BID CIPROFLOXACIN HCL 62109000492 No Longer Active Gareth Cancino MD Active BACTRIM DS 800-160 MG TAB 1 tab by mouth twice daily TRIMETHOPRIM-SULFAMETHOXAZOLE 36540071058 No Longer Active Gareth Cancino MD Active PREDNISONE 20 MG TAB 1 tab po BID for 3 days, then 1 tab po qday for 3 days PREDNISONE 60984107008 No Longer Active Gareth Cancino MD Active FOLIC ACID 800 MCG TABS Take one by mouth daily FOLIC ACID 66017781353 No Longer Active Gareth Cancino MD Active VITAMIN B-6 250 MG TABS Take one by mouth daily PYRIDOXINE HCL 74926934756 No Longer Active Gareth Cancino MD Active B-12 1000 MCG CAPS Take one by mouth daily CYANOCOBALAMIN 60313628334 No Longer Active Gareth Cancino MD Active DOXYCYCLINE HYCLATE 100 MG CAP 1 cap by mouth twice daily DOXYCYCLINE HYCLATE 13586782388 No Longer Active Gareth Cancino MD Active PREDNISONE 20 MG TAB 1 po bid 3 days, then 1 po q day 3 days 2011 PREDNISONE 89602713729 No Longer Active Gareth Cancino MD Active CHANTIX STARTING MONTH RUBEN 0.5 MG X 11 & 1 MG X 42 TABS 0.5mg daily for 3 days , then 0.5mg BID for 4 days, then 1mg BID VARENICLINE TARTRATE 62610631723 No Longer Active Gareth Cancino MD Active SIMVASTATIN 40 MG TABS Take one by mouth daily SIMVASTATIN 76060884272 Active Gareth Cancino MD Active TRIAMTERENE-HCTZ 37.5-25 MG CAPS Take one by mouth daily TRIAMTERENE- HCTZ 52113519802 Active Gareth Cancino MD Active CHANTIX STARTING [...] 3 days 2011 PREDNISONE 20 MG TAB 762617 PREDNISONE Inactive DOXYCYCLINE HYCLATE 100 MG CAP 1 cap by mouth twice daily DOXYCYCLINE HYCLATE 100 MG CAP 2321221 DOXYCYCLINE HYCLATE Inactive B-12 1000 MCG CAPS Take one by mouth daily B-12 1000 MCG CAPS CYANOCOBALAMIN Inactive VITAMIN B-6 250 MG TABS Take one by mouth daily VITAMIN B-6 250 MG TABS PYRIDOXINE HCL Inactive FOLIC ACID 800 MCG TABS Take one by mouth daily FOLIC ACID 800 MCG TABS 809686 FOLIC ACID Inactive CIPRO 500 MG TABS 1 TAB PO BID CIPRO 500 MG TABS 011112 CIPROFLOXACIN HCL Inactive OMEPRAZOLE 20 MG TBEC Take one by mouth daily OMEPRAZOLE 20 MG TBEC 723819 OMEPRAZOLE Inactive METOPROLOL SUCCINATE 50 MG TB24 1 tablet by mouth daily METOPROLOL SUCCINATE 50 MG TB24 METOPROLOL SUCCINATE Inactive BACTROBAN 2 % CREAM Apply to affected area BID BACTROBAN 2 % CREAM 520973 MUPIROCIN CALCIUM Inactive CLOBETASOL PROPIONATE 0.05 % CREA apply to hand rash bid 2016/06/ 06 CLOBETASOL PROPIONATE 0.05 % CREA 685794 CLOBETASOL PROPIONATE Inactive ALPRAZOLAM 0.25 MG TAB 1/2 to 1 tablet by mouth qhs prn ALPRAZOLAM 0.25 MG TAB 712084 ALPRAZOLAM Inactive WELLBUTRIN SR 150 MG ORAL [id number] take 1 tab po BID WELLBUTRIN SR 150 MG ORAL [id number] BUPROPION HCL Inactive AZITHROMYCIN 250 MG ORAL TABS 1 tab daily AZITHROMYCIN 250 MG ORAL TABS 8124472 AZITHROMYCIN Inactive PREDNISONE 20 MG TAB 1 tab po BID for 3 days, then 1 tab po qday for 3 days PREDNISONE 20 MG TAB 762705 PREDNISONE Inactive BACTRIM DS 800-160 MG TAB 1 tab by mouth twice daily BACTRIM DS 800-160 MG TAB 847276 TRIMETHOPRIM-SULFAMETHOXAZOLE Inactive LEVAQUIN 500 MG TAB 1 tablet by mouth daily LEVAQUIN 500 MG TAB 209638 LEVOFLOXACIN Inactive KEFLEX 500 MG CAP 1 po TID x 10 days KEFLEX 500 MG CAP 034092 CEPHALEXIN Inactive BACTRIM DS 800-160 MG TAB 1 tab by mouth twice daily BACTRIM DS 800-160 MG TAB 085613 TRIMETHOPRIM-SULFAMETHOXAZOLE Inactive ZITHROMAX 250 MG TAB 2 po today, then 1 po q days 2-5 ZITHROMAX 250 MG TAB 9467426 AZITHROMYCIN Inactive Vital Signs Date Name Value [...] Panel - Chemistry sodium, serum 133 mmol/L 381-772 5836/08/24 potassium, serum 4.4 mmol/L 3.5-5.2 chloride, serum 95 mmol/L 98-107 carbon dioxide, venous blood 33.0 mmol/L 21.0-32.0 blood glucose 107 mg/dL 65-110 calcium, serum 8.8 mg/dL 8.5-10.1 urea nitrogen, blood 12 mg/dL 7-18 creatinine, serum 0.69 mg/dL 0.55-1.30 Lab Report: CBC, Basic Metabolic Panel - Chemistry sodium, serum 132 mmol/L 287-621 9570/10/12 potassium, serum 4.7 mmol/L 3.5-5.2 chloride, serum [...] CBC - Chemistry sodium, serum 136 mmol/L 272-282 2118/11/01 carbon dioxide, venous blood 32.1 mmol/L 21.0-32.0 [...] mg/g mg/g{creat} 0-29 cholesterol, serum 195 mg/dL 079-287 1198/12/02 triglyceride, serum, fasting 74 mg/dL 30-200 HDL cholesterol, serum 52 mg/dL 32-96 LDL cholesterol, serum 128 mg/dL 0-130 sodium, serum 134 mmol/L 202-033 2128/12/02 carbon dioxide, venous blood 30.3 mmol/L 21.0-32.0 [...] 5.0-8.5 Encounters Code Encounter Date Provider Facility CPT-03145 Level 3 Est. Patient 10:34:55 CDT Gareth Cancino MD [facility] CPT-14045 Level 4 Est. Patient 09:00:18 CDT Gareth Cancino MD [facility] CPT-55285 Level 3 Est. Patient 15:12:03 CDT Gareth Cancino MD [facility] CPT-23028 Level 3 Est. Patient 23:08:20 CDT Gareth Cancino MD [facility] CPT-47705 Level 4 Est. Patient 20:40:10 CDT Gareth Cancino MD [facility] CPT-08157 Level 4 Est. Patient 19:50:11 CDT Gareth Cancino MD [facility] CPT-42372 Level 3 Est. Patient 11:00:13 CDT Gareth Cancino MD [facility] CPT-43639 Level 4 Est. Patient 11:20:21 CDT Gareth Cancino MD [facility] CPT-91322 Level 4 Est. Patient 09:22:18 SUBMERSIBLE PILOT Gareth Cancino MD [facility] CPT-83106 Level 3 Est. Patient 09:48:04 CDT Gareth Cancino MD [facility] CPT-39962 Level 3 Est. Patient 10:13:16 CDT Gareth Cancino MD [facility] CPT-46050 Level 2 Est. Patient 18:36:56 CDT Gareth Cancino MD [facility] CPT-68982 Level 4 Est. Patient 13:50:53 CDT Gareth Cancino MD [facility] CPT-18386 Level 3 Est. Patient 14:58:33 SUBMERSIBLE PILOT Gareth Cancino MD [facility] CPT-01134 Level 4 Est. Patient 09:25:57 CDT Gareth Cancino MD [facility] CPT-46191 Level 3 Est. Patient 20:39:33 CDT Noman Edwards DO [facility] CPT-30945 Level 2 Est. Patient 13:17:39 CDT Gareth Cancino MD [facility] CPT-04537 Level 3 Est. Patient 13:37:20 CDT Gareth Cancino MD [facility] CPT-98885 Level 3 Est. Patient 18:09:08 CDT Gareth Cancino MD [facility] CPT-11883 Level 4 Est. Patient 09:59:07 CDT Gareth Cancino MD [facility] Procedures Code Procedure Name Date Entry Date Standard Description CPT-70427 CMP - LAB USE ONLY 16:31:15 CDT CPT-87758 CBC - LAB USE ONLY 16:31:14 CDT CPT-35817 Venipuncture Draw Fee 16:31:14 CDT CPT-67615 BMP - LAB USE ONLY 14:37:27 CDT CPT-44429 CBC - LAB USE ONLY 14:37:27 CDT CPT-15890 Venipuncture Draw Fee 14:37:27 CDT CPT-TCMM Transitional Care Mgmt-Moderate 14:43:38 CDT CPT-50327 Venipuncture Draw Fee 10:33:47 CDT CPT-95569 BMP - LAB USE ONLY 10:33:46 CDT CPT-Cryo Cryotherapy 15:12:03 CDT CPT-80509 LS spine AP and Lat - XRAY USE ONLY 10:31:51 CDT 07/27 CPT-72527 Punch biopsy 1 lsn 20:40:09 CDT CPT-G0008 Administration of Influenza Virus Vaccine 10:04:48 SUBMERSIBLE PILOT CPT-96841 Fluzone High-Dose Intramuscular Suspension 10:04:48 SUBMERSIBLE PILOT CPT-31440 Ribs unilat w PA chst min 3V 10:45:40 CDT CPT-LR Lesion Removal 13:14:55 CDT CPT-Cryo Cryotherapy 13:14:55 CDT CPT-40965 Venipuncture Draw Fee 10:25:49 CDT CPT-35555 Administration single or combination vaccine inc oral 13 :22:14 SUBMERSIBLE PILOT CPT-12110 Influenza High Dose age 65+ 13:22:14 SUBMERSIBLE PILOT
--- OUTSIDE RECORDS SUMMARY | 2016-12-06 09:20 | XMS REPORT | Clinical Summary ---
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 Urinary frequency Actinic keratosis 702.0 Active Gareth [...] MG ORAL TABS 1 tab daily AZITHROMYCIN 03543818188 No Longer Active Gareth Cancino MD Active ZITHROMAX 250 MG TAB 2 po today, then 1 po q days 2-5 AZITHROMYCIN 65546001916 No Longer Active Tangela Forte Active IPRATROPIUM-ALBUTEROL 0.5-2.5 (3) MG/3ML INH SOLN nebulize 1 vial every 6hrs prn shortness of breath IPRATROPIUM-ALBUTEROL 03079265936 Active Gareth Cancino MD Active FENTANYL 25 MCG/HR PT72 Apply to clean, dry skin and change every 72 hours FENTANYL 86259835454 Active Gareth Cancino MD Active WELLBUTRIN SR 150 MG ORAL [id number]-ELS take 1 tab po BID BUPROPION HCL 14481688275 No Longer Active Gareth Cancino MD Active ZOFRAN 4 MG ORAL TABS 1 by mouth every 6 hours prn nausea ONDANSETRON HCL 00139856872 Active Tangela Forte Active TRAMADOL HCL 50 MG TABS 1 po tid PRN TRAMADOL HCL 84299208447 Active Gareth Cancino MD Active HYDROCODONE-ACETAMINOPHEN 5-325 MG TABS 1 tab by mouth every 6 hours as needed for bck pain HYDROCODONE-ACETAMINOPHEN 27370599558 Active Gareth Cancino MD Active ALPRAZOLAM 0.25 MG TAB 1/2 to 1 tablet by mouth qhs prn ALPRAZOLAM 45013438625 No Longer Active Gareth Cancino MD Active CLOBETASOL PROPIONATE 0.05 % CREA apply to hand rash bid CLOBETASOL PROPIONATE 00044872976 No Longer Active Gareth Cancino MD Active BACTROBAN 2 % CREAM Apply to affected area BID MUPIROCIN CALCIUM 02006129658 No Longer Active Gareth Cancino MD Active LISINOPRIL 20 MG TABS 1 tablet by mouth daily for high blood pressure 10/14 LISINOPRIL 79008228554 Active Gareth Cancino MD Active BACTRIM DS 800-160 MG TAB 1 tab by mouth twice daily TRIMETHOPRIM-SULFAMETHOXAZOLE 31805922347 No Longer Active Gareth Cancino MD Active METOPROLOL SUCCINATE ER 100 MG SN85T-BVD 1 pill by mouth daily, for blood pressure METOPROLOL SUCCINATE 47752323584 Active Gareth Cancino MD Active KEFLEX 500 MG CAP 1 po TID x 10 days CEPHALEXIN 30520130200 No Longer Active Blanca Castillo APRN Active METOPROLOL SUCCINATE 50 MG TB24 1 tablet by mouth daily METOPROLOL SUCCINATE 46955871089 No Longer Active Gareth Cancino MD Active OMEPRAZOLE 20 MG TBEC Take one by mouth daily OMEPRAZOLE 07922691081 No Longer Active aGreth Cancino MD Active OMEPRAZOLE 40 MG CPDR 1 tab po qday for acid reflux. 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 CENTRUM SILVER TABS 1 TAB PO DAILY MULTIPLE VITAMINS-MINERALS 17871835962 Active Gareth Cancino MD Active VITAMIN B12 100 MCG TABS 1 TAB PO DAILY CYANOCOBALAMIN 78201849104 Active Gareth Cancino MD Active CIPRO 500 MG TABS 1 TAB PO BID CIPROFLOXACIN HCL 20687452745 No Longer Active Gareth Cancino MD Active BACTRIM DS 800-160 MG TAB 1 tab by mouth twice daily TRIMETHOPRIM-SULFAMETHOXAZOLE 12996107930 No Longer Active Gareth Cancino MD Active PREDNISONE 20 MG TAB 1 tab po BID for 3 days, then 1 tab po qday for 3 days PREDNISONE 61172644140 No Longer Active Gareth Cancino MD Active FOLIC ACID 800 MCG TABS Take one by mouth daily FOLIC ACID 18512840846 No Longer Active Gareth Cancino MD Active VITAMIN B-6 250 MG TABS Take one by mouth daily PYRIDOXINE HCL 64512086716 No Longer Active Gareth Cancino MD Active B-12 1000 MCG CAPS Take one by mouth daily CYANOCOBALAMIN 04139173464 No Longer Active Gareth Cancino MD Active DOXYCYCLINE HYCLATE 100 MG CAP 1 cap by mouth twice daily DOXYCYCLINE HYCLATE 98277712176 No Longer Active Gareth Cancino MD Active PREDNISONE 20 MG TAB 1 po bid 3 days, then 1 po q day 3 days 2011 PREDNISONE 42169594434 No Longer Active Gareth Cancino MD Active CHANTIX STARTING MONTH RUBEN 0.5 MG X 11 & 1 MG X 42 TABS 0.5mg daily for 3 days , then 0.5mg BID for 4 days, then 1mg BID VARENICLINE TARTRATE 04835526028 No Longer Active Gareth Cancino MD Active SIMVASTATIN 40 MG TABS Take one by mouth daily SIMVASTATIN 64598920480 Active Gareth Cancino MD Active TRIAMTERENE-HCTZ 37.5-25 MG CAPS Take one by mouth daily TRIAMTERENE- HCTZ 32596486079 Active Gareth Cancino MD Active CHANTIX STARTING [...] 3 days 2011 PREDNISONE 20 MG TAB 141885 PREDNISONE Inactive DOXYCYCLINE HYCLATE 100 MG CAP 1 cap by mouth twice daily DOXYCYCLINE HYCLATE 100 MG CAP 7134954 DOXYCYCLINE HYCLATE Inactive B-12 1000 MCG CAPS Take one by mouth daily B-12 1000 MCG CAPS CYANOCOBALAMIN Inactive VITAMIN B-6 250 MG TABS Take one by mouth daily VITAMIN B-6 250 MG TABS PYRIDOXINE HCL Inactive FOLIC ACID 800 MCG TABS Take one by mouth daily FOLIC ACID 800 MCG TABS 396880 FOLIC ACID Inactive CIPRO 500 MG TABS 1 TAB PO BID CIPRO 500 MG TABS 727948 CIPROFLOXACIN HCL Inactive OMEPRAZOLE 20 MG TBEC Take one by mouth daily OMEPRAZOLE 20 MG TBEC 502544 OMEPRAZOLE Inactive METOPROLOL SUCCINATE 50 MG TB24 1 tablet by mouth daily METOPROLOL SUCCINATE 50 MG TB24 METOPROLOL SUCCINATE Inactive BACTROBAN 2 % CREAM Apply to affected area BID BACTROBAN 2 % CREAM 676168 MUPIROCIN CALCIUM Inactive CLOBETASOL PROPIONATE 0.05 % CREA apply to hand rash bid 2016/06/ 06 CLOBETASOL PROPIONATE 0.05 % CREA 566111 CLOBETASOL PROPIONATE Inactive ALPRAZOLAM 0.25 MG TAB 1/2 to 1 tablet by mouth qhs prn ALPRAZOLAM 0.25 MG TAB 520356 ALPRAZOLAM Inactive WELLBUTRIN SR 150 MG ORAL [id number] take 1 tab po BID WELLBUTRIN SR 150 MG ORAL [id number] BUPROPION HCL Inactive AZITHROMYCIN 250 MG ORAL TABS 1 tab daily AZITHROMYCIN 250 MG ORAL TABS 0360622 AZITHROMYCIN Inactive PREDNISONE 20 MG TAB 1 tab po BID for 3 days, then 1 tab po qday for 3 days PREDNISONE 20 MG TAB 741914 PREDNISONE Inactive BACTRIM DS 800-160 MG TAB 1 tab by mouth twice daily BACTRIM DS 800-160 MG TAB 553602 TRIMETHOPRIM-SULFAMETHOXAZOLE Inactive LEVAQUIN 500 MG TAB 1 tablet by mouth daily LEVAQUIN 500 MG TAB 793964 LEVOFLOXACIN Inactive KEFLEX 500 MG CAP 1 po TID x 10 days KEFLEX 500 MG CAP 668399 CEPHALEXIN Inactive BACTRIM DS 800-160 MG TAB 1 tab by mouth twice daily BACTRIM DS 800-160 MG TAB 146988 TRIMETHOPRIM-SULFAMETHOXAZOLE Inactive ZITHROMAX 250 MG TAB 2 po today, then 1 po q days 2-5 ZITHROMAX 250 MG TAB 7351206 AZITHROMYCIN Inactive Vital Signs Date Name Value [...] Panel - Chemistry sodium, serum 133 mmol/L 715-833 3668/08/24 potassium, serum 4.4 mmol/L 3.5-5.2 chloride, serum 95 mmol/L 98-107 carbon dioxide, venous blood 33.0 mmol/L 21.0-32.0 blood glucose 107 mg/dL 65-110 calcium, serum 8.8 mg/dL 8.5-10.1 urea nitrogen, blood 12 mg/dL 7-18 creatinine, serum 0.69 mg/dL 0.55-1.30 Lab Report: CBC, Basic Metabolic Panel - Chemistry sodium, serum 132 mmol/L 923-644 9369/10/12 potassium, serum 4.7 mmol/L 3.5-5.2 chloride, serum [...] CBC - Chemistry sodium, serum 136 mmol/L 902-119 3880/11/01 carbon dioxide, venous blood 32.1 mmol/L 21.0-32.0 [...] mg/g mg/g{creat} 0-29 cholesterol, serum 195 mg/dL 700-001 1330/12/02 triglyceride, serum, fasting 74 mg/dL 30-200 HDL cholesterol, serum 52 mg/dL 32-96 LDL cholesterol, serum 128 mg/dL 0-130 sodium, serum 134 mmol/L 008-061 7746/12/02 carbon dioxide, venous blood 30.3 mmol/L 21.0-32.0 [...] 5.0-8.5 Encounters Code Encounter Date Provider Facility CPT-75977 Level 3 Est. Patient 10:34:55 CDT Gareth Cancino MD [facility] CPT-96568 Level 4 Est. Patient 09:00:18 CDT Gareth Cancino MD [facility] CPT-81422 Level 3 Est. Patient 15:12:03 CDT Gareth Cancino MD [facility] CPT-58922 Level 3 Est. Patient 23:08:20 CDT Gareth Cancino MD [facility] CPT-35811 Level 4 Est. Patient 20:40:10 CDT Gareth Cancino MD [facility] CPT-60596 Level 4 Est. Patient 19:50:11 CDT Gareth Cancino MD [facility] CPT-17801 Level 3 Est. Patient 11:00:13 CDT Gareth Cancino MD [facility] CPT-03908 Level 4 Est. Patient 11:20:21 CDT Gareth Cancino MD [facility] CPT-96908 Level 4 Est. 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 Patient 09:48:04 CDT Gareth Cancino MD [facility] CPT-69318 Level 3 Est. Patient 10:13:16 CDT Gareth Cancino MD [facility] CPT-44221 Level 2 Est. Patient 18:36:56 CDT Gareth Cancino MD [facility] CPT-73395 Level 4 Est. Patient 13:50:53 CDT Gareth Cancino MD [facility] CPT-35158 Level 3 Est. Patient 14:58:33 PUBLIC HEALTH EPIDEMIOLOGIST Gareth Cancino MD [facility] CPT-69204 Level 4 Est. Patient 09:25:57 CDT Gareth Cancino MD [facility] CPT-21346 Level 3 Est. Patient 20:39:33 CDT Noman Edwards DO [facility] CPT-93956 Level 2 Est. Patient 13:17:39 CDT Gareth Cancino MD [facility] CPT-19308 Level 3 Est. Patient 13:37:20 CDT Gareth Cancino MD [facility] CPT-02138 Level 3 Est. Patient 18:09:08 CDT Gareth Cancino MD [facility] CPT-75376 Level 4 Est. Patient 09:59:07 CDT Gareth Cancino MD [facility] Procedures Code Procedure Name Date Entry Date Standard Description CPT-33084 CMP - LAB USE ONLY 16:31:15 CDT CPT-72269 CBC - LAB USE ONLY 16:31:14 CDT CPT-89633 Venipuncture Draw Fee 16:31:14 CDT CPT-99721 BMP - LAB USE ONLY 14:37:27 CDT CPT-54820 CBC - LAB USE ONLY 14:37:27 CDT CPT-68949 Venipuncture Draw Fee 14:37:27 CDT CPT-TCMM Transitional Care Mgmt-Moderate 14:43:38 CDT CPT-26089 Venipuncture Draw Fee 10:33:47 CDT CPT-46526 BMP - LAB USE ONLY 10:33:46 CDT CPT-Cryo Cryotherapy 15:12:03 CDT CPT-86165 LS spine AP and Lat - XRAY USE ONLY 10:31:51 CDT 07/27 CPT-00679 Punch biopsy 1 lsn 20:40:09 CDT CPT-G0008 Administration of Influenza Virus Vaccine 10:04:48 PUBLIC HEALTH EPIDEMIOLOGIST CPT-81561 Fluzone High-Dose Intramuscular Suspension 10:04:48 PUBLIC HEALTH EPIDEMIOLOGIST CPT-96404 Ribs unilat w PA chst min 3V 10:45:40 CDT CPT-LR Lesion Removal 13:14:55 CDT CPT-Cryo Cryotherapy 13:14:55 CDT CPT-32075 Venipuncture Draw Fee 10:25:49 CDT CPT-10992 Administration single or combination vaccine inc oral 13 :22:14 PUBLIC HEALTH EPIDEMIOLOGIST CPT-66505 Influenza High Dose age 65+ 13:22:14 PUBLIC HEALTH EPIDEMIOLOGIST
--- OUTSIDE RECORDS SUMMARY | 2016-12-06 09:20 | XMS REPORT | Clinical Summary ---
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 Urinary frequency Actinic keratosis 702.0 Active Gareth [...] every 6hrs prn shortness of breath IPRATROPIUM-ALBUTEROL 15762697232 Active Gareth Cancino MD Active FENTANYL 25 MCG/HR PT72 Apply to clean, dry skin and change every 72 hours FENTANYL 09557851170 Active Gareth Cancino MD Active AZITHROMYCIN 250 MG ORAL TABS 1 tab daily AZITHROMYCIN 28673875513 Active Graeth Cancino MD Active WELLBUTRIN SR 150 MG ORAL [id number] take 1 tab po BID BUPROPION HCL 89562318273 No Longer Active Gareth Cancino MD Active ZOFRAN 4 MG ORAL TABS 1 by mouth every 6 hours prn nausea ONDANSETRON HCL 53561495782 Active Tangela Forte Active TRAMADOL HCL 50 MG TABS 1 po tid PRN TRAMADOL HCL 23006391682 Active Danuta Modi Active HYDROCODONE-ACETAMINOPHEN 5-325 MG TABS 1 tab by mouth every 6 hours as needed for bck pain HYDROCODONE-ACETAMINOPHEN 78039924415 Active Gareth Cancino MD Active ALPRAZOLAM 0.25 MG TAB 1/2 to 1 tablet by mouth qhs prn ALPRAZOLAM 13973890985 No Longer Active Gareth Cancino MD Active CLOBETASOL PROPIONATE 0.05 % CREA apply to hand rash bid CLOBETASOL PROPIONATE 85585225902 No Longer Active Gareth Cancino MD Active BACTROBAN 2 % CREAM Apply to affected area BID MUPIROCIN CALCIUM 44078611756 No Longer Active Gareth Cancino MD Active LISINOPRIL 20 MG TABS 1 tablet by mouth daily for high blood pressure 10/14 LISINOPRIL 12380335281 Active Gareth Cancino MD Active BACTRIM DS 800-160 MG TAB 1 tab by mouth twice daily TRIMETHOPRIM-SULFAMETHOXAZOLE 12326733516 No Longer Active Gareth Cancino MD Active METOPROLOL SUCCINATE ER 100 MG [id number] 1 pill by mouth daily, for blood pressure METOPROLOL SUCCINATE 65479118926 Active Gareth Cancino MD Active KEFLEX 500 MG CAP 1 po TID x 10 days CEPHALEXIN 18060281941 No Longer Active Blanca Castillo APRN Active METOPROLOL SUCCINATE 50 MG TB24 1 tablet by mouth daily METOPROLOL SUCCINATE 10444954344 No Longer Active Gareth Cancino MD Active OMEPRAZOLE 20 MG TBEC Take one by mouth daily OMEPRAZOLE 47173735726 No Longer Active Gareth Cancino MD Active OMEPRAZOLE 40 MG CPDR 1 tab po qday for acid reflux. OMEPRAZOLE 46937247589 Active Mary Shah APRN Active LEVAQUIN 500 MG TAB 1 tablet by mouth daily LEVOFLOXACIN 43921553289 No Longer Active Gareth Cancino MD Active ALEVE 220 MG TAB 2 tab po qd NAPROXEN SODIUM 81360589764 Active Gareth Cancino MD Active ASPIRIN 81 MG CHEW TAB 1 tablet by mouth daily ASPIRIN 66866320938 Active Gareth Cancino MD Active VENTOLIN HFA 108 (90 BASE) MCG/ACT AERS 1-2 puffs four times a day PRN shortness of breath ALBUTEROL SULFATE 48670574389 Active Mary Shah APRN Active CENTRUM SILVER TABS 1 TAB PO DAILY MULTIPLE VITAMINS-MINERALS 96354807263 Active Gareth Cancino MD Active VITAMIN B12 100 MCG TABS 1 TAB PO DAILY CYANOCOBALAMIN 65218792442 Active Gareth Cancino MD Active CIPRO 500 MG TABS 1 TAB PO BID CIPROFLOXACIN HCL 12097947460 No Longer Active Gareth Cancino MD Active BACTRIM DS 800-160 MG TAB 1 tab by mouth twice daily TRIMETHOPRIM-SULFAMETHOXAZOLE 38867445719 No Longer Active Gareth Cancino MD Active PREDNISONE 20 MG TAB 1 tab po BID for 3 days, then 1 tab po qday for 3 days PREDNISONE 25073076663 No Longer Active Gareth Cancino MD Active FOLIC ACID 800 MCG TABS Take one by mouth daily FOLIC ACID 55889031988 No Longer Active Gareth Cancino MD Active VITAMIN B-6 250 MG TABS Take one by mouth daily PYRIDOXINE HCL 73945227111 No Longer Active Gareth Cancino MD Active B-12 1000 MCG CAPS Take one by mouth daily CYANOCOBALAMIN 17782595455 No Longer Active Gareth Cancino MD Active DOXYCYCLINE HYCLATE 100 MG CAP 1 cap by mouth twice daily DOXYCYCLINE HYCLATE 53633741911 No Longer Active Gareth Cancino MD Active PREDNISONE 20 MG TAB 1 po bid 3 days, then 1 po q day 3 days 2011 PREDNISONE 54954585786 No Longer Active Gareth Cancino MD Active CHANTIX STARTING MONTH RUBEN 0.5 MG X 11 & 1 MG X 42 TABS 0.5mg daily for 3 days , then 0.5mg BID for 4 days, then 1mg BID VARENICLINE TARTRATE 07106851732 No Longer Active Gareth Cancino MD Active SIMVASTATIN 40 MG TABS Take one by mouth daily SIMVASTATIN 10048116789 Active Gareth Cancino MD Active TRIAMTERENE-HCTZ 37.5-25 MG CAPS Take one by mouth daily TRIAMTERENE- HCTZ 36047212417 Active Gareth Cancino MD Active CHANTIX STARTING [...] 3 days 2011 PREDNISONE 20 MG TAB 588207 PREDNISONE Inactive DOXYCYCLINE HYCLATE 100 MG CAP 1 cap by mouth twice daily DOXYCYCLINE HYCLATE 100 MG CAP 3339128 DOXYCYCLINE HYCLATE Inactive B-12 1000 MCG CAPS Take one by mouth daily B-12 1000 MCG CAPS CYANOCOBALAMIN Inactive VITAMIN B-6 250 MG TABS Take one by mouth daily VITAMIN B-6 250 MG TABS PYRIDOXINE HCL Inactive FOLIC ACID 800 MCG TABS Take one by mouth daily FOLIC ACID 800 MCG TABS 700309 FOLIC ACID Inactive CIPRO 500 MG TABS 1 TAB PO BID CIPRO 500 MG TABS 743367 CIPROFLOXACIN HCL Inactive OMEPRAZOLE 20 MG TBEC Take one by mouth daily OMEPRAZOLE 20 MG TBEC 526869 OMEPRAZOLE Inactive METOPROLOL SUCCINATE 50 MG TB24 1 tablet by mouth daily METOPROLOL SUCCINATE 50 MG TB24 METOPROLOL SUCCINATE Inactive BACTROBAN 2 % CREAM Apply to affected area BID BACTROBAN 2 % CREAM 196588 MUPIROCIN CALCIUM Inactive CLOBETASOL PROPIONATE 0.05 % CREA apply to hand rash bid CLOBETASOL PROPIONATE 0.05 % CREA 531424 CLOBETASOL PROPIONATE Inactive ALPRAZOLAM 0.25 MG TAB 1/2 to 1 tablet by mouth qhs prn ALPRAZOLAM 0.25 MG TAB 272194 ALPRAZOLAM Inactive WELLBUTRIN SR 150 MG ORAL [id number] take 1 tab po BID WELLBUTRIN SR 150 MG ORAL [id number]-AKT BUPROPION HCL Inactive PREDNISONE 20 MG TAB 1 tab po BID for 3 days, then 1 tab po qday for 3 days PREDNISONE 20 MG TAB 951785 PREDNISONE Inactive BACTRIM DS 800-160 MG TAB 1 tab by mouth twice daily BACTRIM DS 800-160 MG TAB 517874 TRIMETHOPRIM-SULFAMETHOXAZOLE Inactive LEVAQUIN 500 MG TAB 1 tablet by mouth daily LEVAQUIN 500 MG TAB 814866 LEVOFLOXACIN Inactive KEFLEX 500 MG CAP 1 po TID x 10 days KEFLEX 500 MG CAP 501128 CEPHALEXIN Inactive BACTRIM DS 800-160 MG TAB [...] Panel - Chemistry sodium, serum 133 mmol/L 753-434 6211/08/24 potassium, serum 4.4 mmol/L 3.5-5.2 chloride, serum 95 mmol/L 98-107 carbon dioxide, venous blood 33.0 mmol/L 21.0-32.0 blood glucose 107 mg/dL 65-110 calcium, serum 8.8 mg/dL 8.5-10.1 urea nitrogen, blood 12 mg/dL 7-18 creatinine, serum 0.69 mg/dL 0.55-1.30 Lab Report: CBC, Basic Metabolic Panel - Chemistry sodium, serum 132 mmol/L 523-172 8423/10/12 potassium, serum 4.7 mmol/L 3.5-5.2 chloride, serum [...] Panel, CBC W/DIFF, MICROALB/CRE ... - Chemistry creatinine, serum 0.76 mg/dL 0.55-1.30 alanine aminotransferase (SGPT), serum 24 U/L 12-78 aspartate aminotransferase (SGOT), serum 19 U/L 15-37 calcium, serum 9.2 mg/dL 8.5-10.1 bilirubin, serum, total 0.50 mg/dL 0.00-1.00 albumin/creatinine ratio, urine < 30 mg/g mg/g{creat} 0-29 sodium, serum 134 mmol/L 582-214 0426/12/02 LDL cholesterol, serum 128 mg/dL 0-130 HDL cholesterol, serum 52 mg/dL 32-96 triglyceride, serum, fasting 74 mg/dL 30-200 cholesterol, serum 195 mg/dL 442-679 0471/12/02 urea nitrogen, blood 13 mg/dL 7-18 blood glucose 103 mg/dL 65-110 chloride, serum 97 mmol/L 98-107 potassium, serum 5.2 mmol/L 3.5-5.2 carbon dioxide, venous blood 30.3 mmol/L 21.0-32.0 Lab Report: Lipid Panel, Comp. Metabolic Panel, [...] 1.015 1.000-1.030 pH, urine, semiquantitative 7.5 5.0-8.5 urobilinogen, urine, semiquantitative (dipstick) 0.2 Normal leukocyte esterase, urine, by dipstick Negative Negative nitrite, urine, semiquantitative Negative Negative Encounters Code Encounter Date Provider Facility CPT-32403 Level 4 Est. Patient 09:00:18 CDT Gareth Cancino MD [facility] CPT-29808 Level 3 Est. Patient 15:12:03 CDT Gareth Cancino MD [facility]-07865 Level 3 Est. Patient 23:08:20 CDT Gareth Cancino MD [facility]-20589 Level 4 Est. Patient 20:40:10 CDT Gareth Cancino MD [facility] CPT-17694 Level 4 Est. Patient 19:50:11 CDT Gareth Cancino MD [facility] CPT-87219 Level 3 Est. Patient 11:00:13 CDT Gareth Cancino MD [facility] CPT-03898 Level 4 Est. Patient 11:20:21 CDT Gareth Cancino MD [facility] CPT-88728 Level 4 Est. Patient 09:22:18 DISTRIBUTION SPEC Gareth Cancino MD [facility] CPT-56828 Level 3 Est. Patient 09:48:04 CDT Gareth Cancino MD [facility] CPT-11881 Level 3 Est. Patient 10:13:16 CDT Gareth Cancino MD [facility]-17790 Level 2 Est. Patient 18:36:56 CDT Gareth Cancino MD [facility] CPT-47067 Level 4 Est. Patient 13:50:53 CDT Gareth Cancino MD [facility]-32378 Level 3 Est. Patient 14:58:33 DISTRIBUTION SPEC Gareth Cancino MD [facility] CPT-42628 Level 4 Est. Patient 09:25:57 CDT Gareth Cancino MD [facility] CPT-65060 Level 3 Est. Patient 20:39:33 CDT Noman Edwards DO [facility] CPT-37744 Level 2 Est. Patient 13:17:39 CDT Gareth Cancino MD [facility] CPT-08803 Level 3 Est. Patient 13:37:20 CDT Gareth Cancino MD [facility] CPT-50352 Level 3 Est. Patient 18:09:08 CDT Gareth Cancino MD [facility] CPT-21371 Level 4 Est. Patient 09:59:07 CDT Gareth Cancino MD [facility] Procedures Code Procedure Name Date Entry Date Standard Description CPT-38302 BMP - LAB USE ONLY 14:37:27 CDT CPT-08962 CBC - LAB USE ONLY 14:37:27 CDT CPT-64190 Venipuncture Draw Fee 14:37:27 CDT CPT-TCMM Transitional Care Mgmt-Moderate 14:43:38 CDT CPT-38317 Venipuncture Draw Fee 10:33:47 CDT CPT-88419 BMP - LAB USE ONLY 10:33:46 CDT CPT-Cryo Cryotherapy 15:12:03 CDT CPT-23205 LS spine AP and Lat - XRAY USE ONLY 10:31:51 CDT 07/27 CPT-11309 Punch biopsy 1 lsn 20:40:09 CDT CPT-G0008 Administration of Influenza Virus Vaccine 10:04:48 DISTRIBUTION SPEC CPT-94053 Fluzone High-Dose Intramuscular Suspension 10:04:48 DISTRIBUTION SPEC CPT-31375 Maximus prieto w PA chst min 3V 10:45:40 CDT CPT-LR Lesion Removal 13:14:55 CDT CPT-Cryo Cryotherapy 13:14:55 CDT CPT-70941 Venipuncture Draw Fee 10:25:49 CDT CPT-65127 Administration single or combination vaccine inc oral 13 :22:14 DISTRIBUTION SPEC CPT-16013 Influenza High Dose age 65+ 13:22:14 DISTRIBUTION SPEC
--- OUTSIDE RECORDS SUMMARY | 2016-12-06 09:21 | XMS REPORT | Clinical Summary ---
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 Urinary frequency Actinic keratosis 702.0 Active Gareth [...] then 1 po q days 2-5 AZITHROMYCIN 38566985077 Active Tangela Forte Active IPRATROPIUM-ALBUTEROL 0.5-2.5 (3) MG/3ML INH SOLN nebulize 1 vial every 6hrs prn shortness of breath IPRATROPIUM-ALBUTEROL 14206274098 Active Gareth Cancino MD Active FENTANYL 25 MCG/HR PT72 Apply to clean, dry skin and change every 72 hours FENTANYL 92996980207 Active Gareth Cancino MD Active AZITHROMYCIN 250 MG ORAL TABS 1 tab daily AZITHROMYCIN 81611142463 Active Gareth Cancino MD Active WELLBUTRIN SR 150 MG ORAL [id number] take 1 tab po BID BUPROPION HCL 87532133418 No Longer Active Gareth Cancino MD Active ZOFRAN 4 MG ORAL TABS 1 by mouth every 6 hours prn nausea ONDANSETRON HCL 83601052567 Active Tangela Forte Active TRAMADOL HCL 50 MG TABS 1 po tid PRN TRAMADOL HCL 56917741740 Active Gareth Cancino MD Active HYDROCODONE-ACETAMINOPHEN 5-325 MG TABS 1 tab by mouth every 6 hours as needed for bck pain HYDROCODONE-ACETAMINOPHEN 27792554878 Active Gareth Cancino MD Active ALPRAZOLAM 0.25 MG TAB 1/2 to 1 tablet by mouth qhs prn ALPRAZOLAM 12173613882 No Longer Active Gareth Cancino MD Active CLOBETASOL PROPIONATE 0.05 % CREA apply to hand rash bid CLOBETASOL PROPIONATE 89795366061 No Longer Active Gareth Cancino MD Active BACTROBAN 2 % CREAM Apply to affected area BID MUPIROCIN CALCIUM 85697157992 No Longer Active Gareth Cancino MD Active LISINOPRIL 20 MG TABS 1 tablet by mouth daily for high blood pressure 10/14 LISINOPRIL 12052406506 Active Gareth Cancino MD Active BACTRIM DS 800-160 MG TAB 1 tab by mouth twice daily TRIMETHOPRIM-SULFAMETHOXAZOLE 15642125704 No Longer Active Gareth Cancino MD Active METOPROLOL SUCCINATE ER 100 MG [id number] 1 pill by mouth daily, for blood pressure METOPROLOL SUCCINATE 31549862913 Active Gareth Cancino MD Active KEFLEX 500 MG CAP 1 po TID x 10 days CEPHALEXIN 14627572322 No Longer Active Blanca Castillo APRN Active METOPROLOL SUCCINATE 50 MG TB24 1 tablet by mouth daily METOPROLOL SUCCINATE 15350151327 No Longer Active Gareth Cancino MD Active OMEPRAZOLE 20 MG TBEC Take one by mouth daily OMEPRAZOLE 54737709383 No Longer Active Gareth Cancino MD Active OMEPRAZOLE 40 MG CPDR 1 tab po qday for acid reflux. 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 CENTRUM SILVER TABS 1 TAB PO DAILY MULTIPLE VITAMINS-MINERALS 69154976162 Active Gareth Cancino MD Active VITAMIN B12 100 MCG TABS 1 TAB PO DAILY CYANOCOBALAMIN 20963429344 Active Gareth Cancino MD Active CIPRO 500 MG TABS 1 TAB PO BID CIPROFLOXACIN HCL 60867908553 No Longer Active Gareth Cancino MD Active BACTRIM DS 800-160 MG TAB 1 tab by mouth twice daily TRIMETHOPRIM-SULFAMETHOXAZOLE 16228666810 No Longer Active Gareth Cancino MD Active PREDNISONE 20 MG TAB 1 tab po BID for 3 days, then 1 tab po qday for 3 days PREDNISONE 73604777820 No Longer Active Gareth Cancino MD Active FOLIC ACID 800 MCG TABS Take one by mouth daily FOLIC ACID 57162391885 No Longer Active Gareth Cancino MD Active VITAMIN B-6 250 MG TABS Take one by mouth daily PYRIDOXINE HCL 04649017056 No Longer Active Gareth Cancino MD Active B-12 1000 MCG CAPS Take one by mouth daily CYANOCOBALAMIN 92181583489 No Longer Active Gareth Cancino MD Active DOXYCYCLINE HYCLATE 100 MG CAP 1 cap by mouth twice daily DOXYCYCLINE HYCLATE 45817097069 No Longer Active Gareth Cancino MD Active PREDNISONE 20 MG TAB 1 po bid 3 days, then 1 po q day 3 days 2011 PREDNISONE 07415349473 No Longer Active Gareth Cancino MD Active CHANTIX STARTING MONTH RUBEN 0.5 MG X 11 & 1 MG X 42 TABS 0.5mg daily for 3 days , then 0.5mg BID for 4 days, then 1mg BID VARENICLINE TARTRATE 13321879959 No Longer Active Gareth Cancino MD Active SIMVASTATIN 40 MG TABS Take one by mouth daily SIMVASTATIN 76081226569 Active Gareth Cancino MD Active TRIAMTERENE-HCTZ 37.5-25 MG CAPS Take one by mouth daily TRIAMTERENE- HCTZ 40416951347 Active Gareth Cancino MD Active CHANTIX STARTING [...] 3 days 2011 PREDNISONE 20 MG TAB 435798 PREDNISONE Inactive DOXYCYCLINE HYCLATE 100 MG CAP 1 cap by mouth twice daily DOXYCYCLINE HYCLATE 100 MG CAP 4910555 DOXYCYCLINE HYCLATE Inactive B-12 1000 MCG CAPS Take one by mouth daily B-12 1000 MCG CAPS CYANOCOBALAMIN Inactive VITAMIN B-6 250 MG TABS Take one by mouth daily VITAMIN B-6 250 MG TABS PYRIDOXINE HCL Inactive FOLIC ACID 800 MCG TABS Take one by mouth daily FOLIC ACID 800 MCG TABS 289417 FOLIC ACID Inactive CIPRO 500 MG TABS 1 TAB PO BID CIPRO 500 MG TABS 261774 CIPROFLOXACIN HCL Inactive OMEPRAZOLE 20 MG TBEC Take one by mouth daily OMEPRAZOLE 20 MG TBEC 481463 OMEPRAZOLE Inactive METOPROLOL SUCCINATE 50 MG TB24 1 tablet by mouth daily METOPROLOL SUCCINATE 50 MG TB24 METOPROLOL SUCCINATE Inactive BACTROBAN 2 % CREAM Apply to affected area BID BACTROBAN 2 % CREAM 758817 MUPIROCIN CALCIUM Inactive CLOBETASOL PROPIONATE 0.05 % CREA apply to hand rash bid CLOBETASOL PROPIONATE 0.05 % CREA 289814 CLOBETASOL PROPIONATE Inactive ALPRAZOLAM 0.25 MG TAB 1/2 to 1 tablet by mouth qhs prn ALPRAZOLAM 0.25 MG TAB 530311 ALPRAZOLAM Inactive WELLBUTRIN SR 150 MG ORAL [id number] take 1 tab po BID WELLBUTRIN SR 150 MG ORAL [id number] BUPROPION HCL Inactive PREDNISONE 20 MG TAB 1 tab po BID for 3 days, then 1 tab po qday for 3 days PREDNISONE 20 MG TAB 285408 PREDNISONE Inactive BACTRIM DS 800-160 MG TAB 1 tab by mouth twice daily BACTRIM DS 800-160 MG TAB 037262 TRIMETHOPRIM-SULFAMETHOXAZOLE Inactive LEVAQUIN 500 MG TAB 1 tablet by mouth daily LEVAQUIN 500 MG TAB 380976 LEVOFLOXACIN Inactive KEFLEX 500 MG CAP 1 po TID x 10 days KEFLEX 500 MG CAP 333817 CEPHALEXIN Inactive BACTRIM DS 800-160 MG TAB 1 tab by mouth twice daily BACTRIM DS 800-160 MG TAB 972736 TRIMETHOPRIM-SULFAMETHOXAZOLE Inactive Vital Signs Date Name Value [...] Panel - Chemistry sodium, serum 133 mmol/L 846-390 4862/08/24 potassium, serum 4.4 mmol/L 3.5-5.2 chloride, serum 95 mmol/L 98-107 carbon dioxide, venous blood 33.0 mmol/L 21.0-32.0 blood glucose 107 mg/dL 65-110 calcium, serum 8.8 mg/dL 8.5-10.1 urea nitrogen, blood 12 mg/dL 7-18 creatinine, serum 0.69 mg/dL 0.55-1.30 Lab Report: CBC, Basic Metabolic Panel - Chemistry sodium, serum 132 mmol/L 455-810 2186/10/12 potassium, serum 4.7 mmol/L 3.5-5.2 chloride, serum [...] ... - Chemistry cholesterol, serum 195 mg/dL 119-863 6072/12/02 triglyceride, serum, fasting 74 mg/dL 30-200 HDL cholesterol, serum 52 mg/dL 32-96 LDL cholesterol, serum 128 mg/dL 0-130 sodium, serum 134 mmol/L 528-523 8702/12/02 carbon dioxide, venous blood 30.3 mmol/L 21.0-32.0 [...] 5.0-8.5 Encounters Code Encounter Date Provider Facility CPT-80404 Level 4 Est. Patient 09:00:18 CDT Gareth Cancino MD [facility]-44234 Level 3 Est. Patient 15:12:03 CDT Gareth Cancino MD [facility]-80686 Level 3 Est. Patient 23:08:20 CDT Gareth Cancino MD [facility]-84178 Level 4 Est. Patient 20:40:10 CDT Gareth Cancino MD [facility] CPT-29608 Level 4 Est. Patient 19:50:11 CDT Gareth Cancino MD [facility] CPT-85344 Level 3 Est. Patient 11:00:13 CDT Gareth Cancino MD [facility] CPT-49617 Level 4 Est. Patient 11:20:21 CDT Gareth Cancino MD [facility]-24133 Level 4 Est. Patient 09:22:18 MATH AND SCIENCES DEPARTMENT CHAIR Gareth Cancino MD [facility] CPT-37464 Level 3 Est. Patient 09:48:04 CDT Gareth Cancino MD [facility]-75068 Level 3 Est. Patient 10:13:16 CDT Gareth Cancino MD [facility] CPT-73115 Level 2 Est. Patient 18:36:56 CDT Gareth Cancino MD [facility] CPT-88843 Level 4 Est. Patient 13:50:53 CDT Gareth Cancino MD [facility] CPT-09940 Level 3 Est. Patient 14:58:33 MATH AND SCIENCES DEPARTMENT CHAIR Gareth Cancino MD [facility] CPT-04357 Level 4 Est. Patient 09:25:57 CDT Gareth Cancino MD [facility] CPT-07193 Level 3 Est. Patient 20:39:33 CDT Noman Edwards DO [facility] CPT-70086 Level 2 Est. Patient 13:17:39 CDT Gareth Cancino MD [facility] CPT-48678 Level 3 Est. Patient 13:37:20 CDT Gareth Cancino MD [facility] CPT-72065 Level 3 Est. Patient 18:09:08 CDT Gareth Cancino MD [facility] CPT-46976 Level 4 Est. Patient 09:59:07 CDT Gareth Cancino MD [facility] Procedures Code Procedure Name Date Entry Date Standard Description CPT-69314 BMP - LAB USE ONLY 14:37:27 CDT CPT-15803 CBC - LAB USE ONLY 14:37:27 CDT CPT-69739 Venipuncture Draw Fee 14:37:27 CDT CPT-TCMM Transitional Care Mgmt-Moderate 14:43:38 CDT CPT-97014 Venipuncture Draw Fee 10:33:47 CDT CPT-26628 BMP - LAB USE ONLY 10:33:46 CDT CPT-Cryo Cryotherapy 15:12:03 CDT CPT-76018 LS spine AP and Lat - XRAY USE ONLY 10:31:51 CDT 07/27 CPT-44949 Punch biopsy 1 lsn 20:40:09 CDT CPT-G0008 Administration of Influenza Virus Vaccine 10:04:48 MATH AND SCIENCES DEPARTMENT CHAIR CPT-10413 Fluzone High-Dose Intramuscular Suspension 10:04:48 MATH AND SCIENCES DEPARTMENT CHAIR CPT-84605 Ribs unilat w PA chst min 3V 10:45:40 CDT CPT-LR Lesion Removal 13:14:55 CDT CPT-Cryo Cryotherapy 13:14:55 CDT CPT-18539 Venipuncture Draw Fee 10:25:49 CDT CPT-31283 Administration single or combination vaccine inc oral 13 :22:14 MATH AND SCIENCES DEPARTMENT CHAIR CPT-20104 Influenza High Dose age 65+ 13:22:14 MATH AND SCIENCES DEPARTMENT CHAIR
--- OUTSIDE RECORDS SUMMARY | 2016-12-06 09:23 | XMS REPORT | Clinical Summary ---
Author Author Admin, HILARIA Organization [employer] Address Unknown Phone Unavailable Allergies, Adverse Reactions, [...] PT72 1 patch every 72 hours FENTANYL 65674980212 Active Mary Shah APRN Active PREDNISONE 20 MG TAB take 3 tabs daily for 3 days, 2 tabs daily for 3 days, 1 tab daily for 3 days, 1/2 tab daily for 4 days PREDNISONE 48450633314 No Longer Active Mary Shah APRN Active LEVAQUIN 500 MG TAB 1 tablet by mouth daily for 7 days LEVOFLOXACIN 64769702377 Active Marylennox Shah APRN Active AZITHROMYCIN 250 MG TABS 2 po qd x 1 day, then 1 po qd x 4 days AZITHROMYCIN 16756494346 No Longer Active Danuta Modi Active AZITHROMYCIN 250 MG TABS 2 po qd x 1 day, then 1 po qd x 4 days AZITHROMYCIN 18817122972 No Longer Active Tangela Rameseret Active HYDROCODONE-ACETAMINOPHEN 5-325 MG TABS 1 tab by mouth every 6 hours as needed for bck pain HYDROCODONE-ACETAMINOPHEN 25201015525 No Longer Active Gareth Cancino MD Active ALPRAZOLAM 0.25 MG TAB 1 tablet by mouth q hs prn ALPRAZOLAM 01944484144 Active Gareth Cancino MD Active AZITHROMYCIN 250 MG ORAL TABS 1 tab daily AZITHROMYCIN 04686276906 No Longer Active Gareth Cancino MD Active ZITHROMAX 250 MG TAB 2 po today, then 1 po q days 2-5 AZITHROMYCIN 85063017643 No Longer Active Tangelashar Forte Active IPRATROPIUM-ALBUTEROL 0.5-2.5 (3) MG/3ML INH SOLN nebulize 1 vial every 6hrs prn shortness of breath IPRATROPIUM-ALBUTEROL 39603119972 Active Gareth Cancino MD Active FENTANYL 25 MCG/HR PT72 Apply to clean, dry skin and change every 72 hours FENTANYL 49539374672 No Longer Active Gareth Cancino MD Active WELLBUTRIN SR 150 MG ORAL [id number] take 1 tab po BID BUPROPION HCL 75161388680 No Longer Active Gareth Cancino MD Active ZOFRAN 4 MG ORAL TABS 1 by mouth every 6 hours prn nausea ONDANSETRON HCL 65282324967 Active Tangela Forte Active TRAMADOL HCL 50 MG TABS 1 po tid PRN TRAMADOL HCL 35243800125 Active Gareth Cancino MD Active ALPRAZOLAM 0.25 MG TAB 1/2 to 1 tablet by mouth qhs prn ALPRAZOLAM 22273345644 No Longer Active Gareth Cancino MD Active CLOBETASOL PROPIONATE 0.05 % CREA apply to hand rash bid CLOBETASOL PROPIONATE 60878921175 No Longer Active Gareth Cancino MD Active BACTROBAN 2 % CREAM Apply to affected area BID MUPIROCIN CALCIUM 16977678407 No Longer Active Gareth Cancino MD Active LISINOPRIL 20 MG TABS 1 tablet by mouth daily for high blood pressure 10/14 LISINOPRIL 63024978079 Active Mary Shah APRN Active BACTRIM DS 800-160 MG TAB 1 tab by mouth twice daily TRIMETHOPRIM-SULFAMETHOXAZOLE 85111728445 No Longer Active Gareth Cancino MD Active METOPROLOL SUCCINATE ER 100 MG [id number] 1 pill by mouth daily, for blood pressure METOPROLOL SUCCINATE 59060637619 Active Mary Shah APRN Active KEFLEX 500 MG CAP 1 po TID x 10 days CEPHALEXIN 83539836623 No Longer Active Blanca Castillo APRN Active METOPROLOL SUCCINATE 50 MG TB24 1 tablet by mouth daily METOPROLOL SUCCINATE 98757733711 No Longer Active Gareth Cancino MD Active OMEPRAZOLE 20 MG TBEC Take one by mouth daily OMEPRAZOLE 45931446043 No Longer Active Gareth Cancino MD Active OMEPRAZOLE 40 MG CPDR 1 tab po qday for acid reflux. OMEPRAZOLE 86408027076 Active Mary Shah APRN Active LEVAQUIN 500 MG TAB 1 tablet by mouth daily LEVOFLOXACIN 42205689789 No Longer Active Gareth Cancino MD Active ALEVE 220 MG TAB 2 tab po qd NAPROXEN SODIUM 67179225079 Active Gareth Cancino MD Active ASPIRIN 81 MG CHEW TAB 1 tablet by mouth daily ASPIRIN 79942225722 Active Gareth Cancino MD Active VENTOLIN HFA 108 (90 BASE) MCG/ACT AERS 1-2 puffs four times a day PRN shortness of breath ALBUTEROL SULFATE 66436902314 Active Mary Shah EMPLOYMENT ASSISTANT Active CENTRUM SILVER TABS 1 TAB PO DAILY MULTIPLE VITAMINS-MINERALS 96742789995 Active Gareth Cancino MD Active VITAMIN B12 100 MCG TABS 1 TAB PO DAILY CYANOCOBALAMIN 35292101979 Active Gareth Cancino MD Active CIPRO 500 MG TABS 1 TAB PO BID CIPROFLOXACIN HCL 46696666647 No Longer Active Gareth Cancino MD Active BACTRIM DS 800-160 MG TAB 1 tab by mouth twice daily TRIMETHOPRIM-SULFAMETHOXAZOLE 93774963255 No Longer Active Gareth Cancino MD Active PREDNISONE 20 MG TAB 1 tab po BID for 3 days, then 1 tab po qday for 3 days PREDNISONE 89634487690 No Longer Active Gareth Cancino MD Active FOLIC ACID 800 MCG TABS Take one by mouth daily FOLIC ACID 24390910358 No Longer Active Gareth Cancino MD Active VITAMIN B-6 250 MG TABS Take one by mouth daily PYRIDOXINE HCL 64210925860 No Longer Active Gareth Cancino MD Active B-12 1000 MCG CAPS Take one by mouth daily CYANOCOBALAMIN 30413190414 No Longer Active Gareth Cancino MD Active DOXYCYCLINE HYCLATE 100 MG CAP 1 cap by mouth twice daily DOXYCYCLINE HYCLATE 91630922445 No Longer Active Gareth Cancino MD Active PREDNISONE 20 MG TAB 1 po bid 3 days, then 1 po q day 3 days 2011 PREDNISONE 62038228946 No Longer Active Gareth Cancino MD Active CHANTIX STARTING MONTH RUBEN 0.5 MG X 11 & 1 MG X 42 TABS 0.5mg daily for 3 days , then 0.5mg BID for 4 days, then 1mg BID VARENICLINE TARTRATE 44012236602 No Longer Active Gareth Cancino MD Active SIMVASTATIN 40 MG TABS Take one by mouth daily SIMVASTATIN 61174969112 Active Gareth Cancino MD Active TRIAMTERENE-HCTZ 37.5-25 MG CAPS Take one by mouth daily TRIAMTERENE- HCTZ 55494050518 Active Gareth Cancino MD Active CHANTIX STARTING MONTH URBEN 0.5 MG X 11 & 1 MG X 42 TABS 0.5mg daily for 3 days , then 0.5mg BID for 4 days, then 1mg BID CHANTIX STARTING MONTH RUBEN 0.5 MG X 11 & 1 MG X 42 TABS VARENICLINE TARTRATE Inactive PREDNISONE 20 MG TAB 1 po bid 3 days, then 1 po q day 3 days 2011 PREDNISONE 20 MG TAB 673241 PREDNISONE Inactive DOXYCYCLINE HYCLATE 100 MG CAP 1 cap by mouth twice daily DOXYCYCLINE HYCLATE 100 MG CAP 8614542 DOXYCYCLINE HYCLATE Inactive B-12 1000 MCG CAPS Take one by mouth daily B-12 1000 MCG CAPS CYANOCOBALAMIN Inactive VITAMIN B-6 250 MG TABS Take one by mouth daily VITAMIN B-6 250 MG TABS PYRIDOXINE HCL Inactive FOLIC ACID 800 MCG TABS Take one by mouth daily FOLIC ACID 800 MCG TABS 436988 FOLIC ACID Inactive CIPRO 500 MG TABS 1 TAB PO BID CIPRO 500 MG TABS 155148 CIPROFLOXACIN HCL Inactive OMEPRAZOLE 20 MG TBEC Take one by mouth daily OMEPRAZOLE 20 MG TBEC 589717 OMEPRAZOLE Inactive METOPROLOL SUCCINATE 50 MG TB24 1 tablet by mouth daily METOPROLOL SUCCINATE 50 MG TB24 METOPROLOL SUCCINATE Inactive BACTROBAN 2 % CREAM Apply to affected area BID BACTROBAN 2 % CREAM 966826 MUPIROCIN CALCIUM Inactive CLOBETASOL PROPIONATE 0.05 % CREA apply to hand rash bid CLOBETASOL PROPIONATE 0.05 % CREA 236111 CLOBETASOL PROPIONATE Inactive ALPRAZOLAM 0.25 MG TAB 1/2 to 1 tablet by mouth qhs prn ALPRAZOLAM 0.25 MG TAB 651622 ALPRAZOLAM Inactive WELLBUTRIN SR 150 MG ORAL [id number] take 1 tab po BID WELLBUTRIN SR 150 MG ORAL [id number] BUPROPION HCL Inactive AZITHROMYCIN 250 MG ORAL TABS 1 tab daily AZITHROMYCIN 250 MG ORAL TABS 2098141 AZITHROMYCIN Inactive HYDROCODONE-ACETAMINOPHEN 5-325 MG TABS 1 tab by mouth every 6 hours as needed for bck pain HYDROCODONE-ACETAMINOPHEN 5-325 MG TABS 011838 HYDROCODONE-ACETAMINOPHEN Inactive PREDNISONE 20 MG TAB 1 tab po BID for 3 days, then 1 tab po qday for 3 days PREDNISONE 20 MG TAB 901175 PREDNISONE Inactive BACTRIM DS 800-160 MG TAB 1 tab by mouth twice daily BACTRIM DS 800-160 MG TAB 630408 TRIMETHOPRIM-SULFAMETHOXAZOLE Inactive LEVAQUIN 500 MG TAB 1 tablet by mouth daily LEVAQUIN 500 MG TAB 752388 LEVOFLOXACIN Inactive KEFLEX 500 MG CAP 1 po TID x 10 days KEFLEX 500 MG CAP 451874 CEPHALEXIN Inactive BACTRIM DS 800-160 MG TAB 1 tab by mouth twice daily BACTRIM DS 800-160 MG TAB 19820425 TRIMETHOPRIM-SULFAMETHOXAZOLE Inactive FENTANYL 25 MCG/HR PT72 Apply to clean, dry skin and change every 72 hours FENTANYL 25 MCG/HR PT72 036544 FENTANYL Inactive ZITHROMAX 250 MG TAB 2 po today, then 1 po q days 2-5 ZITHROMAX 250 MG TAB 7512892 AZITHROMYCIN Inactive AZITHROMYCIN 250 MG TABS 2 po qd x 1 day, then 1 po qd x 4 days AZITHROMYCIN 250 MG TABS 2581557 AZITHROMYCIN Inactive AZITHROMYCIN 250 MG TABS 2 po qd x 1 day, then 1 po qd x 4 days AZITHROMYCIN 250 MG TABS 2261574 AZITHROMYCIN Inactive PREDNISONE 20 MG TAB take 3 tabs daily for 3 days, 2 tabs daily for 3 days, 1 tab daily for 3 days, 1/2 tab daily for 4 days PREDNISONE 20 MG TAB 383833 PREDNISONE Inactive Vital Signs Date Name Value [...] Panel - Chemistry sodium, serum 133 mmol/L 445-103 1930/08/24 potassium, serum 4.4 mmol/L 3.5-5.2 chloride, serum 95 mmol/L 98-107 carbon dioxide, venous blood 33.0 mmol/L 21.0-32.0 blood glucose 107 mg/dL 65-110 calcium, serum 8.8 mg/dL 8.5-10.1 urea nitrogen, blood 12 mg/dL 7-18 creatinine, serum 0.69 mg/dL 0.55-1.30 Lab Report: CBC, Basic Metabolic Panel - Chemistry sodium, serum 132 mmol/L 390-866 7677/10/12 potassium, serum 4.7 mmol/L 3.5-5.2 chloride, serum [...] CBC - Chemistry sodium, serum 136 mmol/L 824-826 3828/11/01 carbon dioxide, venous blood 32.1 mmol/L 21.0-32.0 [...] Negative Encounters Code Encounter Date Provider Facility CPT-84382 Level 3 Est. Patient 09:05:25 ELECTRICIAN CONTROL EQUIPMENT Mary Shah APRN [facility] CPT-48782 Level 3 Est. Patient 20:53:25 ELECTRICIAN CONTROL EQUIPMENT Gareth Cancino MD [facility] CPT-83054 Level 3 Est. Patient 10:34:55 CDT Gareth Cancino MD [facility] CPT-30646 Level 4 Est. Patient 09:00:18 CDT Gareth Cancino MD [facility] CPT-99655 Level 3 Est. Patient 15:12:03 CDT Gareth Cancino MD [facility] CPT-82310 Level 3 Est. Patient 23:08:20 CDT Gareth Cancino MD [facility] CPT-46135 Level 4 Est. Patient 20:40:10 CDT Gareth Cancino MD [facility] CPT-13799 Level 4 Est. Patient 19:50:11 CDT Gareth Cancino MD [facility] CPT-67647 Level 3 Est. Patient 11:00:13 CDT Gareth Cancino MD [facility] CPT-97102 Level 4 Est. Patient 11:20:21 CDT Gareth Cancino MD [facility] CPT-36697 Level 4 Est. Patient 09:22:18 ELECTRICIAN CONTROL EQUIPMENT Gareth Cancino MD [facility] CPT-03210 Level 3 Est. Patient 09:48:04 CDT Gareth Cancino MD [facility] CPT-01494 Level 3 Est. Patient 10:13:16 CDT Gareth Cancino MD [facility] CPT-14478 Level 2 Est. Patient 18:36:56 CDT Gareth Cancino MD [facility] CPT-16669 Level 4 Est. Patient 13:50:53 CDT Gareth Cancino MD [facility] CPT-49690 Level 3 Est. Patient 14:58:33 ELECTRICIAN CONTROL EQUIPMENT Gareth Cancino MD [facility] CPT-08464 Level 4 Est. Patient 09:25:57 CDT Gareth Cancino MD [facility] CPT-64925 Level 3 Est. Patient 20:39:33 CDT Noman Edwards DO [facility] CPT-50368 Level 2 Est. Patient 13:17:39 CDT Gareth Cancino MD [facility]-81663 Level 3 Est. Patient 13:37:20 CDT Gareth Cancino MD [facility] CPT-75107 Level 3 Est. Patient 18:09:08 CDT Gareth Cancino MD [facility] CPT-16046 Level 4 Est. Patient 09:59:07 CDT Gareth Cancino MD [facility] Procedures Code Procedure Name Date Entry Date Standard Description CPT-000 Give Appropriate Flu Vaccine 09:29:52 ELECTRICIAN CONTROL EQUIPMENT CPT-000 Give Appropriate Flu Vaccine 09:22:20 ELECTRICIAN CONTROL EQUIPMENT CPT-85724 TSH - LAB USE ONLY 08:11:40 ELECTRICIAN CONTROL EQUIPMENT CPT-39922 Free T4 - LAB USE ONLY 08:11:40 ELECTRICIAN CONTROL EQUIPMENT CPT-89418 Venipuncture Draw Fee 08:11:40 ELECTRICIAN CONTROL EQUIPMENT CPT-61679 UA w micro - LAB USE ONLY 14:26:22 ELECTRICIAN CONTROL EQUIPMENT CPT-G0438 Initial Annual Wellness Exam 20:53:25 ELECTRICIAN CONTROL EQUIPMENT CPT-G0009 Administration of Pneumococcal Vaccine 11:42:53 ELECTRICIAN CONTROL EQUIPMENT CPT-56697 Prevnar 13 Intramuscular Suspension 11:42:53 ELECTRICIAN CONTROL EQUIPMENT 01/07 CPT-95411 First Vx - Ix admin for Medicare patients 11:39:44 ELECTRICIAN CONTROL EQUIPMENT CPT-64154 Fluzone High-Dose Intramuscular Suspension 11:39:44 ELECTRICIAN CONTROL EQUIPMENT CPT-20331 Prevnar 13 Intramuscular Suspension 09:29:52 ELECTRICIAN CONTROL EQUIPMENT 01/07 CPT-86727 CMP - LAB USE ONLY 16:31:15 CDT CPT-46277 CBC - LAB USE ONLY 16:31:14 CDT CPT-72456 Venipuncture Draw Fee 16:31:14 CDT CPT-15608 BMP - LAB USE ONLY 14:37:27 CDT CPT-76470 CBC - LAB USE ONLY 14:37:27 CDT CPT-57216 Venipuncture Draw Fee 14:37:27 CDT CPT-TCMM Transitional Care Mgmt-Moderate 14:43:38 CDT CPT-73833 Venipuncture Draw Fee 10:33:47 CDT CPT-41877 BMP - LAB USE ONLY 10:33:46 CDT CPT-Cryo Cryotherapy 15:12:03 CDT CPT-28179 LS spine AP and Lat - XRAY USE ONLY 10:31:51 CDT 07/27 CPT-43152 Punch biopsy 1 lsn 20:40:09 CDT CPT-G0008 Administration of Influenza Virus Vaccine 10:04:48 ELECTRICIAN CONTROL EQUIPMENT CPT-83044 Fluzone High-Dose Intramuscular Suspension 10:04:48 ELECTRICIAN CONTROL EQUIPMENT CPT-07402 Ribs unilat w PA chst min 3V 10:45:40 CDT CPT-LR Lesion Removal 13:14:55 CDT CPT-Cryo Cryotherapy 13:14:55 CDT CPT-99461 Venipuncture Draw Fee 10:25:49 CDT CPT-77644 Administration single or combination vaccine inc oral 13 :22:14 ELECTRICIAN CONTROL EQUIPMENT CPT-65629 Influenza High Dose age 65+ 13:22:14 ELECTRICIAN CONTROL EQUIPMENT
--- OUTSIDE RECORDS SUMMARY | 2016-12-06 09:24 | XMS REPORT | Clinical Summary ---
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 Unspecified disorder of skin and subcutaneous tissue Folliculitis 704.8 Active Gareth Cancino MD Other specified diseases of hair and hair follicles Low back pain, chronic 724.2 Active Gareth Cancino MD Lumbago Frequency of urination 788.41 Active Negin Garcia TRAFFIC CONTROL OFFICER Urinary frequency Actinic keratosis 702.0 Active [...] MG ORAL TABS 1 tab daily AZITHROMYCIN 15391316041 No Longer Active Gareth Cancino MD Active ZITHROMAX 250 MG TAB 2 po today, then 1 po q days 2-5 AZITHROMYCIN 90159132910 No Longer Active Tangela Forte Active IPRATROPIUM-ALBUTEROL 0.5-2.5 (3) MG/3ML INH SOLN nebulize 1 vial every 6hrs prn shortness of breath IPRATROPIUM-ALBUTEROL 51150608632 Active Gareth Cancino MD Active FENTANYL 25 MCG/HR PT72 Apply to clean, dry skin and change every 72 hours FENTANYL 50083843473 Active Gareth Cancino MD Active WELLBUTRIN SR 150 MG ORAL [id number] take 1 tab po BID BUPROPION HCL 09204585628 No Longer Active Gareth Cancino MD Active ZOFRAN 4 MG ORAL TABS 1 by mouth every 6 hours prn nausea ONDANSETRON HCL 31429117735 Active Tangela Forte Active TRAMADOL HCL 50 MG TABS 1 po tid PRN TRAMADOL HCL 21655461292 Active Gareth Cancino MD Active HYDROCODONE-ACETAMINOPHEN 5-325 MG TABS 1 tab by mouth every 6 hours as needed for bck pain HYDROCODONE-ACETAMINOPHEN 19313611109 Active Gareth Cancino MD Active ALPRAZOLAM 0.25 MG TAB 1/2 to 1 tablet by mouth qhs prn ALPRAZOLAM 30864761844 No Longer Active Gareth Cancino MD Active CLOBETASOL PROPIONATE 0.05 % CREA apply to hand rash bid CLOBETASOL PROPIONATE 27659196146 No Longer Active Gareth Cancino MD Active BACTROBAN 2 % CREAM Apply to affected area BID MUPIROCIN CALCIUM 65205018393 No Longer Active Gareth Cancino MD Active LISINOPRIL 20 MG TABS 1 tablet by mouth daily for high blood pressure 10/14 LISINOPRIL 38032963964 Active Gareth Cancino MD Active BACTRIM DS 800-160 MG TAB 1 tab by mouth twice daily TRIMETHOPRIM-SULFAMETHOXAZOLE 31145288691 No Longer Active Gareth Cancino MD Active METOPROLOL SUCCINATE ER 100 MG [id number] 1 pill by mouth daily, for blood pressure METOPROLOL SUCCINATE 63763198480 Active Gareth Cancino MD Active KEFLEX 500 MG CAP 1 po TID x 10 days CEPHALEXIN 65725540830 No Longer Active Blanca Castillo APRN Active METOPROLOL SUCCINATE 50 MG TB24 1 tablet by mouth daily METOPROLOL SUCCINATE 24544411669 No Longer Active Gareth Cancino MD Active OMEPRAZOLE 20 MG TBEC Take one by mouth daily OMEPRAZOLE 93428590093 No Longer Active Gareth Cancino MD Active OMEPRAZOLE 40 MG CPDR 1 tab po qday for acid reflux. OMEPRAZOLE 00362601455 Active Mary Shah APRN Active LEVAQUIN 500 MG TAB 1 tablet by mouth daily LEVOFLOXACIN 91857331341 No Longer Active Gareth Cancino MD Active ALEVE 220 MG TAB 2 tab po qd NAPROXEN SODIUM 54878382193 Active Gareth Cancino MD Active ASPIRIN 81 MG CHEW TAB 1 tablet by mouth daily ASPIRIN 24038601030 Active Gareth Cancino MD Active VENTOLIN HFA 108 (90 BASE) MCG/ACT AERS 1-2 puffs four times a day PRN shortness of breath ALBUTEROL SULFATE 25422046379 Active Mary Shah SHELL MACHINE OPERATOR Active CENTRUM SILVER TABS 1 TAB PO DAILY MULTIPLE VITAMINS-MINERALS 45810000057 Active Gareth Cancino MD Active VITAMIN B12 100 MCG TABS 1 TAB PO DAILY CYANOCOBALAMIN 47753685867 Active Gareth Cancino MD Active CIPRO 500 MG TABS 1 TAB PO BID CIPROFLOXACIN HCL 93967106799 No Longer Active Gareth Cancino MD Active BACTRIM DS 800-160 MG TAB 1 tab by mouth twice daily TRIMETHOPRIM-SULFAMETHOXAZOLE 46237260203 No Longer Active Gareth Cancino MD Active PREDNISONE 20 MG TAB 1 tab po BID for 3 days, then 1 tab po qday for 3 days PREDNISONE 73233321349 No Longer Active Gareth Cancino MD Active FOLIC ACID 800 MCG TABS Take one by mouth daily FOLIC ACID 82075835741 No Longer Active Gaerth Cancino MD Active VITAMIN B-6 250 MG TABS Take one by mouth daily PYRIDOXINE HCL 44561588210 No Longer Active Gareth Cancino MD Active B-12 1000 MCG CAPS Take one by mouth daily CYANOCOBALAMIN 14256466498 No Longer Active Gareth Cancino MD Active DOXYCYCLINE HYCLATE 100 MG CAP 1 cap by mouth twice daily DOXYCYCLINE HYCLATE 79953573111 No Longer Active Gareth Cancino MD Active PREDNISONE 20 MG TAB 1 po bid 3 days, then 1 po q day 3 days 2011 PREDNISONE 05054795006 No Longer Active Gareth Cancino MD Active CHANTIX STARTING MONTH RUBEN 0.5 MG X 11 & 1 MG X 42 TABS 0.5mg daily for 3 days , then 0.5mg BID for 4 days, then 1mg BID VARENICLINE TARTRATE 92956406978 No Longer Active Gareth Cancino MD Active SIMVASTATIN 40 MG TABS Take one by mouth daily SIMVASTATIN 70565981455 Active Gareth Cancino MD Active TRIAMTERENE-HCTZ 37.5-25 MG CAPS Take one by mouth daily TRIAMTERENE- HCTZ 40474788534 Active Gareth Cancino MD Active CHANTIX STARTING [...] 3 days 2011 PREDNISONE 20 MG TAB 969654 PREDNISONE Inactive DOXYCYCLINE HYCLATE 100 MG CAP 1 cap by mouth twice daily DOXYCYCLINE HYCLATE 100 MG CAP 1167235 DOXYCYCLINE HYCLATE Inactive B-12 1000 MCG CAPS Take one by mouth daily B-12 1000 MCG CAPS CYANOCOBALAMIN Inactive VITAMIN B-6 250 MG TABS Take one by mouth daily VITAMIN B-6 250 MG TABS PYRIDOXINE HCL Inactive FOLIC ACID 800 MCG TABS Take one by mouth daily FOLIC ACID 800 MCG TABS 522281 FOLIC ACID Inactive CIPRO 500 MG TABS 1 TAB PO BID CIPRO 500 MG TABS 660793 CIPROFLOXACIN HCL Inactive OMEPRAZOLE 20 MG TBEC Take one by mouth daily OMEPRAZOLE 20 MG TBEC 502960 OMEPRAZOLE Inactive METOPROLOL SUCCINATE 50 MG TB24 1 tablet by mouth daily METOPROLOL SUCCINATE 50 MG TB24 METOPROLOL SUCCINATE Inactive BACTROBAN 2 % CREAM Apply to affected area BID BACTROBAN 2 % CREAM 596520 MUPIROCIN CALCIUM Inactive CLOBETASOL PROPIONATE 0.05 % CREA apply to hand rash bid 2016/06/ 06 CLOBETASOL PROPIONATE 0.05 % CREA 277241 CLOBETASOL PROPIONATE Inactive ALPRAZOLAM 0.25 MG TAB 1/2 to 1 tablet by mouth qhs prn ALPRAZOLAM 0.25 MG TAB 560547 ALPRAZOLAM Inactive WELLBUTRIN SR 150 MG ORAL [id number] take 1 tab po BID WELLBUTRIN SR 150 MG ORAL [id number] BUPROPION HCL Inactive AZITHROMYCIN 250 MG ORAL TABS 1 tab daily AZITHROMYCIN 250 MG ORAL TABS 2554328 AZITHROMYCIN Inactive PREDNISONE 20 MG TAB 1 tab po BID for 3 days, then 1 tab po qday for 3 days PREDNISONE 20 MG TAB 860355 PREDNISONE Inactive BACTRIM DS 800-160 MG TAB 1 tab by mouth twice daily BACTRIM DS 800-160 MG TAB 172852 TRIMETHOPRIM-SULFAMETHOXAZOLE Inactive LEVAQUIN 500 MG TAB 1 tablet by mouth daily LEVAQUIN 500 MG TAB 223623 LEVOFLOXACIN Inactive KEFLEX 500 MG CAP 1 po TID x 10 days KEFLEX 500 MG CAP 901037 CEPHALEXIN Inactive BACTRIM DS 800-160 MG TAB 1 tab by mouth twice daily BACTRIM DS 800-160 MG TAB 108176 TRIMETHOPRIM-SULFAMETHOXAZOLE Inactive ZITHROMAX 250 MG TAB 2 po today, then 1 po q days 2-5 ZITHROMAX 250 MG TAB 8349877 AZITHROMYCIN Inactive Vital Signs Date Name Value [...] Panel - Chemistry sodium, serum 133 mmol/L 162-857 9004/08/24 potassium, serum 4.4 mmol/L 3.5-5.2 chloride, serum 95 mmol/L 98-107 carbon dioxide, venous blood 33.0 mmol/L 21.0-32.0 blood glucose 107 mg/dL 65-110 calcium, serum 8.8 mg/dL 8.5-10.1 urea nitrogen, blood 12 mg/dL 7-18 creatinine, serum 0.69 mg/dL 0.55-1.30 Lab Report: CBC, Basic Metabolic Panel - Chemistry sodium, serum 132 mmol/L 822-560 2036/10/12 potassium, serum 4.7 mmol/L 3.5-5.2 chloride, serum [...] CBC - Chemistry sodium, serum 136 mmol/L 380-797 3626/11/01 carbon dioxide, venous blood 32.1 mmol/L 21.0-32.0 [...] mg/g mg/g{creat} 0-29 cholesterol, serum 195 mg/dL 152-395 4774/12/02 triglyceride, serum, fasting 74 mg/dL 30-200 HDL cholesterol, serum 52 mg/dL 32-96 LDL cholesterol, serum 128 mg/dL 0-130 sodium, serum 134 mmol/L 699-719 3722/12/02 carbon dioxide, venous blood 30.3 mmol/L 21.0-32.0 [...] 5.0-8.5 Encounters Code Encounter Date Provider Facility CPT-42278 Level 3 Est. Patient 10:34:55 CDT Gareth Cancino MD [facility] CPT-07181 Level 4 Est. Patient 09:00:18 CDT Gareth Cancino MD [facility] CPT-02190 Level 3 Est. Patient 15:12:03 CDT Gareth Cancino MD [facility] CPT-27034 Level 3 Est. Patient 23:08:20 CDT Gareth Cancino MD [facility] CPT-49012 Level 4 Est. Patient 20:40:10 CDT Gareth Cancino MD [facility] CPT-47632 Level 4 Est. Patient 19:50:11 CDT Gareth Cancino MD [facility] CPT-08941 Level 3 Est. Patient 11:00:13 CDT Gareth Cancino MD [facility] CPT-06219 Level 4 Est. Patient 11:20:21 CDT Gareth Cancino MD [facility] CPT-47420 Level 4 Est. 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 Patient 09:48:04 CDT Gareth Cancino MD [facility] CPT-75546 Level 3 Est. Patient 10:13:16 CDT Gareth Cancino MD [facility] CPT-22743 Level 2 Est. Patient 18:36:56 CDT Gareth Cancino MD [facility] CPT-37069 Level 4 Est. Patient 13:50:53 CDT Gareth Cancino MD [facility] CPT-54078 Level 3 Est. Patient 14:58:33 ANIMAL HUSBANDRY PROFESSOR Gareth Cancino MD [facility] CPT-48343 Level 4 Est. Patient 09:25:57 CDT Gareth Cancino MD [facility] CPT-99050 Level 3 Est. Patient 20:39:33 CDT Noman Edwards DO [facility] CPT-68220 Level 2 Est. Patient 13:17:39 CDT Gareth Cancino MD [facility] CPT-34349 Level 3 Est. Patient 13:37:20 CDT Gareth Cancino MD [facility] CPT-13524 Level 3 Est. Patient 18:09:08 CDT Gareth Cancino MD [facility] CPT-20122 Level 4 Est. Patient 09:59:07 CDT Gareth Cancino MD [facility] Procedures Code Procedure Name Date Entry Date Standard Description CPT-79252 CMP - LAB USE ONLY 16:31:15 CDT CPT-93509 CBC - LAB USE ONLY 16:31:14 CDT CPT-99053 Venipuncture Draw Fee 16:31:14 CDT CPT-78467 BMP - LAB USE ONLY 14:37:27 CDT CPT-19117 CBC - LAB USE ONLY 14:37:27 CDT CPT-87583 Venipuncture Draw Fee 14:37:27 CDT CPT-TCMM Transitional Care Mgmt-Moderate 14:43:38 CDT CPT-54534 Venipuncture Draw Fee 10:33:47 CDT CPT-08187 BMP - LAB USE ONLY 10:33:46 CDT CPT-Cryo Cryotherapy 15:12:03 CDT CPT-19535 LS spine AP and Lat - XRAY USE ONLY 10:31:51 CDT 07/27 CPT-38020 Punch biopsy 1 lsn 20:40:09 CDT CPT-G0008 Administration of Influenza Virus Vaccine 10:04:48 ANIMAL HUSBANDRY PROFESSOR CPT-70176 Fluzone High-Dose Intramuscular Suspension 10:04:48 ANIMAL HUSBANDRY PROFESSOR CPT-76186 Ribs unilat w PA chst min 3V 10:45:40 CDT CPT-LR Lesion Removal 13:14:55 CDT CPT-Cryo Cryotherapy 13:14:55 CDT CPT-88160 Venipuncture Draw Fee 10:25:49 CDT CPT-37336 Administration single or combination vaccine inc oral 13 :22:14 ANIMAL HUSBANDRY PROFESSOR CPT-83917 Influenza High Dose age 65+ 13:22:14 ANIMAL HUSBANDRY PROFESSOR
--- OUTSIDE RECORDS SUMMARY | 2016-12-06 09:25 | XMS REPORT | Clinical Summary ---
Author Author Admin, HILARIA Organization [employer] Address Unknown Phone Unavailable Allergies, Adverse Reactions, [...] 1 po qd x 4 days AZITHROMYCIN 03971337501 Active Tangela Forte Active HYDROCODONE-ACETAMINOPHEN 5-325 MG TABS 1 tab by mouth every 6 hours as needed for bck pain HYDROCODONE-ACETAMINOPHEN 83744680598 No Longer Active Gareth Cancino MD Active FENTANYL 12 MCG/HR PT72 Apply to clean, dry skin and change every 72 hours FENTANYL 05991089078 Active Gareth Cancino MD Active ALPRAZOLAM 0.25 MG TAB 1 tablet by mouth q hs prn ALPRAZOLAM 82397320593 Active Gareth Cancino MD Active AZITHROMYCIN 250 MG ORAL TABS 1 tab daily AZITHROMYCIN 05835152206 No Longer Active Gareth Cancino MD Active ZITHROMAX 250 MG TAB 2 po today, then 1 po q days 2-5 AZITHROMYCIN 28630011232 No Longer Active Tangela Forte Active IPRATROPIUM-ALBUTEROL 0.5-2.5 (3) MG/3ML INH SOLN nebulize 1 vial every 6hrs prn shortness of breath IPRATROPIUM-ALBUTEROL 19477108975 Active Gareth Cancino MD Active FENTANYL 25 MCG/HR PT72 Apply to clean, dry skin and change every 72 hours FENTANYL 40048498822 No Longer Active Gareth Cancino MD Active WELLBUTRIN SR 150 MG ORAL [id number]-IPS take 1 tab po BID BUPROPION HCL 05596074820 No Longer Active Gareth Cancino MD Active ZOFRAN 4 MG ORAL TABS 1 by mouth every 6 hours prn nausea ONDANSETRON HCL 52556438367 Active Tangela Forte Active TRAMADOL HCL 50 MG TABS 1 po tid PRN TRAMADOL HCL 13255604472 Active Gareth Cancino MD Active ALPRAZOLAM 0.25 MG TAB 1/2 to 1 tablet by mouth qhs prn ALPRAZOLAM 71842519706 No Longer Active Gareth Cancino MD Active CLOBETASOL PROPIONATE 0.05 % CREA apply to hand rash bid CLOBETASOL PROPIONATE 12429813734 No Longer Active Gareth Cancino MD Active BACTROBAN 2 % CREAM Apply to affected area BID MUPIROCIN CALCIUM 64878722380 No Longer Active Gareth Cancino MD Active LISINOPRIL 20 MG TABS 1 tablet by mouth daily for high blood pressure 10/14 LISINOPRIL 12138945298 Active Gareth Cancino MD Active BACTRIM DS 800-160 MG TAB 1 tab by mouth twice daily TRIMETHOPRIM-SULFAMETHOXAZOLE 28893443922 No Longer Active Gareth Cancino MD Active METOPROLOL SUCCINATE ER 100 MG [id number] 1 pill by mouth daily, for blood pressure METOPROLOL SUCCINATE 35832864175 Active Gareth Cancino MD Active KEFLEX 500 MG CAP 1 po TID x 10 days CEPHALEXIN 04821719761 No Longer Active Blanca Castillo APRN Active METOPROLOL SUCCINATE 50 MG TB24 1 tablet by mouth daily METOPROLOL SUCCINATE 03111389515 No Longer Active Gareth Cancino MD Active OMEPRAZOLE 20 MG TBEC Take one by mouth daily OMEPRAZOLE 45993919848 No Longer Active Gareth Cancino MD Active OMEPRAZOLE 40 MG CPDR 1 tab po qday for acid reflux. OMEPRAZOLE 18776491283 Active Mary Shah APRN Active LEVAQUIN 500 MG TAB 1 tablet by mouth daily LEVOFLOXACIN 13689468048 No Longer Active Gareth Cancino MD Active ALEVE 220 MG TAB 2 tab po qd NAPROXEN SODIUM 11159452612 Active Gareth Cancino MD Active ASPIRIN 81 MG CHEW TAB 1 tablet by mouth daily ASPIRIN 31208087264 Active Gareth Cancino MD Active VENTOLIN HFA 108 (90 BASE) MCG/ACT AERS 1-2 puffs four times a day PRN shortness of breath ALBUTEROL SULFATE 40376873211 Active Mary Shah APRN Active CENTRUM SILVER TABS 1 TAB PO DAILY MULTIPLE VITAMINS-MINERALS 06401560834 Active Gareth Cancino MD Active VITAMIN B12 100 MCG TABS 1 TAB PO DAILY CYANOCOBALAMIN 69057783043 Active Gareth Cancino MD Active CIPRO 500 MG TABS 1 TAB PO BID CIPROFLOXACIN HCL 27237362056 No Longer Active Gareth Cancino MD Active BACTRIM DS 800-160 MG TAB 1 tab by mouth twice daily TRIMETHOPRIM-SULFAMETHOXAZOLE 78637685917 No Longer Active Gareth Cancino MD Active PREDNISONE 20 MG TAB 1 tab po BID for 3 days, then 1 tab po qday for 3 days PREDNISONE 94281303865 No Longer Active Gareth Cancino MD Active FOLIC ACID 800 MCG TABS Take one by mouth daily FOLIC ACID 05987441767 No Longer Active Gareth Cancino MD Active VITAMIN B-6 250 MG TABS Take one by mouth daily PYRIDOXINE HCL 64675919652 No Longer Active Gareth Cancino MD Active B-12 1000 MCG CAPS Take one by mouth daily CYANOCOBALAMIN 30663082380 No Longer Active Gareth Cancino MD Active DOXYCYCLINE HYCLATE 100 MG CAP 1 cap by mouth twice daily DOXYCYCLINE HYCLATE 27715084084 No Longer Active Gareth Cancino MD Active PREDNISONE 20 MG TAB 1 po bid 3 days, then 1 po q day 3 days 2011 PREDNISONE 15224234212 No Longer Active Gareth Cancino MD Active CHANTIX STARTING MONTH RUBEN 0.5 MG X 11 & 1 MG X 42 TABS 0.5mg daily for 3 days , then 0.5mg BID for 4 days, then 1mg BID VARENICLINE TARTRATE 80356243261 No Longer Active Gareth Cancino MD Active SIMVASTATIN 40 MG TABS Take one by mouth daily SIMVASTATIN 99795553076 Active Gareth Cancino MD Active TRIAMTERENE-HCTZ 37.5-25 MG CAPS Take one by mouth daily TRIAMTERENE- HCTZ 23110822207 Active Gareth Cancino MD Active CHANTIX STARTING [...] 3 days 2011 PREDNISONE 20 MG TAB 369859 PREDNISONE Inactive DOXYCYCLINE HYCLATE 100 MG CAP 1 cap by mouth twice daily DOXYCYCLINE HYCLATE 100 MG CAP 5008790 DOXYCYCLINE HYCLATE Inactive B-12 1000 MCG CAPS Take one by mouth daily B-12 1000 MCG CAPS CYANOCOBALAMIN Inactive VITAMIN B-6 250 MG TABS Take one by mouth daily VITAMIN B-6 250 MG TABS PYRIDOXINE HCL Inactive FOLIC ACID 800 MCG TABS Take one by mouth daily FOLIC ACID 800 MCG TABS 508510 FOLIC ACID Inactive CIPRO 500 MG TABS 1 TAB PO BID CIPRO 500 MG TABS 043201 CIPROFLOXACIN HCL Inactive OMEPRAZOLE 20 MG TBEC Take one by mouth daily OMEPRAZOLE 20 MG TBEC 256820 OMEPRAZOLE Inactive METOPROLOL SUCCINATE 50 MG TB24 1 tablet by mouth daily METOPROLOL SUCCINATE 50 MG TB24 METOPROLOL SUCCINATE Inactive BACTROBAN 2 % CREAM Apply to affected area BID BACTROBAN 2 % CREAM 463465 MUPIROCIN CALCIUM Inactive CLOBETASOL PROPIONATE 0.05 % CREA apply to hand rash bid CLOBETASOL PROPIONATE 0.05 % CREA 617911 CLOBETASOL PROPIONATE Inactive ALPRAZOLAM 0.25 MG TAB 1/2 to 1 tablet by mouth qhs prn ALPRAZOLAM 0.25 MG TAB 646969 ALPRAZOLAM Inactive WELLBUTRIN SR 150 MG ORAL [id number] take 1 tab po BID WELLBUTRIN SR 150 MG ORAL [id number] BUPROPION HCL Inactive AZITHROMYCIN 250 MG ORAL TABS 1 tab daily AZITHROMYCIN 250 MG ORAL TABS 8300916 AZITHROMYCIN Inactive HYDROCODONE-ACETAMINOPHEN 5-325 MG TABS 1 tab by mouth every 6 hours as needed for bck pain HYDROCODONE-ACETAMINOPHEN 5-325 MG TABS 177341 HYDROCODONE-ACETAMINOPHEN Inactive PREDNISONE 20 MG TAB 1 tab po BID for 3 days, then 1 tab po qday for 3 days PREDNISONE 20 MG TAB 471554 PREDNISONE Inactive BACTRIM DS 800-160 MG TAB 1 tab by mouth twice daily BACTRIM DS 800-160 MG TAB 933364 TRIMETHOPRIM-SULFAMETHOXAZOLE Inactive LEVAQUIN 500 MG TAB 1 tablet by mouth daily LEVAQUIN 500 MG TAB 310809 LEVOFLOXACIN Inactive KEFLEX 500 MG CAP 1 po TID x 10 days KEFLEX 500 MG CAP 196976 CEPHALEXIN Inactive BACTRIM DS 800-160 MG TAB 1 tab by mouth twice daily BACTRIM DS 800-160 MG TAB 793646 TRIMETHOPRIM-SULFAMETHOXAZOLE Inactive FENTANYL 25 MCG/HR PT72 Apply to clean, dry skin and change every 72 hours FENTANYL 25 MCG/HR PT72 645135 FENTANYL Inactive ZITHROMAX 250 MG TAB 2 po today, then 1 po q days 2-5 ZITHROMAX 250 MG TAB 0799300 AZITHROMYCIN Inactive Vital Signs Date Name Value [...] Panel - Chemistry sodium, serum 133 mmol/L 154-035 9736/08/24 potassium, serum 4.4 mmol/L 3.5-5.2 chloride, serum 95 mmol/L 98-107 carbon dioxide, venous blood 33.0 mmol/L 21.0-32.0 blood glucose 107 mg/dL 65-110 calcium, serum 8.8 mg/dL 8.5-10.1 urea nitrogen, blood 12 mg/dL 7-18 creatinine, serum 0.69 mg/dL 0.55-1.30 Lab Report: CBC, Basic Metabolic Panel - Chemistry sodium, serum 132 mmol/L 028-447 2292/10/12 potassium, serum 4.7 mmol/L 3.5-5.2 chloride, serum [...] CBC - Chemistry sodium, serum 136 mmol/L 529-254 6068/11/01 carbon dioxide, venous blood 32.1 mmol/L 21.0-32.0 [...] Negative Encounters Code Encounter Date Provider Facility CPT-16150 Level 3 Est. Patient 20:53:25 OUTSEWER Gareth Cancino MD [facility] CPT-96901 Level 3 Est. Patient 10:34:55 CDT Gareth Cancino MD [facility] CPT-58007 Level 4 Est. Patient 09:00:18 CDT Gareth Cancino MD [facility] CPT-03761 Level 3 Est. Patient 15:12:03 CDT Gareth Cancino MD [facility] CPT-11892 Level 3 Est. Patient 23:08:20 CDT Gareth Cancino MD [facility] CPT-26303 Level 4 Est. Patient 20:40:10 CDT Gareth Cancino MD [facility] CPT-28656 Level 4 Est. Patient 19:50:11 CDT Gareth Cancino MD [facility] [place]-64[address] Level 3 Est. Patient 11:00:13 CDT Gareth Cancino MD [facility] CPT-29807 Level 4 Est. Patient 11:20:21 CDT Gareth Cancino MD [facility] CPT-82444 Level 4 Est. Patient 09:22:18 OUTSEWER Gareth Cancino MD [facility] CPT-87870 Level 3 Est. Patient 09:48:04 CDT Gareth Cancino MD [facility] CPT-64402 Level 3 Est. Patient 10:13:16 CDT Gareth Cancino MD [facility] CPT-73983 Level 2 Est. Patient 18:36:56 CDT Gareth Cancino MD [facility] CPT-71873 Level 4 Est. Patient 13:50:53 CDT Gareth Cancino MD [facility] [place]-50619 Level 3 Est. Patient 14:58:33 OUTSEWER Gareth Cancino MD [facility] CPT-46465 Level 4 Est. Patient 09:25:57 CDT Gareth Cancino MD [facility] CPT-72442 Level 3 Est. Patient 20:39:33 CDT Noman Edwards DO [facility] CPT-16722 Level 2 Est. Patient 13:17:39 CDT Gareth Cancino MD [facility] [place]-19235 Level 3 Est. Patient 13:37:20 CDT Gareth Cancino MD [facility]-69989 Level 3 Est. Patient 18:09:08 CDT Gareth Cancino MD [facility] CPT-64075 Level 4 Est. Patient 09:59:07 CDT Gareth Cancino MD [facility] Procedures Code Procedure Name Date Entry Date Standard Description CPT-84993 TSH - LAB USE ONLY 08:11:40 OUTSEWER CPT-51359 Free T4 - LAB USE ONLY 08:11:40 OUTSEWER CPT-46728 Venipuncture Draw Fee 08:11:40 OUTSEWER CPT-82927 UA w micro - LAB USE ONLY 14:26:22 OUTSEWER CPT-G0438 Initial Annual Wellness Exam 20:53:25 OUTSEWER CPT-G0009 Administration of Pneumococcal Vaccine 11:42:53 OUTSEWER CPT-03382 Prevnar 13 Intramuscular Suspension 11:42:53 OUTSEWER 01/07 CPT-51149 First Vx - Ix admin for Medicare patients 11:39:44 OUTSEWER CPT-94006 Fluzone High-Dose Intramuscular Suspension 11:39:44 OUTSEWER CPT-79085 Prevnar 13 Intramuscular Suspension 09:29:52 OUTSEWER 01/07 CPT-96287 CMP - LAB USE ONLY 16:31:15 CDT CPT-66479 CBC - LAB USE ONLY 16:31:14 CDT CPT-86007 Venipuncture Draw Fee 16:31:14 CDT CPT-04641 BMP - LAB USE ONLY 14:37:27 CDT CPT-09802 CBC - LAB USE ONLY 14:37:27 CDT CPT-74899 Venipuncture Draw Fee 14:37:27 CDT CPT-TCMM Transitional Care Mgmt-Moderate 14:43:38 CDT CPT-46019 Venipuncture Draw Fee 10:33:47 CDT CPT-35387 BMP - LAB USE ONLY 10:33:46 CDT CPT-Cryo Cryotherapy 15:12:03 CDT CPT-41588 LS spine AP and Lat - XRAY USE ONLY 10:31:51 CDT 07/27 CPT-57811 Punch biopsy 1 lsn 20:40:09 CDT CPT-G0008 Administration of Influenza Virus Vaccine 10:04:48 OUTSEWER CPT-59033 Fluzone High-Dose Intramuscular Suspension 10:04:48 OUTSEWER CPT-73648 Ribs unilat w PA chst min 3V 10:45:40 CDT CPT-LR Lesion Removal 13:14:55 CDT CPT-Cryo Cryotherapy 13:14:55 CDT CPT-19716 Venipuncture Draw Fee 10:25:49 CDT CPT-62855 Administration single or combination vaccine inc oral 13 :22:14 OUTSEWER CPT-24540 Influenza High Dose age 65+ 13:22:14 OUTSEWER
--- OUTSIDE RECORDS SUMMARY | 2016-12-06 09:26 | XMS REPORT | Clinical Summary ---
Author Author Admin, HILARIA Organization [employer] Address Unknown Phone Unavailable Allergies, Adverse Reactions, Alerts Allergy Name Reaction Description Start Date Severity Status Provider HYDROCODONE Critical Active Danuta Modi Conditions or Problems Problem Name Problem Code Onset Date Status Entry Date Provider Comment Standard Description Annotate HYPERTENSION 401.9 Active Gareth Cancino MD Unspecified essential hypertension HYPERCHOLESTEROLEMIA, PURE 272.0 Active Gareth Cancino MD Pure hypercholesterolemia NICOTINE ADDICTION 305.1 Active Gareht Cancino MD Tobacco use disorder INSOMNIA 780.52 [...] cause Skin lesion 709.9 Active Blanca Castillo AMORTIZATION CLERK Unspecified disorder of skin and subcutaneous tissue Folliculitis 704.8 Active Gareth Cancino MD Other specified diseases of hair and hair follicles Low back pain, chronic 724.2 Active Gareth Cancino MD Lumbago Frequency of urination 788.41 Active Negin Garcia INTERIOR PLANT CARETAKER Urinary frequency Actinic keratosis 702.0 Active Gareth [...] then 1 po q days 2-5 AZITHROMYCIN 82454774341 Active Tangela Forte Active IPRATROPIUM-ALBUTEROL 0.5-2.5 (3) MG/3ML INH SOLN nebulize 1 vial every 6hrs prn shortness of breath IPRATROPIUM-ALBUTEROL 71559485974 Active Gareth Cancino MD Active FENTANYL 25 MCG/HR PT72 Apply to clean, dry skin and change every 72 hours FENTANYL 75080649511 Active Gareth Cancino MD Active AZITHROMYCIN 250 MG ORAL TABS 1 tab daily AZITHROMYCIN 30203275233 Active Gareth Cancino MD Active WELLBUTRIN SR 150 MG ORAL [id number] take 1 tab po BID BUPROPION HCL 05186711928 No Longer Active Gareth Cancino MD Active ZOFRAN 4 MG ORAL TABS 1 by mouth every 6 hours prn nausea ONDANSETRON HCL 07942497674 Active Tangela Forte Active TRAMADOL HCL 50 MG TABS 1 po tid PRN TRAMADOL HCL 89938764243 Active Gareth Cancino MD Active HYDROCODONE-ACETAMINOPHEN 5-325 MG TABS 1 tab by mouth every 6 hours as needed for bck pain HYDROCODONE-ACETAMINOPHEN 35081114209 Active Gareth Cancino MD Active ALPRAZOLAM 0.25 MG TAB 1/2 to 1 tablet by mouth qhs prn ALPRAZOLAM 27710792934 No Longer Active Gareth Cancino MD Active CLOBETASOL PROPIONATE 0.05 % CREA apply to hand rash bid CLOBETASOL PROPIONATE 41774141367 No Longer Active Gareth Cancino MD Active BACTROBAN 2 % CREAM Apply to affected area BID MUPIROCIN CALCIUM 46811499321 No Longer Active Gareth Cancino MD Active LISINOPRIL 20 MG TABS 1 tablet by mouth daily for high blood pressure 10/14 LISINOPRIL 16348797571 Active Gareth Cancino MD Active BACTRIM DS 800-160 MG TAB 1 tab by mouth twice daily TRIMETHOPRIM-SULFAMETHOXAZOLE 09511373851 No Longer Active Gareth Cancino MD Active METOPROLOL SUCCINATE ER 100 MG [id number] 1 pill by mouth daily, for blood pressure METOPROLOL SUCCINATE 85715040455 Active Gareth Cancino MD Active KEFLEX 500 MG CAP 1 po TID x 10 days CEPHALEXIN 00235860928 No Longer Active Blanca Castillo APRN Active METOPROLOL SUCCINATE 50 MG TB24 1 tablet by mouth daily METOPROLOL SUCCINATE 11053053891 No Longer Active Gareth Cancino MD Active OMEPRAZOLE 20 MG TBEC Take one by mouth daily OMEPRAZOLE 53261325936 No Longer Active Gareth Cancino MD Active OMEPRAZOLE 40 MG CPDR 1 tab po qday for acid reflux. OMEPRAZOLE 43579810855 Active Mary Shah APRN Active LEVAQUIN 500 MG TAB 1 tablet by mouth daily LEVOFLOXACIN 95178478753 No Longer Active Gareth Cancino MD Active ALEVE 220 MG TAB 2 tab po qd NAPROXEN SODIUM 35153266291 Active Gareth Cancino MD Active ASPIRIN 81 MG CHEW TAB 1 tablet by mouth daily ASPIRIN 24425078338 Active Gareth Cancino MD Active VENTOLIN HFA 108 (90 BASE) MCG/ACT AERS 1-2 puffs four times a day PRN shortness of breath ALBUTEROL SULFATE 78012417169 Active Mary Shah AMORTIZATION CLERK Active CENTRUM SILVER TABS 1 TAB PO DAILY MULTIPLE VITAMINS-MINERALS 09256780333 Active Gareth Cancino MD Active VITAMIN B12 100 MCG TABS 1 TAB PO DAILY CYANOCOBALAMIN 64428907330 Active Gareth Cancino MD Active CIPRO 500 MG TABS 1 TAB PO BID CIPROFLOXACIN HCL 58043197738 No Longer Active Gareth Cancino MD Active BACTRIM DS 800-160 MG TAB 1 tab by mouth twice daily TRIMETHOPRIM-SULFAMETHOXAZOLE 02066903446 No Longer Active Gareth Cancino MD Active PREDNISONE 20 MG TAB 1 tab po BID for 3 days, then 1 tab po qday for 3 days PREDNISONE 86853305798 No Longer Active Gareth Cancino MD Active FOLIC ACID 800 MCG TABS Take one by mouth daily FOLIC ACID 70599275480 No Longer Active Gareth Cancino MD Active VITAMIN B-6 250 MG TABS Take one by mouth daily PYRIDOXINE HCL 81613268498 No Longer Active Gareth Cancino MD Active B-12 1000 MCG CAPS Take one by mouth daily CYANOCOBALAMIN 43112409784 No Longer Active Gareth Cancino MD Active DOXYCYCLINE HYCLATE 100 MG CAP 1 cap by mouth twice daily DOXYCYCLINE HYCLATE 54581985683 No Longer Active Gareth Cancino MD Active PREDNISONE 20 MG TAB 1 po bid 3 days, then 1 po q day 3 days 2011 PREDNISONE 44387272112 No Longer Active Gareth Cancino MD Active CHANTIX STARTING MONTH RUBEN 0.5 MG X 11 & 1 MG X 42 TABS 0.5mg daily for 3 days , then 0.5mg BID for 4 days, then 1mg BID VARENICLINE TARTRATE 48098036668 No Longer Active Gareth Cancino MD Active SIMVASTATIN 40 MG TABS Take one by mouth daily SIMVASTATIN 33445977088 Active Gareth Cancino MD Active TRIAMTERENE-HCTZ 37.5-25 MG CAPS Take one by mouth daily TRIAMTERENE- HCTZ 88641266432 Active Gareth Cancino MD Active CHANTIX STARTING [...] 3 days 2011 PREDNISONE 20 MG TAB 622939 PREDNISONE Inactive DOXYCYCLINE HYCLATE 100 MG CAP 1 cap by mouth twice daily DOXYCYCLINE HYCLATE 100 MG CAP 1323567 DOXYCYCLINE HYCLATE Inactive B-12 1000 MCG CAPS Take one by mouth daily B-12 1000 MCG CAPS CYANOCOBALAMIN Inactive VITAMIN B-6 250 MG TABS Take one by mouth daily VITAMIN B-6 250 MG TABS PYRIDOXINE HCL Inactive FOLIC ACID 800 MCG TABS Take one by mouth daily FOLIC ACID 800 MCG TABS 708284 FOLIC ACID Inactive CIPRO 500 MG TABS 1 TAB PO BID CIPRO 500 MG TABS 830704 CIPROFLOXACIN HCL Inactive OMEPRAZOLE 20 MG TBEC Take one by mouth daily OMEPRAZOLE 20 MG TBEC 497342 OMEPRAZOLE Inactive METOPROLOL SUCCINATE 50 MG TB24 1 tablet by mouth daily METOPROLOL SUCCINATE 50 MG TB24 METOPROLOL SUCCINATE Inactive BACTROBAN 2 % CREAM Apply to affected area BID BACTROBAN 2 % CREAM 718379 MUPIROCIN CALCIUM Inactive CLOBETASOL PROPIONATE 0.05 % CREA apply to hand rash bid CLOBETASOL PROPIONATE 0.05 % CREA 013099 CLOBETASOL PROPIONATE Inactive ALPRAZOLAM 0.25 MG TAB 1/2 to 1 tablet by mouth qhs prn ALPRAZOLAM 0.25 MG TAB 775101 ALPRAZOLAM Inactive WELLBUTRIN SR 150 MG ORAL [id number] take 1 tab po BID WELLBUTRIN SR 150 MG ORAL [id number] BUPROPION HCL Inactive PREDNISONE 20 MG TAB 1 tab po BID for 3 days, then 1 tab po qday for 3 days PREDNISONE 20 MG TAB 099253 PREDNISONE Inactive BACTRIM DS 800-160 MG TAB 1 tab by mouth twice daily BACTRIM DS 800-160 MG TAB 158458 TRIMETHOPRIM-SULFAMETHOXAZOLE Inactive LEVAQUIN 500 MG TAB 1 tablet by mouth daily LEVAQUIN 500 MG TAB 671066 LEVOFLOXACIN Inactive KEFLEX 500 MG CAP 1 po TID x 10 days KEFLEX 500 MG CAP 715397 CEPHALEXIN Inactive BACTRIM DS 800-160 MG TAB 1 tab by mouth twice daily BACTRIM DS 800-160 MG TAB 324041 TRIMETHOPRIM-SULFAMETHOXAZOLE Inactive Vital Signs Date Name Value [...] Panel - Chemistry sodium, serum 133 mmol/L 670-755 5089/08/24 potassium, serum 4.4 mmol/L 3.5-5.2 chloride, serum 95 mmol/L 98-107 carbon dioxide, venous blood 33.0 mmol/L 21.0-32.0 blood glucose 107 mg/dL 65-110 calcium, serum 8.8 mg/dL 8.5-10.1 urea nitrogen, blood 12 mg/dL 7-18 creatinine, serum 0.69 mg/dL 0.55-1.30 Lab Report: CBC, Basic Metabolic Panel - Chemistry sodium, serum 132 mmol/L 959-104 4269/10/12 potassium, serum 4.7 mmol/L 3.5-5.2 chloride, serum [...] ... - Chemistry cholesterol, serum 195 mg/dL 450-602 2320/12/02 triglyceride, serum, fasting 74 mg/dL 30-200 HDL cholesterol, serum 52 mg/dL 32-96 LDL cholesterol, serum 128 mg/dL 0-130 sodium, serum 134 mmol/L 102-653 6575/12/02 carbon dioxide, venous blood 30.3 mmol/L 21.0-32.0 [...] 5.0-8.5 Encounters Code Encounter Date Provider Facility CPT-03017 Level 4 Est. Patient 09:00:18 CDT Gareth Cancino MD [facility]-75578 Level 3 Est. Patient 15:12:03 CDT Gareth Cancino MD [facility]-04188 Level 3 Est. Patient 23:08:20 CDT Gareth Cancino MD [facility]-59792 Level 4 Est. Patient 20:40:10 CDT Gareth Cancino MD [facility] CPT-47877 Level 4 Est. Patient 19:50:11 CDT Gareth Cancino MD [facility] CPT-42177 Level 3 Est. Patient 11:00:13 CDT Gareth Cancino MD [facility] CPT-65896 Level 4 Est. Patient 11:20:21 CDT Gareth Cancino MD [facility] [place]89288 Level 4 Est. Patient 09:22:18 POWER AND RECOVERY SHIFT ENGINEER Gareth Cancino MD [facility] CPT-29575 Level 3 Est. Patient 09:48:04 CDT Gareth Cancino MD [facility] [place]-25127 Level 3 Est. Patient 10:13:16 CDT Gareth Cancino MD [facility] CPT-24946 Level 2 Est. Patient 18:36:56 CDT Gareth Cancino MD [facility] CPT-92897 Level 4 Est. Patient 13:50:53 CDT Gareth Cancino MD [facility] CPT-05373 Level 3 Est. Patient 14:58:33 POWER AND RECOVERY SHIFT ENGINEER Gareth Cancino MD [facility] CPT-74885 Level 4 Est. Patient 09:25:57 CDT Gareth Cancino MD [facility] CPT-55585 Level 3 Est. Patient 20:39:33 CDT Noman Edwards DO [facility] CPT-64148 Level 2 Est. Patient 13:17:39 CDT Gareth Cancino MD [facility] CPT-50178 Level 3 Est. Patient 13:37:20 CDT Gareth Cancino MD [facility] CPT-55277 Level 3 Est. Patient 18:09:08 CDT Gareth Cancino MD [facility] CPT-78478 Level 4 Est. Patient 09:59:07 CDT Gareth Cancino MD [facility] Procedures Code Procedure Name Date Entry Date Standard Description CPT-86036 BMP - LAB USE ONLY 14:37:27 CDT CPT-97217 CBC - LAB USE ONLY 14:37:27 CDT CPT-92772 Venipuncture Draw Fee 14:37:27 CDT CPT-TCMM Transitional Care Mgmt-Moderate 14:43:38 CDT CPT-50510 Venipuncture Draw Fee 10:33:47 CDT CPT-09693 BMP - LAB USE ONLY 10:33:46 CDT CPT-Cryo Cryotherapy 15:12:03 CDT CPT-48548 LS spine AP and Lat - XRAY USE ONLY 10:31:51 CDT 07/27 CPT-42462 Punch biopsy 1 lsn 20:40:09 CDT CPT-G0008 Administration of Influenza Virus Vaccine 10:04:48 POWER AND RECOVERY SHIFT ENGINEER CPT-14062 Fluzone High-Dose Intramuscular Suspension 10:04:48 POWER AND RECOVERY SHIFT ENGINEER CPT-61476 Ribs unilat w PA chst min 3V 10:45:40 CDT CPT-LR Lesion Removal 13:14:55 CDT CPT-Cryo Cryotherapy 13:14:55 CDT CPT-91702 Venipuncture Draw Fee 10:25:49 CDT CPT-23916 Administration single or combination vaccine inc oral 13 :22:14 POWER AND RECOVERY SHIFT ENGINEER CPT-67614 Influenza High Dose age 65+ 13:22:14 POWER AND RECOVERY SHIFT ENGINEER
--- OUTSIDE RECORDS SUMMARY | 2016-12-06 09:26 | XMS REPORT | Clinical Summary ---
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 Unspecified disorder of skin and subcutaneous tissue Folliculitis 704.8 Active Gareth Cancino MD Other specified diseases of hair and hair follicles Low back pain, chronic 724.2 Active Gareth Cancino MD Lumbago Frequency of urination 788.41 Active Negin Garcia COAL HAULER Urinary frequency Actinic keratosis 702.0 Active Gareth Cancino MD Actinic keratosis Bronchitis-Acute ICD-466.0 Inactive Gareth Cancino MD Medication List Medication Instructions Start Date Stop Date Generic Name NDC Status Provider Patient Instruction ALPRAZOLAM 0.25 MG TAB 1/2 to 1 tablet by mouth qhs prn ALPRAZOLAM 41139672874 No Longer Active Gareth Cancino MD Active CLOBETASOL PROPIONATE 0.05 % CREA apply to hand rash bid CLOBETASOL PROPIONATE 20960171766 No Longer Active Gareth Cancino MD Active BACTROBAN 2 % CREAM Apply to affected area BID MUPIROCIN CALCIUM 21029563603 No Longer Active Gareth Cancino MD Active LISINOPRIL 20 MG TABS 1 tablet by mouth daily for high blood pressure 10/14 LISINOPRIL 12813276008 Active Gareth Cancino MD Active BACTRIM DS 800-160 MG TAB 1 tab by mouth twice daily TRIMETHOPRIM-SULFAMETHOXAZOLE 35697822662 No Longer Active Gareth Cancino MD Active METOPROLOL SUCCINATE ER 100 MG [id number] 1 pill by mouth daily, for blood pressure METOPROLOL SUCCINATE 30068974666 Active Gareth Cancino MD Active KEFLEX 500 MG CAP 1 po TID x 10 days CEPHALEXIN 82467845075 No Longer Active Blanca Castillo APRN Active WELLBUTRIN SR 150 MG ORAL [id number] take 1 tab po BID BUPROPION HCL 71517569587 Active Gareth Cancino MD Active METOPROLOL SUCCINATE 50 MG TB24 1 tablet by mouth daily METOPROLOL SUCCINATE 47842229314 No Longer Active Gareth Cancino MD Active OMEPRAZOLE 20 MG TBEC Take one by mouth daily OMEPRAZOLE 11315278569 No Longer Active Gareth Cancino MD Active OMEPRAZOLE 40 MG CPDR 1 tab po qday for acid reflux. OMEPRAZOLE 16416543682 Active Mary Shah APRN Active LEVAQUIN 500 MG TAB 1 tablet by mouth daily LEVOFLOXACIN 26890259139 No Longer Active Gareth Cancino MD Active ALEVE 220 MG TAB 2 tab po qd NAPROXEN SODIUM 60518667359 Active Gareth Cancino MD Active ASPIRIN 81 MG CHEW TAB 1 tablet by mouth daily ASPIRIN 60387673048 Active Gareth Cancino MD Active VENTOLIN HFA 108 (90 BASE) MCG/ACT AERS 1-2 puffs four times a day PRN shortness of breath ALBUTEROL SULFATE 28245375178 Active Mary Shah APRN Active CENTRUM SILVER TABS 1 TAB PO DAILY MULTIPLE VITAMINS-MINERALS 85134861895 Active Gareth Cancino MD Active VITAMIN B12 100 MCG TABS 1 TAB PO DAILY CYANOCOBALAMIN 65480741659 Active Gareth Cancino MD Active CIPRO 500 MG TABS 1 TAB PO BID CIPROFLOXACIN HCL 81922142922 No Longer Active Gareth Cancino MD Active BACTRIM DS 800-160 MG TAB 1 tab by mouth twice daily TRIMETHOPRIM-SULFAMETHOXAZOLE 82479144383 No Longer Active Gareth Cancino MD Active PREDNISONE 20 MG TAB 1 tab po BID for 3 days, then 1 tab po qday for 3 days PREDNISONE 25192804422 No Longer Active Gareth Cancino MD Active FOLIC ACID 800 MCG TABS Take one by mouth daily FOLIC ACID 16947128620 No Longer Active Gareth Cancino MD Active VITAMIN B-6 250 MG TABS Take one by mouth daily PYRIDOXINE HCL 06875868948 No Longer Active Gareth Cancino MD Active B-12 1000 MCG CAPS Take one by mouth daily CYANOCOBALAMIN 22786118589 No Longer Active Gareth Cancino MD Active DOXYCYCLINE HYCLATE 100 MG CAP 1 cap by mouth twice daily DOXYCYCLINE HYCLATE 62690531325 No Longer Active Gareth Cancino MD Active PREDNISONE 20 MG TAB 1 po bid 3 days, then 1 po q day 3 days 2011 PREDNISONE 65600413055 No Longer Active Gareth Cancino MD Active CHANTIX STARTING MONTH RUBEN 0.5 MG X 11 & 1 MG X 42 TABS 0.5mg daily for 3 days , then 0.5mg BID for 4 days, then 1mg BID VARENICLINE TARTRATE 89845346278 No Longer Active Gareth Cancino MD Active SIMVASTATIN 40 MG TABS Take one by mouth daily SIMVASTATIN 04390847060 Active Gareth Cancino MD Active TRIAMTERENE-HCTZ 37.5-25 MG CAPS Take one by mouth daily TRIAMTERENE- HCTZ 72833221631 Active Gareth Cancino MD Active CHANTIX STARTING [...] 3 days 2011 PREDNISONE 20 MG TAB 100641 PREDNISONE Inactive DOXYCYCLINE HYCLATE 100 MG CAP 1 cap by mouth twice daily DOXYCYCLINE HYCLATE 100 MG CAP 7163502 DOXYCYCLINE HYCLATE Inactive B-12 1000 MCG CAPS Take one by mouth daily B-12 1000 MCG CAPS CYANOCOBALAMIN Inactive VITAMIN B-6 250 MG TABS Take one by mouth daily VITAMIN B-6 250 MG TABS PYRIDOXINE HCL Inactive FOLIC ACID 800 MCG TABS Take one by mouth daily FOLIC ACID 800 MCG TABS 259100 FOLIC ACID Inactive CIPRO 500 MG TABS 1 TAB PO BID CIPRO 500 MG TABS 797106 CIPROFLOXACIN HCL Inactive OMEPRAZOLE 20 MG TBEC Take one by mouth daily OMEPRAZOLE 20 MG TBEC 971978 OMEPRAZOLE Inactive METOPROLOL SUCCINATE 50 MG TB24 1 tablet by mouth daily 2015/06/ 30 METOPROLOL SUCCINATE 50 MG TB24 METOPROLOL SUCCINATE Inactive BACTROBAN 2 % CREAM Apply to affected area BID BACTROBAN 2 % CREAM 065102 MUPIROCIN CALCIUM Inactive CLOBETASOL PROPIONATE 0.05 % CREA apply to hand rash bid CLOBETASOL PROPIONATE 0.05 % CREA 441726 CLOBETASOL PROPIONATE Inactive ALPRAZOLAM 0.25 MG TAB 1/2 to 1 tablet by mouth qhs prn ALPRAZOLAM 0.25 MG TAB 386286 ALPRAZOLAM Inactive PREDNISONE 20 MG TAB 1 tab po BID for 3 days, then 1 tab po qday for 3 days PREDNISONE 20 MG TAB 243081 PREDNISONE Inactive BACTRIM DS 800-160 MG TAB 1 tab by mouth twice daily BACTRIM DS 800-160 MG TAB 420893 TRIMETHOPRIM-SULFAMETHOXAZOLE Inactive LEVAQUIN 500 MG TAB 1 tablet by mouth daily LEVAQUIN 500 MG TAB 538580 LEVOFLOXACIN Inactive KEFLEX 500 MG CAP 1 po TID x 10 days KEFLEX 500 MG CAP 628482 CEPHALEXIN Inactive BACTRIM DS 800-160 MG TAB 1 tab by mouth twice daily BACTRIM DS 800-160 MG TAB 305718 TRIMETHOPRIM-SULFAMETHOXAZOLE Inactive Vital Signs Date Name Value [...] ... - Chemistry cholesterol, serum 195 mg/dL 490-339 3060/12/02 triglyceride, serum, fasting 74 mg/dL 30-200 HDL cholesterol, serum 52 mg/dL 32-96 LDL cholesterol, serum 128 mg/dL 0-130 sodium, serum 134 mmol/L 412-804 6550/12/02 carbon dioxide, venous blood 30.3 mmol/L 21.0-32.0 [...] 5.0-8.5 Encounters Code Encounter Date Provider Facility CPT-65142 Level 3 Est. Patient 15:12:03 CDT Gareth Cancino MD [facility] CPT-99032 Level 3 Est. Patient 23:08:20 CDT Gareth Cancino MD [facility]-51407 Level 4 Est. Patient 20:40:10 CDT Gareth Cancino MD [facility] CPT-18104 Level 4 Est. Patient 19:50:11 CDT Gareth Cancino MD [facility] CPT-21853 Level 3 Est. Patient 11:00:13 CDT Gareth Cancino MD [facility] CPT-18400 Level 4 Est. Patient 11:20:21 CDT Gareth Cancino MD [facility] CPT-12803 Level 4 Est. 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 Patient 09:48:04 CDT Gareth Cancino MD [facility] CPT-31936 Level 3 Est. Patient 10:13:16 CDT Gareth Cancino MD [facility] CPT-30641 Level 2 Est. Patient 18:36:56 CDT Gareth Cancino MD [facility] CPT-14513 Level 4 Est. Patient 13:50:53 CDT Gareth Cancino MD [facility] CPT-32661 Level 3 Est. Patient 14:58:33 SEAMLESS TUBE ROLLER Gareth Cancino MD [facility] CPT-23993 Level 4 Est. Patient 09:25:57 CDT Gareth Cancino MD [facility] CPT-97110 Level 3 Est. Patient 20:39:33 CDT Noman Edwards DO [facility] CPT-69710 Level 2 Est. Patient 13:17:39 CDT Gareth Cancino MD [facility] CPT-72028 Level 3 Est. Patient 13:37:20 CDT Gareth Cancino MD [facility] CPT-08247 Level 3 Est. Patient 18:09:08 CDT Gareth Cancino MD [facility] CPT-47759 Level 4 Est. Patient 09:59:07 CDT Gareth Cancino MD [facility] Procedures Code Procedure Name Date Entry Date Standard Description CPT-Cryo Cryotherapy 15:12:03 CDT CPT-09358 LS spine AP and Lat - XRAY USE ONLY 10:31:51 CDT 07/27 CPT-54002 Punch biopsy 1 lsn 20:40:09 CDT CPT-G0008 Administration of Influenza Virus Vaccine 10:04:48 SEAMLESS TUBE ROLLER CPT-25555 Fluzone High-Dose Intramuscular Suspension 10:04:48 SEAMLESS TUBE ROLLER CPT-85206 Ribs unilat w PA chst min 3V 10:45:40 CDT CPT-LR Lesion Removal 13:14:55 CDT CPT-Cryo Cryotherapy 13:14:55 CDT CPT-39720 Venipuncture Draw Fee 10:25:49 CDT CPT-60196 Administration single or combination vaccine inc oral 13 :22:14 SEAMLESS TUBE ROLLER CPT-52491 Influenza High Dose age 65+ 13:22:14 SEAMLESS TUBE ROLLER
--- OUTSIDE RECORDS SUMMARY | 2016-12-06 09:28 | XMS REPORT | Clinical Summary ---
Author Author Admin, Leon Organization [employer] Address Unknown Phone Unavailable Allergies, Adverse Reactions, [...] 1 tablet by mouth qhs prn ALPRAZOLAM 27568254813 No Longer Active Gareth Cancino MD Active CLOBETASOL PROPIONATE 0.05 % CREA apply to hand rash bid CLOBETASOL PROPIONATE 69690546686 No Longer Active Gareth Cancino MD Active BACTROBAN 2 % CREAM Apply to affected area BID MUPIROCIN CALCIUM 20433505465 No Longer Active Gareth Cancino MD Active LISINOPRIL 20 MG TABS 1 tablet by mouth daily for high blood pressure 10/14 LISINOPRIL 44784173342 Active Gareth Cancino MD Active BACTRIM DS 800-160 MG TAB 1 tab by mouth twice daily TRIMETHOPRIM-SULFAMETHOXAZOLE 02754124416 No Longer Active Gareth Cancino MD Active METOPROLOL SUCCINATE ER 100 MG [id number] 1 pill by mouth daily, for blood pressure METOPROLOL SUCCINATE 98964388858 Active Gareth Cancino MD Active KEFLEX 500 MG CAP 1 po TID x 10 days CEPHALEXIN 56648072681 No Longer Active Blanca Castillo APRN Active WELLBUTRIN SR 150 MG ORAL [id number] take 1 tab po BID BUPROPION HCL 02892050677 Active Gareth Cancino MD Active METOPROLOL SUCCINATE 50 MG TB24 1 tablet by mouth daily METOPROLOL SUCCINATE 94925252105 No Longer Active Gareth Cancino MD Active OMEPRAZOLE 20 MG TBEC Take one by mouth daily OMEPRAZOLE 53304680720 No Longer Active Gareth Cancino MD Active OMEPRAZOLE 40 MG CPDR 1 tab po qday for acid reflux. OMEPRAZOLE 63396111704 Active Mary Shah APRN Active LEVAQUIN 500 MG TAB 1 tablet by mouth daily LEVOFLOXACIN 49927532872 No Longer Active Gareth Cancino MD Active ALEVE 220 MG TAB 2 tab po qd NAPROXEN SODIUM 14273750809 Active Gareth Cancino MD Active ASPIRIN 81 MG CHEW TAB 1 tablet by mouth daily ASPIRIN 86758613399 Active Gareth Cancino MD Active VENTOLIN HFA 108 (90 BASE) MCG/ACT AERS 1-2 puffs four times a day PRN shortness of breath ALBUTEROL SULFATE 00337548134 Active Mary Shah DITCH CLEANER Active CENTRUM SILVER TABS 1 TAB PO DAILY MULTIPLE VITAMINS-MINERALS 21248952953 Active aGreth Cancino MD Active VITAMIN B12 100 MCG TABS 1 TAB PO DAILY CYANOCOBALAMIN 03513770163 Active Gareth Cancino MD Active CIPRO 500 MG TABS 1 TAB PO BID CIPROFLOXACIN HCL 82641484858 No Longer Active Gareth Cancino MD Active BACTRIM DS 800-160 MG TAB 1 tab by mouth twice daily TRIMETHOPRIM-SULFAMETHOXAZOLE 19497798596 No Longer Active Gareth Cancino MD Active PREDNISONE 20 MG TAB 1 tab po BID for 3 days, then 1 tab po qday for 3 days PREDNISONE 51810848403 No Longer Active Gareth Cancino MD Active FOLIC ACID 800 MCG TABS Take one by mouth daily FOLIC ACID 46010577580 No Longer Active Gareth Cancino MD Active VITAMIN B-6 250 MG TABS Take one by mouth daily PYRIDOXINE HCL 93098755732 No Longer Active Gareth Cancino MD Active B-12 1000 MCG CAPS Take one by mouth daily CYANOCOBALAMIN 98914960240 No Longer Active Gareth Cancino MD Active DOXYCYCLINE HYCLATE 100 MG CAP 1 cap by mouth twice daily DOXYCYCLINE HYCLATE 49812569502 No Longer Active Gareth Cancino MD Active PREDNISONE 20 MG TAB 1 po bid 3 days, then 1 po q day 3 days 2011 PREDNISONE 79328265537 No Longer Active Gareth Cancino MD Active CHANTIX STARTING MONTH RUBEN 0.5 MG X 11 & 1 MG X 42 TABS 0.5mg daily for 3 days , then 0.5mg BID for 4 days, then 1mg BID VARENICLINE TARTRATE 56910051293 No Longer Active Gareth Cancino MD Active SIMVASTATIN 40 MG TABS Take one by mouth daily SIMVASTATIN 76208820695 Active aGreth Cancino MD Active TRIAMTERENE-HCTZ 37.5-25 MG CAPS Take one by mouth daily TRIAMTERENE- HCTZ 01136089020 Active Gareth Cancino MD Active CHANTIX STARTING [...] 3 days 2011 PREDNISONE 20 MG TAB 004663 PREDNISONE Inactive DOXYCYCLINE HYCLATE 100 MG CAP 1 cap by mouth twice daily DOXYCYCLINE HYCLATE 100 MG CAP 3154723 DOXYCYCLINE HYCLATE Inactive B-12 1000 MCG CAPS Take one by mouth daily B-12 1000 MCG CAPS CYANOCOBALAMIN Inactive VITAMIN B-6 250 MG TABS Take one by mouth daily VITAMIN B-6 250 MG TABS PYRIDOXINE HCL Inactive FOLIC ACID 800 MCG TABS Take one by mouth daily FOLIC ACID 800 MCG TABS 526547 FOLIC ACID Inactive CIPRO 500 MG TABS 1 TAB PO BID CIPRO 500 MG TABS 526206 CIPROFLOXACIN HCL Inactive OMEPRAZOLE 20 MG TBEC Take one by mouth daily OMEPRAZOLE 20 MG TBEC 518606 OMEPRAZOLE Inactive METOPROLOL SUCCINATE 50 MG TB24 1 tablet by mouth daily METOPROLOL SUCCINATE 50 MG TB24 METOPROLOL SUCCINATE Inactive BACTROBAN 2 % CREAM Apply to affected area BID BACTROBAN 2 % CREAM 161295 MUPIROCIN CALCIUM Inactive CLOBETASOL PROPIONATE 0.05 % CREA apply to hand rash bid CLOBETASOL PROPIONATE 0.05 % CREA 642445 CLOBETASOL PROPIONATE Inactive ALPRAZOLAM 0.25 MG TAB 1/2 to 1 tablet by mouth qhs prn ALPRAZOLAM 0.25 MG TAB 409320 ALPRAZOLAM Inactive PREDNISONE 20 MG TAB 1 tab po BID for 3 days, then 1 tab po qday for 3 days PREDNISONE 20 MG TAB 638960 PREDNISONE Inactive BACTRIM DS 800-160 MG TAB 1 tab by mouth twice daily BACTRIM DS 800-160 MG TAB 306325 TRIMETHOPRIM-SULFAMETHOXAZOLE Inactive LEVAQUIN 500 MG TAB 1 tablet by mouth daily LEVAQUIN 500 MG TAB 744372 LEVOFLOXACIN Inactive KEFLEX 500 MG CAP 1 po TID x 10 days KEFLEX 500 MG CAP 872626 CEPHALEXIN Inactive BACTRIM DS 800-160 MG TAB 1 tab by mouth twice daily BACTRIM DS 800-160 MG TAB 371970 TRIMETHOPRIM-SULFAMETHOXAZOLE Inactive Vital Signs Date Name Value [...] ... - Chemistry cholesterol, serum 195 mg/dL 141-945 2444/12/02 triglyceride, serum, fasting 74 mg/dL 30-200 HDL cholesterol, serum 52 mg/dL 32-96 LDL cholesterol, serum 128 mg/dL 0-130 sodium, serum 134 mmol/L 705-176 5110/12/02 carbon dioxide, venous blood 30.3 mmol/L 21.0-32.0 [...] 0-19 Encounters Code Encounter Date Provider Facility CPT-34858 Level 3 Est. Patient 23:08:20 CDT Gareth Cancino MD [facility] CPT-40619 Level 4 Est. Patient 20:40:10 CDT Gareth Cancino MD [facility] CPT-45299 Level 4 Est. Patient 19:50:11 CDT Gareth Cancino MD [facility] CPT-08784 Level 3 Est. Patient 11:00:13 CDT Gareth Cancino MD [facility] CPT-80006 Level 4 Est. Patient 11:20:21 CDT Gareth Cancino MD [facility] CPT-70447 Level 4 Est. 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 Patient 09:48:04 CDT Gareth Cancino MD [facility] CPT-87258 Level 3 Est. Patient 10:13:16 CDT Gareth Cancino MD [facility] CPT-15727 Level 2 Est. Patient 18:36:56 CDT Gareth Cancino MD [facility] CPT-61038 Level 4 Est. Patient 13:50:53 CDT Gareth Cancino MD [facility] CPT-85916 Level 3 Est. Patient 14:58:33 SERVICE CENTER ASSISTANT Gareth Cancino MD [facility] CPT-92274 Level 4 Est. Patient 09:25:57 CDT Gareth Cancino MD [facility] CPT-09141 Level 3 Est. Patient 20:39:33 CDT Noman Edwards DO [facility] CPT-46039 Level 2 Est. Patient 13:17:39 CDT Gareth Cancino MD [facility] CPT-15994 Level 3 Est. Patient 13:37:20 CDT Gareth Cancino MD [facility] CPT-50979 Level 3 Est. Patient 18:09:08 CDT Gareth Cancino MD [facility] CPT-78973 Level 4 Est. Patient 09:59:07 CDT Gareth Cancino MD [facility] Procedures Code Procedure Name Date Entry Date Standard Description CPT-09950 LS spine AP and Lat - XRAY USE ONLY 10:31:51 CDT 07/27 CPT-01135 Punch biopsy 1 lsn 20:40:09 CDT CPT-G0008 Administration of Influenza Virus Vaccine 10:04:48 SERVICE CENTER ASSISTANT CPT-05199 Fluzone High-Dose Intramuscular Suspension 10:04:48 SERVICE CENTER ASSISTANT CPT-20180 Ribs unilat w PA chst min 3V 10:45:40 CDT CPT-LR Lesion Removal 13:14:55 CDT CPT-Cryo Cryotherapy 13:14:55 CDT CPT-34162 Venipuncture Draw Fee 10:25:49 CDT CPT-92208 Administration single or combination vaccine inc oral 13 :22:14 SERVICE CENTER ASSISTANT CPT-76103 Influenza High Dose age 65+ 13:22:14 SERVICE CENTER ASSISTANT
--- OUTSIDE RECORDS SUMMARY | 2016-12-06 09:28 | XMS REPORT | Clinical Summary ---
Author Author Admin, HILARIA Organization [employer] Address Unknown Phone Unavailable Allergies, Adverse Reactions, [...] Cancino MD Frequency of urination ICD-788.41 Inactive Gareht Cancino MD Actinic keratosis ICD-702.0 Inactive Gareth Cancino MD Hypokalemia ICD-276.8 Inactive Gareth Cancino MD Medication List Medication Instructions Start Date Stop Date Generic Name NDC Status Provider Patient Instruction PIROXICAM 20 MG ORAL CAPS 1 po daily as needed for arthritis/pain PIROXICAM 78073641265 Active Tangela Raida Active ZITHROMAX Z-RUBEN 250 MG TABS 2 today, then 1 daily for 4 days 2016 AZITHROMYCIN 04370860459 No Longer Active Tangela Forte Active FENTANYL 25 MCG/HR TRANS PT72 1 patch every 72 hours FENTANYL 56722472574 Active Mary Shah APRN Active PREDNISONE 20 MG TAB take 3 tabs daily for 3 days, 2 tabs daily for 3 days, 1 tab daily for 3 days, 1/2 tab daily for 4 days PREDNISONE 52496302217 No Longer Active Mary Shah APRN Active LEVAQUIN 500 MG TAB 1 tablet by mouth daily for 7 days LEVOFLOXACIN 17028784527 Active Mary Shah APRN Active AZITHROMYCIN 250 MG TABS 2 po qd x 1 day, then 1 po qd x 4 days AZITHROMYCIN 88232550273 No Longer Active Danuta Rian Active AZITHROMYCIN 250 MG TABS 2 po qd x 1 day, then 1 po qd x 4 days AZITHROMYCIN 54869165208 No Longer Active Tangela Forte Active HYDROCODONE-ACETAMINOPHEN 5-325 MG TABS 1 tab by mouth every 6 hours as needed for bck pain HYDROCODONE-ACETAMINOPHEN 63533643703 No Longer Active Gareth Cancino MD Active ALPRAZOLAM 0.25 MG TAB 1 tablet by mouth q hs prn ALPRAZOLAM 78549330255 Active Gareth Cancino MD Active AZITHROMYCIN 250 MG ORAL TABS 1 tab daily AZITHROMYCIN 27444153201 No Longer Active Gareth Cancino MD Active ZITHROMAX 250 MG TAB 2 po today, then 1 po q days 2-5 AZITHROMYCIN 85024567710 No Longer Active Tangela Rameseret Active IPRATROPIUM-ALBUTEROL 0.5-2.5 (3) MG/3ML INH SOLN nebulize 1 vial every 6hrs prn shortness of breath IPRATROPIUM-ALBUTEROL 66785089014 Active Gareth Cancino MD Active FENTANYL 25 MCG/HR PT72 Apply to clean, dry skin and change every 72 hours FENTANYL 64564796897 No Longer Active Gareth Cancino MD Active WELLBUTRIN SR 150 MG ORAL [id number] take 1 tab po BID BUPROPION HCL 81436213569 No Longer Active Gareth Cancino MD Active ZOFRAN 4 MG ORAL TABS 1 by mouth every 6 hours prn nausea ONDANSETRON HCL 70367012446 Active Tangela Forte Active TRAMADOL HCL 50 MG TABS 1 po tid PRN TRAMADOL HCL 91248111092 Active Gareth Cancino MD Active ALPRAZOLAM 0.25 MG TAB 1/2 to 1 tablet by mouth qhs prn ALPRAZOLAM 05280567417 No Longer Active Gareth Cancino MD Active CLOBETASOL PROPIONATE 0.05 % CREA apply to hand rash bid CLOBETASOL PROPIONATE 32783662465 No Longer Active Gareth Cancino MD Active BACTROBAN 2 % CREAM Apply to affected area BID MUPIROCIN CALCIUM 06221470467 No Longer Active Gareth Cancino MD Active LISINOPRIL 20 MG TABS 1 tablet by mouth daily for high blood pressure 10/14 LISINOPRIL 24538879369 Active Mary Shah APRN Active BACTRIM DS 800-160 MG TAB 1 tab by mouth twice daily TRIMETHOPRIM-SULFAMETHOXAZOLE 25500243705 No Longer Active Gareth Cancino MD Active METOPROLOL SUCCINATE ER 100 MG [id number] 1 pill by mouth daily, for blood pressure METOPROLOL SUCCINATE 38972365933 Active Mary Shah APRN Active KEFLEX 500 MG CAP 1 po TID x 10 days CEPHALEXIN 03338225357 No Longer Active Blanca Castillo APRN Active METOPROLOL SUCCINATE 50 MG TB24 1 tablet by mouth daily METOPROLOL SUCCINATE 58865898423 No Longer Active Gareth Cancino MD Active OMEPRAZOLE 20 MG TBEC Take one by mouth daily OMEPRAZOLE 75180932393 No Longer Active Gareth Cancino MD Active OMEPRAZOLE 40 MG CPDR 1 tab po qday for acid reflux. OMEPRAZOLE 60739297847 Active Mary Shah APRN Active LEVAQUIN 500 MG TAB 1 tablet by mouth daily LEVOFLOXACIN 00325165640 No Longer Active Gareth Cancino MD Active ALEVE 220 MG TAB 2 tab po qd NAPROXEN SODIUM 46174970738 Active Gareth Cancino MD Active ASPIRIN 81 MG CHEW TAB 1 tablet by mouth daily ASPIRIN 66561838265 Active Gareth Cancino MD Active VENTOLIN HFA 108 (90 BASE) MCG/ACT AERS 1-2 puffs four times a day PRN shortness of breath ALBUTEROL SULFATE 80160671163 Active Mary Shah APRN Active CENTRUM SILVER TABS 1 TAB PO DAILY MULTIPLE VITAMINS-MINERALS 06210659810 Active Gareth Cancino MD Active VITAMIN B12 100 MCG TABS 1 TAB PO DAILY CYANOCOBALAMIN 02758607506 Active Gareth Cancino MD Active CIPRO 500 MG TABS 1 TAB PO BID CIPROFLOXACIN HCL 36287101393 No Longer Active Gareth Cancino MD Active BACTRIM DS 800-160 MG TAB 1 tab by mouth twice daily TRIMETHOPRIM-SULFAMETHOXAZOLE 50731960312 No Longer Active Gareth Cancino MD Active PREDNISONE 20 MG TAB 1 tab po BID for 3 days, then 1 tab po qday for 3 days PREDNISONE 23096509417 No Longer Active Gareth Cancino MD Active FOLIC ACID 800 MCG TABS Take one by mouth daily FOLIC ACID 86418907144 No Longer Active Gareth Cancino MD Active VITAMIN B-6 250 MG TABS Take one by mouth daily PYRIDOXINE HCL 67513373137 No Longer Active Gareth Cancino MD Active B-12 1000 MCG CAPS Take one by mouth daily CYANOCOBALAMIN 21065167072 No Longer Active Gareth Cancino MD Active DOXYCYCLINE HYCLATE 100 MG CAP 1 cap by mouth twice daily DOXYCYCLINE HYCLATE 00232097657 No Longer Active Gareth Cancino MD Active PREDNISONE 20 MG TAB 1 po bid 3 days, then 1 po q day 3 days 2011 PREDNISONE 68966798965 No Longer Active Gareth Cancino MD Active CHANTIX STARTING MONTH RUBEN 0.5 MG X 11 & 1 MG X 42 TABS 0.5mg daily for 3 days , then 0.5mg BID for 4 days, then 1mg BID VARENICLINE TARTRATE 95994139049 No Longer Active Gareth Cancino MD Active SIMVASTATIN 40 MG TABS Take one by mouth daily SIMVASTATIN 63048847799 Active Gareth Cancino MD Active TRIAMTERENE-HCTZ 37.5-25 MG CAPS Take one by mouth daily TRIAMTERENE- HCTZ 69665162559 Active Gareth Cancino MD Active CHANTIX STARTING [...] 3 days 2011 PREDNISONE 20 MG TAB 405211 PREDNISONE Inactive DOXYCYCLINE HYCLATE 100 MG CAP 1 cap by mouth twice daily DOXYCYCLINE HYCLATE 100 MG CAP 6531458 DOXYCYCLINE HYCLATE Inactive B-12 1000 MCG CAPS Take one by mouth daily B-12 1000 MCG CAPS CYANOCOBALAMIN Inactive VITAMIN B-6 250 MG TABS Take one by mouth daily VITAMIN B-6 250 MG TABS PYRIDOXINE HCL Inactive FOLIC ACID 800 MCG TABS Take one by mouth daily FOLIC ACID 800 MCG TABS 435831 FOLIC ACID Inactive CIPRO 500 MG TABS 1 TAB PO BID CIPRO 500 MG TABS 568324 CIPROFLOXACIN HCL Inactive OMEPRAZOLE 20 MG TBEC Take one by mouth daily OMEPRAZOLE 20 MG TBEC 414549 OMEPRAZOLE Inactive METOPROLOL SUCCINATE 50 MG TB24 1 tablet by mouth daily METOPROLOL SUCCINATE 50 MG TB24 METOPROLOL SUCCINATE Inactive BACTROBAN 2 % CREAM Apply to affected area BID BACTROBAN 2 % CREAM 310950 MUPIROCIN CALCIUM Inactive CLOBETASOL PROPIONATE 0.05 % CREA apply to hand rash bid CLOBETASOL PROPIONATE 0.05 % CREA 131382 CLOBETASOL PROPIONATE Inactive ALPRAZOLAM 0.25 MG TAB 1/2 to 1 tablet by mouth qhs prn ALPRAZOLAM 0.25 MG TAB 356073 ALPRAZOLAM Inactive WELLBUTRIN SR 150 MG ORAL [id number] take 1 tab po BID WELLBUTRIN SR 150 MG ORAL [id number] BUPROPION HCL Inactive AZITHROMYCIN 250 MG ORAL TABS 1 tab daily AZITHROMYCIN 250 MG ORAL TABS 7390280 AZITHROMYCIN Inactive HYDROCODONE-ACETAMINOPHEN 5-325 MG TABS 1 tab by mouth every 6 hours as needed for bck pain HYDROCODONE-ACETAMINOPHEN 5-325 MG TABS 049125 HYDROCODONE-ACETAMINOPHEN Inactive PREDNISONE 20 MG TAB 1 tab po BID for 3 days, then 1 tab po qday for 3 days PREDNISONE 20 MG TAB 220617 PREDNISONE Inactive BACTRIM DS 800-160 MG TAB 1 tab by mouth twice daily BACTRIM DS 800-160 MG TAB 617869 TRIMETHOPRIM-SULFAMETHOXAZOLE Inactive LEVAQUIN 500 MG TAB 1 tablet by mouth daily LEVAQUIN 500 MG TAB 903322 LEVOFLOXACIN Inactive KEFLEX 500 MG CAP 1 po TID x 10 days KEFLEX 500 MG CAP 878612 CEPHALEXIN Inactive BACTRIM DS 800-160 MG TAB 1 tab by mouth twice daily BACTRIM DS 800-160 MG TAB 19820425 TRIMETHOPRIM-SULFAMETHOXAZOLE Inactive FENTANYL 25 MCG/HR PT72 Apply to clean, dry skin and change every 72 hours FENTANYL 25 MCG/HR PT72 883798 FENTANYL Inactive ZITHROMAX 250 MG TAB 2 po today, then 1 po q days 2-5 ZITHROMAX 250 MG TAB 7973399 AZITHROMYCIN Inactive AZITHROMYCIN 250 MG TABS 2 po qd x 1 day, then 1 po qd x 4 days AZITHROMYCIN 250 MG TABS 0154758 AZITHROMYCIN Inactive AZITHROMYCIN 250 MG TABS 2 po qd x 1 day, then 1 po qd x 4 days AZITHROMYCIN 250 MG TABS 1640862 AZITHROMYCIN Inactive PREDNISONE 20 MG TAB take 3 tabs daily for 3 days, 2 tabs daily for 3 days, 1 tab daily for 3 days, 1/2 tab daily for 4 days PREDNISONE 20 MG TAB 033880 PREDNISONE Inactive ZITHROMAX Z-RUBEN 250 MG TABS 2 today, then 1 daily for 4 days 2016 ZITHROMAX Z-RUBEN 250 MG TABS 4025952 AZITHROMYCIN Inactive Vital Signs Date Name Value [...] Panel - Chemistry sodium, serum 133 mmol/L 578-759 7203/08/24 potassium, serum 4.4 mmol/L 3.5-5.2 chloride, serum 95 mmol/L 98-107 carbon dioxide, venous blood 33.0 mmol/L 21.0-32.0 blood glucose 107 mg/dL 65-110 calcium, serum 8.8 mg/dL 8.5-10.1 urea nitrogen, blood 12 mg/dL 7-18 creatinine, serum 0.69 mg/dL 0.55-1.30 Lab Report: CBC, Basic Metabolic Panel - Chemistry sodium, serum 132 mmol/L 989-556 7860/10/12 potassium, serum 4.7 mmol/L 3.5-5.2 chloride, serum [...] CBC - Chemistry sodium, serum 136 mmol/L 803-122 1577/11/01 carbon dioxide, venous blood 32.1 mmol/L 21.0-32.0 [...] Negative Encounters Code Encounter Date Provider Facility CPT-31510 Level 3 Est. Patient 09:05:25 PAYROLL SPECIALIST Mary Shah [facility] CPT-16046 Level 3 Est. Patient 20:53:25 PAYROLL SPECIALIST Gareth Cancino MD [facility]-77065 Level 3 Est. Patient 10:34:55 CDT Gareth Cancino MD [facility]-01363 Level 4 Est. Patient 09:00:18 CDT Gareth Cancino MD [facility]-27621 Level 3 Est. Patient 15:12:03 CDT Gareth Cancino MD [facility]-05904 Level 3 Est. Patient 23:08:20 CDT Gareth Cancino MD [facility]-07451 Level 4 Est. Patient 20:40:10 CDT Gareth Cancino MD [facility]-30279 Level 4 Est. Patient 19:50:11 CDT Gareth Cancino MD [facility]-29348 Level 3 Est. Patient 11:00:13 CDT Gareth Cancino MD [facility]-97056 Level 4 Est. Patient 11:20:21 CDT Gareth Cancino MD [facility]-74991 Level 4 Est. Patient 09:22:18 PAYROLL SPECIALIST Gareth Cancino MD [facility]-62732 Level 3 Est. Patient 09:48:04 CDT Gareth Cancino MD [facility] CPT-39354 Level 3 Est. Patient 10:13:16 CDT Gareth Cancino MD [facility] CPT-24653 Level 2 Est. Patient 18:36:56 CDT Gareth Cancino MD [facility]-66378 Level 4 Est. Patient 13:50:53 CDT Gareth Cancino MD [facility]-32336 Level 3 Est. Patient 14:58:33 PAYROLL SPECIALIST Gareth Cancino MD [facility]-00263 Level 4 Est. Patient 09:25:57 CDT Gareth Cancino MD [facility] CPT-66348 Level 3 Est. Patient 20:39:33 CDT Noman Edwards DO [facility] CPT-08053 Level 2 Est. Patient 13:17:39 CDT Gareth Cancino MD [facility] CPT-62358 Level 3 Est. Patient 13:37:20 CDT Gareth Cancino MD [facility] CPT-52510 Level 3 Est. Patient 18:09:08 CDT Gareth Cancino MD [facility] CPT-86111 Level 4 Est. Patient 09:59:07 CDT Gareth Cancino MD [facility] Procedures Code Procedure Name Date Entry Date Standard Description CPT-000 Give Appropriate Flu Vaccine 09:29:52 PAYROLL SPECIALIST CPT-000 Give Appropriate Flu Vaccine 09:22:20 PAYROLL SPECIALIST CPT-92358 TSH - LAB USE ONLY 08:11:40 PAYROLL SPECIALIST CPT-91444 Free T4 - LAB USE ONLY 08:11:40 PAYROLL SPECIALIST CPT-46176 Venipuncture Draw Fee 08:11:40 PAYROLL SPECIALIST CPT-29504 UA w micro - LAB USE ONLY 14:26:22 PAYROLL SPECIALIST CPT-G0438 Initial Annual Wellness Exam 20:53:25 PAYROLL SPECIALIST CPT-G0009 Administration of Pneumococcal Vaccine 11:42:53 PAYROLL SPECIALIST CPT-17943 Prevnar 13 Intramuscular Suspension 11:42:53 PAYROLL SPECIALIST 01/07 CPT-19735 First Vx - Ix admin for Medicare patients 11:39:44 PAYROLL SPECIALIST CPT-64178 Fluzone High-Dose Intramuscular Suspension 11:39:44 PAYROLL SPECIALIST CPT-98348 Prevnar 13 Intramuscular Suspension 09:29:52 PAYROLL SPECIALIST 01/07 CPT-58386 CMP - LAB USE ONLY 16:31:15 CDT CPT-43375 CBC - LAB USE ONLY 16:31:14 CDT CPT-55869 Venipuncture Draw Fee 16:31:14 CDT CPT-80951 BMP - LAB USE ONLY 14:37:27 CDT CPT-29389 CBC - LAB USE ONLY 14:37:27 CDT CPT-72633 Venipuncture Draw Fee 14:37:27 CDT CPT-TCMM Transitional Care Mgmt-Moderate 14:43:38 CDT CPT-00102 Venipuncture Draw Fee 10:33:47 CDT CPT-99281 BMP - LAB USE ONLY 10:33:46 CDT CPT-Cryo Cryotherapy 15:12:03 CDT CPT-13061 LS spine AP and Lat - XRAY USE ONLY 10:31:51 CDT 07/27 CPT-27724 Punch biopsy 1 lsn 20:40:09 CDT CPT-G0008 Administration of Influenza Virus Vaccine 10:04:48 PAYROLL SPECIALIST CPT-10584 Fluzone High-Dose Intramuscular Suspension 10:04:48 PAYROLL SPECIALIST CPT-65635 Ribs unilat w PA chst min 3V 10:45:40 CDT CPT-LR Lesion Removal 13:14:55 CDT CPT-Cryo Cryotherapy 13:14:55 CDT CPT-47231 Venipuncture Draw Fee 10:25:49 CDT CPT-75758 Administration single or combination vaccine inc oral 13 :22:14 PAYROLL SPECIALIST CPT-99759 Influenza High Dose age 65+ 13:22:14 PAYROLL SPECIALIST
--- OUTSIDE RECORDS SUMMARY | 2016-12-06 09:30 | XMS REPORT | Clinical Summary ---
Author Author Admin, HILARIA Organization [employer] Address Unknown Phone Unavailable Allergies, Adverse Reactions, [...] hours as needed for bck pain HYDROCODONE-ACETAMINOPHEN [id number] No Longer Active Gareth Cancino MD Active FENTANYL 12 MCG/HR PT72 Apply to clean, dry skin and change every 72 hours FENTANYL 13776353241 Active Gareth Cancino MD Active ALPRAZOLAM 0.25 MG TAB 1 tablet by mouth q hs prn ALPRAZOLAM 72904158978 Active Gareth Cancino MD Active AZITHROMYCIN 250 MG ORAL TABS 1 tab daily AZITHROMYCIN 72220308400 No Longer Active Gareth Cancino MD Active ZITHROMAX 250 MG TAB 2 po today, then 1 po q days 2-5 AZITHROMYCIN 85873111446 No Longer Active Tangela Forte Active IPRATROPIUM-ALBUTEROL 0.5-2.5 (3) MG/3ML INH SOLN nebulize 1 vial every 6hrs prn shortness of breath IPRATROPIUM-ALBUTEROL 35808867551 Active Gareth Cancino MD Active FENTANYL 25 MCG/HR PT72 Apply to clean, dry skin and change every 72 hours FENTANYL 03150468023 No Longer Active Gareth Cancino MD Active WELLBUTRIN SR 150 MG ORAL [id number] take 1 tab po BID BUPROPION HCL 18576976749 No Longer Active Gareth Cancino MD Active ZOFRAN 4 MG ORAL TABS 1 by mouth every 6 hours prn nausea ONDANSETRON HCL 64027333453 Active Tangela Forte Active TRAMADOL HCL 50 MG TABS 1 po tid PRN TRAMADOL HCL 79090595767 Active Gareth Cancino MD Active ALPRAZOLAM 0.25 MG TAB 1/2 to 1 tablet by mouth qhs prn ALPRAZOLAM 49172821729 No Longer Active Gareth Cancino MD Active CLOBETASOL PROPIONATE 0.05 % CREA apply to hand rash bid CLOBETASOL PROPIONATE 72621330018 No Longer Active Gareth Cnacino MD Active BACTROBAN 2 % CREAM Apply to affected area BID MUPIROCIN CALCIUM 95474872343 No Longer Active Gareth Cancino MD Active LISINOPRIL 20 MG TABS 1 tablet by mouth daily for high blood pressure 10/14 LISINOPRIL 36437930974 Active Gareth Cancino MD Active BACTRIM DS 800-160 MG TAB 1 tab by mouth twice daily TRIMETHOPRIM-SULFAMETHOXAZOLE 23813421734 No Longer Active Gareth Cancino MD Active METOPROLOL SUCCINATE ER 100 MG [id number] 1 pill by mouth daily, for blood pressure METOPROLOL SUCCINATE 71330593648 Active Gareth Cancino MD Active KEFLEX 500 MG CAP 1 po TID x 10 days CEPHALEXIN 26222618575 No Longer Active Blanca Castillo APRN Active METOPROLOL SUCCINATE 50 MG TB24 1 tablet by mouth daily METOPROLOL SUCCINATE 55850644666 No Longer Active Gareth Cancino MD Active OMEPRAZOLE 20 MG TBEC Take one by mouth daily OMEPRAZOLE 40659001956 No Longer Active Gareth Cancino MD Active OMEPRAZOLE 40 MG CPDR 1 tab po qday for acid reflux. OMEPRAZOLE 95480683550 Active Mary Shah APRN Active LEVAQUIN 500 MG TAB 1 tablet by mouth daily LEVOFLOXACIN 06635375710 No Longer Active Gareth Cancino MD Active ALEVE 220 MG TAB 2 tab po qd NAPROXEN SODIUM 12571432222 Active Gareth Cancino MD Active ASPIRIN 81 MG CHEW TAB 1 tablet by mouth daily ASPIRIN 09934690293 Active Gareth Cancino MD Active VENTOLIN HFA 108 (90 BASE) MCG/ACT AERS 1-2 puffs four times a day PRN shortness of breath ALBUTEROL SULFATE 71555881563 Active Mary Shah APRN Active CENTRUM SILVER TABS 1 TAB PO DAILY MULTIPLE VITAMINS-MINERALS 44357019419 Active Gareth Cancino MD Active VITAMIN B12 100 MCG TABS 1 TAB PO DAILY CYANOCOBALAMIN 12544567317 Active Gareth Cancino MD Active CIPRO 500 MG TABS 1 TAB PO BID CIPROFLOXACIN HCL 05230806524 No Longer Active Gareth Cancino MD Active BACTRIM DS 800-160 MG TAB 1 tab by mouth twice daily TRIMETHOPRIM-SULFAMETHOXAZOLE 81895352759 No Longer Active Gareth Cancino MD Active PREDNISONE 20 MG TAB 1 tab po BID for 3 days, then 1 tab po qday for 3 days PREDNISONE 08754393181 No Longer Active Gareth Cancino MD Active FOLIC ACID 800 MCG TABS Take one by mouth daily FOLIC ACID 11561085495 No Longer Active Gareth Cancino MD Active VITAMIN B-6 250 MG TABS Take one by mouth daily PYRIDOXINE HCL 84403873969 No Longer Active Gareth Cancino MD Active B-12 1000 MCG CAPS Take one by mouth daily CYANOCOBALAMIN 61778603225 No Longer Active Gareth Cancino MD Active DOXYCYCLINE HYCLATE 100 MG CAP 1 cap by mouth twice daily DOXYCYCLINE HYCLATE 09430421145 No Longer Active Gareth Cancino MD Active PREDNISONE 20 MG TAB 1 po bid 3 days, then 1 po q day 3 days 2011 PREDNISONE 32299268368 No Longer Active Gareth Cancino MD Active CHANTIX STARTING MONTH RUBEN 0.5 MG X 11 & 1 MG X 42 TABS 0.5mg daily for 3 days , then 0.5mg BID for 4 days, then 1mg BID VARENICLINE TARTRATE 42544948897 No Longer Active Gareth Cancino MD Active SIMVASTATIN 40 MG TABS Take one by mouth daily SIMVASTATIN 75125478550 Active Gareth Cancino MD Active TRIAMTERENE-HCTZ 37.5-25 MG CAPS Take one by mouth daily TRIAMTERENE- HCTZ 64815276405 Active Gareth Cancino MD Active CHANTIX STARTING [...] 3 days 2011 PREDNISONE 20 MG TAB 314482 PREDNISONE Inactive DOXYCYCLINE HYCLATE 100 MG CAP 1 cap by mouth twice daily DOXYCYCLINE HYCLATE 100 MG CAP 2016337 DOXYCYCLINE HYCLATE Inactive B-12 1000 MCG CAPS Take one by mouth daily B-12 1000 MCG CAPS CYANOCOBALAMIN Inactive VITAMIN B-6 250 MG TABS Take one by mouth daily VITAMIN B-6 250 MG TABS PYRIDOXINE HCL Inactive FOLIC ACID 800 MCG TABS Take one by mouth daily FOLIC ACID 800 MCG TABS 260165 FOLIC ACID Inactive CIPRO 500 MG TABS 1 TAB PO BID CIPRO 500 MG TABS 824075 CIPROFLOXACIN HCL Inactive OMEPRAZOLE 20 MG TBEC Take one by mouth daily OMEPRAZOLE 20 MG TBEC 587909 OMEPRAZOLE Inactive METOPROLOL SUCCINATE 50 MG TB24 1 tablet by mouth daily METOPROLOL SUCCINATE 50 MG TB24 METOPROLOL SUCCINATE Inactive BACTROBAN 2 % CREAM Apply to affected area BID BACTROBAN 2 % CREAM 238955 MUPIROCIN CALCIUM Inactive CLOBETASOL PROPIONATE 0.05 % CREA apply to hand rash bid CLOBETASOL PROPIONATE 0.05 % CREA 999711 CLOBETASOL PROPIONATE Inactive ALPRAZOLAM 0.25 MG TAB 1/2 to 1 tablet by mouth qhs prn ALPRAZOLAM 0.25 MG TAB 254883 ALPRAZOLAM Inactive WELLBUTRIN SR 150 MG ORAL [id number] take 1 tab po BID WELLBUTRIN SR 150 MG ORAL [id number] BUPROPION HCL Inactive AZITHROMYCIN 250 MG ORAL TABS 1 tab daily AZITHROMYCIN 250 MG ORAL TABS 9399730 AZITHROMYCIN Inactive HYDROCODONE-ACETAMINOPHEN 5-325 MG TABS 1 tab by mouth every 6 hours as needed for bck pain HYDROCODONE-ACETAMINOPHEN 5-325 MG TABS 785131 HYDROCODONE-ACETAMINOPHEN Inactive PREDNISONE 20 MG TAB 1 tab po BID for 3 days, then 1 tab po qday for 3 days PREDNISONE 20 MG TAB 080252 PREDNISONE Inactive BACTRIM DS 800-160 MG TAB 1 tab by mouth twice daily BACTRIM DS 800-160 MG TAB 374605 TRIMETHOPRIM-SULFAMETHOXAZOLE Inactive LEVAQUIN 500 MG TAB 1 tablet by mouth daily LEVAQUIN 500 MG TAB 194167 LEVOFLOXACIN Inactive KEFLEX 500 MG CAP 1 po TID x 10 days KEFLEX 500 MG CAP 166761 CEPHALEXIN Inactive BACTRIM DS 800-160 MG TAB 1 tab by mouth twice daily BACTRIM DS 800-160 MG TAB 130148 TRIMETHOPRIM-SULFAMETHOXAZOLE Inactive FENTANYL 25 MCG/HR PT72 Apply to clean, dry skin and change every 72 hours FENTANYL 25 MCG/HR PT72 249053 FENTANYL Inactive ZITHROMAX 250 MG TAB 2 po today, then 1 po q days 2-5 ZITHROMAX 250 MG TAB 6482979 AZITHROMYCIN Inactive Vital Signs Date Name Value [...] Panel - Chemistry sodium, serum 133 mmol/L 308-166 9389/08/24 potassium, serum 4.4 mmol/L 3.5-5.2 chloride, serum 95 mmol/L 98-107 carbon dioxide, venous blood 33.0 mmol/L 21.0-32.0 blood glucose 107 mg/dL 65-110 calcium, serum 8.8 mg/dL 8.5-10.1 urea nitrogen, blood 12 mg/dL 7-18 creatinine, serum 0.69 mg/dL 0.55-1.30 Lab Report: CBC, Basic Metabolic Panel - Chemistry sodium, serum 132 mmol/L 519-275 9729/10/12 potassium, serum 4.7 mmol/L 3.5-5.2 chloride, serum [...] CBC - Chemistry sodium, serum 136 mmol/L 273-059 4118/11/01 carbon dioxide, venous blood 32.1 mmol/L 21.0-32.0 [...] Negative Encounters Code Encounter Date Provider Facility CPT-29940 Level 3 Est. Patient 20:53:25 PROPERTY [employer] Gareth Cancino MD [facility] CPT-19572 Level 3 Est. Patient 10:34:55 CDT Gareth Cancino MD [facility] CPT-47296 Level 4 Est. Patient 09:00:18 CDT Gareth Cancino MD [facility] CPT-45527 Level 3 Est. Patient 15:12:03 CDT Gareth Cancino MD [facility] CPT-22381 Level 3 Est. Patient 23:08:20 CDT Gareth Cancino MD [facility] CPT-84969 Level 4 Est. Patient 20:40:10 CDT Gareth Cancino MD [facility] CPT-19662 Level 4 Est. Patient 19:50:11 CDT Gareth Cancino MD [facility] CPT-24917 Level 3 Est. Patient 11:00:13 CDT Gareth Cancino MD [facility]-04193 Level 4 Est. Patient 11:20:21 CDT Gareth Cancino MD [facility] CPT-29328 Level 4 Est. Patient 09:22:18 PROPERTY [employer]ER Gareth Cancino MD [facility] CPT-86329 Level 3 Est. Patient 09:48:04 CDT Gareth Cancino MD [facility]-89133 Level 3 Est. Patient 10:13:16 CDT Gareth Cancino MD [facility]-91330 Level 2 Est. Patient 18:36:56 CDT Gareth Cancino MD [facility]-74138 Level 4 Est. Patient 13:50:53 CDT Gareth Cancino MD [facility] CPT-09605 Level 3 Est. Patient 14:58:33 PROPERTY [employer]ER Gareth Cancino MD [facility] CPT-69072 Level 4 Est. Patient 09:25:57 CDT Gareth Cancino MD [facility]-46669 Level 3 Est. Patient 20:39:33 CDT Noman Edwards DO [facility] CPT-94568 Level 2 Est. Patient 13:17:39 CDT Gareth Cancino MD [facility]-78768 Level 3 Est. Patient 13:37:20 CDT Gareth Cancino MD [facility]-61554 Level 3 Est. Patient 18:09:08 CDT Gareth Cancino MD [facility]-15909 Level 4 Est. Patient 09:59:07 CDT Gareth Cancino MD [facility] Procedures Code Procedure Name Date Entry Date Standard Description CPT-90697 TSH - LAB USE ONLY 08:11:40 [employer] CPT-52859 Free T4 - LAB USE ONLY 08:11:40 PROPERTY [employer]ER CPT-28079 Venipuncture Draw Fee 08:11:40 [employer]ERTY [employer]ER CPT-18395 UA w micro - LAB USE ONLY 14:26:22 PROPERTY [employer]ER CPT-G0438 Initial Annual Wellness Exam 20:53:25 PROPERTY [employer]OLLER CPT-G0009 Administration of Pneumococcal Vaccine 11:42:53 PROPERTY [employer]ER CPT-00881 Prevnar 13 Intramuscular Suspension 11:42:53 PROPERTY CONTROLLER 01/07 CPT-99383 First Vx - Ix admin for Medicare patients 11:39:44 PROPERTY CONTROLLER CPT-34985 Fluzone High-Dose Intramuscular Suspension 11:39:44 PROPERTY CONTROLLER CPT-93131 Prevnar 13 Intramuscular Suspension 09:29:52 PROPERTY CONTROLLER 01/07 CPT-84493 CMP - LAB USE ONLY 16:31:15 CDT CPT-94482 CBC - LAB USE ONLY 16:31:14 CDT CPT-51247 Venipuncture Draw Fee 16:31:14 CDT CPT-99365 BMP - LAB USE ONLY 14:37:27 CDT CPT-27432 CBC - LAB USE ONLY 14:37:27 CDT CPT-28111 Venipuncture Draw Fee 14:37:27 CDT CPT-TCMM Transitional Care Mgmt-Moderate 14:43:38 CDT CPT-17524 Venipuncture Draw Fee 10:33:47 CDT CPT-64725 BMP - LAB USE ONLY 10:33:46 CDT CPT-Cryo Cryotherapy 15:12:03 CDT CPT-11644 LS spine AP and Lat - XRAY USE ONLY 10:31:51 CDT 07/27 CPT-54659 Punch biopsy 1 lsn 20:40:09 CDT CPT-G0008 Administration of Influenza Virus Vaccine 10:04:48 [employer]ERTY [employer]ER CPT-92545 Fluzone High-Dose Intramuscular Suspension 10:04:48 PROPERTY CONTRO[employer]ER CPT-63893 Ribs unilat w PA chst min 3V 10:45:40 CDT CPT-LR Lesion Removal 13:14:55 CDT CPT-Cryo Cryotherapy 13:14:55 CDT CPT-67435 Venipuncture Draw Fee 10:25:49 CDT CPT-61402 Administration single or combination vaccine inc oral 13 :22:14 PROPERTY CONTROLLER CPT-72539 Influenza High Dose age 65+ 13:22:14 PROPERTY CONTROLLER
--- OUTSIDE RECORDS SUMMARY | 2016-12-06 09:31 | XMS REPORT | Clinical Summary ---
Author Author Admin, HILARIA Organization [facility] Address Unknown Phone Unavailable Allergies, Adverse Reactions, [...] ACUTE WITH MILD BRONCHOSPASM ICD-466.0 Inactive Gareth Cancnio MD URINARY FREQUENCY ICD-788.41 Inactive Gareth Cancino [...] po daily as needed for arthritis/pain PIROXICAM 61100882640 Active Tangela Raida Active ZITHROMAX Z-RUBEN 250 MG TABS 2 today, then 1 daily for 4 days 2016 AZITHROMYCIN 77809614370 No Longer Active Tangela Forte Active FENTANYL 25 MCG/HR TRANS PT72 1 patch every 72 hours FENTANYL 22550153519 Active Mary Shah APRN Active PREDNISONE 20 MG TAB take 3 tabs daily for 3 days, 2 tabs daily for 3 days, 1 tab daily for 3 days, 1/2 tab daily for 4 days PREDNISONE 99563101048 No Longer Active Mary Shah APRN Active LEVAQUIN 500 MG TAB 1 tablet by mouth daily for 7 days LEVOFLOXACIN 34854028494 Active Mary Shah APRN Active AZITHROMYCIN 250 MG TABS 2 po qd x 1 day, then 1 po qd x 4 days AZITHROMYCIN 33503401399 No Longer Active Danuta Rian Active AZITHROMYCIN 250 MG TABS 2 po qd x 1 day, then 1 po qd x 4 days AZITHROMYCIN 34732322216 No Longer Active Tangela Forte Active HYDROCODONE-ACETAMINOPHEN 5-325 MG TABS 1 tab by mouth every 6 hours as needed for bck pain HYDROCODONE-ACETAMINOPHEN 42364809702 No Longer Active Gareth Cancino MD Active ALPRAZOLAM 0.25 MG TAB 1 tablet by mouth q hs prn ALPRAZOLAM 16332885883 Active Gareth Cancino MD Active AZITHROMYCIN 250 MG ORAL TABS 1 tab daily AZITHROMYCIN 41454221699 No Longer Active Gareth Cancino MD Active ZITHROMAX 250 MG TAB 2 po today, then 1 po q days 2-5 AZITHROMYCIN 08433057342 No Longer Active Tangela Rameseret Active IPRATROPIUM-ALBUTEROL 0.5-2.5 (3) MG/3ML INH SOLN nebulize 1 vial every 6hrs prn shortness of breath IPRATROPIUM-ALBUTEROL 08291786260 Active Gareth Cancino MD Active FENTANYL 25 MCG/HR PT72 Apply to clean, dry skin and change every 72 hours FENTANYL 51895046858 No Longer Active Gareth Cancino MD Active WELLBUTRIN SR 150 MG ORAL [id number] take 1 tab po BID BUPROPION HCL 76506074063 No Longer Active Gareth Cancino MD Active ZOFRAN 4 MG ORAL TABS 1 by mouth every 6 hours prn nausea ONDANSETRON HCL 41690628557 Active Tangela Forte Active TRAMADOL HCL 50 MG TABS 1 po tid PRN TRAMADOL HCL 17842489427 Active Gareth Cancino MD Active ALPRAZOLAM 0.25 MG TAB 1/2 to 1 tablet by mouth qhs prn ALPRAZOLAM 56141468074 No Longer Active Gareth Cancino MD Active CLOBETASOL PROPIONATE 0.05 % CREA apply to hand rash bid CLOBETASOL PROPIONATE 92422186933 No Longer Active Gareth Cancino MD Active BACTROBAN 2 % CREAM Apply to affected area BID MUPIROCIN CALCIUM 54748309474 No Longer Active Gareth Cancino MD Active LISINOPRIL 20 MG TABS 1 tablet by mouth daily for high blood pressure 10/14 LISINOPRIL 31679449536 Active Gareth Cancino MD Active BACTRIM DS 800-160 MG TAB 1 tab by mouth twice daily TRIMETHOPRIM-SULFAMETHOXAZOLE 14459882186 No Longer Active Gareth Cancino MD Active METOPROLOL SUCCINATE ER 100 MG [id number] 1 pill by mouth daily, for blood pressure METOPROLOL SUCCINATE 79056517429 Active Gareth Cancino MD Active KEFLEX 500 MG CAP 1 po TID x 10 days CEPHALEXIN 67360828238 No Longer Active Blanca Castillo APRN Active METOPROLOL SUCCINATE 50 MG TB24 1 tablet by mouth daily METOPROLOL SUCCINATE 61241690492 No Longer Active Gareth Cancino MD Active OMEPRAZOLE 20 MG TBEC Take one by mouth daily OMEPRAZOLE 50066151052 No Longer Active Gareth Cancino MD Active OMEPRAZOLE 40 MG CPDR 1 tab po qday for acid reflux. OMEPRAZOLE 52436896011 Active Mary Shah APRN Active LEVAQUIN 500 MG TAB 1 tablet by mouth daily LEVOFLOXACIN 01364287634 No Longer Active Gareth Cancino MD Active ALEVE 220 MG TAB 2 tab po qd NAPROXEN SODIUM 94019085561 Active Gareth Cancino MD Active ASPIRIN 81 MG CHEW TAB 1 tablet by mouth daily ASPIRIN 68328083699 Active Gareth Cancino MD Active VENTOLIN HFA 108 (90 BASE) MCG/ACT AERS 1-2 puffs four times a day PRN shortness of breath ALBUTEROL SULFATE 23053771849 Active Mary Shah APRN Active CENTRUM SILVER TABS 1 TAB PO DAILY MULTIPLE VITAMINS-MINERALS 02863620960 Active Gareth Cancino MD Active VITAMIN B12 100 MCG TABS 1 TAB PO DAILY CYANOCOBALAMIN 61121662700 Active Gareth Cancino MD Active CIPRO 500 MG TABS 1 TAB PO BID CIPROFLOXACIN HCL 66466144796 No Longer Active Gareth Cancino MD Active BACTRIM DS 800-160 MG TAB 1 tab by mouth twice daily TRIMETHOPRIM-SULFAMETHOXAZOLE 77439626055 No Longer Active Gareth Cancino MD Active PREDNISONE 20 MG TAB 1 tab po BID for 3 days, then 1 tab po qday for 3 days PREDNISONE 90186074857 No Longer Active Gareth Cancino MD Active FOLIC ACID 800 MCG TABS Take one by mouth daily FOLIC ACID 63628431642 No Longer Active Gareth Cancino MD Active VITAMIN B-6 250 MG TABS Take one by mouth daily PYRIDOXINE HCL 51418838990 No Longer Active Gareth Cancino MD Active B-12 1000 MCG CAPS Take one by mouth daily CYANOCOBALAMIN 93408970495 No Longer Active Gareth Cancino MD Active DOXYCYCLINE HYCLATE 100 MG CAP 1 cap by mouth twice daily DOXYCYCLINE HYCLATE 93035180635 No Longer Active Gareth Cancino MD Active PREDNISONE 20 MG TAB 1 po bid 3 days, then 1 po q day 3 days 2011 PREDNISONE 24271629388 No Longer Active Gareth Cancino MD Active CHANTIX STARTING MONTH RUBEN 0.5 MG X 11 & 1 MG X 42 TABS 0.5mg daily for 3 days , then 0.5mg BID for 4 days, then 1mg BID VARENICLINE TARTRATE 58348329940 No Longer Active Gareth Cancino MD Active SIMVASTATIN 40 MG TABS Take one by mouth daily SIMVASTATIN 29539029416 Active Gareth Cancino MD Active TRIAMTERENE-HCTZ 37.5-25 MG CAPS Take one by mouth daily TRIAMTERENE- HCTZ 46775898740 Active Gareth Cancino MD Active CHANTIX STARTING [...] 3 days 2011 PREDNISONE 20 MG TAB 280668 PREDNISONE Inactive DOXYCYCLINE HYCLATE 100 MG CAP 1 cap by mouth twice daily DOXYCYCLINE HYCLATE 100 MG CAP 5537950 DOXYCYCLINE HYCLATE Inactive B-12 1000 MCG CAPS Take one by mouth daily B-12 1000 MCG CAPS CYANOCOBALAMIN Inactive VITAMIN B-6 250 MG TABS Take one by mouth daily VITAMIN B-6 250 MG TABS PYRIDOXINE HCL Inactive FOLIC ACID 800 MCG TABS Take one by mouth daily FOLIC ACID 800 MCG TABS 775336 FOLIC ACID Inactive CIPRO 500 MG TABS 1 TAB PO BID CIPRO 500 MG TABS 381968 CIPROFLOXACIN HCL Inactive OMEPRAZOLE 20 MG TBEC Take one by mouth daily OMEPRAZOLE 20 MG [facility] 371305 OMEPRAZOLE Inactive METOPROLOL SUCCINATE 50 MG TB24 1 tablet by mouth daily METOPROLOL SUCCINATE 50 MG TB24 METOPROLOL SUCCINATE Inactive BACTROBAN 2 % CREAM Apply to affected area BID BACTROBAN 2 % CREAM 956922 MUPIROCIN CALCIUM Inactive CLOBETASOL PROPIONATE 0.05 % CREA apply to hand rash bid CLOBETASOL PROPIONATE 0.05 % CREA 575639 CLOBETASOL PROPIONATE Inactive ALPRAZOLAM 0.25 MG TAB 1/2 to 1 tablet by mouth qhs prn ALPRAZOLAM 0.25 MG TAB 169627 ALPRAZOLAM Inactive WELLBUTRIN SR 150 MG ORAL [id number] take 1 tab po BID WELLBUTRIN SR 150 MG ORAL [id number] BUPROPION HCL Inactive AZITHROMYCIN 250 MG ORAL TABS 1 tab daily AZITHROMYCIN 250 MG ORAL TABS 7146536 AZITHROMYCIN Inactive HYDROCODONE-ACETAMINOPHEN 5-325 MG TABS 1 tab by mouth every 6 hours as needed for bck pain HYDROCODONE-ACETAMINOPHEN 5-325 MG TABS 172115 HYDROCODONE-ACETAMINOPHEN Inactive PREDNISONE 20 MG TAB 1 tab po BID for 3 days, then 1 tab po qday for 3 days PREDNISONE 20 MG TAB 243917 PREDNISONE Inactive BACTRIM DS 800-160 MG TAB 1 tab by mouth twice daily BACTRIM DS 800-160 MG TAB 499611 TRIMETHOPRIM-SULFAMETHOXAZOLE Inactive LEVAQUIN 500 MG TAB 1 tablet by mouth daily LEVAQUIN 500 MG TAB 135439 LEVOFLOXACIN Inactive KEFLEX 500 MG CAP 1 po TID x 10 days KEFLEX 500 MG CAP 537180 CEPHALEXIN Inactive BACTRIM DS 800-160 MG TAB 1 tab by mouth twice daily BACTRIM DS 800-160 MG TAB 19820425 TRIMETHOPRIM-SULFAMETHOXAZOLE Inactive FENTANYL 25 MCG/HR PT72 Apply to clean, dry skin and change every 72 hours FENTANYL 25 MCG/HR PT72 952931 FENTANYL Inactive ZITHROMAX 250 MG TAB 2 po today, then 1 po q days 2-5 ZITHROMAX 250 MG TAB 3159841 AZITHROMYCIN Inactive AZITHROMYCIN 250 MG TABS 2 po qd x 1 day, then 1 po qd x 4 days AZITHROMYCIN 250 MG TABS 1624914 AZITHROMYCIN Inactive AZITHROMYCIN 250 MG TABS 2 po qd x 1 day, then 1 po qd x 4 days AZITHROMYCIN 250 MG TABS 6721174 AZITHROMYCIN Inactive PREDNISONE 20 MG TAB take 3 tabs daily for 3 days, 2 tabs daily for 3 days, 1 tab daily for 3 days, 1/2 tab daily for 4 days PREDNISONE 20 MG TAB 515462 PREDNISONE Inactive ZITHROMAX Z-RUBEN 250 MG TABS 2 today, then 1 daily for 4 days 2016 ZITHROMAX Z-RUBEN 250 MG TABS 6141280 AZITHROMYCIN Inactive Vital Signs Date Name Value [...] Panel - Chemistry sodium, serum 133 mmol/L 521-482 0749/08/24 potassium, serum 4.4 mmol/L 3.5-5.2 chloride, serum 95 mmol/L 98-107 carbon dioxide, venous blood 33.0 mmol/L 21.0-32.0 blood glucose 107 mg/dL 65-110 calcium, serum 8.8 mg/dL 8.5-10.1 urea nitrogen, blood 12 mg/dL 7-18 creatinine, serum 0.69 mg/dL 0.55-1.30 Lab Report: CBC, Basic Metabolic Panel - Chemistry sodium, serum 132 mmol/L 325-059 4179/10/12 potassium, serum 4.7 mmol/L 3.5-5.2 chloride, serum [...] CBC - Chemistry sodium, serum 136 mmol/L 977-568 5454/11/01 carbon dioxide, venous blood 32.1 mmol/L 21.0-32.0 [...] Negative Encounters Code Encounter Date Provider Facility CPT-96366 Level 3 Est. Patient 09:05:25 CLIENT ACCOUNT ASSISTANT Mary Shah SPEECH SCIENTIST [facility] CPT-80419 Level 3 Est. Patient 20:53:25 CLIENT ACCOUNT ASSISTANT Gareth Cancino MD [facility]-88995 Level 3 Est. Patient 10:34:55 CDT Gareth Cancino MD [facility]-40832 Level 4 Est. Patient 09:00:18 CDT Gareth Cancino MD [facility]-13852 Level 3 Est. Patient 15:12:03 CDT Gareth Cancino MD [facility]-09635 Level 3 Est. Patient 23:08:20 CDT Gareth Cancino MD [facility]-56458 Level 4 Est. Patient 20:40:10 CDT Gareth Cancino MD [facility]-84836 Level 4 Est. Patient 19:50:11 CDT Gareth Cancino MD [facility]-79755 Level 3 Est. Patient 11:00:13 CDT Gareth Cancino MD [facility]-96194 Level 4 Est. Patient 11:20:21 CDT Gareth Cancino MD [facility]-22451 Level 4 Est. Patient 09:22:18 CLIENT ACCOUNT ASSISTANT Gareth Cancino MD [facility]-13345 Level 3 Est. Patient 09:48:04 CDT Gareth Cancino MD [facility]-37786 Level 3 Est. Patient 10:13:16 CDT Gareth Cancino MD [facility] CPT-21603 Level 2 Est. Patient 18:36:56 CDT Gareth Cancino MD [facility]-20076 Level 4 Est. Patient 13:50:53 CDT Gareth Cancino MD [facility]-22285 Level 3 Est. Patient 14:58:33 CLIENT ACCOUNT ASSISTANT Gareth Cancino MD [facility]-56160 Level 4 Est. Patient 09:25:57 CDT Gareth Cancino MD [facility] CPT-61113 Level 3 Est. Patient 20:39:33 CDT Noman Edwards DO [facility] CPT-53155 Level 2 Est. Patient 13:17:39 CDT Gareth Cancino MD [facility] CPT-40583 Level 3 Est. Patient 13:37:20 CDT Gareth Cancino MD [facility] CPT-26134 Level 3 Est. Patient 18:09:08 CDT Gareth Cancino MD [facility] CPT-33271 Level 4 Est. Patient 09:59:07 CDT Gareth Cancino MD [facility] Procedures Code Procedure Name Date Entry Date Standard Description CPT-000 Give Appropriate Flu Vaccine 09:29:52 CLIENT ACCOUNT ASSISTANT CPT-000 Give Appropriate Flu Vaccine 09:22:20 CLIENT ACCOUNT ASSISTANT CPT-76576 TSH - LAB USE ONLY 08:11:40 CLIENT ACCOUNT ASSISTANT CPT-75388 Free T4 - LAB USE ONLY 08:11:40 CLIENT ACCOUNT ASSISTANT CPT-00236 Venipuncture Draw Fee 08:11:40 CLIENT ACCOUNT ASSISTANT CPT-51508 UA w micro - LAB USE ONLY 14:26:22 CLIENT ACCOUNT ASSISTANT CPT-G0438 Initial Annual Wellness Exam 20:53:25 CLIENT ACCOUNT ASSISTANT CPT-G0009 Administration of Pneumococcal Vaccine 11:42:53 CLIENT ACCOUNT ASSISTANT CPT-39140 Prevnar 13 Intramuscular Suspension 11:42:53 CLIENT ACCOUNT ASSISTANT 01/07 CPT-86938 First Vx - Ix admin for Medicare patients 11:39:44 CLIENT ACCOUNT ASSISTANT CPT-08811 Fluzone High-Dose Intramuscular Suspension 11:39:44 CLIENT ACCOUNT ASSISTANT CPT-72791 Prevnar 13 Intramuscular Suspension 09:29:52 CLIENT ACCOUNT ASSISTANT 01/07 CPT-64411 CMP - LAB USE ONLY 16:31:15 CDT CPT-86286 CBC - LAB USE ONLY 16:31:14 CDT CPT-99897 Venipuncture Draw Fee 16:31:14 CDT CPT-93999 BMP - LAB USE ONLY 14:37:27 CDT CPT-48005 CBC - LAB USE ONLY 14:37:27 CDT CPT-15932 Venipuncture Draw Fee 14:37:27 CDT CPT-TCMM Transitional Care Mgmt-Moderate 14:43:38 CDT CPT-33275 Venipuncture Draw Fee 10:33:47 CDT CPT-77442 BMP - LAB USE ONLY 10:33:46 CDT CPT-Cryo Cryotherapy 15:12:03 CDT CPT-85224 LS spine AP and Lat - XRAY USE ONLY 10:31:51 CDT 07/27 CPT-40014 Punch biopsy 1 lsn 20:40:09 CDT CPT-G0008 Administration of Influenza Virus Vaccine 10:04:48 CLIENT ACCOUNT ASSISTANT CPT-97903 Fluzone High-Dose Intramuscular Suspension 10:04:48 CLIENT ACCOUNT ASSISTANT CPT-74357 Ribs unilat w PA chst min 3V 10:45:40 CDT CPT-LR Lesion Removal 13:14:55 CDT CPT-Cryo Cryotherapy 13:14:55 CDT CPT-75586 Venipuncture Draw Fee 10:25:49 CDT CPT-73590 Administration single or combination vaccine inc oral 13 :22:14 CLIENT ACCOUNT ASSISTANT CPT-62773 Influenza High Dose age 65+ 13:22:14 CLIENT ACCOUNT ASSISTANT
--- OUTSIDE RECORDS SUMMARY | 2016-12-06 09:32 | XMS REPORT | Clinical Summary ---
Author Author Admin, HILARIA Organization [employer] Address Unknown Phone Unavailable Allergies, Adverse Reactions, [...] MD Other seborrheic keratosis COPD 496 Active Garteh Cancino MD Chronic airway obstruction, not elsewhere [...] 1/2 tab daily for 4 days PREDNISONE 03248371692 No Longer Active Mary Shah APRN Active LEVAQUIN 500 MG TAB 1 tablet by mouth daily for 7 days LEVOFLOXACIN 85749612923 Active Mary Shah APRN Active AZITHROMYCIN 250 MG TABS 2 po qd x 1 day, then 1 po qd x 4 days AZITHROMYCIN 99631154606 No Longer Active Danuta Modi Active AZITHROMYCIN 250 MG TABS 2 po qd x 1 day, then 1 po qd x 4 days AZITHROMYCIN 52558143080 No Longer Active Tangela Forte Active HYDROCODONE-ACETAMINOPHEN 5-325 MG TABS 1 tab by mouth every 6 hours as needed for bck pain HYDROCODONE-ACETAMINOPHEN 69000819808 No Longer Active Gareth Cancino MD Active FENTANYL 12 MCG/HR PT72 Apply to clean, dry skin and change every 72 hours FENTANYL 85292790465 Active Gareth Cancino MD Active ALPRAZOLAM 0.25 MG TAB 1 tablet by mouth q hs prn ALPRAZOLAM 57025082327 Active Gareth Cancino MD Active AZITHROMYCIN 250 MG ORAL TABS 1 tab daily AZITHROMYCIN 33542836820 No Longer Active Gareth Cancino MD Active ZITHROMAX 250 MG TAB 2 po today, then 1 po q days 2-5 AZITHROMYCIN 14907624924 No Longer Active Tangela Forte Active IPRATROPIUM-ALBUTEROL 0.5-2.5 (3) MG/3ML INH SOLN nebulize 1 vial every 6hrs prn shortness of breath IPRATROPIUM-ALBUTEROL 36596981604 Active Gareth Cancino MD Active FENTANYL 25 MCG/HR PT72 Apply to clean, dry skin and change every 72 hours FENTANYL 95168438616 No Longer Active Gareth Cancino MD Active WELLBUTRIN SR 150 MG ORAL [id number] take 1 tab po BID BUPROPION HCL 79648151589 No Longer Active Gareth Cancino MD Active ZOFRAN 4 MG ORAL TABS 1 by mouth every 6 hours prn nausea ONDANSETRON HCL 39971653702 Active Tangela Forte Active TRAMADOL HCL 50 MG TABS 1 po tid PRN TRAMADOL HCL 77626908625 Active Gareth Cancino MD Active ALPRAZOLAM 0.25 MG TAB 1/2 to 1 tablet by mouth qhs prn ALPRAZOLAM 87511743183 No Longer Active Gareth Cancino MD Active CLOBETASOL PROPIONATE 0.05 % CREA apply to hand rash bid CLOBETASOL PROPIONATE 43160204981 No Longer Active Gareth Cancino MD Active BACTROBAN 2 % CREAM Apply to affected area BID MUPIROCIN CALCIUM 99796970613 No Longer Active Gareth Cancino MD Active LISINOPRIL 20 MG TABS 1 tablet by mouth daily for high blood pressure 10/14 LISINOPRIL 26281880845 Active Mary Shah APRN Active BACTRIM DS 800-160 MG TAB 1 tab by mouth twice daily TRIMETHOPRIM-SULFAMETHOXAZOLE 12152909806 No Longer Active Gareth Cancino MD Active METOPROLOL SUCCINATE ER 100 MG [id number] 1 pill by mouth daily, for blood pressure METOPROLOL SUCCINATE 59966114635 Active Mary Shah APRN Active KEFLEX 500 MG CAP 1 po TID x 10 days CEPHALEXIN 53646550322 No Longer Active Blanca Castillo APRN Active METOPROLOL SUCCINATE 50 MG TB24 1 tablet by mouth daily METOPROLOL SUCCINATE 43950931573 No Longer Active Gareth Cancino MD Active OMEPRAZOLE 20 MG TBEC Take one by mouth daily OMEPRAZOLE 78663437375 No Longer Active Gareth Cancino MD Active OMEPRAZOLE 40 MG CPDR 1 tab po qday for acid reflux. 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 CENTRUM SILVER TABS 1 TAB PO DAILY MULTIPLE VITAMINS-MINERALS 93690053840 Active Gareth Cancino MD Active VITAMIN B12 100 MCG TABS 1 TAB PO DAILY CYANOCOBALAMIN 63720622419 Active Gareth Cancino MD Active CIPRO 500 MG TABS 1 TAB PO BID CIPROFLOXACIN HCL 78165045401 No Longer Active Gareth Cancino MD Active BACTRIM DS 800-160 MG TAB 1 tab by mouth twice daily TRIMETHOPRIM-SULFAMETHOXAZOLE 28830933038 No Longer Active Gareth Cancino MD Active PREDNISONE 20 MG TAB 1 tab po BID for 3 days, then 1 tab po qday for 3 days PREDNISONE 84463984071 No Longer Active Gareth Cancino MD Active FOLIC ACID 800 MCG TABS Take one by mouth daily FOLIC ACID 58566613626 No Longer Active Gareth Cancino MD Active VITAMIN B-6 250 MG TABS Take one by mouth daily PYRIDOXINE HCL 76010209753 No Longer Active Gareth Cancino MD Active B-12 1000 MCG CAPS Take one by mouth daily CYANOCOBALAMIN 17079918570 No Longer Active Gareth Cancino MD Active DOXYCYCLINE HYCLATE 100 MG CAP 1 cap by mouth twice daily DOXYCYCLINE HYCLATE 30119463335 No Longer Active Gareth Cancino MD Active PREDNISONE 20 MG TAB 1 po bid 3 days, then 1 po q day 3 days 2011 PREDNISONE 71891828172 No Longer Active Gareth Cancino MD Active CHANTIX STARTING MONTH RUBEN 0.5 MG X 11 & 1 MG X 42 TABS 0.5mg daily for 3 days , then 0.5mg BID for 4 days, then 1mg BID VARENICLINE TARTRATE 65439855577 No Longer Active Gareth Cancino MD Active SIMVASTATIN 40 MG TABS Take one by mouth daily SIMVASTATIN 04968536661 Active Gareth Cancino MD Active TRIAMTERENE-HCTZ 37.5-25 MG CAPS Take one by mouth daily TRIAMTERENE- HCTZ 49533362227 Active Gareth Cancino MD Active CHANTIX STARTING [...] 3 days 2011 PREDNISONE 20 MG TAB 271378 PREDNISONE Inactive DOXYCYCLINE HYCLATE 100 MG CAP 1 cap by mouth twice daily DOXYCYCLINE HYCLATE 100 MG CAP 8242461 DOXYCYCLINE HYCLATE Inactive B-12 1000 MCG CAPS Take one by mouth daily B-12 1000 MCG CAPS CYANOCOBALAMIN Inactive VITAMIN B-6 250 MG TABS Take one by mouth daily VITAMIN B-6 250 MG TABS PYRIDOXINE HCL Inactive FOLIC ACID 800 MCG TABS Take one by mouth daily FOLIC ACID 800 MCG TABS 749804 FOLIC ACID Inactive CIPRO 500 MG TABS 1 TAB PO BID CIPRO 500 MG TABS 595130 CIPROFLOXACIN HCL Inactive OMEPRAZOLE 20 MG TBEC Take one by mouth daily OMEPRAZOLE 20 MG TBEC 686380 OMEPRAZOLE Inactive METOPROLOL SUCCINATE 50 MG TB24 1 tablet by mouth daily METOPROLOL SUCCINATE 50 MG TB24 METOPROLOL SUCCINATE Inactive BACTROBAN 2 % CREAM Apply to affected area BID BACTROBAN 2 % CREAM 889634 MUPIROCIN CALCIUM Inactive CLOBETASOL PROPIONATE 0.05 % CREA apply to hand rash bid CLOBETASOL PROPIONATE 0.05 % CREA 151068 CLOBETASOL PROPIONATE Inactive ALPRAZOLAM 0.25 MG TAB 1/2 to 1 tablet by mouth qhs prn ALPRAZOLAM 0.25 MG TAB 738966 ALPRAZOLAM Inactive WELLBUTRIN SR 150 MG ORAL [id number] take 1 tab po BID WELLBUTRIN SR 150 MG ORAL [id number] BUPROPION HCL Inactive AZITHROMYCIN 250 MG ORAL TABS 1 tab daily AZITHROMYCIN 250 MG ORAL TABS 1654326 AZITHROMYCIN Inactive HYDROCODONE-ACETAMINOPHEN 5-325 MG TABS 1 tab by mouth every 6 hours as needed for bck pain HYDROCODONE-ACETAMINOPHEN 5-325 MG TABS 888134 HYDROCODONE-ACETAMINOPHEN Inactive PREDNISONE 20 MG TAB 1 tab po BID for 3 days, then 1 tab po qday for 3 days PREDNISONE 20 MG TAB 017804 PREDNISONE Inactive BACTRIM DS 800-160 MG TAB 1 tab by mouth twice daily BACTRIM DS 800-160 MG TAB 783680 TRIMETHOPRIM-SULFAMETHOXAZOLE Inactive LEVAQUIN 500 MG TAB 1 tablet by mouth daily LEVAQUIN 500 MG TAB 260637 LEVOFLOXACIN Inactive KEFLEX 500 MG CAP 1 po TID x 10 days KEFLEX 500 MG CAP 889493 CEPHALEXIN Inactive BACTRIM DS 800-160 MG TAB 1 tab by mouth twice daily BACTRIM DS 800-160 MG TAB 19820425 TRIMETHOPRIM-SULFAMETHOXAZOLE Inactive FENTANYL 25 MCG/HR PT72 Apply to clean, dry skin and change every 72 hours FENTANYL 25 MCG/HR PT72 877510 FENTANYL Inactive ZITHROMAX 250 MG TAB 2 po today, then 1 po q days 2-5 ZITHROMAX 250 MG TAB 5033536 AZITHROMYCIN Inactive AZITHROMYCIN 250 MG TABS 2 po qd x 1 day, then 1 po qd x 4 days AZITHROMYCIN 250 MG TABS 5140498 AZITHROMYCIN Inactive AZITHROMYCIN 250 MG TABS 2 po qd x 1 day, then 1 po qd x 4 days AZITHROMYCIN 250 MG TABS 7247789 AZITHROMYCIN Inactive PREDNISONE 20 MG TAB take 3 tabs daily for 3 days, 2 tabs daily for 3 days, 1 tab daily for 3 days, 1/2 tab daily for 4 days PREDNISONE 20 MG TAB 874862 PREDNISONE Inactive Vital Signs Date Name Value [...] Panel - Chemistry sodium, serum 133 mmol/L 686-614 9422/08/24 potassium, serum 4.4 mmol/L 3.5-5.2 chloride, serum 95 mmol/L 98-107 carbon dioxide, venous blood 33.0 mmol/L 21.0-32.0 blood glucose 107 mg/dL 65-110 calcium, serum 8.8 mg/dL 8.5-10.1 urea nitrogen, blood 12 mg/dL 7-18 creatinine, serum 0.69 mg/dL 0.55-1.30 Lab Report: CBC, Basic Metabolic Panel - Chemistry sodium, serum 132 mmol/L 178-730 3230/10/12 potassium, serum 4.7 mmol/L 3.5-5.2 chloride, serum [...] CBC - Chemistry sodium, serum 136 mmol/L 571-867 5033/11/01 carbon dioxide, venous blood 32.1 mmol/L 21.0-32.0 [...] Negative Encounters Code Encounter Date Provider Facility CPT-59341 Level 3 Est. Patient 09:05:25 BANDER Mary Shah APRN [facility] CPT-91609 Level 3 Est. Patient 20:53:25 BANDER Gareth Cancino MD [facility] CPT-37905 Level 3 Est. Patient 10:34:55 CDT Gareth Cancino MD [facility] CPT-75227 Level 4 Est. Patient 09:00:18 CDT Gareth Cancino MD [facility] CPT-96299 Level 3 Est. Patient 15:12:03 CDT Gareth Cancino MD [facility] CPT-58141 Level 3 Est. Patient 23:08:20 CDT Gareth Cancino MD [facility] CPT-88630 Level 4 Est. Patient 20:40:10 CDT Gareth Cancino MD [facility] CPT-21354 Level 4 Est. Patient 19:50:11 CDT Gareth Cancino MD [facility] CPT-82169 Level 3 Est. Patient 11:00:13 CDT Gareth Cancino MD [facility] CPT-61962 Level 4 Est. Patient 11:20:21 CDT Gareth Cancino MD [facility]-38064 Level 4 Est. Patient 09:22:18 BANDER Gareth Cancnio MD [facility] CPT-96214 Level 3 Est. Patient 09:48:04 CDT Gareth Cancino MD [facility] CPT-14697 Level 3 Est. Patient 10:13:16 CDT Gareth Cancino MD [facility] CPT-43291 Level 2 Est. Patient 18:36:56 CDT Gareth Cancino MD [facility] CPT-13221 Level 4 Est. Patient 13:50:53 CDT Gareth Cancino MD [facility] CPT-93465 Level 3 Est. Patient 14:58:33 BANDER Gareth Cancino MD [facility] CPT-52380 Level 4 Est. Patient 09:25:57 CDT Gareth Cancino MD [facility] CPT-86236 Level 3 Est. Patient 20:39:33 CDT Noman Edwards DO [facility] CPT-06909 Level 2 Est. Patient 13:17:39 CDT Gareth Cancino MD [facility] CPT-49365 Level 3 Est. Patient 13:37:20 CDT Gareth Cancino MD [facility] CPT-38864 Level 3 Est. Patient 18:09:08 CDT Gareth Cancino MD [facility] CPT-63943 Level 4 Est. Patient 09:59:07 CDT Gareth Cancino MD [facility] Procedures Code Procedure Name Date Entry Date Standard Description CPT-000 Give Appropriate Flu Vaccine 09:29:52 BANDER CPT-000 Give Appropriate Flu Vaccine 09:22:20 BANDER CPT-25820 TSH - LAB USE ONLY 08:11:40 BANDER CPT-51661 Free T4 - LAB USE ONLY 08:11:40 BANDER CPT-98666 Venipuncture Draw Fee 08:11:40 BANDER CPT-94374 UA w micro - LAB USE ONLY 14:26:22 BANDER CPT-G0438 Initial Annual Wellness Exam 20:53:25 BANDER CPT-G0009 Administration of Pneumococcal Vaccine 11:42:53 BANDER CPT-51129 Prevnar 13 Intramuscular Suspension 11:42:53 BANDER 01/07 CPT-43298 First Vx - Ix admin for Medicare patients 11:39:44 BANDER CPT-88445 Fluzone High-Dose Intramuscular Suspension 11:39:44 BANDER CPT-58149 Prevnar 13 Intramuscular Suspension 09:29:52 BANDER 01/07 CPT-11250 CMP - LAB USE ONLY 16:31:15 CDT CPT-34340 CBC - LAB USE ONLY 16:31:14 CDT CPT-90382 Venipuncture Draw Fee 16:31:14 CDT CPT-08524 BMP - LAB USE ONLY 14:37:27 CDT CPT-99988 CBC - LAB USE ONLY 14:37:27 CDT CPT-04928 Venipuncture Draw Fee 14:37:27 CDT CPT-TCMM Transitional Care Mgmt-Moderate 14:43:38 CDT CPT-21244 Venipuncture Draw Fee 10:33:47 CDT CPT-68123 BMP - LAB USE ONLY 10:33:46 CDT CPT-Cryo Cryotherapy 15:12:03 CDT CPT-55395 LS spine AP and Lat - XRAY USE ONLY 10:31:51 CDT 07/27 CPT-62969 Punch biopsy 1 lsn 20:40:09 CDT CPT-G0008 Administration of Influenza Virus Vaccine 10:04:48 BANDER CPT-61100 Fluzone High-Dose Intramuscular Suspension 10:04:48 BANDER CPT-97800 Ribs unilat w PA chst min 3V 10:45:40 CDT CPT-LR Lesion Removal 13:14:55 CDT CPT-Cryo Cryotherapy 13:14:55 CDT CPT-92532 Venipuncture Draw Fee 10:25:49 CDT CPT-20607 Administration single or combination vaccine inc oral 13 :22:14 BANDER CPT-22138 Influenza High Dose age 65+ 13:22:14 BANDER
--- OUTSIDE RECORDS SUMMARY | 2016-12-06 09:33 | XMS REPORT | Clinical Summary ---
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 Unspecified disorder of skin and subcutaneous tissue Folliculitis 704.8 Active Gareth Cancino MD Other specified diseases of hair and hair follicles Low back pain, chronic 724.2 Active Gareth Cancino MD Lumbago Frequency of urination 788.41 Active Negin Garcia MOLECULAR TECHNOLOGIST Urinary frequency Actinic keratosis 702.0 Active Gareth [...] every 6hrs prn shortness of breath IPRATROPIUM-ALBUTEROL 10336465344 Active Gareth Cancino MD Active FENTANYL 25 MCG/HR PT72 Apply to clean, dry skin and change every 72 hours FENTANYL 82656015196 Active Gareth Cancino MD Active AZITHROMYCIN 250 MG ORAL TABS 1 tab daily AZITHROMYCIN 26163699835 Active Gareth Cancino MD Active WELLBUTRIN SR 150 MG ORAL [id number] take 1 tab po BID BUPROPION HCL 37153992155 No Longer Active Gareth Cancino MD Active ZOFRAN 4 MG ORAL TABS 1 by mouth every 6 hours prn nausea ONDANSETRON HCL 88294510716 Active Tangela Forte Active TRAMADOL HCL 50 MG TABS 1 po tid PRN TRAMADOL HCL 64968071712 Active Danuta Modi Active HYDROCODONE-ACETAMINOPHEN 5-325 MG TABS 1 tab by mouth every 6 hours as needed for bck pain HYDROCODONE-ACETAMINOPHEN 75209815902 Active Gareth Cancino MD Active ALPRAZOLAM 0.25 MG TAB 1/2 to 1 tablet by mouth qhs prn ALPRAZOLAM 01934398471 No Longer Active Gareth Cancino MD Active CLOBETASOL PROPIONATE 0.05 % CREA apply to hand rash bid CLOBETASOL PROPIONATE 43112882238 No Longer Active Gareth Cancino MD Active BACTROBAN 2 % CREAM Apply to affected area BID MUPIROCIN CALCIUM 41482799567 No Longer Active Gareth Cancino MD Active LISINOPRIL 20 MG TABS 1 tablet by mouth daily for high blood pressure 10/14 LISINOPRIL 95378994807 Active Gareth Cancino MD Active BACTRIM DS 800-160 MG TAB 1 tab by mouth twice daily TRIMETHOPRIM-SULFAMETHOXAZOLE 40827538762 No Longer Active Gareth Cancino MD Active METOPROLOL SUCCINATE ER 100 MG [id number] 1 pill by mouth daily, for blood pressure METOPROLOL SUCCINATE 82119263656 Active Gareth Cancino MD Active KEFLEX 500 MG CAP 1 po TID x 10 days CEPHALEXIN 30847955122 No Longer Active Blanca Castillo APRN Active METOPROLOL SUCCINATE 50 MG TB24 1 tablet by mouth daily METOPROLOL SUCCINATE 40319609314 No Longer Active Gareth Cancino MD Active OMEPRAZOLE 20 MG TBEC Take one by mouth daily OMEPRAZOLE 20437805232 No Longer Active Gareth Cancino MD Active OMEPRAZOLE 40 MG CPDR 1 tab po qday for acid reflux. OMEPRAZOLE 39902401198 Active Mary Shah APRN Active LEVAQUIN 500 MG TAB 1 tablet by mouth daily LEVOFLOXACIN 20309100833 No Longer Active Gareth Cancino MD Active ALEVE 220 MG TAB 2 tab po qd NAPROXEN SODIUM 78252126403 Active Gareth Cancino MD Active ASPIRIN 81 MG CHEW TAB 1 tablet by mouth daily ASPIRIN 58206286409 Active Gareth Cancino MD Active VENTOLIN HFA 108 (90 BASE) MCG/ACT AERS 1-2 puffs four times a day PRN shortness of breath ALBUTEROL SULFATE 18082780771 Active Mary Shah APRN Active CENTRUM SILVER TABS 1 TAB PO DAILY MULTIPLE VITAMINS-MINERALS 69255744997 Active Gareth Cancino MD Active VITAMIN B12 100 MCG TABS 1 TAB PO DAILY CYANOCOBALAMIN 78641572540 Active Gareth Cancino MD Active CIPRO 500 MG TABS 1 TAB PO BID CIPROFLOXACIN HCL 71822668349 No Longer Active Gareth Cancino MD Active BACTRIM DS 800-160 MG TAB 1 tab by mouth twice daily TRIMETHOPRIM-SULFAMETHOXAZOLE 11580427108 No Longer Active Gareth Cancino MD Active PREDNISONE 20 MG TAB 1 tab po BID for 3 days, then 1 tab po qday for 3 days PREDNISONE 54210362296 No Longer Active Gareth Cancino MD Active FOLIC ACID 800 MCG TABS Take one by mouth daily FOLIC ACID 58169099211 No Longer Active Gareth Cancino MD Active VITAMIN B-6 250 MG TABS Take one by mouth daily PYRIDOXINE HCL 53815798722 No Longer Active Gareth Cancino MD Active B-12 1000 MCG CAPS Take one by mouth daily CYANOCOBALAMIN 92100670555 No Longer Active Gareth Cancino MD Active DOXYCYCLINE HYCLATE 100 MG CAP 1 cap by mouth twice daily DOXYCYCLINE HYCLATE 02110472572 No Longer Active Gareth Cancino MD Active PREDNISONE 20 MG TAB 1 po bid 3 days, then 1 po q day 3 days 2011 PREDNISONE 75648398377 No Longer Active Gareth Cancino MD Active CHANTIX STARTING MONTH RUBEN 0.5 MG X 11 & 1 MG X 42 TABS 0.5mg daily for 3 days , then 0.5mg BID for 4 days, then 1mg BID VARENICLINE TARTRATE 43508952206 No Longer Active Gareth Cancino MD Active SIMVASTATIN 40 MG TABS Take one by mouth daily SIMVASTATIN 81566034401 Active Gareth Cancino MD Active TRIAMTERENE-HCTZ 37.5-25 MG CAPS Take one by mouth daily TRIAMTERENE- HCTZ 48281523907 Active Gareth Cancino MD Active CHANTIX STARTING [...] 3 days 2011 PREDNISONE 20 MG TAB 520502 PREDNISONE Inactive DOXYCYCLINE HYCLATE 100 MG CAP 1 cap by mouth twice daily DOXYCYCLINE HYCLATE 100 MG CAP 0066984 DOXYCYCLINE HYCLATE Inactive B-12 1000 MCG CAPS Take one by mouth daily B-12 1000 MCG CAPS CYANOCOBALAMIN Inactive VITAMIN B-6 250 MG TABS Take one by mouth daily VITAMIN B-6 250 MG TABS PYRIDOXINE HCL Inactive FOLIC ACID 800 MCG TABS Take one by mouth daily FOLIC ACID 800 MCG TABS 954676 FOLIC ACID Inactive CIPRO 500 MG TABS 1 TAB PO BID CIPRO 500 MG TABS 255509 CIPROFLOXACIN HCL Inactive OMEPRAZOLE 20 MG TBEC Take one by mouth daily OMEPRAZOLE 20 MG TBEC 548223 OMEPRAZOLE Inactive METOPROLOL SUCCINATE 50 MG TB24 1 tablet by mouth daily METOPROLOL SUCCINATE 50 MG TB24 METOPROLOL SUCCINATE Inactive BACTROBAN 2 % CREAM Apply to affected area BID BACTROBAN 2 % CREAM 974733 MUPIROCIN CALCIUM Inactive CLOBETASOL PROPIONATE 0.05 % CREA apply to hand rash bid CLOBETASOL PROPIONATE 0.05 % CREA 396076 CLOBETASOL PROPIONATE Inactive ALPRAZOLAM 0.25 MG TAB 1/2 to 1 tablet by mouth qhs prn ALPRAZOLAM 0.25 MG TAB 830536 ALPRAZOLAM Inactive WELLBUTRIN SR 150 MG ORAL [id number] take 1 tab po BID WELLBUTRIN SR 150 MG ORAL [id number] BUPROPION HCL Inactive PREDNISONE 20 MG TAB 1 tab po BID for 3 days, then 1 tab po qday for 3 days PREDNISONE 20 MG TAB 142772 PREDNISONE Inactive BACTRIM DS 800-160 MG TAB 1 tab by mouth twice daily BACTRIM DS 800-160 MG TAB 760180 TRIMETHOPRIM-SULFAMETHOXAZOLE Inactive LEVAQUIN 500 MG TAB 1 tablet by mouth daily LEVAQUIN 500 MG TAB 961458 LEVOFLOXACIN Inactive KEFLEX 500 MG CAP 1 po TID x 10 days KEFLEX 500 MG CAP 030169 CEPHALEXIN Inactive BACTRIM DS 800-160 MG TAB 1 tab by mouth twice daily BACTRIM DS 800-160 MG TAB 983786 TRIMETHOPRIM-SULFAMETHOXAZOLE Inactive Vital Signs Date Name Value [...] Panel - Chemistry sodium, serum 133 mmol/L 362-441 8550/08/24 potassium, serum 4.4 mmol/L 3.5-5.2 chloride, serum 95 mmol/L 98-107 carbon dioxide, venous blood 33.0 mmol/L 21.0-32.0 blood glucose 107 mg/dL 65-110 calcium, serum 8.8 mg/dL 8.5-10.1 urea nitrogen, blood 12 mg/dL 7-18 creatinine, serum 0.69 mg/dL 0.55-1.30 Lab Report: CBC, Basic Metabolic Panel - Chemistry sodium, serum 132 mmol/L 898-382 0784/10/12 potassium, serum 4.7 mmol/L 3.5-5.2 chloride, serum [...] Panel, CBC W/DIFF, MICROALB/CRE ... - Chemistry carbon dioxide, venous blood 30.3 mmol/L 21.0-32.0 [...] mg/g mg/g{creat} 0-29 sodium, serum 134 mmol/L 501-672 6517/12/02 LDL cholesterol, serum 128 mg/dL 0-130 HDL cholesterol, serum 52 mg/dL 32-96 triglyceride, serum, fasting 74 mg/dL 30-200 cholesterol, serum 195 mg/dL 130-200 Lab Report: Lipid Panel, Comp. Metabolic Panel, [...] Negative Encounters Code Encounter Date Provider Facility CPT-62241 Level 4 Est. Patient 09:00:18 CDT Gareth Cancino MD [facility]-74325 Level 3 Est. Patient 15:12:03 CDT Gareth Cancino MD [facility] CPT-04762 Level 3 Est. Patient 23:08:20 CDT Gareth Cancino MD [facility]-36893 Level 4 Est. Patient 20:40:10 CDT Gareth Cancino MD [facility]-95859 Level 4 Est. Patient 19:50:11 CDT Gareth Cancino MD [facility] CPT-75650 Level 3 Est. Patient 11:00:13 CDT Gareth Cancino MD [facility]-72690 Level 4 Est. Patient 11:20:21 CDT Gareth Cancino MD [facility]-15957 Level 4 Est. Patient 09:22:18 [employer] Gareth Cancino MD [facility] CPT-88594 Level 3 Est. Patient 09:48:04 CDT Gareth Cancino MD [facility]-69655 Level 3 Est. Patient 10:13:16 CDT Gareth Cancino MD [facility] CPT-79398 Level 2 Est. Patient 18:36:56 CDT Gareth Cancino MD [facility] CPT-49888 Level 4 Est. Patient 13:50:53 CDT Gareth Cancino MD [facility] CPT-98036 Level 3 Est. Patient 14:58:33 [employer] Gareth Cancino MD [facility]-58904 Level 4 Est. Patient 09:25:57 CDT Gareth Cancino MD [facility]-28358 Level 3 Est. Patient 20:39:33 CDT Noman Edwards DO [facility] CPT-58942 Level 2 Est. Patient 13:17:39 CDT Gareth Cancino MD [facility] CPT-52524 Level 3 Est. Patient 13:37:20 CDT Gareth Cancino MD [facility] CPT-77364 Level 3 Est. Patient 18:09:08 CDT Gareth Cancino MD [facility] CPT-27296 Level 4 Est. Patient 09:59:07 CDT Gareth Cancino MD [facility] Procedures Code Procedure Name Date Entry Date Standard Description CPT-TCMM Transitional Care Mgmt-Moderate 14:43:38 CDT CPT-69159 Venipuncture Draw Fee 10:33:47 CDT CPT-02134 BMP - LAB USE ONLY 10:33:46 CDT CPT-Cryo Cryotherapy 15:12:03 CDT CPT-66036 LS spine AP and Lat - XRAY USE ONLY 10:31:51 CDT 07/27 CPT-93015 Punch biopsy 1 lsn 20:40:09 CDT CPT-G0008 Administration of Influenza Virus Vaccine 10:04:48 [employer] CPT-46713 Fluzone High-Dose Intramuscular Suspension 10:04:48 [employer]TAIN HEM[employer]OMAT[employer] CPT-11290 Ribs unilat w PA chst min 3V 10:45:40 CDT CPT-LR Lesion Removal 13:14:55 CDT CPT-Cryo Cryotherapy 13:14:55 CDT CPT-27290 Venipuncture Draw Fee 10:25:49 CDT CPT-82321 Administration single or combination vaccine inc oral 13 :22:14 [employer] CPT-88820 Influenza High Dose age 65+ 13:22:14 [employer]TAIN H[employer]
--- OUTSIDE RECORDS SUMMARY | 2016-12-06 09:34 | XMS REPORT | Clinical Summary ---
Author Author Admin, HILARIA Organization [facility] Address Unknown Phone Unavailable Allergies, Adverse Reactions, [...] daily for high blood pressure 10/14 LISINOPRIL 97071389107 Active Gareth Cancino MD Active BACTROBAN 2 % CREAM Apply to affected area BID MUPIROCIN CALCIUM 23652635320 Active Gareth Cancino MD Active BACTRIM DS 800-160 MG TAB 1 tab by mouth twice daily TRIMETHOPRIM-SULFAMETHOXAZOLE 90800023379 No Longer Active Gareth Cancino MD Active METOPROLOL SUCCINATE ER 100 MG [id number] 1 pill by mouth daily, for blood pressure METOPROLOL SUCCINATE 68552041747 Active Gareth Cancino MD Active KEFLEX 500 MG CAP 1 po TID x 10 days CEPHALEXIN 87208466942 No Longer Active Jillina Frazell FRANCINE Active CLOBETASOL PROPIONATE 0.05 % CREA apply to hand rash bid CLOBETASOL PROPIONATE 16498921910 Active Gareth Cancino MD Active WELLBUTRIN SR 150 MG ORAL [id number] take 1 tab po BID BUPROPION HCL 06487376625 Active Gareth Cancino MD Active METOPROLOL SUCCINATE 50 MG TB24 1 tablet by mouth daily METOPROLOL SUCCINATE 59459184024 No Longer Active Gareth Cancino MD Active OMEPRAZOLE 20 MG TBEC Take one by mouth daily OMEPRAZOLE 82122314559 No Longer Active Gareth Cancino MD Active OMEPRAZOLE 40 MG CPDR 1 tab po qday for acid reflux. OMEPRAZOLE 23340142924 Active Mary Shah APRN Active LEVAQUIN 500 MG TAB 1 tablet by mouth daily LEVOFLOXACIN 07615073117 No Longer Active Gareth Cancino MD Active ALEVE 220 MG TAB 2 tab po qd NAPROXEN SODIUM 04383620119 Active Gareth Cancino MD Active ASPIRIN 81 MG CHEW TAB 1 tablet by mouth daily ASPIRIN 07140479353 Active Gareth Cancino MD Active VENTOLIN HFA 108 (90 BASE) MCG/ACT AERS 1-2 puffs four times a day PRN shortness of breath ALBUTEROL SULFATE 58493732524 Active Mary Pablo PIGMENT MIXER Active CENTRUM SILVER TABS 1 TAB PO DAILY MULTIPLE VITAMINS-MINERALS 63036735409 Active Gareth Cancino MD Active VITAMIN B12 100 MCG TABS 1 TAB PO DAILY CYANOCOBALAMIN 38521774718 Active Gareth Cancino MD Active CIPRO 500 MG TABS 1 TAB PO BID CIPROFLOXACIN HCL 27561002863 No Longer Active Gareth Cancino MD Active BACTRIM DS 800-160 MG TAB 1 tab by mouth twice daily TRIMETHOPRIM-SULFAMETHOXAZOLE 90315953658 No Longer Active Gareth Cancino MD Active PREDNISONE 20 MG TAB 1 tab po BID for 3 days, then 1 tab po qday for 3 days PREDNISONE 32870039896 No Longer Active Gareth Cancino MD Active FOLIC ACID 800 MCG TABS Take one by mouth daily FOLIC ACID 33350333985 No Longer Active Gareth Cancino MD Active VITAMIN B-6 250 MG TABS Take one by mouth daily PYRIDOXINE HCL 00207810385 No Longer Active Gareth Cancino MD Active B-12 1000 MCG CAPS Take one by mouth daily CYANOCOBALAMIN 89729223488 No Longer Active Gareth Cancino MD Active DOXYCYCLINE HYCLATE 100 MG CAP 1 cap by mouth twice daily DOXYCYCLINE HYCLATE 52854289200 No Longer Active Gareth Cancino MD Active PREDNISONE 20 MG TAB 1 po bid 3 days, then 1 po q day 3 days 2011 PREDNISONE 19753901341 No Longer Active Gareth Cancino MD Active CHANTIX STARTING MONTH RUBEN 0.5 MG X 11 & 1 MG X 42 TABS 0.5mg daily for 3 days , then 0.5mg BID for 4 days, then 1mg BID VARENICLINE TARTRATE 73212931281 No Longer Active Gareth Cancino MD Active ALPRAZOLAM 0.25 MG TAB 1/2 to 1 tablet by mouth qhs prn ALPRAZOLAM 30439461691 Active Gareth Cancino MD Active SIMVASTATIN 40 MG TABS Take one by mouth daily SIMVASTATIN 92800161977 Active Gareth Cancino MD Active TRIAMTERENE-HCTZ 37.5-25 MG CAPS Take one by mouth daily TRIAMTERENE- HCTZ 27213164999 Active Gareth Cancino MD Active CHANTIX STARTING [...] 3 days 2011 PREDNISONE 20 MG TAB 126422 PREDNISONE Inactive DOXYCYCLINE HYCLATE 100 MG CAP 1 cap by mouth twice daily DOXYCYCLINE HYCLATE 100 MG CAP 0806584 DOXYCYCLINE HYCLATE Inactive B-12 1000 MCG CAPS Take one by mouth daily B-12 1000 MCG CAPS CYANOCOBALAMIN Inactive VITAMIN B-6 250 MG TABS Take one by mouth daily VITAMIN B-6 250 MG TABS PYRIDOXINE HCL Inactive FOLIC ACID 800 MCG TABS Take one by mouth daily FOLIC ACID 800 MCG TABS 980323 FOLIC ACID Inactive CIPRO 500 MG TABS 1 TAB PO BID CIPRO 500 MG TABS 349179 CIPROFLOXACIN HCL Inactive OMEPRAZOLE 20 MG TBEC Take one by mouth daily OMEPRAZOLE 20 MG TBEC 069150 OMEPRAZOLE Inactive METOPROLOL SUCCINATE 50 MG TB24 1 tablet by mouth daily METOPROLOL SUCCINATE 50 MG TB24 METOPROLOL SUCCINATE Inactive PREDNISONE 20 MG TAB 1 tab po BID for 3 days, then 1 tab po qday for 3 days PREDNISONE 20 MG TAB 285115 PREDNISONE Inactive BACTRIM DS 800-160 MG TAB 1 tab by mouth twice daily BACTRIM DS 800-160 MG TAB 428654 TRIMETHOPRIM-SULFAMETHOXAZOLE Inactive LEVAQUIN 500 MG TAB 1 tablet by mouth daily LEVAQUIN 500 MG TAB 350033 LEVOFLOXACIN Inactive KEFLEX 500 MG CAP 1 po TID x 10 days KEFLEX 500 MG CAP 905433 CEPHALEXIN Inactive BACTRIM DS 800-160 MG TAB 1 tab by mouth twice daily BACTRIM DS 800-160 MG TAB 413533 TRIMETHOPRIM-SULFAMETHOXAZOLE Inactive Vital Signs Date Name Value [...] ... - Chemistry cholesterol, serum 195 mg/dL 806-058 7290/12/02 triglyceride, serum, fasting 74 mg/dL 30-200 HDL cholesterol, serum 52 mg/dL 32-96 LDL cholesterol, serum 128 mg/dL 0-130 sodium, serum 134 mmol/L 473-985 2225/12/02 carbon dioxide, venous blood 30.3 mmol/L 21.0-32.0 [...] Negative Encounters Code Encounter Date Provider Facility CPT-56465 Level 4 Est. Patient 20:40:10 CDT Gareth Cancino MD [facility] CPT-70759 Level 4 Est. Patient 19:50:11 CDT Gareth Cancino MD [facility] CPT-37173 Level 3 Est. Patient 11:00:13 CDT Gareth Cancino MD [facility] CPT-13484 Level 4 Est. Patient 11:20:21 CDT Gareth Cancino MD [facility] CPT-70031 Level 4 Est. Patient 09:22:18 CREDIT AND COLLECTIONS REPRESENTATIVE Gareth Cancino MD [facility] CPT-50989 Level 3 Est. Patient 09:48:04 CDT Gareth Cancino MD [facility] CPT-46372 Level 3 Est. Patient 10:13:16 CDT Gareth Cancino MD [facility] CPT-10154 Level 2 Est. Patient 18:36:56 CDT Gareth Cancino MD [facility] CPT-49271 Level 4 Est. Patient 13:50:53 CDT Gareth Cancino MD [facility] CPT-65154 Level 3 Est. Patient 14:58:33 CREDIT AND COLLECTIONS REPRESENTATIVE Gareth Cancino MD [facility] CPT-17228 Level 4 Est. Patient 09:25:57 CDT Gareth Cancino MD [facility] CPT-95471 Level 3 Est. Patient 20:39:33 CDT Noman Edwards DO [facility] CPT-43935 Level 2 Est. Patient 13:17:39 CDT Gareth Cancino MD [facility] CPT-68003 Level 3 Est. Patient 13:37:20 CDT Gareth Cancion MD [facility] CPT-76559 Level 3 Est. Patient 18:09:08 CDT Gareth Cancino MD [facility] CPT-38694 Level 4 Est. Patient 09:59:07 CDT Gareth Cancino MD [facility] Procedures Code Procedure Name Date Entry Date Standard Description CPT-87373 Punch biopsy 1 lsn 20:40:09 CDT CPT-G0008 Administration of Influenza Virus Vaccine 10:04:48 [employer] AND [employer]LE[employer] REPRESENTATIVE CPT-87535 Fluzone High-Dose Intramuscular Suspension 10:04:48 CREDIT AND [employer]LECTIONS REPRESENTATIVE CPT-19671 Ribs unilat w PA chst min 3V 10:45:40 CDT CPT-LR Lesion Removal 13:14:55 CDT CPT-Cryo Cryotherapy 13:14:55 CDT CPT-74383 Venipuncture Draw Fee 10:25:49 CDT CPT-01829 Administration single or combination vaccine inc oral 13 :22:14 CREDIT AND COLLECTIONS REPRESENTATIVE CPT-80899 Influenza High Dose age 65+ 13:22:14 CREDIT AND COLLECTIONS REPRESENTATIVE
--- OUTSIDE RECORDS SUMMARY | 2016-12-06 09:35 | XMS REPORT | Clinical Summary ---
Author Author Admin, Leon Organization [email or web address] Address Unknown Phone Unavailable Allergies, Adverse Reactions, [...] 1 tablet by mouth qhs prn ALPRAZOLAM 19791401622 No Longer Active Gareth Cancino MD Active CLOBETASOL PROPIONATE 0.05 % CREA apply to hand rash bid CLOBETASOL PROPIONATE 31304962715 No Longer Active Gareth Cancino MD Active BACTROBAN 2 % CREAM Apply to affected area BID MUPIROCIN CALCIUM 01535479697 No Longer Active Gareth Cancino MD Active LISINOPRIL 20 MG TABS 1 tablet by mouth daily for high blood pressure 10/14 LISINOPRIL 36799273424 Active Gareth Cancino MD Active BACTRIM DS 800-160 MG TAB 1 tab by mouth twice daily TRIMETHOPRIM-SULFAMETHOXAZOLE 07558595469 No Longer Active Gareth Cancino MD Active METOPROLOL SUCCINATE ER 100 MG [id number] 1 pill by mouth daily, for blood pressure METOPROLOL SUCCINATE 27294646981 Active Gareth Cancino MD Active KEFLEX 500 MG CAP 1 po TID x 10 days CEPHALEXIN 34831126867 No Longer Active Blanca Castillo APRN Active WELLBUTRIN SR 150 MG ORAL [id number] take 1 tab po BID BUPROPION HCL 77876381033 Active Gareth Cancino MD Active METOPROLOL SUCCINATE 50 MG TB24 1 tablet by mouth daily METOPROLOL SUCCINATE 77543202153 No Longer Active Gareth Cancino MD Active OMEPRAZOLE 20 MG TBEC Take one by mouth daily OMEPRAZOLE 58495239373 No Longer Active Gareth Cancino MD Active OMEPRAZOLE 40 MG CPDR 1 tab po qday for acid reflux. OMEPRAZOLE 93596640146 Active Mary Shah APRN Active LEVAQUIN 500 MG TAB 1 tablet by mouth daily LEVOFLOXACIN 83760170568 No Longer Active Gareth Cancino MD Active ALEVE 220 MG TAB 2 tab po qd NAPROXEN SODIUM 78639713912 Active Gareth Cancino MD Active ASPIRIN 81 MG CHEW TAB 1 tablet by mouth daily ASPIRIN 36980951599 Active Gareth Cancino MD Active VENTOLIN HFA 108 (90 BASE) MCG/ACT AERS 1-2 puffs four times a day PRN shortness of breath ALBUTEROL SULFATE 58712955397 Active Mary Shah WIND T[employer]NEL MECHANIC Active CENTRUM SILVER TABS 1 TAB PO DAILY MULTIPLE VITAMINS-MINERALS 96174853664 Active Gareth Cancino MD Active VITAMIN B12 100 MCG TABS 1 TAB PO DAILY CYANOCOBALAMIN 51103944900 Active Gareth Cancino MD Active CIPRO 500 MG TABS 1 TAB PO BID CIPROFLOXACIN HCL 56240198414 No Longer Active Gareth Cancino MD Active BACTRIM DS 800-160 MG TAB 1 tab by mouth twice daily TRIMETHOPRIM-SULFAMETHOXAZOLE 88517499848 No Longer Active Gareth Cancino MD Active PREDNISONE 20 MG TAB 1 tab po BID for 3 days, then 1 tab po qday for 3 days PREDNISONE 60593563038 No Longer Active Gareth Cancino MD Active FOLIC ACID 800 MCG TABS Take one by mouth daily FOLIC ACID 03591814334 No Longer Active Gareth Cancino MD Active VITAMIN B-6 250 MG TABS Take one by mouth daily PYRIDOXINE HCL 39114450821 No Longer Active Gareth Cancino MD Active B-12 1000 MCG CAPS Take one by mouth daily CYANOCOBALAMIN 95636863955 No Longer Active Gareth Cancino MD Active DOXYCYCLINE HYCLATE 100 MG CAP 1 cap by mouth twice daily DOXYCYCLINE HYCLATE 84658233562 No Longer Active Gareth Cancino MD Active PREDNISONE 20 MG TAB 1 po bid 3 days, then 1 po q day 3 days 2011 PREDNISONE 97724994777 No Longer Active Gareth Cancino MD Active CHANTIX STARTING MONTH RUBEN 0.5 MG X 11 & 1 MG X 42 TABS 0.5mg daily for 3 days , then 0.5mg BID for 4 days, then 1mg BID VARENICLINE TARTRATE 23070979333 No Longer Active Gareth Cancino MD Active SIMVASTATIN 40 MG TABS Take one by mouth daily SIMVASTATIN 25760278294 Active Gareth Cancino MD Active TRIAMTERENE-HCTZ 37.5-25 MG CAPS Take one by mouth daily TRIAMTERENE- HCTZ 45594889538 Active Gareth Cancino MD Active CHANTIX STARTING [...] 3 days 2011 PREDNISONE 20 MG TAB 400525 PREDNISONE Inactive DOXYCYCLINE HYCLATE 100 MG CAP 1 cap by mouth twice daily DOXYCYCLINE HYCLATE 100 MG CAP 9743748 DOXYCYCLINE HYCLATE Inactive B-12 1000 MCG CAPS Take one by mouth daily B-12 1000 MCG CAPS CYANOCOBALAMIN Inactive VITAMIN B-6 250 MG TABS Take one by mouth daily VITAMIN B-6 250 MG TABS PYRIDOXINE HCL Inactive FOLIC ACID 800 MCG TABS Take one by mouth daily FOLIC ACID 800 MCG TABS 397186 FOLIC ACID Inactive CIPRO 500 MG TABS 1 TAB PO BID CIPRO 500 MG TABS 527921 CIPROFLOXACIN HCL Inactive OMEPRAZOLE 20 MG TBEC Take one by mouth daily OMEPRAZOLE 20 MG TBEC 847678 OMEPRAZOLE Inactive METOPROLOL SUCCINATE 50 MG TB24 1 tablet by mouth daily METOPROLOL SUCCINATE 50 MG TB24 METOPROLOL SUCCINATE Inactive BACTROBAN 2 % CREAM Apply to affected area BID BACTROBAN 2 % CREAM 146926 MUPIROCIN CALCIUM Inactive CLOBETASOL PROPIONATE 0.05 % CREA apply to hand rash bid CLOBETASOL PROPIONATE 0.05 % CREA 099966 CLOBETASOL PROPIONATE Inactive ALPRAZOLAM 0.25 MG TAB 1/2 to 1 tablet by mouth qhs prn ALPRAZOLAM 0.25 MG TAB 990439 ALPRAZOLAM Inactive PREDNISONE 20 MG TAB 1 tab po BID for 3 days, then 1 tab po qday for 3 days PREDNISONE 20 MG TAB 626438 PREDNISONE Inactive BACTRIM DS 800-160 MG TAB 1 tab by mouth twice daily BACTRIM DS 800-160 MG TAB 520272 TRIMETHOPRIM-SULFAMETHOXAZOLE Inactive LEVAQUIN 500 MG TAB 1 tablet by mouth daily LEVAQUIN 500 MG TAB 149812 LEVOFLOXACIN Inactive KEFLEX 500 MG CAP 1 po TID x 10 days KEFLEX 500 MG CAP 834878 CEPHALEXIN Inactive BACTRIM DS 800-160 MG TAB 1 tab by mouth twice daily BACTRIM DS 800-160 MG TAB 035060 TRIMETHOPRIM-SULFAMETHOXAZOLE Inactive Vital Signs Date Name Value [...] ... - Chemistry cholesterol, serum 195 mg/dL 120-655 7501/12/02 triglyceride, serum, fasting 74 mg/dL 30-200 HDL cholesterol, serum 52 mg/dL 32-96 LDL cholesterol, serum 128 mg/dL 0-130 sodium, serum 134 mmol/L 637-373 7694/12/02 carbon dioxide, venous blood 30.3 mmol/L 21.0-32.0 [...] 0-19 Encounters Code Encounter Date Provider Facility CPT-56905 Level 3 Est. Patient 23:08:20 CDT Gareth Cancino MD [facility] CPT-47353 Level 4 Est. Patient 20:40:10 CDT Gareth Cancino MD [facility] CPT-76334 Level 4 Est. Patient 19:50:11 CDT Gareth Cancino MD [facility] CPT-50152 Level 3 Est. Patient 11:00:13 CDT Gareth Cancino MD [facility] CPT-61884 Level 4 Est. Patient 11:20:21 CDT Gareth Cancino MD [facility] CPT-44851 Level 4 Est. Patient 09:22:18 [employer] Gareth Cancino MD [facility] CPT-78544 Level 3 Est. Patient 09:48:04 CDT Gareth Cancino MD [facility] CPT-36715 Level 3 Est. Patient 10:13:16 CDT Gareth Cancino MD [facility] CPT-87802 Level 2 Est. Patient 18:36:56 CDT Gareth Cancino MD [facility] CPT-81126 Level 4 Est. Patient 13:50:53 CDT Gareth Cancino MD [facility] CPT-22734 Level 3 Est. Patient 14:58:33 [employer] Gareth Cancino MD [facility] CPT-12086 Level 4 Est. Patient 09:25:57 CDT Gareth Cancino MD [facility] CPT-19465 Level 3 Est. Patient 20:39:33 CDT Noman Edwards DO [facility] CPT-25454 Level 2 Est. Patient 13:17:39 CDT Gareth Cancino MD [facility] CPT-84086 Level 3 Est. Patient 13:37:20 CDT Gareth Cancino MD [facility] CPT-11632 Level 3 Est. Patient 18:09:08 CDT Gareth Cancino MD [facility] CPT-15351 Level 4 Est. Patient 09:59:07 CDT Gareth Cancino MD [facility] Procedures Code Procedure Name Date Entry Date Standard Description CPT-56416 LS spine AP and Lat - XRAY USE ONLY 10:31:51 CDT 07/27 CPT-24227 Punch biopsy 1 lsn 20:40:09 CDT CPT-G0008 Administration of Influenza Virus Vaccine 10:04:48 [employer] CPT-08482 Fluzone High-Dose Intramuscular Suspension 10:04:48 [employer] CPT-67742 Ribs unilat w PA chst min 3V 10:45:40 CDT CPT-LR Lesion Removal 13:14:55 CDT CPT-Cryo Cryotherapy 13:14:55 CDT CPT-87982 Venipuncture Draw Fee 10:25:49 CDT CPT-75333 Administration single or combination vaccine inc oral 13 :22:14 [employer] CPT-64534 Influenza High Dose age 65+ 13:22:14 [employer]
--- OUTSIDE RECORDS SUMMARY | 2016-12-06 09:35 | XMS REPORT | Clinical Summary ---
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 Inactive Gareth Cacnino MD DYSPLASTIC NEVUS, FACE ICD-216.3 Inactive Gareth [...] hours as needed for bck pain HYDROCODONE-ACETAMINOPHEN 03445863648 No Longer Active Gareth Cancino MD Active FENTANYL 12 MCG/HR PT72 Apply to clean, dry skin and change every 72 hours FENTANYL 01893220198 Active Gareth Cancino MD Active ALPRAZOLAM 0.25 MG TAB 1 tablet by mouth q hs prn ALPRAZOLAM 68177051138 Active Gareth Cancino MD Active AZITHROMYCIN 250 MG ORAL TABS 1 tab daily AZITHROMYCIN 04115888676 No Longer Active Gareth Cancino MD Active ZITHROMAX 250 MG TAB 2 po today, then 1 po q days 2-5 AZITHROMYCIN 01689345567 No Longer Active Tangela Forte Active IPRATROPIUM-ALBUTEROL 0.5-2.5 (3) MG/3ML INH SOLN nebulize 1 vial every 6hrs prn shortness of breath IPRATROPIUM-ALBUTEROL 88647472102 Active Gareth Cancino MD Active FENTANYL 25 MCG/HR PT72 Apply to clean, dry skin and change every 72 hours FENTANYL 85291778217 No Longer Active Gareth Cancino MD Active WELLBUTRIN SR 150 MG ORAL [id number] take 1 tab po BID BUPROPION HCL 18139541292 No Longer Active Gareth Cancino MD Active ZOFRAN 4 MG ORAL TABS 1 by mouth every 6 hours prn nausea ONDANSETRON HCL 15863915318 Active Tangela Forte Active TRAMADOL HCL 50 MG TABS 1 po tid PRN TRAMADOL HCL 65904740649 Active Gareth Cancino MD Active ALPRAZOLAM 0.25 MG TAB 1/2 to 1 tablet by mouth qhs prn ALPRAZOLAM 92507315693 No Longer Active Gareth Cancino MD Active CLOBETASOL PROPIONATE 0.05 % CREA apply to hand rash bid CLOBETASOL PROPIONATE 79668028098 No Longer Active Gareth Cancino MD Active BACTROBAN 2 % CREAM Apply to affected area BID MUPIROCIN CALCIUM 32561942191 No Longer Active Gareth Cancino MD Active LISINOPRIL 20 MG TABS 1 tablet by mouth daily for high blood pressure 10/14 LISINOPRIL 88529558213 Active Gareth Cancino MD Active BACTRIM DS 800-160 MG TAB 1 tab by mouth twice daily TRIMETHOPRIM-SULFAMETHOXAZOLE 60418990989 No Longer Active Gareth Cancino MD Active METOPROLOL SUCCINATE ER 100 MG [id number] 1 pill by mouth daily, for blood pressure METOPROLOL SUCCINATE 99714576719 Active Gareth Cancino MD Active KEFLEX 500 MG CAP 1 po TID x 10 days CEPHALEXIN 07751832032 No Longer Active Blanca Castillo APRN Active METOPROLOL SUCCINATE 50 MG TB24 1 tablet by mouth daily METOPROLOL SUCCINATE 17552960207 No Longer Active Gareth Cancino MD Active OMEPRAZOLE 20 MG TBEC Take one by mouth daily OMEPRAZOLE 51188417919 No Longer Active Gareth Cancino MD Active OMEPRAZOLE 40 MG CPDR 1 tab po qday for acid reflux. OMEPRAZOLE 82101821850 Active Mary Shah APRN Active LEVAQUIN 500 MG TAB 1 tablet by mouth daily LEVOFLOXACIN 22365290006 No Longer Active Gareth Cancino MD Active ALEVE 220 MG TAB 2 tab po qd NAPROXEN SODIUM 38770195613 Active Gareth Cancino MD Active ASPIRIN 81 MG CHEW TAB 1 tablet by mouth daily ASPIRIN 77172529203 Active Gareth Cancino MD Active VENTOLIN HFA 108 (90 BASE) MCG/ACT AERS 1-2 puffs four times a day PRN shortness of breath ALBUTEROL SULFATE 99580883518 Active Mary Shah APRN Active CENTRUM SILVER TABS 1 TAB PO DAILY MULTIPLE VITAMINS-MINERALS 88742655743 Active Gareth Cancino MD Active VITAMIN B12 100 MCG TABS 1 TAB PO DAILY CYANOCOBALAMIN 74845652709 Active Gareth Cancino MD Active CIPRO 500 MG TABS 1 TAB PO BID CIPROFLOXACIN HCL 12468871588 No Longer Active Gareth Cancino MD Active BACTRIM DS 800-160 MG TAB 1 tab by mouth twice daily TRIMETHOPRIM-SULFAMETHOXAZOLE 30119435153 No Longer Active Gareth Cancino MD Active PREDNISONE 20 MG TAB 1 tab po BID for 3 days, then 1 tab po qday for 3 days PREDNISONE 24461162611 No Longer Active Gareth Cancino MD Active FOLIC ACID 800 MCG TABS Take one by mouth daily FOLIC ACID 27474114754 No Longer Active Gareth Cancino MD Active VITAMIN B-6 250 MG TABS Take one by mouth daily PYRIDOXINE HCL 45776073698 No Longer Active Gareth Cancino MD Active B-12 1000 MCG CAPS Take one by mouth daily CYANOCOBALAMIN 71963495811 No Longer Active Gareth Cancino MD Active DOXYCYCLINE HYCLATE 100 MG CAP 1 cap by mouth twice daily DOXYCYCLINE HYCLATE 44979786219 No Longer Active Gareth Cancino MD Active PREDNISONE 20 MG TAB 1 po bid 3 days, then 1 po q day 3 days 2011 PREDNISONE 64258313373 No Longer Active Gareth Cancino MD Active CHANTIX STARTING MONTH RUBEN 0.5 MG X 11 & 1 MG X 42 TABS 0.5mg daily for 3 days , then 0.5mg BID for 4 days, then 1mg BID VARENICLINE TARTRATE 51599840201 No Longer Active Gareth Cancino MD Active SIMVASTATIN 40 MG TABS Take one by mouth daily SIMVASTATIN 45737274097 Active Gareth Cancino MD Active TRIAMTERENE-HCTZ 37.5-25 MG CAPS Take one by mouth daily TRIAMTERENE- HCTZ 71249297462 Active Gareth Cancino MD Active CHANTIX STARTING [...] 3 days 2011 PREDNISONE 20 MG TAB 837548 PREDNISONE Inactive DOXYCYCLINE HYCLATE 100 MG CAP 1 cap by mouth twice daily DOXYCYCLINE HYCLATE 100 MG CAP 0712263 DOXYCYCLINE HYCLATE Inactive B-12 1000 MCG CAPS Take one by mouth daily B-12 1000 MCG CAPS CYANOCOBALAMIN Inactive VITAMIN B-6 250 MG TABS Take one by mouth daily VITAMIN B-6 250 MG TABS PYRIDOXINE HCL Inactive FOLIC ACID 800 MCG TABS Take one by mouth daily FOLIC ACID 800 MCG TABS 905617 FOLIC ACID Inactive CIPRO 500 MG TABS 1 TAB PO BID CIPRO 500 MG TABS 908819 CIPROFLOXACIN HCL Inactive OMEPRAZOLE 20 MG TBEC Take one by mouth daily OMEPRAZOLE 20 MG TBEC 290114 OMEPRAZOLE Inactive METOPROLOL SUCCINATE 50 MG TB24 1 tablet by mouth daily METOPROLOL SUCCINATE 50 MG TB24 METOPROLOL SUCCINATE Inactive BACTROBAN 2 % CREAM Apply to affected area BID BACTROBAN 2 % CREAM 094751 MUPIROCIN CALCIUM Inactive CLOBETASOL PROPIONATE 0.05 % CREA apply to hand rash bid CLOBETASOL PROPIONATE 0.05 % CREA 269621 CLOBETASOL PROPIONATE Inactive ALPRAZOLAM 0.25 MG TAB 1/2 to 1 tablet by mouth qhs prn ALPRAZOLAM 0.25 MG TAB 785840 ALPRAZOLAM Inactive WELLBUTRIN SR 150 MG ORAL [id number] take 1 tab po BID WELLBUTRIN SR 150 MG ORAL [id number] BUPROPION HCL Inactive AZITHROMYCIN 250 MG ORAL TABS 1 tab daily AZITHROMYCIN 250 MG ORAL TABS 4127637 AZITHROMYCIN Inactive HYDROCODONE-ACETAMINOPHEN 5-325 MG TABS 1 tab by mouth every 6 hours as needed for bck pain HYDROCODONE-ACETAMINOPHEN 5-325 MG TABS 109782 HYDROCODONE-ACETAMINOPHEN Inactive PREDNISONE 20 MG TAB 1 tab po BID for 3 days, then 1 tab po qday for 3 days PREDNISONE 20 MG TAB 247882 PREDNISONE Inactive BACTRIM DS 800-160 MG TAB 1 tab by mouth twice daily BACTRIM DS 800-160 MG TAB 606790 TRIMETHOPRIM-SULFAMETHOXAZOLE Inactive LEVAQUIN 500 MG TAB 1 tablet by mouth daily LEVAQUIN 500 MG TAB 713322 LEVOFLOXACIN Inactive KEFLEX 500 MG CAP 1 po TID x 10 days KEFLEX 500 MG CAP 650241 CEPHALEXIN Inactive BACTRIM DS 800-160 MG TAB 1 tab by mouth twice daily BACTRIM DS 800-160 MG TAB 226195 TRIMETHOPRIM-SULFAMETHOXAZOLE Inactive FENTANYL 25 MCG/HR PT72 Apply to clean, dry skin and change every 72 hours FENTANYL 25 MCG/HR PT72 833331 FENTANYL Inactive ZITHROMAX 250 MG TAB 2 po today, then 1 po q days 2-5 ZITHROMAX 250 MG TAB 9148580 AZITHROMYCIN Inactive Vital Signs Date Name Value [...] Panel - Chemistry sodium, serum 133 mmol/L 343-860 9208/08/24 potassium, serum 4.4 mmol/L 3.5-5.2 chloride, serum 95 mmol/L 98-107 carbon dioxide, venous blood 33.0 mmol/L 21.0-32.0 blood glucose 107 mg/dL 65-110 calcium, serum 8.8 mg/dL 8.5-10.1 urea nitrogen, blood 12 mg/dL 7-18 creatinine, serum 0.69 mg/dL 0.55-1.30 Lab Report: CBC, Basic Metabolic Panel - Chemistry sodium, serum 132 mmol/L 493-354 0853/10/12 potassium, serum 4.7 mmol/L 3.5-5.2 chloride, serum [...] CBC - Chemistry sodium, serum 136 mmol/L 734-823 4888/11/01 carbon dioxide, venous blood 32.1 mmol/L 21.0-32.0 [...] Negative Encounters Code Encounter Date Provider Facility CPT-56942 Level 3 Est. Patient 20:53:25 [employer] Gareth Cancino MD [facility] CPT-72776 Level 3 Est. Patient 10:34:55 CDT Gareth Cancino MD [facility] CPT-80376 Level 4 Est. Patient 09:00:18 CDT Gareth Cancino MD [facility] CPT-81504 Level 3 Est. Patient 15:12:03 CDT Gareth Cancino MD [facility] CPT-11926 Level 3 Est. Patient 23:08:20 CDT Gareth Cancino MD [facility] CPT-95253 Level 4 Est. Patient 20:40:10 CDT Gareth Cancino MD [facility] CPT-11346 Level 4 Est. Patient 19:50:11 CDT Gareth Cancino MD [facility] CPT-81027 Level 3 Est. Patient 11:00:13 CDT Gareth Cancino MD [facility]-21682 Level 4 Est. Patient 11:20:21 CDT Gareth Cancino MD [facility] CPT-46148 Level 4 Est. Patient 09:22:18 DATA SCI[employer] MANAGER Gareth Cancion MD [facility] CPT-18727 Level 3 Est. Patient 09:48:04 CDT Gareth Cancino MD [facility]-02805 Level 3 Est. Patient 10:13:16 CDT Gareth Cancino MD [facility]-37032 Level 2 Est. Patient 18:36:56 CDT Gareth Cancino MD [facility]-07076 Level 4 Est. Patient 13:50:53 CDT Gareth Cancino MD [facility] CPT-00003 Level 3 Est. Patient 14:58:33 DATA SCI[employer]OT MANAGER Gareth Cancino MD [facility] CPT-16940 Level 4 Est. Patient 09:25:57 CDT Gareth Cancino MD [facility]-32671 Level 3 Est. Patient 20:39:33 CDT Noman Edwards DO [facility] CPT-58937 Level 2 Est. Patient 13:17:39 CDT Gareth Cancino MD [facility]-07806 Level 3 Est. Patient 13:37:20 CDT Gareth Cancino MD [facility]-59930 Level 3 Est. Patient 18:09:08 CDT Gareth Cancino MD [facility]-16045 Level 4 Est. Patient 09:59:07 CDT Gareth Cancino MD [facility] Procedures Code Procedure Name Date Entry Date Standard Description CPT-34786 TSH - LAB USE ONLY 08:11:40 [employer] MANAGER CPT-18493 Free T4 - LAB USE ONLY 08:11:40 [employer]OT MANAGER CPT-16029 Venipuncture Draw Fee 08:11:40 [employer] MANAGER CPT-58093 UA w micro - LAB USE ONLY 14:26:22 DATA SCI[employer]OT MANAGER CPT-G0438 Initial Annual Wellness Exam 20:53:25 DATA SCI[employer] AND [employer]OT MANAGER CPT-G0009 Administration of Pneumococcal Vaccine 11:42:53 DATA [employer]OT MANAGER CPT-09818 Prevnar 13 Intramuscular Suspension 11:42:53 DATA SCI[employer] AND IOT MANAGER 01/07 CPT-33752 First Vx - Ix admin for Medicare patients 11:39:44 DATA SCI[employer] AND IOT MANAGER CPT-67655 Fluzone High-Dose Intramuscular Suspension 11:39:44 DATA SCI[employer] AND [employer]OT MANAGER CPT-87751 Prevnar 13 Intramuscular Suspension 09:29:52 DATA SCIENCE AND IOT MANAGER 01/07 CPT-32096 CMP - LAB USE ONLY 16:31:15 CDT CPT-90423 CBC - LAB USE ONLY 16:31:14 CDT CPT-87546 Venipuncture Draw Fee 16:31:14 CDT CPT-53193 BMP - LAB USE ONLY 14:37:27 CDT CPT-38917 CBC - LAB USE ONLY 14:37:27 CDT CPT-52825 Venipuncture Draw Fee 14:37:27 CDT CPT-TCMM Transitional Care Mgmt-Moderate 14:43:38 CDT CPT-71104 Venipuncture Draw Fee 10:33:47 CDT CPT-44131 BMP - LAB USE ONLY 10:33:46 CDT CPT-Cryo Cryotherapy 15:12:03 CDT CPT-31711 LS spine AP and Lat - XRAY USE ONLY 10:31:51 CDT 07/27 CPT-30306 Punch biopsy 1 lsn 20:40:09 CDT CPT-G0008 Administration of Influenza Virus Vaccine 10:04:48 DATA SCI[employer] MANAGER CPT-59392 Fluzone High-Dose Intramuscular Suspension 10:04:48 DATA SCI[employer] AND [employer]OT MANAGER CPT-98602 Ribs unilat w PA chst min 3V 10:45:40 CDT CPT-LR Lesion Removal 13:14:55 CDT CPT-Cryo Cryotherapy 13:14:55 CDT CPT-93212 Venipuncture Draw Fee 10:25:49 CDT CPT-34290 Administration single or combination vaccine inc oral 13 :22:14 DATA SCIENCE [employer]OT MANAGER CPT-74632 Influenza High Dose age 65+ 13:22:14 DATA SCIENCE AND IOT MANAGER
--- OUTSIDE RECORDS SUMMARY | 2016-12-06 09:37 | XMS REPORT | Clinical Summary ---
Author Author Admin, HILARIA Organization [email or web address] Address Unknown Phone Unavailable Allergies, Adverse Reactions, [...] 1 GM ORAL PACK as directed AZITHROMYCIN 75518208603 Active Tangela Forte Active PIROXICAM 20 MG ORAL CAPS 1 po daily as needed for arthritis/pain PIROXICAM 46317026208 Active Gareth Cancino MD Active ZITHROMAX Z-RUBEN 250 MG TABS 2 today, then 1 daily for 4 days 2016 AZITHROMYCIN 46619650561 No Longer Active Tangelashar Forte Active FENTANYL 25 MCG/HR TRANS PT72 1 patch every 72 hours FENTANYL 26149764110 Active Mary Shah APRN Active PREDNISONE 20 MG TAB take 3 tabs daily for 3 days, 2 tabs daily for 3 days, 1 tab daily for 3 days, 1/2 tab daily for 4 days PREDNISONE 39446062869 No Longer Active Mary Shah APRN Active LEVAQUIN 500 MG TAB 1 tablet by mouth daily for 7 days LEVOFLOXACIN 32294390853 Active Mary Shah APRN Active AZITHROMYCIN 250 MG TABS 2 po qd x 1 day, then 1 po qd x 4 days AZITHROMYCIN 28554401103 No Longer Active Danuta Modi Active AZITHROMYCIN 250 MG TABS 2 po qd x 1 day, then 1 po qd x 4 days AZITHROMYCIN 31875959287 No Longer Active Tangela Forte Active HYDROCODONE-ACETAMINOPHEN 5-325 MG TABS 1 tab by mouth every 6 hours as needed for bck pain HYDROCODONE-ACETAMINOPHEN 41446956357 No Longer Active Gareth Cancino MD Active ALPRAZOLAM 0.25 MG TAB 1 tablet by mouth q hs prn ALPRAZOLAM 76127583359 Active Gareth Cancino MD Active AZITHROMYCIN 250 MG ORAL TABS 1 tab daily AZITHROMYCIN 29018525496 No Longer Active Gareth Cancino MD Active ZITHROMAX 250 MG TAB 2 po today, then 1 po q days 2-5 AZITHROMYCIN 42644970980 No Longer Active Tangela Forte Active IPRATROPIUM-ALBUTEROL 0.5-2.5 (3) MG/3ML INH SOLN nebulize 1 vial every 6hrs prn shortness of breath IPRATROPIUM-ALBUTEROL 03206069198 Active Gareth Cancino MD Active FENTANYL 25 MCG/HR PT72 Apply to clean, dry skin and change every 72 hours FENTANYL 84296012750 No Longer Active Gareth Cancino MD Active WELLBUTRIN SR 150 MG ORAL [id number] take 1 tab po BID BUPROPION HCL 65883194312 No Longer Active Gareth Cancino MD Active ZOFRAN 4 MG ORAL TABS 1 by mouth every 6 hours prn nausea ONDANSETRON HCL 46026013766 Active Tangela Forte Active TRAMADOL HCL 50 MG TABS 1 po tid PRN TRAMADOL HCL 58984137609 Active Gareth Cancino MD Active ALPRAZOLAM 0.25 MG TAB 1/2 to 1 tablet by mouth qhs prn ALPRAZOLAM 55344494252 No Longer Active Gareth Cancino MD Active CLOBETASOL PROPIONATE 0.05 % CREA apply to hand rash bid CLOBETASOL PROPIONATE 89426859536 No Longer Active Gareth Cancino MD Active BACTROBAN 2 % CREAM Apply to affected area BID MUPIROCIN CALCIUM 36283870200 No Longer Active Gareth Cancino MD Active LISINOPRIL 20 MG TABS 1 tablet by mouth daily for high blood pressure 10/14 LISINOPRIL 26332576688 Active Gareth Cancino MD Active BACTRIM DS 800-160 MG TAB 1 tab by mouth twice daily TRIMETHOPRIM-SULFAMETHOXAZOLE 72294285962 No Longer Active Gareth Cancino MD Active METOPROLOL SUCCINATE ER 100 MG [id number] 1 pill by mouth daily, for blood pressure METOPROLOL SUCCINATE 98857770165 Active Gareth Cancino MD Active KEFLEX 500 MG CAP 1 po TID x 10 days CEPHALEXIN 45131263607 No Longer Active Blanca Castillo APRN Active METOPROLOL SUCCINATE 50 MG TB24 1 tablet by mouth daily METOPROLOL SUCCINATE 39507326681 No Longer Active Gareth Cancino MD Active OMEPRAZOLE 20 MG TBEC Take one by mouth daily OMEPRAZOLE 50936316726 No Longer Active Gareth Cancino MD Active OMEPRAZOLE 40 MG CPDR 1 tab po qday for acid reflux. OMEPRAZOLE 44094912560 Active Mary Shah APRN Active LEVAQUIN 500 MG TAB 1 tablet by mouth daily LEVOFLOXACIN 61200235297 No Longer Active Gareth Cancino MD Active ALEVE 220 MG TAB 2 tab po qd NAPROXEN SODIUM 80424127506 Active Gareth Cancino MD Active ASPIRIN 81 MG CHEW TAB 1 tablet by mouth daily ASPIRIN 73168301354 Active Gareth Cancino MD Active VENTOLIN HFA 108 (90 BASE) MCG/ACT AERS 1-2 puffs four times a day PRN shortness of breath ALBUTEROL SULFATE 79424563419 Active Mary Shah APRN Active CENTRUM SILVER TABS 1 TAB PO DAILY MULTIPLE VITAMINS-MINERALS 95365854463 Active Gareth Cancino MD Active VITAMIN B12 100 MCG TABS 1 TAB PO DAILY CYANOCOBALAMIN 96611673701 Active Gareth Cancino MD Active CIPRO 500 MG TABS 1 TAB PO BID CIPROFLOXACIN HCL 16069550296 No Longer Active Gareth Cancino MD Active BACTRIM DS 800-160 MG TAB 1 tab by mouth twice daily TRIMETHOPRIM-SULFAMETHOXAZOLE 68493281087 No Longer Active Gareth Cancino MD Active PREDNISONE 20 MG TAB 1 tab po BID for 3 days, then 1 tab po qday for 3 days PREDNISONE 28873022693 No Longer Active Gareth Cancino MD Active FOLIC ACID 800 MCG TABS Take one by mouth daily FOLIC ACID 42769183990 No Longer Active Gareth Cancino MD Active VITAMIN B-6 250 MG TABS Take one by mouth daily PYRIDOXINE HCL 03089552580 No Longer Active Gareth Cancino MD Active B-12 1000 MCG CAPS Take one by mouth daily CYANOCOBALAMIN 64684212388 No Longer Active Gareth Cancino MD Active DOXYCYCLINE HYCLATE 100 MG CAP 1 cap by mouth twice daily DOXYCYCLINE HYCLATE 95420700101 No Longer Active Gareth Cancino MD Active PREDNISONE 20 MG TAB 1 po bid 3 days, then 1 po q day 3 days 2011 PREDNISONE 47939899164 No Longer Active Gareth Cancino MD Active CHANTIX STARTING MONTH RUBEN 0.5 MG X 11 & 1 MG X 42 TABS 0.5mg daily for 3 days , then 0.5mg BID for 4 days, then 1mg BID VARENICLINE TARTRATE 03961015378 No Longer Active Gareth Cancino MD Active SIMVASTATIN 40 MG TABS Take one by mouth daily SIMVASTATIN 08734185753 Active Gareth Cancino MD Active TRIAMTERENE-HCTZ 37.5-25 MG CAPS Take one by mouth daily TRIAMTERENE- HCTZ 69285507284 Active Mary Shah APRN Active CHANTIX STARTING [...] 3 days 2011 PREDNISONE 20 MG TAB 016808 PREDNISONE Inactive DOXYCYCLINE HYCLATE 100 MG CAP 1 cap by mouth twice daily DOXYCYCLINE HYCLATE 100 MG CAP 7372497 DOXYCYCLINE HYCLATE Inactive B-12 1000 MCG CAPS Take one by mouth daily B-12 1000 MCG CAPS CYANOCOBALAMIN Inactive VITAMIN B-6 250 MG TABS Take one by mouth daily VITAMIN B-6 250 MG TABS PYRIDOXINE HCL Inactive FOLIC ACID 800 MCG TABS Take one by mouth daily FOLIC ACID 800 MCG TABS 048190 FOLIC ACID Inactive CIPRO 500 MG TABS 1 TAB PO BID CIPRO 500 MG TABS 234649 CIPROFLOXACIN HCL Inactive OMEPRAZOLE 20 MG TBEC Take one by mouth daily OMEPRAZOLE 20 MG TBEC 387919 OMEPRAZOLE Inactive METOPROLOL SUCCINATE 50 MG TB24 1 tablet by mouth daily METOPROLOL SUCCINATE 50 MG TB24 METOPROLOL SUCCINATE Inactive BACTROBAN 2 % CREAM Apply to affected area BID BACTROBAN 2 % CREAM 693163 MUPIROCIN CALCIUM Inactive CLOBETASOL PROPIONATE 0.05 % CREA apply to hand rash bid CLOBETASOL PROPIONATE 0.05 % CREA 950520 CLOBETASOL PROPIONATE Inactive ALPRAZOLAM 0.25 MG TAB 1/2 to 1 tablet by mouth qhs prn ALPRAZOLAM 0.25 MG TAB 816167 ALPRAZOLAM Inactive WELLBUTRIN SR 150 MG ORAL [id number] take 1 tab po BID WELLBUTRIN SR 150 MG ORAL [id number] BUPROPION HCL Inactive AZITHROMYCIN 250 MG ORAL TABS 1 tab daily AZITHROMYCIN 250 MG ORAL TABS 0520881 AZITHROMYCIN Inactive HYDROCODONE-ACETAMINOPHEN 5-325 MG TABS 1 tab by mouth every 6 hours as needed for bck pain HYDROCODONE-ACETAMINOPHEN 5-325 MG TABS 299112 HYDROCODONE-ACETAMINOPHEN Inactive PREDNISONE 20 MG TAB 1 tab po BID for 3 days, then 1 tab po qday for 3 days PREDNISONE 20 MG TAB 495527 PREDNISONE Inactive BACTRIM DS 800-160 MG TAB 1 tab by mouth twice daily BACTRIM DS 800-160 MG TAB 467404 TRIMETHOPRIM-SULFAMETHOXAZOLE Inactive LEVAQUIN 500 MG TAB 1 tablet by mouth daily LEVAQUIN 500 MG TAB 628783 LEVOFLOXACIN Inactive KEFLEX 500 MG CAP 1 po TID x 10 days KEFLEX 500 MG CAP 421194 CEPHALEXIN Inactive BACTRIM DS 800-160 MG TAB 1 tab by mouth twice daily BACTRIM DS 800-160 MG TAB 032368 TRIMETHOPRIM-SULFAMETHOXAZOLE Inactive FENTANYL 25 MCG/HR PT72 Apply to clean, dry skin and change every 72 hours FENTANYL 25 MCG/HR PT72 058180 FENTANYL Inactive ZITHROMAX 250 MG TAB 2 po today, then 1 po q days 2-5 ZITHROMAX 250 MG TAB 1148800 AZITHROMYCIN Inactive AZITHROMYCIN 250 MG TABS 2 po qd x 1 day, then 1 po qd x 4 days AZITHROMYCIN 250 MG TABS 9733342 AZITHROMYCIN Inactive AZITHROMYCIN 250 MG TABS 2 po qd x 1 day, then 1 po qd x 4 days AZITHROMYCIN 250 MG TABS 0565822 AZITHROMYCIN Inactive PREDNISONE 20 MG TAB take 3 tabs daily for 3 days, 2 tabs daily for 3 days, 1 tab daily for 3 days, 1/2 tab daily for 4 days PREDNISONE 20 MG TAB 999423 PREDNISONE Inactive ZITHROMAX Z-RUBEN 250 MG TABS 2 today, then 1 daily for 4 days 2016 ZITHROMAX Z-RUBEN 250 MG TABS 3953772 AZITHROMYCIN Inactive Vital Signs Date Name Value [...] Panel - Chemistry sodium, serum 133 mmol/L 056-681 2228/08/24 potassium, serum 4.4 mmol/L 3.5-5.2 chloride, serum 95 mmol/L 98-107 carbon dioxide, venous blood 33.0 mmol/L 21.0-32.0 blood glucose 107 mg/dL 65-110 calcium, serum 8.8 mg/dL 8.5-10.1 urea nitrogen, blood 12 mg/dL 7-18 creatinine, serum 0.69 mg/dL 0.55-1.30 Lab Report: CBC, Basic Metabolic Panel - Chemistry sodium, serum 132 mmol/L 274-913 5496/10/12 potassium, serum 4.7 mmol/L 3.5-5.2 chloride, serum [...] CBC - Chemistry sodium, serum 136 mmol/L 503-102 5775/11/01 carbon dioxide, venous blood 32.1 mmol/L 21.0-32.0 [...] PANEL - Chemistry cholesterol, serum 169 mg/dL 645-711 9990/05/09 HDL cholesterol, serum 54 mg/dL > OR=46 [...] mg/dL Encounters Code Encounter Date Provider Facility CPT-07374 Level 4 Est. Patient 07:23:02 CDT Gareth Cancino MD [facility] CPT-29564 Level 3 Est. Patient 09:05:25 [employer] Mary Shah APRN [facility] CPT-06760 Level 3 Est. Patient 20:53:25 [employer]FER [employer]AL Gareth Cancino MD [facility] CPT-95494 Level 3 Est. Patient 10:34:55 CDT Gareth Cancino MD [facility] CPT-49120 Level 4 Est. Patient 09:00:18 CDT Gareth Cancino MD [facility] CPT-93236 Level 3 Est. Patient 15:12:03 CDT Gareth Cancino MD [facility] CPT-70861 Level 3 Est. Patient 23:08:20 CDT Gareth Cancino MD [facility] CPT-19809 Level 4 Est. Patient 20:40:10 CDT Gareth Cancino MD [facility] CPT-69340 Level 4 Est. Patient 19:50:11 CDT Gareth Cancino MD [facility] CPT-02658 Level 3 Est. Patient 11:00:13 CDT Gareth Cancino MD [facility] CPT-50265 Level 4 Est. Patient 11:20:21 CDT Gareth Cancino MD [facility] CPT-86060 Level 4 Est. Patient 09:22:18 [employer]OOFER METAL Gareth Cancino MD [facility] CPT-72608 Level 3 Est. Patient 09:48:04 CDT Gareth Cancino MD [facility] CPT-13221 Level 3 Est. Patient 10:13:16 CDT Gareth Cancino MD [facility] CPT-53093 Level 2 Est. Patient 18:36:56 CDT Gareth Cancino MD [facility] CPT-75422 Level 4 Est. Patient 13:50:53 CDT Gareth Cancino MD [facility] CPT-72046 Level 3 Est. Patient 14:58:33 [employer]AL Gareth Cancino MD [facility] CPT-83859 Level 4 Est. Patient 09:25:57 CDT Gareth Cancino MD [facility] CPT-40391 Level 3 Est. Patient 20:39:33 CDT Noman Edwards DO [facility] CPT-68800 Level 2 Est. Patient 13:17:39 CDT Gareth Cancino MD [facility] CPT-85120 Level 3 Est. Patient 13:37:20 CDT Gareth Cancino MD [facility] CPT-43508 Level 3 Est. Patient 18:09:08 CDT Gareth Cancino MD [facility] CPT-44301 Level 4 Est. Patient 09:59:07 CDT Gareth Cancino MD [facility] Procedures Code Procedure Name Date Entry Date Standard Description CPT-000 Give Appropriate Flu Vaccine 09:29:52 [employer]AL CPT-000 Give Appropriate Flu Vaccine 09:22:20 [employer] CPT-89536 TSH - LAB USE ONLY 08:11:40 [employer] CPT-18342 Free T4 - LAB USE ONLY 08:11:40 [employer] CPT-74881 Venipuncture Draw Fee 08:11:40 [employer] CPT-93577 UA w micro - LAB USE ONLY 14:26:22 [employer] CPT-G0438 Initial Annual Wellness Exam 20:53:25 [employer]FER [employer] CPT-G0009 Administration of Pneumococcal Vaccine 11:42:53 [employer]FER [employer] CPT-58301 Prevnar 13 Intramuscular Suspension 11:42:53 ROOFER METAL 01/07 CPT-99032 First Vx - Ix admin for Medicare patients 11:39:44 R[employer]FER METAL CPT-61042 Fluzone High-Dose Intramuscular Suspension 11:39:44 [employer] CPT-26198 Prevnar 13 Intramuscular Suspension 09:29:52 R[employer]FER METAL 01/07 CPT-91845 CMP - LAB USE ONLY 16:31:15 CDT CPT-42887 CBC - LAB USE ONLY 16:31:14 CDT CPT-11570 Venipuncture Draw Fee 16:31:14 CDT CPT-64419 BMP - LAB USE ONLY 14:37:27 CDT CPT-34341 CBC - LAB USE ONLY 14:37:27 CDT CPT-65451 Venipuncture Draw Fee 14:37:27 CDT CPT-TCMM Transitional Care Mgmt-Moderate 14:43:38 CDT CPT-01693 Venipuncture Draw Fee 10:33:47 CDT CPT-21142 BMP - LAB USE ONLY 10:33:46 CDT CPT-Cryo Cryotherapy 15:12:03 CDT CPT-81100 LS spine AP and Lat - XRAY USE ONLY 10:31:51 CDT 07/27 CPT-85328 Punch biopsy 1 lsn 20:40:09 CDT CPT-G0008 Administration of Influenza Virus Vaccine 10:04:48 [employer] CPT-21699 Fluzone High-Dose Intramuscular Suspension 10:04:48 [employer] CPT-00444 Ribs unilat w PA chst min 3V 10:45:40 CDT CPT-LR Lesion Removal 13:14:55 CDT CPT-Cryo Cryotherapy 13:14:55 CDT CPT-22871 Venipuncture Draw Fee 10:25:49 CDT CPT-18219 Administration single or combination vaccine inc oral 13 :22:14 [employer] CPT-35230 Influenza High Dose age 65+ 13:22:14 ROOFER METAL
--- OUTSIDE RECORDS SUMMARY | 2016-12-06 09:38 | XMS REPORT | Clinical Summary ---
Author Author Admin, HILARIA Organization [employer] Address Unknown Phone Unavailable Allergies, Adverse Reactions, [...] po daily as needed for arthritis/pain PIROXICAM 13180652427 Active Gareth Cancino MD Active ZITHROMAX Z-RUBEN 250 MG TABS 2 today, then 1 daily for 4 days 2016 AZITHROMYCIN 21579925357 No Longer Active Tangelashar Forte Active FENTANYL 25 MCG/HR TRANS PT72 1 patch every 72 hours FENTANYL 35459174942 Active Mary Shah APRN Active PREDNISONE 20 MG TAB take 3 tabs daily for 3 days, 2 tabs daily for 3 days, 1 tab daily for 3 days, 1/2 tab daily for 4 days PREDNISONE 57272176170 No Longer Active Mary Shah APRN Active LEVAQUIN 500 MG TAB 1 tablet by mouth daily for 7 days LEVOFLOXACIN 84958201365 Active Marylennox Shah APRN Active AZITHROMYCIN 250 MG TABS 2 po qd x 1 day, then 1 po qd x 4 days AZITHROMYCIN 48130169372 No Longer Active Danuta Rian Active AZITHROMYCIN 250 MG TABS 2 po qd x 1 day, then 1 po qd x 4 days AZITHROMYCIN 73302282564 No Longer Active Tangela Forte Active HYDROCODONE-ACETAMINOPHEN 5-325 MG TABS 1 tab by mouth every 6 hours as needed for bck pain HYDROCODONE-ACETAMINOPHEN 60823233859 No Longer Active Gareth Cancino MD Active ALPRAZOLAM 0.25 MG TAB 1 tablet by mouth q hs prn ALPRAZOLAM 36203008016 Active Gareth Cancino MD Active AZITHROMYCIN 250 MG ORAL TABS 1 tab daily AZITHROMYCIN 84418116988 No Longer Active Gareth Cancino MD Active ZITHROMAX 250 MG TAB 2 po today, then 1 po q days 2-5 AZITHROMYCIN 88542769977 No Longer Active Tangela Raida Active IPRATROPIUM-ALBUTEROL 0.5-2.5 (3) MG/3ML INH SOLN nebulize 1 vial every 6hrs prn shortness of breath IPRATROPIUM-ALBUTEROL 16357499689 Active Gareth Cancino MD Active FENTANYL 25 MCG/HR PT72 Apply to clean, dry skin and change every 72 hours FENTANYL 62336378671 No Longer Active Gareth Cancino MD Active WELLBUTRIN SR 150 MG ORAL [id number] take 1 tab po BID BUPROPION HCL 94214809326 No Longer Active Gareth Cancino MD Active ZOFRAN 4 MG ORAL TABS 1 by mouth every 6 hours prn nausea ONDANSETRON HCL 83797670876 Active Tangela Forte Active TRAMADOL HCL 50 MG TABS 1 po tid PRN TRAMADOL HCL 39015604312 Active Gareth Cancino MD Active ALPRAZOLAM 0.25 MG TAB 1/2 to 1 tablet by mouth qhs prn ALPRAZOLAM 84662219628 No Longer Active Gareth Cancino MD Active CLOBETASOL PROPIONATE 0.05 % CREA apply to hand rash bid CLOBETASOL PROPIONATE 57595520646 No Longer Active Gareth Cancino MD Active BACTROBAN 2 % CREAM Apply to affected area BID MUPIROCIN CALCIUM 76114245205 No Longer Active Gareth Cancino MD Active LISINOPRIL 20 MG TABS 1 tablet by mouth daily for high blood pressure 10/14 LISINOPRIL 34586475796 Active Gareth Cancino MD Active BACTRIM DS 800-160 MG TAB 1 tab by mouth twice daily TRIMETHOPRIM-SULFAMETHOXAZOLE 78722561115 No Longer Active Gareth Cancino MD Active METOPROLOL SUCCINATE ER 100 MG [id number] 1 pill by mouth daily, for blood pressure METOPROLOL SUCCINATE 39013624629 Active Gareth Cancino MD Active KEFLEX 500 MG CAP 1 po TID x 10 days CEPHALEXIN 52536642740 No Longer Active Blanca Castillo APRN Active METOPROLOL SUCCINATE 50 MG TB24 1 tablet by mouth daily METOPROLOL SUCCINATE 37630094942 No Longer Active Gareth Cancino MD Active OMEPRAZOLE 20 MG TBEC Take one by mouth daily OMEPRAZOLE 61339301087 No Longer Active Gareth Cancino MD Active OMEPRAZOLE 40 MG CPDR 1 tab po qday for acid reflux. OMEPRAZOLE 48702633510 Active Mary Shah APRN Active LEVAQUIN 500 MG TAB 1 tablet by mouth daily LEVOFLOXACIN 86944469201 No Longer Active Gareth Cancino MD Active ALEVE 220 MG TAB 2 tab po qd NAPROXEN SODIUM 34891641476 Active Gareth Cancino MD Active ASPIRIN 81 MG CHEW TAB 1 tablet by mouth daily ASPIRIN 91198485113 Active Gareth Cancino MD Active VENTOLIN HFA 108 (90 BASE) MCG/ACT AERS 1-2 puffs four times a day PRN shortness of breath ALBUTEROL SULFATE 85780421231 Active Mary Shah APRN Active CENTRUM SILVER TABS 1 TAB PO DAILY MULTIPLE VITAMINS-MINERALS 89190054950 Active Gareth Cnacino MD Active VITAMIN B12 100 MCG TABS 1 TAB PO DAILY CYANOCOBALAMIN 07318563778 Active Gareth Cancino MD Active CIPRO 500 MG TABS 1 TAB PO BID CIPROFLOXACIN HCL 58117016094 No Longer Active Gareth Cancino MD Active BACTRIM DS 800-160 MG TAB 1 tab by mouth twice daily TRIMETHOPRIM-SULFAMETHOXAZOLE 04680303759 No Longer Active Gareth Cancino MD Active PREDNISONE 20 MG TAB 1 tab po BID for 3 days, then 1 tab po qday for 3 days PREDNISONE 89771857706 No Longer Active Gareth Cancino MD Active FOLIC ACID 800 MCG TABS Take one by mouth daily FOLIC ACID 91202105786 No Longer Active Gareth Cancino MD Active VITAMIN B-6 250 MG TABS Take one by mouth daily PYRIDOXINE HCL 19685013114 No Longer Active Gareth Cancino MD Active B-12 1000 MCG CAPS Take one by mouth daily CYANOCOBALAMIN 94633193568 No Longer Active Gareth Cancino MD Active DOXYCYCLINE HYCLATE 100 MG CAP 1 cap by mouth twice daily DOXYCYCLINE HYCLATE 27769968859 No Longer Active Gareth Cancino MD Active PREDNISONE 20 MG TAB 1 po bid 3 days, then 1 po q day 3 days 2011 PREDNISONE 23850929007 No Longer Active Gareth Cancino MD Active CHANTIX STARTING MONTH RUBEN 0.5 MG X 11 & 1 MG X 42 TABS 0.5mg daily for 3 days , then 0.5mg BID for 4 days, then 1mg BID VARENICLINE TARTRATE 64831092384 No Longer Active Gareth Cancino MD Active SIMVASTATIN 40 MG TABS Take one by mouth daily SIMVASTATIN 91530415948 Active Gareth Cancino MD Active TRIAMTERENE-HCTZ 37.5-25 MG CAPS Take one by mouth daily TRIAMTERENE- HCTZ 72414062778 Active Mary Shah APRN Active CHANTIX STARTING [...] 3 days 2011 PREDNISONE 20 MG TAB 903703 PREDNISONE Inactive DOXYCYCLINE HYCLATE 100 MG CAP 1 cap by mouth twice daily DOXYCYCLINE HYCLATE 100 MG CAP 6448375 DOXYCYCLINE HYCLATE Inactive B-12 1000 MCG CAPS Take one by mouth daily B-12 1000 MCG CAPS CYANOCOBALAMIN Inactive VITAMIN B-6 250 MG TABS Take one by mouth daily VITAMIN B-6 250 MG TABS PYRIDOXINE HCL Inactive FOLIC ACID 800 MCG TABS Take one by mouth daily FOLIC ACID 800 MCG TABS 314900 FOLIC ACID Inactive CIPRO 500 MG TABS 1 TAB PO BID CIPRO 500 MG TABS 939536 CIPROFLOXACIN HCL Inactive OMEPRAZOLE 20 MG TBEC Take one by mouth daily OMEPRAZOLE 20 MG [facility] 782302 OMEPRAZOLE Inactive METOPROLOL SUCCINATE 50 MG TB24 1 tablet by mouth daily METOPROLOL SUCCINATE 50 MG TB24 METOPROLOL SUCCINATE Inactive BACTROBAN 2 % CREAM Apply to affected area BID BACTROBAN 2 % CREAM 967135 MUPIROCIN CALCIUM Inactive CLOBETASOL PROPIONATE 0.05 % CREA apply to hand rash bid CLOBETASOL PROPIONATE 0.05 % CREA 985472 CLOBETASOL PROPIONATE Inactive ALPRAZOLAM 0.25 MG TAB 1/2 to 1 tablet by mouth qhs prn ALPRAZOLAM 0.25 MG TAB 672324 ALPRAZOLAM Inactive WELLBUTRIN SR 150 MG ORAL [id number] take 1 tab po BID WELLBUTRIN SR 150 MG ORAL [id number] BUPROPION HCL Inactive AZITHROMYCIN 250 MG ORAL TABS 1 tab daily AZITHROMYCIN 250 MG ORAL TABS 5251125 AZITHROMYCIN Inactive HYDROCODONE-ACETAMINOPHEN 5-325 MG TABS 1 tab by mouth every 6 hours as needed for bck pain HYDROCODONE-ACETAMINOPHEN 5-325 MG TABS 104320 HYDROCODONE-ACETAMINOPHEN Inactive PREDNISONE 20 MG TAB 1 tab po BID for 3 days, then 1 tab po qday for 3 days PREDNISONE 20 MG TAB 575762 PREDNISONE Inactive BACTRIM DS 800-160 MG TAB 1 tab by mouth twice daily BACTRIM DS 800-160 MG TAB 225010 TRIMETHOPRIM-SULFAMETHOXAZOLE Inactive LEVAQUIN 500 MG TAB 1 tablet by mouth daily LEVAQUIN 500 MG TAB 000848 LEVOFLOXACIN Inactive KEFLEX 500 MG CAP 1 po TID x 10 days KEFLEX 500 MG CAP 817136 CEPHALEXIN Inactive BACTRIM DS 800-160 MG TAB 1 tab by mouth twice daily BACTRIM DS 800-160 MG TAB 019619 TRIMETHOPRIM-SULFAMETHOXAZOLE Inactive FENTANYL 25 MCG/HR PT72 Apply to clean, dry skin and change every 72 hours FENTANYL 25 MCG/HR PT72 541909 FENTANYL Inactive ZITHROMAX 250 MG TAB 2 po today, then 1 po q days 2-5 ZITHROMAX 250 MG TAB 9150749 AZITHROMYCIN Inactive AZITHROMYCIN 250 MG TABS 2 po qd x 1 day, then 1 po qd x 4 days AZITHROMYCIN 250 MG TABS 1399691 AZITHROMYCIN Inactive AZITHROMYCIN 250 MG TABS 2 po qd x 1 day, then 1 po qd x 4 days AZITHROMYCIN 250 MG TABS 8757872 AZITHROMYCIN Inactive PREDNISONE 20 MG TAB take 3 tabs daily for 3 days, 2 tabs daily for 3 days, 1 tab daily for 3 days, 1/2 tab daily for 4 days PREDNISONE 20 MG TAB 503312 PREDNISONE Inactive ZITHROMAX Z-RUBEN 250 MG TABS 2 today, then 1 daily for 4 days 2016 ZITHROMAX Z-RUBEN 250 MG TABS 8305699 AZITHROMYCIN Inactive Vital Signs Date Name Value [...] Panel - Chemistry sodium, serum 133 mmol/L 194-691 5342/08/24 potassium, serum 4.4 mmol/L 3.5-5.2 chloride, serum 95 mmol/L 98-107 carbon dioxide, venous blood 33.0 mmol/L 21.0-32.0 blood glucose 107 mg/dL 65-110 calcium, serum 8.8 mg/dL 8.5-10.1 urea nitrogen, blood 12 mg/dL 7-18 creatinine, serum 0.69 mg/dL 0.55-1.30 Lab Report: CBC, Basic Metabolic Panel - Chemistry sodium, serum 132 mmol/L 140-267 0456/10/12 potassium, serum 4.7 mmol/L 3.5-5.2 chloride, serum [...] CBC - Chemistry sodium, serum 136 mmol/L 570-776 9385/11/01 carbon dioxide, venous blood 32.1 mmol/L 21.0-32.0 [...] PANEL - Chemistry cholesterol, serum 169 mg/dL 953-099 9483/05/09 HDL cholesterol, serum 54 mg/dL > OR=46 [...] Negative Encounters Code Encounter Date Provider Facility CPT-95104 Level 3 Est. Patient 09:05:25 CAR REPAIRMAN Marylennox Shah APRN [facility] CPT-62989 Level 3 Est. Patient 20:53:25 CAR REPAIRMAN Gareth Cancino MD [facility] CPT-79144 Level 3 Est. Patient 10:34:55 CDT Gareth Cancino MD [facility] CPT-67237 Level 4 Est. Patient 09:00:18 CDT Gareth Cancino MD [facility] CPT-79403 Level 3 Est. Patient 15:12:03 CDT Gareth Cancino MD [facility] CPT-31288 Level 3 Est. Patient 23:08:20 CDT Gareth Cancino MD [facility] CPT-44212 Level 4 Est. Patient 20:40:10 CDT Gareth Cancino MD [facility] CPT-90456 Level 4 Est. Patient 19:50:11 CDT Gareth Cancino MD [facility] CPT-26883 Level 3 Est. Patient 11:00:13 CDT Gareth Cancino MD [facility] CPT-51796 Level 4 Est. Patient 11:20:21 CDT Gareth Cancino MD [facility] CPT-82557 Level 4 Est. Patient 09:22:18 CAR REPAIRMAN Gareth Cancino MD [facility] CPT-28459 Level 3 Est. Patient 09:48:04 CDT Gareth Cancino MD [facility] CPT-39424 Level 3 Est. Patient 10:13:16 CDT Gareth Cancino MD [facility] CPT-78351 Level 2 Est. Patient 18:36:56 CDT Gareth Cancino MD [facility] CPT-28460 Level 4 Est. Patient 13:50:53 CDT Gareth Cancino MD [facility] CPT-15429 Level 3 Est. Patient 14:58:33 CAR REPAIRMAN Gareth Cancino MD [facility] CPT-00475 Level 4 Est. Patient 09:25:57 CDT aGreth Cancino MD [facility] CPT-61972 Level 3 Est. Patient 20:39:33 CDT Noman Edwards DO [facility] CPT-34639 Level 2 Est. Patient 13:17:39 CDT Gareth Cancino MD [facility] CPT-48435 Level 3 Est. Patient 13:37:20 CDT Gareth Cancino MD [facility] CPT-16568 Level 3 Est. Patient 18:09:08 CDT Gareth Cancino MD [facility] CPT-36780 Level 4 Est. Patient 09:59:07 CDT Gareth Cancino MD [facility] Procedures Code Procedure Name Date Entry Date Standard Description CPT-000 Give Appropriate Flu Vaccine 09:29:52 CAR REPAIRMAN CPT-000 Give Appropriate Flu Vaccine 09:22:20 CAR REPAIRMAN CPT-89005 TSH - LAB USE ONLY 08:11:40 CAR REPAIRMAN CPT-17047 Free T4 - LAB USE ONLY 08:11:40 CAR REPAIRMAN CPT-91736 Venipuncture Draw Fee 08:11:40 CAR REPAIRMAN CPT-41251 UA w micro - LAB USE ONLY 14:26:22 CAR REPAIRMAN CPT-G0438 Initial Annual Wellness Exam 20:53:25 CAR REPAIRMAN CPT-G0009 Administration of Pneumococcal Vaccine 11:42:53 CAR REPAIRMAN CPT-40289 Prevnar 13 Intramuscular Suspension 11:42:53 CAR REPAIRMAN 01/07 CPT-78054 First Vx - Ix admin for Medicare patients 11:39:44 CAR REPAIRMAN CPT-33011 Fluzone High-Dose Intramuscular Suspension 11:39:44 CAR REPAIRMAN CPT-93349 Prevnar 13 Intramuscular Suspension 09:29:52 CAR REPAIRMAN 01/07 CPT-76817 CMP - LAB USE ONLY 16:31:15 CDT CPT-66937 CBC - LAB USE ONLY 16:31:14 CDT CPT-78463 Venipuncture Draw Fee 16:31:14 CDT CPT-97401 BMP - LAB USE ONLY 14:37:27 CDT CPT-50843 CBC - LAB USE ONLY 14:37:27 CDT CPT-04003 Venipuncture Draw Fee 14:37:27 CDT CPT-TCMM Transitional Care Mgmt-Moderate 14:43:38 CDT CPT-47210 Venipuncture Draw Fee 10:33:47 CDT CPT-89063 BMP - LAB USE ONLY 10:33:46 CDT CPT-Cryo Cryotherapy 15:12:03 CDT CPT-66482 LS spine AP and Lat - XRAY USE ONLY 10:31:51 CDT 07/27 CPT-72376 Punch biopsy 1 lsn 20:40:09 CDT CPT-G0008 Administration of Influenza Virus Vaccine 10:04:48 CAR REPAIRMAN CPT-52442 Fluzone High-Dose Intramuscular Suspension 10:04:48 CAR REPAIRMAN CPT-61976 Ribs unilat w PA chst min 3V 10:45:40 CDT CPT-LR Lesion Removal 13:14:55 CDT CPT-Cryo Cryotherapy 13:14:55 CDT CPT-65600 Venipuncture Draw Fee 10:25:49 CDT CPT-19670 Administration single or combination vaccine inc oral 13 :22:14 CAR REPAIRMAN CPT-25661 Influenza High Dose age 65+ 13:22:14 CAR REPAIRMAN
[2016-12-06] MEDS ORDERED: proPOfol 200 MG/20 ML (DIPRIVAN) VIAL IV ONE ×2 (09:39→11:48)
[2016-12-06] MEDS ORDERED: SUCCINYLCHOLINE INJ 100 MG/5 ML SYR ONE (09:39)
[2016-12-06] MEDS ORDERED: ROCURONIUM 50 MG/5 ML (ZEMURON) VIAL IV ONE (09:39)
[2016-12-06] MEDS ORDERED: ONDANSETRON 4 MG/2 ML (SDV) Z0FRAN ONE ×2 (09:39→15:09)
[2016-12-06] MEDS ORDERED: LIDOCAINE PF 2% 5 ML (XYLOCAINE) VIAL ONE (09:39)
--- OUTSIDE RECORDS SUMMARY | 2016-12-06 09:39 | XMS REPORT | Continuity of Care Document ---
Demographics x Preferred Language Unknown Marital Status Unknown Hinduism Affiliation Unknown Race Unknown Ethnic Group Unknown Author Author [facility] Organization [facility] Address Unknown Phone Unavailable Allergies Active Description Code Type Severity Reaction Onset Reported/Identified Relationship to Patient Clinical Status Yes No known drug allergies [id number] ND N/A N/A Medications Problems Procedures Code [place] [address] COMP SCREEN MAMMOGRAM ADD-ON 05/28/2015 13743 MAMMOGRAM, SCREENING 05/28/2015 Results Encounters ACCT No. Visit Date/Time Discharge Status Pt. Type Provider Facility Loc./Unit Complaint [id number] 05/28/2015 08:45:00 05/28/2015 08 :45:00 DIS Outpatient RAJESH ACOSTA [facility] RAD [id number] 11/05/2013 12:56:00 11/05/2013 12 :56:00 DIS Outpatient RAJESH ACOSTA [facility] RAD [id number] 09/20/2016 10:32:13 ACT Unknown
[2016-12-06] MEDS: LACTATED RINGERS 1,000 ML IV PRN ×4 (09:40→14:45)
[2016-12-06] MEDS ORDERED: MIDAZOLAM 2 MG/2 ML (VERSED) VIAL ONE (09:40)
[2016-12-06] MEDS ORDERED: fentaNYL INJECTION 100 MCG/2 ML AMP ONE ×3 (09:40→15:08)
[2016-12-06] MEDS ORDERED: DEXMEDETOMIDINE 200 MCG/2 ML (PRECEDEX) VIAL IV ONE (09:44)
[2016-12-06] MEDS ORDERED: TRANEXAMIC ACID 100 MG/ML 10 ML INJECTION IV ONE (13:50)
[2016-12-06] MEDS ORDERED: PHENYLEPHRINE 100 MCG/ML 10 ML (ANESTHESIA) SYR ONE ×2 (13:52→14:49)
[2016-12-06] MEDS ORDERED: NS IV 1000 ML 1,000 ML ONE ×2 (14:16→17:45)
[2016-12-06] MEDS ORDERED: MEPERIDINE (DEMEROL) INJ 50 MG/ML ONE (15:08)
[2016-12-06] MEDS ORDERED: morphine INJ 10 MG/ML 1ML (SYR OR VIAL) ONE (15:09)
[2016-12-06] MEDS ORDERED: ONDANSETRON 4 MG/2 ML (SDV) Z0FRAN IV PRN (15:30)
[2016-12-06] MEDS ORDERED: diphenhydrAMINE 25 MG TAB (BENADRYL) PO PRN (15:30)
[2016-12-06] MEDS ORDERED: BISACODYL 10 MG SUPP (DULCOLAX) PR PRN (15:30)
[2016-12-06] MEDS ORDERED: RT-ALBUTEROL SULF 2.5 MG/3 ML PRE-MIX VIAL IH STA (15:31)
[2016-12-06] MEDS ORDERED: SEVOFLURANE (ULTANE) 15 ML INHAL SOLN ONE (15:34)
[2016-12-06] MEDS ORDERED: morphine INJ 10 MG/ML 1ML (SYR OR VIAL) IVP PRN (16:45)
--- NOTE | 2016-12-06 16:53 | Diagnostic Imaging Report ---
EXAMINATION: Intraoperative views of the lumbar spine. INDICATION: Spinal fusion surgery. IMPRESSION: There are anterior and posterior fusion changes seen involving the L3 to S1 levels in good alignment. FLUOROSCOPY TIME: 1 minute and 55 seconds. Dictated by: Dictated on workstation # [id number]
[2016-12-06] MEDS ORDERED: RT-ALBUTEROL SULF 2.5 MG/3 ML PRE-MIX VIAL ONE (17:55)
--- NOTE | 2016-12-06 18:03 | Consultation-Hospitalist ---
HPI History of Present Illness: HPI/Chief Complaint CC: medical management following extensive lumbar spine surgery uncomplicated by Dr Hancock HPI: this is a 70-year-old white female clinic patient of Dr. Cancino in [facility] in [facility] the presents after an uncomplicated extensive lumbar spine surgery although she did have 1500 mL of blood loss and received 2 units of blood in OR but has since experienced hypotension upon arrival to floor necessitating transfer to ICU for hypovolumic hypotensive state in need of close monitoring and IVF boluses. Currently she is having difficulty mentating and having wheezing on exam so I placed emergent orders for ICU and contacted Dr Lubin regarding this case along with stat Neb treatment by RT. Pt states she is having back pain but otherwise she has no other issues although she feels weak. Upon my assessment she appears pale and slightly tachypneic although this is a subtle finding. Kam Ortega arrives in room and agrees with the plan for the transfer. Source: patient, family Exam Limitations: clinical condition Date Seen 12/06/16 Attending Physician Adria Hancock DO PCP No,Local Physician Referring Physician Date of Admission Dec 06, 2016 at 07:45 Home Medications & Allergies Home Medications Reviewed patient Home Medication Reconciliation Form Allergies Allergies Coded Allergies hydrocodone (Unverified Allergy, Unknown, 12/06/16) per pt tramadol (Unverified Allergy, Unknown, 12/06/16) per pt Past Hpljpvd-Ecbjyh-Oshfgt Hx Patient Social History Marrital Status: Employed/Student: retired Alcohol Use: Denies Use Recreational Drug Use: No Smoking Status: Current Everyday Smoker Type Used: Cigarettes Physical Abuse Screen: No Sexual Abuse: No Recent Foreign Travel: No Contact w/other who traveled: No Recent Hopitalizations: No Recent Infectious Disease Expo: No Seasonal Allergies Seasonal Allergies: Yes (AT TIMES) Surgeries Yes Orthopedic Respiratory Yes (GETS SOB WITH EXERTION) COPD Cardiovascular Yes High Cholesterol, Hypertension Neurological No Genitourinary No Gastrointestinal No Musculoskeletal Yes (STENOSIS) Arthritis, Chronic Back Pain Endocrine History of Endocrine Disorders: No HEENT History of HEENT Disorders: Yes (PARTIAL UPPER DENTURES) Loss of Vision: Bilateral Hearing Impairment: Denies Cancer No Psychosocial History of Psychiatric Problem: No Integumentary History of Skin or Integumenta: No Blood Transfusions History of Blood Disorders: No Family Medical History Family Hx: Cardiovascular disease G8 BROTHER Dementia G8 SISTER FH: brain cancer 19 FATHER Gastroenteritis G8 BROTHER Hypertension 19 MOTHER G8 BROTHER Myocardial infarction G8 BROTHER Parkinson's disease G8 SISTER Respiratory disorder G8 BROTHER (lung ca) Review of Systems Constitutional: see HPI, weakness EENTM: no symptoms reported Respiratory: short of breath, wheezing Cardiovascular: no symptoms reported Gastrointestinal: no symptoms reported Genitourinary: no symptoms reported Musculoskeletal: back pain Skin: no symptoms reported Psychiatric/Neurological: No Symptoms Reported Physical Exam Physical Exam Vital Signs Vital Sign - Last 12Hours 12/06/16 12/06/16 08:52 15:36 Temp 96.9 Pulse 72 Resp 16 B/P (MAP) 150/78 Pulse Ox 97 O2 Delivery Room Air O2 Flow Rate 4.00 Capillary Refill : General Appearance: WD/WN, Chronically ill, Mild Distress, Other (pale) Eyes: Bilateral Eye Normal Inspection, Bilateral Eye PERRL HEENT: PERRL/EOMI, Normal ENT Inspection, Pharynx Normal Neck: Full Range of Motion, Normal Inspection, Non Tender, Supple, Carotid Bruit Respiratory: Chest Non Tender, No Accessory Muscle Use, No Respiratory Distress , Crackles, Decreased Breath Sounds, Wheezing Cardiovascular: No Edema, No Gallop, No JVD, No Murmur, Normal Peripheral Pulses, Tachycardia Gastrointestinal: Normal Bowel Sounds, No Organomegaly, No Pulsatile Mass, Non Tender, Soft Back: Normal Inspection, No CVA Tenderness, No Vertebral Tenderness Extremity: Normal Capillary Refill, Normal Inspection, Normal Range of Motion, Non Tender, No Calf Tenderness, No Pedal Edema Neurologic/Psychiatric: Alert, Oriented x3, No Motor/Sensory Deficits, Other ( poor comprehension) Skin: Normal Color, Warm/Dry Lymphatic: No Adenopathy Results Results/Procedures Lab Laboratory Tests 12/06/16 13:30 12/06/16 15:49 Assessment/Plan Admission Diagnosis Assessment: Hypotension due to hypovolemia from 1500 mL of blood loss during surgery status post 2 units of packed red blood cell transfusion but remains hypotensive needing transferred to the ICU for IV fluid boluses and possible pressor therapy COPD with current smoking and current wheezing on exam with mild tachypnea History of hypertension GERD HLP Assessment and Plan Plan: Consulted Dr. Lubin his help is appreciated Consulted Dr. Khanna his help is appreciated IV fluid boluses Check hemoglobin Nebs treatments with DuoNeb Monitor closely Clinical Quality Measures DVT/VTE Risk/Contraindication: Risk Factor Score Per Nursin RFS Level Per Nursing on Admit: 4+=Very High MAGDALENE ANDRES DO Dec 06, 2016 18:03
[2016-12-06] MEDS: NS IV 1000 ML 1,000 ML IV SCH ×3 (18:05→20:12)
[2016-12-06] MEDS: CYCLOBENZAPRINE 10 MG (FLEXERIL) TAB PO PRN (19:32)
[2016-12-06] MEDS: morphine INJ 4 MG/ML 1 ML (VIAL/SYRINGE) IVP PRN (19:48)
[2016-12-06] MEDS: ceFAZolin INJECTION 1,000 MG in NS (IVPB) 50 ML IV SCH (19:49)
[2016-12-06] MEDS: FAMOTIDINE 20 MG (PEPCID) TABLET PO SCH (20:12)
[2016-12-06] MEDS: DOCUSATE SODIUM 100 MG (COLACE) CAP PO SCH (20:12)
[2016-12-06 20:33] LABS: BASOPHILS % (AUTO) 0 % (0-10); EOSINOPHILS % (AUTO) 0 % (0-10); LYMPHOCYTES # (AUTO) 0.7 X 10^3 (1.0-4.0); LYMPHOCYTES % (AUTO) 4 % (12-44); MEAN CORPUSCULAR HEMOGLOBIN 30 PG (25-34); MEAN CORPUSCULAR HGB CONC 34 G/DL (32-36); MEAN CORPUSCULAR VOLUME 88 FL (80-99); MEAN PLATELET VOLUME 9.1 FL (7.4-10.4); MONOCYTES # (AUTO) 2.1 X 10^3 (0.0-1.0); MONOCYTES % (AUTO) 12 % (0-12); NEUTROPHILS % (AUTO) 84 % (42-75); PLATELET COUNT 167 10^3/uL (130-400); RED BLOOD COUNT 3.68 10^6/uL (4.35-5.85); RED CELL DISTRIBUTION WIDTH 15.1 % (10.0-14.5); WHITE BLOOD COUNT 17.8 10^3/uL (4.3-11.0)
[2016-12-06 20:51] LABS: BAND NEUTROPHILS 3 %; BASOPHILS % (MANUAL) 0 %; EOSINOPHILS % (MANUAL) 0 %; LYMPHOCYTES % (MANUAL) 10 %; NEUTROPHILS % (MANUAL) 85 %
[2016-12-06 20:56] LABS: ALANINE AMINOTRANSFERASE 18 U/L (0-55); ALBUMIN 2.7 GM/DL (3.2-4.5); ANION GAP 5 MMOL/L (5-14); ASPARTATE AMINO TRANSFERASE 22 U/L (5-34); BILIRUBIN,TOTAL 0.5 MG/DL (0.1-1.0); BLOOD UREA NITROGEN 15 MG/DL (7-18); BUN/CREATININE RATIO 23; CARBON DIOXIDE 22 MMOL/L (21-32); CHLORIDE 109 MMOL/L (98-107); CREATININE SERUM 0.64 MG/DL (0.60-1.30); GFR ESTIMATED > 60; GLUCOSE 141 MG/DL (70-105); MAGNESIUM 1.3 MG/DL (1.8-2.4); PHOSPHORUS 3.1 MG/DL (2.3-4.7); POTASSIUM 4.3 MMOL/L (3.6-5.0); SODIUM 136 MMOL/L (135-145); TOTAL PROTEIN 4.2 GM/DL (6.4-8.2)
[2016-12-06] MEDS ORDERED: RT-ALBUTEROL/IPRATROPIUM 3 ML (DUONEB) VIAL INH SCH (21:00)
[2016-12-06] MEDS: oxyCODONE/APAP 5/325MG (PERCOCET 5) TABLET PO PRN (22:28)
[2016-12-06] MEDS: ALPRAZolam 0.25 MG (XANAX) TAB PO PRN (22:28)
[2016-12-06] MEDS: MAGNESIUM 1 GM/100 ML IVPB 100 ML IV SCH ×2 (22:54→23:58)
[2016-12-07] VITALS (25 sets, daily range): BP systolic 108–143; BP diastolic 44–74
[2016-12-07] MEDS: MAGNESIUM 1 GM/100 ML IVPB 100 ML IV SCH ×3 (00:56→05:45)
[2016-12-07] MEDS: morphine INJ 4 MG/ML 1 ML (VIAL/SYRINGE) IVP PRN ×4 (00:56→21:49)
[2016-12-07] MEDS: NS IV 1000 ML 1,000 ML IV SCH ×5 (01:48→23:24)
[2016-12-07] MEDS: RT-ALBUTEROL/IPRATROPIUM 3 ML (DUONEB) VIAL INH SCH ×6 (03:18→21:36)
[2016-12-07] MEDS: ceFAZolin INJECTION 1,000 MG in NS (IVPB) 50 ML IV SCH ×2 (03:36→11:13)
[2016-12-07 05:18] LABS: MEAN PLATELET VOLUME 9.9 FL (7.4-10.4); RED BLOOD COUNT 3.4 10^6/uL (4.35-5.85); RED CELL DISTRIBUTION WIDTH 15.4 % (10.0-14.5); WHITE BLOOD COUNT 16.3 10^3/uL (4.3-11.0)
[2016-12-07 05:37] LABS: ALANINE AMINOTRANSFERASE 18 U/L (0-55); ANION GAP 9 MMOL/L (5-14); ASPARTATE AMINO TRANSFERASE 30 U/L (5-34); BILIRUBIN,TOTAL 0.3 MG/DL (0.1-1.0); BLOOD UREA NITROGEN 12 MG/DL (7-18); BUN/CREATININE RATIO 19; CALCIUM 7.1 MG/DL (8.5-10.1); CARBON DIOXIDE 19 MMOL/L (21-32); CHLORIDE 107 MMOL/L (98-107); CREATININE SERUM 0.63 MG/DL (0.60-1.30); GFR ESTIMATED > 60; GLUCOSE 150 MG/DL (70-105); PHOSPHORUS 2.6 MG/DL (2.3-4.7); POTASSIUM 4.4 MMOL/L (3.6-5.0); SODIUM 135 MMOL/L (135-145); TOTAL PROTEIN 4.9 GM/DL (6.4-8.2)
[2016-12-07] MEDS: POTASSIUM CL 10MEQ/50ML IVPB 50 ML IV SCH (05:45)
[2016-12-07] MEDS: KCL 20 MEQ TAB (K-DUR) PO SCH (05:45)
[2016-12-07] MEDS ORDERED: RT-ALBUTEROL/IPRATROPIUM 3 ML (DUONEB) VIAL ONE (06:00)
--- NOTE | 2016-12-07 07:42 | Progress Note (SOAP) ---
Subjective Date Seen by Provider: Dec 07, 2016 Time Seen by Provider: 07:40 Subjective/Events-last exam DIONNE. C/o some expected incisional pain. denies leg pain. denies headaches. she is not on flat bedrest and I have discussed with the nurse the need for this. She has no N/V/CP. Objective Exam Vital Signs Date Time Temp Pulse Resp B/P (MAP) Pulse Ox O2 Delivery O2 Flow Rate FiO2 12/07/16 06:20 Room Air 12/07/16 06:15 100 Nasal Cannula 1.00 12/07/16 06:00 84 14 128/60 99 Nasal Cannula 1.00 12/07/16 05:00 84 14 133/59 97 Nasal Cannula 1.00 12/07/16 04:10 97.4 Nasal Cannula 2.00 12/07/16 04:00 94 Nasal Cannula 2.00 12/07/16 04:00 80 14 122/59 97 Nasal Cannula 1.00 12/07/16 03:30 74 16 128/54 100 Nasal Cannula 1.00 12/07/16 03:19 100 Nasal Cannula 2.00 12/07/16 03:00 75 13 108/48 100 Nasal Cannula 2.00 12/07/16 02:00 79 118/57 100 Nasal Cannula 2.00 12/07/16 01:00 78 12/07/16 01:00 78 124/66 100 Nasal Cannula 2.00 12/07/16 00:00 94 Nasal Cannula 2.00 12/07/16 00:00 79 139/66 99 Nasal Cannula 2.00 12/06/16 23:58 97.0 Nasal Cannula 2.00 12/06/16 23:00 74 136/59 100 Nasal Cannula 2.00 12/06/16 22:00 84 19 148/66 100 Nasal Cannula 2.00 12/06/16 22:00 70 94 12/06/16 21:00 68 15 136/86 100 Nasal Cannula 2.00 12/06/16 20:56 94 Nasal Cannula 2.00 12/06/16 20:01 97.1 Nasal Cannula 2.00 12/06/16 20:00 94 Nasal Cannula 2.00 12/06/16 20:00 73 17 108/55 95 Nasal Cannula 2.00 12/06/16 19:00 70 16 117/66 95 Nasal Cannula 2.00 12/06/16 19:00 70 12/06/16 18:15 94 OxyMask 1.00 12/06/16 18:02 Nasal Cannula 2.00 12/06/16 17:15 96.6 67 22 84/52 95 Simple Mask 1.00 12/06/16 16:55 96.6 66 22 83/49 92 Simple Mask 1.00 12/06/16 16:40 67 22 82/48 91 Room Air 12/06/16 16:25 96.6 67 22 74/42 96 Simple Mask 1.00 12/06/16 15:36 96 OxyMask 4.00 12/06/16 12:45 97.9 12/06/16 12:45 97.8 12/06/16 08:52 96.9 72 16 150/78 97 Room Air Capillary Refill : General Appearance: No Apparent Distress Extremity: Other (06/25 crow LE motor, NVSI, dressing CDI, drain in place and not on suction, scant sanginous drainage) Results Lab Laboratory Tests 12/06/16 13:30: Hemoglobin 11.8, Hematocrit 35 12/06/16 15:49: Hemoglobin 12.3, Hematocrit 38 12/06/16 20:30: Hemoglobin 11.1L, Hematocrit 32L, White Blood Count 17.8H, Red Blood Count 3.68L , Mean Corpuscular Volume 88, Mean Corpuscular Hemoglobin 30, Mean Corpuscular Hemoglobin Concent 34, Red Cell Distribution Width 15.1H, Platelet Count 167, Mean Platelet Volume 9.1, Neutrophils (%) (Auto) 84H, Lymphocytes (%) (Auto) 4L , Monocytes (%) (Auto) 12, Eosinophils (%) (Auto) 0, Basophils (%) (Auto) 0, Neutrophils # (Auto) 15.0H, Lymphocytes # (Auto) 0.7L, Monocytes # (Auto) 2.1H, Eosinophils # (Auto) 0.0, Basophils # (Auto) 0.0, Neutrophils % (Manual) 85, Lymphocytes % (Manual) 10, Monocytes % (Manual) 2, Eosinophils % (Manual) 0, Basophils % (Manual) 0, Band Neutrophils 3, Blood Morphology Comment NORMAL, Sodium Level 136, Potassium Level 4.3, Chloride Level 109H, Carbon Dioxide Level 22, Anion Gap 5, Blood Urea Nitrogen 15, Creatinine 0.64, Estimat Glomerular Filtration Rate > 60, BUN/Creatinine Ratio 23, Glucose Level 141H, Calcium Level 7.0L, Phosphorus Level 3.1, Magnesium Level 1.3L, Total Bilirubin 0.5, Aspartate Amino Transf (AST/SGOT) 22, Alanine Aminotransferase (ALT/SGPT) 18, Alkaline Phosphatase 37L, Total Protein 4.2L, Albumin 2.7L 12/07/16 05:10: Hemoglobin 10.0L, Hematocrit 30L, White Blood Count 16.3H, Red Blood Count 3.40L , Mean Corpuscular Volume 88, Mean Corpuscular Hemoglobin 29, Mean Corpuscular Hemoglobin Concent 33, Red Cell Distribution Width 15.4H, Platelet Count 157, Mean Platelet Volume 9.9, Sodium Level 135, Potassium Level 4.4, Chloride Level 107, Carbon Dioxide Level 19L, Anion Gap 9, Blood Urea Nitrogen 12, Creatinine 0.63, Estimat Glomerular Filtration Rate > 60, BUN/Creatinine Ratio 19, Glucose Level 150H, Calcium Level 7.1L, Phosphorus Level 2.6, Magnesium Level 2.5H, Total Bilirubin 0.3, Aspartate Amino Transf (AST/SGOT) 30, Alanine Aminotransferase (ALT/SGPT) 18, Alkaline Phosphatase 34L, Total Protein 4.9L, Albumin 3.0L Assessment/Plan Assessment/Plan Assess & Plan/Chief Complaint ASSESSMENT: s/p L3-S1 PSIF complicated by durotomy PLAN: flat bedrest continue drain follow Hg closely dr scruggs on board for medicine raise HOB at noon then OOB if no headaches Clinical Quality Measures DVT/VTE Risk/Contraindication: Risk Factor Score Per Nursin RFS Level Per Nursing on Admit: 4+=Very High RICHIE DUBOIS DO Dec 07, 2016 07:42
--- NOTE | 2016-12-07 07:44 | Pulmonary Consultation ---
History of Present Illness History of Present Illness Date of Consultation 12/07/16 07:33 Time Seen by Provider: 07:33 Date of Admission History of Present Illness 70yo pt presented s/p lumbar spine surgery pt lost 1500ml of blood and received 2 units of PRBC in the OR and became hypotensive. Pt had developed wheezing and SOB after transfusion however improved after SVN treatments. No prior hx like this. I am consulted for pulmonary/CC management. Allergies and Home Medications Allergies Coded Allergies: tramadol (Unverified Allergy, Unknown, 12/06/16) per pt Home Medications Acetaminophen/Diphenhydramine 1 Each Tablet, 1-2 EACH PO HS PRN for SLEEP, ( Reported) Alprazolam 0.25 Mg Tablet, 0.25 MG PO HS PRN for SLEEP, (Reported) Aspirin 81 Mg Tab.chew, 81 MG PO DAILY, (Reported) Diphenhydramine HCl 25 Mg Tablet, 25 MG PO DAILY PRN for allergies symptoms, ( Reported) Docusate Sodium 100 Mg Capsule, 200 MG PO DAILY, (Reported) take 2 (100mg) tabs Glycopyrrolate/Formoterol Fum 10.7 Gm Hfa.aer.ad, 2 PUFF IH BID, (Reported) Lisinopril 20 Mg Tablet, 20 MG PO DAILY, (Reported) Metoprolol Succinate 100 Mg Tab.er.24h, 100 MG PO DAILY, (Reported) Omeprazole 40 Mg Capsule.dr, 40 MG PO DAILY, (Reported) Piroxicam 20 Mg Capsule, 20 MG PO DAILY PRN for arthritis pain, (Reported) Simvastatin 40 Mg Tablet, 40 MG PO DAILY, (Reported) Triamterene/Hydrochlorothiazid 1 Each Capsule, 1 EACH PO DAILY, (Reported) Past Mtztits-Coewxz-Uihidu Hx Patient Social History Alcohol Use: Denies Use Recreational Drug Use: No Smoking Status: Current Everyday Smoker Type Used: Cigarettes Recent Foreign Travel: No Contact w/Someone Who Travel: No Recent Infectious Disease Expo: No Recent Hopitalizations: No Seasonal Allergies Seasonal Allergies: Yes (AT TIMES) Surgeries History of Surgeries: Yes Surgeries: Orthopedic Respiratory History of Respiratory Disorde: Yes (GETS SOB WITH EXERTION) Cardiovascular History of Cardiac Disorders: Yes Cardiac Disorders: High Cholesterol, Hypertension Neurological History of Neurological Disord: No Genitourinary History of Genitourinary Disor: No Gastrointestinal History of Gastrointestinal Di: No Musculoskeletal History of Musculoskeletal Dis: Yes (STENOSIS) Musculoskeletal Disorders: Arthritis, Chronic Back Pain Endocrine History of Endocrine Disorders: No HEENT History of HEENT Disorders: Yes (PARTIAL UPPER DENTURES) Loss of Vision: Bilateral Hearing Impairment: Denies Cancer History of Cancer: No Psychosocial History of Psychiatric Problem: No Integumentary History of Skin or Integumenta: No Blood Transfusions History of Blood Disorders: No Family Medical History Family Medial History: Cardiovascular disease G8 BROTHER Dementia G8 SISTER FH: brain cancer 19 FATHER Gastroenteritis G8 BROTHER Hypertension 19 MOTHER G8 BROTHER Myocardial infarction G8 BROTHER Parkinson's disease G8 SISTER Respiratory disorder G8 BROTHER (lung ca) Review of Systems Time Seen by Provider: 07:53 Constitutional: Weakness, Malaise, No: Fever, Chills, Sweats, Other Eyes: No: Pain, Vision change, Conjunctivae inflammation, Eyelid inflammation, Other, Redness ENT: No: Ear pain, Ear discharge, Nose pain, Nose discharge, Nose congestion, Mouth pain, Mouth swelling, Throat pain, Throat swelling, Other Respiratory: Cough, Dry, Shortness of breath, Wheezing, No: Hemoptysis Cardiovascular: No: Chest Pain, Palpitations, Orthopnea, Paroxysmal Noc. Dyspnea, Edema, Lt Headedness, Other Gastrointestinal: No: Nausea, Vomiting, Abdominal Pain, Diarrhea, Constipation , Melena, Hematochezia, Other Genitourinary: No Dysuria, No Frequency, No Incontinence, No Hematuria, No Retention, No Other Musculoskeletal: back pain Exam Exam Vital Signs Date Time Temp Pulse Resp B/P (MAP) Pulse Ox O2 Delivery O2 Flow Rate FiO2 12/07/16 06:20 Room Air 12/07/16 06:15 100 Nasal Cannula 1.00 12/07/16 06:00 84 14 128/60 99 Nasal Cannula 1.00 12/07/16 05:00 84 14 133/59 97 Nasal Cannula 1.00 12/07/16 04:10 97.4 Nasal Cannula 2.00 12/07/16 04:00 94 Nasal Cannula 2.00 12/07/16 04:00 80 14 122/59 97 Nasal Cannula 1.00 12/07/16 03:30 74 16 128/54 100 Nasal Cannula 1.00 12/07/16 03:19 100 Nasal Cannula 2.00 12/07/16 03:00 75 13 108/48 100 Nasal Cannula 2.00 12/07/16 02:00 79 118/57 100 Nasal Cannula 2.00 12/07/16 01:00 78 12/07/16 01:00 78 124/66 100 Nasal Cannula 2.00 12/07/16 00:00 94 Nasal Cannula 2.00 12/07/16 00:00 79 139/66 99 Nasal Cannula 2.00 12/06/16 23:58 97.0 Nasal Cannula 2.00 12/06/16 23:00 74 136/59 100 Nasal Cannula 2.00 12/06/16 22:00 84 19 148/66 100 Nasal Cannula 2.00 12/06/16 22:00 70 94 12/06/16 21:00 68 15 136/86 100 Nasal Cannula 2.00 12/06/16 20:56 94 Nasal Cannula 2.00 12/06/16 20:01 97.1 Nasal Cannula 2.00 12/06/16 20:00 94 Nasal Cannula 2.00 12/06/16 20:00 73 17 108/55 95 Nasal Cannula 2.00 12/06/16 19:00 70 16 117/66 95 Nasal Cannula 2.00 12/06/16 19:00 70 12/06/16 18:15 94 OxyMask 1.00 12/06/16 18:02 Nasal Cannula 2.00 12/06/16 17:15 96.6 67 22 84/52 95 Simple Mask 1.00 12/06/16 16:55 96.6 66 22 83/49 92 Simple Mask 1.00 12/06/16 16:40 67 22 82/48 91 Room Air 12/06/16 16:25 96.6 67 22 74/42 96 Simple Mask 1.00 12/06/16 15:36 96 OxyMask 4.00 12/06/16 12:45 97.9 12/06/16 12:45 97.8 12/06/16 08:52 96.9 72 16 150/78 97 Room Air General Appearance: WD/WN, Chronically ill, Mild Distress, Other (pale) HEENT: PERRL/EOMI, Normal ENT Inspection, Pharynx Normal Neck: Full Range of Motion, Normal Inspection, Non Tender, Supple, Carotid Bruit Respiratory: Chest Non Tender, No Accessory Muscle Use, No Respiratory Distress , Crackles, Decreased Breath Sounds, Wheezing Cardiovascular: No Edema, No Gallop, No JVD, No Murmur, Normal Peripheral Pulses, Tachycardia Extremity: Normal Capillary Refill, Normal Inspection, Normal Range of Motion, Non Tender, No Calf Tenderness, No Pedal Edema Neurologic/Psychiatric: Alert, Oriented x3, No Motor/Sensory Deficits, Other ( poor comprehension) Skin: Normal Color, Warm/Dry Lymphatic: No Adenopathy Results Lab Laboratory Tests 12/06/16 13:30 12/06/16 15:49 12/06/16 20:30 12/07/16 05:10 Assessment/Plan Assessment/Plan s/p L3-S1 PSIF complicated by durotomy Acute blood loss secondary to surgery with hypotension -monitor SOB with wheezing -Will give 40mg of lasix x 1 check BNP -SVNs -Monitor -IS 255 Clinical Quality Measures DVT/VTE Risk/Contraindication: Risk Factor Score Per Nursin RFS Level Per Nursing on Admit: 4+=Very High FELICIA LOPEZ DO Dec 07, 2016 07:44
[2016-12-07] MEDS: FAMOTIDINE 20 MG (PEPCID) TABLET PO SCH ×2 (07:45→20:01)
[2016-12-07] MEDS: DOCUSATE SODIUM 100 MG (COLACE) CAP PO SCH ×2 (07:45→20:01)
[2016-12-07] MEDS: MULTIVIT W/MINERALS TAB (THERAGRAN M) PO SCH (07:47)
[2016-12-07] MEDS ORDERED: FUROSEMIDE 40 MG/4 ML INJ (LASIX) IVP ONE (08:00)
[2016-12-07] MEDS ORDERED: FUROSEMIDE 40 MG/4 ML INJ (LASIX) IVP NR (08:00)
--- NOTE | 2016-12-07 08:21 | Diagnostic Imaging Report ---
INDICATION: Cough. Congestion. COMPARISON: 08/27/2016 FINDINGS: Single frontal view of the chest demonstrates normal heart size and pulmonary vascularity. Multiple infrahilar calcified granuloma are noted on the right. The lungs are well aerated and clear. No large pleural effusion or pneumothorax is seen. The visualized osseous structures show no acute abnormalities. IMPRESSION: 1. No acute cardiopulmonary process. Dictated by: Dictated on workstation # [id number]
--- NOTE | 2016-12-07 08:46 | Progress Note-Hospitalist ---
Progress Note HPI/CC on Admission CC: medical management following extensive lumbar spine surgery uncomplicated by Dr Hancock HPI: this is a 70-year-old white female clinic patient of Dr. Cancino in [facility] in [facility] the presents after an uncomplicated extensive lumbar spine surgery although she did have 1500 mL of blood loss and received 2 units of blood in OR but has since experienced hypotension upon arrival to floor necessitating transfer to ICU for hypovolumic hypotensive state in need of close monitoring and IVF boluses. Currently she is having difficulty mentating and having wheezing on exam so I placed emergent orders for ICU and contacted Dr Lubin regarding this case along with stat Neb treatment by RT. Pt states she is having back pain but otherwise she has no other issues although she feels weak. Upon my assessment she appears pale and slightly tachypneic although this is a subtle finding. Kam Ortega arrives in room and agrees with the plan for the transfer. Progress Notes/Assess & Plan Date Seen 12/07/16 Time Seen by Provider: 08:30 Admission Dx/Process Assessment: Hypotension due to hypovolemia from 1500 mL of blood loss during surgery status post 2 units of packed red blood cell transfusion but remains hypotensive needing transferred to the ICU for IV fluid boluses and possible pressor therapy COPD with current smoking and current wheezing on exam with mild tachypnea History of hypertension GERD HLP Diagonsis/Assessment & Plan Patient doing much better after receiving a total of 5-1/2 L last night after the 2 units of blood given in OMR Did not require pressor therapy Lasix given due to volume overload Nebulizer treatments are tolerated Minimal headache from dural tear Checked meds and labs No fever, vital signs stable, pleasant, oriented 3, pale but appears to be chronic now improved from last night Regular rate and rhythm, wheezing all larsen and coarseness on auscultation No edema Laboratory Tests 12/06/16 13:30 12/06/16 15:49 12/06/16 20:30 12/07/16 05:10 Assessment: s/p post-op hypotension due to hypovolemia from 1500 mL of blood loss during surgery status post 2 units of packed red blood cell transfusion in OR but remained hypotensive necessitating transfer to the ICU last night for IV fluid boluses of 5.5 liters but did not require pressor therapy COPD with current smoking and current wheezing on exam with mild tachypnea consulted Dr Lubin and placed on Nebs Evidence of mild volume overload with elevated BNP s/p one dose of Lasix this am by Dr Lubin and have consulted Dr Khanna as precaution Post op anemia due to acute blood loss History of hypertension as out pt holding home meds GERD HLP Plan: Dr. Lubin's help is appreciated Dr. Khanna's help is appreciated Nebs treatments with DuoNeb Monitor closely MAGDALNEE ANDRES DO Dec 07, 2016 08:46
[2016-12-07] MEDS ORDERED: meTOprolol SUCCINATE 100 MG (TOPROL XL) TAB PO SCH (09:00)
[2016-12-07] MEDS ORDERED: TRIAMTERENE/HCTZ 75-50 (MAXZIDE,DYAZIDE) TABLET PO SCH (09:00)
[2016-12-07] MEDS ORDERED: lisINopril 20 MG (ZESTRIL) TAB PO SCH (09:00)
[2016-12-07] MEDS ORDERED: SIMvastatin 40 MG (ZOCOR) TAB PO SCH (09:00)
--- NOTE | 2016-12-07 09:35 | OPERATIVE REPORT ---
DATE OF SERVICE: 12/06/2016 SURGEON: Adria Hancock MD VENDOR MANAGEMENT ASSOCIATE: ELLSI Grewal This is a medically under separate procedure. An senior underwriting assistant is necessary for retraction of vital neurovascular structures. Without an senior underwriting assistant, the procedure would not be possible. PREOPERATIVE DIAGNOSES: 1. Lumbar facet cyst. 2. Lumbar radiculopathy. 3. Lumbar spinal stenosis (foraminal, bony). POSTOPERATIVE DIAGNOSES: 1. Lumbar facet cyst. 2. Lumbar radiculopathy. 3. Lumbar spinal stenosis (foraminal, bony). PROCEDURE PERFORMED: 1. L3-L4, L4-L5 lateral interbody lumbar fusion. 2. Application of PEEK cage at L3-L4, L4-L5. 3. Repair of durotomy. 4. Bilateral laminectomy, L3-L4, L4-L5, L5-S1. 5. Posterior spinal fusion, L3-L4, L4-L5, L5-S1. 6. Posterior instrumentation, L3-L4, L4-L5, L5-S1. 7. Resection of facet cyst, L3-L4. 8. Use of human allograft for spine. 9. Use of local bone autograft. COMPLICATIONS: Incidental durotomy. DRAIN PLACED: Subfascial Hemovac. ESTIMATED BLOOD LOSS: 1800 mL. ANESTHESIA: General endotracheal tube anesthesia with local anesthetic. SPCIMEN SENT: None. HISTORY OF PRESENT ILLNESS: The patient is a very pleasant 70-year-old female, who presented to me with severe lumbar spine stenosis and a large expansile facet cyst causing significant neurocompression. She had failed conservative measures and she did wish to have this address surgically. She understood the risks, benefits. OPERATION: The patient was identified by name on wrist band in the preoperative holding area. The operative site was signed and consent was signed. SCDs were placed. Neuro monitor was hooked up. ATopofForm ntibiotics were started. She was taken to the operating room theater, placed under general endotracheal tube anesthesia and transferred to the operating room table in the lateral position with left side up. The table was then bent to allow access to a L4-L5 disc space. She was secured to the table, prepped and draped in the usual sterile fashion. A formal timeout was conducted. At this point, I made a longitudinal incision over the L3-L4 and L4-L5 disc space. I proceeded with a standard lateral retroperitoneal approach to this lumbar spine. I docked a NuVasive retractor over the midpoint of the L4-L5 disc space. I used EMG nerve monitoring to exclude the presence of any nerves. I then performed an annulotomy followed by complete discectomy. I then sized and chose the appropriate PEEK interbody cage packed with human allograft, now seated in the midline position. I then repeated this process at L3-L4, performing an annulotomy followed by a complete discectomy followed by placement of a PEEK interbody cage packed with human allograft. AP and lateral x-ray demonstrate good positioning of my cages. So, I irrigated wound and closed in my usual layered fashion utilizing 0 Vicryl followed by 2-0 Vicryl followed by rfancisco for skin. I applied dressing. I then placed the patient in the prone position on a radiolucent Carroll table. I made a midline lumbar incision from spinous process of L3, spinous process of S1. I proceeded with a bilateral subperiosteal paraspinal muscular approach exposing the posterior elements of the lumbar spine. At this point, please note there was significant bleeding, which was very difficult to control due to the very difficult visibility. There was incidental durotomy appreciated at approximately at the L4-L5 level. I went ahead and completed my bilateral laminectomies from L3-L4, L4-L5, L5-S1. At this time, due to the durotomy, there was significant epidural bleeding. I decided to place my pedicle screws at this point. Please note there was significant stenosis and this was fully addressed during the decompression. In addition, I resected a large facet cyst of the L3-L4 facet, which was compressive upon the neuro elements. I placed pedicle screws bilaterally at L3, L4, L5 and S1. I did this under AP and lateral x-ray. I tested them with EMG nerve monitoring and screws were in good position. Therefore, I maintained hemostasis as best I could with FloSeal and cottonoids and I did repair the durotomy with 4-0 Nurolon stitch, was able to achieve a watertight seal. I placed a andre on the left, a andre on the right connecting screws from L3 to S1. I placed set screws and finally tightened those set screws. I decorticated remaining posterior bony elements and I packed the left and right gutter with mixture of human allograft on local bone autograft. I did decide to place the drain, although I normally do not, I felt it was necessary in this case due to her excessive bleeding. The drain was subfascial and was sewn in place and not placed on suction. I then closed the wound in my usual layered fashion utilizing 0 Vicryl followed by 2-0 Vicryl followed by running 3-0 subcuticular stitch. I applied dressings. I took the patient in the supine position in the flat position with her head flat to the PACU where she awoke without incident. She tolerated the procedure well. TopofForm PLAN: At this time, is to keep the patient on flat bed rest for 24 hours. I will continue the drain, but I will not have it on suction. I will get the patient's head raised in 24 hours and assess for headaches, if she has none then she will be out of bed as tolerated. Discontinue her Gabriel catheter per my protocol. She does have a brace to wear while out of bed. Please note instrumentation utilized was NuVasive for everything. Also, note neuromonitoring was stable throughout the procedure. Job ID: [id number] DocumentID: [id number] Dictated Date: 12/06/2016 15:25:52 Pharmaceutical Botanist Date: 12/07/2016 09:34:43 Dictated By: ADRIA HANCOCK DO
[2016-12-07] MEDS: oxyCODONE/APAP 5/325MG (PERCOCET 5) TABLET PO PRN ×3 (09:36→21:49)
[2016-12-07] MEDS: CYCLOBENZAPRINE 10 MG (FLEXERIL) TAB PO PRN (09:36)
--- NOTE | 2016-12-07 14:58 | Consultation-Cardiology ---
HPI-Cardiology Cardiology Consultation: Date of Consultation 12/07/16 Date of Admission Attending Physician Adria Hancock DO Admitting Physician Johanny,Local Physician Consulting Physician Emy KHANNA MD HPI: Time Seen by Provider: 14:54 Chief Complaint: shortness of breath this is a 70-year-old lady who is an active smoker. She underwent extensive back surgery and had significant bleeding. Post surgery she was hypotensive. She has improved significantly with IV fluids and blood transfusion. She still complains of mild shortness of breath. She denies any significant chest pain, syncope, near-syncope or palpitations. She also has history of hypertension and hyperlipidemia and is on medications. She had coronary angiography quite a few years ago which showed mild disease. She has not had any recent cardiac evaluation. Review of Systems-Cardiology Review of Systems Constitutional: No As described under HPI, No no symptoms reported, No chills, No fever, No lightheadedness, No malaise, No tiredness, No weight loss, No weight gain, No other Eyes: No As described under HPI, No no symptoms reported, No blindness, No blurred vision, No contact lenses, No drainage, No decreased acuity, No foreign body sensation, No glasses, No inflammation, No pain, No photophobia, No previous injury, No shadows, No tunnel vision, No other, No vision change Ears/Nose/Throat: No As described under HPI, No no symptoms reported, No chronic hearing loss, No epistaxis, No ear discharge, No ear pain, No loose teeth, No mouth pain, No mouth swelling, No nasal drainage, No nose pain, No recent hearing loss, No throat pain, No throat swelling, No ulcerations, No other Respiratory: shortness of breath Cardiovascular: No no symptoms reported, No As described under HPI, No chest pain, No edema, No irregular heart rate, No lightheadedness, No palpitations, No syncope, No other Gastrointestinal: No no symptoms reported, No As described under HPI, No abdomen distended, No abdominal pain, No blood streaked bowels, No constipation , No diarrhea, No difficulty swallowing, No nausea, No poor appetite, No poor fluid intake, No rectal bleeding, No vomiting, No other, No nausea/vomiting/ diarrhea, No stool coloration changes Genitourinary: No no symptoms reported, No As described under HPI, No burning, No dysuria, No discharge, No frequency, No flank pain, No hematuria, No incontinence, No pain, No urgency, No other, No urine frequency changes, No urine coloration changes Musculoskeletal: back pain Skin: No no symptoms reported, No As described under HPI, No change in color, No change in hair/nails, No dryness, No lesions, No lumps, No rash, No other, No skin related problems, No ulcerations, No rash on exposed areas, No ulcerations on exposed areas Psychiatric/Neurological: No no symptoms reported, No As described under HPI, No anxiety, No depression, No emotional problems, No headache, No numbness, No pre-existing deficit, No seizure, No tingling, No tremors, No weakness, No other , No focal weakness, No syncope CCB-Hzudyp-Fftaxy Hx Patient Social History Marrital Status: Employed/Student: retired Alcohol Use: Denies Use Recreational Drug Use: No Smoking Status: Current Everyday Smoker Type Used: Cigarettes Recent Foreign Travel: No Recent Infectious Disease Expo: No Hospitalization with Isolation: Denies Physical Abuse Screen: No Sexual Abuse: No Past Medical History PMH As described under Assessment. Family Medical History Family History: Cardiovascular disease G8 BROTHER Dementia G8 SISTER FH: brain cancer 19 FATHER Gastroenteritis G8 BROTHER Hypertension 19 MOTHER G8 BROTHER Myocardial infarction G8 BROTHER Parkinson's disease G8 SISTER Respiratory disorder G8 BROTHER (lung ca) Allergies and Home Medications Allergies Coded Allergies: tramadol (Unverified Allergy, Unknown, 12/06/16) per pt Home Medications Acetaminophen/Diphenhydramine 1 Each Tablet, 1-2 EACH PO HS PRN for SLEEP, ( Reported) Alprazolam 0.25 Mg Tablet, 0.25 MG PO HS PRN for SLEEP, (Reported) Aspirin 81 Mg Tab.chew, 81 MG PO DAILY, (Reported) Diphenhydramine HCl 25 Mg Tablet, 25 MG PO DAILY PRN for allergies symptoms, ( Reported) Docusate Sodium 100 Mg Capsule, 200 MG PO DAILY, (Reported) take 2 (100mg) tabs Glycopyrrolate/Formoterol Fum 10.7 Gm Hfa.aer.ad, 2 PUFF IH BID, (Reported) Lisinopril 20 Mg Tablet, 20 MG PO DAILY, (Reported) Metoprolol Succinate 100 Mg Tab.er.24h, 100 MG PO DAILY, (Reported) Omeprazole 40 Mg Capsule.dr, 40 MG PO DAILY, (Reported) Piroxicam 20 Mg Capsule, 20 MG PO DAILY PRN for arthritis pain, (Reported) Simvastatin 40 Mg Tablet, 40 MG PO DAILY, (Reported) Triamterene/Hydrochlorothiazid 1 Each Capsule, 1 EACH PO DAILY, (Reported) Physical Exam-Cardiology Physical Exam Vital Signs/I&O Vital Sign - Last 12Hours 12/07/16 12/07/16 12/07/16 12/07/16 03:00 03:19 03:30 04:00 Pulse 75 74 80 Resp 13 16 14 B/P (MAP) 108/48 128/54 122/59 Pulse Ox 100 100 100 97 O2 Delivery Nasal Cannula Nasal Cannula Nasal Cannula Nasal Cannula O2 Flow Rate 2.00 2.00 1.00 1.00 12/07/16 12/07/16 12/07/16 12/07/16 04:00 04:10 05:00 06:00 Temp 97.4 Pulse 84 84 Resp 14 14 B/P (MAP) 133/59 128/60 Pulse Ox 94 97 99 O2 Delivery Nasal Cannula Nasal Cannula Nasal Cannula Nasal Cannula O2 Flow Rate 2.00 2.00 1.00 1.00 12/07/16 12/07/16 12/07/16 12/07/16 06:15 06:20 07:00 08:00 Pulse 91 B/P (MAP) Pulse Ox 100 94 O2 Delivery Nasal Cannula Room Air Nasal Cannula O2 Flow Rate 1.00 2.00 12/07/16 12/07/16 12/07/16 12/07/16 08:00 10:19 12:00 13:00 Temp 97.2 Pulse 101 B/P (MAP) Pulse Ox 95 98 O2 Delivery Nasal Cannula Room Air Nasal Cannula O2 Flow Rate 1.00 Intake and Output 12/08/16 00:00 Intake Total 240 ml Output Total 600 ml Balance -360 ml Capillary Refill : Constitutional: No appears stated age, No AAO x 3, No apparent distress, No PERRL, No well-developed, No well-nourished, No other HEENT: No PERRL, No normal ENT inspection, No TMs normal, No pharynx normal, No scleral icterus (R), No scleral icterus (L), No pale conjunctivae (R), No pale conjunctivae (L), No photophobia, No TM abnormal (R), No TM abnormal (L), No pharyngeal erythema, No tonsillar exudate, No other, No discharge, No EOMI, No hearing is well preserved, No hard of hearing, No oral hygience is good, No ulceration, No xanthelasmas are seen Neck: No non-tender, No full range of motion, No supple, No normal inspection, No carotid bruit, No limited range of motion, No lymphadenopathy (R), No lymphadenopathy (L), No tender lateral, No tender midline, No thyromegaly, No other, No carotid pulses are 2 + bilaterally, No with good upstrokes Respiratory: wheezing Cardiovascular: regular rate-rhythm, tachycardia, S1 and S2 Gastrointestinal: No tender, No soft, No round, No distended, No pulsatile mass , No organomegaly, No guarding, No rebound, No tenderness, No hernia, No mass, No audible bowel sounds, No abnormal bowel sounds, No abdominal bruits, No spleenomegaly, No other Rectal: deferred Extremities: No normal range of motion, No non-tender, No normal inspection, No pedal edema, No calf tenderness, No normal capillary refill, No pelvis stable , No calf tenderness, No inflammation, No pedal edema, No slow capillary refill , No swelling, No other, No abrasion, No clubbing, No cyanosis, No ecchymosis, No laceration, No no lower extremity edema bilateral, No significant edema, No tenderness, No wound Neurologic/Psychiatric: No 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 tested, No no motor/sensory deficits, No alert, No normal mood/affect, No oriented x 3, No abnormal cerebellar tests, No abnormal warehouse delivery driver II-XII, No abnormal gait, No aphasia, No EOM palsy, No facial droop, No motor weakness, No sensory deficit, No depressed affect, No disoriented x 3, No other, No grossly intact, No power is 5/5 both on sides Data Review Labs Laboratory Tests 12/06/16 15:49: Hemoglobin 12.3, Hematocrit 38 12/06/16 20:30: Hemoglobin 11.1L, Hematocrit 32L, White Blood Count 17.8H, Red Blood Count 3.68L , Mean Corpuscular Volume 88, Mean Corpuscular Hemoglobin 30, Mean Corpuscular Hemoglobin Concent 34, Red Cell Distribution Width 15.1H, Platelet Count 167, Mean Platelet Volume 9.1, Neutrophils (%) (Auto) 84H, Lymphocytes (%) (Auto) 4L , Monocytes (%) (Auto) 12, Eosinophils (%) (Auto) 0, Basophils (%) (Auto) 0, Neutrophils # (Auto) 15.0H, Lymphocytes # (Auto) 0.7L, Monocytes # (Auto) 2.1H, Eosinophils # (Auto) 0.0, Basophils # (Auto) 0.0, Neutrophils % (Manual) 85, Lymphocytes % (Manual) 10, Monocytes % (Manual) 2, Eosinophils % (Manual) 0, Basophils % (Manual) 0, Band Neutrophils 3, Blood Morphology Comment NORMAL, Sodium Level 136, Potassium Level 4.3, Chloride Level 109H, Carbon Dioxide Level 22, Anion Gap 5, Blood Urea Nitrogen 15, Creatinine 0.64, Estimat Glomerular Filtration Rate > 60, BUN/Creatinine Ratio 23, Glucose Level 141H, Calcium Level 7.0L, Phosphorus Level 3.1, Magnesium Level 1.3L, Total Bilirubin 0.5, Aspartate Amino Transf (AST/SGOT) 22, Alanine Aminotransferase (ALT/SGPT) 18, Alkaline Phosphatase 37L, Total Protein 4.2L, Albumin 2.7L 12/07/16 05:10: Hemoglobin 10.0L, Hematocrit 30L, White Blood Count 16.3H, Red Blood Count 3.40L , Mean Corpuscular Volume 88, Mean Corpuscular Hemoglobin 29, Mean Corpuscular Hemoglobin Concent 33, Red Cell Distribution Width 15.4H, Platelet Count 157, Mean Platelet Volume 9.9, Sodium Level 135, Potassium Level 4.4, Chloride Level 107, Carbon Dioxide Level 19L, Anion Gap 9, Blood Urea Nitrogen 12, Creatinine 0.63, Estimat Glomerular Filtration Rate > 60, BUN/Creatinine Ratio 19, Glucose Level 150H, Calcium Level 7.1L, Phosphorus Level 2.6, Magnesium Level 2.5H, Total Bilirubin 0.3, Aspartate Amino Transf (AST/SGOT) 30, Alanine Aminotransferase (ALT/SGPT) 18, Alkaline Phosphatase 34L, Total Protein 4.9L, Albumin 3.0L, B-Type Natriuretic Peptide 116.6H ECG Impression ECG Initial ECG Rhythm: S.Tach A/P-Cardiology Assessment/Admission Diagnosis 1. shortness of breath, 2. Hypotension, 3. history of hypertension, 4. Hyperlipidemia Plan hypotension was likely secondary to volume deficit. Has improved significantly with blood transfusion and IV fluids. I will request an echocardiogram to rule out structural heart disease. Shortness of breath is likely due to COPD especially as the patient is having expiratory wheezing. Echocardiogram will be done. As the blood pressure improves, we will gradually restart her antihypertensives. Patient will continue statin therapy for hyperlipidemia. Thank you for your consultation. Please call me if you have any questions. Niko Khanna MD, FACP, FACC, FSCAI, FHRS, CCDS Interventional Cardiology Cardiac Electrophysiology Vascular Medicine and Endovascular Interventions Clinical Quality Measures DVT/VTE Risk/Contraindication: Risk Factor Score Per Nursin RFS Level Per Nursing on Admit: 4+=Very High Emy KHANNA MD Dec 07, 2016 2:58 pm
--- NOTE | 2016-12-07 15:08 | Anesthesia-General Post-Op ---
General Patient Condition Mental Status/LOC: Same as Preop Cardiovascular: Satisfactory Nausea/Vomiting: Absent Respiratory: Satisfactory Pain: Controlled Complications: Absent Post Op Complications Complications None Follow Up Care/Instructions Patient Instructions None needed. Anesthesia/Patient Condition Patient Condition Patient is doing well, C/O pain which is expected, stable vital signs, no apparent adverse anesthesia problems. PARVIZ ALLISON DO Dec 07, 2016 15:08
[2016-12-08] VITALS (23 sets, daily range): BP systolic 100–141; BP diastolic 46–86
[2016-12-08] MEDS: RT-ALBUTEROL/IPRATROPIUM 3 ML (DUONEB) VIAL INH SCH ×2 (02:14→07:12)
[2016-12-08] MEDS: NS IV 1000 ML 1,000 ML IV SCH (05:23)
[2016-12-08 05:31] LABS: BASOPHILS % (AUTO) 0 % (0-10); EOSINOPHILS % (AUTO) 0 % (0-10); LYMPHOCYTES # (AUTO) 1.5 X 10^3 (1.0-4.0); LYMPHOCYTES % (AUTO) 14 % (12-44); MEAN CORPUSCULAR HEMOGLOBIN 29 PG (25-34); MEAN CORPUSCULAR HGB CONC 33 G/DL (32-36); MEAN CORPUSCULAR VOLUME 89 FL (80-99); MEAN PLATELET VOLUME 9.1 FL (7.4-10.4); MONOCYTES # (AUTO) 1.8 X 10^3 (0.0-1.0); MONOCYTES % (AUTO) 17 % (0-12); NEUTROPHILS # (AUTO) 7.2 X 10^3 (1.8-7.8); NEUTROPHILS % (AUTO) 69 % (42-75); PLATELET COUNT 152 10^3/uL (130-400); RED BLOOD COUNT 2.67 10^6/uL (4.35-5.85); WHITE BLOOD COUNT 10.6 10^3/uL (4.3-11.0)
[2016-12-08 05:57] LABS: ALANINE AMINOTRANSFERASE 15 U/L (0-55); ALBUMIN 2.6 GM/DL (3.2-4.5); ANION GAP 6 MMOL/L (5-14); ASPARTATE AMINO TRANSFERASE 33 U/L (5-34); BILIRUBIN,TOTAL 0.5 MG/DL (0.1-1.0); BLOOD UREA NITROGEN 7 MG/DL (7-18); BUN/CREATININE RATIO 13; CALCIUM 7.2 MG/DL (8.5-10.1); CARBON DIOXIDE 20 MMOL/L (21-32); CHLORIDE 107 MMOL/L (98-107); CREATININE SERUM 0.53 MG/DL (0.60-1.30); GFR ESTIMATED > 60; GLUCOSE 130 MG/DL (70-105); MAGNESIUM 1.9 MG/DL (1.8-2.4); PHOSPHORUS 1.3 MG/DL (2.3-4.7); POTASSIUM 3.1 MMOL/L (3.6-5.0); SODIUM 133 MMOL/L (135-145); TOTAL PROTEIN 4.3 GM/DL (6.4-8.2)
[2016-12-08] MEDS: MAGNESIUM 1 GM/100 ML IVPB 100 ML IV SCH ×3 (06:04→15:24)
[2016-12-08] MEDS: KCL 20 MEQ TAB (K-DUR) PO SCH (06:04)
[2016-12-08] MEDS: POTASSIUM CL 10MEQ/50ML IVPB 50 ML IV SCH ×3 (06:04→12:55)
[2016-12-08] MEDS ORDERED: POTASSIUM CL 10MEQ/50ML IVPB 50 ML IV SCH (06:15)
[2016-12-08] MEDS ORDERED: POTASSIUM PHOSPHATE INJ 30 MM in NS (IVPB) 250 ML IV NR (07:07)
--- NOTE | 2016-12-08 07:08 | Pulmonary Progress Note ---
Subjective Time Seen by Provider: 07:19 Subjective/Events-last exam Pt is very wheezy has SOB worse with exertion. Exam Exam Vital Signs Date Time Temp Pulse Resp B/P (MAP) Pulse Ox O2 Delivery O2 Flow Rate FiO2 12/08/16 06:00 101 18 100/46 98 Nasal Cannula 2.00 12/08/16 05:00 105 20 100/46 97 Nasal Cannula 2.00 12/08/16 04:00 99.9 12/08/16 04:00 110 17 100/46 95 Nasal Cannula 2.00 12/08/16 04:00 98 Nasal Cannula 2.00 12/08/16 03:00 124 24 116/52 92 Nasal Cannula 2.00 12/08/16 02:14 97 Nasal Cannula 2.00 12/08/16 02:00 117 25 116/52 98 Nasal Cannula 2.00 12/08/16 01:00 111 18 108/50 96 Nasal Cannula 2.00 12/08/16 01:00 111 12/08/16 00:00 100.1 12/08/16 00:00 98 Nasal Cannula 2.00 12/08/16 00:00 100.1 113 18 110/46 97 Nasal Cannula 2.00 12/07/16 23:00 115 18 111/44 92 Nasal Cannula 2.00 12/07/16 22:00 121 23 128/51 95 Nasal Cannula 2.00 12/07/16 21:36 96 Nasal Cannula 2.00 12/07/16 21:00 121 21 143/71 95 Nasal Cannula 2.00 12/07/16 20:00 98 Nasal Cannula 2.00 12/07/16 20:00 100.0 Nasal Cannula 2.00 12/07/16 20:00 120 23 141/60 94 Nasal Cannula 3.00 12/07/16 19:00 112 12/07/16 19:00 112 20 141/54 96 Nasal Cannula 3.00 12/07/16 18:05 93 Nasal Cannula 2.00 12/07/16 18:00 105 19 128/49 95 Nasal Cannula 3.00 12/07/16 17:00 106 16 117/53 94 Nasal Cannula 3.00 12/07/16 16:00 107 13 119/59 97 Nasal Cannula 3.00 12/07/16 16:00 98 Nasal Cannula 1.00 12/07/16 15:26 95 Nasal Cannula 2.00 12/07/16 15:00 110 17 110/74 95 Nasal Cannula 3.00 12/07/16 14:00 102 17 113/58 97 Nasal Cannula 3.00 12/07/16 13:00 101 12/07/16 13:00 101 19 114/55 97 Nasal Cannula 3.00 12/07/16 12:00 104 16 121/52 93 Nasal Cannula 3.00 12/07/16 12:00 98 Nasal Cannula 1.00 12/07/16 11:00 101 17 123/54 93 Nasal Cannula 3.00 12/07/16 10:19 95 Room Air 12/07/16 10:00 100 19 134/54 94 Nasal Cannula 3.00 12/07/16 09:00 98 17 119/61 92 Nasal Cannula 3.00 12/07/16 08:00 94 19 120/58 92 Nasal Cannula 3.00 12/07/16 08:00 97.2 Nasal Cannula 12/07/16 08:00 94 Nasal Cannula 2.00 General Appearance: WD/WN, Chronically ill, Mild Distress, Other (pale) HEENT: PERRL/EOMI, Normal ENT Inspection, Pharynx Normal Neck: Full Range of Motion, Normal Inspection, Non Tender, Supple, Carotid Bruit Respiratory: Chest Non Tender, No Accessory Muscle Use, No Respiratory Distress , Crackles, Decreased Breath Sounds, Wheezing Cardiovascular: No Edema, No Gallop, No JVD, No Murmur, Normal Peripheral Pulses, Tachycardia Extremity: Normal Capillary Refill, Normal Inspection, Normal Range of Motion, Non Tender, No Calf Tenderness, No Pedal Edema Neurologic/Psychiatric: Alert, Oriented x3, No Motor/Sensory Deficits, Other ( poor comprehension) Skin: Normal Color, Warm/Dry Lymphatic: No Adenopathy Results Lab Laboratory Tests 12/06/16 13:30 12/06/16 15:49 12/06/16 20:30 12/07/16 05:10 12/08/16 05:19 Assessment/Plan Assessment/Plan s/p L3-S1 PSIF complicated by durotomy Acute blood loss secondary to surgery with hypotension -Will repeat H&H at 12pm -Pt will probably need 1 unit of PRBC -Will obtain PICC line now for anticipation of giving blood COPDAE with wheezing and probably pulmonary edema -Solumedrol 40 Q 6 -repeat 40mg of lasix x 1 -KVO IVF -SVNs -Monitor -IS Fever probably post surgical -HOld off on Abx -Will londono culture -Tylenol Atelectasis -IS Hypokalemia/hypophos -replace Hx of lung nodules being followed by my office as outpatient -Pt will need CT scan as out patient 233 Clinical Quality Measures DVT/VTE Risk/Contraindication: Risk Factor Score Per Nursin RFS Level Per Nursing on Admit: 4+=Very High FELICIA LOPEZ DO Dec 08, 2016 07:08
[2016-12-08] MEDS ORDERED: FUROSEMIDE 40 MG/4 ML INJ (LASIX) IVP NR (07:15)
[2016-12-08] MEDS ORDERED: ACETAMINOPHEN 500 MG TAB (TYLENOL) PO PRN (07:30)
--- NOTE | 2016-12-08 07:32 | Diagnostic Imaging Report ---
EXAM: CHEST 1 VIEW, AP/PA ONLY INDICATION: Cough. Congestion. Postop. COMPARISON: Chest radiograph 12/07/2016. FINDINGS: Low lung volumes with mild atelectasis or infiltrate in the lung bases. Normal heart size and pulmonary vascularity. Calcified aorta. No definite pleural effusion or pneumothorax. No acute osseous findings. IMPRESSION: Low lung volumes with mild atelectasis or infiltrate in the lung bases. Dictated by: Dictated on workstation # [id number]
--- NOTE | 2016-12-08 08:35 | Diagnostic Imaging Report ---
AP and lateral views of the lumbar spine. INDICATION: Post operative baseline exam. FINDINGS: There is anterior and posterior fusion hardware placed involving L3 to S1 levels. Satisfactory alignment appears to be present although L5-S1 posterior margins are not well seen on the lateral view. There is a mild compression fracture of L1 vertebral body, age indeterminate. Prominent disc degenerative change and disc height loss at L2-L3 level is seen. IMPRESSION: Post fusion changes involving L3 to S1 levels. Age-indeterminate compression fracture of L1. Dictated by: Dictated on workstation # [id number]
[2016-12-08] MEDS: FAMOTIDINE 20 MG (PEPCID) TABLET PO SCH ×2 (08:37→20:33)
[2016-12-08] MEDS: DOCUSATE SODIUM 100 MG (COLACE) CAP PO SCH ×2 (08:37→20:33)
[2016-12-08] MEDS: MULTIVIT W/MINERALS TAB (THERAGRAN M) PO SCH (08:37)
[2016-12-08] MEDS ORDERED: PATIENT MAY USE OWN MEDS, ALL MC SCH (08:45)
[2016-12-08] MEDS: oxyCODONE/APAP 5/325MG (PERCOCET 5) TABLET PO PRN ×3 (08:51→20:33)
--- NOTE | 2016-12-08 08:54 | Cardiology Progress Note ---
Subjective Date Seen by Provider: Dec 08, 2016 Time Seen by Provider: 08:49 Subjective/Events-last exam Patient is in bed, Complaining of shortness of breath, having back pain. No chest pain. No palpitation Review of Systems General: No Chills, No Night Sweats, No Fatigue, No Malaise, No Appetite, No Other HEENT: No Head Aches, No Visual Changes, No Eye Pain, No Ear Pain, No Dysphasia , No Sinus Congestion, No Post Nasal Drip, No Sore Throat, No Other Pulmonary: Dyspnea, No Cough, No Pleuritic Chest Pain, No Other Cardiovascular: No: Chest Pain, Palpitations, Orthopnea, Paroxysmal Noc. Dyspnea, Edema, Lt Headedness, Other Objective-Cardiology Exam Last Set of Vital Signs Vital Signs 12/08/16 12/08/16 12/08/16 06:00 07:00 07:17 Temp 98.8 Pulse 106 Resp 18 B/P (MAP) 100/46 Pulse Ox 98 O2 Delivery Nasal Cannula O2 Flow Rate 2.00 Capillary Refill : I&O Intake and Output 12/09/16 00:00 Intake Total 100 ml Output Total 625 ml Balance -525 ml Intake Oral 100 ml Output Urine Total 625 ml General: Alert, Oriented X3, Cooperative HEENT: Atraumatic, PERRLA Neck: Supple, No JVD, No Thyromegaly Lungs: Normal Air Movement, Other (rhonchi) Heart: Regular Rate, Normal S1, Normal S2, No Murmurs Abdomen: Normal Bowel Sounds, Soft, No Tenderness, No Hepatosplenomegaly, No Masses Extremities: No Clubbing, No Cyanosis, No Edema, Normal Pulses, No Tenderness/ Swelling Skin: No Rashes, No Breakdown, No Significant Lesion Neuro: Normal Speech, Normal Tone, Sensation Intact Psych/Mental Status: Mental Status NL, Mood NL Results Lab Laboratory Tests 12/08/16 05:19 A/P-Cardiology Admission Diagnosis Spinal stenosis Anemia Coronary artery disease Shortness of breath Hypotension Assessment/Plan Spinal Stenosis, S/p L3-S1 PSIF complicated by durotomy, surgery was done on December 07, 2016. Anemia, postoperatively, probably dilutional and blood loss, managed by primary care physician. Electrolyte imbalance, being corrected, planning to reevaluate electrolytes in the afternoon. Shortness of breath, has history of dyspnea on exertion, history of tobaccoism and COPD. Received large amount of fluid and in pain, chest x-ray showed possible atelectasis. Coronary artery disease, reporting cardiac catheterization done about 15 years ago and she was told that she has 60-65 doses, treated conservatively, stress test was done in September 2016 showing no ischemia or infarction with ejection fraction 84 percent, echocardiogram showed normal LV size and function with EF 50-55 percent, moderate MR, PA pressure 40 mmHg. Hypertension, currently hypotensive, receiving IV fluid. Continue to monitor Hyperlipidemia, monitor lipids Tobaccoism, still an active smoker, discussed smoking cessation. Strong family history of heart disease. Clinical Quality Measures DVT/VTE Risk/Contraindication: Risk Factor Score Per Nursin RFS Level Per Nursing on Admit: 4+=Very High ORTEGA SCHAEFFER MD Dec 08, 2016 08:54
--- NOTE | 2016-12-08 09:09 | Progress Note (SOAP) ---
Subjective Date Seen by Provider: Dec 08, 2016 Time Seen by Provider: 07:10 Subjective/Events-last exam Mrs Bee is POD #2 s/p L3-5 DLIF with L3-S1 laminecotmy and PSIF with incidental durotomy and repair. She c/o back pain with movement but denies headaches. She has still been hypotensive and hgb this am was 7.8. EICU has ordered repeat hbg for noon and Dr Lubin has evaluated the patient and ordered PICC line placement. Review of Systems General: No Chills, No Night Sweats HEENT: No Head Aches Pulmonary: Dyspnea Cardiovascular: No: Chest Pain, Palpitations Gastrointestinal: No: Nausea, Vomiting Musculoskeletal: back pain Neurological: No: Weakness, Numbness, Change in speech, Confusion Objective Exam Vital Signs Date Time Temp Pulse Resp B/P (MAP) Pulse Ox O2 Delivery O2 Flow Rate FiO2 12/08/16 08:00 97.6 101 23 118/65 96 Nasal Cannula 2.00 12/08/16 07:17 98 Nasal Cannula 2.00 12/08/16 07:00 106 12/08/16 06:00 101 18 100/46 98 Nasal Cannula 2.00 12/08/16 06:00 98.8 12/08/16 05:00 105 20 100/46 97 Nasal Cannula 2.00 12/08/16 04:00 99.9 12/08/16 04:00 110 17 100/46 95 Nasal Cannula 2.00 12/08/16 04:00 98 Nasal Cannula 2.00 12/08/16 03:00 124 24 116/52 92 Nasal Cannula 2.00 12/08/16 02:14 97 Nasal Cannula 2.00 12/08/16 02:00 117 25 116/52 98 Nasal Cannula 2.00 12/08/16 01:00 111 18 108/50 96 Nasal Cannula 2.00 12/08/16 01:00 111 12/08/16 00:00 100.1 12/08/16 00:00 98 Nasal Cannula 2.00 12/08/16 00:00 100.1 113 18 110/46 97 Nasal Cannula 2.00 12/07/16 23:00 115 18 111/44 92 Nasal Cannula 2.00 12/07/16 22:00 121 23 128/51 95 Nasal Cannula 2.00 12/07/16 21:36 96 Nasal Cannula 2.00 12/07/16 21:00 121 21 143/71 95 Nasal Cannula 2.00 12/07/16 20:00 98 Nasal Cannula 2.00 12/07/16 20:00 100.0 Nasal Cannula 2.00 12/07/16 20:00 120 23 141/60 94 Nasal Cannula 3.00 12/07/16 19:00 112 12/07/16 19:00 112 20 141/54 96 Nasal Cannula 3.00 12/07/16 18:05 93 Nasal Cannula 2.00 12/07/16 18:00 105 19 128/49 95 Nasal Cannula 3.00 12/07/16 17:00 106 16 117/53 94 Nasal Cannula 3.00 12/07/16 16:00 107 13 119/59 97 Nasal Cannula 3.00 12/07/16 16:00 98 Nasal Cannula 1.00 12/07/16 15:26 95 Nasal Cannula 2.00 12/07/16 15:00 110 17 110/74 95 Nasal Cannula 3.00 12/07/16 14:00 102 17 113/58 97 Nasal Cannula 3.00 12/07/16 13:00 101 12/07/16 13:00 101 19 114/55 97 Nasal Cannula 3.00 12/07/16 12:00 104 16 121/52 93 Nasal Cannula 3.00 12/07/16 12:00 98 Nasal Cannula 1.00 12/07/16 11:00 101 17 123/54 93 Nasal Cannula 3.00 12/07/16 10:19 95 Room Air 12/07/16 10:00 100 19 134/54 94 Nasal Cannula 3.00 Capillary Refill : General Appearance: Mild Distress Respiratory: No Accessory Muscle Use, No Respiratory Distress, Wheezing Extremity: Normal Inspection, Non Tender, No Calf Tenderness, No Pedal Edema Neurologic/Psychiatric: Oriented x3 Skin: Pallor Results Lab Laboratory Tests 12/08/16 05:19: White Blood Count 10.6, Red Blood Count 2.67L, Hemoglobin 7.8#L, Hematocrit 24L , Mean Corpuscular Volume 89, Mean Corpuscular Hemoglobin 29, Mean Corpuscular Hemoglobin Concent 33, Red Cell Distribution Width 15.0H, Platelet Count 152, Mean Platelet Volume 9.1, Neutrophils (%) (Auto) 69, Lymphocytes (%) (Auto) 14, Monocytes (%) (Auto) 17H, Eosinophils (%) (Auto) 0, Basophils (%) (Auto) 0, Neutrophils # (Auto) 7.2, Lymphocytes # (Auto) 1.5, Monocytes # (Auto) 1.8H, Eosinophils # (Auto) 0.0, Basophils # (Auto) 0.0, Sodium Level 133L, Potassium Level 3.1L, Chloride Level 107, Carbon Dioxide Level 20L, Anion Gap 6, Blood Urea Nitrogen 7, Creatinine 0.53L, Estimat Glomerular Filtration Rate > 60, BUN/ Creatinine Ratio 13, Glucose Level 130H, Calcium Level 7.2L, Phosphorus Level 1.3L, Magnesium Level 1.9, Total Bilirubin 0.5, Aspartate Amino Transf (AST/SGOT ) 33, Alanine Aminotransferase (ALT/SGPT) 15, Alkaline Phosphatase 42, Total Protein 4.3L, Albumin 2.6L 12/08/16 07:25: Lactic Acid Level 0.76 Assessment/Plan Assessment/Plan Assess & Plan/Chief Complaint POD #2 s/p lumbar fusion ABL anemia COPD Plan: HOB is elevated without sympotms of csf leak may OOB with PT continue medical care per Dr lubin and Dr Galvan PICC today per Dr Call and likely transfuse Clinical Quality Measures DVT/VTE Risk/Contraindication: Risk Factor Score Per Nursin RFS Level Per Nursing on Admit: 4+=Very High MEE HICKS Dec 08, 2016 09:09
[2016-12-08] MEDS: ALBUTEROL INHALER HFA (VENTOLIN HFA) 18 GM IH SCH ×4 (10:24→22:25)
[2016-12-08] MEDS: Glycopyrrolate/Formoterol Fum (Bevespi Aerosphere Inhaler) IH SCH ×2 (10:25→18:55)
--- NOTE | 2016-12-08 11:46 | Physical Therapy Evaluation ---
PT Evaluation-General Medical Diagnosis Admission Date Dec 06, 2016 at 07:45 Medical Diagnosis: spinal stenosis Onset Date: Dec 07, 2016 Therapy Diagnosis Therapy Diagnosis: weakness; abn gait Height/Weight Height (Feet): 5 Height (Inches): 1.00 Weight (Pounds): 153 Weight (Ounces): 0.0 Precautions Precautions/Isolations: Fall Prevention, Standard Precautions Referral Physician: quinton Reason for Referral: Evaluation/Treatment Medical History Pertinent Medical History: Arthritis, COPD, HTN Current History S/P PSIF L3-S1 with dura tear. Reviewed History: Yes Social History Home: Multilevel (Stays on one level) Current Living Status: Spouse Entry Into Home: Stairs With Railing Prior/Core FIM Prior Level of Function Functional [place] Measure 0=Not Assessed/NA 4=Minimal Assistance 1=Total Assistance 5=Supervision or Setup 2=Maximal Assistance 6=Modified [place] 3=Moderate Assistance 7=Complete [place] Pt reports prior to this surgery,s he was indep with all functional mobility. PT Evaluation-Current Subjective Agreeable to PT. Reports she feels weak. Pain Numeric Pain Scale: 4 Location: Posterior Pain Description: Ache (sore) Pt/Family Goals Home with spouse when able. Objective Patient Orientation: Person, Place, Time, Situation Problem Solving: Good Attachments: Oxygen, Drains, Gabriel Catheter, IV ROM/Strength ROM Lower Extremities WNL Strength Lower Extremities Grossly 4-/5 throughout Integumentary/Posture Integumentary Refer to nursing notes. Bowel Incontinence: No Bladder Incontinence: Gabriel Cath Posture Slight rounded shoulders. Neuromuscular (Tone, Coordination, Reflexes) intact Sensory Vision: Functional Hearing: Functional Hand Dominance: Right Sensation Right Lower Extremit: Intact Sensation Left Lower Extremity: Intact Transfers Functional [place] Measure 0=Not Assessed/NA 4=Minimal Assistance 1=Total Assistance 5=Supervision or Setup 2=Maximal Assistance 6=Modified [place] 3=Moderate Assistance 7=Complete [place] Transfers (B, C, W/C) (FIM): 2 Scootin Supine to/from Sit: 2 Sit to/from Stand: 4 Pt requires max assist for sup to from sit with heavy cues for sequencing and log roll technique. Needs assist with legs and to lift and lower her trunk. Pt is participatory but needs heavy asssit. Gait Mode of Locomotion: Walk Anticipated Mode of Locomotion: Walk Comments/Gait Description stood EOB only this visit and side stepped 3-4 steps with FWW with close CGA. Balance Sitting Static: Good Sitting Dynamic: Good Standing Static: Fair Standing Dynamic: Fair Treatment Standing; sitting eOB; deep breathing; transitional movement. Assessment/Needs Post lumbar surgery with decreased functional mobility and ability to care for herself. She will benefit from skilled PT intervnetion to work on functional strength and transfers to allow her to return home as before. She will require training on back precautions/care as well as safety with transfers and gait. Rehab Potential: Good PT Retirement Goals Retirement Goals PT Welding Manager Goals Time Frame: Dec 13, 2016 Transfers (B,C,W/C) (FIM): 4 Gait (FIM): 4 Gait distance (FIM): 3=150 ft Gait Assistive Device: FWW PT Plan Problem List Problem List: Activity Tolerance, Functional Strength, Safety, Gait, Transfer, Bed Mobility Treatment/Plan Treatment Plan: Continue Plan of Care Treatment Plan: Bed Mobility, Education, Functional Activity French, Functional Strength, Gait, Safety, Therapeutic Exercise, Transfers Treatment Duration: Dec 13, 2016 Frequency: 11 times per week Estimated Hrs Per Day: 1 hour per day Patient and/or Family Agrees t: Yes Safety Risks/Education Patient Education: Transfer Techniques Teaching Recipient: Patient Teaching Methods: Demonstration, Discussion Response to Teaching: Reinforcement Needed Discharge Recommendations Therapy D/C Recommendations: Acute Rehab Time/GCodes Time In: 930 Time Out: 1008 Total Billed Treatment Time: 38 Total Billed Treatment visit EVM 15 FA 23 MARICEL FERRIS PT Dec 08, 2016 11:46
--- NOTE | 2016-12-08 12:04 | Progress Note-Hospitalist ---
Progress Note HPI/CC on Admission CC: medical management following extensive lumbar spine surgery uncomplicated by Dr Hancock HPI: this is a 70-year-old white female clinic patient of Dr. Cancino in [facility] in [facility] the presents after an uncomplicated extensive lumbar spine surgery although she did have 1500 mL of blood loss and received 2 units of blood in OR but has since experienced hypotension upon arrival to floor necessitating transfer to ICU for hypovolumic hypotensive state in need of close monitoring and IVF boluses. Currently she is having difficulty mentating and having wheezing on exam so I placed emergent orders for ICU and contacted Dr Lubin regarding this case along with stat Neb treatment by RT. Pt states she is having back pain but otherwise she has no other issues although she feels weak. Upon my assessment she appears pale and slightly tachypneic although this is a subtle finding. Kam Ortega arrives in room and agrees with the plan for the transfer. 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 If Hgb is still low, pt will receive blood Pt will have a PICC line placed IV access is poor PT saw pt and she experienced SOB Patient Interview: Pt was informed that she did well with PT, but pt believed she did not and stated she used to be more active. BP and O2 look good and this was discussed Pt was informed that her labs will be rechecked at noon and if her Hgb is still low she will have more blood Physical exam stable. Wheezing noted. Pt confirmed having breathing treatments and using IS. Pt asked if the breathing treatments will be DC if she is on the "two puffers" No fever, vital signs stable, pleasant, oriented 3, pale but appears to be chronic now improved from 2 nights ago Regular rate and rhythm, wheezing all larsen and coarseness on auscultation No edema Laboratory Tests 12/08/16 05:19 12/08/16 12:03 Assessment: s/p post-op hypotension due to hypovolemia from 1500 mL of blood loss during surgery status post 2 units of packed red blood cell transfusion in OR but remained hypotensive necessitating transfer to the ICU 2 nights ago for IV fluid boluses of 5.5 liters but did not require pressor therapy COPD with current smoking and current wheezing on exam with mild tachypnea consulted Dr Lubin and placed on Nebs Evidence of mild volume overload with elevated BNP s/p one dose of Lasix this am by Dr Lubin and have consulted Dr Khanna as precaution Post op anemia due to acute blood loss and hgb repeat today after Lasix was 8.5 at noon today History of hypertension as out pt holding home meds GERD HLP Plan: Dr. Lubin's help is appreciated Dr. Khanna's help is appreciated Nebs treatments with DuoNeb Monitor closely Lab recheck 1200 noted PICC line for venous access PT/OT May need rehab Scribed by Mary Ramos under the direct supervision of Dr. Andres. MAGDALENE ANDRES DO Dec 08, 2016 12:04
[2016-12-08] MEDS: methylPREDNISolone 40 MG/ML (Solu-MEDROL) VIAL IV SCH ×2 (12:23→17:58)
[2016-12-08 12:26] LABS: MAGNESIUM 1.5 MG/DL (1.8-2.4); PHOSPHORUS 1.9 MG/DL (2.3-4.7); POTASSIUM 2.9 MMOL/L (3.6-5.0)
[2016-12-08] MEDS ORDERED: KCL 10 MEQ TAB (MICRO K) PO NR (13:30)
[2016-12-08 14:39] LABS: BILIRUBIN,URINE NEGATIVE (NEGATIVE); KETONES,URINE NEGATIVE (NEGATIVE); LEUKOCYTE ESTERASE ,URINE NEGATIVE (NEGATIVE); NITRITE,URINE NEGATIVE (NEGATIVE); PH,URINE 5 (5-9); PROTEIN,URINE NEGATIVE (NEGATIVE); UROBILINOGEN,URINE NORMAL (NORMAL)
[2016-12-08 14:49] LABS: HYALINE CASTS, URINE RARE /LPF
--- NOTE | 2016-12-08 15:59 | Physical Therapy Daily Note ---
PT Daily Note-Current Subjective Agrees to get up to the chair. Reports the back brace feels good and is helpful with getting up. Mental Status Patient Orientation: Person, Place, Time, Situation Transfers Functional [place] Measure 0=Not Assessed/NA 4=Minimal Assistance 1=Total Assistance 5=Supervision or Setup 2=Maximal Assistance 6=Modified [place] 3=Moderate Assistance 7=Complete IndependenceIRFPAI Quality Coding Scale 6 Independent with activity with or without an assistive device 5 Patient requires set up or clean up by helper. Patient completes activity by themselves 4 Supervision or touching assist (CGA). [place] provide cues , steadying assist 3 The helper provides less than half the effort to complete the activity 2 The helper provides more than half the effort to complete the activity 1 Dependent. The helper does all the effort to complete an activity 7 Patient refused to complete or attempt activity 9 The patient did not perform the activity before the current illness or injury 88 Not attempted due to Medical conditions or safety concerns Treatments Supine to sit EOB with max assist . Applied back brace. Sit to stand with min assist and used FWW to transfer bed to chair taking 4-5 steps. Pt up in chair with needs met post treatment. Assessment Current Status: Good Progress Did well with the transfer and pt experiences improved comfort with use of the brace. PT Prison Goals Boat Canvas Installer Goals PT Boat Canvas Installer Goals Time Frame: Dec 13, 2016 Transfers (B,C,W/C) (FIM): 4 Gait (FIM): 4 Gait distance (FIM): 3=150 ft Gait Assistive Device: FWW PT Plan Problem List Problem List: Activity Tolerance, Functional Strength Treatment/Plan Treatment Plan: Continue Plan of Care Treatment Plan: Bed Mobility, Education, Functional Activity French, Functional Strength, Gait, Safety, Therapeutic Exercise, Transfers Treatment Duration: Dec 13, 2016 Frequency: 11 times per week Estimated Hrs Per Day: 1 hour per day Patient and/or Family Agrees t: Yes Safety Risks/Education Patient Education: Transfer Techniques Teaching Recipient: Patient Teaching Methods: Demonstration, Discussion Response to Teaching: Reinforcement Needed Time/GCodes Time In: 1530 Time Out: 1553 Total Billed Treatment Time: 23 Total Billed Treatment visit FA 23 MARICEL FERRIS PT Dec 08, 2016 15:59
[2016-12-08] MEDS ORDERED: INFLUENZA TRIvalent 2017-2018 0.5 ML/45 MCG SYR IM ONE (17:45)
[2016-12-08 19:49] LABS: ANION GAP 7 MMOL/L (5-14); BLOOD UREA NITROGEN 6 MG/DL (7-18); BUN/CREATININE RATIO 11; CALCIUM 7.7 MG/DL (8.5-10.1); CARBON DIOXIDE 24 MMOL/L (21-32); CHLORIDE 102 MMOL/L (98-107); CREATININE SERUM 0.53 MG/DL (0.60-1.30); GFR ESTIMATED > 60; GLUCOSE 154 MG/DL (70-105); MAGNESIUM 2.3 MG/DL (1.8-2.4); PHOSPHORUS 1.3 MG/DL (2.3-4.7); POTASSIUM 3.7 MMOL/L (3.6-5.0); SODIUM 133 MMOL/L (135-145)
[2016-12-08] MEDS ORDERED: SODIUM PHOSPHATE INJ 30 MM in NS (IVPB) 250 ML IV ONE (21:00)
[2016-12-08] MEDS ORDERED: POT PHOS/NA PHOS (K-PHOS NEUTRAL) ONE (21:06)
[2016-12-08] MEDS ORDERED: POT PHOS/NA PHOS (K-PHOS NEUTRAL) PO ONE (21:30)
[2016-12-09] VITALS (24 sets, daily range): BP systolic 131–164; BP diastolic 48–83
[2016-12-09] MEDS: methylPREDNISolone 40 MG/ML (Solu-MEDROL) VIAL IV SCH ×5 (00:02→23:17)
[2016-12-09] MEDS: oxyCODONE/APAP 5/325MG (PERCOCET 5) TABLET PO PRN ×5 (01:11→22:53)
[2016-12-09] MEDS: ALBUTEROL INHALER HFA (VENTOLIN HFA) 18 GM IH SCH ×6 (02:12→22:52)
[2016-12-09 05:01] LABS: BASOPHILS % (AUTO) 0 % (0-10); EOSINOPHILS % (AUTO) 0 % (0-10); LYMPHOCYTES # (AUTO) 0.5 X 10^3 (1.0-4.0); LYMPHOCYTES % (AUTO) 5 % (12-44); MEAN CORPUSCULAR HEMOGLOBIN 30 PG (25-34); MEAN CORPUSCULAR HGB CONC 33 G/DL (32-36); MEAN CORPUSCULAR VOLUME 89 FL (80-99); MEAN PLATELET VOLUME 9.1 FL (7.4-10.4); MONOCYTES # (AUTO) 0.6 X 10^3 (0.0-1.0); MONOCYTES % (AUTO) 6 % (0-12); NEUTROPHILS # (AUTO) 8.3 X 10^3 (1.8-7.8); NEUTROPHILS % (AUTO) 89 % (42-75); PLATELET COUNT 162 10^3/uL (130-400); RED BLOOD COUNT 2.74 10^6/uL (4.35-5.85); RED CELL DISTRIBUTION WIDTH 14.3 % (10.0-14.5); WHITE BLOOD COUNT 9.4 10^3/uL (4.3-11.0)
[2016-12-09 05:17] LABS: BAND NEUTROPHILS 0 %; BASOPHILS % (MANUAL) 0 %; EOSINOPHILS % (MANUAL) 0 %; HYPOCHROMASIA SLIGHT; LYMPHOCYTES % (MANUAL) 5 %; NEUTROPHILS % (MANUAL) 92 %; POLYCHROMASIA SLIGHT
[2016-12-09 05:19] LABS: ANION GAP 7 MMOL/L (5-14); BLOOD UREA NITROGEN 5 MG/DL (7-18); BUN/CREATININE RATIO 10; CALCIUM 7.9 MG/DL (8.5-10.1); CARBON DIOXIDE 24 MMOL/L (21-32); CHLORIDE 103 MMOL/L (98-107); CREATININE SERUM 0.48 MG/DL (0.60-1.30); GFR ESTIMATED > 60; GLUCOSE 141 MG/DL (70-105); PHOSPHORUS 1.9 MG/DL (2.3-4.7); POTASSIUM 3.7 MMOL/L (3.6-5.0); SODIUM 134 MMOL/L (135-145)
[2016-12-09] MEDS: POTASSIUM CL 10MEQ/50ML IVPB 50 ML IV SCH (05:27)
[2016-12-09] MEDS: MAGNESIUM 1 GM/100 ML IVPB 100 ML IV SCH (05:28)
[2016-12-09] MEDS: KCL 20 MEQ TAB (K-DUR) PO SCH (05:28)
[2016-12-09] MEDS: Glycopyrrolate/Formoterol Fum (Bevespi Aerosphere Inhaler) IH SCH ×2 (06:00→18:41)
[2016-12-09] MEDS: NS IV 1000 ML 1,000 ML IV SCH (06:36)
--- NOTE | 2016-12-09 07:32 | Diagnostic Imaging Report ---
INDICATION: Postop. Cough. COMPARISON: 12/08/2016. FINDINGS: Single frontal radiata view the chest was obtained and and demonstrate slight interval progression of alveolar consolidation with surrounding interstitial infiltrates in the right mid and lower lung field, laterally. Lungs are otherwise hyperinflated. Small effusions cannot be excluded. There is no pneumothorax. Cardiac silhouette and pulmonary vasculature within normal limits. Bony structures show no gross acute abnormalities. IMPRESSION: 1. Interval progression of airspace disease within the right mid and lower lung field concerning for pneumonia. Continued followup is recommended. 2. Small bibasilar effusions are suspected. Dictated by: Dictated on workstation # [id number]
--- NOTE | 2016-12-09 07:42 | Cardiology Progress Note ---
Subjective Date Seen by Provider: Dec 09, 2016 Time Seen by Provider: 07:40 Subjective/Events-last exam patient is laying down in bed, still having shortness of breath and back pain. Actively wheezing. No chest pain Review of Systems General: No Chills, No Night Sweats, No Fatigue, No Malaise, No Appetite, No Other HEENT: No Head Aches, No Visual Changes, No Eye Pain, No Ear Pain, No Dysphasia , No Sinus Congestion, No Post Nasal Drip, No Sore Throat, No Other Pulmonary: Dyspnea, Cough, No Pleuritic Chest Pain, No Other Cardiovascular: No: Chest Pain, Palpitations, Orthopnea, Paroxysmal Noc. Dyspnea, Edema, Lt Headedness, Other Objective-Cardiology Exam Last Set of Vital Signs Vital Signs 12/09/16 12/09/16 12/09/16 04:00 06:00 06:02 Temp 97.5 Pulse 92 Resp 24 B/P (MAP) 159/79 Pulse Ox 97 O2 Delivery Nasal Cannula O2 Flow Rate 10.00 Capillary Refill : I&O Intake and Output 12/10/16 00:00 Intake Total 100 ml Output Total 830 ml Balance -730 ml Intake Oral 100 ml Output Urine Total 700 ml Drainage Total 130 ml General: Alert, Oriented X3, Cooperative HEENT: Atraumatic, PERRLA Neck: Supple, No JVD, No Thyromegaly Lungs: Normal Air Movement, Other (bilateral wheezing) Heart: Regular Rate, Normal S1, Normal S2, No Murmurs Abdomen: Normal Bowel Sounds, Soft, No Tenderness, No Hepatosplenomegaly, No Masses Extremities: No Clubbing, No Cyanosis, No Edema, Normal Pulses, No Tenderness/ Swelling Skin: No Rashes, No Breakdown, No Significant Lesion Neuro: Normal Speech, Normal Tone, Sensation Intact Psych/Mental Status: Mental Status NL, Mood NL Results Lab Laboratory Tests 12/08/16 12:03 12/08/16 19:20 12/08/16 23:55 12/09/16 04:55 A/P-Cardiology Admission Diagnosis Spinal stenosis Anemia Coronary artery disease Shortness of breath Hypotension Assessment/Plan Spinal Stenosis, S/p L3-S1 PSIF complicated by durotomy, surgery was done on December 07, 2016reviewed recovering slowly Anemia, postoperatively, probably dilutional and blood loss, managed by primary care physician. Shortness of breath, has history of dyspnea on exertion, history of tobaccoism and COPD. actively wheezing at this time, discussed with Dr. Lubin. Need additional bronchodilator treatment now. Coronary artery disease, reporting cardiac catheterization done about 15 years ago and she was told that she has 60-65 doses, treated conservatively, stress test was done in September 2016 showing no ischemia or infarction with ejection fraction 84 percent, echocardiogram showed normal LV size and function with EF 50-55 percent, moderate MR, PA pressure 40 mmHg. Hypertension, good control, continue to monitor blood pressure Hyperlipidemia, monitor lipids Tobaccoism, still an active smoker, discussed smoking cessation. Strong family history of heart disease. Clinical Quality Measures DVT/VTE Risk/Contraindication: Risk Factor Score Per Nursin RFS Level Per Nursing on Admit: 4+=Very High ORTEGA SCHAEFFER MD Dec 09, 2016 07:42
--- NOTE | 2016-12-09 08:07 | Pulmonary Progress Note ---
Subjective Time Seen by Provider: 08:23 Subjective/Events-last exam No fever, no productive cough, SOB is improved. Exam Exam Vital Signs Date Time Temp Pulse Resp B/P (MAP) Pulse Ox O2 Delivery O2 Flow Rate FiO2 12/09/16 07:00 88 12/09/16 06:02 97 Nasal Cannula 10.00 12/09/16 06:00 92 24 159/79 96 High Flow N/C 10.00 12/09/16 05:00 96 17 157/79 90 High Flow N/C 10.00 12/09/16 04:00 90 11 151/74 97 High Flow N/C 10.00 12/09/16 04:00 94 High Flow N/C 10.00 12/09/16 04:00 97.5 12/09/16 03:00 90 12 155/77 95 High Flow N/C 10.00 12/09/16 02:12 96 High Flow N/C 10.00 12/09/16 02:00 92 15 147/73 95 High Flow N/C 10.00 12/09/16 01:00 90 12/09/16 01:00 90 13 139/71 97 High Flow N/C 10.00 12/09/16 00:00 98 High Flow N/C 10.00 12/09/16 00:00 92 17 136/67 95 High Flow N/C 10.00 12/09/16 00:00 97.9 12/08/16 23:00 92 14 132/67 96 High Flow N/C 10.00 12/08/16 22:25 96 High Flow N/C 10.00 12/08/16 22:00 93 14 133/69 96 High Flow N/C 10.00 12/08/16 21:00 98 141/72 97 High Flow N/C 10.00 12/08/16 20:10 97 High Flow N/C 10.00 12/08/16 20:00 98 23 129/60 97 High Flow N/C 10.00 12/08/16 19:00 98 22 129/71 93 High Flow N/C 10.00 12/08/16 19:00 99 12/08/16 18:55 93 High Flow N/C 10.00 12/08/16 18:00 103 20 123/59 95 High Flow N/C 10.00 12/08/16 17:00 99 19 134/67 94 High Flow N/C 10.00 12/08/16 16:00 98.1 12/08/16 16:00 99 15 126/72 92 High Flow N/C 10.00 12/08/16 16:00 98 High Flow N/C 10.00 12/08/16 15:00 98 15 123/57 85 Nasal Cannula 2.00 12/08/16 14:29 90 Nasal Cannula 5.00 12/08/16 14:00 102 22 129/86 Nasal Cannula 2.00 12/08/16 13:00 100 12/08/16 13:00 100 16 116/59 Nasal Cannula 2.00 12/08/16 12:23 99.6 105 20 119/56 95 Nasal Cannula 2.00 12/08/16 12:00 98 Nasal Cannula 2.00 12/08/16 11:00 101 14 124/64 93 Nasal Cannula 2.00 12/08/16 10:28 94 Nasal Cannula 2.00 12/08/16 10:25 94 Nasal Cannula 2.00 12/08/16 10:00 112 22 113/60 96 Nasal Cannula 2.00 12/08/16 09:00 112 27 118/65 93 Nasal Cannula 2.00 General Appearance: Mild Distress HEENT: PERRL/EOMI, Normal ENT Inspection, Pharynx Normal Neck: Full Range of Motion, Normal Inspection, Non Tender, Supple, Carotid Bruit Respiratory: No Accessory Muscle Use, No Respiratory Distress, Wheezing Cardiovascular: No Edema, No Gallop, No JVD, No Murmur, Normal Peripheral Pulses, Tachycardia Extremity: Normal Inspection, Non Tender, No Calf Tenderness, No Pedal Edema Neurologic/Psychiatric: Oriented x3 Skin: Pallor Lymphatic: No Adenopathy Results Lab Laboratory Tests 12/08/16 05:19 12/08/16 12:03 12/08/16 19:20 12/08/16 23:55 12/09/16 04:55 Assessment/Plan Assessment/Plan s/p L3-S1 PSIF complicated by durotomy Acute blood loss secondary to surgery with hypotension -Will repeat H&H at 12pm -Will obtain PICC line now for anticipation of giving blood COPDAE with wheezing and probably pulmonary edema -Solumedrol 40 Q 6 -KVO IVF -SVNs -Monitor -IS CXR shows worse atelectasis, pleural effusion and ? PNA -No clinical signs of pneumonia, no leukocytosis, productive cough, or fever -CHeck BNP, repeat lasix, and hold off on Abx Fever probably post surgical -HOld off on Abx -Will londono culture -Tylenol Atelectasis -IS Hypokalemia/hypophos -replace Hx of lung nodules being followed by my office as outpatient -Pt will need CT scan as out patient 233 Clinical Quality Measures DVT/VTE Risk/Contraindication: Risk Factor Score Per Nursin RFS Level Per Nursing on Admit: 4+=Very High FELICIA LOPEZ DO Dec 09, 2016 08:07
[2016-12-09] MEDS: MULTIVIT W/MINERALS TAB (THERAGRAN M) PO SCH (08:24)
[2016-12-09] MEDS: FAMOTIDINE 20 MG (PEPCID) TABLET PO SCH ×2 (08:24→20:08)
[2016-12-09] MEDS: DOCUSATE SODIUM 100 MG (COLACE) CAP PO SCH ×2 (08:24→20:08)
[2016-12-09] MEDS ORDERED: FUROSEMIDE 40 MG/4 ML INJ (LASIX) IVP NR (08:30)
--- NOTE | 2016-12-09 10:17 | Physical Therapy Daily Note ---
PT Daily Note-Current Subjective Patient is very agreeable to participate with PT. Pain Numeric Pain Scale: 8 Location: Lower Pain Description: Acute Appearance slight edema total body Mental Status Patient Orientation: Normal For Age Attachments: Oxygen (10L HF), Gabriel Catheter, IV Transfers Functional [place] Measure 0=Not Assessed/NA 4=Minimal Assistance 1=Total Assistance 5=Supervision or Setup 2=Maximal Assistance 6=Modified [place] 3=Moderate Assistance 7=Complete IndependenceIRFPAI Quality Coding Scale 6 Independent with activity with or without an assistive device 5 Patient requires set up or clean up by helper. Patient completes activity by themselves 4 Supervision or touching assist (CGA). [place] provide cues , steadying assist 3 The helper provides less than half the effort to complete the activity 2 The helper provides more than half the effort to complete the activity 1 Dependent. The helper does all the effort to complete an activity 7 Patient refused to complete or attempt activity 9 The patient did not perform the activity before the current illness or injury 88 Not attempted due to Medical conditions or safety concerns Transfers (B, C, W/C) (FIM): 3 Scootin Supine to/from Sit: 3 Sit to/from Stand: 3 Bed to/from Chair: 3 Gait Training Gait (FIM): 1 Distance (FIM): 1=up to 49 ft Distance: 5' Gait Level of Assist: 3 Gait Persons Needed: 1 Gait Assistive Device: FWW slow, shuffle gait sequence Exercises Supine Ex: Ankle pumps, Quad Set Supine Reps: 15 Seated Therapy Exercises: Ankle pumps, Long arc quads Assessment Current Status: Excellent Progress Patient is much improved with gross motor skills this a.m. PT will continue to increase the intensity of activity as patient tolerates. PT Half-Way Goals Supervisor Car [employer] Yard Goals PT Supervisor Car And Yard Goals Time Frame: Dec 13, 2016 Transfers (B,C,W/C) (FIM): 4 Gait (FIM): 4 Gait distance (FIM): 3=150 ft Gait Assistive Device: FWW PT Plan Treatment/Plan Treatment Plan: Continue Plan of Care Treatment Plan: Bed Mobility, Education, Functional Activity French, Functional Strength, Gait, Safety, Therapeutic Exercise, Transfers Treatment Duration: Dec 13, 2016 Frequency: 11 times per week Estimated Hrs Per Day: 1 hour per day Patient and/or Family Agrees t: Yes Time/GCodes Time In: 935 Time Out: 948 Total Billed Treatment Time: 13 Total Billed Treatment 1 visit FA 13 min RAMAKRISHNA ALEXANDER PT Dec 09, 2016 10:17
--- NOTE | 2016-12-09 10:55 | Progress Note-Hospitalist ---
Progress Note HPI/CC on Admission CC: medical management following extensive lumbar spine surgery uncomplicated by Dr Hancock HPI: this is a 70-year-old white female clinic patient of Dr. Cancino in [facility] in [facility] the presents after an uncomplicated extensive lumbar spine surgery although she did have 1500 mL of blood loss and received 2 units of blood in OR but has since experienced hypotension upon arrival to floor necessitating transfer to ICU for hypovolumic hypotensive state in need of close monitoring and IVF boluses. Currently she is having difficulty mentating and having wheezing on exam so I placed emergent orders for ICU and contacted Dr Lubin regarding this case along with stat Neb treatment by RT. Pt states she is having back pain but otherwise she has no other issues although she feels weak. Upon my assessment she appears pale and slightly tachypneic although this is a subtle finding. Kam Ortega arrives in room and agrees with the plan for the transfer. Progress Notes/Assess & Plan Date Seen 12/09/16 Time Seen by Provider: 11:00 Admission Dx/Process Assessment: Hypotension due to hypovolemia from 1500 mL of blood loss during surgery status post 2 units of packed red blood cell transfusion but remains hypotensive needing transferred to the ICU for IV fluid boluses and possible pressor therapy COPD with current smoking and current wheezing on exam with mild tachypnea History of hypertension GERD HLP Diagonsis/Assessment & Plan Chart Review: Hgb 8.1 CMP normal except BNP more elevated at 272 Patient Interview: Pt states she is experiencing some pain still, but the brace around her abdomen is helping Pt denies having BMs but confirms flatulence. Pt confirms taking stool softeners and laxatives regularly at home Physical exam stable. Lungs sound better. Pt asked when she will transfer to 4th floor, this will most likely be tomorrow. Pt was curious as to how long her recovery will take and this was discussed. No fever, vital signs stable, pleasant, oriented 3, pale but appears to be chronic now improved from 3 nights ago, sitting in chair with brace Regular rate and rhythm, wheezing all larsen are much improved and resolved coarseness on auscultation No edema Laboratory Tests 12/08/16 12:03 12/08/16 19:20 12/08/16 23:55 12/09/16 04:55 Assessment: s/p post-op hypotension due to hypovolemia from 1500 mL of blood loss during surgery status post 2 units of packed red blood cell transfusion in OR but remained hypotensive necessitating transfer to the ICU 3 nights ago for IV fluid boluses of 5.5 liters but did not require pressor therapy COPD with current smoking and wheezing on exam on admit with mild tachypnea consulted Dr Lubin and placed on Nebs but now doing much better Evidence of mild volume overload with elevated BNP s/p Lasix by Dr Lubin and have consulted Dr Khanna as precaution Post op anemia due to acute blood loss History of hypertension as out pt holding home meds GERD HLP Plan: Dr. Lubin's help is appreciated Dr. Khanna's help is appreciated Nebs treatments with DuoNeb Monitor closely PICC line for venous access PT/OT In-pt rehab? Scribed by Mary Ramos under the direct supervision of Dr. Andres. MAGDALENE ANDRES DO Dec 09, 2016 10:55
--- NOTE | 2016-12-09 13:06 | Physical Therapy Daily Note ---
PT Daily Note-Current Subjective Patient is in bed and agrees to PT. Patient reports she wants to begin eating "food" instead of liquid diet. RN notified. Pain Numeric Pain Scale: 8 Location: Lower Location Body Site: Back Pain Description: Pressure, Acute Mental Status Patient Orientation: Normal For Age Attachments: Oxygen, Gabriel Catheter Transfers Functional [place] Measure 0=Not Assessed/NA 4=Minimal Assistance 1=Total Assistance 5=Supervision or Setup 2=Maximal Assistance 6=Modified [place] 3=Moderate Assistance 7=Complete IndependenceIRFPAI Quality Coding Scale 6 Independent with activity with or without an assistive device 5 Patient requires set up or clean up by helper. Patient completes activity by themselves 4 Supervision or touching assist (CGA). [place] provide cues , steadying assist 3 The helper provides less than half the effort to complete the activity 2 The helper provides more than half the effort to complete the activity 1 Dependent. The helper does all the effort to complete an activity 7 Patient refused to complete or attempt activity 9 The patient did not perform the activity before the current illness or injury 88 Not attempted due to Medical conditions or safety concerns Transfers (B, C, W/C) (FIM): 2 Scootin Rollin Supine to/from Sit: 2 Sit to/from Stand: 3 Gait Training Gait (FIM): 1 Distance (FIM): 1=up to 49 ft Distance: 5' x 3 Gait Level of Assist: 4 Gait Persons Needed: 1 Gait Assistive Device: FWW side stepping left and right with steady sequence and close CGA for safety Assessment Patient is very fatigued on this date. She is improving slowly. Required dependent assist to dave back brace. PT Camp Head Counselor Goals Fdc Goals PT Camp Head Counselor Goals Time Frame: Dec 13, 2016 Transfers (B,C,W/C) (FIM): 4 Gait (FIM): 4 Gait distance (FIM): 3=150 ft Gait Assistive Device: FWW PT Plan Treatment/Plan Treatment Plan: Continue Plan of Care Treatment Plan: Bed Mobility, Education, Functional Activity French, Functional Strength, Gait, Safety, Therapeutic Exercise, Transfers Treatment Duration: Dec 13, 2016 Frequency: 11 times per week Estimated Hrs Per Day: 1 hour per day Patient and/or Family Agrees t: Yes Time/GCodes Time In: 1140 Time Out: 1150 Total Billed Treatment Time: 10 Total Billed Treatment 1 visit FA 10 min RAMAKRISHNA ALEXANDER PT Dec 09, 2016 13:06
[2016-12-09] MEDS: morphine INJ 4 MG/ML 1 ML (VIAL/SYRINGE) IVP PRN (14:11)
--- NOTE | 2016-12-09 18:11 | Progress Note (SOAP) ---
Subjective Date Seen by Provider: Dec 09, 2016 Time Seen by Provider: 07:10 Subjective/Events-last exam Mrs Bee is POD #3 s/p L2-5 DLIF with L2-S1 laminectomy and PSIF with incidental durotomy and repair. She is sitting in bed requiring O2. She has no complaints while still but has back pain with movement. SHe denies LE pain or headaches. Her nurse reports they have had to change her lumbar dressing multiple times for clear drainage, although she appears to be asymptomatic of CSF leak. We discussed laying flat but the patient can't tolerate this at the moment. Review of Systems General: No Chills, No Night Sweats Pulmonary: Dyspnea Cardiovascular: No: Chest Pain, Palpitations Gastrointestinal: No: Nausea, Vomiting Musculoskeletal: back pain Neurological: No: Weakness, Numbness, Change in speech, Confusion Objective Exam Vital Signs Date Time Temp Pulse Resp B/P (MAP) Pulse Ox O2 Delivery O2 Flow Rate FiO2 12/09/16 16:00 89 13 152/78 96 High Flow N/C 10.00 12/09/16 16:00 94 High Flow N/C 10.00 12/09/16 15:00 90 16 153/73 93 High Flow N/C 10.00 12/09/16 14:00 95 19 157/74 93 High Flow N/C 10.00 12/09/16 13:57 99 Nasal Cannula 8.00 12/09/16 13:00 96 17 150/74 96 High Flow N/C 10.00 12/09/16 13:00 94 12/09/16 12:09 94 High Flow N/C 10.00 12/09/16 12:02 98.0 12/09/16 12:00 95 26 150/69 95 High Flow N/C 10.00 12/09/16 11:00 99 20 145/48 94 High Flow N/C 10.00 12/09/16 10:34 94 Nasal Cannula 8.00 12/09/16 10:00 99 20 156/80 94 High Flow N/C 10.00 12/09/16 09:00 96 12 153/71 98 High Flow N/C 10.00 12/09/16 08:05 94 High Flow N/C 10.00 12/09/16 08:00 97.1 12/09/16 08:00 91 19 164/82 95 High Flow N/C 10.00 12/09/16 07:00 88 12/09/16 07:00 88 13 158/79 96 High Flow N/C 10.00 12/09/16 06:02 97 Nasal Cannula 10.00 12/09/16 06:00 92 24 159/79 96 High Flow N/C 10.00 12/09/16 05:00 96 17 157/79 90 High Flow N/C 10.00 12/09/16 04:00 90 11 151/74 97 High Flow N/C 10.00 12/09/16 04:00 94 High Flow N/C 10.00 12/09/16 04:00 97.5 12/09/16 03:00 90 12 155/77 95 High Flow N/C 10.00 12/09/16 02:12 96 High Flow N/C 10.00 12/09/16 02:00 92 15 147/73 95 High Flow N/C 10.00 12/09/16 01:00 90 12/09/16 01:00 90 13 139/71 97 High Flow N/C 10.00 12/09/16 00:00 98 High Flow N/C 10.00 12/09/16 00:00 92 17 136/67 95 High Flow N/C 10.00 12/09/16 00:00 97.9 12/08/16 23:00 92 14 132/67 96 High Flow N/C 10.00 12/08/16 22:25 96 High Flow N/C 10.00 12/08/16 22:00 93 14 133/69 96 High Flow N/C 10.00 12/08/16 21:00 98 141/72 97 High Flow N/C 10.00 12/08/16 20:10 97 High Flow N/C 10.00 12/08/16 20:00 98 23 129/60 97 High Flow N/C 10.00 12/08/16 19:00 98 22 129/71 93 High Flow N/C 10.00 12/08/16 19:00 99 12/08/16 18:55 93 High Flow N/C 10.00 I & O 12/10/16 07:00 Intake Total 1960 ml Output Total 2500 ml Balance -540 ml Capillary Refill : General Appearance: Mild Distress Respiratory: Other (tachypnea) Cardiovascular: Tachycardia Gastrointestinal: soft Extremity: No Pedal Edema Neurologic/Psychiatric: Alert, Oriented x3, No Motor/Sensory Deficits Skin: Normal Color, Pallor Results Lab Laboratory Tests 12/08/16 19:20: Hemoglobin 8.3L, Hematocrit 25L, Sodium Level 133L, Potassium Level 3.7, Chloride Level 102, Carbon Dioxide Level 24, Anion Gap 7, Blood Urea Nitrogen 6L , Creatinine 0.53L, Estimat Glomerular Filtration Rate > 60, BUN/Creatinine Ratio 11, Glucose Level 154H, Calcium Level 7.7L, Phosphorus Level 1.3L, Magnesium Level 2.3 12/08/16 23:55: Hemoglobin 8.0L, Hematocrit 24L 12/09/16 04:55: Hemoglobin 8.1L, Hematocrit 24L, Sodium Level 134L, Potassium Level 3.7, Chloride Level 103, Carbon Dioxide Level 24, Anion Gap 7, Blood Urea Nitrogen 5L , Creatinine 0.48L, Estimat Glomerular Filtration Rate > 60, BUN/Creatinine Ratio 10, Glucose Level 141H, Calcium Level 7.9L, Phosphorus Level 1.9L, Magnesium Level 2.0, White Blood Count 9.4, Red Blood Count 2.74L, Mean Corpuscular Volume 89, Mean Corpuscular Hemoglobin 30, Mean Corpuscular Hemoglobin Concent 33, Red Cell Distribution Width 14.3, Platelet Count 162, Mean Platelet Volume 9.1, Neutrophils (%) (Auto) 89H, Lymphocytes (%) (Auto) 5L , Monocytes (%) (Auto) 6, Eosinophils (%) (Auto) 0, Basophils (%) (Auto) 0, Neutrophils # (Auto) 8.3H, Lymphocytes # (Auto) 0.5L, Monocytes # (Auto) 0.6, Eosinophils # (Auto) 0.0, Basophils # (Auto) 0.0, Neutrophils % (Manual) 92, Lymphocytes % (Manual) 5, Monocytes % (Manual) 3, Eosinophils % (Manual) 0, Basophils % (Manual) 0, Band Neutrophils 0, Smudge Cells SLIGHT, Polychromasia SLIGHT, Hypochromasia SLIGHT, Elliptocytes SLIGHT, B-Type Natriuretic Peptide 272.1H 12/09/16 11:03: Lab Scanned Report Transfusion Reaction Form 12/09/16 12:54: Hemoglobin 8.4L, Hematocrit 25L Microbiology 12/08/16 Blood Culture - Preliminary, Resulted No growth Assessment/Plan Assessment/Plan Assess & Plan/Chief Complaint POD #3 s/p lumbar fusion ABL anemia, hbg improved to 8.1 COPD - requring O2, sat on O2 98% Plan: HOB is elevated without sympotms of csf leak but copious drainage concerning for this, will monitor d/c drain HOB flat if patient can tolerate continue medical care per Dr tillman and Dr Galvan Clinical Quality Measures DVT/VTE Risk/Contraindication: Risk Factor Score Per Nursin RFS Level Per Nursing on Admit: 4+=Very High MEE HICKS Dec 09, 2016 18:11
[2016-12-10] VITALS (14 sets, daily range): BP systolic 16–167; BP diastolic 65–89
[2016-12-10] MEDS: ALPRAZolam 0.25 MG (XANAX) TAB PO PRN ×2 (01:37→20:37)
[2016-12-10] MEDS: ALBUTEROL INHALER HFA (VENTOLIN HFA) 18 GM IH SCH ×6 (02:56→22:18)
[2016-12-10 05:07] LABS: BASOPHILS % (AUTO) 0 % (0-10); EOSINOPHILS % (AUTO) 0 % (0-10); LYMPHOCYTES # (AUTO) 0.5 X 10^3 (1.0-4.0); LYMPHOCYTES % (AUTO) 5 % (12-44); MEAN CORPUSCULAR HEMOGLOBIN 30 PG (25-34); MEAN CORPUSCULAR HGB CONC 34 G/DL (32-36); MEAN CORPUSCULAR VOLUME 89 FL (80-99); MEAN PLATELET VOLUME 9.2 FL (7.4-10.4); MONOCYTES # (AUTO) 0.5 X 10^3 (0.0-1.0); MONOCYTES % (AUTO) 6 % (0-12); NEUTROPHILS # (AUTO) 8.7 X 10^3 (1.8-7.8); NEUTROPHILS % (AUTO) 89 % (42-75); PLATELET COUNT 201 10^3/uL (130-400); RED BLOOD COUNT 2.84 10^6/uL (4.35-5.85); RED CELL DISTRIBUTION WIDTH 13.9 % (10.0-14.5); WHITE BLOOD COUNT 9.8 10^3/uL (4.3-11.0)
[2016-12-10] MEDS: methylPREDNISolone 40 MG/ML (Solu-MEDROL) VIAL IV SCH ×4 (05:07→23:14)
[2016-12-10] MEDS: oxyCODONE/APAP 5/325MG (PERCOCET 5) TABLET PO PRN ×2 (05:07→10:06)
[2016-12-10 05:27] LABS: ANION GAP 10 MMOL/L (5-14); BLOOD UREA NITROGEN 8 MG/DL (7-18); BUN/CREATININE RATIO 15; CALCIUM 8.4 MG/DL (8.5-10.1); CARBON DIOXIDE 26 MMOL/L (21-32); CHLORIDE 97 MMOL/L (98-107); CREATININE SERUM 0.53 MG/DL (0.60-1.30); GFR ESTIMATED > 60; GLUCOSE 139 MG/DL (70-105); MAGNESIUM 1.9 MG/DL (1.8-2.4); PHOSPHORUS 1.9 MG/DL (2.3-4.7); POTASSIUM 3.1 MMOL/L (3.6-5.0); SODIUM 133 MMOL/L (135-145)
[2016-12-10] MEDS: POTASSIUM CL 10MEQ/50ML IVPB 50 ML IV SCH ×4 (05:38→09:59)
[2016-12-10] MEDS: MAGNESIUM 1 GM/100 ML IVPB 100 ML IV SCH (05:38)
[2016-12-10] MEDS: KCL 20 MEQ TAB (K-DUR) PO SCH (05:39)
[2016-12-10] MEDS ORDERED: KCL 20 MEQ TAB (K-DUR) PO ONE ×2 (05:45→07:45)
[2016-12-10] MEDS: Glycopyrrolate/Formoterol Fum (Bevespi Aerosphere Inhaler) IH SCH ×2 (06:16→18:27)
--- NOTE | 2016-12-10 07:00 | Pulmonary Progress Note ---
Subjective Time Seen by Provider: 07:00 Subjective/Events-last exam pt feels improved. No complications noted. Exam Exam Vital Signs Date Time Temp Pulse Resp B/P (MAP) Pulse Ox O2 Delivery O2 Flow Rate FiO2 12/10/16 06:15 91 Nasal Cannula 8.00 12/10/16 06:00 84 10 161/85 99 High Flow N/C 8.00 12/10/16 05:00 90 17 167/85 96 High Flow N/C 8.00 12/10/16 04:00 82 10 152/78 99 High Flow N/C 8.00 12/10/16 04:00 93 High Flow N/C 9.00 12/10/16 03:00 91 16 119/89 94 High Flow N/C 8.00 12/10/16 02:56 98 Nasal Cannula 8.00 12/10/16 02:00 83 13 165/79 95 High Flow N/C 10.00 12/10/16 01:00 89 12/10/16 01:00 87 16 158/76 95 High Flow N/C 10.00 12/10/16 00:00 92 High Flow N/C 9.00 12/10/16 00:00 82 10 143/80 97 High Flow N/C 10.00 12/10/16 00:00 98.5 12/09/16 23:00 95 20 149/73 91 High Flow N/C 10.00 12/09/16 22:52 92 Nasal Cannula 9.00 12/09/16 22:00 85 10 141/73 98 High Flow N/C 10.00 12/09/16 21:00 89 11 131/73 96 High Flow N/C 10.00 12/09/16 20:00 93 High Flow N/C 9.00 12/09/16 20:00 98.6 12/09/16 20:00 93 15 141/57 93 High Flow N/C 10.00 12/09/16 19:00 101 15 157/65 94 High Flow N/C 10.00 12/09/16 19:00 99 12/09/16 18:40 92 Nasal Cannula 9.00 12/09/16 18:00 108 25 155/75 92 High Flow N/C 10.00 12/09/16 17:00 93 26 158/83 93 High Flow N/C 10.00 12/09/16 16:00 89 13 152/78 96 High Flow N/C 10.00 12/09/16 16:00 94 High Flow N/C 10.00 12/09/16 15:00 90 16 153/73 93 High Flow N/C 10.00 12/09/16 14:00 95 19 157/74 93 High Flow N/C 10.00 12/09/16 13:57 99 Nasal Cannula 8.00 12/09/16 13:00 96 17 150/74 96 High Flow N/C 10.00 12/09/16 13:00 94 12/09/16 12:09 94 High Flow N/C 10.00 12/09/16 12:02 98.0 12/09/16 12:00 95 26 150/69 95 High Flow N/C 10.00 12/09/16 11:00 99 20 145/48 94 High Flow N/C 10.00 12/09/16 10:34 94 Nasal Cannula 8.00 12/09/16 10:00 99 20 156/80 94 High Flow N/C 10.00 12/09/16 09:00 96 12 153/71 98 High Flow N/C 10.00 12/09/16 08:05 94 High Flow N/C 10.00 12/09/16 08:00 97.1 12/09/16 08:00 91 19 164/82 95 High Flow N/C 10.00 12/09/16 07:00 88 12/09/16 07:00 88 13 158/79 96 High Flow N/C 10.00 General Appearance: Mild Distress HEENT: PERRL/EOMI, Normal ENT Inspection, Pharynx Normal Neck: Full Range of Motion, Normal Inspection, Non Tender, Supple, Carotid Bruit Respiratory: No Accessory Muscle Use, No Respiratory Distress, Decreased Breath Sounds, Rhonci Cardiovascular: Tachycardia Gastrointestinal: soft Extremity: No Pedal Edema Neurologic/Psychiatric: Alert, Oriented x3, No Motor/Sensory Deficits Skin: Normal Color, Pallor Lymphatic: No Adenopathy Results Lab Laboratory Tests 12/08/16 12:03 12/08/16 19:20 12/08/16 23:55 12/09/16 04:55 12/09/16 12:54 12/09/16 18:35 12/09/16 23:55 12/10/16 04:45 Assessment/Plan Assessment/Plan s/p L3-S1 PSIF complicated by durotomy COPDAE with wheezing and probably pulmonary edema -Solumedrol 40 Q 6 -hep lock IVF -SVNs -Monitor -IS Pulmonary edema -- doubt PNA - no leukocytosis, no fever, no productive cough -Lasix 40mg daily Atelectasis -IS -increase activity Hypokalemia -replace Hx of lung nodules being followed by my office as outpatient -Pt will need CT scan as out patient Pt is doing much better will transfer her to 4th floor. 233 Clinical Quality Measures DVT/VTE Risk/Contraindication: Risk Factor Score Per Nursin RFS Level Per Nursing on Admit: 4+=Very High FELICIA LOPEZ DO Dec 10, 2016 07:00
--- NOTE | 2016-12-10 07:16 | Diagnostic Imaging Report ---
EXAM: Postoperative upright radiograph of the chest. INDICATION: Cough. COMPARISON: 12/09/16. FINDINGS: There is improved right basilar infiltrate. Mild background vascular congestion is seen. There are bilateral small effusions. The heart right margin is obscured. No pneumothorax. IMPRESSION: Improved right basilar infiltrate. Pulmonary vascular congestion and bilateral pleural effusions, more on the right side. Dictated by: Dictated on workstation # [id number]
[2016-12-10] MEDS: DOCUSATE SODIUM 100 MG (COLACE) CAP PO SCH ×2 (07:56→20:37)
[2016-12-10] MEDS: FAMOTIDINE 20 MG (PEPCID) TABLET PO SCH ×2 (07:56→20:37)
[2016-12-10] MEDS: MULTIVIT W/MINERALS TAB (THERAGRAN M) PO SCH (07:56)
[2016-12-10] MEDS: FUROSEMIDE 40 MG/4 ML INJ (LASIX) IVP SCH (07:57)
--- NOTE | 2016-12-10 08:32 | Cardiology Progress Note ---
Subjective Date Seen by Provider: Dec 10, 2016 Time Seen by Provider: 08:00 Subjective/Events-last exam patient is laying down in bed, feeling better. Asking to go home, breathing better. Review of Systems General: No Chills, No Night Sweats, No Fatigue, No Malaise, No Appetite, No Other HEENT: No Head Aches, No Visual Changes, No Eye Pain, No Ear Pain, No Dysphasia , No Sinus Congestion, No Post Nasal Drip, No Sore Throat, No Other Pulmonary: Dyspnea, No Cough, No Pleuritic Chest Pain, No Other Cardiovascular: No: Chest Pain, Palpitations, Orthopnea, Paroxysmal Noc. Dyspnea, Edema, Lt Headedness, Other Objective-Cardiology Exam Last Set of Vital Signs Vital Signs 12/10/16 12/10/16 12/10/16 06:00 06:15 07:00 Pulse 93 Resp 10 B/P (MAP) 161/85 Pulse Ox 91 O2 Delivery Nasal Cannula O2 Flow Rate 8.00 Capillary Refill : I&O Intake and Output 12/11/16 00:00 Intake Total 300 ml Output Total 450 ml Balance -150 ml Intake Oral 300 ml Output Urine Total 450 ml General: Alert, Oriented X3, Cooperative HEENT: Atraumatic, PERRLA Neck: Supple, No JVD, No Thyromegaly Lungs: Normal Air Movement, Other (bilateral wheezing) Heart: Regular Rate, Normal S1, Normal S2, No Murmurs Abdomen: Normal Bowel Sounds, Soft, No Tenderness, No Hepatosplenomegaly, No Masses Extremities: No Clubbing, No Cyanosis, No Edema, Normal Pulses, No Tenderness/ Swelling Skin: No Rashes, No Breakdown, No Significant Lesion Neuro: Normal Speech, Normal Tone, Sensation Intact Psych/Mental Status: Mental Status NL, Mood NL Results Lab Laboratory Tests 12/09/16 12:54 12/09/16 18:35 12/09/16 23:55 12/10/16 04:45 A/P-Cardiology Admission Diagnosis Spinal stenosis Anemia Coronary artery disease Shortness of breath Hypotension Assessment/Plan Spinal Stenosis, S/p L3-S1 PSIF complicated by durotomy, surgery was done on December 07, 2016, recovering slowly. Feeling better today. Asking to go home. Anemia, postoperatively, probably dilutional and blood loss, managed by primary care physician. Shortness of breath, has history of dyspnea on exertion, history of tobaccoism and COPD, breathing better today. Coronary artery disease, reporting cardiac catheterization done about 15 years ago and she was told that she has 60-65 doses, treated conservatively, stress test was done in September 2016 showing no ischemia or infarction with ejection fraction 84 percent, echocardiogram showed normal LV size and function with EF 50-55 percent, moderate MR, PA pressure 40 mmHg. Continue to monitor as an outpatient Hypertension, good control, continue to monitor blood pressure Hyperlipidemia, monitor lipids Tobaccoism, still an active smoker, discussed smoking cessation. Strong family history of heart disease. Dr. Narayanan is covering for the weekend Clinical Quality Measures DVT/VTE Risk/Contraindication: Risk Factor Score Per Nursin RFS Level Per Nursing on Admit: 4+=Very High ORTEGA SCHAEFFER MD Dec 10, 2016 08:32
[2016-12-10] MEDS: LACTULOSE SYRUP 10GM/15ML (ENULOSE) 30ML UDC PO SCH ×2 (10:59→20:38)
--- NOTE | 2016-12-10 11:48 | Physical Therapy Daily Note ---
PT Daily Note-Current Subjective Patient in wheelchair at bedside pre tx, nursing in the process of taking her to the 4th floor. PT will take over. Patient has no complaints of pain. Appearance Patient in bed post tx with nurse call, phone, tray, all needs met. Nurse notified patient is in the room on the 4th floor 405. Mental Status Patient Orientation: Person, Place, Situation Attachments: Oxygen, IV Transfers Functional [place] Measure 0=Not Assessed/NA 4=Minimal Assistance 1=Total Assistance 5=Supervision or Setup 2=Maximal Assistance 6=Modified [place] 3=Moderate Assistance 7=Complete IndependenceIRFPAI Quality Coding Scale 6 Independent with activity with or without an assistive device 5 Patient requires set up or clean up by helper. Patient completes activity by themselves 4 Supervision or touching assist (CGA). [place] provide cues , steadying assist 3 The helper provides less than half the effort to complete the activity 2 The helper provides more than half the effort to complete the activity 1 Dependent. The helper does all the effort to complete an activity 7 Patient refused to complete or attempt activity 9 The patient did not perform the activity before the current illness or injury 88 Not attempted due to Medical conditions or safety concerns Transfers (B, C, W/C) (FIM): 2 Scootin Rollin Supine to/from Sit: 2 Sit to/from Stand: 4 Patient needs assist with both legs and back supine to sit but only min to CGA for standing, cues for positioning and safety Gait Training Gait (FIM): 1 Distance: 3' Gait Level of Assist: 4 Gait Persons Needed: 1 Gait Assistive Device: FWW CGA, antalgic, slow Exercises Supine Ex: Ankle pumps, Quad Set, Glut sets Supine Reps: 20 Treatments bed mobility and transfers, functional strengthening, brace don/doff (dependent) Assessment Current Status: Fair Progress improving transfers PT Care Home Goals Care Home Goals PT Balancing Machine Operator Goals Time Frame: Dec 13, 2016 Transfers (B,C,W/C) (FIM): 4 Gait (FIM): 4 Gait distance (FIM): 3=150 ft Gait Assistive Device: FWW PT Plan Problem List Problem List: Activity Tolerance, Functional Strength, Safety, Balance, Gait, Transfer, Bed Mobility, ROM Treatment/Plan Treatment Plan: Continue Plan of Care Treatment Plan: Bed Mobility, Education, Functional Activity French, Functional Strength, Gait, Safety, Therapeutic Exercise, Transfers Treatment Duration: Dec 13, 2016 Frequency: 11 times per week Estimated Hrs Per Day: 1 hour per day Patient and/or Family Agrees t: Yes Safety Risks/Education Patient Education: Gait Training, Transfer Techniques, Correct Positioning, Reviewed Don/Doff Brace, Safety Issues Teaching Recipient: Patient Teaching Methods: Demonstration, Discussion Response to Teaching: Reinforcement Needed Time/GCodes Time In: 1115 Time Out: 1140 Total Billed Treatment Time: 25 Total Billed Treatment 1 visit EX 15' FA 10' NAVID FRIEND PT Dec 10, 2016 11:48
--- NOTE | 2016-12-10 12:28 | Progress Note-Hospitalist ---
Progress Note HPI/CC on Admission CC: medical management following extensive lumbar spine surgery uncomplicated by Dr Hancock HPI: this is a 70-year-old white female clinic patient of Dr. Cancino in [facility] in [facility] the presents after an uncomplicated extensive lumbar spine surgery although she did have 1500 mL of blood loss and received 2 units of blood in OR but has since experienced hypotension upon arrival to floor necessitating transfer to ICU for hypovolumic hypotensive state in need of close monitoring and IVF boluses. Currently she is having difficulty mentating and having wheezing on exam so I placed emergent orders for ICU and contacted Dr Lubin regarding this case along with stat Neb treatment by RT. Pt states she is having back pain but otherwise she has no other issues although she feels weak. Upon my assessment she appears pale and slightly tachypneic although this is a subtle finding. Kam Ortega arrives in room and agrees with the plan for the transfer. Progress Notes/Assess & Plan Date Seen 12/10/16 Time Seen by Provider: 11:15 Admission Dx/Process Assessment: Hypotension due to hypovolemia from 1500 mL of blood loss during surgery status post 2 units of packed red blood cell transfusion but remains hypotensive needing transferred to the ICU for IV fluid boluses and possible pressor therapy COPD with current smoking and current wheezing on exam with mild tachypnea History of hypertension GERD HLP Diagonsis/Assessment & Plan Chart Review: No fever Vitals stable except BP of 161/85 Hgb 8.5 stable Na+ 133 K+ 3.1 Dr. Hancock Review: Dr. Hancock and Kam Ortega does not believe pt is ready to DC and will discuss this with the pt. Patient Interview: Pt states she is transferring to 4th floor today Catheter removal was discussed and pt would like to keep the catheter due to having been started on Lasix Pt is adamant about DC soon and states she will be going to DC home and will work with home Jybe in [place]. Pt states she feels able to get around well enough with a walker and her back brace. Pt was informed that Dr. Hancock will be conferred with on when to DC. Pt states that her will help with back brace and has been trained on how to put it on since he used one himself. Physical exam stable. Pt denies having BMs No fever, vital signs stable, pleasant, oriented 3, pale but appears to be chronic now improved from 4 nights ago, sitting up in bed Regular rate and rhythm, wheezing all [place] are much improved and resolved coarseness on auscultation No edema Laboratory Tests 12/09/16 12:54 12/09/16 18:35 12/09/16 23:55 12/10/16 04:45 12/10/16 11:59 Assessment: s/p post-op hypotension due to hypovolemia from 1500 mL of blood loss during surgery status post 2 units of packed red blood cell transfusion in OR but remained hypotensive necessitating transfer to the ICU 3 nights ago for IV fluid boluses of 5.5 liters but did not require pressor therapy COPD with current smoking and wheezing on exam on admit with mild tachypnea consulted Dr Lubin and placed on Nebs but now doing much better Evidence of mild volume overload with elevated BNP s/p Lasix by Dr Lubin and have consulted Dr Khanna as precaution Post op anemia due to acute blood loss History of hypertension as out pt holding home meds GERD HLP Hypokalemia Plan: Dr. Lubin's help is appreciated Dr. Khanna's help is appreciated Nebs treatments with DuoNeb Monitor closely PICC line for venous access PT/OT In-pt rehab? SW? DC catheter at 1400 today Transfer to 4th floor Pt needs SB or IRU but patient appears to be not willing to proceed on with that plan but that is in her best interest Scribed by Mary Ramos under the direct supervision of Dr. Andres. MAGDALENE ANDRES DO Dec 10, 2016 12:28
[2016-12-10 12:49] LABS: ANION GAP 11 MMOL/L (5-14); BLOOD UREA NITROGEN 10 MG/DL (7-18); BUN/CREATININE RATIO 16; CALCIUM 8.9 MG/DL (8.5-10.1); CARBON DIOXIDE 28 MMOL/L (21-32); CHLORIDE 97 MMOL/L (98-107); CREATININE SERUM 0.64 MG/DL (0.60-1.30); GFR ESTIMATED > 60; GLUCOSE 157 MG/DL (70-105); SODIUM 136 MMOL/L (135-145)
--- NOTE | 2016-12-10 15:27 | Physical Therapy Daily Note ---
PT Daily Note-Current Subjective Patient in bed sleeping pre tx, agrees to PT upon waking, states she needs to use the restroom and would like to try to walk there. No complaints of pain but has pain during transfers. Appearance Patient BTB post tx with nurse call, phone, tray, all needs met. Mental Status Patient Orientation: Person, Place, Situation Attachments: Oxygen TLSO Transfers Functional [place] Measure 0=Not Assessed/NA 4=Minimal Assistance 1=Total Assistance 5=Supervision or Setup 2=Maximal Assistance 6=Modified [place] 3=Moderate Assistance 7=Complete IndependenceIRFPAI Quality Coding Scale 6 Independent with activity with or without an assistive device 5 Patient requires set up or clean up by helper. Patient completes activity by themselves 4 Supervision or touching assist (CGA). [place] provide cues , steadying assist 3 The helper provides less than half the effort to complete the activity 2 The helper provides more than half the effort to complete the activity 1 Dependent. The helper does all the effort to complete an activity 7 Patient refused to complete or attempt activity 9 The patient did not perform the activity before the current illness or injury 88 Not attempted due to Medical conditions or safety concerns Transfers (B, C, W/C) (FIM): 2 Scootin Rollin Supine to/from Sit: 2 Sit to/from Stand: 4 patient needs assist with both legs getting into and out of bed, cues for hand placement and safety Gait Training Gait (FIM): 1 Distance: 15'x2 Gait Level of Assist: 4 Gait Persons Needed: 1 Gait Assistive Device: FWW Patient ambulated 15'x2 with a rolling walker with CGA, fairly unsteady but no LOB, slow, antalgic ambulation Treatments bed mobility and transfers, ambulation Assessment Current Status: Fair Progress improving ambulation PT Mcc Goals Mcc Goals PT Drilling Inspector Goals Time Frame: Dec 13, 2016 Transfers (B,C,W/C) (FIM): 4 Gait (FIM): 4 Gait distance (FIM): 3=150 ft Gait Assistive Device: FWW PT Plan Problem List Problem List: Activity Tolerance, Functional Strength, Safety, Balance, Gait, Transfer, Bed Mobility, ROM Treatment/Plan Treatment Plan: Continue Plan of Care Treatment Plan: Bed Mobility, Education, Functional Activity French, Functional Strength, Gait, Safety, Therapeutic Exercise, Transfers Treatment Duration: Dec 13, 2016 Frequency: 11 times per week Estimated Hrs Per Day: 1 hour per day Patient and/or Family Agrees t: Yes Safety Risks/Education Patient Education: Gait Training, Transfer Techniques, Correct Positioning, Safety Issues Teaching Recipient: Patient Teaching Methods: Demonstration, Discussion Response to Teaching: Reinforcement Needed Time/GCodes Time In: 1505 Time Out: 1520 Total Billed Treatment Time: 15 Total Billed Treatment 1 visit GT 15' NAVID FRIEND PT Dec 10, 2016 15:27
--- NOTE | 2016-12-10 16:24 | Progress Note (SOAP) ---
Subjective Date Seen by Provider: Dec 10, 2016 Time Seen by Provider: 16:19 Subjective/Events-last exam POD #4 s/p lumbar fusion. Sitting in bed with little complaints. She is still having copious drainage from her lumbar wound but this is slowing. Her current bandage is dry. He denies headaches neck pain neck stiffness or photophobia. We discussed rehab placement which she is hesistant to entertain this idea and is in favor of home health. Review of Systems General: No Chills, No Night Sweats Pulmonary: No Dyspnea Cardiovascular: No: Chest Pain Gastrointestinal: No: Nausea, Vomiting Musculoskeletal: back pain Neurological: No: Weakness, Numbness Objective Exam Vital Signs Date Time Temp Pulse Resp B/P (MAP) Pulse Ox O2 Delivery O2 Flow Rate FiO2 12/10/16 14:04 91 Nasal Cannula 3.50 12/10/16 12:00 91 Nasal Cannula 3.50 12/10/16 11:00 109 16 154/75 93 Nasal Cannula 5.00 12/10/16 10:00 97 24 144/65 94 Nasal Cannula 5.00 12/10/16 09:55 91 Nasal Cannula 4.50 12/10/16 09:00 97 12 149/76 91 Nasal Cannula 5.00 12/10/16 08:00 93 High Flow N/C 5.00 12/10/16 08:00 97.4 95 13 167/75 90 Nasal Cannula 5.00 12/10/16 07:00 93 12/10/16 07:00 86 15 161/83 95 Nasal Cannula 5.00 12/10/16 06:15 91 Nasal Cannula 8.00 12/10/16 06:00 84 10 161/85 99 High Flow N/C 8.00 12/10/16 05:00 90 17 167/85 96 High Flow N/C 8.00 12/10/16 04:00 82 10 152/78 99 High Flow N/C 8.00 12/10/16 04:00 98.3 12/10/16 04:00 93 High Flow N/C 9.00 12/10/16 03:00 91 16 119/89 94 High Flow N/C 8.00 12/10/16 02:56 98 Nasal Cannula 8.00 12/10/16 02:00 83 13 165/79 95 High Flow N/C 10.00 12/10/16 01:00 89 12/10/16 01:00 87 16 158/76 95 High Flow N/C 10.00 12/10/16 00:00 92 High Flow N/C 9.00 12/10/16 00:00 82 10 143/80 97 High Flow N/C 10.00 12/10/16 00:00 98.5 12/09/16 23:00 95 20 149/73 91 High Flow N/C 10.00 12/09/16 22:52 92 Nasal Cannula 9.00 12/09/16 22:00 85 10 141/73 98 High Flow N/C 10.00 12/09/16 21:00 89 11 131/73 96 High Flow N/C 10.00 12/09/16 20:00 93 High Flow N/C 9.00 12/09/16 20:00 98.6 12/09/16 20:00 93 15 141/57 93 High Flow N/C 10.00 12/09/16 19:00 101 15 157/65 94 High Flow N/C 10.00 12/09/16 19:00 99 12/09/16 18:40 92 Nasal Cannula 9.00 12/09/16 18:00 108 25 155/75 92 High Flow N/C 10.00 12/09/16 17:00 93 26 158/83 93 High Flow N/C 10.00 I & O 12/11/16 07:00 Intake Total 350 ml Output Total 1800 ml Balance -1450 ml Capillary Refill : General Appearance: No Apparent Distress, WD/WN Neck: Non Tender Respiratory: No Accessory Muscle Use, No Respiratory Distress Cardiovascular: Normal Peripheral Pulses Peripheral Pulses: 2+ Dorsalis Pedis (R), 2+ Left Dors-Pedis (L) Gastrointestinal: non tender, soft, no organomegaly Extremity: Normal Capillary Refill, Normal Inspection, Normal Range of Motion, Non Tender, No Calf Tenderness, No Pedal Edema Neurologic/Psychiatric: Alert, Oriented x3, No Motor/Sensory Deficits Skin: Normal Color, Warm/Dry Results Lab Laboratory Tests 12/09/16 18:35: Hemoglobin 8.6L, Hematocrit 26L 12/09/16 23:55: Hemoglobin 8.3L, Hematocrit 25L 12/10/16 04:45: Hemoglobin 8.5L, Hematocrit 25L, White Blood Count 9.8, Red Blood Count 2.84L, Mean Corpuscular Volume 89, Mean Corpuscular Hemoglobin 30, Mean Corpuscular Hemoglobin Concent 34, Red Cell Distribution Width 13.9, Platelet Count 201, Mean Platelet Volume 9.2, Neutrophils (%) (Auto) 89H, Lymphocytes (%) (Auto) 5L , Monocytes (%) (Auto) 6, Eosinophils (%) (Auto) 0, Basophils (%) (Auto) 0, Neutrophils # (Auto) 8.7H, Lymphocytes # (Auto) 0.5L, Monocytes # (Auto) 0.5, Eosinophils # (Auto) 0.0, Basophils # (Auto) 0.0, Sodium Level 133L, Potassium Level 3.1L, Chloride Level 97L, Carbon Dioxide Level 26, Anion Gap 10, Blood Urea Nitrogen 8, Creatinine 0.53L, Estimat Glomerular Filtration Rate > 60, BUN/ Creatinine Ratio 15, Glucose Level 139H, Calcium Level 8.4L, Phosphorus Level 1.9L, Magnesium Level 1.9 12/10/16 11:59: Hemoglobin 9.0L, Hematocrit 27L, Sodium Level 136, Potassium Level 4.0, Chloride Level 97L, Carbon Dioxide Level 28, Anion Gap 11, Blood Urea Nitrogen 10, Creatinine 0.64, Estimat Glomerular Filtration Rate > 60, BUN/Creatinine Ratio 16, Glucose Level 157H, Calcium Level 8.9 12/10/16 14:05: Potassium Level 3.9 Microbiology 12/08/16 Blood Culture - Preliminary, Resulted No growth Assessment/Plan Assessment/Plan Assess & Plan/Chief Complaint POD #4 s/p lumbar fusion incidental durotomy with repair, suspect csf leak - asymptomatic of ABL anemia COPD - Plan: OOB with PT brace when OOB continue to monitor lumbar wound for signs of csf leak prefer snf or rehab vs home health and will continue to encourage this option with patient continue medical care per Dr Galvan Clinical Quality Measures DVT/VTE Risk/Contraindication: Risk Factor Score Per Nursin RFS Level Per Nursing on Admit: 4+=Very High MEE HICKS Dec 10, 2016 16:24
[2016-12-10] MEDS ORDERED: NALOXONE 0.4 MG/ML 1 ML (NARCAN) VIAL IV PRN (16:45)
[2016-12-10] MEDS ORDERED: METOCLOPRAMIDE INJ 10 MG/2 ML (REGLAN) IV PRN (16:45)
[2016-12-10] MEDS ORDERED: diphenhydrAMINE 50 MG/ML INJ (BENADRYL) IV PRN (16:45)
[2016-12-10] MEDS ORDERED: NS IV 1000 ML 1,000 ML IV SCH (16:45)
[2016-12-10] MEDS ORDERED: ONDANSETRON 4 MG/2 ML (SDV) Z0FRAN IV PRN (16:45)
[2016-12-10] MEDS ORDERED: morphine PCA 30 MG/30 ML VIAL IV PRN (16:45)
[2016-12-10] MEDS: morphine INJ 4 MG/ML 1 ML (VIAL/SYRINGE) IVP PRN (20:38)
[2016-12-11] VITALS: BP 142/64
[2016-12-11] MEDS: ALBUTEROL INHALER HFA (VENTOLIN HFA) 18 GM IH SCH ×2 (02:41→05:51)
[2016-12-11 04:00] VITALS: BP 131/82
[2016-12-11] MEDS: morphine INJ 4 MG/ML 1 ML (VIAL/SYRINGE) IVP PRN (05:27)
[2016-12-11] MEDS: Glycopyrrolate/Formoterol Fum (Bevespi Aerosphere Inhaler) IH SCH ×2 (05:51→19:28)
[2016-12-11] MEDS: MULTIVIT W/MINERALS TAB (THERAGRAN M) PO SCH (06:13)
[2016-12-11] MEDS: methylPREDNISolone 40 MG/ML (Solu-MEDROL) VIAL IV SCH ×2 (06:13→19:57)
[2016-12-11 06:30] LABS: BASOPHILS % (AUTO) 0 % (0-10); EOSINOPHILS % (AUTO) 0 % (0-10); LYMPHOCYTES # (AUTO) 0.8 X 10^3 (1.0-4.0); LYMPHOCYTES % (AUTO) 8 % (12-44); MEAN CORPUSCULAR HEMOGLOBIN 30 PG (25-34); MEAN CORPUSCULAR HGB CONC 33 G/DL (32-36); MEAN CORPUSCULAR VOLUME 91 FL (80-99); MEAN PLATELET VOLUME 9.2 FL (7.4-10.4); MONOCYTES # (AUTO) 0.7 X 10^3 (0.0-1.0); MONOCYTES % (AUTO) 7 % (0-12); NEUTROPHILS # (AUTO) 8.5 X 10^3 (1.8-7.8); NEUTROPHILS % (AUTO) 85 % (42-75); PLATELET COUNT 269 10^3/uL (130-400); RED BLOOD COUNT 3.05 10^6/uL (4.35-5.85); RED CELL DISTRIBUTION WIDTH 14.5 % (10.0-14.5); WHITE BLOOD COUNT 9.9 10^3/uL (4.3-11.0)
[2016-12-11] MEDS ORDERED: RT-ALBUTEROL SULF 2.5 MG/3 ML PRE-MIX VIAL IH PRN (06:45)
[2016-12-11 06:56] LABS: ANION GAP 9 MMOL/L (5-14); BLOOD UREA NITROGEN 11 MG/DL (7-18); BUN/CREATININE RATIO 18; CALCIUM 8.9 MG/DL (8.5-10.1); CARBON DIOXIDE 28 MMOL/L (21-32); CHLORIDE 99 MMOL/L (98-107); GFR ESTIMATED > 60; GLUCOSE 127 MG/DL (70-105); PHOSPHORUS 3.1 MG/DL (2.3-4.7); POTASSIUM 3.8 MMOL/L (3.6-5.0); SODIUM 136 MMOL/L (135-145)
[2016-12-11 08:00] VITALS: BP 186/88
[2016-12-11] MEDS: DOCUSATE SODIUM 100 MG (COLACE) CAP PO SCH ×2 (08:07→19:58)
[2016-12-11] MEDS: FUROSEMIDE 40 MG/4 ML INJ (LASIX) IVP SCH (08:07)
[2016-12-11] MEDS: FAMOTIDINE 20 MG (PEPCID) TABLET PO SCH ×2 (08:08→19:58)
[2016-12-11] MEDS: CYCLOBENZAPRINE 10 MG (FLEXERIL) TAB PO PRN ×2 (08:08→14:51)
[2016-12-11] MEDS: oxyCODONE/APAP 5/325MG (PERCOCET 5) TABLET PO PRN ×3 (08:08→19:58)
[2016-12-11] MEDS: LACTULOSE SYRUP 10GM/15ML (ENULOSE) 30ML UDC PO SCH ×2 (08:09→19:56)
[2016-12-11] MEDS ORDERED: SENNA W/DOCUSATE (SENOKOT S) TABLET PO SCH (09:00)
--- NOTE | 2016-12-11 09:13 | Progress Note (SOAP) ---
Subjective Date Seen by Provider: Dec 11, 2016 Time Seen by Provider: 09:10 Subjective/Events-last exam DIONNE. Doing well. Denies headaches, nausea or vomiting. Denies CP/SOB. Has been OOB. Dressing changes becoming less frequent and drainage has slowed significantly. Objective Exam Vital Signs Date Time Temp Pulse Resp B/P (MAP) Pulse Ox O2 Delivery O2 Flow Rate FiO2 12/11/16 08:00 97.7 96 18 186/88 94 Nasal Cannula 4.00 12/11/16 07:20 Nasal Cannula 4.00 12/11/16 05:52 90 Nasal Cannula 4.00 12/11/16 05:52 Nasal Cannula 4.00 12/11/16 04:00 96.8 87 20 131/82 97 Nasal Cannula 4.00 12/11/16 02:42 91 Nasal Cannula 4.00 12/11/16 01:00 79 12/11/16 00:00 97.1 90 20 142/64 94 Nasal Cannula 5.00 12/10/16 22:19 94 Nasal Cannula 4.00 12/10/16 19:33 97.3 97 16 158/76 97 Nasal Cannula 5.00 12/10/16 19:00 118 12/10/16 18:30 Nasal Cannula 4.00 12/10/16 18:27 88 Nasal Cannula 3.00 12/10/16 16:00 98.2 95 18 156/81 95 Nasal Cannula 5.00 12/10/16 14:04 91 Nasal Cannula 3.50 12/10/16 12:00 91 Nasal Cannula 3.50 12/10/16 11:00 109 16 154/75 93 Nasal Cannula 5.00 12/10/16 10:00 97 24 144/65 94 Nasal Cannula 5.00 12/10/16 09:55 91 Nasal Cannula 4.50 Capillary Refill : General Appearance: No Apparent Distress Extremity: Other (5/5 motor crow LE, NVSI, dressing is CDI) Results Lab Laboratory Tests 12/10/16 11:59: Hemoglobin 9.0L, Hematocrit 27L, Sodium Level 136, Potassium Level 4.0, Chloride Level 97L, Carbon Dioxide Level 28, Anion Gap 11, Blood Urea Nitrogen 10, Creatinine 0.64, Estimat Glomerular Filtration Rate > 60, BUN/Creatinine Ratio 16, Glucose Level 157H, Calcium Level 8.9 12/10/16 14:05: Potassium Level 3.9 10/20/17 18:01: Hemoglobin 9.0L, Hematocrit 27L 12/11/16 00:06: Hemoglobin 8.2L, Hematocrit 25L 12/11/16 05:22: White Blood Count 9.9, Red Blood Count 3.05L, Hemoglobin 9.1L, Hematocrit 28L, Mean Corpuscular Volume 91, Mean Corpuscular Hemoglobin 30, Mean Corpuscular Hemoglobin Concent 33, Red Cell Distribution Width 14.5, Platelet Count 269, Mean Platelet Volume 9.2, Neutrophils (%) (Auto) 85H, Lymphocytes (%) (Auto) 8L , Monocytes (%) (Auto) 7, Eosinophils (%) (Auto) 0, Basophils (%) (Auto) 0, Neutrophils # (Auto) 8.5H, Lymphocytes # (Auto) 0.8L, Monocytes # (Auto) 0.7, Eosinophils # (Auto) 0.0, Basophils # (Auto) 0.0, Sodium Level 136, Potassium Level 3.8, Chloride Level 99, Carbon Dioxide Level 28, Anion Gap 9, Blood Urea Nitrogen 11, Creatinine 0.60, Estimat Glomerular Filtration Rate > 60, BUN/ Creatinine Ratio 18, Glucose Level 127H, Calcium Level 8.9, Phosphorus Level 3.1 , Magnesium Level 2.0 Microbiology 12/08/16 Blood Culture - Preliminary, Resulted No growth Assessment/Plan Assessment/Plan Assess & Plan/Chief Complaint ASSESSMENT: s/p L3-S1 PSIF complicated by durotomy PLAN: OOB with assist dressing changes PRN pain control durotomy: follow wound closely for drainage consider DC to rehab tuesday if wound is not draining Clinical Quality Measures DVT/VTE Risk/Contraindication: Risk Factor Score Per Nursin RFS Level Per Nursing on Admit: 4+=Very High RICHIE DUBOIS DO Dec 11, 2016 09:13
[2016-12-11] MEDS: RT-ALBUTEROL/IPRATROPIUM 3 ML (DUONEB) VIAL INH SCH ×4 (10:37→21:13)
[2016-12-11 12:00] VITALS: BP 164/76
--- NOTE | 2016-12-11 12:06 | Physical Therapy Progress Note ---
Therapy Progress Note Patient refused PT x2. She has been having to get up and ambulate to the bathroom she states 5-6 time already and would like to not ambulate any more. NAVID FRIEND PT Dec 11, 2016 12:06
[2016-12-11] MEDS ORDERED: BISACODYL 10 MG SUPP (DULCOLAX) PR NR (12:21)
[2016-12-11] MEDS ORDERED: FLEET ENEMA ADULT 1 EA BTL PR NR (12:22)
--- NOTE | 2016-12-11 12:29 | Occupational Therapy Eval ---
OT Evaluation-General/PLF Medical Diagnosis Admission Date Dec 06, 2016 at 07:45 Medical Diagnosis: spinal stenosis with L3-5 lat int fus, post spin fus Onset Date: Dec 07, 2016 Therapy Diagnosis Therapy Diagnosis: Decreased ADL skills Height/Weight Height (Feet): 5 Height (Inches): 1.00 Weight (Pounds): 153 Weight (Ounces): 0.0 Precautions Precautions/Isolations: Fall Prevention, Standard Precautions Safety Interventions: None Weight Bear Status Weight Bearing Restriction: Weight Bearing/Tolerated Back precautions, back brace on when out of bed. Referral Physician: quinton Referral Reason: Activity Tolerance, Self Care, Evaluation/Treatment, Strengthening/ROM Medical History Pertinent Medical History: Arthritis, COPD, HTN Additional Medical History hysterectomy Current History Pt. had elective surgery on back Reviewed History: Yes Social History Home: Multilevel (Stays on one level) Current Living Status: Spouse Entry Into Home: Ramp ADL-Prior Level of Function ADL PLOF Comments Pt. was independent with all basic self care needs. Assisted who is not in good health. DME/Equipment: Bath Chair, Bedside Commode, Tub/Shower DME/Equipment Comments Walker, [address] Self: Yes OT Current Status Subjective Pt. does not state a pain level. Appearance Pt. in bed. Laughing and talking with family in room. Mental Status/Objective Patient Orientation: Person, Place Current Hand Dominance: Right Upper Extremity ROM WFL bilaterally Upper Extremity Strength NT due to recent surgery ADL-Treatment Functional [place] Measure 0=Not Assessed/NA 4=Minimal Assistance 1=Total Assistance 5=Supervision or Setup 2=Maximal Assistance 6=Modified [place] 3=Moderate Assistance 7=Complete IndependenceIRFPAI Quality Coding Scale 6 Independent with activity with or without an assistive device 5 Patient requires set up or clean up by helper. Patient completes activity by themselves 4 Supervision or touching assist (CGA). [place] provide cues , steadying assist 3 The helper provides less than half the effort to complete the activity 2 The helper provides more than half the effort to complete the activity 1 Dependent. The helper does all the effort to complete an activity 7 Patient refused to complete or attempt activity 9 The patient did not perform the activity before the current illness or injury 88 Not attempted due to Medical conditions or safety concerns Lower Body Dressing (FIM): 5 (Pt. able to doff/don socks while sitting EOB by bringing feet up to her.) Transfers (B, C, W/C) (FIM): 4 (SBA supine-sit, CGA sit-stand, Min assist sit- supine) Other Treatments Pt. transferred to side of bed with increased time needed. Max assist to don back brace. Stood at side of bed with CGA. No dizziness noted. Practiced weight shifts and stepping to side. Able to sit back down and practice getting feet into bed with only min assist needed. Pt. tolerated treatment well overall. All needs met. Educated on back precautions, back safety, and OT goals. Pt. is familiar as her spouse was a pt. here not very long ago. Education OT Patient Education: Correct positioning, Exercise program, Modified ADL techniques, Progress toward Goal/Update tx plan, Purpose of tx/functional activities, Reviewed precautions, Rehab process, Transfer techniques, Use of adapted equipment Teaching Recipient: Patient Teaching Methods: Demonstration, Discussion Response to Teaching: Verbalize Understanding, Return Demonstration OT Short Term Goals Short Term Goals 1=Demonstrate adherence to instructed precautions during ADL tasks. 2=Patient will verbalize/demonstrate understanding of assistive devices/ modifications for ADL. 3=Patient will improve strength/tolerance for activity to enable patient to perform ADL's. OT Concrete Stone Finisher Goals Concrete Stone Finisher Goals Time Frame: Dec 18, 2016 Eating (FIM): 6 Grooming(FIM): 6 Bathing(FIM): 5 Upper Body Dressing(FIM): 6 Lower Body Dressing(FIM): 6 Toileting(FIM): 6 Transfers (B,C,W/C) (FIM): 6 Toilet/Commode Transfer(FIM): 6 Shower Transfer(FIM): 5 Additional Goals: 1-Demonstrate ADL Tasks, 2-Verbalize Understanding, 3- ImproveStrength/French 1=Demonstrate adherence to instructed precautions during ADL tasks. 2=Patient will verbalize/demonstrate understanding of assistive devices/ modifications for ADL. 3=Patient will improve strength/tolerance for activity to enable patient to perform ADL's. OT Education/Plan Problem List/Assessment Assessment: Decreased Activ Tolerance, Decreased UE Strength, Dependent Transfers, Impaired Bed Mobility, Impaired Funct Balance, Impaired I ADL's, Impaired Self-Care Skills Discharge Recommendations Plan/Recommendations: Continue POC Therapy D/C Recommendations: Home w/ Family Support, Occupational Therapy Home Care Target Placement Home with spouse and home health. Treatment Plan/Plan of Care Treatment,Training & Education: Yes Patient would benefit from OT for education, treatment and training to promote independence in ADL's, mobility, safety and/or upper extremity function for ADL' s. Plan of Care: ADL Retraining, Functional Mobility, UE Funct Exercise/Act Treatment Duration: Dec 18, 2016 Frequency: 5 times per week Estimated Hrs Per Day: .25 hour per day Rehab Potential: Good Time/GCodes Start Time: 11:35 Stop Time: 12:00 Total Time Billed (hr/min): 25 Billed Treatment Time 1, EVM x 10minutes, FA x 15minutes LIANNA MARTINEZ OT Dec 11, 2016 12:29
--- NOTE | 2016-12-11 12:38 | Progress Note-Hospitalist ---
Progress Note HPI/CC on Admission CC: medical management following extensive lumbar spine surgery uncomplicated by Dr Hancock HPI: this is a 70-year-old white female clinic patient of Dr. Cancino in [facility] in [facility] the presents after an uncomplicated extensive lumbar spine surgery although she did have 1500 mL of blood loss and received 2 units of blood in OR but has since experienced hypotension upon arrival to floor necessitating transfer to ICU for hypovolumic hypotensive state in need of close monitoring and IVF boluses. Currently she is having difficulty mentating and having wheezing on exam so I placed emergent orders for ICU and contacted Dr Lubin regarding this case along with stat Neb treatment by RT. Pt states she is having back pain but otherwise she has no other issues although she feels weak. Upon my assessment she appears pale and slightly tachypneic although this is a subtle finding. Kam Ortega arrives in room and agrees with the plan for the transfer. Progress Notes/Assess & Plan Date Seen 12/11/16 Time Seen by Provider: 11:15 Admission Dx/Process Assessment: Hypotension due to hypovolemia from 1500 mL of blood loss during surgery status post 2 units of packed red blood cell transfusion but remains hypotensive needing transferred to the ICU for IV fluid boluses and possible pressor therapy COPD with current smoking and current wheezing on exam with mild tachypnea History of hypertension GERD HLP Diagonsis/Assessment & Plan Patient doing much better since moved down to fourth floor and labs remained stable No bowel movement yet so will initiate suppository and enemas Refuse to access swing bed benefits so she remains on Medr acute care Drainage from [facility] has been improving Pain is controlled Overall doing much better Will DC H/H Q 6hrs Decreasing steroids No fever, vital signs stable, pleasant, oriented 3, pale but appears to be chronic, improved Regular rate and rhythm, wheezing all [place] are much improved and resolved coarseness on auscultation No edema Laboratory Tests 12/10/16 14:05 12/10/16 18:01 12/11/16 00:06 12/11/16 05:22 Assessment: s/p post-op hypotension due to hypovolemia from 1500 mL of blood loss during surgery status post 2 units of packed red blood cell transfusion in OR but remained hypotensive necessitating transfer to the ICU 3 nights ago for IV fluid boluses of 5.5 liters but did not require pressor therapy COPD with current smoking and wheezing on exam on admit with mild tachypnea consulted Dr Lubin and placed on Nebs but now doing much better Evidence of mild volume overload with elevated BNP s/p Lasix by Dr Lubin and have consulted Dr Khanna as precaution Post op anemia due to acute blood loss doing much better History of hypertension and noted increase so starting Norvasc 5mg daily GERD HLP Hypokalemia Plan: Dr. Lubin's help is appreciated Dr. Khanna's help is appreciated Nebs treatments with DuoNeb Monitor closely PT/OT In-pt rehab? SW? Pt needs SB or IRU but patient appears to be not willing to proceed on with that plan but that is in her best interest Scribed by Mary Ramos under the direct supervision of Dr. Andres. MAGDALENE ANDRES DO Dec 11, 2016 12:37
[2016-12-11] MEDS: BISACODYL 5 MG (DULCOLAX) TABLET PO PRN (12:56)
[2016-12-11] MEDS: amLODIPine 5 MG (NORVASC) TAB PO SCH (13:02)
--- NOTE | 2016-12-11 15:56 | Progress Note-Cardiology ---
Cardiology SOAP Progress Note Subjective: No cp or palp or syncope Notes continuing sanguinous drainage from surgical wound Objective: I&O/Vital Signs Vital Sign - Last 12Hours 12/11/16 12/11/16 12/11/16 12/11/16 04:00 05:52 05:52 07:00 Temp 96.8 Pulse 87 78 Resp 20 B/P (MAP) 131/82 Pulse Ox 97 90 O2 Delivery Nasal Cannula Nasal Cannula Nasal Cannula O2 Flow Rate 4.00 4.00 4.00 12/11/16 12/11/16 12/11/16 12/11/16 07:20 08:00 10:37 12:00 Temp 97.7 98.6 Pulse 96 95 Resp 18 18 B/P (MAP) 186/88 164/76 Pulse Ox 94 95 O2 Delivery Nasal Cannula Nasal Cannula Nasal Cannula Nasal Cannula O2 Flow Rate 4.00 4.00 4.00 4.00 12/11/16 12/11/16 13:00 14:19 Pulse 79 Pulse Ox 93 O2 Delivery Nasal Cannula O2 Flow Rate 4.00 Weight (Pounds): 153 Weight (Ounces): 0.0 Weight (Calculated Kilograms): [id number] Constitutional: AAO x 3, well-developed Respiratory: No accessory muscle use, other (good bilat air entry) Cardiovascular: regular rate-rhythm, S1 and S2, systolic murmur (faint SARA at card base) Gastrointestional: No tender, soft, No guarding, No rebound Extremities: No clubbing, No cyanosis Neurologic/Psychiatric: oriented x 3, grossly intact, power is 5/5 both on sides Skin: No rash on exposed areas, No ulcerations on exposed areas Results/Procedures: Labs Laboratory Tests 12/10/16 18:01: Hemoglobin 9.0L, Hematocrit 27L 12/11/16 00:06: Hemoglobin 8.2L, Hematocrit 25L 12/11/16 05:22: Hemoglobin 9.1L, Hematocrit 28L, White Blood Count 9.9, Red Blood Count 3.05L, Mean Corpuscular Volume 91, Mean Corpuscular Hemoglobin 30, Mean Corpuscular Hemoglobin Concent 33, Red Cell Distribution Width 14.5, Platelet Count 269, Mean Platelet Volume 9.2, Neutrophils (%) (Auto) 85H, Lymphocytes (%) (Auto) 8L , Monocytes (%) (Auto) 7, Eosinophils (%) (Auto) 0, Basophils (%) (Auto) 0, Neutrophils # (Auto) 8.5H, Lymphocytes # (Auto) 0.8L, Monocytes # (Auto) 0.7, Eosinophils # (Auto) 0.0, Basophils # (Auto) 0.0, Sodium Level 136, Potassium Level 3.8, Chloride Level 99, Carbon Dioxide Level 28, Anion Gap 9, Blood Urea Nitrogen 11, Creatinine 0.60, Estimat Glomerular Filtration Rate > 60, BUN/ Creatinine Ratio 18, Glucose Level 127H, Calcium Level 8.9, Phosphorus Level 3.1 , Magnesium Level 2.0 Microbiology 12/08/16 Blood Culture - Preliminary, Resulted No growth Laboratory Tests 12/09/16 18:35 12/09/16 23:55 12/10/16 04:45 12/10/16 11:59 12/10/16 14:05 12/10/16 18:01 12/11/16 00:06 12/11/16 05:22 A/P: Assessment: S/p back surgery (S/p L3-S1 PSIF complicated by durotomy) on December 07, 2016. Notes continuing sanguineous drainage from surgical site Post-op anemia, [place] [facility] artery disease, stress test was done in September 2016 showing no ischemia or infarction with ejection fraction 84 percent; echocardiogram showed normal LV size and function with EF 50-55 percent, moderate MR, PA pressure 40 mmHg Hypertension Hyperlipidemias Tobaccoism, still an active smoker, advised to quit Strong family history of heart disease. Plan: * I reviewed her records in detail, examined her, and spoke with her in detail * Continues to have sanguineous drainage from surgical wound. Has received blood transfusions for post-op bleeding. Thinks may need repeat surgery for bleeding on Tuesday. Therefore, is not suitable for anticoag/antiplatelet therapy * Continue to monitor labs BILLIE DIAZ MD FACP [facility] Dec 11, 2016 15:56
[2016-12-11 16:00] VITALS: BP 142/63
[2016-12-11] MEDS: ALPRAZolam 0.25 MG (XANAX) TAB PO PRN (20:09)
[2016-12-11 23:51] VITALS: BP 149/68
[2016-12-12] MEDS: oxyCODONE/APAP 5/325MG (PERCOCET 5) TABLET PO PRN ×3 (02:38→14:58)
[2016-12-12] MEDS: RT-ALBUTEROL/IPRATROPIUM 3 ML (DUONEB) VIAL INH SCH ×6 (02:52→22:21)
[2016-12-12 05:38] LABS: BASOPHILS % (AUTO) 0 % (0-10); EOSINOPHILS % (AUTO) 0 % (0-10); LYMPHOCYTES % (AUTO) 13 % (12-44); MEAN CORPUSCULAR HEMOGLOBIN 29 PG (25-34); MEAN CORPUSCULAR HGB CONC 32 G/DL (32-36); MEAN CORPUSCULAR VOLUME 92 FL (80-99); MEAN PLATELET VOLUME 8.6 FL (7.4-10.4); MONOCYTES # (AUTO) 0.8 X 10^3 (0.0-1.0); MONOCYTES % (AUTO) 10 % (0-12); NEUTROPHILS % (AUTO) 77 % (42-75); PLATELET COUNT 275 10^3/uL (130-400); RED BLOOD COUNT 2.77 10^6/uL (4.35-5.85); RED CELL DISTRIBUTION WIDTH 14.2 % (10.0-14.5); WHITE BLOOD COUNT 7.8 10^3/uL (4.3-11.0)
[2016-12-12] MEDS: CYCLOBENZAPRINE 10 MG (FLEXERIL) TAB PO PRN ×3 (05:41→21:53)
[2016-12-12 06:05] LABS: ALANINE AMINOTRANSFERASE 28 U/L (0-55); ALBUMIN 3.1 GM/DL (3.2-4.5); ANION GAP 9 MMOL/L (5-14); ASPARTATE AMINO TRANSFERASE 23 U/L (5-34); BILIRUBIN,TOTAL 0.3 MG/DL (0.1-1.0); BLOOD UREA NITROGEN 14 MG/DL (7-18); BUN/CREATININE RATIO 24; CALCIUM 8.2 MG/DL (8.5-10.1); CARBON DIOXIDE 29 MMOL/L (21-32); CHLORIDE 100 MMOL/L (98-107); CREATININE SERUM 0.59 MG/DL (0.60-1.30); GFR ESTIMATED > 60; GLUCOSE 131 MG/DL (70-105); POTASSIUM 3.6 MMOL/L (3.6-5.0); SODIUM 138 MMOL/L (135-145); TOTAL PROTEIN 5.5 GM/DL (6.4-8.2)
[2016-12-12] MEDS: MULTIVIT W/MINERALS TAB (THERAGRAN M) PO SCH (06:19)
[2016-12-12 08:00] VITALS: BP 163/69
[2016-12-12] MEDS: DOCUSATE SODIUM 100 MG (COLACE) CAP PO SCH ×2 (08:40→21:46)
[2016-12-12] MEDS: methylPREDNISolone 40 MG/ML (Solu-MEDROL) VIAL IV SCH ×2 (08:40→21:47)
[2016-12-12] MEDS: FUROSEMIDE 40 MG/4 ML INJ (LASIX) IVP SCH (08:40)
[2016-12-12] MEDS: amLODIPine 5 MG (NORVASC) TAB PO SCH (08:40)
[2016-12-12] MEDS: FAMOTIDINE 20 MG (PEPCID) TABLET PO SCH ×2 (08:41→21:46)
[2016-12-12] MEDS: BISACODYL 5 MG (DULCOLAX) TABLET PO PRN (08:41)
[2016-12-12] MEDS: LACTULOSE SYRUP 10GM/15ML (ENULOSE) 30ML UDC PO SCH ×2 (08:41→21:47)
--- NOTE | 2016-12-12 09:52 | Physical Therapy Daily Note ---
PT Daily Note-Current Subjective Patient in bed pre tx, agrees to PT to go to the bathroom, she states she has to urinate very badly. She has pain of 7/10 in her back and left leg. Appearance Patient BTB post tx with nurse call, phone, tray, all needs met. Patient states she may need to have another surgery. Mental Status Patient Orientation: Normal For Age Attachments: Oxygen TLSO Transfers Functional Luna Measure 0=Not Assessed/NA 4=Minimal Assistance 1=Total Assistance 5=Supervision or Setup 2=Maximal Assistance 6=Modified Luna 3=Moderate Assistance 7=Complete IndependenceIRFPAI Quality Coding Scale 6 Independent with activity with or without an assistive device 5 Patient requires set up or clean up by helper. Patient completes activity by themselves 4 Supervision or touching assist (CGA). [place] provide cues , steadying assist 3 The helper provides less than half the effort to complete the activity 2 The helper provides more than half the effort to complete the activity 1 Dependent. The helper does all the effort to complete an activity 7 Patient refused to complete or attempt activity 9 The patient did not perform the activity before the current illness or injury 88 Not attempted due to Medical conditions or safety concerns Transfers (B, C, W/C) (FIM): 2 Scootin Rollin Supine to/from Sit: 2 Sit to/from Stand: 4 Patient needed assist with both legs getting back into bed. Weight Bearing Right Lower Extremity: Right Gait Training Gait (FIM): 1 Distance: 15'x2 Gait Level of Assist: 4 Gait Persons Needed: 1 Gait Assistive Device: FWW CGA, slow, antalgic ambulation Treatments bed mobility and transfers, ambulation Assessment Current Status: Fair Progress PT Yolk Spray Drier Goals Yolk Spray Drier Goals PT Detention Goals Time Frame: Dec 13, 2016 Transfers (B,C,W/C) (FIM): 4 Gait (FIM): 4 Gait distance (FIM): 3=150 ft Gait Assistive Device: FWW PT Plan Problem List Problem List: Activity Tolerance, Functional Strength, Safety, Balance, Gait, Transfer, Bed Mobility, ROM Treatment/Plan Treatment Plan: Continue Plan of Care Treatment Plan: Bed Mobility, Education, Functional Activity French, Functional Strength, Gait, Safety, Therapeutic Exercise, Transfers Treatment Duration: Dec 13, 2016 Frequency: 11 times per week Estimated Hrs Per Day: 1 hour per day Patient and/or Family Agrees t: Yes Safety Risks/Education Patient Education: Gait Training, Transfer Techniques, Correct Positioning, Reviewed Don/Doff Brace, Safety Issues Teaching Recipient: Patient Teaching Methods: Demonstration, Discussion Response to Teaching: Reinforcement Needed Time/GCodes Time In: 935 Time Out: 945 Total Billed Treatment Time: 10 Total Billed Treatment 1 visit GT 10' NAVID FRIEND PT Dec 12, 2016 09:52
[2016-12-12] MEDS: Glycopyrrolate/Formoterol Fum (Bevespi Aerosphere Inhaler) IH SCH ×2 (10:43→19:23)
--- NOTE | 2016-12-12 12:39 | Progress Note-Hospitalist ---
Progress Note HPI/CC on Admission CC: medical management following extensive lumbar spine surgery uncomplicated by Dr Hancock HPI: this is a 70-year-old white female clinic patient of Dr. Cancino in [facility] in [facility] the presents after an uncomplicated extensive lumbar spine surgery although she did have 1500 mL of blood loss and received 2 units of blood in OR but has since experienced hypotension upon arrival to floor necessitating transfer to ICU for hypovolumic hypotensive state in need of close monitoring and IVF boluses. Currently she is having difficulty mentating and having wheezing on exam so I placed emergent orders for ICU and contacted Dr Lubin regarding this case along with stat Neb treatment by RT. Pt states she is having back pain but otherwise she has no other issues although she feels weak. Upon my assessment she appears pale and slightly tachypneic although this is a subtle finding. Kam Ortega arrives in room and agrees with the plan for the transfer. Progress Notes/Assess & Plan Date Seen 12/12/16 Time Seen by Provider: 11:30 Admission Dx/Process Assessment: Hypotension due to hypovolemia from 1500 mL of blood loss during surgery status post 2 units of packed red blood cell transfusion but remains hypotensive needing transferred to the ICU for IV fluid boluses and possible pressor therapy COPD with current smoking and current wheezing on exam with mild tachypnea History of hypertension GERD HLP Diagonsis/Assessment & Plan Patient doing much better and breathing better Neb treatment helping Constipation finally resolved today Urinating well Pain is controlled CHALINO output will be assessed by Dr Hancock service and decision will be made whether or not she needs dural leak repair tomorrow or not No fever, vital signs stable, pleasant, oriented 3, pale but appears to be chronic, improved Regular rate and rhythm, wheezing all [place] are much improved and resolved coarseness on auscultation except RLL today No edema Laboratory Tests 12/12/16 05:19 Assessment: s/p post-op hypotension due to hypovolemia from 1500 mL of blood loss during surgery status post 2 units of packed red blood cell transfusion in OR but remained hypotensive necessitating transfer to the ICU 3 nights ago for IV fluid boluses of 5.5 liters but did not require pressor therapy COPD with current smoking and wheezing on exam on admit with mild tachypnea consulted Dr Lubin and placed on Nebs but now doing much better Evidence of mild volume overload with elevated BNP s/p Lasix by Dr Lubin and have consulted Dr Khanna as precaution Post op anemia due to acute blood loss doing much better History of hypertension and noted increase so starting Norvasc 5mg daily GERD HLP Hypokalemia Plan: Dr. Lubin's help is appreciated Dr. Khanna's help is appreciated Nebs treatments with DuoNeb Monitor closely PT/OT In-pt rehab? SW? Pt needs SB or IRU but patient appears to be not willing to proceed on with that plan but that is in her best interest Home O2 evaluation Surgery decision tomorrow MAGDALENE ANDRES DO Dec 12, 2016 12:39
[2016-12-12] MEDS: morphine INJ 4 MG/ML 1 ML (VIAL/SYRINGE) IVP PRN (13:52)
[2016-12-12 15:22] VITALS: BP 140/65
--- NOTE | 2016-12-12 15:45 | Progress Note-Cardiology ---
Cardiology SOAP Progress Note Subjective: No cp or palp or syncope Objective: I&O/Vital Signs Vital Sign - Last 12Hours 12/12/16 12/12/16 12/12/16 12/12/16 06:28 08:00 10:43 14:40 Temp 98.5 Pulse 98 Resp 18 B/P (MAP) 163/69 Pulse Ox 95 97 95 O2 Delivery Nasal Cannula Nasal Cannula Nasal Cannula Nasal Cannula O2 Flow Rate 3.00 4.00 3.00 3.00 12/12/16 12/12/16 14:41 15:22 Temp 99.4 Pulse 100 Resp 18 B/P (MAP) 140/65 Pulse Ox 94 93 O2 Delivery Nasal Cannula O2 Flow Rate 3.00 4.00 Weight (Pounds): 153 Weight (Ounces): 0.0 Weight (Calculated Kilograms): [id number] Constitutional: AAO x 3, well-developed Respiratory: No accessory muscle use, other (good bilat air entry) Cardiovascular: regular rate-rhythm, S1 and S2, systolic murmur (faint SARA at card base) Gastrointestional: No tender, soft, No guarding, No rebound Extremities: No clubbing, No cyanosis Neurologic/Psychiatric: oriented x 3, grossly intact, power is 5/5 both on sides Skin: No rash on exposed areas, No ulcerations on exposed areas Results/Procedures: Labs Laboratory Tests 12/12/16 05:19: White Blood Count 7.8, Red Blood Count 2.77L, Hemoglobin 8.1L, Hematocrit 26L, Mean Corpuscular Volume 92, Mean Corpuscular Hemoglobin 29, Mean Corpuscular Hemoglobin Concent 32, Red Cell Distribution Width 14.2, Platelet Count 275, Mean Platelet Volume 8.6, Neutrophils (%) (Auto) 77H, Lymphocytes (%) (Auto) 13 , Monocytes (%) (Auto) 10, Eosinophils (%) (Auto) 0, Basophils (%) (Auto) 0, Neutrophils # (Auto) 6.0, Lymphocytes # (Auto) 1.0, Monocytes # (Auto) 0.8, Eosinophils # (Auto) 0.0, Basophils # (Auto) 0.0, Sodium Level 138, Potassium Level 3.6, Chloride Level 100, Carbon Dioxide Level 29, Anion Gap 9, Blood Urea Nitrogen 14, Creatinine 0.59L, Estimat Glomerular Filtration Rate > 60, BUN/ Creatinine Ratio 24, Glucose Level 131H, Calcium Level 8.2L, Total Bilirubin 0.3 , Aspartate Amino Transf (AST/SGOT) 23, Alanine Aminotransferase (ALT/SGPT) 28, Alkaline Phosphatase 48, Total Protein 5.5L, Albumin 3.1L 12/12/16 09:50: Stool Occult Blood Immunoassay NEGATIVE Microbiology 12/08/16 Blood Culture - Preliminary, Resulted No growth Laboratory Tests 12/10/16 18:01 12/11/16 00:06 12/11/16 05:22 12/12/16 05:19 A/P: Assessment: S/p back surgery (S/p L3-S1 PSIF complicated by durotomy) on December 07, 2016. Notes continuing sanguineous drainage from surgical site Post-op anemia, worsening today compared to yesterday, [place] [facility]ary artery disease, stress test was done in September 2016 showing no ischemia or infarction with ejection fraction 84 percent; echocardiogram showed normal LV size and function with EF 50-55 percent, moderate MR, PA pressure 40 mmHg Hypertension Hyperlipidemias Tobaccoism, still an active smoker, advised to quit Strong family history of heart disease. Plan: * She has continued to have sanguineous drainage from surgical wound and anemia is worse today compared to yesterday. Has received blood transfusions for post- op bleeding. Thinks may need repeat surgery for bleeding on Tuesday. Therefore, is not suitable for anticoag/antiplatelet therapy * Continue to monitor labs BILLIE DIAZ MD FACP FAC CCDS Dec 12, 2016 15:45
--- NOTE | 2016-12-12 16:44 | Progress Note (SOAP) ---
Subjective Date Seen by Provider: Dec 12, 2016 Time Seen by Provider: 16:40 Subjective/Events-last exam DIONNE. Denies headaches. Has been OOB. no complaints. Objective Exam Vital Signs Date Time Temp Pulse Resp B/P (MAP) Pulse Ox O2 Delivery O2 Flow Rate FiO2 12/12/16 15:22 99.4 100 18 140/65 93 Nasal Cannula 4.00 12/12/16 14:41 94 3.00 12/12/16 14:40 Nasal Cannula 3.00 12/12/16 10:43 95 Nasal Cannula 3.00 12/12/16 08:00 98.5 98 18 163/69 97 Nasal Cannula 4.00 12/12/16 06:28 95 Nasal Cannula 3.00 12/12/16 02:52 96 Nasal Cannula 3.50 12/11/16 23:51 96.9 96 22 149/68 94 Nasal Cannula 4.00 12/11/16 21:13 93 Nasal Cannula 3.50 12/11/16 21:00 Nasal Cannula 3.50 12/11/16 19:37 96 Nasal Cannula 4.00 12/11/16 19:28 94 Nasal Cannula 4.00 Capillary Refill : General Appearance: No Apparent Distress Extremity: Other (5/5 motor, small one cm open area, francisco and steristrips applied, no active drainage) Results Lab Laboratory Tests 12/12/16 05:19: White Blood Count 7.8, Red Blood Count 2.77L, Hemoglobin 8.1L, Hematocrit 26L, Mean Corpuscular Volume 92, Mean Corpuscular Hemoglobin 29, Mean Corpuscular Hemoglobin Concent 32, Red Cell Distribution Width 14.2, Platelet Count 275, Mean Platelet Volume 8.6, Neutrophils (%) (Auto) 77H, Lymphocytes (%) (Auto) 13 , Monocytes (%) (Auto) 10, Eosinophils (%) (Auto) 0, Basophils (%) (Auto) 0, Neutrophils # (Auto) 6.0, Lymphocytes # (Auto) 1.0, Monocytes # (Auto) 0.8, Eosinophils # (Auto) 0.0, Basophils # (Auto) 0.0, Sodium Level 138, Potassium Level 3.6, Chloride Level 100, Carbon Dioxide Level 29, Anion Gap 9, Blood Urea Nitrogen 14, Creatinine 0.59L, Estimat Glomerular Filtration Rate > 60, BUN/ Creatinine Ratio 24, Glucose Level 131H, Calcium Level 8.2L, Total Bilirubin 0.3 , Aspartate Amino Transf (AST/SGOT) 23, Alanine Aminotransferase (ALT/SGPT) 28, Alkaline Phosphatase 48, Total Protein 5.5L, Albumin 3.1L 12/12/16 09:50: Stool Occult Blood Immunoassay NEGATIVE Microbiology 12/08/16 Blood Culture - Preliminary, Resulted No growth Assessment/Plan Assessment/Plan Assess & Plan/Chief Complaint ASSESSMENT: s/p L3-S1 PSIF complicated by durotomy PLAN: OOB with assist dressing changes PRN pain control probable d/c tuesday Clinical Quality Measures DVT/VTE Risk/Contraindication: Risk Factor Score Per Nursin RFS Level Per Nursing on Admit: 4+=Very High RICHIE DUBOIS DO Dec 12, 2016 16:44
[2016-12-12] MEDS: ALPRAZolam 0.25 MG (XANAX) TAB PO PRN (21:53)
[2016-12-13] VITALS: BP 146/70
[2016-12-13] MEDS: RT-ALBUTEROL/IPRATROPIUM 3 ML (DUONEB) VIAL INH SCH ×3 (02:32→11:04)
[2016-12-13] MEDS: morphine INJ 4 MG/ML 1 ML (VIAL/SYRINGE) IVP PRN (02:35)
--- NOTE | 2016-12-13 06:27 | Pulmonary Progress Note ---
Subjective Time Seen by Provider: 06:26 Subjective/Events-last exam Pulmonary nolan pt is doing much better. Exam Exam Vital Signs Date Time Temp Pulse Resp B/P (MAP) Pulse Ox O2 Delivery O2 Flow Rate FiO2 12/13/16 02:32 91 Nasal Cannula 2.50 12/13/16 00:00 99.1 94 18 146/70 93 Nasal Cannula 4.00 12/12/16 22:21 92 Nasal Cannula 2.50 12/12/16 21:00 Nasal Cannula 2.50 12/12/16 19:31 Nasal Cannula 2.50 12/12/16 19:23 94 Nasal Cannula 2.50 12/12/16 15:22 99.4 100 18 140/65 93 Nasal Cannula 4.00 12/12/16 14:41 94 3.00 12/12/16 14:40 Nasal Cannula 3.00 12/12/16 10:43 95 Nasal Cannula 3.00 12/12/16 09:00 Nasal Cannula 3.50 12/12/16 08:00 98.5 98 18 163/69 97 Nasal Cannula 4.00 12/12/16 06:28 95 Nasal Cannula 3.00 General Appearance: No Apparent Distress HEENT: PERRL/EOMI, Normal ENT Inspection, Pharynx Normal Neck: Non Tender Respiratory: No Accessory Muscle Use, No Respiratory Distress Cardiovascular: Normal Peripheral Pulses Peripheral Pulses: 2+ Dorsalis Pedis (R), 2+ Left Dors-Pedis (L) Gastrointestinal: non tender, soft, no organomegaly Extremity: Other (5/5 motor, small one cm open area, francisco and steristrips applied, no active drainage) Neurologic/Psychiatric: Alert, Oriented x3, No Motor/Sensory Deficits Skin: Normal Color, Warm/Dry Lymphatic: No Adenopathy Results Lab Laboratory Tests 12/12/16 05:19 Assessment/Plan Assessment/Plan s/p L3-S1 PSIF complicated by durotomy COPDAE with wheezing and probably pulmonary edema-- much improved -Solumedrol 40 Q 12 change to prednisone taper -SVNs -IS Pulmonary edema -- doubt PNA - no leukocytosis, no fever, no productive cough -Lasix 40mg daily Atelectasis -IS -increase activity Hypokalemia -replace Hx of lung nodules being followed by my office as outpatient -Pt will need CT scan as out patient 232 Clinical Quality Measures DVT/VTE Risk/Contraindication: Risk Factor Score Per Nursin RFS Level Per Nursing on Admit: 4+=Very High FELICIA LOPEZ DO Dec 13, 2016 06:27
[2016-12-13 06:42] LABS: BASOPHILS % (AUTO) 0 % (0-10); EOSINOPHILS % (AUTO) 0 % (0-10); LYMPHOCYTES # (AUTO) 1.1 X 10^3 (1.0-4.0); LYMPHOCYTES % (AUTO) 11 % (12-44); MEAN CORPUSCULAR HEMOGLOBIN 29 PG (25-34); MEAN CORPUSCULAR HGB CONC 32 G/DL (32-36); MEAN CORPUSCULAR VOLUME 92 FL (80-99); MEAN PLATELET VOLUME 8.4 FL (7.4-10.4); MONOCYTES # (AUTO) 0.8 X 10^3 (0.0-1.0); MONOCYTES % (AUTO) 8 % (0-12); NEUTROPHILS # (AUTO) 7.9 X 10^3 (1.8-7.8); NEUTROPHILS % (AUTO) 81 % (42-75); PLATELET COUNT 327 10^3/uL (130-400); RED BLOOD COUNT 2.94 10^6/uL (4.35-5.85); RED CELL DISTRIBUTION WIDTH 14.5 % (10.0-14.5); WHITE BLOOD COUNT 9.7 10^3/uL (4.3-11.0)
[2016-12-13 07:03] LABS: ALANINE AMINOTRANSFERASE 31 U/L (0-55); ALBUMIN 3.3 GM/DL (3.2-4.5); ANION GAP 7 MMOL/L (5-14); ASPARTATE AMINO TRANSFERASE 22 U/L (5-34); BILIRUBIN,TOTAL 0.4 MG/DL (0.1-1.0); BLOOD UREA NITROGEN 10 MG/DL (7-18); BUN/CREATININE RATIO 17; CALCIUM 8.4 MG/DL (8.5-10.1); CARBON DIOXIDE 32 MMOL/L (21-32); CHLORIDE 98 MMOL/L (98-107); GFR ESTIMATED > 60; GLUCOSE 131 MG/DL (70-105); POTASSIUM 3.4 MMOL/L (3.6-5.0); SODIUM 137 MMOL/L (135-145); TOTAL PROTEIN 5.8 GM/DL (6.4-8.2)
[2016-12-13] MEDS: Glycopyrrolate/Formoterol Fum (Bevespi Aerosphere Inhaler) IH SCH (07:06)
[2016-12-13] MEDS ORDERED: KCL 20 MEQ TAB (K-DUR) PO NR (07:38)
--- NOTE | 2016-12-13 07:40 | Progress Note (SOAP) ---
Subjective Date Seen by Provider: Dec 13, 2016 Time Seen by Provider: 07:37 Subjective/Events-last exam DIONNE. Doing well. Pain is controlled. Denies headaches, fevers/chills. Wants to go home. We discussed worrisome symptoms and the need to call should she have any. Objective Exam Vital Signs Date Time Temp Pulse Resp B/P (MAP) Pulse Ox O2 Delivery O2 Flow Rate FiO2 12/13/16 07:09 93 Nasal Cannula 2.50 12/13/16 07:06 93 Nasal Cannula 2.50 12/13/16 02:32 91 Nasal Cannula 2.50 12/13/16 00:00 99.1 94 18 146/70 93 Nasal Cannula 4.00 12/12/16 22:21 92 Nasal Cannula 2.50 12/12/16 21:00 Nasal Cannula 2.50 12/12/16 19:31 Nasal Cannula 2.50 12/12/16 19:23 94 Nasal Cannula 2.50 12/12/16 15:22 99.4 100 18 140/65 93 Nasal Cannula 4.00 12/12/16 14:41 94 3.00 12/12/16 14:40 Nasal Cannula 3.00 12/12/16 10:43 95 Nasal Cannula 3.00 12/12/16 09:00 Nasal Cannula 3.50 12/12/16 08:00 98.5 98 18 163/69 97 Nasal Cannula 4.00 Capillary Refill : General Appearance: No Apparent Distress Extremity: Other (5/5 motor crow LE, NVSI, dressing has some scant drainage on it, skin edges are together with francisco placed yesterday) Results Lab Laboratory Tests 12/12/16 09:50: Stool Occult Blood Immunoassay NEGATIVE 12/13/16 06:19: White Blood Count 9.7, Red Blood Count 2.94L, Hemoglobin 8.6L, Hematocrit 27L, Mean Corpuscular Volume 92, Mean Corpuscular Hemoglobin 29, Mean Corpuscular Hemoglobin Concent 32, Red Cell Distribution Width 14.5, Platelet Count 327, Mean Platelet Volume 8.4, Neutrophils (%) (Auto) 81H, Lymphocytes (%) (Auto) 11L , Monocytes (%) (Auto) 8, Eosinophils (%) (Auto) 0, Basophils (%) (Auto) 0, Neutrophils # (Auto) 7.9H, Lymphocytes # (Auto) 1.1, Monocytes # (Auto) 0.8, Eosinophils # (Auto) 0.0, Basophils # (Auto) 0.0, Sodium Level 137, Potassium Level 3.4L, Chloride Level 98, Carbon Dioxide Level 32, Anion Gap 7, Blood Urea Nitrogen 10, Creatinine 0.60, Estimat Glomerular Filtration Rate > 60, BUN/ Creatinine Ratio 17, Glucose Level 131H, Calcium Level 8.4L, Total Bilirubin 0.4 , Aspartate Amino Transf (AST/SGOT) 22, Alanine Aminotransferase (ALT/SGPT) 31, Alkaline Phosphatase 48, Total Protein 5.8L, Albumin 3.3 Microbiology 12/08/16 Blood Culture - Preliminary, Resulted No growth Assessment/Plan Assessment/Plan Assess & Plan/Chief Complaint ASSESSMENT: s/p L3-S1 PSIF complicated by durotomy PLAN: OOB with assist dressing changes PRN pain control stable for d/c home when ok with medicine f/u with dr alcantara one week Clinical Quality Measures DVT/VTE Risk/Contraindication: Risk Factor Score Per Nursin RFS Level Per Nursing on Admit: 4+=Very High RICHIE ALCANTARA DO Dec 13, 2016 07:40
--- NOTE | 2016-12-13 07:50 | Progress Note-Hospitalist ---
Subjective HPI/CC On Admission Date Seen by Provider: Dec 13, 2016 Time Seen by Provider: 07:35 CC: medical management following extensive lumbar spine surgery uncomplicated by Dr Hancock HPI: this is a 70-year-old white female clinic patient of Dr. Cancino in [facility] in [facility] the presents after an uncomplicated extensive lumbar spine surgery although she did have 1500 mL of blood loss and received 2 units of blood in OR but has since experienced hypotension upon arrival to floor necessitating transfer to ICU for hypovolumic hypotensive state in need of close monitoring and IVF boluses. Currently she is having difficulty mentating and having wheezing on exam so I placed emergent orders for ICU and contacted Dr Lubin regarding this case along with stat Neb treatment by RT. Pt states she is having back pain but otherwise she has no other issues although she feels weak. Upon my assessment she appears pale and slightly tachypneic although this is a subtle finding. Kam Ortega arrives in room and agrees with the plan for the transfer. Subjective/Events-last exam reports doing well. Dr Hancock just in and ok with DC today. Patient ready for DC today. Objective Exam Vital Signs Vital Sign - Last 12Hours 12/07/16 12/07/16 03:00 04:10 Temp 97.4 Resp 13 Capillary Refill : General Appearance: No Apparent Distress, WD/WN Respiratory: Lungs Clear, No Respiratory Distress Cardiovascular: Regular Rate, Rhythm, No Murmur Gastrointestinal: Normal Bowel Sounds, Non Tender, Soft Extremity: Non Tender, No Calf Tenderness Neurologic/Psychiatric: Alert, Oriented x3 Results/Procedures Lab Laboratory Tests 12/13/16 06:19 Assessment/Plan Assessment and Plan Assess & Plan/Chief Complaint Assessment: s/p post-op hypotension due to hypovolemia responsive to large volume IVF COPD with current smoking Post op anemia due to acute blood loss Benign Essential Hypertension GERD HLP Hypokalemia Plan: Discussed with Dr Hancock and Dr Lubni, ok for DC today Replaced K this AM Will DC IV Morphine Switch Lasix to PO Pain control with Percocet SW to assist with getting Oxygen at home HH for PT/OT ELIA RUBI MD Dec 13, 2016 07:50
[2016-12-13] MEDS ORDERED: CYCL10TA9 PO (07:56)
[2016-12-13] MEDS ORDERED: AMLO5TAB2 PO (07:56)
[2016-12-13] MEDS ORDERED: PRD10T PO (07:56)
[2016-12-13] MEDS ORDERED: FURO-125 PO (07:56)
[2016-12-13] MEDS ORDERED: OXYC-471 PO (07:56)
[2016-12-13 08:00] VITALS: BP 159/70
--- NOTE | 2016-12-13 08:00 | D/C HH Face to Face Order ---
D/C Face to Face Orders Instructions for Patient Patient Instructions/FollowUp: Please follow up with your PCP this week, Dr Hancock in [address] Lubin as directed. Physician to follow Patient: Dr. Cancino Discharge Diet for Home: Cardiac Diet, Low Sodium Diet Patient Data-Allergies,Ht & Wt Patient Allergies: Coded Allergies: tramadol (Unverified Allergy, Unknown, 12/06/16) per pt Height (Feet): 5 Height (Inches): 1.00 Weight (Pounds): 153 Weight (Ounces): 0.0 Home Health Need/Face to Face Date of Face to Face: Dec 13, 2016 Clinical Findings: Generalized weakness and fatigue, Pain with ambulation I have seen Pt [id number]: Yes Discharged To: Home Diagnosis/Conditions: Spinal stenosis Problems/Diagnosis/Condition: Patient is Homebound due to: Shahid fall risk due to instabilty, Muscle weakness , Pain w/ambulation, Shortness of breath/distress Homebound Status Due to the above stated illness, injury or surgical procedure (medical condition or diagnosis) and associated clinical findings, the patient is homebound because of his/her inability to leave home except with aid of a supportive device and/or person AND leaving the home requires a considerable and taxing effort or is medically contraindicated. Pt req the following assistanc: Aid of another person Home Health Nursing Orders Home Health Services Order: Physical Therapy-Evaluate & Treat Home Health Infusion Therapy Line Start Date: Dec 08, 2016 Line Start Time: 1400 Line Type: Midline Site Location: Arm-Upper Therapy Orders Therapy Orders: Physical Therapy, PT to assess for OT Therapy Specific Orders: Eval assistive deivces, Teach enviro modifications/ safety, Gait training, Increase strength/endurance, Provider maintenance therapy Certify Stmt I certify that this patient is under my care and that I, a nurse practitioner or a physician; a sales and marketing assistant working with me, had a face to face encounter that - meets the physician face to face encounter requirements with this patient as dated. ELIA RUBI MD Dec 13, 2016 08:00
[2016-12-13] MEDS: DOCUSATE SODIUM 100 MG (COLACE) CAP PO SCH (08:29)
[2016-12-13] MEDS: FAMOTIDINE 20 MG (PEPCID) TABLET PO SCH (08:29)
[2016-12-13] MEDS: amLODIPine 5 MG (NORVASC) TAB PO SCH (08:29)
[2016-12-13] MEDS: LACTULOSE SYRUP 10GM/15ML (ENULOSE) 30ML UDC PO SCH (08:29)
[2016-12-13] MEDS: MULTIVIT W/MINERALS TAB (THERAGRAN M) PO SCH (08:29)
--- NOTE | 2016-12-13 08:54 | Cardiology Progress Note ---
Subjective Time Seen by Provider: 08:52 Subjective/Events-last exam Patient is sitting up in bed, no new complaint. Denies any CP or dyspnea. Review of Systems General: No Chills, No Night Sweats, No Fatigue, No Malaise, No Appetite, No Other HEENT: No Head Aches, No Visual Changes, No Eye Pain, No Ear Pain, No Dysphasia , No Sinus Congestion, No Post Nasal Drip, No Sore Throat, No Other Pulmonary: No Dyspnea, No Cough, No Pleuritic Chest Pain, No Other Cardiovascular: No: Chest Pain, Palpitations, Orthopnea, Paroxysmal Noc. Dyspnea, Edema, Lt Headedness, Other Gastrointestinal: No: Nausea, Vomiting, Abdominal Pain, Diarrhea, Constipation , Melena, Hematochezia, Other Genitourinary: No Dysuria, No Frequency, No Incontinence, No Hematuria, No Retention, No Other Musculoskeletal: No: other, neck pain, shoulder pain, arm pain, back pain, hand pain, leg pain, foot pain Neurological: Weakness, No: Numbness, Change in speech, Confusion Objective-Cardiology Exam Last Set of Vital Signs Vital Signs 12/13/16 12/13/16 12/13/16 00:00 07:09 08:00 Temp 99.1 Pulse 94 Resp 18 B/P (MAP) 146/70 Pulse Ox 93 O2 Delivery Nasal Cannula O2 Flow Rate 2.50 Capillary Refill : I&O Intake and Output 12/14/16 00:00 Intake Total 0 ml Output Total 725 ml Balance -725 ml Intake Oral 0 ml Output Urine Total 725 ml General: Alert, Oriented X3, Cooperative HEENT: Atraumatic, PERRLA Neck: Supple, No JVD, No Thyromegaly Lungs: Clear to Auscultation, Normal Air Movement Heart: Regular Rate, Normal S1, Normal S2, No Murmurs Abdomen: Normal Bowel Sounds, Soft, No Tenderness, No Hepatosplenomegaly, No Masses Extremities: No Clubbing, No Cyanosis, No Edema, Normal Pulses, No Tenderness/ Swelling Skin: No Rashes, No Breakdown, No Significant Lesion Neuro: Normal Speech, Normal Tone, Sensation Intact Psych/Mental Status: Mental Status NL, Mood NL Results Lab Laboratory Tests 12/13/16 06:19 A/P-Cardiology Admission Diagnosis Spinal stenosis Anemia Coronary artery disease Shortness of breath Hypotension Assessment/Plan Spinal Stenosis, S/p L3-S1 PSIF complicated by durotomy, surgery was done on December 07, 2016, recovering slowly. Feeling better today. Asking to go home. Anemia, postoperatively, H/H stable, managed by primary care physician. Shortness of breath, has history of dyspnea on exertion, history of tobaccoism and COPD, breathing better today. Coronary artery disease, reporting cardiac catheterization done about 15 years ago, nonobstructive disease, treated conservatively, stress test was done in September 2016 showing no ischemia or infarction with ejection fraction 84 percent , echocardiogram showed normal LV size and function with EF 50-55 percent, moderate MR, PA pressure 40 mmHg. Continue to monitor as an outpatient Hypertension, good control, continue to monitor blood pressure Hyperlipidemia, monitor lipids Tobaccoism, still an active smoker, discussed smoking cessation. Strong family history of heart disease. OK to discharge from cardiology standpoint. Follow up in 1-2 weeks in our office. Clinical Quality Measures DVT/VTE Risk/Contraindication: Risk Factor Score Per Nursin RFS Level Per Nursing on Admit: 4+=Very High THOMAS PATE Dec 13, 2016 08:54
[2016-12-13] MEDS ORDERED: predniSONE 10 MG TAB PO SCH (09:00)
[2016-12-13] MEDS: FUROSEMIDE 40 MG/4 ML INJ (LASIX) IVP SCH (09:05)
--- NOTE | 2016-12-13 09:11 | Cardiology Progress Note ---
Subjective Date Seen by Provider: Dec 13, 2016 Time Seen by Provider: 09:09 Subjective/Events-last exam patient is laying down in bed, eating breakfast. Denied any chest pain or shortness of breath. Review of Systems General: No Chills, No Night Sweats, No Fatigue, No Malaise, No Appetite, No Other HEENT: No Head Aches, No Visual Changes, No Eye Pain, No Ear Pain, No Dysphasia , No Sinus Congestion, No Post Nasal Drip, No Sore Throat, No Other Pulmonary: No Dyspnea, No Cough, No Pleuritic Chest Pain, No Other Cardiovascular: No: Chest Pain, Palpitations, Orthopnea, Paroxysmal Noc. Dyspnea, Edema, Lt Headedness, Other Objective-Cardiology Exam Last Set of Vital Signs Vital Signs Capillary Refill : I&O Intake and Output 12/14/16 00:00 Intake Total 0 ml Output Total 725 ml Balance -725 ml Intake Oral 0 ml Output Urine Total 725 ml General: Alert, Oriented X3, Cooperative HEENT: Atraumatic, PERRLA Neck: Supple, No JVD, No Thyromegaly Lungs: Clear to Auscultation, Normal Air Movement Heart: Regular Rate, Normal S1, Normal S2, No Murmurs Abdomen: Normal Bowel Sounds, Soft, No Tenderness, No Hepatosplenomegaly, No Masses Extremities: No Clubbing, No Cyanosis, No Edema, Normal Pulses, No Tenderness/ Swelling Skin: No Rashes, No Breakdown, No Significant Lesion Neuro: Normal Speech, Normal Tone, Sensation Intact Psych/Mental Status: Mental Status NL, Mood NL Results Lab Laboratory Tests 12/13/16 06:19 A/P-Cardiology Admission Diagnosis Spinal stenosis Anemia Coronary artery disease Shortness of breath Hypotension Assessment/Plan Spinal Stenosis, S/p L3-S1 PSIF complicated by durotomy, surgery was done on December 07, 2016, improving, managed by primary care physician. Anemia, postoperatively, received blood transfusion, better at this time, monitored by primary care physician. Shortness of breath, has history of dyspnea on exertion, history of tobaccoism and COPD, patient is reporting improvement. Back to baseline at this time. Coronary artery disease, reporting cardiac catheterization done about 15 years ago, nonobstructive disease, treated conservatively, stress test was done in September 2016 showing no ischemia or infarction with ejection fraction 84 percent , echocardiogram showed normal LV size and function with EF 50-55 percent, moderate MR, PA pressure 40 mmHg. Continue to monitor as an outpatient Hypertension, good control, continue to monitor blood pressure Hyperlipidemia, monitor lipids Tobaccoism, still an active smoker, discussed smoking cessation. Strong family history of heart disease. OK to discharge from cardiology standpoint. Follow up in 1-2 weeks in our office. Clinical Quality Measures DVT/VTE Risk/Contraindication: Risk Factor Score Per Nursin RFS Level Per Nursing on Admit: 4+=Very High ORTEGA SCHAEFFER MD Dec 13, 2016 09:11
--- NOTE | 2016-12-13 09:47 | Physical Therapy Daily Note ---
PT Daily Note-Current Subjective Patient is laying in bed upon PT entering the room. Patient reports that she is going home today and is planning on being picked up by a family member around 10 a.m. Pain Numeric Pain Scale: 5-Moderate Pain Location: Left Location Body Site: Back Pain Description: Ache, Radiating Comment: Patient reports pain on the left side of her back shooting into L LE. Appearance Patient appears in good health. Mental Status Patient Orientation: Normal For Age Attachments: Oxygen Transfers Functional Needles Measure 0=Not Assessed/NA 4=Minimal Assistance 1=Total Assistance 5=Supervision or Setup 2=Maximal Assistance 6=Modified Needles 3=Moderate Assistance 7=Complete IndependenceIRFPAI Quality Coding Scale 6 Independent with activity with or without an assistive device 5 Patient requires set up or clean up by helper. Patient completes activity by themselves 4 Supervision or touching assist (CGA). [place] provide cues , steadying assist 3 The helper provides less than half the effort to complete the activity 2 The helper provides more than half the effort to complete the activity 1 Dependent. The helper does all the effort to complete an activity 7 Patient refused to complete or attempt activity 9 The patient did not perform the activity before the current illness or injury 88 Not attempted due to Medical conditions or safety concerns Transfers (B, C, W/C) (FIM): 5 Supine to/from Sit: 5 Sit to/from Stand: 5 Patient performs supine to sit with SBA and sit to stand with CGA from PT. Weight Bearing Right Lower Extremity: Right Full Weight Bearing Full Weight Bearing Gait Training Gait (FIM): 1 Distance (FIM): 1=up to 49 ft Distance: 20' Gait Level of Assist: 5 Gait Persons Needed: 1 Gait Assistive Device: FWW Patient ambulates with CGA from PT. Exercises Seated Therapy Exercises: Ankle pumps (bilateral), Long arc quads (bilateral), Hip flexion (bilateral) Seated Reps: 15 Standing: Marching (bilateral) Standing Reps: 15 Assessment Current Status: Good Progress Patient has shown good progress with transfers and pain tolerance post surgery. Patient has instructions for discharge on this date. PT Obstetrics Nurse Goals Obstetrics Nurse Goals PT Assisted Goals Time Frame: Dec 13, 2016 Transfers (B,C,W/C) (FIM): 4 Gait (FIM): 4 Gait distance (FIM): 3=150 ft Gait Assistive Device: FWW PT Plan Problem List Problem List: Activity Tolerance, Functional Strength, Gait, Bed Mobility Treatment/Plan Treatment Plan: Continue Plan of Care, Discontinue PT Treatment Plan: Bed Mobility, Education, Functional Activity French, Functional Strength, Gait, Safety, Therapeutic Exercise, Transfers Treatment Duration: Dec 13, 2016 Frequency: 11 times per week Estimated Hrs Per Day: 1 hour per day Patient and/or Family Agrees t: Yes Discharge Recommendations Therapy D/C Recommendations: Home w/ Family Support, Physical Therapy Home Care Equpiment Recommendations-D/C: Oxygen Time/GCodes Time In: 928 Time Out: 940 Total Billed Treatment Time: 12 Total Billed Treatment 1 visit FA 12 min RAMAKRISHNA ALEXANDER PT Dec 13, 2016 09:47
== END 2016-12-13 11:36 | disposition home health service (06) | DRG 454 ==
LOC: 4TH 07:45 → SURG 07:46 → 4TH 16:15 → ICU 18:00 → 4TH 12-10 11:54
PROVIDERS: ADMIT Orthopaedic Surgery; ATTEND Orthopaedic Surgery
PROC: 0SG1071 Fusion of 2 or more Lumbar Vertebral Joints with Autologous Tissue Substitute, Posterior Approach, Posterior Column, Open Approach (ICD-10-PCS; 2016-12-06)
PROC: 0SG3071 Fusion of Lumbosacral Joint with Autologous Tissue Substitute, Posterior Approach, Posterior Column, Open Approach (ICD-10-PCS; 2016-12-06)
PROC: 0SB00ZZ Excision of Lumbar Vertebral Joint, Open Approach (ICD-10-PCS; 2016-12-06)
PROC: 00QT0ZZ Repair Spinal Meninges, Open Approach (ICD-10-PCS; 2016-12-06)
PROC: 0SG10A0 Fusion of 2 or more Lumbar Vertebral Joints with Interbody Fusion Device, Anterior Approach, Anterior Column, Open Approach (ICD-10-PCS; principal; 2016-12-06 10:13)
DX: M48.061 Spinal stenosis, lumbar region without neurogenic claudication (principal); M99.73 Connective tissue and disc stenosis of intervertebral foramina of lumbar region; M85.68 Other cyst of bone, other site; M51.16 Intervertebral disc disorders with radiculopathy, lumbar region; G97.41 Accidental puncture or laceration of dura during a procedure; D62 Acute posthemorrhagic anemia; J44.1 Chronic obstructive pulmonary disease with (acute) exacerbation; J98.11 Atelectasis; I95.81 Postprocedural hypotension; R50.82 Postprocedural fever; E86.1 Hypovolemia; I10 Essential (primary) hypertension; E78.00 Pure hypercholesterolemia, unspecified; M19.91 Primary osteoarthritis, unspecified site; E87.70 Fluid overload, unspecified; I25.10 Atherosclerotic heart disease of native coronary artery without angina pectoris; G62.9 Polyneuropathy, unspecified; K21.9 Gastro-esophageal reflux disease without esophagitis; E87.6 Hypokalemia; E83.39 Other disorders of phosphorus metabolism; I34.0 Nonrheumatic mitral (valve) insufficiency; R91.8 Other nonspecific abnormal finding of lung field; K59.00 Constipation, unspecified; Z82.49 Family history of ischemic heart disease and other diseases of the circulatory system; Z87.891 Personal history of nicotine dependence
CPT/HCPCS: 36415; 71010; 72100; 76937; 80048; 80053; 81000; 82274; 83605; 83735; 83880; 84100; 84132; 85007; 85014; 85018; 85025; 85027; 86920; 87040; 94640; 94664; 94760

== ENCOUNTER 2017-11-28 10:55 | Outpatient (CLI) | payer MEDICARE, OTHER ==
[~2017-11-28] VITALS: Ht 154.9 cm; Wt 60.8 kg
[~2017-11-28 10:55] MED LIST changes: +AMLO5TAB7 PO; +CYCL10TA9 PO; +FURO-125 PO; -METO-274 PO; +METO-395 PO; +OXYC-471 PO; +PRD10T PO
[2017-11-28 11:07] VITALS: BP 161/77
[2017-11-28] MEDS ORDERED: RT-ALBUINH IH (11:15)
[2017-11-28 11:44] LABS: BASOPHILS % (AUTO) 1 % (0-10); EOSINOPHILS # (AUTO) 0.1 10^3/uL (0.0-0.3); EOSINOPHILS % (AUTO) 3 % (0-10); HEMATOCRIT 37 % (35-52); HEMOGLOBIN 12.8 G/DL (11.5-16.0); LYMPHOCYTES # (AUTO) 1.2 X 10^3 (1.0-4.0); LYMPHOCYTES % (AUTO) 34 % (12-44); MEAN CORPUSCULAR HEMOGLOBIN 31 PG (25-34); MEAN CORPUSCULAR HGB CONC 34 G/DL (32-36); MEAN CORPUSCULAR VOLUME 91 FL (80-99); MEAN PLATELET VOLUME 9.4 FL (7.4-10.4); MONOCYTES # (AUTO) 0.5 X 10^3 (0.0-1.0); MONOCYTES % (AUTO) 15 % (0-12); NEUTROPHILS # (AUTO) 1.7 X 10^3 (1.8-7.8); NEUTROPHILS % (AUTO) 48 % (42-75); PLATELET COUNT 234 10^3/uL (130-400); RED BLOOD COUNT 4.11 10^6/uL (4.35-5.85); RED CELL DISTRIBUTION WIDTH 14.4 % (10.0-14.5); WHITE BLOOD COUNT 3.6 10^3/uL (4.3-11.0)
[2017-11-28 12:06] LABS: BUN/CREATININE RATIO 19; CALCIUM 9.7 MG/DL (8.5-10.1); CARBON DIOXIDE 24 MMOL/L (21-32); CHLORIDE 102 MMOL/L (98-107); CREATININE SERUM 0.68 MG/DL (0.60-1.30); GFR ESTIMATED > 60; GLUCOSE 98 MG/DL (70-105); POTASSIUM 3.7 MMOL/L (3.6-5.0); SODIUM 138 MMOL/L (135-145)
== END 2017-11-28 11:30 | disposition home or self-care (01) ==
LOC: PREOP 10:55
PROVIDERS: ATTEND Orthopaedic Surgery
DX: Z01.812 Encounter for preprocedural laboratory examination (principal); Z11.2 Encounter for screening for other bacterial diseases; M48.061 Spinal stenosis, lumbar region without neurogenic claudication
CPT/HCPCS: 36415; 80048; 85025; 87081

== ENCOUNTER 2017-12-05 09:30 | Inpatient (IN) | payer MEDICARE, OTHER ==
[~2017-12-05] VITALS: Ht 154.9 cm; Wt 60.8 kg
[~2017-12-05 09:30] MED LIST changes: +RT-ALBUINH IH
[2017-12-05 10:00] VITALS: BP 140/66
[2017-12-05] MEDS: LACTATED RINGERS 1,000 ML IV PRN ×5 (10:15→20:40)
[2017-12-05] MEDS ORDERED: ceFAZolin 2 GM IV Premixed 50 ML IV ONE (10:30)
[2017-12-05] MEDS ORDERED: BACITRACIN 100,000 UNIT/NS 1000 ML POUR BOTTLE IR ONE ×2 (10:45)
[2017-12-05] MEDS ORDERED: proPOfol 200 MG/20 ML (DIPRIVAN) VIAL IV ONE (13:02)
[2017-12-05] MEDS ORDERED: SEVOFLURANE (ULTANE) 15 ML INHAL SOLN ONE (13:02)
[2017-12-05] MEDS ORDERED: fentaNYL INJECTION 100 MCG/2 ML AMP ONE (13:02)
[2017-12-05] MEDS ORDERED: ONDANSETRON 4 MG/2 ML (SDV) Z0FRAN ONE ×2 (13:02→15:20)
[2017-12-05] MEDS ORDERED: ROCURONIUM 10 MG/ML 5 ML SYRINGE IV ONE (13:02)
[2017-12-05] MEDS ORDERED: DEXAMETHASONE 10 MG/ML (DECADRON) 1 ML VIAL ONE (13:02)
[2017-12-05] MEDS ORDERED: PROPOFOL INJECTION 50 ML IV ONE (13:09)
[2017-12-05] MEDS ORDERED: BUP/EPI 0.5% 1:200,000 (SENSORCAINE) 30 ML VIAL ONE (13:13)
[2017-12-05] MEDS ORDERED: PHENYLEPHRINE 100 MCG/ML 10 ML (ANESTHESIA) SYR ONE (14:27)
[2017-12-05] MEDS ORDERED: VANCOMYCIN 1000 MG/VIAL ONE (14:36)
[2017-12-05] MEDS ORDERED: NEOSTIGMINE 1 MG/ML 5 ML SYRINGE ONE (14:46)
[2017-12-05] MEDS ORDERED: GLYCOPYRROLATE 0.2 MG/ML (ROBINUL) 2 ML VIAL ONE (14:46)
[2017-12-05] MEDS ORDERED: LIDOCAINE PF 2% 5 ML (XYLOCAINE) VIAL ONE (15:20)
[2017-12-05] MEDS ORDERED: morphine INJ 10 MG/ML 1ML (SYR OR VIAL) ONE (15:20)
[2017-12-05] MEDS ORDERED: LACTATED RINGERS 3,000 ML IV ONE (15:38)
[2017-12-05] MEDS ORDERED: ONDANSETRON 4 MG/2 ML (SDV) Z0FRAN IV PRN (16:00)
[2017-12-05] MEDS ORDERED: ALPRAZolam 0.25 MG (XANAX) TAB PO PRN (16:00)
[2017-12-05] MEDS ORDERED: morphine INJ 4 MG/ML 1 ML (VIAL/SYRINGE) IVP PRN (16:00)
[2017-12-05] MEDS ORDERED: ACETAMINOPHEN 325 MG TABLET PO PRN (16:00)
[2017-12-05] MEDS ORDERED: METOCLOPRAMIDE INJ 10 MG/2 ML (REGLAN) IV PRN (16:00)
[2017-12-05] MEDS ORDERED: oxyCODONE/APAP 5/325MG (PERCOCET 5) TABLET PO PRN (16:00)
[2017-12-05] MEDS ORDERED: BISACODYL 10 MG SUPP (DULCOLAX) PR PRN (16:00)
[2017-12-05] MEDS ORDERED: METOCLOPRAMIDE 10 MG (REGLAN) TAB PO PRN (16:00)
[2017-12-05] MEDS ORDERED: BISACODYL 5 MG (DULCOLAX) TABLET PO PRN (16:00)
[2017-12-05] MEDS ORDERED: morphine INJ 10 MG/ML 1ML (SYR OR VIAL) IVP ONE (16:15)
[2017-12-05] MEDS ORDERED: ONDANSETRON 4 MG/2 ML (SDV) Z0FRAN IVP PRN (16:15)
[2017-12-05] MEDS ORDERED: HYDROmorphone 2 MG/ML VIAL (DILAUDID) ONE (16:25)
[2017-12-05] MEDS ORDERED: HYDROmorphone 2 MG/ML VIAL (DILAUDID) IV ONE (16:30)
[2017-12-05 17:08] VITALS: BP 116/56
[2017-12-05] MEDS: RT-ALBUTEROL SULF 2.5 MG/3 ML PRE-MIX VIAL INH SCH ×2 (18:28→21:26)
[2017-12-05] MEDS ORDERED: FLU QUADRIvalent (5+ YOA) 2018-2019 (AFLURIA) 0.5 ML IM ONE (19:15)
[2017-12-05] MEDS: ceFAZolin INJECTION 1,000 MG in NS (IVPB) 50 ML IV SCH (20:39)
[2017-12-05 20:40] VITALS: BP 110/58
[2017-12-05] MEDS: SIMvastatin 40 MG (ZOCOR) TAB PO SCH (20:40)
[2017-12-05] MEDS: HYDROcodone/APAP 5 MG/325 MG (LORTAB) TAB PO PRN (20:54)
[2017-12-05] MEDS: CYCLOBENZAPRINE 10 MG (FLEXERIL) TAB PO PRN (20:54)
[2017-12-05] MEDS ORDERED: NON-FORMULARY MEDICATION 1 EA EA (Glycopyrrolate/Formoterol Fum (Bevespi Aerosphere Inhale IH SCH (21:00)
[2017-12-05] MEDS ORDERED: FAMOTIDINE 20 MG (PEPCID) TABLET PO SCH (21:00)
[2017-12-06 00:06] VITALS: BP 135/63
[2017-12-06] MEDS: HYDROcodone/APAP 5 MG/325 MG (LORTAB) TAB PO PRN ×4 (00:40→23:56)
--- NOTE | 2017-12-06 02:43 | OPERATIVE REPORT ---
DATE OF SERVICE: 12/05/2017 SURGEON: Adria Hancock DO ASSESSMENT CLINICIAN: ELLIS Grewal. This is a medically necessary procedure. Assistance was necessary for retraction of vital neurovascular structures. Without an respiratory care assistant, the procedure would not be possible. PREOPERATIVE DIAGNOSES: 1. Lumbar radiculopathy. 2. Adjacent segment disease. 3. Neurogenic claudication. 4. L2 compression fracture. 5. Osteoporosis. POSTOPERATIVE DIAGNOSES: 1. Lumbar radiculopathy. 2. Adjacent segment disease. 3. Neurogenic claudication. 4. L2 compression fracture. 5. Osteoporosis. PROCEDURES PERFORMED: 1. Exploration of fusion. 2. Revision laminectomy, L2-3. 3. Transforaminal lumbar interbody fusion, L2-3. 4. Application of posterior instrumentation L2-3. 5. Posterior spinal fusion, L2-3. 6. Use of human Allograft for spine. 7. Use of local bone autograft. 8. Application of titanium cage, L2-3. 9. L2 kyphoplasty. COMPLICATIONS: None. SPECIMEN SENT: None. DRAINS PLACED: Hemovac. ANESTHESIA: General endotracheal anesthesia with local anesthetic. HISTORY OF PRESENT ILLNESS: The patient is a very pleasant 71-year-old female who had previously undergone an L3-S1 instrumented fusion with interbodies. She had adjacent segment disease and severe radiculopathy. She failed all conservative measures and did wish to proceed with extension of that fusion. She understood the risks and benefits. DESCRIPTION OF PROCEDURE: The patient was identified by name on wrist band in the preoperative holding area. Her operative site was signed, consent was signed. SCDs were placed. Neuro monitoring was hooked up and antibiotics were started. She was taken to the operating room theater and placed under general endotracheal tube anesthesia and then transferred to the operating room table in the prone position. She was prepped and draped in the usual sterile fashion. Formal timeout was conducted. At this point, skin and soft tissue were then infiltrated with 0.5% Marcaine with epinephrine. I made a midline incision. I worked my way through significant scar tissue exposing the existing hardware at L3-4 as well as the pedicle entry points at L2. I placed pedicle screws bilaterally under x-ray fluoroscopy guidance. I tested those with EMG neuro monitoring. They were in good position. I affirmed their positioning with AP and lateral x-ray. They were in good position. Please note that prior to placing those pedicle screws, I did a kyphoplasty and so I predrilled my pedicle screws and then I filled and I placed a kyphoplasty balloon on the left and the right into the vertebral body, and inflated that balloon. I then removed the balloon and I filled the L2 vertebral body with cement. At that point, I placed the screws. I did this to augment the screws and also to augment the vertebral body, which had an acute fracture. Once those screws and cement were in place, I turned my attention to the decompression, which I did from the left side. I worked through significant scar to perform a complete left facetectomy identifying the thecal sac and exiting nerve root. I was then able to retract the thecal sac medially. I performed an annulotomy and did a complete diskectomy. I sized and chose the appropriate titanium interbody cage packed with human allografts and local bone autograft and I seated that cage into the midline position. At this point, I obtained NuVasive connector and I placed the connector on the left into the right. I connected a new 60 mm andre to the new L2 pedicle screws. The connector connected the two rods. I placed all setscrews, I finally tightened the set screws. I placed a subfascial Hemovac drain. I maintained hemostasis. I decorticated the remaining posterior bony elements and I packed human allograft and local bone autograft in the left and right gutter to promote posterior spinal fusion. I irrigated thoroughly. I closed the wound in the usual fashion using 0 Vicryl, followed by 2-0 Vicryl, followed by francisco for skin. I applied dressings, took the patient in the supine position to the PACU where she awoke without incident. She tolerated the procedure well. PLAN: At this time is to get the patient out of bed on postop day #1. Discontinue her dressings in 2 weeks. We will have her out of bed on postop day #1. We will discontinue her drain and Gabriel catheter per my protocol. Please note instrumentation utilized was NuVasive. Neuro monitoring was stable throughout the procedure. Job ID: [id number] DocumentID: [id number] Dictated Date: 12/05/2017 15:35:28 Director Of Health Care Marketing Date: 12/06/2017 02:42:57 Dictated By: ADRIA HANCOCK DO
[2017-12-06] MEDS: ceFAZolin INJECTION 1,000 MG in NS (IVPB) 50 ML IV SCH ×2 (04:04→11:39)
[2017-12-06 04:11] VITALS: BP 132/62
--- NOTE | 2017-12-06 05:05 | Progress Note (SOAP) ---
Subjective Date Seen by a Provider: Dec 06, 2017 Time Seen by a Provider: 05:02 Subjective/Events-last exam POD #1, s/p L2-3 TLIF, PSF, L2 kyphoplasty VSS, Afebrile Earlier tonight patient found in the bathroom with oxygen off, and smoking Review of Systems Pulmonary: Cough Gastrointestinal: No: Nausea Musculoskeletal: back pain; No: leg pain Neurological: No: Weakness Objective Exam Vital Signs Date Time Temp Pulse Resp B/P (MAP) Pulse Ox O2 Delivery O2 Flow Rate FiO2 12/06/17 00:06 97.6 71 19 135/63 (87) 96 Nasal Cannula 4.00 12/05/17 21:26 96 Nasal Cannula 4.00 12/05/17 20:40 96.0 65 18 110/58 (75) 93 Nasal Cannula 4.00 12/05/17 18:28 Nasal Cannula 4.00 12/05/17 17:08 96.0 69 18 116/56 (76) 95 Nasal Cannula 4.00 12/05/17 17:05 Nasal Cannula 4.00 12/05/17 10:00 97.7 70 20 140/66 (90) 95 Room Air I & O 12/06/17 07:00 Intake Total 3530 ml Output Total 300 ml Balance 3230 ml Capillary Refill : Less Than 3 Seconds General Appearance: No Apparent Distress Respiratory: No Respiratory Distress Cardiovascular: No Edema, Normal Peripheral Pulses Gastrointestinal: non tender, soft Extremity: Non Tender Neurologic/Psychiatric: Alert, Oriented x3, No Motor/Sensory Deficits, Normal Mood/Affect, tool supervisor II-XII Norm as Tested Skin: Other (Dressing with moderate amount of blood saturation) Assessment/Plan Assessment/Plan Assess & Plan/Chief Complaint Lumbar stenosis with radiculopathy Compression fracture Tobacco abuse Oxygen dependancy S/P L2-3 TLIF, PSF, with L2 kyphoplasty Clinical Quality Measures DVT/VTE Risk/Contraindication: Risk Factor Score Per Nursin RFS Level Per Nursing on Admit: 4+=Very High SAVANNA SPIVEY Dec 06, 2017 05:05
[2017-12-06] MEDS: MULTIVIT W/MINERALS TAB (THERAGRAN M) PO SCH (06:04)
[2017-12-06] MEDS: CYCLOBENZAPRINE 10 MG (FLEXERIL) TAB PO PRN ×3 (06:04→23:56)
[2017-12-06] MEDS: PANTOPRAZOLE 40 MG (PROTONIX) TAB PO SCH (06:04)
[2017-12-06 06:10] LABS: HEMOGLOBIN 9.7 G/DL (11.5-16.0); MEAN PLATELET VOLUME 9.4 FL (7.4-10.4); RED BLOOD COUNT 3.16 10^6/uL (4.35-5.85); RED CELL DISTRIBUTION WIDTH 13.9 % (10.0-14.5); WHITE BLOOD COUNT 12.5 10^3/uL (4.3-11.0)
[2017-12-06 06:32] LABS: ALANINE AMINOTRANSFERASE 16 U/L (0-55); ALBUMIN 3.6 GM/DL (3.2-4.5); ALKALINE PHOSPHATASE 39 U/L (40-136); BILIRUBIN,TOTAL 0.3 MG/DL (0.1-1.0); BUN/CREATININE RATIO 24; CALCIUM 8.5 MG/DL (8.5-10.1); CARBON DIOXIDE 25 MMOL/L (21-32); CHLORIDE 101 MMOL/L (98-107); CREATININE SERUM 0.71 MG/DL (0.60-1.30); GFR ESTIMATED > 60; GLUCOSE 140 MG/DL (70-105); SODIUM 135 MMOL/L (135-145); TOTAL PROTEIN 5.8 GM/DL (6.4-8.2)
--- NOTE | 2017-12-06 06:52 | Anesthesia-General Post-Op ---
General Patient Condition Mental Status/LOC: Same as Preop Cardiovascular: Satisfactory Nausea/Vomiting: Absent Respiratory: Satisfactory Pain: Controlled Complications: Absent Post Op Complications Complications None Follow Up Care/Instructions Patient Instructions None needed. Anesthesia/Patient Condition Patient Condition Patient is doing well, no complaints, stable vital signs, no apparent adverse anesthesia problems. No complications reported per nursing. EMILY TRISTAN CRNA Dec 06, 2017 06:52
[2017-12-06] MEDS: RT-ALBUTEROL SULF 2.5 MG/3 ML PRE-MIX VIAL INH SCH ×4 (07:03→19:16)
[2017-12-06] MEDS ORDERED: FAMOTIDINE 20 MG (PEPCID) TABLET PO SCH (07:22)
[2017-12-06] MEDS ORDERED: METOCLOPRAMIDE 10 MG (REGLAN) TAB PO PRN (07:30)
[2017-12-06 08:00] VITALS: BP 119/61
--- NOTE | 2017-12-06 08:54 | Consultation-Hospitalist ---
HPI History of Present Illness: HPI/Chief Complaint CC: Medical management following an uncomplicated lumbar spine surgery for stenosis by Dr Aguiar POD # 1 HPI: This is a 71yoWF clinic patient of Dr Wan in [place], [place] who presented to [facility] after an uncomplicated lumbar spine surgery for stenosis by Dr Aguiar POD # 1. She is O2 dependent and continues to smoke and was found smoking in the bathroom last night and we counseled her on the need to cease smoking. Pt just had catheter removed. Pulmicort will be initiated along with her home neb treatments as ordered currently. Labs and home meds reviewed. Pt reports pain is improved since drain removed this morning. Pt appears to be [place] and slight cognitive deficit. Pt is but her is in an electric wheelchair and unable to help her at home so I have ordered SW consult along with PT/OT and IRF evaluation. Source: patient Exam Limitations: no limitations Date Seen 12/06/17 Attending Physician Adria Hancock DO PCP No,Local Physician Referring Physician Date of Admission Dec 05, 2017 at 09:36 Home Medications & Allergies Home Medications Reviewed patient Home Medication Reconciliation performed by pharmacy medication reconciliations veterinary laboratory technician and/or nursing. Patients Allergies have been reviewed. Allergies Allergies Coded Allergies tramadol (Unverified Allergy, Unknown, Has received morphine w/o issue, ) per pt Past Piktgmb-Glputz-Hfjpfb Hx Past Med/Social Hx: Reviewed Nursing Past Med/Soc Hx, Reviewed and Corrections made Patient Social History Marrital Status: (56 years) Employed/Student: [place] Alcohol Use: Denies Use Recreational Drug Use: No Smoking Status: Current Everyday Smoker Type Used: Electronic/Vapor Physical Abuse Screen: No Sexual Abuse: No Recent Foreign Travel: No Contact w/other who traveled: No Recent Hopitalizations: No Recent Infectious Disease Expo: No Immunizations Up To Date Date of Pneumonia Vaccine: Dec 05, 2014 Seasonal Allergies Seasonal Allergies: Yes (AT TIMES) Past Medical History Surgeries: Hysterectomy, Orthopedic Respiratory: COPD Cardiac: High Cholesterol, Hypertension Gastrointestinal: Gastroesophageal Reflux Musculoskeletal: Arthritis, Chronic Back Pain, Fractures Loss of Vision: Bilateral Hearing Impairment: Denies History of Blood Disorders: No Family History Cardiovascular disease G8 BROTHER Dementia G8 SISTER FH: brain cancer 19 FATHER Gastroenteritis G8 BROTHER Hypertension 19 MOTHER G8 BROTHER Myocardial infarction G8 BROTHER Parkinson's disease G8 SISTER Respiratory disorder G8 BROTHER (lung ca) Hypertension Review of Systems Constitutional: see HPI, weakness EENTM: no symptoms reported Respiratory: cough Cardiovascular: no symptoms reported Gastrointestinal: constipation Genitourinary: no symptoms reported Musculoskeletal: back pain Skin: no symptoms reported Psychiatric/Neurological: No Symptoms Reported All Other Systems Reviewed Negative Unless Noted: Yes Physical Exam Physical Exam Vital Signs Vital Signs - First Documented 12/05/17 12/05/17 10:00 17:05 Temp 97.7 Pulse 70 Resp 20 B/P (MAP) 140/66 (90) Pulse Ox 95 O2 Delivery Room Air O2 Flow Rate 4.00 Capillary Refill : Less Than 3 Seconds Height, Weight, BMI Height: 5'1.00" Weight: 134lbs. 0.0oz. [id number]; 25.3 BMI Method: General Appearance: No Apparent Distress, WD/WN, Chronically ill Eyes: Bilateral Eye Normal Inspection, Bilateral Eye PERRL HEENT: PERRL/EOMI, TMs Normal, Normal ENT Inspection, Pharynx Normal Neck: Full Range of Motion, Normal Inspection, Non Tender, Supple, Carotid Bruit Respiratory: Chest Non Tender, No Accessory Muscle Use, No Respiratory Distress , Decreased Breath Sounds Cardiovascular: Regular Rate, Rhythm, No Edema, No Gallop, No JVD, No Murmur, Normal Peripheral Pulses Gastrointestinal: Normal Bowel Sounds, No Organomegaly, No Pulsatile Mass, Non Tender, Soft Back: Decreased Range of Motion, Vertebral Tenderness Extremity: Normal Capillary Refill, Normal Inspection, Normal Range of Motion, Non Tender, No Calf Tenderness, No Pedal Edema Neurologic/Psychiatric: Alert, Oriented x3, No Motor/Sensory Deficits, Normal Mood/Affect Skin: Normal Color, Warm/Dry Lymphatic: No Adenopathy Results Results/Procedures Labs Laboratory Tests 12/06/17 06:01 Patient resulted labs reviewed. Assessment/Plan Assessment and Plan Assess & Plan/Chief Complaint Assessment: Uncomplicated lumbar spine surgery for stenosis by Dr Aguiar POD # 1 Severe COPD maintained on O2 at home 24/ Smoker and was found smoking cigarette in bathroom last night HTN HLP GERD Plan: Add ICS with Pulmicort Check labs in am SW consult since uses electric wheelchair and unable to have help at home PT/OT Monitor for urinary retention since price cath just DC Miralax Diagnosis/Problems Diagnosis/Problems (1) Lumbar spinal stenosis Status: Chronic Qualifiers: Neurogenic claudication status: without neurogenic claudication Qualified Codes: M48.061 - Spinal stenosis, lumbar region without neurogenic claudication (2) COPD (chronic obstructive pulmonary disease) Status: Chronic Qualifiers: COPD type: chronic bronchitis Chronic bronchitis type: unspecified Qualified Codes: J42 - Unspecified chronic bronchitis (3) Oxygen dependent Status: Chronic (4) Smoker Status: Chronic (5) Hypertension Status: Chronic Qualifiers: Hypertension type: essential hypertension Qualified Codes: I10 - Essential (primary) hypertension (6) Hyperlipidemia Status: Chronic Qualifiers: Hyperlipidemia type: mixed hyperlipidemia Qualified Codes: E78.2 - Mixed hyperlipidemia (7) GERD (gastroesophageal reflux disease) Status: Chronic Qualifiers: Esophagitis presence: without esophagitis Qualified Codes: K21.9 - Gastro- esophageal reflux disease without esophagitis Clinical Quality Measures DVT/VTE Risk/Contraindication: Risk Factor Score Per Nursin RFS Level Per Nursing on Admit: 4+=Very High MAGDALENE ANDRES DO Dec 06, 2017 08:54
--- NOTE | 2017-12-06 09:30 | Diagnostic Imaging Report ---
EXAM: LUMBAR SPINE - 2-3 VIEWS INDICATION: Low back pain. Prior lumbar spine surgery. COMPARISON: Lumbar spine radiographs 12/08/2016. FINDINGS: There are postoperative findings of bilateral andre and pedicle screw fixation with interbody devices at L2-S1. A compression deformity of L2 has been treated with vertebroplasty. There is also a superior endplate compression deformity of L1 resulting in approximately 10% height loss which is age-indeterminate. Surgical drains. Skin francisco. IMPRESSION: 1. Interval revision of the postoperative findings including bilateral andre and pedicle screw fixation with interbody devices and laminectomies at L2-S1. 2. Compression deformities of L1 and L2 are new since the 12/08/2016 exam. The compression deformity at L2 has been treated with vertebroplasty. Dictated by: Dictated on workstation # [id number]
--- NOTE | 2017-12-06 09:55 | Physical Therapy Evaluation ---
PT Evaluation-General Medical Diagnosis Admission Date Dec 05, 2017 at 09:36 Medical Diagnosis: lumbar stenosis with radiculopathy Onset Date: Dec 05, 2017 Therapy Diagnosis Therapy Diagnosis: weakness; abn gait Height/Weight Height (Feet): 5 Height (Inches): 1.00 Weight (Pounds): 134 Weight (Ounces): 0.0 Precautions Precautions/Isolations: Standard Precautions Weight Bear Status Right Lower Extremity: Right Full Weight Bearing Left Lower Extremity: Left Full Weight Bearing Referral Physician: Larry Ortega Reason for Referral: Evaluation/Treatment Medical History Pertinent Medical History: Arthritis, COPD, HTN, Smoking Current History Spinal surgery for L2-3 TLIF, PSF, L2 kyphoplasty. Reviewed History: Yes Social History Home: Multilevel (but they only live on the main level; do not need to go up/ down steps) Current Living Status: Spouse Entry Into Home: Ramp Prior/Core FIM Prior Level of Function Functional [place] Measure 0=Not Assessed/NA 4=Minimal Assistance 1=Total Assistance 5=Supervision or Setup 2=Maximal Assistance 6=Modified [place] 3=Moderate Assistance 7=Complete IndependenceIRFPAI Quality Coding Scale 6 Independent with activity with or without an assistive device 5 Patient requires set up or clean up by helper. Patient completes activity by themselves 4 Supervision or touching assist (CGA). [place] provide cues , steadying assist 3 The helper provides less than half the effort to complete the activity 2 The helper provides more than half the effort to complete the activity 1 Dependent. 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 reports she is indep with ADL' s and mobility; reports she still drives. PT Evaluation-Current Subjective Agreeable to PT. Reports she did not sleep well last night. Reports she may go home tomorrow. Pain Numeric Pain Scale: 8 Location: Posterior Location Body Site: Back Pain Description: Ache Pt/Family Goals return home when able. Objective Patient Orientation: Person, Place, Time, Situation Problem Solving: Fair ROM/Strength ROM Lower Extremities WNL Strength Lower Extremities B LE strength is grossly 4/5 throughout Integumentary/Posture Integumentary refer to nursing notes. Bowel Incontinence: No Bladder Incontinence: No Posture rounded shoulders Neuromuscular (Tone, Coordination, Reflexes) intact and functional Sensory Vision: Functional Hearing: Functional Hand Dominance: Right Sensation Right Lower Extremit: Intact Sensation Left Lower Extremity: Intact Transfers Functional [place] Measure 0=Not Assessed/NA 4=Minimal Assistance 1=Total Assistance 5=Supervision or Setup 2=Maximal Assistance 6=Modified [place] 3=Moderate Assistance 7=Complete [place] Transfers (B, C, W/C) (FIM): 4 (CGA for safety but she did not need lifting assist. ) Supine to/from Sit: 5 (HOB elevated and used bedrail) Sit to/from Stand: 4 (CGA for safety) she was able to complete transfer safely and without lifting assist. Toilet transfer with CGA as well; able to complete pericare. Gait Mode of Locomotion: Walk Anticipated Mode of Locomotion: Walk Gait (FIM): 4 Distance (FIM): 3=150 ft Distance: 150 ft with CGA Gait Assistive Device: FWW Comments/Gait Description Back brace in situ for ambulation and toileting. CGA with gait for safety, tends to pull to the right with ambulation. Decreased step length but corrects with cuing Balance Sitting Static: Good Sitting Dynamic: Good Standing Static: Fair Standing Dynamic: Fair Treatment Toileted with SB-CGA; gait training in the room, bathroom and rojas. Assessment/Needs Presents post lumbar surgery., Requires assist with donning back brace and SB- CGA with functional tranfers and gait for safety. Pt will benefit from short term PT to address functional mobility and allow her to return home safely. Rehab Potential: Good PT Chcf Goals Stamp Pad Finisher Goals PT Stamp Pad Finisher Goals Time Frame: Dec 09, 2017 Transfers (B,C,W/C) (FIM): 7 Gait (FIM): 6 Gait Assistive Device: FWW PT Plan Problem List Problem List: Activity Tolerance, Functional Strength, Safety, Balance, Gait, Transfer, Bed Mobility Treatment/Plan Treatment Plan: Continue Plan of Care Treatment Plan: Bed Mobility, Education, Functional Activity French, Functional Strength, Gait, Safety, Therapeutic Exercise, Transfers Treatment Duration: Dec 09, 2017 Frequency: 11 times per week Estimated Hrs Per Day: .5 hour per day Patient and/or Family Agrees t: Yes Safety Risks/Education Patient Education: Gait Training, Transfer Techniques, Safety Issues Teaching Recipient: Patient Teaching Methods: Demonstration, Discussion Response to Teaching: Reinforcement Needed Discharge Recommendations Therapy D/C Recommendations: Physical Therapy Home Care Time/GCodes Time In: 820 Time Out: 845 Total Billed Treatment Time: 25 Total Billed Treatment visit EVM 15 GT 10 MARICEL FERRIS PT Dec 06, 2017 09:54
[2017-12-06] MEDS: lisINopril 20 MG (PRINIVIL) TABLET PO SCH (10:33)
[2017-12-06] MEDS: TRIAMTERENE/HCTZ 75-50 (MAXZIDE,DYAZIDE) TABLET PO SCH (10:33)
[2017-12-06] MEDS: meTOprolol SUCCINATE 100 MG (TOPROL XL) TAB PO SCH (10:34)
[2017-12-06] MEDS: RT-BUDESONIDE NEBS 0.5 MG/2ML (PULMICORT) AMP INH SCH ×2 (10:39→19:16)
[2017-12-06] MEDS ORDERED: IPRA3AMP31 PO (11:15)
[2017-12-06] MEDS ORDERED: POLYETHYLENE GLYCOL 17 GM (MIRALAX) PACK PO NR (11:23)
--- NOTE | 2017-12-06 11:37 | Occupational Therapy Eval ---
OT Evaluation-General/PLF Medical Diagnosis Admission Date Dec 05, 2017 at 09:36 Medical Diagnosis: lumbar stenosis with radiculopathy Onset Date: Dec 05, 2017 Therapy Diagnosis Therapy Diagnosis: impaired self care skills Height/Weight Height (Feet): 5 Height (Inches): 1.00 Weight (Pounds): 134 Weight (Ounces): 0.0 Precautions Precautions/Isolations: Fall Prevention, Standard Precautions Safety Interventions: Bed Exit Alarm Comments Lumbar brace Referral Physician: Larry Ortega Medical History Pertinent Medical History: Arthritis, COPD, GERD, HTN, Smoking Additional Medical History high cholesterol, chronic back pain. Current History pt s/p L2-3 TLIF, PSF, L2 kyphoplasty Reviewed History: Yes Social History Home: Multilevel (but they only live on the main level; do not need to go up/ down steps) Current Living Status: Spouse Entry Into Home: Ramp ADL-Prior Level of Function Functional [place] Measure 0=Not Assessed/NA 4=Minimal Assistance 1=Total Assistance 5=Supervision or Setup 2=Maximal Assistance 6=Modified [place] 3=Moderate Assistance 7=Complete [place] ADL PLOF Comments Pt reports being independent with self care and mobility. Pt states she assists spouse. Self Care 6 DME/Equipment: Bath Chair, Grab Bars, Tub/Shower, Toilet/Riser [address] Self: Yes OT Current Status Subjective Pt sitting in chair, agrees to therapy. Pt reports 5/10 pain at rest and 10/10 pain with movement. Pt requests pain medication. RN notified. Mental Status/Objective Patient Orientation: Person, Place, Situation Attachments: IV, Oxygen Current Glasses/Contacts: Yes Hearing Aids: No Dentures/Partials: Yes Hand Dominance: Right Upper Extremity ROM Grossly functional Upper Extremity Coordination Intact Upper Extremity Sensation Intact per pt report ADL-Treatment ADL-Current Pt states she is feeding herself without difficulty. Pt required assist to change gown secondary to drainage. RN was notified and changed dressing. Pt requires assist to doff/don brace. Pt performed sit to stand x3 during session with minimal assistance and cues for hand placement. Pt moves slowly and requires increased time for functional tasks. Pt fatigues with activity and reports pain. Requests to remain sitting in chair and rest. Education provided regarding role of OT and plan of care. Pt will require use of adaptive equipment for LE dressing. Pt states understanding and is in agreement with plan. Pt sitting in chair with needs met after session. Functional [place] Measure 0=Not Assessed/NA 4=Minimal Assistance 1=Total Assistance 5=Supervision or Setup 2=Maximal Assistance 6=Modified [place] 3=Moderate Assistance 7=Complete IndependenceIRFPAI Quality Coding Scale 6 Independent with activity with or without an assistive device 5 Patient requires set up or clean up by helper. Patient completes activity by themselves 4 Supervision or touching assist (CGA). [place] provide cues , steadying assist 3 The helper provides less than half the effort to complete the activity 2 The helper provides more than half the effort to complete the activity 1 Dependent. The helper does all the effort to complete an activity 7 Patient refused to complete or attempt activity 9 The patient did not perform the activity before the current illness or injury 88 Not attempted due to Medical conditions or safety concerns Eating (FIM): 6 (by pt report) Education OT Patient Education: Rehab process Teaching Recipient: Patient Teaching Methods: Discussion Response to Teaching: Verbalize Understanding OT Short Term Goals Short Term Goals 1=Demonstrate adherence to instructed precautions during ADL tasks. 2=Patient will verbalize/demonstrate understanding of assistive devices/ modifications for ADL. 3=Patient will improve strength/tolerance for activity to enable patient to perform ADL's. OT Fdc Goals Fdc Goals Time Frame: Dec 20, 2017 Grooming(FIM): 6 Bathing(FIM): 5 Upper Body Dressing(FIM): 6 Lower Body Dressing(FIM): 5 Toileting(FIM): 6 Toilet/Commode Transfer(FIM): 6 Additional Goals: 1-Demonstrate ADL Tasks, 2-Verbalize Understanding, 3- ImproveStrength/French 1=Demonstrate adherence to instructed precautions during ADL tasks. 2=Patient will verbalize/demonstrate understanding of assistive devices/ modifications for ADL. 3=Patient will improve strength/tolerance for activity to enable patient to perform ADL's. OT Education/Plan Problem List/Assessment Assessment: Decreased Activ Tolerance, Decreased UE Strength, Dependent Transfers, Impaired Self-Care Skills Pt s/p lumbar surgery with decreased mobility, strength, activity tolerance, and ADL functioning. Pt to benefit from skilled OT intervention for ADL training , transfers, strengthening, adaptive equipment training, and home safety education to increase level of independence and allow safe discharge plan. Discharge Recommendations Plan/Recommendations: Continue POC Treatment Plan/Plan of Care Treatment,Training & Education: Yes Patient would benefit from OT for education, treatment and training to promote independence in ADL's, mobility, safety and/or upper extremity function for ADL' s. Plan of Care: ADL Retraining, Functional Mobility, UE Funct Exercise/Act Treatment Duration: Dec 20, 2017 Frequency: 5 times per week Estimated Hrs Per Day: .25 hour per day Rehab Potential: Good Time/GCodes Start Time: 11:01 Stop Time: 11:26 Total Time Billed (hr/min): 25 Billed Treatment Time 1 visit, EVM(15minutes), ADL(10minutes) ADITYA JOSE OT Dec 06, 2017 11:37
[2017-12-06 12:00] VITALS: BP 100/56
--- NOTE | 2017-12-06 12:17 | Diagnostic Imaging Report ---
Fluoroscopy at 3:06 INDICATION: Back pain Fluoroscopic assistance was provided for Dr. Hancock. 3.3 seconds of fluoroscopy time was utilized. 2 spot films of the lumbar spine were obtained. There are bilateral pedicle screws in place at each level from L2-S1. IMPRESSION: Fluoroscopic assistance was provided for Dr. Hancock. Dictated by: Dictated on workstation # [id number]
--- NOTE | 2017-12-06 14:14 | Physical Therapy Daily Note ---
PT Daily Note-Current Subjective Patient reports extreme pain. Agrees to PT. Pain Numeric Pain Scale: 8 Location: Lower Location Body Site: Back Pain Description: Acute Mental Status Patient Orientation: Normal For Age Attachments: Oxygen (4), IV Transfers Functional [place] Measure 0=Not Assessed/NA 4=Minimal Assistance 1=Total Assistance 5=Supervision or Setup 2=Maximal Assistance 6=Modified [place] 3=Moderate Assistance 7=Complete IndependenceIRFPAI Quality Coding Scale 6 Independent with activity with or without an assistive device 5 Patient requires set up or clean up by helper. Patient completes activity by themselves 4 Supervision or touching assist (CGA). [place] provide cues , steadying assist 3 The helper provides less than half the effort to complete the activity 2 The helper provides more than half the effort to complete the activity 1 Dependent. The helper does all the effort to complete an activity 7 Patient refused to complete or attempt activity 9 The patient did not perform the activity before the current illness or injury 88 Not attempted due to Medical conditions or safety concerns Transfers (B, C, W/C) (FIM): 3 Scootin Rollin Supine to/from Sit: 3 Sit to/from Stand: 3 moderate assist due to pain Weight Bearing Right Lower Extremity: Right Full Weight Bearing Left Lower Extremity: Left Full Weight Bearing Gait Training Gait (FIM): 2 Distance (FIM): 9=274-16 ft Distance: 100' Gait Level of Assist: 4 Gait Persons Needed: 1 Gait Assistive Device: FWW slow, steady, functional Assessment Assist to don back brace. Per RN, patient has had drainage from incision site with multiple dressing changes. PT to increase activity as tolerated by patient. PT Software Engineering Specialist Goals Software Engineering Specialist Goals PT Software Engineering Specialist Goals Time Frame: Dec 09, 2017 Transfers (B,C,W/C) (FIM): 7 Gait (FIM): 6 Gait Assistive Device: FWW PT Plan Treatment/Plan Treatment Plan: Continue Plan of Care Treatment Plan: Bed Mobility, Education, Functional Activity French, Functional Strength, Gait, Safety, Therapeutic Exercise, Transfers Treatment Duration: Dec 09, 2017 Frequency: 11 times per week Estimated Hrs Per Day: .5 hour per day Patient and/or Family Agrees t: Yes Time/GCodes Time In: 1321 Time Out: 1335 Total Billed Treatment Time: 14 Total Billed Treatment 1 visit FA14 min RAMAKRISHNA ALEXANDER PT Dec 06, 2017 14:14
[2017-12-06 16:30] VITALS: BP 100/54
[2017-12-06 19:30] VITALS: BP 105/51
[2017-12-06] MEDS ORDERED: POLYETHYLENE GLYCOL 17 GM (MIRALAX) PACK PO SCH (21:00)
[2017-12-06] MEDS: SIMvastatin 40 MG (ZOCOR) TAB PO SCH (21:38)
[2017-12-07] VITALS: BP 103/51
[2017-12-07 04:00] VITALS: BP 109/56
[2017-12-07] MEDS: HYDROcodone/APAP 5 MG/325 MG (LORTAB) TAB PO PRN ×2 (05:20→09:41)
[2017-12-07 06:10] LABS: BASOPHILS % (AUTO) 0 % (0-10); EOSINOPHILS % (AUTO) 0 % (0-10); HEMATOCRIT 27 % (35-52); HEMOGLOBIN 9.3 G/DL (11.5-16.0); LYMPHOCYTES # (AUTO) 1.8 X 10^3 (1.0-4.0); MEAN CORPUSCULAR HEMOGLOBIN 31 PG (25-34); MEAN CORPUSCULAR HGB CONC 35 G/DL (32-36); MEAN CORPUSCULAR VOLUME 90 FL (80-99); MEAN PLATELET VOLUME 9.9 FL (7.4-10.4); MONOCYTES # (AUTO) 1.6 X 10^3 (0.0-1.0); NEUTROPHILS # (AUTO) 5.1 X 10^3 (1.8-7.8); NEUTROPHILS % (AUTO) 60 % (42-75); PLATELET COUNT 183 10^3/uL (130-400); RED BLOOD COUNT 2.97 10^6/uL (4.35-5.85); RED CELL DISTRIBUTION WIDTH 14.1 % (10.0-14.5); WHITE BLOOD COUNT 8.6 10^3/uL (4.3-11.0)
[2017-12-07 06:13] LABS: MONOCYTES % (AUTO) 17 % (0-12)
[2017-12-07 06:14] LABS: LYMPHOCYTES % (AUTO) 22 % (12-44)
--- NOTE | 2017-12-07 06:14 | Progress Note (SOAP) ---
Subjective Date Seen by a Provider: Dec 07, 2017 Time Seen by a Provider: 06:11 Subjective/Events-last exam POD #2, VSS, Afebrile Awaiting IRF evaluation Review of Systems Pulmonary: Dyspnea, Cough Gastrointestinal: No: Nausea, Abdominal Pain Musculoskeletal: back pain, leg pain Objective Exam Vital Signs Date Time Temp Pulse Resp B/P (MAP) Pulse Ox O2 Delivery O2 Flow Rate FiO2 12/07/17 00:00 99.5 87 20 103/51 (68) 97 Nasal Cannula 4.00 12/06/17 19:30 98.0 82 22 105/51 (69) 96 Nasal Cannula 4.00 12/06/17 19:25 Nasal Cannula 4.00 12/06/17 19:17 Nasal Cannula 4.00 12/06/17 16:30 98.0 75 18 100/54 (69) 98 Nasal Cannula 4.00 12/06/17 14:36 95 Nasal Cannula 3.00 12/06/17 12:10 98.7 12/06/17 12:00 98.0 68 18 100/56 (71) 95 Nasal Cannula 4.00 12/06/17 10:43 93 Nasal Cannula 3.00 12/06/17 08:00 98.7 85 18 119/61 (80) 94 Nasal Cannula 4.00 12/06/17 07:05 96 Nasal Cannula 3.00 I & O 12/07/17 07:00 Intake Total 1170 ml Output Total 0 ml Balance 1170 ml Capillary Refill : Less Than 3 Seconds General Appearance: No Apparent Distress, Other (Patient resting comfortably ) Respiratory: No Respiratory Distress Cardiovascular: No Edema, Normal Peripheral Pulses Gastrointestinal: soft Skin: Normal Color, Warm/Dry, Other (Dressing CDI) Results Lab Laboratory Tests 12/07/17 05:15: Assessment/Plan Assessment/Plan Assess & Plan/Chief Complaint Lumbar stenosis with radiculopathy Compression fracture Tobacco abuse Oxygen dependancy S/P L2-3 TLIF, PSF, with L2 kyphoplasty Patient would benefit from IRF. Awaiting evaluation Clinical Quality Measures DVT/VTE Risk/Contraindication: Risk Factor Score Per Nursin RFS Level Per Nursing on Admit: 4+=Very High SAVANNA SPIVEY Dec 07, 2017 06:14
[2017-12-07 06:32] LABS: ALANINE AMINOTRANSFERASE 16 U/L (0-55); ALBUMIN 3.5 GM/DL (3.2-4.5); ALKALINE PHOSPHATASE 42 U/L (40-136); BILIRUBIN,TOTAL 0.4 MG/DL (0.1-1.0); BUN/CREATININE RATIO 18; CALCIUM 8.8 MG/DL (8.5-10.1); CARBON DIOXIDE 27 MMOL/L (21-32); CHLORIDE 97 MMOL/L (98-107); CREATININE SERUM 0.66 MG/DL (0.60-1.30); GFR ESTIMATED > 60; GLUCOSE 96 MG/DL (70-105); SODIUM 134 MMOL/L (135-145); TOTAL PROTEIN 5.7 GM/DL (6.4-8.2)
[2017-12-07] MEDS: PANTOPRAZOLE 40 MG (PROTONIX) TAB PO SCH (06:37)
[2017-12-07] MEDS: MULTIVIT W/MINERALS TAB (THERAGRAN M) PO SCH (06:37)
[2017-12-07] MEDS: RT-ALBUTEROL SULF 2.5 MG/3 ML PRE-MIX VIAL INH SCH ×2 (06:46→10:43)
[2017-12-07] MEDS: RT-BUDESONIDE NEBS 0.5 MG/2ML (PULMICORT) AMP INH SCH (06:46)
[2017-12-07 08:00] VITALS: BP 90/54
[2017-12-07] MEDS: meTOprolol SUCCINATE 100 MG (TOPROL XL) TAB PO SCH (09:40)
[2017-12-07] MEDS: lisINopril 20 MG (PRINIVIL) TABLET PO SCH (09:41)
[2017-12-07] MEDS: TRIAMTERENE/HCTZ 75-50 (MAXZIDE,DYAZIDE) TABLET PO SCH (09:41)
--- NOTE | 2017-12-07 10:35 | Discharge Summary-Hospitalist ---
Diagnosis/Chief Complaint Date of Admission Dec 05, 2017 at 09:36 Date of Discharge Discharge Date: Dec 07, 2017 Discharge Diagnosis (1) Lumbar spinal stenosis Status: Chronic (2) COPD (chronic obstructive pulmonary disease) Status: Chronic (3) Oxygen dependent Status: Chronic (4) Smoker Status: Chronic (5) Hypertension Status: Chronic (6) Hyperlipidemia Status: Chronic (7) GERD (gastroesophageal reflux disease) Status: Chronic Discharge Summary Discharge Physical Exam Allergies: Coded Allergies: tramadol (Unverified Allergy, Unknown, Has received morphine w/o issue, ) per pt Vitals & I&Os Vital Signs Date Time Temp Pulse Resp B/P (MAP) Pulse Ox O2 Delivery O2 Flow Rate FiO2 12/07/17 10:43 93 Nasal Cannula 2.00 12/07/17 08:00 97.0 82 20 90/54 (66) General Appearance: No Apparent Distress, WD/WN, Chronically ill Respiratory: Chest Non Tender, No Accessory Muscle Use, No Respiratory Distress , Crackles, Decreased Breath Sounds Cardiovascular: Regular Rate, Rhythm, No Edema, No Gallop, No JVD, No Murmur, Normal Peripheral Pulses Neurologic/Psychiatric: Alert, Oriented x3, No Motor/Sensory Deficits, Normal Mood/Affect Hospital Course Hospital course: patient had a standard hospital course. She had an extensive but uncomplicated surgery but due to severe COPD and chronic debility and lack of assistance at home she was found to meet criteria for in-pt rehab and was agreeable to that plan. Pt has been maintained on Neb treatments and O2 and given bowel regimen to help with constipation. Pain was controlled during post operative course and was deemed stable to transfer to IRU. Labs (last 24 hrs) Laboratory Tests 12/07/17 05:15: White Blood Count 8.6, Red Blood Count 2.97L, Hemoglobin 9.3L, Hematocrit 27L, Mean Corpuscular Volume 90, Mean Corpuscular Hemoglobin 31, Mean Corpuscular Hemoglobin Concent 35, Red Cell Distribution Width 14.1, Platelet Count 183, Mean Platelet Volume 9.9, Neutrophils (%) (Auto) 60, Lymphocytes (%) (Auto) 22, Monocytes (%) (Auto) 17H, Eosinophils (%) (Auto) 0, Basophils (%) (Auto) 0, Neutrophils # (Auto) 5.1, Lymphocytes # (Auto) 1.8, Monocytes # (Auto) 1.6H, Eosinophils # (Auto) 0.0, Basophils # (Auto) 0.0, Sodium Level 134L, Potassium Level 3.0L, Chloride Level 97L, Carbon Dioxide Level 27, Anion Gap 10, Blood Urea Nitrogen 12, Creatinine 0.66, Estimat Glomerular Filtration Rate > 60, BUN/ Creatinine Ratio 18, Glucose Level 96, Calcium Level 8.8, Corrected Calcium 9.2 , Total Bilirubin 0.4, Aspartate Amino Transf (AST/SGOT) 32, Alanine Aminotransferase (ALT/SGPT) 16, Alkaline Phosphatase 42, Total Protein 5.7L, Albumin 3.5 Patient resulted labs reviewed. Pending Labs Discussion & Recommendations Discharge Planning: <30 minutes discharge planning Discharge Home Medications: Active Scripts Active Reported Iprat-Albut 0.5-3(2.5) mg/3 ml (Ipratropium/Albuterol Sulfate) 3 Ml Ampul.neb 3 Ml PO Q4H PRN Ventolin Hfa (Albuterol Sulfate) 1 Puff Puff 1-2 Puff IH QID PRN Bevespi Aerosphere Inhaler (Glycopyrrolate/Formoterol Fum) 10.7 Gm Hfa.aer.ad 2 Puff IH BID Metoprolol Succinate 100 Mg Tab.er.24h 100 Mg PO DAILY Omeprazole 40 Mg Capsule.dr 40 Mg PO DAILY Alprazolam 0.25 Mg Tablet 0.25 Mg PO HS PRN Triamterene-Hctz 37.5-25 mg Cp (Triamterene/Hydrochlorothiazid) 1 Each Capsule 1 Cap PO DAILY LAST FILLED 12-27-16 #30 Lisinopril 20 Mg Tablet 20 Mg PO DAILY Simvastatin 40 Mg Tablet 40 Mg PO DAILY LAST FILLED 12-27-16 #30 Instructions to patient/family Please see electronic discharge instructions given to patient. Clinical Quality Measures DVT/VTE Risk/Contraindication: Risk Factor Score Per Nursin RFS Level Per Nursing on Admit: 4+=Very High Problem Qualifiers (1) Lumbar spinal stenosis: Neurogenic claudication status: without neurogenic claudication Qualified Codes: M48.061 - Spinal stenosis, lumbar region without neurogenic claudication (2) COPD (chronic obstructive pulmonary disease): COPD type: chronic bronchitis Chronic bronchitis type: unspecified Qualified Codes: J42 - Unspecified chronic bronchitis (3) Hypertension: Hypertension type: essential hypertension Qualified Codes: I10 - Essential ( primary) hypertension (4) Hyperlipidemia: Hyperlipidemia type: mixed hyperlipidemia Qualified Codes: E78.2 - Mixed hyperlipidemia (5) GERD (gastroesophageal reflux disease): Esophagitis presence: without esophagitis Qualified Codes: K21.9 - Gastro- esophageal reflux disease without esophagitis MAGDALENE ANDRES DO Dec 07, 2017 10:35
[2017-12-07] MEDS ORDERED: FLEET ENEMA ADULT 1 EA BTL PR NR (10:45)
[2017-12-07] MEDS ORDERED: KCL 20 MEQ TAB (K-DUR) PO NR (10:45)
[2017-12-07] MEDS ORDERED: LACTULOSE SYRUP 10GM/15ML (ENULOSE) 30ML UDC PO NR (10:45)
[2017-12-07] MEDS ORDERED: LACTULOSE SYRUP 10GM/15ML (ENULOSE) 30ML UDC PO SCH (21:00)
[2017-12-08] MEDS ORDERED: KCL 20 MEQ TAB (K-DUR) PO SCH (07:00)
--- NOTE | 2017-12-12 11:17 | Physician Query Clarification ---
PQ-Further Specificity Admission/Discharge Admission Date: Dec 05, 2017 at 09:36 Discharge Date: Dec 07, 2017 at 11:20 The medical record reflects the following clinical scenario: History/Risk Factors: Compression fracture Lumbar spinal stenosis with neurogenic claudication and radiculopathy. Osteoporosis Clinical Findings:Vertebral fracture,osteoporosis Treatment: Kyphoplasty Question: Can you further specify etiology of L2 compression fracture per the clinical indicators above? Please document below. 1. L2 compression fracture due to osteoporosis. 2. L2 compression fracture due to trauma.(please specify type of trauma) 3. Other, with explanation of the clinical findings. 4. Clinically undetermined, no explanation for the clinical findings. PHYSICIAN RESPONSE Can you specify per above: 1 In responding to this query, please exercise your independent professional judgment. The purpose of this communication is to more accurately reflect the complexity of your patients condition. The fact that a question is asked does not imply that any particular answer is desired or expected. Thank you for your timely response to this clarification. Requestors name: Keri Pearce [facility], [facility] Phone # ext [phone] or [phone] THIS PHYSICIAN QUERY FORM IS A PERMANENT PART OF THE MEDICAL RECORD KERI PEARCE Dec 12, 2017 11:17 RICHIE DUBOIS DO Dec 18, 2017 12:07
--- NOTE | 2017-12-12 11:24 | Physician Query Clarification ---
PQ-Further Specificity Admission/Discharge Admission Date: Dec 05, 2017 at 09:36 Discharge Date: Dec 07, 2017 at 11:20 The medical record reflects the following clinical scenario: History/Risk Factors: L2 compression fracture. Clinical Findings: L2 compression fracture Osteoporosis Treatment: Kyphoplasty Question: Can you further specify the Kyphoplasty procedure per the clinical indicators above? Please document below. 1. Open kyphoplasty procedure for L2 compression fracture treatment. 2. Percutaneous kyphoplasty procedure for L2 compression fracture treatment. 3. Other, with explanation of the clinical findings. 4. Clinically undetermined, no explanation for the clinical findings. PHYSICIAN RESPONSE Can you specify per above: 1 In responding to this query, please exercise your independent professional judgment. The purpose of this communication is to more accurately reflect the complexity of your patients condition. The fact that a question is asked does not imply that any particular answer is desired or expected. Thank you for your timely response to this clarification. Requestors name: Keri Pearce [facility], [facility] Phone # ext [phone] or [phone] THIS PHYSICIAN QUERY FORM IS A PERMANENT PART OF THE MEDICAL RECORD KERI PEARCE Dec 12, 2017 11:24 RICHIE DUBOIS DO Dec 18, 2017 12:08
== END 2017-12-07 11:20 | DRG 454 ==
LOC: EDSTATUS 09:30 → 4TH 09:36
PROVIDERS: ADMIT Orthopaedic Surgery; ATTEND Orthopaedic Surgery
PROC: 0SG0071 Fusion of Lumbar Vertebral Joint with Autologous Tissue Substitute, Posterior Approach, Posterior Column, Open Approach (ICD-10-PCS; 2017-12-05)
PROC: 0QS00ZZ Reposition Lumbar Vertebra, Open Approach (ICD-10-PCS; 2017-12-05)
PROC: 0QU00JZ Supplement Lumbar Vertebra with Synthetic Substitute, Open Approach (ICD-10-PCS; 2017-12-05)
PROC: 0ST20ZZ Resection of Lumbar Vertebral Disc, Open Approach (ICD-10-PCS; 2017-12-05)
PROC: 0SG00AJ Fusion of Lumbar Vertebral Joint with Interbody Fusion Device, Posterior Approach, Anterior Column, Open Approach (ICD-10-PCS; principal; 2017-12-05 14:04)
DX: M48.062 Spinal stenosis, lumbar region with neurogenic claudication (principal); M54.16 Radiculopathy, lumbar region; M80.08XA Age-related osteoporosis with current pathological fracture, vertebra(e), initial encounter for fracture; J44.9 Chronic obstructive pulmonary disease, unspecified; I25.10 Atherosclerotic heart disease of native coronary artery without angina pectoris; I10 Essential (primary) hypertension; F17.210 Nicotine dependence, cigarettes, uncomplicated; Z23 Encounter for immunization; M06.9 Rheumatoid arthritis, unspecified; E78.00 Pure hypercholesterolemia, unspecified; K21.9 Gastro-esophageal reflux disease without esophagitis; Z99.81 Dependence on supplemental oxygen; Z98.1 Arthrodesis status
CPT/HCPCS: 36415; 72100; 80053; 85025; 85027; 86850; 86900; 86901; 90686; 94640; 94664; 94760

== ENCOUNTER 2017-12-07 09:53 | Inpatient (IN) | payer MEDICARE, OTHER ==
[~2017-12-07] VITALS: Ht 154.9 cm; Wt 61.2 kg
[~2017-12-07 09:53] MED LIST changes: +IPRA3AMP31 PO
[2017-12-07] MEDS ORDERED: ALPRAZolam 0.25 MG (XANAX) TAB PO PRN (11:30)
--- NOTE | 2017-12-07 12:41 | HISTORY AND PHYSICAL ---
DATE OF SERVICE: 12/07/2017 CHIEF COMPLAINT: Difficulty with walking. 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 She was reevaluated by Dr. Hancock, ortho spine and was admitted to [facility] on 12/05 for redo spinal surgery, specifically exploration of fusion and revision laminectomy, L2-L3; transforaminal lumbar interbody fusion, L2-L3; application of posterior instrumentation, L2-L3; posterior spinal fusion, L2-L3, use of human allograft for spine, use of local bone autograft, application of titanium cage L2-L3 and L2 kyphoplasty for lumbar radiculopathy with adjacent segment disease and neurogenic claudication and L2 contracture from pressure fracture with underlying osteoporosis on 12/05/2017. Postoperatively, clinically, the patient was followed by hospitalist service, Dr. Galvan in lieu of PCP. The patient required assistance for ADLs and mobility skills and was referred to inpatient rehabilitation unit. Apparently, she complains of pain in her back, 8/10. She reports being continent of bowel and bladder. She is min assist for gait with front wheel walker, min assist for transfers and bed mobility. She requires assistance for her ADLs. She has been modified independent with a rollator walker prior to this at home. Her is retired, but is somewhat disabled and he utilizes a power chair.The patient is Min assist for Toilet transfers and Mod assist for toileting hygiene.She is rt hand dominant. PAST MEDICAL HISTORY: Osteoporosis, lumbar spinal stenosis, arthritis, COPD, tobaccoism, hypertension. PAST SURGICAL HISTORY: Prior spinal surgery as per above. ALLERGIES: TRAMADOL. FAMILY HISTORY: Positive for brain cancer, [place], lung cancer. 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 Every day smoker. REVIEW OF SYSTEMS: A 10-point review of systems is significant for back pain. MEDICATIONS: Ventolin HFA 1 to 2 puffs q.i.d. p.r.n. shortness of breath, Xanax 0.25 mg p.o. each day at bedtime p.r.n. insomnia, Bevespi inhaler 2 puffs b.i.d., DuoNeb treatments q. 4 hours p.r.n. shortness of breath, lisinopril 20 mg p.o. daily, metoprolol 100 mg p.o. daily, omeprazole 40 mg p.o. daily, simvastatin 40 mg p.o. daily, Maxzide one capsule p.o. daily. PHYSICAL EXAMINATION: GENERAL: Significant for a female appearing her stated age, sitting in chair, no acute distress. VITAL SIGNS: Blood pressure 90/54, respirations 20, pulse 82. She is afebrile. She is on O2 by nasal cannula 4 liters per minute. HEENT: Vision, speech, hearing grossly intact. No oral lesion is noted. NECK: Supple without mass. HEART: Regular rhythm. CHEST: Clear. ABDOMEN: Soft, nontender. Bowel sounds present. EXTREMITIES: No lower leg edema, no calf tenderness. MUSCULOSKELETAL: She has functional active range of motion in all four limbs intact. She has tenderness over her incision site. NEUROLOGIC: Sensation is grossly intact to touch. Cognition is grossly intact. Strength is grossly 4/5 throughout. ASSESSMENT: 1. Lumbar spinal stenosis and radiculopathy, status post redo surgery as per above. 2. Chronic obstructive pulmonary disease. 3. Tobaccoism. 4. Hypertension, controlled with medication. 5. O2 dependence, chronic. 6. Hyperlipidemia. 7. Gastroesophageal reflux disease, on meds. PLAN: The patient will have a comprehensive program of inpatient rehabilitation with goal of maximizing level of functional independence prior to discharge home with spouse. The patient will have PT and OT 90 minutes per day each discipline, 5 days a week for 2 weeks with the above goals in mind to make the patient modified independent to supervision for ADLs and mobility skills. She has assisted her in the past at home, so she will certainly need to be as high level as possible and we will benefit from home health care most likely. Speech therapy to do cognitive assessment, treat as indicated. Rehabilitation nursing to assist with bowel, bladder, skin, wound care, medication administration, pain management. Respiratory therapy to assist with respiratory treatments, O2 administration, monitoring O2 sats. manager office services to assist with discharge planning, community reentry.Please see post-admission physician evaluation, which is a separate document for details of plan of care. Follow with Dr. Galvan and Dr. Hancock as per their schedule. Continue current medications. Pain medications to be reviewed. ESTIMATED LENGTH OF STAY: Two weeks. PROGNOSIS: Rehab prognosis appears good for goal of discharging home with spouse, modified independent to supervision for ADLs and mobility skills. DIET: Regular. CODE STATUS: Full code. Job ID: [id number] DocumentID: [id number] Dictated Date: 12/07/2017 11:56:46 Design Technician Date: 12/07/2017 12:40:26 Dictated By: GALO COLVIN MD [facility]
[2017-12-07 13:00] VITALS: BP 101/63
[2017-12-07] MEDS ORDERED: RT-ALBUTEROL SULF 2.5 MG/3 ML PRE-MIX VIAL IH PRN (13:15)
--- NOTE | 2017-12-07 14:02 | Physical Therapy Evaluation ---
PT Evaluation-General Medical Diagnosis Admission Date Dec 07, 2017 at 11:00 Medical Diagnosis: Spinal surgery for L2-3 TLIF, PSF, L2 kyphoplasty Onset Date: Dec 05, 2017 Therapy Diagnosis Therapy Diagnosis: impaired mobility, strength, endurance Height/Weight Height (Feet): 5 Height (Inches): 1.00 Weight (Pounds): 134 Weight (Ounces): 0.0 Referral Physician: Kulwinder Reason for Referral: Evaluation/Treatment Medical History Pertinent Medical History: Arthritis, COPD, GERD, HTN, Smoking Social History Home: [facility] Current Living Status: Spouse Entry Into Home: Ramp Patient states she can stay on the main level, spouse will not be able to assist her Prior/Core FIM Prior Level of Function Functional [place] Measure 0=Not Assessed/NA 4=Minimal Assistance 1=Total Assistance 5=Supervision or Setup 2=Maximal Assistance 6=Modified [place] 3=Moderate Assistance 7=Complete IndependenceIRFPAI Quality Coding Scale 6 Independent with activity with or without an assistive device 5 Patient requires set up or clean up by helper. Patient completes activity by themselves 4 Supervision or touching assist (CGA). [place] provide cues , steadying assist 3 The helper provides less than half the effort to complete the activity 2 The helper provides more than half the effort to complete the activity 1 Dependent. The helper does all the effort to complete an activity 7 Patient refused to complete or attempt activity 9 The patient did not perform the activity before the current illness or injury 88 Not attempted due to Medical conditions or safety concerns Bed Mobility: 7 Transfers (B,C,W/C) (FIM): 7 Gait: 6 Patient used a 4 wheeled walker previously PT Evaluation-Current Subjective Patient in bed pre tx, agrees to PT,has pain of 7/10. Taking patient to rehab. Pt/Family Goals to be independent at home Objective Patient Orientation: Person, Place, Situation Attachments: Drains, IV TLSO ROM/Strength ROM Lower Extremities WNL Strenght Lower Extremities right lower extremity (hip flexion 3+/5, knee flexion 4/5, knee extension 4/5, dorsiflexion 5/5), left lower extremity (hip flexion 3+/5, knee flexion 4/5, knee extension 4/5, dorsiflexion 5/5) Neuromuscular (Tone, Coordination, Reflexes) NT Sensory Vision: Functional Hearing: Functional Sensation Right Lower Extremit: Intact Sensation Left Lower Extremity: Intact Transfers Functional [place] Measure 0=Not Assessed/NA 4=Minimal Assistance 1=Total Assistance 5=Supervision or Setup 2=Maximal Assistance 6=Modified [place] 3=Moderate Assistance 7=Complete IndependenceIRFPAI Quality Coding Scale 6 Independent with activity with or without an assistive device 5 Patient requires set up or clean up by helper. Patient completes activity by themselves 4 Supervision or touching assist (CGA). [place] provide cues , steadying assist 3 The helper provides less than half the effort to complete the activity 2 The helper provides more than half the effort to complete the activity 1 Dependent. The helper does all the effort to complete an activity 7 Patient refused to complete or attempt activity 9 The patient did not perform the activity before the current illness or injury 88 Not attempted due to Medical conditions or safety concerns Transfers (B, C, W/C) (FIM): 4 Scootin Rollin Roll Left to Right (QC): 3 Supine to/from Sit: 4 Sit to/from Stand: 4 bed t/f WC(FIM only if WC use): 4 Sit to Lying (QC): 3 Lying to Sitting/Side of Bed(Q: 3 Sit to Stand (QC): 4 Chair/Hlg-mb-Ehvbo Xfer(QC): 4 Car Transfer (QC): 3 Patient performs rolling with min assist, supine <-> sit with min assist, sit to stand with CGA, transfers CGA, car transfer min assist. Patient needs cues for hand placement and safety, cues for positioning during log roll. Gait Does the Patient Walk?: Yes Mode of Locomotion: Walk Anticipated Mode of Locomotion: Walk Gait (FIM): 1 Walk 10 feet (QC): 4 Walk 50 ft with 2 Turns(QC): 88 Walk 150 ft (QC): 88 Walking 10ft/uneven surface-QC: 88 Distance: 30' Gait Level of Assist: 4 Gait Persons Needed: 1 Gait Assistive Device: FWW Comments/Gait Description Patient ambulates 30' with a rolling walker with CGA, very antalgic, slow. Wheelchair Training Does the Pt Use a Wheelchair?: No Stairs 1 Step (curb) (QC): 88 4 Steps (QC): 88 12 Steps (QC): 88 If not tested on admit;explain Patient did not perform stairs or even an uneven surface during ambulation or wheelchair mobility herself due to pain. Patient increased during therapy and after ambulation and car transfer patient could not ambulate any more. Balance Sitting Static: Good Sitting Dynamic: Good Standing Static: Fair Standing Dynamic: Fair Picking up an Object (QC): 88 Assessment/Needs Patient has impaired mobility, strength, endurance post spinal surgery. Rehab Potential: Fair PT Short Term Goals Short Term Goals Time Frame: Dec 14, 2017 Transfers (B,C,W/C) (FIM): 4 Gait (FIM): 2 Gait Distance Comment: 50' Gait Level of Assist: 5 Gait Assistive Device: FWW PT Turbine Assembler Goals Turbine Assembler Goals PT Turbine Assembler Goals Time Frame: Dec 28, 2017 Transfers (B,C,W/C) (FIM): 5 Sit to Lying (QC): 4 Lying-Sitting on Side/Bed(QC): 4 Sit to Stand (QC): 4 Rollin Roll Left to Right (QC): 4 Chair/Zbg-af-Ucxxq Xfer(QC): 4 Car Transfer (QC): 4 Gait (FIM): 5 Distance: 150' Walk 10 feet (QC): 4 Walk 10ft-Uneven Surface(QC): 4 Walk 50ft with 2 Turns (QC): 4 Walk 150 ft (QC): 4 Gait Level of Assist: 5 Gait Assistive Device: FWW Stairs (FIM): 2 # of Steps: 4 1 Step (curb) (QC): 4 4 Steps (QC): 4 Stairs Level Of Assist: 4 PT Plan Problem List Problem List: Activity Tolerance, Functional Strength, Safety, Balance, Gait, Transfer, Bed Mobility, ROM Treatment/Plan Treatment Plan: Continue Plan of Care Treatment Plan: Bed Mobility, Concurrent Therapy, Education, Functional Activity French, Functional Strength, Group Therapy, Gait, Safety, Therapeutic Exercise, Transfers Treatment Duration: Dec 28, 2017 Frequency: At least 5 of 7 days/Wk (IRF) Estimated Hrs Per Day: 1.5 hours per day Patient and/or Family Agrees t: Yes Safety Risks/Education Patient Education: Gait Training, Transfer Techniques, Reviewed Precautions, Correct Positioning, Reviewed Don/Doff Brace, Safety Issues Teaching Recipient: Patient Teaching Methods: Demonstration, Discussion Response to Teaching: Reinforcement Needed Discharge Recommendations Plan Patient will perform bed mobility and transfer training, balance and endurance training, functional strengthening, stair training, gait training, and education , to improve functional mobility and independence at home. Therapy D/C Recommendations: Home w/ Family Support Time/GCodes Time In: 1100 Time Out: 1130 Total Billed Treatment Time: 30 Total Billed Treatment 1 visit JOSEM 30' NAVID FRIEND PT Dec 07, 2017 14:02
--- NOTE | 2017-12-07 14:13 | Occupational Therapy Eval ---
OT Evaluation-General/PLF Medical Diagnosis Admission Date Dec 07, 2017 at 11:00 Medical Diagnosis: lumbar stenosis with radiculopathy Onset Date: Dec 05, 2017 Therapy Diagnosis Therapy Diagnosis: impaired self care skills Height/Weight Height (Feet): 5 Height (Inches): 1.00 Weight (Pounds): 134 Weight (Ounces): 0.0 Precautions Comments LSO Referral Physician: Kulwinder Medical History Pertinent Medical History: Arthritis, COPD, GERD, HTN, Smoking Additional Medical History high cholesterol chronic back pain Current History pt s/p L2-3 TLIF, PSF, L2 kyphoplasty Social History Home: Multilevel (stays on main level) Current Living Status: Spouse (pt states she has to assist spouse) Entry Into Home: Ramp ADL-Prior Level of Function Functional [place] Measure 0=Not Assessed/NA 4=Minimal Assistance 1=Total Assistance 5=Supervision or Setup 2=Maximal Assistance 6=Modified [place] 3=Moderate Assistance 7=Complete [place] ADL PLOF Comments Pt reports completing self care and mobility without assistance. Pt states she has to assist her spouse. Self Care 6 DME/Equipment: Bath Chair, Grab Bars, Tub/Shower, Toilet/Riser OT Current Status Subjective Pt sitting in w/c, agrees to therapy. Pt reports 8/10 back pain. Pt requires encouragement to participate. Mental Status/Objective Patient Orientation: Person, Place, Situation Current Glasses/Contacts: Yes (reading glasses) Hearing Aids: No Dentures/Partials: Yes Hand Dominance: Right Upper Extremity ROM grossly WFL Upper Extremity Coordination Intact Upper Extremity Sensation Intact per pt report ADL-Treatment ADL-Current Pt participated in UE assessment while seated. Grooming tasks completed while seated in w/c. Pt brushed teeth, combed hair, and washed face with SBA. Pt sit to stand with minimal assistance and cues for hand placement. Transfer to [facility] over toilet with minimal assistance using FWW, cues for safety. Pt able to complete toileting hygiene, requires minimal assistance for balance during clothing management. Pt ambulated to bed and completed sit to supine with assist for LE. Pt resting in bed with needs met after session. Functional [place] Measure 0=Not Assessed/NA 4=Minimal Assistance 1=Total Assistance 5=Supervision or Setup 2=Maximal Assistance 6=Modified [place] 3=Moderate Assistance 7=Complete IndependenceIRFPAI Quality Coding Scale 6 Independent with activity with or without an assistive device 5 Patient requires set up or clean up by helper. Patient completes activity by themselves 4 Supervision or touching assist (CGA). [place] provide cues , steadying assist 3 The helper provides less than half the effort to complete the activity 2 The helper provides more than half the effort to complete the activity 1 Dependent. The helper does all the effort to complete an activity 7 Patient refused to complete or attempt activity 9 The patient did not perform the activity before the current illness or injury 88 Not attempted due to Medical conditions or safety concerns Grooming (FIM): 5 Oral Hygiene (QC): 4 Toileting (FIM): 4 Toileting Hygiene (QC): 3 Toilet/Commode Transfer (FIM): 4 Toilet Transfer (QC): 3 Education OT Patient Education: Rehab process Teaching Recipient: Patient Teaching Methods: Discussion Response to Teaching: Verbalize Understanding OT Short Term Goals Short Term Goals 1=Demonstrate adherence to instructed precautions during ADL tasks. 2=Patient will verbalize/demonstrate understanding of assistive devices/ modifications for ADL. 3=Patient will improve strength/tolerance for activity to enable patient to perform ADL's. OT Custodial Goals Custodial Goals Time Frame: Dec 28, 2017 Eating (FIM): 6 Eating (QC): 6 Groomin Oral Hygiene (QC): 6 Bathing(FIM): 5 Shower/Bathe Self (QC): 5 Upper Body Dressing(FIM): 6 Upper Body Dressing (QC): 6 Lower Body Dressing(FIM): 5 Lower Body Dressing (QC): 5 On/Off Footwear (QC): 5 Toileting(FIM): 6 Toileting Hygiene (QC): 6 Toilet/Commode Transfer(FIM): 6 Toilet/Commode Transfer (QC): 6 Shower Transfer(FIM): 5 Additional Goals: 1-Demonstrate ADL Tasks, 2-Verbalize Understanding, 3- ImproveStrength/French 1=Demonstrate adherence to instructed precautions during ADL tasks. 2=Patient will verbalize/demonstrate understanding of assistive devices/ modifications for ADL. 3=Patient will improve strength/tolerance for activity to enable patient to perform ADL's. Goals established to promote increased independence and allow safe discharge plan. OT Education/Plan Problem List/Assessment Assessment: Decreased Activ Tolerance, Decreased UE Strength, Dependent Transfers, Impaired Funct Balance, Impaired Self-Care Skills Pt s/p lumbar surgery. Pt demonstrates decreased mobility, strength, activity tolerance, and ADL functioning. Pt to benefit from skilled OT intervention for ADL training, transfers, strengthening, adaptive equipment training, and home safety education to increase independence and allow safe discharge home. Discharge Recommendations Plan/Recommendations: Continue POC Treatment Plan/Plan of Care Treatment,Training & Education: Yes Patient would benefit from OT for education, treatment and training to promote independence in ADL's, mobility, safety and/or upper extremity function for ADL' s. Plan of Care: ADL Retraining, Functional Mobility, Group Exercise/Act as Ind, UE Funct Exercise/Act Treatment Duration: Dec 28, 2017 Frequency: At least 5 of 7 days/Wk (IRF) Estimated Hrs Per Day: 1.5 hours per day Agreement: Yes Rehab Potential: Fair Time/GCodes Start Time: 11:30 Stop Time: 12:00 Total Time Billed (hr/min): 30 Billed Treatment Time 1 visit, EVM(15minutes), ADL(15minutes) ADITYA JOSE OT Dec 07, 2017 14:13
[2017-12-07] MEDS ORDERED: HYDROcodone/APAP 5 MG/325 MG (LORTAB) TAB PO PRN (14:45)
--- NOTE | 2017-12-07 14:51 | PM&R Post Admission Assessment ---
Post Admission Physician Asses Date seen by provider: Dec 07, 2017 Time seen by provider: 12:00 The preadmission screen agrees with the post admission assessment that the patient is a good candidate for inpatient rehabilitation. The patient will have a comprehensive program of inpatient rehabilitation with a goal of maximizing level of functional independence prior to discharge home with spouse. The patient will have PT/OT ninety minutes per day, each discipline, five days a week for 2 weeks for gait, strengthening, conditioning, balance, ADLs, any patient/family/caregiver training as necessary. Speech therapy to do cognitive assessment and treat as indicated. Rehabilitation nursing to assist with bowel, bladder, skin, wound care, medication administration, pain management. Software Implementation Project Manager to assist with discharge planning, community reentry. SCD's for DVT prophylaxis. She appears to be well motivated to participate in three hours of therapy a day. She should be able to tolerate three hours of therapy a day from a medical and surgical standpoint. She should benefit from the three hours of therapy a day. She has a reasonable discharge plan, reasonable discharge rehabilitation goals and a supportive family. She has various comorbidities that need to be closely monitored with medications and treatments adjusted on a daily basis as needed. These include: COPD HTN [facility] code 04.130 Etiologic DX Lumbar radiculopathy Barriers to discharge for this patient who had been independent prior to this are for her to be modified independent to supervision for ADLs and mobility skills prior to discharge home with spouse, so as to lessen the burden of the caregivers. Risks for this patient include: 1. Fall 2. Fracture 3. DVT 4. Pulmonary embolism 5. Wound infection 6. Skin breakdown 7. Contractures 8. Poorly controlled pain 9. Urinary retention 10. UTI 11. Respiratory infection 12. Aspiration 13.Acute exacerbation of COPD 14. Poorly controlled HTN Estimated Length of Stay: 10 days Prognosis: Rehab prognosis appears good for goal of discharge home with spouse modified independent to supervision for ADLs and mobility skills. Date Identified: Dec 07, 2017 Time Identified: 14:00 Action Plan to Resolve CSMI: Transfer meds reviewed from Surg floor General: Alert, Oriented X3, Cooperative, No Acute Distress HEENT: Atraumatic, PERRLA, EOMI, Mucous Memb Moist/[place] Neck: Supple, No JVD Lungs: Clear to Auscultation Heart: Regular Rate Abdomen: Normal Bowel Sounds, Soft, No Tenderness Extremities: No Edema Skin: Other (Incision healing well) Neuro: Other (Proximal weakness Both lower limbs hip flex 3+/5 Knee 4/5 Dorsiflex 5/5) Psych/Mental Status: Mental Status NL GALO COLVIN MD Dec 07, 2017 14:51
--- NOTE | 2017-12-07 15:09 | Therapy Group Daily Note ---
Therapy Daily Group Note Patient Education Topic Other List Below (Education over Memory & Memory Strategies) Exercises LE Seated Exercise, UE Exercise Other/Notes Pt was propelled to PT/OT Group in [facility]. Group consisted of Introduction (Name, Where You are From & Most Ornery Trick You have Ever Played), Socialization, Seated UE/LE Ex, ARU Description, Education over Memory & Memory Strategies. Pt participated by giving an individualized example of a trick pt has played as well as an example of a strategy they use to help remember important items. Pt also participated in Seated Ex and was able to toss a gama bag when trying to participate in Memory Activity. Pt returned to room to finish OT with Therapist. Start Time: 13:00 Stop Time: 14:20 Total Billed Treatment Time: 80 Total Billed Treatment 1, GRP LIANNA LOWRY PTA Dec 07, 2017 15:09
--- NOTE | 2017-12-07 15:55 | Occupational Ther Daily Note ---
OT Current Status-Daily Note Subjective Pt sitting in w/c, agrees to therapy. Pt reports 8/10 back pain. Mental Status/Objective Functional Andrew Measure 0=Not Assessed/NA 4=Minimal Assistance 1=Total Assistance 5=Supervision or Setup 2=Maximal Assistance 6=Modified Andrew 3=Moderate Assistance 7=Complete Andrew ADL-Treatment Pt sit to stand with minimal assistance. Transfer to toilet with minimal assistance using FWW. Pt able to complete toileting hygiene, requires min assist for balance during clothing management. Pt completed sponge bath while seated in w/c. Pt able to wash upper body, alex area, and bilateral upper legs with SBA. Requires assist for lower legs/feet and buttocks. Don gown with assist secondary to IV. Assist required to start pants over feet, will require adaptive equipment. Max assist overall for pants. Total assist for socks at this time. Will require adaptive equipment secondary to back precautions. Pt transferred to EOB with minimal assistance. Required assist for LE during sit to supine. Max assist to doff/don brace during session. Pt resting in bed with needs met after session. Functional Andrew Measure 0=Not Assessed/NA 4=Minimal Assistance 1=Total Assistance 5=Supervision or Setup 2=Maximal Assistance 6=Modified Andrew 3=Moderate Assistance 7=Complete IndependenceIRFPAI Quality Coding Scale 6 Independent with activity with or without an assistive device 5 Patient requires set up or clean up by helper. Patient completes activity by themselves 4 Supervision or touching assist (CGA). [place] provide cues , steadying assist 3 The helper provides less than half the effort to complete the activity 2 The helper provides more than half the effort to complete the activity 1 Dependent. The helper does all the effort to complete an activity 7 Patient refused to complete or attempt activity 9 The patient did not perform the activity before the current illness or injury 88 Not attempted due to Medical conditions or safety concerns Bathing (FIM): 3 Shower/Bathe Self (QC): 3 Lower Body Dressing (FIM): 2 Lower Body Dressing (QC): 2 On/Off Footwear (QC): 1 Toileting (FIM): 4 Toilet/Commode Transfer (FIM): 4 OT Short Term Goals Short Term Goals Transfers (B,C,W/C) (FIM): 4 1=Demonstrate adherence to instructed precautions during ADL tasks. 2=Patient will verbalize/demonstrate understanding of assistive devices/ modifications for ADL. 3=Patient will improve strength/tolerance for activity to enable patient to perform ADL's. OT Gear Repair Supervisor Goals Gear Repair Supervisor Goals Time Frame: Dec 28, 2017 Eating (FIM): 6 Eating (QC): 6 Groomin Oral Hygiene (QC): 6 Bathing(FIM): 5 Shower/Bathe Self (QC): 5 Upper Body Dressing(FIM): 6 Upper Body Dressing (QC): 6 Lower Body Dressing(FIM): 5 Lower Body Dressing (QC): 5 On/Off Footwear (QC): 5 Toileting(FIM): 6 Toileting Hygiene (QC): 6 Toilet/Commode Transfer(FIM): 6 Toilet/Commode Transfer (QC): 6 Shower Transfer(FIM): 5 Additional Goals: 1-Demonstrate ADL Tasks, 2-Verbalize Understanding, 3- ImproveStrength/French 1=Demonstrate adherence to instructed precautions during ADL tasks. 2=Patient will verbalize/demonstrate understanding of assistive devices/ modifications for ADL. 3=Patient will improve strength/tolerance for activity to enable patient to perform ADL's. OT Education/Plan Discharge Recommendations Plan/Recommendations: Continue POC Treatment Plan/Plan of Care Patient would benefit from OT for education, treatment and training to promote independence in ADL's, mobility, safety and/or upper extremity function for ADL' s. Plan of Care: ADL Retraining, Functional Mobility, Group Exercise/Act as Ind, UE Funct Exercise/Act Treatment Duration: Dec 28, 2017 Frequency: At least 5 of 7 days/Wk (IRF) Estimated Hrs Per Day: 1.5 hours per day Agreement: Yes Rehab Potential: Fair Time/GCodes Start Time: 14:20 Stop Time: 14:50 Total Time Billed (hr/min): 30 Billed Treatment Time 1 visit, ADLx2(30minutes) ADITYA JOSE OT Dec 07, 2017 15:55
--- NOTE | 2017-12-07 16:03 | ST Cognitive Linguistic Eval ---
Speech Evaluation-General Medical Diagnosis lumbar stenosis with radiculopathy Onset Date: Dec 05, 2017 Therapy Diagnosis Therapy Diagnosis: Cognition Precautions Precautions/Isolations: Fall Prevention, Standard Precautions, Pressure Ulcer Referral Referring Physician: Kulwinder Levine Reason for Referral: Evaluation/Treatment Medical History Pertinent Medical History: Arthritis, COPD, GERD, HTN, Smoking Social History Current Living Status: Spouse (pt states she has to assist spouse) Speech PLF-Current Status Prior Level of Function Pt was independent Subjective Pt in bed. Pleasant and cooperative. Pain Numeric Pain Scale: 5-Moderate Pain Location: Posterior Location Body Site: Back Language Eval: Auditory Comprehends Simple Yes/No Ques: Functional Follows 1-Step Commands: Functional Follows Complex Directions: Functional Follows General Conversations: Functional Language Eval: Verbal Language Completes Spontaneous Greeting: Functional Produces Auto, Serial Info: Functional Imitates Simple Words/Phrases: Functional Word Finding: Functional Requests Basic Needs: Functional States Basic Personal Info: Functional Expresses Complex Ideas: Functional Language Evaluation: Reading NT Objective Cognitive Domain Attention: WNL Memory: WNL Problem Solving: Functional Objective Results [facility] was administered to assess cognitive-linguistic functioning. Results are as follows: Orientation - Pt oriented x 3 Memory - 3 word recall was 3/3 for immediate, delayed and remote delay. Sequencing/organization - Pt was 4/4 correct. Problem Solving - Simple was 4/4 correct; Abstract/complex was 2/2 correct and Comparisons was 4/5 correct. Speech/language - WNL Oral Motor/Speech Production WNL Impression Functional cognitive-linguistic skills. Communication/Social Cognition Comprehension: 7 Expression: 7 Social Interaction: 7 Problem Solvin Memory: 7 Speech Patient Assess Expression of Ideas/Wants: Expression (4) Understanding Verbal Content: Understands (4) Brief Interview-Mental Status: Yes Repetition of Three Words: Three (3) Temporal Orientation: Year: Correct (3) Temporal Orientation: Month: Accurate within 5 days(2) Temporal Orientation: Day: Correct (1) Recall : Wear to say "Sock": Yes, no cue required (2) Recall : Color: Yes, no cue required (2) Recall : Bed: Yes, no cue required (2) Speech Short Term Goals Short Term Goals Short Term Goals no STGS established as skilled ST not indicated. Speech Repair Department Supervisor Goals Jail Goals no LTGs established as pt does not require skilled ST Speech-Plan Patient/Family Goals Patient/Family Goals: to return home Treatment Plan Speech Therapy Treatment Plan: Discontinue ST pt does not require skilled ST services Frequency: Modified Program (IRF) (0) Estimated Hrs Per Day: Other (0) Rehab Potential: Fair Pt/Family Agrees to Plan: Yes Safety Risks/Education Teaching Recipient: Patient Teaching Methods: Discussion Response to Teaching: Verbalize Understanding Time Speech Therapy Time In: 15:15 Speech Therapy Time Out: 15:30 Total Billed Time: 15 Billed Treatment Time 1, SPSNDAMANDAP MERYL Adams Dec 07, 2017 16:03
[2017-12-07] MEDS ORDERED: FLEET ENEMA ADULT 1 EA BTL PR PRN (18:45)
[2017-12-07] MEDS: RT-ALBUTEROL SULF 2.5 MG/3 ML PRE-MIX VIAL IH SCH (19:44)
[2017-12-07] MEDS: RT-BUDESONIDE NEBS 0.5 MG/2ML (PULMICORT) AMP INH SCH (19:45)
[2017-12-07] MEDS: HYDROcodone/APAP 5 MG/325 MG (LORTAB) TAB PO PRN (21:15)
[2017-12-07] MEDS: SIMvastatin 40 MG (ZOCOR) TAB PO SCH (21:16)
[2017-12-08] MEDS: HYDROcodone/APAP 5 MG/325 MG (LORTAB) TAB PO PRN ×4 (02:03→20:43)
[2017-12-08 05:02] VITALS: BP 132/67
[2017-12-08] MEDS: PANTOPRAZOLE 40 MG (PROTONIX) TAB PO SCH (06:24)
[2017-12-08] MEDS: RT-BUDESONIDE NEBS 0.5 MG/2ML (PULMICORT) AMP INH SCH ×2 (06:55→19:59)
[2017-12-08] MEDS: RT-ALBUTEROL SULF 2.5 MG/3 ML PRE-MIX VIAL IH SCH ×4 (06:55→20:00)
[2017-12-08] MEDS: TRIAMTERENE/HCTZ 75-50 (MAXZIDE,DYAZIDE) TABLET PO SCH (08:53)
[2017-12-08] MEDS: meTOprolol SUCCINATE 100 MG (TOPROL XL) TAB PO SCH (08:54)
[2017-12-08] MEDS: lisINopril 20 MG (PRINIVIL) TABLET PO SCH (08:54)
[2017-12-08 08:55] VITALS: BP 122/67
[2017-12-08] MEDS ORDERED: HYDROCHLOROTHIAZIDE 25 MG (HCTZ) TAB PO SCH (09:00)
--- NOTE | 2017-12-08 10:33 | Occupational Ther Daily Note ---
OT Current Status-Daily Note Subjective Pt alert, lying in bed. Pt c/o pain with movement and wearing brace or pants, did not rate. Pt agrees to therapy. Pt states "I just want to get this done so I can get back in bed." COOLEY educated pt on ARU expectations and encouraged pt to push and sit up as long as. Pt has O2 on at 2L though constant reminders needed to breath through nose instead of mouth was needed. Nrsg requested O2 extension for room use. Mental Status/Objective Patient Orientation: Person, Place, Time, Situation Functional Parker Measure 0=Not Assessed/NA 4=Minimal Assistance 1=Total Assistance 5=Supervision or Setup 2=Maximal Assistance 6=Modified Parker 3=Moderate Assistance 7=Complete Parker Attachments: Oxygen (2L) ADL-Treatment Min A for supine to sitting using HOB elevated fully, bed rails and hand hold to pull on with assist to scoot hips forward to EOB. Ambulated with CGA using FWW to toilet, transferred to toilet and completed hygiene with SBA, grabbars and FWW. Ambulated to shower with FWW, transferred to shower using FWW, shower bench and grabbars with CGA. Completed shower using long handle sponge, grabbars, shower bench and hand held shower after set up with SBA for safety. Pt was educated on using lower body dressing AE. Tied hospital gown at neck to allow pt to machine puller and laster head, due to pt declining to don/doff shirt. Pt states that it hurts her back to have a shirt on, it is to tight. Pt was able to thread arms into sleeves and machine puller and laster head. Pt was able to don/doff underwear without AE with minimal bending. Used sock aid to don socks after instruction, drsg stick to doff socks after instruction. Pt sat in front of sink to complete grooming, after set up (turning water on/off and clean up). Mod A to go from supine to sitting, lifting and positioning feet into bed was needed. Functional Parker Measure 0=Not Assessed/NA 4=Minimal Assistance 1=Total Assistance 5=Supervision or Setup 2=Maximal Assistance 6=Modified Parker 3=Moderate Assistance 7=Complete IndependenceIRFPAI Quality Coding Scale 6 Independent with activity with or without an assistive device 5 Patient requires set up or clean up by helper. Patient completes activity by themselves 4 Supervision or touching assist (CGA). [place] provide cues , steadying assist 3 The helper provides less than half the effort to complete the activity 2 The helper provides more than half the effort to complete the activity 1 Dependent. The helper does all the effort to complete an activity 7 Patient refused to complete or attempt activity 9 The patient did not perform the activity before the current illness or injury 88 Not attempted due to Medical conditions or safety concerns Grooming (FIM): 5 Oral Hygiene (QC): 5 Bathing (FIM): 5 Bathing Location: L Arm, R Arm, L Upper Leg, R Upper Leg, L Lower Leg ( including foot), R Lower Leg (including foot), Chest, Abdomen, Buttocks, Perineal Area Shower/Bathe Self (QC): 4 Upper Body (FIM): 5 Upper Body Dressing (QC): 5 Lower Body Dressing (FIM): 5 Lower Body Dressing (QC): 4 On/Off Footwear (QC): 5 Toileting (FIM): 5 Toileting Hygiene (QC): 4 Toilet/Commode Transfer (FIM): 5 Toilet Transfer (QC): 4 Shower Transfer(FIM): 4 Other Treatment Pt transported to therapy gym via w/c. Pt completed resistive clothespins, 1x each hand. Pt took multiple breaks during task, increased time to complete. Transported pt back to room via w/c and mod A to get back into bed, assist with LE's. After therapy, pt lying on L side with call light/phone in reach. All needs met in room. OT Short Term Goals Short Term Goals Transfers (B,C,W/C) (FIM): 4 1=Demonstrate adherence to instructed precautions during ADL tasks. 2=Patient will verbalize/demonstrate understanding of assistive devices/ modifications for ADL. 3=Patient will improve strength/tolerance for activity to enable patient to perform ADL's. OT Alf Goals Unit Manager Rn Goals Time Frame: Dec 28, 2017 Eating (FIM): 6 Eating (QC): 6 Groomin Oral Hygiene (QC): 6 Bathing(FIM): 5 Shower/Bathe Self (QC): 5 Upper Body Dressing(FIM): 6 Upper Body Dressing (QC): 6 Lower Body Dressing(FIM): 5 Lower Body Dressing (QC): 5 On/Off Footwear (QC): 5 Toileting(FIM): 6 Toileting Hygiene (QC): 6 Toilet/Commode Transfer(FIM): 6 Toilet/Commode Transfer (QC): 6 Shower Transfer(FIM): 5 Additional Goals: 1-Demonstrate ADL Tasks, 2-Verbalize Understanding, 3- ImproveStrength/French 1=Demonstrate adherence to instructed precautions during ADL tasks. 2=Patient will verbalize/demonstrate understanding of assistive devices/ modifications for ADL. 3=Patient will improve strength/tolerance for activity to enable patient to perform ADL's. OT Education/Plan Discharge Recommendations Plan/Recommendations: Continue POC Treatment Plan/Plan of Care Patient would benefit from OT for education, treatment and training to promote independence in ADL's, mobility, safety and/or upper extremity function for ADL' s. Plan of Care: ADL Retraining, Functional Mobility, Group Exercise/Act as Ind, UE Funct Exercise/Act Treatment Duration: Dec 28, 2017 Frequency: At least 5 of 7 days/Wk (IRF) Estimated Hrs Per Day: 1.5 hours per day Agreement: Yes Rehab Potential: Fair Time/GCodes Start Time: 09:00 Stop Time: 10:30 Total Time Billed (hr/min): 90 Billed Treatment Time 1 visit-ADL 6 (67 min) EX 2 (23 min) MARICEL HERBERT Dec 08, 2017 10:33
--- NOTE | 2017-12-08 11:54 | Progress Note-Hospitalist ---
Subjective HPI/CC On Admission Date Seen by Provider: Dec 08, 2017 Time Seen by Provider: 11:45 Subjective/Events-last exam Patient doing well overall Per dissipating and therapy Pain is well-controlled Large bowel movement but it was hard so will initiate MiraLAX and stool softeners Potassium will be restarted and check labs in the morning Using incentive spirometer and nebulizer treatments are ordered Review of Systems Gastrointestinal: Constipation Musculoskeletal: back pain Objective Exam Vital Signs Vital Signs Date Time Temp Pulse Resp B/P (MAP) Pulse Ox O2 Delivery O2 Flow Rate FiO2 12/08/17 10:33 97 Nasal Cannula 2.00 12/08/17 08:55 75 122/67 (85) 12/08/17 05:02 97.8 20 Capillary Refill : General Appearance: No Apparent Distress, WD/WN, Chronically ill Respiratory: Chest Non Tender, No Accessory Muscle Use, No Respiratory Distress , Decreased Breath Sounds Cardiovascular: Regular Rate, Rhythm, No Edema, No Gallop, No JVD, No Murmur, Normal Peripheral Pulses Back: Decreased Range of Motion Neurologic/Psychiatric: Alert, Oriented x3, No Motor/Sensory Deficits, Normal Mood/Affect Results/Procedures Lab Patient resulted labs reviewed. Assessment/Plan Assessment and Plan Assess & Plan/Chief Complaint Assessment: Status post extensive lumbar stenosis surgery uncomplicated Severe COPD oxygen dependent Severe debility requiring inpatient rehabilitation Status post severe constipation resolution start on softening regimen Smoker Plan: Restart potassium supplement MiraLAX regimen Pain control Inpatient rehabilitation therapy protocol Diagnosis/Problems Diagnosis/Problems (1) Lumbar spinal stenosis Status: Chronic (2) Oxygen dependent Status: Chronic (3) Hypertension Status: Chronic (4) GERD (gastroesophageal reflux disease) Status: Chronic (5) Hyperlipidemia Status: Chronic (6) COPD (chronic obstructive pulmonary disease) Status: Chronic (7) Smoker Status: Chronic Clinical Quality Measures DVT/VTE Risk/Contraindication: Risk Factor Score Per Nursin RFS Level Per Nursing on Admit: 4+=Very High MAGDALENE ANDRES DO Dec 08, 2017 11:54
--- NOTE | 2017-12-08 11:55 | Physical Therapy Daily Note ---
PT Daily Note-Current Subjective Pt laying Supine in bed upon arrival. Pt agrees to PT but reports needing to use BSC first. Pain Numeric Pain Scale: 6 Location: Incisional Location Body Site: Back Pain Description: Ache, Tightness Mental Status Patient Orientation: Person, Place, Situation Attachments: Other-See Comments (Lumbar Brace) Transfers Functional Darke Measure 0=Not Assessed/NA 4=Minimal Assistance 1=Total Assistance 5=Supervision or Setup 2=Maximal Assistance 6=Modified [place]ke 3=Moderate Assistance 7=Complete IndependenceIRFPAI Quality Coding Scale 6 Independent with activity with or without an assistive device 5 Patient requires set up or clean up by helper. Patient completes activity by themselves 4 Supervision or touching assist (CGA). [place] provide cues , steadying assist 3 The helper provides less than half the effort to complete the activity 2 The helper provides more than half the effort to complete the activity 1 Dependent. The helper does all the effort to complete an activity 7 Patient refused to complete or attempt activity 9 The patient did not perform the activity before the current illness or injury 88 Not attempted due to Medical conditions or safety concerns Scootin Rollin Supine to/from Sit: 3 Sit to/from Stand: 4 Sit to Lying (QC): 4 Sit to Stand (QC): 4 Weight Bearing Right Lower Extremity: Right Full Weight Bearing Left Lower Extremity: Left Full Weight Bearing Gait Training Does the Patient Walk?: Yes Distance (FIM): 1=up to 49 ft Distance: 5' Gait Level of Assist: 4 Gait Persons Needed: 1 Gait Assistive Device: FWW Pt walks with a stiff, antalgic posture. Exercises Supine Ex: Quad Set, Glut sets, Straight leg raise, Hip abd/add Supine Reps: 10 Seated Therapy Exercises: Ankle pumps, Long arc quads, Hip flexion, Kicking activity Seated Reps: 15 Treatments Pt transfers from Supine to EOB then stands to transfer to BSC using FWW. Pt transfers back to EOB before completing Seated Ex. Pt fatigues so transfers back to Supine. Pt completes Supine Ex then DINING SERVICE WORKER assists with positioning pillow for R sidelying. Pt has all needs met. Assessment Current Status: Fair Progress Pt is limited by fatigue and reported pain in back during tx. PT Short Term Goals Short Term Goals Time Frame: Dec 14, 2017 Transfers (B,C,W/C) (FIM): 4 Gait (FIM): 2 Gait Distance Comment: 50' Gait Level of Assist: 5 Gait Assistive Device: FWW PT Machine Sewer Goals Machine Sewer Goals PT Machine Sewer Goals Time Frame: Dec 28, 2017 Transfers (B,C,W/C) (FIM): 5 Sit to Lying (QC): 4 Lying-Sitting on Side/Bed(QC): 4 Sit to Stand (QC): 4 Rollin Roll Left to Right (QC): 4 Chair/Ugu-vi-Ckrov Xfer(QC): 4 Car Transfer (QC): 4 Gait (FIM): 5 Distance: 150' Walk 10 feet (QC): 4 Walk 10ft-Uneven Surface(QC): 4 Walk 50ft with 2 Turns (QC): 4 Walk 150 ft (QC): 4 Gait Level of Assist: 5 Gait Assistive Device: FWW Stairs (FIM): 2 # of Steps: 4 1 Step (curb) (QC): 4 4 Steps (QC): 4 Stairs Level Of Assist: 4 PT Plan Problem List Problem List: Activity Tolerance, Functional Strength, Safety, Balance, Gait, Transfer, Bed Mobility Treatment/Plan Treatment Plan: Continue Plan of Care Treatment Plan: Bed Mobility, Concurrent Therapy, Education, Functional Activity French, Functional Strength, Group Therapy, Gait, Safety, Therapeutic Exercise, Transfers Treatment Duration: Dec 28, 2017 Frequency: At least 5 of 7 days/Wk (IRF) Estimated Hrs Per Day: 1.5 hours per day Patient and/or Family Agrees t: Yes Safety Risks/Education Patient Education: Transfer Techniques, Correct Positioning, Safety Issues Teaching Recipient: Patient Teaching Methods: Discussion Response to Teaching: Verbalize Understanding Time/GCodes Time In: 1100 Time Out: 1145 Total Billed Treatment Time: 45 Total Billed Treatment 1, FA (15m) & EX x2 (30m) G Codes Necessary: LIANNA Merrill DINING SERVICE WORKER Dec 08, 2017 11:55
[2017-12-08] MEDS: DOCUSATE SODIUM 100 MG (COLACE) CAP PO SCH ×2 (11:57→20:40)
[2017-12-08] MEDS: POLYETHYLENE GLYCOL 17 GM (MIRALAX) PACK PO SCH ×2 (11:57→20:47)
[2017-12-08] MEDS: KCL 10 MEQ TAB (MICRO K) PO SCH ×2 (11:57→20:40)
--- NOTE | 2017-12-08 15:04 | Therapy Group Daily Note ---
Therapy Daily Group Note Patient Education Topic Home Safety Exercises LE Seated Exercise, UE Exercise Other/Notes Pt transported via w/c to OT/PT group in [facility]. Group consisted of introductions (name, place living, have you ever fallen), UE/LE seated exercises , home safety education and pt experiences/strategies for being safe at home.. Pt introduced self appropriately and actively listened to peers. Pt contributed to and initiated conversations throughout group. Pt was able to complete UE/LE exercises, fatigued easily. Verbalized understanding topics and was able to give examples from personal experience. Pt was able to stand for positioning change. Pt verbalized understanding of educational topic and discuss alternatives for home safety . Pt then maneuvered w/c back to room and sat in recliner after therapy. Call light/phone in reach, all needs met in room. Start Time: 13:00 Stop Time: 14:20 Total Billed Treatment Time: 80 Total Billed Treatment 1-GRP MARICEL HERBERT Dec 08, 2017 15:03
[2017-12-08 15:46] VITALS: BP 101/64
--- NOTE | 2017-12-08 19:26 | PM & R (SOAP) Progress Note ---
Subjective This was a face to face visit with the patient. Date Seen by Provider: Dec 08, 2017 Time Seen by Provider: 19:10 Subjective/Events-last exam Patient was seen in her room this evening Patient mod assist for transfers.Meds adjusted for constipation Date Identified: Dec 08, 2017 Time Identified: 12:00 Medication Intervention: Meds adjusted for constipation Objective Physician Exam Last Set of Vital Signs Vital Signs Date Time Temp Pulse Resp B/P (MAP) Pulse Ox O2 Delivery O2 Flow Rate FiO2 12/08/17 15:46 97.4 62 14 101/64 (76) 97 Nasal Cannula 2.00 Capillary Refill : I&O Intake and Output 12/08/17 00:00 Intake Total 200 ml Balance 200 ml Intake Oral 200 ml # Voids 3 Daily Weight Change No General: Alert, Oriented X3, Cooperative, No Acute Distress HEENT: Atraumatic, PERRLA, EOMI, Mucous Memb Moist/[place] Neck: Supple, No JVD Lungs: Clear to Auscultation Heart: Regular Rate Abdomen: Normal Bowel Sounds, Soft, No Tenderness Extremities: No Edema Skin: Other (Incision healing well) Neuro: Other (Proximal weakness Both lower limbs hip flex 3+/5 Knee 4/5 Dorsiflex 5/5) Psych/Mental Status: Mental Status NL Assessment/Plan Assessment and Plan Lumbar spinal stenosis s/p redo Surgery Constipation COPD HTN 02 dependence HLP GERD Plan Continue PT/OT Team Conference next week F/U with DR Galvan as per their schedule Co-Morbidities that are continuing to impact the rehab process: (include details ) GALO COLVIN MD Dec 08, 2017 19:26
[2017-12-08] MEDS: RT-ALBUTEROL/IPRATROPIUM 3 ML (DUONEB) VIAL INH PRN (19:59)
[2017-12-08] MEDS: SIMvastatin 40 MG (ZOCOR) TAB PO SCH (20:40)
[2017-12-09] MEDS: HYDROcodone/APAP 5 MG/325 MG (LORTAB) TAB PO PRN ×3 (00:45→11:36)
[2017-12-09 05:39] VITALS: BP 126/66
[2017-12-09 06:03] LABS: BASOPHILS % (AUTO) 0 % (0-10); EOSINOPHILS # (AUTO) 0.1 10^3/uL (0.0-0.3); EOSINOPHILS % (AUTO) 1 % (0-10); HEMATOCRIT 27 % (35-52); HEMOGLOBIN 9.3 G/DL (11.5-16.0); LYMPHOCYTES # (AUTO) 1.7 X 10^3 (1.0-4.0); LYMPHOCYTES % (AUTO) 21 % (12-44); MEAN CORPUSCULAR HEMOGLOBIN 31 PG (25-34); MEAN CORPUSCULAR HGB CONC 35 G/DL (32-36); MEAN CORPUSCULAR VOLUME 89 FL (80-99); MEAN PLATELET VOLUME 10.2 FL (7.4-10.4); MONOCYTES # (AUTO) 1.4 X 10^3 (0.0-1.0); MONOCYTES % (AUTO) 18 % (0-12); NEUTROPHILS # (AUTO) 4.8 X 10^3 (1.8-7.8); NEUTROPHILS % (AUTO) 60 % (42-75); PLATELET COUNT 198 10^3/uL (130-400); RED BLOOD COUNT 2.98 10^6/uL (4.35-5.85); RED CELL DISTRIBUTION WIDTH 13.6 % (10.0-14.5); WHITE BLOOD COUNT 7.9 10^3/uL (4.3-11.0)
[2017-12-09 06:22] LABS: ALANINE AMINOTRANSFERASE 23 U/L (0-55); ALBUMIN 3.4 GM/DL (3.2-4.5); ALKALINE PHOSPHATASE 56 U/L (40-136); BILIRUBIN,TOTAL 0.4 MG/DL (0.1-1.0); BUN/CREATININE RATIO 17; CALCIUM 9.2 MG/DL (8.5-10.1); CARBON DIOXIDE 25 MMOL/L (21-32); CHLORIDE 92 MMOL/L (98-107); GFR ESTIMATED > 60; GLUCOSE 103 MG/DL (70-105); SODIUM 131 MMOL/L (135-145)
[2017-12-09] MEDS: PANTOPRAZOLE 40 MG (PROTONIX) TAB PO SCH (06:28)
[2017-12-09] MEDS: RT-ALBUTEROL SULF 2.5 MG/3 ML PRE-MIX VIAL IH SCH ×4 (06:28→19:48)
[2017-12-09] MEDS: RT-BUDESONIDE NEBS 0.5 MG/2ML (PULMICORT) AMP INH SCH ×2 (06:28→19:51)
--- NOTE | 2017-12-09 08:59 | Occupational Ther Daily Note ---
OT Current Status-Daily Note Subjective Pt alert, lying in bed. Pt agrees to therapy. No c/o pain at this time. Pt states she did not sleep very well. Mental Status/Objective Patient Orientation: Person, Place, Time, Situation Functional [place] Measure 0=Not Assessed/NA 4=Minimal Assistance 1=Total Assistance 5=Supervision or Setup 2=Maximal Assistance 6=Modified [place] 3=Moderate Assistance 7=Complete [place] Attachments: Oxygen, Other-See Comments (back brace) ADL-Treatment Pt declined shower. Supine to sitting EOB with HOB fully raised and bed rails, mod I. Assist to lift LE's into bed going from sitting EOB to supine. Transferred with close SBA from EOB to w/c. Sitting at sink, pt completed sponge bath and grooming after set up. Toilet transfer from w/c to toilet using grabbar, SBA. Functional [place] Measure 0=Not Assessed/NA 4=Minimal Assistance 1=Total Assistance 5=Supervision or Setup 2=Maximal Assistance 6=Modified [place] 3=Moderate Assistance 7=Complete IndependenceIRFPAI Quality Coding Scale 6 Independent with activity with or without an assistive device 5 Patient requires set up or clean up by helper. Patient completes activity by themselves 4 Supervision or touching assist (CGA). [place] provide cues , steadying assist 3 The helper provides less than half the effort to complete the activity 2 The helper provides more than half the effort to complete the activity 1 Dependent. The helper does all the effort to complete an activity 7 Patient refused to complete or attempt activity 9 The patient did not perform the activity before the current illness or injury 88 Not attempted due to Medical conditions or safety concerns Other Treatment Transported pt to therapy gym via w/c. 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 After therapy, pt lying in bed with call light/phone in reach. All needs met in room. OT Short Term Goals Short Term Goals Transfers (B,C,W/C) (FIM): 4 1=Demonstrate adherence to instructed precautions during ADL tasks. 2=Patient will verbalize/demonstrate understanding of assistive devices/ modifications for ADL. 3=Patient will improve strength/tolerance for activity to enable patient to perform ADL's. OT Nursing Home Goals Nursing Home Goals Time Frame: Dec 28, 2017 Eating (FIM): 6 Eating (QC): 6 Groomin Oral Hygiene (QC): 6 Bathing(FIM): 5 Shower/Bathe Self (QC): 5 Upper Body Dressing(FIM): 6 Upper Body Dressing (QC): 6 Lower Body Dressing(FIM): 5 Lower Body Dressing (QC): 5 On/Off Footwear (QC): 5 Toileting(FIM): 6 Toileting Hygiene (QC): 6 Toilet/Commode Transfer(FIM): 6 Toilet/Commode Transfer (QC): 6 Shower Transfer(FIM): 5 Additional Goals: 1-Demonstrate ADL Tasks, 2-Verbalize Understanding, 3- ImproveStrength/French 1=Demonstrate adherence to instructed precautions during ADL tasks. 2=Patient will verbalize/demonstrate understanding of assistive devices/ modifications for ADL. 3=Patient will improve strength/tolerance for activity to enable patient to perform ADL's. OT Education/Plan Discharge Recommendations Plan/Recommendations: Continue POC Treatment Plan/Plan of Care Patient would benefit from OT for education, treatment and training to promote independence in ADL's, mobility, safety and/or upper extremity function for ADL' s. Plan of Care: ADL Retraining, Functional Mobility, Group Exercise/Act as Ind, UE Funct Exercise/Act Treatment Duration: Dec 28, 2017 Frequency: At least 5 of 7 days/Wk (IRF) Estimated Hrs Per Day: 1.5 hours per day Agreement: Yes Rehab Potential: Fair Time/GCodes Start Time: 08:00 Stop Time: 09:00 Total Time Billed (hr/min): 60 Billed Treatment Time 1 visit-ADL 3 (50 min) EX 1 (10 min) MARICEL HERBERT Dec 09, 2017 08:59
[2017-12-09] MEDS: POLYETHYLENE GLYCOL 17 GM (MIRALAX) PACK PO SCH ×2 (09:17→20:28)
[2017-12-09] MEDS: KCL 10 MEQ TAB (MICRO K) PO SCH ×2 (09:33→20:28)
[2017-12-09] MEDS: DOCUSATE SODIUM 100 MG (COLACE) CAP PO SCH ×2 (09:33→20:28)
[2017-12-09] MEDS: lisINopril 20 MG (PRINIVIL) TABLET PO SCH (09:33)
[2017-12-09] MEDS: CYCLOBENZAPRINE 10 MG (FLEXERIL) TAB PO PRN ×2 (09:34→17:23)
[2017-12-09] MEDS: TRIAMTERENE/HCTZ 75-50 (MAXZIDE,DYAZIDE) TABLET PO SCH (09:34)
[2017-12-09] MEDS: meTOprolol SUCCINATE 100 MG (TOPROL XL) TAB PO SCH (09:34)
--- NOTE | 2017-12-09 12:02 | Physical Therapy Daily Note ---
PT Daily Note-Current Subjective Pt. stats she has pain at 7/10 in back. States she is worried about her at home who also needs much care. States she did not sleep last night and is looking forward to a nap this afternoon Pain Numeric Pain Scale: 7 Location: Medial Location Body Site: Back Pain Description: Pressure Mental Status Patient Orientation: Normal For Age Attachments: Oxygen (2L), Other-See Comments (back brace) Transfers Functional [place] Measure 0=Not Assessed/NA 4=Minimal Assistance 1=Total Assistance 5=Supervision or Setup 2=Maximal Assistance 6=Modified [place] 3=Moderate Assistance 7=Complete IndependenceIRFPAI Quality Coding Scale 6 Independent with activity with or without an assistive device 5 Patient requires set up or clean up by helper. Patient completes activity by themselves 4 Supervision or touching assist (CGA). [place] provide cues , steadying assist 3 The helper provides less than half the effort to complete the activity 2 The helper provides more than half the effort to complete the activity 1 Dependent. The helper does all the effort to complete an activity 7 Patient refused to complete or attempt activity 9 The patient did not perform the activity before the current illness or injury 88 Not attempted due to Medical conditions or safety concerns Transfers (B, C, W/C) (FIM): 3 Scootin Rollin Supine to/from Sit: 3 Sit to/from Stand: 4 Weight Bearing Right Lower Extremity: Right Full Weight Bearing Left Lower Extremity: Left Full Weight Bearing Gait Training Does the Patient Walk?: Yes Gait (FIM): 2 Distance (FIM): 9=247-65 ft (100x3, 50x1) Gait Level of Assist: 4 Gait Persons Needed: 1 Gait Assistive Device: FWW appears dyspneic, O2 at 2 L with sats at 88 to 95%. Exercises Supine Ex: Ankle pumps, Quad Set, Rolling, Glut sets, Heel Slides, Short Arc Quads, Scooting, Hip abd/add Supine Reps: 12 Seated Therapy Exercises: Ankle pumps, Sit to stand, Long arc quads, Hip flexion, Hip abd/add Seated Reps: 12 Treatments toileted with min assist for donning clean brief Assessment Current Status: Fair Progress pain, fatigue and some dyspnea limits participation PT Short Term Goals Short Term Goals Time Frame: Dec 14, 2017 Transfers (B,C,W/C) (FIM): 4 Gait (FIM): 2 Gait Distance Comment: 50' Gait Level of Assist: 5 Gait Assistive Device: FWW PT Nozzle Tender Goals Nozzle Tender Goals PT Nozzle Tender Goals Time Frame: Dec 28, 2017 Transfers (B,C,W/C) (FIM): 5 Sit to Lying (QC): 4 Lying-Sitting on Side/Bed(QC): 4 Sit to Stand (QC): 4 Rollin Roll Left to Right (QC): 4 Chair/Cdf-sx-Gsxaw Xfer(QC): 4 Car Transfer (QC): 4 Gait (FIM): 5 Distance: 150' Walk 10 feet (QC): 4 Walk 10ft-Uneven Surface(QC): 4 Walk 50ft with 2 Turns (QC): 4 Walk 150 ft (QC): 4 Gait Level of Assist: 5 Gait Assistive Device: FWW Stairs (FIM): 2 # of Steps: 4 1 Step (curb) (QC): 4 4 Steps (QC): 4 Stairs Level Of Assist: 4 PT Plan Treatment/Plan Treatment Plan: Continue Plan of Care Treatment Plan: Bed Mobility, Concurrent Therapy, Education, Functional Activity French, Functional Strength, Group Therapy, Gait, Safety, Therapeutic Exercise, Transfers Treatment Duration: Dec 28, 2017 Frequency: At least 5 of 7 days/Wk (IRF) Estimated Hrs Per Day: 1.5 hours per day Patient and/or Family Agrees t: Yes Safety Risks/Education Patient Education: Gait Training, Transfer Techniques, Correct Positioning, Disease Process, Safety Issues Teaching Recipient: Patient Teaching Methods: Demonstration, Discussion Response to Teaching: Verbalize Understanding, Return Demonstration, Reinforcement Needed Time/GCodes Time In: 1100 Time Out: 1200 Total Billed Treatment Time: 60 Total Billed Treatment 1,EX20m,GT15m,FA25m G Codes Necessary: SOWMYA Kam TEMP RECRUITER Dec 09, 2017 12:02
--- NOTE | 2017-12-09 14:18 | Therapy Group Daily Note ---
Therapy Daily Group Note Patient Education Topic Energy Cons, Other List Below (benefits of exercise ) Exercises LE Seated Exercise, UE Exercise Other/Notes Pt. participated in group PT OT session this date. pt. required assist in out bed, to dave back brace as well as to manage w/c to from [facility] area. Pt. was social and introduced herself to others and engaged appropriately. Pt. did participate in seated U&L extremity exercise and lead an exercise as per a written illustrated hand out. Pts. were educated on and shared their experience regarding energy conservation jesusita in home environment. Pts. were also educated in benefits of exercise as it applies to multiple diagnoses. Pt. to room after Rx with min to mod assist, O2 insitu and [place] at hand. Start Time: 13:00 Stop Time: 14:10 Total Billed Treatment Time: 70 Total Billed Treatment 1,GRP SOWMYA MORFIN BELT POLISHER Dec 09, 2017 14:18
--- NOTE | 2017-12-09 15:07 | PM & R (SOAP) Progress Note ---
Subjective This was a face to face visit with the patient. Date Seen by Provider: Dec 09, 2017 Time Seen by Provider: 07:50 Subjective/Events-last exam Patient was seen in her room this AM Patient min assist for transfers K replaced Hyponatremia and anemia noted. Date Identified: Dec 09, 2017 Time Identified: 08:00 Medication Intervention: K replacement Meds adjuted for constipation Review of Systems Gastrointestinal: Constipation Musculoskeletal: back pain Neurological: Weakness Objective Physician Exam Last Set of Vital Signs Vital Signs Date Time Temp Pulse Resp B/P (MAP) Pulse Ox O2 Delivery O2 Flow Rate FiO2 12/09/17 10:12 95 Nasal Cannula 2.00 12/09/17 05:39 99.0 98 19 126/66 (86) Capillary Refill : I&O Intake and Output 12/09/17 00:00 Intake Total 950 ml Output Total 1000 ml Balance -50 ml Intake Oral 950 ml Output Urine Total 1000 ml # Voids 4 # Bowel Movements 3 General: Alert, Oriented X3, Cooperative, No Acute Distress HEENT: Atraumatic, PERRLA, EOMI, Mucous Memb Moist/[place] Neck: Supple, No JVD Lungs: Clear to Auscultation Heart: Regular Rate Abdomen: Normal Bowel Sounds, Soft, No Tenderness Extremities: No Edema Skin: Other (Incision healing well) Neuro: Other (Proximal weakness Both lower limbs hip flex 3+/5 Knee 4/5 Dorsiflex 5/5) Psych/Mental Status: Mental Status NL Results Lab Data Laboratory Tests 12/09/17 05:15: White Blood Count 7.9, Red Blood Count 2.98L, Hemoglobin 9.3L, Hematocrit 27L, Mean Corpuscular Volume 89, Mean Corpuscular Hemoglobin 31, Mean Corpuscular Hemoglobin Concent 35, Red Cell Distribution Width 13.6, Platelet Count 198, Mean Platelet Volume 10.2, Neutrophils (%) (Auto) 60, Lymphocytes (%) (Auto) 21 , Monocytes (%) (Auto) 18H, Eosinophils (%) (Auto) 1, Basophils (%) (Auto) 0, Neutrophils # (Auto) 4.8, Lymphocytes # (Auto) 1.7, Monocytes # (Auto) 1.4H, Eosinophils # (Auto) 0.1, Basophils # (Auto) 0.0, Sodium Level 131L, Potassium Level 3.0L, Chloride Level 92L, Carbon Dioxide Level 25, Anion Gap 14, Blood Urea Nitrogen 10, Creatinine 0.60, Estimat Glomerular Filtration Rate > 60, BUN/ Creatinine Ratio 17, Glucose Level 103, Calcium Level 9.2, Corrected Calcium 9.7 , Total Bilirubin 0.4, Aspartate Amino Transf (AST/SGOT) 46H, Alanine Aminotransferase (ALT/SGPT) 23, Alkaline Phosphatase 56, Total Protein 6.0L, Albumin 3.4 Assessment/Plan Assessment and Plan Lumbar spinal stenosis and radiculopathy s/p redo surgery COPD Post op constipation treated Post op anemia HTN controlled with med 02 dependence chronic HLP GERD on med DVT Prophylaxis start lovenox subcut Plan Continue PT/OT Team Conference next week Goal return home with spouse Modified Independent to supervision for adls and mobility skills Co-Morbidities that are continuing to impact the rehab process: (include details ) GALO COLVIN MD Dec 09, 2017 15:07
--- NOTE | 2017-12-09 15:13 | Individualized Plan of Care ---
Individualized Plan of Care Rehab Nursing IPOC Order Admission Date Dec 07, 2017 at 11:00 Current Orders Orders Pt Evaluate/Treat Request (12/07/17 10:46) Request Ot Evaluate & Treat (12/07/17 10:46) Request For Cognitive Services (12/07/17 10:46) Admission Order(Inpt,Obs,Sdc) (12/07/17 11:14) Vital Signs: Routine (Order) 08,16,00 (12/07/17 11:14) Sequential Compression Device 08,20 (12/07/17 11:14) Boxcar Weigher-Inpt Rehab Con (12/07/17 11:14) Rehab Nursing Orders-Ipoc (12/07/17 11:14) Turn And Reposition Q2HR (12/07/17 11:14) Intake & Output 06,14,22 (12/07/17 11:14) Precautions (Aru) (12/07/17 11:14) Weekly Weight (Lbs) WEEK (12/07/17 11:14) Code/Resuscitation (12/07/17 11:14) Initiate Admission Nursing Pro .admission (12/07/17 11:14) Consult Physician (12/07/17 11:20) Alprazolam Tablet (Xanax Tablet) (12/07/17 11:30) Albuterol/Ipra Inhalation Soln (Duoneb I (12/07/17 11:30) Svn Small Volume Nebulizer (12/07/17 11:21) Lisinopril Tablet (Zestril Tablet) (12/08/17 09:00) Metoprolol Succinate (Xl) Tab (Toprol Xl (12/08/17 09:00) Pantoprazole Tablet (Protonix Tablet) (12/08/17 07:00) Simvastatin Tablet (Zocor Tablet) (12/07/17 21:00) Triamterene/Hctz 75-50 Tablet (Maxzide 7 (12/08/17 09:00) Pharmacy Communication (Pharmacy Communi (12/07/17 11:30) Ambulate 08,12,20 (12/07/17 12:43) Sequential Compression Device 08,20 (12/07/17 12:43) Dvt/Vte Risk - Notifiy Physici 08 (12/07/17 12:43) Albuterol Pre-Mix Nebs (Rt) (Proventil (12/07/17 13:15) General/Regular (12/07/17 Lunch) Cyclobenzaprine Tablet (Flexeril Tablet) (12/07/17 14:45) Hydrocodone/Apap 5/325 Tablet (Lortab 5 (12/07/17 14:45) Albuterol Pre-Mix Nebs (Rt) (Proventil (12/07/17 15:00) Budesonide Inhalation Solution (Pulmicor (12/07/17 21:00) Patient Visit (12/07/17 ) Pt Eval Moderate Complexity (12/07/17 ) Patient Visit (12/07/17 ) Therapeutic, Group (12/07/17 ) Hydrocodone/Apap 5/325 Tablet (Lortab 5 (12/07/17 18:45) Na Phos/Na Biphos Enema (Fleet Enema Ravindra (12/07/17 18:45) Patient Visit (12/07/17 ) Speech Sound Lang Comp (12/07/17 ) Docusate Sodium Capsule (Colace Capsule) (12/08/17 11:45) Polyethylene Glycol Powder Pkt (Miralax (12/08/17 11:45) Potassium Chloride (Tablet) (Klor Con Ta (12/08/17 11:45) Cbc With Automated Diff (12/09/17 06:00) Comprehensive Metabolic Panel (12/09/17 06:00) Patient Visit (12/08/17 ) Functional Activities, Ea 15 (12/08/17 ) Exercise Therap, Ea 15 Min (12/08/17 ) Patient Visit (12/08/17 ) Patient Visit (12/09/17 ) Exercise Therap, Ea 15 Min (12/09/17 ) Functional Activities, Ea 15 (12/09/17 ) Gait Training, Ea 15 Min (12/09/17 ) Rehab Nursing Orders: Ongoing Assess. of Cognitive Status, Ongoing Assess. of Function Status, Disease Management & Educaiton, DVT Prophylaxis, Fall Prevention, Fluid/Electrolyte/Nutrition Mgmt, Infection Prevention, Medication Management & Education, Management of Risks & Complications, Management of Skin Intergrity, Nutrition Management, Pain Management, Patient/Family Support PT IPOC Problem List: Activity Tolerance, Functional Strength, Safety, Balance, Gait, Transfer, Bed Mobility Treatment Plan: Continue Plan of Care Bed Mobility, Concurrent Therapy, Education, Functional Activity French, Functional Strength, Group Therapy, Gait, Safety, Therapeutic Exercise, Transfers Treatment Duration: Dec 28, 2017 Frequency: At least 5 of 7 days/Wk (IRF) Estimated Hrs Per Day: 1.5 hours per day OT IPOC Problems: Decreased Activ Tolerance, Decreased UE Strength, Dependent Transfers , Impaired Funct Balance, Impaired Self-Care Skills OT Treatment, Training and Edu: Yes Plan of Care: ADL Retraining, Functional Mobility, Group Exercise/Act as Ind, UE Funct Exercise/Act Treatment Duration: Dec 28, 2017 Frequency: At least 5 of 7 days/Wk (IRF) Estimated Hrs Per Day: 1.[address] IPOC Speech Therapy Treatment Plan: Discontinue ST Treatment Duration: Dec 09, 2017 Frequency: Modified Program (IRF) (0) Estimated Hrs Per Day: Other (0) Boxcar Weigher/Case Mgmt Boxcar Weigher/Case Managemen: Discharge Planning, Patient/Family Counseling Dietitian/Military Science Instructor Dietitian/Military Science Instructor to monitor nutritional status and make changes and/or recommendations as needed and work with speech pathology on dietary upgrades as the occur. 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 PMH HTN COPD 02 dependent GERD HLD Active tobaccoism Medical Prognosis: good Anticipated Length of Stay: 12-28-17 Modified Independent to supervision for adl and mobility skills Anticipated d/c Destination: Home with spouse and [facility] GALO COLVIN MD Dec 09, 2017 15:13
[2017-12-09 15:22] VITALS: BP 91/58
[2017-12-09] MEDS: ENOXAPARIN 40 MG/0.4 ML (LOVENOX) SYR SC SCH (16:47)
[2017-12-09] MEDS ORDERED: LORATADINE (CLARITIN) 10 MG TAB PO PRN (17:00)
[2017-12-09 17:06] VITALS: BP 96/56
[2017-12-09 17:07] VITALS: BP 91/51
[2017-12-09] MEDS: BEVESPI INHALER PO SCH (19:52)
[2017-12-09] MEDS: SIMvastatin 40 MG (ZOCOR) TAB PO SCH (20:28)
[2017-12-10] MEDS: HYDROcodone/APAP 5 MG/325 MG (LORTAB) TAB PO PRN ×5 (00:05→21:10)
[2017-12-10 05:15] VITALS: BP 113/68
[2017-12-10] MEDS: PANTOPRAZOLE 40 MG (PROTONIX) TAB PO SCH (06:14)
[2017-12-10] MEDS: POLYETHYLENE GLYCOL 17 GM (MIRALAX) PACK PO SCH ×2 (07:34→20:17)
[2017-12-10] MEDS: TRIAMTERENE/HCTZ 75-50 (MAXZIDE,DYAZIDE) TABLET PO SCH (07:49)
[2017-12-10] MEDS: meTOprolol SUCCINATE 100 MG (TOPROL XL) TAB PO SCH (07:49)
[2017-12-10] MEDS: DOCUSATE SODIUM 100 MG (COLACE) CAP PO SCH ×2 (07:49→20:16)
[2017-12-10] MEDS: KCL 10 MEQ TAB (MICRO K) PO SCH ×2 (07:49→20:16)
[2017-12-10] MEDS: lisINopril 20 MG (PRINIVIL) TABLET PO SCH (07:49)
[2017-12-10] MEDS: RT-BUDESONIDE NEBS 0.5 MG/2ML (PULMICORT) AMP INH SCH ×2 (07:56→18:38)
[2017-12-10] MEDS: RT-ALBUTEROL SULF 2.5 MG/3 ML PRE-MIX VIAL IH SCH ×4 (07:56→18:37)
[2017-12-10] MEDS: BEVESPI INHALER PO SCH ×2 (08:01→18:39)
--- NOTE | 2017-12-10 08:24 | PM & R (SOAP) Progress Note ---
Subjective This was a face to face visit with the patient. Date Seen by Provider: Dec 10, 2017 Time Seen by Provider: 07:45 Subjective/Events-last exam Patient was seen in her room this AM Patient Min to mod assist for transfers Patients asks re how long Spinal brace needs to be worn Will check with [facility] Objective Physician Exam Last Set of Vital Signs Vital Signs Date Time Temp Pulse Resp B/P (MAP) Pulse Ox O2 Delivery O2 Flow Rate FiO2 12/10/17 08:13 Nasal Cannula 4.00 12/10/17 07:57 92 12/10/17 05:15 97.2 76 20 113/68 (83) Capillary Refill : I&O Intake and Output 12/10/17 00:00 Intake Total 1300 ml Balance 1300 ml Intake Oral 1300 ml # Voids 8 General: Alert, Oriented X3, Cooperative, No Acute Distress HEENT: Atraumatic, PERRLA, EOMI, Mucous Memb Moist/[place] Neck: Supple, No JVD Lungs: Clear to Auscultation Heart: Regular Rate Abdomen: Normal Bowel Sounds, Soft, No Tenderness Extremities: No Edema Skin: Other (Incision healing well) Neuro: Other (Proximal weakness Both lower limbs hip flex 3+/5 Knee 4/5 Dorsiflex 5/5) Psych/Mental Status: Mental Status NL Results Lab Data Laboratory Tests 12/09/17 05:15: White Blood Count 7.9, Red Blood Count 2.98L, Hemoglobin 9.3L, Hematocrit 27L, Mean Corpuscular Volume 89, Mean Corpuscular Hemoglobin 31, Mean Corpuscular Hemoglobin Concent 35, Red Cell Distribution Width 13.6, Platelet Count 198, Mean Platelet Volume 10.2, Neutrophils (%) (Auto) 60, Lymphocytes (%) (Auto) 21 , Monocytes (%) (Auto) 18H, Eosinophils (%) (Auto) 1, Basophils (%) (Auto) 0, Neutrophils # (Auto) 4.8, Lymphocytes # (Auto) 1.7, Monocytes # (Auto) 1.4H, Eosinophils # (Auto) 0.1, Basophils # (Auto) 0.0, Sodium Level 131L, Potassium Level 3.0L, Chloride Level 92L, Carbon Dioxide Level 25, Anion Gap 14, Blood Urea Nitrogen 10, Creatinine 0.60, Estimat Glomerular Filtration Rate > 60, BUN/ Creatinine Ratio 17, Glucose Level 103, Calcium Level 9.2, Corrected Calcium 9.7 , Total Bilirubin 0.4, Aspartate Amino Transf (AST/SGOT) 46H, Alanine Aminotransferase (ALT/SGPT) 23, Alkaline Phosphatase 56, Total Protein 6.0L, Albumin 3.4 Assessment/Plan Assessment and Plan Lumbar spinal stenosis with radiculopathy s/p redo surgery COPD Postop constipation treated Postop anemia HTN controlled with med 02 dependence chronic HLP Gerd on med DVT Prophylaxis Lovenox Hyponatremia Plan Continue PT/OT F/U re duration of need for spinal orthosis Team Conference next week Co-Morbidities that are continuing to impact the rehab process: (include details ) GALO COLVIN MD Dec 10, 2017 08:24
--- NOTE | 2017-12-10 09:35 | Physical Therapy Daily Note ---
PT Daily Note-Current Subjective Patient in bed pre tx, agrees to PT, has pain of 7-8/10 in back. Nurse notified and she got pain meds. Appearance Patient BTB post tx with nurse call, phone, tray, all needs met. Mental Status Patient Orientation: Normal For Age Attachments: Oxygen 4L of O2 nasal canula Transfers Functional [place] Measure 0=Not Assessed/NA 4=Minimal Assistance 1=Total Assistance 5=Supervision or Setup 2=Maximal Assistance 6=Modified [place] 3=Moderate Assistance 7=Complete IndependenceIRFPAI Quality Coding Scale 6 Independent with activity with or without an assistive device 5 Patient requires set up or clean up by helper. Patient completes activity by themselves 4 Supervision or touching assist (CGA). [place] provide cues , steadying assist 3 The helper provides less than half the effort to complete the activity 2 The helper provides more than half the effort to complete the activity 1 Dependent. The helper does all the effort to complete an activity 7 Patient refused to complete or attempt activity 9 The patient did not perform the activity before the current illness or injury 88 Not attempted due to Medical conditions or safety concerns Transfers (B, C, W/C) (FIM): 4 Scootin Rollin Supine to/from Sit: 5 Sit to/from Stand: 5 Bed to/from Chair: 5 Weight Bearing Right Lower Extremity: Right Full Weight Bearing Left Lower Extremity: Left Full Weight Bearing Gait Training Gait (FIM): 4 Distance: 150' Gait Level of Assist: 4 Gait Persons Needed: 1 Gait Assistive Device: FWW CGA, patient had a couple of unsteady moments at the beginning of ambulation but no LOB. Patient ambulates slowly and gets SOB. During ambulation patient states she needs to use the restroom, she is able to get her pants down without assist. Treatments bed mobility, transfers, ambulation, patient was toileted once Assessment Current Status: Fair Progress improving endurance PT Short Term Goals Short Term Goals Time Frame: Dec 14, 2017 Transfers (B,C,W/C) (FIM): 4 Gait (FIM): 2 Gait Distance Comment: 50' Gait Level of Assist: 5 Gait Assistive Device: FWW PT Manager Of Customer Billing Goals Penitentiary Goals PT Manager Of Customer Billing Goals Time Frame: Dec 28, 2017 Transfers (B,C,W/C) (FIM): 5 Sit to Lying (QC): 4 Lying-Sitting on Side/Bed(QC): 4 Sit to Stand (QC): 4 Rollin Roll Left to Right (QC): 4 Chair/Emn-ow-Mwhfl Xfer(QC): 4 Car Transfer (QC): 4 Gait (FIM): 5 Distance: 150' Walk 10 feet (QC): 4 Walk 10ft-Uneven Surface(QC): 4 Walk 50ft with 2 Turns (QC): 4 Walk 150 ft (QC): 4 Gait Level of Assist: 5 Gait Assistive Device: FWW Stairs (FIM): 2 # of Steps: 4 1 Step (curb) (QC): 4 4 Steps (QC): 4 Stairs Level Of Assist: 4 PT Plan Problem List Problem List: Activity Tolerance, Functional Strength, Safety, Balance, Gait, Transfer, Bed Mobility, ROM Treatment/Plan Treatment Plan: Continue Plan of Care Treatment Plan: Bed Mobility, Concurrent Therapy, Education, Functional Activity French, Functional Strength, Group Therapy, Gait, Safety, Therapeutic Exercise, Transfers Treatment Duration: Dec 28, 2017 Frequency: At least 5 of 7 days/Wk (IRF) Estimated Hrs Per Day: 1.5 hours per day Patient and/or Family Agrees t: Yes Safety Risks/Education Patient Education: Gait Training, Transfer Techniques, Reviewed Precautions, Correct Positioning, Reviewed Don/Doff Brace, Safety Issues Teaching Recipient: Patient Teaching Methods: Demonstration, Discussion Response to Teaching: Reinforcement Needed Time/GCodes Time In: 914 Time Out: 929 Total Billed Treatment Time: 15 Total Billed Treatment 1 visit GT 15' NAVID FRIEND PT Dec 10, 2017 09:35
--- NOTE | 2017-12-10 13:08 | Progress Note-Hospitalist ---
Subjective HPI/CC On Admission Date Seen by Provider: Dec 10, 2017 Time Seen by Provider: 12:30 Subjective/Events-last exam Patient is doing well Pain increases at times BM+ yesterday and taking colace Nebs tolerated Review of Systems Gastrointestinal: Constipation Objective Exam Vital Signs Vital Signs Date Time Temp Pulse Resp B/P (MAP) Pulse Ox O2 Delivery O2 Flow Rate FiO2 12/10/17 10:54 Nasal Cannula 4.00 12/10/17 07:57 92 12/10/17 05:15 97.2 76 20 113/68 (83) Capillary Refill : General Appearance: No Apparent Distress, WD/WN, Chronically ill Respiratory: Chest Non Tender, Lungs Clear, Normal Breath Sounds, No Accessory Muscle Use, No Respiratory Distress, Decreased Breath Sounds Cardiovascular: Regular Rate, Rhythm, No Edema, No Gallop, No JVD, No Murmur, Normal Peripheral Pulses Neurologic/Psychiatric: Alert, Oriented x3, No Motor/Sensory Deficits, Normal Mood/Affect Results/Procedures Lab Patient resulted labs reviewed. Assessment/Plan Assessment and Plan Assess & Plan/Chief Complaint Assessment: Status post extensive lumbar stenosis surgery uncomplicated Severe COPD oxygen dependent Severe debility requiring inpatient rehabilitation Status post severe constipation resolution start on softening regimen Smoker Post op anemia Hypokalemia Hyponatremia due to HCTZ Plan: Restart potassium supplement MiraLAX regimen Pain control Inpatient rehabilitation therapy protocol DC HCTZ Continue potassium Diagnosis/Problems Diagnosis/Problems (1) Lumbar spinal stenosis Status: Chronic (2) Oxygen dependent Status: Chronic (3) Hypertension Status: Chronic (4) GERD (gastroesophageal reflux disease) Status: Chronic (5) Hyperlipidemia Status: Chronic (6) COPD (chronic obstructive pulmonary disease) Status: Chronic (7) Smoker Status: Chronic (8) Anemia Status: Acute Qualifiers: Anemia type: unspecified type Qualified Codes: D64.9 - Anemia, unspecified (9) Hypokalemia Status: Acute (10) Hyponatremia Status: Acute Clinical Quality Measures DVT/VTE Risk/Contraindication: Risk Factor Score Per Nursin RFS Level Per Nursing on Admit: 4+=Very High MAGDALENE ANDRES DO Dec 10, 2017 13:08
[2017-12-10] MEDS: ENOXAPARIN 40 MG/0.4 ML (LOVENOX) SYR SC SCH (16:27)
[2017-12-10 18:45] VITALS: BP 94/58
[2017-12-10] MEDS: SIMvastatin 40 MG (ZOCOR) TAB PO SCH (20:17)
[2017-12-11 05:06] VITALS: BP 127/62
[2017-12-11] MEDS: HYDROcodone/APAP 5 MG/325 MG (LORTAB) TAB PO PRN ×4 (05:41→20:14)
[2017-12-11] MEDS: PANTOPRAZOLE 40 MG (PROTONIX) TAB PO SCH (05:41)
[2017-12-11] MEDS: RT-BUDESONIDE NEBS 0.5 MG/2ML (PULMICORT) AMP INH SCH ×2 (06:57→19:12)
[2017-12-11] MEDS: RT-ALBUTEROL SULF 2.5 MG/3 ML PRE-MIX VIAL IH SCH ×4 (07:00→19:12)
[2017-12-11] MEDS: BEVESPI INHALER PO SCH ×2 (07:01→19:17)
[2017-12-11] MEDS: POLYETHYLENE GLYCOL 17 GM (MIRALAX) PACK PO SCH ×2 (09:16→20:17)
[2017-12-11] MEDS: lisINopril 20 MG (PRINIVIL) TABLET PO SCH (09:40)
[2017-12-11] MEDS: KCL 10 MEQ TAB (MICRO K) PO SCH ×2 (09:40→20:12)
[2017-12-11] MEDS: DOCUSATE SODIUM 100 MG (COLACE) CAP PO SCH ×2 (09:40→20:12)
[2017-12-11] MEDS: meTOprolol SUCCINATE 100 MG (TOPROL XL) TAB PO SCH (09:40)
[2017-12-11] MEDS: ENOXAPARIN 40 MG/0.4 ML (LOVENOX) SYR SC SCH (14:46)
[2017-12-11 17:07] VITALS: BP 99/59
[2017-12-11] MEDS: SIMvastatin 40 MG (ZOCOR) TAB PO SCH (20:13)
[2017-12-12] MEDS: HYDROcodone/APAP 5 MG/325 MG (LORTAB) TAB PO PRN ×3 (04:47→20:56)
[2017-12-12] MEDS: PANTOPRAZOLE 40 MG (PROTONIX) TAB PO SCH (04:47)
[2017-12-12 05:30] VITALS: BP 137/64
[2017-12-12] MEDS: RT-ALBUTEROL SULF 2.5 MG/3 ML PRE-MIX VIAL IH SCH ×4 (06:59→18:51)
[2017-12-12] MEDS: RT-BUDESONIDE NEBS 0.5 MG/2ML (PULMICORT) AMP INH SCH ×2 (06:59→18:51)
[2017-12-12] MEDS: BEVESPI INHALER PO SCH ×2 (07:00→18:50)
--- NOTE | 2017-12-12 07:57 | Occupational Ther Daily Note ---
OT Current Status-Daily Note Subjective Pt lying in bed eating breakfast. Pt agrees to therapy. No c/o pain a this time. Stated she wanted to go home, but knows she isn't ready. Mental Status/Objective Patient Orientation: Person, Place, Time, Situation Functional [place] Measure 0=Not Assessed/NA 4=Minimal Assistance 1=Total Assistance 5=Supervision or Setup 2=Maximal Assistance 6=Modified [place] 3=Moderate Assistance 7=Complete [place] Attachments: Oxygen, Other-See Comments (Back brace) ADL-Treatment Declined shower. Pt c/o fatigue and back brace. Stating that she needs to get a brace that fits, COOLEY explained to pt that the brace is a large and is able to be adjusted. Pt stated that it always hurts her incision, COOLEY explained that this would happen with any brace since it will need to be snug for support. Pt then c/o not seeing doctor so she doesn't know when she is leaving , COOLEY explained to pt that there is a meeting on Wednesdays for the team to discuss each pt's progress and discharge planning. After therapy, pt lying in bed with call light/phone in reach. All needs met in room. Functional [place] Measure 0=Not Assessed/NA 4=Minimal Assistance 1=Total Assistance 5=Supervision or Setup 2=Maximal Assistance 6=Modified [place] 3=Moderate Assistance 7=Complete IndependenceIRFPAI Quality Coding Scale 6 Independent with activity with or without an assistive device 5 Patient requires set up or clean up by helper. Patient completes activity by themselves 4 Supervision or touching assist (CGA). [place] provide cues , steadying assist 3 The helper provides less than half the effort to complete the activity 2 The helper provides more than half the effort to complete the activity 1 Dependent. The helper does all the effort to complete an activity 7 Patient refused to complete or attempt activity 9 The patient did not perform the activity before the current illness or injury 88 Not attempted due to Medical conditions or safety concerns Eating (FIM): 6 (Partial. Pt able to open packages/containers then uses regular utensils to feed self.) Eating (QC): 6 Grooming (FIM): 6 (Sitting at w/c level, pt able to complete by self.) Oral Hygiene (QC): 6 Upper Body (FIM): 5 (Pt declined donning everyday clothing. Pt able to don/ doff hospital gown with neck tied, able to pulley worker head and thread arms into sleeves.) Lower Body Dressing (FIM): 4 (Using AE, pt able to don/doff briefs. CGA in standing when pt hikes over hips.) Lower Body Dressing (QC): 4 Toileting (FIM): 4 (CGA in standing when manipulating clothing. Completes hygiene sitting on toilet.) Toileting Hygiene (QC): 4 Transfers (B, C, W/C) (FIM): 4 (Supine to sitting EOB and back with SBA using HOB elevated and bed rails. CGA with SPT transfers.) Toilet/Commode Transfer (FIM): 4 (Using grabbars and FWW, pt able to complete with CGA.) Toilet Transfer (QC): 4 OT Short Term Goals Short Term Goals Transfers (B,C,W/C) (FIM): 4 1=Demonstrate adherence to instructed precautions during ADL tasks. 2=Patient will verbalize/demonstrate understanding of assistive devices/ modifications for ADL. 3=Patient will improve strength/tolerance for activity to enable patient to perform ADL's. OT Shelter Goals Safety And Security Manager Goals Time Frame: Dec 28, 2017 Eating (FIM): 6 Eating (QC): 6 Groomin Oral Hygiene (QC): 6 Bathing(FIM): 5 Shower/Bathe Self (QC): 5 Upper Body Dressing(FIM): 6 Upper Body Dressing (QC): 6 Lower Body Dressing(FIM): 5 Lower Body Dressing (QC): 5 On/Off Footwear (QC): 5 Toileting(FIM): 6 Toileting Hygiene (QC): 6 Toilet/Commode Transfer(FIM): 6 Toilet/Commode Transfer (QC): 6 Shower Transfer(FIM): 5 Additional Goals: 1-Demonstrate ADL Tasks, 2-Verbalize Understanding, 3- ImproveStrength/French 1=Demonstrate adherence to instructed precautions during ADL tasks. 2=Patient will verbalize/demonstrate understanding of assistive devices/ modifications for ADL. 3=Patient will improve strength/tolerance for activity to enable patient to perform ADL's. OT Education/Plan Discharge Recommendations Plan/Recommendations: Continue POC Treatment Plan/Plan of Care Patient would benefit from OT for education, treatment and training to promote independence in ADL's, mobility, safety and/or upper extremity function for ADL' s. Plan of Care: ADL Retraining, Functional Mobility, Group Exercise/Act as Ind, UE Funct Exercise/Act Treatment Duration: Dec 28, 2017 Frequency: At least 5 of 7 days/Wk (IRF) Estimated Hrs Per Day: 1.5 hours per day Agreement: Yes Rehab Potential: Fair Time/GCodes Start Time: 06:55 Stop Time: 08:00 Total Time Billed (hr/min): 65 Billed Treatment Time 1 visit-ADL 4 (65 min) MARICEL HERBERT Dec 12, 2017 07:57
[2017-12-12] MEDS: meTOprolol SUCCINATE 100 MG (TOPROL XL) TAB PO SCH (08:25)
[2017-12-12] MEDS: KCL 10 MEQ TAB (MICRO K) PO SCH ×2 (08:25→20:56)
[2017-12-12] MEDS: DOCUSATE SODIUM 100 MG (COLACE) CAP PO SCH ×2 (08:25→20:56)
[2017-12-12] MEDS: lisINopril 20 MG (PRINIVIL) TABLET PO SCH (08:25)
[2017-12-12] MEDS: POLYETHYLENE GLYCOL 17 GM (MIRALAX) PACK PO SCH ×2 (08:25→20:55)
--- NOTE | 2017-12-12 10:02 | Physical Therapy Daily Note ---
PT Daily Note-Current Subjective Pt. states she has back pain at 5/10. Agrees to Rx. Feels she is getting stronger slowly. States she is concerned about bloody drainage from incision. Nurse is aware. Pain Numeric Pain Scale: 5-Moderate Pain Location: Medial Location Body Site: Back Pain Description: Pressure Appearance cough and audible breath sounds jesusita with exertion Mental Status Patient Orientation: Normal For Age Attachments: Other-See Comments (back brace) Transfers Functional [place] Measure 0=Not Assessed/NA 4=Minimal Assistance 1=Total Assistance 5=Supervision or Setup 2=Maximal Assistance 6=Modified [place] 3=Moderate Assistance 7=Complete IndependenceIRFPAI Quality Coding Scale 6 Independent with activity with or without an assistive device 5 Patient requires set up or clean up by helper. Patient completes activity by themselves 4 Supervision or touching assist (CGA). [place] provide cues , steadying assist 3 The helper provides less than half the effort to complete the activity 2 The helper provides more than half the effort to complete the activity 1 Dependent. The helper does all the effort to complete an activity 7 Patient refused to complete or attempt activity 9 The patient did not perform the activity before the current illness or injury 88 Not attempted due to Medical conditions or safety concerns Transfers (B, C, W/C) (FIM): 4 Scootin Rollin Supine to/from Sit: 5 Sit to/from Stand: 4 Weight Bearing Right Lower Extremity: Right Full Weight Bearing Left Lower Extremity: Left Full Weight Bearing Gait Training Does the Patient Walk?: Yes Gait (FIM): 4 Distance (FIM): 3=150 ft (x2) Gait Level of Assist: 4 Gait Persons Needed: 1 Gait Assistive Device: FWW slow, needs instruction for broader PHANI, some crossovers noted Exercises Supine Ex: Ankle pumps, Quad Set, Rolling, Glut sets, Heel Slides, Short Arc Quads, Scooting, Hip abd/add Supine Reps: 15 NuStep Minutes: 10 NuStep Workload: 1 Treatments toileted and voiced that she is having some trouble emptying her bladder, nursing notified Assessment Current Status: Good Progress PT Short Term Goals Short Term Goals Time Frame: Dec 14, 2017 Transfers (B,C,W/C) (FIM): 4 Gait (FIM): 2 Gait Distance Comment: 50' Gait Level of Assist: 5 Gait Assistive Device: FWW PT Long-Term Goals Newspaper Library Manager Goals PT Newspaper Library Manager Goals Time Frame: Dec 28, 2017 Transfers (B,C,W/C) (FIM): 5 Sit to Lying (QC): 4 Lying-Sitting on Side/Bed(QC): 4 Sit to Stand (QC): 4 Rollin Roll Left to Right (QC): 4 Chair/Ykw-wz-Hklrf Xfer(QC): 4 Car Transfer (QC): 4 Gait (FIM): 5 Distance: 150' Walk 10 feet (QC): 4 Walk 10ft-Uneven Surface(QC): 4 Walk 50ft with 2 Turns (QC): 4 Walk 150 ft (QC): 4 Gait Level of Assist: 5 Gait Assistive Device: FWW Stairs (FIM): 2 # of Steps: 4 1 Step (curb) (QC): 4 4 Steps (QC): 4 Stairs Level Of Assist: 4 PT Plan Treatment/Plan Treatment Plan: Continue Plan of Care Treatment Plan: Bed Mobility, Concurrent Therapy, Education, Functional Activity French, Functional Strength, Group Therapy, Gait, Safety, Therapeutic Exercise, Transfers Treatment Duration: Dec 28, 2017 Frequency: At least 5 of 7 days/Wk (IRF) Estimated Hrs Per Day: 1.5 hours per day Patient and/or Family Agrees t: Yes Safety Risks/Education Patient Education: Gait Training, Transfer Techniques, Correct Positioning, Disease Process Teaching Recipient: Patient Teaching Methods: Demonstration, Discussion Response to Teaching: Verbalize Understanding, Return Demonstration, Reinforcement Needed Time/GCodes Time In: 900 Time Out: 1000 Total Billed Treatment Time: 60 Total Billed Treatment 1,EX20m,FA25m,GT15m G Codes Necessary: SOWMYA Kam PRODUCTION EXPEDITER Dec 12, 2017 10:02
--- NOTE | 2017-12-12 11:51 | Occupational Ther Daily Note ---
OT Current Status-Daily Note Subjective Pt sleeping in bed, woke easily to name. Pt agrees to therapy. C/o fatigue. Mental Status/Objective Patient Orientation: Person, Place, Time, Situation Functional [place] Measure 0=Not Assessed/NA 4=Minimal Assistance 1=Total Assistance 5=Supervision or Setup 2=Maximal Assistance 6=Modified [place] 3=Moderate Assistance 7=Complete [place] Attachments: Oxygen ADL-Treatment Functional [place] Measure 0=Not Assessed/NA 4=Minimal Assistance 1=Total Assistance 5=Supervision or Setup 2=Maximal Assistance 6=Modified [place] 3=Moderate Assistance 7=Complete IndependenceIRFPAI Quality Coding Scale 6 Independent with activity with or without an assistive device 5 Patient requires set up or clean up by helper. Patient completes activity by themselves 4 Supervision or touching assist (CGA). [place] provide cues , steadying assist 3 The helper provides less than half the effort to complete the activity 2 The helper provides more than half the effort to complete the activity 1 Dependent. The helper does all the effort to complete an activity 7 Patient refused to complete or attempt activity 9 The patient did not perform the activity before the current illness or injury 88 Not attempted due to Medical conditions or safety concerns Other Treatment Pt completed UE activities using 1# wt attached to wrists to increase strength in UE, pinch and key ringer. Fine motor tasks to increased dexterity for daily functional tasks. After therapy, pt lying in bed with call light/phone in reach. All needs met in room. OT Short Term Goals Short Term Goals Transfers (B,C,W/C) (FIM): 4 1=Demonstrate adherence to instructed precautions during ADL tasks. 2=Patient will verbalize/demonstrate understanding of assistive devices/ modifications for ADL. 3=Patient will improve strength/tolerance for activity to enable patient to perform ADL's. OT Soap Chipper Goals Chcf Goals Time Frame: Dec 28, 2017 Eating (FIM): 6 Eating (QC): 6 Groomin Oral Hygiene (QC): 6 Bathing(FIM): 5 Shower/Bathe Self (QC): 5 Upper Body Dressing(FIM): 6 Upper Body Dressing (QC): 6 Lower Body Dressing(FIM): 5 Lower Body Dressing (QC): 5 On/Off Footwear (QC): 5 Toileting(FIM): 6 Toileting Hygiene (QC): 6 Toilet/Commode Transfer(FIM): 6 Toilet/Commode Transfer (QC): 6 Shower Transfer(FIM): 5 Additional Goals: 1-Demonstrate ADL Tasks, 2-Verbalize Understanding, 3- ImproveStrength/French 1=Demonstrate adherence to instructed precautions during ADL tasks. 2=Patient will verbalize/demonstrate understanding of assistive devices/ modifications for ADL. 3=Patient will improve strength/tolerance for activity to enable patient to perform ADL's. OT Education/Plan Discharge Recommendations Plan/Recommendations: Continue POC Treatment Plan/Plan of Care Patient would benefit from OT for education, treatment and training to promote independence in ADL's, mobility, safety and/or upper extremity function for ADL' s. Plan of Care: ADL Retraining, Functional Mobility, Group Exercise/Act as Ind, UE Funct Exercise/Act Treatment Duration: Dec 28, 2017 Frequency: At least 5 of 7 days/Wk (IRF) Estimated Hrs Per Day: 1.5 hours per day Agreement: Yes Rehab Potential: Fair Time/GCodes Start Time: 11:15 Stop Time: 11:45 Total Time Billed (hr/min): 30 Billed Treatment Time 1 visit-EX 2 (30 min) MARICEL HERBERT Dec 12, 2017 11:51
--- NOTE | 2017-12-12 14:35 | Physical Therapy Daily Note ---
PT Daily Note-Current Subjective Pt. requests to go to bathroom while up. States she is still having back pain as well as difficulty breathing during activity Pain Numeric Pain Scale: 6 Location: Lower Location Body Site: Back Pain Description: Pressure Mental Status Patient Orientation: Person, Place, Situation Attachments: Other-See Comments (back brace) Transfers Functional [place] Measure 0=Not Assessed/NA 4=Minimal Assistance 1=Total Assistance 5=Supervision or Setup 2=Maximal Assistance 6=Modified [place] 3=Moderate Assistance 7=Complete IndependenceIRFPAI Quality Coding Scale 6 Independent with activity with or without an assistive device 5 Patient requires set up or clean up by helper. Patient completes activity by themselves 4 Supervision or touching assist (CGA). [place] provide cues , steadying assist 3 The helper provides less than half the effort to complete the activity 2 The helper provides more than half the effort to complete the activity 1 Dependent. The helper does all the effort to complete an activity 7 Patient refused to complete or attempt activity 9 The patient did not perform the activity before the current illness or injury 88 Not attempted due to Medical conditions or safety concerns sup to sit and sit to stand all SBA to CGA, pt. struggles at times Weight Bearing Right Lower Extremity: Right Full Weight Bearing Left Lower Extremity: Left Full Weight Bearing Gait Training Does the Patient Walk?: Yes Gait Assistive Device: FWW slow, needs rest breaks, flexed at hips and trunk, heavy weight bearing on FWW Exercises Seated Therapy Exercises: Ankle pumps, Sit to stand, Long arc quads Seated Reps: 10 NuStep Minutes: 8 Assessment Current Status: Good Progress continues to struggle with back pain and some SOB PT Short Term Goals Short Term Goals Time Frame: Dec 14, 2017 Transfers (B,C,W/C) (FIM): 4 Gait (FIM): 2 Gait Distance Comment: 50' Gait Level of Assist: 5 Gait Assistive Device: FWW PT Window Machine Operator Goals Senior Care Goals PT Window Machine Operator Goals Time Frame: Dec 28, 2017 Transfers (B,C,W/C) (FIM): 5 Sit to Lying (QC): 4 Lying-Sitting on Side/Bed(QC): 4 Sit to Stand (QC): 4 Rollin Roll Left to Right (QC): 4 Chair/Xaj-ll-Jeznt Xfer(QC): 4 Car Transfer (QC): 4 Gait (FIM): 5 Distance: 150' Walk 10 feet (QC): 4 Walk 10ft-Uneven Surface(QC): 4 Walk 50ft with 2 Turns (QC): 4 Walk 150 ft (QC): 4 Gait Level of Assist: 5 Gait Assistive Device: FWW Stairs (FIM): 2 # of Steps: 4 1 Step (curb) (QC): 4 4 Steps (QC): 4 Stairs Level Of Assist: 4 PT Plan Treatment/Plan Treatment Plan: Continue Plan of Care Treatment Plan: Bed Mobility, Concurrent Therapy, Education, Functional Activity French, Functional Strength, Group Therapy, Gait, Safety, Therapeutic Exercise, Transfers Treatment Duration: Dec 28, 2017 Frequency: At least 5 of 7 days/Wk (IRF) Estimated Hrs Per Day: 1.5 hours per day Patient and/or Family Agrees t: Yes Safety Risks/Education Patient Education: Gait Training, Transfer Techniques, Correct Positioning, Disease Process, Safety Issues Teaching Recipient: Patient, Primary Caregiver Teaching Methods: Discussion Response to Teaching: Verbalize Understanding, Return Demonstration, Reinforcement Needed Time/GCodes Time In: 1400 Time Out: 1430 Total Billed Treatment Time: 30 Total Billed Treatment 1,[id number] G Codes Necessary: SOWMYA Kam SCOOP FILLER Dec 12, 2017 14:35
[2017-12-12] MEDS: ENOXAPARIN 40 MG/0.4 ML (LOVENOX) SYR SC SCH (16:24)
[2017-12-12 17:59] VITALS: BP 128/74
[2017-12-12] MEDS: SIMvastatin 40 MG (ZOCOR) TAB PO SCH (20:56)
--- NOTE | 2017-12-12 21:12 | PM & R (SOAP) Progress Note ---
Subjective This was a face to face visit with the patient. Date Seen by Provider: Dec 12, 2017 Time Seen by Provider: 21:00 Subjective/Events-last exam Patient was seen in her room this evening Patient SBA to CGA for transfers Objective Physician Exam Last Set of Vital Signs Vital Signs Date Time Temp Pulse Resp B/P (MAP) Pulse Ox O2 Delivery O2 Flow Rate FiO2 12/12/17 19:03 Nasal Cannula 4.00 12/12/17 18:51 92 12/12/17 17:59 98.8 75 16 128/74 (92) Capillary Refill : I&O Intake and Output 12/11/17 23:59 Intake Total 840 ml Balance 840 ml Intake Oral 840 ml # Voids 10 # Bowel Movements 1 General: Alert, Oriented X3, Cooperative, No Acute Distress HEENT: Atraumatic, PERRLA, EOMI, Mucous Memb Moist/[place] Neck: Supple, No JVD Lungs: Clear to Auscultation Heart: Regular Rate Abdomen: Normal Bowel Sounds, Soft, No Tenderness Extremities: No Edema Skin: Other (Incision healing well) Neuro: Other (Proximal weakness Both lower limbs hip flex 3+/5 Knee 4/5 Dorsiflex 5/5) Psych/Mental Status: Mental Status NL Assessment/Plan Assessment and Plan Lumbar spinal stenosis and radiculopathy s/p redo surgery COPD Postop constipation Postop anemia HTN 02 dependence chronic HLP Gerd on med DVT Prophylaxis on Lovenox subcut Hyponatremia Plan Continue PT/OT Team Conference 12-14-17 Co-Morbidities that are continuing to impact the rehab process: (include details ) GALO COLVIN MD Dec 12, 2017 21:12
[2017-12-13 06:16] VITALS: BP 137/57
[2017-12-13] MEDS: RT-ALBUTEROL SULF 2.5 MG/3 ML PRE-MIX VIAL IH SCH ×4 (06:46→19:51)
[2017-12-13] MEDS: BEVESPI INHALER PO SCH ×2 (06:48→19:53)
[2017-12-13] MEDS: RT-BUDESONIDE NEBS 0.5 MG/2ML (PULMICORT) AMP INH SCH (06:48)
[2017-12-13] MEDS: PANTOPRAZOLE 40 MG (PROTONIX) TAB PO SCH (06:54)
[2017-12-13] MEDS: HYDROcodone/APAP 5 MG/325 MG (LORTAB) TAB PO PRN ×3 (07:05→20:50)
--- NOTE | 2017-12-13 07:43 | Occupational Ther Daily Note ---
OT Current Status-Daily Note Subjective Pt alert, lying in bed. Pt c/o back pain, reported to nrsg, nrsg administered pain meds. Pt agrees to therapy. Mental Status/Objective Patient Orientation: Person, Place, Time, Situation Functional [place] Measure 0=Not Assessed/NA 4=Minimal Assistance 1=Total Assistance 5=Supervision or Setup 2=Maximal Assistance 6=Modified [place] 3=Moderate Assistance 7=Complete [place] Attachments: Oxygen ADL-Treatment Agrees to shower. Declines donning regular clothing stating that it lays on incision and increases pain. Supine to sitting mod I using HOB elevated and bed rails. Transfer from EOB to w/c and back with close SBA. Close SBA with transfer to toilet and back using w/c and grabbars. Pt able to manipulate clothing and hygiene with SBA toileting. Close SBA for transfer to shower using w/c, grabbar and shower bench. Pt complete bathing with SBA using shower bench, hand held shower, long handle sponge and grabbars. Using AE pt able to complete lower body dressing with CGA in standing to hike pants over hips. Donned/doffed hospital gown with neck tied to tub puller head, refuses to use regular shirt due to pain it causes on incision. Grooming sitting at sink, mod I. Pt has partial, but does not use while eating. Opens packages/containers by self and uses regular utensils to eat with. After therapy, pt lying in bed with call light/phone in reach. All needs met in room. Functional [place] Measure 0=Not Assessed/NA 4=Minimal Assistance 1=Total Assistance 5=Supervision or Setup 2=Maximal Assistance 6=Modified [place] 3=Moderate Assistance 7=Complete IndependenceIRFPAI Quality Coding Scale 6 Independent with activity with or without an assistive device 5 Patient requires set up or clean up by helper. Patient completes activity by themselves 4 Supervision or touching assist (CGA). [place] provide cues , steadying assist 3 The helper provides less than half the effort to complete the activity 2 The helper provides more than half the effort to complete the activity 1 Dependent. The helper does all the effort to complete an activity 7 Patient refused to complete or attempt activity 9 The patient did not perform the activity before the current illness or injury 88 Not attempted due to Medical conditions or safety concerns Eating (FIM): 7 Eating (QC): 6 Grooming (FIM): 6 Oral Hygiene (QC): 6 Bathing (FIM): 5 Bathing Location: L Arm, R Arm, L Upper Leg, R Upper Leg, L Lower Leg ( including foot), R Lower Leg (including foot), Chest, Abdomen, Buttocks, Perineal Area Shower/Bathe Self (QC): 4 Upper Body (FIM): 5 Upper Body Dressing (QC): 5 Lower Body Dressing (FIM): 4 Lower Body Dressing (QC): 3 On/Off Footwear (QC): 4 Toileting (FIM): 5 Toileting Hygiene (QC): 4 Transfers (B, C, W/C) (FIM): 5 Toilet/Commode Transfer (FIM): 5 Toilet Transfer (QC): 4 Shower Transfer(FIM): 5 OT Short Term Goals Short Term Goals Transfers (B,C,W/C) (FIM): 4 1=Demonstrate adherence to instructed precautions during ADL tasks. 2=Patient will verbalize/demonstrate understanding of assistive devices/ modifications for ADL. 3=Patient will improve strength/tolerance for activity to enable patient to perform ADL's. OT Retirement Goals Retirement Goals Time Frame: Dec 28, 2017 Eating (FIM): 6 Eating (QC): 6 Groomin Oral Hygiene (QC): 6 Bathing(FIM): 5 Shower/Bathe Self (QC): 5 Upper Body Dressing(FIM): 6 Upper Body Dressing (QC): 6 Lower Body Dressing(FIM): 5 Lower Body Dressing (QC): 5 On/Off Footwear (QC): 5 Toileting(FIM): 6 Toileting Hygiene (QC): 6 Toilet/Commode Transfer(FIM): 6 Toilet/Commode Transfer (QC): 6 Shower Transfer(FIM): 5 Additional Goals: 1-Demonstrate ADL Tasks, 2-Verbalize Understanding, 3- ImproveStrength/French 1=Demonstrate adherence to instructed precautions during ADL tasks. 2=Patient will verbalize/demonstrate understanding of assistive devices/ modifications for ADL. 3=Patient will improve strength/tolerance for activity to enable patient to perform ADL's. OT Education/Plan Discharge Recommendations Plan/Recommendations: Continue POC Treatment Plan/Plan of Care Patient would benefit from OT for education, treatment and training to promote independence in ADL's, mobility, safety and/or upper extremity function for ADL' s. Plan of Care: ADL Retraining, Functional Mobility, Group Exercise/Act as Ind, UE Funct Exercise/Act Treatment Duration: Dec 28, 2017 Frequency: At least 5 of 7 days/Wk (IRF) Estimated Hrs Per Day: 1.5 hours per day Agreement: Yes Rehab Potential: Fair Time/GCodes Start Time: 07:00 Stop Time: 08:00 Total Time Billed (hr/min): 60 Billed Treatment Time 1 visit-ADL 4 (60 min) MARICEL HERBERT Dec 13, 2017 07:43
[2017-12-13] MEDS: DOCUSATE SODIUM 100 MG (COLACE) CAP PO SCH ×2 (08:02→20:54)
[2017-12-13] MEDS: meTOprolol SUCCINATE 100 MG (TOPROL XL) TAB PO SCH (08:02)
[2017-12-13] MEDS: lisINopril 20 MG (PRINIVIL) TABLET PO SCH (08:02)
[2017-12-13] MEDS: KCL 10 MEQ TAB (MICRO K) PO SCH ×2 (08:02→20:50)
[2017-12-13] MEDS: POLYETHYLENE GLYCOL 17 GM (MIRALAX) PACK PO SCH ×2 (08:03→20:53)
--- NOTE | 2017-12-13 11:02 | Physical Therapy Daily Note ---
PT Daily Note-Current Subjective Pt laying Supine in bed upon arrival. Pt rates pain at 6/10 in back. Pt still agrees to PT and had already been given pain med. Pain Numeric Pain Scale: 6 Location: Medial, Lower Location Body Site: Back Pain Description: Ache Mental Status Patient Orientation: Person, Place Attachments: Oxygen Transfers Functional [place] Measure 0=Not Assessed/NA 4=Minimal Assistance 1=Total Assistance 5=Supervision or Setup 2=Maximal Assistance 6=Modified [place] 3=Moderate Assistance 7=Complete IndependenceIRFPAI Quality Coding Scale 6 Independent with activity with or without an assistive device 5 Patient requires set up or clean up by helper. Patient completes activity by themselves 4 Supervision or touching assist (CGA). [place] provide cues , steadying assist 3 The helper provides less than half the effort to complete the activity 2 The helper provides more than half the effort to complete the activity 1 Dependent. The helper does all the effort to complete an activity 7 Patient refused to complete or attempt activity 9 The patient did not perform the activity before the current illness or injury 88 Not attempted due to Medical conditions or safety concerns Scootin Supine to/from Sit: 4 Sit to/from Stand: 4 Sit to Lying (QC): 4 Sit to Stand (QC): 4 Pt uses bed rails to pull self up. Pt needs VC at times for sequencing. Weight Bearing Right Lower Extremity: Right Full Weight Bearing Left Lower Extremity: Left Full Weight Bearing Gait Training Does the Patient Walk?: Yes Distance (FIM): 1=up to 49 ft Distance: 25' Walk 10 feet (QC): 5 Gait Level of Assist: 5 Gait Persons Needed: 1 Gait Assistive Device: FWW Pt walks with slow, stiff [place]. Exercises Supine Ex: Ankle pumps, Quad Set, Glut sets, Heel Slides, Straight leg raise, Hip abd/add Supine Reps: 15 (2 sets with rest break) Seated Therapy Exercises: Sit to stand Treatments Pt completes Supine Ex in bed with rest breaks. Pt transfers from Supine to EOB to Standing using bed rails and FWW. Pt ambulates to restroom using FWW at SBA. Pt returns to bed at end of tx with all needs met. Assessment Current Status: Fair Progress Pt fatigues easily but has gained some strength since last tx LOGISTICS TEAM LEAD worked with pt. PT Short Term Goals Short Term Goals Time Frame: Dec 14, 2017 Transfers (B,C,W/C) (FIM): 4 Gait (FIM): 2 Gait Distance Comment: 50' Gait Level of Assist: 5 Gait Assistive Device: FWW PT Detention Goals Office Executive Goals PT Office Executive Goals Time Frame: Dec 28, 2017 Transfers (B,C,W/C) (FIM): 5 Sit to Lying (QC): 4 Lying-Sitting on Side/Bed(QC): 4 Sit to Stand (QC): 4 Rollin Roll Left to Right (QC): 4 Chair/Age-ob-Bvjpb Xfer(QC): 4 Car Transfer (QC): 4 Gait (FIM): 5 Distance: 150' Walk 10 feet (QC): 4 Walk 10ft-Uneven Surface(QC): 4 Walk 50ft with 2 Turns (QC): 4 Walk 150 ft (QC): 4 Gait Level of Assist: 5 Gait Assistive Device: FWW Stairs (FIM): 2 # of Steps: 4 1 Step (curb) (QC): 4 4 Steps (QC): 4 Stairs Level Of Assist: 4 PT Plan Problem List Problem List: Activity Tolerance, Functional Strength, Safety, Balance, Gait, Transfer Treatment/Plan Treatment Plan: Continue Plan of Care Treatment Plan: Bed Mobility, Concurrent Therapy, Education, Functional Activity French, Functional Strength, Group Therapy, Gait, Safety, Therapeutic Exercise, Transfers Treatment Duration: Dec 28, 2017 Frequency: At least 5 of 7 days/Wk (IRF) Estimated Hrs Per Day: 1.5 hours per day Patient and/or Family Agrees t: Yes Safety Risks/Education Patient Education: Gait Training, Transfer Techniques, Correct Positioning, Safety Issues Teaching Recipient: Patient Teaching Methods: Discussion Response to Teaching: Verbalize Understanding Time/GCodes Time In: 845 Time Out: 930 Total Billed Treatment Time: 45 Total Billed Treatment 1, EX x2 (30m) & FA (15m) G Codes Necessary: LIANNA Merrill LOGISTICS TEAM LEAD Dec 13, 2017 11:02
--- NOTE | 2017-12-13 12:39 | Occupational Ther Daily Note ---
OT Current Status-Daily Note Subjective Pt alert, lying in bed on phone. Pt agrees to therapy. Pt c/o pain at lower back, pain meds already given. Mental Status/Objective Patient Orientation: Person, Place, Time, Situation Functional [place] Measure 0=Not Assessed/NA 4=Minimal Assistance 1=Total Assistance 5=Supervision or Setup 2=Maximal Assistance 6=Modified [place] 3=Moderate Assistance 7=Complete [place] ADL-Treatment Functional [place] Measure 0=Not Assessed/NA 4=Minimal Assistance 1=Total Assistance 5=Supervision or Setup 2=Maximal Assistance 6=Modified [place] 3=Moderate Assistance 7=Complete IndependenceIRFPAI Quality Coding Scale 6 Independent with activity with or without an assistive device 5 Patient requires set up or clean up by helper. Patient completes activity by themselves 4 Supervision or touching assist (CGA). [place] provide cues , steadying assist 3 The helper provides less than half the effort to complete the activity 2 The helper provides more than half the effort to complete the activity 1 Dependent. The helper does all the effort to complete an activity 7 Patient refused to complete or attempt activity 9 The patient did not perform the activity before the current illness or injury 88 Not attempted due to Medical conditions or safety concerns Toileting (FIM): 5 (Using grabbar and FWW, pt able to complete toileting with SBA.) Toileting Hygiene (QC): 4 Toilet/Commode Transfer (FIM): 4 (CGA using FWW and grabbars.) Other Treatment Pt completed UE activities increase strength in UE, pinch and studio operator. Fine motor tasks to increased dexterity for daily functional tasks. After therapy, pt lying in bed with call light/phone in reach. All needs met in room. OT Short Term Goals Short Term Goals Transfers (B,C,W/C) (FIM): 4 1=Demonstrate adherence to instructed precautions during ADL tasks. 2=Patient will verbalize/demonstrate understanding of assistive devices/ modifications for ADL. 3=Patient will improve strength/tolerance for activity to enable patient to perform ADL's. OT Skilled Nursing Goals Skilled Nursing Goals Time Frame: Dec 28, 2017 Eating (FIM): 6 Eating (QC): 6 Groomin Oral Hygiene (QC): 6 Bathing(FIM): 5 Shower/Bathe Self (QC): 5 Upper Body Dressing(FIM): 6 Upper Body Dressing (QC): 6 Lower Body Dressing(FIM): 5 Lower Body Dressing (QC): 5 On/Off Footwear (QC): 5 Toileting(FIM): 6 Toileting Hygiene (QC): 6 Toilet/Commode Transfer(FIM): 6 Toilet/Commode Transfer (QC): 6 Shower Transfer(FIM): 5 Additional Goals: 1-Demonstrate ADL Tasks, 2-Verbalize Understanding, 3- ImproveStrength/French 1=Demonstrate adherence to instructed precautions during ADL tasks. 2=Patient will verbalize/demonstrate understanding of assistive devices/ modifications for ADL. 3=Patient will improve strength/tolerance for activity to enable patient to perform ADL's. OT Education/Plan Discharge Recommendations Plan/Recommendations: Continue POC Treatment Plan/Plan of Care Patient would benefit from OT for education, treatment and training to promote independence in ADL's, mobility, safety and/or upper extremity function for ADL' s. Plan of Care: ADL Retraining, Functional Mobility, Group Exercise/Act as Ind, UE Funct Exercise/Act Treatment Duration: Dec 28, 2017 Frequency: At least 5 of 7 days/Wk (IRF) Estimated Hrs Per Day: 1.5 hours per day Agreement: Yes Rehab Potential: Fair Time/GCodes Start Time: 10:30 Stop Time: 11:00 Total Time Billed (hr/min): 30 Billed Treatment Time 1 visit-ADL 1 (15 min) EX 1 (15 min) MARICEL HERBERT Dec 13, 2017 12:39
--- NOTE | 2017-12-13 13:45 | PM & R (SOAP) Progress Note ---
Subjective This was a face to face visit with the patient. Date Seen by Provider: Dec 13, 2017 Time Seen by Provider: 07:45 Subjective/Events-last exam Patient was seen in her room this AM Patient Min assist for transfers Objective Physician Exam Last Set of Vital Signs Vital Signs Date Time Temp Pulse Resp B/P (MAP) Pulse Ox O2 Delivery O2 Flow Rate FiO2 12/13/17 09:35 94 Nasal Cannula 4.00 12/13/17 06:16 97.1 86 22 137/57 (83) Capillary Refill : I&O Intake and Output 12/13/17 00:00 Intake Total 1030 ml Balance 1030 ml Intake Oral 1030 ml # Voids 10 General: Alert, Oriented X3, Cooperative, No Acute Distress HEENT: Atraumatic, PERRLA, EOMI, Mucous Memb Moist/[place] Neck: Supple, No JVD Lungs: Clear to Auscultation Heart: Regular Rate Abdomen: Normal Bowel Sounds, Soft, No Tenderness Extremities: No Edema Skin: Other (Incision healing well) Neuro: Other (Proximal weakness Both lower limbs hip flex 3+/5 Knee 4/5 Dorsiflex 5/5) Psych/Mental Status: Mental Status NL Assessment/Plan Assessment and Plan Lumbar spinal stenosis and radiculopathy s/p redo surgery 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
[2017-12-13] MEDS: ENOXAPARIN 40 MG/0.4 ML (LOVENOX) SYR SC SCH (15:11)
[2017-12-13 15:38] VITALS: BP 112/70
--- NOTE | 2017-12-13 16:21 | Physical Therapy Daily Note ---
PT Daily Note-Current Subjective Pt laying Supine in bed upon arrival. Pt agrees to PT. Pain Numeric Pain Scale: 3 Location: Lower Location Body Site: Back Pain Description: Ache Mental Status Patient Orientation: Person, Place, Time, Situation Attachments: Oxygen Transfers Functional [place] Measure 0=Not Assessed/NA 4=Minimal Assistance 1=Total Assistance 5=Supervision or Setup 2=Maximal Assistance 6=Modified [place] 3=Moderate Assistance 7=Complete IndependenceIRFPAI Quality Coding Scale 6 Independent with activity with or without an assistive device 5 Patient requires set up or clean up by helper. Patient completes activity by themselves 4 Supervision or touching assist (CGA). [place] provide cues , steadying assist 3 The helper provides less than half the effort to complete the activity 2 The helper provides more than half the effort to complete the activity 1 Dependent. The helper does all the effort to complete an activity 7 Patient refused to complete or attempt activity 9 The patient did not perform the activity before the current illness or injury 88 Not attempted due to Medical conditions or safety concerns Weight Bearing Right Lower Extremity: Right Full Weight Bearing Left Lower Extremity: Left Full Weight Bearing Exercises Supine Ex: Ankle pumps, Quad Set, Glut sets, Heel Slides, Straight leg raise, Hip abd/add Supine Reps: 15 (2 sets) Treatments Pt completes Supine Ex in bed with a couple rest breaks. Pt asks what possibility of discharge tomorrow might be. 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 Pt has all needs met. Assessment Current Status: Good Progress Pt is motivated to get home and has needed AD/equipment. Pt has gained strength during ARU stay although not walking distance right now, still need support at home. PT Short Term Goals Short Term Goals Time Frame: Dec 14, 2017 Transfers (B,C,W/C) (FIM): 4 Gait (FIM): 2 Gait Distance Comment: 50' Gait Level of Assist: 5 Gait Assistive Device: FWW PT Progressive Assembler And Fitter Goals Snf Goals PT Snf Goals Time Frame: Dec 28, 2017 Transfers (B,C,W/C) (FIM): 5 Sit to Lying (QC): 4 Lying-Sitting on Side/Bed(QC): 4 Sit to Stand (QC): 4 Rollin Roll Left to Right (QC): 4 Chair/Nfc-sq-Nkolw Xfer(QC): 4 Car Transfer (QC): 4 Gait (FIM): 5 Distance: 150' Walk 10 feet (QC): 4 Walk 10ft-Uneven Surface(QC): 4 Walk 50ft with 2 Turns (QC): 4 Walk 150 ft (QC): 4 Gait Level of Assist: 5 Gait Assistive Device: FWW Stairs (FIM): 2 # of Steps: 4 1 Step (curb) (QC): 4 4 Steps (QC): 4 Stairs Level Of Assist: 4 PT Plan Problem List Problem List: Activity Tolerance Treatment/Plan Treatment Plan: Continue Plan of Care Treatment Plan: Bed Mobility, Concurrent Therapy, Education, Functional Activity French, Functional Strength, Group Therapy, Gait, Safety, Therapeutic Exercise, Transfers Treatment Duration: Dec 28, 2017 Frequency: At least 5 of 7 days/Wk (IRF) Estimated Hrs Per Day: 1.5 hours per day Patient and/or Family Agrees t: Yes Safety Risks/Education Patient Education: Transfer Techniques, Correct Positioning, Safety Issues Teaching Recipient: Patient Teaching Methods: Discussion Response to Teaching: Verbalize Understanding Time/GCodes Time In: 1515 Time Out: 1600 Total Billed Treatment Time: 45 Total Billed Treatment 1, FA (15m) & EX x2 (30m) G Codes Necessary: LIANNA Merrill PTA Dec 13, 2017 16:21
[2017-12-13] MEDS: SIMvastatin 40 MG (ZOCOR) TAB PO SCH (20:53)
[2017-12-14] MEDS: HYDROcodone/APAP 5 MG/325 MG (LORTAB) TAB PO PRN ×2 (05:58→11:46)
[2017-12-14] MEDS: PANTOPRAZOLE 40 MG (PROTONIX) TAB PO SCH (05:58)
[2017-12-14 06:01] VITALS: BP 139/76
[2017-12-14] MEDS: RT-ALBUTEROL SULF 2.5 MG/3 ML PRE-MIX VIAL IH SCH ×4 (07:00→19:01)
[2017-12-14] MEDS: BEVESPI INHALER PO SCH ×2 (07:00→19:01)
--- NOTE | 2017-12-14 07:47 | Occupational Ther Daily Note ---
OT Current Status-Daily Note Subjective Pt alert, lying in bed. Pt agrees to therapy. Nrsg reported that pain meds were given prior to therapy. Mental Status/Objective Patient Orientation: Person, Place, Time, Situation Functional [place] Measure 0=Not Assessed/NA 4=Minimal Assistance 1=Total Assistance 5=Supervision or Setup 2=Maximal Assistance 6=Modified [place] 3=Moderate Assistance 7=Complete [place] Attachments: Oxygen ADL-Treatment Pt declined shower. Declines regular clothing due to pain it causes on incision site, per pt. Supervision for supine to sitting with HOB slightly elevated and bed rails. Supervision with transfer from surface to surface using FWW. SBA ambulated to bathroom using FWW. Supervision with toilet transfer and mod I for hygiene and clothing manipulation. Pt completes sponge bath after set up. Grooming sitting at sink in w/c. Educated pt on tub transfer bench, verbalized understanding. Pt able to maneuver w/c around [facility] area to increase strength and activity tolerance. Supervision for EOB to supine using bed rails. Independent for eating, pt has partial but does not use for eating. After therapy, pt lying in bed with breakfast, call light/ phone in reach. All needs met in room. Functional [place] Measure 0=Not Assessed/NA 4=Minimal Assistance 1=Total Assistance 5=Supervision or Setup 2=Maximal Assistance 6=Modified [place] 3=Moderate Assistance 7=Complete IndependenceIRFPAI Quality Coding Scale 6 Independent with activity with or without an assistive device 5 Patient requires set up or clean up by helper. Patient completes activity by themselves 4 Supervision or touching assist (CGA). [place] provide cues , steadying assist 3 The helper provides less than half the effort to complete the activity 2 The helper provides more than half the effort to complete the activity 1 Dependent. The helper does all the effort to complete an activity 7 Patient refused to complete or attempt activity 9 The patient did not perform the activity before the current illness or injury 88 Not attempted due to Medical conditions or safety concerns Eating (FIM): 7 Eating (QC): 6 Grooming (FIM): 6 Oral Hygiene (QC): 6 Toileting (FIM): 6 Toileting Hygiene (QC): 6 Transfers (B, C, W/C) (FIM): 5 Toilet/Commode Transfer (FIM): 5 Toilet Transfer (QC): 4 OT Short Term Goals Short Term Goals Transfers (B,C,W/C) (FIM): 4 1=Demonstrate adherence to instructed precautions during ADL tasks. 2=Patient will verbalize/demonstrate understanding of assistive devices/ modifications for ADL. 3=Patient will improve strength/tolerance for activity to enable patient to perform ADL's. OT Prison Goals Director Of Strategic Marketing Goals Time Frame: Dec 28, 2017 Eating (FIM): 6 Eating (QC): 6 Groomin Oral Hygiene (QC): 6 Bathing(FIM): 5 Shower/Bathe Self (QC): 5 Upper Body Dressing(FIM): 6 Upper Body Dressing (QC): 6 Lower Body Dressing(FIM): 5 Lower Body Dressing (QC): 5 On/Off Footwear (QC): 5 Toileting(FIM): 6 Toileting Hygiene (QC): 6 Toilet/Commode Transfer(FIM): 6 Toilet/Commode Transfer (QC): 6 Shower Transfer(FIM): 5 Additional Goals: 1-Demonstrate ADL Tasks, 2-Verbalize Understanding, 3- ImproveStrength/French 1=Demonstrate adherence to instructed precautions during ADL tasks. 2=Patient will verbalize/demonstrate understanding of assistive devices/ modifications for ADL. 3=Patient will improve strength/tolerance for activity to enable patient to perform ADL's. OT Education/Plan Discharge Recommendations Plan/Recommendations: Continue POC Treatment Plan/Plan of Care Patient would benefit from OT for education, treatment and training to promote independence in ADL's, mobility, safety and/or upper extremity function for ADL' s. Plan of Care: ADL Retraining, Functional Mobility, Group Exercise/Act as Ind, UE Funct Exercise/Act Treatment Duration: Dec 28, 2017 Frequency: At least 5 of 7 days/Wk (IRF) Estimated Hrs Per Day: 1.5 hours per day Agreement: Yes Rehab Potential: Fair Time/GCodes Start Time: 07:00 Stop Time: 08:00 Total Time Billed (hr/min): 60 Billed Treatment Time 1 visit-ADL 4 (60 min) MARICEL HERBERT Dec 14, 2017 07:47
--- NOTE | 2017-12-14 08:27 | PM & R (SOAP) Progress Note ---
Subjective This was a face to face visit with the patient. Date Seen by Provider: Dec 14, 2017 Time Seen by Provider: 08:00 Subjective/Events-last exam Patient was seen in her room this AM and in common area with OT Patient Min assist for transfers and CGA for gait with walker Objective Physician Exam Last Set of Vital Signs Vital Signs Date Time Temp Pulse Resp B/P (MAP) Pulse Ox O2 Delivery O2 Flow Rate FiO2 12/14/17 07:00 95 Nasal Cannula 4.00 12/14/17 06:01 98.5 72 19 139/76 (97) Capillary Refill : I&O Intake and Output 12/14/17 00:00 Intake Total 1390 ml Balance 1390 ml Intake Oral 1390 ml # Voids 10 # Bowel Movements 1 General: Alert, Oriented X3, Cooperative, No Acute Distress HEENT: Atraumatic, PERRLA, EOMI, Mucous Memb Moist/[place] Neck: Supple, No JVD Lungs: Clear to Auscultation Heart: Regular Rate Abdomen: Normal Bowel Sounds, Soft, No Tenderness Extremities: No Edema Skin: Other (Incision healing well) Neuro: Other (Proximal weakness Both lower limbs hip flex 3+/5 Knee 4/5 Dorsiflex 5/5) Psych/Mental Status: Mental Status NL Assessment/Plan Assessment and Plan Lumbar spinal stenosis and radiculopathy s/p redo surgery COPD O2 dependence chronic Postop constipation Pstop anemia HTN HLP Gerd on med DVT Prophylaxis on Lovenox subcut Hyponatremia Plan Continue Pt/Ot Team Conference later todat see report for full functional update and POC and ELOS Co-Morbidities that are continuing to impact the rehab process: (include details ) GALO COLVIN MD Dec 14, 2017 08:26
[2017-12-14] MEDS: meTOprolol SUCCINATE 100 MG (TOPROL XL) TAB PO SCH (09:15)
[2017-12-14] MEDS: DOCUSATE SODIUM 100 MG (COLACE) CAP PO SCH ×2 (09:16→21:16)
[2017-12-14] MEDS: lisINopril 20 MG (PRINIVIL) TABLET PO SCH (09:16)
[2017-12-14] MEDS: KCL 10 MEQ TAB (MICRO K) PO SCH ×2 (09:16→21:15)
[2017-12-14] MEDS: POLYETHYLENE GLYCOL 17 GM (MIRALAX) PACK PO SCH ×2 (09:17→21:16)
--- NOTE | 2017-12-14 11:10 | Physical Therapy Daily Note ---
PT Daily Note-Current Subjective Pt laying Supine in bed upon arrival. Pt agrees to PT. Pain Numeric Pain Scale: 4 Location: Incisional Location Body Site: Back Pain Description: Ache Mental Status Patient Orientation: Person, Place Attachments: Other-See Comments (Lumbar Brace) Transfers Functional [place] Measure 0=Not Assessed/NA 4=Minimal Assistance 1=Total Assistance 5=Supervision or Setup 2=Maximal Assistance 6=Modified [place] 3=Moderate Assistance 7=Complete IndependenceIRFPAI Quality Coding Scale 6 Independent with activity with or without an assistive device 5 Patient requires set up or clean up by helper. Patient completes activity by themselves 4 Supervision or touching assist (CGA). [place] provide cues , steadying assist 3 The helper provides less than half the effort to complete the activity 2 The helper provides more than half the effort to complete the activity 1 Dependent. The helper does all the effort to complete an activity 7 Patient refused to complete or attempt activity 9 The patient did not perform the activity before the current illness or injury 88 Not attempted due to Medical conditions or safety concerns Scootin Supine to/from Sit: 5 Sit to/from Stand: 5 Sit to Lying (QC): 5 Sit to Stand (QC): 5 Weight Bearing Right Lower Extremity: Right Full Weight Bearing Left Lower Extremity: Left Full Weight Bearing Gait Training Does the Patient Walk?: Yes Distance (FIM): 1=up to 49 ft Distance: 25' Walk 10 feet (QC): 5 Gait Level of Assist: 5 Gait Persons Needed: 1 Gait Assistive Device: FWW Pt reports her 4WW at home is easier to use than FWW she is using . Pt walks only short distances due to pain but pt reports only needing to ambulate short distance w/in home for day to day tasks. Exercises Supine Ex: Quad Set, Glut sets, Heel Slides, Hip abd/add Supine Reps: 15 Seated Therapy Exercises: Sit to stand Treatments Pt completes Supine Ex before transferring to EOB to try positional change since having back discomfort. Pt sits at EOB for couple of mins. Pt then transfers to standing and ambulates w/in room. Pt & ROTARY SHEAR CUTTER go over donning/ doffing Lumbar Brace. Pt reports discomfort with brace and Nurse notified. ROTARY SHEAR CUTTER & pt discuss household support, AD equipment, and what happens at ARU meeting this afternoon (pt though it was yesterday). Pt resting at end of tx Supine in bed with all needs met. Assessment Current Status: Good Progress Pt's walking is limited due to pain at this point. PT Short Term Goals Short Term Goals Time Frame: Dec 14, 2017 Transfers (B,C,W/C) (FIM): 4 Gait (FIM): 2 Gait Distance Comment: 50' Gait Level of Assist: 5 Gait Assistive Device: FWW PT Work Order Clerk Goals Work Order Clerk Goals PT Snf Goals Time Frame: Dec 28, 2017 Transfers (B,C,W/C) (FIM): 5 Sit to Lying (QC): 4 Lying-Sitting on Side/Bed(QC): 4 Sit to Stand (QC): 4 Rollin Roll Left to Right (QC): 4 Chair/Pgp-he-Lwvkf Xfer(QC): 4 Car Transfer (QC): 4 Gait (FIM): 5 Distance: 150' Walk 10 feet (QC): 4 Walk 10ft-Uneven Surface(QC): 4 Walk 50ft with 2 Turns (QC): 4 Walk 150 ft (QC): 4 Gait Level of Assist: 5 Gait Assistive Device: FWW Stairs (FIM): 2 # of Steps: 4 1 Step (curb) (QC): 4 4 Steps (QC): 4 Stairs Level Of Assist: 4 PT Plan Problem List Problem List: Activity Tolerance Treatment/Plan Treatment Plan: Continue Plan of Care Treatment Plan: Bed Mobility, Concurrent Therapy, Education, Functional Activity French, Functional Strength, Group Therapy, Gait, Safety, Therapeutic Exercise, Transfers Treatment Duration: Dec 28, 2017 Frequency: At least 5 of 7 days/Wk (IRF) Estimated Hrs Per Day: 1.5 hours per day Patient and/or Family Agrees t: Yes Safety Risks/Education Patient Education: Gait Training, Transfer Techniques, Correct Positioning, Reviewed Don/Doff Brace, Safety Issues Teaching Recipient: Patient Teaching Methods: Discussion Response to Teaching: Verbalize Understanding Time/GCodes Time In: 800 Time Out: 900 Total Billed Treatment Time: 60 Total Billed Treatment 1, EX x2 (25m), GT (15m) & FA (20m) G Codes Necessary: LIANNA Merrill ROTARY SHEAR CUTTER Dec 14, 2017 11:10
--- NOTE | 2017-12-14 11:19 | Physical Therapy Daily Note ---
PT Daily Note-Current Subjective Pt asleep upon arrival. Pt agrees to PT. RT sees pt for Breathing tx. Pain Numeric Pain Scale: 6 Location: Incisional Location Body Site: Back Pain Description: Ache Comment: Pain has increased since this morning, Nurse notified and pain med to given Mental Status Patient Orientation: Person, Place Attachments: Other-See Comments (Lumbar Brace) Transfers Functional [place] Measure 0=Not Assessed/NA 4=Minimal Assistance 1=Total Assistance 5=Supervision or Setup 2=Maximal Assistance 6=Modified [place] 3=Moderate Assistance 7=Complete IndependenceIRFPAI Quality Coding Scale 6 Independent with activity with or without an assistive device 5 Patient requires set up or clean up by helper. Patient completes activity by themselves 4 Supervision or touching assist (CGA). [place] provide cues , steadying assist 3 The helper provides less than half the effort to complete the activity 2 The helper provides more than half the effort to complete the activity 1 Dependent. The helper does all the effort to complete an activity 7 Patient refused to complete or attempt activity 9 The patient did not perform the activity before the current illness or injury 88 Not attempted due to Medical conditions or safety concerns Scootin Rollin Supine to/from Sit: 5 Sit to/from Stand: 5 Sit to Lying (QC): 5 Sit to Stand (QC): 5 Weight Bearing Right Lower Extremity: Right Full Weight Bearing Left Lower Extremity: Left Full Weight Bearing Gait Training Does the Patient Walk?: Yes Distance: 25' Walk 10 feet (QC): 5 Gait Level of Assist: 5 Gait Persons Needed: 1 Gait Assistive Device: FWW Pt has slow westley, antalgic gait pattern due to back pain. Exercises Supine Ex: Ankle pumps, Quad Set, Glut sets, Heel Slides, Hip abd/add Supine Reps: 15 Seated Therapy Exercises: Sit to stand Treatments Pt completes Supine Ex. Pt receives Breathing tx during tx. Pt transfers from bed to Standing using FWW at SBA to use restroom. Pt returns to bed to rest at end of tx. OT arrives at end of tx. Assessment Current Status: Good Progress Pt fatigues and has pain during tx. PT Short Term Goals Short Term Goals Time Frame: Dec 14, 2017 Transfers (B,C,W/C) (FIM): 4 Gait (FIM): 2 Gait Distance Comment: 50' Gait Level of Assist: 5 Gait Assistive Device: FWW PT Track Announcer Goals Track Announcer Goals PT Track Announcer Goals Time Frame: Dec 28, 2017 Transfers (B,C,W/C) (FIM): 5 Sit to Lying (QC): 4 Lying-Sitting on Side/Bed(QC): 4 Sit to Stand (QC): 4 Rollin Roll Left to Right (QC): 4 Chair/Emi-rl-Tlvnm Xfer(QC): 4 Car Transfer (QC): 4 Gait (FIM): 5 Distance: 150' Walk 10 feet (QC): 4 Walk 10ft-Uneven Surface(QC): 4 Walk 50ft with 2 Turns (QC): 4 Walk 150 ft (QC): 4 Gait Level of Assist: 5 Gait Assistive Device: FWW Stairs (FIM): 2 # of Steps: 4 1 Step (curb) (QC): 4 4 Steps (QC): 4 Stairs Level Of Assist: 4 PT Plan Problem List Problem List: Activity Tolerance, Gait Treatment/Plan Treatment Plan: Continue Plan of Care Treatment Plan: Bed Mobility, Concurrent Therapy, Education, Functional Activity French, Functional Strength, Group Therapy, Gait, Safety, Therapeutic Exercise, Transfers Treatment Duration: Dec 28, 2017 Frequency: At least 5 of 7 days/Wk (IRF) Estimated Hrs Per Day: 1.5 hours per day Patient and/or Family Agrees t: Yes Safety Risks/Education Patient Education: Gait Training, Transfer Techniques, Correct Positioning, Safety Issues Teaching Recipient: Patient Teaching Methods: Discussion Response to Teaching: Verbalize Understanding Time/GCodes Time In: 1100 Time Out: 1130 Total Billed Treatment Time: 30 Total Billed Treatment 1, GT (15m) & FA (15m) G Codes Necessary: LIANNA Merrill BRIDGE BUILDER Dec 14, 2017 11:19
--- NOTE | 2017-12-14 11:54 | Occupational Ther Daily Note ---
OT Current Status-Daily Note Subjective Pt lying in bed finishing up with PT. Took over care from PT. Pt c/o pain, rated 4/10, reported to nrsg who brought pain meds. Pt agrees to therapy. Mental Status/Objective Patient Orientation: Person, Place, Time, Situation Functional [place] Measure 0=Not Assessed/NA 4=Minimal Assistance 1=Total Assistance 5=Supervision or Setup 2=Maximal Assistance 6=Modified [place] 3=Moderate Assistance 7=Complete [place] ADL-Treatment Functional [place] Measure 0=Not Assessed/NA 4=Minimal Assistance 1=Total Assistance 5=Supervision or Setup 2=Maximal Assistance 6=Modified [place] 3=Moderate Assistance 7=Complete IndependenceIRFPAI Quality Coding Scale 6 Independent with activity with or without an assistive device 5 Patient requires set up or clean up by helper. Patient completes activity by themselves 4 Supervision or touching assist (CGA). [place] provide cues , steadying assist 3 The helper provides less than half the effort to complete the activity 2 The helper provides more than half the effort to complete the activity 1 Dependent. The helper does all the effort to complete an activity 7 Patient refused to complete or attempt activity 9 The patient did not perform the activity before the current illness or injury 88 Not attempted due to Medical conditions or safety concerns Other Treatment Pt completed UE activities increase strength in UE, pinch and production assembly supervisor. Fine motor tasks to increased dexterity for daily functional tasks. After therapy, pt lying in bed with call light/phone in reach. All needs met in room. OT Short Term Goals Short Term Goals Transfers (B,C,W/C) (FIM): 4 1=Demonstrate adherence to instructed precautions during ADL tasks. 2=Patient will verbalize/demonstrate understanding of assistive devices/ modifications for ADL. 3=Patient will improve strength/tolerance for activity to enable patient to perform ADL's. OT Half-Way Goals Debit Agent Goals Time Frame: Dec 28, 2017 Eating (FIM): 6 Eating (QC): 6 Groomin Oral Hygiene (QC): 6 Bathing(FIM): 5 Shower/Bathe Self (QC): 5 Upper Body Dressing(FIM): 6 Upper Body Dressing (QC): 6 Lower Body Dressing(FIM): 5 Lower Body Dressing (QC): 5 On/Off Footwear (QC): 5 Toileting(FIM): 6 Toileting Hygiene (QC): 6 Toilet/Commode Transfer(FIM): 6 Toilet/Commode Transfer (QC): 6 Shower Transfer(FIM): 5 Additional Goals: 1-Demonstrate ADL Tasks, 2-Verbalize Understanding, 3- ImproveStrength/French 1=Demonstrate adherence to instructed precautions during ADL tasks. 2=Patient will verbalize/demonstrate understanding of assistive devices/ modifications for ADL. 3=Patient will improve strength/tolerance for activity to enable patient to perform ADL's. OT Education/Plan Discharge Recommendations Plan/Recommendations: Continue POC Treatment Plan/Plan of Care Patient would benefit from OT for education, treatment and training to promote independence in ADL's, mobility, safety and/or upper extremity function for ADL' s. Plan of Care: ADL Retraining, Functional Mobility, Group Exercise/Act as Ind, UE Funct Exercise/Act Treatment Duration: Dec 28, 2017 Frequency: At least 5 of 7 days/Wk (IRF) Estimated Hrs Per Day: 1.5 hours per day Agreement: Yes Rehab Potential: Fair Time/GCodes Start Time: 11:30 Stop Time: 12:00 Total Time Billed (hr/min): 30 Billed Treatment Time 1 visit-EX 2 (30 min) MARICEL HERBERT Dec 14, 2017 11:54
[2017-12-14] MEDS: ENOXAPARIN 40 MG/0.4 ML (LOVENOX) SYR SC SCH (16:35)
[2017-12-14 17:50] VITALS: BP 145/73
[2017-12-14] MEDS: SIMvastatin 40 MG (ZOCOR) TAB PO SCH (21:15)
[2017-12-14] MEDS: NICOTINE 14 MG (NICODERM) PATCH TD SCH (21:59)
[2017-12-15] MEDS: RT-ALBUTEROL/IPRATROPIUM 3 ML (DUONEB) VIAL INH PRN (00:12)
[2017-12-15 05:49] VITALS: BP 144/79
[2017-12-15] MEDS: RT-ALBUTEROL SULF 2.5 MG/3 ML PRE-MIX VIAL IH SCH ×4 (06:34→19:22)
[2017-12-15] MEDS: BEVESPI INHALER PO SCH ×2 (06:35→19:22)
[2017-12-15] MEDS: PANTOPRAZOLE 40 MG (PROTONIX) TAB PO SCH (06:46)
[2017-12-15] MEDS: HYDROcodone/APAP 5 MG/325 MG (LORTAB) TAB PO PRN ×4 (07:37→22:03)
--- NOTE | 2017-12-15 07:41 | Occupational Ther Daily Note ---
OT Current Status-Daily Note Subjective Pt sleeping in bed, woke easily to name. Pt c/o pain, rated 10/10, reported to nrsg and nrsg brought pain meds. Pt agrees to therapy. Mental Status/Objective Patient Orientation: Person, Place, Time, Situation Functional [place] Measure 0=Not Assessed/NA 4=Minimal Assistance 1=Total Assistance 5=Supervision or Setup 2=Maximal Assistance 6=Modified [place] 3=Moderate Assistance 7=Complete [place] ADL-Treatment Functional [place] Measure 0=Not Assessed/NA 4=Minimal Assistance 1=Total Assistance 5=Supervision or Setup 2=Maximal Assistance 6=Modified [place] 3=Moderate Assistance 7=Complete IndependenceIRFPAI Quality Coding Scale 6 Independent with activity with or without an assistive device 5 Patient requires set up or clean up by helper. Patient completes activity by themselves 4 Supervision or touching assist (CGA). [place] provide cues , steadying assist 3 The helper provides less than half the effort to complete the activity 2 The helper provides more than half the effort to complete the activity 1 Dependent. The helper does all the effort to complete an activity 7 Patient refused to complete or attempt activity 9 The patient did not perform the activity before the current illness or injury 88 Not attempted due to Medical conditions or safety concerns Eating (FIM): 7 (Has partial, but does not use. Able to open packages/ containers and use regular utensils.) Eating (QC): 6 Grooming (FIM): 6 (At w/c level, pt completes by self.) Oral Hygiene (QC): 6 Bathing (FIM): 5 (Pt requires assist to turn water on/off. Pt able to complete all other bathing by self using long handle sponge, shower bench, hand held shower and grabbars.) Bathing Location: L Arm, R Arm, L Upper Leg, R Upper Leg, L Lower Leg ( including foot), R Lower Leg (including foot), Chest, Abdomen, Buttocks, Perineal Area Shower/Bathe Self (QC): 5 Upper Body (FIM): 5 (Declines using regular clothing due to pain when it lays on incision. Pt is able to pull hospital gown, when tied at neck, over head and thread arms.) Upper Body Dressing (QC): 5 Lower Body Dressing (FIM): 5 (Using AE, pt able to complete lower body dressing with verbal cues and SBA when hiking pants over hips.) Lower Body Dressing (QC): 4 On/Off Footwear (QC): 5 Transfers (B, C, W/C) (FIM): 5 (SBA using FWW.) Shower Transfer(FIM): 5 (SBA using FWW, grabbar and shower bench.) After therapy, pt lying in bed with call light/phone in reach. All needs met in room. OT Short Term Goals Short Term Goals Transfers (B,C,W/C) (FIM): 4 1=Demonstrate adherence to instructed precautions during ADL tasks. 2=Patient will verbalize/demonstrate understanding of assistive devices/ modifications for ADL. 3=Patient will improve strength/tolerance for activity to enable patient to perform ADL's. OT Correction Goals Correction Goals Time Frame: Dec 28, 2017 Eating (FIM): 6 Eating (QC): 6 Groomin Oral Hygiene (QC): 6 Bathing(FIM): 5 Shower/Bathe Self (QC): 5 Upper Body Dressing(FIM): 6 Upper Body Dressing (QC): 6 Lower Body Dressing(FIM): 5 Lower Body Dressing (QC): 5 On/Off Footwear (QC): 5 Toileting(FIM): 6 Toileting Hygiene (QC): 6 Toilet/Commode Transfer(FIM): 6 Toilet/Commode Transfer (QC): 6 Shower Transfer(FIM): 5 Additional Goals: 1-Demonstrate ADL Tasks, 2-Verbalize Understanding, 3- ImproveStrength/French 1=Demonstrate adherence to instructed precautions during ADL tasks. 2=Patient will verbalize/demonstrate understanding of assistive devices/ modifications for ADL. 3=Patient will improve strength/tolerance for activity to enable patient to perform ADL's. OT Education/Plan Discharge Recommendations Plan/Recommendations: Continue POC Treatment Plan/Plan of Care Patient would benefit from OT for education, treatment and training to promote independence in ADL's, mobility, safety and/or upper extremity function for ADL' s. Plan of Care: ADL Retraining, Functional Mobility, Group Exercise/Act as Ind, UE Funct Exercise/Act Treatment Duration: Dec 28, 2017 Frequency: At least 5 of 7 days/Wk (IRF) Estimated Hrs Per Day: 1.5 hours per day Agreement: Yes Rehab Potential: Fair Time/GCodes Start Time: 06:50 Stop Time: 07:50 Total Time Billed (hr/min): 60 Billed Treatment Time 1 visit-ADL 4 (60 min) MARICEL HERBERT Dec 15, 2017 07:40
[2017-12-15] MEDS: meTOprolol SUCCINATE 100 MG (TOPROL XL) TAB PO SCH (08:11)
[2017-12-15] MEDS: KCL 10 MEQ TAB (MICRO K) PO SCH ×2 (08:11→20:49)
[2017-12-15] MEDS: lisINopril 20 MG (PRINIVIL) TABLET PO SCH (08:11)
[2017-12-15] MEDS: DOCUSATE SODIUM 100 MG (COLACE) CAP PO SCH ×2 (08:50→20:49)
[2017-12-15] MEDS: POLYETHYLENE GLYCOL 17 GM (MIRALAX) PACK PO SCH ×2 (08:50→20:49)
--- NOTE | 2017-12-15 09:08 | PM & R (SOAP) Progress Note ---
Subjective This was a face to face visit with the patient. Date Seen by Provider: Dec 15, 2017 Time Seen by Provider: 08:00 Subjective/Events-last exam Patient was seen in her room this AM Patient SBA for transfers Agreeable to smoking cessation and N patch begun. Date Identified: Dec 15, 2017 Time Identified: 08:00 Medication Intervention: Nicotine patch begun for smoking cessation Objective Physician Exam Last Set of Vital Signs Vital Signs Date Time Temp Pulse Resp B/P (MAP) Pulse Ox O2 Delivery O2 Flow Rate FiO2 12/15/17 06:35 97 Nasal Cannula 4.00 12/15/17 05:49 98.1 77 18 144/79 (100) Capillary Refill : I&O Intake and Output 12/15/17 00:00 Intake Total 1060 ml Balance 1060 ml Intake Oral 1060 ml # Voids 8 General: Alert, Oriented X3, Cooperative, No Acute Distress HEENT: Atraumatic, PERRLA, EOMI, Mucous Memb Moist/[place] Neck: Supple, No JVD Lungs: Clear to Auscultation Heart: Regular Rate Abdomen: Normal Bowel Sounds, Soft, No Tenderness Extremities: No Edema Skin: Other (Incision healing well) Neuro: Other (Proximal weakness Both lower limbs hip flex 3+/5 Knee 4/5 Dorsiflex 5/5) Psych/Mental Status: Mental Status NL Assessment/Plan Assessment and Plan Lumbar spinal stenosis and radiculopathy s/p redo surgery COPD o2 dependence chronic Postop constipation treated Tobaccoism smoking cessation Postop anemia HTN HLP GERD on med DVT prophylaxis on lovenox subcut Hyponatremia Plan Continue PT/OT Team Conference held yesterday-see report for full functional update and POC Discharge set tentatively for next week Tuesday12-20-17 Co-Morbidities that are continuing to impact the rehab process: (include details ) GALO COLVIN MD Dec 15, 2017 09:08
[2017-12-15] MEDS: NICOTINE PATCH REMOVAL TP SCH (09:13)
[2017-12-15] MEDS: NICOTINE 14 MG (NICODERM) PATCH TD SCH (09:14)
--- NOTE | 2017-12-15 09:43 | Physical Therapy Daily Note ---
PT Daily Note-Current Subjective Pt sitting up in bed, asleep after breakfast upon arrival. Pt agrees to PT and reports discharge day of 12/20. Pain Numeric Pain Scale: 4 Location: Incisional Location Body Site: Back Pain Description: Ache Comment: Pt is 4/10 right now on pain med but gets up to 7/10 in morn. 1st thing Mental Status Patient Orientation: Person, Place, Situation Attachments: Other-See Comments (Lumbar Brace) Transfers Functional [place] Measure 0=Not Assessed/NA 4=Minimal Assistance 1=Total Assistance 5=Supervision or Setup 2=Maximal Assistance 6=Modified [place] 3=Moderate Assistance 7=Complete IndependenceIRFPAI Quality Coding Scale 6 Independent with activity with or without an assistive device 5 Patient requires set up or clean up by helper. Patient completes activity by themselves 4 Supervision or touching assist (CGA). [place] provide cues , steadying assist 3 The helper provides less than half the effort to complete the activity 2 The helper provides more than half the effort to complete the activity 1 Dependent. The helper does all the effort to complete an activity 7 Patient refused to complete or attempt activity 9 The patient did not perform the activity before the current illness or injury 88 Not attempted due to Medical conditions or safety concerns Scootin Rollin Roll Left to Right (QC): 6 Supine to/from Sit: 5 Sit to/from Stand: 5 Sit to Lying (QC): 6 Weight Bearing Right Lower Extremity: Right Full Weight Bearing Left Lower Extremity: Left Full Weight Bearing Gait Training Does the Patient Walk?: Yes Distance (FIM): 7=309-53 ft Distance: 55' Walk 10 feet (QC): 5 Walk 50 ft with 2 Turns(QC): 5 Walking 10ft/uneven surface-QC: 5 Gait Level of Assist: 5 Gait Persons Needed: 1 Gait Assistive Device: FWW Pt walks with antalgic gait pattern, slow [place]. Pt fatigues easily and is limited by pain in back. Exercises Supine Ex: Ankle pumps, Quad Set, Heel Slides, Straight leg raise, Hip abd/add Supine Reps: 15 Seated Therapy Exercises: Ankle pumps, Long arc quads, Hip flexion, Kicking activity Seated Reps: 15 Treatments Pt completes Supine Ex followed by transferring to EOB for Seated Balance practice. Pt completes Seated EX at EOB. Pt returns to Supine to rest back. Pt then transfers back to Sitting then Standing using FWW, DOG CATCHER discusses donning /doffing brace and assists Pt. Pt ambulates w/in room then later to restroom before returning to bed to lay Supine to rest. DOG CATCHER assists with repositioning and pt rests at end of tx with all needs met. Assessment Current Status: Good Progress Pt is encouraged to stay upright as much as possible. Pt is limited due to fatigue and pain during upright activity. PT Short Term Goals Short Term Goals Time Frame: Dec 14, 2017 Transfers (B,C,W/C) (FIM): 4 Gait (FIM): 2 Gait Distance Comment: 50' Gait Level of Assist: 5 Gait Assistive Device: FWW PT Price Checker Goals Price Checker Goals PT [facility] Goals Time Frame: Dec 28, 2017 Transfers (B,C,W/C) (FIM): 5 Sit to Lying (QC): 4 Lying-Sitting on Side/Bed(QC): 4 Sit to Stand (QC): 4 Rollin Roll Left to Right (QC): 4 Chair/Ctd-go-Ltbwc Xfer(QC): 4 Car Transfer (QC): 4 Gait (FIM): 5 Distance: 150' Walk 10 feet (QC): 4 Walk 10ft-Uneven Surface(QC): 4 Walk 50ft with 2 Turns (QC): 4 Walk 150 ft (QC): 4 Gait Level of Assist: 5 Gait Assistive Device: FWW Stairs (FIM): 2 # of Steps: 4 1 Step (curb) (QC): 4 4 Steps (QC): 4 Stairs Level Of Assist: 4 PT Plan Problem List Problem List: Activity Tolerance, Functional Strength, Safety, Gait Treatment/Plan Treatment Plan: Continue Plan of Care Treatment Plan: Bed Mobility, Concurrent Therapy, Education, Functional Activity French, Functional Strength, Group Therapy, Gait, Safety, Therapeutic Exercise, Transfers Treatment Duration: Dec 28, 2017 Frequency: At least 5 of 7 days/Wk (IRF) Estimated Hrs Per Day: 1.5 hours per day Patient and/or Family Agrees t: Yes Safety Risks/Education Patient Education: Gait Training, Transfer Techniques, Correct Positioning, Safety Issues Teaching Recipient: Patient Teaching Methods: Demonstration, Discussion Response to Teaching: Verbalize Understanding Time/GCodes Time In: 800 Time Out: 900 Total Billed Treatment Time: 60 Total Billed Treatment 1, EX x2 (30m) & FA x2 (30m) G Codes Necessary: LIANNA Merirll DOG CATCHER Dec 15, 2017 09:43
--- NOTE | 2017-12-15 14:49 | Therapy Group Daily Note ---
Therapy Daily Group Note Patient Education Topic Home Safety Exercises LE Seated Exercise, UE Exercise Other/Notes Pt ambulates to PT/OT Group using FWW. Group consisted of Introduction (Name, Where you are from & What is your favorite season?), Socialization, ARU Explanation/Description, UE/LE EX as well Home Safety. Pt actively participated with Group by completing EX and giving personal examples of Home Safety items and improvements that could be made within pt's home. Group ended with something that Inspires or Motivates you to complete Therapy and get better to discharge home. Pt returns to room at end of tx to rest with all needs met. Start Time: 13:00 Stop Time: 14:15 Total Billed Treatment 1, GRP (75m) LIANNA LOWRY PLASTIC DESIGN APPLIER Dec 15, 2017 14:49
[2017-12-15] MEDS: ENOXAPARIN 40 MG/0.4 ML (LOVENOX) SYR SC SCH (16:27)
[2017-12-15 17:28] VITALS: BP 130/71
[2017-12-15] MEDS: SIMvastatin 40 MG (ZOCOR) TAB PO SCH (20:49)
[2017-12-16 06:00] VITALS: BP 164/74
[2017-12-16] MEDS: PANTOPRAZOLE 40 MG (PROTONIX) TAB PO SCH (06:19)
[2017-12-16] MEDS: BEVESPI INHALER PO SCH ×2 (06:53→19:18)
[2017-12-16] MEDS: RT-ALBUTEROL SULF 2.5 MG/3 ML PRE-MIX VIAL IH SCH ×4 (06:53→19:18)
--- NOTE | 2017-12-16 07:00 | Occupational Ther Daily Note ---
OT Current Status-Daily Note Subjective Pt alert, lying in bed. Pt stated that she had a rough night with not sleeping then nightmares. Pt c/o back pain, 7-09/30. Nrsg notified and nrsg brought pain meds. Pt stated that she was not sure how much she could do this morning since she was in so much pain and tired from not sleeping. Mental Status/Objective Patient Orientation: Person, Place, Time, Situation Functional [place] Measure 0=Not Assessed/NA 4=Minimal Assistance 1=Total Assistance 5=Supervision or Setup 2=Maximal Assistance 6=Modified [place] 3=Moderate Assistance 7=Complete [place] Attachments: Oxygen (4L) ADL-Treatment Supine to sitting by self using HOB slightly elevated and bed rails. Dependent donning/doffing brace. SBA ambulating to bathroom due to increase pain of back using FWW. SBA using FWW and grabbars to transfer to toilet. Pt able to cleanse self and hike pants over hips using grabbars and FWW. Due to increased pain pt required min A to thread L LE into briefs. Pt continues to decline regular clothing and sitting up in chair due to pain. Mod I for eating. Pt took increased time to complete all tasks due to fatigue and pain. After therapy, pt lying in bed with call light/phone in reach. All needs met in room. Functional [place] Measure 0=Not Assessed/NA 4=Minimal Assistance 1=Total Assistance 5=Supervision or Setup 2=Maximal Assistance 6=Modified [place] 3=Moderate Assistance 7=Complete IndependenceIRFPAI Quality Coding Scale 6 Independent with activity with or without an assistive device 5 Patient requires set up or clean up by helper. Patient completes activity by themselves 4 Supervision or touching assist (CGA). [place] provide cues , steadying assist 3 The helper provides less than half the effort to complete the activity 2 The helper provides more than half the effort to complete the activity 1 Dependent. The helper does all the effort to complete an activity 7 Patient refused to complete or attempt activity 9 The patient did not perform the activity before the current illness or injury 88 Not attempted due to Medical conditions or safety concerns Eating (FIM): 7 Eating (QC): 6 Lower Body Dressing (FIM): 4 Lower Body Dressing (QC): 3 Toileting (FIM): 5 Toileting Hygiene (QC): 4 Transfers (B, C, W/C) (FIM): 5 Toilet/Commode Transfer (FIM): 5 Toilet Transfer (QC): 4 OT Short Term Goals Short Term Goals Transfers (B,C,W/C) (FIM): 4 1=Demonstrate adherence to instructed precautions during ADL tasks. 2=Patient will verbalize/demonstrate understanding of assistive devices/ modifications for ADL. 3=Patient will improve strength/tolerance for activity to enable patient to perform ADL's. OT Fdc Goals Customer Logistics Manager Goals Time Frame: Dec 28, 2017 Eating (FIM): 6 Eating (QC): 6 Groomin Oral Hygiene (QC): 6 Bathing(FIM): 5 Shower/Bathe Self (QC): 5 Upper Body Dressing(FIM): 6 Upper Body Dressing (QC): 6 Lower Body Dressing(FIM): 5 Lower Body Dressing (QC): 5 On/Off Footwear (QC): 5 Toileting(FIM): 6 Toileting Hygiene (QC): 6 Toilet/Commode Transfer(FIM): 6 Toilet/Commode Transfer (QC): 6 Shower Transfer(FIM): 5 Additional Goals: 1-Demonstrate ADL Tasks, 2-Verbalize Understanding, 3- ImproveStrength/French 1=Demonstrate adherence to instructed precautions during ADL tasks. 2=Patient will verbalize/demonstrate understanding of assistive devices/ modifications for ADL. 3=Patient will improve strength/tolerance for activity to enable patient to perform ADL's. OT Education/Plan Discharge Recommendations Plan/Recommendations: Continue POC Treatment Plan/Plan of Care Patient would benefit from OT for education, treatment and training to promote independence in ADL's, mobility, safety and/or upper extremity function for ADL' s. Plan of Care: ADL Retraining, Functional Mobility, Group Exercise/Act as Ind, UE Funct Exercise/Act Treatment Duration: Dec 28, 2017 Frequency: At least 5 of 7 days/Wk (IRF) Estimated Hrs Per Day: 1.5 hours per day Agreement: Yes Rehab Potential: Fair Time/GCodes Start Time: 07:00 Stop Time: 08:00 Total Time Billed (hr/min): 60 Billed Treatment Time 1 visit-ADL 4 (60 min) MARICEL HERBERT Dec 16, 2017 07:00
[2017-12-16] MEDS: HYDROcodone/APAP 5 MG/325 MG (LORTAB) TAB PO PRN ×3 (07:21→18:51)
[2017-12-16] MEDS: meTOprolol SUCCINATE 100 MG (TOPROL XL) TAB PO SCH (08:33)
[2017-12-16] MEDS: lisINopril 20 MG (PRINIVIL) TABLET PO SCH (08:33)
[2017-12-16] MEDS: KCL 10 MEQ TAB (MICRO K) PO SCH ×2 (08:33→20:21)
[2017-12-16] MEDS: NICOTINE 14 MG (NICODERM) PATCH TD SCH (08:35)
[2017-12-16] MEDS: DOCUSATE SODIUM 100 MG (COLACE) CAP PO SCH ×2 (08:35→20:21)
[2017-12-16] MEDS: POLYETHYLENE GLYCOL 17 GM (MIRALAX) PACK PO SCH ×2 (08:35→20:22)
[2017-12-16] MEDS: NICOTINE PATCH REMOVAL TP SCH (08:35)
--- NOTE | 2017-12-16 10:01 | Physical Therapy Daily Note ---
PT Daily Note-Current Subjective Pt. states her back pain is at 8/10 but she will try . Agrees to try to get comfortable in her recliner after Rx. Pain Numeric Pain Scale: 8 Location: Medial Location Body Site: Back Pain Description: Ache Mental Status Patient Orientation: Person, Place, Time, Situation Attachments: Oxygen (4L), Other-See Comments (back brace, ) Transfers Functional [place] Measure 0=Not Assessed/NA 4=Minimal Assistance 1=Total Assistance 5=Supervision or Setup 2=Maximal Assistance 6=Modified [place] 3=Moderate Assistance 7=Complete IndependenceIRFPAI Quality Coding Scale 6 Independent with activity with or without an assistive device 5 Patient requires set up or clean up by helper. Patient completes activity by themselves 4 Supervision or touching assist (CGA). [place] provide cues , steadying assist 3 The helper provides less than half the effort to complete the activity 2 The helper provides more than half the effort to complete the activity 1 Dependent. The helper does all the effort to complete an activity 7 Patient refused to complete or attempt activity 9 The patient did not perform the activity before the current illness or injury 88 Not attempted due to Medical conditions or safety concerns Transfers (B, C, W/C) (FIM): 4 Scootin Rollin Supine to/from Sit: 4 Sit to/from Stand: 4 Bed to/from Chair: 4 dyspneic, SPTs to bed, chair, BSC CGA to min assist, sup to sit requires HOB up Weight Bearing Right Lower Extremity: Right Full Weight Bearing Left Lower Extremity: Left Full Weight Bearing Gait Training Does the Patient Walk?: Yes Gait (FIM): 2 Distance (FIM): 6=704-52 ft (125x2,50x1) Gait Level of Assist: 4 Gait Persons Needed: 1 Gait Assistive Device: FWW pt. has 2 incidents of legs slightly giving way, pt. stating her LEs feel so weak Exercises Seated Therapy Exercises: Ankle pumps, Sit to stand, Long arc quads, Hip flexion, Hip abd/add Seated Reps: 15 Standing: Hip Abduction, Heel/toe raises, Marching, Mini squats, Sit to Stand Standing Reps: 15 Assessment Current Status: Good Progress pain and SOB limits participation and function PT Short Term Goals Short Term Goals Time Frame: Dec 14, 2017 Transfers (B,C,W/C) (FIM): 4 Gait (FIM): 2 Gait Distance Comment: 50' Gait Level of Assist: 5 Gait Assistive Device: FWW PT Jail Goals Jail Goals PT Jail Goals Time Frame: Dec 28, 2017 Transfers (B,C,W/C) (FIM): 5 Sit to Lying (QC): 4 Lying-Sitting on Side/Bed(QC): 4 Sit to Stand (QC): 4 Rollin Roll Left to Right (QC): 4 Chair/Zoh-he-Qbetn Xfer(QC): 4 Car Transfer (QC): 4 Gait (FIM): 5 Distance: 150' Walk 10 feet (QC): 4 Walk 10ft-Uneven Surface(QC): 4 Walk 50ft with 2 Turns (QC): 4 Walk 150 ft (QC): 4 Gait Level of Assist: 5 Gait Assistive Device: FWW Stairs (FIM): 2 # of Steps: 4 1 Step (curb) (QC): 4 4 Steps (QC): 4 Stairs Level Of Assist: 4 PT Plan Treatment/Plan Treatment Plan: Continue Plan of Care Treatment Plan: Bed Mobility, Concurrent Therapy, Education, Functional Activity French, Functional Strength, Group Therapy, Gait, Safety, Therapeutic Exercise, Transfers Treatment Duration: Dec 28, 2017 Frequency: At least 5 of 7 days/Wk (IRF) Estimated Hrs Per Day: 1.5 hours per day Patient and/or Family Agrees t: Yes Safety Risks/Education Patient Education: Gait Training, Transfer Techniques, Correct Positioning, Disease Process, Safety Issues Teaching Recipient: Patient Teaching Methods: Demonstration, Discussion Response to Teaching: Verbalize Understanding, Return Demonstration, Reinforcement Needed Time/GCodes Time In: 900 Time Out: 1000 Total Billed Treatment Time: 60 Total Billed Treatment 1,GT20m,FA25m,EX15m G Codes Necessary: SOWMYA Kam TRANSMISSION SYSTEMS OPERATOR Dec 16, 2017 10:01
--- NOTE | 2017-12-16 10:05 | PM & R (SOAP) Progress Note ---
Subjective This was a face to face visit with the patient. Date Seen by Provider: Dec 16, 2017 Time Seen by Provider: 07:55 Subjective/Events-last exam Patient was seen in her room this AM,Patient SBA for transfers. Objective Physician Exam Last Set of Vital Signs Vital Signs Date Time Temp Pulse Resp B/P (MAP) Pulse Ox O2 Delivery O2 Flow Rate FiO2 12/16/17 06:53 96 Nasal Cannula 4.00 12/16/17 06:00 98.5 70 20 164/74 (104) Capillary Refill : I&O Intake and Output 12/16/17 00:00 Intake Total 1100 ml Balance 1100 ml Intake Oral 1100 ml # Voids 7 # Bowel Movements 1 General: Alert, Oriented X3, Cooperative, No Acute Distress HEENT: Atraumatic, PERRLA, EOMI, Mucous Memb Moist/[place] Neck: Supple, No JVD Lungs: Clear to Auscultation Heart: Regular Rate Abdomen: Normal Bowel Sounds, Soft, No Tenderness Extremities: No Edema Skin: Other (Incision healing well) Neuro: Other (Proximal weakness Both lower limbs hip flex 3+/5 Knee 4/5 Dorsiflex 5/5) Psych/Mental Status: Mental Status NL Assessment/Plan Assessment and Plan Lumbar spinal stenosis and radiculopathy s/p redo surgery 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
--- NOTE | 2017-12-16 14:27 | Therapy Group Daily Note ---
Therapy Daily Group Note Patient Education Topic Other List Below (memory loss and strategies, aging and the senses) Other/Notes Pt. participated in PT OT group this date. Pt. was social, introducing herself and sharing "what I would be famous for" . Pts. were educated on the affects of aging on the 5 senses , as well as memory and aging and strategies for managing memory loss. Pts. all participated in memory game by matching images etc. Pt. to from room with assist O2 using FWW with assist. In room after assist in to bed with bol[place] at hand Start Time: 13:00 Stop Time: 14:10 Total Billed Treatment Time: 70 Total Billed Treatment 1,GRP SOWMYA MORFIN HEALTHCARE ACCOUNT MANAGER Dec 16, 2017 14:27
[2017-12-16] MEDS: ENOXAPARIN 40 MG/0.4 ML (LOVENOX) SYR SC SCH (16:06)
[2017-12-16 17:42] VITALS: BP 134/75
[2017-12-16] MEDS: SIMvastatin 40 MG (ZOCOR) TAB PO SCH (20:21)
[2017-12-17] MEDS: HYDROcodone/APAP 5 MG/325 MG (LORTAB) TAB PO PRN ×4 (01:08→23:07)
[2017-12-17 05:44] VITALS: BP 132/66
[2017-12-17] MEDS: PANTOPRAZOLE 40 MG (PROTONIX) TAB PO SCH (06:10)
[2017-12-17] MEDS: BEVESPI INHALER PO SCH ×2 (07:16→20:07)
[2017-12-17] MEDS: RT-ALBUTEROL SULF 2.5 MG/3 ML PRE-MIX VIAL IH SCH ×4 (07:16→19:16)
[2017-12-17] MEDS: POLYETHYLENE GLYCOL 17 GM (MIRALAX) PACK PO SCH ×2 (08:01→20:04)
[2017-12-17] MEDS: NICOTINE PATCH REMOVAL TP SCH (08:05)
[2017-12-17] MEDS: lisINopril 20 MG (PRINIVIL) TABLET PO SCH (08:05)
[2017-12-17] MEDS: KCL 10 MEQ TAB (MICRO K) PO SCH ×2 (08:05→20:04)
[2017-12-17] MEDS: DOCUSATE SODIUM 100 MG (COLACE) CAP PO SCH ×2 (08:05→20:04)
[2017-12-17] MEDS: NICOTINE 14 MG (NICODERM) PATCH TD SCH (08:05)
[2017-12-17] MEDS: meTOprolol SUCCINATE 100 MG (TOPROL XL) TAB PO SCH (08:05)
--- NOTE | 2017-12-17 10:03 | Physical Therapy Daily Note ---
PT Daily Note-Current Subjective Pt. declined PT Rx x 2 this date stating she just felt "punk". Pt. states she is anxious to see her family today, requests 3 chairs be brought to her room and asks to be left alone with door closed. Transfers Functional [place] Measure 0=Not Assessed/NA 4=Minimal Assistance 1=Total Assistance 5=Supervision or Setup 2=Maximal Assistance 6=Modified [place] 3=Moderate Assistance 7=Complete IndependenceIRFPAI Quality Coding Scale 6 Independent with activity with or without an assistive device 5 Patient requires set up or clean up by helper. Patient completes activity by themselves 4 Supervision or touching assist (CGA). [place] provide cues , steadying assist 3 The helper provides less than half the effort to complete the activity 2 The helper provides more than half the effort to complete the activity 1 Dependent. The helper does all the effort to complete an activity 7 Patient refused to complete or attempt activity 9 The patient did not perform the activity before the current illness or injury 88 Not attempted due to Medical conditions or safety concerns Weight Bearing Right Lower Extremity: Right Full Weight Bearing Left Lower Extremity: Left Full Weight Bearing Assessment Current Status: Refused Treatment PT Short Term Goals Short Term Goals Time Frame: Dec 14, 2017 Transfers (B,C,W/C) (FIM): 4 Gait (FIM): 2 Gait Distance Comment: 50' Gait Level of Assist: 5 Gait Assistive Device: FWW PT Skilled Nursing Goals Mystery Shopper Goals PT Mystery Shopper Goals Time Frame: Dec 28, 2017 Transfers (B,C,W/C) (FIM): 5 Sit to Lying (QC): 4 Lying-Sitting on Side/Bed(QC): 4 Sit to Stand (QC): 4 Rollin Roll Left to Right (QC): 4 Chair/Gvx-sz-Uialh Xfer(QC): 4 Car Transfer (QC): 4 Gait (FIM): 5 Distance: 150' Walk 10 feet (QC): 4 Walk 10ft-Uneven Surface(QC): 4 Walk 50ft with 2 Turns (QC): 4 Walk 150 ft (QC): 4 Gait Level of Assist: 5 Gait Assistive Device: FWW Stairs (FIM): 2 # of Steps: 4 1 Step (curb) (QC): 4 4 Steps (QC): 4 Stairs Level Of Assist: 4 PT Plan Treatment/Plan Treatment Plan: Continue Plan of Care Treatment Plan: Bed Mobility, Concurrent Therapy, Education, Functional Activity French, Functional Strength, Group Therapy, Gait, Safety, Therapeutic Exercise, Transfers Treatment Duration: Dec 28, 2017 Frequency: At least 5 of 7 days/Wk (IRF) Estimated Hrs Per Day: 1.5 hours per day Patient and/or Family Agrees t: Yes Time/GCodes Time In: 1000 Time Out: 1005 Total Billed Treatment Time: 0 Total Billed Treatment 1,NO Rx, No chg G Codes Necessary: SOWMYA Kam DIRECTOR OF ORTHOPEDICS Dec 17, 2017 10:02
[2017-12-17] MEDS: ENOXAPARIN 40 MG/0.4 ML (LOVENOX) SYR SC SCH (15:49)
[2017-12-17 17:26] VITALS: BP 142/70
[2017-12-17] MEDS: SIMvastatin 40 MG (ZOCOR) TAB PO SCH (20:04)
[2017-12-18] MEDS: HYDROcodone/APAP 5 MG/325 MG (LORTAB) TAB PO PRN ×4 (04:56→18:58)
[2017-12-18 05:12] VITALS: BP 114/67
[2017-12-18] MEDS: PANTOPRAZOLE 40 MG (PROTONIX) TAB PO SCH (06:50)
[2017-12-18] MEDS: RT-ALBUTEROL SULF 2.5 MG/3 ML PRE-MIX VIAL IH SCH ×4 (07:30→19:04)
[2017-12-18] MEDS: BEVESPI INHALER PO SCH ×2 (07:31→19:04)
[2017-12-18] MEDS: KCL 10 MEQ TAB (MICRO K) PO SCH ×2 (08:02→20:13)
[2017-12-18] MEDS: meTOprolol SUCCINATE 100 MG (TOPROL XL) TAB PO SCH (08:02)
[2017-12-18] MEDS: lisINopril 20 MG (PRINIVIL) TABLET PO SCH (08:02)
[2017-12-18] MEDS: POLYETHYLENE GLYCOL 17 GM (MIRALAX) PACK PO SCH ×2 (08:03→20:14)
[2017-12-18] MEDS: NICOTINE 14 MG (NICODERM) PATCH TD SCH (08:04)
[2017-12-18] MEDS: DOCUSATE SODIUM 100 MG (COLACE) CAP PO SCH ×2 (08:04→20:15)
[2017-12-18] MEDS: NICOTINE PATCH REMOVAL TP SCH (08:04)
[2017-12-18] MEDS: ENOXAPARIN 40 MG/0.4 ML (LOVENOX) SYR SC SCH (16:07)
[2017-12-18 17:37] VITALS: BP 144/72
[2017-12-18] MEDS: SIMvastatin 40 MG (ZOCOR) TAB PO SCH (20:14)
--- NOTE | 2017-12-18 21:18 | PM & R (SOAP) Progress Note ---
Subjective This was a face to face visit with the patient. Date Seen by Provider: Dec 18, 2017 Time Seen by Provider: 21:05 Subjective/Events-last exam Patient was seen in her room this AM Patient SBA for transfers Objective Physician Exam Last Set of Vital Signs Vital Signs Date Time Temp Pulse Resp B/P (MAP) Pulse Ox O2 Delivery O2 Flow Rate FiO2 12/18/17 19:05 92 Nasal Cannula 2.00 12/18/17 17:37 97.9 79 18 144/72 (96) Capillary Refill : I&O Intake and Output 12/18/17 00:00 Intake Total 980 ml Balance 980 ml Intake Oral 980 ml # Voids 6 # Bowel Movements 2 General: Alert, Oriented X3, Cooperative, No Acute Distress HEENT: Atraumatic, PERRLA, EOMI, Mucous Memb Moist/[place] Neck: Supple, No JVD Lungs: Clear to Auscultation Heart: Regular Rate Abdomen: Normal Bowel Sounds, Soft, No Tenderness Extremities: No Edema Skin: Other (Incision healing well) Neuro: Other (Proximal weakness Both lower limbs hip flex 3+/5 Knee 4/5 Dorsiflex 5/5) Psych/Mental Status: Mental Status NL Assessment/Plan Assessment and Plan Lumbar spinal stenosis with radiculopathy s/p redo surgery COPD o2 dependent Postop constipation treated Postop anemia HTN HLP Gerd on med DVT prophylaxis on Lovenox subcut Hyponatremia Plan Continue PT/OT' Discharge remains set tentatively for 12-20-17 Check incision site recheck Labs Co-Morbidities that are continuing to impact the rehab process: (include details ) GALO COLVIN MD Dec 18, 2017 21:18
[2017-12-19] MEDS: HYDROcodone/APAP 5 MG/325 MG (LORTAB) TAB PO PRN ×3 (00:13→17:08)
[2017-12-19] MEDS: CYCLOBENZAPRINE 10 MG (FLEXERIL) TAB PO PRN ×3 (03:12→20:23)
[2017-12-19 06:00] VITALS: BP 146/76
[2017-12-19] MEDS: RT-ALBUTEROL SULF 2.5 MG/3 ML PRE-MIX VIAL IH SCH ×4 (06:45→19:45)
[2017-12-19] MEDS: BEVESPI INHALER PO SCH ×2 (06:48→19:45)
[2017-12-19] MEDS: PANTOPRAZOLE 40 MG (PROTONIX) TAB PO SCH (06:49)
--- NOTE | 2017-12-19 07:51 | Occupational Ther Daily Note ---
OT Current Status-Daily Note Subjective Pt alert, lying in bed. Nrsg reported that pain meds were given around 0630. Pt states that pain is manageable when in bed then begins to hurt when moving. Pt agrees to therapy. Rushing through tasks to get finished due to pain, reported by pt. Pt states that she will have a persons to give her a bath for a couple of weeks then she should be able to step into tub. [place] continues to remind pt that she needs to work on all of this during therapy so she will be ready to do more for herself when she is home. Pt states that she has people including that will be able to help her. Mental Status/Objective Patient Orientation: Person, Place, Time, Situation Functional [place] Measure 0=Not Assessed/NA 4=Minimal Assistance 1=Total Assistance 5=Supervision or Setup 2=Maximal Assistance 6=Modified [place] 3=Moderate Assistance 7=Complete [place] ADL-Treatment Functional [place] Measure 0=Not Assessed/NA 4=Minimal Assistance 1=Total Assistance 5=Supervision or Setup 2=Maximal Assistance 6=Modified [place] 3=Moderate Assistance 7=Complete IndependenceIRFPAI Quality Coding Scale 6 Independent with activity with or without an assistive device 5 Patient requires set up or clean up by helper. Patient completes activity by themselves 4 Supervision or touching assist (CGA). [place] provide cues , steadying assist 3 The helper provides less than half the effort to complete the activity 2 The helper provides more than half the effort to complete the activity 1 Dependent. The helper does all the effort to complete an activity 7 Patient refused to complete or attempt activity 9 The patient did not perform the activity before the current illness or injury 88 Not attempted due to Medical conditions or safety concerns Eating (FIM): 7 (Has partial, but does not put it in and is able to eat without it. Opens packages and containers by self then uses regular utensils to feeds self.) Eating (QC): 6 Grooming (FIM): 6 (Sitting at sink, pt completes own grooming.) Oral Hygiene (QC): 6 Bathing (FIM): 6 (Using long handle sponge, grabbars, hand held shower and shower bench pt is able to complete shower by self. Safety concerns. Pt rushes through shower.) Bathing Location: L Arm, R Arm, L Upper Leg, R Upper Leg, L Lower Leg ( including foot), R Lower Leg (including foot), Chest, Abdomen, Buttocks, Perineal Area Shower/Bathe Self (QC): 6 Upper Body (FIM): 6 (Transported using FWW. Pt continues to decline using regular clothing stating that it hurts incision site. Pt is able to lift tied hospital gown over head. Safety concerns.) Upper Body Dressing (QC): 6 Lower Body Dressing (FIM): 6 (Pt transported clothing using FWW. Using AE to doff over feet. Sock aide to don socks. Pt able to don briefs over feet adhering to back precautions then hike over hips using FWW. Safety concerns. Pt has 4WW at home can sit in seat to complete.) Lower Body Dressing (QC): 6 On/Off Footwear (QC): 6 Toileting (FIM): 6 (Using grabbars and FWW pt able to complete toileting.) Toileting Hygiene (QC): 6 Transfers (B, C, W/C) (FIM): 6 (Using FWW. Discussed bed transfers at home. Pt has arnold sized bed not hospital bed so discussed keeping HOB flat for transfers. Pt stated that she has bedside table to use help getting up.) Toilet/Commode Transfer (FIM): 6 (Using FWW and grabbar for transfer. Safety concerns.) Toilet Transfer (QC): 6 Shower Transfer(FIM): 6 (Using FWW, grabbars and shower bench. Pt stated that she has a shower chair and grabbars at home.) Pt educated on donning/doffing back brace. Pt stated that her will help her with this. After therapy, pt sitting in recliner with call light/ phone in recliner. All needs met in room. OT Short Term Goals Short Term Goals Transfers (B,C,W/C) (FIM): 4 1=Demonstrate adherence to instructed precautions during ADL tasks. 2=Patient will verbalize/demonstrate understanding of assistive devices/ modifications for ADL. 3=Patient will improve strength/tolerance for activity to enable patient to perform ADL's. OT Supervisor [place] Goals Group Home Goals Time Frame: Dec 28, 2017 Eating (FIM): 6 (met) Eating (QC): 6 (met) Groomin (met) Oral Hygiene (QC): 6 (met) Bathing(FIM): 5 (met) Shower/Bathe Self (QC): 5 (met) Upper Body Dressing(FIM): 6 (met) Upper Body Dressing (QC): 6 (met) Lower Body Dressing(FIM): 5 (met) Lower Body Dressing (QC): 5 (met) On/Off Footwear (QC): 5 (met) Toileting(FIM): 6 (met) Toileting Hygiene (QC): 6 (met) Toilet/Commode Transfer(FIM): 6 (met) Toilet/Commode Transfer (QC): 6 (met) Shower Transfer(FIM): 5 (met) Additional Goals: 1-Demonstrate ADL Tasks, 2-Verbalize Understanding, 3- ImproveStrength/French 1=Demonstrate adherence to instructed precautions during ADL tasks. 2=Patient will verbalize/demonstrate understanding of assistive devices/ modifications for ADL. 3=Patient will improve strength/tolerance for activity to enable patient to perform ADL's. OT Education/Plan Discharge Recommendations Plan/Recommendations: Continue POC Treatment Plan/Plan of Care Patient would benefit from OT for education, treatment and training to promote independence in ADL's, mobility, safety and/or upper extremity function for ADL' s. Plan of Care: ADL Retraining, Functional Mobility, Group Exercise/Act as Ind, UE Funct Exercise/Act Treatment Duration: Dec 28, 2017 Frequency: At least 5 of 7 days/Wk (IRF) Estimated Hrs Per Day: 1.5 hours per day Agreement: Yes Rehab Potential: Fair Time/GCodes Start Time: 07:00 Stop Time: 08:30 Total Time Billed (hr/min): 90 Billed Treatment Time 1 visit-ADL 6 (90 min) MARICEL HERBERT Dec 19, 2017 07:51
[2017-12-19] MEDS: meTOprolol SUCCINATE 100 MG (TOPROL XL) TAB PO SCH (08:28)
[2017-12-19] MEDS: lisINopril 20 MG (PRINIVIL) TABLET PO SCH (08:28)
[2017-12-19] MEDS: KCL 10 MEQ TAB (MICRO K) PO SCH ×2 (08:28→20:23)
[2017-12-19] MEDS: POLYETHYLENE GLYCOL 17 GM (MIRALAX) PACK PO SCH ×2 (08:30→20:23)
[2017-12-19] MEDS: DOCUSATE SODIUM 100 MG (COLACE) CAP PO SCH ×2 (08:30→20:23)
[2017-12-19] MEDS: NICOTINE 14 MG (NICODERM) PATCH TD SCH (08:31)
[2017-12-19] MEDS: NICOTINE PATCH REMOVAL TP SCH (08:31)
--- NOTE | 2017-12-19 08:47 | PM & R (SOAP) Progress Note ---
Subjective This was a face to face visit with the patient. Date Seen by Provider: Dec 19, 2017 Time Seen by Provider: 08:00 Subjective/Events-last exam Patient was seen in her room this Patient SBA for transfers.Incision viewed has healed well Francisco in place will f/u with RN re removal date for francisco Objective Physician Exam Last Set of Vital Signs Vital Signs Date Time Temp Pulse Resp B/P (MAP) Pulse Ox O2 Delivery O2 Flow Rate FiO2 12/19/17 06:45 95 Nasal Cannula 2.00 12/19/17 06:00 98.1 71 18 146/76 (99) Capillary Refill : I&O Intake and Output 12/19/17 00:00 Intake Total 1130 ml Balance 1130 ml Intake Oral 1130 ml # Voids 7 # Bowel Movements 1 General: Alert, Oriented X3, Cooperative, No Acute Distress HEENT: Atraumatic, PERRLA, EOMI, Mucous Memb Moist/[place] Neck: Supple, No JVD Lungs: Clear to Auscultation Heart: Regular Rate Abdomen: Normal Bowel Sounds, Soft, No Tenderness Extremities: No Edema Skin: Other (as per above re lumbar spine incision) Neuro: Other (Proximal weakness Both lower limbs hip flex 3+/5 Knee 4/5 Dorsiflex 5/5) Psych/Mental Status: Mental Status NL Assessment/Plan Assessment and Plan Lumbar spinal stenosis and radiculopathy s/p redo surgery with incision healing well COPD 02 dependent Postop constipation treated Postop anemia HTN HLP Gerd on med DVT Prophylaxis on lovenox subcut Hyponatremia Plan Continue PT/OT F/U re staple removal Discharge set tentatively for tomorrow will confirm with SW Co-Morbidities that are continuing to impact the rehab process: (include details ) GALO COLVIN MD Dec 19, 2017 08:46
--- NOTE | 2017-12-19 09:57 | Physical Therapy Daily Note ---
PT Daily Note-Current Subjective Pt. agrees to Rx and states she is looking forward to DC tomorrow, Pt. states she and her both utilize a ramp, no stairs at the home. States she will not wear the back brace at home. States she is counting on the home care PT and nursing care. Rates back pain at 7/10 jesusita during TRF sit to stand Pain Numeric Pain Scale: 7 Location: Medial Location Body Site: Back Pain Description: Ache Mental Status Patient Orientation: Normal For Age Attachments: Other-See Comments (back brace) Transfers Functional [place] Measure 0=Not Assessed/NA 4=Minimal Assistance 1=Total Assistance 5=Supervision or Setup 2=Maximal Assistance 6=Modified [place] 3=Moderate Assistance 7=Complete IndependenceIRFPAI Quality Coding Scale 6 Independent with activity with or without an assistive device 5 Patient requires set up or clean up by helper. Patient completes activity by themselves 4 Supervision or touching assist (CGA). [place] provide cues , steadying assist 3 The helper provides less than half the effort to complete the activity 2 The helper provides more than half the effort to complete the activity 1 Dependent. The helper does all the effort to complete an activity 7 Patient refused to complete or attempt activity 9 The patient did not perform the activity before the current illness or injury 88 Not attempted due to Medical conditions or safety concerns Transfers (B, C, W/C) (FIM): 5 Scootin Rollin Roll Left to Right (QC): 5 Supine to/from Sit: 6 Sit to/from Stand: 6 Sit to Lying (QC): 5 Sit to Stand (QC): 5 Chair/Jxk-ul-Jnfzt Xfer(QC): 5 Bed to/from Chair: 5 Car Transfer (QC): 5 pt. is very slow, had some increased pain with sup to sit and sit to sup Weight Bearing Right Lower Extremity: Right Full Weight Bearing Left Lower Extremity: Left Full Weight Bearing Gait Training Does the Patient Walk?: Yes Gait (FIM): 5 Distance (FIM): 3=150 ft ([id number]) Walk 10 feet (QC): 5 Walk 50 ft with 2 Turns(QC): 5 Walk 150 ft (QC): 5 Walking 10ft/uneven surface-QC: 5 Gait Level of Assist: 5 Gait Persons Needed: 1 Gait Assistive Device: FWW pt. states she will use a "rollator" at home and likes it better. Pt. needs instruction for cross overs noted at turns and for stability as she has pain exacerbations during gait at which time she stops to gait security again. Wheelchair Training Does the Pt Use a Wheelchair?: Yes Wheelchair (FIM): 5 Wheelchair Distance: 3=150 ft Wheelchair Level of Assist: 5 Wheel 50 ft with 2 turns (QC): 5 Wheel 150 ft (QC): 5 Type of Wheelchair: Manual propels with crow LEs Stair Training Stair Training: Handrails/: uses walker Stairs (FIM): 1 #of Steps: 2 1 Step (curb) (QC): 2 Stairs: Pattern: Step to Level of Assist: 4 Balance Special Test Comments unsafe to trial Exercises NuStep Minutes: 8 NuStep Workload: 1 Treatments leg presses on Nustep x 12 Assessment Current Status: Good Progress pt. unable to dave back brace indep, states she wont een wear it at home , "it is so uncomfortable, maybe it will be better after the francisco are out" PT Short Term Goals Short Term Goals Time Frame: Dec 14, 2017 Transfers (B,C,W/C) (FIM): 4 Gait (FIM): 2 Gait Distance Comment: 50' Gait Level of Assist: 5 Gait Assistive Device: FWW PT Fci Goals Fci Goals PT Multimedia Teacher Goals Time Frame: Dec 28, 2017 Transfers (B,C,W/C) (FIM): 5 Sit to Lying (QC): 4 Lying-Sitting on Side/Bed(QC): 4 Sit to Stand (QC): 4 Rollin Roll Left to Right (QC): 4 Chair/Pxg-if-Jnugw Xfer(QC): 4 Car Transfer (QC): 4 Gait (FIM): 5 Distance: 150' Walk 10 feet (QC): 4 Walk 10ft-Uneven Surface(QC): 4 Walk 50ft with 2 Turns (QC): 4 Walk 150 ft (QC): 4 Gait Level of Assist: 5 Gait Assistive Device: FWW Stairs (FIM): 2 # of Steps: 4 1 Step (curb) (QC): 4 4 Steps (QC): 4 Stairs Level Of Assist: 4 PT Plan Treatment/Plan Treatment Plan: Continue Plan of Care Treatment Plan: Bed Mobility, Concurrent Therapy, Education, Functional Activity French, Functional Strength, Group Therapy, Gait, Safety, Therapeutic Exercise, Transfers Treatment Duration: Dec 28, 2017 Frequency: At least 5 of 7 days/Wk (IRF) Estimated Hrs Per Day: 1.5 hours per day Patient and/or Family Agrees t: Yes Safety Risks/Education Patient Education: Gait Training, Transfer Techniques, Steps, Correct Positioning, Disease Process, Safety Issues Teaching Recipient: Patient Teaching Methods: Demonstration, Discussion Response to Teaching: Verbalize Understanding, Return Demonstration, Reinforcement Needed Time/GCodes Time In: 840 Time Out: 1000 Total Billed Treatment Time: 80 Total Billed Treatment 1,FA45m,GT15m,EX20m G Codes Necessary: SOWMYA Kam FOOD STYLIST Dec 19, 2017 09:56
--- NOTE | 2017-12-19 10:08 | D/C HH Face to Face Order ---
D/C Face to Face Orders Instructions for Patient [facility] ([place]) [phone] Patient Instructions/FollowUp: Dr. Gareth Hancock Physician to follow Patient: Dr. Cancino Discharge Diet for Home: Regular Diet Patient Data-Allergies,Ht & Wt Patient Allergies: Coded Allergies: tramadol (Unverified Allergy, Unknown, Has received morphine w/o issue, ) per pt Height (Feet): 5 Height (Inches): 1.00 Weight (Pounds): 135 Weight (Ounces): 0.0 Home Health Need/Face to Face Date of Face to Face: Dec 20, 2017 Clinical Findings: Generalized weakness and fatigue, Muscle weakness, Unsteady gait I have seen Pt rapv-ji-kzbk: Yes Discharged To: Home Diagnosis/Conditions: debility post lumbar radiculopathy, neurogenic claudication Patient is Homebound due to: Shahid fall risk due to instabilty, Muscle weakness , Pain w/ambulation, Shortness of breath/distress Homebound Status Due to the above stated illness, injury or surgical procedure (medical condition or diagnosis) and associated clinical findings, the patient is homebound because of his/her inability to leave home except with aid of a supportive device and/or person AND leaving the home requires a considerable and taxing effort or is medically contraindicated. Pt req the following assistanc: Walker Home Health Nursing Orders Home Health Services Order: Nursing Services, Game Master-Evaluate & Treat, Physical Therapy-Evaluate & Treat, Other RN to assess and treat wound. Bath aide for assistance. Therapy to assist with brace. Patient to wear brace at all times except when in bed and when sitting in chair Therapy Orders Therapy Orders: Physical Therapy Therapy Specific Orders: Eval assistive deivces, Teach enviro modifications/ safety, Gait training, Increase strength/endurance, Restore ROM Certify Stmt I certify that this patient is under my care and that I, a nurse practitioner or a physician; a payroll human resources assistant working with me, had a face to face encounter that - meets the physician face to face encounter requirements with this patient as dated. I personally scribed for GALO COLVIN MD ([facility]) on 12/19/17 at 10:08. Electronically submitted by Martina Garrison ([id number]). GALO COLVIN MD Dec 19, 2017 10:08
--- NOTE | 2017-12-19 13:43 | Physical Therapy Daily Note ---
PT Daily Note-Current Subjective Pt. on toilet, states she will walk if she can, is having 8/10 pain and this is causing her breathing to be more labored. Wants in bed after gait Pain Numeric Pain Scale: 8 Location: Medial Location Body Site: Back Pain Description: Ache, Sharp Mental Status Patient Orientation: Person, Place, Time, Situation Attachments: Other-See Comments (back brace on off with assist) Transfers Functional [place] Measure 0=Not Assessed/NA 4=Minimal Assistance 1=Total Assistance 5=Supervision or Setup 2=Maximal Assistance 6=Modified [place] 3=Moderate Assistance 7=Complete IndependenceIRFPAI Quality Coding Scale 6 Independent with activity with or without an assistive device 5 Patient requires set up or clean up by helper. Patient completes activity by themselves 4 Supervision or touching assist (CGA). [place] provide cues , steadying assist 3 The helper provides less than half the effort to complete the activity 2 The helper provides more than half the effort to complete the activity 1 Dependent. The helper does all the effort to complete an activity 7 Patient refused to complete or attempt activity 9 The patient did not perform the activity before the current illness or injury 88 Not attempted due to Medical conditions or safety concerns min assist LEs in bed , CGA off toilet Weight Bearing Right Lower Extremity: Right Full Weight Bearing Left Lower Extremity: Left Full Weight Bearing Gait Training Does the Patient Walk?: Yes Gait (FIM): 2 Distance (FIM): 8=354-38 ft (100ft) Gait Assistive Device: FWW practiced gait with extended tubing, pt. states however that she will take O2 off to walk at home, needed instruction for safety and managing long tube Treatments managed toileting and pants indep Assessment Current Status: Good Progress pain limits function this Rx PT Short Term Goals Short Term Goals Time Frame: Dec 14, 2017 Transfers (B,C,W/C) (FIM): 4 Gait (FIM): 2 Gait Distance Comment: 50' Gait Level of Assist: 5 Gait Assistive Device: FWW PT Professor Of Special Education Goals Custodial Goals PT Professor Of Special Education Goals Time Frame: Dec 28, 2017 Transfers (B,C,W/C) (FIM): 5 Sit to Lying (QC): 4 Lying-Sitting on Side/Bed(QC): 4 Sit to Stand (QC): 4 Rollin Roll Left to Right (QC): 4 Chair/Mog-br-Lcvfz Xfer(QC): 4 Car Transfer (QC): 4 Gait (FIM): 5 Distance: 150' Walk 10 feet (QC): 4 Walk 10ft-Uneven Surface(QC): 4 Walk 50ft with 2 Turns (QC): 4 Walk 150 ft (QC): 4 Gait Level of Assist: 5 Gait Assistive Device: FWW Stairs (FIM): 2 # of Steps: 4 1 Step (curb) (QC): 4 4 Steps (QC): 4 Stairs Level Of Assist: 4 PT Plan Treatment/Plan Treatment Plan: Continue Plan of Care Treatment Plan: Bed Mobility, Concurrent Therapy, Education, Functional Activity French, Functional Strength, Group Therapy, Gait, Safety, Therapeutic Exercise, Transfers Treatment Duration: Dec 28, 2017 Frequency: At least 5 of 7 days/Wk (IRF) Estimated Hrs Per Day: 1.5 hours per day Patient and/or Family Agrees t: Yes Safety Risks/Education Patient Education: Gait Training, Transfer Techniques, Correct Positioning, Disease Process, Safety Issues Teaching Recipient: Patient Teaching Methods: Demonstration, Discussion Response to Teaching: Verbalize Understanding, Return Demonstration, Reinforcement Needed Time/GCodes Time In: 1330 Time Out: 1340 Total Billed Treatment Time: 10 Total Billed Treatment 1,FA10m SOWMYA MORFIN LITHARGE SUPERVISOR Dec 19, 2017 13:43
[2017-12-19] MEDS ORDERED: ACHD5005 PO (14:32)
[2017-12-19] MEDS ORDERED: CYCL10TA9 PO (14:32)
[2017-12-19] MEDS ORDERED: NICO-587 TD (14:32)
[2017-12-19] MEDS: ENOXAPARIN 40 MG/0.4 ML (LOVENOX) SYR SC SCH (16:00)
[2017-12-19 17:19] VITALS: BP 124/63
[2017-12-19] MEDS: SIMvastatin 40 MG (ZOCOR) TAB PO SCH (20:23)
[2017-12-20] MEDS: HYDROcodone/APAP 5 MG/325 MG (LORTAB) TAB PO PRN ×2 (02:59→08:25)
[2017-12-20 05:14] VITALS: BP 140/57
[2017-12-20 05:25] LABS: HEMOGLOBIN 9.4 G/DL (11.5-16.0); MEAN PLATELET VOLUME 7.9 FL (7.4-10.4); RED BLOOD COUNT 3.11 10^6/uL (4.35-5.85); RED CELL DISTRIBUTION WIDTH 14.3 % (10.0-14.5); WHITE BLOOD COUNT 5.3 10^3/uL (4.3-11.0)
[2017-12-20 05:55] LABS: ALANINE AMINOTRANSFERASE 19 U/L (0-55); ALBUMIN 3.5 GM/DL (3.2-4.5); ALKALINE PHOSPHATASE 54 U/L (40-136); BILIRUBIN,TOTAL 0.2 MG/DL (0.1-1.0); BUN/CREATININE RATIO 19; CALCIUM 9.3 MG/DL (8.5-10.1); CARBON DIOXIDE 23 MMOL/L (21-32); CHLORIDE 102 MMOL/L (98-107); CREATININE SERUM 0.63 MG/DL (0.60-1.30); GFR ESTIMATED > 60; GLUCOSE 101 MG/DL (70-105); SODIUM 135 MMOL/L (135-145); TOTAL PROTEIN 6.3 GM/DL (6.4-8.2)
[2017-12-20] MEDS: PANTOPRAZOLE 40 MG (PROTONIX) TAB PO SCH (06:45)
[2017-12-20] MEDS: RT-ALBUTEROL SULF 2.5 MG/3 ML PRE-MIX VIAL IH SCH (07:07)
[2017-12-20] MEDS: BEVESPI INHALER PO SCH (07:08)
[2017-12-20] MEDS: DOCUSATE SODIUM 100 MG (COLACE) CAP PO SCH (08:24)
[2017-12-20] MEDS: lisINopril 20 MG (PRINIVIL) TABLET PO SCH (08:24)
[2017-12-20] MEDS: NICOTINE PATCH REMOVAL TP SCH (08:24)
[2017-12-20] MEDS: KCL 10 MEQ TAB (MICRO K) PO SCH (08:24)
[2017-12-20] MEDS: meTOprolol SUCCINATE 100 MG (TOPROL XL) TAB PO SCH (08:24)
[2017-12-20] MEDS: NICOTINE 14 MG (NICODERM) PATCH TD SCH (08:25)
[2017-12-20] MEDS: POLYETHYLENE GLYCOL 17 GM (MIRALAX) PACK PO SCH (08:25)
[2017-12-20 09:18] VITALS: BP 133/73
--- NOTE | 2017-12-20 10:13 | Therapy Team Discharge Summary ---
Therapy Discharge Summary Discharge Recommendations Date of Discharge Therapy D/C Recommendations: Home w/ Family Support Physical Therapy Patient came to rehab following spinal surgery for L2-3 TLIF, PSF, L2 kyphoplasty. Upon evaluation patient performed rolling with min assist, supine <-> sit with min assist, sit to stand with CGA, transfers CGA, car transfer min assist, ambulated 30' with a rolling walker with CGA, no stairs at this time. Patient has been performing bed mobility and transfer training, balance and endurance training, functional strengthening, gait training, and education. Patient has made fair progress and has met all of her chcf goals except for stairs. Now, patient performs bed mobility with mod I, transfers with SBA, car transfer with SBA, ambulates 160' with a rolling walker with SBA (including 50' with at least 2 turns of 90 degrees and 10' over an uneven surface), and can propel a manual wheelchair 150' with SBA. No stairs at this time and patient states she will not have to perform stairs at home. Patient is discharging from this facility today and will be discharged from PT at this time. Occupational Therapy Decreased Activ Tolerance, Decreased UE Strength, Dependent Transfers, Impaired Funct Balance, Impaired Self-Care Skills PT Assistant Chief Nursing Officer Goals Intermediate Goals PT Assistant Chief Nursing Officer Goals Time Frame: Dec 28, 2017 Transfers (B,C,W/C) (FIM): 5 Roll Left to Right (QC): 4 Sit to Lying (QC): 4 Lying-Sitting on Side/Bed(QC): 4 Sit to Stand (QC): 4 Chair/Hwp-kz-Kvkir Xfer(QC): 4 Car Transfer (QC): 4 Gait (FIM): 5 Distance: 150' Walk 10 feet (QC): 4 Walk 10ft-Uneven Surface(QC): 4 Walk 50ft with 2 Turns (QC): 4 Walk 150 ft (QC): 4 Gait Level of Assist: 5 Gait Assistive Device: FWW Stairs (FIM): 2 # of Steps: 4 1 Step (curb) (QC): 4 4 Steps (QC): 4 Stairs Level Of Assist: 4 OT Assistant Chief Nursing Officer Goals Intermediate Goals Time Frame: Dec 28, 2017 Eating (FIM): 6 (met) Eating (QC): 6 (met) Oral Hygiene (QC): 6 (met) Grooming(FIM): 6 (met) Bathing(FIM): 5 (met) Shower/Bathe Self (QC): 5 (met) Upper Body Dressing(FIM): 6 (met) Upper Body Dressing (QC): 6 (met) Lower Body Dressing(FIM): 5 (met) Lower Body Dressing (QC): 5 (met) On/Off Footwear (QC): 5 (met) Toileting(FIM): 6 (met) Toileting Hygiene (QC): 6 (met) Toilet/Commode Transfer(FIM): 6 (met) Toilet/Commode Transfer (QC): 6 (met) Shower Transfer(FIM): 5 (met) Additional Goals: 1-Demonstrate ADL Tasks, 2-Verbalize Understanding, 3- ImproveStrength/French 1=Demonstrate adherence to instructed precautions during ADL tasks. 2=Patient will verbalize/demonstrate understanding of assistive devices/ modifications for ADL. 3=Patient will improve strength/tolerance for activity to enable patient to perform ADL's. Speech Assistant Chief Nursing Officer Goals Intermediate Goals no LTGs established as pt does not require skilled ST NAVID FRIEND PT Dec 20, 2017 10:13
--- NOTE | 2017-12-20 13:31 | Therapy Team Discharge Summary ---
Therapy Discharge Summary Discharge Recommendations Date of Discharge Dec 20, 2017 at 09:18 Therapy D/C Recommendations: Home w/ Family Support Occupational Therapy Pt admitted to ARU following L2-3 TLIF, PSF, L2 kyphoplasty. On admission pt required minimal assistance for toileting and toilet transfer, max assist with LE dressing, and mod assist with bathing. Skilled OT treatment focused on ADL training, transfers, and adaptive equipment training. Pt made good progress with therapy and by discharge is completing basic ADLs and transfers with modified independence. Pt met all OT LTG. Pt discharge home. D/c ARU OT at this time. Decreased Activ Tolerance, Decreased UE Strength, Dependent Transfers, Impaired Funct Balance, Impaired Self-Care Skills PT Prison Goals Prison Goals PT Game Preserve Manager Goals Time Frame: Dec 28, 2017 Transfers (B,C,W/C) (FIM): 5 Roll Left to Right (QC): 4 Sit to Lying (QC): 4 Lying-Sitting on Side/Bed(QC): 4 Sit to Stand (QC): 4 Chair/Tka-zb-Xlupc Xfer(QC): 4 Car Transfer (QC): 4 Gait (FIM): 5 Distance: 150' Walk 10 feet (QC): 4 Walk 10ft-Uneven Surface(QC): 4 Walk 50ft with 2 Turns (QC): 4 Walk 150 ft (QC): 4 Gait Level of Assist: 5 Gait Assistive Device: FWW Stairs (FIM): 2 # of Steps: 4 1 Step (curb) (QC): 4 4 Steps (QC): 4 Stairs Level Of Assist: 4 OT Prison Goals Game Preserve Manager Goals Time Frame: Dec 28, 2017 Eating (FIM): 6 (met) Eating (QC): 6 (met) Oral Hygiene (QC): 6 (met) Grooming(FIM): 6 (met) Bathing(FIM): 5 (met) Shower/Bathe Self (QC): 5 (met) Upper Body Dressing(FIM): 6 (met) Upper Body Dressing (QC): 6 (met) Lower Body Dressing(FIM): 5 (met) Lower Body Dressing (QC): 5 (met) On/Off Footwear (QC): 5 (met) Toileting(FIM): 6 (met) Toileting Hygiene (QC): 6 (met) Toilet/Commode Transfer(FIM): 6 (met) Toilet/Commode Transfer (QC): 6 (met) Shower Transfer(FIM): 5 (met) Additional Goals: 1-Demonstrate ADL Tasks, 2-Verbalize Understanding, 3- ImproveStrength/French 1=Demonstrate adherence to instructed precautions during ADL tasks. 2=Patient will verbalize/demonstrate understanding of assistive devices/ modifications for ADL. 3=Patient will improve strength/tolerance for activity to enable patient to perform ADL's. Speech Prison Goals Prison Goals no LTGs established as pt does not require skilled ST ADITYA JOSE OT Dec 20, 2017 13:31
--- NOTE | 2017-12-20 20:18 | PM & R (SOAP) Progress Note ---
Subjective This was a face to face visit with the patient. Date Seen by Provider: Dec 20, 2017 Time Seen by Provider: 10:00 Subjective/Events-last exam Patient discharged to home with family and HHC today Todays labs reviewed Hypokalemia resolved Anemia stable Date Identified: Dec 20, 2017 Time Identified: 09:00 Medication Intervention: Discharge meds reviewed Objective Physician Exam Last Set of Vital Signs Vital Signs Date Time Temp Pulse Resp B/P (MAP) Pulse Ox O2 Delivery O2 Flow Rate FiO2 12/20/17 09:18 77 18 133/73 95 Nasal Cannula 2.00 12/20/17 05:14 97.7 Capillary Refill : I&O Intake and Output 12/20/17 00:00 Intake Total 1620 ml Balance 1620 ml Intake Oral 1620 ml # Voids 6 # Bowel Movements 1 General: Alert, Oriented X3, Cooperative, No Acute Distress HEENT: Atraumatic, PERRLA, EOMI, Mucous Memb Moist/Erda Neck: Supple, No JVD Lungs: Clear to Auscultation Heart: Regular Rate Abdomen: Normal Bowel Sounds, Soft, No Tenderness Extremities: No Edema Skin: Other (as per above re lumbar spine incision) Neuro: Other (Proximal weakness Both lower limbs hip flex 3+/5 Knee 4/5 Dorsiflex 5/5) Psych/Mental Status: Mental Status NL Results Lab Data Laboratory Tests 12/20/17 05:10: White Blood Count 5.3, Red Blood Count 3.11L, Hemoglobin 9.4L, Hematocrit 29L, Mean Corpuscular Volume 92, Mean Corpuscular Hemoglobin 30, Mean Corpuscular Hemoglobin Concent 33, Red Cell Distribution Width 14.3, Platelet Count 641H, Mean Platelet Volume 7.9, Sodium Level 135, Potassium Level 4.0, Chloride Level 102, Carbon Dioxide Level 23, Anion Gap 10, Blood Urea Nitrogen 12, Creatinine 0.63, Estimat Glomerular Filtration Rate > 60, BUN/Creatinine Ratio 19, Glucose Level 101, Calcium Level 9.3, Corrected Calcium 9.7, Total Bilirubin 0.2, Aspartate Amino Transf (AST/SGOT) 18, Alanine Aminotransferase (ALT/SGPT) 19, Alkaline Phosphatase 54, Total Protein 6.3L, Albumin 3.5 Assessment/Plan Assessment and Plan Home today with HHC and FAMILy F/U with PCP See orders Co-Morbidities that are continuing to impact the rehab process: (include details ) GALO COLVIN MD Dec 20, 2017 20:18
--- NOTE | 2018-01-03 21:23 | DISCHARGE SUMMARY ---
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 She was reevaluated by Dr. Hancock, ortho spine and was admitted to [facility] on 12/05/2017 for redo spinal surgery, specifically exploration of fusion and revision laminectomy L2-L3, transforaminal lumbar interbody fusion L2-L3, application of posterior instrumentation L2-L3, posterior spinal fusion L2-L3, use of human Allograft for spine, use of local bone autograft, application of a titanium cage at L2-L3 and L2 kyphoplasty for lumbar radiculopathy with adjacent segment disease and neurogenic claudication and L2 contracture from pressure fracture with underlying osteoporosis on 12/05/2017. Postoperatively, the patient was followed by hospitalist service, Dr. Galvan in lieu of PCP. The patient required assistance for ADLs and mobility skills and pain management and was referred to inpatient rehabilitation unit. She complained of pain in her back, 09/30. PAST MEDICAL HISTORY: Osteoporosis, lumbar spinal stenosis, arthritis, COPD, tobaccoism, hypertension, prior spinal surgery as per above. 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 MEDICAL COURSE: The patient was followed by hospital service and Dr. Miramontes while in rehab unit. Her O2 sats were 95% on 2 liters of O2 on 12/20/2017. Blood pressure 133/73, respirations 18, pulse 77. She was afebrile during her stay. Her H and H was 9.4/29 on 12/20/2017. Platelet count 641K. Serum sodium 131 on 12/09/2017 and potassium 3.0. She was provided with replacement potassium and serum sodium was 135 on 12/20/2017 and potassium 4.0. Total protein 6.3 on 12/20/2017. Albumin 3.5. Her incision was healing well. She had decreased pain. REHABILITATION COURSE: She was assessed by speech therapy upon admission to rehab unit, found to be cognitively intact and they signed off. The patient had increased strength and endurance. PT notes upon admission, the patient was min assist for bed mobility and car transfers, could ambulate 30 feet with a wheeled walker with contact guard. Upon discharge, the patient was modified independent with bed mobility, transfers with standby assist, car transfers standby assist, could ambulate 160 feet with a wheeled walker with standby assist. OT notes upon admission, the patient required min assist for toileting and toilet transfers, max assist for lower body dressing, mod assist for bathing. The patient made good progress and by discharge, was completing basic ADLs and transfers with modified independence. DISCHARGE INSTRUCTIONS: The patient will have followup with her PCP and Dr. Hancock. She will have home health care services. Continue current diet. DISCHARGE MEDICATIONS: Flexeril 5 mg p.o. t.i.d. p.r.n. muscle spasm, hydrocodone/APAP 5/325 two tablets p.o. q.4 hours p.r.n. moderate pain, nicotine patch 14 mg topically daily, Ventolin HFA 1 to 2 puffs q.i.d. p.r.n. shortness of breath, Bevespi inhaler 2 puffs b.i.d., lisinopril 20 mg p.o. daily, metoprolol 100 mg p.o. daily, omeprazole 40 mg p.o. daily, simvastatin 40 mg p.o. daily. DISCHARGE DIAGNOSES: 1. Rehabilitation lumbar spinal stenosis with neurogenic claudication. 2. Osteoporosis with L2 fracture. 3. Lumbar radiculopathy. 4. Tobaccoism, currently on patch abstaining. 5. Hypertension, controlled. 6. Hyperlipidemia. 7. Gastroesophageal reflux disease. 8. Constipation, treated. 9. O2 dependence. 10. Chronic obstructive pulmonary disease. 11. Hyponatremia, corrected. 12. Hypokalemia, corrected. CONDITION AT DISCHARGE: Improved and stable. PROGNOSIS: Rehab prognosis appears good for goal of being modified independent for ADLs and mobility skills with ongoing therapies and assistance from spouse as needed. Job ID: [id number] DocumentID: [id number] Dictated Date: 01/03/2018 09:41:21 Hydro Generation Supervisor Date: 01/03/2018 21:23:01 Dictated By: GALO MIRAMONTES MD
== END 2017-12-20 09:18 | disposition home health service (06) | DRG 552 ==
PROVIDERS: ADMIT Physical Medicine & Rehabilitation; ATTEND Physical Medicine & Rehabilitation
DX: M48.062 Spinal stenosis, lumbar region with neurogenic claudication (principal); M54.16 Radiculopathy, lumbar region; M80.08XD Age-related osteoporosis with current pathological fracture, vertebra(e), subsequent encounter for fracture with routine healing; Z98.1 Arthrodesis status; J44.9 Chronic obstructive pulmonary disease, unspecified; F17.210 Nicotine dependence, cigarettes, uncomplicated; I10 Essential (primary) hypertension; E78.5 Hyperlipidemia, unspecified; K21.9 Gastro-esophageal reflux disease without esophagitis; K59.00 Constipation, unspecified; Z99.81 Dependence on supplemental oxygen; E87.1 Hypo-osmolality and hyponatremia; E87.6 Hypokalemia
CPT/HCPCS: 36415; 80053; 85025; 85027; 94640; 94760

== ENCOUNTER → 2018-06-05 | Outpatient (CLI) | payer MEDICARE, OTHER ==
[~2018-06-05] MED LIST changes: +ACHD5005 PO; -AMLO5TAB7 PO; +AMLO5TAB9 PO; +HOLD METFORMIN - RECEIVED CONTRAST 20 ML VIAL IV SCH; +IOHEXOL 350 MG/ML 100 ML (OMNIPAQUE 350) VIAL IV ONE; +NICO-587 TD; +RT-ALBUTEROL SULF 2.5 MG/3 ML PRE-MIX VIAL INH ONE
[2018-06-05 09:49] LABS: BUN/CREATININE RATIO 22; CREATININE SERUM 0.72 MG/DL (0.60-1.30); GFR ESTIMATED > 60
[2018-06-05 10:07] LABS: ABG BASE EXCESS -1.5 MMOL/L (-2.5-2.5); ABG OXYGEN SATURATION 93 % (94-100); ABG PCO2 33 MMHG (35-45); ABG PH 7.44 (7.37-7.43); ABG PO2 59 MMHG (79-93); ABG TCO2 23.4 MMOL/L (21.0-31.0); ALLENS TEST YES-POS
[2018-06-05 10:08] LABS: INSPIRED O2 ROOM AIR; PATIENT TEMP 96.1; VENTILATOR NO
--- NOTE | 2018-06-05 13:41 | Diagnostic Imaging Report ---
PROCEDURE: CT chest with contrast only. TECHNIQUE: Multiple contiguous axial images were obtained through the chest after administration of intravenous contrast. Auto Exposure Controls were utilized during the CT exam to meet ALARA standards for radiation dose reduction. INDICATION: Shortness of air. COMPARISON: Correlation is made with prior CT chest from 08/27/2016. FINDINGS: No axillary lymphadenopathy is identified. No definite hilar or mediastinal lymphadenopathy is seen. There are some calcified mediastinal and right hilar lymph nodes consistent with prior granulomatous exposure. No pericardial or pleural fluid is identified. Emphysematous changes predominantly in the upper lobes are again noted. Small subpleural nodule in right lower lobe, on image 22 appears stable at approximately 5 mm. 5 mm nodule in left lower lobe on image 21 also appears to be stable. Areas of chronic atelectasis in the right middle lobe and lingula appear stable. No new pulmonary or parenchymal abnormality is identified. Upper abdomen does show some small circumscribed low densities in the liver, too small to characterize but most likely cysts. Chronic upper thoracic compression fracture deformities are again seen. No new compression fractures identified. IMPRESSION: Stable bilateral lower lobe pulmonary nodules when compared with exam dating back to August 2016. No new abnormality is seen. There is chronic partial atelectasis in the right middle lobe and lingula, stable. Dictated by: Dictated on workstation # [id number]
== END ==
LOC: RAD 08:20
PROVIDERS: ATTEND Nurse Practitioner Family
DX: J43.9 Emphysema, unspecified (principal); J98.11 Atelectasis; J98.4 Other disorders of lung; G47.9 Sleep disorder, unspecified; F17.200 Nicotine dependence, unspecified, uncomplicated
CPT/HCPCS: 36415; 36600; 71260; 82565; 82805; 84520; 94060; 94726; 94729

== ENCOUNTER 2018-07-10 08:37 | Inpatient (IN) | payer MEDICARE, OTHER | END 2018-07-13 11:13 | LOC: 4TH 08:37 → SURG 08:38 → 4TH 07-12 15:39 | PROC: 0RG7071 Fusion of 2 to 7 Thoracic Vertebral Joints with Autologous Tissue Substitute, Posterior Approach, Posterior Column, Open Approach (ICD-10-PCS; principal; 2018-07-10 09:56) | PROC: 0RGA071 Fusion of Thoracolumbar Vertebral Joint with Autologous Tissue Substitute, Posterior Approach, Posterior Column, Open Approach (ICD-10-PCS; 2018-07-10 09:56) | PROC: 0SG1071 Fusion of 2 or more Lumbar Vertebral Joints with Autologous Tissue Substitute, Posterior Approach, Posterior Column, Open Approach (ICD-10-PCS; 2018-07-10 09:56) | PROC: 0SG3071 Fusion of Lumbosacral Joint with Autologous Tissue Substitute, Posterior Approach, Posterior Column, Open Approach (ICD-10-PCS; 2018-07-10 09:56) | PROC: 0QH104Z Insertion of Internal Fixation Device into Sacrum, Open Approach (ICD-10-PCS; 2018-07-10 09:56) | PROC: 0RP604Z Removal of Internal Fixation Device from Thoracic Vertebral Joint, Open Approach (ICD-10-PCS; 2018-07-10 09:56) | PROC: 0RPA04Z Removal of Internal Fixation Device from Thoracolumbar Vertebral Joint, Open Approach (ICD-10-PCS; 2018-07-10 09:56) | PROC: 0SP004Z Removal of Internal Fixation Device from Lumbar Vertebral Joint, Open Approach (ICD-10-PCS; 2018-07-10 09:56) | PROC: 0SP304Z Removal of Internal Fixation Device from Lumbosacral Joint, Open Approach (ICD-10-PCS; 2018-07-10 09:56) | DX: M96.0 Pseudarthrosis after fusion or arthrodesis (principal); M40.204 Unspecified kyphosis, thoracic region; T84.296A Other mechanical complication of internal fixation device of vertebrae, initial encounter; J43.9 Emphysema, unspecified; G47.9 Sleep disorder, unspecified; F17.210 Nicotine dependence, cigarettes, uncomplicated; I10 Essential (primary) hypertension; R91.1 Solitary pulmonary nodule; R63.4 Abnormal weight loss; E78.00 Pure hypercholesterolemia, unspecified; K21.9 Gastro-esophageal reflux disease without esophagitis; K59.09 Other constipation; M19.91 Primary osteoarthritis, unspecified site; F41.9 Anxiety disorder, unspecified; Z99.81 Dependence on supplemental oxygen ==

== ENCOUNTER 2018-07-13 09:34 | Inpatient (IN) | payer MEDICARE, OTHER ==
[~2018-07-13] VITALS: Ht 157.5 cm; Wt 63.3 kg
[~2018-07-13 09:34] MED LIST changes: +FLUT1BLS3 IH; -HOLD METFORMIN - RECEIVED CONTRAST 20 ML VIAL IV SCH; -IOHEXOL 350 MG/ML 100 ML (OMNIPAQUE 350) VIAL IV ONE; +OXYC1TAB87 PO; -RT-ALBUTEROL SULF 2.5 MG/3 ML PRE-MIX VIAL INH ONE; +VITA1CAP PO
--- NOTE | 2018-07-13 10:00 | NUR ---
Pt admitted to room 229-1, with an admitting diagnosis of S/P Spinal Surgery w hardware removal on 07/13/18 from 4th floor, via w/c, accompanied by PT. BRUNO CHU introduced to surroundings, call light, bed controls, phone, TV, temperature control, lights, meal times, smoking policy, visitor policy, side rail policy, bathrooms and showers. Patient Rights given to patient in the handbook. BRUNO CHU verbalizes understanding that [facility] is not responsible for the loss or damage to any personal effects or valuables that are kept in the patients posession during their hospitalization. The following Patient Care Plans were discussed with the pt: Discharge Planning, Impaired Mobility, Self Care Deficit, Potential for fall/injury, alteration in skin integrity, Potential for infection. BRUNO CHU verbalizes understanding of Interdisciplinary Patient Education. Patient and/or family were informed about the Rapid Response Team and its purpose. Patient received Patient Rights Booklet, which includes Privacy Act Statement and Data Collection Information Summary.
[2018-07-13 10:30] VITALS: BP 93/61
--- NOTE | 2018-07-13 10:49 | Physical Therapy Evaluation ---
PT Evaluation-General Medical Diagnosis Admission Date 07/10/18 Medical Diagnosis: spinal fusion Onset Date: July 10, 2018 Therapy Diagnosis Therapy Diagnosis: impaired mobility, strength, endurance Height/Weight Height (Feet): 5 Height (Inches): 1.00 Weight (Pounds): 112 Weight (Ounces): 2.0 Referral Physician: Hedy Galvan DO Reason for Referral: Evaluation/Treatment Medical History Pertinent Medical History: Arthritis, COPD, GERD, HTN, Smoking Reviewed History: Yes Social History Home: Single Level Current Living Status: Spouse Entry Into Home: Ramp Patient states her uses an electric wheelchair. Prior/Core FIM Prior Level of Function Therapy Code Descriptions/Definitions Functional [place] Measure: 0=Not Assessed/NA 4=Minimal Assistance 1=Total Assistance 5=Supervision or Setup 2=Maximal Assistance 6=Modified [place] 3=Moderate Assistance 7=Complete [place] Therapy Quality Codes: 6 Independent with activity with or without an assistive device 5 Patient requires set up or clean up by helper. Patient completes activity by themselves 4 Supervision or touching assist (CGA). [place] provide cues , steadying assist 3 The helper provides less than half the effort to complete the activity 2 The helper provides more than half the effort to complete the activity 1 Dependent. The helper does all the effort to complete an activity 7 Patient refused to complete or attempt activity 9 The patient did not perform the activity before the current illness or injury 88 Not attempted due to Medical conditions or safety concerns Functional Abilities and Goals: Independent: Patient completed the activities by him/herself, with or without an assistive device, with no assistance from a helper. Needed Some Help: Patient needed partial assistance from another person to co mplete activities. Dependent: A helper completed the activities for the patient. Unknown: Not Applicable: Bed Mobility: 6 Transfers (B,C,W/C) (FIM): 6 Gait: 6 Indoor Mobility (Ambulation): Independent Patient was using a 4 wheeled walker. PT Evaluation-Current Subjective Patient in recliner pre tx, agrees to PT, has 5/10 pain in her back. Pt/Family Goals to be independent at home Objective Patient Orientation: Person, Place, Situation Attachments: Oxygen, IV back brace ROM/Strength ROM Lower Extremities WNL Strenght Lower Extremities 4/5 gross bilateral lower extremities except for hip flexion which is 3/5 bilaterally Neuromuscular (Tone, Coordination, Reflexes) NT Sensory Hearing: Functional Sensation Right Lower Extremit: Intact Sensation Left Lower Extremity: Intact Transfers Therapy Code Descriptions/Definitions Functional [place] Measure: 0=Not Assessed/NA 4=Minimal Assistance 1=Total Assistance 5=Supervision or Setup 2=Maximal Assistance 6=Modified [place] 3=Moderate Assistance 7=Complete [place] Therapy Quality Codes: 6 Independent with activity with or without an assistive device 5 Patient requires set up or clean up by helper. Patient completes activity by themselves 4 Supervision or touching assist (CGA). [place] provide cues , steadying assist 3 The helper provides less than half the effort to complete the activity 2 The helper provides more than half the effort to complete the activity 1 Dependent. The helper does all the effort to complete an activity 7 Patient refused to complete or attempt activity 9 The patient did not perform the activity before the current illness or injury 88 Not attempted due to Medical conditions or safety concerns Transfers (B, C, W/C) (FIM): 3 Scootin Rollin Roll Left to Right (QC): 3 Supine to/from Sit: 4 Sit to/from Stand: 4 Sit to Lying (QC): 2 Lying to Sitting/Side of Bed(Q: 3 Sit to Stand (QC): 3 Chair/Olx-xo-Okyrm Xfer(QC): 3 Car Transfer (QC): 3 Patient performs bed mobility with min assist, supine to sit with min assist, sit to supine with mod assist, sit <-> stand with min assist, transfers with min assist, car transfer min assist. Patient needs cues for hand placement and proper positioning. She occasionally needs assist guiding the walker. Gait Does the Patient Walk?: Yes Mode of Locomotion: Walk Anticipated Mode of Locomotion: Walk Gait (FIM): 2 Walk 10 feet (QC): 4 Walk 50 ft with 2 Turns(QC): 4 Walking 10ft/uneven surface-QC: 3 Distance: 100'x3, 50' Gait Level of Assist: 4 Gait Persons Needed: 1 Gait Assistive Device: FWW Comments/Gait Description Patient can ambulate 100' with a rolling walker with CGA (including 50' with at least 2 turns of 90 degrees but needs min assist to ambulate 10' over an uneven surface). Patient ambulates slowly, gets SOB and needs cues for purse lip breathing. Needs frequent rest breaks. Wheelchair Training Does the Pt Use a Wheelchair?: No Stairs Stairs (FIM): 1 #of Steps: 1 Level of Assist: 4 1 Step (curb) (QC): 3 Assistive Device: Walker Patient can go up and down 1 step using a rolling walker with min assist. Patient needs cues for foot placement and safety. Balance Sitting Static: Good Sitting Dynamic: Good Standing Static: Fair Standing Dynamic: Fair Assessment/Needs Patient has impaired mobility, strength, endurance. She has to wear her back brace when out of bed. She gets fatigued and SOB easily and needs frequent rest breaks. Rehab Potential: Fair PT Short Term Goals Short Term Goals Time Frame: July 20, 2018 Transfers (B,C,W/C) (FIM): 4 Gait (FIM): 4 Gait Distance Comment: 150' Gait Level of Assist: 4 Gait Assistive Device: FWW PT Field Geologist Goals Field Geologist Goals PT Field Geologist Goals Time Frame: Aug 03, 2018 Transfers (B,C,W/C) (FIM): 5 Sit to Lying (QC): 4 Lying-Sitting on Side/Bed(QC): 4 Sit to Stand (QC): 4 Rollin Roll Left to Right (QC): 4 Chair/Qut-yj-Btydu Xfer(QC): 4 Car Transfer (QC): 4 Gait (FIM): 5 Distance: 200' Walk 10 feet (QC): 4 Walk 10ft-Uneven Surface(QC): 4 Walk 50ft with 2 Turns (QC): 4 Walk 150 ft (QC): 4 Gait Level of Assist: 5 Gait Assistive Device: FWW Stairs (FIM): 2 # of Steps: 4 1 Step (curb) (QC): 4 4 Steps (QC): 4 Stairs Level Of Assist: 4 PT Plan Problem List Problem List: Activity Tolerance, Functional Strength, Safety, Balance, Gait, Transfer, Bed Mobility, ROM Treatment/Plan Treatment Plan: Continue Plan of Care Treatment Plan: Bed Mobility, Education, Functional Activity French, Functional Strength, Group Therapy, Gait, Safety, Therapeutic Exercise, Transfers Treatment Duration: Aug 03, 2018 Frequency: At least 5 of 7 days/Wk (IRF) Estimated Hrs Per Day: 1.5 hours per day Patient and/or Family Agrees t: Yes Safety Risks/Education Patient Education: Gait Training, Transfer Techniques, Steps, Correct Positioning, Reviewed Don/Doff Brace, Safety Issues Teaching Recipient: Patient Teaching Methods: Demonstration, Discussion Response to Teaching: Reinforcement Needed Discharge Recommendations Plan Patient will perform bed mobility and transfer training, balance and endurance training, functional strengthening, stair training, gait training, and education to improve functional mobility and independence at home. Therapy D/C Recommendations: Home w/ Family Support Time/GCodes Time In: 48 Time Out: 1048 Total Billed Treatment Time: 60 Total Billed Treatment 1 visit EVM 30' GT 20' FA 10' NAVID FRIEND PT July 13, 2018 10:49
[2018-07-13] MEDS ORDERED: ONDANSETRON 4 MG/2 ML (SDV) Z0FRAN IV PRN (11:30)
[2018-07-13] MEDS ORDERED: PIPERACILLIN/TAZOBACTAM (BULK) 4.5 GM in NS (IVPB) 100 ML IV SCH (11:30)
[2018-07-13] MEDS ORDERED: ACETAMINOPHEN 325 MG TABLET PO PRN (11:30)
[2018-07-13] MEDS ORDERED: BISACODYL 10 MG SUPP (DULCOLAX) PR PRN (11:30)
[2018-07-13] MEDS ORDERED: CYCLOBENZAPRINE 10 MG (FLEXERIL) TAB PO PRN (11:30)
[2018-07-13] MEDS ORDERED: BISACODYL 5 MG (DULCOLAX) TABLET PO PRN (11:30)
[2018-07-13] MEDS ORDERED: ALPRAZolam 0.25 MG (XANAX) TAB PO PRN (11:30)
--- NOTE | 2018-07-13 11:41 | NUR ---
REVIEWED MED REC MEDICATION WERE REPORTED [place] [facility] [place] [facility] WAS ORDERED A NEW SCRIPT AT DISCHARGE TO REHAB, I REMOVED IT FROM THE MED REC AT THIS TIME FOR PROPER DISCHARGE TO HOME ORDERS.
[2018-07-13 12:14] VITALS: BP 103/64
[2018-07-13] MEDS: oxyCODONE/APAP 5/325MG (PERCOCET 5) TABLET PO PRN ×2 (12:39→20:21)
--- NOTE | 2018-07-13 12:46 | NUR ---
pain meds given as soon as profiled by pharmacy, lunch delivered, assisted pt by opening packages, setting tray up, pt eating cheeseburger, pt turned herself to back from Rt side.
--- NOTE | 2018-07-13 13:37 | Physical Therapy Daily Note ---
PT Daily Note-Current Subjective Patient in bed pre tx, agrees to PT, has 8-9/10 pain in back. Will be co- treating with OT due to pain and the need to coordinate UE and trunk balance and movement. Appearance Patient in bed post tx with nurse call, phone, tray, all needs met. Patient on right side with pillow support. Mental Status Patient Orientation: Person, Place, Situation Attachments: Oxygen, IV Transfers Therapy Code Descriptions/Definitions Functional [place] Measure: 0=Not Assessed/NA 4=Minimal Assistance 1=Total Assistance 5=Supervision or Setup 2=Maximal Assistance 6=Modified [place] 3=Moderate Assistance 7=Complete [place] Therapy Quality Codes: 6 Independent with activity with or without an assistive device 5 Patient requires set up or clean up by helper. Patient completes activity by themselves 4 Supervision or touching assist (CGA). [place] provide cues , steadying assist 3 The helper provides less than half the effort to complete the activity 2 The helper provides more than half the effort to complete the activity 1 Dependent. The helper does all the effort to complete an activity 7 Patient refused to complete or attempt activity 9 The patient did not perform the activity before the current illness or injury 88 Not attempted due to Medical conditions or safety concerns Transfers (B, C, W/C) (FIM): 4 Scootin Rollin Supine to/from Sit: 4 Patient practiced log roll when going from supine to sit and sit to supine. She needs min assist and careful cues every step of the way. She is able to perform this with min assist. Weight Bearing Right Lower Extremity: Right Full Weight Bearing Left Lower Extremity: Left Full Weight Bearing Exercises Seated Therapy Exercises: Ankle pumps, Long arc quads Seated Reps: 15 Treatments Bed mobility and transfers, rolling. Patient also performed some grooming with OT while sitting and UE ROM while PT assisted patient with trunk control and posture. She also practiced donning and doffing her back brace. Assessment Current Status: Fair Progress Improving supine <-> sit. PT Short Term Goals Short Term Goals Time Frame: July 20, 2018 Transfers (B,C,W/C) (FIM): 4 Gait (FIM): 4 Gait Distance Comment: 150' Gait Level of Assist: 4 Gait Assistive Device: FWW PT Detention Goals Low Vision Therapist Goals PT Low Vision Therapist Goals Time Frame: Aug 03, 2018 Transfers (B,C,W/C) (FIM): 5 Gait (FIM): 5 Distance: 200' Gait Level of Assist: 5 Gait Assistive Device: FWW Stairs (FIM): 2 # of Steps: 4 Stairs Level Of Assist: 4 PT Plan Problem List Problem List: Activity Tolerance, Functional Strength, Safety, Balance, Gait, Transfer, Bed Mobility, ROM Treatment/Plan Treatment Plan: Continue Plan of Care Treatment Plan: Bed Mobility, Education, Functional Activity French, Functional Strength, Group Therapy, Gait, Safety, Therapeutic Exercise, Transfers Treatment Duration: Aug 03, 2018 Frequency: At least 5 of 7 days/Wk (IRF) Estimated Hrs Per Day: 1.5 hours per day Patient and/or Family Agrees t: Yes Safety Risks/Education Patient Education: Transfer Techniques, Reviewed Precautions, Correct Positioning, Reviewed Don/Doff Brace, Safety Issues Teaching Recipient: Patient Teaching Methods: Demonstration, Discussion Response to Teaching: Reinforcement Needed Time/GCodes Time In: 1300 Time Out: 1330 Total Billed Treatment Time: 30 Total Billed Treatment 1 visit FA 30' PT and OT co-treated for the whole 30'. NAVID FRIEND PT July 13, 2018 13:36
--- NOTE | 2018-07-13 14:15 | Occupational Therapy Eval ---
OT Evaluation-General/PLF Medical Diagnosis Admission Date July 13, 2018 at 10:00 Medical Diagnosis: spinal fusion Onset Date: July 10, 2018 Therapy Diagnosis Therapy Diagnosis: Weakness, Decreased ADL skills Height/Weight Height (Feet): 5 Height (Inches): 1.00 Weight (Pounds): 112 Weight (Ounces): 2.0 Weight Bear Status Weight Bearing Restriction: Weight Bearing/Tolerated Back precautions. Pt. to wear back brace on when up. Referral Physician: Hedy Galvan DO Referral Reason: Activity Tolerance, Self Care, Evaluation/Treatment, Strengthening/ROM Medical History Pertinent Medical History: Arthritis, COPD, GERD, HTN, Smoking Additional Medical History 3 back surgeries Current History Pt. had surgery for spine. Has had two other surgeries previously on back. Reviewed History: Yes Social History Home: Single Level Current Living Status: Spouse Entry Into Home: Ramp Pt.'s spouse is in a power chair. Pt. reports that she, and her kids assist her spouse at home. ADL-Prior Level of Function Therapy Code Descriptions/Definitions Functional [place] Measure: 0=Not Assessed/NA 4=Minimal Assistance 1=Total Assistance 5=Supervision or Setup 2=Maximal Assistance 6=Modified [place] 3=Moderate Assistance 7=Complete [place] Therapy Quality Codes: 6 Independent with activity with or without an assistive device 5 Patient requires set up or clean up by helper. Patient completes activity by themselves 4 Supervision or touching assist (CGA). [place] provide cues , steadying assist 3 The helper provides less than half the effort to complete the activity 2 The helper provides more than half the effort to complete the activity 1 Dependent. The helper does all the effort to complete an activity 7 Patient refused to complete or attempt activity 9 The patient did not perform the activity before the current illness or injury 88 Not attempted due to Medical conditions or safety concerns Functional Abilities and Goals: Independent: Patient completed the activities by him/herself, with or without an assistive device, with no assistance from a helper. Needed Some Help: Patient needed partial assistance from another person to complete activities. Dependent: A helper completed the activities for the patient. Unknown: Not Applicable: ADL PLOF Comments Pt. states that she was independent with daily tasks. She uses a rolling walker but does not have any other walkers. Self Care: Independent Functional Cognition: Independent DME/Equipment: Bath Chair, Bedside Commode, Tub/Shower OT Current Status Subjective Pt. reports 10/10 pain in back. Nursing notified and working out pain medication. Pt. had medication 2 hours prior. Appearance Pt. in reclining chair. Pt. verbalizes that she is in a lot of pain, and is having a lot of difficulty. Mental Status/Objective Patient Orientation: Unable to Assess Attachments: IV, Oxygen Current Hand Dominance: Right Upper Extremity ROM Limited in bilateral shoulder due to pain and back surgery. Pt. is able to raise bilateral shoulders to approximately 60 degrees. ADL-Treatment Grooming (FIM): 2 (Pt. is encouraged to brush hair but is only able to swipe a couple of times. OT does this for her.) Bathing (FIM): 3 (Pt. is able to wash upper thighs but unable to wash feet. Pt. is able to wash alex area in stance, but OT goes over this for her due to thoroughness.) Shower/Bathe Self (QC): 3 Lower Body Dressing (FIM): 2 (Pt. able to doff socks with great effort, but unable to don them. OT does this for her.) Lower Body Dressing (QC): 2 On/Off Footwear (QC): 2 Toileting (FIM): 3 (Mod assist overall to doff brief and pull up, as well as cleanse self.) Toileting Hygiene (QC): 3 Transfers (B, C, W/C) (FIM): 4 (Min assist sit-stand and transfer to bed. Min assist sit-supine and bed mobility.) Toilet/Commode Transfer (FIM): 4 Toilet Transfer (QC): 4 Other Treatments Pt. reports severe pain. Requires max cues and encouragement to participate this a.m. Pt. does reluctantly agree to bathe in room. Declines showering. Pt. is having difficulty with movement due to pain. Pt. agrees to transfer to bed at end of session. All needs met. Education OT Patient Education: Correct positioning, Modified ADL techniques, Progress toward Goal/Update tx plan, Purpose of tx/functional activities, Reviewed precautions, Rehab process, Transfer techniques Teaching Recipient: Patient Teaching Methods: Demonstration, Discussion Response to Teaching: Verbalize Understanding, Return Demonstration OT Short Term Goals Short Term Goals Time Frame: July 20, 2018 Eating(FIM): 5 Grooming(FIM): 5 Bathing(FIM): 4 Upper Body Dressing(FIM): 4 Lower Body Dressing(FIM): 4 Toileting(FIM): 4 Transfers (B,C,W/C) (FIM): 4 Toilet/Commode Transfer(FIM): 4 Shower Transfer(FIM): 3 Additional Short Term Goals: 1-Demonstrate ADL Tasks, 2-Verbalize Understan ding, 3-ImproveStrength/French 1=Demonstrate adherence to instructed precautions during ADL tasks. 2=Patient will verbalize/demonstrate understanding of assistive devices/modifications for ADL. 3=Patient will improve strength/tolerance for activity to enable patient to perform ADL's. OT Halfway Goals Art Glass Setter Goals Time Frame: Aug 03, 2018 Eating (FIM): 6 Eating (QC): 6 Groomin Oral Hygiene (QC): 4 Bathing(FIM): 5 Shower/Bathe Self (QC): 4 Upper Body Dressing(FIM): 5 Upper Body Dressing (QC): 4 Lower Body Dressing(FIM): 5 Lower Body Dressing (QC): 4 On/Off Footwear (QC): 4 Toileting(FIM): 6 Toileting Hygiene (QC): 5 Transfers (B,C,W/C) (FIM): 6 Toilet/Commode Transfer(FIM): 6 Toilet/Commode Transfer (QC): 5 Shower Transfer(FIM): 5 Additional Goals: 1-Demonstrate ADL Tasks, 2-Verbalize Understanding, 3-ImproveStrength/French 1=Demonstrate adherence to instructed precautions during ADL tasks. 2=Patient will verbalize/demonstrate understanding of assistive devices/modifications for ADL. 3=Patient will improve strength/tolerance for activity to enable patient to perform ADL's. OT Education/Plan Problem List/Assessment Assessment: Decreased Activ Tolerance, Decreased UE Strength, Dependent Transfers, Impaired Bed Mobility, Impaired Funct Balance, Impaired I ADL's, Impaired Self-Care Skills, Restricted Funct UE ROM Discharge Recommendations Plan/Recommendations: Continue POC Therapy D/C Recommendations: Home w/ Family Support, Occupational Therapy Home Care, Scheduled Assistance Equpiment Recommendations-D/C: Hip Kit Treatment Plan/Plan of Care Treatment,Training & Education: Yes Patient would benefit from OT for education, treatment and training to promote independence in ADL's, mobility, safety and/or upper extremity function for ADL's. Plan of Care: ADL Retraining, Functional Mobility, Group Exercise/Act as Ind, UE Funct Exercise/Act Treatment Duration: Aug 03, 2018 Frequency: At least 5 of 7 days/Wk (IRF) Estimated Hrs Per Day: 1.5 hours per day Agreement: Yes Rehab Potential: Fair Time/GCodes Start Time: 10:55 Stop Time: 11:45 Total Time Billed (hr/min): 50 Billed Treatment Time 1, EVH x 20minutes, ADL x 30minutes LIANNA MARTINEZ OT July 13, 2018 14:15
--- NOTE | 2018-07-13 14:45 | Occupational Ther Daily Note ---
OT Current Status-Daily Note Subjective Pt. reports 8/10 pain. Has had pain medication and states that she is doing better, but is still hurting. Appearance Pt. in bed. More alert this date than yesterday. Mental Status/Objective Patient Orientation: Person Therapy Code Descriptions/Definitions Functional [place] Measure: 0=Not Assessed/NA 4=Minimal Assistance 1=Total Assistance 5=Supervision or Setup 2=Maximal Assistance 6=Modified [place] 3=Moderate Assistance 7=Complete [place] ADL-Treatment Therapy Code Descriptions/Definitions Functional [place] Measure: 0=Not Assessed/NA 4=Minimal Assistance 1=Total Assistance 5=Supervision or Setup 2=Maximal Assistance 6=Modified [place] 3=Moderate Assistance 7=Complete [place] Therapy Quality Codes: 6 Independent with activity with or without an assistive device 5 Patient requires set up or clean up by helper. Patient completes activity by themselves 4 Supervision or touching assist (CGA). [place] provide cues , steadying assist 3 The helper provides less than half the effort to complete the activity 2 The helper provides more than half the effort to complete the activity 1 Dependent. The helper does all the effort to complete an activity 7 Patient refused to complete or attempt activity 9 The patient did not perform the activity before the current illness or injury 88 Not attempted due to Medical conditions or safety concerns Other Treatment OT/PT co-treat due to pt's pain level, and limited ability to participate. Pt. has food tray, but is not very hungry. Transfers supine-sit with mod assist and max cues. While sitting on side of bed, pt. attempts to don brace with max cues and assist. Pt. states that she has a different brace at home, and that no one can bring it to her. This is a new brace. Pt. is able to brush hair while seated on side of bed, and does a better job this time. Works on UE strength and mobility with ROM exercises, and cues to keep back braced when sitting. OT addresses UE ROM while PT focuses on sitting balance. Pt. is encouraged to work on scapular retraction and breathing techniques. Pt. participates, but does decline ambulation at this time. Works on sit-supine and bed mobility. OT/PT assisted with positioning in bed. All needs met. Education OT Patient Education: Correct positioning, Exercise program, Modified ADL techniques, Progress toward Goal/Update tx plan, Purpose of tx/functional activities, Reviewed precautions, Rehab process, Transfer techniques Teaching Recipient: Patient Teaching Methods: Demonstration, Discussion Response to Teaching: Verbalize Understanding, Return Demonstration OT Short Term Goals Short Term Goals Time Frame: July 20, 2018 Eating(FIM): 5 Grooming(FIM): 5 Bathing(FIM): 4 Upper Body Dressing(FIM): 4 Lower Body Dressing(FIM): 4 Toileting(FIM): 4 Transfers (B,C,W/C) (FIM): 4 Toilet/Commode Transfer(FIM): 4 Shower Transfer(FIM): 3 Additional Short Term Goals: 1-Demonstrate ADL Tasks, 2-Verbalize Understand ing, 3-ImproveStrength/French 1=Demonstrate adherence to instructed precautions during ADL tasks. 2=Patient will verbalize/demonstrate understanding of assistive devices/modifications for ADL. 3=Patient will improve strength/tolerance for activity to enable patient to perform ADL's. OT Baccarat Dealer Goals Nursing Home Goals Time Frame: Aug 03, 2018 Eating (FIM): 6 Eating (QC): 6 Groomin Oral Hygiene (QC): 4 Bathing(FIM): 5 Shower/Bathe Self (QC): 4 Upper Body Dressing(FIM): 5 Upper Body Dressing (QC): 4 Lower Body Dressing(FIM): 5 Lower Body Dressing (QC): 4 On/Off Footwear (QC): 4 Toileting(FIM): 6 Toileting Hygiene (QC): 5 Transfers (B,C,W/C) (FIM): 6 Toilet/Commode Transfer(FIM): 6 Toilet/Commode Transfer (QC): 5 Shower Transfer(FIM): 5 Additional Goals: 1-Demonstrate ADL Tasks, 2-Verbalize Understanding, 3-ImproveStrength/French 1=Demonstrate adherence to instructed precautions during ADL tasks. 2=Patient will verbalize/demonstrate understanding of assistive devices/modifications for ADL. 3=Patient will improve strength/tolerance for activity to enable patient to perform ADL's. OT Education/Plan Problem List/Assessment Assessment: Decreased Activ Tolerance, Decreased UE Strength, Dependent Transfers, Impaired Bed Mobility, Impaired Funct Balance, Impaired I ADL's, Impaired Self-Care Skills, Restricted Funct UE ROM Discharge Recommendations Plan/Recommendations: Continue POC Therapy D/C Recommendations: Home w/ Family Support, Occupational Therapy Home Care, Scheduled Assistance Equpiment Recommendations-D/C: Hip Kit Treatment Plan/Plan of Care Treatment,Training & Education: Yes Patient would benefit from OT for education, treatment and training to promote independence in ADL's, mobility, safety and/or upper extremity function for ADL's. Plan of Care: ADL Retraining, Functional Mobility, Group Exercise/Act as Ind, UE Funct Exercise/Act Treatment Duration: Aug 03, 2018 Frequency: At least 5 of 7 days/Wk (IRF) Estimated Hrs Per Day: 1.5 hours per day Agreement: Yes Rehab Potential: Fair Time/GCodes Start Time: 13:00 Stop Time: 13:30 Total Time Billed (hr/min): 30 Billed Treatment Time 1, FA x 2 LIANNA MARTINEZ OT July 13, 2018 14:45
[2018-07-13] MEDS: RT-ALBUTEROL/IPRATROPIUM 3 ML (DUONEB) VIAL INH PRN ×2 (14:54→19:34)
--- NOTE | 2018-07-13 15:35 | ST Cognitive Linguistic Eval ---
Speech Evaluation-General Medical Diagnosis spinal fusion Onset Date: July 10, 2018 Therapy Diagnosis Therapy Diagnosis: Cognitive-communication Precautions Precautions/Isolations: Fall Prevention, Standard Precautions Referral Referring Physician: Dr. Galvan Medical History Pertinent Medical History: Arthritis, COPD, GERD, HTN, Smoking Reviewed History: Yes Social History Current Living Status: Spouse Speech PLF-Current Status Prior Level of Function The patient lived at home with her prior to spinal surgery. The patient was independent for most of her daily needs. Language Eval: Auditory Comprehends Simple Yes/No Ques: Functional Indent/Objects Multiple Eng: Functional Ident/Pics in Multiple Eng: Functional Follows 1-Step Commands: Functional Follows Complex Directions: Functional Follows General Conversations: Functional Language Eval: Verbal Language Completes Spontaneous Greeting: Functional Produces Auto, Serial Info: Functional Imitates Simple Words/Phrases: Functional Word Finding: Functional Requests Basic Needs: Functional States Basic Personal Info: Functional Expresses Complex Ideas: Functional Objective Cognitive Domain Attention: WNL Memory: WNL Problem Solving: Functional Executive Functions: WNL Visuospatial Skills: WNL Composite Severity Rating: WNL Clock Drawing Severity Rating: WNL Objective Formal/Standardized Tests [facility] Mental Status ([facility]) Results The patient scored a 28/30 which falls in the normal range. Oral Motor/Speech Production Within functional limits Impression The patient a pleasant 72 year old female who was admitted to the ARU s/p spinal fusion. The patient will receive medical monitoring and skilled OT and PT to [facility] in order to safely return home. The patient does not require skilled ST services at this time. Communication/Social Cognition Comprehension: 7 Expression: 7 Social Interaction: 7 Problem Solvin Memory: 7 Speech Patient Assess Expression of Ideas/Wants: Expression (4) Understanding Verbal Content: Understands (4) Brief Interview-Mental Status: Yes Repetition of Three Words: Three (3) Temporal Orientation: Month: Accurate within 5 days(2) Temporal Orientation: Day: Correct (1) Recall : Wear to say "Sock": Yes, no cue required (2) Recall : Color: Yes, after cueing (1) Recall : Bed: Yes, no cue required (2) Memory/Recall Ability: Current season, That he or she is in a hsp/hsp unit Speech-Plan Patient/Family Goals Patient/Family Goals: The patient plans on returning home with her post rehab. Treatment Plan Speech Therapy Treatment Plan: Discontinue ST The patient does not require skilled ST services at this time. Treatment Duration: July 13, 2018 Frequency: 1 time per week Estimated Hrs Per Day: .25 hour per day Rehab Potential: Fair Barriers to Learning: The patient has had 3 spinal surgeries Pt/Family Agrees to Plan: Yes Safety Risks/Education Teaching Recipient: Patient Teaching Methods: Discussion Response to Teaching: Verbalize Understanding Education Topics Provided: Safety within her room and utilization of the call light. Time Speech Therapy Time In: 15:00 Speech Therapy Time Out: 15:15 Total Billed Time: 15 Billed Treatment Time 1, SPSNDCOMP REYNOLD Jaquez July 13, 2018 15:34
[2018-07-13] MEDS: PIPERACILLIN/TAZOBACTAM (BULK) 4.5 GM in NS (IVPB) 100 ML IV SCH ×2 (16:31→23:33)
--- NOTE | 2018-07-13 17:30 | NUR ---
IV restarted w #20 x 1 attempt Rt A/C by CARISSA Block want ad supervisor. Addendum: 07/13/18 at 2134 by TWIN GUSMAN RN Saline lock that pt came down from 4th with in Rt forearm had become reddened, & leaking, was removed. Re-start attempts made by this RN x 2, & Beatriz Ralph RN x 2 were unsuccessful. Pig Machine Supervisor Mckayla restarted as per note.
--- NOTE | 2018-07-13 17:37 | NUR ---
Bernabe running per IV Rt AC
[2018-07-13 17:38] VITALS: BP 93/51
--- NOTE | 2018-07-13 17:42 | NUR ---
Bladder scan showed 10cc after pt attempted to void on BSC after transferring w assist of staff. Pt states, "I really haven't ate or drank enough today to do much." Notified Dr. Galvan, & of decreased B/P.
[2018-07-13 17:52] VITALS: BP 101/49
[2018-07-13 18:48] VITALS: BP 94/56
[2018-07-13 18:55] VITALS: BP 103/61
--- NOTE | 2018-07-13 19:39 | NUR ---
Dr. Hancock was in to see pt @ 1400 this afternoon, pt stated that he was pleased w her progress.
[2018-07-13] MEDS: SENNA W/DOCUSATE (SENOKOT S) TABLET PO SCH (20:21)
[2018-07-13] MEDS: POLYETHYLENE GLYCOL 17 GM (MIRALAX) PACK PO SCH (20:22)
--- NOTE | 2018-07-13 22:00 | NUR ---
Bladder scan showed 210 ml after pt attempted to void on BSC. Pt voided 50 ml.
--- NOTE | 2018-07-14 02:30 | NUR ---
Bladder scan showed 260 ml after pt attempted to void on BSC. Pt voided 50 ml.
[2018-07-14] MEDS: RT-ALBUTEROL/IPRATROPIUM 3 ML (DUONEB) VIAL INH PRN (02:46)
--- NOTE | 2018-07-14 05:00 | NUR ---
Hemovac drain located on patient's back was discontinued per Dr. Hancock order. Clear dressing and gauze removed, suture removed, and then hemovac tubing pulled without any resistance, tip intact, no drainage noted. Insertion site covered with gauze and secured with tape. Patient tolerated procedure very well, denied any pain or discomfort.
[2018-07-14] MEDS: MULTIVIT W/MINERALS TAB (THERAGRAN M) PO SCH (05:20)
[2018-07-14 05:24] LABS: BASOPHILS % (AUTO) 0 % (0-10); EOSINOPHILS % (AUTO) 1 % (0-10); HEMATOCRIT 24 % (35-52); HEMOGLOBIN 7.9 G/DL (11.5-16.0); LYMPHOCYTES # (AUTO) 1.8 X 10^3 (1.0-4.0); LYMPHOCYTES % (AUTO) 23 % (12-44); MEAN CORPUSCULAR HEMOGLOBIN 30 PG (25-34); MEAN CORPUSCULAR HGB CONC 34 G/DL (32-36); MEAN CORPUSCULAR VOLUME 91 FL (80-99); MEAN PLATELET VOLUME 9.3 FL (7.4-10.4); MONOCYTES # (AUTO) 1.5 X 10^3 (0.0-1.0); MONOCYTES % (AUTO) 19 % (0-12); NEUTROPHILS # (AUTO) 4.5 X 10^3 (1.8-7.8); NEUTROPHILS % (AUTO) 57 % (42-75); PLATELET COUNT 185 10^3/uL (130-400); RED CELL DISTRIBUTION WIDTH 13.3 % (10.0-14.5); WHITE BLOOD COUNT 7.9 10^3/uL (4.3-11.0)
[2018-07-14 05:44] VITALS: BP 104/60
[2018-07-14 05:50] LABS: ALANINE AMINOTRANSFERASE 17 U/L (0-55); ALBUMIN 2.9 GM/DL (3.2-4.5); ALKALINE PHOSPHATASE 54 U/L (40-136); BILIRUBIN,TOTAL 0.3 MG/DL (0.1-1.0); BUN/CREATININE RATIO 20; CALCIUM 8.1 MG/DL (8.5-10.1); CARBON DIOXIDE 24 MMOL/L (21-32); CHLORIDE 97 MMOL/L (98-107); CREATININE SERUM 0.65 MG/DL (0.60-1.30); GFR ESTIMATED > 60; GLUCOSE 125 MG/DL (70-105); POTASSIUM 2.8 MMOL/L (3.6-5.0); SODIUM 131 MMOL/L (135-145); TOTAL PROTEIN 5.4 GM/DL (6.4-8.2)
--- NOTE | 2018-07-14 06:00 | NUR ---
Bladder scan showed 455 ml after pt attempted to void on BSC. Pt voided 40 ml. New order to IN/OUT cath, consult Dr. Lane, get an UA.
[2018-07-14] MEDS: RT-ALBUTEROL/IPRATROPIUM 3 ML (DUONEB) VIAL INH SCH ×3 (06:45→15:29)
--- NOTE | 2018-07-14 07:48 | Pulmonary Progress Note ---
Sepsis Event Evaluation Height, Weight, BMI Height: 5'2.00" Weight: 131lbs. 8.0oz. 59.084109bk; 24.1 BMI Method: Exam Exam Vital Signs Date Time Temp Pulse Resp B/P (MAP) Pulse Ox O2 Delivery O2 Flow Rate FiO2 07/14/18 06:48 96 Nasal Cannula 3.50 07/14/18 05:44 97.4 76 20 104/60 (75) 94 Room Air 07/13/18 21:00 96 Nasal Cannula 3.00 07/13/18 19:35 74 96 32 07/13/18 19:34 96 Nasal Cannula 3.00 07/13/18 18:55 103/61 (75) 07/13/18 18:48 74 20 94/56 (69) 98 Nasal Cannula 3.00 07/13/18 17:52 68 20 101/49 (66) 98 Nasal Cannula 3.00 07/13/18 17:42 98.8 07/13/18 17:38 73 20 93/51 (65) 98 Nasal Cannula 3.00 07/13/18 14:55 95 Nasal Cannula 3.00 07/13/18 12:45 Nasal Cannula 3.00 07/13/18 12:14 84 20 103/64 (77) 98 Nasal Cannula 3.00 07/13/18 10:30 98.9 83 20 93/61 (72) 97 Room Air I & O 07/14/18 07:00 Intake Total 625 ml Output Total 210 ml Balance 415 ml Height & Weight Height: 5'2.00" Weight: 131lbs. 8.0oz. 59.339956sf; 24.1 BMI Method: Results Lab Laboratory Tests 07/14/18 05:09 Assessment/Plan Assessment/Plan s/p thoracolumbar fusion Leukocytosis r/o infection -Leal culture -Zosyn and await cultures Hyponatremia -Monitor Atelectasis r/o PNA -IS Anemia - post op -Monitor FELICIA LOPEZ DO July 14, 2018 07:48
--- NOTE | 2018-07-14 07:50 | NUR ---
I/O cath, sterile technique, 450 ml of yellow concentrated urine, UA obtained, patient tolerated procedure well.
[2018-07-14] MEDS: PIPERACILLIN/TAZOBACTAM (BULK) 4.5 GM in NS (IVPB) 100 ML IV SCH ×2 (07:55→17:29)
[2018-07-14] MEDS: CATHETER FLUSH 10 ML SYR IV PRN ×2 (07:56→10:52)
[2018-07-14 08:00] VITALS: BP 112/69
--- NOTE | 2018-07-14 08:00 | NUR ---
DR. LOPEZ HERE TO SEE PATIENT. COLOR VERY PALE. DR ANDRES AWARE OF ABNORMAL LABS TODAY AND SUPPLEMENTAL POTASSIUM AND IRON ORDERED. O2 ON AT 3.5 L. STATES IS SOB WITH EXERTION, BUT IS AT BASELINE. NO BM X [address] ANDRES NOTIFIED. BOWEL REGIMEN ORDERED.
--- NOTE | 2018-07-14 08:23 | PM&R H&P / Post Admit Assess ---
History of Present Illness HPI/Chief Complaint CC: Thoracic lumbar spine surgery HPI: This is a 72yoWF clinic patient of Dr Cancino in [place], [place] know to me from prior spine surgery admits w/h/o severe O2 dependent COPD who continues to smoke who presents to the IRF unit in need of intensive rehab in order to return home with her . Patient is doing ok today just having back pain and a cough. Patient was recently dx with pneumonia and placed on aggressive treatment by Dr Lubin whom his expertise is much appreciated and the patient appreciates his help. No BM for now 4 days post op and that is being addressed more aggressively today. PLOF was independent with ambulation and ADL's. I have reviewed her labs and we are in the midst of correction of her abnormal electrolytes with supplements. Nebs are ordered along with IV antibiotics and IV steroids. Iron with very low along with hemoglobin so will start Venofer. Potassium will be supplemented 20meq PO TID for 3 days Drain is now out. Urinary retention this morning so have consulted Dr Lane for retention. Source: patient Exam Limitations: no limitations Date Seen 07/14/18 Time Seen by a Provider: 08:30 Attending Physician Hedy Andres DO PCP Gareth Cancino MD Referring Physician Date of Admission July 13, 2018 at 10:00 Home Medications & Allergies Home Medications Reviewed patient Home Medication Reconciliation performed by pharmacy medication reconciliations senior health physics technician and/or nursing. Patients Allergies have been reviewed. Allergies Allergies Coded Allergies tramadol (Unverified Allergy, Mild, ITCHING/RASH, 07/04/18) HAS HAD MORPHINE WITH NO ISSUES PER PT hydrocodone (Verified Allergy, Unknown, 07/10/18) Past Mtiffvd-[place]-Eduzqc Hx Past Med/Social Hx: Reviewed Nursing Past Med/Soc Hx, Reviewed and Corrections made Patient Social History Marrital Status: Employed/Student: retired Alcohol Use: Denies Use Recreational Drug Use: No Smoking Status: Current Everyday Smoker Type Used: Cigarettes Physical Abuse Screen: No Sexual Abuse: No Recent Foreign Travel: No Contact w/other who traveled: No Recent Hopitalizations: Yes Recent Infectious Disease Expo: No Immunizations Up To Date Date of Pneumonia Vaccine: Dec 05, 2014 Date of Influenza Vaccine: Dec 07, 2017 Seasonal Allergies Seasonal Allergies: No Past Medical History Surgeries: Hysterectomy, Orthopedic Respiratory: Chronic Bronchitis, COPD, Emphysema, Pneumonia Cardiac: High Cholesterol, Hypertension Sexually Transmitted Disease: No HIV/AIDS: No Gastrointestinal: Gastroesophageal Reflux, Chronic Constipation Musculoskeletal: Arthritis, Chronic Back Pain, Fractures Loss of Vision: Bilateral Hearing Impairment: Denies Psychosocial: Anxiety History of Blood Disorders: No Adverse Reaction to Blood Diaz: No (N/A) Family History Cardiovascular disease G8 BROTHER Dementia G8 SISTER FH: brain cancer 19 FATHER Gastroenteritis G8 BROTHER Hypertension 19 MOTHER G8 BROTHER Myocardial infarction G8 BROTHER Parkinson's disease G8 SISTER Respiratory disorder G8 BROTHER (lung ca) Hypertension Review of Systems Constitutional: see HPI, dizziness, fever, malaise, weakness EENTM: no symptoms reported Respiratory: cough, dyspnea on exertion, short of breath, wheezing Cardiovascular: no symptoms reported Gastrointestinal: constipation Musculoskeletal: back pain Skin: no symptoms reported Psychiatric/Neurological: No Symptoms Reported All Other Systems Reviewed Negative Unless Noted: Yes Physical Exam Exam Vital Signs Vital Signs Date Time Temp Pulse Resp B/P (MAP) Pulse Ox O2 Delivery O2 Flow Rate FiO2 07/14/18 06:48 96 Nasal Cannula 3.50 07/14/18 05:44 97.4 76 20 104/60 (75) 07/13/18 19:35 32 Capillary Refill : General Appearance: WD/WN, Chronically ill, Cachetic, Mild Distress (due to pain), Thin HEENT: PERRL/EOMI, TMs Normal, Normal ENT Inspection, Pharynx Normal, Moist Mucous Membranes Neck: Full Range of Motion, Normal Inspection, Non Tender, Supple Respiratory: Chest Non Tender, No Accessory Muscle Use, No Respiratory Distress, Crackles, Decreased Breath Sounds, Wheezing Cardiovascular: Regular Rate, Rhythm, No Edema, No Gallop, No JVD, No Murmur Gastrointestinal: Normal Bowel Sounds, No Organomegaly, No Pulsatile Mass, Non Tender, Soft Back: Decreased Range of Motion Extremity: Normal Capillary Refill, Normal Inspection, Normal Range of Motion, Non Tender, No Calf Tenderness, No Pedal Edema Neurologic/Psychiatric: Alert, Oriented x3, No Motor/Sensory Deficits, Normal Mood/Affect Skin: Normal Color, Warm/Dry Lymphatic: No Adenopathy Results Results/Procedures Labs Laboratory Tests 07/14/18 05:09 Patient resulted labs reviewed. Assessment/Plan Assessment and Plan Assess & Plan/Chief Complaint Assessment: Extensive spinal surgery POD # 4 uncomplicated AECOPD Pneumonia Anemia Hyponatremia Hypokalemia Smoker Frail status Constipation Back pain Plan: Pain control BM regimen Potassium Abx Steroids Venofer (1) JUNCTIONAL KYPHOSIS (2) Urinary retention (3) RESPIRATORY FAILURE, UNSP, UNSP W HYPOXIA OR HYPERCAPNIA (4) Lumbar spinal stenosis (5) Hypokalemia (6) COPD (chronic obstructive pulmonary disease) (7) Anemia (8) Atelectasis (9) Hyperlipidemia (10) Hyponatremia (11) Leukocytosis (12) GERD (gastroesophageal reflux disease) (13) Hypertension (14) Oxygen dependent (15) Frailty (16) Pneumonia (17) Smoker Post Admission Physician Asses Date seen by provider: July 14, 2018 Time seen by provider: 08:30 Admisison Dx: (1) JUNCTIONAL KYPHOSIS Status: Acute (2) COPD (chronic obstructive pulmonary disease) Status: Chronic (3) Hypokalemia Status: Acute (4) Urinary retention (5) Anemia Status: Chronic (6) Atelectasis Status: Acute (7) Hyperlipidemia Status: Chronic (8) Hyponatremia Status: Acute (9) Leukocytosis Status: Acute (10) GERD (gastroesophageal reflux disease) Status: Chronic (11) Hypertension Status: Chronic (12) Pneumonia Status: Acute (13) Lumbar spinal stenosis Status: Chronic (14) Oxygen dependent Status: Chronic (15) Frailty Status: Chronic (16) RESPIRATORY FAILURE, UNSP, UNSP W HYPOXIA OR HYPERCAPNIA (17) Smoker Status: Chronic The preadmission screen agrees with the post admission assessment that the patient is a good candidate for inpatient rehabilitation. The patient will have a comprehensive program of inpatient rehabilitation with a goal of maximizing level of functional independence prior to discharge home with family. The patient will have PT/OT ninety minutes per day, each discipline, five days a week for gait, strengthening, conditioning, balance, ADLs, any patient/family/caregiver training as necessary. Speech therapy to do cognitive assessment and treat as indicated. Rehabilitation nursing to assist with bowel, bladder, skin, wound care, medication administration, pain management. Fabric Separator Operator to assist with discharge planning, community reentry. SCD's for DVT prophylaxis. She appears to be well motivated to participate in three hours of therapy a day. She should be able to tolerate three hours of therapy a day from a medical standpoint. She should benefit from the three hours of therapy a day. She has a reasonable discharge plan, reasonable discharge rehabilitation goals and a supportive family. She has various comorbidities that need to be closely monitored with medications and treatments adjusted on a daily basis as needed. These include: see list Barriers to discharge for this patient who had been independent prior to this are for her to be modified independent to supervision for ADLs and mobility skills prior to discharge home with family, so as to lessen the burden of the caregivers. Risks for this patient include: 1. Fall 2. Fracture 3. DVT 4. Pulmonary embolism 5. Wound infection 6. Skin breakdown 7. Contractures 8. Poorly controlled pain 9. Urinary retention 10. UTI 11. Respiratory infection 12. Aspiration Estimated Length of Stay: 10 days Prognosis: Rehab prognosis appears good for goal of discharge home with family modified independent to supervision for ADLs and mobility skills. HEDY ANDRES DO July 14, 2018 08:23
[2018-07-14 08:38] LABS: MAGNESIUM 2.3 MG/DL (1.8-2.4); PHOSPHORUS 2.9 MG/DL (2.3-4.7)
--- NOTE | 2018-07-14 08:51 | NUR ---
BOOK CUTTER met with patient to complete initial assessment, patient known to BOOK CUTTER as she previously completed ARU stay in Oct 2017 following lumbar revision by Dr. Hancock. Patient was alert and oriented x4 and agreeable to assessment. Patient reports pain this am and did not sleep well. Patient resides with spouse, Bossman in a multi level home in [place], but is able to temporary use the main level. The home has a ramp at the entrance. Patient admitted to ARU from internally with debility following junctional kyphosis. Prior to current hospitalization, patient has had several previous spine surgeries by Dr. Hancock; however, she reports independence with activities when utilizing a 4wheeled walker. She also utilizes 4L of O2 continuously. Due to her husbands health issues, they possess a bedside commode, shower chair and wheelchair. Due to husbands health, he is unable to physically assist with needs. Patient identifies spouse, Bossman as primary contact ([phone]), son, Ibrahima ([phone]) and daughter in law, Rose ([phone]) as secondary contacts; however, Ibrahima also suffers from health concerns. Verified PCP as Dr. Cancino. Patient has [facility] and [facility] for insurance and prescription coverage and utilizes express scripts via mail or [facility] for local pharmacy needs. BOOK CUTTER reviewed typical rehab length of stay and weekly team conferences with patient, she expressed no concerns. BOOK CUTTER will follow for appropriate discharge needs.
[2018-07-14] MEDS: meTOprolol SUCCINATE 100 MG (TOPROL XL) TAB PO SCH (09:05)
[2018-07-14] MEDS: PANTOPRAZOLE 40 MG (PROTONIX) TAB PO SCH (09:05)
[2018-07-14] MEDS: lisINopril 20 MG (PRINIVIL) TABLET PO SCH (09:06)
[2018-07-14] MEDS: FAMOTIDINE 20 MG (PEPCID) TABLET PO SCH (09:06)
[2018-07-14] MEDS: SENNA W/DOCUSATE (SENOKOT S) TABLET PO SCH ×2 (09:11→21:24)
[2018-07-14] MEDS ORDERED: KCL 20 MEQ TAB (K-DUR) PO SCH (09:15)
[2018-07-14] MEDS: oxyCODONE/APAP 5/325MG (PERCOCET 5) TABLET PO PRN ×2 (09:25→14:24)
--- NOTE | 2018-07-14 09:33 | Individualized Plan of Care ---
Individualized Plan of Care Rehab Nursing IPOC Order Admission Date July 13, 2018 at 10:00 Current Orders Orders Admission Arrival Bed Request (07/13/18 10:23) Admission Order(Inpt,Obs,Sdc) (07/13/18 11:03) General Farmworker-Inpt Rehab Con (07/13/18 11:03) Rehab Nursing Orders-Ipoc (07/13/18 11:03) Physical Therapy Rehab Orders (07/13/18 11:03) Occupational Therapy Rehab Ord (07/13/18 11:03) Speech Therapy Rehab Orders (07/13/18 11:03) General/Regular (07/13/18 Dinner) Weekly Weight (Lbs) WEEK (07/13/18 11:03) Rehab-Intensity Of Therapy (07/13/18 11:03) Code/Resuscitation (07/13/18 11:03) Initiate Admission Nursing Pro .admission (07/13/18 11:03) Cbc With Automated Diff (07/14/18 06:00) Comprehensive Metabolic Panel (07/14/18 06:00) Drain: Discontinue (Order) (07/13/18 11:16) Oxygen-Administer 07,19 (07/13/18 11:16) Sequential Compression Device 08,20 (07/13/18 11:16) Up With Assistance As Tolerate (07/13/18 11:16) Vital Signs: Special (Order) (07/13/18 11:16) Alprazolam Tablet (Xanax Tablet) (07/13/18 11:30) Albuterol/Ipra Inhalation Soln (Duoneb I (07/13/18 11:30) Bisacodyl Tablet (Dulcolax Tablet) (07/13/18 11:30) Bisacodyl Suppository (Dulcolax Supposit (07/13/18 11:30) Famotidine Tablet (Pepcid Tablet) (07/14/18 09:00) Cyclobenzaprine Tablet (Flexeril Tablet) (07/13/18 11:30) Therapeutic Multivitamin Tab (Vitamins, (07/14/18 07:00) Pantoprazole Tablet (Protonix Tablet) (07/14/18 09:00) Oxycodone/Apap 5/325mg Tablet (Percocet (07/13/18 11:30) Polyethylene Glycol Powder Pkt (Miralax (07/13/18 21:00) Senna S Tablet (Senokot S Tablet) (07/13/18 21:00) Sodium Chloride Flush (Catheter Flush Sy (07/13/18 11:30) Acetaminophen Tablet/Caplet (Tylenol T (07/13/18 11:30) Piperacillin/Tazobactam (Bulk) (Zosyn In (07/13/18 11:30) Ondansetron Injection (Zofran Injectio (07/13/18 11:30) Lisinopril Tablet (Zestril Tablet) (07/14/18 09:00) Metoprolol Succinate (Xl) Tab (Toprol Xl (07/14/18 09:00) Consult Pulmonology (07/13/18 11:16) Incentive Spirometry Initial (07/13/18 11:16) Mat Initiate Protocol (07/13/18 11:16) Oxygen Delivery Set Up (07/13/18 11:16) Svn Small Volume Nebulizer (07/13/18 11:16) Incentive Spirometry (Nursing) Q2H (07/13/18 11:16) Piperacillin/Tazobactam (Bulk) (Zosyn In (07/13/18 16:00) General/Regular (07/13/18 Lunch) Ambulate 08,12,20 (07/13/18 13:46) Dvt/Vte Risk - Notifiy Physici 08 (07/13/18 13:46) Patient Visit (07/13/18 ) Pt Eval Moderate Complexity (07/13/18 ) Gait Training, Ea 15 Min (07/13/18 ) Functional Activities, Ea 15 (07/13/18 ) Patient Visit (07/13/18 ) Functional Activities, Ea 15 (07/13/18 ) Patient Visit (07/13/18 ) Speech Sound Lang Comp (07/13/18 ) Albuterol/Ipra Inhalation Soln (Duoneb I (07/14/18 07:00) Drain: Discontinue (Order) (07/13/18 19:37) Consult Physician (07/14/18 06:59) Straight Cath (Urinary) (07/14/18 06:59) Ua Culture If Indicated (07/14/18 07:30) Magnesium (07/14/18 08:00) Phosphorus (07/14/18 08:00) Iron Sucrose Injection (Venofer Injectio (07/14/18 09:00) Potassium Chloride (Tablet) (K Dur Table (07/14/18 09:15) Polyethylene Glycol Powder Pkt (Miralax (07/14/18 09:15) Potassium Chloride (Tablet) (K Dur Table (07/14/18 09:30) Methylprednisolone Sod Succ (Solu-Medrol (07/14/18 09:45) Cbc With Automated Diff (07/15/18 06:00) Cbc With Automated Diff (07/16/18 06:00) Cbc With Automated Diff (07/17/18 06:00) Cbc With Automated Diff (07/18/18 06:00) Comprehensive Metabolic Panel (07/15/18 06:00) Comprehensive Metabolic Panel (07/16/18 06:00) Comprehensive Metabolic Panel (07/17/18 06:00) Comprehensive Metabolic Panel (07/18/18 06:00) Methylprednisolone Sod Succ (Solu-Medrol (07/14/18 12:00) Tamsulosin Capsule (Flomax Capsule) (07/14/18 18:00) Sodium Chloride Flush (Catheter Flush Sy (07/14/18 14:00) Bethanechol Tablet (Urecholine Tablet) (07/14/18 11:00) Bladder Scan-Straight Cath-Pos (07/14/18 09:40) Dressing Order & Int (Surg/Med DAILY (07/14/18 12:38) Patient Visit (07/14/18 ) Exercise Therap, Ea 15 Min (07/14/18 ) Functional Activities, Ea 15 (07/14/18 ) Patient Visit (07/14/18 ) Functional Activities, Ea 15 (07/14/18 ) Rehab Nursing Orders: Ongoing Assess. of Cognitive Status, Ongoing Assess. of Function Status, Bladder Scan, Bladder Training, Bowel Management, Bowel Training, Disease Management & Educaiton, DVT Prophylaxis, Fall Prevention, Fluid/Electrolyte/Nutrition Mgmt, Infection Prevention, Medication Management & Education, Management of Risks & Complications, Management of Skin Intergrity, Nutrition Management, Pain Management, Patient/Family Support, Safety Management Intensity of Therapy to be met Patient to be seen: Min.3h per day/5 of 7d PT IPOC Problem List: Activity Tolerance, Functional Strength, Safety, Balance, Gait, Transfer, Bed Mobility, ROM Treatment Plan: Continue Plan of Care Bed Mobility, Education, Functional Activity French, Functional Strength, Group Therapy, Gait, Safety, Therapeutic Exercise, Transfers Treatment Duration: Aug 03, 2018 Frequency: At least 5 of 7 days/Wk (IRF) Estimated Hrs Per Day: 1.5 hours per day OT IPOC Problems: Decreased Activ Tolerance, Decreased UE Strength, Dependent Transfers, Impaired Bed Mobility, Impaired Funct Balance, Impaired I ADL's, Impaired Self-Care Skills, Restricted Funct UE ROM OT Treatment, Training and Edu: Yes Plan of Care: ADL Retraining, Functional Mobility, Group Exercise/Act as Ind, UE Funct Exercise/Act Treatment Duration: Aug 03, 2018 Frequency: At least 5 of 7 days/Wk (IRF) Estimated Hrs Per Day: 1.[address] IPOC Speech Therapy Treatment Plan: Discontinue ST Treatment Duration: July 13, 2018 Frequency: 1 time per week Estimated Hrs Per Day: .25 hour per day General Farmworker/Case Mgmt General Farmworker/Case Managemen: Discharge Planning Dietitian/Coroner Technician Dietitian/Coroner Technician to monitor nutritional status and make changes and/or recommendations as needed and work with speech pathology on dietary upgrades as the occur. Physician IPOC Medical Issues being managed closely and that require the 24 hour availability of a physician: Pneumonia with AECOPD and O2 dependent patient now with urinary retention will require close monitoring from physicians along with consultants Medical Issues: Bowel/Bladder Function, DVT Prophylaxis, Falls Precautions, Fluid/Electrolyte/Nutrition Balance, Infection Protection, Pain Management Brief Synthesis of Preadmission Screen, Post-Admission Evaluation, and Therapy Evaluations: PT will focus on ambulation with severe post op back pain OT will try to improve independent ADL's in order to return home Medical Prognosis: Good Anticipated Length of Stay: 10 days MAGDALENE ANDRES DO July 14, 2018 09:33
[2018-07-14 09:37] LABS: BILIRUBIN,URINE NEGATIVE (NEGATIVE); CLARITY,URINE CLEAR; COLOR,URINE YELLOW; GLUCOSE, URINE (UA) NEGATIVE (NEGATIVE); KETONES,URINE 1+ (NEGATIVE); LEUKOCYTE ESTERASE ,URINE 1+ (NEGATIVE); NITRITE,URINE NEGATIVE (NEGATIVE); PH,URINE 5 (5-9); PROTEIN,URINE 2+ (NEGATIVE); UROBILINOGEN,URINE NORMAL (NORMAL)
--- NOTE | 2018-07-14 09:39 | Physical Therapy Daily Note ---
PT Daily Note-Current Subjective Pt agreeable to PT session but reports she is in so much pain and "not sure how much I can do". Pain Numeric Pain Scale: 5-Moderate Pain Pain Description: Dull Comment: across both sides lower back Appearance Pt in bed with HOB elevated, awake and alert, nursing present in room. Pt requesting pain meds and was administered during tx session At end of session, pt sitting up in recliner with LE's elevated, call light, phone and bedside table within reach. Mental Status Patient Orientation: Person, Place, Time, Eyes Open, Situation Attachments: Oxygen (3.5 L/NC), IV back brace Transfers Therapy Code Descriptions/Definitions Functional [place] Measure: 0=Not Assessed/NA 4=Minimal Assistance 1=Total Assistance 5=Supervision or Setup 2=Maximal Assistance 6=Modified [place] 3=Moderate Assistance 7=Complete [place] Therapy Quality Codes: 6 Independent with activity with or without an assistive device 5 Patient requires set up or clean up by helper. Patient completes activity by themselves 4 Supervision or touching assist (CGA). [place] provide cues , steadying assist 3 The helper provides less than half the effort to complete the activity 2 The helper provides more than half the effort to complete the activity 1 Dependent. The helper does all the effort to complete an activity 7 Patient refused to complete or attempt activity 9 The patient did not perform the activity before the current illness or injury 88 Not attempted due to Medical conditions or safety concerns Transfers (B, C, W/C) (FIM): 4 Scootin Rollin Supine to/from Sit: 4 (sup to sit with HOB elevated, use of bedrail, log roll, still requiring min assist at shoulder to completely sit at EOB. Sitting balance good, c/o lightheadedness sitting EOB after coughing) Sit to/from Stand: 4 (CGA due to pt c/o lightheadedness not subsiding. no LOB or unsteadiness upon standing) Bed to/from Chair: 4 (CGA provided due to increased c/o pain and cont'd lightheadedness, no LOB or unsteadiness, very slow shuffing steps) Weight Bearing Right Lower Extremity: Right Full Weight Bearing Left Lower Extremity: Left Full Weight Bearing Gait Training Gait (FIM): 1 Distance: 10 Gait Level of Assist: 4 (CGA provided due to c/o increased pain and lightheadedness) Gait Persons Needed: 1 Gait Assistive Device: FWW slow shuffling, antalgic, c/o increased pain and lightheadedness Exercises Supine Ex: Ankle pumps (and toe curls), Lower trunk rotation (small occiliat ions), Heel Slides, Straight leg raise (AAROM required with LLE), Hip abd/add Supine Reps: 20 Treatments bed mobility, transfers, safety, gait, functional mobility, education, don/doff back brace, strength, ROM Assessment c/o increased pain and lightheadedness jesusita after coughing, PT Short Term Goals Short Term Goals Time Frame: July 20, 2018 Transfers (B,C,W/C) (FIM): 4 Gait (FIM): 4 Gait Distance Comment: 150' Gait Level of Assist: 4 Gait Assistive Device: FWW PT Trip Motor Operator Goals Skilled Nursing Goals PT Trip Motor Operator Goals Time Frame: Aug 03, 2018 Transfers (B,C,W/C) (FIM): 5 Sit to Lying (QC): 4 Lying-Sitting on Side/Bed(QC): 4 Sit to Stand (QC): 4 Rollin Roll Left to Right (QC): 4 Chair/[id number] Xfer(QC): 4 Car Transfer (QC): 4 Gait (FIM): 5 Distance: 200' Walk 10 feet (QC): 4 Walk 10ft-Uneven Surface(QC): 4 Walk 50ft with 2 Turns (QC): 4 Walk 150 ft (QC): 4 Gait Level of Assist: 5 Gait Assistive Device: FWW Stairs (FIM): 2 # of Steps: 4 1 Step (curb) (QC): 4 4 Steps (QC): 4 Stairs Level Of Assist: 4 PT Plan Treatment/Plan Treatment Plan: Continue Plan of Care Treatment Plan: Bed Mobility, Education, Functional Activity French, Functional Strength, Group Therapy, Gait, Safety, Therapeutic Exercise, Transfers Treatment Duration: Aug 03, 2018 Frequency: At least 5 of 7 days/Wk (IRF) Estimated Hrs Per Day: 1.5 hours per day Patient and/or Family Agrees t: Yes Safety Risks/Education Patient Education: Gait Training, Transfer Techniques, Reviewed Precautions, Reviewed Don/Doff Brace, Safety Issues Teaching Recipient: Patient Teaching Methods: Demonstration, Discussion Response to Teaching: Verbalize Understanding, Return Demonstration, Reinforcement Needed Time/GCodes Time In: 915 Time Out: 1000 Total Billed Treatment Time: 45 Total Billed Treatment 1 visit, FA x2 units, EX x 1 unit BRANDIN MANTILLA POWER DIGGER OPERATOR July 14, 2018 09:39
[2018-07-14 09:44] LABS: BACTERIA,URINE TRACE /HPF; SQUAMOUS EPITHELIAL CELL,UR 0-2 /HPF; WBC,URINE RARE /HPF
[2018-07-14] MEDS: methylPREDNISolone 40 MG/ML (Solu-MEDROL) VIAL IV SCH ×3 (10:51→17:29)
[2018-07-14] MEDS: KCL 20 MEQ TAB (K-DUR) PO SCH ×3 (10:51→17:29)
[2018-07-14] MEDS: IRON SUCROSE 200 MG/10 ML (VENOFER) VIAL IV SCH (10:52)
[2018-07-14] MEDS: POLYETHYLENE GLYCOL 17 GM (MIRALAX) PACK PO SCH ×4 (10:53→22:16)
[2018-07-14] MEDS: BETHANECHOL 10 MG (URECHOLINE) TAB PO SCH ×3 (10:55→21:23)
--- NOTE | 2018-07-14 11:00 | NUR ---
DR. MACHUCA HERE TO SEE PATIENT AND UPDATED ON CONDITION. WILL START ON FLOMAX AND URECHOLINE. DR. MACHUCA INFORMED OF SOB AND WHEEZING AND TO MONITOR FOR WORSENING SOB AND WHEEZING WHILE ON URECHOLINE.
--- NOTE | 2018-07-14 11:07 | Occupational Ther Daily Note ---
OT Current Status-Daily Note Subjective Pt alert, sitting in recliner. Pt c/o pain though does not rate. Pt agrees to therapy. Mental Status/Objective Patient Orientation: Person, Place, Time, Situation Therapy Code Descriptions/Definitions Functional [place] Measure: 0=Not Assessed/NA 4=Minimal Assistance 1=Total Assistance 5=Supervision or Setup 2=Maximal Assistance 6=Modified [place] 3=Moderate Assistance 7=Complete [place] ADL-Treatment Pt has increased pain and decreased activity tolerance which hinders participation in therapies and takes increased time to complete tasks. Pt agrees to sponge bath and changing hospital gown, declines regular clothing. After set up, pt able to complete upper body bathing and assists with donning/doffing hospital gown. Pt stated that she had toileted earlier in AM and was cleaned up thoroughly so didn't need to change briefs or bath that area. Pt then ambulated to bed with CGA and verbal cues for IV and oxygen tubing. Min A for bed mobility. Therapy Code Descriptions/Definitions Functional [place] Measure: 0=Not Assessed/NA 4=Minimal Assistance 1=Total Assistance 5=Supervision or Setup 2=Maximal Assistance 6=Modified [place] 3=Moderate Assistance 7=Complete [place] Therapy Quality Codes: 6 Independent with activity with or without an assistive device 5 Patient requires set up or clean up by helper. Patient completes activity by themselves 4 Supervision or touching assist (CGA). [place] provide cues , steadying assist 3 The helper provides less than half the effort to complete the activity 2 The helper provides more than half the effort to complete the activity 1 Dependent. The helper does all the effort to complete an activity 7 Patient refused to complete or attempt activity 9 The patient did not perform the activity before the current illness or injury 88 Not attempted due to Medical conditions or safety concerns Bathing (FIM): 2 (Will need lower body AE.) Bathing Location: L Arm, R Arm, Chest, Abdomen Shower/Bathe Self (QC): 2 Other Treatment Pt given light resistance theraband for exercises in room. Attached to bed rails to complete bed exercises. Pt demonstrated understanding of exercises and tolerated 10 reps of each. After therapy, pt lying in bed with call light/phone in reach. All needs met in room. OT Short Term Goals Short Term Goals Time Frame: July 20, 2018 Eating(FIM): 5 Grooming(FIM): 5 Bathing(FIM): 4 Upper Body Dressing(FIM): 4 Lower Body Dressing(FIM): 4 Toileting(FIM): 4 Transfers (B,C,W/C) (FIM): 4 Toilet/Commode Transfer(FIM): 4 Shower Transfer(FIM): 3 Additional Short Term Goals: 1-Demonstrate ADL Tasks, 2-Verbalize Understanding, 3-ImproveStrength/French 1=Demonstrate adherence to instructed precautions during ADL tasks. 2=Patient will verbalize/demonstrate understanding of assistive devices/modifications for ADL. 3=Patient will improve strength/tolerance for activity to enable patient to perform ADL's. OT Public Speaking Instructor Goals Public Speaking Instructor Goals Time Frame: Aug 03, 2018 Eating (FIM): 6 Eating (QC): 6 Groomin Oral Hygiene (QC): 4 Bathing(FIM): 5 Shower/Bathe Self (QC): 4 Upper Body Dressing(FIM): 5 Upper Body Dressing (QC): 4 Lower Body Dressing(FIM): 5 Lower Body Dressing (QC): 4 On/Off Footwear (QC): 4 Toileting(FIM): 6 Toileting Hygiene (QC): 5 Transfers (B,C,W/C) (FIM): 6 Toilet/Commode Transfer(FIM): 6 Toilet/Commode Transfer (QC): 5 Shower Transfer(FIM): 5 Comprehension(FIM): 6 Expression (FIM): 6 Social Interaction(FIM): 6 Problem Solving(FIM): 6 Memory(FIM): 6 Additional Goals: 1-Demonstrate ADL Tasks, 2-Verbalize Understanding, 3- ImproveStrength/French 1=Demonstrate adherence to instructed precautions during ADL tasks. 2=Patient will verbalize/demonstrate understanding of assistive devices/modifications for ADL. 3=Patient will improve strength/tolerance for activity to enable patient to perform ADL's. OT Education/Plan Problem List/Assessment Assessment: Decreased Activ Tolerance, Decreased UE Strength, Impaired Self- Care Skills Discharge Recommendations Plan/Recommendations: Continue POC Treatment Plan/Plan of Care Patient would benefit from OT for education, treatment and training to promote independence in ADL's, mobility, safety and/or upper extremity function for ADL's. Plan of Care: ADL Retraining, Functional Mobility, Group Exercise/Act as Ind, UE Funct Exercise/Act Treatment Duration: Aug 03, 2018 Frequency: At least 5 of 7 days/Wk (IRF) Estimated Hrs Per Day: 1.5 hours per day Agreement: Yes Rehab Potential: Fair Time/GCodes Start Time: 10:00 Stop Time: 11:00 Total Time Billed (hr/min): 60 Billed Treatment Time 1 visit-ADL 3 (45 min) EX 1 (15 min) MARICEL HERBERT July 14, 2018 11:07
[2018-07-14] MEDS ORDERED: methylPREDNISolone 40 MG/ML (Solu-MEDROL) VIAL IV SCH (12:00)
--- NOTE | 2018-07-14 12:00 | NUR ---
BACK INCISION DRESSING HAS NOT BEEN CHANGED SINCE SURGERY ON 07-10. ORDER RECEIVED TO CHANGE DRESSING DAILY. PATIENT EATING VERY POORLY - STATES NO APPETITE.
--- NOTE | 2018-07-14 13:44 | Progress Note (SOAP) ---
Subjective Date Seen by a Provider: July 13, 2018 Time Seen by a Provider: 13:00 Subjective/Events-last exam DIONNE. Doing well. Has no complaints. Drain still in place. Denies radicular pain. Objective Exam Vital Signs Date Time Temp Pulse Resp B/P (MAP) Pulse Ox O2 Delivery O2 Flow Rate FiO2 07/14/18 11:49 97 Nasal Cannula 2.50 07/14/18 09:00 Nasal Cannula 3.50 07/14/18 06:48 96 Nasal Cannula 3.50 07/14/18 05:44 97.4 76 20 104/60 (75) 94 Room Air 07/13/18 21:00 96 Nasal Cannula 3.00 07/13/18 19:35 74 96 32 07/13/18 19:34 96 Nasal Cannula 3.00 07/13/18 18:55 103/61 (75) 07/13/18 18:48 74 20 94/56 (69) 98 Nasal Cannula 3.00 07/13/18 17:52 68 20 101/49 (66) 98 Nasal Cannula 3.00 07/13/18 17:42 98.8 07/13/18 17:38 73 20 93/51 (65) 98 Nasal Cannula 3.00 07/13/18 14:55 95 Nasal Cannula 3.00 I & O 07/14/18 07:00 Intake Total 625 ml Output Total 210 ml Balance 415 ml Capillary Refill : General Appearance: No Apparent Distress Extremity: Other (06/25 motor crow LE, NVSI, wound CDI, drain in place) Results Lab Laboratory Tests 07/14/18 05:09: White Blood Count 7.9, Red Blood Count 2.60L, Hemoglobin 7.9L, Hematocrit 24L, Mean Corpuscular Volume 91, Mean Corpuscular Hemoglobin 30, Mean Corpuscular Hemoglobin Concent 34, Red Cell Distribution Width 13.3, Platelet Count 185, Mean Platelet Volume 9.3, Neutrophils (%) (Auto) 57, Lymphocytes (%) (Auto) 23, Monocytes (%) (Auto) 19H, Eosinophils (%) (Auto) 1, Basophils (%) (Auto) 0, Neutrophils # (Auto) 4.5, Lymphocytes # (Auto) 1.8, Monocytes # (Auto) 1.5H, Eosinophils # (Auto) 0.0, Basophils # (Auto) 0.0, Sodium Level 131L, Potassium Level 2.8L, Chloride Level 97L, Carbon Dioxide Level 24, Anion Gap 10, Blood Ure a Nitrogen 13, Creatinine 0.65, Estimat Glomerular Filtration Rate > 60, BUN/Creatinine Ratio 20, Glucose Level 125H, Calcium Level 8.1L, Corrected Calcium 9.0, Phosphorus Level 2.9, Magnesium Level 2.3, Total Bilirubin 0.3, Aspartate Amino Transf (AST/SGOT) 32, Alanine Aminotransferase (ALT/SGPT) 17, Alkaline Phosphatase 54, Total Protein 5.4L, Albumin 2.9L 07/14/18 07:45: Urine Color YELLOW, Urine Clarity CLEAR, Urine pH 5, Urine Specific [place] 1.015L, Urine Protein 2+H, Urine Glucose (UA) NEGATIVE, Urine Ketones 1+H, Urine Nitrite NEGATIVE, Urine Bilirubin NEGATIVE, Urine Urobilinogen NORMAL, Urine Leukocyte Esterase 1+H, Urine RBC (Auto) NEGATIVE, Urine RBC NONE, Urine WBC RARE, Urine Squamous Epithelial Cells 0-2, Urine Crystals NONE, Urine Bacteria TRACE, Urine Casts NONE, Urine Mucus NEGATIVE, Urine Culture Indicated NO Assessment/Plan Assessment/Plan Assess & Plan/Chief Complaint ASSESSMENT: s/p TL PSIF POD3 PLAN: f/u with me in two weeks d/c drain pain control keep wound CDI Clinical Quality Measures DVT/VTE Risk/Contraindication: Risk Factor Score Per Nursin RFS Level Per Nursing on Admit: 4+=Very High RICHIE DUBOIS DO July 14, 2018 13:44
--- NOTE | 2018-07-14 13:52 | CONSULTATION REPORT ---
DATE OF SERVICE: 07/14/2018 ATTENDING PHYSICIAN: Hedy Galvan DO SUMMARY: A 72-year-old white lady recovering from spinal surgery by Dr. Hancock. Catheter was discontinued yesterday. She was voiding small amounts. Bladder scan revealed residual and she had straight catheterization. The patient has history of COPD and asthma. She is not a great historian, but she denies any previous problem passing urine. IMPRESSION: Urinary retention, most probably neurogenic. PLAN: 1. Flomax 0.4 mg daily. 2. We will start low dose Urecholine because of her COPD and asthma at 10 mg before meals and at bedtime. We will watch her for shortness of breath or wheezes. We will do bladder scan postvoid residual daily and p.r.n. and straight catheterization of over 350 mL. Plan was communicated with the nurse and the patient. Thank you. Job ID: [id number] DocumentID: [id number] Dictated Date: 07/14/2018 09:44:00 Care Specialist Date: 07/14/2018 13:51:53 Dictated By: AJAY MACHUCA MD
--- NOTE | 2018-07-14 14:17 | NUR ---
Initial visit: Engaged in rapport building and active listening. Pt identifies as Yazidism.
[2018-07-14] MEDS: CATHETER FLUSH 10 ML SYR IV SCH ×2 (14:24→21:24)
--- NOTE | 2018-07-14 15:01 | Therapy Group Daily Note ---
Therapy Daily Group Note Patient Education Topic Other List Below (memory/ARU description) Exercises LE Seated Exercise, Balance, ROM, UE Exercise Session Ratio (pt:therapist): 4:1 Goal of Session: Education on ARU Expectations, Memory Strategies, UE/LE Strengthing Goal Met for this Session: Yes Pt Benefit of Group: Contributions to Others, Increased Functional Strength, Improved Cognition, Recognition of Peers, Socialization Other/Notes Pt ambulated with FWW to [facility] area for OT/PT group. Group consisted of introductions (name, place born, if life was a movie what genre would it be and who would play you), socialization, ARU description, UE/LE strengthening, dynamic sitting, core stability, memory strategies and activities. Pt introduced self appropriately and actively listened to peers. Pt acknowledged understanding of ARU description. Pt was able to give description of personal memory strategies and contribute to discussion. Pt demonstrated good balance, UE/LE AROM and strength, core stability during balloon activity. After therapy, pt sitting in recliner with call light/phone in reach. All needs met in room. Start Time: 13:00 Stop Time: 14:40 Total Billed Treatment Time: 100 Total Billed Treatment 1-GRP MARICEL HERBERT July 14, 2018 15:01
--- NOTE | 2018-07-14 15:08 | Physical Therapy Daily Note ---
PT Daily Note-Current Subjective Pt. agrees to gait and activity. Pt. c/o some discomfort while TRFing sup to sit Pain Numeric Pain Scale: 3 Location: Medial Location Body Site: Back Pain Description: Ache Mental Status Patient Orientation: Normal For Age Attachments: Oxygen, Other-See Comments (back brace) Transfers Therapy Code Descriptions/Definitions Functional [place] Measure: 0=Not Assessed/NA 4=Minimal Assistance 1=Total Assistance 5=Supervision or Setup 2=Maximal Assistance 6=Modified [place] 3=Moderate Assistance 7=Complete [place] Therapy Quality Codes: 6 Independent with activity with or without an assistive device 5 Patient requires set up or clean up by helper. Patient completes activity by themselves 4 Supervision or touching assist (CGA). [place] provide cues , steadying assist 3 The helper provides less than half the effort to complete the activity 2 The helper provides more than half the effort to complete the activity 1 Dependent. The helper does all the effort to complete an activity 7 Patient refused to complete or attempt activity 9 The patient did not perform the activity before the current illness or injury 88 Not attempted due to Medical conditions or safety concerns sup to sit min to CGA, mod to max assist to dave brace, sit to stand CGA Weight Bearing Right Lower Extremity: Right Full Weight Bearing Left Lower Extremity: Left Full Weight Bearing Gait Training Does the Patient Walk?: Yes Gait Assistive Device: FWW gait 60 ft CGA and assist portable O2 at 3L, pt. heavy weight bearing on FWW during gait Exercises Supine Ex: Quad Set, Heel Slides, Hip abd/add Supine Reps: 12 Seated Therapy Exercises: Ankle pumps, Sit to stand, Long arc quads Seated Reps: 10 Assessment Current Status: Good Progress PT Short Term Goals Short Term Goals Time Frame: July 20, 2018 Transfers (B,C,W/C) (FIM): 4 Gait (FIM): 4 Gait Distance Comment: 150' Gait Level of Assist: 4 Gait Assistive Device: FWW PT [facility] Goals [employer] Hand Finisher Goals PT [employer] Hand Finisher Goals Time Frame: Aug 03, 2018 Transfers (B,C,W/C) (FIM): 5 Sit to Lying (QC): 4 Lying-Sitting on Side/Bed(QC): 4 Sit to Stand (QC): 4 Rollin Roll Left to Right (QC): 4 Chair/Czw-hp-Wdgmm Xfer(QC): 4 Car Transfer (QC): 4 Gait (FIM): 5 Distance: 200' Walk 10 feet (QC): 4 Walk 10ft-Uneven Surface(QC): 4 Walk 50ft with 2 Turns (QC): 4 Walk 150 ft (QC): 4 Gait Level of Assist: 5 Gait Assistive Device: FWW Stairs (FIM): 2 # of Steps: 4 1 Step (curb) (QC): 4 4 Steps (QC): 4 Stairs Level Of Assist: 4 PT Plan Treatment/Plan Treatment Plan: Continue Plan of Care Treatment Plan: Bed Mobility, Education, Functional Activity French, Functional Strength, Group Therapy, Gait, Safety, Therapeutic Exercise, Transfers Treatment Duration: Aug 03, 2018 Frequency: At least 5 of 7 days/Wk (IRF) Estimated Hrs Per Day: 1.5 hours per day Patient and/or Family Agrees t: Yes Safety Risks/Education Patient Education: Gait Training, Transfer Techniques, Correct Positioning, Disease Process, Safety Issues Teaching Recipient: Patient Teaching Methods: Demonstration, Discussion Response to Teaching: Verbalize Understanding, Return Demonstration, Reinforcement Needed Time/GCodes Time In: 1245 Time Out: 1300 Total Billed Treatment Time: 15 Total Billed Treatment 1,FA15m G Codes Necessary: SOWMYA Kam DOVETAILER July 14, 2018 15:08
--- NOTE | 2018-07-14 15:15 | NUR ---
DID NOT FEEL URGE TO VOID, BUT UP TO BATHROOM AND ATTEMPTED TO VOID BUT COULD NOT. BLADDER SCAN SHOWS 113 CC. WILL CONTINUE TO MONITOR.
[2018-07-14] MEDS: TAMSULOSIN 0.4 MG (FLOMAX) CAP PO SCH (17:29)
--- NOTE | 2018-07-14 17:45 | NUR ---
AGAIN, TRIED TO VOID BUT COULD NOT. BLADDER SCAN SHOWED 450 CC. STRAIGHT CATH'D, BUT ONLY HAD 250 CC RETURN.
[2018-07-14 17:56] VITALS: BP 93/54
[2018-07-15] MEDS: methylPREDNISolone 40 MG/ML (Solu-MEDROL) VIAL IV SCH ×5 (00:26→23:29)
[2018-07-15] MEDS: PIPERACILLIN/TAZOBACTAM (BULK) 4.5 GM in NS (IVPB) 100 ML IV SCH ×4 (00:26→23:29)
[2018-07-15 05:13] VITALS: BP 139/78
[2018-07-15 05:43] LABS: BASOPHILS % (AUTO) 0 % (0-10); EOSINOPHILS % (AUTO) 0 % (0-10); HEMATOCRIT 28 % (35-52); HEMOGLOBIN 9.2 G/DL (11.5-16.0); LYMPHOCYTES # (AUTO) 0.7 X 10^3 (1.0-4.0); LYMPHOCYTES % (AUTO) 11 % (12-44); MEAN CORPUSCULAR HGB CONC 34 G/DL (32-36); MEAN CORPUSCULAR VOLUME 91 FL (80-99); MEAN PLATELET VOLUME 9.7 FL (7.4-10.4); MONOCYTES # (AUTO) 0.3 X 10^3 (0.0-1.0); MONOCYTES % (AUTO) 4 % (0-12); NEUTROPHILS % (AUTO) 84 % (42-75); PLATELET COUNT 284 10^3/uL (130-400); RED CELL DISTRIBUTION WIDTH 13.5 % (10.0-14.5)
[2018-07-15 05:44] LABS: MEAN CORPUSCULAR HEMOGLOBIN 30 PG (25-34)
--- NOTE | 2018-07-15 05:46 | Pulmonary Progress Note ---
Subjective Time Seen by a Provider: 05:46 Subjective/Events-last exam No complications noted. Sepsis Event Evaluation Height, Weight, BMI Height: 5'2.00" Weight: 131lbs. 8.0oz. 59.832356ku; 24.1 BMI Method: Exam Exam Vital Signs Date Time Temp Pulse Resp B/P (MAP) Pulse Ox O2 Delivery O2 Flow Rate FiO2 07/15/18 05:13 97.0 82 20 139/78 (98) 96 Nasal Cannula 3.50 07/14/18 20:15 90 Nasal Cannula 3.50 07/14/18 20:10 Nasal Cannula 3.50 07/14/18 17:56 99.0 73 20 93/54 (67) 94 Nasal Cannula 3.50 07/14/18 15:31 93 Nasal Cannula 5.00 07/14/18 13:00 Nasal Cannula 3.50 07/14/18 11:49 97 Nasal Cannula 2.50 07/14/18 09:00 Nasal Cannula 3.50 07/14/18 08:00 75 112/69 (83) 98 Nasal Cannula 3.50 07/14/18 06:48 96 Nasal Cannula 3.50 I & O 07/15/18 07:00 Intake Total 1250 ml Output Total 800 ml Balance 450 ml Height & Weight Height: 5'2.00" Weight: 131lbs. 8.0oz. 59.012865es; 24.1 BMI Method: General Appearance: No Apparent Distress HEENT: PERRL/EOMI, TMs Normal, Normal ENT Inspection, Pharynx Normal, Moist Mucous Membranes Neck: Full Range of Motion, Normal Inspection, Non Tender, Supple Respiratory: Chest Non Tender, No Accessory Muscle Use, No Respiratory Distress, Crackles, Decreased Breath Sounds, Wheezing Cardiovascular: Regular Rate, Rhythm, No Edema, No Gallop, No JVD, No Murmur Extremity: Other (5/5 motor crow LE, NVSI, wound CDI, drain in place) Neurologic/Psychiatric: Alert, Oriented x3, No Motor/Sensory Deficits, Normal Mood/Affect Skin: Normal Color, Warm/Dry Lymphatic: No Adenopathy Results Lab Laboratory Tests 07/14/18 05:09 07/15/18 05:00 Assessment/Plan Assessment/Plan s/p thoracolumbar fusion Leukocytosis r/o infection -Leal culture -Zosyn and await cultures Hyponatremia -Monitor Atelectasis r/o PNA -IS Anemia - post op -Monitor FELICIA LOPEZ DO July 15, 2018 05:46
[2018-07-15 06:12] LABS: ALANINE AMINOTRANSFERASE 22 U/L (0-55); ALBUMIN 3.5 GM/DL (3.2-4.5); ALKALINE PHOSPHATASE 66 U/L (40-136); BILIRUBIN,TOTAL 0.4 MG/DL (0.1-1.0); BUN/CREATININE RATIO 13; CALCIUM 9.4 MG/DL (8.5-10.1); CARBON DIOXIDE 25 MMOL/L (21-32); CHLORIDE 100 MMOL/L (98-107); CREATININE SERUM 0.63 MG/DL (0.60-1.30); GFR ESTIMATED > 60; GLUCOSE 126 MG/DL (70-105); POTASSIUM 3.8 MMOL/L (3.6-5.0); SODIUM 137 MMOL/L (135-145); TOTAL PROTEIN 6.7 GM/DL (6.4-8.2)
[2018-07-15] MEDS: MULTIVIT W/MINERALS TAB (THERAGRAN M) PO SCH (06:33)
[2018-07-15] MEDS: BETHANECHOL 10 MG (URECHOLINE) TAB PO SCH ×4 (06:33→20:51)
[2018-07-15] MEDS: CATHETER FLUSH 10 ML SYR IV SCH ×3 (06:33→20:52)
[2018-07-15] MEDS: KCL 20 MEQ TAB (K-DUR) PO SCH ×3 (06:39→16:22)
[2018-07-15] MEDS: RT-ALBUTEROL/IPRATROPIUM 3 ML (DUONEB) VIAL INH SCH ×4 (07:33→19:26)
[2018-07-15 08:10] VITALS: BP 123/71
[2018-07-15] MEDS: lisINopril 20 MG (PRINIVIL) TABLET PO SCH (08:13)
[2018-07-15] MEDS: PANTOPRAZOLE 40 MG (PROTONIX) TAB PO SCH (08:13)
[2018-07-15] MEDS: meTOprolol SUCCINATE 100 MG (TOPROL XL) TAB PO SCH (08:13)
[2018-07-15] MEDS: SENNA W/DOCUSATE (SENOKOT S) TABLET PO SCH ×2 (08:13→20:51)
[2018-07-15] MEDS: FAMOTIDINE 20 MG (PEPCID) TABLET PO SCH (08:13)
[2018-07-15] MEDS: POLYETHYLENE GLYCOL 17 GM (MIRALAX) PACK PO SCH ×4 (08:14→20:51)
[2018-07-15] MEDS: oxyCODONE/APAP 5/325MG (PERCOCET 5) TABLET PO PRN ×2 (11:25→18:36)
--- NOTE | 2018-07-15 11:44 | PM&R Progress Note ---
Subjective HPI/CC On Admission Date Seen by Provider: July 15, 2018 Time Seen by Provider: 11:45 CC: Thoracic lumbar spine surgery HPI: This is a 72yoWF clinic patient of Dr Cancino in [place], [place] know to me from prior spine surgery admits w/h/o severe O2 dependent COPD who continues to smoke who presents to the IRF unit in need of intensive rehab in order to return home with her . Patient is doing ok today just having back pain and a cough. Patient was recently dx with pneumonia and placed on aggressive treatment by Dr Lubin whom his expertise is much appreciated and the patient appreciates his help. No BM for now 4 days post op and that is being addressed more aggressively today. PLOF was independent with ambulation and ADL's. I have reviewed her labs and we are in the midst of correction of her abnormal electr olytes with supplements. Nebs are ordered along with IV antibiotics and IV steroids. Iron with very low along with hemoglobin so will start Venofer. Potassium will be supplemented 20meq PO TID for 3 days Drain is now out. Urinary retention this morning so have consulted Dr Lane for retention. Subjective/Events-last exam Urinary retention continues Appreciate Dr Lane to manage that Labs look better Venofer tolerated for anemia iron def Dyspnea after activity due to AECOPD with pneumonia Bladder scans ordered and cath in/out if greater than 400cc No IVF since she is eating better Zosyn and steroids maintained and tolerated Appears to not be too motivated at times Conferred with RN Reviewed therapy notes Review of Systems General: Fatigue Pulmonary: Dyspnea Musculoskeletal: back pain Objective Exam Vital Signs Vital Signs Date Time Temp Pulse Resp B/P (MAP) Pulse Ox O2 Delivery O2 Flow Rate FiO2 07/15/18 10:58 90 Nasal Cannula 3.50 07/15/18 08:10 79 20 123/71 (88) 07/15/18 05:13 97.0 07/13/18 19:35 32 Capillary Refill : General Appearance: No Apparent Distress HEENT: PERRL/EOMI, TMs Normal, Normal ENT Inspection, Pharynx Normal, Moist Mucous Membranes Neck: Full Range of Motion, Normal Inspection, Non Tender, Supple Respiratory: Chest Non Tender, No Accessory Muscle Use, No Respiratory Distress, Crackles, Decreased Breath Sounds, Wheezing Cardiovascular: Regular Rate, Rhythm, No Edema, No Gallop, No JVD, No Murmur Gastrointestinal: Normal Bowel Sounds, No Organomegaly, No Pulsatile Mass, Non Tender, Soft Back: Decreased Range of Motion Extremity: Other (5/5 motor crow LE, NVSI, wound CDI, drain in place) Neurologic/Psychiatric: Alert, Oriented x3, No Motor/Sensory Deficits, Normal M ood/Affect Skin: Normal Color, Warm/Dry Lymphatic: No Adenopathy Results/Procedures Lab Laboratory Tests 07/15/18 05:00 Patient resulted labs reviewed. FIM Transfers Therapy Code Descriptions/Definitions Functional [place] Measure: 0=Not Assessed/NA 4=Minimal Assistance 1=Total Assistance 5=Supervision or Setup 2=Maximal Assistance 6=Modified [place] 3=Moderate Assistance 7=Complete [place] Therapy Quality Codes: 6 Independent with activity with or without an assistive device 5 Patient requires set up or clean up by helper. Patient completes activity by themselves 4 Supervision or touching assist (CGA). [place] provide cues , steadying assi st 3 The helper provides less than half the effort to complete the activity 2 The helper provides more than half the effort to complete the activity 1 Dependent. The helper does all the effort to complete an activity 7 Patient refused to complete or attempt activity 9 The patient did not perform the activity before the current illness or injury 88 Not attempted due to Medical conditions or safety concerns Transfers (B, C, W/C) (FIM): 4 Scootin Rollin Roll Left to Right (QC): 3 Supine to/from Sit: 4 (sup to sit with HOB elevated, use of bedrail, log roll, still requiring min assist at shoulder to completely sit at EOB. Sitting balance good, c/o lightheadedness sitting EOB after coughing) Sit to/from Stand: 4 (CGA due to pt c/o lightheadedness not subsiding. no LOB or unsteadiness upon standing) Sit to Lying (QC): 2 Sit to Stand (QC): 3 Chair/Klw-bw-Ufvgo Xfer(QC): 3 Bed to/from Chair: 4 (CGA provided due to increased c/o pain and cont'd ligh theadedness, no LOB or unsteadiness, very slow shuffing steps) Car Transfer (QC): 3 Gait Training Does the Patient Walk?: Yes Gait (FIM): 1 Distance: 10 Walk 10 feet (QC): 4 Walk 50 ft with 2 Turns(QC): 4 Walking 10ft/uneven surface-QC: 3 Gait Level of Assist: 4 (CGA provided due to c/o increased pain and light headedness) Gait Persons Needed: 1 Gait Assistive Device: FWW Wheelchair Training Does the Pt Use a Wheelchair?: No Stair Training Stairs (FIM): 1 #of Steps: 1 1 Step (curb) (QC): 3 Level of Assist: 4 Mental Status/Objective Comprehension: 7 Expression: 7 Social Interaction: 7 Problem Solvin Memory: 7 ADL-Treatment Groomin (Pt. is encouraged to brush hair but is only able to swipe a couple of times. OT does this for her.) Bathin (Will need lower body AE.) Bathing Location: L Arm, R Arm, Chest, Abdomen Shower/Bathe Self (QC): 2 Lower Extremity Dressin (Pt. able to doff socks with great effort, but unable to don them. OT does this for her.) Lower Body Dressing (QC): 2 On/Off Footwear (QC): 2 Toiletin (Mod assist overall to doff brief and pull up, as well as cleanse self.) Toileting Hygiene (QC): 3 Toilet/Commode Transfer: 4 Toilet Transfer (QC): 4 Assessment/Plan Assessment and Plan Assess & Plan/Chief Complaint Assessment: Extensive spinal surgery POD # 5 uncomplicated AECOPD Pneumonia Anemia Hyponatremia Hypokalemia Smoker Frail status Constipation Back pain Plan: Pain control BM regimen Potassium Abx Steroids Venofer (1) JUNCTIONAL KYPHOSIS (2) COPD (chronic obstructive pulmonary disease) (3) Hypokalemia (4) Urinary retention (5) Anemia (6) Atelectasis (7) Hyperlipidemia (8) Hyponatremia (9) Leukocytosis (10) GERD (gastroesophageal reflux disease) (11) Hypertension (12) Pneumonia (13) Lumbar spinal stenosis (14) Oxygen dependent (15) Frailty (16) RESPIRATORY FAILURE, UNSP, UNSP W HYPOXIA OR HYPERCAPNIA (17) Smoker MAGDALENE ANDRES DO July 15, 2018 11:43
--- NOTE | 2018-07-15 12:56 | Physical Therapy Daily Note ---
PT Daily Note-Current Subjective Pt reports she is having a hard time even wanting to sit up due to the pain and discomfort of her back brace. Agreeable to PT session. Declines gait but agreeable to exercises and sitting up in chair Pain Numeric Pain Scale: 5-Moderate Pain Comment: back pain, increased to 7/10 with mobility, requested and received pain med Appearance Pt in bed upon arrival, awake and alert Pt requesting and assisted to BSC at toward end of session At end of session, pt sitting on BSC with nursing present, received pain med, call light within reach Mental Status Patient Orientation: Person, Place, Time, Eyes Open Attachments: Oxygen, IV back brace Transfers Therapy Code Descriptions/Definitions Functional [place] Measure: 0=Not Assessed/NA 4=Minimal Assistance 1=Total Assistance 5=Supervision or Setup 2=Maximal Assistance 6=Modified [place] 3=Moderate Assistance 7=Complete [place] Therapy Quality Codes: 6 Independent with activity with or without an assistive device 5 Patient requires set up or clean up by helper. Patient completes activity by themselves 4 Supervision or touching assist (CGA). [place] provide cues , steadying assist 3 The helper provides less than half the effort to complete the activity 2 The helper provides more than half the effort to complete the activity 1 Dependent. The helper does all the effort to complete an activity 7 Patient refused to complete or attempt activity 9 The patient did not perform the activity before the current illness or injury 88 Not attempted due to Medical conditions or safety concerns Transfers (B, C, W/C) (FIM): 4 Scootin Rollin (verb instruction provided) Supine to/from Sit: 5 (HOB elevated, verb inst for precautions, safety and technique) Sit to/from Stand: 4 (CGA provided due to pt c/o lightheadedness) Bed to/from Chair: 4 (CGA provided due to pt c/o lightheadedness. x4 stand pivot transfers performed) Weight Bearing Right Lower Extremity: Right Full Weight Bearing Left Lower Extremity: Left Full Weight Bearing Exercises Seated Therapy Exercises: Ankle pumps, Long arc quads, Hip flexion, Hip abd/add Seated Reps: 20 (pt very slow at performing) Treatments bed mobility, donning back brace, safety, education, transfers, functional mobility, strength, activity tolerance, bathroom, education Assessment pain continues to limit pt activity, pt requires mod to max encouragement to perform activities, pt requiring max encouragement to sit up in chair, pt does not like sitting up in chair due to increased pain and very uncomfortable with back brace PT Short Term Goals Short Term Goals Time Frame: July 20, 2018 Transfers (B,C,W/C) (FIM): 4 Gait (FIM): 4 Gait Distance Comment: 150' Gait Level of Assist: 4 Gait Assistive Device: FWW PT [facility] Goals Dial Printer Goals PT Dial Printer Goals Time Frame: Aug 03, 2018 Transfers (B,C,W/C) (FIM): 5 Sit to Lying (QC): 4 Lying-Sitting on Side/Bed(QC): 4 Sit to Stand (QC): 4 Rollin Roll Left to Right (QC): 4 Chair/Smh-vt-Qkzbm Xfer(QC): 4 Car Transfer (QC): 4 Gait (FIM): 5 Distance: 200' Walk 10 feet (QC): 4 Walk 10ft-Uneven Surface(QC): 4 Walk 50ft with 2 Turns (QC): 4 Walk 150 ft (QC): 4 Gait Level of Assist: 5 Gait Assistive Device: FWW Stairs (FIM): 2 # of Steps: 4 1 Step (curb) (QC): 4 4 Steps (QC): 4 Stairs Level Of Assist: 4 PT Plan Treatment/Plan Treatment Plan: Continue Plan of Care Treatment Plan: Bed Mobility, Education, Functional Activity French, Functional Strength, Group Therapy, Gait, Safety, Therapeutic Exercise, Transfers Treatment Duration: Aug 03, 2018 Frequency: At least 5 of 7 days/Wk (IRF) Estimated Hrs Per Day: 1.5 hours per day Patient and/or Family Agrees t: Yes Safety Risks/Education Patient Education: Transfer Techniques, Reviewed Precautions, Safety Issues Teaching Recipient: Patient Teaching Methods: Demonstration, Discussion Response to Teaching: Verbalize Understanding, Return Demonstration, Reinforcement Needed Time/GCodes Time In: 1103 Time Out: 1127 Total Billed Treatment Time: 24 Total Billed Treatment 1 visit, FA x 1 unit, EX x 1 unit BRANDIN MANTILLA PTA July 15, 2018 12:56
--- NOTE | 2018-07-15 16:59 | NUR ---
Small, liquid BM this AM mixed with urine. Continue TID Miralax per Dr. Galvan.
--- NOTE | 2018-07-15 17:10 | NUR ---
Post void bladder scan- 222mls. Will continue to monitor.
[2018-07-15 17:12] VITALS: BP 123/64
--- NOTE | 2018-07-15 17:54 | NUR ---
I/S at bedside and encouraged. Continues to be SOA with exertion. O2 at 3.5L per NC.
[2018-07-15] MEDS: TAMSULOSIN 0.4 MG (FLOMAX) CAP PO SCH (17:59)
--- NOTE | 2018-07-15 20:44 | NUR ---
RN heard patient up in room using walker. RN checked on patient and found patient getting back in bed. RN reminded patient she is not to get up without staff assistance. The room smelled like smoke and RN questioned patient about it. Patient admitted to smoking one puff and then flushing the cigarette down the toilet. RN reminded patient that this was a smoke free facility and that there was oxygen in the [place]. Patient said she would not smoke anymore. Will continue to monitor.
--- NOTE | 2018-07-15 21:00 | NUR ---
RN asked patient for her cigarettes and solutions market consultant. Patient gave them to RN and they were locked up in the parking manager the patient's room. Patient acknowledged understanding of no smoking policy and that she will have her items returned to her upon discharge.
[2018-07-16 05:19] VITALS: BP 112/59
[2018-07-16 06:21] LABS: BASOPHILS % (AUTO) 0 % (0-10); EOSINOPHILS % (AUTO) 0 % (0-10); HEMATOCRIT 23 % (35-52); HEMOGLOBIN 7.5 G/DL (11.5-16.0); LYMPHOCYTES # (AUTO) 0.6 X 10^3 (1.0-4.0); LYMPHOCYTES % (AUTO) 8 % (12-44); MEAN CORPUSCULAR HEMOGLOBIN 30 PG (25-34); MEAN CORPUSCULAR HGB CONC 33 G/DL (32-36); MEAN CORPUSCULAR VOLUME 92 FL (80-99); MEAN PLATELET VOLUME 9.4 FL (7.4-10.4); MONOCYTES # (AUTO) 0.6 X 10^3 (0.0-1.0); MONOCYTES % (AUTO) 7 % (0-12); NEUTROPHILS # (AUTO) 7.2 X 10^3 (1.8-7.8); NEUTROPHILS % (AUTO) 86 % (42-75); PLATELET COUNT 305 10^3/uL (130-400); RED CELL DISTRIBUTION WIDTH 13.9 % (10.0-14.5); WHITE BLOOD COUNT 8.4 10^3/uL (4.3-11.0)
[2018-07-16] MEDS: KCL 20 MEQ TAB (K-DUR) PO SCH ×3 (06:33→16:11)
[2018-07-16] MEDS: BETHANECHOL 10 MG (URECHOLINE) TAB PO SCH ×4 (06:33→20:49)
[2018-07-16] MEDS: MULTIVIT W/MINERALS TAB (THERAGRAN M) PO SCH (06:33)
[2018-07-16] MEDS: CATHETER FLUSH 10 ML SYR IV SCH ×3 (06:33→20:49)
[2018-07-16] MEDS: methylPREDNISolone 40 MG/ML (Solu-MEDROL) VIAL IV SCH ×3 (06:33→18:12)
[2018-07-16 06:42] LABS: ALANINE AMINOTRANSFERASE 23 U/L (0-55); ALBUMIN 3.1 GM/DL (3.2-4.5); ALKALINE PHOSPHATASE 56 U/L (40-136); BILIRUBIN,TOTAL 0.2 MG/DL (0.1-1.0); BUN/CREATININE RATIO 19; CALCIUM 8.8 MG/DL (8.5-10.1); CARBON DIOXIDE 23 MMOL/L (21-32); CHLORIDE 107 MMOL/L (98-107); CREATININE SERUM 0.62 MG/DL (0.60-1.30); GFR ESTIMATED > 60; GLUCOSE 138 MG/DL (70-105); POTASSIUM 4.6 MMOL/L (3.6-5.0); SODIUM 138 MMOL/L (135-145); TOTAL PROTEIN 5.7 GM/DL (6.4-8.2)
[2018-07-16] MEDS: RT-ALBUTEROL/IPRATROPIUM 3 ML (DUONEB) VIAL INH SCH ×4 (07:35→19:17)
[2018-07-16] MEDS: SENNA W/DOCUSATE (SENOKOT S) TABLET PO SCH ×2 (08:29→19:53)
[2018-07-16] MEDS: POLYETHYLENE GLYCOL 17 GM (MIRALAX) PACK PO SCH ×4 (08:29→19:53)
[2018-07-16] MEDS: PIPERACILLIN/TAZOBACTAM (BULK) 4.5 GM in NS (IVPB) 100 ML IV SCH ×2 (08:54→16:07)
[2018-07-16] MEDS: FAMOTIDINE 20 MG (PEPCID) TABLET PO SCH (09:00)
[2018-07-16] MEDS: IRON SUCROSE 200 MG/10 ML (VENOFER) VIAL IV SCH (09:00)
[2018-07-16] MEDS: oxyCODONE/APAP 5/325MG (PERCOCET 5) TABLET PO PRN ×2 (09:00→16:12)
[2018-07-16] MEDS: lisINopril 20 MG (PRINIVIL) TABLET PO SCH (09:00)
[2018-07-16] MEDS: meTOprolol SUCCINATE 100 MG (TOPROL XL) TAB PO SCH (09:00)
[2018-07-16] MEDS: PANTOPRAZOLE 40 MG (PROTONIX) TAB PO SCH (09:02)
--- NOTE | 2018-07-16 10:47 | PM&R Progress Note ---
Subjective HPI/CC On Admission Date Seen by Provider: July 16, 2018 Time Seen by Provider: 10:45 CC: Thoracic lumbar spine surgery HPI: This is a 72yoWF clinic patient of Dr Cancino in [place], [place] know to me from prior spine surgery admits w/h/o severe O2 dependent COPD who continues to smoke who presents to the IRF unit in need of intensive rehab in order to return home with her . Patient is doing ok today just having back pain and a cough. Patient was recently dx with pneumonia and placed on aggressive treatment by Dr Lubin whom his expertise is much appreciated and the patient appreciates his help. No BM for now 4 days post op and that is being addressed more aggressively today. PLOF was independent with ambulation and ADL's. I have reviewed her labs and we are in the midst of correction of her abnormal electr olytes with supplements. Nebs are ordered along with IV antibiotics and IV steroids. Iron with very low along with hemoglobin so will start Venofer. Potassium will be supplemented 20meq PO TID for 3 days Drain is now out. Urinary retention this morning so have consulted Dr Lane for retention. Subjective/Events-last exam Urinary retention continues but it is being managed well with Dr Lane expertise Appreciate Dr Lane Labs look better Venofer tolerated for anemia iron def Dyspnea after activity due to AECOPD with pneumonia but that seems to be better Caught in the bathroom smoking last evening so the nurse took her cigarettes Bladder scans ordered and cath in/out if greater than 400cc and that is working well Zosyn and steroids maintained and tolerated Appears to be more motivated today Conferred with RN Reviewed therapy notes Review of Systems Pulmonary: Dyspnea Objective Exam Vital Signs Vital Signs Date Time Temp Pulse Resp B/P (MAP) Pulse Ox O2 Delivery O2 Flow Rate FiO2 07/16/18 15:09 96 Nasal Cannula 3.50 07/16/18 11:27 79 34 07/16/18 05:19 97.9 18 112/59 (76) Capillary Refill : General Appearance: No Apparent Distress, WD/WN, Chronically ill, Thin, Other (improved) HEENT: PERRL/EOMI, TMs Normal, Normal ENT Inspection, Pharynx Normal, Moist Mucous Membranes Neck: Full Range of Motion, Normal Inspection, Non Tender, Supple Respiratory: Chest Non Tender, No Accessory Muscle Use, No Respiratory Distress, Crackles, Decreased Breath Sounds Cardiovascular: Regular Rate, Rhythm, No Edema, No Gallop, No JVD, No Murmur Gastrointestinal: Normal Bowel Sounds, No Organomegaly, No Pulsatile Mass, Non Tender, Soft Back: Decreased Range of Motion Extremity: Other (5/5 motor crow LE, NVSI, wound CDI, drain in place) Neurologic/Psychiatric: Alert, Oriented x3, No Motor/Sensory Deficits, Normal Mood/Affect Skin: Normal Color, Warm/Dry Lymphatic: No Adenopathy Results/Procedures Lab Laboratory Tests 07/16/18 05:27 Patient resulted labs reviewed. FIM Transfers Therapy Code Descriptions/Definitions Functional [place] Measure: 0=Not Assessed/NA 4=Minimal Assistance 1=Total Assistance 5=Supervision or Setup 2=Maximal Assistance 6=Modified [place] 3=Moderate Assistance 7=Complete [place] Therapy Quality Codes: 6 Independent with activity with or without an assistive device 5 Patient requires set up or clean up by helper. Patient completes activity by themselves 4 Supervision or touching assist (CGA). [place] provide cues , steadying assist 3 The helper provides less than half the effort to complete the activity 2 The helper provides more than half the effort to complete the activity 1 Dependent. The helper does all the effort to complete an activity 7 Patient refused to complete or attempt activity 9 The patient did not perform the activity before the current illness or injury 88 Not attempted due to Medical conditions or safety concerns Transfers (B, C, W/C) (FIM): 4 Scootin Rollin (verb instruction provided) Roll Left to Right (QC): 3 Supine to/from Sit: 5 (HOB elevated, verb inst for precautions, safety and technique) Sit to/from Stand: 4 (CGA provided due to pt c/o lightheadedness) Sit to Lying (QC): 2 Sit to Stand (QC): 3 Chair/Hcs-cj-Smqoo Xfer(QC): 3 Bed to/from Chair: 4 (CGA provided due to pt c/o lightheadedness. x4 stand pivot transfers performed) Car Transfer (QC): 3 Gait Training Does the Patient Walk?: Yes Gait (FIM): 1 Distance: 10 Walk 10 feet (QC): 4 Walk 50 ft with 2 Turns(QC): 4 Walking 10ft/uneven surface-QC: 3 Gait Level of Assist: 4 (CGA provided due to c/o increased pain and lightheadedness) Gait Persons Needed: 1 Gait Assistive Device: FWW Wheelchair Training Does the Pt Use a Wheelchair?: No Stair Training Stairs (FIM): 1 #of Steps: 1 1 Step (curb) (QC): 3 Level of Assist: 4 Mental Status/Objective Comprehension: 7 Expression: 7 Social Interaction: 7 Problem Solvin Memory: 7 ADL-Treatment Groomin (Pt. is encouraged to brush hair but is only able to swipe a couple of times. OT does this for her.) Bathin (Will need lower body AE.) Bathing Location: L Arm, R Arm, Chest, Abdomen Shower/Bathe Self (QC): 2 Lower Extremity Dressin (Pt. able to doff socks with great effort, but unable to don them. OT does this for her.) Lower Body Dressing (QC): 2 On/Off Footwear (QC): 2 Toiletin (Mod assist overall to doff brief and pull up, as well as cleanse self.) Toileting Hygiene (QC): 3 Toilet/Commode Transfer: 4 Toilet Transfer (QC): 4 Assessment/Plan Assessment and Plan Assess & Plan/Chief Complaint Assessment: Extensive spinal surgery POD # 6 uncomplicated AECOPD Pneumonia Anemia Hyponatremia Hypokalemia Smoker Frail status Constipation Back pain Plan: Pain control BM regimen Potassium Abx Steroids Venofer (1) JUNCTIONAL KYPHOSIS (2) COPD (chronic obstructive pulmonary disease) (3) Hypokalemia (4) Urinary retention (5) Anemia (6) Atelectasis (7) Hyperlipidemia (8) Hyponatremia (9) Leukocytosis (10) GERD (gastroesophageal reflux disease) (11) Hypertension (12) Pneumonia (13) Lumbar spinal stenosis (14) Oxygen dependent (15) Frailty (16) RESPIRATORY FAILURE, UNSP, UNSP W HYPOXIA OR HYPERCAPNIA (17) Smoker MAGDALENE ANDRES DO July 16, 2018 10:47
[2018-07-16 11:27] VITALS: BP 112/54
[2018-07-16 17:18] VITALS: BP 126/65
[2018-07-16] MEDS: TAMSULOSIN 0.4 MG (FLOMAX) CAP PO SCH (18:12)
[2018-07-17] MEDS: CATHETER FLUSH 10 ML SYR IV SCH ×3 (00:36→22:09)
[2018-07-17] MEDS: methylPREDNISolone 40 MG/ML (Solu-MEDROL) VIAL IV SCH ×4 (00:36→18:13)
[2018-07-17] MEDS: PIPERACILLIN/TAZOBACTAM (BULK) 4.5 GM in NS (IVPB) 100 ML IV SCH ×3 (00:36→16:56)
[2018-07-17] MEDS: oxyCODONE/APAP 5/325MG (PERCOCET 5) TABLET PO PRN ×2 (04:32→08:25)
[2018-07-17 05:53] LABS: BASOPHILS % (AUTO) 0 % (0-10); EOSINOPHILS % (AUTO) 0 % (0-10); HEMATOCRIT 24 % (35-52); HEMOGLOBIN 7.9 G/DL (11.5-16.0); LYMPHOCYTES # (AUTO) 0.9 X 10^3 (1.0-4.0); LYMPHOCYTES % (AUTO) 8 % (12-44); MEAN CORPUSCULAR HEMOGLOBIN 31 PG (25-34); MEAN CORPUSCULAR HGB CONC 33 G/DL (32-36); MEAN CORPUSCULAR VOLUME 94 FL (80-99); MEAN PLATELET VOLUME 8.6 FL (7.4-10.4); MONOCYTES # (AUTO) 0.6 X 10^3 (0.0-1.0); MONOCYTES % (AUTO) 5 % (0-12); NEUTROPHILS # (AUTO) 9.5 X 10^3 (1.8-7.8); NEUTROPHILS % (AUTO) 87 % (42-75); PLATELET COUNT 371 10^3/uL (130-400); RED CELL DISTRIBUTION WIDTH 14.2 % (10.0-14.5)
[2018-07-17 05:57] VITALS: BP 169/73
[2018-07-17] MEDS: MULTIVIT W/MINERALS TAB (THERAGRAN M) PO SCH (06:16)
[2018-07-17] MEDS: BETHANECHOL 10 MG (URECHOLINE) TAB PO SCH ×2 (06:16→10:31)
[2018-07-17 06:20] LABS: ALANINE AMINOTRANSFERASE 24 U/L (0-55); ALBUMIN 3.2 GM/DL (3.2-4.5); ALKALINE PHOSPHATASE 50 U/L (40-136); BILIRUBIN,TOTAL 0.3 MG/DL (0.1-1.0); BUN/CREATININE RATIO 20; CALCIUM 8.7 MG/DL (8.5-10.1); CARBON DIOXIDE 23 MMOL/L (21-32); CHLORIDE 106 MMOL/L (98-107); GFR ESTIMATED > 60; GLUCOSE 130 MG/DL (70-105); POTASSIUM 4.5 MMOL/L (3.6-5.0); SODIUM 138 MMOL/L (135-145); TOTAL PROTEIN 5.7 GM/DL (6.4-8.2)
[2018-07-17] MEDS: RT-ALBUTEROL/IPRATROPIUM 3 ML (DUONEB) VIAL INH SCH ×4 (06:47→19:13)
[2018-07-17] MEDS: SENNA W/DOCUSATE (SENOKOT S) TABLET PO SCH ×2 (08:06→19:37)
[2018-07-17] MEDS: POLYETHYLENE GLYCOL 17 GM (MIRALAX) PACK PO SCH ×4 (08:06→19:36)
[2018-07-17] MEDS: meTOprolol SUCCINATE 100 MG (TOPROL XL) TAB PO SCH (08:25)
[2018-07-17] MEDS: FAMOTIDINE 20 MG (PEPCID) TABLET PO SCH (08:25)
[2018-07-17] MEDS: PANTOPRAZOLE 40 MG (PROTONIX) TAB PO SCH (08:25)
[2018-07-17] MEDS: lisINopril 20 MG (PRINIVIL) TABLET PO SCH (08:25)
--- NOTE | 2018-07-17 09:59 | Physical Therapy Daily Note ---
PT Daily Note-Current Subjective Patient in bed pre tx, agrees to PT reluctantly, has 7/10 pain in back. Appearance Patient in bed post tx with nurse call, phone, tray, all needs met. Mental Status Patient Orientation: Person, Place, Situation Attachments: Oxygen, Drains Transfers Therapy Code Descriptions/Definitions Functional [place] Measure: 0=Not Assessed/NA 4=Minimal Assistance 1=Total Assistance 5=Supervision or Setup 2=Maximal Assistance 6=Modified [place] 3=Moderate Assistance 7=Complete [place] Therapy Quality Codes: 6 Independent with activity with or without an assistive device 5 Patient requires set up or clean up by helper. Patient completes activity by themselves 4 Supervision or touching assist (CGA). [place] provide cues , steadying assist 3 The helper provides less than half the effort to complete the activity 2 The helper provides more than half the effort to complete the activity 1 Dependent. The helper does all the effort to complete an activity 7 Patient refused to complete or attempt activity 9 The patient did not perform the activity before the current illness or injury 88 Not attempted due to Medical conditions or safety concerns Transfers (B, C, W/C) (FIM): 4 Scootin Rollin Supine to/from Sit: 4 Sit to/from Stand: 4 Bed to/from Chair: 4 Patient transferred from bed to commode to urinate, nurse aide helped patient wi th brief and cleaning. Patient transferred back to bed. Stated that she is having trouble breathing, O2 sat is 91%. Eventually patient states that she needs to lay down and says that early mornings are not good for her and she would participate later. Weight Bearing Right Lower Extremity: Right Full Weight Bearing Left Lower Extremity: Left Full Weight Bearing Treatments transfers, brace don/doff Assessment Current Status: Poor Progress Patient trouble breathing and refuses to continue with PT. PT Short Term Goals Short Term Goals Time Frame: July 20, 2018 Transfers (B,C,W/C) (FIM): 4 Gait (FIM): 4 Gait Distance Comment: 150' Gait Level of Assist: 4 Gait Assistive Device: FWW PT Medical Support Assistant Goals Longterm Goals PT Medical Support Assistant Goals Time Frame: Aug 03, 2018 Transfers (B,C,W/C) (FIM): 5 Sit to Lying (QC): 4 Lying-Sitting on Side/Bed(QC): 4 Sit to Stand (QC): 4 Rollin (verb instruction provided) Roll Left to Right (QC): 4 Chair/Zfd-az-Cnqgj Xfer(QC): 4 Car Transfer (QC): 4 Gait (FIM): 5 Distance: 200' Walk 10 feet (QC): 4 Walk 10ft-Uneven Surface(QC): 4 Walk 50ft with 2 Turns (QC): 4 Walk 150 ft (QC): 4 Gait Level of Assist: 5 Gait Assistive Device: FWW Stairs (FIM): 2 # of Steps: 4 1 Step (curb) (QC): 4 4 Steps (QC): 4 Stairs Level Of Assist: 4 PT Plan Problem List Problem List: Activity Tolerance, Functional Strength, Safety, Balance, Gait, Transfer, Bed Mobility, ROM Treatment/Plan Treatment Plan: Continue Plan of Care Treatment Plan: Bed Mobility, Education, Functional Activity French, Functional Strength, Group Therapy, Gait, Safety, Therapeutic Exercise, Transfers Treatment Duration: Aug 03, 2018 Frequency: At least 5 of 7 days/Wk (IRF) Estimated Hrs Per Day: 1.5 hours per day Patient and/or Family Agrees t: Yes Safety Risks/Education Patient Education: Transfer Techniques, Correct Positioning, Reviewed Don/Doff Brace, Safety Issues Teaching Recipient: Patient Teaching Methods: Demonstration, Discussion Response to Teaching: Reinforcement Needed Time/GCodes Time In: 0800 Time Out: 0815 Total Billed Treatment Time: 15 Total Billed Treatment 1 visit FA 15' NAVID FRIEND PT July 17, 2018 09:59
--- NOTE | 2018-07-17 11:28 | PM&R Progress Note ---
Subjective HPI/CC On Admission Date Seen by Provider: July 17, 2018 Time Seen by Provider: 11:45 CC: Thoracic lumbar spine surgery HPI: This is a 72yoWF clinic patient of Dr Cancino in [place], [place] know to me from prior spine surgery admits w/h/o severe O2 dependent COPD who continues to smoke who presents to the IRF unit in need of intensive rehab in order to return home with her . Patient is doing ok today just having back pain and a cough. Patient was recently dx with pneumonia and placed on aggressive treatment by Dr Lubin whom his expertise is much appreciated and the patient appreciates his help. No BM for now 4 days post op and that is being addressed more aggressively today. PLOF was independent with ambulation and ADL's. I have reviewed her labs and we are in the midst of correction of her abnormal electr olytes with supplements. Nebs are ordered along with IV antibiotics and IV steroids. Iron with very low along with hemoglobin so will start Venofer. Potassium will be supplemented 20meq PO TID for 3 days Drain is now out. Urinary retention this morning so have consulted Dr Lane for retention. Subjective/Events-last exam Urinary retention continues but it is being managed well with Dr Lane expertise Needs 1 unit of blood to help dyspnea and improve stamin to benefit from IRF services in order to return home Labs look better otherwise Venofer tolerated for anemia iron def but will need the blood transfusion to help stamina sooner Dyspnea after activity due to AECOPD with pneumonia but recovers quickly Bladder scans ordered and cath in/out if greater than 400cc and that is working well Zosyn and steroids maintained and tolerated Appears to be more motivated the last 2 days Conferred with RN Reviewed therapy notes Review of Systems General: Fatigue Pulmonary: Dyspnea Musculoskeletal: back pain Objective Exam Vital Signs Vital Signs Date Time Temp Pulse Resp B/P (MAP) Pulse Ox O2 Delivery O2 Flow Rate FiO2 07/17/18 16:35 97.7 74 16 149/70 (96) 96 Nasal Cannula 3.50 07/16/18 11:27 34 Capillary Refill : General Appearance: No Apparent Distress, WD/WN, Chronically ill, Thin, Other (improved) HEENT: PERRL/EOMI, TMs Normal, Normal ENT Inspection, Pharynx Normal, Moist Mucous Membranes Neck: Full Range of Motion, Normal Inspection, Non Tender, Supple Respiratory: Chest Non Tender, No Accessory Muscle Use, No Respiratory Distress, Crackles, Decreased Breath Sounds Cardiovascular: Regular Rate, Rhythm, No Edema, No Gallop, No JVD, No Murmur Gastrointestinal: Normal Bowel Sounds, No Organomegaly, No Pulsatile Mass, Non Tender, Soft Back: Decreased Range of Motion Extremity: Other (5/5 motor crow LE, NVSI, wound CDI, drain in place) Neurologic/Psychiatric: Alert, Oriented x3, No Motor/Sensory Deficits, Normal Mood/Affect Skin: Normal Color, Warm/Dry Lymphatic: No Adenopathy Results/Procedures Lab Laboratory Tests 07/17/18 05:40 Patient resulted labs reviewed. FIM Transfers Therapy Code Descriptions/Definitions Functional [place] Measure: 0=Not Assessed/NA 4=Minimal Assistance 1=Total Assistance 5=Supervision or Setup 2=Maximal Assistance 6=Modified [place] 3=Moderate Assistance 7=Complete [place] Therapy Quality Codes: 6 Independent with activity with or without an assistive device 5 Patient requires set up or clean up by helper. Patient completes activity by themselves 4 Supervision or touching assist (CGA). [place] provide cues , steadying assist 3 The helper provides less than half the effort to complete the activity 2 The helper provides more than half the effort to complete the activity 1 Dependent. The helper does all the effort to complete an activity 7 Patient refused to complete or attempt activity 9 The patient did not perform the activity before the current illness or injury 88 Not attempted due to Medical conditions or safety concerns Transfers (B, C, W/C) (FIM): 4 Scootin Rollin Roll Left to Right (QC): 3 Supine to/from Sit: 4 Sit to/from Stand: 4 Sit to Lying (QC): 2 Sit to Stand (QC): 3 Chair/Nva-xn-Ihvyw Xfer(QC): 3 Bed to/from Chair: 4 Car Transfer (QC): 3 Gait Training Does the Patient Walk?: Yes Gait (FIM): 1 Distance: 10 Walk 10 feet (QC): 4 Walk 50 ft with 2 Turns(QC): 4 Walking 10ft/uneven surface-QC: 3 Gait Level of Assist: 4 (CGA provided due to c/o increased pain and lightheadedness) Gait Persons Needed: 1 Gait Assistive Device: FWW Wheelchair Training Does the Pt Use a Wheelchair?: No Stair Training Stairs (FIM): 1 #of Steps: 1 1 Step (curb) (QC): 3 Level of Assist: 4 Mental Status/Objective Comprehension: 7 Expression: 7 Social Interaction: 7 Problem Solvin Memory: 7 ADL-Treatment Groomin (Pt. is encouraged to brush hair but is only able to swipe a couple of times. OT does this for her.) Bathin (Will need lower body AE.) Bathing Location: L Arm, R Arm, Chest, Abdomen Shower/Bathe Self (QC): 2 Lower Extremity Dressin (Pt. able to doff socks with great effort, but unable to don them. OT does this for her.) Lower Body Dressing (QC): 2 On/Off Footwear (QC): 2 Toiletin (Mod assist overall to doff brief and pull up, as well as cleanse self.) Toileting Hygiene (QC): 3 Toilet/Commode Transfer: 4 Toilet Transfer (QC): 4 Assessment/Plan Assessment and Plan Assess & Plan/Chief Complaint Assessment: Extensive spinal surgery POD # 7 uncomplicated AECOPD Pneumonia Anemia-transfusion required Hyponatremia Hypokalemia Smoker Frail status Constipation-resolved Back pain Plan: Pain control BM regimen Potassium Abx Steroids Venofer Transfusion of 1 unit of blood today (1) JUNCTIONAL KYPHOSIS (2) COPD (chronic obstructive pulmonary disease) (3) Hypokalemia (4) Urinary retention (5) Anemia (6) Atelectasis (7) Hyperlipidemia (8) Hyponatremia (9) Leukocytosis (10) GERD (gastroesophageal reflux disease) (11) Hypertension (12) Pneumonia (13) Lumbar spinal stenosis (14) Oxygen dependent (15) Frailty (16) RESPIRATORY FAILURE, UNSP, UNSP W HYPOXIA OR HYPERCAPNIA (17) Smoker (18) Transfusion of blood during current hospitalization (19) Dyspnea MAGDALENE ANDRES DO July 17, 2018 11:28
[2018-07-17] MEDS ORDERED: NS IV 500 ML 500 ML IV SCH (11:32)
--- NOTE | 2018-07-17 12:01 | Physical Therapy Daily Note ---
PT Daily Note-Current Subjective Patient in bed pre tx, agrees to PT, has 7/10 pain. Is dependent to don brace. Appearance Patient in recliner post tx with nurse call, phone, tray, all needs met. Mental Status Patient Orientation: Person, Place, Situation Attachments: Oxygen, IV Transfers Therapy Code Descriptions/Definitions Functional [place] Measure: 0=Not Assessed/NA 4=Minimal Assistance 1=Total Assistance 5=Supervision or Setup 2=Maximal Assistance 6=Modified [place] 3=Moderate Assistance 7=Complete [place] Therapy Quality Codes: 6 Independent with activity with or without an assistive device 5 Patient requires set up or clean up by helper. Patient completes activity by themselves 4 Supervision or touching assist (CGA). [place] provide cues , steadying assist 3 The helper provides less than half the effort to complete the activity 2 The helper provides more than half the effort to complete the activity 1 Dependent. The helper does all the effort to complete an activity 7 Patient refused to complete or attempt activity 9 The patient did not perform the activity before the current illness or injury 88 Not attempted due to Medical conditions or safety concerns Transfers (B, C, W/C) (FIM): 4 Scootin Rollin Supine to/from Sit: 4 Sit to/from Stand: 4 Occasional cues for hand placement and positioning. Weight Bearing Right Lower Extremity: Right Full Weight Bearing Left Lower Extremity: Left Full Weight Bearing Gait Training Gait (FIM): 2 Distance: 50'x6 Gait Level of Assist: 4 Gait Persons Needed: 1 Gait Assistive Device: FWW CGA, antalgic, some unsteadiness but no LOB, seated rest breaks between to catch breath, cues for purse lip breathing Treatments ambulation, patient also toileted on commode to urinate, min assist Assessment Current Status: Fair Progress improving endurance PT Short Term Goals Short Term Goals Time Frame: July 20, 2018 Transfers (B,C,W/C) (FIM): 4 Gait (FIM): 4 Gait Distance Comment: 150' Gait Level of Assist: 4 Gait Assistive Device: FWW PT Tank Officer Goals Care Home Goals PT Care Home Goals Time Frame: Aug 03, 2018 Transfers (B,C,W/C) (FIM): 5 Sit to Lying (QC): 4 Lying-Sitting on Side/Bed(QC): 4 Sit to Stand (QC): 4 Rollin Roll Left to Right (QC): 4 Chair/Azx-yn-Mphyt Xfer(QC): 4 Car Transfer (QC): 4 Gait (FIM): 5 Distance: 200' Walk 10 feet (QC): 4 Walk 10ft-Uneven Surface(QC): 4 Walk 50ft with 2 Turns (QC): 4 Walk 150 ft (QC): 4 Gait Level of Assist: 5 Gait Assistive Device: FWW Stairs (FIM): 2 # of Steps: 4 1 Step (curb) (QC): 4 4 Steps (QC): 4 Stairs Level Of Assist: 4 PT Plan Problem List Problem List: Activity Tolerance, Functional Strength, Safety, Balance, Gait, Transfer, Bed Mobility, ROM Treatment/Plan Treatment Plan: Continue Plan of Care Treatment Plan: Bed Mobility, Education, Functional Activity French, Functional Strength, Group Therapy, Gait, Safety, Therapeutic Exercise, Transfers Treatment Duration: Aug 03, 2018 Frequency: At least 5 of 7 days/Wk (IRF) Estimated Hrs Per Day: 1.5 hours per day Patient and/or Family Agrees t: Yes Safety Risks/Education Patient Education: Gait Training, Transfer Techniques, Reviewed Precautions, Correct Positioning, Reviewed Don/Doff Brace, Safety Issues Teaching Recipient: Patient Teaching Methods: Demonstration, Discussion Response to Teaching: Reinforcement Needed Time/GCodes Time In: 1115 Time Out: 1200 Total Billed Treatment Time: 45 Total Billed Treatment 1 visit GT 45' NAVID FRIEND PT July 17, 2018 12:01
[2018-07-17 14:05] VITALS: BP 139/73
--- NOTE | 2018-07-17 14:09 | Therapy Group Daily Note ---
Therapy Daily Group Note Patient Education Topic Energy Cons, Other List Below (socialization with recall of Memorial Day events of the past) Exercises LE Seated Exercise, Stretching, UE Exercise Session Ratio (pt:therapist): 4:1 Goal of Session: Education on ARU Expectations, Energy Conservation Tech., Other (list) (Review of ther ex and how energy conservation preserves safety in the home) Goal Met for this Session: Yes Pt Benefit of Group: Contributions to Others, Increased Functional Safety (Increased home safety with decreased fatigue with energy conservation), Increased Functional Strength, Recognition of Peers, Socialization Other/Notes Pt transported via w/c to [facility] for OT/PT group. Group consisted of introductions (name, what traditions do you do for Memorable day), socialization, ARU description, energy conservation techniques, and UE/ LE strengthening ex. Pt introduced self appropriately and actively listened to peers. Pt acknowledged understanding of ARU description. Pt was able to give description of personal memory and contribute to discussion. pt given 2 malagon ndouts on energy conservation. One handout consist of the "4P's" of energy conservation, and second handout is examples of energy conservation within ADLs. pt was able to give examples of how to use these learn techniques within his everyday life. pt then demo ability to roll dice and complete exercises to increase activity tolerance and UE/ LE strength with peer. pt perform against gravity: Hip ADD/ABD, toe raises, elbow flex/ EXT, wrist Flex/ ext, hip flex/ EXt, shoulder flex/ ext, and cervical rotation. pt demo ability to utilized trained energy conservation techniques within task. Pt was interactive with group and seemed to enjoy the conversation with others; however, she was fatigued at end and ready to return to her room. Start Time: 12:30 Stop Time: 13:45 Total Billed Treatment Time: 75 Total Billed Treatment visit GRP 75 MARICEL FERRIS PT July 17, 2018 14:08
--- NOTE | 2018-07-17 14:11 | Occupational Ther Daily Note ---
OT Current Status-Daily Note Subjective Pt. reports 10/10 back pain. Nursing is notified for pain meds. Appearance Pt. in bed. States that she is tired. Declines showering but agrees to sponge bathe. Mental Status/Objective Patient Orientation: Person, Place Therapy Code Descriptions/Definitions Functional [place] Measure: 0=Not Assessed/NA 4=Minimal Assistance 1=Total Assistance 5=Supervision or Setup 2=Maximal Assistance 6=Modified [place] 3=Moderate Assistance 7=Complete [place] Attachments: IV, Oxygen ADL-Treatment Therapy Code Descriptions/Definitions Functional [place] Measure: 0=Not Assessed/NA 4=Minimal Assistance 1=Total Assistance 5=Supervision or Setup 2=Maximal Assistance 6=Modified [place] 3=Moderate Assistance 7=Complete [place] Therapy Quality Codes: 6 Independent with activity with or without an assistive device 5 Patient requires set up or clean up by helper. Patient completes activity by themselves 4 Supervision or touching assist (CGA). [place] provide cues , steadying assist 3 The helper provides less than half the effort to complete the activity 2 The helper provides more than half the effort to complete the activity 1 Dependent. The helper does all the effort to complete an activity 7 Patient refused to complete or attempt activity 9 The patient did not perform the activity before the current illness or injury 88 Not attempted due to Medical conditions or safety concerns Grooming (FIM): 2 (Pt. does attempt to brush hair at bed level, but is unable to do so. OT does this for her.) Bathing (FIM): 4 (Pt. attempts to decline sitting on side of bed due to pain. OT encourages pt. to still move and complete ADL tasks at bed level. Pt. requires assist to wash rear alex area, but is able to wash all other parts in bed after set up.) Shower/Bathe Self (QC): 4 Lower Body Dressing (FIM): 3 (Pt. is able to bring feet up to her while on back to doff socks. Unable to fully don them so OT assists with this. Pt. is able to doff brief while in bed with SBA. Able to don over feet and hips, with min assist only over left hip.) Lower Body Dressing (QC): 3 On/Off Footwear (QC): 3 Due to pain, pt. and OT attempted sponge bath at bed level to see if this allowed increased independence with ADLs. It did overall with increased rest breaks and time in between tasks. After ADLs, pts breakfast arrived. OT assisted with setting up breakfast tray. While pt. eating, OT went over educa tion with pt. for energy conservation with COPD, and with back safety. Pt. verbalizes understanding of this. After this task, all needs are met in room. Education OT Patient Education: Correct positioning, Energy conservation, Modified ADL techniques, Progress toward Goal/Update tx plan, Purpose of tx/functional activities, Reviewed precautions, Rehab process, Safety issues, Transfer techniques, Use of adapted equipment Teaching Recipient: Patient Teaching Methods: Demonstration, Discussion Response to Teaching: Verbalize Understanding, Return Demonstration OT Short Term Goals Short Term Goals Time Frame: July 20, 2018 Eating(FIM): 5 Grooming(FIM): 5 Bathing(FIM): 4 Upper Body Dressing(FIM): 4 Lower Body Dressing(FIM): 4 Toileting(FIM): 4 Transfers (B,C,W/C) (FIM): 4 Toilet/Commode Transfer(FIM): 4 Shower Transfer(FIM): 3 Additional Short Term Goals: 1-Demonstrate ADL Tasks, 2-Verbalize Understanding , 3-ImproveStrength/French 1=Demonstrate adherence to instructed precautions during ADL tasks. 2=Patient will verbalize/demonstrate understanding of assistive devices/modifications for ADL. 3=Patient will improve strength/tolerance for activity to enable patient to perform ADL's. OT Methods Specialist Engineer Goals Methods Specialist Engineer Goals Time Frame: Aug 03, 2018 Eating (FIM): 6 Eating (QC): 6 Groomin Oral Hygiene (QC): 4 Bathing(FIM): 5 Shower/Bathe Self (QC): 4 Upper Body Dressing(FIM): 5 Upper Body Dressing (QC): 4 Lower Body Dressing(FIM): 5 Lower Body Dressing (QC): 4 On/Off Footwear (QC): 4 Toileting(FIM): 6 Toileting Hygiene (QC): 5 Transfers (B,C,W/C) (FIM): 6 Toilet/Commode Transfer(FIM): 6 Toilet/Commode Transfer (QC): 5 Shower Transfer(FIM): 5 Comprehension(FIM): 6 Expression (FIM): 6 Social Interaction(FIM): 6 Problem Solving(FIM): 6 Memory(FIM): 6 Additional Goals: 1-Demonstrate ADL Tasks, 2-Verbalize Understanding, 3- ImproveStrength/French 1=Demonstrate adherence to instructed precautions during ADL tasks. 2=Patient will verbalize/demonstrate understanding of assistive devices/modifications for ADL. 3=Patient will improve strength/tolerance for activity to enable patient to perform ADL's. OT Education/Plan Problem List/Assessment Assessment: Decreased Activ Tolerance, Decreased UE Strength, Dependent Transfers, Impaired Bed Mobility, Impaired Funct Balance, Impaired I ADL's, Impaired Self-Care Skills, Restricted Funct UE ROM Discharge Recommendations Plan/Recommendations: Continue POC Therapy D/C Recommendations: Home w/ Family Support, Occupational Therapy Home Care, Scheduled Assistance Treatment Plan/Plan of Care Treatment,Training & Education: Yes Patient would benefit from OT for education, treatment and training to promote independence in ADL's, mobility, safety and/or upper extremity function for ADL's. Plan of Care: ADL Retraining, Functional Mobility, Group Exercise/Act as Ind, UE Funct Exercise/Act Treatment Duration: Aug 03, 2018 Frequency: At least 5 of 7 days/Wk (IRF) Estimated Hrs Per Day: 1.5 hours per day Agreement: Yes Rehab Potential: Fair Time/GCodes Start Time: 09:25 Stop Time: 10:25 Total Time Billed (hr/min): 60 Billed Treatment Time 1, ADL x 4 LIANNA MARTINEZ OT July 17, 2018 14:11
[2018-07-17 14:22] VITALS: BP 155/67
--- NOTE | 2018-07-17 15:31 | Progress Note-Urology ---
Progress Note-Urology Progress Notes/Assess & Plan Progress/Assessment & Plan VOIDING WELL. PVR 0. START WEANING OFF URECHOLINE Final Diagnosis URINE RETENTION AJAY MACHUCA MD July 17, 2018 15:31
[2018-07-17 16:27] VITALS: BP 149/70
[2018-07-17 16:35] VITALS: BP 149/70
[2018-07-17] MEDS ORDERED: BETHANECHOL 10 MG (URECHOLINE) TAB ONE (18:05)
[2018-07-17] MEDS: TAMSULOSIN 0.4 MG (FLOMAX) CAP PO SCH (18:13)
[2018-07-18] MEDS: methylPREDNISolone 40 MG/ML (Solu-MEDROL) VIAL IV SCH ×5 (00:22→23:38)
[2018-07-18] MEDS: PIPERACILLIN/TAZOBACTAM (BULK) 4.5 GM in NS (IVPB) 100 ML IV SCH ×4 (00:22→23:39)
[2018-07-18] MEDS: CATHETER FLUSH 10 ML SYR IV SCH ×3 (00:22→21:55)
[2018-07-18] MEDS: MULTIVIT W/MINERALS TAB (THERAGRAN M) PO SCH (05:05)
[2018-07-18] MEDS: BETHANECHOL 10 MG (URECHOLINE) TAB PO SCH ×3 (05:05→16:10)
[2018-07-18] MEDS: oxyCODONE/APAP 5/325MG (PERCOCET 5) TABLET PO PRN ×2 (05:06→17:24)
[2018-07-18 05:53] VITALS: BP 162/70
[2018-07-18 06:14] LABS: BASOPHILS % (AUTO) 0 % (0-10); EOSINOPHILS % (AUTO) 0 % (0-10); HEMATOCRIT 29 % (35-52); HEMOGLOBIN 9.8 G/DL (11.5-16.0); LYMPHOCYTES # (AUTO) 1.3 X 10^3 (1.0-4.0); LYMPHOCYTES % (AUTO) 10 % (12-44); MEAN CORPUSCULAR HEMOGLOBIN 31 PG (25-34); MEAN CORPUSCULAR HGB CONC 34 G/DL (32-36); MEAN CORPUSCULAR VOLUME 91 FL (80-99); MEAN PLATELET VOLUME 8.4 FL (7.4-10.4); MONOCYTES # (AUTO) 0.9 X 10^3 (0.0-1.0); MONOCYTES % (AUTO) 7 % (0-12); NEUTROPHILS # (AUTO) 11.3 X 10^3 (1.8-7.8); NEUTROPHILS % (AUTO) 84 % (42-75); PLATELET COUNT 383 10^3/uL (130-400); RED CELL DISTRIBUTION WIDTH 15.2 % (10.0-14.5); WHITE BLOOD COUNT 13.5 10^3/uL (4.3-11.0)
[2018-07-18 06:34] LABS: ALANINE AMINOTRANSFERASE 31 U/L (0-55); ALBUMIN 3.3 GM/DL (3.2-4.5); ALKALINE PHOSPHATASE 58 U/L (40-136); BILIRUBIN,TOTAL 0.5 MG/DL (0.1-1.0); BUN/CREATININE RATIO 24; CALCIUM 8.3 MG/DL (8.5-10.1); CARBON DIOXIDE 24 MMOL/L (21-32); CHLORIDE 105 MMOL/L (98-107); CREATININE SERUM 0.62 MG/DL (0.60-1.30); GFR ESTIMATED > 60; GLUCOSE 132 MG/DL (70-105); POTASSIUM 3.9 MMOL/L (3.6-5.0); SODIUM 136 MMOL/L (135-145); TOTAL PROTEIN 5.8 GM/DL (6.4-8.2)
[2018-07-18] MEDS: RT-ALBUTEROL/IPRATROPIUM 3 ML (DUONEB) VIAL INH SCH ×4 (07:22→19:15)
[2018-07-18] MEDS: POLYETHYLENE GLYCOL 17 GM (MIRALAX) PACK PO SCH ×3 (08:49→20:19)
[2018-07-18] MEDS: SENNA W/DOCUSATE (SENOKOT S) TABLET PO SCH ×2 (08:49→20:19)
[2018-07-18] MEDS: FAMOTIDINE 20 MG (PEPCID) TABLET PO SCH (08:49)
[2018-07-18] MEDS: meTOprolol SUCCINATE 100 MG (TOPROL XL) TAB PO SCH (08:49)
[2018-07-18] MEDS: lisINopril 20 MG (PRINIVIL) TABLET PO SCH (08:49)
[2018-07-18] MEDS: PANTOPRAZOLE 40 MG (PROTONIX) TAB PO SCH (08:49)
[2018-07-18] MEDS: IRON SUCROSE 200 MG/10 ML (VENOFER) VIAL IV SCH (08:50)
--- NOTE | 2018-07-18 08:59 | PM&R Progress Note ---
Subjective HPI/CC On Admission Date Seen by Provider: July 18, 2018 Time Seen by Provider: 09:00 CC: Thoracic lumbar spine surgery HPI: This is a 72yoWF clinic patient of Dr Cancino in [place], [place] know to me from prior spine surgery admits w/h/o severe O2 dependent COPD who continues to smoke who presents to the IRF unit in need of intensive rehab in order to return home with her . Patient is doing ok today just having back pain and a cough. Patient was recently dx with pneumonia and placed on aggressive treatment by Dr Lubin whom his expertise is much appreciated and the patient appreciates his help. No BM for now 4 days post op and that is being addressed more aggressively today. PLOF was independent with ambulation and ADL's. I have reviewed her labs and we are in the midst of correction of her abnormal electr olytes with supplements. Nebs are ordered along with IV antibiotics and IV steroids. Iron with very low along with hemoglobin so will start Venofer. Potassium will be supplemented 20meq PO TID for 3 days Drain is now out. Urinary retention this morning so have consulted Dr Lane for retention. Subjective/Events-last exam Received one unit transfusion yesterday and Hemoglobin is 9.8 and feels much better. Venofer will be continued. Urecholine decreased to TID due to shortness of breath. Overall feels like she is improving but very frail and debilitated. Needs to stop smoking. Checked meds and labs. Overall appears to be slightly improved. Long recovery expected considering the delay of the pneumonia recovery. Conferred with RN Reviewed therapy notes Review of Systems General: Fatigue Pulmonary: Dyspnea Objective Exam Vital Signs Vital Signs Date Time Temp Pulse Resp B/P (MAP) Pulse Ox O2 Delivery O2 Flow Rate FiO2 07/18/18 15:53 98.9 70 18 163/71 (101) 90 07/18/18 14:36 Nasal Cannula 3.50 07/16/18 11:27 34 Capillary Refill : General Appearance: No Apparent Distress, WD/WN, Chronically ill, Thin, Other (improved) HEENT: PERRL/EOMI, TMs Normal, Normal ENT Inspection, Pharynx Normal, Moist Mucous Membranes Neck: Full Range of Motion, Normal Inspection, Non Tender, Supple Respiratory: Chest Non Tender, No Accessory Muscle Use, No Respiratory Distress, Crackles, Decreased Breath Sounds Cardiovascular: Regular Rate, Rhythm, No Edema, No Gallop, No JVD, No Murmur Gastrointestinal: Normal Bowel Sounds, No Organomegaly, No Pulsatile Mass, Non Tender, Soft Back: Decreased Range of Motion Extremity: Other (5/5 motor crow LE, NVSI, wound CDI, drain in place) Neurologic/Psychiatric: Alert, Oriented x3, No Motor/Sensory Deficits, Normal Mood/Affect Skin: Normal Color, Warm/Dry Lymphatic: No Adenopathy Results/Procedures Lab Laboratory Tests 07/18/18 06:05 Patient resulted labs reviewed. FIM Transfers Therapy Code Descriptions/Definitions Functional [place] Measure: 0=Not Assessed/NA 4=Minimal Assistance 1=Total Assistance 5=Supervision or Setup 2=Maximal Assistance 6=Modified [place] 3=Moderate Assistance 7=Complete [place] Therapy Quality Codes: 6 Independent with activity with or without an assistive device 5 Patient requires set up or clean up by helper. Patient completes activity by themselves 4 Supervision or touching assist (CGA). [place] provide cues , steadying assist 3 The helper provides less than half the effort to complete the activity 2 The helper provides more than half the effort to complete the activity 1 Dependent. The helper does all the effort to complete an activity 7 Patient refused to complete or attempt activity 9 The patient did not perform the activity before the current illness or injury 88 Not attempted due to Medical conditions or safety concerns Transfers (B, C, W/C) (FIM): 4 Scootin Rollin Roll Left to Right (QC): 3 Supine to/from Sit: 4 Sit to/from Stand: 4 Sit to Lying (QC): 2 Sit to Stand (QC): 3 Chair/Afz-he-Jcalu Xfer(QC): 3 Bed to/from Chair: 4 Car Transfer (QC): 3 Gait Training Does the Patient Walk?: Yes Gait (FIM): 2 Distance: 50'x6 Walk 10 feet (QC): 4 Walk 50 ft with 2 Turns(QC): 4 Walking 10ft/uneven surface-QC: 3 Gait Level of Assist: 4 Gait Persons Needed: 1 Gait Assistive Device: FWW Wheelchair Training Does the Pt Use a Wheelchair?: No Stair Training Stairs (FIM): 1 #of Steps: 1 1 Step (curb) (QC): 3 Level of Assist: 4 Mental Status/Objective Comprehension: 7 Expression: 7 Social Interaction: 7 Problem Solvin Memory: 7 ADL-Treatment Groomin (Pt. does attempt to brush hair at bed level, but is unable to do so. OT does this for her.) Bathin (Pt. attempts to decline sitting on side of bed due to pain. OT encourages pt. to still move and complete ADL tasks at bed level. Pt. requires assist to wash rear alex area, but is able to wash all other parts in bed after set up.) Bathing Location: L Arm, R Arm, Chest, Abdomen Shower/Bathe Self (QC): 4 Lower Extremity Dressin (Pt. is able to bring feet up to her while on back to doff socks. Unable to fully don them so OT assists with this. Pt. is able to doff brief while in bed with SBA. Able to don over feet and hips, with min assist only over left hip.) Lower Body Dressing (QC): 3 On/Off Footwear (QC): 3 Toiletin (Mod assist overall to doff brief and pull up, as well as cleanse self.) Toileting Hygiene (QC): 3 Toilet/Commode Transfer: 4 Toilet Transfer (QC): 4 Assessment/Plan Assessment and Plan Assess & Plan/Chief Complaint Assessment: Extensive spinal surgery POD # 8 uncomplicated AECOPD Pneumonia Anemia-transfusion required Hyponatremia Hypokalemia Smoker Frail status Constipation-resolved Back pain Plan: Pain control BM regimen Potassium Abx Steroids Venofer Transfusion of 1 unit of blood yesterday (1) JUNCTIONAL KYPHOSIS (2) COPD (chronic obstructive pulmonary disease) (3) Hypokalemia (4) Urinary retention (5) Anemia (6) Atelectasis (7) Hyperlipidemia (8) Hyponatremia (9) Leukocytosis (10) GERD (gastroesophageal reflux disease) (11) Hypertension (12) Pneumonia (13) Lumbar spinal stenosis (14) Oxygen dependent (15) Frailty (16) RESPIRATORY FAILURE, UNSP, UNSP W HYPOXIA OR HYPERCAPNIA (17) Smoker (18) Transfusion of blood during current hospitalization (19) Dyspnea MAGDALENE ANDRES DO July 18, 2018 08:59
--- NOTE | 2018-07-18 10:01 | Occupational Ther Daily Note ---
OT Current Status-Daily Note Subjective Pt alert, lying in bed. Pt c/o fatigue and pain, did not rate. Pt agrees to therapy. Pt is progressing with functional mobility. Mental Status/Objective Patient Orientation: Person, Place, Time, Situation Therapy Code Descriptions/Definitions Functional [place] Measure: 0=Not Assessed/NA 4=Minimal Assistance 1=Total Assistance 5=Supervision or Setup 2=Maximal Assistance 6=Modified [place] 3=Moderate Assistance 7=Complete [place] Attachments: IV, Oxygen (3L) ADL-Treatment Pt declined shower, changing clothing and grooming. Pt able to complete supine <--> EOB by self using HOB slightly raised. SPT from surface to surface, SBA. Assist to don/doff back brace. Therapy Code Descriptions/Definitions Functional [place] Measure: 0=Not Assessed/NA 4=Minimal Assistance 1=Total Assistance 5=Supervision or Setup 2=Maximal Assistance 6=Modified [place] 3=Moderate Assistance 7=Complete [place] Therapy Quality Codes: 6 Independent with activity with or without an assistive device 5 Patient requires set up or clean up by helper. Patient completes activity by themselves 4 Supervision or touching assist (CGA). [place] provide cues , steadying assist 3 The helper provides less than half the effort to complete the activity 2 The helper provides more than half the effort to complete the activity 1 Dependent. The helper does all the effort to complete an activity 7 Patient refused to complete or attempt activity 9 The patient did not perform the activity before the current illness or injury 88 Not attempted due to Medical conditions or safety concerns Other Treatment Pt completed UE tasks to increase strength and activity tolerance for daily functional tasks. Ear Machine Operator strengthening completed then wrist strengthening with 2# wt, 50 pegs for mold puller/pinch and wrist flex/ext 15x's each. Due to decreased activity tolerance, pt required multiple recovery breaks. After therapy, pt lying in bed with call light/phone in reach. Breakfast ordered for pt. All needs met in room. OT Short Term Goals Short Term Goals Time Frame: July 20, 2018 Eating(FIM): 5 Grooming(FIM): 5 Bathing(FIM): 4 Upper Body Dressing(FIM): 4 Lower Body Dressing(FIM): 4 Toileting(FIM): 4 Transfers (B,C,W/C) (FIM): 4 Toilet/Commode Transfer(FIM): 4 Shower Transfer(FIM): 3 Additional Short Term Goals: 1-Demonstrate ADL Tasks, 2-Verbalize Understanding, 3-ImproveStrength/French 1=Demonstrate adherence to instructed precautions during ADL tasks. 2=Patient will verbalize/demonstrate understanding of assistive devices/modif ications for ADL. 3=Patient will improve strength/tolerance for activity to enable patient to perform ADL's. OT Prison Goals Varnish Maker Goals Time Frame: Aug 03, 2018 Eating (FIM): 6 Eating (QC): 6 Groomin Oral Hygiene (QC): 4 Bathing(FIM): 5 Shower/Bathe Self (QC): 4 Upper Body Dressing(FIM): 5 Upper Body Dressing (QC): 4 Lower Body Dressing(FIM): 5 Lower Body Dressing (QC): 4 On/Off Footwear (QC): 4 Toileting(FIM): 6 Toileting Hygiene (QC): 5 Transfers (B,C,W/C) (FIM): 6 Toilet/Commode Transfer(FIM): 6 Toilet/Commode Transfer (QC): 5 Shower Transfer(FIM): 5 Comprehension(FIM): 6 Expression (FIM): 6 Social Interaction(FIM): 6 Problem Solving(FIM): 6 Memory(FIM): 6 Additional Goals: 1-Demonstrate ADL Tasks, 2-Verbalize Understanding, 3- ImproveStrength/French 1=Demonstrate adherence to instructed precautions during ADL tasks. 2=Patient will verbalize/demonstrate understanding of assistive devices/modifications for ADL. 3=Patient will improve strength/tolerance for activity to enable patient to perform ADL's. OT Education/Plan Problem List/Assessment Assessment: Decreased Activ Tolerance, Decreased UE Strength, Impaired Self- Care Skills Discharge Recommendations Plan/Recommendations: Continue POC Treatment Plan/Plan of Care Patient would benefit from OT for education, treatment and training to promote independence in ADL's, mobility, safety and/or upper extremity function for ADL's. Plan of Care: ADL Retraining, Functional Mobility, Group Exercise/Act as Ind, UE Funct Exercise/Act Treatment Duration: Aug 03, 2018 Frequency: At least 5 of 7 days/Wk (IRF) Estimated Hrs Per Day: 1.5 hours per day Agreement: Yes Rehab Potential: Fair Time/GCodes Start Time: 09:00 Stop Time: 10:00 Total Time Billed (hr/min): 60 Billed Treatment Time 1 visit-FA 1 (20 min) EX 3 (40 min) MARICEL HERBERT July 18, 2018 10:01
--- NOTE | 2018-07-18 11:47 | Physical Therapy Daily Note ---
PT Daily Note-Current Subjective Pt. c/o she doesnt feel well and is having more back pain at 7/10. Pt. c/o she cant get her breath jesusita with gait and TRF activity Pain Numeric Pain Scale: 7 Location: Medial Location Body Site: Back Pain Description: Stabbing Appearance pt. dyspneic at 3plus with any activity, O2 sats 87% with portable o2 at 3.5L Mental Status Patient Orientation: Person, Place, Time, Situation, Normal For Age Attachments: Oxygen (3.5L ), Other-See Comments (aspen brace) Transfers Therapy Code Descriptions/Definitions Functional [place] Measure: 0=Not Assessed/NA 4=Minimal Assistance 1=Total Assistance 5=Supervision or Setup 2=Maximal Assistance 6=Modified [place] 3=Moderate Assistance 7=Complete [place] Therapy Quality Codes: 6 Independent with activity with or without an assistive device 5 Patient requires set up or clean up by helper. Patient completes activity by themselves 4 Supervision or touching assist (CGA). [place] provide cues , steadying assist 3 The helper provides less than half the effort to complete the activity 2 The helper provides more than half the effort to complete the activity 1 Dependent. The helper does all the effort to complete an activity 7 Patient refused to complete or attempt activity 9 The patient did not perform the activity before the current illness or injury 88 Not attempted due to Medical conditions or safety concerns Transfers (B, C, W/C) (FIM): 5 Scootin Rollin Supine to/from Sit: 5 Sit to/from Stand: 5 Bed to/from Chair: 5 HOB up slightly for sup to sit, slow and careful sit to stand, SBA Weight Bearing Right Lower Extremity: Right Full Weight Bearing Left Lower Extremity: Left Full Weight Bearing Gait Training Does the Patient Walk?: Yes Gait (FIM): 2 Distance (FIM): 6=990-84 ft (60ftx4) Gait Level of Assist: 5 Gait Persons Needed: 1 Gait Assistive Device: FWW flexed over FWW with c/o increased pain with gait Exercises Supine Ex: Ankle pumps, Quad Set, Rolling, Glut sets, Heel Slides, Scooting, Hip abd/add Supine Reps: 12 Seated Therapy Exercises: Ankle pumps, Long arc quads, Hip abd/add Seated Reps: 10 Assessment Current Status: Fair Progress SOA with activity, wanted to stop Rx several times secondary to SOB and pain in back c/o PT Short Term Goals Short Term Goals Time Frame: July 20, 2018 Transfers (B,C,W/C) (FIM): 4 Gait (FIM): 4 Gait Distance Comment: 150' Gait Level of Assist: 4 Gait Assistive Device: FWW PT Chcf Goals Reporting Consultant Goals PT Chcf Goals Time Frame: Aug 03, 2018 Transfers (B,C,W/C) (FIM): 5 Sit to Lying (QC): 4 Lying-Sitting on Side/Bed(QC): 4 Sit to Stand (QC): 4 Rollin Roll Left to Right (QC): 4 Chair/Uxw-rv-Vbnqi Xfer(QC): 4 Car Transfer (QC): 4 Gait (FIM): 5 Distance: 200' Walk 10 feet (QC): 4 Walk 10ft-Uneven Surface(QC): 4 Walk 50ft with 2 Turns (QC): 4 Walk 150 ft (QC): 4 Gait Level of Assist: 5 Gait Assistive Device: FWW Stairs (FIM): 2 # of Steps: 4 1 Step (curb) (QC): 4 4 Steps (QC): 4 Stairs Level Of Assist: 4 PT Plan Treatment/Plan Treatment Plan: Continue Plan of Care Treatment Plan: Bed Mobility, Education, Functional Activity French, Functional Strength, Group Therapy, Gait, Safety, Therapeutic Exercise, Transfers Treatment Duration: Aug 03, 2018 Frequency: At least 5 of 7 days/Wk (IRF) Estimated Hrs Per Day: 1.5 hours per day Patient and/or Family Agrees t: Yes Safety Risks/Education Patient Education: Gait Training, Transfer Techniques, Correct Positioning, Reviewed Don/Doff Brace, Disease Process, Safety Issues Teaching Recipient: Patient Teaching Methods: Demonstration, Discussion Response to Teaching: Verbalize Understanding, Return Demonstration, Reinforcement Needed Time/GCodes Time In: 1100 Time Out: 1200 Total Billed Treatment Time: 60 Total Billed Treatment 1,GT25m,FA20m,EX15m G Codes Necessary: SOWMYA Kam DISTRIBUTION OPERATION SUPERVISOR July 18, 2018 11:47
--- NOTE | 2018-07-18 13:53 | Occupational Ther Daily Note ---
OT Current Status-Daily Note Subjective Pt alert, lying in bed. Pt agrees to therapy. No c/o pain at this time. C/o of fatigue. Mental Status/Objective Patient Orientation: Person, Place, Time, Situation Therapy Code Descriptions/Definitions Functional [place] Measure: 0=Not Assessed/NA 4=Minimal Assistance 1=Total Assistance 5=Supervision or Setup 2=Maximal Assistance 6=Modified [place] 3=Moderate Assistance 7=Complete [place] Attachments: IV, Oxygen (3L) ADL-Treatment Therapy Code Descriptions/Definitions Functional [place] Measure: 0=Not Assessed/NA 4=Minimal Assistance 1=Total Assistance 5=Supervision or Setup 2=Maximal Assistance 6=Modified [place] 3=Moderate Assistance 7=Complete [place] Therapy Quality Codes: 6 Independent with activity with or without an assistive device 5 Patient requires set up or clean up by helper. Patient completes activity by themselves 4 Supervision or touching assist (CGA). [place] provide cues , steadying assist 3 The helper provides less than half the effort to complete the activity 2 The helper provides more than half the effort to complete the activity 1 Dependent. The helper does all the effort to complete an activity 7 Patient refused to complete or attempt activity 9 The patient did not perform the activity before the current illness or injury 88 Not attempted due to Medical conditions or safety concerns Other Treatment Pt completed UE tasks against gravity to increase activity tolerance and strength for pinch/electric tripper machine operator and UE's. Pt was able to tolerate tasks for [address] therapy, pt sitting on BSC with nrsg present. All needs met in room. OT Short Term Goals Short Term Goals Time Frame: July 20, 2018 Eating(FIM): 5 Grooming(FIM): 5 Bathing(FIM): 4 Upper Body Dressing(FIM): 4 Lower Body Dressing(FIM): 4 Toileting(FIM): 4 Transfers (B,C,W/C) (FIM): 4 Toilet/Commode Transfer(FIM): 4 Shower Transfer(FIM): 3 Additional Short Term Goals: 1-Demonstrate ADL Tasks, 2-Verbalize Understanding, 3-ImproveStrength/French 1=Demonstrate adherence to instructed precautions during ADL tasks. 2=Patient will verbalize/demonstrate understanding of assistive devices/modifications for ADL. 3=Patient will improve strength/tolerance for activity to enable patient to perform ADL's. OT Manufacturing Design Engineer Goals Manufacturing Design Engineer Goals Time Frame: Aug 03, 2018 Eating (FIM): 6 Eating (QC): 6 Groomin Oral Hygiene (QC): 4 Bathing(FIM): 5 Shower/Bathe Self (QC): 4 Upper Body Dressing(FIM): 5 Upper Body Dressing (QC): 4 Lower Body Dressing(FIM): 5 Lower Body Dressing (QC): 4 On/Off Footwear (QC): 4 Toileting(FIM): 6 Toileting Hygiene (QC): 5 Transfers (B,C,W/C) (FIM): 6 Toilet/Commode Transfer(FIM): 6 Toilet/Commode Transfer (QC): 5 Shower Transfer(FIM): 5 Comprehension(FIM): 6 Expression (FIM): 6 Social Interaction(FIM): 6 Problem Solving(FIM): 6 Memory(FIM): 6 Additional Goals: 1-Demonstrate ADL Tasks, 2-Verbalize Understanding, 3-ImproveStrength/French 1=Demonstrate adherence to instructed precautions during ADL tasks. 2=Patient will verbalize/demonstrate understanding of assistive devices/modifications for ADL. 3=Patient will improve strength/tolerance for activity to enable patient to perform ADL's. OT Education/Plan Problem List/Assessment Assessment: Decreased Activ Tolerance, Decreased UE Strength, Impaired Self- Care Skills Discharge Recommendations Plan/Recommendations: Continue POC Treatment Plan/Plan of Care Patient would benefit from OT for education, treatment and training to promote independence in ADL's, mobility, safety and/or upper extremity function for ADL's. Plan of Care: ADL Retraining, Functional Mobility, Group Exercise/Act as Ind, UE Funct Exercise/Act Treatment Duration: Aug 03, 2018 Frequency: At least 5 of 7 days/Wk (IRF) Estimated Hrs Per Day: 1.5 hours per day Agreement: Yes Rehab Potential: Fair Time/GCodes Start Time: 13:00 Stop Time: 13:30 Total Time Billed (hr/min): 30 Billed Treatment Time 1 visit-FA 2 (30 min) MARICEL HERBERT July 18, 2018 13:53
--- NOTE | 2018-07-18 14:37 | Physical Therapy Daily Note ---
PT Daily Note-Current Subjective Pt. states she feels she is breathing a little better but not if she gets up to move around. C/o being so cold. Pain Location: No Pain Reported Mental Status Patient Orientation: Normal For Age Attachments: Oxygen Transfers Therapy Code Descriptions/Definitions Functional [place] Measure: 0=Not Assessed/NA 4=Minimal Assistance 1=Total Assistance 5=Supervision or Setup 2=Maximal Assistance 6=Modified [place] 3=Moderate Assistance 7=Complete [place] Therapy Quality Codes: 6 Independent with activity with or without an assistive device 5 Patient requires set up or clean up by helper. Patient completes activity by themselves 4 Supervision or touching assist (CGA). [place] provide cues , steadying assist 3 The helper provides less than half the effort to complete the activity 2 The helper provides more than half the effort to complete the activity 1 Dependent. The helper does all the effort to complete an activity 7 Patient refused to complete or attempt activity 9 The patient did not perform the activity before the current illness or injury 88 Not attempted due to Medical conditions or safety concerns rolling left and right x 3 indep, scooting up in bed min assist Weight Bearing Right Lower Extremity: Right Full Weight Bearing Left Lower Extremity: Left Full Weight Bearing Exercises Supine Ex: Ankle pumps, Quad Set, Rolling, Glut sets, Heel Slides, Short Arc Quads, Scooting, Hip abd/add Supine Reps: 12 (x2) Assessment Current Status: Fair Progress dyspnea impedes activity PT Short Term Goals Short Term Goals Time Frame: July 20, 2018 Transfers (B,C,W/C) (FIM): 4 Gait (FIM): 4 Gait Distance Comment: 150' Gait Level of Assist: 4 Gait Assistive Device: FWW PT Assisted Goals Assisted Goals PT Slip Laster Goals Time Frame: Aug 03, 2018 Transfers (B,C,W/C) (FIM): 5 Sit to Lying (QC): 4 Lying-Sitting on Side/Bed(QC): 4 Sit to Stand (QC): 4 Rollin Roll Left to Right (QC): 4 Chair/Tgk-nj-Mrbmi Xfer(QC): 4 Car Transfer (QC): 4 Gait (FIM): 5 Distance: 200' Walk 10 feet (QC): 4 Walk 10ft-Uneven Surface(QC): 4 Walk 50ft with 2 Turns (QC): 4 Walk 150 ft (QC): 4 Gait Level of Assist: 5 Gait Assistive Device: FWW Stairs (FIM): 2 # of Steps: 4 1 Step (curb) (QC): 4 4 Steps (QC): 4 Stairs Level Of Assist: 4 PT Plan Treatment/Plan Treatment Plan: Continue Plan of Care Treatment Plan: Bed Mobility, Education, Functional Activity French, Functional Strength, Group Therapy, Gait, Safety, Therapeutic Exercise, Transfers Treatment Duration: Aug 03, 2018 Frequency: At least 5 of 7 days/Wk (IRF) Estimated Hrs Per Day: 1.5 hours per day Patient and/or Family Agrees t: Yes Safety Risks/Education Patient Education: Correct Positioning, Disease Process, Safety Issues Teaching Recipient: Patient Teaching Methods: Demonstration, Discussion Response to Teaching: Verbalize Understanding, Return Demonstration, Reinforcement Needed Time/GCodes Time In: 1405 Time Out: 1435 Total Billed Treatment Time: 30 Total Billed Treatment 1,FA8,EX22 G Codes Necessary: SOWMYA Kam POWER DISTRIBUTOR July 18, 2018 14:37
[2018-07-18 15:53] VITALS: BP 163/71
--- NOTE | 2018-07-18 16:07 | NUR ---
Dr. Lubin here to see patient.
--- NOTE | 2018-07-18 16:30 | Pulmonary Progress Note ---
Subjective Time Seen by a Provider: 16:30 Subjective/Events-last exam Complains of SOB worse with exertion. Sepsis Event Evaluation Height, Weight, BMI Height: 5'2.00" Weight: 131lbs. 8.0oz. [id number]; 24.1 BMI Method: Exam Exam Vital Signs Date Time Temp Pulse Resp B/P (MAP) Pulse Ox O2 Delivery O2 Flow Rate FiO2 07/18/18 15:53 98.9 70 18 163/71 (101) 90 07/18/18 14:36 96 Nasal Cannula 3.50 07/18/18 10:34 96 Nasal Cannula 3.50 07/18/18 09:47 Nasal Cannula 3.50 07/18/18 07:24 93 Nasal Cannula 3.50 07/18/18 05:53 97.8 67 20 162/70 (100) 93 Nasal Cannula 3.50 07/17/18 20:09 Nasal Cannula 3.50 07/17/18 19:14 91 Nasal Cannula 3.50 07/17/18 16:35 97.7 74 16 149/70 (96) 96 Nasal Cannula 3.50 I & O 07/18/18 07:00 Intake Total 940 ml Balance 940 ml Height & Weight Height: 5'2.00" Weight: 131lbs. 8.0oz. 59.857483ke; 24.1 BMI Method: General Appearance: No Apparent Distress, WD/WN, Chronically ill, Thin, Other (improved) HEENT: PERRL/EOMI, TMs Normal, Normal ENT Inspection, Pharynx Normal, Moist Mucous Membranes Neck: Full Range of Motion, Normal Inspection, Non Tender, Supple Respiratory: Chest Non Tender, No Accessory Muscle Use, No Respiratory Distress, Crackles, Decreased Breath Sounds Cardiovascular: Regular Rate, Rhythm, No Edema, No Gallop, No JVD, No Murmur Gastrointestinal: normal bowel sounds, non tender, soft Extremity: Normal Capillary Refill, Normal Inspection, Other (5/5 motor crow LE, NVSI, wound CDI, drain in place) Neurologic/Psychiatric: Alert, Oriented x3, No Motor/Sensory Deficits, Normal Mood/Affect Skin: Normal Color, Warm/Dry Lymphatic: No Adenopathy Results Lab Laboratory Tests 07/17/18 05:40 07/18/18 06:05 Assessment/Plan Assessment/Plan s/p thoracolumbar fusion Chronic COPD - Pt is on 3 liters of oxygen at home -SVNS -Monitor -Start Advair Leukocytosis r/o infection -Leal culture -Zosyn and await cultures Hyponatremia -Monitor Atelectasis r/o PNA -IS Anemia - post op -S/P 1 unit of PRBC -Monitor FELICIA LOPEZ DO July 18, 2018 16:30
[2018-07-18] MEDS: TAMSULOSIN 0.4 MG (FLOMAX) CAP PO SCH (17:08)
[2018-07-18] MEDS: RT-ADVAIR HFA 115/21 MCG PER PUFF IH SCH (19:15)
[2018-07-19] MEDS: BETHANECHOL 10 MG (URECHOLINE) TAB PO SCH ×3 (05:36→16:20)
[2018-07-19] MEDS: MULTIVIT W/MINERALS TAB (THERAGRAN M) PO SCH (05:36)
[2018-07-19] MEDS: CATHETER FLUSH 10 ML SYR IV SCH ×3 (05:36→23:20)
[2018-07-19] MEDS: methylPREDNISolone 40 MG/ML (Solu-MEDROL) VIAL IV SCH (05:36)
[2018-07-19 06:00] VITALS: BP 165/71
[2018-07-19] MEDS: RT-ALBUTEROL/IPRATROPIUM 3 ML (DUONEB) VIAL INH SCH ×4 (06:57→19:01)
[2018-07-19] MEDS: PIPERACILLIN/TAZOBACTAM (BULK) 4.5 GM in NS (IVPB) 100 ML IV SCH ×2 (08:12→16:20)
--- NOTE | 2018-07-19 09:03 | PM&R Progress Note ---
Subjective HPI/CC On Admission Date Seen by Provider: July 19, 2018 Time Seen by Provider: 09:00 CC: Thoracic lumbar spine surgery HPI: This is a 72yoWF clinic patient of Dr Cancino in [place], [place] know to me from prior spine surgery admits w/h/o severe O2 dependent COPD who continues to smoke who presents to the IRF unit in need of intensive rehab in order to return home with her . Patient is doing ok today just having back pain and a cough. Patient was recently dx with pneumonia and placed on aggressive treatment by Dr Lubin whom his expertise is much appreciated and the patient appreciates his help. No BM for now 4 days post op and that is being addressed more aggressively today. PLOF was independent with ambulation and ADL's. I have reviewed her labs and we are in the midst of correction of her abnormal electr olytes with supplements. Nebs are ordered along with IV antibiotics and IV steroids. Iron with very low along with hemoglobin so will start Venofer. Potassium will be supplemented 20meq PO TID for 3 days Drain is now out. Urinary retention this morning so have consulted Dr Lane for retention. Subjective/Events-last exam Very dyspneic on exertion Decreasing steroids per Dr. Lubin and antibiotics will be completed Hgb 9.8 Labs ordered and that included a chest xray, BNP and ABG per Dr. Lubin and I reviewed all of those results Pt reports she does ambulate but takes a lot of breaks due to SOB OT reports ADLs have some work to do and she has decreased motivation Conferred with RN Reviewed therapy notes Prognosis guarded Review of Systems General: Fatigue Pulmonary: Dyspnea Musculoskeletal: back pain Objective Exam Vital Signs Vital Signs Date Time Temp Pulse Resp B/P (MAP) Pulse Ox O2 Delivery O2 Flow Rate FiO2 07/19/18 19:02 94 Nasal Cannula 3.50 07/19/18 17:20 99.2 76 18 162/74 (103) 07/19/18 07:07 34 Capillary Refill : General Appearance: No Apparent Distress, WD/WN, Chronically ill, Thin, Other (improved) HEENT: PERRL/EOMI, TMs Normal, Normal ENT Inspection, Pharynx Normal, Moist Mucous Membranes Neck: Full Range of Motion, Normal Inspection, Non Tender, Supple Respiratory: Chest Non Tender, No Accessory Muscle Use, No Respiratory Distress, Crackles, Decreased Breath Sounds Cardiovascular: Regular Rate, Rhythm, No Edema, No Gallop, No JVD, No Murmur Gastrointestinal: Normal Bowel Sounds, No Organomegaly, No Pulsatile Mass, Non Tender, Soft Back: Decreased Range of Motion Extremity: Normal Capillary Refill, Normal Inspection, Other (5/5 motor crow LE, NVSI, wound CDI, drain in place) Neurologic/Psychiatric: Alert, Oriented x3, No Motor/Sensory Deficits, Normal Mood/Affect Skin: Normal Color, Warm/Dry Lymphatic: No Adenopathy Results/Procedures Lab Laboratory Tests 07/19/18 12:40 Patient resulted labs reviewed. FIM Transfers Therapy Code Descriptions/Definitions Functional [place] Measure: 0=Not Assessed/NA 4=Minimal Assistance 1=Total Assistance 5=Supervision or Setup 2=Maximal Assistance 6=Modified [place] 3=Moderate Assistance 7=Complete [place] Therapy Quality Codes: 6 Independent with activity with or without an assistive device 5 Patient requires set up or clean up by helper. Patient completes activity by themselves 4 Supervision or touching assist (CGA). [employer] provide cues , steadying assist 3 The helper provides less than half the effort to complete the activity 2 The helper provides more than half the effort to complete the activity 1 Dependent. The helper does all the effort to complete an activity 7 Patient refused to complete or attempt activity 9 The patient did not perform the activity before the current illness or injury 88 Not attempted due to Medical conditions or safety concerns Transfers (B, C, W/C) (FIM): 5 Scootin Rollin Roll Left to Right (QC): 3 Supine to/from Sit: 5 Sit to/from Stand: 5 Sit to Lying (QC): 2 Sit to Stand (QC): 3 Chair/Jbc-eh-Hizwg Xfer(QC): 3 Bed to/from Chair: 5 Car Transfer (QC): 3 Gait Training Does the Patient Walk?: Yes Gait (FIM): 2 Distance (FIM): 8=802-68 ft Distance: 50'x6 Walk 10 feet (QC): 4 Walk 50 ft with 2 Turns(QC): 4 Walking 10ft/uneven surface-QC: 3 Gait Level of Assist: 5 Gait Persons Needed: 1 Gait Assistive Device: FWW Wheelchair Training Does the Pt Use a Wheelchair?: No Stair Training Stairs (FIM): 1 #of Steps: 1 1 Step (curb) (QC): 3 Level of Assist: 4 Mental Status/Objective Comprehension: 7 Expression: 7 Social Interaction: 7 Problem Solvin Memory: 7 ADL-Treatment Groomin (Pt. does attempt to brush hair at bed level, but is unable to do so. OT does this for her.) Bathin (Pt. attempts to decline sitting on side of bed due to pain. OT encourages pt. to still move and complete ADL tasks at bed level. Pt. requires assist to wash rear alex area, but is able to wash all other parts in bed after set up.) Bathing Location: L Arm, R Arm, Chest, Abdomen Shower/Bathe Self (QC): 4 Lower Extremity Dressin (Pt. is able to bring feet up to her while on back to doff socks. Unable to fully don them so OT assists with this. Pt. is able to doff brief while in bed with SBA. Able to don over feet and hips, with min assist only over left hip.) Lower Body Dressing (QC): 3 On/Off Footwear (QC): 3 Toiletin (Mod assist overall to doff brief and pull up, as well as cleanse self.) Toileting Hygiene (QC): 3 Toilet/Commode Transfer: 4 Toilet Transfer (QC): 4 Assessment/Plan Assessment and Plan Assess & Plan/Chief Complaint Assessment: Extensive spinal surgery POD # 9 uncomplicated AECOPD Pneumonia Anemia-transfusion required Hyponatremia Hypokalemia Smoker Frail status Constipation-resolved Back pain Plan: Pain control BM regimen Potassium Abx Steroids Venofer Transfusion of 1 unit of blood 2 days ago Very guarded prognosis given the severity of her COPD and recent pneumonia (1) JUNCTIONAL KYPHOSIS (2) COPD (chronic obstructive pulmonary disease) (3) Hypokalemia (4) Urinary retention (5) Anemia (6) Atelectasis (7) Hyperlipidemia (8) Hyponatremia (9) Leukocytosis (10) GERD (gastroesophageal reflux disease) (11) Hypertension (12) Pneumonia (13) Lumbar spinal stenosis (14) Oxygen dependent (15) Frailty (16) RESPIRATORY FAILURE, UNSP, UNSP W HYPOXIA OR HYPERCAPNIA (17) Smoker (18) Transfusion of blood during current hospitalization (19) Dyspnea MAGDALENE ANDRES DO July 19, 2018 09:03
[2018-07-19] MEDS: SENNA W/DOCUSATE (SENOKOT S) TABLET PO SCH ×2 (09:25→21:23)
[2018-07-19] MEDS: PANTOPRAZOLE 40 MG (PROTONIX) TAB PO SCH (09:25)
[2018-07-19] MEDS: meTOprolol SUCCINATE 100 MG (TOPROL XL) TAB PO SCH (09:25)
[2018-07-19] MEDS: lisINopril 20 MG (PRINIVIL) TABLET PO SCH (09:25)
[2018-07-19] MEDS: FAMOTIDINE 20 MG (PEPCID) TABLET PO SCH (09:25)
--- NOTE | 2018-07-19 09:30 | Occupational Ther Daily Note ---
OT Current Status-Daily Note Subjective Pt lying in bed, alert. Pt states that she is in pain, 5-6/10. Pt then states that "she is working on a discharge date and that (the pt) has [facility] already and she will be able to have people there to take care of her. LENORA discussed with pt that due to her pain and progress that she may stay longer because of her needs. Pt agrees to therapy. Mental Status/Objective Patient Orientation: Person, Place, Time, Situation Therapy Code Descriptions/Definitions Functional [place] Measure: 0=Not Assessed/NA 4=Minimal Assistance 1=Total Assistance 5=Supervision or Setup 2=Maximal Assistance 6=Modified [place] 3=Moderate Assistance 7=Complete [place] Attachments: IV, Oxygen (3L) ADL-Treatment Pt declines shower or dressing. Pt stated that she didn't want to dress because the hospital gown was more comfortable. Declined completing grooming. Agrees to sponge bath in bed. Pt set up for sponge bath and completed upper body and LE's. Pt stated that she already cleaned up early in morning for alex area and buttocks. Pt donned/doffed sock lying in bed and bringing feet up. Pt used [facility] for toileting. CGA to manipulate clothing and cleansed self sitting on toilet. Pt able to go supine <--> EOB by self. Therapy Code Descriptions/Definitions Functional [place] Measure: 0=Not Assessed/NA 4=Minimal Assistance 1=Total Assistance 5=Supervision or Setup 2=Maximal Assistance 6=Modified [place] 3=Moderate Assistance 7=Complete [place] Therapy Quality Codes: 6 Independent with activity with or without an assistive device 5 Patient requires set up or clean up by helper. Patient completes activity by themselves 4 Supervision or touching assist (CGA). [place] provide cues , steadying assist 3 The helper provides less than half the effort to complete the activity 2 The helper provides more than half the effort to complete the activity 1 Dependent. The helper does all the effort to complete an activity 7 Patient refused to complete or attempt activity 9 The patient did not perform the activity before the current illness or injury 88 Not attempted due to Medical conditions or safety concerns Bathing (FIM): 4 Bathing Location: L Arm, R Arm, L Upper Leg, R Upper Leg, L Lower Leg (including foot), R Lower Leg (including foot), Chest, Abdomen On/Off Footwear (QC): 6 Toileting (FIM): 4 Toileting Hygiene (QC): 4 Transfers (B, C, W/C) (FIM): 4 Toilet/Commode Transfer (FIM): 4 Toilet Transfer (QC): 4 Other Treatment Pt completed arm bike to increase strength and activity tolerance for daily functional tasks, 8 min with no resistance and 2 recovery breaks. After therapy, pt sitting in recliner with call light/phone in reach. All needs met in room. OT Short Term Goals Short Term Goals Time Frame: July 20, 2018 Eating(FIM): 5 Grooming(FIM): 5 Bathing(FIM): 4 Upper Body Dressing(FIM): 4 Lower Body Dressing(FIM): 4 Toileting(FIM): 4 Transfers (B,C,W/C) (FIM): 4 Toilet/Commode Transfer(FIM): 4 Shower Transfer(FIM): 3 Additional Short Term Goals: 1-Demonstrate ADL Tasks, 2-Verbalize Understanding, 3-ImproveStrength/French 1=Demonstrate adherence to instructed precautions during ADL tasks. 2=Patient will verbalize/demonstrate understanding of assistive devices/modifications for ADL. 3=Patient will improve strength/tolerance for activity to enable patient to perform ADL's. OT Otm Consultant Goals Otm Consultant Goals Time Frame: Aug 03, 2018 Eating (FIM): 6 Eating (QC): 6 Groomin Oral Hygiene (QC): 4 Bathing(FIM): 5 Shower/Bathe Self (QC): 4 Upper Body Dressing(FIM): 5 Upper Body Dressing (QC): 4 Lower Body Dressing(FIM): 5 Lower Body Dressing (QC): 4 On/Off Footwear (QC): 4 Toileting(FIM): 6 Toileting Hygiene (QC): 5 Transfers (B,C,W/C) (FIM): 6 Toilet/Commode Transfer(FIM): 6 Toilet/Commode Transfer (QC): 5 Shower Transfer(FIM): 5 Comprehension(FIM): 6 Expression (FIM): 6 Social Interaction(FIM): 6 Problem Solving(FIM): 6 Memory(FIM): 6 Additional Goals: 1-Demonstrate ADL Tasks, 2-Verbalize Understanding, 3-ImproveStrength/French 1=Demonstrate adherence to instructed precautions during ADL tasks. 2=Patient will verbalize/demonstrate understanding of assistive devices/modifications for ADL. 3=Patient will improve strength/tolerance for activity to enable patient to perform ADL's. OT Education/Plan Problem List/Assessment Assessment: Decreased Activ Tolerance, Decreased UE Strength, Impaired Funct Balance, Impaired Self-Care Skills Discharge Recommendations Plan/Recommendations: Continue POC Treatment Plan/Plan of Care Patient would benefit from OT for education, treatment and training to promote independence in ADL's, mobility, safety and/or upper extremity function for ADL's. Plan of Care: ADL Retraining, Functional Mobility, Group Exercise/Act as Ind, UE Funct Exercise/Act Treatment Duration: Aug 03, 2018 Frequency: At least 5 of 7 days/Wk (IRF) Estimated Hrs Per Day: 1.5 hours per day Agreement: Yes Rehab Potential: Fair Time/GCodes Start Time: 09:00 Stop Time: 10:00 Total Time Billed (hr/min): 60 Billed Treatment Time 1 visit-ADL 3 (50 min) EX 1 (10 min) MARICEL HERBERT July 19, 2018 09:30
[2018-07-19] MEDS: RT-ADVAIR HFA 115/21 MCG PER PUFF IH SCH ×2 (10:08→19:02)
--- NOTE | 2018-07-19 12:01 | Physical Therapy Daily Note ---
PT Daily Note-Current Subjective C/o dyspnea at 4plus/5 with any activity. Pt. resists up in chair, claims she has no appetite as she is too SOA. Pain Location: No Pain Reported Comment: pt does not mention pain, but talks about SOB Mental Status Patient Orientation: Normal For Age Attachments: Oxygen (3.5) Transfers Therapy Code Descriptions/Definitions Functional [place] Measure: 0=Not Assessed/NA 4=Minimal Assistance 1=Total Assistance 5=Supervision or Setup 2=Maximal Assistance 6=Modified [place] 3=Moderate Assistance 7=Complete [place] Therapy Quality Codes: 6 Independent with activity with or without an assistive device 5 Patient requires set up or clean up by helper. Patient completes activity by themselves 4 Supervision or touching assist (CGA). [employer] provide cues , steadying assist 3 The helper provides less than half the effort to complete the activity 2 The helper provides more than half the effort to complete the activity 1 Dependent. The helper does all the effort to complete an activity 7 Patient refused to complete or attempt activity 9 The patient did not perform the activity before the current illness or injury 88 Not attempted due to Medical conditions or safety concerns Transfers (B, C, W/C) (FIM): 5 Scootin Rollin Supine to/from Sit: 6 Sit to/from Stand: 6 Bed to/from Chair: 5 Weight Bearing Right Lower Extremity: Right Full Weight Bearing Left Lower Extremity: Left Full Weight Bearing Gait Training Gait (FIM): 2 Distance (FIM): 8=876-57 ft (50,53x2) Gait Level of Assist: 4 Gait Persons Needed: 1 Gait Assistive Device: FWW extreme dyspnea during gait , sats 88% with quick recovery however dyspnea at 3plus Exercises Supine Ex: Ankle pumps, Quad Set, Rolling, Glut sets, Scooting, Hip abd/add Supine Reps: 12 Seated Therapy Exercises: Ankle pumps, Sit to stand, Long arc quads, Hip flexion, Hip abd/add Seated Reps: 12 Treatments very dyspneic during Rx, discussed this pt. with nursing as she gets very SOB, cant tolerate eating and hs to lay on her side for relief but sats at 3.5 L O2 are 88-90% with activity, >90% at rest. gait with extendedO2 tubing in and around room and to bathroom with dyspnea noted at 3-4 Assessment Current Status: Fair Progress limited funct mob secondary to PT Short Term Goals Short Term Goals Time Frame: July 20, 2018 Transfers (B,C,W/C) (FIM): 4 Gait (FIM): 4 Gait Distance Comment: 150' Gait Level of Assist: 4 Gait Assistive Device: FWW PT Skilled Nursing Goals Case Liner Goals PT Case Liner Goals Time Frame: Aug 03, 2018 Transfers (B,C,W/C) (FIM): 5 Gait (FIM): 5 Distance: 200' Gait Level of Assist: 5 Gait Assistive Device: FWW Stairs (FIM): 2 # of Steps: 4 Stairs Level Of Assist: 4 PT Plan Treatment/Plan Treatment Plan: Continue Plan of Care Treatment Plan: Bed Mobility, Education, Functional Activity French, Functional Strength, Group Therapy, Gait, Safety, Therapeutic Exercise, Transfers Treatment Duration: Aug 03, 2018 Frequency: At least 5 of 7 days/Wk (IRF) Estimated Hrs Per Day: 1.5 hours per day Patient and/or Family Agrees t: Yes Safety Risks/Education Patient Education: Gait Training, Transfer Techniques, Correct Positioning, Reviewed Don/Doff Brace, Disease Process, Safety Issues Teaching Recipient: Patient Teaching Methods: Demonstration, Discussion Response to Teaching: Verbalize Understanding, Return Demonstration, Reinforcement Needed Time/GCodes Time In: 1110 Time Out: 1210 Total Billed Treatment Time: 60 Total Billed Treatment 1,GRP G Codes Necessary: SOWMYA Kam ELECTRONIC TECHNOLOGIST July 19, 2018 12:01
[2018-07-19 12:50] LABS: BASOPHILS % (AUTO) 0 % (0-10); EOSINOPHILS % (AUTO) 0 % (0-10); HEMATOCRIT 33 % (35-52); HEMOGLOBIN 11.1 G/DL (11.5-16.0); LYMPHOCYTES # (AUTO) 1.5 X 10^3 (1.0-4.0); LYMPHOCYTES % (AUTO) 11 % (12-44); MEAN CORPUSCULAR HEMOGLOBIN 31 PG (25-34); MEAN CORPUSCULAR HGB CONC 34 G/DL (32-36); MEAN CORPUSCULAR VOLUME 92 FL (80-99); MEAN PLATELET VOLUME 8.1 FL (7.4-10.4); MONOCYTES # (AUTO) 1.2 X 10^3 (0.0-1.0); MONOCYTES % (AUTO) 9 % (0-12); NEUTROPHILS # (AUTO) 11.3 X 10^3 (1.8-7.8); NEUTROPHILS % (AUTO) 81 % (42-75); PLATELET COUNT 464 10^3/uL (130-400); RED CELL DISTRIBUTION WIDTH 16.2 % (10.0-14.5)
[2018-07-19 13:13] LABS: ALANINE AMINOTRANSFERASE 35 U/L (0-55); ALBUMIN 3.5 GM/DL (3.2-4.5); ALKALINE PHOSPHATASE 57 U/L (40-136); BILIRUBIN,TOTAL 0.4 MG/DL (0.1-1.0); BUN/CREATININE RATIO 18; CALCIUM 8.5 MG/DL (8.5-10.1); CARBON DIOXIDE 23 MMOL/L (21-32); CHLORIDE 104 MMOL/L (98-107); CREATININE SERUM 0.79 MG/DL (0.60-1.30); GFR ESTIMATED > 60; GLUCOSE 191 MG/DL (70-105); PHOSPHORUS 2.4 MG/DL (2.3-4.7); POTASSIUM 3.4 MMOL/L (3.6-5.0); SODIUM 139 MMOL/L (135-145)
[2018-07-19 13:28] LABS: ANISOCYTOSIS SLIGHT; BAND NEUTROPHILS 5 %; LYMPHOCYTES % (MANUAL) 14 %; MONOCYTES % (MANUAL) 11 %; NEUTROPHILS % (MANUAL) 70 %; POIKILOCYTOSIS SLIGHT; POLYCHROMASIA SLIGHT
--- NOTE | 2018-07-19 15:04 | Therapy Group Daily Note ---
Therapy Daily Group Note Patient Education Topic Other List Below (balance/fall) Exercises LE Seated Exercise, UE Exercise Session Ratio (pt:therapist): 4:1 Goal of Session: Education on ARU Expectations, Home Safety Strategies, Safety with Transfers Goal Met for this Session: Yes Pt Benefit of Group: Contributions to Others, F/U Use of Strategies @Home, Increased Functional Safety, Increased Functional Strength, Improved Cognition, Recognition of Peers, Socialization Other/Notes Pt transported via w/c to <--> from OT/PT group. Group consisted of introductions (name, place born, 1st car), socialization, education on balance/fall prevention, ARU Tuesday meeting and UE/LE seated exercises. Pt introduced self appropriately and actively listened to peers. Pt able to complete exercises to strengthen core, UE and LE's. Pt was able to verbalize understanding of topics introduced to group and give personal stories/strategies. After therapy, requested to use toilet then go to bed. Call light/phone in reach. All needs met in room. Start Time: 13:00 Stop Time: 14:15 Total Billed Treatment Time: 75 Total Billed Treatment 1-GRP MARICEL HERBERT July 19, 2018 15:04
[2018-07-19] MEDS: oxyCODONE/APAP 5/325MG (PERCOCET 5) TABLET PO PRN ×2 (16:20→21:22)
[2018-07-19 17:20] VITALS: BP 162/74
[2018-07-19] MEDS: TAMSULOSIN 0.4 MG (FLOMAX) CAP PO SCH (17:42)
--- NOTE | 2018-07-19 18:37 | Diagnostic Imaging Report ---
INDICATION: Shortness of breath. COMPARISON: Comparison made with prior examination 07/12/2018. FINDINGS: Heart size is normal. There is bibasilar atelectasis and/or pneumonitis. There is small bilateral pleural effusions. There is no pneumothorax. Mediastinum is unremarkable. There are postsurgical changes in the spine. IMPRESSION: Elevation of right hemidiaphragm and some bibasilar atelectasis and/or pneumonitis and small bilateral pleural effusions. Dictated by: Dictated on workstation # [id number]
[2018-07-19] MEDS: POLYETHYLENE GLYCOL 17 GM (MIRALAX) PACK PO SCH (21:22)
[2018-07-20] MEDS: CATHETER FLUSH 10 ML SYR IV SCH ×3 (05:56→20:51)
[2018-07-20] MEDS: MULTIVIT W/MINERALS TAB (THERAGRAN M) PO SCH (05:56)
[2018-07-20] MEDS: BETHANECHOL 10 MG (URECHOLINE) TAB PO SCH ×3 (05:56→16:46)
[2018-07-20 06:17] VITALS: BP 132/69
[2018-07-20] MEDS: RT-ADVAIR HFA 115/21 MCG PER PUFF IH SCH ×2 (06:44→20:32)
[2018-07-20] MEDS: RT-ALBUTEROL/IPRATROPIUM 3 ML (DUONEB) VIAL INH SCH ×4 (06:44→20:32)
--- NOTE | 2018-07-20 08:09 | PM&R Progress Note ---
Subjective HPI/CC On Admission Date Seen by Provider: July 20, 2018 Time Seen by Provider: 08:15 CC: Thoracic lumbar spine surgery HPI: This is a 72yoWF clinic patient of Dr Cancino in [place], [place] know to me from prior spine surgery admits w/h/o severe O2 dependent COPD who continues to smoke who presents to the IRF unit in need of intensive rehab in order to return home with her . Patient is doing ok today just having back pain and a cough. Patient was recently dx with pneumonia and placed on aggressive treatment by Dr Lubin whom his expertise is much appreciated and the patient appreciates his help. No BM for now 4 days post op and that is being addressed more aggressively today. PLOF was independent with ambulation and ADL's. I have reviewed her labs and we are in the midst of correction of her abnormal el ectrolytes with supplements. Nebs are ordered along with IV antibiotics and IV steroids. Iron with very low along with hemoglobin so will start Venofer. Potassium will be supplemented 20meq PO TID for 3 days Drain is now out. Urinary retention this morning so have consulted Dr Lane for retention. Subjective/Events-last exam Pt is much improved today after a good sleep and a nap yesterday BNP elevated so will consult Dr. Tammi Hart Zosyn today Venofer will be maintained for iron deficiency anemia Received transfusion three days ago and has really responded Her sister is visiting today Participating in all therapy Reviewed therapy notes Prognosis guarded Review of Systems Pulmonary: Dyspnea Musculoskeletal: back pain Objective Exam Vital Signs Vital Signs Date Time Temp Pulse Resp B/P (MAP) Pulse Ox O2 Delivery O2 Flow Rate FiO2 07/20/18 20:32 94 Nasal Cannula 3.50 07/20/18 15:57 97.6 67 16 157/74 (101) 07/19/18 07:07 34 Capillary Refill : General Appearance: No Apparent Distress, WD/WN, Chronically ill, Thin, Other (improved) HEENT: PERRL/EOMI, TMs Normal, Normal ENT Inspection, Pharynx Normal, Moist Mucous Membranes Neck: Full Range of Motion, Normal Inspection, Non Tender, Supple Respiratory: Chest Non Tender, No Accessory Muscle Use, No Respiratory Distres s, Crackles, Decreased Breath Sounds Cardiovascular: Regular Rate, Rhythm, No Edema, No Gallop, No JVD, No Murmur Gastrointestinal: Normal Bowel Sounds, No Organomegaly, No Pulsatile Mass, Non Tender, Soft Back: Decreased Range of Motion Extremity: Normal Capillary Refill, Normal Inspection, Other (5/5 motor crow LE, NVSI, wound CDI, drain in place) Neurologic/Psychiatric: Alert, Oriented x3, No Motor/Sensory Deficits, Normal Mood/Affect Skin: Normal Color, Warm/Dry Lymphatic: No Adenopathy Results/Procedures Lab Patient resulted labs reviewed. FIM Transfers Therapy Code Descriptions/Definitions Functional [place] Measure: 0=Not Assessed/NA 4=Minimal Assistance 1=Total Assistance 5=Supervision or Setup 2=Maximal Assistance 6=Modified [place] 3=Moderate Assistance 7=Complete [place] Therapy Quality Codes: 6 Independent with activity with or without an assistive device 5 Patient requires set up or clean up by helper. Patient completes activity by themselves 4 Supervision or touching assist (CGA). [place] provide cues , steadying gabrielle t 3 The helper provides less than half the effort to complete the activity 2 The helper provides more than half the effort to complete the activity 1 Dependent. The helper does all the effort to complete an activity 7 Patient refused to complete or attempt activity 9 The patient did not perform the activity before the current illness or injury 88 Not attempted due to Medical conditions or safety concerns Transfers (B, C, W/C) (FIM): 5 Scootin Rollin Roll Left to Right (QC): 3 Supine to/from Sit: 6 Sit to/from Stand: 6 Sit to Lying (QC): 2 Sit to Stand (QC): 3 Chair/Mcb-fz-Pdfoe Xfer(QC): 3 Bed to/from Chair: 5 Car Transfer (QC): 3 Gait Training Does the Patient Walk?: Yes Gait (FIM): 2 Distance (FIM): 7=552-83 ft (50,53x2) Distance: 50'x6 Walk 10 feet (QC): 4 Walk 50 ft with 2 Turns(QC): 4 Walking 10ft/uneven surface-QC: 3 Gait Level of Assist: 4 Gait Persons Needed: 1 Gait Assistive Device: FWW Wheelchair Training Does the Pt Use a Wheelchair?: No Stair Training Stairs (FIM): 1 #of Steps: 1 1 Step (curb) (QC): 3 Level of Assist: 4 Mental Status/Objective Comprehension: 7 Expression: 7 Social Interaction: 7 Problem Solvin Memory: 7 ADL-Treatment Groomin (Pt. does attempt to brush hair at bed level, but is unable to do so. OT does this for her.) Bathin Bathing Location: L Arm, R Arm, L Upper Leg, R Upper Leg, L Lower Leg (including foot), R Lower Leg (including foot), Chest, Abdomen Shower/Bathe Self (QC): 4 Lower Extremity Dressin (Pt. is able to bring feet up to her while on back to doff socks. Unable to fully don them so OT assists with this. Pt. is able to doff brief while in bed with SBA. Able to don over feet and hips, with min a ssist only over left hip.) Lower Body Dressing (QC): 3 On/Off Footwear (QC): 6 Toiletin Toileting Hygiene (QC): 4 Toilet/Commode Transfer: 4 Toilet Transfer (QC): 4 Assessment/Plan Assessment and Plan Assess & Plan/Chief Complaint Assessment: Extensive spinal surgery POD # 10 uncomplicated AECOPD Pneumonia Anemia-transfusion required Hyponatremia Hypokalemia Smoker Frail status Constipation-resolved Back pain Elevated BNP Plan: Pain control BM regimen Potassium Abx Steroids Venofer Transfusion of 1 unit of blood 3 days ago Very guarded prognosis given the severity of her COPD and recent pneumonia Consult Dr Cadena (1) JUNCTIONAL KYPHOSIS (2) COPD (chronic obstructive pulmonary disease) (3) Hypokalemia (4) Urinary retention (5) Anemia (6) Atelectasis (7) Hyperlipidemia (8) Hyponatremia (9) Leukocytosis (10) GERD (gastroesophageal reflux disease) (11) Hypertension (12) Pneumonia (13) Lumbar spinal stenosis (14) Oxygen dependent (15) Frailty (16) RESPIRATORY FAILURE, UNSP, UNSP W HYPOXIA OR HYPERCAPNIA (17) Smoker (18) Transfusion of blood during current hospitalization (19) Dyspnea MAGDALENE ANDRES DO July 20, 2018 08:09
[2018-07-20] MEDS: lisINopril 20 MG (PRINIVIL) TABLET PO SCH (09:31)
[2018-07-20] MEDS: FAMOTIDINE 20 MG (PEPCID) TABLET PO SCH (09:31)
[2018-07-20] MEDS: SENNA W/DOCUSATE (SENOKOT S) TABLET PO SCH ×2 (09:31→20:52)
[2018-07-20] MEDS: meTOprolol SUCCINATE 100 MG (TOPROL XL) TAB PO SCH (09:31)
[2018-07-20] MEDS: IRON SUCROSE 200 MG/10 ML (VENOFER) VIAL IV SCH (09:31)
[2018-07-20] MEDS: PANTOPRAZOLE 40 MG (PROTONIX) TAB PO SCH (09:31)
[2018-07-20] MEDS: predniSONE 10 MG TAB PO SCH (09:32)
--- NOTE | 2018-07-20 10:00 | Occupational Ther Daily Note ---
OT Current Status-Daily Note Subjective Pt alert, lying in bed. Pt c/o back pain, rated 6/10. Nrsg in room for meds. Pt agrees to therapy. Mental Status/Objective Patient Orientation: Person, Place, Time, Situation Therapy Code Descriptions/Definitions Functional [place] Measure: 0=Not Assessed/NA 4=Minimal Assistance 1=Total Assistance 5=Supervision or Setup 2=Maximal Assistance 6=Modified [place] 3=Moderate Assistance 7=Complete [place] Attachments: IV, Oxygen (3.5L) ADL-Treatment Pt declines shower, regular clothing and oral care. Pt stated that she didn't want to dress because the hospital gown was more comfortable. Agrees to sponge bath in bed. Pt set up for sponge bath and completed upper body and LE's. Completed cap shampoo since pt declines shower. Pt cleansed buttocks/alex area after toileting. SBA for toileting and transfer. Pt donned/doffed sock lying in bed and bringing feet up. Pt able to go supine <--> EOB by self. Therapy Code Descriptions/Definitions Functional [place] Measure: 0=Not Assessed/NA 4=Minimal Assistance 1=Total Assistance 5=Supervision or Setup 2=Maximal Assistance 6=Modified [place] 3=Moderate Assistance 7=Complete [place] Therapy Quality Codes: 6 Independent with activity with or without an assistive device 5 Patient requires set up or clean up by helper. Patient completes activity by themselves 4 Supervision or touching assist (CGA). [place] provide cues , steadying assist 3 The helper provides less than half the effort to complete the activity 2 The helper provides more than half the effort to complete the activity 1 Dependent. The helper does all the effort to complete an activity 7 Patient refused to complete or attempt activity 9 The patient did not perform the activity before the current illness or injury 88 Not attempted due to Medical conditions or safety concerns Bathing (FIM): 5 Shower/Bathe Self (QC): 5 Lower Body Dressing (FIM): 5 Lower Body Dressing (QC): 5 On/Off Footwear (QC): 6 Toileting (FIM): 5 Toileting Hygiene (QC): 4 Transfers (B, C, W/C) (FIM): 5 Toilet/Commode Transfer (FIM): 5 Toilet Transfer (QC): 4 Other Treatment Applied 1/2# wt to wrists to work on strengthening and activity tolerance for daily functional tasks. After therapy, pt sitting in bed with breakfast. Call light/phone in reach with nrsg in room. All needs met in room. OT Short Term Goals Short Term Goals Time Frame: July 20, 2018 Eating(FIM): 5 Grooming(FIM): 5 Bathing(FIM): 4 Upper Body Dressing(FIM): 4 Lower Body Dressing(FIM): 4 Toileting(FIM): 4 Transfers (B,C,W/C) (FIM): 4 Toilet/Commode Transfer(FIM): 4 Shower Transfer(FIM): 3 Additional Short Term Goals: 1-Demonstrate ADL Tasks, 2-Verbalize Understanding, 3-ImproveStrength/French 1=Demonstrate adherence to instructed precautions during ADL tasks. 2=Patient will verbalize/demonstrate understanding of assistive devices/modifications for ADL. 3=Patient will improve strength/tolerance for activity to enable patient to perform ADL's. OT Assisted Goals Assisted Goals Time Frame: Aug 03, 2018 Eating (FIM): 6 Eating (QC): 6 Groomin Oral Hygiene (QC): 4 Bathing(FIM): 5 Shower/Bathe Self (QC): 4 Upper Body Dressing(FIM): 5 Upper Body Dressing (QC): 4 Lower Body Dressing(FIM): 5 Lower Body Dressing (QC): 4 On/Off Footwear (QC): 4 Toileting(FIM): 6 Toileting Hygiene (QC): 5 Transfers (B,C,W/C) (FIM): 6 Toilet/Commode Transfer(FIM): 6 Toilet/Commode Transfer (QC): 5 Shower Transfer(FIM): 5 Comprehension(FIM): 6 Expression (FIM): 6 Social Interaction(FIM): 6 Problem Solving(FIM): 6 Memory(FIM): 6 Additional Goals: 1-Demonstrate ADL Tasks, 2-Verbalize Understanding, 3- ImproveStrength/French 1=Demonstrate adherence to instructed precautions during ADL tasks. 2=Patient will verbalize/demonstrate understanding of assistive devices/modifications for ADL. 3=Patient will improve strength/tolerance for activity to enable patient to perform ADL's. OT Education/Plan Problem List/Assessment Assessment: Decreased Activ Tolerance, Decreased UE Strength, Impaired Funct Balance, Impaired Self-Care Skills Discharge Recommendations Plan/Recommendations: Continue POC Treatment Plan/Plan of Care Patient would benefit from OT for education, treatment and training to promote independence in ADL's, mobility, safety and/or upper extremity function for ADL's. Plan of Care: ADL Retraining, Functional Mobility, Group Exercise/Act as Ind, UE Funct Exercise/Act Treatment Duration: Aug 03, 2018 Frequency: At least 5 of 7 days/Wk (IRF) Estimated Hrs Per Day: 1.5 hours per day Agreement: Yes Rehab Potential: Fair Time/GCodes Start Time: 08:30 Stop Time: 10:00 Total Time Billed (hr/min): 90 Billed Treatment Time 1 visit-ADL 4 (60 min) EX 2 (30 min) MARICEL HERBERT July 20, 2018 10:00
--- NOTE | 2018-07-20 11:44 | Physical Therapy Daily Note ---
PT Daily Note-Current Subjective Pt states she would like to just stay in bed, but with encouragement, agreeable to PT session. Pain Numeric Pain Scale: 4 Comment: highest pain level 7/10 with gait and transitions Appearance pt in bed upon arrival, easily aroused Requesting and assisted to bathroom, min A pulling down and pulling up depends, otherwise SBA At end of session, pt in bed right sidelying per pt request, call light, phone and bedside table within reach. Discussed importance of drinking more water as pt noted her urine in getting very dark. Mental Status Patient Orientation: Person, Place, Time, Eyes Open, Situation Attachments: Saline Lock, Oxygen (3.5L O2/NC) Lumbar Support Brace while up out of bed Transfers Therapy Code Descriptions/Definitions Functional [place] Measure: 0=Not Assessed/NA 4=Minimal Assistance 1=Total Assistance 5=Supervision or Setup 2=Maximal Assistance 6=Modified [place] 3=Moderate Assistance 7=Complete [place] Therapy Quality Codes: 6 Independent with activity with or without an assistive device 5 Patient requires set up or clean up by helper. Patient completes activity by themselves 4 Supervision or touching assist (CGA). [place] provide cues , steadying assist 3 The helper provides less than half the effort to complete the activity 2 The helper provides more than half the effort to complete the activity 1 Dependent. The helper does all the effort to complete an activity 7 Patient refused to complete or attempt activity 9 The patient did not perform the activity before the current illness or injury 88 Not attempted due to Medical conditions or safety concerns Transfers (B, C, W/C) (FIM): 5 Scootin Rollin Supine to/from Sit: 5 (with HOB elevated and log roll) Sit to/from Stand: 5 All transitions performed with SBA, pt does require instruction for hand placeme nt at times Weight Bearing Right Lower Extremity: Right Full Weight Bearing Left Lower Extremity: Left Full Weight Bearing Gait Training Does the Patient Walk?: Yes Gait (FIM): 5 Distance (FIM): 3=150 ft Distance: 230', 126' Gait Level of Assist: 5 (does require assist for O2 tank) Gait Persons Needed: 1 Gait Assistive Device: FWW slow gait, decreased step length and height, but not shuffling. No LOB or unsteadiness. Pt with report of SOA, noted pt with heavy breathing, instruction in breathing techniques, O2 sat remained 95% Exercises Supine Ex: Ankle pumps, Quad Set, Glut sets, Lower trunk rotation, Heel Slides, Straight leg raise (unablet to lift independently requiring AAROM on LLE), Hip abd/add Supine Reps: 20 Seated Therapy Exercises: Ankle pumps (50), Long arc quads (30, BLE's simultaneously), Hip flexion (30), Hamstring Curls (30), Hip abd/add (40, knees extended, BLE's simultaneously) O2 sats avg 97% during seated ex's, 94% during supine ex's Treatments bed mobility, transfers, safety, bathroom, activity tolerance, functional mobility, gait, strengthening, ROM, breathing techniques, SPO2 monitoring, don/doff back support brace. SPO2 remained 94 and above entire tx session. Assessment Current Status: Good Progress (able to increase distance and exercises this session with encouragement) PT Short Term Goals Short Term Goals Time Frame: July 20, 2018 Transfers (B,C,W/C) (FIM): 4 Gait (FIM): 4 Gait Distance Comment: 150' Gait Level of Assist: 4 Gait Assistive Device: FWW PT Usp Goals Usp Goals PT Usp Goals Time Frame: Aug 03, 2018 Transfers (B,C,W/C) (FIM): 5 Sit to Lying (QC): 4 Lying-Sitting on Side/Bed(QC): 4 Sit to Stand (QC): 4 Rollin Roll Left to Right (QC): 4 Chair/Gme-om-Mnyam Xfer(QC): 4 Car Transfer (QC): 4 Gait (FIM): 5 Distance: 200' Walk 10 feet (QC): 4 Walk 10ft-Uneven Surface(QC): 4 Walk 50ft with 2 Turns (QC): 4 Walk 150 ft (QC): 4 Gait Level of Assist: 5 Gait Assistive Device: FWW Stairs (FIM): 2 # of Steps: 4 1 Step (curb) (QC): 4 4 Steps (QC): 4 Stairs Level Of Assist: 4 PT Plan Treatment/Plan Treatment Plan: Continue Plan of Care Treatment Plan: Bed Mobility, Education, Functional Activity French, Functional Strength, Group Therapy, Gait, Safety, Therapeutic Exercise, Transfers Treatment Duration: Aug 03, 2018 Frequency: At least 5 of 7 days/Wk (IRF) Estimated Hrs Per Day: 1.5 hours per day Patient and/or Family Agrees t: Yes Safety Risks/Education Patient Education: Gait Training, Transfer Techniques, Reviewed Don/Doff Brace, Safety Issues Teaching Recipient: Patient Teaching Methods: Demonstration, Discussion Response to Teaching: Verbalize Understanding, Return Demonstration, Reinforcement Needed Time/GCodes Time In: 1100 Time Out: 1213 Total Billed Treatment Time: 73 Total Billed Treatment 1 visit, GT x 2 units, EX x 2 units, FA x1 unit BRANDIN MANTILLA PTA July 20, 2018 11:44
--- NOTE | 2018-07-20 14:32 | NUR ---
STREET OPENINGS INSPECTOR met with patient to review team conference summary. As patient is performing most therapy activities with standby assistance and experiencing an increase in shortness of breath with exertion, team has recommended patient be reevaluated at next team team conference on 65. Although patient originally had requested discharge sooner, she agrees that lengthening her stay is appropriate due to worsening shortness of breath. STREET OPENINGS INSPECTOR will continue to follow.
[2018-07-20] MEDS: oxyCODONE/APAP 5/325MG (PERCOCET 5) TABLET PO PRN (14:57)
--- NOTE | 2018-07-20 15:14 | Physical Therapy Daily Note ---
PT Daily Note-Current Subjective Agrees to PT. Requests a pain pill. Pain Numeric Pain Scale: 5-Moderate Pain Location: Lower Location Body Site: Back Pain Description: Ache Mental Status Patient Orientation: Person, Place, Time, Situation Transfers Therapy Code Descriptions/Definitions Functional [place] Measure: 0=Not Assessed/NA 4=Minimal Assistance 1=Total Assistance 5=Supervision or Setup 2=Maximal Assistance 6=Modified [place] 3=Moderate Assistance 7=Complete [place] Therapy Quality Codes: 6 Independent with activity with or without an assistive device 5 Patient requires set up or clean up by helper. Patient completes activity by themselves 4 Supervision or touching assist (CGA). [place] provide cues , steadying assist 3 The helper provides less than half the effort to complete the activity 2 The helper provides more than half the effort to complete the activity 1 Dependent. The helper does all the effort to complete an activity 7 Patient refused to complete or attempt activity 9 The patient did not perform the activity before the current illness or injury 88 Not attempted due to Medical conditions or safety concerns Transfers (B, C, W/C) (FIM): 5 Supine to/from Sit: 5 Sit to/from Stand: 5 Chair/Ukp-xk-Lxfbn Xfer(QC): 5 SBA with functional transfers with intermittent cues for safety. Transferred on/off the commode with SBA. Pt able to perform pericare. Weight Bearing Right Lower Extremity: Right Full Weight Bearing Left Lower Extremity: Left Full Weight Bearing Exercises Supine Ex: Ankle pumps, Quad Set, Glut sets, Heel Slides, Short Arc Quads, Hip abd/add Supine Reps: 15 (to promote LE strength for functional gait and transfers. ) Assessment Pt is progressing in terms of functional mobilty. She does become SOA with activity. PT Short Term Goals Short Term Goals Time Frame: July 20, 2018 Transfers (B,C,W/C) (FIM): 4 (met) Gait (FIM): 4 Gait Distance Comment: 150' Gait Level of Assist: 4 Gait Assistive Device: FWW PT Sales Professional Bilingual Goals Sales Professional Bilingual Goals PT Skilled Nursing Goals Time Frame: Aug 03, 2018 Transfers (B,C,W/C) (FIM): 5 Sit to Lying (QC): 4 Lying-Sitting on Side/Bed(QC): 4 Sit to Stand (QC): 4 Rollin Roll Left to Right (QC): 4 Chair/Dnj-le-Zxykg Xfer(QC): 4 Car Transfer (QC): 4 Gait (FIM): 5 Distance: 200' Walk 10 feet (QC): 4 Walk 10ft-Uneven Surface(QC): 4 Walk 50ft with 2 Turns (QC): 4 Walk 150 ft (QC): 4 Gait Level of Assist: 5 Gait Assistive Device: FWW Stairs (FIM): 2 # of Steps: 4 1 Step (curb) (QC): 4 4 Steps (QC): 4 Stairs Level Of Assist: 4 PT Plan Problem List Problem List: Activity Tolerance, Functional Strength, Safety, Balance, Gait, Transfer, Bed Mobility Treatment/Plan Treatment Plan: Continue Plan of Care Treatment Plan: Bed Mobility, Education, Functional Activity French, Functional Strength, Group Therapy, Gait, Safety, Therapeutic Exercise, Transfers Treatment Duration: Aug 03, 2018 Frequency: At least 5 of 7 days/Wk (IRF) Estimated Hrs Per Day: 1.5 hours per day Patient and/or Family Agrees t: Yes Safety Risks/Education Patient Education: Safety Issues Teaching Recipient: Patient Teaching Methods: Discussion Response to Teaching: Verbalize Understanding Time/GCodes Time In: 1450 Time Out: 1313 Total Billed Treatment Time: 23 Total Billed Treatment visit FA 10 EX 13 MARICEL FERRIS PT July 20, 2018 15:14
[2018-07-20 15:57] VITALS: BP 157/74
--- NOTE | 2018-07-20 17:07 | Consultation-Cardiology ---
HPI-Cardiology Cardiology Consultation Date of Consultation 07/20/18 Date of Admission Time Seen by Provider: 17:01 Indication: shortness of breath HPI 72 years old lady with history of coronary artery disease, hypertension, hyperlipidemia and COPD. Underwent back surgery and was doing well on physical therapy, had increasing dyspnea last night, elevation in BNP, reporting impr ovement this evening. Having some improvement in her dyspnea but still using oxygen and having some shortness of breath. Denied any chest pain. Denied any palpitation. Syncope or near syncopal episodes. Home Medications & Allergies Allergies: Coded Allergies: tramadol (Unverified Allergy, Mild, ITCHING/RASH, 07/04/18) HAS HAD MORPHINE WITH NO ISSUES PER PT hydrocodone (Verified Allergy, Unknown, 07/10/18) Home Medication List Reviewed: Yes [id number]-[id number] Hx Patient Social History Marital Status: Employed/Student: retired Alcohol Use: Denies Use Recreational Drug Use: No Smoking Status: Current Everyday Smoker Type Used: Cigarettes Recent Foreign Travel: No Recent Infectious Disease Expo: No Recent Hopitalizations: Yes Physical Abuse Screen: No Sexual Abuse: No Immunizations Up To Date Date of Pneumonia Vaccine: Dec 05, 2014 Date of Influenza Vaccine: Dec 07, 2017 Past Medical History discussed below Family Medical History Significant Family History: Hypertension Family History: Cardiovascular disease G8 BROTHER Dementia G8 SISTER FH: brain cancer 19 FATHER Gastroenteritis G8 BROTHER Hypertension 19 MOTHER G8 BROTHER Myocardial infarction G8 BROTHER Parkinson's disease G8 SISTER Respiratory disorder G8 BROTHER (lung ca) Review of Systems-General Review of Systems Constitutional: see HPI, dizziness, fever, malaise, weakness EENTM: see HPI Respiratory: cough, dyspnea on exertion, phlegm, short of breath, wheezing Cardiovascular: see HPI; No chest pain, No edema, No Hx of Intervention, No palpitations, No syncope, No vascular heart diseas, No other Gastrointestinal: see HPI, constipation Genitourinary: see HPI Musculoskeletal: back pain, joint pain, muscle weakness Skin: no symptoms reported Psychiatric/Neurological: No Symptoms Reported All Other Systems Reviewed Negative Unless Noted: Yes Physical Exam Physical Exam Vital Signs Vital Signs - First Documented 07/14/18 07/14/18 07/16/18 05:44 06:48 11:27 Temp 97.4 Pulse 76 Resp 20 B/P (MAP) 104/60 (75) Pulse Ox 94 O2 Delivery Room Air O2 Flow Rate 3.50 FiO2 34 Capillary Refill : Height, Weight, BMI Height: 5'2.00" Weight: 129lbs. 0.8oz. 58.908008id; 24.1 BMI Method: General Appearance: No Apparent Distress, WD/WN, Chronically ill, Thin, Other (improved) HEENT: PERRL/EOMI, TMs Normal, Normal ENT Inspection, Pharynx Normal, Moist Mucous Membranes Neck: Full Range of Motion, Normal Inspection, Non Tender, Supple Respiratory: Chest Non Tender, No Accessory Muscle Use, No Respiratory Distress , Crackles, Decreased Breath Sounds Cardiovascular: Regular Rate, Rhythm, No Edema, No Gallop, No JVD, No Murmur Gastrointestinal: Normal Bowel Sounds, No Organomegaly, No Pulsatile Mass, Non Tender, Soft Back: Decreased Range of Motion Extremity: Normal Capillary Refill, Normal Inspection, Other (5/5 motor crow LE, NVSI, wound CDI, drain in place) Neurologic/Psychiatric: Alert, Oriented x3, No Motor/Sensory Deficits, Normal Mood/Affect Skin: Normal Color, Warm/Dry Lymphatic: No Adenopathy A/P-Cardiology Admission Diagnosis Shortness of breath COPD Coronary artery disease Hypertension Assessment/Plan Shortness of breath, worsening recently, has history of COPD, using oxygen. St ill having some dyspnea with elevation in BNP, reporting some improvement. Continue to monitor, I will repeat 2-D echocardiogram Last echocardiogram was done in 2016 showing normal left ventricular size and function with ejection fraction 55-65 percent, mild mitral regurgitation, PA pressure 40 mmHg. Continue to monitor Coronary artery disease, reporting cardiac catheterization done about 15 years ago, had a stress test done in September 2016 showing no ischemia or infarction with normal LV size and function. continue to monitor no active chest pain Hypertension, monitor blood pressure Hyperlipidemia, monitor lipids Tobaccoism, has stopped smoking on admission to the hospital, educated on the importance of smoking cessation Strong family history of heart disease. Status post multiple back surgeries, receiving physical therapy. Clinical Quality Measures DVT/VTE Risk/Contraindication: Risk Factor Score Per Nursin RFS Level Per Nursing on Admit: 4+=Very High ORTEGA SCHAEFFER MD July 20, 2018 17:07
[2018-07-20] MEDS: TAMSULOSIN 0.4 MG (FLOMAX) CAP PO SCH (17:29)
[2018-07-20] MEDS: POLYETHYLENE GLYCOL 17 GM (MIRALAX) PACK PO SCH (20:51)
[2018-07-21 05:27] VITALS: BP 154/55
[2018-07-21] MEDS: BETHANECHOL 10 MG (URECHOLINE) TAB PO SCH ×3 (06:07→21:11)
[2018-07-21] MEDS: CATHETER FLUSH 10 ML SYR IV SCH ×3 (06:07→21:11)
[2018-07-21] MEDS: MULTIVIT W/MINERALS TAB (THERAGRAN M) PO SCH (06:07)
[2018-07-21 06:11] LABS: BASOPHILS % (AUTO) 0 % (0-10); EOSINOPHILS % (AUTO) 0 % (0-10); HEMATOCRIT 33 % (35-52); HEMOGLOBIN 10.9 G/DL (11.5-16.0); LYMPHOCYTES # (AUTO) 3.2 X 10^3 (1.0-4.0); LYMPHOCYTES % (AUTO) 26 % (12-44); MEAN CORPUSCULAR HEMOGLOBIN 31 PG (25-34); MEAN CORPUSCULAR HGB CONC 34 G/DL (32-36); MEAN CORPUSCULAR VOLUME 93 FL (80-99); MONOCYTES # (AUTO) 1.7 X 10^3 (0.0-1.0); MONOCYTES % (AUTO) 14 % (0-12); NEUTROPHILS # (AUTO) 7.5 X 10^3 (1.8-7.8); NEUTROPHILS % (AUTO) 60 % (42-75); PLATELET COUNT 474 10^3/uL (130-400); RED CELL DISTRIBUTION WIDTH 16.8 % (10.0-14.5); WHITE BLOOD COUNT 12.4 10^3/uL (4.3-11.0)
[2018-07-21] MEDS: RT-ADVAIR HFA 115/21 MCG PER PUFF IH SCH ×2 (06:21→18:57)
[2018-07-21] MEDS: RT-ALBUTEROL/IPRATROPIUM 3 ML (DUONEB) VIAL INH SCH ×4 (06:21→18:56)
[2018-07-21 06:36] LABS: ALANINE AMINOTRANSFERASE 28 U/L (0-55); ALBUMIN 3.3 GM/DL (3.2-4.5); ALKALINE PHOSPHATASE 64 U/L (40-136); BILIRUBIN,TOTAL 0.3 MG/DL (0.1-1.0); BUN/CREATININE RATIO 19; CALCIUM 8.5 MG/DL (8.5-10.1); CARBON DIOXIDE 26 MMOL/L (21-32); CHLORIDE 105 MMOL/L (98-107); CREATININE SERUM 0.59 MG/DL (0.60-1.30); GFR ESTIMATED > 60; GLUCOSE 84 MG/DL (70-105); POTASSIUM 3.1 MMOL/L (3.6-5.0); SODIUM 138 MMOL/L (135-145); TOTAL PROTEIN 5.5 GM/DL (6.4-8.2)
[2018-07-21] MEDS ORDERED: KCL 10 MEQ TAB (MICRO K) PO NR (07:30)
[2018-07-21] MEDS ORDERED: FUROSEMIDE 40 MG/4 ML INJ (LASIX) IVP NR (07:30)
--- NOTE | 2018-07-21 07:31 | Pulmonary Progress Note ---
Subjective Time Seen by a Provider: 07:41 Sepsis Event Evaluation Height, Weight, BMI Height: 5'2.00" Weight: 129lbs. 0.8oz. 58.040020qx; 24.1 BMI Method: Exam Exam Vital Signs Date Time Temp Pulse Resp B/P (MAP) Pulse Ox O2 Delivery O2 Flow Rate FiO2 07/21/18 06:23 95 Nasal Cannula 2.00 07/21/18 05:27 97.4 64 20 154/55 (88) 92 Nasal Cannula 3.00 07/20/18 20:32 94 Nasal Cannula 3.50 07/20/18 20:10 Nasal Cannula 3.50 07/20/18 15:57 97.6 67 16 157/74 (101) 94 Nasal Cannula 3.00 07/20/18 15:28 93 Nasal Cannula 3.50 07/20/18 09:00 Nasal Cannula 3.50 I & O 07/21/18 07:00 Intake Total 660 ml Output Total 200 ml Balance 460 ml Height & Weight Height: 5'2.00" Weight: 129lbs. 0.8oz. 58.233169ae; 24.1 BMI Method: General Appearance: No Apparent Distress, WD/WN, Chronically ill, Thin, Other (improved) HEENT: PERRL/EOMI, TMs Normal, Normal ENT Inspection, Pharynx Normal, Moist Mucous Membranes Neck: Full Range of Motion, Normal Inspection, Non Tender, Supple Respiratory: Chest Non Tender, No Accessory Muscle Use, No Respiratory Distress, Crackles, Decreased Breath Sounds Cardiovascular: Regular Rate, Rhythm, No Edema, No Gallop, No JVD, No Murmur Gastrointestinal: normal bowel sounds, non tender, soft Extremity: Normal Capillary Refill, Normal Inspection, Other (5/5 motor crow LE, NVSI, wound CDI, drain in place) Neurologic/Psychiatric: Alert, Oriented x3, No Motor/Sensory Deficits, Normal Mood/Affect Skin: Normal Color, Warm/Dry Lymphatic: No Adenopathy Results Lab Laboratory Tests 07/19/18 12:40 07/21/18 05:45 Assessment/Plan Assessment/Plan s/p thoracolumbar fusion Chronic COPD - Pt is on 3 liters of oxygen at home -SVNS -Monitor -Advair PNA - resolving -Leukocytosis - improving and no fever -S/p Zosyn -Repeat CXR Hypokalemia, hypomag, hypophos -replace -Monitor Anemia - post op -Monitor FELICIA LOPEZ DO July 21, 2018 07:31
[2018-07-21 08:29] VITALS: BP 132/86
[2018-07-21] MEDS: oxyCODONE/APAP 5/325MG (PERCOCET 5) TABLET PO PRN ×2 (08:33→15:38)
[2018-07-21] MEDS: SENNA W/DOCUSATE (SENOKOT S) TABLET PO SCH ×2 (08:33→21:09)
[2018-07-21] MEDS: PANTOPRAZOLE 40 MG (PROTONIX) TAB PO SCH (08:33)
[2018-07-21] MEDS: meTOprolol SUCCINATE 100 MG (TOPROL XL) TAB PO SCH (08:33)
[2018-07-21] MEDS: lisINopril 20 MG (PRINIVIL) TABLET PO SCH (08:33)
[2018-07-21] MEDS: FAMOTIDINE 20 MG (PEPCID) TABLET PO SCH (08:33)
--- NOTE | 2018-07-21 08:36 | PM&R Progress Note ---
Subjective HPI/CC On Admission Date Seen by Provider: July 21, 2018 Time Seen by Provider: 08:45 CC: Thoracic lumbar spine surgery HPI: This is a 72yoWF clinic patient of Dr Cancino in [place], [place] know to me from prior spine surgery admits w/h/o severe O2 dependent COPD who continues to smoke who presents to the IRF unit in need of intensive rehab in order to return home with her . Patient is doing ok today just having back pain and a cough. Patient was recently dx with pneumonia and placed on aggressive treatment by Dr Lubin whom his expertise is much appreciated and the patient appreciates his help. No BM for now 4 days post op and that is being addressed more aggressively today. PLOF was independent with ambulation and ADL's. I have reviewed her labs and we are in the midst of correction of her abnormal electr olytes with supplements. Nebs are ordered along with IV antibiotics and IV steroids. Iron with very low along with hemoglobin so will start Venofer. Potassium will be supplemented 20meq PO TID for 3 days Drain is now out. Urinary retention this morning so have consulted Dr Lane for retention. Subjective/Events-last exam Pt is much improved today after a good sleep again last night BNP elevated so consulted Dr. Tammi caro he noted ECHO looked good but PHTN at 50 Completed Zosyn yesterday Venofer will be maintained for iron deficiency anemia Received transfusion four days ago and has really responded Overall patient feels much better and appears to be able to progress better now Participating in all therapy Reviewed therapy notes Bladder doing well and bladder scans are minimal residual now and all that was reported to Dr Lane Lasix and potassium was ordered by Dr Lubin today CXR ordered also Review of Systems General: Fatigue Pulmonary: Dyspnea Musculoskeletal: back pain Objective Exam Vital Signs Vital Signs Date Time Temp Pulse Resp B/P (MAP) Pulse Ox O2 Delivery O2 Flow Rate FiO2 07/21/18 10:18 98 Nasal Cannula 2.00 07/21/18 08:29 68 20 132/86 (101) 07/21/18 05:27 97.4 07/19/18 07:07 34 Capillary Refill : General Appearance: No Apparent Distress, WD/WN, Chronically ill, Thin, Other (improved) HEENT: PERRL/EOMI, TMs Normal, Normal ENT Inspection, Pharynx Normal, Moist Mucous Membranes Neck: Full Range of Motion, Normal Inspection, Non Tender, Supple Respiratory: Chest Non Tender, Lungs Clear, Normal Breath Sounds, No Accessory Muscle Use, No Respiratory Distress Cardiovascular: Regular Rate, Rhythm, No Edema, No Gallop, No JVD, No Murmur Gastrointestinal: Normal Bowel Sounds, No Organomegaly, No Pulsatile Mass, Non Tender, Soft Back: Decreased Range of Motion Extremity: Normal Capillary Refill, Normal Inspection, Other (5/5 motor crow LE, NVSI, wound CDI, drain in place) Neurologic/Psychiatric: Alert, Oriented x3, No Motor/Sensory Deficits, Normal Mood/Affect Skin: Normal Color, Warm/Dry Lymphatic: No Adenopathy Results/Procedures Lab Laboratory Tests 07/21/18 05:45 Patient resulted labs reviewed. FIM Transfers Therapy Code Descriptions/Definitions Functional [place] Measure: 0=Not Assessed/NA 4=Minimal Assistance 1=Total Assistance 5=Supervision or Setup 2=Maximal Assistance 6=Modified [place] 3=Moderate Assistance 7=Complete [place] Therapy Quality Codes: 6 Independent with activity with or without an assistive device 5 Patient requires set up or clean up by helper. Patient completes activity by themselves 4 Supervision or touching assist (CGA). [place] provide cues , steadying assist 3 The helper provides less than half the effort to complete the activity 2 The helper provides more than half the effort to complete the activity 1 Dependent. The helper does all the effort to complete an activity 7 Patient refused to complete or attempt activity 9 The patient did not perform the activity before the current illness or injury 88 Not attempted due to Medical conditions or safety concerns Transfers (B, C, W/C) (FIM): 5 Scootin Rollin Roll Left to Right (QC): 3 Supine to/from Sit: 5 Sit to/from Stand: 5 Sit to Lying (QC): 2 Sit to Stand (QC): 3 Chair/Fmp-ql-Vydxr Xfer(QC): 5 Bed to/from Chair: 5 Car Transfer (QC): 3 Gait Training Does the Patient Walk?: Yes Gait (FIM): 5 Distance (FIM): 3=150 ft Distance: 230', 126' Walk 10 feet (QC): 4 Walk 50 ft with 2 Turns(QC): 4 Walking 10ft/uneven surface-QC: 3 Gait Level of Assist: 5 (does require assist for O2 tank) Gait Persons Needed: 1 Gait Assistive Device: FWW Wheelchair Training Does the Pt Use a Wheelchair?: No Stair Training Stairs (FIM): 1 #of Steps: 1 1 Step (curb) (QC): 3 Level of Assist: 4 Mental Status/Objective Comprehension: 7 Expression: 7 Social Interaction: 7 Problem Solvin Memory: 7 ADL-Treatment Groomin (Pt. does attempt to brush hair at bed level, but is unable to do so. OT does this for her.) Bathin Bathing Location: L Arm, R Arm, L Upper Leg, R Upper Leg, L Lower Leg (including foot), R Lower Leg (including foot), Chest, Abdomen Shower/Bathe Self (QC): 5 Lower Extremity Dressin Lower Body Dressing (QC): 5 On/Off Footwear (QC): 6 Toiletin Toileting Hygiene (QC): 4 Toilet/Commode Transfer: 5 Toilet Transfer (QC): 4 Assessment/Plan Assessment and Plan Assess & Plan/Chief Complaint Assessment: Extensive spinal surgery POD # 11 uncomplicated AECOPD Pneumonia Anemia-transfusion required Hyponatremia Hypokalemia Smoker Frail status Constipation-resolved Back pain Elevated BNP PHTN Plan: Pain control BM regimen Potassium with Lasix Abx Steroids Venofer Transfusion of 1 unit of blood 4 days ago Very guarded prognosis given the severity of her COPD and recent pneumonia but appears improved Consultation by Dr Cadena is appreciated (1) JUNCTIONAL KYPHOSIS (2) COPD (chronic obstructive pulmonary disease) (3) Hypokalemia (4) Urinary retention (5) Anemia (6) Atelectasis (7) Hyperlipidemia (8) Hyponatremia (9) Leukocytosis (10) GERD (gastroesophageal reflux disease) (11) Hypertension (12) Pneumonia (13) Lumbar spinal stenosis (14) Oxygen dependent (15) Frailty (16) RESPIRATORY FAILURE, UNSP, UNSP W HYPOXIA OR HYPERCAPNIA (17) Smoker (18) Transfusion of blood during current hospitalization (19) Dyspnea (20) Pulmonary hypertension MAGDALENE ANDRES DO July 21, 2018 08:36
--- NOTE | 2018-07-21 09:13 | Cardiology Progress Note ---
Subjective Date Seen by Provider: July 21, 2018 Time Seen by Provider: 09:12 Subjective/Events-last exam Patient is laying down in bed, still having some shortness of breath but reporting improvement. No chest pain Review of Systems General: No Chills, No Night Sweats, No Fatigue, No Malaise, No Appetite, No Other HEENT: No Head Aches, No Visual Changes, No Eye Pain, No Ear Pain, No Dysphasia, No Sinus Congestion, No Post Nasal Drip, No Sore Throat, No Other Pulmonary: Dyspnea; No Cough, No Pleuritic Chest Pain, No Other Cardiovascular: No: Chest Pain, Palpitations, Orthopnea, Paroxysmal Noc. Dyspnea, Edema, Lt Headedness, Other Objective-Cardiology Exam Last Set of Vital Signs Vital Signs 07/19/18 07/21/18 07/21/18 07:07 05:27 08:29 Temp 97.4 Pulse 68 Resp 20 B/P (MAP) 132/86 (101) Pulse Ox 92 O2 Delivery Nasal Cannula O2 Flow Rate 2.50 FiO2 34 Capillary Refill : I&O Intake and Output 07/21/18 00:00 Intake Total 810 ml Output Total 200 ml Balance 610 ml Intake Oral 810 ml Output Urine Total 200 ml Bladder Scan Volume Amount 187 ml # Voids 5 General: Alert, Oriented X3, Cooperative HEENT: Atraumatic, PERRLA Neck: Supple, No JVD, No Thyromegaly Lungs: Normal Air Movement, Other (bilateral rhonchi) Heart: Regular Rate, Normal S1, Normal S2, No Murmurs Abdomen: Normal Bowel Sounds, Soft, No Tenderness, No Hepatosplenomegaly, No Masses Extremities: No Clubbing, No Cyanosis, No Edema, Normal Pulses, No Tenderness/Swelling Skin: No Rashes, No Breakdown, No Significant Lesion Neuro: Normal Gait, Normal Speech, Strength at 5/5 X4 Ext, Normal Tone, Sensation Intact Psych/Mental Status: Mental Status NL, Mood NL Results Lab Laboratory Tests 07/21/18 05:45 A/P-Cardiology Admission Diagnosis Shortness of breath COPD Coronary artery disease Hypertension Assessment/Plan Shortness of breath, worsening recently, acute exacerbation of COPD. Mild elevation in BNP, echocardiogram is normal. 2-D echo done today showing normal LV size and systolic function, estimated ejection fraction 60 percent, severe pulmonary hypertension with PA pressure of 50 mmHg. Coronary artery disease, reporting cardiac catheterization done about 15 years ago, had a stress test done in September 2016 showing no ischemia or infarction with normal LV size and function. continue to monitor no active chest pain Hypertension, monitor blood pressure Hyperlipidemia, monitor lipids Tobaccoism, has stopped smoking on admission to the hospital, educated on the importance of smoking cessation Strong family history of heart disease. Status post multiple back surgeries, receiving physical therapy. Clinical Quality Measures DVT/VTE Risk/Contraindication: Risk Factor Score Per Nursin RFS Level Per Nursing on Admit: 4+=Very High ORTEGA SCHAEFFER MD July 21, 2018 09:13
--- NOTE | 2018-07-21 09:15 | Progress Note-Urology ---
Progress Note-Urology Progress Notes/Assess & Plan Progress/Assessment & Plan STILL HAS SOME PVR. STILL AT URECHOLINE TID. KEEP SAME PLAN Final Diagnosis URINE RETENTION AJAY MACHUCA MD July 21, 2018 09:15
[2018-07-21] MEDS: predniSONE 10 MG TAB PO SCH (09:34)
[2018-07-21] MEDS ORDERED: POTASSIUM PHOSPHATE INJ 30 MM in NS (IVPB) 250 ML IV ONE (10:00)
--- NOTE | 2018-07-21 10:12 | NUR ---
Phosphorus and Magnesium are both 2.0. Dr. Lubin notified. Potassium was 3.1 this AM. Patient got Lasix- 40 MG IV and and Klor Con- 60 MEQ this AM per Dr. Lubin. Orders to give Potassium Phosphate- 30mmol IV X1 today.
--- NOTE | 2018-07-21 10:24 | Occupational Ther Daily Note ---
OT Current Status-Daily Note Subjective Pt alert, lying in bed. Pt c/o back pain, stated it was easing up since getting pain meds. Pt agrees to therapy. Mental Status/Objective Patient Orientation: Person, Place, Time, Situation Therapy Code Descriptions/Definitions Functional [place] Measure: 0=Not Assessed/NA 4=Minimal Assistance 1=Total Assistance 5=Supervision or Setup 2=Maximal Assistance 6=Modified [place] 3=Moderate Assistance 7=Complete [place] Attachments: IV, Oxygen (3.5L) ADL-Treatment Pt declines shower, regular clothing. Pt stated that she didn't want to dress because the hospital gown was more comfortable. Agrees to sponge bath on BSC. Pt cleansed buttocks/alex area after toileting then upper body and upper legs. SBA for toileting and transfer. Pt ambulated to bathroom sink to complete oral care in sitting. Assist to don brace, doffs brace by self. Pt able to go supine <--> EOB by self. Therapy Code Descriptions/Definitions Functional [place] Measure: 0=Not Assessed/NA 4=Minimal Assistance 1=Total Assistance 5=Supervision or Setup 2=Maximal Assistance 6=Modified [place] 3=Moderate Assistance 7=Complete [place] Therapy Quality Codes: 6 Independent with activity with or without an assistive device 5 Patient requires set up or clean up by helper. Patient completes activity by themselves 4 Supervision or touching assist (CGA). [place] provide cues , steadying assist 3 The helper provides less than half the effort to complete the activity 2 The helper provides more than half the effort to complete the activity 1 Dependent. The helper does all the effort to complete an activity 7 Patient refused to complete or attempt activity 9 The patient did not perform the activity before the current illness or injury 88 Not attempted due to Medical conditions or safety concerns Grooming (FIM): 6 Oral Hygiene (QC): 6 Bathing (FIM): 5 Shower/Bathe Self (QC): 5 Toileting (FIM): 5 Toileting Hygiene (QC): 4 Transfers (B, C, W/C) (FIM): 5 Toilet/Commode Transfer (FIM): 5 Toilet Transfer (QC): 4 Other Treatment Completed arm bike 10 min without breaks, light resistance to increase strength and activity tolerance for daily functional tasks. After therapy, pt set up breakfast in bed. Call light/phone in reach. All needs met in room. OT Short Term Goals Short Term Goals Time Frame: July 20, 2018 Eating(FIM): 5 Grooming(FIM): 5 Bathing(FIM): 4 Upper Body Dressing(FIM): 4 Lower Body Dressing(FIM): 4 Toileting(FIM): 4 Transfers (B,C,W/C) (FIM): 4 (met) Toilet/Commode Transfer(FIM): 4 Shower Transfer(FIM): 3 Additional Short Term Goals: 1-Demonstrate ADL Tasks, 2-Verbalize Understanding, 3-ImproveStrength/French 1=Demonstrate adherence to instructed precautions during ADL tasks. 2=Patient will verbalize/demonstrate understanding of assistive devices/modifications for ADL. 3=Patient will improve strength/tolerance for activity to enable patient to perform ADL's. OT Halfway Goals Halfway Goals Time Frame: Aug 03, 2018 Eating (FIM): 6 Eating (QC): 6 Groomin Oral Hygiene (QC): 4 Bathing(FIM): 5 Shower/Bathe Self (QC): 4 Upper Body Dressing(FIM): 5 Upper Body Dressing (QC): 4 Lower Body Dressing(FIM): 5 Lower Body Dressing (QC): 4 On/Off Footwear (QC): 4 Toileting(FIM): 6 Toileting Hygiene (QC): 5 Transfers (B,C,W/C) (FIM): 6 Toilet/Commode Transfer(FIM): 6 Toilet/Commode Transfer (QC): 5 Shower Transfer(FIM): 5 Comprehension(FIM): 6 Expression (FIM): 6 Social Interaction(FIM): 6 Problem Solving(FIM): 6 Memory(FIM): 6 Additional Goals: 1-Demonstrate ADL Tasks, 2-Verbalize Understanding, 3- ImproveStrength/French 1=Demonstrate adherence to instructed precautions during ADL tasks. 2=Patient will verbalize/demonstrate understanding of assistive devices/mo difications for ADL. 3=Patient will improve strength/tolerance for activity to enable patient to perform ADL's. OT Education/Plan Problem List/Assessment Assessment: Decreased Activ Tolerance, Decreased UE Strength, Impaired Self- Care Skills Discharge Recommendations Plan/Recommendations: Continue POC Treatment Plan/Plan of Care Patient would benefit from OT for education, treatment and training to promote independence in ADL's, mobility, safety and/or upper extremity function for ADL's. Plan of Care: ADL Retraining, Functional Mobility, Group Exercise/Act as Ind, UE Funct Exercise/Act Treatment Duration: Aug 03, 2018 Frequency: At least 5 of 7 days/Wk (IRF) Estimated Hrs Per Day: 1.5 hours per day Agreement: Yes Rehab Potential: Fair Time/GCodes Start Time: 09:30 Stop Time: 10:30 Total Time Billed (hr/min): 60 Billed Treatment Time 1 visit-ADL 3 (50 min) EX 1 (10 min) MARICEL HERBERT July 21, 2018 10:24
--- NOTE | 2018-07-21 13:18 | Physical Therapy Daily Note ---
PT Daily Note-Current Subjective Pt reports she just got into bed, back brace is still on and is very uncomfortable. Agreeable to PT session with min encouragement required. Pain Numeric Pain Scale: 5-Moderate Pain Comment: back, increases with mobility Appearance Upon arrival, pt R side lying in bed with back brace on. Pt requesting and assisted to bathroom, min A required to pull down and pull up briefs At end of session, pt R side lying after taking brace off, call light, phone and bedside table within reach Mental Status Patient Orientation: Person, Place, Time, Eyes Open, Situation Attachments: Oxygen (3.5L / NC), IV Transfers Therapy Code Descriptions/Definitions Functional [place] Measure: 0=Not Assessed/NA 4=Minimal Assistance 1=Total Assistance 5=Supervision or Setup 2=Maximal Assistance 6=Modified [place] 3=Moderate Assistance 7=Complete [place] Therapy Quality Codes: 6 Independent with activity with or without an assistive device 5 Patient requires set up or clean up by helper. Patient completes activity by themselves 4 Supervision or touching assist (CGA). [place] provide cues , steadying assist 3 The helper provides less than half the effort to complete the activity 2 The helper provides more than half the effort to complete the activity 1 Dependent. The helper does all the effort to complete an activity 7 Patient refused to complete or attempt activity 9 The patient did not perform the activity before the current illness or injury 88 Not attempted due to Medical conditions or safety concerns Transfers (B, C, W/C) (FIM): 4 Scootin (use of bedrail) Rollin (use of bedrail) Supine to/from Sit: 5 (HOB elevated and use of bedrail. Log roll) Sit to/from Stand: 4 (CGA provided due to c/o increased pain and weakness. Assist in bathroom to steady while pulling up briefs) Pt demonstrating good technique and correct hand placement although with effort Weight Bearing Right Lower Extremity: Right Full Weight Bearing Left Lower Extremity: Left Full Weight Bearing Gait Training Does the Patient Walk?: Yes Gait (FIM): 4 Distance (FIM): 3=150 ft Distance: 230, 130 Gait Level of Assist: 4 (CGA - min A x2 episodes of unsteadiness due to RLE "giving out" slightly with pt stating increased pain and weakness in leg at that moment) Gait Persons Needed: 1 (extra person used to assist with IV pole and O2 tank) Gait Assistive Device: FWW Exercises Seated Therapy Exercises: Ankle pumps, Sit to stand, Long arc quads, Hip flexion, Hip abd/add Seated Reps: 20 (most ex's performed with BLE's simultaneously to engage abdominal mm's to assist in increasing core strength) Standing: Heel/toe raises, Marching, Side steps, Weight shifts Standing Reps: 20 Treatments bed mobility, safety, education, don doff back support brace, transfers, strengthening, balance, activity tolerance, functional mobility, gait, bathroom Assessment Current Status: Good Progress PT Short Term Goals Short Term Goals Time Frame: July 20, 2018 Transfers (B,C,W/C) (FIM): 4 (met) Gait (FIM): 4 Gait Distance Comment: 150' Gait Level of Assist: 4 Gait Assistive Device: FWW PT Foundation Director Goals Senior Care Goals PT Foundation Director Goals Time Frame: Aug 03, 2018 Transfers (B,C,W/C) (FIM): 5 Sit to Lying (QC): 4 Lying-Sitting on Side/Bed(QC): 4 Sit to Stand (QC): 4 Rollin Roll Left to Right (QC): 4 Chair/Fvi-mr-Qmuid Xfer(QC): 4 Car Transfer (QC): 4 Gait (FIM): 5 Distance: 200' Walk 10 feet (QC): 4 Walk 10ft-Uneven Surface(QC): 4 Walk 50ft with 2 Turns (QC): 4 Walk 150 ft (QC): 4 Gait Level of Assist: 5 Gait Assistive Device: FWW Stairs (FIM): 2 # of Steps: 4 1 Step (curb) (QC): 4 4 Steps (QC): 4 Stairs Level Of Assist: 4 PT Plan Treatment/Plan Treatment Plan: Continue Plan of Care Treatment Plan: Bed Mobility, Education, Functional Activity French, Functional Strength, Group Therapy, Gait, Safety, Therapeutic Exercise, Transfers Treatment Duration: Aug 03, 2018 Frequency: At least 5 of 7 days/Wk (IRF) Estimated Hrs Per Day: 1.5 hours per day Patient and/or Family Agrees t: Yes Safety Risks/Education Patient Education: Gait Training, Transfer Techniques, Reviewed Don/Doff Brace, Safety Issues Teaching Recipient: Patient Teaching Methods: Demonstration, Discussion Response to Teaching: Verbalize Understanding, Return Demonstration, Reinforcement Needed Time/GCodes Time In: 1100 Time Out: 1200 Total Billed Treatment Time: 60 Total Billed Treatment 1 visit, GT x 2 units, EX x 2 units BRANDIN MANTILLA PTA July 21, 2018 13:18
--- NOTE | 2018-07-21 13:35 | NUR ---
Post void bladder scan is 104mls. Per Dr. Lane, decrease Urecholine to BID.
--- NOTE | 2018-07-21 14:33 | Therapy Group Daily Note ---
Therapy Daily Group Note Patient Education Topic Other List Below (benefits of exercise, orientation to ARU) Exercises LE Seated Exercise, UE Exercise Session Ratio (pt:therapist): 3:1 Goal of Session: Education on ARU Expectations, Other (list) (benefits of exercise) Goal Met for this Session: Yes Pt Benefit of Group: Contributions to Others, Increased Functional Strength, Recognition of Peers, Socialization Other/Notes Pt. participated in group PT OT session this date. Pt. came and went by w/c ,walking short dist to from w/c and bed. Pt. was social and shared her name , home town and her favorite exercise/activity. Pt. participated in rolling large dice for # then leading and demonstrating an exercise they had learned or practiced at home previously. Pt. to room after with some assist to bed, katt at hand Start Time: 13:00 Stop Time: 14:05 Total Billed Treatment Time: 65 Total Billed Treatment 1,GRP SOWMYA MORFIN SUBASSEMBLY ASSEMBLER July 21, 2018 14:33
--- NOTE | 2018-07-21 16:17 | Diagnostic Imaging Report ---
INDICATION: Pneumonia, shortness of air. COMPARISON: July 19, 2018. TECHNIQUE: Single radiograph of the chest dated July 21, 2018. FINDINGS: Postsurgical changes are again noted associated with the spine. The cardiac silhouette is stable. No significant pulmonary vascular congestion. Calcified mediastinal/right hilar lymph nodes are again identified. Stable elevation of the right hemidiaphragm. Tiny bibasilar pleural effusions are again identified. No new focal pulmonary opacity with persistent minimal bibasilar interstitial opacities. No pneumothorax. Osseous structures appear stable. IMPRESSION: Tiny bibasilar pleural-parenchymal opacities, felt to relate to a combination of pleural fluid with adjacent atelectasis and/or pneumonitis. This appears relatively similar to the prior examination when accounting for differences in positioning. Elevated right hemidiaphragm, stable from the prior examination, though appearing new since July 12, 2018. Dictated by: Dictated on workstation # [id number]
[2018-07-21 16:46] VITALS: BP 105/53
--- NOTE | 2018-07-21 17:02 | NUR ---
Dr. Lubin notified of chest XRAY results.
[2018-07-21] MEDS: TAMSULOSIN 0.4 MG (FLOMAX) CAP PO SCH (17:13)
[2018-07-21] MEDS: POLYETHYLENE GLYCOL 17 GM (MIRALAX) PACK PO SCH (21:03)
[2018-07-22] MEDS: MULTIVIT W/MINERALS TAB (THERAGRAN M) PO SCH (05:59)
[2018-07-22] MEDS: CATHETER FLUSH 10 ML SYR IV SCH ×3 (06:00→20:23)
[2018-07-22 06:11] VITALS: BP 145/80
[2018-07-22] MEDS: RT-ADVAIR HFA 115/21 MCG PER PUFF IH SCH ×2 (06:47→19:07)
[2018-07-22] MEDS: RT-ALBUTEROL/IPRATROPIUM 3 ML (DUONEB) VIAL INH SCH ×4 (06:47→19:03)
--- NOTE | 2018-07-22 07:35 | Pulmonary Progress Note ---
Sepsis Event Evaluation Height, Weight, BMI Height: 5'2.00" Weight: 129lbs. 0.8oz. 58.552590dd; 24.1 BMI Method: Exam Exam Vital Signs Date Time Temp Pulse Resp B/P (MAP) Pulse Ox O2 Delivery O2 Flow Rate FiO2 07/22/18 06:47 97 Nasal Cannula 2.00 07/22/18 06:15 65 98 34 07/22/18 06:11 97.2 65 18 145/80 (101) 98 Nasal Cannula 3.00 07/21/18 21:10 Nasal Cannula 2.50 07/21/18 18:57 97 Nasal Cannula 2.00 07/21/18 16:46 98.1 67 14 105/53 (70) 96 Nasal Cannula 3.00 07/21/18 14:52 97 Nasal Cannula 2.00 07/21/18 10:18 98 Nasal Cannula 2.00 07/21/18 09:00 Nasal Cannula 2.50 07/21/18 08:29 68 20 132/86 (101) 92 Nasal Cannula 2.50 I & O 07/22/18 07:00 Intake Total 975 ml Output Total 2650 ml Balance -1675 ml Height & Weight Height: 5'2.00" Weight: 129lbs. 0.8oz. 58.446897dd; 24.1 BMI Method: General Appearance: No Apparent Distress, WD/WN, Chronically ill, Thin, Other (improved) HEENT: PERRL/EOMI, TMs Normal, Normal ENT Inspection, Pharynx Normal, Moist Mucous Membranes Neck: Full Range of Motion, Normal Inspection, Non Tender, Supple Respiratory: Chest Non Tender, Lungs Clear, Normal Breath Sounds, No Accessory Muscle Use, No Respiratory Distress Cardiovascular: Regular Rate, Rhythm, No Edema, No Gallop, No JVD, No Murmur Gastrointestinal: normal bowel sounds, non tender, soft Extremity: Normal Capillary Refill, Normal Inspection, Other (5/5 motor crow LE, NVSI, wound CDI, drain in place) Neurologic/Psychiatric: Alert, Oriented x3, No Motor/Sensory Deficits, Normal Mood/Affect Skin: Normal Color, Warm/Dry Lymphatic: No Adenopathy Results Lab Laboratory Tests 07/21/18 05:45 Assessment/Plan Assessment/Plan s/p thoracolumbar fusion Chronic COPD - Pt is on 3 liters of oxygen at home -SVNS -Monitor -Advair PNA - resolving -Leukocytosis - improving and no fever -S/p Zosyn -Repeat CXR Hypokalemia, hypomag, hypophos -replace -Monitor Anemia - post op -Monitor FELICIA LOPEZ DO Jul 22, 2018 07:35
[2018-07-22] MEDS: SENNA W/DOCUSATE (SENOKOT S) TABLET PO SCH ×2 (08:14→20:23)
[2018-07-22] MEDS: PANTOPRAZOLE 40 MG (PROTONIX) TAB PO SCH (08:14)
[2018-07-22] MEDS: predniSONE 10 MG TAB PO SCH (08:14)
[2018-07-22] MEDS: meTOprolol SUCCINATE 100 MG (TOPROL XL) TAB PO SCH (08:14)
[2018-07-22] MEDS: BETHANECHOL 10 MG (URECHOLINE) TAB PO SCH ×2 (08:14→20:23)
[2018-07-22] MEDS: IRON SUCROSE 200 MG/10 ML (VENOFER) VIAL IV SCH (08:14)
[2018-07-22] MEDS: FAMOTIDINE 20 MG (PEPCID) TABLET PO SCH (08:14)
[2018-07-22] MEDS: lisINopril 20 MG (PRINIVIL) TABLET PO SCH (08:15)
[2018-07-22] MEDS: oxyCODONE/APAP 5/325MG (PERCOCET 5) TABLET PO PRN (10:18)
--- NOTE | 2018-07-22 11:13 | Progress Note-Urology ---
Progress Note-Urology Progress Notes/Assess & Plan Progress/Assessment & Plan URECHOLINE DECREASED TO BID. CONTINUE MONITORING VOIDING Final Diagnosis URINE RETENTION AJAY MACHUCA MD Jul 22, 2018 11:13
--- NOTE | 2018-07-22 11:40 | PM&R Progress Note ---
Subjective HPI/CC On Admission Date Seen by Provider: Jul 22, 2018 Time Seen by Provider: 11:00 CC: Thoracic lumbar spine surgery HPI: This is a 72yoWF clinic patient of Dr Cancino in [place], [place] know to me from prior spine surgery admits w/h/o severe O2 dependent COPD who continues to smoke who presents to the IRF unit in need of intensive rehab in order to return home with her . Patient is doing ok today just having back pain and a cough. Patient was recently dx with pneumonia and placed on aggressive treatment by Dr Lubin whom his expertise is much appreciated and the patient appreciates his help. No BM for now 4 days post op and that is being addressed more aggressively today. PLOF was independent with ambulation and ADL's. I have reviewed her labs and we are in the midst of correction of her abnormal pearl ctrolytes with supplements. Nebs are ordered along with IV antibiotics and IV steroids. Iron with very low along with hemoglobin so will start Venofer. Potassium will be supplemented 20meq PO TID for 3 days Drain is now out. Urinary retention this morning so have consulted Dr Lane for retention. Subjective/Events-last exam Pt is much improved today even better than yesterday BNP elevated so consulted Dr. Cadena and he noted ECHO looked good but PHTN at 50 so he has been monitoring volume overload status Completed Zosyn 2 days ago Venofer will be completed for iron deficiency anemia Received transfusion five days ago and has really responded Overall patient feels much better and appears to be able to progress better now Participating in all therapy much better BM 07/18/18 and has been refusing meds so we have talked her in to taking a few Senna Reviewed therapy notes Bladder doing well and bladder scans are minimal residual now and all that was reported to Dr Lane and he is decreasing Urecholine to BID now Lasix and potassium was ordered by Dr Lubin yesterday CXR reviewed Review of Systems General: Fatigue Pulmonary: Dyspnea Musculoskeletal: back pain Objective Exam Vital Signs Vital Signs Date Time Temp Pulse Resp B/P (MAP) Pulse Ox O2 Delivery O2 Flow Rate FiO2 07/22/18 10:12 98 Nasal Cannula 2.00 07/22/18 06:15 65 34 07/22/18 06:11 97.2 18 145/80 (101) Capillary Refill : General Appearance: No Apparent Distress, WD/WN, Chronically ill, Thin, Other (improved) HEENT: PERRL/EOMI, TMs Normal, Normal ENT Inspection, Pharynx Normal, Moist Mucous Membranes Neck: Full Range of Motion, Normal Inspection, Non Tender, Supple Respiratory: Chest Non Tender, Lungs Clear, Normal Breath Sounds, No Accessory Muscle Use, No Respiratory Distress Cardiovascular: Regular Rate, Rhythm, No Edema, No Gallop, No JVD, No Murmur Gastrointestinal: Normal Bowel Sounds, No Organomegaly, No Pulsatile Mass, Non Tender, Soft Back: Decreased Range of Motion Extremity: Normal Capillary Refill, Normal Inspection, Other (5/5 motor crow LE, NVSI, wound CDI, drain in place) Neurologic/Psychiatric: Alert, Oriented x3, No Motor/Sensory Deficits, Normal Mood/Affect Skin: Normal Color, Warm/Dry Lymphatic: No Adenopathy Results/Procedures Lab Patient resulted labs reviewed. FIM Transfers Therapy Code Descriptions/Definitions Functional [place] Measure: 0=Not Assessed/NA 4=Minimal Assistance 1=Total Assistance 5=Supervision or Setup 2=Maximal Assistance 6=Modified [place] 3=Moderate Assistance 7=Complete [place] Therapy Quality Codes: 6 Independent with activity with or without an assistive device 5 Patient requires set up or clean up by helper. Patient completes activity by themselves 4 Supervision or touching assist (CGA). [place] provide cues , steadying assist 3 The helper provides less than half the effort to complete the activity 2 The helper provides more than half the effort to complete the activity 1 Dependent. The helper does all the effort to complete an activity 7 Patient refused to complete or attempt activity 9 The patient did not perform the activity before the current illness or injury 88 Not attempted due to Medical conditions or safety concerns Transfers (B, C, W/C) (FIM): 4 Scootin (use of bedrail) Rollin (use of bedrail) Roll Left to Right (QC): 3 Supine to/from Sit: 5 (HOB elevated and use of bedrail. Log roll) Sit to/from Stand: 4 (CGA provided due to c/o increased pain and weakness. Assist in bathroom to steady while pulling up briefs) Sit to Lying (QC): 2 Sit to Stand (QC): 3 Chair/Fmw-jt-Uhuxv Xfer(QC): 5 Bed to/from Chair: 5 Car Transfer (QC): 3 Gait Training Does the Patient Walk?: Yes Gait (FIM): 4 Distance (FIM): 3=150 ft Distance: 230, 130 Walk 10 feet (QC): 4 Walk 50 ft with 2 Turns(QC): 4 Walking 10ft/uneven surface-QC: 3 Gait Level of Assist: 4 (CGA - min A x2 episodes of unsteadiness due to RLE "giving out" slightly with pt stating increased pain and weakness in leg at that moment) Gait Persons Needed: 1 (extra person used to assist with IV pole and O2 tank) Gait Assistive Device: FWW Wheelchair Training Does the Pt Use a Wheelchair?: No Stair Training Stairs (FIM): 1 #of Steps: 1 1 Step (curb) (QC): 3 Level of Assist: 4 Mental Status/Objective Comprehension: 7 Expression: 7 Social Interaction: 7 Problem Solvin Memory: 7 ADL-Treatment Groomin Oral Hygiene (QC): 6 Bathin Bathing Location: L Arm, R Arm, L Upper Leg, R Upper Leg, L Lower Leg (including foot), R Lower Leg (including foot), Chest, Abdomen Shower/Bathe Self (QC): 5 Lower Extremity Dressin Lower Body Dressing (QC): 5 On/Off Footwear (QC): 6 Toiletin Toileting Hygiene (QC): 4 Toilet/Commode Transfer: 5 Toilet Transfer (QC): 4 Assessment/Plan Assessment and Plan Assess & Plan/Chief Complaint Assessment: Extensive spinal surgery POD # 12 uncomplicated AECOPD Pneumonia Anemia-transfusion required Hyponatremia Hypokalemia Smoker Frail status Constipation-resolved Back pain Elevated BNP PHTN Plan: Pain control BM regimen Potassium with Lasix Abx Steroids Venofer Transfusion of 1 unit of blood 5 days ago Very guarded prognosis given the severity of her COPD and recent pneumonia but appears improved Consultation by Dr Cadena is appreciated (1) JUNCTIONAL KYPHOSIS (2) COPD (chronic obstructive pulmonary disease) (3) Hypokalemia (4) Urinary retention (5) Anemia (6) Atelectasis (7) Hyperlipidemia (8) Hyponatremia (9) Leukocytosis (10) GERD (gastroesophageal reflux disease) (11) Hypertension (12) Pneumonia (13) Lumbar spinal stenosis (14) Oxygen dependent (15) Frailty (16) RESPIRATORY FAILURE, UNSP, UNSP W HYPOXIA OR HYPERCAPNIA (17) Smoker (18) Transfusion of blood during current hospitalization (19) Dyspnea (20) Pulmonary hypertension MAGDALENE ANDRES DO Jul 22, 2018 11:40
--- NOTE | 2018-07-22 12:27 | Physical Therapy Daily Note ---
PT Daily Note-Current Subjective Pt agreeable to PT session Pain Numeric Pain Scale: 5-Moderate Pain Comment: states she had pain med earlier and that nsg is aware Appearance Upon arrival, pt R side lying in bed Pt requesting and was assisted to bathroom during tx session At end of session, pt requesting and was assisted into bed, R side lying, phone, call light and bedside table within reach Mental Status Patient Orientation: Person, Place, Time Attachments: Saline Lock back support brace Transfers Therapy Code Descriptions/Definitions Functional [place] Measure: 0=Not Assessed/NA 4=Minimal Assistance 1=Total Assistance 5=Supervision or Setup 2=Maximal Assistance 6=Modified [place] 3=Moderate Assistance 7=Complete [place] Therapy Quality Codes: 6 Independent with activity with or without an assistive device 5 Patient requires set up or clean up by helper. Patient completes activity by themselves 4 Supervision or touching assist (CGA). [place] provide cues , steadying assist 3 The helper provides less than half the effort to complete the activity 2 The helper provides more than half the effort to complete the activity 1 Dependent. The helper does all the effort to complete an activity 7 Patient refused to complete or attempt activity 9 The patient did not perform the activity before the current illness or injury 88 Not attempted due to Medical conditions or safety concerns Transfers (B, C, W/C) (FIM): 5 Scootin (use of bedrail and increased effort) Rollin (use of bedrail) Supine to/from Sit: 5 (following instruction for log roll, use of bedrail) Sit to/from Stand: 5 (good hand placement, slow transitions but able to rise upon 1st attempt) Weight Bearing Right Lower Extremity: Right Full Weight Bearing Left Lower Extremity: Left Full Weight Bearing Gait Training Does the Patient Walk?: Yes Gait (FIM): 5 Distance (FIM): 3=150 ft Distance: 300 Gait Level of Assist: 5 Gait Persons Needed: 1 Gait Assistive Device: FWW slow steady gait, requiring several standing rest breaks, fwd flexed posture, decreased step length and height, able to follow instruction to increase step height and decrease distance from walker Treatments bed mobility, transfer, safety, gait, don/doff back support brace with mod A, activity tolerance, functional mobility, bathroom/alex care SBA Assessment Current Status: Good Progress PT Short Term Goals Short Term Goals Time Frame: July 20, 2018 Transfers (B,C,W/C) (FIM): 4 (met) Gait (FIM): 4 Gait Distance Comment: 150' Gait Level of Assist: 4 Gait Assistive Device: FWW PT Edge Stripper Goals Edge Stripper Goals PT Edge Stripper Goals Time Frame: Aug 03, 2018 Transfers (B,C,W/C) (FIM): 5 Sit to Lying (QC): 4 Lying-Sitting on Side/Bed(QC): 4 Sit to Stand (QC): 4 Rollin (use of bedrail) Roll Left to Right (QC): 4 Chair/Lwu-ik-Tbnqk Xfer(QC): 4 Car Transfer (QC): 4 Gait (FIM): 5 Distance: 200' Walk 10 feet (QC): 4 Walk 10ft-Uneven Surface(QC): 4 Walk 50ft with 2 Turns (QC): 4 Walk 150 ft (QC): 4 Gait Level of Assist: 5 Gait Assistive Device: FWW Stairs (FIM): 2 # of Steps: 4 1 Step (curb) (QC): 4 4 Steps (QC): 4 Stairs Level Of Assist: 4 PT Plan Treatment/Plan Treatment Plan: Continue Plan of Care Treatment Plan: Bed Mobility, Education, Functional Activity French, Functional Strength, Group Therapy, Gait, Safety, Therapeutic Exercise, Transfers Treatment Duration: Aug 03, 2018 Frequency: At least 5 of 7 days/Wk (IRF) Estimated Hrs Per Day: 1.5 hours per day Patient and/or Family Agrees t: Yes Safety Risks/Education Patient Education: Gait Training, Transfer Techniques, Reviewed Don/Doff Brace, Safety Issues Teaching Recipient: Patient Teaching Methods: Discussion Response to Teaching: Verbalize Understanding, Reinforcement Needed Time/GCodes Time In: 926 Time Out: 945 Total Billed Treatment Time: 19 Total Billed Treatment 1 visit, GT x 1 unit JOSE RAFAELCHELSIEBRANDIN BANANA LOADER Jul 22, 2018 12:27
--- NOTE | 2018-07-22 14:33 | NUR ---
Malka is a 72 yo female present on the ARU post T10-S1 spinal fusion and removal of hardware. Malka is A&O X 4 and is able to verbalize needs appropriately. Malka needs motivation to initiate task such as oral intake and weight shifting. Patient was encourage to increase oral intake d/t dark urine, patient responded appropriately. Daily dressing change per orders. Prednisone is currently being nazia at this time. No further issues noted. This nurse will continue to monitor the patient.
[2018-07-22] MEDS: TAMSULOSIN 0.4 MG (FLOMAX) CAP PO SCH (16:51)
[2018-07-22 17:17] VITALS: BP 135/71
[2018-07-22] MEDS: POLYETHYLENE GLYCOL 17 GM (MIRALAX) PACK PO SCH (19:21)
[2018-07-23] MEDS: oxyCODONE/APAP 5/325MG (PERCOCET 5) TABLET PO PRN ×3 (03:05→13:37)
[2018-07-23] MEDS: CATHETER FLUSH 10 ML SYR IV SCH ×3 (05:58→20:49)
[2018-07-23] MEDS: MULTIVIT W/MINERALS TAB (THERAGRAN M) PO SCH (05:58)
[2018-07-23 06:19] VITALS: BP 157/65
[2018-07-23] MEDS: RT-ALBUTEROL/IPRATROPIUM 3 ML (DUONEB) VIAL INH SCH ×4 (06:45→20:05)
[2018-07-23] MEDS: RT-ADVAIR HFA 115/21 MCG PER PUFF IH SCH ×2 (06:46→20:05)
[2018-07-23] MEDS: FAMOTIDINE 20 MG (PEPCID) TABLET PO SCH (08:50)
[2018-07-23] MEDS: PANTOPRAZOLE 40 MG (PROTONIX) TAB PO SCH (08:51)
[2018-07-23] MEDS: SENNA W/DOCUSATE (SENOKOT S) TABLET PO SCH ×2 (08:51→20:04)
[2018-07-23] MEDS: predniSONE 10 MG TAB PO SCH (08:51)
[2018-07-23] MEDS: BETHANECHOL 10 MG (URECHOLINE) TAB PO SCH ×2 (08:51→20:04)
[2018-07-23] MEDS: lisINopril 20 MG (PRINIVIL) TABLET PO SCH (08:51)
[2018-07-23] MEDS: meTOprolol SUCCINATE 100 MG (TOPROL XL) TAB PO SCH (08:51)
[2018-07-23 08:53] VITALS: BP 146/72
--- NOTE | 2018-07-23 09:40 | Progress Note-Urology ---
Progress Note-Urology Progress Notes/Assess & Plan Progress/Assessment & Plan CONTINUES VOIDING ON OWN ON 10MG URECHOLINE BID. WE WILL CONTINUE WEANING IN 1-2 DAYS Final Diagnosis URINE RETENTION AJAY MACHUCA MD Jul 23, 2018 09:40
[2018-07-23] MEDS ORDERED: POLYETHYLENE GLYCOL 17 GM (MIRALAX) PACK PO PRN (10:15)
--- NOTE | 2018-07-23 10:28 | NUR ---
No BM since 07/18/18. Miralax and Senokot given this AM.
--- NOTE | 2018-07-23 11:22 | PM&R Progress Note ---
Subjective HPI/CC On Admission Date Seen by Provider: Jul 23, 2018 Time Seen by Provider: 11:15 CC: Thoracic lumbar spine surgery HPI: This is a 72yoWF clinic patient of Dr Cancino in [place], [place] know to me from prior spine surgery admits w/h/o severe O2 dependent COPD who continues to smoke who presents to the IRF unit in need of intensive rehab in order to return home with her . Patient is doing ok today just having back pain and a cough. Patient was recently dx with pneumonia and placed on aggressive treatment by Dr Lubin whom his expertise is much appreciated and the patient appreciates his help. No BM for now 4 days post op and that is being addressed more aggressively today. PLOF was independent with ambulation and ADL's. I have reviewed her labs and we are in the midst of correction of her abnormal pearl ctrolytes with supplements. Nebs are ordered along with IV antibiotics and IV steroids. Iron with very low along with hemoglobin so will start Venofer. Potassium will be supplemented 20meq PO TID for 3 days Drain is now out. Urinary retention this morning so have consulted Dr Lane for retention. Subjective/Events-last exam Pt is much improved today even better than yesterday and seems to be really improving by the day Phosphorus is low today Completed Zosyn 3 days ago Venofer will be completed for iron deficiency anemia Received transfusion six days ago and has really responded Overall patient feels much better and appears to be able to progress better now Participating in all therapy much better but getting some rest today BM 07/18/18 and has been refusing meds so we have talked her in to taking a few Senna and I have ordered suppository also Reviewed therapy notes Checking labs in am Lungs are completely clear today Conferred with provisioning analyst of Systems General: Fatigue Gastrointestinal: Constipation Musculoskeletal: back pain Objective Exam Vital Signs Vital Signs Date Time Temp Pulse Resp B/P (MAP) Pulse Ox O2 Delivery O2 Flow Rate FiO2 07/23/18 17:20 98.1 69 16 149/74 (99) 96 Nasal Cannula 2.00 07/22/18 06:15 34 Capillary Refill : General Appearance: No Apparent Distress, WD/WN, Chronically ill, Thin, Other (improved) HEENT: PERRL/EOMI, TMs Normal, Normal ENT Inspection, Pharynx Normal, Moist Mucous Membranes Neck: Full Range of Motion, Normal Inspection, Non Tender, Supple Respiratory: Chest Non Tender, Lungs Clear, Normal Breath Sounds, No Accessory Muscle Use, No Respiratory Distress Cardiovascular: Regular Rate, Rhythm, No Edema, No Gallop, No JVD, No Murmur Gastrointestinal: Normal Bowel Sounds, No Organomegaly, No Pulsatile Mass, Non Tender, Soft Back: Decreased Range of Motion Extremity: Normal Capillary Refill, Normal Inspection, Other (5/5 motor crow LE, NVSI, wound CDI, drain in place) Neurologic/Psychiatric: Alert, Oriented x3, No Motor/Sensory Deficits, Normal Mood/Affect Skin: Normal Color, Warm/Dry Lymphatic: No Adenopathy Results/Procedures Lab Patient resulted labs reviewed. FIM Transfers Therapy Code Descriptions/Definitions Functional [place] Measure: 0=Not Assessed/NA 4=Minimal Assistance 1=Total Assistance 5=Supervision or Setup 2=Maximal Assistance 6=Modified [place] 3=Moderate Assistance 7=Complete [place] Therapy Quality Codes: 6 Independent with activity with or without an assistive device 5 Patient requires set up or clean up by helper. Patient completes activity by themselves 4 Supervision or touching assist (CGA). [place] provide cues , steadying assist 3 The helper provides less than half the effort to complete the activity 2 The helper provides more than half the effort to complete the activity 1 Dependent. The helper does all the effort to complete an activity 7 Patient refused to complete or attempt activity 9 The patient did not perform the activity before the current illness or injury 88 Not attempted due to Medical conditions or safety concerns Transfers (B, C, W/C) (FIM): 5 Scootin (use of bedrail and increased effort) Rollin (use of bedrail) Roll Left to Right (QC): 3 Supine to/from Sit: 5 (following instruction for log roll, use of bedrail) Sit to/from Stand: 5 (good hand placement, slow transitions but able to rise upon 1st attempt) Sit to Lying (QC): 2 Sit to Stand (QC): 3 Chair/Dne-vk-Bqzoc Xfer(QC): 5 Bed to/from Chair: 5 Car Transfer (QC): 3 Gait Training Does the Patient Walk?: Yes Gait (FIM): 5 Distance (FIM): 3=150 ft Distance: 300 Walk 10 feet (QC): 4 Walk 50 ft with 2 Turns(QC): 4 Walking 10ft/uneven surface-QC: 3 Gait Level of Assist: 5 Gait Persons Needed: 1 Gait Assistive Device: FWW Wheelchair Training Does the Pt Use a Wheelchair?: No Stair Training Stairs (FIM): 1 #of Steps: 1 1 Step (curb) (QC): 3 Level of Assist: 4 Mental Status/Objective Comprehension: 7 Expression: 7 Social Interaction: 7 Problem Solvin Memory: 7 ADL-Treatment Groomin Oral Hygiene (QC): 6 Bathin Bathing Location: L Arm, R Arm, L Upper Leg, R Upper Leg, L Lower Leg (including foot), R Lower Leg (including foot), Chest, Abdomen Shower/Bathe Self (QC): 5 Lower Extremity Dressin Lower Body Dressing (QC): 5 On/Off Footwear (QC): 6 Toiletin Toileting Hygiene (QC): 4 Toilet/Commode Transfer: 5 Toilet Transfer (QC): 4 Assessment/Plan Assessment and Plan Assess & Plan/Chief Complaint Assessment: Extensive spinal surgery POD # 13 uncomplicated AECOPD Pneumonia Anemia-transfusion required Hyponatremia Hypokalemia Smoker Frail status Constipation-resolved Back pain Elevated BNP PHTN Plan: Pain control BM regimen to increase today Potassium with Lasix Abx Steroids Venofer Transfusion of 1 unit of blood 6 days ago Very guarded prognosis given the severity of her COPD and recent pneumonia but appears improved Consultation by Dr Cadena is appreciated (1) JUNCTIONAL KYPHOSIS (2) COPD (chronic obstructive pulmonary disease) (3) Hypokalemia (4) Urinary retention (5) Anemia (6) Atelectasis (7) Hyperlipidemia (8) Hyponatremia (9) Leukocytosis (10) GERD (gastroesophageal reflux disease) (11) Hypertension (12) Pneumonia (13) Lumbar spinal stenosis (14) Oxygen dependent (15) Frailty (16) RESPIRATORY FAILURE, UNSP, UNSP W HYPOXIA OR HYPERCAPNIA (17) Smoker (18) Transfusion of blood during current hospitalization (19) Dyspnea (20) Pulmonary hypertension MAGDALENE ANDRES DO Jul 23, 2018 11:22
--- NOTE | 2018-07-23 11:32 | NUR ---
Phosphorus is 1.7. Dr. Galvan notified. Will repeat labs in AM... CBC, CMP, Mag, and Phosphorus. Notify Dr. Lubin of low Phosphorus in AM.
--- NOTE | 2018-07-23 13:52 | NUR ---
Up walking in halls with PCCT.
[2018-07-23] MEDS: TAMSULOSIN 0.4 MG (FLOMAX) CAP PO SCH (17:04)
[2018-07-23 17:20] VITALS: BP 149/74
[2018-07-23] MEDS: POLYETHYLENE GLYCOL 17 GM (MIRALAX) PACK PO SCH (20:04)
[2018-07-24 05:48] VITALS: BP 130/67
[2018-07-24] MEDS: MULTIVIT W/MINERALS TAB (THERAGRAN M) PO SCH (05:57)
[2018-07-24] MEDS: CATHETER FLUSH 10 ML SYR IV SCH ×3 (05:58→21:37)
[2018-07-24 06:32] LABS: BASOPHILS % (AUTO) 0 % (0-10); EOSINOPHILS % (AUTO) 0 % (0-10); HEMATOCRIT 32 % (35-52); HEMOGLOBIN 10.7 G/DL (11.5-16.0); LYMPHOCYTES # (AUTO) 2.9 X 10^3 (1.0-4.0); LYMPHOCYTES % (AUTO) 27 % (12-44); MEAN CORPUSCULAR HEMOGLOBIN 32 PG (25-34); MEAN CORPUSCULAR HGB CONC 33 G/DL (32-36); MEAN CORPUSCULAR VOLUME 96 FL (80-99); MONOCYTES # (AUTO) 1.5 X 10^3 (0.0-1.0); MONOCYTES % (AUTO) 14 % (0-12); NEUTROPHILS # (AUTO) 6.1 X 10^3 (1.8-7.8); NEUTROPHILS % (AUTO) 58 % (42-75); PLATELET COUNT 379 10^3/uL (130-400); RED CELL DISTRIBUTION WIDTH 17.4 % (10.0-14.5); WHITE BLOOD COUNT 10.5 10^3/uL (4.3-11.0)
[2018-07-24] MEDS: RT-ALBUTEROL/IPRATROPIUM 3 ML (DUONEB) VIAL INH SCH ×3 (06:44→19:53)
[2018-07-24] MEDS: RT-ADVAIR HFA 115/21 MCG PER PUFF IH SCH ×2 (06:47→19:53)
[2018-07-24 06:53] LABS: ALANINE AMINOTRANSFERASE 24 U/L (0-55); ALBUMIN 3.2 GM/DL (3.2-4.5); ALKALINE PHOSPHATASE 67 U/L (40-136); BILIRUBIN,TOTAL 0.3 MG/DL (0.1-1.0); BUN/CREATININE RATIO 19; CALCIUM 8.3 MG/DL (8.5-10.1); CARBON DIOXIDE 23 MMOL/L (21-32); CHLORIDE 107 MMOL/L (98-107); CREATININE SERUM 0.58 MG/DL (0.60-1.30); GFR ESTIMATED > 60; GLUCOSE 94 MG/DL (70-105); POTASSIUM 3.5 MMOL/L (3.6-5.0); SODIUM 136 MMOL/L (135-145); TOTAL PROTEIN 5.4 GM/DL (6.4-8.2)
[2018-07-24 07:52] LABS: PHOSPHORUS 1.7 MG/DL (2.3-4.7)
--- NOTE | 2018-07-24 08:11 | Physical Therapy Daily Note ---
PT Daily Note-Current Subjective Pt reports she is pretty hungry this morning, stating that is good because she has not been feeling much like eating the last few weeks. States she had a bowel movement earlier this morning, incontinent and nursing was able to assist her in cleaning up. Pt agreeable to PT session. Pt states she wants to go home soon. States she does have help at home to assist with anything she needs, even with getting her back brace on. Pain Numeric Pain Scale: 4 Comment: middle of back, right sidelying in bed Appearance Upon arrival, pt R side lying in bed, eyes closed but easily aroused. Physician assistant news director present during part of session. Nursing present during part of session. 2 seperate physician visits during part of session. Pt requesting breakfast, assisted pt in ordering Pt requesting and assisted to bathroom, min A required donning/doffing briefs and with alex care At end of session, pt sitting up in recliner with LE's elevated, call light, phone and bedside table within reach Mental Status Patient Orientation: Person, Place, Time, Eyes Open, Situation Attachments: [place] Lock back support brace Transfers Therapy Code Descriptions/Definitions Functional [place] Measure: 0=Not Assessed/NA 4=Minimal Assistance 1=Total Assistance 5=Supervision or Setup 2=Maximal Assistance 6=Modified [place] 3=Moderate Assistance 7=Complete [place] Therapy Quality Codes: 6 Independent with activity with or without an assistive device 5 Patient requires set up or clean up by helper. Patient completes activity by themselves 4 Supervision or touching assist (CGA). [place] provide cues , steadying assist 3 The helper provides less than half the effort to complete the activity 2 The helper provides more than half the effort to complete the activity 1 Dependent. The helper does all the effort to complete an activity 7 Patient refused to complete or attempt activity 9 The patient did not perform the activity before the current illness or injury 88 Not attempted due to Medical conditions or safety concerns Transfers (B, C, W/C) (FIM): 5 Scootin Rollin Supine to/from Sit: 5 Sit to/from Stand: 5 Pt able to stand upon 1st attempt with all sit to stand transfers, requires verb inst for hand placement for ease of transfers Weight Bearing Right Lower Extremity: Right Full Weight Bearing Left Lower Extremity: Left Full Weight Bearing Gait Training Does the Patient Walk?: Yes Gait (FIM): 5 Distance (FIM): 3=150 ft Gait Level of Assist: 5 (SBA, assist with O2 tank) Gait Persons Needed: 1 Gait Assistive Device: FWW slow steady speed, occasional standing rest breaks, SOA and fatigue Stair Training Stair Training: Handrails/: 2 handrails #of Steps: 4 Stairs: Pattern: Step to (asending leading with RLE, descending leading with LLE) Level of Assist: 4 (CGA provided with gait belt, pt stating not feeling very strong) instruction required for technique due to LLE weakness Exercises Supine Ex: Ankle pumps (50 each (+)toe curls), Quad Set (x20), Glut sets (2x10), Heel Slides, Hip abd/add (2x10) Seated Therapy Exercises: Ankle pumps (50), Long arc quads (20), Hip flexion (20, alt LE's), Hip abd/add breathing techniques taught and pt performed to assist in regaining regular breathing rate and deeper breathing Treatments bed mobility, strengthening, balance, stairs, gait, transfers, breathing techniques, education, activity tolerance, bathroom/alex care, functional mobility, don/doff back brace Assessment Current Status: Good Progress (increasing gait distance, continues to require verb inst for hand placement during sit to and from stand transitions) PT Short Term Goals Short Term Goals Time Frame: July 20, 2018 Transfers (B,C,W/C) (FIM): 4 (met) Gait (FIM): 4 Gait Distance Comment: 150' Gait Level of Assist: 4 Gait Assistive Device: FWW PT Care Home Goals Pewter Finisher Goals PT [place] Finisher Goals Time Frame: Aug 03, 2018 Transfers (B,C,W/C) (FIM): 5 Sit to Lying (QC): 4 Lying-Sitting on Side/Bed(QC): 4 Sit to Stand (QC): 4 Rollin (use of bedrail) Roll Left to Right (QC): 4 Chair/Tzj-om-Mpqic Xfer(QC): 4 Car Transfer (QC): 4 Gait (FIM): 5 Distance: 200' Walk 10 feet (QC): 4 Walk 10ft-Uneven Surface(QC): 4 Walk 50ft with 2 Turns (QC): 4 Walk 150 ft (QC): 4 Gait Level of Assist: 5 Gait Assistive Device: FWW Stairs (FIM): 2 # of Steps: 4 1 Step (curb) (QC): 4 4 Steps (QC): 4 Stairs Level Of Assist: 4 PT Plan Treatment/Plan Treatment Plan: Continue Plan of Care Treatment Plan: Bed Mobility, Education, Functional Activity French, Functional Strength, Group Therapy, Gait, Safety, Therapeutic Exercise, Transfers Treatment Duration: Aug 03, 2018 Frequency: At least 5 of 7 days/Wk (IRF) Estimated Hrs Per Day: 1.5 hours per day Patient and/or Family Agrees t: Yes Safety Risks/Education Patient Education: Gait Training, Transfer Techniques, Steps, Reviewed Don/Doff Brace, Safety Issues Teaching Recipient: Patient Teaching Methods: Discussion Response to Teaching: Verbalize Understanding, Return Demonstration, Reinf orcement Needed Time/GCodes Time In: 800 Time Out: 930 Total Billed Treatment Time: 90 Total Billed Treatment 1 visit, GT x 2 units, FA x2 units, EX x2 units BRANDIN MANTILLA PTA Jul 24, 2018 08:11
--- NOTE | 2018-07-24 08:13 | PM&R Progress Note ---
Subjective HPI/CC On Admission Date Seen by Provider: Jul 24, 2018 Time Seen by Provider: 08:15 CC: Thoracic lumbar spine surgery HPI: This is a 72yoWF clinic patient of Dr Cancino in [place], [place] know to me from prior spine surgery admits w/h/o severe O2 dependent COPD who continues to smoke who presents to the IRF unit in need of intensive rehab in order to return home with her . Patient is doing ok today just having back pain and a cough. Patient was recently dx with pneumonia and placed on aggressive treatment by Dr Lubin whom his expertise is much appreciated and the patient appreciates his help. No BM for now 4 days post op and that is being addressed more aggressively today. PLOF was independent with ambulation and ADL's. I have reviewed her labs and we are in the midst of correction of her abnormal electro lytes with supplements. Nebs are ordered along with IV antibiotics and IV steroids. Iron with very low along with hemoglobin so will start Venofer. Potassium will be supplemented 20meq PO TID for 3 days Drain is now out. Urinary retention this morning so have consulted Dr Lane for retention. Subjective/Events-last exam Pt doing much better Potassium 3.5, Phosphorus 1.7, Magnesium is normal She was mad because she had to walk yesterday with no formal PT the nurse did walk her Suppository today will be given since last BM was July 18 Overall pain is much controlled Conferred with RN Reviewed therapy notes Likely will leave IV out since it infiltrated and I don't require it at this time Review of Systems General: Fatigue Gastrointestinal: Constipation Musculoskeletal: back pain Objective Exam Vital Signs Vital Signs Date Time Temp Pulse Resp B/P (MAP) Pulse Ox O2 Delivery O2 Flow Rate FiO2 07/24/18 20:00 Nasal Cannula 2.00 07/24/18 19:53 96 07/24/18 15:42 98.2 61 18 108/61 (77) 07/22/18 06:15 34 Capillary Refill : General Appearance: No Apparent Distress, WD/WN, Chronically ill, Thin, Other (improved) HEENT: PERRL/EOMI, TMs Normal, Normal ENT Inspection, Pharynx Normal, Moist Mucous Membranes Neck: Full Range of Motion, Normal Inspection, Non Tender, Supple Respiratory: Chest Non Tender, Lungs Clear, Normal Breath Sounds, No Accessory Muscle Use, No Respiratory Distress Cardiovascular: Regular Rate, Rhythm, No Edema, No Gallop, No JVD, No Murmur Gastrointestinal: Normal Bowel Sounds, No Organomegaly, No Pulsatile Mass, Non Tender, Soft Back: Decreased Range of Motion Extremity: Normal Capillary Refill, Normal Inspection, Other (5/5 motor crow LE, NVSI, wound CDI, drain in place) Neurologic/Psychiatric: Alert, Oriented x3, No Motor/Sensory Deficits, Normal Mood/Affect Skin: Normal Color, Warm/Dry Lymphatic: No Adenopathy Results/Procedures Lab Laboratory Tests 07/24/18 05:43 Patient resulted labs reviewed. FIM Transfers Therapy Code Descriptions/Definitions Functional [place] Measure: 0=Not Assessed/NA 4=Minimal Assistance 1=Total Assistance 5=Supervision or Setup 2=Maximal Assistance 6=Modified [place] 3=Moderate Assistance 7=Complete [place] Therapy Quality Codes: 6 Independent with activity with or without an assistive device 5 Patient requires set up or clean up by helper. Patient completes activity by themselves 4 Supervision or touching assist (CGA). [place] provide cues , steadying assist 3 The helper provides less than half the effort to complete the activity 2 The helper provides more than half the effort to complete the activity 1 Dependent. The helper does all the effort to complete an activity 7 Patient refused to complete or attempt activity 9 The patient did not perform the activity before the current illness or injury 88 Not attempted due to Medical conditions or safety concerns Transfers (B, C, W/C) (FIM): 5 Scootin (use of bedrail and increased effort) Rollin (use of bedrail) Roll Left to Right (QC): 3 Supine to/from Sit: 5 (following instruction for log roll, use of bedrail) Sit to/from Stand: 5 (good hand placement, slow transitions but able to rise upon 1st attempt) Sit to Lying (QC): 2 Sit to Stand (QC): 3 Chair/Hjq-my-Mevbl Xfer(QC): 5 Bed to/from Chair: 5 Car Transfer (QC): 3 Gait Training Does the Patient Walk?: Yes Gait (FIM): 5 Distance (FIM): 3=150 ft Distance: 300 Walk 10 feet (QC): 4 Walk 50 ft with 2 Turns(QC): 4 Walking 10ft/uneven surface-QC: 3 Gait Level of Assist: 5 Gait Persons Needed: 1 Gait Assistive Device: FWW Wheelchair Training Does the Pt Use a Wheelchair?: No Stair Training Stairs (FIM): 1 #of Steps: 1 1 Step (curb) (QC): 3 Level of Assist: 4 Mental Status/Objective Comprehension: 7 Expression: 7 Social Interaction: 7 Problem Solvin Memory: 7 ADL-Treatment Groomin Oral Hygiene (QC): 6 Bathin Bathing Location: L Arm, R Arm, L Upper Leg, R Upper Leg, L Lower Leg (including foot), R Lower Leg (including foot), Chest, Abdomen Shower/Bathe Self (QC): 5 Lower Extremity Dressin Lower Body Dressing (QC): 5 On/Off Footwear (QC): 6 Toiletin Toileting Hygiene (QC): 4 Toilet/Commode Transfer: 5 Toilet Transfer (QC): 4 Assessment/Plan Assessment and Plan Assess & Plan/Chief Complaint Assessment: Extensive spinal surgery POD # 14 uncomplicated AECOPD Pneumonia Anemia-transfusion required Hyponatremia Hypokalemia Smoker Frail status Constipation-resolved Back pain Elevated BNP PHTN Plan: Pain control BM regimen to increase today Potassium with Lasix Abx Steroids completed Venofer Transfusion of 1 unit of blood 7 days ago Very guarded prognosis long-term Consultation by Dr Cadena is appreciated (1) JUNCTIONAL KYPHOSIS (2) COPD (chronic obstructive pulmonary disease) (3) Hypokalemia (4) Urinary retention (5) Anemia (6) Atelectasis (7) Hyperlipidemia (8) Hyponatremia (9) Leukocytosis (10) GERD (gastroesophageal reflux disease) (11) Hypertension (12) Pneumonia (13) Lumbar spinal stenosis (14) Oxygen dependent (15) Frailty (16) RESPIRATORY FAILURE, UNSP, UNSP W HYPOXIA OR HYPERCAPNIA (17) Smoker (18) Transfusion of blood during current hospitalization (19) Dyspnea (20) Pulmonary hypertension MAGDALENE ANDRES DO Jul 24, 2018 08:13
[2018-07-24 08:17] VITALS: BP 132/74
[2018-07-24] MEDS: oxyCODONE/APAP 5/325MG (PERCOCET 5) TABLET PO PRN ×3 (08:18→21:39)
[2018-07-24] MEDS: predniSONE 10 MG TAB PO SCH (08:18)
[2018-07-24] MEDS: SENNA W/DOCUSATE (SENOKOT S) TABLET PO SCH ×2 (08:18→21:38)
[2018-07-24] MEDS: PANTOPRAZOLE 40 MG (PROTONIX) TAB PO SCH (08:18)
[2018-07-24] MEDS: FAMOTIDINE 20 MG (PEPCID) TABLET PO SCH (08:19)
[2018-07-24] MEDS: lisINopril 20 MG (PRINIVIL) TABLET PO SCH (08:19)
[2018-07-24] MEDS: BETHANECHOL 10 MG (URECHOLINE) TAB PO SCH ×2 (08:19→21:38)
[2018-07-24] MEDS: meTOprolol SUCCINATE 100 MG (TOPROL XL) TAB PO SCH (08:21)
--- NOTE | 2018-07-24 08:43 | Cardiology Progress Note ---
Subjective Date Seen by Provider: Jul 24, 2018 Time Seen by Provider: 08:40 Subjective/Events-last exam Patient is in bed, feeling better, breathing better, no new complaint Review of Systems General: No Chills, No Night Sweats, No Fatigue, No Malaise, No Appetite, No Other HEENT: No Head Aches, No Visual Changes, No Eye Pain, No Ear Pain, No Dysphasia, No Sinus Congestion, No Post Nasal Drip, No Sore Throat, No Other Pulmonary: Dyspnea; No Cough, No Pleuritic Chest Pain, No Other Cardiovascular: No: Chest Pain, Palpitations, Orthopnea, Paroxysmal Noc. Dyspnea, Edema, Lt Headedness, Other Objective-Cardiology Exam Last Set of Vital Signs Vital Signs 07/22/18 07/24/18 07/24/18 06:15 05:48 08:17 Temp 97.9 Pulse 69 Resp 20 B/P (MAP) 132/74 (93) Pulse Ox 94 O2 Delivery Nasal Cannula O2 Flow Rate 2.00 FiO2 34 Capillary Refill : I&O Intake and Output 07/24/18 00:00 Intake Total 1260 ml Output Total 1500 ml Balance -240 ml Intake Oral 1260 ml Output Urine Total 1500 ml Bladder Scan Volume Amount 34 ml 34 ml General: Alert, Oriented X3, Cooperative HEENT: Atraumatic, PERRLA Neck: Supple, No JVD, No Thyromegaly Lungs: Normal Air Movement, Other (bilateral rhonchi) Heart: Regular Rate, Normal S1, Normal S2, No Murmurs Abdomen: Normal Bowel Sounds, Soft, No Tenderness, No Hepatosplenomegaly, No Masses Extremities: No Clubbing, No Cyanosis, No Edema, Normal Pulses, No Tendern ess/Swelling Skin: No Rashes, No Breakdown, No Significant Lesion Neuro: Normal Speech, Strength at 5/5 X4 Ext, Sensation Intact Psych/Mental Status: Mental Status NL, Mood NL Results Lab Laboratory Tests 07/24/18 05:43 A/P-Cardiology Admission Diagnosis Shortness of breath COPD Coronary artery disease Hypertension Assessment/Plan Shortness of breath, acute exacerbation of COPD. Mild elevation in BNP, echocardiogram is normal, reporting improvement, continue to monitor 2-D echo done on July 21, 2018 showing normal LV size and systolic function, estimated ejection fraction 60 percent, severe pulmonary hypertension with PA pressure of 50 mmHg. Coronary artery disease, reporting cardiac catheterization done about 15 years ago, had a stress test done in September 2016 showing no ischemia or infarction with normal LV size and function. continue to monitor Hypertension, good control, monitor blood pressure Hyperlipidemia, monitor lipids Tobaccoism, has stopped smoking on admission to the hospital, educated on the importance of smoking cessation Strong family history of heart disease. Status post multiple back surgeries, receiving physical therapy. Clinical Quality Measures DVT/VTE Risk/Contraindication: Risk Factor Score Per Nursin RFS Level Per Nursing on Admit: 4+=Very High ORTEGA SCHAEFFER MD Jul 24, 2018 08:43
[2018-07-24] MEDS ORDERED: POTASSIUM PHOSPHATE INJ 30 MM in NS (IVPB) 250 ML IV ONE (09:15)
--- NOTE | 2018-07-24 09:41 | NUR ---
Phosphorus is 1.7. Dr. Lubin notified. Orders to give KPhos- 30mmol IV X1. Repeat labs in AM- CBC, CMP, Mag, and Phosphorus.
--- NOTE | 2018-07-24 09:48 | Pulmonary Progress Note ---
Sepsis Event Evaluation Height, Weight, BMI Height: 5'2.00" Weight: 129lbs. 0.8oz. 58.984005os; 24.1 BMI Method: Exam Exam Vital Signs Date Time Temp Pulse Resp B/P (MAP) Pulse Ox O2 Delivery O2 Flow Rate FiO2 07/24/18 09:22 Nasal Cannula 2.00 07/24/18 08:17 69 20 132/74 (93) 94 Nasal Cannula 2.00 07/24/18 06:44 96 Nasal Cannula 1.00 07/24/18 05:48 97.9 58 20 130/67 (88) 97 Nasal Cannula 2.00 07/23/18 20:16 96 Nasal Cannula 1.00 07/23/18 20:05 97 Nasal Cannula 2.00 07/23/18 20:00 Nasal Cannula 2.00 07/23/18 17:20 98.1 69 16 149/74 (99) 96 Nasal Cannula 2.00 07/23/18 15:08 95 Nasal Cannula 2.00 07/23/18 10:50 97 Nasal Cannula 2.00 I & O 07/24/18 07:00 Intake Total 1160 ml Output Total 1050 ml Balance 110 ml Height & Weight Height: 5'2.00" Weight: 129lbs. 0.8oz. 58.088841ae; 24.1 BMI Method: General Appearance: No Apparent Distress, WD/WN, Chronically ill, Thin, Other (improved) HEENT: PERRL/EOMI, TMs Normal, Normal ENT Inspection, Pharynx Normal, Moist Mucous Membranes Neck: Full Range of Motion, Normal Inspection, Non Tender, Supple Respiratory: Chest Non Tender, Lungs Clear, Normal Breath Sounds, No Accessory Muscle Use, No Respiratory Distress Cardiovascular: Regular Rate, Rhythm, No Edema, No Gallop, No JVD, No Murmur Gastrointestinal: normal bowel sounds, non tender, soft Extremity: Normal Capillary Refill, Normal Inspection, Other (5/5 motor crow LE, NVSI, wound CDI, drain in place) Neurologic/Psychiatric: Alert, Oriented x3, No Motor/Sensory Deficits, Normal Mood/Affect Skin: Normal Color, Warm/Dry Lymphatic: No Adenopathy Results Lab Laboratory Tests 07/24/18 05:43 Assessment/Plan Assessment/Plan s/p thoracolumbar fusion Chronic COPD - Pt is on 3 liters of oxygen at home -SVNS -Monitor -Advair PNA - resolving -Leukocytosis - improving and no fever -S/p Zosyn -Repeat CXR Hypokalemia, hypophos -replace -Monitor Anemia - post op -Monitor FELICIA LOPEZ DO Jul 24, 2018 09:48
--- NOTE | 2018-07-24 10:26 | Occupational Ther Daily Note ---
OT Current Status-Daily Note Subjective Pt alert, sitting in recliner. Pt agrees to therapy. No c/o pain, at this time. Mental Status/Objective Patient Orientation: Person, Place, Time, Situation Therapy Code Descriptions/Definitions Functional [place] Measure: 0=Not Assessed/NA 4=Minimal Assistance 1=Total Assistance 5=Supervision or Setup 2=Maximal Assistance 6=Modified [place] 3=Moderate Assistance 7=Complete [place] Attachments: IV, Oxygen (3.5) ADL-Treatment Pt agrees to shower. Declines donning regular clothing. Pt ambulated to bathroom using FWW, SBA. Transfers to toilet and shower using FWW and grabbars, SBA. Pt able to bring feet up to doff/don socks. Pt able to manipulate hospital gown after set up. Pt completed shower with assist to shampoo hair and completed all other areas with supervision. Pt took increased time due to multiple recovery breaks. Therapy Code Descriptions/Definitions Functional [place] Measure: 0=Not Assessed/NA 4=Minimal Assistance 1=Total Assistance 5=Supervision or Setup 2=Maximal Assistance 6=Modified [place] 3=Moderate Assistance 7=Complete [place] Therapy Quality Codes: 6 Independent with activity with or without an assistive device 5 Patient requires set up or clean up by helper. Patient completes activity by themselves 4 Supervision or touching assist (CGA). [place] provide cues , steadying assist 3 The helper provides less than half the effort to complete the activity 2 The helper provides more than half the effort to complete the activity 1 Dependent. The helper does all the effort to complete an activity 7 Patient refused to complete or attempt activity 9 The patient did not perform the activity before the current illness or injury 88 Not attempted due to Medical conditions or safety concerns Bathing (FIM): 5 Bathing Location: L Arm, R Arm, L Upper Leg, R Upper Leg, L Lower Leg (including foot), R Lower Leg (including foot), Chest, Abdomen, Buttocks, Perineal Area Shower/Bathe Self (QC): 4 Lower Body Dressing (FIM): 5 Lower Body Dressing (QC): 5 On/Off Footwear (QC): 6 Toileting (FIM): 5 (Supervision.) Toileting Hygiene (QC): 4 Transfers (B, C, W/C) (FIM): 5 (SBA) Toilet/Commode Transfer (FIM): 5 (SBA) Toilet Transfer (QC): 4 Shower Transfer(FIM): 5 (SBA) Other Treatment Pt completed UE exercises with 2# wt, 1 set 15 reps. After therapy, pt lying in bed with call light/phone in reach. All needs met in room. OT Short Term Goals Short Term Goals Time Frame: July 20, 2018 Eating(FIM): 5 Grooming(FIM): 5 Bathing(FIM): 4 Upper Body Dressing(FIM): 4 Lower Body Dressing(FIM): 4 Toileting(FIM): 4 Transfers (B,C,W/C) (FIM): 4 (met) Toilet/Commode Transfer(FIM): 4 Shower Transfer(FIM): 3 Additional Short Term Goals: 1-Demonstrate ADL Tasks, 2-Verbalize Understanding, 3-ImproveStrength/French 1=Demonstrate adherence to instructed precautions during ADL tasks. 2=Patient will verbalize/demonstrate understanding of assistive device s/modifications for ADL. 3=Patient will improve strength/tolerance for activity to enable patient to perform ADL's. OT Group Home Goals Transcribing Machine Operator Goals Time Frame: Aug 03, 2018 Eating (FIM): 6 Eating (QC): 6 Groomin Oral Hygiene (QC): 4 Bathing(FIM): 5 Shower/Bathe Self (QC): 4 Upper Body Dressing(FIM): 5 Upper Body Dressing (QC): 4 Lower Body Dressing(FIM): 5 Lower Body Dressing (QC): 4 On/Off Footwear (QC): 4 Toileting(FIM): 6 Toileting Hygiene (QC): 5 Transfers (B,C,W/C) (FIM): 6 Toilet/Commode Transfer(FIM): 6 Toilet/Commode Transfer (QC): 5 Shower Transfer(FIM): 5 Comprehension(FIM): 6 Expression (FIM): 6 Social Interaction(FIM): 6 Problem Solving(FIM): 6 Memory(FIM): 6 Additional Goals: 1-Demonstrate ADL Tasks, 2-Verbalize Understanding, 3- ImproveStrength/French 1=Demonstrate adherence to instructed precautions during ADL tasks. 2=Patient will verbalize/demonstrate understanding of assistive devices/modifications for ADL. 3=Patient will improve strength/tolerance for activity to enable patient to perform ADL's. OT Education/Plan Problem List/Assessment Assessment: Decreased Activ Tolerance, Decreased UE Strength, Impaired Self- Care Skills Discharge Recommendations Plan/Recommendations: Continue POC Treatment Plan/Plan of Care Patient would benefit from OT for education, treatment and training to promote independence in ADL's, mobility, safety and/or upper extremity function for ADL's. Plan of Care: ADL Retraining, Functional Mobility, Group Exercise/Act as Ind, UE Funct Exercise/Act Treatment Duration: Aug 03, 2018 Frequency: At least 5 of 7 days/Wk (IRF) Estimated Hrs Per Day: 1.5 hours per day Agreement: Yes Rehab Potential: Fair Time/GCodes Start Time: 09:30 Stop Time: 10:30 Total Time Billed (hr/min): 60 Billed Treatment Time 1 visit-ADL 3 (50 min) EX 1 (10 min) MARICEL HERBERT Jul 24, 2018 10:26
--- NOTE | 2018-07-24 13:45 | Occupational Ther Daily Note ---
OT Current Status-Daily Note Subjective Pt alert, lying in bed. Pt agrees to therapy. No c/o pain at this time. Pt states that she is getting francisco out today. Mental Status/Objective Patient Orientation: Person, Place, Time, Situation Therapy Code Descriptions/Definitions Functional [place] Measure: 0=Not Assessed/NA 4=Minimal Assistance 1=Total Assistance 5=Supervision or Setup 2=Maximal Assistance 6=Modified [place] 3=Moderate Assistance 7=Complete [place] Attachments: IV, Oxygen ADL-Treatment Supine to EOB with HOB raised, mod I. Assist to don back brace, doffs brace by self. Pt ambulated with supervision using FWW to bathroom and transferred to toilet using FWW and grabbars. Pt able to complete clothing manipulation and hygiene with supervision. After therapy, pt lying in bed with call light/phone in reach. All needs met in room. Therapy Code Descriptions/Definitions Functional [place] Measure: 0=Not Assessed/NA 4=Minimal Assistance 1=Total Assistance 5=Supervision or Setup 2=Maximal Assistance 6=Modified [place] 3=Moderate Assistance 7=Complete [place] Therapy Quality Codes: 6 Independent with activity with or without an assistive device 5 Patient requires set up or clean up by helper. Patient completes activity by themselves 4 Supervision or touching assist (CGA). [place] provide cues , steadying assist 3 The helper provides less than half the effort to complete the activity 2 The helper provides more than half the effort to complete the activity 1 Dependent. The helper does all the effort to complete an activity 7 Patient refused to complete or attempt activity 9 The patient did not perform the activity before the current illness or i njury 88 Not attempted due to Medical conditions or safety concerns Toileting (FIM): 5 Toileting Hygiene (QC): 4 Transfers (B, C, W/C) (FIM): 5 Toilet/Commode Transfer (FIM): 5 Toilet Transfer (QC): 4 OT Short Term Goals Short Term Goals Time Frame: July 20, 2018 Eating(FIM): 5 Grooming(FIM): 5 Bathing(FIM): 4 Upper Body Dressing(FIM): 4 Lower Body Dressing(FIM): 4 Toileting(FIM): 4 Transfers (B,C,W/C) (FIM): 4 (met) Toilet/Commode Transfer(FIM): 4 Shower Transfer(FIM): 3 Additional Short Term Goals: 1-Demonstrate ADL Tasks, 2-Verbalize Understanding, 3-ImproveStrength/French 1=Demonstrate adherence to instructed precautions during ADL tasks. 2=Patient will verbalize/demonstrate understanding of assistive devices/modifications for ADL. 3=Patient will improve strength/tolerance for activity to enable patient to perform ADL's. OT Longterm Goals Welding Supervisor Goals Time Frame: Aug 03, 2018 Eating (FIM): 6 Eating (QC): 6 Groomin Oral Hygiene (QC): 4 Bathing(FIM): 5 Shower/Bathe Self (QC): 4 Upper Body Dressing(FIM): 5 Upper Body Dressing (QC): 4 Lower Body Dressing(FIM): 5 Lower Body Dressing (QC): 4 On/Off Footwear (QC): 4 Toileting(FIM): 6 Toileting Hygiene (QC): 5 Transfers (B,C,W/C) (FIM): 6 Toilet/Commode Transfer(FIM): 6 Toilet/Commode Transfer (QC): 5 Shower Transfer(FIM): 5 Comprehension(FIM): 6 Expression (FIM): 6 Social Interaction(FIM): 6 Problem Solving(FIM): 6 Memory(FIM): 6 Additional Goals: 1-Demonstrate ADL Tasks, 2-Verbalize Understanding, 3- ImproveStrength/French 1=Demonstrate adherence to instructed precautions during ADL tasks. 2=Patient will verbalize/demonstrate understanding of assistive devices/modifications for ADL. 3=Patient will improve strength/tolerance for activity to enable patient to perform ADL's. OT Education/Plan Problem List/Assessment Assessment: Decreased Activ Tolerance Discharge Recommendations Plan/Recommendations: Continue POC Treatment Plan/Plan of Care Patient would benefit from OT for education, treatment and training to promote independence in ADL's, mobility, safety and/or upper extremity function for ADL's. Plan of Care: ADL Retraining, Functional Mobility, Group Exercise/Act as Ind, UE Funct Exercise/Act Treatment Duration: Aug 03, 2018 Frequency: At least 5 of 7 days/Wk (IRF) Estimated Hrs Per Day: 1.5 hours per day Agreement: Yes Rehab Potential: Fair Time/GCodes Start Time: 13:15 Stop Time: 13:45 Total Time Billed (hr/min): 30 Billed Treatment Time 1 visit-ADL 2 (30 min) MARICEL HERBERT Jul 24, 2018 13:45
--- NOTE | 2018-07-24 13:56 | NUR ---
Call to Dr. Hancock's office. Ok to remove francisco and steri strip. F/U with Dr. Hancock on 08/01/18 at 10:45 AM ([place]).
--- NOTE | 2018-07-24 14:49 | NUR ---
50 francisco removed from back incision and steri strips applied. Patient tolerated well.
--- NOTE | 2018-07-24 15:34 | NUR ---
Dulcolax suppository given D/T constipation.
[2018-07-24 15:42] VITALS: BP 108/61
--- NOTE | 2018-07-24 15:52 | NUR ---
Up to the BSC. Moderate amount of soft, brown stool noted.
[2018-07-24] MEDS: TAMSULOSIN 0.4 MG (FLOMAX) CAP PO SCH (17:16)
--- NOTE | 2018-07-24 18:02 | NUR ---
Up to the BR. Again, moderate amount of soft, brown stool noted.
[2018-07-24] MEDS: POLYETHYLENE GLYCOL 17 GM (MIRALAX) PACK PO SCH (21:38)
[2018-07-25 05:41] VITALS: BP 142/63
[2018-07-25] MEDS: MULTIVIT W/MINERALS TAB (THERAGRAN M) PO SCH (06:10)
[2018-07-25] MEDS: CATHETER FLUSH 10 ML SYR IV SCH ×3 (06:10→20:13)
[2018-07-25 07:04] LABS: BASOPHILS % (AUTO) 0 % (0-10); EOSINOPHILS % (AUTO) 0 % (0-10); HEMATOCRIT 33 % (35-52); HEMOGLOBIN 10.3 G/DL (11.5-16.0); LYMPHOCYTES # (AUTO) 2.9 X 10^3 (1.0-4.0); LYMPHOCYTES % (AUTO) 31 % (12-44); MEAN CORPUSCULAR HEMOGLOBIN 31 PG (25-34); MEAN CORPUSCULAR HGB CONC 32 G/DL (32-36); MEAN CORPUSCULAR VOLUME 98 FL (80-99); MEAN PLATELET VOLUME 8.4 FL (7.4-10.4); MONOCYTES # (AUTO) 1.3 X 10^3 (0.0-1.0); MONOCYTES % (AUTO) 14 % (0-12); NEUTROPHILS # (AUTO) 5.1 X 10^3 (1.8-7.8); NEUTROPHILS % (AUTO) 55 % (42-75); PLATELET COUNT 349 10^3/uL (130-400); WHITE BLOOD COUNT 9.3 10^3/uL (4.3-11.0)
[2018-07-25 07:25] LABS: ALANINE AMINOTRANSFERASE 21 U/L (0-55); ALBUMIN 3.2 GM/DL (3.2-4.5); ALKALINE PHOSPHATASE 70 U/L (40-136); BILIRUBIN,TOTAL 0.3 MG/DL (0.1-1.0); BUN/CREATININE RATIO 19; CALCIUM 8.3 MG/DL (8.5-10.1); CARBON DIOXIDE 23 MMOL/L (21-32); CHLORIDE 109 MMOL/L (98-107); CREATININE SERUM 0.57 MG/DL (0.60-1.30); GFR ESTIMATED > 60; GLUCOSE 86 MG/DL (70-105); MAGNESIUM 1.7 MG/DL (1.8-2.4); PHOSPHORUS 1.9 MG/DL (2.3-4.7); POTASSIUM 3.7 MMOL/L (3.6-5.0); SODIUM 140 MMOL/L (135-145); TOTAL PROTEIN 5.1 GM/DL (6.4-8.2)
[2018-07-25 08:10] VITALS: BP 142/63
[2018-07-25] MEDS: RT-ADVAIR HFA 115/21 MCG PER PUFF IH SCH ×2 (08:10→19:40)
[2018-07-25] MEDS: RT-ALBUTEROL/IPRATROPIUM 3 ML (DUONEB) VIAL INH SCH ×3 (08:10→19:40)
--- NOTE | 2018-07-25 08:13 | Cardiology Progress Note ---
Subjective Date Seen by Provider: Jul 25, 2018 Time Seen by Provider: 08:05 Subjective/Events-last exam Patient is in bed, no new complaint. States dyspnea continue to improve. Con itnues to complain of back pain. Objective-Cardiology Exam Last Set of Vital Signs Vital Signs 07/25/18 07/26/18 07/26/18 07/26/18 08:10 06:00 07:56 08:07 Temp 98.5 Pulse 62 Resp 16 B/P (MAP) 149/71 (97) Pulse Ox 94 O2 Delivery Nasal Cannula O2 Flow Rate 3.00 FiO2 28 Capillary Refill : I&O Intake and Output 07/26/18 00:00 Intake Total 750 ml Balance 750 ml Intake Oral 750 ml Bladder Scan Volume Amount 65 ml # Voids 5 # Bowel Movements 1 General: Alert, Oriented X3, Cooperative HEENT: Atraumatic, PERRLA Neck: Supple, No JVD, No Thyromegaly Lungs: Normal Air Movement, Other (bilateral rhonchi) Heart: Regular Rate, Normal S1, Normal S2, No Murmurs Abdomen: Normal Bowel Sounds, Soft, No Tenderness, No Hepatosplenomegaly, No Masses Extremities: No Clubbing, No Cyanosis, No Edema, Normal Pulses, No Tender ness/Swelling Skin: No Rashes, No Breakdown, No Significant Lesion Neuro: Normal Speech, Strength at 5/5 X4 Ext, Sensation Intact Psych/Mental Status: Mental Status NL, Mood NL Results Lab A/P-Cardiology Admission Diagnosis Shortness of breath COPD Coronary artery disease Hypertension Assessment/Plan Shortness of breath, acute exacerbation of COPD. Mild elevation in BNP, echocardiogram is normal, reporting improvement, continue to monitor 2-D echo done on July 21, 2018 showing normal LV size and systolic function, estimated ejection fraction 60 percent, severe pulmonary hypertension with PA pressure of 50 mmHg. Coronary artery disease, reporting cardiac catheterization done about 15 years ago, had a stress test done in September 2016 showing no ischemia or infarction with normal LV size and function. continue to monitor Hypertension, good control, monitor blood pressure Hyperlipidemia, monitor lipids Tobaccoism, has stopped smoking on admission to the hospital, educated on the importance of smoking cessation Strong family history of heart disease. Status post multiple back surgeries, receiving physical therapy. Clinical Quality Measures DVT/VTE Risk/Contraindication: Risk Factor Score Per Nursin RFS Level Per Nursing on Admit: 4+=Very High LEES-LARRY,THOMAS K PA Jul 25, 2018 08:13
--- NOTE | 2018-07-25 08:37 | PM&R Progress Note ---
Subjective HPI/CC On Admission Date Seen by Provider: Jul 25, 2018 Time Seen by Provider: 08:45 CC: Thoracic lumbar spine surgery HPI: This is a 72yoWF clinic patient of Dr Cancino in [place], [place] know to me from prior spine surgery admits w/h/o severe O2 dependent COPD who continues to smoke who presents to the IRF unit in need of intensive rehab in order to return home with her . Patient is doing ok today just having back pain and a cough. Patient was recently dx with pneumonia and placed on aggressive treatment by Dr Lubin whom his expertise is much appreciated and the patient appreciates his help. No BM for now 4 days post op and that is being addressed more aggressively today. PLOF was independent with ambulation and ADL's. I have reviewed her labs and we are in the midst of correction of her abnormal electro lytes with supplements. Nebs are ordered along with IV antibiotics and IV steroids. Iron with very low along with hemoglobin so will start Venofer. Potassium will be supplemented 20meq PO TID for 3 days Drain is now out. Urinary retention this morning so have consulted Dr Lane for retention. Subjective/Events-last exam Potassium 3.5 Replaced IV Oxygen is titrated down but she uses 3 liters at home so we will maintain 3 liters at home oxygen level Overall much improved since pneumonia has completely resolved along with exacerbation of COPD Reviewed therapy notes Conferred with ladle repairer of Systems General: Fatigue Pulmonary: Dyspnea Musculoskeletal: back pain Objective Exam Vital Signs Vital Signs Date Time Temp Pulse Resp B/P (MAP) Pulse Ox O2 Delivery O2 Flow Rate FiO2 07/25/18 19:40 97 Nasal Cannula 3.50 07/25/18 15:47 98.1 63 18 147/68 (94) 07/25/18 08:10 28 Capillary Refill : General Appearance: No Apparent Distress, WD/WN, Chronically ill, Thin, Other (improved) HEENT: PERRL/EOMI, TMs Normal, Normal ENT Inspection, Pharynx Normal, Moist Mucous Membranes Neck: Full Range of Motion, Normal Inspection, Non Tender, Supple Respiratory: Chest Non Tender, Lungs Clear, Normal Breath Sounds, No Accessory Muscle Use, No Respiratory Distress Cardiovascular: Regular Rate, Rhythm, No Edema, No Gallop, No JVD, No Murmur Gastrointestinal: Normal Bowel Sounds, No Organomegaly, No Pulsatile Mass, Non Tender, Soft Back: Decreased Range of Motion Extremity: Normal Capillary Refill, Normal Inspection, Other (5/5 motor crow LE, NVSI, wound CDI, drain in place) Neurologic/Psychiatric: Alert, Oriented x3, No Motor/Sensory Deficits, Normal Mood/Affect Skin: Normal Color, Warm/Dry Lymphatic: No Adenopathy Results/Procedures Lab Laboratory Tests 07/25/18 06:54 Patient resulted labs reviewed. FIM Transfers Therapy Code Descriptions/Definitions Functional [place] Measure: 0=Not Assessed/NA 4=Minimal Assistance 1=Total Assistance 5=Supervision or Setup 2=Maximal Assistance 6=Modified [place] 3=Moderate Assistance 7=Complete [place] Therapy Quality Codes: 6 Independent with activity with or without an assistive device 5 Patient requires set up or clean up by helper. Patient completes activity by themselves 4 Supervision or touching assist (CGA). [place] provide cues , steadying assist 3 The helper provides less than half the effort to complete the activity 2 The helper provides more than half the effort to complete the activity 1 Dependent. The helper does all the effort to complete an activity 7 Patient refused to complete or attempt activity 9 The patient did not perform the activity before the current illness or injury 88 Not attempted due to Medical conditions or safety concerns Transfers (B, C, W/C) (FIM): 5 Scootin Rollin Roll Left to Right (QC): 3 Supine to/from Sit: 5 Sit to/from Stand: 5 Sit to Lying (QC): 2 Sit to Stand (QC): 3 Chair/Hcx-gk-Fbcgi Xfer(QC): 5 Bed to/from Chair: 5 Car Transfer (QC): 3 Gait Training Does the Patient Walk?: Yes Gait (FIM): 5 Distance (FIM): 3=150 ft Distance: 300 Walk 10 feet (QC): 4 Walk 50 ft with 2 Turns(QC): 4 Walking 10ft/uneven surface-QC: 3 Gait Level of Assist: 5 (SBA, assist with O2 tank) Gait Persons Needed: 1 Gait Assistive Device: FWW Wheelchair Training Does the Pt Use a Wheelchair?: No Stair Training Stair Training: Handrails/: 2 handrails Stairs (FIM): 1 #of Steps: 4 1 Step (curb) (QC): 3 Stairs: Pattern: Step to (asending leading with RLE, descending leading with LLE) Level of Assist: 4 (CGA provided with gait belt, pt stating not feeling very strong) Mental Status/Objective Comprehension: 7 Expression: 7 Social Interaction: 7 Problem Solvin Memory: 7 ADL-Treatment Groomin Oral Hygiene (QC): 6 Bathin Bathing Location: L Arm, R Arm, L Upper Leg, R Upper Leg, L Lower Leg (including foot), R Lower Leg (including foot), Chest, Abdomen, Buttocks, Perineal Area Shower/Bathe Self (QC): 4 Lower Extremity Dressin Lower Body Dressing (QC): 5 On/Off Footwear (QC): 6 Toiletin Toileting Hygiene (QC): 4 Toilet/Commode Transfer: 5 Toilet Transfer (QC): 4 Shower: 5 (SBA) Assessment/Plan Assessment and Plan Assess & Plan/Chief Complaint Assessment: Extensive spinal surgery POD # 15 uncomplicated AECOPD Pneumonia Anemia-transfusion required Hyponatremia Hypokalemia Smoker Frail status Constipation-resolved Back pain Elevated BNP PHTN Plan: Pain control BM regime successful Potassium with Lasix Abx completd Steroids completed Venofer Transfusion of 1 unit of blood 8 days ago Very guarded prognosis long-term Consultation by Dr Cadena is appreciated (1) JUNCTIONAL KYPHOSIS (2) COPD (chronic obstructive pulmonary disease) (3) Hypokalemia (4) Urinary retention (5) Anemia (6) Atelectasis (7) Hyperlipidemia (8) Hyponatremia (9) Leukocytosis (10) GERD (gastroesophageal reflux disease) (11) Hypertension (12) Pneumonia (13) Lumbar spinal stenosis (14) Oxygen dependent (15) Frailty (16) RESPIRATORY FAILURE, UNSP, UNSP W HYPOXIA OR HYPERCAPNIA (17) Smoker (18) Transfusion of blood during current hospitalization (19) Dyspnea (20) Pulmonary hypertension MAGDALENE ANDRES DO Jul 25, 2018 08:37
[2018-07-25 09:08] VITALS: BP 150/72
[2018-07-25] MEDS: FAMOTIDINE 20 MG (PEPCID) TABLET PO SCH (09:10)
[2018-07-25] MEDS: meTOprolol SUCCINATE 100 MG (TOPROL XL) TAB PO SCH (09:10)
[2018-07-25] MEDS: PANTOPRAZOLE 40 MG (PROTONIX) TAB PO SCH (09:10)
[2018-07-25] MEDS: lisINopril 20 MG (PRINIVIL) TABLET PO SCH (09:10)
[2018-07-25] MEDS: predniSONE 10 MG TAB PO SCH (09:10)
[2018-07-25] MEDS: oxyCODONE/APAP 5/325MG (PERCOCET 5) TABLET PO PRN (09:10)
[2018-07-25] MEDS: BETHANECHOL 10 MG (URECHOLINE) TAB PO SCH (09:11)
[2018-07-25] MEDS: SENNA W/DOCUSATE (SENOKOT S) TABLET PO SCH ×2 (09:27→19:19)
--- NOTE | 2018-07-25 09:49 | Physical Therapy Daily Note ---
PT Daily Note-Current Subjective Agrees to PT. Unsure if she has taken pain meds this morning. Pain Numeric Pain Scale: 4 Location: Posterior Location Body Site: Back Pain Description: Ache (/sore; took pain meds during treatment) Mental Status Patient Orientation: Person, Place, Time, Situation Attachments: Oxygen (3.5l/min per Dr Galvan ) Transfers Therapy Code Descriptions/Definitions Functional [place] Measure: 0=Not Assessed/NA 4=Minimal Assistance 1=Total Assistance 5=Supervision or Setup 2=Maximal Assistance 6=Modified [place] 3=Moderate Assistance 7=Complete [place] Therapy Quality Codes: 6 Independent with activity with or without an assistive device 5 Patient requires set up or clean up by helper. Patient completes activity by themselves 4 Supervision or touching assist (CGA). [place] provide cues , steadying assist 3 The helper provides less than half the effort to complete the activity 2 The helper provides more than half the effort to complete the activity 1 Dependent. The helper does all the effort to complete an activity 7 Patient refused to complete or attempt activity 9 The patient did not perform the activity before the current illness or injury 88 Not attempted due to Medical conditions or safety concerns Transfers (B, C, W/C) (FIM): 5 Roll Left to Right (QC): 5 Supine to/from Sit: 5 Sit to/from Stand: 5 Sit to Lying (QC): 5 Sit to Stand (QC): 5 Chair/Zni-ti-Fpgex Xfer(QC): 5 SBA with all functional transfers; no verbal or tactile cues required. Safe with transfers. SBA with toileting and toilet transfer as well. Weight Bearing Right Lower Extremity: Right Full Weight Bearing Left Lower Extremity: Left Full Weight Bearing Gait Training Does the Patient Walk?: Yes Gait (FIM): 5 Distance (FIM): 3=150 ft Distance: 150 ft x 6 reps with rest breaks in between Gait Assistive Device: FWW Safe steady gait without LoB noted. Wheelchair Training Does the Pt Use a Wheelchair?: No Stair Training Stair Training: Handrails/: 2 handrails Stairs (FIM): 2 #of Steps: 4 Stairs: Pattern: Step to Level of Assist: 5 (SBA for safety) Exercises Seated Therapy Exercises: Sit to stand (x 5) NuStep Minutes: 12 (LE strength and functional activity tolerance) Treatments Pt transferred in/out of bed x 2 today with SBA; toileted x 2 today with SBA. Stood at sink to wash her hands with sBA. Assessment Current Status: Good Progress Pt making functional gains and progressing towards established goals. PT Short Term Goals Short Term Goals Time Frame: July 20, 2018 Transfers (B,C,W/C) (FIM): 4 (met) Gait (FIM): 4 (met) Gait Distance Comment: 150' Gait Level of Assist: 4 Gait Assistive Device: FWW PT Supply Aide Goals Nursing Home Goals PT Supply Aide Goals Time Frame: Aug 03, 2018 Transfers (B,C,W/C) (FIM): 5 Sit to Lying (QC): 4 Lying-Sitting on Side/Bed(QC): 4 Sit to Stand (QC): 4 Rollin Roll Left to Right (QC): 4 Chair/Wbe-vv-Uforx Xfer(QC): 4 Car Transfer (QC): 4 Gait (FIM): 5 Distance: 200' Walk 10 feet (QC): 4 Walk 10ft-Uneven Surface(QC): 4 Walk 50ft with 2 Turns (QC): 4 Walk 150 ft (QC): 4 Gait Level of Assist: 5 Gait Assistive Device: FWW Stairs (FIM): 2 # of Steps: 4 1 Step (curb) (QC): 4 4 Steps (QC): 4 Stairs Level Of Assist: 4 PT Plan Problem List Problem List: Activity Tolerance, Functional Strength, Safety, Balance, Gait, Transfer Treatment/Plan Treatment Plan: Continue Plan of Care Treatment Plan: Bed Mobility, Education, Functional Activity French, Functional Strength, Group Therapy, Gait, Safety, Therapeutic Exercise, Transfers Treatment Duration: Aug 03, 2018 Frequency: At least 5 of 7 days/Wk (IRF) Estimated Hrs Per Day: 1.5 hours per day Patient and/or Family Agrees t: Yes Safety Risks/Education Patient Education: Safety Issues Teaching Recipient: Patient Teaching Methods: Discussion Response to Teaching: Verbalize Understanding Discharge Recommendations Therapy D/C Recommendations: Physical Therapy Home Care Time/GCodes Time In: 815 Time Out: 945 Total Billed Treatment Time: 90 Total Billed Treatment visit EX 30 FA 60 MARICEL FERRIS PT Jul 25, 2018 09:49
--- NOTE | 2018-07-25 11:09 | Occupational Ther Daily Note ---
OT Current Status-Daily Note Subjective Pt alert, lying in bed. Pt agrees to therapy. C/o back pain, did not rate. Mental Status/Objective Patient Orientation: Person, Place, Time, Situation Therapy Code Descriptions/Definitions Functional [place] Measure: 0=Not Assessed/NA 4=Minimal Assistance 1=Total Assistance 5=Supervision or Setup 2=Maximal Assistance 6=Modified [place] 3=Moderate Assistance 7=Complete [place] Attachments: IV, Oxygen (3.5L) ADL-Treatment Declined shower. Mod I for bed mobility. Supervision for functional transfers using FWW. Completes toileting, mod I using FWW for stability. Therapy Code Descriptions/Definitions Functional [place] Measure: 0=Not Assessed/NA 4=Minimal Assistance 1=Total Assistance 5=Supervision or Setup 2=Maximal Assistance 6=Modified [place] 3=Moderate Assistance 7=Complete [place] Therapy Quality Codes: 6 Independent with activity with or without an assistive device 5 Patient requires set up or clean up by helper. Patient completes activity by themselves 4 Supervision or touching assist (CGA). [place] provide cues , steadying assist 3 The helper provides less than half the effort to complete the activity 2 The helper provides more than half the effort to complete the activity 1 Dependent. The helper does all the effort to complete an activity 7 Patient refused to complete or attempt activity 9 The patient did not perform the activity before the current illness or injury 88 Not attempted due to Medical conditions or safety concerns Toileting (FIM): 6 Toileting Hygiene (QC): 6 Transfers (B, C, W/C) (FIM): 5 Toilet/Commode Transfer (FIM): 5 Toilet Transfer (QC): 4 Other Treatment Pt demonstrates understanding of how to don/doff back brace. Assist needed to adjust after donning brace, doffs by self. Pt ambulates to therapy gym with 2 recovery breaks. Completes arm bike 15 min with minimal resistance to increase strength and activity tolerance for daily functional tasks. Resistive pegs, 50 each hand, to increase strength of pinch/coal cager for fine motor tasks. Pt takes increased time to completed tasks. Discussed home environment and safety at home. Pt able to verbalize safe techniques at home and good energy conservation techniques. After therapy, pt lying in bed with call light/phone in reach. All needs met in room. Education OT Patient Education: Energy conservation Teaching Recipient: Patient Teaching Methods: Discussion Response to Teaching: Verbalize Understanding OT Short Term Goals Short Term Goals Time Frame: July 20, 2018 Eating(FIM): 5 Grooming(FIM): 5 Bathing(FIM): 4 Upper Body Dressing(FIM): 4 Lower Body Dressing(FIM): 4 Toileting(FIM): 4 Transfers (B,C,W/C) (FIM): 4 (met) Toilet/Commode Transfer(FIM): 4 Shower Transfer(FIM): 3 Additional Short Term Goals: 1-Demonstrate ADL Tasks, 2-Verbalize Understanding, 3-ImproveStrength/French 1=Demonstrate adherence to instructed precautions during ADL tasks. 2=Patient will verbalize/demonstrate understanding of assistive d evices/modifications for ADL. 3=Patient will improve strength/tolerance for activity to enable patient to perform ADL's. OT Washing Machine Operator Goals [facility] Goals Time Frame: Aug 03, 2018 Eating (FIM): 6 Eating (QC): 6 Groomin Oral Hygiene (QC): 4 Bathing(FIM): 5 Shower/Bathe Self (QC): 4 Upper Body Dressing(FIM): 5 Upper Body Dressing (QC): 4 Lower Body Dressing(FIM): 5 Lower Body Dressing (QC): 4 On/Off Footwear (QC): 4 Toileting(FIM): 6 Toileting Hygiene (QC): 5 Transfers (B,C,W/C) (FIM): 6 Toilet/Commode Transfer(FIM): 6 Toilet/Commode Transfer (QC): 5 Shower Transfer(FIM): 5 Comprehension(FIM): 6 Expression (FIM): 6 Social Interaction(FIM): 6 Problem Solving(FIM): 6 Memory(FIM): 6 Additional Goals: 1-Demonstrate ADL Tasks, 2-Verbalize Understanding, 3- ImproveStrength/French 1=Demonstrate adherence to instructed precautions during ADL tasks. 2=Patient will verbalize/demonstrate understanding of assistive devices/modifications for ADL. 3=Patient will improve strength/tolerance for activity to enable patient to perform ADL's. OT Education/Plan Problem List/Assessment Assessment: Decreased Activ Tolerance, Decreased UE Strength Discharge Recommendations Plan/Recommendations: Continue POC Treatment Plan/Plan of Care Patient would benefit from OT for education, treatment and training to promote independence in ADL's, mobility, safety and/or upper extremity function for ADL's. Plan of Care: ADL Retraining, Functional Mobility, Group Exercise/Act as Ind, UE Funct Exercise/Act Treatment Duration: Aug 03, 2018 Frequency: At least 5 of 7 days/Wk (IRF) Estimated Hrs Per Day: 1.5 hours per day Agreement: Yes Rehab Potential: Fair Time/GCodes Start Time: 10:00 Stop Time: 11:30 Total Time Billed (hr/min): 90 Billed Treatment Time 1 visit-FA 3 (50 min) EX 3 (40 min) MARICEL HERBERT Jul 25, 2018 11:09
--- NOTE | 2018-07-25 11:20 | Progress Note-Urology ---
Progress Note-Urology Progress Notes/Assess & Plan Progress/Assessment & Plan CONTINUES VOIDING WELL. WE WILL CONTINUE WEANING OFF URECHOLINE Final Diagnosis URINE RETENTION AJAY MACHUCA MD Jul 25, 2018 11:20
--- NOTE | 2018-07-25 15:15 | Pulmonary Progress Note ---
Sepsis Event Evaluation Height, Weight, BMI Height: 5'2.00" Weight: 129lbs. 0.8oz. 58.257281zd; 24.1 BMI Method: Exam Exam Vital Signs Date Time Temp Pulse Resp B/P (MAP) Pulse Ox O2 Delivery O2 Flow Rate FiO2 07/25/18 09:08 83 150/72 (98) 07/25/18 09:00 Nasal Cannula 3.50 07/25/18 08:10 95 Nasal Cannula 2.00 07/25/18 05:41 97.6 61 20 142/63 (89) 94 Nasal Cannula 3.00 07/24/18 20:00 Nasal Cannula 2.00 07/24/18 19:53 96 Nasal Cannula 2.00 07/24/18 15:42 98.2 61 18 108/61 (77) 96 Nasal Cannula 3.00 I & O 07/25/18 07:00 Intake Total 1290 ml Output Total 150 ml Balance 1140 ml Height & Weight Height: 5'2.00" Weight: 129lbs. 0.8oz. [id number]; 24.1 BMI Method: General Appearance: No Apparent Distress, WD/WN, Chronically ill, Thin, Other (improved) HEENT: PERRL/EOMI, TMs Normal, Normal ENT Inspection, Pharynx Normal, Moist Mucous Membranes Neck: Full Range of Motion, Normal Inspection, Non Tender, Supple Respiratory: Chest Non Tender, Lungs Clear, Normal Breath Sounds, No Accessory Muscle Use, No Respiratory Distress Cardiovascular: Regular Rate, Rhythm, No Edema, No Gallop, No JVD, No Murmur Gastrointestinal: normal bowel sounds, non tender, soft Extremity: Normal Capillary Refill, Normal Inspection, Other (5/5 motor crow LE, NVSI, wound CDI, drain in place) Neurologic/Psychiatric: Alert, Oriented x3, No Motor/Sensory Deficits, Normal Mood/Affect Skin: Normal Color, Warm/Dry Lymphatic: No Adenopathy Results Lab Laboratory Tests 07/24/18 05:43 07/25/18 06:54 Assessment/Plan Assessment/Plan s/p thoracolumbar fusion Chronic COPD - Pt is on 3 liters of oxygen at home -SVNS -Monitor -Advair PNA - resolving -Leukocytosis - improving and no fever -S/p Zosyn Hypokalemia, hypophos -replace -Monitor Anemia - post op -Monitor FELICIA LOPEZ DO Jul 25, 2018 15:15
[2018-07-25 15:47] VITALS: BP 147/68
[2018-07-25] MEDS: TAMSULOSIN 0.4 MG (FLOMAX) CAP PO SCH (17:31)
--- NOTE | 2018-07-25 19:16 | Cardiology Progress Note ---
Subjective Date Seen by Provider: Jul 25, 2018 Time Seen by Provider: 19:15 Subjective/Events-last exam Patient is in bed, no new complaint Review of Systems General: No Chills, No Night Sweats; Fatigue, Malaise; No Appetite, No Other HEENT: No Head Aches, No Visual Changes, No Eye Pain, No Ear Pain, No Dysphasia, No Sinus Congestion, No Post Nasal Drip, No Sore Throat, No Other Pulmonary: No Dyspnea, No Cough, No Pleuritic Chest Pain, No Other Cardiovascular: No: Chest Pain, Palpitations, Orthopnea, Paroxysmal Noc. Dys pnea, Edema, Lt Headedness, Other Objective-Cardiology Exam Last Set of Vital Signs Vital Signs 07/25/18 07/25/18 08:10 15:47 Temp 98.1 Pulse 63 Resp 18 B/P (MAP) 147/68 (94) Pulse Ox 98 O2 Delivery Nasal Cannula O2 Flow Rate 3.00 FiO2 28 Capillary Refill : I&O Intake and Output 07/25/18 00:00 Intake Total 1290 ml Output Total 600 ml Balance 690 ml Intake Oral 1030 ml IV Total 260 ml Output Urine Total 600 ml Bladder Scan Volume Amount 75 ml 75 ml # Voids 5 # Bowel Movements 2 General: Alert, Oriented X3, Cooperative HEENT: Atraumatic, PERRLA Neck: Supple, No JVD, No Thyromegaly Lungs: Normal Air Movement, Other (bilateral rhonchi) Heart: Regular Rate, Normal S1, Normal S2, No Murmurs Abdomen: Normal Bowel Sounds, Soft, No Tenderness, No Hepatosplenomegaly, No Masses Extremities: No Clubbing, No Cyanosis, No Edema, Normal Pulses, No Tenderness/Swelling Skin: No Rashes, No Breakdown, No Significant Lesion Neuro: Normal Speech, Strength at 5/5 X4 Ext, Sensation Intact Psych/Mental Status: Mental Status NL, Mood NL Results Lab Laboratory Tests 07/25/18 06:54 A/P-Cardiology Admission Diagnosis Shortness of breath COPD Coronary artery disease Hypertension Assessment/Plan Shortness of breath, acute exacerbation of COPD. Mild elevation in BNP, echocardiogram is normal, reporting improvement, continue to monitor 2-D echo done on July 21, 2018 showing normal LV size and systolic function, es timated ejection fraction 60 percent, severe pulmonary hypertension with PA pressure of 50 mmHg. Coronary artery disease, reporting cardiac catheterization done about 15 years ago, had a stress test done in September 2016 showing no ischemia or infarction with normal LV size and function. continue to monitor Hypertension, good control, monitor blood pressure Hyperlipidemia, monitor lipids Tobaccoism, has stopped smoking on admission to the hospital, educated on the importance of smoking cessation Strong family history of heart disease. Status post multiple back surgeries, receiving physical therapy. Clinical Quality Measures DVT/VTE Risk/Contraindication: Risk Factor Score Per Nursin RFS Level Per Nursing on Admit: 4+=Very High ORTEGA SCHAEFFER MD Jul 25, 2018 19:16
[2018-07-25] MEDS: POLYETHYLENE GLYCOL 17 GM (MIRALAX) PACK PO SCH (19:19)
[2018-07-26 06:00] VITALS: BP 137/72
[2018-07-26] MEDS: MULTIVIT W/MINERALS TAB (THERAGRAN M) PO SCH (06:23)
[2018-07-26] MEDS: CATHETER FLUSH 10 ML SYR IV SCH ×3 (06:23→20:41)
[2018-07-26] MEDS: lisINopril 20 MG (PRINIVIL) TABLET PO SCH (07:52)
[2018-07-26] MEDS: SENNA W/DOCUSATE (SENOKOT S) TABLET PO SCH ×2 (07:52→20:42)
[2018-07-26] MEDS: FAMOTIDINE 20 MG (PEPCID) TABLET PO SCH (07:52)
[2018-07-26] MEDS: oxyCODONE/APAP 5/325MG (PERCOCET 5) TABLET PO PRN (07:52)
[2018-07-26] MEDS: PANTOPRAZOLE 40 MG (PROTONIX) TAB PO SCH (07:52)
[2018-07-26] MEDS: meTOprolol SUCCINATE 100 MG (TOPROL XL) TAB PO SCH (07:52)
[2018-07-26] MEDS: BETHANECHOL 10 MG (URECHOLINE) TAB PO SCH (07:53)
[2018-07-26 07:56] VITALS: BP 149/71
[2018-07-26] MEDS: RT-ADVAIR HFA 115/21 MCG PER PUFF IH SCH ×2 (08:06→19:25)
[2018-07-26] MEDS: RT-ALBUTEROL/IPRATROPIUM 3 ML (DUONEB) VIAL INH SCH ×4 (08:06→19:25)
--- NOTE | 2018-07-26 08:21 | PM&R Progress Note ---
Subjective HPI/CC On Admission Date Seen by Provider: Jul 26, 2018 Time Seen by Provider: 08:30 CC: Thoracic lumbar spine surgery HPI: This is a 72yoWF clinic patient of Dr Cancino in [place], [place] know to me from prior spine surgery admits w/h/o severe O2 dependent COPD who continues to smoke who presents to the IR[facility] unit in need of intensive rehab in order to return home with her . Patient is doing ok today just having back pain and a cough. Patient was recently dx with pneumonia and placed on aggressive treatment by Dr Lubin whom his expertise is much appreciated and the patient appreciates his help. No BM for now 4 days post op and that is being addressed more aggressively today. PLOF was independent with ambulation and ADL's. I have reviewed her labs and we are in the midst of correction of her abnormal pearl ctrolytes with supplements. Nebs are ordered along with IV antibiotics and IV steroids. Iron with very low along with hemoglobin so will start Venofer. Potassium will be supplemented 20meq PO TID for 3 days Drain is now out. Urinary retention this morning so have consulted Dr Lane for retention. Subjective/Events-last exam Pt is doing very well Bladder scan is only 60cc post void residual Urecholine is down to once a day Motivation is not the best but that is chronic Likely will discharge tomorrow Reviewed therapy notes Conferred with maple sugar maker of Systems General: Fatigue Musculoskeletal: back pain Objective Exam Vital Signs Vital Signs Date Time Temp Pulse Resp B/P (MAP) Pulse Ox O2 Delivery O2 Flow Rate FiO2 07/26/18 19:25 94 Room Air 07/26/18 17:42 99.4 69 20 146/68 (94) 3.00 07/25/18 08:10 28 Capillary Refill : General Appearance: No Apparent Distress, WD/WN, Chronically ill, Thin, Other (improved) HEENT: PERRL/EOMI, TMs Normal, Normal ENT Inspection, Pharynx Normal, Moist Mucous Membranes Neck: Full Range of Motion, Normal Inspection, Non Tender, Supple Respiratory: Chest Non Tender, Lungs Clear, Normal Breath Sounds, No Accessory Muscle Use, No Respiratory Distress Cardiovascular: Regular Rate, Rhythm, No Edema, No Gallop, No JVD, No Murmur Gastrointestinal: Normal Bowel Sounds, No Organomegaly, No Pulsatile Mass, Non Tender, Soft Back: Decreased Range of Motion Extremity: Normal Capillary Refill, Normal Inspection, Other (5/5 motor crow LE, NVSI, wound CDI, drain in place) Neurologic/Psychiatric: Alert, Oriented x3, No Motor/Sensory Deficits, Normal Mood/Affect Skin: Normal Color, Warm/Dry Lymphatic: No Adenopathy Results/Procedures Lab Patient resulted labs reviewed. FIM Transfers Therapy Code Descriptions/Definitions Functional [place] Measure: 0=Not Assessed/NA 4=Minimal Assistance 1=Total Assistance 5=Supervision or Setup 2=Maximal Assistance 6=Modified [place] 3=Moderate Assistance 7=Complete [place] Therapy Quality Codes: 6 Independent with activity with or without an assistive device 5 Patient requires set up or clean up by helper. Patient completes activity by themselves 4 Supervision or touching assist (CGA). [place] provide cues , steadying assist 3 The helper provides less than half the effort to complete the activity 2 The helper provides more than half the effort to complete the activity 1 Dependent. The helper does all the effort to complete an activity 7 Patient refused to complete or attempt activity 9 The patient did not perform the activity before the current illness or injury 88 Not attempted due to Medical conditions or safety concerns Transfers (B, C, W/C) (FIM): 5 Scootin Rollin Roll Left to Right (QC): 5 Supine to/from Sit: 5 Sit to/from Stand: 5 Sit to Lying (QC): 5 Sit to Stand (QC): 5 Chair/Bne-yr-Ckruf Xfer(QC): 5 Bed to/from Chair: 5 Car Transfer (QC): 3 Gait Training Does the Patient Walk?: Yes Gait (FIM): 5 Distance (FIM): 3=150 ft Distance: 150 ft x 6 reps with rest breaks in between Walk 10 feet (QC): 4 Walk 50 ft with 2 Turns(QC): 4 Walking 10ft/uneven surface-QC: 3 Gait Level of Assist: 5 (SBA, assist with O2 tank) Gait Persons Needed: 1 Gait Assistive Device: FWW Wheelchair Training Does the Pt Use a Wheelchair?: No Stair Training Stair Training: Handrails/: 2 handrails Stairs (FIM): 2 #of Steps: 4 1 Step (curb) (QC): 3 Stairs: Pattern: Step to Level of Assist: 5 (SBA for safety) Mental Status/Objective Comprehension: 7 Expression: 7 Social Interaction: 7 Problem Solvin Memory: 7 ADL-Treatment Groomin Oral Hygiene (QC): 6 Bathin Bathing Location: L Arm, R Arm, L Upper Leg, R Upper Leg, L Lower Leg (including foot), R Lower Leg (including foot), Chest, Abdomen, Buttocks, Perineal Area Shower/Bathe Self (QC): 4 Lower Extremity Dressin Lower Body Dressing (QC): 5 On/Off Footwear (QC): 6 Toiletin Toileting Hygiene (QC): 6 Toilet/Commode Transfer: 5 Toilet Transfer (QC): 4 Shower: 5 (SBA) Assessment/Plan Assessment and Plan Assess & Plan/Chief Complaint Assessment: Extensive spinal surgery POD # 16 uncomplicated AECOPD Pneumonia Anemia-transfusion required Hyponatremia Hypokalemia Smoker Frail status Constipation-resolved Back pain Elevated BNP PHTN Plan: Pain control BM regime successful Potassium with Lasix Abx completd Steroids completed Venofer Transfusion of 1 unit of blood 8 days ago Very guarded prognosis long-term Consultation by Dr Cadena is appreciated DC home tomorrow (1) JUNCTIONAL KYPHOSIS (2) COPD (chronic obstructive pulmonary disease) (3) Hypokalemia (4) Urinary retention (5) Anemia (6) Atelectasis (7) Hyperlipidemia (8) Hyponatremia (9) Leukocytosis (10) GERD (gastroesophageal reflux disease) (11) Hypertension (12) Pneumonia (13) Lumbar spinal stenosis (14) Oxygen dependent (15) Frailty (16) RESPIRATORY FAILURE, UNSP, UNSP W HYPOXIA OR HYPERCAPNIA (17) Smoker (18) Transfusion of blood during current hospitalization (19) Dyspnea (20) Pulmonary hypertension MAGDALENE ANDRES DO Jul 26, 2018 08:21
--- NOTE | 2018-07-26 08:27 | Cardiology Progress Note ---
Subjective Date Seen by Provider: Jul 26, 2018 Time Seen by Provider: 08:25 Subjective/Events-last exam Patient in bed, complaining of back pain. Denies any chest pain or dyspnea. Objective-Cardiology Exam Last Set of Vital Signs Vital Signs 07/25/18 07/26/18 07/26/18 07/26/18 08:10 06:00 07:56 08:07 Temp 98.5 Pulse 62 Resp 16 B/P (MAP) 149/71 (97) Pulse Ox 94 O2 Delivery Nasal Cannula O2 Flow Rate 3.00 FiO2 28 Capillary Refill : I&O Intake and Output 07/26/18 00:00 Intake Total 750 ml Balance 750 ml Intake Oral 750 ml Bladder Scan Volume Amount 65 ml # Voids 5 # Bowel Movements 1 General: Alert, Oriented X3, Cooperative HEENT: Atraumatic, PERRLA Neck: Supple, No JVD, No Thyromegaly Lungs: Normal Air Movement, Other (bilateral rhonchi) Heart: Regular Rate, Normal S1, Normal S2, No Murmurs Abdomen: Normal Bowel Sounds, Soft, No Tenderness, No Hepatosplenomegaly, No Masses Extremities: No Clubbing, No Cyanosis, No Edema, Normal Pulses, No Tenderness/Swelling Skin: No Rashes, No Breakdown, No Significant Lesion Neuro: Normal Speech, Strength at 5/5 X4 Ext, Sensation Intact Psych/Mental Status: Mental Status NL, Mood NL A/P-Cardiology Admission Diagnosis Shortness of breath COPD Coronary artery disease Hypertension Assessment/Plan Shortness of breath, acute exacerbation of COPD. Mild elevation in BNP, echocardiogram is normal, reporting improvement, continue to monitor 2-D echo done on July 21, 2018 showing normal LV size and systolic function, estimated ejection fraction 60 percent, severe pulmonary hypertension with PA pressure of 50 mmHg. Coronary artery disease, reporting cardiac catheterization done about 15 years ago, had a stress test done in September 2016 showing no ischemia or infarction with normal LV size and function. continue to monitor Hypertension, good control, monitor blood pressure Hyperlipidemia, monitor lipids Tobaccoism, has stopped smoking on admission to the hospital, educated on the importance of smoking cessation Strong family history of heart disease. Status post multiple back surgeries, receiving physical therapy. Clinical Quality Measures DVT/VTE Risk/Contraindication: Risk Factor Score Per Nursin RFS Level Per Nursing on Admit: 4+=Very High THOMAS PATE Jul 26, 2018 08:27
--- NOTE | 2018-07-26 09:15 | Physical Therapy Daily Note ---
PT Daily Note-Current Subjective Pt laying Supine in bed upon arrival. Pt agrees to PT but wants to order breakfast at beginning of tx so it will arrive at end of tx. Pain Numeric Pain Scale: 7 Location: Incisional, Dorsal Location Body Site: Back Pain Description: Ache, Throbbing, Tightness Mental Status Patient Orientation: Person, Place, Time, Situation Attachments: Oxygen (3.5 L in room & 4L during tx) Transfers Therapy Code Descriptions/Definitions Functional [place] Measure: 0=Not Assessed/NA 4=Minimal Assistance 1=Total Assistance 5=Supervision or Setup 2=Maximal Assistance 6=Modified [place] 3=Moderate Assistance 7=Complete [place] Therapy Quality Codes: 6 Independent with activity with or without an assistive device 5 Patient requires set up or clean up by helper. Patient completes activity by themselves 4 Supervision or touching assist (CGA). [employer] [place] provide cues , steadying assist 3 The helper provides less than half the effort to complete the activity 2 The helper provides more than half the effort to complete the activity 1 Dependent. The helper does all the effort to complete an activity 7 Patient refused to complete or attempt activity 9 The patient did not perform the activity before the current illness or injury 88 Not attempted due to Medical conditions or safety concerns Transfers (B, C, W/C) (FIM): 6 Scootin Rollin Roll Left to Right (QC): 6 Supine to/from Sit: 6 Sit to/from Stand: 6 Sit to Lying (QC): 6 Sit to Stand (QC): 6 Chair/Kdk-tj-Wkcei Xfer(QC): 6 Bed to/from Chair: 6 Car Transfer (QC): 6 Weight Bearing Right Lower Extremity: Right Full Weight Bearing Left Lower Extremity: Left Full Weight Bearing Gait Training Does the Patient Walk?: Yes Gait (FIM): 5 Distance (FIM): 3=150 ft Distance: 175' Walk 10 feet (QC): 5 Walk 50 ft with 2 Turns(QC): 5 Walk 150 ft (QC): 5 Walking 10ft/uneven surface-QC: 5 Gait Level of Assist: 5 Gait Persons Needed: 1 Gait Assistive Device: FWW Pt still walking with slight antalgic gait pattern. Pt has improved but pain limits activity tolerance. Wheelchair Training Does the Pt Use a Wheelchair?: No Stair Training Stair Training: Handrails/: 2 handrails Stairs (FIM): 2 #of Steps: 4 1 Step (curb) (QC): 5 4 Steps (QC): 5 Stairs: Pattern: Step to Level of Assist: 5 Balance Picking up an Object (QC): 88 Special Test Comments This movement is limited due to back precautions from surgery. Exercises NuStep Minutes: 10 NuStep Workload: 3 Treatments Pt completes FIM scoring items including bed mobility, transfers including car transfers, ambulation including across varying surface and stairs. Pt returns to room at end of tx to rest and eat breakfast ordered at beginning of tx. Pt has all needs met and is resting in recliner with call light. Assessment Pt's pain limits pt's activity tolerance. PT Short Term Goals Short Term Goals Time Frame: July 20, 2018 Transfers (B,C,W/C) (FIM): 4 (met) Gait (FIM): 4 (met) Gait Distance Comment: 150' Gait Level of Assist: 4 Gait Assistive Device: FWW PT Ch[facility] Goals Motorcycle Technician Goals PT [facility] Goals Time Frame: Aug 03, 2018 Transfers (B,C,W/C) (FIM): 5 Sit to Lying (QC): 4 Lying-Sitting on Side/Bed(QC): 4 Sit to Stand (QC): 4 Rollin Roll Left to Right (QC): 4 Chair/Oae-zt-Puogz Xfer(QC): 4 Car Transfer (QC): 4 Gait (FIM): 5 Distance: 200' Walk 10 feet (QC): 4 Walk 10ft-Uneven Surface(QC): 4 Walk 50ft with 2 Turns (QC): 4 Walk 150 ft (QC): 4 Gait Level of Assist: 5 Gait Assistive Device: FWW Stairs (FIM): 2 # of Steps: 4 1 Step (curb) (QC): 4 4 Steps (QC): 4 Stairs Level Of Assist: 4 PT Plan Problem List Problem List: Activity Tolerance, Functional Strength Treatment/Plan Treatment Plan: Continue Plan of Care Treatment Plan: Bed Mobility, Education, Functional Activity French, Functional Strength, Group Therapy, Gait, Safety, Therapeutic Exercise, Transfers Treatment Duration: Aug 03, 2018 Frequency: At least 5 of 7 days/Wk (IRF) Estimated Hrs Per Day: 1.5 hours per day Patient and/or Family Agrees t: Yes Safety Risks/Education Patient Education: Gait Training, Transfer Techniques, Correct Positioning, Safety Issues Teaching Recipient: Patient Teaching Methods: Discussion Response to Teaching: Verbalize Understanding Time/GCodes Time In: 815 Time Out: 915 Total Billed Treatment Time: 60 Total Billed Treatment 1, GT (15m), FA x2 (30m) & EX (15m) G Codes Necessary: LIANNA Merrill INFORMATION TECH Jul 26, 2018 09:15
--- NOTE | 2018-07-26 11:36 | Occupational Ther Daily Note ---
OT Current Status-Daily Note Subjective Pt alert, sitting in recliner. Pt agrees to therapy. No c/o pain at this time. Mental Status/Objective Patient Orientation: Person, Place, Time, Situation Therapy Code Descriptions/Definitions Functional [place] Measure: 0=Not Assessed/NA 4=Minimal Assistance 1=Total Assistance 5=Supervision or Setup 2=Maximal Assistance 6=Modified [place] 3=Moderate Assistance 7=Complete [place] ADL-Treatment Pt agrees to shower. Pt demonstrates awareness of O2 tubing though does not demonstrate good safety when ambulating with tubing. Pt demonstrated understanding of donning/doffing back brace, does need cueing for efficiency. Therapy Code Descriptions/Definitions Functional [place] Measure: 0=Not Assessed/NA 4=Minimal Assistance 1=Total Assistance 5=Supervision or Setup 2=Maximal Assistance 6=Modified [place] 3=Moderate Assistance 7=Complete [place] Therapy Quality Codes: 6 Independent with activity with or without an assistive device 5 Patient requires set up or clean up by helper. Patient completes activity by themselves 4 Supervision or touching assist (CGA). [place] provide cues , steadying assist 3 The helper provides less than half the effort to complete the activity 2 The helper provides more than half the effort to complete the activity 1 Dependent. The helper does all the effort to complete an activity 7 Patient refused to complete or attempt activity 9 The patient did not perform the activity before the current illness or injury 88 Not attempted due to Medical conditions or safety concerns Eating (FIM): 7 (Completes set up and uses regular utensils to eat.) Eating (QC): 6 Grooming (FIM): 6 (Standing at sink with FWW, completes grooming.) Oral Hygiene (QC): 6 Bathing (FIM): 5 (Assist with adjusting water temperature and getting towels. Pt completes bathing by self using grabbar, hand held shower and shower bench.) Bathing Location: L Arm, R Arm, L Upper Leg, R Upper Leg, L Lower Leg (including foot), R Lower Leg (including foot), Chest, Abdomen, Buttocks, Perineal Area Shower/Bathe Self (QC): 5 Upper Body (FIM): 5 (Pt continues to request hospital gown. With neck tied, pt able don/doff over head and thread arms through sleeves by self. Continues to need cues to don back brace.) Upper Body Dressing (QC): 5 Lower Body Dressing (FIM): 6 (Pt retrieves clothing with FWW and dons/doffs by bringing feet up for dressing.) Lower Body Dressing (QC): 6 On/Off Footwear (QC): 6 Toileting (FIM): 6 (Using grabbar and FWW, pt able to complete by self.) Toileting Hygiene (QC): 6 Transfers (B, C, W/C) (FIM): 6 (Using FWW, pt able to complete by self.) Toilet/Commode Transfer (FIM): 6 (Using FWW and grabbar) Toilet Transfer (QC): 6 Shower Transfer(FIM): 6 (Using FWW, grabbar and shower bench.) Other Treatment Pt completed UE tasks to increase gross and fine motor strengthening for daily functional tasks. After therapy, pt lying in bed with call light/phone in reach. All needs met in room. OT Short Term Goals Short Term Goals Time Frame: July 20, 2018 Eating(FIM): 5 Grooming(FIM): 5 Bathing(FIM): 4 Upper Body Dressing(FIM): 4 Lower Body Dressing(FIM): 4 Toileting(FIM): 4 Transfers (B,C,W/C) (FIM): 4 (met) Toilet/Commode Transfer(FIM): 4 Shower Transfer(FIM): 3 Additional Short Term Goals: 1-Demonstrate ADL Tasks, 2-Verbalize Understandin g, 3-ImproveStrength/French 1=Demonstrate adherence to instructed precautions during ADL tasks. 2=Patient will verbalize/demonstrate understanding of assistive devices/modifications for ADL. 3=Patient will improve strength/tolerance for activity to enable patient to perform ADL's. OT Senior Care Goals Senior Care Goals Time Frame: Aug 03, 2018 Eating (FIM): 6 (met-07/26/18) Eating (QC): 6 (met-07/26/18) Groomin (met-07/26/18) Oral Hygiene (QC): 4 (met-07/26/18) Bathing(FIM): 5 (met-07/26/18) Shower/Bathe Self (QC): 4 (met-07/26/18) Upper Body Dressing(FIM): 5 (met-07/26/18) Upper Body Dressing (QC): 4 (met-07/26/18) Lower Body Dressing(FIM): 5 (met-07/26/18) Lower Body Dressing (QC): 4 (met-07/26/18) On/Off Footwear (QC): 4 (met-07/26/18) Toileting(FIM): 6 (met-07/26/18) Toileting Hygiene (QC): 5 (met-07/26/18) Transfers (B,C,W/C) (FIM): 6 (met-07/26/18) Toilet/Commode Transfer(FIM): 6 (met-07/26/18) Toilet/Commode Transfer (QC): 5 (met-07/26/18) Shower Transfer(FIM): 5 Comprehension(FIM): 6 Expression (FIM): 6 Social Interaction(FIM): 6 Problem Solving(FIM): 6 Memory(FIM): 6 Additional Goals: 1-Demonstrate ADL Tasks, 2-Verbalize Understanding, 3- ImproveStrength/French 1=Demonstrate adherence to instructed precautions during ADL tasks. 2=Patient will verbalize/demonstrate understanding of assistive devices/modifications for ADL. 3=Patient will improve strength/tolerance for activity to enable patient to perform ADL's. OT Education/Plan Problem List/Assessment Assessment: Decreased Activ Tolerance, Impaired Self-Care Skills Discharge Recommendations Plan/Recommendations: Continue POC Treatment Plan/Plan of Care Patient would benefit from OT for education, treatment and training to promote independence in ADL's, mobility, safety and/or upper extremity function for ADL's. Plan of Care: ADL Retraining, Functional Mobility, Group Exercise/Act as Ind, UE Funct Exercise/Act Treatment Duration: Aug 03, 2018 Frequency: At least 5 of 7 days/Wk (IRF) Estimated Hrs Per Day: 1.5 hours per day Agreement: Yes Rehab Potential: Fair Time/GCodes Start Time: 10:15 Stop Time: 11:15 Total Time Billed (hr/min): 60 Billed Treatment Time 1 visit-ADL 3 (50 min) EX 1 (10 min) MARICEL HERBERT Jul 26, 2018 11:36
--- NOTE | 2018-07-26 11:53 | Pulmonary Progress Note ---
Sepsis Event Evaluation Height, Weight, BMI Height: 5'2.00" Weight: 139lbs. 8.8oz. 63.420833gk; 24.1 BMI Method: Exam Exam Vital Signs Date Time Temp Pulse Resp B/P (MAP) Pulse Ox O2 Delivery O2 Flow Rate FiO2 07/26/18 10:54 94 Room Air 07/26/18 09:00 Nasal Cannula 3.50 07/26/18 08:07 94 Nasal Cannula 3.00 07/26/18 07:56 62 149/71 (97) 07/26/18 06:00 98.5 64 16 137/72 (93) 97 Nasal Cannula 3.00 07/25/18 20:10 Nasal Cannula 3.00 07/25/18 19:40 97 Nasal Cannula 3.50 07/25/18 15:47 98.1 63 18 147/68 (94) 98 Nasal Cannula 3.00 I & O 07/26/18 07:00 Intake Total 600 ml Output Total 250 ml Balance 350 ml Height & Weight Height: 5'2.00" Weight: 139lbs. 8.8oz. 63.186240so; 24.1 BMI Method: General Appearance: No Apparent Distress, WD/WN, Chronically ill, Thin, Other (improved) HEENT: PERRL/EOMI, TMs Normal, Normal ENT Inspection, Pharynx Normal, Moist Mucous Membranes Neck: Full Range of Motion, Normal Inspection, Non Tender, Supple Respiratory: Chest Non Tender, Lungs Clear, Normal Breath Sounds, No Accessory Muscle Use, No Respiratory Distress Cardiovascular: Regular Rate, Rhythm, No Edema, No Gallop, No JVD, No Murmur Gastrointestinal: normal bowel sounds, non tender, soft Extremity: Normal Capillary Refill, Normal Inspection, Other (5/5 motor crow LE, NVSI, wound CDI, drain in place) Neurologic/Psychiatric: Alert, Oriented x3, No Motor/Sensory Deficits, Normal Mood/Affect Skin: Normal Color, Warm/Dry Lymphatic: No Adenopathy Results Lab Laboratory Tests 07/25/18 06:54 Assessment/Plan Assessment/Plan s/p thoracolumbar fusion Chronic COPD - Pt is on 3 liters of oxygen at home -SVNS -Monitor -Advair PNA - resolving -Leukocytosis - improving and no fever -S/p Zosyn Hypokalemia, hypophos -replace -Monitor Anemia - post op -Monitor JESSICA,FELICIA M DO Jul 26, 2018 11:53
--- NOTE | 2018-07-26 14:53 | Therapy Group Daily Note ---
Therapy Daily Group Note Patient Education Topic Home Safety Exercises LE Seated Exercise, UE Exercise Session Ratio (pt:therapist): 4:1 Goal of Session: Home Safety Strategies, UE/LE Strengthing Goal Met for this Session: Yes Pt Benefit of Group: Contributions to Others, F/U Use of Strategies @Home, Increased Functional Safety, Increased Functional Strength, Recognition of Peers, Socialization Other/Notes Pt ambulated to OT/PT Group using FWW at [facility]. Group consisted of introductions (name, place born, unsafe home situations), socialization, seated UE/LE exercises, home safety education and home safety category activity. Pt introduced self appropriately and actively listened to peers. Pt verbalized understanding by name strategies for unsafe situations and how to prevent unsafe situations in the home. Pt able to assist others with coming up with ideas and strategies for home safety. Completed UE/LE seated exercises. After therapy, pt returns to room to rest with call light/phone in reach. All needs met in room. Start Time: 13:00 Stop Time: 14:15 Total Billed Treatment Time: 75 Total Billed Treatment 1,GRP LIANNA LOWRY [employer] ST[employer] VENDOR Jul 26, 2018 14:53
--- NOTE | 2018-07-26 16:01 | Cardiology Progress Note ---
Subjective Date Seen by Provider: Jul 26, 2018 Time Seen by Provider: 16:00 Subjective/Events-last exam Patient is in bed, feeling better, no new complaint Review of Systems General: No Chills, No Night Sweats; Fatigue, Malaise; No Appetite, No Other HEENT: No Head Aches, No Visual Changes, No Eye Pain, No Ear Pain, No Dysphasia, No Sinus Congestion, No Post Nasal Drip, No Sore Throat, No Other Pulmonary: Dyspnea; No Cough, No Pleuritic Chest Pain, No Other Cardiovascular: No: Chest Pain, Palpitations, Orthopnea, Paroxysmal Noc. Dyspnea, Edema, Lt Headedness, Other Objective-Cardiology Exam Last Set of Vital Signs Vital Signs 07/25/18 07/26/18 07/26/18 07/26/18 07/26/18 08:10 06:00 07:56 09:00 10:54 Temp 98.5 Pulse 62 Resp 16 B/P (MAP) 149/71 (97) Pulse Ox 94 O2 Delivery Room Air O2 Flow Rate 3.50 FiO2 28 Capillary Refill : I&O Intake and Output 07/26/18 00:00 Intake Total 750 ml Balance 750 ml Intake Oral 750 ml Bladder Scan Volume Amount 65 ml # Voids 5 # Bowel Movements 1 General: Alert, Oriented X3, Cooperative HEENT: Atraumatic, PERRLA Neck: Supple, No JVD, No Thyromegaly Lungs: Normal Air Movement, Other (bilateral rhonchi) Heart: Regular Rate, Normal S1, Normal S2, No Murmurs Abdomen: Normal Bowel Sounds, Soft, No Tenderness, No Hepatosplenomegaly, No Masses Extremities: No Clubbing, No Cyanosis, No Edema, Normal Pulses, No Tenderness/Swelling Skin: No Rashes, No Breakdown, No Significant Lesion Neuro: Normal Speech, Strength at 5/5 X4 Ext, Sensation Intact Psych/Mental Status: Mental Status NL, Mood NL A/P-Cardiology Admission Diagnosis Shortness of breath COPD Coronary artery disease Hypertension Assessment/Plan Shortness of breath, acute exacerbation of COPD. Mild elevation in BNP, echocardiogram is normal, reporting improvement, continue to monitor 2-D echo done on July 21, 2018 showing normal LV size and systolic function, estimated ejection fraction 60 percent, severe pulmonary hypertension with PA pressure of 50 mmHg. Coronary artery disease, reporting cardiac catheterization done about 15 years ago, had a stress test done in September 2016 showing no ischemia or infarction with normal LV size and function. continue to monitor Hypertension, good control, monitor blood pressure Hyperlipidemia, monitor lipids Tobaccoism, has stopped smoking on admission to the hospital, educated on the importance of smoking cessation Strong family history of heart disease. Status post multiple back surgeries, receiving physical therapy. Clinical Quality Measures DVT/VTE Risk/Contraindication: Risk Factor Score Per Nursin RFS Level Per Nursing on Admit: 4+=Very High ORTEGA SCHAEFFER MD Jul 26, 2018 16:01
[2018-07-26] MEDS ORDERED: CYCL10TA9 PO (16:59)
[2018-07-26] MEDS ORDERED: OXYC1TAB87 PO (16:59)
[2018-07-26] MEDS ORDERED: TAMS0.4C98 PO (16:59)
[2018-07-26] MEDS ORDERED: FAMO20TA5 PO (16:59)
[2018-07-26] MEDS ORDERED: FLUT12AE4 IH (16:59)
[2018-07-26] MEDS ORDERED: SENN-20 PO (16:59)
[2018-07-26] MEDS ORDERED: Bethanechol Chl PO (16:59)
[2018-07-26] MEDS ORDERED: IPRA3AMP31 INH (16:59)
[2018-07-26] MEDS ORDERED: ALPR0.254 PO (16:59)
--- NOTE | 2018-07-26 17:02 | D/C HH Face to Face Order ---
D/C Face to Face Orders Instructions for Patient Home Health Patient Instructions/FollowUp: PCP in [address] Hancock as scheduled Physician to follow Patient: PCP Discharge Diet for Home: No Restrictions Patient Problems: Severe COPD s/p extensive spine surgery O2 dependent Goals for Patient: Return to independent living Patient Data-Allergies,Ht & Wt Patient Allergies: Coded Allergies: tramadol (Unverified Allergy, Mild, ITCHING/RASH, 07/04/18) HAS HAD MORPHINE WITH NO ISSUES PER PT hydrocodone (Verified Allergy, Unknown, 07/10/18) Height (Feet): 5 Height (Inches): 2.00 Weight (Pounds): 139 Weight (Ounces): 8.8 Home Health Need/Face to Face Date of Face to Face: Jul 26, 2018 Clinical Findings: Generalized weakness and fatigue, Pain with ambulation, Shortness of breath, Unsteady gait I have seen Pt [id number]: Yes Discharged To: Home Diagnosis/Conditions: Severe COPD s/p extensive spine surgery O2 dependent Patient is Homebound due to: Muscle weakness, Pain w/ambulation, Shortness of breath/distress Homebound Status Due to the above stated illness, injury or surgical procedure (medical condition or diagnosis) and associated clinical findings, the patient is homebound because of his/her inability to leave home except with aid of a supportive device and/or person AND leaving the home requires a considerable and taxing effort or is medically contraindicated. Pt req the following assistanc: [facility] Nursing Orders Home Health Services Order: Nursing Services, [facility]-Evaluate & Treat, Physical Therapy-Evaluate & Treat Home Health Infusion Therapy Line Start Date: July 17, 2018 Certify Stmt I certify that this patient is under my care and that I, a nurse practitioner or a physician; a assistant produce manager working with me, had a face to face encounter that - meets the physician face to face encounter requirements with this patient as dated. MAGDALENE ANDRES DO Jul 26, 2018 17:02
[2018-07-26] MEDS: TAMSULOSIN 0.4 MG (FLOMAX) CAP PO SCH (17:14)
[2018-07-26 17:42] VITALS: BP 146/68
[2018-07-26] MEDS: POLYETHYLENE GLYCOL 17 GM (MIRALAX) PACK PO SCH (20:42)
[2018-07-27] MEDS: oxyCODONE/APAP 5/325MG (PERCOCET 5) TABLET PO PRN (03:37)
[2018-07-27 03:42] VITALS: BP 138/75
[2018-07-27] MEDS: CATHETER FLUSH 10 ML SYR IV SCH ×2 (06:13→14:00)
[2018-07-27] MEDS: MULTIVIT W/MINERALS TAB (THERAGRAN M) PO SCH (06:13)
[2018-07-27] MEDS: RT-ADVAIR HFA 115/21 MCG PER PUFF IH SCH ×2 (07:10→20:16)
[2018-07-27] MEDS: RT-ALBUTEROL/IPRATROPIUM 3 ML (DUONEB) VIAL INH SCH ×4 (07:10→20:16)
[2018-07-27] MEDS: FAMOTIDINE 20 MG (PEPCID) TABLET PO SCH (08:50)
[2018-07-27] MEDS: lisINopril 20 MG (PRINIVIL) TABLET PO SCH (08:50)
[2018-07-27] MEDS: meTOprolol SUCCINATE 100 MG (TOPROL XL) TAB PO SCH (08:50)
[2018-07-27 08:51] VITALS: BP 106/62
[2018-07-27] MEDS: BETHANECHOL 10 MG (URECHOLINE) TAB PO SCH (08:51)
[2018-07-27] MEDS: SENNA W/DOCUSATE (SENOKOT S) TABLET PO SCH (08:51)
[2018-07-27] MEDS: PANTOPRAZOLE 40 MG (PROTONIX) TAB PO SCH (08:51)
--- NOTE | 2018-07-27 09:38 | NUR ---
REFLESHER sent home health referral to [facility], patient accepted for services with start date of
--- NOTE | 2018-07-27 10:57 | Discharge Summary ---
Diagnosis/Chief Complaint Date of Admission July 13, 2018 at 10:00 Date of Discharge Discharge Date: Jul 26, 2018 Discharge Diagnosis Assessment: Extensive spinal surgery POD # 16 uncomplicated AECOPD Pneumonia Anemia-transfusion required Hyponatremia Hypokalemia Smoker Frail status Constipation-resolved Back pain Elevated BNP PHTN Plan: Pain control BM regime successful Potassium with Lasix Abx completd Steroids completed Venofer Transfusion of 1 unit of blood 8 days ago Very guarded prognosis long-term Consultation by Dr Cadena is appreciated DC home tomorrow (1) JUNCTIONAL KYPHOSIS (2) COPD (chronic obstructive pulmonary disease) (3) Hypokalemia (4) Urinary retention (5) Anemia (6) Atelectasis (7) Hyperlipidemia (8) Hyponatremia (9) Leukocytosis (10) GERD (gastroesophageal reflux disease) (11) Hypertension (12) Pneumonia (13) Lumbar spinal stenosis (14) Oxygen dependent (15) Frailty (16) RESPIRATORY FAILURE, UNSP, UNSP W HYPOXIA OR HYPERCAPNIA (17) Smoker (18) Transfusion of blood during current hospitalization (19) Dyspnea (20) Pulmonary hypertension Discharge Summary Discharge Physical Examination Allergies: Coded Allergies: tramadol (Unverified Allergy, Mild, ITCHING/RASH, 07/04/18) HAS HAD MORPHINE WITH NO ISSUES PER PT hydrocodone (Verified Allergy, Unknown, 07/10/18) Vitals & I&Os Vital Signs Date Time Temp Pulse Resp B/P (MAP) Pulse Ox O2 Delivery O2 Flow Rate FiO2 07/27/18 16:18 99.3 71 16 102/59 (73) 95 Nasal Cannula 3.00 07/25/18 08:10 28 General Appearance: Alert, Oriented X3, Cooperative HEENT: Atraumatic, PERRLA Respiratory: Clear to Auscultation, Normal Air Movement Cardiovascular: Regular Rate, Normal S1, Normal S2 Abdominal: Normal Bowel Sounds, Soft Extremities: No Clubbing, No Cyanosis Skin: No Rashes, No Breakdown Neuro: Normal Gait, Normal Speech, Strength at 5/5 X4 Ext Psych/Mental Status: Mental Status NL, Mood NL Hospital Course Was the Problem List Reviewed?: Yes Hospital Course; Pt had an uneventful 15 days hospital course but it was complicated with an episode of pneumonia postoperatively requiring IV steroids IV antibiotics and Pulmonology consultation with Nebulizer treatments and oxygen supplementation. Overall she did have a very long recovery requiring a lot of oxygen a lot rest and recovery in between PT ambulation and a lot of pain medication to recover from the spine surgery. Bowels finally return back to normal after multiple meds and that was a struggle during the hospital course but she was able to obtain normal BM and have good pain control at discharge. She will resume on her chronic home oxygen and she was back to near prior level of functioning with the use of a walker through ambulation and independent ADL's but met criteria for home health. Labs (last 24 hrs) Laboratory Tests 07/14/18 05:09: White Blood Count 7.9, Red Blood Count 2.60L, Hemoglobin 7.9L, Hematocrit 24L, Mean Corpuscular Volume 91, Mean Corpuscular Hemoglobin 30, Mean Corpuscular Hemoglobin Concent 34, Red Cell Distribution Width 13.3, Platelet Count 185, Mean Platelet Volume 9.3, Neutrophils (%) (Auto) 57, Lymphocytes (%) (Auto) 23, Monocytes (%) (Auto) 19H, Eosinophils (%) (Auto) 1, Basophils (%) (Auto) 0, Neutrophils # (Auto) 4.5, Lymphocytes # (Auto) 1.8, Monocytes # (Auto) 1.5H, Eosinophils # (Auto) 0.0, Basophils # (Auto) 0.0, Sodium Level 131L, Potassium Level 2.8L, Chloride Level 97L, Carbon Dioxide Level 24, Anion Gap 10, Blood Urea Nitrogen 13, Creatinine 0.65, Estimat Glomerular Filtration Rate > 60, BUN/Creatinine Ratio 20, Glucose Level 125H, Calcium Level 8.1L, Corrected Calcium 9.0, Phosphorus Level 2.9, Magnesium Level 2.3, Total Bilirubin 0.3, Aspartate Amino Transf (AST/SGOT) 32, Alanine Aminotransferase (ALT/SGPT) 17, Alkaline Phosphatase 54, Total Protein 5.4L, Albumin 2.9L 07/14/18 07:45: Urine Color YELLOW, Urine Clarity CLEAR, Urine pH 5, Urine Specific [place] 1.015L, Urine Protein 2+H, Urine Glucose (UA) NEGATIVE, Urine Ketones 1+H, Urine Nitrite NEGATIVE, Urine Bilirubin NEGATIVE, Urine Urobilinogen NORMAL, Urine Leukocyte Esterase 1+H, Urine RBC (Auto) NEGATIVE, Urine RBC NONE, Urine WBC RARE, Urine Squamous Epithelial Cells 0-2, Urine Crystals NONE, Urine Bacteria TRACE, Urine Casts NONE, Urine Mucus NEGATIVE, Urine Culture Indicated NO 07/15/18 05:00: White Blood Count 6.0, Red Blood Count 3.02L, Hemoglobin 9.2L, Hematocrit 28L, Mean Corpuscular Volume 91, Mean Corpuscular Hemoglobin 30, Mean Corpuscular Hemoglobin Concent 34, Red Cell Distribution Width 13.5, Platelet Count 284, Mean Platelet Volume 9.7, Neutrophils (%) (Auto) 84H, Lymphocytes (%) (Auto) 11L , Monocytes (%) (Auto) 4, Eosinophils (%) (Auto) 0, Basophils (%) (Auto) 0, Neutrophils # (Auto) 5.0, Lymphocytes # (Auto) 0.7L, Monocytes # (Auto) 0.3, Eosinophils # (Auto) 0.0, Basophils # (Auto) 0.0, Sodium Level 137, Potassium Level 3.8, Chloride Level 100, Carbon Dioxide Level 25, Anion Gap 12, Blood Urea Nitrogen 8, Creatinine 0.63, Estimat Glomerular Filtration Rate > 60, BUN/Creatinine Ratio 13, Glucose Level 126H, Calcium Level 9.4, Corrected Calcium 9.8, Total Bilirubin 0.4, Aspartate Amino Transf (AST/SGOT) 31, Alanine Aminotransferase (ALT/SGPT) 22, Alkaline Phosphatase 66, Total Protein 6.7, Albumin 3.5 07/16/18 05:27: White Blood Count 8.4, Red Blood Count 2.47L, Hemoglobin 7.5L, Hematocrit 23L, Mean Corpuscular Volume 92, Mean Corpuscular Hemoglobin 30, Mean Corpuscular Hemoglobin Concent 33, Red Cell Distribution Width 13.9, Platelet Count 305, Mean Platelet Volume 9.4, Neutrophils (%) (Auto) 86H, Lymphocytes (%) (Auto) 8L, Monocytes (%) (Auto) 7, Eosinophils (%) (Auto) 0, Basophils (%) (Auto) 0, Neutrophils # (Auto) 7.2, Lymphocytes # (Auto) 0.6L, Monocytes # (Auto) 0.6, Eosinophils # (Auto) 0.0, Basophils # (Auto) 0.0, Sodium Level 138, Potassium Level 4.6, Chloride Level 107, Carbon Dioxide Level 23, Anion Gap 8, Blood Urea Nitrogen 12, Creatinine 0.62, Estimat Glomerular Filtration Rate > 60, BUN/Cr eatinine Ratio 19, Glucose Level 138H, Calcium Level 8.8, Corrected Calcium 9.5, Total Bilirubin 0.2, Aspartate Amino Transf (AST/SGOT) 25, Alanine Aminotransferase (ALT/SGPT) 23, Alkaline Phosphatase 56, Total Protein 5.7L, Albumin 3.1L 07/17/18 05:40: White Blood Count 11.0, Red Blood Count 2.55L, Hemoglobin 7.9L, Hematocrit 24L, Mean Corpuscular Volume 94, Mean Corpuscular Hemoglobin 31, Mean Corpuscular Hemoglobin Concent 33, Red Cell Distribution Width 14.2, Platelet Count 371, Mean Platelet Volume 8.6, Neutrophils (%) (Auto) 87H, Lymphocytes (%) (Auto) 8L, Monocytes (%) (Auto) 5, Eosinophils (%) (Auto) 0, Basophils (%) (Auto) 0, Neutrophils # (Auto) 9.5H, Lymphocytes # (Auto) 0.9L, Monocytes # (Auto) 0.6, Eosinophils # (Auto) 0.0, Basophils # (Auto) 0.0, Sodium Level 138, Potassium Level 4.5, Chloride Level 106, Carbon Dioxide Level 23, Anion Gap 9, Blood Urea Nitrogen 12, Creatinine 0.60, Estimat Glomerular Filtration Rate > 60, BUN/Creatinine Ratio 20, Glucose Level 130H, Calcium Level 8.7, Corrected Calcium 9.3, Total Bilirubin 0.3, Aspartate Amino Transf (AST/SGOT) 21, Alanine Aminotransferase (ALT/SGPT) 24, Alkaline Phosphatase 50, Total Protein 5.7L, Albumin 3.2 07/18/18 06:05: White Blood Count 13.5H, Red Blood Count 3.17L, Hemoglobin 9.8#L, Hematocrit 29L , Mean Corpuscular Volume 91, Mean Corpuscular Hemoglobin 31, Mean Corpuscular Hemoglobin Concent 34, Red Cell Distribution Width 15.2H, Platelet Count 383, Mean Platelet Volume 8.4, Neutrophils (%) (Auto) 84H, Lymphocytes (%) (Auto) 10L , Monocytes (%) (Auto) 7, Eosinophils (%) (Auto) 0, Basophils (%) (Auto) 0, Neutrophils # (Auto) 11.3H, Lymphocytes # (Auto) 1.3, Monocytes # (Auto) 0.9, Eosinophils # (Auto) 0.0, Basophils # (Auto) 0.0, Sodium Level 136, Potassium Level 3.9, Chloride Level 105, Carbon Dioxide Level 24, Anion Gap 7, Blood Urea Nitrogen 15, Creatinine 0.62, Estimat Glomerular Filtration Rate > 60, BUN/Creatinine Ratio 24, Glucose Level 132H, Calcium Level 8.3L, Corrected Calcium 8.9, Total Bilirubin 0.5, Aspartate Amino Transf (AST/SGOT) 23, Alanine Aminotransferase (ALT/SGPT) 31, Alkaline Phosphatase 58, Total Protein 5.8L, Albumin 3.3 07/19/18 12:40: White Blood Count 14.0H, Red Blood Count 3.58L, Hemoglobin 11.1L, Hematocrit 33L , Mean Corpuscular Volume 92, Mean Corpuscular Hemoglobin 31, Mean Corpuscular Hemoglobin Concent 34, Red Cell Distribution Width 16.2H, Platelet Count 464H, Mean Platelet Volume 8.1, Neutrophils (%) (Auto) 81H, Lymphocytes (%) (Auto) 11L , Monocytes (%) (Auto) 9, Eosinophils (%) (Auto) 0, Basophils (%) (Auto) 0, Neutrophils # (Auto) 11.3H, Lymphocytes # (Auto) 1.5, Monocytes # (Auto) 1.2H, Eosinophils # (Auto) 0.0, Basophils # (Auto) 0.0, Sodium Level 139, Potassium Level 3.4L, Chloride Level 104, Carbon Dioxide Level 23, Anion Gap 12, Blood Urea Nitrogen 14, Creatinine 0.79, Estimat Glomerular Filtration Rate > 60, BUN/Creatinine Ratio 18, Glucose Level 191H, Calcium Level 8.5, Corrected Calcium 8.9, Total Bilirubin 0.4, Aspartate Amino Transf (AST/SGOT) 21, Alanine Aminotransferase (ALT/SGPT) 35, Alkaline Phosphatase 57, Total Protein 6.0L, Albumin 3.5, Neutrophils % (Manual) 70, Lymphocytes % (Manual) 14, Monocytes % (Manual) 11, Band Neutrophils 5, Polychromasia SLIGHT, Poikilocytosis SLIGHT, Anisocytosis SLIGHT, Phosphorus Level 2.4, B-Type Natriuretic Peptide 255.1H 07/21/18 05:45: White Blood Count 12.4H, Red Blood Count 3.48L, Hemoglobin 10.9L, Hematocrit 33L , Mean Corpuscular Volume 93, Mean Corpuscular Hemoglobin 31, Mean Corpuscular Hemoglobin Concent 34, Red Cell Distribution Width 16.8H, Platelet Count 474H, Mean Platelet Volume 8.0, Neutrophils (%) (Auto) 60, Lymphocytes (%) (Auto) 26, Monocytes (%) (Auto) 14H, Eosinophils (%) (Auto) 0, Basophils (%) (Auto) 0, Neutrophils # (Auto) 7.5, Lymphocytes # (Auto) 3.2, Monocytes # (Auto) 1.7H, Eosinophils # (Auto) 0.0, Basophils # (Auto) 0.0, Sodium Level 138, Potassium Level 3.1L, Chloride Level 105, Carbon Dioxide Level 26, Anion Gap 7, Blood Urea Nitrogen 11, Creatinine 0.59L, Estimat Glomerular Filtration Rate > 60, BUN/Creatinine Ratio 19, Glucose Level 84, Calcium Level 8.5, Corrected Calcium 9.1, Total Bilirubin 0.3, Aspartate Amino Transf (AST/SGOT) 19, Alanine Aminotransferase (ALT/SGPT) 28, Alkaline Phosphatase 64, Total Protein 5.5L, Albumin 3.3, Phosphorus Level 2.0L, Magnesium Level 2.0 07/22/18 07:43: Magnesium Level 2.0 07/22/18 07:45: Phosphorus Level 2.0L 07/23/18 07:13: Magnesium Level 1.8, Phosphorus Level 1.7L 07/24/18 05:43: Magnesium Level 2.0, Phosphorus Level 1.7L, White Blood Count 10.5, Red Blood Count 3.34L, Hemoglobin 10.7L, Hematocrit 32L, Mean Corpuscular Volume 96, Mean Corpuscular Hemoglobin 32, Mean Corpuscular Hemoglobin Concent 33, Red Cell Dist ribution Width 17.4H, Platelet Count 379, Mean Platelet Volume 9.0, Neutrophils (%) (Auto) 58, Lymphocytes (%) (Auto) 27, Monocytes (%) (Auto) 14H, Eosinophils (%) (Auto) 0, Basophils (%) (Auto) 0, Neutrophils # (Auto) 6.1, Lymphocytes # (Auto) 2.9, Monocytes # (Auto) 1.5H, Eosinophils # (Auto) 0.0, Basophils # (Auto) 0.0, Sodium Level 136, Potassium Level 3.5L, Chloride Level 107, Carbon Dioxide Level 23, Anion Gap 6, Blood Urea Nitrogen 11, Creatinine 0.58L, Estimat Glomerular Filtration Rate > 60, BUN/Creatinine Ratio 19, Glucose Level 94, Calcium Level 8.3L, Corrected Calcium 8.9, Total Bilirubin 0.3, Aspartate Amino Transf (AST/SGOT) 19, Alanine Aminotransferase (ALT/SGPT) 24, Alkaline Phosphatase 67, Total Protein 5.4L, Albumin 3.2 07/25/18 06:54: White Blood Count 9.3, Red Blood Count 3.32L, Hemoglobin 10.3L, Hematocrit 33L, Mean Corpuscular Volume 98, Mean Corpuscular Hemoglobin 31, Mean Corpuscular Hemoglobin Concent 32, Red Cell Distribution Width 18.0H, Platelet Count 349, Mean Platelet Volume 8.4, Neutrophils (%) (Auto) 55, Lymphocytes (%) (Auto) 31, Monocytes (%) (Auto) 14H, Eosinophils (%) (Auto) 0, Basophils (%) (Auto) 0, Neutrophils # (Auto) 5.1, Lymphocytes # (Auto) 2.9, Monocytes # (Auto) 1.3H, Eosinophils # (Auto) 0.0, Basophils # (Auto) 0.0, Sodium Level 140, Potassium Level 3.7, Chloride Level 109H, Carbon Dioxide Level 23, Anion Gap 8, Blood Urea Nitrogen 11, Creatinine 0.57L, Estimat Glomerular Filtration Rate > 60, BUN/C reatinine Ratio 19, Glucose Level 86, Calcium Level 8.3L, Corrected Calcium 8.9, Phosphorus Level 1.9L, Magnesium Level 1.7L, Total Bilirubin 0.3, Aspartate Amino Transf (AST/SGOT) 14, Alanine Aminotransferase (ALT/SGPT) 21, Alkaline Phosphatase 70, Total Protein 5.1L, Albumin 3.2 Pending Labs Laboratory Tests 07/14/18 05:09: White Blood Count 7.9, Red Blood Count 2.60, Hemoglobin 7.9, Hematocrit 24, Mean Corpuscular Volume 91, Mean Corpuscular Hemoglobin 30, Mean Corpuscular Hemoglobin Concent 34, Red Cell Distribution Width 13.3, Platelet Count 185, Mean Platelet Volume 9.3, Neutrophils (%) (Auto) 57, Lymphocytes (%) (Auto) 23, Monocytes (%) (Auto) 19, Eosinophils (%) (Auto) 1, Basophils (%) (Auto) 0, Neutrophils # (Auto) 4.5, Lymphocytes # (Auto) 1.8, Monocytes # (Auto) 1.5, Eosinophils # (Auto) 0.0, Basophils # (Auto) 0.0, Sodium Level 131, Potassium Level 2.8, Chloride Level 97, Carbon Dioxide Level 24, Anion Gap 10, Blood Urea Nitrogen 13, Creatinine 0.65, Estimat Glomerular Filtration Rate > 60, BUN/Cre atinine Ratio 20, Glucose Level 125, Calcium Level 8.1, Corrected Calcium 9.0, Phosphorus Level 2.9, Magnesium Level 2.3, Total Bilirubin 0.3, Aspartate Amino Transf (AST/SGOT) 32, Alanine Aminotransferase (ALT/SGPT) 17, Alkaline Phosphatase 54, Total Protein 5.4, Albumin 2.9 07/14/18 07:45: Urine Color YELLOW, Urine Clarity CLEAR, Urine pH 5, Urine Specific [place] 1.015, Urine Protein 2+, Urine Glucose (UA) NEGATIVE, Urine Ketones 1+, Urine Nitrite NEGATIVE, Urine Bilirubin NEGATIVE, Urine Urobilinogen NORMAL, Urine Leukocyte Esterase 1+, Urine RBC (Auto) NEGATIVE, Urine RBC NONE, Urine WBC RARE, Urine Squamous Epithelial Cells 0-2, Urine Crystals NONE, Urine Bacteria TRACE, Urine Casts NONE, Urine Mucus NEGATIVE, Urine Culture Indicated NO 07/15/18 05:00: White Blood Count 6.0, Red Blood Count 3.02, Hemoglobin 9.2, Hematocrit 28, Mean Corpuscular Volume 91, Mean Corpuscular Hemoglobin 30, Mean Corpuscular Hemoglobin Concent 34, Red Cell Distribution Width 13.5, Platelet Count 284, Mean Platelet Volume 9.7, Neutrophils (%) (Auto) 84, Lymphocytes (%) (Auto) 11, Monocytes (%) (Auto) 4, Eosinophils (%) (Auto) 0, Basophils (%) (Auto) 0, Neutrophils # (Auto) 5.0, Lymphocytes # (Auto) 0.7, Monocytes # (Auto) 0.3, Eosinophils # (Auto) 0.0, Basophils # (Auto) 0.0, Sodium Level 137, Potassium Level 3.8, Chloride Level 100, Carbon Dioxide Level 25, Anion Gap 12, Blood Urea Nitrogen 8, Creatinine 0.63, Estimat Glomerular Filtration Rate > 60, BUN/Creatinine Ratio 13, Glucose Level 126, Calcium Level 9.4, Corrected Calcium 9.8, Total Bilirubin 0.4, Aspartate Amino Transf (AST/SGOT) 31, Alanine Aminotransferase (ALT/SGPT) 22, Alkaline Phosphatase 66, Total Protein 6.7, Albumin 3.5 07/16/18 05:27: White Blood Count 8.4, Red Blood Count 2.47, Hemoglobin 7.5, Hematocrit 23, Mean Corpuscular Volume 92, Mean Corpuscular Hemoglobin 30, Mean Corpuscular Hemoglobin Concent 33, Red Cell Distribution Width 13.9, Platelet Count 305, Mean Platelet Volume 9.4, Neutrophils (%) (Auto) 86, Lymphocytes (%) (Auto) 8, Monocytes (%) (Auto) 7, Eosinophils (%) (Auto) 0, Basophils (%) (Auto) 0, Neutrophils # (Auto) 7.2, Lymphocytes # (Auto) 0.6, Monocytes # (Auto) 0.6, Eosinophils # (Auto) 0.0, Basophils # (Auto) 0.0, Sodium Level 138, Potassium Level 4.6, Chloride Level 107, Carbon Dioxide Level 23, Anion Gap 8, Blood Urea Nitrogen 12, Creatinine 0.62, Estimat Glomerular Filtration Rate > 60, BUN/Creatinine Ratio 19, Glucose Level 138, Calcium Level 8.8, Corrected Calcium 9.5, Total Bilirubin 0.2, Aspartate Amino Transf (AST/SGOT) 25, Alanine Aminotransferase (ALT/SGPT) 23, Alkaline Phosphatase 56, Total Protein 5.7, Albumin 3.1 07/17/18 05:40: White Blood Count 11.0, Red Blood Count 2.55, Hemoglobin 7.9, Hematocrit 24, Mean Corpuscular Volume 94, Mean Corpuscular Hemoglobin 31, Mean Corpuscular Hemoglobin Concent 33, Red Cell Distribution Width 14.2, Platelet Count 371, Mean Platelet Volume 8.6, Neutrophils (%) (Auto) 87, Lymphocytes (%) (Auto) 8, Monocytes (%) (Auto) 5, Eosinophils (%) (Auto) 0, Basophils (%) (Auto) 0, Neutrophils # (Auto) 9.5, Lymphocytes # (Auto) 0.9, Monocytes # (Auto) 0.6, Eosinophils # (Auto) 0.0, Basophils # (Auto) 0.0, Sodium Level 138, Potassium Level 4.5, Chloride Level 106, Carbon Dioxide Level 23, Anion Gap 9, Blood Urea Nitrogen 12, Creatinine 0.60, Estimat Glomerular Filtration Rate > 60, BUN/Creatinine Ratio 20, Glucose Level 130, Calcium Level 8.7, Corrected Calcium 9.3, Total Bilirubin 0.3, Aspartate Amino Transf (AST/SGOT) 21, Alanine Aminotransferase (ALT/SGPT) 24, Alkaline Phosphatase 50, Total Protein 5.7, Albumin 3.2 07/18/18 06:05: White Blood Count 13.5, Red Blood Count 3.17, Hemoglobin 9.8, Hematocrit 29, Mean Corpuscular Volume 91, Mean Corpuscular Hemoglobin 31, Mean Corpuscular Hemoglobin Concent 34, Red Cell Distribution Width 15.2, Platelet Count 383, Mean Platelet Volume 8.4, Neutrophils (%) (Auto) 84, Lymphocytes (%) (Auto) 10, Monocytes (%) (Auto) 7, Eosinophils (%) (Auto) 0, Basophils (%) (Auto) 0, Neutrophils # (Auto) 11.3, Lymphocytes # (Auto) 1.3, Monocytes # (Auto) 0.9, Eosinophils # (Auto) 0.0, Basophils # (Auto) 0.0, Sodium Level 136, Potassium Level 3.9, Chloride Level 105, Carbon Dioxide Level 24, Anion Gap 7, Blood Urea Nitrogen 15, Creatinine 0.62, Estimat Glomerular Filtration Rate > 60, BUN/Creatinine Ratio 24, Glucose Level 132, Calcium Level 8.3, Corrected Calcium 8.9, Total Bilirubin 0.5, Aspartate Amino Transf (AST/SGOT) 23, Alanine Aminotransferase (ALT/SGPT) 31, Alkaline Phosphatase 58, Total Protein 5.8, Albumin 3.3 07/19/18 12:40: White Blood Count 14.0, Red Blood Count 3.58, Hemoglobin 11.1, Hematocrit 33, Mean Corpuscular Volume 92, Mean Corpuscular Hemoglobin 31, Mean Corpuscular Hemoglobin Concent 34, Red Cell Distribution Width 16.2, Platelet Count 464, Mean Platelet Volume 8.1, Neutrophils (%) (Auto) 81, Lymphocytes (%) (Auto) 11, Monocytes (%) (Auto) 9, Eosinophils (%) (Auto) 0, Basophils (%) (Auto) 0, Neutrophils # (Auto) 11.3, Lymphocytes # (Auto) 1.5, Monocytes # (Auto) 1.2, Eosinophils # (Auto) 0.0, Basophils # (Auto) 0.0, Sodium Level 139, Potassium Level 3.4, Chloride Level 104, Carbon Dioxide Level 23, Anion Gap 12, Blood Urea Nitrogen 14, Creatinine 0.79, Estimat Glomerular Filtration Rate > 60, BUN /Creatinine Ratio 18, Glucose Level 191, Calcium Level 8.5, Corrected Calcium 8.9, Total Bilirubin 0.4, Aspartate Amino Transf (AST/SGOT) 21, Alanine Aminotransferase (ALT/SGPT) 35, Alkaline Phosphatase 57, Total Protein 6.0, Albumin 3.5, Neutrophils % (Manual) 70, Lymphocytes % (Manual) 14, Monocytes % (Manual) 11, Band Neutrophils 5, Polychromasia SLIGHT, Poikilocytosis SLIGHT, A nisocytosis SLIGHT, Phosphorus Level 2.4, B-Type Natriuretic Peptide 255.1 07/21/18 05:45: White Blood Count 12.4, Red Blood Count 3.48, Hemoglobin 10.9, Hematocrit 33, Mean Corpuscular Volume 93, Mean Corpuscular Hemoglobin 31, Mean Corpuscular Hemoglobin Concent 34, Red Cell Distribution Width 16.8, Platelet Count 474, Mean Platelet Volume 8.0, Neutrophils (%) (Auto) 60, Lymphocytes (%) (Auto) 26, Monocytes (%) (Auto) 14, Eosinophils (%) (Auto) 0, Basophils (%) (Auto) 0, Neutrophils # (Auto) 7.5, Lymphocytes # (Auto) 3.2, Monocytes # (Auto) 1.7, Eosinophils # (Auto) 0.0, Basophils # (Auto) 0.0, Sodium Level 138, Potassium Level 3.1, Chloride Level 105, Carbon Dioxide Level 26, Anion Gap 7, Blood Urea Nitrogen 11, Creatinine 0.59, Estimat Glomerular Filtration Rate > 60, BUN/Creatinine Ratio 19, Glucose Level 84, Calcium Level 8.5, Corrected Calcium 9.1, Total Bilirubin 0.3, Aspartate Amino Transf (AST/SGOT) 19, Alanine Aminotransferase (ALT/SGPT) 28, Alkaline Phosphatase 64, Total Protein 5.5, Albumin 3.3, Phosphorus Level 2.0, Magnesium Level 2.0 07/22/18 07:43: Magnesium Level 2.0 07/22/18 07:45: Phosphorus Level 2.0 07/23/18 07:13: Magnesium Level 1.8, Phosphorus Level 1.7 07/24/18 05:43: Magnesium Level 2.0, Phosphorus Level 1.7, White Blood Count 10.5, Red Blood Count 3.34, Hemoglobin 10.7, Hematocrit 32, Mean Corpuscular Volume 96, Mean Corpuscular Hemoglobin 32, Mean Corpuscular Hemoglobin Concent 33, Red Cell Distribution Width 17.4, Platelet Count 379, Mean Platelet Volume 9.0, Neutrophils (%) (Auto) 58, Lymphocytes (%) (Auto) 27, Monocytes (%) (Auto) 14, Eosinophils (%) (Auto) 0, Basophils (%) (Auto) 0, Neutrophils # (Auto) 6.1, Lymphocytes # (Auto) 2.9, Monocytes # (Auto) 1.5, Eosinophils # (Auto) 0.0, Basophils # (Auto) 0.0, Sodium Level 136, Potassium Level 3.5, Chloride Level 107, Carbon Dioxide Level 23, Anion Gap 6, Blood Urea Nitrogen 11, Creatinine 0.58, Estimat Glomerular Filtration Rate > 60, BUN/Creatinine Ratio 19, Glucose Level 94, Calcium Level 8.3, Corrected Calcium 8.9, Total Bilirubin 0.3, Aspartate Amino Transf (AST/SGOT) 19, Alanine Aminotransferase (ALT/SGPT) 24, Alkaline Phosphatase 67, Total Protein 5.4, Albumin 3.2 07/25/18 06:54: White Blood Count 9.3, Red Blood Count 3.32, Hemoglobin 10.3, Hematocrit 33, Mean Corpuscular Volume 98, Mean Corpuscular Hemoglobin 31, Mean Corpuscular Hemoglobin Concent 32, Red Cell Distribution Width 18.0, Platelet Count 349, Mean Platelet Volume 8.4, Neutrophils (%) (Auto) 55, Lymphocytes (%) (Auto) 31, Monocytes (%) (Auto) 14, Eosinophils (%) (Auto) 0, Basophils (%) (Auto) 0, Neutrophils # (Auto) 5.1, Lymphocytes # (Auto) 2.9, Monocytes # (Auto) 1.3, Eosinophils # (Auto) 0.0, Basophils # (Auto) 0.0, Sodium Level 140, Potassium Level 3.7, Chloride Level 109, Carbon Dioxide Level 23, Anion Gap 8, Blood Urea Nitrogen 11, Creatinine 0.57, Estimat Glomerular Filtration Rate > 60, BUN/Creatinine Ratio 19, Glucose Level 86, Calcium Level 8.3, Corrected Calcium 8.9, Phosphorus Level 1.9, Magnesium Level 1.7, Total Bilirubin 0.3, Aspartate Amino Transf (AST/SGOT) 14, Alanine Aminotransferase (ALT/SGPT) 21, Alkaline Phosphatase 70, Total Protein 5.1, Albumin 3.2 Discharge Home Medications: Active Scripts Active Famotidine 20 Mg Tablet 20 Mg PO DAILY Senna-Time S Tablet (Sennosides/Docusate Sodium) 1 Each Tablet 1 Ea PO BID Advair Hfa 115-21 Mcg Inhaler (Fluticasone/Salmeterol) 12 Gm Hfa.aer.ad 2 Puff IH BID@08,20 Percocet 5-325 mg Tablet (Oxycodone HCl/Acetaminophen) 1 Each Tablet 1-2 Tab PO Q4H PRN Cyclobenzaprine HCl 10 Mg Tablet 10 Mg PO TID PRN Flomax (Tamsulosin HCl) 0.4 Mg Cap 0.4 Mg PO DAILY@1800 Iprat-Albut 0.5-3(2.5) mg/3 ml (Ipratropium/Albuterol Sulfate) 3 Ml Ampul.neb 3 Ml INH RTQID [Bethanechol Chl] 10 MG Tab 10 Mg PO DAILY Alprazolam 0.25 Mg Tablet 0.25 Mg PO HS PRN Reported Vitamin B Complex 1 Each Capsule 1 Cap PO DAILY Ventolin Hfa (Albuterol Sulfate) 1 Puff Puff 1-2 Puff IH QID PRN Metoprolol Succinate 100 Mg Tab.er.24h 100 Mg PO DAILY Omeprazole 40 Mg Capsule.dr 40 Mg PO DAILY Lisinopril 20 Mg Tablet 20 Mg PO DAILY Instructions to patient/family Please see electronic discharge instructions given to patient. Diagnosis/Problems Diagnosis/Problems (1) JUNCTIONAL KYPHOSIS Status: Acute (2) COPD (chronic obstructive pulmonary disease) Status: Chronic Qualifiers: Qualified Codes: J44.9 - Chronic obstructive pulmonary disease, unspecified (3) Hypokalemia Status: Acute (4) Urinary retention (5) Anemia Status: Chronic (6) Atelectasis Status: Acute (7) Hyperlipidemia Status: Chronic (8) Hyponatremia Status: Acute (9) Leukocytosis Status: Acute (10) GERD (gastroesophageal reflux disease) Status: Chronic (11) Hypertension Status: Chronic (12) Pneumonia Status: Acute (13) Lumbar spinal stenosis Status: Chronic (14) Oxygen dependent Status: Chronic (15) Frailty Status: Chronic (16) RESPIRATORY FAILURE, UNSP, UNSP W HYPOXIA OR HYPERCAPNIA (17) Smoker Status: Chronic (18) Transfusion of blood during current hospitalization (19) Dyspnea (20) Pulmonary hypertension Clinical Quality Measures DVT/VTE Risk/Contraindication: Risk Factor Score Per Nursin RFS Level Per Nursing on Admit: 4+=Very High MAGDALENE ANDRES DO Jul 27, 2018 10:57
--- NOTE | 2018-07-27 11:39 | Cardiology Progress Note ---
Subjective Date Seen by Provider: Jul 27, 2018 Time Seen by Provider: 11:38 Subjective/Events-last exam Patient in bed, no new complaint. States dyspnea has improved. Being discharged home. Objective-Cardiology Exam Last Set of Vital Signs Vital Signs 07/25/18 07/27/18 07/27/18 07/27/18 08:10 03:42 08:51 10:25 Temp 98.4 Pulse 73 Resp 22 B/P (MAP) 106/62 (77) Pulse Ox 94 O2 Delivery Nasal Cannula O2 Flow Rate 3.00 FiO2 28 Capillary Refill : I&O Intake and Output 07/27/18 00:00 Intake Total 400 ml Output Total 250 ml Balance 150 ml Intake Oral 400 ml Output Urine Total 250 ml # Voids 4 # Bowel Movements 1 General: Alert, Oriented X3, Cooperative HEENT: Atraumatic, PERRLA Neck: Supple, No JVD, No Thyromegaly Lungs: Normal Air Movement, Other (bilateral rhonchi) Heart: Regular Rate, Normal S1, Normal S2, No Murmurs Abdomen: Normal Bowel Sounds, Soft, No Tenderness, No Hepatosplenomegaly, No Masses Extremities: No Clubbing, No Cyanosis, No Edema, Normal Pulses, No Tenderness/Swelling Skin: No Rashes, No Breakdown, No Significant Lesion Neuro: Normal Speech, Strength at 5/5 X4 Ext, Sensation Intact Psych/Mental Status: Mental Status NL, Mood NL A/P-Cardiology Admission Diagnosis Shortness of breath COPD Coronary artery disease Hypertension Assessment/Plan Shortness of breath, acute exacerbation of COPD. Mild elevation in BNP, echocardiogram is normal, reporting improvement, continue to monitor 2-D echo done on July 21, 2018 showing normal LV size and systolic function, estimated ejection fraction 60 percent, severe pulmonary hypertension with PA pressure of 50 mmHg. Coronary artery disease, reporting cardiac catheterization done about 15 years ago, had a stress test done in September 2016 showing no ischemia or infarction with normal LV size and function. continue to monitor Hypertension, good control, monitor blood pressure Hyperlipidemia, monitor lipids Tobaccoism, has stopped smoking on admission to the hospital, educated on the importance of smoking cessation Strong family history of heart disease. Status post multiple back surgeries, receiving physical therapy. Clinical Quality Measures DVT/VTE Risk/Contraindication: Risk Factor Score Per Nursin RFS Level Per Nursing on Admit: 4+=Very High THOMAS PATE Jul 27, 2018 11:39
--- NOTE | 2018-07-27 11:41 | Progress Note-Urology ---
Progress Note-Urology Progress Notes/Assess & Plan Progress/Assessment & Plan CONTINUES WELL CANCINO. STOP URECHOLINE. SEE HER PRN Final Diagnosis URINE RETENTION AJAY MACHUCA MD Jul 27, 2018 11:40
--- NOTE | 2018-07-27 13:16 | Therapy Team Discharge Summary ---
Therapy Discharge Summary Discharge Recommendations Date of Discharge Therapy D/C Recommendations: Physical Therapy Home Care Physical Therapy Patient admitted to ARU s/p spinal fusion. Patient, upon admit, demonstrated modified dependent LOF with bed mobility and transfers. Ambulated short d istances with FWW with frequent recovery periods due to fatigue. Patient MMT bilateral LE presented as 4/5 bilateral LE with 3/5 hip flexion bilaterally. Patient PLOF at home was modified independent LOF with use of 4WW. Patient actively participate with therapies and attained all functional goals set and returned to home with home health intervention. Patient demonstrated modified independent with all bed mobility and transfers and ambulated SBA with FWW, on all planes, distances 175'. Occupational Therapy Decreased Activ Tolerance, Impaired Self-Care Skills PT Care Home Goals Care Home Goals PT Marketing Teacher Goals Time Frame: Aug 03, 2018 Transfers (B,C,W/C) (FIM): 5 (met 07/26/18) Roll Left to Right (QC): 4 (met 07/26/18) Sit to Lying (QC): 4 (met 07/26/18) Lying-Sitting on Side/Bed(QC): 4 (met 07/26/18) Sit to Stand (QC): 4 (met 07/26/18) Chair/Ljs-vw-Mkpze Xfer(QC): 4 (met 07/26/18) Car Transfer (QC): 4 (met 07/26/18) Gait (FIM): 5 (met 07/26/18) Distance: 200' Walk 10 feet (QC): 4 (met 07/26/18) Walk 10ft-Uneven Surface(QC): 4 (met 07/26/18) Walk 50ft with 2 Turns (QC): 4 (met 07/26/18) Walk 150 ft (QC): 4 (met 07/26/18) Gait Level of Assist: 5 (met 07/26/18) Gait Assistive Device: FWW Stairs (FIM): 2 (mt 07/26/18) # of Steps: 4 (met 07/26/18) 1 Step (curb) (QC): 4 (et 07/26/18) 4 Steps (QC): 4 (met 07/26/18) Stairs Level Of Assist: 4 (met 07/26/18) OT Marketing Teacher Goals Marketing Teacher Goals Time Frame: Aug 03, 2018 Eating (FIM): 6 (-07/26/18) Eating (QC): 6 (met-07/26/18) Oral Hygiene (QC): 4 (met-07/26/18) Grooming(FIM): 5 (met-07/26/18) Bathing(FIM): 5 (met-07/26/18) Shower/Bathe Self (QC): 4 (met-07/26/18) Upper Body Dressing(FIM): 5 (met-07/26/18) Upper Body Dressing (QC): 4 (met-07/26/18) Lower Body Dressing(FIM): 5 (met-07/26/18) Lower Body Dressing (QC): 4 (met-07/26/18) On/Off Footwear (QC): 4 (met-07/26/18) Toileting(FIM): 6 (met-07/26/18) Toileting Hygiene (QC): 5 (met-07/26/18) Transfers (B,C,W/C) (FIM): 6 (met-07/26/18) Toilet/Commode Transfer(FIM): 6 (met-07/26/18) Toilet/Commode Transfer (QC): 5 (met-07/26/18) Shower Transfer(FIM): 5 Comprehension(FIM): 6 Expression (FIM): 6 Social Interaction(FIM): 6 Problem Solving(FIM): 6 Memory(FIM): 6 Additional Goals: 1-Demonstrate ADL Tasks, 2-Verbalize Understanding, 3- ImproveStrength/French 1=Demonstrate adherence to instructed precautions during ADL tasks. 2=Patient will verbalize/demonstrate understanding of assistive devices/modifications for ADL. 3=Patient will improve strength/tolerance for activity to enable patient to perform ADL's. Speech Marketing Teacher Goals Care Home Goals Comprehension: 6 Expression: 6 Social Interaction: 6 Problem Solvin Memory: 6 RAMAKRISHNA ALEXANDER PT Jul 27, 2018 13:16
--- NOTE | 2018-07-27 14:33 | NUR ---
VP PLATFORMS met with patient to review team conference summary. As patient is performing all activities with modified independence and respiratory status has improved, team has recommended patient return home tomorrow with home health services for RN, PT and OT. Patient is agreeable to this recommendation as she is eager to discharge. Patient previously utilized [facility] for home health services to request this provider. VP PLATFORMS reviewed IMM and patient choice letter. Patient received notification from her daughter that she is able to provide transport home tomorrow around 6 p.m. VP PLATFORMS will send home health referral. They see discharge records for further information.
[2018-07-27 16:18] VITALS: BP 102/59
[2018-07-27] MEDS: TAMSULOSIN 0.4 MG (FLOMAX) CAP PO SCH (17:15)
--- NOTE | 2018-07-27 19:12 | NUR ---
bedside report received from SHANNAN FERRER, assume care of pt
--- NOTE | 2018-07-27 20:10 | NUR ---
BRUNO CHU demonstrates understanding of discharge instructions and accurately returns instructions upon questioning. Copy of Post-Discharge Instructions and Medication Discharge Instructions given to pt. BRUNO CHU is able to manage continuing needs after discharge with HHC following. Patients belongings returned to pt. Patient discharged from [facility] on 07/27/18 at 2009. BRUNO CHU left floor via w/c, accompanied by family and staff. VS 99.0, 77, 18,124/65 and 100% on room air.
[2018-07-27 20:12] VITALS: BP 124/65
[2018-07-27 20:20] VITALS: BP 124/65
--- NOTE | 2018-07-28 15:13 | Therapy Team Discharge Summary ---
Therapy Discharge Summary Discharge Recommendations Date of Discharge Jul 27, 2018 at 20:10 Therapy D/C Recommendations: Physical Therapy Home Care Occupational Therapy Pt admitted to ARU following spinal fusion. On admission pt required max assist with grooming and LE dressing, mod assist with bathing and toileting, and min assist with toilet transfer. Skilled OT intervention focused on ADL training, transfers, and safety. Pt made good progress with therapy and by discharge is completing bathing and UE dressing with SBA and other ADLs and transfers with modified independence. Pt met OT LTG. Pt discharged home with family. D/C ARU OT. Decreased Activ Tolerance, Impaired Self-Care Skills PT Plastics Sheet Finishing Press Operator Goals Fdc Goals PT Fdc Goals Time Frame: Aug 03, 2018 Transfers (B,C,W/C) (FIM): 5 (met 07/26/18) Roll Left to Right (QC): 4 (met 07/26/18) Sit to Lying (QC): 4 (met 07/26/18) Lying-Sitting on Side/Bed(QC): 4 (met 07/26/18) Sit to Stand (QC): 4 (met 07/26/18) Chair/Rut-vj-Ajtia Xfer(QC): 4 (met 07/26/18) Car Transfer (QC): 4 (met 07/26/18) Gait (FIM): 5 (met 07/26/18) Distance: 200' Walk 10 feet (QC): 4 (met 07/26/18) Walk 10ft-Uneven Surface(QC): 4 (met 07/26/18) Walk 50ft with 2 Turns (QC): 4 (met 07/26/18) Walk 150 ft (QC): 4 (met 07/26/18) Gait Level of Assist: 5 (met 07/26/18) Gait Assistive Device: FWW Stairs (FIM): 2 (mt 07/26/18) # of Steps: 4 (met 07/26/18) 1 Step (curb) (QC): 4 (et 07/26/18) 4 Steps (QC): 4 (met 07/26/18) Stairs Level Of Assist: 4 (met 07/26/18) OT Plastics Sheet Finishing Press Operator Goals Plastics Sheet Finishing Press Operator Goals Time Frame: Aug 03, 2018 Eating (FIM): 6 (met-07/26/18) Eating (QC): 6 (met-07/26/18) Oral Hygiene (QC): 4 (met-07/26/18) Grooming(FIM): 5 (met-07/26/18) Bathing(FIM): 5 (met-07/26/18) Shower/Bathe Self (QC): 4 (met-07/26/18) Upper Body Dressing(FIM): 5 (met-07/26/18) Upper Body Dressing (QC): 4 (met-07/26/18) Lower Body Dressing(FIM): 5 (met-07/26/18) Lower Body Dressing (QC): 4 (met-07/26/18) On/Off Footwear (QC): 4 (met-07/26/18) Toileting(FIM): 6 (met-07/26/18) Toileting Hygiene (QC): 5 (met-07/26/18) Transfers (B,C,W/C) (FIM): 6 (met-07/26/18) Toilet/Commode Transfer(FIM): 6 (met-07/26/18) Toilet/Commode Transfer (QC): 5 (met-07/26/18) Shower Transfer(FIM): 5 Comprehension(FIM): 6 Expression (FIM): 6 Social Interaction(FIM): 6 Problem Solving(FIM): 6 Memory(FIM): 6 Additional Goals: 1-Demonstrate ADL Tasks, 2-Verbalize Understanding, 3-Improv eStrength/French 1=Demonstrate adherence to instructed precautions during ADL tasks. 2=Patient will verbalize/demonstrate understanding of assistive devices/modifications for ADL. 3=Patient will improve strength/tolerance for activity to enable patient to p erform ADL's. Speech Fdc Goals Plastics Sheet Finishing Press Operator Goals Comprehension: 6 Expression: 6 Social Interaction: 6 Problem Solvin Memory: 6 ADITYA JOSE OT Jul 28, 2018 15:12
== END 2018-07-27 20:10 | disposition home health service (06) | DRG 551 ==
PROVIDERS: ADMIT Internal Medicine; ATTEND Internal Medicine
DX: M40.295 Other kyphosis, thoracolumbar region (principal); Z98.1 Arthrodesis status; J18.9 Pneumonia, unspecified organism; J98.11 Atelectasis; E87.1 Hypo-osmolality and hyponatremia; J43.9 Emphysema, unspecified; I10 Essential (primary) hypertension; I27.20 Pulmonary hypertension, unspecified; R33.8 Other retention of urine; D50.9 Iron deficiency anemia, unspecified; I25.10 Atherosclerotic heart disease of native coronary artery without angina pectoris; K59.09 Other constipation; E78.5 Hyperlipidemia, unspecified; K21.9 Gastro-esophageal reflux disease without esophagitis; F17.210 Nicotine dependence, cigarettes, uncomplicated; R54 Age-related physical debility; D72.829 Elevated white blood cell count, unspecified; E87.6 Hypokalemia; R79.89 Other specified abnormal findings of blood chemistry; Z99.81 Dependence on supplemental oxygen
CPT/HCPCS: 36415; 71045; 80053; 81000; 83735; 83880; 84100; 85007; 85025; 85027; 86850; 86900; 86901; 86920; 93306; 94640; 94760

== ENCOUNTER 2019-01-31 08:47 | Outpatient (CLI) | payer MEDICARE, OTHER ==
[~2019-01-31] VITALS: Ht 157.5 cm; Wt 50.0 kg
[~2019-01-31 08:47] MED LIST changes: +Bethanechol Chl PO; +FAMO20TA5 PO; +FLUT12AE4 IH; +IPRA3AMP31 INH; +SENN-20 PO; +TAMS0.4C98 PO
[2019-01-31] MEDS ORDERED: TRIA1TAB3 PO (10:10)
[2019-01-31] MEDS ORDERED: HYDR-3820 PO (10:12)
== END 2019-01-31 10:25 ==
LOC: PREOP 08:47
PROVIDERS: ATTEND Orthopaedic Surgery
DX: Z01.818 Encounter for other preprocedural examination (principal)

== ENCOUNTER 2019-02-05 07:20 | Day surgery (SDC) | payer MEDICARE, OTHER ==
[2019-02-05] VITALS (8 sets, daily range): BP systolic 129–196; BP diastolic 66–92
[~2019-02-05] VITALS: Ht 154.9 cm; Wt 50.0 kg
[~2019-02-05 07:20] MED LIST changes: +HYDR-3820 PO; +TRIA1TAB3 PO
[2019-02-05] MEDS ORDERED: LACTATED RINGERS 1,000 ML IV PRN (07:27)
[2019-02-05] MEDS ORDERED: ceFAZolin 2 GM/50 ML NS 50 ML IV ONE (07:30)
[2019-02-05] MEDS ORDERED: RT-ALBUTEROL SULF 2.5 MG/3 ML PRE-MIX VIAL INH ONE (08:00)
[2019-02-05] MEDS ORDERED: FAMOTIDINE 20MG/2ML IV (PEPCID) IV ONE (08:00)
[2019-02-05] MEDS ORDERED: BUP/EPI 0.5% 1:200,000 (SENSORCAINE) 30 ML VIAL ONE (09:29)
[2019-02-05] MEDS ORDERED: IOPAMIDOL 61% 30 ML (ISOVUE 300) VIAL IV ONE (09:29)
[2019-02-05] MEDS ORDERED: BACITRACIN 100,000 UNIT/NS 1000 ML POUR BOTTLE IR ONE ×2 (09:45)
[2019-02-05] MEDS ORDERED: LIDOCAINE PF 2% 5 ML (XYLOCAINE) VIAL ONE (09:47)
[2019-02-05] MEDS ORDERED: fentaNYL INJECTION 100 MCG/2 ML AMP ONE (09:47)
[2019-02-05] MEDS ORDERED: MIDAZOLAM 2 MG/2 ML (VERSED) VIAL ONE (09:47)
[2019-02-05] MEDS ORDERED: proPOfol 200 MG/20 ML (DIPRIVAN) VIAL IV ONE (09:47)
[2019-02-05] MEDS ORDERED: ROCURONIUM 10 MG/ML 5 ML SYRINGE IV ONE (09:47)
[2019-02-05] MEDS ORDERED: ONDANSETRON 4 MG/2 ML (SDV) Z0FRAN ONE (09:47)
[2019-02-05] MEDS ORDERED: SEVOFLURANE (ULTANE) 15 ML INHAL SOLN ONE (10:39)
[2019-02-05] MEDS ORDERED: DEXAMETHASONE 10 MG/ML (DECADRON) 1 ML VIAL ONE (10:40)
--- NOTE | 2019-02-05 10:54 | Discharge Instructions ---
Discharge Instructions Reconcile Patient Problems Problems Reviewed?: Yes Patient Instructions Goal/Follow Up Appt: follow up with dr alcantara in 2 weeks Patient Instructions: dont bend lift twist push or pull keep incision covered clean and dry [facility]: chest pain shortness of breath new onset weakness, numbness Activity & Diet Discharge Diet: Cardiac Diet Activity as Tolerated: No MEE HICKS Feb 05, 2019 10:54 POS
[2019-02-05] MEDS ORDERED: morphine INJ 10 MG/ML 1ML (SYR OR VIAL) IVP ONE (11:00)
[2019-02-05] MEDS ORDERED: ONDANSETRON 4 MG/2 ML (SDV) Z0FRAN IVP PRN (11:00)
--- NOTE | 2019-02-05 11:54 | Diagnostic Imaging Report ---
INDICATION: Kyphoplasty. COMPARISON: None. TOTAL FLUOROSCOPY TIME: 55 minutes. TOTAL NUMBER OF FLUOROSCOPIC IMAGES SAVED: 3. FINDINGS: Multiple intraoperative image intensifier views of the thoracic spine were obtained during kyphoplasty. Images provided show methylmethacrylate within 2 vertebral bodies of the lower thoracic spine. Post surgical changes of previous posterior fusion are also noted. Please note, the interpreting radiologist was not present during the procedure. IMPRESSION: Fluoroscopic guidance was provided during kyphoplasty. Dictated by: Dictated on workstation # [id number]
--- NOTE | 2019-02-05 18:36 | OPERATIVE REPORT ---
DATE OF SERVICE: 02/05/2019 SURGEON: Richie Hancock DO LEARNING ENGINEER: None. PREOPERATIVE DIAGNOSES: 1. Osteoporosis. 2. Compression fractures T8 and T9. POSTOPERATIVE DIAGNOSES: 1. Osteoporosis. 2. Compression fractures T8 and T9. PROCEDURE PERFORMED: 1. T8-T9 kyphoplasty. 2. T8 vertebral body biopsy. COMPLICATIONS: None. SPECIMENS SENT: T8 vertebral body biopsy. ESTIMATED BLOOD LOSS: None. ANESTHESIA: General endotracheal tube anesthesia with local anesthetic. HISTORY OF PRESENT ILLNESS: The patient is a very pleasant 73-year-old female with a long history of back issues. She had an instrumented fusion at one point presented to me with severe kyphosis and two compression fractures of T8 and T9. Due to her intractable back pain. She wished to have these augmented. DESCRIPTION OF PROCEDURE: The patient was identified by name on wrist band in the preoperative holding area. The operative site was signed, consent was signed. SCDs were placed. Antibiotics were started. She was taken to the operating room theater and placed under general endotracheal tube anesthesia and transferred to the operating room table in the prone position. She was prepped and draped in the usual sterile fashion. A formal timeout was conducted. AP, lateral x-ray were then brought in and centered over the pedicles of T8 and T9. We then passed a [place] introducer to the left pedicle of both vertebra and into the vertebral body. We were able to do a unipedicular approach. We obtained a biopsy of T8 and sent to the lab for routine. Next, we passed a balloon into the vertebra to create a void and will fill that void with cement. We achieved good endplate to endplate fill at both levels. Once finished, AP and lateral x-ray demonstrated good position of the cement. At this point, I irrigated and closed the wounds with a small sticky strip. Applied dressings and took the patient in the supine position to the PACU where she awoke without incident. The plan at this time is to discharge her today. I will see her back in 2 weeks. Job ID: [id number] DocumentID: [id number] Dictated Date: 02/05/2019 13:22:40 Director Executive Communications Date: 02/05/2019 18:36:11 Dictated By: RICHIE HANCOCK DO
--- NOTE | 2019-02-06 16:24 | Anesthesia-General Post-Op ---
General Patient Condition Mental Status/LOC: Same as Preop Cardiovascular: Satisfactory Nausea/Vomiting: Absent Respiratory: Satisfactory Pain: Controlled Complications: Absent Post Op Complications Complications None Follow Up Care/Instructions Patient Instructions None needed. Anesthesia/Patient Condition Patient Condition Patient is already discharged to home. She was seen yesterday after the procedure and she was doing well, no complaints, stable vital signs, no apparent adverse anesthesia problems. PARVIZ ALLISON DO Feb 06, 2019 16:24 POS
== END 2019-02-05 12:25 | disposition home or self-care (01) ==
LOC: SDC 07:20
PROVIDERS: ATTEND Orthopaedic Surgery
DX: M48.54XA Collapsed vertebra, not elsewhere classified, thoracic region, initial encounter for fracture (principal); M81.0 Age-related osteoporosis without current pathological fracture; I10 Essential (primary) hypertension; J43.9 Emphysema, unspecified; K21.9 Gastro-esophageal reflux disease without esophagitis; E78.2 Mixed hyperlipidemia; I25.10 Atherosclerotic heart disease of native coronary artery without angina pectoris; F41.9 Anxiety disorder, unspecified; F17.210 Nicotine dependence, cigarettes, uncomplicated; Z79.899 Other long term (current) drug therapy; Z88.5 Allergy status to narcotic agent; Z90.710 Acquired absence of both cervix and uterus; Z88.8 Allergy status to other drugs, medicaments and biological substances; Z82.49 Family history of ischemic heart disease and other diseases of the circulatory system; Z80.1 Family history of malignant neoplasm of trachea, bronchus and lung
CPT/HCPCS: 87081; 94640